=== PATIENT | male | born 1965 | race Caucasian/White ===

== ENCOUNTER 2017-06-01 08:22 | Inpatient (IN) | payer OTHER ==
--- OUTSIDE RECORDS SUMMARY | 2017-06-01 08:24 | XMS REPORT | Clinical Summary ---
:1965 Author Organization [facility] Address [address] [place] [address] Care Team Providers Name Role Phone Asked, No Pcp Primary Care Provider Unavailable Allergies Active Allergy Reactions Severity Noted Date Comments Penicillin Hives 05/24/2017 Sulfa (Sulfonamide Other (See Comments) 05/24/2017 Tongue swelling Antibiotics) Current Medications Prescription Sig. Disp. Refills Start Date End Date Status zolpidem (AMBIEN) 5 Take 5 mg by Active MG tablet mouth nightly as needed for sleep. esomeprazole Take 40 mg by Active (NexIUM) 40 MG mouth daily capsule before breakfast. ferrous sulfate 325 Take 1 tablet 60 tablet 0 05/26/2017 06/25/2017 Active (65 FE) MG tablet (325 mg total) by mouth 2 (two) times a day with meals for 30 days. lisinopril Take 1 tablet 30 tablet 0 05/26/2017 06/25/2017 Active (PRINIVIL,ZESTRIL) (5 mg total) 5 mg tablet by mouth daily for 30 days. QUEtiapine Take 400 mg by 05/26/2017 Discontinued (SEROquel) 300 MG mouth 2 (two) tablet times a day. QUEtiapine Take 200 mg by 05/26/2017 Discontinued (SEROquel) 200 MG mouth nightly. tablet escitalopram Take 20 mg by 05/26/2017 Discontinued (LEXAPRO) 20 MG mouth 2 (two) tablet times a day. busPIRone (BUSPAR) Take 10 mg by 05/26/2017 Discontinued 10 MG tablet mouth 2 (two) times a day. ibuprofen Take 200 mg by 05/26/2017 Discontinued (ADVIL,MOTRIN) 200 mouth every 6 MG tablet (six) hours as needed for mild pain. lisinopril Take 1 tablet 30 tablet 0 05/26/2017 05/26/2017 Discontinued (PRINIVIL,ZESTRIL) (5 mg total) 5 mg tablet by mouth daily for 30 days. ferrous sulfate 325 Take 1 tablet 60 tablet 0 05/26/2017 05/26/2017 Discontinued (65 FE) MG tablet (325 mg total) by mouth 2 (two) times a day with meals for 30 days. Active Problems Problem Noted Date Intentional drug overdose 05/25/2017 Encounters Date Type Specialty Care Team Description 05/29/2017 Emergency Emergency Medicine 05/24/2017 - Emergency General Internal Nik Sandy Intentional drug overdose, initial encounter (Primary Dx); 05/26/2017 Shavonne Campbell MD Anemia of unknown etiology Martina Russell MD after 05/31/2016 Immunizations Name Dates Previously Given Next Due FLUCELVAX QUAD PF (0.5mL syringe) 05/26/2017 Social History Tobacco Use Types Packs/Day Years Used Date Never Assessed Sex Assigned at Date Recorded Not on file Last Filed Vital Signs Vital Sign Reading Time Taken Blood Pressure 112/65 05/29/2017 2:21 AM CDT Pulse 83 05/29/2017 2:21 AM CDT Temperature 36.4 C (97.6 F) 05/29/2017 2:21 AM CDT Respiratory Rate 16 05/29/2017 2:21 AM CDT Oxygen Saturation 100% 05/29/2017 2:21 AM CDT Inhaled Oxygen Concentration - - Weight - - Height 177.8 cm (5' 10") 05/29/2017 2:21 AM CDT Body Mass Index - - Plan of Treatment Not on file Results Total iron binding capacity (05/25/2017 7:25 AM) Component Value Ref Range Iron level 36 (L) 59 - 158 ug/dL Iron binding capacity 331 200 - 400 ug/dL % Saturation 10.9 (L) 20.0 - 40.0 % Specimen Performing Laboratory Plasma specimen [facility] DEPARTMENT OF PATHOLOGY AND GENOMIC MEDICINE [address] [place] [address] Estimated GFR (05/25/2017 7:25 AM)Only the most recent of3 resultswithin the time period is included. Component Value Ref Range GFR Non Af Amer 34 (A) mL/min/1.73 m2 GFR Af Amer 41 (A) mL/min/1.73 m2 Comment: Chronic kidney disease: <60 mL/min/1.73m2 Kidney failure: <15 mL/min/1.73m2 The estimated GFR is calculated from the IDMS-traceable Modification of Diet in Renal Disease Equation. The accuracy of the calculation is poor when the creatinine is normal. Calculated values >90 mL/min/1.73m2 are not reported. This equation has not been validated in children (<18 years), women, the elderly (>70 years), or ethnic groups other than Caucasians and Americans. Specimen Performing Laboratory Plasma specimen [facility] DEPARTMENT OF PATHOLOGY AND GENOMIC MEDICINE [address] [place] [address] CBC with platelet and differential (05/25/2017 7:25 AM)Only the most recent of3 resultswithin the time period is included. Component Value Ref Range WBC 8.89 4.50 - 11.00 k/uL RBC 3.06 (L) 4.40 - 6.00 m/uL HGB 7.8 (L) 14.0 - 18.0 g/dL HCT 25.4 (L) 41.0 - 51.0 % MCV 83.0 82.0 - 100.0 fL MCH 25.5 (L) 27.0 - 34.0 pg MCHC 30.7 (L) 31.0 - 37.0 g/dL RDW - SD 55.4 (H) 37.0 - 55.0 fL MPV 8.8 8.8 - 13.2 fL Platelet count 187 150 - 400 k/uL Nucleated RBC 0.00 /100 WBC Neutrophils 42.5 39.0 - 69.0 % Lymphocytes 48.0 (H) 25.0 - 45.0 % Monocytes 6.9 0.0 - 10.0 % Eosinophils 2.2 0.0 - 5.0 % Basophils 0.2 0.0 - 1.0 % Immature granulocytes 0.2Comment: "Immature granulocytes" 0.0 - 1.0 % (promyelocytes, myelocytes, metamyelocytes) Specimen Performing Laboratory Blood [facility] DEPARTMENT OF PATHOLOGY AND [facility] MEDICINE [address] [place] [id number] Thyroid stimulating hormone (05/25/2017 7:25 AM)Only the most recent of2 resultswithin the time period is included. Component Value Ref Range TSH 1.22 0.27 - 4.20 uIU/mL Specimen Performing Laboratory Plasma specimen [facility] DEPARTMENT OF PATHOLOGY AND GENOMIC MEDICINE [address] [place] [phone] Folate level (05/25/2017 7:25 AM) Component Value Ref Range Folate 3.3 (L) 4.8 - 24.2 ng/mL Specimen Performing Laboratory Serum [facility] DEPARTMENT OF PATHOLOGY AND [address] [address] Ferritin level (05/25/2017 7:25 AM) Component Value Ref Range Ferritin level 18 (L) 30 - 400 ng/mL Specimen Performing Laboratory Plasma specimen [facility] DEPARTMENT OF PATHOLOGY AND [address] [address] Vitamin B12 level (05/25/2017 7:25 AM) Component Value Ref Range Vitamin B12 250 211 - 946 pg/mL Comment: Significant overlap exists between normal and deficiency states. However, most patients with deficiencies will have Serum B12 <200 pg/mL. Specimen Performing Laboratory Serum [facility] DEPARTMENT OF PATHOLOGY AND [address] [address] Acetaminophen level (05/25/2017 7:25 AM)Only the most recent of2 resultswithin the time period is included. Component Value Ref Range Acetaminophen level <15.0 10.0 - 30.0 ug/mL Comment: Therapeutic 10-30 ug/mL Possible Toxicity 150-200 ug/mL Probable Toxicity >200 ug/mL Specimen Performing Laboratory Plasma specimen [facility] PATHOLOGY AND [address] [address] Comprehensive metabolic panel (05/25/2017 7:25 AM)Only the most recent of2 resultswithin the time period is included. Component Value Ref Range Sodium 141 135 - 148 mEq/L Potassium 4.2 3.5 - 5.0 mEq/L Chloride 106 98 - 112 mEq/L CO2 26 24 - 31 mEq/L Anion gap 9 7 - 15 mEq/L Comment: Starting from June , anion gap calculation no longer incorporates potassium. Please note the change. BUN 17 6 - 20 mg/dL Creatinine 2.1 (H) 0.7 - 1.2 mg/dL Glucose 80 65 - 99 mg/dL Calcium 8.8 8.3 - 10.2 mg/dL Protein 5.7 (L) 6.3 - 8.3 g/dL Comment: [place] 4.6-7.0 g/dL 1 week 4.4-7.6 g/dL 7 months-1year5.1-7.3 g/dL 1-2 years5.6-7.5 g/dL >3 years6.0-8.0 g/dL 18-150 6.3-8.3 g/dL Albumin 2.9 (L) 3.5 - 5.0 g/dL A/G ratio 1.0 0.7 - 3.8 Alkaline phosphatase 91 40 - 129 U/L AST 26 10 - 50 U/L ALT 16 5 - 50 U/L Total bilirubin 0.3 0.0 - 1.2 mg/dL Specimen Performing Laboratory Plasma specimen [facility] DEPARTMENT OF PATHOLOGY AND GENOMIC MEDICINE [address] [place] [address] Urinalysis screen and microscopy, with reflex to culture (05/25/2017 4:10 AM) Component Value Ref Range Specimen site Clean catch Color, UA Straw Appearance, UA Clear Specific gravity, UA 1.006 1.001 - 1.035 pH, UA 7.0 5.0 - 8.5 Protein, UA Negative Negative Glucose, UA Negative Negative Ketones, UA Negative Negative Bilirubin, UA Negative Negative Blood, UA Negative Negative Nitrite, UA Negative Negative Urobilinogen, UA <2.0 <2.0 Leukocyte esterase, UA Negative Negative Epithelial cells, UA <1 /HPF WBC, UA 1 0 - 1 /HPF RBC, UA 1 0 - 1 /HPF Bacteria, UA None seen None seen Yeast, UA None seen Yeast with pseudohyphae, UA None seen Specimen Performing Laboratory Urine [facility] DEPARTMENT OF PATHOLOGY AND [facility] MEDICINE [address] [place] [address] Urine drugs of abuse screen (05/25/2017 4:10 AM) Component Value Ref Range Amphetamine screen, urine Negative Barbiturate screen, urine Negative Benzodiazepine screen, urine Negative Cannabinoid screen, urine Negative Cocaine screen, urine Negative Methadone metabolite (EDDP), urine Negative Opiates screen, urine Negative Oxycodone screen, urine Negative Phencyclidine screen, urine Negative Tricyclic screen, urine Negative Comment: Drug screen minimum concentration of detectability [id number] ng/mL Barbiturates 200 ng/mL Htsdqdpthekkxvs690 ng/mL Hvfdovw051 ng/mL Hpbyemjbd669 ng/mL Iybmnel259 ng/mL Pcwpbvsvj600 ng/mL Phencyclidine 25 ng/mL Xcvvkzvxunct74 ng/mL Necsfsemyg2621 ng/mL Negative test results indicates presumptive evidence of lack of clinically significant drug concentration in this urine specimen. Positive test results are presumptive evidence of clinically significant drug concentration in this urine specimen. Testing performed for medical purposes only. Specimen Performing Laboratory Urine [facility] DEPARTMENT PATHOLOGY AND [address] [address] Urine culture (05/25/2017 4:10 AM) Component Value Ref Range Urine culture SEE COMMENTComment: Bacteriuria screen negative. Specimen Performing Laboratory [facility] PATHOLOGY AND [address] [address] Basic metabolic panel (05/25/2017 4:10 AM) Component Value Ref Range Sodium 140 135 - 148 mEq/L Potassium 4.2 3.5 - 5.0 mEq/L Chloride 105 98 - 112 mEq/L CO2 24 24 - 31 mEq/L Anion gap 11 7 - 15 mEq/L Comment: Starting from June , anion gap calculation no longer incorporates potassium. Please note the change. BUN 18 6 - 20 mg/dL Creatinine 2.0 (H) 0.7 - 1.2 mg/dL Glucose 79 65 - 99 mg/dL Calcium 8.9 8.3 - 10.2 mg/dL Specimen Performing Laboratory Plasma specimen [facility] PATHOLOGY [address] [address] Troponin (05/24/2017 11:30 PM) Component Value Ref Range Troponin <0.30 0.00 - 0.30 ng/mL Comment: 0.30 - 1.49 ng/mlMay indicate increased risk of acute coronary syndrome. >=1.5 ng/mlConsistent with acute myocardial infarction. The diagnostic value of a single normal or non-diagnostic result is questionable.Serial samples at 2-6 hour intervals are required to rule out acute myocardial injury. Specimen Performing Laboratory Plasma specimen [facility] DEPARTMENT OF PATHOLOGY AND [address] [address] Partial thromboplastin time, activated (05/24/2017 11:30 PM) Component Value Ref Range PTT 23.5 23.0 - 36.0 sec Comment: PTT therapeutic range for unfractionated heparin is 61.0-112.0 seconds which corresponds to Anti-Xa 0.3-0.7 U/ml. Specimen Performing Laboratory Blood [facility] PATHOLOGY [address] [address] Prothrombin time with INR (05/24/2017 11:30 PM) Component Value Ref Range Prothrombin time 13.0 12.0 - 15.0 sec INR 1.0 Comment: The International Normalized Ratio (INR) is a therapeutic monitoring tool for patients who are stable on oral anticoagulant therapy. An INR of 2.0-3.0 is suggested for deep vein thrombosis/pulmonary embolism. Specimen Performing Laboratory Blood [facility] DEPARTMENT OF PATHOLOGY AND [facility] MEDICINE [address] [place] [address] Alcohol level, blood (05/24/2017 11:30 PM) Component Value Ref Range Alcohol None Detected mg/dL Comment: Normal None Detected Legal Intoxication in [place]80 mg/dL (0.08%) - Whole Blood Toxic Xhxijnvlatweh499 mg/dL (0.2%) Potentially Jlbdv665 - 500 mg/dL (0.35 - 0.5%) Alcohol percent None Detected % Specimen Performing Laboratory Plasma specimen [facility] DEPARTMENT OF PATHOLOGY AND GENOMIC MEDICINE [address] [place] [address] Salicylate level (05/24/2017 11:30 PM) Component Value Ref Range Salicylate <3.0 3.0 - 30.0 mg/dL Specimen Performing Laboratory Plasma specimen [facility] DEPARTMENT OF PATHOLOGY AND GENOMIC MEDICINE [address] [place] [address] ECG 12 lead (05/24/2017 11:05 PM) Component Value Ref Range Ventricular rate 80 Atrial rate 80 [place] interval 190 QRSD interval 84 QT interval 374 QTC interval 431 P axis 1 33 QRS axis 1 -31 T wave axis 21 EKG impression Normal sinus rhythm-Left axis deviation-Low voltage QRS-Borderline ECG-- Specimen Performing Laboratory [facility] MUSE [address] [place] [address] after 05/31/2016 Insurance Payer Benefit Plan / Group Subscriber ID Type Phone Address MEDICARE MEDICARE PART A AND B xxxxxxxxxx Medicare [place], [place] Home: [address] [place] [phone] [place], [place] [id number]
--- NOTE | 2017-06-01 09:52 | RAD REPORT ---
EXAM DESCRIPTION: VAS - Extremity Venous Uni Ltd - 06/01/2017 9:34 am CLINICAL HISTORY: Right lower extremity pain and swelling COMPARISON: None. TECHNIQUE: Real-time sonographic evaluation of the right lower extremity deep venous systems was per formed. FINDINGS: Common femoral vein shows no thrombus within the lumen. Doppler evaluation shows a normal blood flow pattern with good compression. Echogenic material is present in the femoral vein with inco mplete compression. Popliteal vein and ankle veins on the right show good compression. No additional area of thrombus. Interstitial edema is identifiable. No abscess or drainable fluid collection. IMPRESSION: Acute deep venous thrombosis partially occluding the right femoral vein.
--- NOTE | 2017-06-01 09:55 | RAD REPORT ---
EXAM DESCRIPTION: VAS - Lower Extremity Arterial Bilat - 06/01/2017 9:43 am CLINICAL HISTORY: Leg pain and swelling COMPARISON: None. TECHNIQUE: Waveforms were obtained along the length of each lower extremity. Visual inspection of th e lower extremity arterial tree performed. FINDINGS: A predominantly monophasic waveform pattern is seen throughout the right lower extremity. Soft plaquing changes are present in the right common femoral artery partially narrowing the vessel l umen. The right common femoral artery monophasic waveform pattern was seen proximal to this soft plaq uing. This could indicate significant iliac flow restricting lesion. Left lower extremity shows a triphasic waveform pattern from groin to ankle. No focal stenosis, occlu nahum or flow restricting lesion. Right lower extremity peak systolic velocity values are not substantially different from the left low er extremity. Overall values are diminished relative to the left. IMPRESSION: Right lower extremity monophasic waveform pattern with significant right femoral artery plaquing change. Right leg findings suggest significant right-sided iliac disease as well as the common femoral diseas e. No significant left lower extremity peripheral vascular disease.
--- NOTE | 2017-06-01 10:09 | RAD REPORT ---
EXAM DESCRIPTION: RAD - Chest Single View - 06/01/2017 10:00 am CLINICAL HISTORY: Leg pain and swelling, right leg thrombus COMPARISON: None. TECHNIQUE: AP portable chest image was obtained 0951 hours . FINDINGS: Lungs are clear. Heart and vasculature are normal. No measurable pleural effusion and no p neumothorax. No acute bone findings seen. Right convex thoracic curvature may be true scoliosis or po sitioning artifact. No acute aortic findings suspected. IMPRESSION: No acute cardiopulmonary process.
[2017-06-01 10:20] LABS: Absolute Lymphocytes (CBC) 2.7 K/uL (0.7-4.9); Absolute Monocytes 0.6 K/uL (0.1-1.3); Absolute Neutrophil 5.9 K/uL (1.8-8.0); Basophils % 0.5 % (0-1.3); Eosinophils % 2.4 % (0-4.4); Hematocrit 24.5 % (39.6-49.0); Lymphocytes % 28.3 % (15.3-44.8); MCH 25.9 pg (27.0-35.0); MCV 79.7 fL (80-100); Monocytes % 6.4 % (3.3-12.3); RBC Red Blood Cell Count 3.08 M/uL (4.33-5.43)
[2017-06-01 10:24] LABS: Protime INR 0.91
[2017-06-01 10:28] LABS: Potassium 4.1 mEq/L (3.6-5.0)
[2017-06-01 10:34] LABS: Albumin 3.5 g/dL (3.2-5.5); Bilirubin Direct 0.1 mg/dL (0-0.2); Bilirubin Total 0.5 mg/dL (0.3-1.2); Magnesium 1.6 mg/dL (1.8-2.5)
[2017-06-01 11:00] LABS: Urine Blood NEGATIVE (NEG); Urine Glucose NEGATIVE (NEG); Urine Protein NEGATIVE (NEG)
[2017-06-01] MEDS ORDERED: ENOXAPARIN 40 MG/0.4 ML SQ ONE (11:10)
[2017-06-01] MEDS ORDERED: MAGNESIUM SULFATE 1 gm IVPB 1 GM/100 ML BAG IV ONE ×2 (11:11→17:31)
--- NOTE | 2017-06-01 13:27 | EDPHYS ---
Physician Documentation [facility] Name: Jeovany Buckley Age: 51 yrs Sex: Male : 1965 Arrival Date: 06/01/2017 Time: 08:23 Bed 15 Private MD: ED Physician Octavio Malcolm HPI: 06/01 08:37 This 51 yrs old Male presents to ER via Ambulatory with complaints of Leg cp Swelling. 08:37 The patient presents with swelling, tenderness. The complaints affect the right lower cp leg. 08:37 Context: the patient can fully bear weight, the patient is able to ambulate, with mild cp difficulty. Onset: The symptoms/episode began/occurred 1 week(s) ago. 08:37 Associated signs and symptoms: Pertinent positives: calf tenderness, swelling, cp increased pain with walking, pain improved with rest, Pertinent negatives fever, numbness, warmth, weakness. Treatment prior to arrival includes: no previous treatment. Historical: - Allergies: 08:44 PENICILLINS; tw2 08:44 Sulfa (Sulfonamide Antibiotics); tw2 - Home Meds: 08:44 Lexapro 20 mg Oral tab 1 tab once daily [Active]; tw2 08:57 lisinopril 5 mg Oral tab 1 tab once daily [Active]; buspirone 10 mg Oral tab 1 tab 2 tw2 times per day [Active]; - PMHx: 08:44 Bipolar disorder; Renal Disease; [place]'s Disease; tw2 08:57 Hypertension; tw2 - PSHx: 08:44 None; tw2 - Immunization history:: Adult Immunizations unknown. - Social history:: Smoking status: Patient uses tobacco products, smokes one-half pack cigarettes per day. ROS: 08:41 Eyes: Negative for injury, pain, redness, and discharge. cp 08:41 Constitutional: Negative for body aches, chills, fever, poor PO intake. 08:41 ENT: Negative for drainage from ear(s), ear pain, sore throat, difficulty swallowing, difficulty handling secretions. 08:41 Cardiovascular: Negative for chest pain, palpitations. 08:41 Respiratory: Negative for cough, shortness of breath, wheezing. 08:41 Abdomen/GI: Negative for abdominal pain, nausea, vomiting, and diarrhea. 08:41 Back: Negative for pain at rest, pain with movement, radiated pain. 08:41 MS/extremity: Positive for swelling, tenderness, of the right lower leg, Negative for injury or acute deformity. 08:41 Skin: Negative for discoloration, erythema. 08:41 Neuro: Negative for altered mental status, headache, syncope, near syncope, weakness. 08:41 All other systems are negative. Exam: 08:45 Constitutional: The patient appears in no acute distress, alert, awake, cp non-diaphoretic, non-toxic, well developed, well nourished. 08:45 Head/Face: Normocephalic, atraumatic. Eyes: Pupils equal round and reactive to light, cp extra-ocular motions intact. Lids and lashes normal. Conjunctiva and sclera are non-icteric and not injected. Cornea within normal limits. Periorbital areas with no swelling, redness, or edema. ENT: Nares patent. No nasal discharge, no septal abnormalities noted. Tympanic membranes are normal and external auditory canals are clear. Oropharynx with no redness, swelling, or masses, exudates, or evidence of obstruction, uvula midline. Mucous membranes moist. Neck: Trachea midline, no thyromegaly or masses palpated, and no cervical lymphadenopathy. Supple, full range of motion without nuchal rigidity, or vertebral point tenderness. No Meningismus. Chest/axilla: Normal chest wall appearance and motion. Nontender with no deformity. No lesions are appreciated. 08:45 Cardiovascular: Rate: normal, Rhythm: regular, JVD: is not appreciated. 08:45 Respiratory: the patient does not display signs of respiratory distress, Respirations: normal, no use of accessory muscles, no retractions, no splinting, no tachypnea, labored breathing, is not present, Breath sounds: are clear throughout, no decreased breath sounds, no stridor, no wheezing. 08:45 Abdomen/GI: Inspection: abdomen appears normal, Bowel sounds: active, all quadrants, Palpation: abdomen is soft and non-tender, in all quadrants, Rectal exam: Stool: brown, guaiac negative. 08:45 Back: pain, is absent, ROM is normal. 08:45 Musculoskeletal/extremity: Extremities: grossly normal except: noted in the right lower leg: pain, swelling, tenderness, There is no evidence of deformity. 08:45 Skin: cellulitis, is not appreciated, no rash present. 08:45 Neuro: Orientation: to person, place \T\ time. Mentation: lucid, able to follow commands, Cerebellar function: is grossly normal, Motor: moves all fours, strength is normal, Sensation: no obvious gross deficits. 10:00 ECG was reviewed by the Attending Physician. cp Vital Signs: 08:37 BP 115 / 76; Pulse 99; Resp 17; Temp 98.5(O); Pulse Ox 98% on R/A; Weight 83.01 kg (R); tw2 Height 5 ft. 9 in. (175.26 cm) (R); Pain 10/10; 09:27 BP 111 / 74; Pulse 87; Resp 17; Pulse Ox 100% on R/A; tw2 10:08 BP 112 / 69; Pulse 79; Resp 17; Pulse Ox 100% ; tw2 11:03 BP 105 / 71; Pulse 79; Resp 18; Pulse Ox 100% on R/A; tw2 12:05 BP 101 / 62; Pulse 80; Resp 18; Pulse Ox 100% on R/A; tw2 13:05 BP 104 / 69; Pulse 76; Resp 17; Pulse Ox 98% on R/A; tw2 14:05 BP 106 / 70; Pulse 79; Resp 16; Pulse Ox 98% on R/A; tw2 08:37 Body Mass Index 27.02 (83.01 kg, 175.26 cm) tw2 MDM: 08:27 Patient medically screened. cp 08:38 Differential diagnosis: DVT, cellulitis, dependent edema. cp 10:45 Data reviewed: vital signs, nurses notes, lab test result(s), EKG, radiologic studies, cp doppler, plain films. 11:39 Physician consultation: Tessy Russell MD was called at 11:39, left message on voicemail.cp 06/01 09:43 Order name: Basic Metabolic Panel cp 06/01 09:43 Order name: BNP cp 06/01 09:43 Order name: CBC with Diff cp 06/01 09:43 Order name: LFT's cp 06/01 09:43 Order name: Magnesium cp 06/01 09:43 Order name: PT-INR cp 06/01 09:43 Order name: Ptt, Activated cp 06/01 10:21 Order name: CBC with Automated Diff; Complete Time: 10:23 EDMS 06/01 10:24 Interpretation: Normal except: RBC 3.08; HGB 8.0; HCT 24.5; MCV 79.7; MCH 25.9; RDW cp 19.9; MPV 7.0. 06/01 10:24 Order name: Protime (+INR); Complete Time: 10:25 EDMS 06/01 10:25 Interpretation: Within normal limits. cp 06/01 10:24 Order name: PTT, Activated Partial Thromb; Complete Time: 10:25 EDMS 06/01 10:25 Interpretation: Within normal limits. cp 06/01 10:28 Order name: Basic Metabolic Panel; Complete Time: 10:42 EDMS 06/01 10:43 Interpretation: Normal except: CA 8.2; BUN 26; CRE 1.94; GFR 37. 06/01 10:34 Order name: Liver (Hepatic) Function; Complete Time: 10:42 EDMS 06/01 10:34 Order name: Magnesium; Complete Time: 10:42 EDMS 06/01 10:43 Interpretation: Abnormal: MG 1.6. 06/01 10:51 Order name: Urine Dipstick--Ancillary (enter results) bd 06/01 08:38 Order name: Extremity Venous Uni Ltd cp 06/01 09:00 Order name: Lower Extremity (Artery Uni Ltd) cp 06/01 09:43 Order name: XRAY Chest (1 view) 06/01 09:43 Order name: EKG; Complete Time: 09:44 06/01 09:43 Order name: Cardiac monitoring; Complete Time: 10:14 06/01 09:43 Order name: EKG - Nurse/Tech; Complete Time: 10:14 06/01 09:43 Order name: IV Saline Lock; Complete Time: 10:12 06/01 09:43 Order name: Labs collected and sent; Complete Time: 10:12 06/01 09:43 Order name: O2 Per Protocol; Complete Time: 10:12 06/01 09:52 Order name: VAS; Complete Time: 10:09 EDMS 06/01 09:55 Order name: VAS; Complete Time: 10:09 EDMS 06/01 12:51 Interpretation: Report reviewed. 06/01 10:09 Order name: RAD; Complete Time: 10:23 EDMS 06/01 11:00 Order name: Urine Dipstick-Ancillary; Complete Time: 12:45 EDMS 06/01 11:11 Order name: BNP B-Type Natriuretic Peptide; Complete Time: 12:45 EDMS 06/01 09:43 Order name: O2 Sat Monitoring; Complete Time: 10:12 cp 06/01 09:43 Order name: Urine Dipstick-Ancillary (obtain specimen); Complete Time: 11:05 cp EC:00 Rate is 86 beats/min. Rhythm is regular. AK interval is normal. QRS interval is normal. cp QT interval is normal. No ST changes noted. Interpreted by me. Reviewed by me. Administered Medications: 10:56 Drug: Magnesium Sulfate 1 grams Route: IVPB; Infused Over: 1 hrs; Site: right tw2 antecubital; 11:58 Follow up: Response: No adverse reaction; IV Status: Completed infusion tw2 10:56 Drug: Lovenox 0.5 mg/kg Route: Sub-Q; Site: right lower abdomen; tw2 11:56 Follow up: Response: No adverse reaction tw2 Disposition: 06/01/17 13:25 Hospitalization ordered by Tessy Russell for Observation. Preliminary diagnosis is Acute embolism and thrombosis of femoral vein - Right. - Bed requested for Telemetry/MedSurg (observation). - Status is Observation. tw2 - Condition is Stable. - Problem is new. - Symptoms are unchanged. UTI on Admission? No Addendum: 06/04/2017 19:15 Co-signature as Attending Physician, Octavio Malcolm MD I agree with the assessment and w a plan of care. Signatures: Dispatcher [employer] EDAL Janneth Hermosillo Corey, PA PA cp Wise, Tara, JOSSELINE RN tw2 Octavio Malcolm MD MD va
--- NOTE | 2017-06-01 13:27 | ER ---
Nurse's Notes [facility] Name: Jeovany Buckley Age: 51 yrs Sex: Male : 1965 Arrival Date: 06/01/2017 Time: 08:23 Bed 15 Private MD: Diagnosis: Acute embolism and thrombosis of femoral vein-Right Presentation: 06/01 08:34 Presenting complaint: Patient states: i have been having leg swelling, right leg, for a tw2 bout a week and a half, i have been walking a lot. Transition of care: pt is homeless and has shopping cart with his belongings in the cart with multiple bags hanging off the cart. Onset of symptoms was May 25, 2017. Care prior to arrival: None. 08:34 Method Of Arrival: Ambulatory tw2 08:34 Acuity: JED 3 tw2 Historical: - Allergies: 08:44 PENICILLINS; tw2 08:44 Sulfa (Sulfonamide Antibiotics); tw2 - Home Meds: 08:44 Lexapro 20 mg Oral tab 1 tab once daily [Active]; tw2 08:57 lisinopril 5 mg Oral tab 1 tab once daily [Active]; buspirone 10 mg Oral tab 1 tab 2 tw2 times per day [Active]; - PMHx: 08:44 Bipolar disorder; Renal Disease; [place]'s Disease; tw2 08:57 Hypertension; tw2 - PSHx: 08:44 None; tw2 - Immunization history:: Adult Immunizations unknown. - Social history:: Smoking status: Patient uses tobacco products, smokes one-half pack cigarettes per day. Screenin:53 Abuse screen: Denies threats or abuse. Nutritional screening: No deficits noted. tw2 Tuberculosis screening: No symptoms or risk factors identified. Fall Risk None identified. Assessment: 08:50 Reassessment: pts shopping basket with all belongings locked in utility room, pt tw2 agreeable to this plan. 08:52 General: Appears in no apparent distress. unkempt, Behavior is calm, cooperative, tw2 appropriate for age. Pain: Complains of pain in right celis, anterior aspect of right ankle and dorsum of right foot. Neuro: Level of Consciousness is awake, alert, obeys commands, Oriented to person, place, time, situation. Cardiovascular: Denies chest pain, shortness of breath, Heart tones S1 S2 Capillary refill < 3 seconds Patient's skin is warm and dry. Cardiovascular: Edema is 2+ to right midcalf and right ankle. Respiratory: Airway is patent Respiratory effort is even, unlabored, Respiratory pattern is regular, symmetrical, Breath sounds are clear bilaterally. GI: No signs and/or symptoms were reported involving the gastrointestinal system. Abdomen is flat, Bowel sounds present X 4 quads. : No signs and/or symptoms were reported regarding the genitourinary system. EENT: No signs and/or symptoms were reported regarding the EENT system. Derm: No signs and/or symptoms reported regarding the dermatologic system. Skin is intact, is healthy with good turgor, Skin temperature is warm. Musculoskeletal: No signs and/or symptoms reported regarding the musculoskeletal system. Range of motion: intact in all extremities. 09:27 Reassessment: Patient appears in no apparent distress at this time. No changes from tw2 previously documented assessment. Patient and/or family updated on plan of care and expected duration. Pain level reassessed. Patient is alert, oriented x 3, equal unlabored respirations, skin warm/dry/pink. 10:09 Reassessment: Patient appears in no apparent distress at this time. No changes from tw2 previously documented assessment. Patient and/or family updated on plan of care and expected duration. Pain level reassessed. Patient is alert, oriented x 3, equal unlabored respirations, skin warm/dry/pink. 11:04 Reassessment: Patient appears in no apparent distress at this time. No changes from tw2 previously documented assessment. Patient and/or family updated on plan of care and expected duration. Pain level reassessed. Patient is alert, oriented x 3, equal unlabored respirations, skin warm/dry/pink. 12:05 Reassessment: Patient appears in no apparent distress at this time. No changes from tw2 previously documented assessment. Patient and/or family updated on plan of care and expected duration. Pain level reassessed. Patient is alert, oriented x 3, equal unlabored respirations, skin warm/dry/pink. 13:05 Reassessment: Patient appears in no apparent distress at this time. No changes from tw2 previously documented assessment. Patient and/or family updated on plan of care and expected duration. Pain level reassessed. Patient is alert, oriented x 3, equal unlabored respirations, skin warm/dry/pink. 14:31 Reassessment: Patient appears in no apparent distress at this time. No changes from tw2 previously documented assessment. Patient and/or family updated on plan of care and expected duration. Pain level reassessed. Patient is alert, oriented x 3, equal unlabored respirations, skin warm/dry/pink. pt appears to be sleeping at this time. Vital Signs: 08:37 BP 115 / 76; Pulse 99; Resp 17; Temp 98.5(O); Pulse Ox 98% on R/A; Weight 83.01 kg (R); tw2 Height 5 ft. 9 in. (175.26 cm) (R); Pain 10/10; 09:27 BP 111 / 74; Pulse 87; Resp 17; Pulse Ox 100% on R/A; tw2 10:08 BP 112 / 69; Pulse 79; Resp 17; Pulse Ox 100% ; tw2 11:03 BP 105 / 71; Pulse 79; Resp 18; Pulse Ox 100% on R/A; tw2 12:05 BP 101 / 62; Pulse 80; Resp 18; Pulse Ox 100% on R/A; tw2 13:05 BP 104 / 69; Pulse 76; Resp 17; Pulse Ox 98% on R/A; tw2 14:05 BP 106 / 70; Pulse 79; Resp 16; Pulse Ox 98% on R/A; tw2 08:37 Body Mass Index 27.02 (83.01 kg, 175.26 cm) tw2 ED Course: 08:23 Patient arrived in ED. as 08:27 Kevin Jeff PA is PHCP. cp 08:27 Octavio Malcolm MD is Attending Physician. cp 08:33 Selam Adam, JOSSELINE is Primary Nurse. tw2 08:37 Triage completed. tw2 08:44 Arm band placed on. tw2 08:44 Bed in low position. Call light in reach. Pulse ox on. NIBP on. tw2 08:54 No provider procedures requiring assistance completed. tw2 09:35 Ultrasound completed. Patient tolerated well. Note: us done portable/bedside. lc3 09:54 X-ray completed. Portable x-ray completed in exam room. Patient tolerated procedure ml well. 10:00 EKG done, by retail maintenance technician. reviewed by Kevin GLASER. at1 10:10 Inserted saline lock: 20 gauge in right antecubital area, using aseptic technique. tw2 ,using aseptic technique. per Alexandr Alanis Blood collected. 11:48 Urine Dipstick--Ancillary (enter results) Sent. tw2 11:48 Basic Metabolic Panel Sent. tw2 11:48 BNP Sent. tw2 11:49 CBC with Diff Sent. tw2 11:49 LFT's Sent. tw2 11:49 Magnesium Sent. tw2 11:49 PT-INR Sent. tw2 11:49 Ptt, Activated Sent. tw2 13:24 Tessy Russell MD is Hospitalizing Provider. cp 14:42 Patient admitted, IV remains in place. tw2 Administered Medications: 10:56 Drug: Magnesium Sulfate 1 grams Route: IVPB; Infused Over: 1 hrs; Site: right tw2 antecubital; 11:58 Follow up: Response: No adverse reaction; IV Status: Completed infusion tw2 10:56 Drug: Lovenox 0.5 mg/kg Route: Sub-Q; Site: right lower abdomen; tw2 11:56 Follow up: Response: No adverse reaction tw2 Output: 10:47 Urine: 550ml (Voided); Total: 550ml. tw2 Outcome: 13:25 Decision to Hospitalize by Provider. cp 14:42 Admitted to Med/surg accompanied by nurse, accompanied by tech, via stretcher, room tw2 211, Other with pts personal belongings that are in a shopping cart Report called to JOSSELINE Wall 14:42 Condition: stable 14:42 Instructed on the need for admit. 15:02 Patient left the ED. tw2 Signatures: Lilly Elizabeth Melissa ml gonzales, Amanda, talent development analyst EKG Tat1 Kevin Jeff PA PA cp Shirley Morton Tara, RN RN tw2
--- NOTE | 2017-06-01 14:05 | EKG ---
Test Date: 2017-06-01 Test Time: 09:53:26 Curtain Cleaner: BIMAL MEASUREMENT RESULTS: Intervals: Rate: 86 FL: 174 QRSD: 74 QT: 356 QTc: 426 [place]: P: 12 FL: 174 QRS: -43 T: 24 INTERPRETIVE STATEMENTS: Normal sinus rhythm Left axis deviation Low voltage QRS Abnormal ECG No previous ECG available for comparison Electronically Signed On 06-01-17 14:03:48 CDT by Melvin Roa
[2017-06-01] MEDS ORDERED: ONDANSETRON 4 MG (ODT) TAB PO PRN (15:03)
[2017-06-01 15:36] VITALS: BMI 26.6
--- NOTE | 2017-06-01 17:18 | P.HP ---
Certification for Inpatient Patient admitted to: Observation With expected LOS: <2 Midnights Patient will require the following post-hospital care: None Practitioner: I am a practitioner with admitting privileges, knowledge of patient current condition, hospital course, and medical plan of care. Services: Services provided to patient in accordance with Admission requirements found in Title 42 Section 412.3 of the Code of Federal Regulations Patient History Date of Service: 06/01/17 Primary Care Provider: OOT Reason for admission: leg swelling History of Present Illness: A 51-year-old male with significant past medical history of Kaveh's disease , hypertension, renal disease who presented to the ED complaining of having some right leg pain along with swelling. Patient noted that he is having intermittent claudication like symptoms for about 1-2 weeks and has getting progressively worse. He started noticing that he had some swelling this morning and thus decided to come to the ER. Patient is from [place] and states that he moved here in 2017. He has not establish care with PCP here or does not see anyone regularly either. In ED U/S of the lower extremity was done which was positive for DVT. Allergies Penicillins Adverse Reaction (Verified 06/01/17 13:32) Anaphylaxis Sulfa (Sulfonamide Antibiotics) Adverse Reaction (Verified 06/01/17 13:32) Anaphylaxis Home Medications: Buspirone HCl [Buspar] 10 mg PO BID 06/01/17 Escitalopram [Lexapro*] 20 mg PO BID 06/01/17 Esomeprazole Mag Trihydrate [Nexium] 40 mg PO DAILY 06/01/17 Lisinopril 5 mg PO DAILY 06/01/17 Quetiapine Fumarate [Seroquel] 800 mg PO DAILY 06/01/17 Trazodone [Desyrel] 100 mg PO DAILY 06/01/17 - Past Medical/Surgical History Has patient received pneumonia vaccine in the past: No -: Bipolar Disorder -: Renal Disease -: [place]'s Disease -: Hypertension - Social History Smoking Status: Current every day smoker Review of Systems General: As per HPI Physical Examination - Vital Signs Temperature: 98.5 F Blood Pressure: 106/70 Pulse: 79 Respirations: 16 - Physical Exam General: Alert, In no apparent distress, Oriented x3 HEENT: Atraumatic, PERRLA, Mucous membr. moist/pink, EOMI, Sclerae nonicteric Neck: Supple, 2+ carotid pulse no bruit, No LAD, Without JVD or thyroid abnormality Respiratory: Clear to auscultation bilaterally, Normal air movement Cardiovascular: Regular rate/rhythm, Normal S1 S2 Gastrointestinal: Normal bowel sounds, No tenderness Musculoskeletal: Swelling, Erythema, Tenderness, Warmth, Other (Right leg ) Integumentary: No rashes Neurological: Normal gait, Normal speech, Normal strength at 5/5 x4 extr, Normal tone, Normal affect Lymphatics: No axilla or inguinal lymphadenopathy - Studies Laboratory Data (last 24 hrs) 06/01/17 10:05: PT 10.7, INR 0.91, APTT 24.8 06/01/17 10:05: WBC 9.4, Hgb 8.0 L, Hct 24.5 L, Plt Count 220 06/01/17 10:05: B-Natriuretic Peptide 35 06/01/17 10:05: Sodium 139, Potassium 4.1, BUN 26 H, Creatinine 1.94 H, Glucose 99, Magnesium 1.6 L, Total Bilirubin 0.5, AST 20, ALT 16, Alkaline Phosphatase 84 Assessment and Plan - Problems (Diagnosis) (1) Right leg DVT Current Visit: Yes Status: Acute Plan: Right Femoral Vein DVT -WB lovenox for now -IV abx for possible infection -Elevated the leg Qualifiers: Affected thrombotic vein of extremity: femoral Chronicity: acute Qualified Code(s): I82.411 - Acute embolism and thrombosis of right femoral vein (2) PAD (peripheral artery disease) Current Visit: Yes Status: Acute Plan: Sever PAD noted in the right leg with intermitted Claudication -Anticoagulation with Lovenox for now -Will need to f/u with Vascular Surgeon OP for further care. (3) HTN (hypertension) Current Visit: Yes Status: Chronic Qualifiers: Hypertension type: essential hypertension Qualified Code(s): I10 - Essential (primary) hypertension (4) [place] disease Current Visit: Yes Status: Chronic Discharge Plan: Home Plan to discharge in: 48 Hours - Advance Directives Does patient have a Living Will: No Does patient have a Durable POA for Healthcare: No - Code Status/Comfort Care Code Status Assessed: Yes Critical Care: No
[2017-06-01 19:00] LABS: Urine Appearance CLEAR; Urine Bilirubin NEGATIVE (NEG); Urine Blood NEGATIVE (NEG); Urine Color YELLOW; Urine Glucose NEGATIVE (NEG); Urine Protein NEGATIVE (NEG); Urine Specific Gravity <=1.005 (1.005-1.030); Urine Urobilinogen 0.2 mg/dL (0.2-1.0)
[2017-06-01 19:07] LABS: Urine Microscopic Reflex NO UMIC
[2017-06-01] MEDS ORDERED: HOME MED 1 EA UNK (Buspirone Hcl [Buspar] 10 MG) PO SCH (21:00)
[2017-06-01] MEDS: ESCITALOPRAM 20 MG TAB PO SCH (22:02)
[2017-06-01] MEDS: BUSPIRONE HCL 5 MG TABLET PO SCH (22:02)
[2017-06-01] MEDS: ENOXAPARIN 80 MG/0.8 ML SQ SCH (22:03)
[2017-06-02 05:39] LABS: Absolute Lymphocytes (CBC) 3.3 K/uL (0.7-4.9); Absolute Monocytes 0.5 K/uL (0.1-1.3); Basophils % 0.5 % (0-1.3); Eosinophils % 3.2 % (0-4.4); Lymphocytes % 46.4 % (15.3-44.8); MCH 25.9 pg (27.0-35.0); MCV 81.2 fL (80-100); MPV 7.5 fL (7.6-11.3); Monocytes % 7.4 % (3.3-12.3); RBC Red Blood Cell Count 3.07 M/uL (4.33-5.43)
[2017-06-02 05:44] LABS: Albumin 3.3 g/dL (3.2-5.5); Bilirubin Total 0.6 mg/dL (0.3-1.2); Magnesium 2.3 mg/dL (1.8-2.5); Phosphorus 4.2 mg/dL (2.5-4.3); Potassium 4.8 mEq/L (3.6-5.0); Protein, Total 5.5 g/dL (6.0-8.3)
[2017-06-02] MEDS: PANTOPRAZOLE 40MG TABLET PO SCH (06:34)
[2017-06-02 07:01] LABS: Anisocytosis 1+; Blood Morphology Comment NOTED (NOT SEEN); Macrocytosis SLIGHT; Ovalocytes 1+; Platelet Estimate ADEQ
[2017-06-02] MEDS: ENOXAPARIN 80 MG/0.8 ML SQ SCH ×3 (09:00→20:31)
[2017-06-02] MEDS ORDERED: QUETIAPINE FUMARATE 800 MG PO SCH (09:00)
[2017-06-02] MEDS ORDERED: HOME MED 1 EA UNK (Esomeprazole Mag Trihydrate [Nexium] 40 MG) PO SCH (09:00)
[2017-06-02] MEDS ORDERED: QUETIAPINE 100MG TAB PO SCH (09:00)
[2017-06-02] MEDS: BUSPIRONE HCL 5 MG TABLET PO SCH ×2 (09:47→20:31)
[2017-06-02] MEDS: ESCITALOPRAM 20 MG TAB PO SCH ×2 (09:47→20:31)
[2017-06-02] MEDS: LISINOPRIL 5 MG TAB PO SCH (09:47)
--- NOTE | 2017-06-02 16:28 | P.PN ---
Subjective Date of Service: 06/02/17 Primary Care Provider: STAN Chief Complaint: leg swelling Pt seen and examined at bedside with RN. Case discussed with CM. No c/o overnight. Has been doing well overall. Review of Systems 10-point ROS is otherwise unremarkable Physical Examination - Vital Signs Temperature: 97.6 F Blood Pressure: 110/56 Pulse: 75 Respirations: 18 Pulse Ox (%): 100 - Physical Exam General: Alert, In no apparent distress, Oriented x3 HEENT: Atraumatic, PERRLA, EOMI Neck: Supple, JVD not distended Respiratory: Clear to auscultation bilaterally, Normal air movement Cardiovascular: Regular rate/rhythm, Normal S1 S2 Gastrointestinal: Normal bowel sounds, No tenderness Musculoskeletal: No tenderness Integumentary: No rashes Neurological: Normal speech, Normal tone, Normal affect Lymphatics: No axilla or inguinal lymphadenopathy - Studies Medications List Reviewed: Yes Assessment & Plan - Problems (Diagnosis) (1) Right leg DVT Onset Date: 06/02/17 Current Visit: Yes Status: Acute Plan: Right Femoral Vein DVT -WB lovenox for now -Coumadin started. Qualifiers: Affected thrombotic vein of extremity: femoral Chronicity: acute Qualified Code(s): I82.411 - Acute embolism and thrombosis of right femoral vein (2) PAD (peripheral artery disease) Onset Date: 06/02/17 Current Visit: Yes Status: Acute Plan: Sever PAD noted in the right leg with intermitted Claudication -Anticoagulation with Lovenox for now -Will need to f/u with Vascular Surgeon OP for further care. (3) HTN (hypertension) Onset Date: 06/02/17 Current Visit: Yes Status: Chronic Qualifiers: Hypertension type: essential hypertension Qualified Code(s): I10 - Essential (primary) hypertension (4) [place] disease Onset Date: 06/02/17 Current Visit: Yes Status: Chronic Discharge Plan: Home Plan to discharge in: 48 Hours - Code Status/Comfort Care Code Status Assessed: Yes Critical Care: No
[2017-06-02] MEDS: WARFARIN SODIUM 2.5 MG TAB PO SCH (17:12)
[2017-06-02] MEDS: QUETIAPINE 100MG TAB PO SCH (20:31)
[2017-06-03 05:23] LABS: Absolute Lymphocytes (CBC) 3.5 K/uL (0.7-4.9); Absolute Monocytes 0.4 K/uL (0.1-1.3); Absolute Neutrophil 2.9 K/uL (1.8-8.0); Basophils % 0.3 % (0-1.3); Eosinophils % 2.2 % (0-4.4); Hematocrit 25.8 % (39.6-49.0); Lymphocytes % 49.6 % (15.3-44.8); MCH 25.6 pg (27.0-35.0); MCV 81.3 fL (80-100); MPV 7.4 fL (7.6-11.3); Monocytes % 6.1 % (3.3-12.3); RBC Red Blood Cell Count 3.17 M/uL (4.33-5.43)
[2017-06-03 05:27] LABS: Protime INR 1.02
[2017-06-03 05:45] LABS: Albumin 3.3 g/dL (3.2-5.5); Bilirubin Total 0.5 mg/dL (0.3-1.2); Magnesium 2.3 mg/dL (1.8-2.5); Phosphorus 3.2 mg/dL (2.5-4.3); Potassium 4.5 mEq/L (3.6-5.0); Protein, Total 5.5 g/dL (6.0-8.3)
[2017-06-03] MEDS: ESCITALOPRAM 20 MG TAB PO SCH ×2 (08:41→21:59)
[2017-06-03] MEDS: BUSPIRONE HCL 5 MG TABLET PO SCH ×2 (08:41→21:59)
[2017-06-03] MEDS: PANTOPRAZOLE 40MG TABLET PO SCH (08:41)
[2017-06-03] MEDS: ENOXAPARIN 80 MG/0.8 ML SQ SCH ×2 (08:41→22:00)
[2017-06-03] MEDS: LISINOPRIL 5 MG TAB PO SCH (08:41)
--- NOTE | 2017-06-03 12:08 | P.PN ---
Subjective Date of Service: 06/03/17 Primary Care Provider: STAN Chief Complaint: leg swelling Pt seen and examined at bedside with RN. Case discussed with CM. No c/o overnight. Has been doing well overall. Awaiting therapeutic INR. Review of Systems 10-point ROS is otherwise unremarkable Physical Examination - Vital Signs Temperature: 97.4 F Blood Pressure: 89/52 Pulse: 78 Respirations: 17 Pulse Ox (%): 95 - Physical Exam General: Alert, In no apparent distress, Oriented x3 HEENT: Atraumatic, PERRLA, EOMI Neck: Supple, JVD not distended Respiratory: Clear to auscultation bilaterally, Normal air movement Cardiovascular: Regular rate/rhythm, Normal S1 S2 Gastrointestinal: Normal bowel sounds, No tenderness Musculoskeletal: No tenderness Integumentary: No rashes Neurological: Normal speech, Normal tone, Normal affect Lymphatics: No axilla or inguinal lymphadenopathy - Studies Medications List Reviewed: Yes Assessment & Plan - Problems (Diagnosis) (1) Right leg DVT Onset Date: 06/02/17 Current Visit: Yes Status: Acute Plan: Right Femoral Vein DVT -WB lovenox for now -Coumadin started. -Awaiting therapuetic INR. -Pt to followup with [facility] for further care. Qualifiers: Affected thrombotic vein of extremity: femoral Chronicity: acute Qualified Code(s): I82.411 - Acute embolism and thrombosis of right femoral vein (2) PAD (peripheral artery disease) Onset Date: 06/02/17 Current Visit: Yes Status: Acute Plan: Sever PAD noted in the right leg with intermitted Claudication -Anticoagulation with Lovenox for now -Will need to f/u with Vascular Surgeon OP for further care. (3) HTN (hypertension) Onset Date: 06/02/17 Current Visit: Yes Status: Chronic Qualifiers: Hypertension type: essential hypertension Qualified Code(s): I10 - Essential (primary) hypertension (4) [place] disease Onset Date: 06/02/17 Current Visit: Yes Status: Chronic Discharge Plan: Home Plan to discharge in: 24 Hours - Code Status/Comfort Care Code Status Assessed: Yes Critical Care: No
[2017-06-03] MEDS: WARFARIN SODIUM 2.5 MG TAB PO SCH (16:15)
[2017-06-03] MEDS: QUETIAPINE 100MG TAB PO SCH (21:59)
[2017-06-04 05:26] LABS: Absolute Monocytes 0.5 K/uL (0.1-1.3); Absolute Neutrophil 3.7 K/uL (1.8-8.0); Basophils % 0.3 % (0-1.3); Eosinophils % 2.7 % (0-4.4); Hematocrit 27.1 % (39.6-49.0); Lymphocytes % 40.1 % (15.3-44.8); MCH 25.8 pg (27.0-35.0); MCV 80.3 fL (80-100); MPV 7.4 fL (7.6-11.3); Monocytes % 6.5 % (3.3-12.3); RBC Red Blood Cell Count 3.37 M/uL (4.33-5.43)
[2017-06-04 05:27] LABS: Protime INR 0.99
[2017-06-04 05:53] LABS: Albumin 3.4 g/dL (3.2-5.5); Bilirubin Total 0.4 mg/dL (0.3-1.2); Phosphorus 3.8 mg/dL (2.5-4.3); Potassium 4.8 mEq/L (3.6-5.0); Protein, Total 5.9 g/dL (6.0-8.3)
[2017-06-04] MEDS: LISINOPRIL 5 MG TAB PO SCH (09:00)
[2017-06-04] MEDS: BUSPIRONE HCL 5 MG TABLET PO SCH ×2 (09:01→20:26)
[2017-06-04] MEDS: ESCITALOPRAM 20 MG TAB PO SCH ×2 (09:01→20:27)
[2017-06-04] MEDS: PANTOPRAZOLE 40MG TABLET PO SCH (09:01)
[2017-06-04] MEDS: ENOXAPARIN 80 MG/0.8 ML SQ SCH ×2 (09:01→20:27)
--- NOTE | 2017-06-04 12:35 | P.PN ---
Subjective Date of Service: 06/04/17 Primary Care Provider: STAN Chief Complaint: leg swelling Pt seen and examined at bedside with RN. Case discussed with CM. No c/o overnight. Has been doing well overall. Awaiting therapeutic INR. Review of Systems 10-point ROS is otherwise unremarkable Physical Examination - Vital Signs Temperature: 98.1 F Blood Pressure: 91/53 Pulse: 73 Respirations: 18 Pulse Ox (%): 100 - Physical Exam General: Alert, In no apparent distress, Oriented x3 HEENT: Atraumatic, PERRLA, EOMI Neck: Supple, JVD not distended Respiratory: Clear to auscultation bilaterally, Normal air movement Cardiovascular: Regular rate/rhythm, Normal S1 S2 Gastrointestinal: Normal bowel sounds, No tenderness Musculoskeletal: No tenderness Integumentary: No rashes Neurological: Normal speech, Normal tone, Normal affect Lymphatics: No axilla or inguinal lymphadenopathy - Studies Laboratory Data (last 24 hrs) 06/04/17 04:41: PT 11.7, INR 0.99 06/04/17 04:41: Sodium 141, Potassium 4.8, BUN 25 H, Creatinine 1.80 H, Glucose 86, Phosphorus 3.8, Magnesium 2.0, Total Bilirubin 0.4, AST 18, ALT 16, Alkaline Phosphatase 85 06/04/17 04:41: WBC 7.4, Hgb 8.7 L, Hct 27.1 L, Plt Count 215 Medications List Reviewed: Yes Assessment & Plan - Problems (Diagnosis) (1) Right leg DVT Onset Date: 06/02/17 Current Visit: Yes Status: Acute Plan: Right Femoral Vein DVT -WB lovenox for now -Coumadin started. -Awaiting therapuetic INR. -Pt to followup with [facility] for further care. Qualifiers: Affected thrombotic vein of extremity: femoral Chronicity: acute Qualified Code(s): I82.411 - Acute embolism and thrombosis of right femoral vein (2) PAD (peripheral artery disease) Onset Date: 06/02/17 Current Visit: Yes Status: Acute Plan: Sever PAD noted in the right leg with intermitted Claudication -Anticoagulation with Lovenox for now -Will need to f/u with Vascular Surgeon OP for further care. (3) HTN (hypertension) Onset Date: 06/02/17 Current Visit: Yes Status: Chronic Qualifiers: Hypertension type: essential hypertension Qualified Code(s): I10 - Essential (primary) hypertension (4) [place] disease Onset Date: 06/02/17 Current Visit: Yes Status: Chronic (5) Acute renal failure Current Visit: Yes Status: Acute Plan: BUN/CR improving today. -IV fluids and avoid nephrotoxic agents. Qualifiers: Acute renal failure type: unspecified Qualified Code(s): N17.9 - Acute kidney failure, unspecified (6) Anemia Current Visit: Yes Status: Chronic Plan: Most likely Iron def or ARF -Will continue to monitor hgb Qualifiers: Anemia type: iron deficiency Iron deficiency anemia type: unspecified iron deficiency Qualified Code(s): D50.9 - Iron deficiency anemia, unspecified
[2017-06-04] MEDS: ACETAMINOPHEN 500 MG TAB PO PRN (12:55)
[2017-06-04] MEDS: WARFARIN SODIUM 2.5 MG TAB PO SCH (16:09)
[2017-06-04] MEDS: QUETIAPINE 100MG TAB PO SCH (20:26)
[2017-06-05 05:29] LABS: Protime INR 1.01
[2017-06-05] MEDS: LISINOPRIL 5 MG TAB PO SCH (09:00)
[2017-06-05] MEDS: PANTOPRAZOLE 40MG TABLET PO SCH (09:08)
[2017-06-05] MEDS: BUSPIRONE HCL 5 MG TABLET PO SCH ×2 (09:08→20:06)
[2017-06-05] MEDS: ESCITALOPRAM 20 MG TAB PO SCH ×2 (09:08→20:07)
[2017-06-05] MEDS: ENOXAPARIN 80 MG/0.8 ML SQ SCH ×2 (09:08→20:05)
[2017-06-05] MEDS: ACETAMINOPHEN 500 MG TAB PO PRN ×3 (09:12→20:05)
[2017-06-05 10:11] VITALS: O2SAT 100
--- NOTE | 2017-06-05 10:57 | P.PN ---
Subjective Date of Service: 06/05/17 Primary Care Provider: STAN Chief Complaint: leg swelling Pt seen and examined at bedside with RN. Case discussed with CM. No c/o overnight. Has been doing well overall. Awaiting therapeutic INR. Review of Systems General: As per HPI Physical Examination - Vital Signs Temperature: 98.0 F Blood Pressure: 91/58 Pulse: 95 Respirations: 16 Pulse Ox (%): 100 - Physical Exam General: Alert, In no apparent distress HEENT: Atraumatic, PERRLA, EOMI Neck: Supple, JVD not distended Respiratory: Clear to auscultation bilaterally, Normal air movement Cardiovascular: Regular rate/rhythm, Normal S1 S2 Gastrointestinal: Normal bowel sounds, No tenderness Musculoskeletal: No tenderness Integumentary: No rashes Neurological: Normal speech, Normal tone, Normal affect Lymphatics: No axilla or inguinal lymphadenopathy - Studies Medications List Reviewed: Yes Assessment & Plan - Problems (Diagnosis) (1) Right leg DVT Onset Date: 06/02/17 Current Visit: Yes Status: Acute Plan: Right Femoral Vein DVT -WB lovenox for now -Coumadin started. -Awaiting therapuetic INR. -Pt to followup with [facility] for further care. Qualifiers: Affected thrombotic vein of extremity: femoral Chronicity: acute Qualified Code(s): I82.411 - Acute embolism and thrombosis of right femoral vein (2) PAD (peripheral artery disease) Onset Date: 06/02/17 Current Visit: Yes Status: Acute Plan: Sever PAD noted in the right leg with intermitted Claudication -Anticoagulation with Lovenox for now -Will need to f/u with Vascular Surgeon OP for further care. (3) HTN (hypertension) Onset Date: 06/02/17 Current Visit: Yes Status: Chronic Qualifiers: Hypertension type: essential hypertension Qualified Code(s): I10 - Essential (primary) hypertension (4) [place] disease Onset Date: 06/02/17 Current Visit: Yes Status: Chronic (5) Acute renal failure Current Visit: Yes Status: Acute Plan: BUN/CR improving today. -IV fluids and avoid nephrotoxic agents. Qualifiers: Acute renal failure type: unspecified Qualified Code(s): N17.9 - Acute kidney failure, unspecified (6) Anemia Current Visit: Yes Status: Chronic Plan: Most likely Iron def or ARF -Will continue to monitor hgb Qualifiers: Anemia type: iron deficiency Iron deficiency anemia type: unspecified iron deficiency Qualified Code(s): D50.9 - Iron deficiency anemia, unspecified
[2017-06-05] MEDS: WARFARIN SODIUM 2.5 MG TAB PO SCH (18:02)
[2017-06-05] MEDS: QUETIAPINE 100MG TAB PO SCH (20:06)
[2017-06-06 05:13] LABS: Protime INR 1.01
[2017-06-06] MEDS: LISINOPRIL 5 MG TAB PO SCH (09:00)
[2017-06-06] MEDS ORDERED: WARFARIN SODIUM 5 MG TAB PO SCH (10:00)
[2017-06-06 10:03] VITALS: BP 91/55; TEMP 97.6
--- NOTE | 2017-06-06 14:33 | P.DS ---
Admission Date: 06/04/17 Discharge Date: 06/06/17 Primary Care Provider: STAN Disposition: AMA-LEFT AGAINST MEDICAL ADVIC Reason for Admission: leg swelling - Problems (1) Right leg DVT Onset Date: 06/02/17 Status: Acute Qualifiers: Affected thrombotic vein of extremity: femoral Chronicity: acute Qualified Code(s): I82.411 - Acute embolism and thrombosis of right femoral vein (2) PAD (peripheral artery disease) Onset Date: 06/02/17 Status: Acute (3) HTN (hypertension) Onset Date: 06/02/17 Status: Chronic Qualifiers: Hypertension type: essential hypertension Qualified Code(s): I10 - Essential (primary) hypertension (4) [place] disease Onset Date: 06/02/17 Status: Chronic (5) Acute renal failure Status: Acute Qualifiers: Acute renal failure type: unspecified Qualified Code(s): N17.9 - Acute kidney failure, unspecified (6) Anemia Status: Chronic Qualifiers: Anemia type: iron deficiency Iron deficiency anemia type: unspecified iron deficiency Qualified Code(s): D50.9 - Iron deficiency anemia, unspecified Brief History of Present Illness: A 51-year-old male with significant past medical history of [place]'s disease , hypertension, renal disease who presented to the ED complaining of having some right leg pain along with swelling. Patient noted that he is having intermittent claudication like symptoms for about 1-2 weeks and has getting progressively worse. He started noticing that he had some swelling this morning and thus decided to come to the ER. Patient is from [place] and states that he moved here in 2017. He has not establish care with PCP here or does not see anyone regularly either. In ED U/S of the lower extremity was done which was positive for DVT. Hospital Course: Pt was admitted to the Hospital for Right Leg DVT, ARF and Anemia For Right Leg DVT pt was started on Coumadin 2.5mg Daily and we were awaiting INR to be therapeutic. Today INR was 1.01. Pt however was going doing down to smoke and was educated on smoking cessation and was asked not to smoke while here in the hospital given his DVT and severe PAD. Pt demonstrated understanding , however in 30mins pt left AMA. For his ARF pt remained on IV fluids and cr function did improve and no further intervention were needed. For his Anemia which was most likely 2/2 to iron def. Pt h/h stayed stable here in the hospital Vital Signs/Physical Exam: Temp Pulse Resp BP Pulse Ox 97.6 F 89 16 91/55 L 97 06/06/17 08:00 06/06/17 08:00 06/06/17 08:00 06/06/17 09:00 06/06/17 08:00 General: Alert, In no apparent distress, Oriented x3 HEENT: Atraumatic, PERRLA, EOMI Neck: Supple, JVD not distended Respiratory: Clear to auscultation bilaterally, Normal air movement Cardiovascular: Regular rate/rhythm, Normal S1 S2 Gastrointestinal: Normal bowel sounds, No tenderness Musculoskeletal: No tenderness Integumentary: No rashes Neurological: Normal speech, Normal tone, Normal affect Lymphatics: No axilla or inguinal lymphadenopathy Laboratory Data at Discharge: WBC 7.4 K/uL (4.3-10.9) 06/04/17 04:41 Hgb 8.7 g/dL (13.6-17.9) L 06/04/17 04:41 Hct 27.1 % (39.6-49.0) L 06/04/17 04:41 Plt Count 215 K/uL (152-406) 06/04/17 04:41 PT 11.9 SECONDS (9.5-12.5) 06/06/17 04:27 INR 1.01 06/06/17 04:27 APTT 35.3 SECONDS (24.3-36.9) 06/06/17 04:27 Sodium 141 mEq/L (135-145) 06/04/17 04:41 Potassium 4.8 mEq/L (3.6-5.0) 06/04/17 04:41 BUN 25 mg/dL (6-20) H 06/04/17 04:41 Creatinine 1.80 mg/dL (0.61-1.24) H 06/04/17 04:41 Glucose 86 mg/dL (65-120) 06/04/17 04:41 Phosphorus 3.8 mg/dL (2.5-4.3) 06/04/17 04:41 Magnesium 2.0 mg/dL (1.8-2.5) 06/04/17 04:41 Total Bilirubin 0.4 mg/dL (0.3-1.2) 06/04/17 04:41 AST 18 IU/L (10-42) 06/04/17 04:41 ALT 16 IU/L (10-60) 06/04/17 04:41 Alkaline Phosphatase 85 IU/L (42-121) 06/04/17 04:41 B-Natriuretic Peptide 35 pg/ml (<=100) 06/01/17 10:05 Home Medications: Buspirone HCl [Buspar] 10 mg PO BID 06/01/17 Escitalopram [Lexapro*] 20 mg PO BID 06/01/17 Esomeprazole Mag Trihydrate [Nexium] 40 mg PO DAILY 06/01/17 Lisinopril 5 mg PO DAILY 06/01/17 Quetiapine Fumarate [Seroquel] 800 mg PO DAILY 06/01/17 Trazodone [Desyrel] 100 mg PO DAILY 06/01/17
== END 2017-06-06 10:48 | disposition left against medical advice (07) | DRG 300 ==
LOC: ER 08:22 → ERHOLD 13:29 → 2ND 14:42 → OBSVTOIN 06-04 06:43
PROVIDERS: ADMIT Family Medicine; ATTEND Family Medicine
DX: I82.411 Acute embolism and thrombosis of right femoral vein (principal); G10 Huntington's disease; N17.9 Acute kidney failure, unspecified; I73.9 Peripheral vascular disease, unspecified; D50.9 Iron deficiency anemia, unspecified; F31.9 Bipolar disorder, unspecified; F17.200 Nicotine dependence, unspecified, uncomplicated
CPT/HCPCS: 36415; 71045; 80048; 80053; 80076; 81003; 83735; 83880; 84100; 85025; 85610; 85730; 93005; 93925; 93971; 96365; 96372; 99285; G0378; J1650; J3475

== ENCOUNTER 2017-06-10 20:32 | Inpatient (IN) | payer OTHER ==
--- OUTSIDE RECORDS SUMMARY | 2017-06-10 20:34 | XMS REPORT | Clinical Summary ---
:1965 Author Organization [facility] Address [address] [place] [address] Care Team Providers Name Role Phone Asked, [...] of unknown etiology Martina Russell MD after 06/09/2016 Immunizations Name Dates Previously Given Next Due [...] 40.0 % Specimen Performing Laboratory Plasma specimen [facility] DEPARTMENT OF PATHOLOGY AND GENOMIC MEDICINE [address] [place] [address] Estimated GFR (05/25/2017 7:25 AM)Only the most [...] and Americans. Specimen Performing Laboratory Plasma specimen [facility] DEPARTMENT OF PATHOLOGY AND GENOMIC MEDICINE [address] [place] [address] CBC with platelet and differential (05/25/2017 7:25 [...] (promyelocytes, myelocytes, metamyelocytes) Specimen Performing Laboratory Blood [facility] DEPARTMENT OF PATHOLOGY AND [facility] [address] [place] [address] Thyroid stimulating hormone (05/25/2017 7:25 AM)Only the most recent of2 resultswithin the time period is included. Component Value Ref Range TSH 1.22 0.27 - 4.20 uIU/mL Specimen Performing Laboratory Plasma specimen [facility] DEPARTMENT OF PATHOLOGY AND GENOMIC MEDICINE [address] [place] [address] Folate level (05/25/2017 7:25 AM) Component Value Ref Range Folate 3.3 (L) 4.8 - 24.2 ng/mL Specimen Performing Laboratory Serum [facility] DEPARTMENT OF PATHOLOGY AND [address] [address] Ferritin level (05/25/2017 7:25 AM) Component Value Ref Range Ferritin level 18 (L) 30 - 400 ng/mL Specimen Performing Laboratory Plasma specimen [facility] DEPARTMENT OF PATHOLOGY AND [address] [address] Vitamin B12 level (05/25/2017 7:25 AM) Component Value Ref Range Vitamin B12 250 211 - 946 pg/mL Comment: Significant overlap exists between normal and deficiency states. However, most patients with deficiencies will have Serum B12 <200 pg/mL. Specimen Performing Laboratory Serum [facility] DEPARTMENT OF PATHOLOGY AND [address] [address] Acetaminophen level (05/25/2017 7:25 AM)Only the most recent of2 resultswithin the time period is included. Component Value Ref Range Acetaminophen level <15.0 10.0 - 30.0 ug/mL Comment: Therapeutic 10-30 ug/mL Possible Toxicity 150-200 ug/mL Probable Toxicity >200 ug/mL Specimen Performing Laboratory Plasma specimen [facility] PATHOLOGY AND [address] [address] Comprehensive metabolic panel (05/25/2017 7:25 AM)Only the [...] 5.7 (L) 6.3 - 8.3 g/dL Comment: [place] 4.6-7.0 g/dL 1 week 4.4-7.6 g/dL 7 months-1year5.1-7.3 g/dL 1-2 years5.6-7.5 g/dL >3 years6.0-8.0 g/dL 18-150 6.3-8.3 g/dL Albumin 2.9 (L) 3.5 - 5.0 g/dL A/G ratio 1.0 0.7 - 3.8 Alkaline phosphatase 91 40 - 129 U/L AST 26 10 - 50 U/L ALT 16 5 - 50 U/L Total bilirubin 0.3 0.0 - 1.2 mg/dL Specimen Performing Laboratory Plasma specimen [facility] DEPARTMENT OF PATHOLOGY AND GENOMIC MEDICINE [address] [place] [address] Urinalysis screen and microscopy, with reflex to [...] UA None seen Specimen Performing Laboratory Urine [facility] DEPARTMENT OF PATHOLOGY AND [facility] [address] [place] [id number] Urine drugs of abuse screen (05/25/2017 4:10 AM) Component Value Ref Range Amphetamine screen, urine Negative Barbiturate screen, urine Negative Benzodiazepine screen, urine Negative Cannabinoid screen, urine Negative Cocaine screen, urine Negative Methadone metabolite (EDDP), urine Negative Opiates screen, urine Negative Oxycodone screen, urine Negative Phencyclidine screen, urine Negative Tricyclic screen, urine Negative Comment: Drug screen minimum concentration of detectability [id number] ng/mL Barbiturates 200 ng/mL Isqrwxzxjlftanw724 ng/mL Ezbhfyr529 ng/mL Aaveeioex427 ng/mL Bslsmpq730 ng/mL Mqggwnzed776 ng/mL Phencyclidine 25 ng/mL Etjxjbxxynqq81 ng/mL Sydlxjhsrm6803 ng/mL Negative test results indicates presumptive evidence of lack of clinically significant drug concentration in this urine specimen. Positive test results are presumptive evidence of clinically significant drug concentration in this urine specimen. Testing performed for medical purposes only. Specimen Performing Laboratory Urine [facility] DEPARTMENT PATHOLOGY AND [address] [address] Urine culture (05/25/2017 4:10 AM) Component Value Ref Range Urine culture SEE COMMENTComment: Bacteriuria screen negative. Specimen Performing Laboratory [facility] PATHOLOGY AND [address] [address] Basic metabolic panel (05/25/2017 4:10 AM) Component [...] 10.2 mg/dL Specimen Performing Laboratory Plasma specimen [facility] PATHOLOGY [address] [address] Troponin (05/24/2017 11:30 PM) Component Value Ref Range Troponin <0.30 0.00 - 0.30 ng/mL Comment: 0.30 - 1.49 ng/mlMay indicate increased risk of acute coronary syndrome. >=1.5 ng/mlConsistent with acute myocardial infarction. The diagnostic value of a single normal or non-diagnostic result is questionable.Serial samples at 2-6 hour intervals are required to rule out acute myocardial injury. Specimen Performing Laboratory Plasma specimen [facility] DEPARTMENT OF PATHOLOGY AND [address] [address] Partial thromboplastin time, activated (05/24/2017 11:30 PM) Component Value Ref Range PTT 23.5 23.0 - 36.0 sec Comment: PTT therapeutic range for unfractionated heparin is 61.0-112.0 seconds which corresponds to Anti-Xa 0.3-0.7 U/ml. Specimen Performing Laboratory Blood [facility] PATHOLOGY [address] [address] Prothrombin time with INR (05/24/2017 11:30 PM) Component Value Ref Range Prothrombin time 13.0 12.0 - 15.0 sec INR 1.0 Comment: The International Normalized Ratio (INR) is a therapeutic monitoring tool for patients who are stable on oral anticoagulant therapy. An INR of 2.0-3.0 is suggested for deep vein thrombosis/pulmonary embolism. Specimen Performing Laboratory Blood [facility] DEPARTMENT OF PATHOLOGY AND [facility] [address] [place] [address] Alcohol level, blood (05/24/2017 11:30 PM) Component Value Ref Range Alcohol None Detected mg/dL Comment: Normal None Detected Legal Intoxication in [place]80 mg/dL (0.08%) - Whole Blood Toxic Ohgpmwhjsuouh576 mg/dL (0.2%) Potentially Qvthz724 - 500 mg/dL (0.35 - 0.5%) Alcohol percent None Detected % Specimen Performing Laboratory Plasma specimen [facility] DEPARTMENT OF PATHOLOGY AND GENOMIC MEDICINE [address] [place] [address] Salicylate level (05/24/2017 11:30 PM) Component Value Ref Range Salicylate <3.0 3.0 - 30.0 mg/dL Specimen Performing Laboratory Plasma specimen [facility] DEPARTMENT OF PATHOLOGY AND GENOMIC MEDICINE [address] [place] [address] ECG 12 lead (05/24/2017 11:05 PM) Component Value Ref Range Ventricular rate 80 Atrial rate 80 FL interval 190 QRSD interval 84 QT interval 374 QTC interval 431 P axis 1 33 QRS axis 1 -31 T wave axis 21 EKG impression Normal sinus rhythm-Left axis deviation-Low voltage QRS-Borderline ECG-- Specimen Performing Laboratory [facility] MUSE [address] [place] [address] after 06/09/2016 Insurance Payer Benefit Plan / Group Subscriber ID Type Phone Address MEDICARE MEDICARE PART A AND B xxxxxxxxxx Medicare [place], [place] Home: [address] [place] [phone] [place], [place] [address]
[2017-06-10 21:05] LABS: Absolute Lymphocytes (CBC) 3.8 K/uL (0.7-4.9); Absolute Monocytes 0.8 K/uL (0.1-1.3); Absolute Neutrophil 5.6 K/uL (1.8-8.0); Basophils % 0.6 % (0-1.3); Eosinophils % 2.5 % (0-4.4); Hematocrit 27.2 % (39.6-49.0); Lymphocytes % 36.6 % (15.3-44.8); MCH 26.1 pg (27.0-35.0); MCV 79.6 fL (80-100); MPV 7.4 fL (7.6-11.3); Monocytes % 7.2 % (3.3-12.3); RBC Red Blood Cell Count 3.42 M/uL (4.33-5.43)
[2017-06-10] MEDS ORDERED: ASPIRIN 81 MG CHEWABLE TABLET ONE (21:17)
[2017-06-10] MEDS ORDERED: NA CHLORIDE 0.9% 1,000 ML ONE (21:17)
[2017-06-10] MEDS ORDERED: ENOXAPARIN 80 MG/0.8 ML SQ ONE (21:21)
[2017-06-10 21:23] LABS: Bicarbonate 25 mEq/L (21-31); Glucose Level 86 mg/dL (65-120); Lipase 36 U/L (22-51); Potassium 4.4 mEq/L (3.6-5.0); Sodium Level 137 mEq/L (135-145)
[2017-06-10 21:29] LABS: ALT/SGPT 16 IU/L (10-60); AST/SGOT 21 IU/L (10-42); Albumin 4.1 g/dL (3.2-5.5); Alkaline Phosphatase 87 IU/L (42-121); BUN Blood Urea Nitrogen 33 mg/dL (6-20); Bilirubin Direct < 0.1 mg/dL (0-0.2); Bilirubin Total 0.4 mg/dL (0.3-1.2); Creatine Phosphokinase 212 IU/L (22-269); Glomerular Filtration Rate 27 mL/min (=/>90); Protein, Total 6.7 g/dL (6.0-8.3); Protime INR 0.94
[2017-06-10 21:32] LABS: CKMB Creatine Kinase MB 4.4 ng/ml (0.3-4.0)
--- NOTE | 2017-06-10 21:55 | EDPHYS ---
Physician Documentation [facility] Name: Jeovany Buckley Age: 51 yrs Sex: Male : 1965 Arrival Date: 06/10/2017 Time: 20:35 Bed 15 Private MD: ED Physician Kevin Mojica HPI: 06/10 20:53 This 51 yrs old Male presents to ER via EMS with complaints of right leg pain marky and sharp chest pain. 20:53 The patient presents with pain, that is acute. The complaints affect the right celis. marky Context: The problem was sustained at home. Onset: The symptoms/episode began/occurred today. Modifying factors: The symptoms are alleviated by nothing. the symptoms are aggravated by nothing. Associated signs and symptoms: The patient has no apparent associated signs or symptoms. The patient or guardian reports chest pain that is located primarily in the anterior chest wall, bilaterally. Onset: just prior to arrival. The pain does not radiate. Historical: - Allergies: 20:41 PENICILLINS; aj 20:41 Sulfa (Sulfonamide Antibiotics); aj - Home Meds: 20:41 buspirone 10 mg Oral tab 1 tab 2 times per day [Active]; Lexapro 20 mg Oral tab 1 tab aj once daily [Active]; Tramadol Oral [Active]; Risperdal Oral [Active]; Seroquel 400 mg Oral tab 1 tab 2 times per day [Active]; Nexium 40 mg Oral cpDR 1 cap once daily [Active]; - PMHx: 20:41 Bipolar disorder; Kaveh's Disease; Hypertension; Renal Disease; aj - PSHx: 20:41 None; aj - Immunization history:: Adult Immunizations up to date. - Social history:: Smoking status: Patient/guardian denies using tobacco. - Family history:: not pertinent. ROS: 20:53 Constitutional: Negative for fever, chills, and weight loss, Eyes: Negative for injury, marky pain, redness, and discharge, ENT: Negative for injury, pain, and discharge, Neck: Negative for injury, pain, and swelling, Cardiovascular: Negative for chest pain, palpitations, and edema, Respiratory: Negative for shortness of breath, cough, wheezing, and pleuritic chest pain, Abdomen/GI: Negative for abdominal pain, nausea, vomiting, diarrhea, and constipation, Back: Negative for injury and pain, : Negative for injury, bleeding, discharge, and swelling, MS/Extremity: Negative for injury and deformity, Skin: Negative for injury, rash, and discoloration, Neuro: Negative for headache, weakness, numbness, tingling, and seizure, Psych: Negative for depression, anxiety, suicide ideation, homicidal ideation, and hallucinations, Allergy/Immunology: Negative for hives, rash, and allergies, Endocrine: Negative for neck swelling, polydipsia, polyuria, polyphagia, and marked weight changes, Hematologic/Lymphatic: Negative for swollen nodes, abnormal bleeding, and unusual bruising. 20:53 MS/extremity: Positive for pain, of the right celis. Exam: 20:53 Constitutional: This is a well developed, well nourished patient who is awake, alert, marky and in no acute distress. Head/Face: Normocephalic, atraumatic. Eyes: Pupils equal round and reactive to light, extra-ocular motions intact. Lids and lashes normal. Conjunctiva and sclera are non-icteric and not injected. Cornea within normal limits. Periorbital areas with no swelling, redness, or edema. ENT: Nares patent. No nasal discharge, no septal abnormalities noted. Tympanic membranes are normal and external auditory canals are clear. Oropharynx with no redness, swelling, or masses, exudates, or evidence of obstruction, uvula midline. Mucous membranes moist. Neck: Trachea midline, no thyromegaly or masses palpated, and no cervical lymphadenopathy. Supple, full range of motion without nuchal rigidity, or vertebral point tenderness. No Meningismus. Chest/axilla: Normal chest wall appearance and motion. Nontender with no deformity. No lesions are appreciated. Cardiovascular: Regular rate and rhythm with a normal S1 and S2. No gallops, murmurs, or rubs. Normal PMI, no JVD. No pulse deficits. Respiratory: Lungs have equal breath sounds bilaterally, clear to auscultation and percussion. No rales, rhonchi or wheezes noted. No increased work of breathing, no retractions or nasal flaring. Abdomen/GI: Soft, non-tender, with normal bowel sounds. No distension or tympany. No guarding or rebound. No evidence of tenderness throughout. Back: No spinal tenderness. No costovertebral tenderness. Full range of motion. Male : Normal genitalia with no discharge or lesions. Skin: Warm, dry with normal turgor. Normal color with no rashes, no lesions, and no evidence of cellulitis. MS/ Extremity: Pulses equal, no cyanosis. Neurovascular intact. Full, normal range of motion. Neuro: Awake and alert, GCS 15, oriented to person, place, time, and situation. Cranial nerves II-XII grossly intact. Motor strength 5/5 in all extremities. Sensory grossly intact. Cerebellar exam normal. Normal gait. Psych: Awake, alert, with orientation to person, place and time. Behavior, mood, and affect are within normal limits. 20:53 Musculoskeletal/extremity: DVT Exam: No signs of deep vein thrombosis. no pain, no swelling, no tenderness, negative Homans' sign noted on exam, no appreciated bluish discoloration, no erythema, no increased warmth. Vital Signs: 20:41 BP 132 / 85; Pulse 96; Resp 17; Temp 98.3; Pulse Ox 99% on R/A; Weight 83.91 kg; Height aj 5 ft. 10 in. (177.80 cm); Pain 6/10; 22:30 BP 113 / 77; Pulse 98; Resp 16; Pulse Ox 100% ; bp 23:05 BP 119 / 62; Pulse 87; Resp 16; Pulse Ox 100% ; bp 20:41 Body Mass Index 26.54 (83.91 kg, 177.80 cm) aj MDM: 20:36 Patient medically screened. [facility] 20:56 Data reviewed: vital signs, nurses notes, lab test result(s), EKG, radiologic studies, marky doppler, plain films. 06/10 20:50 Order name: Basic Metabolic Panel; Complete Time: 21:51 marky 06/10 20:50 Order name: BNP; Complete Time: 21:51 marky 06/10 20:50 Order name: CBC with Diff; Complete Time: 21:15 06/10 20:50 Order name: Ckmb; Complete Time: :51 06/10 20:50 Order name: CPK; Complete Time: :51 06/10 20:50 Order name: LFT's; Complete Time: :51 06/10 20:50 Order name: Magnesium; Complete Time: :51 06/10 20:50 Order name: PT-INR; Complete Time: :51 marky 06/10 20:50 Order name: Ptt, Activated; Complete Time: 21:51 [facility] 06/10 20:50 Order name: Troponin (emerg Dept Use Only); Complete Time: 21:51 [facility] 06/10 20:50 Order name: XRAY Chest (1 view) [facility] 06/10 20:50 Order name: Lipase; Complete Time: 21:51 [facility] 06/10 20:50 Order name: UDS [facility] 06/10 22:29 Order name: Urine Dipstick--Ancillary (enter results) em 06/10 20:50 Order name: EKG; Complete Time: 20:51 [facility] 06/10 20:50 Order name: Cardiac monitoring; Complete Time: 20:52 [facility] 06/10 20:50 Order name: EKG - Nurse/Tech; Complete Time: 21:38 [facility] 06/10 20:50 Order name: IV Saline Lock; Complete Time: 20:52 [facility] 06/10 20:50 Order name: Labs collected and sent; Complete Time: 20:52 [facility] 06/10 20:50 Order name: O2 Per Protocol; Complete Time: 20:52 [facility] 06/10 20:50 Order name: O2 Sat Monitoring; Complete Time: 20:52 [facility] 06/10 20:50 Order name: Urine Dipstick-Ancillary (obtain specimen); Complete Time: 22:21 [facility] 06/10 20:50 Order name: US Extremity Venou Bilateral [facility] 06/10 22:02 Order name: CONS Physician Consult; Complete Time: 23:26 EDMS 06/10 22:03 Order name: Echo with Doppler [facility] 06/10 22:03 Order name: Vent Perfusion VQ Scan EDMS Administered Medications: 21:31 Drug: NS 0.9% 1000 ml Route: IV; Rate: 125 ml/hr; Site: right forearm; aj 23:15 Follow up: IV Status: Infusion continued upon admission bs1 21:31 Drug: Aspirin 162 mg Route: PO; aj 22:20 Follow up: Response: No adverse reaction bs1 21:31 Drug: Lovenox 1 mg/kg Route: Sub-Q; Site: abdomen; aj 22:20 Follow up: Response: No adverse reaction bs1 22:51 Drug: ProTONIX 40 mg Route: IVP; Site: right forearm; bs1 23:15 Follow up: Response: No adverse reaction bs1 Disposition: 06/10/17 21:54 Hospitalization ordered by Dedra Yates for Inpatient Admission. Preliminary diagnosis are Other chest pain, Acute embolism and thrombosis of other specified deep vein of right lower extremity, Bipolar disorder. - Bed requested for Telemetry/MedSurg (Inpatient). - Status is Inpatient Admission. bs1 - Condition is Stable. - Problem is new. - Symptoms have improved. UTI on Admission? No Signatures: Dispatcher [employer] EDMS Azalia Lozoya RN Sandi Neely RN RN aj Anderson, Corey, MD MD cha Salazar, Brittany, JOSSELINE RN bs1
--- NOTE | 2017-06-10 21:55 | ER ---
Nurse's Notes [facility] Name: Jeovany Buckley Age: 51 yrs Sex: Male : 1965 Arrival Date: 06/10/2017 Time: 20:35 Bed 15 Private MD: Diagnosis: Other chest pain;Acute embolism and thrombosis of other specified deep vein of right lower extremity;Bipolar disorder Presentation: 06/10 20:36 Presenting complaint: Patient states: Reports numbness to right lower leg that started aj today while walking. Brief episode of chest pain that lasted 30 seconds occurring at 1800. Patient DX with DVT in right leg 9 days ago. Transition of care: patient was not received from another setting of care. Onset of symptoms was June 10, 2017. Care prior to arrival: None. 20:36 Method Of Arrival: EMS: [facility] aj 20:36 Acuity: JED 3 aj Triage Assessment: 20:41 General: Appears in no apparent distress. comfortable, Behavior is calm, cooperative, aj appropriate for age. Pain: Complains of pain in chest and right celis. Neuro: Level of Consciousness is awake, alert, obeys commands, Oriented to person, place, time, situation. Cardiovascular: Reports chest pain, Denies diaphoresis, fatigue, nausea, palpitations, shortness of breath, syncope, vomiting, Capillary refill < 3 seconds in bilateral fingers Patient's skin is warm and dry. Respiratory: Airway is patent Respiratory effort is even, unlabored, Respiratory pattern is regular, symmetrical, Denies shortness of breath. Derm: Skin is intact, is healthy with good turgor, Skin is pink, warm \T\ dry. normal. 20:41 Musculoskeletal: Reports numbness in right celis, anterior aspect of right ankle and aj dorsum of right foot. Historical: - Allergies: 20:41 PENICILLINS; aj 20:41 Sulfa (Sulfonamide Antibiotics); aj - Home Meds: 20:41 buspirone 10 mg Oral tab 1 tab 2 times per day [Active]; Lexapro 20 mg Oral tab 1 tab aj once daily [Active]; Tramadol Oral [Active]; Risperdal Oral [Active]; Seroquel 400 mg Oral tab 1 tab 2 times per day [Active]; Nexium 40 mg Oral cpDR 1 cap once daily [Active]; - PMHx: 20:41 Bipolar disorder; Kaveh's Disease; Hypertension; Renal Disease; aj - PSHx: 20:41 None; aj - Immunization history:: Adult Immunizations up to date. - Social history:: Smoking status: Patient/guardian denies using tobacco. - Family history:: not pertinent. Screenin:50 Abuse screen: Denies threats or abuse. Denies injuries from another. Nutritional bs1 screening: No deficits noted. Tuberculosis screening: No symptoms or risk factors identified. Fall Risk None identified. Assessment: 21:32 Reassessment: See triage. aj 21:53 Reassessment: Report received from JOSSELINE Junior patient in no apparent distress. General: bs1 Appears in no apparent distress. Pain: Complains of pain in dorsum of right foot and anterior aspect of right ankle and right leg and right celis. Neuro: Level of Consciousness is awake, alert, obeys commands, Oriented to person, place, Pot Filler are equal bilaterally Weakness in right leg(s) foot/feet. Cardiovascular: Denies chest pain, palpitations, shortness of breath, Heart tones S1 S2 present Capillary refill < 3 seconds Patient's skin is warm and dry. Respiratory: Airway is patent Trachea midline Respiratory effort is even, unlabored, Respiratory pattern is regular, symmetrical, Breath sounds are clear bilaterally. GI: Abdomen is flat, Bowel sounds present X 4 quads. : No deficits noted. No signs and/or symptoms were reported regarding the genitourinary system. EENT: No deficits noted. No signs and/or symptoms were reported regarding the EENT system. Derm: No deficits noted. No signs and/or symptoms reported regarding the dermatologic system. Musculoskeletal: Circulation, motion, and sensation intact. Capillary refill < 3 seconds, Range of motion: limited in anterior aspect of right ankle and right leg. 22:53 Reassessment: Patient appears in no apparent distress at this time. No changes from bs1 previously documented assessment. Patient and/or family updated on plan of care and expected duration. Pain level reassessed. Patient is alert, oriented x 3, equal unlabored respirations, skin warm/dry/pink. pending room assignment. 23:26 Reassessment: Called report to JOSSELINE Montes. Patient AOx3, no chest pain noted, no resp bs1 distress, pending transfer to 2nd floor. Vital Signs: 20:41 BP 132 / 85; Pulse 96; Resp 17; Temp 98.3; Pulse Ox 99% on R/A; Weight 83.91 kg; Height aj 5 ft. 10 in. (177.80 cm); Pain 6/10; 22:30 BP 113 / 77; Pulse 98; Resp 16; Pulse Ox 100% ; bp 23:05 BP 119 / 62; Pulse 87; Resp 16; Pulse Ox 100% ; bp 20:41 Body Mass Index 26.54 (83.91 kg, 177.80 cm) ED Course: 20:35 Patient arrived in ED. em1 20:35 Sandi Arroyo, RN is Primary Nurse. aj 20:36 Kevin Mojica MD is Attending Physician. marky 20:38 Triage completed. aj 20:41 Arm band placed on left wrist. Patient placed in an exam room, on a stretcher. aj 21:30 Ultrasound completed. Patient tolerated well. aa4 21:31 X-ray completed. Portable x-ray completed in exam room. Patient tolerated procedure ag1 well. 21:32 Inserted saline lock: 20 gauge in right forearm, using aseptic technique. Blood aj collected. By Nader MANJARREZ. 21:33 US Extremity Venou Bilateral In Process Unspecified. EDMS 21:33 XRAY Chest (1 view) In Process Unspecified. EDMS 21:51 Patient has correct armband on for positive identification. Bed in low position. Call bs1 light in reach. Side rails up X 1. Report received from JOSSELINE Jnuior. Pulse ox on. NIBP on. 21:52 Dedra Yates MD is Hospitalizing Provider. marky 23:24 No provider procedures requiring assistance completed. Patient admitted, IV remains in bs1 place. intact. Administered Medications: 21:31 Drug: NS 0.9% 1000 ml Route: IV; Rate: 125 ml/hr; Site: right forearm; aj 23:15 Follow up: IV Status: Infusion continued upon admission bs1 21:31 Drug: Aspirin 162 mg Route: PO; aj 22:20 Follow up: Response: No adverse reaction bs1 21:31 Drug: Lovenox 1 mg/kg Route: Sub-Q; Site: abdomen; aj 22:20 Follow up: Response: No adverse reaction bs1 22:51 Drug: ProTONIX 40 mg Route: IVP; Site: right forearm; bs1 23:15 Follow up: Response: No adverse reaction bs1 Outcome: 21:54 Decision to Hospitalize by Provider. marky 23:24 Admitted to Med/surg accompanied by tech, via stretcher, with chart, Report called to bs1 Jyoti, RN. Informed Nurse that patient requested to not have Dr Russell as hospitalist. 23:24 Condition: stable 23:31 Patient left the ED. bs1 Signatures: Dispatcher [employer] EDSandi Gonzalez, RN RN Kevin Villarreal MD MD cha Frazier, Amanda aa4 Gil Elizabeth 1 Gloria Vanegas 1 Nader Puente, RN RN Bea Diaz, JOSSELINE RN bs1
[2017-06-10 22:31] LABS: Urine Blood NEGATIVE (NEG); Urine Glucose NEGATIVE (NEG); Urine Protein NEGATIVE (NEG); Urine Specific Gravity <1.005 (1.005-1.030); Urine pH 5.5 (5.0-7.0)
[2017-06-10 22:40] LABS: Barbiturates NEGATIVE; Benzodiazepines NEGATIVE; Cocaine NEGATIVE; METHAMPHETAM NEGATIVE; Opiates NEGATIVE; Phencyclidine NEGATIVE; THC Cannibis NEGATIVE
[2017-06-10] MEDS ORDERED: MORPHINE 2 MG/ML SYR IV PRN (22:53)
[2017-06-10] MEDS ORDERED: ONDANSETRON 4 MG/2 ML VIAL IV PRN (22:53)
[2017-06-10] MEDS ORDERED: ACETAMINOPHEN 500 MG TAB PO PRN (22:53)
[2017-06-10] MEDS: NA CHLORIDE 0.9% 1,000 ML IV SCH (23:00)
[2017-06-10] MEDS ORDERED: PANTOPRAZOLE 40 MG INJ ONE (23:00)
[2017-06-10 23:40] VITALS: BMI 26.4
[2017-06-11 05:16] LABS: Absolute Lymphocytes (CBC) 4.4 K/uL (0.7-4.9); Absolute Monocytes 0.8 K/uL (0.1-1.3); Absolute Neutrophil 4.2 K/uL (1.8-8.0); Basophils % 0.4 % (0-1.3); Eosinophils % 3.6 % (0-4.4); Hematocrit 26.7 % (39.6-49.0); Lymphocytes % 45.4 % (15.3-44.8); MCH 25.4 pg (27.0-35.0); MCV 80.1 fL (80-100); MPV 7.9 fL (7.6-11.3); Monocytes % 7.9 % (3.3-12.3); RBC Red Blood Cell Count 3.33 M/uL (4.33-5.43)
[2017-06-11 05:25] LABS: Protime INR 0.92
[2017-06-11 05:32] LABS: Albumin 3.5 g/dL (3.2-5.5); Bilirubin Total 0.4 mg/dL (0.3-1.2); Potassium 4.4 mEq/L (3.6-5.0); Protein, Total 5.9 g/dL (6.0-8.3)
--- NOTE | 2017-06-11 07:59 | RAD REPORT ---
EXAM DESCRIPTION: NM - Vent Perfusion VQ Scan - 06/11/2017 7:19 am CLINICAL HISTORY: Chest pain, shortness of breath, history of positive DVT COMPARISON: Chest film June 10 TECHNIQUE: The patient was administered 19.6 mCi Xenon 133 gas with posterior projection inspiration , equilibrium, and washout views obtained. The patient was then administered 7.6 mCi Tc-99m MAA label ed RBCs followed by standard 8 view protocol. FINDINGS: There is good distribution of the Xenon with no ventilation defects identified. Moderate d iffuse air trapping is present. Perfusion images do show a somewhat patchy distribution of the radiopharmaceutical. No lobar or segme ntal defects are present in subsegmental true defects are on likely. Pattern is more suggestive of mi ld diffuse interstitial lung disease. IMPRESSION: Low probability V/Q scan for pulmonary embolism. Moderate diffuse air trapping.
[2017-06-11] MEDS ORDERED: NA CHLORIDE 0.9% 500 ML IV ONE (08:00)
[2017-06-11] MEDS ORDERED: CODEINE 30MG/APAP 300MG TAB PO PRN (08:02)
--- NOTE | 2017-06-11 08:06 | RAD REPORT ---
EXAM DESCRIPTION: RAD - Chest Single View - 06/10/2017 9:33 pm CLINICAL HISTORY: Chest pain COMPARISON: June 01 TECHNIQUE: AP portable chest image was obtained 2139 hours . FINDINGS: Lungs are clear. Heart and vasculature are normal. No measurable pleural effusion and no p neumothorax. No gross bony abnormality seen. No acute aortic findings suspected. IMPRESSION: No acute cardiopulmonary process. No significant change from comparison.
--- NOTE | 2017-06-11 08:06 | RAD REPORT ---
EXAM DESCRIPTION: VAS - Extrem Venous W Compress Jordon - 06/10/2017 9:33 pm CLINICAL HISTORY: DVT history, leg pain and swelling Preliminary finding was provided at the time of the study. COMPARISON: DVT study June 01 TECHNIQUE: Real-time sonographic evaluation of the bilateral lower extremity deep venous systems was performed. FINDINGS: Right common femoral vein is clear. Thrombus is present within the right femoral vein invo lving a similar length of the deep venous system compared to June 01. Popliteal vein and distally on the right are clear of thrombus. Edematous soft tissues are present. No propagation of the right leg thrombus since June 01. Left leg deep venous system is clear. No new left leg finding. No mass, abscess or focal soft tissue finding. IMPRESSION: Acute DVT in the left femoral vein showing no propagation or change from the June 01 DV T study. No left leg DVT.
--- NOTE | 2017-06-11 08:10 | P.HP ---
Certification for Inpatient Patient admitted to: Inpatient With expected LOS: >2 Midnights Patient will require the following post-hospital care: None Practitioner: I am a practitioner with admitting privileges, knowledge of patient current condition, hospital course, and medical plan of care. Services: Services provided to patient in accordance with Admission requirements found in Title 42 Section 412.3 of the Code of Federal Regulations Patient History Date of Service: 06/10/17 Reason for admission: Acute kidney injury & history of DVT History of Present Illness: Patient is a 51-year-old gentleman who came into the hospital with diffuse pain. Patient was recently in the hospital a week ago and was diagnose with a partially occlusive DVT. However, after a disagreement with his provider he left against medical advice. Patient states he has been feeling worse since leaving. He decided to come back into the hospital for further evaluation. He was having chest pain and back pain. His workup in the ER revealed he was in acute renal failure. He also has anemia. He did not have any blood thinning medications so he has not been able to treat his DVT appropriately. He will be admitted to the hospital for IV hydration and additional testing ordered by ER physician. Will also get his prescription for his anti coagulation sent off to the pharmacy. Hopefully they will approve it. He may get to go home in the next 24-48 hr depending on his renal response to fluids. Allergies Penicillins Adverse Reaction (Verified 06/01/17 13:32) Anaphylaxis Sulfa (Sulfonamide Antibiotics) Adverse Reaction (Verified 06/01/17 13:32) Anaphylaxis Home Medications: Buspirone HCl [Buspar] 10 mg PO BID 06/01/17 Escitalopram [Lexapro*] 20 mg PO BID 06/01/17 Esomeprazole Mag Trihydrate [Nexium] 40 mg PO DAILY 06/01/17 Lisinopril 5 mg PO DAILY 06/01/17 Quetiapine Fumarate [Seroquel] 800 mg PO BEDTIME 06/01/17 Trazodone [Desyrel*] 100 mg PO BEDTIME 06/01/17 Apixaban [Eliquis] 5 mg PO BID #60 tablet 06/11/17 - Past Medical/Surgical History Has patient received pneumonia vaccine in the past: No Diabetic: No -: Bipolar Disorder -: Renal Disease -: [place]'s Disease -: Hypertension -: hyperlipidemia Past Surgical History: Patient denies surgical history - Family History Father Medical History: Heart disease - Social History Smoking Status: Current every day smoker Alcohol use: No CD- Drugs: No Caffeine use: No Place of Residence: Homeless Review of Systems 10-point ROS is otherwise unremarkable Physical Examination - Vital Signs Temperature: 97.9 F Blood Pressure: 116/68 Pulse: 78 Respirations: 18 Pulse Ox (%): 98 - Physical Exam General: Alert, In no apparent distress, Oriented x3 HEENT: Atraumatic, PERRLA, Mucous membr. moist/pink, EOMI, Sclerae nonicteric Neck: Supple, 2+ carotid pulse no bruit, No LAD, Without JVD or thyroid abnormality Respiratory: Clear to auscultation bilaterally, Normal air movement Cardiovascular: Regular rate/rhythm, Normal S1 S2 Gastrointestinal: Normal bowel sounds, Soft and benign, Non-distended, No tenderness Musculoskeletal: No tenderness Integumentary: No rashes Neurological: Normal gait, Normal speech, Normal strength at 5/5 x4 extr, Normal tone, Sensation intact, Cranial nerves 3-12 intact, Normal affect Lymphatics: No axilla or inguinal lymphadenopathy - Studies Laboratory Data (last 24 hrs) 06/10/17 20:50: PT 11.1, INR 0.94, APTT 26.0 06/10/17 20:50: WBC 10.5 D, Hgb 8.9 L, Hct 27.2 L, Plt Count 260 D 06/10/17 20:50: B-Natriuretic Peptide 14 06/10/17 20:50: Sodium 137, Potassium 4.4, BUN 33 H, Creatinine 2.54 H, Glucose 86, Magnesium 2.0, Total Bilirubin 0.4, AST 21, ALT 16, Alkaline Phosphatase 87 , Lipase 36 Assessment & Plan - Problems (Diagnosis) (1) Acute renal failure Current Visit: No Status: Acute Qualifiers: (2) PAD (peripheral artery disease) Onset Date: 06/02/17 Current Visit: No Status: Acute (3) Right leg DVT Onset Date: 06/02/17 Current Visit: No Status: Acute Qualifiers: (4) Anemia Current Visit: No Status: Chronic Qualifiers: Anemia type: iron deficiency (5) HTN (hypertension) Onset Date: 06/02/17 Current Visit: No Status: Chronic Qualifiers: Hypertension type: essential hypertension - Plan Plan: 1. Continue with anti coagulation 2. Await V/Q scan and Doppler ultrasound have been ordered 3. IV hydration for renal function 4. Eliquis sent to pharmacy to see if covered by insurance 5. Pain control 6. GI and DVT prophylax Discharge Plan: Home Plan to discharge in: 48 Hours - Advance Directives Does patient have a Living Will: No Does patient have a Durable POA for Healthcare: No - Code Status/Comfort Care Code Status Assessed: Yes Code Status: Full Code Critical Care: No Time Spent Managing PTS Care (In Minutes): 50
[2017-06-11] MEDS: APIXABAN 5 MG TABLET PO SCH ×2 (08:59→23:15)
[2017-06-11] MEDS: NA CHLORIDE 0.9% 1,000 ML IV SCH ×3 (09:00→21:51)
[2017-06-11] MEDS: ESCITALOPRAM 20 MG TAB PO SCH ×2 (09:00→21:53)
[2017-06-11] MEDS: BUSPIRONE HCL 5 MG TABLET PO SCH ×2 (09:00→21:52)
[2017-06-11] MEDS ORDERED: HOME MED 1 EA UNK (Esomeprazole Mag Trihydrate [Nexium] 40 MG) PO SCH (09:00)
[2017-06-11 11:23] LABS: RBC Red Blood Cell Count 3.22 M/uL (4.33-5.43)
[2017-06-11 12:31] LABS: Folic Acid, (Folate) 5.2 ng/ml (>5.21); Magnesium 1.9 mg/dL (1.8-2.5)
[2017-06-11] MEDS: QUETIAPINE 100MG TAB PO SCH (21:52)
[2017-06-11] MEDS: TRAZODONE 50 MG TABLET PO SCH (21:53)
[2017-06-12] MEDS ORDERED: NA CHLORIDE 0.9% 500 ML IV ONE (03:04)
[2017-06-12] MEDS: NA CHLORIDE 0.9% 1,000 ML IV SCH (05:55)
[2017-06-12] MEDS ORDERED: CYANOCOBALAMIN 1000MCG/ML INJ IM ONE (06:00)
[2017-06-12] MEDS: PANTOPRAZOLE 40MG TABLET PO SCH (06:05)
[2017-06-12] MEDS: FOLIC ACID 1 MG in NA CHLORIDE 0.9% 50 ML IV SCH ×2 (07:00→08:48)
--- NOTE | 2017-06-12 07:24 | P.PN ---
Subjective Date of Service: 06/11/17 Patient is doing well. No new complaints. Labs are stable. Renal function is improving. Patient with multiple nutritional deficiencies with secondary anemia. Reticulocyte count is very low. Will supplement and possible discharge home tomorrow Review of Systems 10-point ROS is otherwise unremarkable Physical Examination - Vital Signs Temperature: 98.8 F Blood Pressure: 93/54 Pulse: 73 Respirations: 18 Pulse Ox (%): 97 - Physical Exam General: Alert, In no apparent distress, Oriented x3 HEENT: Atraumatic, PERRLA, EOMI Neck: Supple, JVD not distended Respiratory: Clear to auscultation bilaterally, Normal air movement Cardiovascular: Regular rate/rhythm, Normal S1 S2, No murmurs Gastrointestinal: Normal bowel sounds, Soft and benign, Non-distended, No tenderness Musculoskeletal: No clubbing, No swelling, No tenderness Integumentary: No rashes Neurological: Normal speech, Normal tone, Sensation intact, Cranial nerves 3-12 intact, Normal affect - Studies Medications List Reviewed: Yes Assessment & Plan - Problems (Diagnosis) (1) Acute renal failure Current Visit: No Status: Acute Qualifiers: (2) PAD (peripheral artery disease) Onset Date: 06/02/17 Current Visit: No Status: Acute (3) Right leg DVT Onset Date: 06/02/17 Current Visit: No Status: Acute Qualifiers: (4) Anemia Current Visit: No Status: Chronic Qualifiers: Anemia type: iron deficiency (5) HTN (hypertension) Onset Date: 06/02/17 Current Visit: No Status: Chronic Qualifiers: Hypertension type: essential hypertension - Plan Plan: Continue with current plan of care: 1. Continue with anti coagulation 2. Await V/Q scan low probability 3. IV hydration for renal function and renal function has improved 4. Eliquis sent to pharmacy to see if covered by insurance awaiting to see if this is covered 5. Pain control 6. Nutritional supplementation for anemia Discharge Plan: Home Plan to discharge in: 48 Hours - Advance Directives Does patient have a Living Will: No Does patient have a Durable POA for Healthcare: No - Code Status/Comfort Care Code Status: Full Code Critical Care: No Time Spent Managing PTS Care (In Minutes): 35
[2017-06-12] MEDS: SOD FERRIC GLUC COMPLX/SUCROSE 125 MG in NA CHLORIDE 0.9% 100 ML IV SCH ×2 (08:48→20:43)
[2017-06-12] MEDS: APIXABAN 5 MG TABLET PO SCH ×2 (08:49→20:44)
[2017-06-12] MEDS: ESCITALOPRAM 20 MG TAB PO SCH ×2 (08:49→20:45)
[2017-06-12] MEDS: BUSPIRONE HCL 5 MG TABLET PO SCH ×2 (08:49→20:44)
[2017-06-12 11:44] LABS: Absolute Lymphocytes (CBC) 2.8 K/uL (0.7-4.9); Absolute Monocytes 0.4 K/uL (0.1-1.3); Absolute Neutrophil 2.8 K/uL (1.8-8.0); Basophils % 0.4 % (0-1.3); Eosinophils % 3.2 % (0-4.4); Hematocrit 24.7 % (39.6-49.0); Lymphocytes % 44.9 % (15.3-44.8); MCH 25.4 pg (27.0-35.0); MCV 80.4 fL (80-100); MPV 7.6 fL (7.6-11.3); Monocytes % 6.8 % (3.3-12.3); RBC Red Blood Cell Count 3.07 M/uL (4.33-5.43)
[2017-06-12 12:12] LABS: Magnesium 1.9 mg/dL (1.8-2.5); Phosphorus 3.1 mg/dL (2.5-4.3); Potassium 4.6 mEq/L (3.6-5.0)
[2017-06-12] MEDS ORDERED: NA CHLORIDE 0.9% 250 ML ONE (15:08)
[2017-06-12] MEDS: QUETIAPINE 100MG TAB PO SCH (20:44)
[2017-06-12] MEDS: TRAZODONE 50 MG TABLET PO SCH (20:45)
[2017-06-12 21:01] VITALS: O2SAT 100
[2017-06-12 22:23] LABS: Hematocrit 28.8 % (39.6-49.0)
[2017-06-13] MEDS: NA CHLORIDE 0.9% 1,000 ML IV SCH ×2 (01:38→09:28)
[2017-06-13] MEDS ORDERED: CYANOCOBALAMIN 1000MCG/ML INJ IM ONE (05:23)
[2017-06-13] MEDS: PANTOPRAZOLE 40MG TABLET PO SCH (06:03)
[2017-06-13] MEDS ORDERED: SOD FERRIC GLUC COMPLX/SUCROSE 125 MG in NA CHLORIDE 0.9% 100 ML IV SCH (09:00)
[2017-06-13] MEDS: BUSPIRONE HCL 5 MG TABLET PO SCH (09:29)
[2017-06-13] MEDS: FOLIC ACID 1 MG in NA CHLORIDE 0.9% 50 ML IV SCH (09:29)
[2017-06-13] MEDS: APIXABAN 5 MG TABLET PO SCH (09:29)
[2017-06-13] MEDS: ESCITALOPRAM 20 MG TAB PO SCH (09:29)
[2017-06-13 11:15] LABS: Absolute Lymphocytes (CBC) 2.5 K/uL (0.7-4.9); Absolute Monocytes 0.4 K/uL (0.1-1.3); Basophils % 0.5 % (0-1.3); Eosinophils % 3.8 % (0-4.4); Hematocrit 29.3 % (39.6-49.0); Lymphocytes % 40.4 % (15.3-44.8); MCH 26.1 pg (27.0-35.0); MCV 82.2 fL (80-100); MPV 7.6 fL (7.6-11.3); Monocytes % 7.1 % (3.3-12.3); RBC Red Blood Cell Count 3.57 M/uL (4.33-5.43)
[2017-06-13 11:29] LABS: Magnesium 1.8 mg/dL (1.8-2.5); Phosphorus 3.3 mg/dL (2.5-4.3); Potassium 5.1 mEq/L (3.6-5.0)
--- NOTE | 2017-06-13 12:59 | EKG ---
Test Date: 2017-06-10 Test Time: 21:33:45 [employer] Programmer: YAKOV MEASUREMENT RESULTS: Intervals: Rate: 87 VA: QRSD: 80 QT: 370 QTc: 445 [place]: P: VA: QRS: -47 T: 44 INTERPRETIVE STATEMENTS: Sinus rhythm Left axis Abnormal ECG Compared to ECG 06/01/2017 09:53:26 no significant change from previous ECG Electronically Signed On 06-13-17 12:58:18 CDT by Luis Masters
--- NOTE | 2017-06-13 14:40 | P.PN ---
Date of Service: 06/12/17 Subjective Patient required transfusion x 2u PRBC. Hgb stable; awaiting insurance approval of anticoagulant Review of Systems 10-point ROS is otherwise unremarkable Physical Examination - Vital Signs reviewed - Physical Exam General: Alert, In no apparent distress, Oriented x3 Respiratory: Clear to auscultation bilaterally, Normal air movement Cardiovascular: Regular rate/rhythm, Normal S1 S2, No murmurs Gastrointestinal: Normal bowel sounds, Soft and benign, Non-distended, No tenderness Musculoskeletal: No clubbing, No swelling, No tenderness Assessment & Plan - Problems (Diagnosis) (1) Acute renal failure Current Visit: No Status: Acute Qualifiers: (2) PAD (peripheral artery disease) Onset Date: 06/02/17 Current Visit: No Status: Acute (3) Right leg DVT Onset Date: 06/02/17 Current Visit: No Status: Acute Qualifiers: (4) Anemia Current Visit: No Status: Chronic Qualifiers: Anemia type: iron deficiency (5) HTN (hypertension) Onset Date: 06/02/17 Current Visit: No Status: Chronic Qualifiers: Hypertension type: essential hypertension - Plan Plan: Continue with current plan of care: 1. Continue with anti coagulation; insurance approval 2. Monitor H&H 3. IV hydration for renal function and renal function has improved 4. Xarelto sent to pharmacy to see if covered by insurance awaiting to see if this is covered 5. Pain control 6. Nutritional supplementation for anemia
[2017-06-13] MEDS ORDERED: D5W 1,000 ML with NA BICARB 8.4% 50 MEQ IV SCH ×2 (15:00)
[2017-06-13 17:06] VITALS: BP 104/58; TEMP 98.4
--- NOTE | 2017-06-15 07:20 | P.DS ---
Discharge Date: 06/13/17 Disposition: AMA-LEFT AGAINST MEDICAL ADVIC Discharge Condition: GOOD Reason for Admission: Acute kidney injury & history of DVT - Problems (1) Acute renal failure Status: Acute Qualifiers: (2) PAD (peripheral artery disease) Onset Date: 06/02/17 Status: Acute (3) Right leg DVT Onset Date: 06/02/17 Status: Acute Qualifiers: (4) Anemia Status: Chronic Qualifiers: Anemia type: iron deficiency (5) HTN (hypertension) Onset Date: 06/02/17 Status: Chronic Qualifiers: Hypertension type: essential hypertension Brief History of Present Illness: Patient is a 51-year-old gentleman who came into the hospital with diffuse pain. Patient was recently in the hospital a week ago and was diagnose with a partially occlusive DVT. However, after a disagreement with his provider he left against medical advice. Patient states he has been feeling worse since leaving. He decided to come back into the hospital for further evaluation. He was having chest pain and back pain. His workup in the ER revealed he was in acute renal failure. He also has anemia. He did not have any blood thinning medications so he has not been able to treat his DVT appropriately. He will be admitted to the hospital for IV hydration and additional testing ordered by ER physician. Will also get his prescription for his anti coagulation sent off to the pharmacy. Hopefully they will approve it. He may get to go home in the next 24-48 hr depending on his renal response to fluids. Hospital Course: Patient left against medical advice prior to completing treatment Vital Signs/Physical Exam: Temp Pulse Resp BP Pulse Ox 98.4 F 88 18 104/58 L 100 06/13/17 16:00 06/13/17 16:00 06/13/17 16:00 06/13/17 16:00 06/13/17 16:00 Laboratory Data at Discharge: WBC 6.1 K/uL (4.3-10.9) 06/13/17 10:55 Hgb 9.3 g/dL (13.6-17.9) L 06/13/17 10:55 Hct 29.3 % (39.6-49.0) L 06/13/17 10:55 Plt Count 248 K/uL (152-406) 06/13/17 10:55 PT 10.8 SECONDS (9.5-12.5) 06/11/17 04:40 INR 0.92 06/11/17 04:40 APTT 33.1 SECONDS (24.3-36.9) 06/11/17 04:40 Sodium 143 mEq/L (135-145) 06/13/17 10:55 Potassium 5.1 mEq/L (3.6-5.0) H 06/13/17 10:55 BUN 21 mg/dL (6-20) H 06/13/17 10:55 Creatinine 1.69 mg/dL (0.61-1.24) H 06/13/17 10:55 Glucose 93 mg/dL (65-120) 06/13/17 10:55 Phosphorus 3.3 mg/dL (2.5-4.3) 06/13/17 10:55 Magnesium 1.8 mg/dL (1.8-2.5) 06/13/17 10:55 Total Bilirubin 0.4 mg/dL (0.3-1.2) 06/11/17 04:40 AST 19 IU/L (10-42) 06/11/17 04:40 ALT 14 IU/L (10-60) 06/11/17 04:40 Alkaline Phosphatase 83 IU/L (42-121) 06/11/17 04:40 B-Natriuretic Peptide 14 pg/ml (<=100) 06/10/17 20:50 Lipase 36 U/L (22-51) 06/10/17 20:50 Home Medications: Buspirone HCl [Buspar] 10 mg PO BID 06/01/17 Escitalopram [Lexapro*] 20 mg PO BID 06/01/17 Esomeprazole Mag Trihydrate [Nexium] 40 mg PO DAILY 06/01/17 Lisinopril 5 mg PO DAILY 06/01/17 Quetiapine Fumarate [Seroquel] 800 mg PO BEDTIME 06/01/17 Trazodone [Desyrel*] 100 mg PO BEDTIME 06/01/17 Cyanocobalamin/Cobamamide [Vitamin B-12 5,000 Mcg Tab Sl] 1 each SL DAILY #30 tab.subl 06/12/17 Ferrous Gluconate 324 mg PO TID #90 tablet 06/12/17 Folic Acid 1 mg PO DAILY #30 tablet 06/12/17 Dabigatran Etexilate Mesylate [Pradaxa] 150 mg PO BID #60 capsule 06/13/17 Rivaroxaban [Xarelto] 20 mg PO DAILY #30 tablet 06/13/17 New Medications: Cyanocobalamin/Cobamamide [Vitamin B-12 5,000 Mcg Tab Sl] 1 each SL DAILY #30 tab.subl Dabigatran Etexilate Mesylate [Pradaxa] 150 mg PO BID #60 capsule Ferrous Gluconate 324 mg PO TID #90 tablet Folic Acid 1 mg PO DAILY #30 tablet Rivaroxaban [Xarelto] 20 mg PO DAILY #30 tablet Patient Discharge Instructions: patient left against medical advice Diet: Renal Activity: Fall precautions Time spent managing pt's care (in minutes): 5
== END 2017-06-13 18:10 | disposition left against medical advice (07) | DRG 683 ==
LOC: ER 20:32 → ERHOLD 21:59 → 2ND 23:20
PROVIDERS: ADMIT Hospitalist; ATTEND Hospitalist
PROC: 30233N1 Transfusion of Nonautologous Red Blood Cells into Peripheral Vein, Percutaneous Approach (ICD-10-PCS; principal; 2017-06-12)
DX: N17.9 Acute kidney failure, unspecified (principal); I82.412 Acute embolism and thrombosis of left femoral vein; I73.9 Peripheral vascular disease, unspecified; D50.9 Iron deficiency anemia, unspecified; I10 Essential (primary) hypertension; F31.9 Bipolar disorder, unspecified; E78.5 Hyperlipidemia, unspecified; Z53.21 Procedure and treatment not carried out due to patient leaving prior to being seen by health care provider
CPT/HCPCS: 36415; 71045; 78582; 80048; 80053; 80076; 80307; 81003; 82550; 82553; 82607; 82746; 83540; 83690; 83735; 83880; 84100; 84484; 85014; 85018; 85025; 85044; 85610; 85730; 86850; 86900; 86901; 93005; 93970; 96361; 96372; 96374; 99285; A9540; A9558; C9113; J1650; J2270; J2916; J3420; J7030; P9016

== ENCOUNTER 2017-06-17 18:43 | Observation (INO) | payer OTHER ==
--- OUTSIDE RECORDS SUMMARY | 2017-06-17 18:45 | XMS REPORT | Clinical Summary ---
:1965 Author Organization [facility] Address [address] [place] [address] Care Team Providers Name Role Phone Asked, [...] of unknown etiology Martina Russell MD after 06/16/2016 Immunizations Name Dates Previously Given Next Due [...] 40.0 % Specimen Performing Laboratory Plasma specimen [facility] DEPARTMENT OF PATHOLOGY AND GENOMIC MEDICINE [address] [place] [address] Estimated GFR (05/25/2017 7:25 AM)Only the most [...] and Americans. Specimen Performing Laboratory Plasma specimen [facility] DEPARTMENT OF PATHOLOGY AND GENOMIC MEDICINE [address] [place] [id number] CBC with platelet and differential (05/25/2017 7:25 [...] (promyelocytes, myelocytes, metamyelocytes) Specimen Performing Laboratory Blood [facility] DEPARTMENT OF PATHOLOGY AND [facility] MEDICINE [address] [place] [id number] Thyroid stimulating hormone (05/25/2017 7:25 AM)Only the most recent of2 resultswithin the time period is included. Component Value Ref Range TSH 1.22 0.27 - 4.20 uIU/mL Specimen Performing Laboratory Plasma specimen [facility] DEPARTMENT OF PATHOLOGY AND GENOMIC MEDICINE [address] [place] [id number] Folate level (05/25/2017 7:25 AM) Component Value Ref Range Folate 3.3 (L) 4.8 - 24.2 ng/mL Specimen Performing Laboratory Serum [facility] DEPARTMENT OF PATHOLOGY AND [address] [address] Ferritin level (05/25/2017 7:25 AM) Component Value Ref Range Ferritin level 18 (L) 30 - 400 ng/mL Specimen Performing Laboratory Plasma specimen [facility] DEPARTMENT OF PATHOLOGY AND [address] [address] Vitamin B12 level (05/25/2017 7:25 AM) Component Value Ref Range Vitamin B12 250 211 - 946 pg/mL Comment: Significant overlap exists between normal and deficiency states. However, most patients with deficiencies will have Serum B12 <200 pg/mL. Specimen Performing Laboratory Serum [facility] DEPARTMENT OF PATHOLOGY AND [address] [address] Acetaminophen level (05/25/2017 7:25 AM)Only the most recent of2 resultswithin the time period is included. Component Value Ref Range Acetaminophen level <15.0 10.0 - 30.0 ug/mL Comment: Therapeutic 10-30 ug/mL Possible Toxicity 150-200 ug/mL Probable Toxicity >200 ug/mL Specimen Performing Laboratory Plasma specimen [facility] PATHOLOGY AND [address] [address] Comprehensive metabolic panel (05/25/2017 7:25 AM)Only the [...] 5.7 (L) 6.3 - 8.3 g/dL Comment: [place] 4.6-7.0 g/dL 1 week 4.4-7.6 g/dL 7 months-1year5.1-7.3 g/dL 1-2 years5.6-7.5 g/dL >3 years6.0-8.0 g/dL 18-150 6.3-8.3 g/dL Albumin 2.9 (L) 3.5 - 5.0 g/dL A/G ratio 1.0 0.7 - 3.8 Alkaline phosphatase 91 40 - 129 U/L AST 26 10 - 50 U/L ALT 16 5 - 50 U/L Total bilirubin 0.3 0.0 - 1.2 mg/dL Specimen Performing Laboratory Plasma specimen [facility] DEPARTMENT OF PATHOLOGY AND GENOMIC MEDICINE [address] [place] [address] Urinalysis screen and microscopy, with reflex to [...] UA None seen Specimen Performing Laboratory Urine [facility] DEPARTMENT OF PATHOLOGY AND [facility] MEDICINE [address] [place] [address] Urine drugs of abuse screen (05/25/2017 4:10 AM) Component Value Ref Range Amphetamine screen, urine Negative Barbiturate screen, urine Negative Benzodiazepine screen, urine Negative Cannabinoid screen, urine Negative Cocaine screen, urine Negative Methadone metabolite (EDDP), urine Negative Opiates screen, urine Negative Oxycodone screen, urine Negative Phencyclidine screen, urine Negative Tricyclic screen, urine Negative Comment: Drug screen minimum concentration of detectability [id number] ng/mL Barbiturates 200 ng/mL Pnejwirtqpzmbco154 ng/mL Sibimzg911 ng/mL Virobxqtj072 ng/mL Yxhnglm637 ng/mL Ofowamtcn273 ng/mL Phencyclidine 25 ng/mL Nrxyxciqdnxf58 ng/mL Cugqjagmif6778 ng/mL Negative test results indicates presumptive evidence of lack of clinically significant drug concentration in this urine specimen. Positive test results are presumptive evidence of clinically significant drug concentration in this urine specimen. Testing performed for medical purposes only. Specimen Performing Laboratory Urine [facility] DEPARTMENT PATHOLOGY AND [address] [address] Urine culture (05/25/2017 4:10 AM) Component Value Ref Range Urine culture SEE COMMENTComment: Bacteriuria screen negative. Specimen Performing Laboratory [facility] PATHOLOGY AND [address] [address] Basic metabolic panel (05/25/2017 4:10 AM) Component [...] 10.2 mg/dL Specimen Performing Laboratory Plasma specimen [facility] PATHOLOGY [address] [address] Troponin (05/24/2017 11:30 PM) Component Value Ref Range Troponin <0.30 0.00 - 0.30 ng/mL Comment: 0.30 - 1.49 ng/mlMay indicate increased risk of acute coronary syndrome. >=1.5 ng/mlConsistent with acute myocardial infarction. The diagnostic value of a single normal or non-diagnostic result is questionable.Serial samples at 2-6 hour intervals are required to rule out acute myocardial injury. Specimen Performing Laboratory Plasma specimen [facility] DEPARTMENT OF PATHOLOGY AND [address] [address] Partial thromboplastin time, activated (05/24/2017 11:30 PM) Component Value Ref Range PTT 23.5 23.0 - 36.0 sec Comment: PTT therapeutic range for unfractionated heparin is 61.0-112.0 seconds which corresponds to Anti-Xa 0.3-0.7 U/ml. Specimen Performing Laboratory Blood [facility] PATHOLOGY [address] [address] Prothrombin time with INR (05/24/2017 11:30 PM) Component Value Ref Range Prothrombin time 13.0 12.0 - 15.0 sec INR 1.0 Comment: The International Normalized Ratio (INR) is a therapeutic monitoring tool for patients who are stable on oral anticoagulant therapy. An INR of 2.0-3.0 is suggested for deep vein thrombosis/pulmonary embolism. Specimen Performing Laboratory Blood [facility] DEPARTMENT OF PATHOLOGY AND [facility] MEDICINE [address] [place] [address] Alcohol level, blood (05/24/2017 11:30 PM) Component Value Ref Range Alcohol None Detected mg/dL Comment: Normal None Detected Legal Intoxication in [place]80 mg/dL (0.08%) - Whole Blood Toxic Fcnbtyajhguya415 mg/dL (0.2%) Potentially Vrxjw117 - 500 mg/dL (0.35 - 0.5%) Alcohol percent None Detected % Specimen Performing Laboratory Plasma specimen [facility] DEPARTMENT OF PATHOLOGY AND GENOMIC MEDICINE [address] [place] [address] Salicylate level (05/24/2017 11:30 PM) Component Value Ref Range Salicylate <3.0 3.0 - 30.0 mg/dL Specimen Performing Laboratory Plasma specimen [facility] DEPARTMENT OF PATHOLOGY AND GENOMIC MEDICINE [address] [place] [address] ECG 12 lead (05/24/2017 11:05 PM) Component Value Ref Range Ventricular rate 80 Atrial rate 80 AL interval 190 QRSD interval 84 QT interval 374 QTC interval 431 P axis 1 33 QRS axis 1 -31 T wave axis 21 EKG impression Normal sinus rhythm-Left axis deviation-Low voltage QRS-Borderline ECG-- Specimen Performing Laboratory [facility] MUSE [address] [place] [id number] after 06/16/2016 Insurance Payer Benefit Plan / Group Subscriber ID Type Phone Address MEDICARE MEDICARE PART A AND B xxxxxxxxxx Medicare [place], [place] Home: [address] [place] [phone] [place], [place] [address]
--- NOTE | 2017-06-17 18:57 | ER ---
Nurse's Notes [facility] Name: Jeovany Buckley Age: 51 yrs Sex: Male : 1965 Arrival Date: 06/17/2017 Time: 18:40 Bed 8 Private MD: Diagnosis: Other chest pain;Acute embolism and thrombosis of other specified deep vein of left lower extremity Presentation: 06/17 18:30 Presenting complaint: EMS states: Pt c/o chest pain that radiates to left arm, started jl7 45 minutes ago. He was discharged last week with a DVT in the right leg, had not taken the blood thinner due to confusion from the pharmacist. Transition of care: patient was not received from another setting of care. Onset of symptoms was June 17, 2017. Care prior to arrival: None. 18:30 Method Of Arrival: EMS: [facility] jl7 18:30 Acuity: JED 3 jl7 Triage Assessment: 18:46 General: Appears in no apparent distress. uncomfortable, Behavior is calm, cooperative, jl7 appropriate for age. Pain: Complains of pain in anterior aspect of left upper chest Pain radiates to left arm Pain currently is 2 out of 10 on a pain scale. at worst was 9 out of 10 on a pain scale. Quality of pain is described as sharp, Pain began 1 hour ago. Is intermittent. EENT: No signs and/or symptoms were reported regarding the EENT system. Neuro: Level of Consciousness is awake, alert, obeys commands, Oriented to person, place, time, situation. Cardiovascular: Heart tones S1 S2 present Patient's skin is warm and dry. Respiratory: Airway is patent Respiratory effort is even, unlabored, Respiratory pattern is regular, symmetrical, Breath sounds are clear bilaterally. GI: No signs and/or symptoms were reported involving the gastrointestinal system. : No signs and/or symptoms were reported regarding the genitourinary system. Derm: Skin is pink, warm \T\ dry. Musculoskeletal: No signs and/or symptoms reported regarding the musculoskeletal system. Historical: - Allergies: 18:46 PENICILLINS; jl7 18:46 Sulfa (Sulfonamide Antibiotics); jl7 18:46 Aspirin; jl7 - Home Meds: 18:46 buspirone 10 mg Oral tab 1 tab 2 times per day [Active]; Lexapro 20 mg Oral tab 1 tab jl7 once daily [Active]; Nexium 40 mg Oral cpDR 1 cap once daily [Active]; Eliquis oral oral [Active]; Seroquel 400 mg Oral tab 1 tab 2 times per day [Active]; Trazodone Oral [Active]; Tramadol Oral [Active]; - PMHx: 18:46 Bipolar disorder; Hale's Disease; Hypertension; Renal Disease; DVT; jl7 - Immunization history:: Adult Immunizations up to date. - Social history:: Smoking status: Patient uses tobacco products, smokes one-half pack cigarettes per day. - Family history:: not pertinent. Screenin:49 Abuse screen: Denies threats or abuse. Denies injuries from another. Nutritional 7 screening: No deficits noted. Tuberculosis screening: No symptoms or risk factors identified. Fall Risk IV access (20 points). Total Segura Fall Scale indicates No Risk (0-24 pts). Assessment: 19:10 General: Appears in no apparent distress. uncomfortable, Reviewed previous assessment, tl2 agreed with its accuracy. . 20:08 Reassessment: Patient appears in no apparent distress at this time. Patient and/or tl2 family updated on plan of care and expected duration. Pain level reassessed. Patient is alert, oriented x 3, equal unlabored respirations, skin warm/dry/pink. Patient states feeling better. 21:23 Reassessment: Patient appears in no apparent distress at this time. Patient and/or tl2 family updated on plan of care and expected duration. Pain level reassessed. Patient is alert, oriented x 3, equal unlabored respirations, skin warm/dry/pink. Pt stable and ready for transport to room Patient states feeling better. Vital Signs: 18:46 BP 130 / 88; Pulse 102; Resp 18 S; Temp 98.8(O); Pulse Ox 100% on R/A; Weight 81.65 kg [facility] (R); Height 5 ft. 10 in. (177.80 cm) (R); Pain 2/10; 20:05 BP 129 / 88; Pulse 94; Resp 16; Pulse Ox 100% on R/A; tl2 21:23 BP 125 / 82; Pulse 98; Resp 18; Pulse Ox 99% on R/A; tl2 18:46 Body Mass Index 25.83 (81.65 kg, 177.80 cm) jl7 ED Course: 18:40 Patient arrived in ED. jl7 18:43 Triage completed. jl7 18:45 Kevin Mojica MD is Attending Physician. marky 18:46 Arm band placed on right wrist. jl7 18:49 Patient has correct armband on for positive identification. Placed in gown. Bed in low jl7 position. Call light in reach. Side rails up X 1. collections attorney on. Pulse ox on. NIBP on. Warm blanket given. 18:49 Patient maintains SpO2 saturation greater than 95% on room air. jl7 18:54 Omid Gallo MD is Hospitalizing Provider. marky 18:57 Initial lab(s) drawn, by tn, sent to lab. Inserted saline lock: 22 gauge in left jl7 antecubital area, using aseptic technique. Blood collected. 19:07 Brian Gamble, JOSSELINE is Primary Nurse. ae1 19:13 Report given to JOSSELINE Moreno. jl7 19:17 EKG done, by ED staff. Missed attempt(s): 22 gauge antecubital area. 5 20:02 Urine collected: clean catch specimen, jeovany colored, Amount Voided: 500mL. cb2 20:07 X-ray completed. Portable x-ray completed in exam room. Patient tolerated procedure kc2 well. 21:23 No provider procedures requiring assistance completed. Patient admitted, IV remains in tl2 place. Administered Medications: 19:19 Drug: NS 0.9% 1000 ml Route: IV; Rate: 1 bolus; Site: left antecubital; tl2 21:25 Follow up: IV Status: Completed infusion; IV Intake: 1000ml tl2 19:19 Drug: Lovenox 1 mg/kg Route: Sub-Q; Site: left lower abdomen; tl2 21:25 Follow up: Response: No adverse reaction tl2 19:21 Drug: morphine 2 mg Route: IVP; Site: left antecubital; tl2 20:00 Follow up: Response: No adverse reaction; Pain is decreased tl2 19:21 Drug: Zofran 4 mg Route: IVP; Site: left antecubital; tl2 20:00 Follow up: Response: No adverse reaction tl2 Intake: 21:25 IV: 1000ml; Total: 1000ml. tl2 Outcome: 18:56 Decision to Hospitalize by Provider. marky 21:23 Admitted to Tele accompanied by nurse, via stretcher, room 427, with chart, Report tl2 called to JOSSELINE Cottrell 21:23 Condition: stable 21:23 Discharge instructions given to patient, Instructed on the need for admit. 21:26 Patient left the ED. tl2 Signatures: Kevin Mojica MD MD cha Carr, Kelsie 2 Tiffanie Marcos RN RN tl2 Brian Gamble RN RN [email or web address] Elizabeth Elizabeth [facility] Nam Cunningham RN RN 7 Tyler Rose [facility]
--- NOTE | 2017-06-17 18:57 | EDPHYS ---
Physician Documentation [facility] Name: Jeovany Buckley Age: 51 yrs Sex: Male : 1965 Arrival Date: 06/17/2017 Time: 18:40 Bed 8 Private MD: ED Physician Kevin Mojica HPI: 06/17 18:50 This 51 yrs old Male presents to ER via EMS with complaints of Chest Pain. marky 18:50 The patient or guardian reports chest pain that is located primarily in the anterior marky chest wall. Onset: just prior to arrival. The pain does not radiate. Associated signs and symptoms: The patient has no apparent associated signs or symptoms. The chest pain is described as dull, a pressure. Modifying factors: The symptoms are alleviated by nothing. the symptoms are aggravated by nothing. Severity of pain: At its worst the pain was mild moderate in the emergency department the pain is unchanged. The patient has not experienced similar symptoms in the past. Historical: - Allergies: 18:46 PENICILLINS; jl7 18:46 Sulfa (Sulfonamide Antibiotics); jl7 18:46 Aspirin; jl7 - Home Meds: 18:46 buspirone 10 mg Oral tab 1 tab 2 times per day [Active]; Lexapro 20 mg Oral tab 1 tab jl7 once daily [Active]; Nexium 40 mg Oral cpDR 1 cap once daily [Active]; Eliquis oral oral [Active]; Seroquel 400 mg Oral tab 1 tab 2 times per day [Active]; Trazodone Oral [Active]; Tramadol Oral [Active]; - PMHx: 18:46 Bipolar disorder; Kaveh's Disease; Hypertension; Renal Disease; DVT; jl7 - Immunization history:: Adult Immunizations up to date. - Social history:: Smoking status: Patient uses tobacco products, smokes one-half pack cigarettes per day. - Family history:: not pertinent. ROS: 18:50 Constitutional: Negative for fever, chills, and weight loss, Eyes: Negative for injury, marky pain, redness, and discharge, ENT: Negative for injury, pain, and discharge, Neck: Negative for injury, pain, and swelling, Respiratory: Negative for shortness of breath, cough, wheezing, and pleuritic chest pain, Abdomen/GI: Negative for abdominal pain, nausea, vomiting, diarrhea, and constipation, Back: Negative for injury and pain, : Negative for injury, bleeding, discharge, and swelling, MS/Extremity: Negative for injury and deformity, Skin: Negative for injury, rash, and discoloration, Neuro: Negative for headache, weakness, numbness, tingling, and seizure, Psych: Negative for depression, anxiety, suicide ideation, homicidal ideation, and hallucinations, Allergy/Immunology: Negative for hives, rash, and allergies, Endocrine: Negative for neck swelling, polydipsia, polyuria, polyphagia, and marked weight changes. 18:50 Cardiovascular: Positive for chest pain, of the chest. Exam: 18:50 Constitutional: This is a well developed, well nourished patient who is awake, alert, marky and in no acute distress. Head/Face: Normocephalic, atraumatic. Eyes: Pupils equal round and reactive to light, extra-ocular motions intact. Lids and lashes normal. Conjunctiva and sclera are non-icteric and not injected. Cornea within normal limits. Periorbital areas with no swelling, redness, or edema. ENT: Nares patent. No nasal discharge, no septal abnormalities noted. Tympanic membranes are normal and external auditory canals are clear. Oropharynx with no redness, swelling, or masses, exudates, or evidence of obstruction, uvula midline. Mucous membranes moist. Neck: Trachea midline, no thyromegaly or masses palpated, and no cervical lymphadenopathy. Supple, full range of motion without nuchal rigidity, or vertebral point tenderness. No Meningismus. Chest/axilla: Normal chest wall appearance and motion. Nontender with no deformity. No lesions are appreciated. Cardiovascular: Regular rate and rhythm with a normal S1 and S2. No gallops, murmurs, or rubs. Normal PMI, no JVD. No pulse deficits. Respiratory: Lungs have equal breath sounds bilaterally, clear to auscultation and percussion. No rales, rhonchi or wheezes noted. No increased work of breathing, no retractions or nasal flaring. Abdomen/GI: Soft, non-tender, with normal bowel sounds. No distension or tympany. No guarding or rebound. No evidence of tenderness throughout. Back: No spinal tenderness. No costovertebral tenderness. Full range of motion. Male : Normal genitalia with no discharge or lesions. Skin: Warm, dry with normal turgor. Normal color with no rashes, no lesions, and no evidence of cellulitis. MS/ Extremity: Pulses equal, no cyanosis. Neurovascular intact. Full, normal range of motion. Neuro: Awake and alert, GCS 15, oriented to person, place, time, and situation. Cranial nerves II-XII grossly intact. Motor strength 5/5 in all extremities. Sensory grossly intact. Cerebellar exam normal. Normal gait. Psych: Awake, alert, with orientation to person, place and time. Behavior, mood, and affect are within normal limits. Vital Signs: 18:46 BP 130 / 88; Pulse 102; Resp 18 S; Temp 98.8(O); Pulse Ox 100% on R/A; Weight 81.65 kg jl7 (R); Height 5 ft. 10 in. (177.80 cm) (R); Pain 2/10; 20:05 BP 129 / 88; Pulse 94; Resp 16; Pulse Ox 100% on R/A; tl2 21:23 BP 125 / 82; Pulse 98; Resp 18; Pulse Ox 99% on R/A; tl2 18:46 Body Mass Index 25.83 (81.65 kg, 177.80 cm) jl7 MDM: 18:45 Patient medically screened. marky 18:50 Data reviewed: vital signs, nurses notes, lab test result(s), EKG, radiologic studies, marky plain films. 06/17 18:50 Order name: Basic Metabolic Panel [facility] 06/17 18:50 Order name: BNP marky 06/17 18:50 Order name: CBC with Diff 06/17 18:50 Order name: Ckmb 06/17 18:50 Order name: CPK 06/17 18:50 Order name: LFT's 06/17 18:50 Order name: Magnesium 06/17 18:50 Order name: PT-INR 06/17 18:50 Order name: Ptt, Activated 06/17 18:50 Order name: Troponin (emerg Dept Use Only) 06/17 18:50 Order name: XRAY Chest (1 view) 06/17 18:50 Order name: Lipase 06/17 20:25 Order name: Urine Dipstick--Ancillary (enter results) rg2 06/17 21:01 Order name: Urine Dipstick-Ancillary EDMS 06/17 18:50 Order name: EKG; Complete Time: 18:50 [facility] 06/17 18:50 Order name: Cardiac monitoring; Complete Time: 19:00 [facility] 06/17 18:50 Order name: EKG - Nurse/Tech; Complete Time: 19:00 [facility] 06/17 18:50 Order name: IV Saline Lock; Complete Time: 19:00 [facility] 06/17 18:50 Order name: Labs collected and sent; Complete Time: 19:00 [facility] 06/17 18:50 Order name: O2 Per Protocol; Complete Time: 19:00 [facility] 06/17 18:50 Order name: O2 Sat Monitoring; Complete Time: 19:00 [facility] 06/17 18:50 Order name: Urine Dipstick-Ancillary (obtain specimen); Complete Time: 20:04 [facility] 06/17 20:21 Order name: RAD EDMT Administered Medications: 19:19 Drug: NS 0.9% 1000 ml Route: IV; Rate: 1 bolus; Site: left antecubital; tl2 21:25 Follow up: IV Status: Completed infusion; IV Intake: 1000ml tl2 19:19 Drug: Lovenox 1 mg/kg Route: Sub-Q; Site: left lower abdomen; tl2 21:25 Follow up: Response: No adverse reaction tl2 19:21 Drug: morphine 2 mg Route: IVP; Site: left antecubital; tl2 20:00 Follow up: Response: No adverse reaction; Pain is decreased tl2 19:21 Drug: Zofran 4 mg Route: IVP; Site: left antecubital; tl2 20:00 Follow up: Response: No adverse reaction tl2 Disposition: 06/17/17 18:56 Hospitalization ordered by Omid Gallo for Observation. Preliminary diagnosis are Other chest pain, Acute embolism and thrombosis of other specified deep vein of left lower extremity. - Bed requested for Telemetry/MedSurg (observation). - Status is Observation. tl2 - Condition is Stable. - Problem is new. - Symptoms have improved. UTI on Admission? No Signatures: Dispatcher [employer] Maryjane Elliott RN RN kl Anderson, Corey, MD MD cha Knox, Taylor, RN RN tl2 Nam Cunningham RN RN jl7
[2017-06-17 19:28] LABS: Absolute Lymphocytes (CBC) 1.5 K/uL (0.7-4.9); Absolute Monocytes 0.8 K/uL (0.1-1.3); Basophils % 0.2 % (0-1.3); Eosinophils % 2.5 % (0-4.4); Hematocrit 32.6 % (39.6-49.0); MCV 81.7 fL (80-100); MPV 7.6 fL (7.6-11.3); Monocytes % 7.1 % (3.3-12.3); RBC Red Blood Cell Count 3.99 M/uL (4.33-5.43)
[2017-06-17 19:29] LABS: Potassium 4.4 mEq/L (3.6-5.0); Protime INR 1.01
[2017-06-17] MEDS ORDERED: MORPHINE 4 MG/ML SYR ONE (19:30)
[2017-06-17] MEDS ORDERED: NA CHLORIDE 0.9% 1,000 ML ONE (19:30)
[2017-06-17] MEDS ORDERED: ENOXAPARIN 80 MG/0.8 ML SQ ONE (19:30)
[2017-06-17] MEDS ORDERED: ONDANSETRON 4 MG/2 ML VIAL ONE (19:30)
[2017-06-17 19:35] LABS: Albumin 4.1 g/dL (3.2-5.5); Bilirubin Direct 0.1 mg/dL (0-0.2); Bilirubin Total 0.4 mg/dL (0.3-1.2); Magnesium 1.5 mg/dL (1.8-2.5)
[2017-06-17 19:37] LABS: CKMB Creatine Kinase MB 2.6 ng/ml (0.3-4.0)
--- NOTE | 2017-06-17 20:07 | P.HP ---
Certification for Inpatient Patient admitted to: Observation With expected LOS: <2 Midnights Practitioner: I am a practitioner with admitting privileges, knowledge of patient current condition, hospital course, and medical plan of care. Services: Services provided to patient in accordance with Admission requirements found in Title 42 Section 412.3 of the Code of Federal Regulations Patient History Date of Service: 06/17/17 Reason for admission: chest pain History of Present Illness: Mr Buckley is a 51 years old male with history of bipolar disorder, Kaveh' s disease, HTN, CKD, DVT diagnosed on 06/01/17, he supouse to be anticoagulated but for some reason he got 2 different anticoagulants. The pharamacist supposedly clarify the order with the doctor, however, he has never received a call back from pharmacist, so he decided not to take any anticoagulant. Today he had a chest pain episode, starting 1 hour prior to arrive. He describe the pain as sharp, retrosternal, radiated to left arm, associated with nausea and diaphoresis. He has never had this pain before. maximum intensity 9/10. The pain improved after receive morphine in ER. Allergies Penicillins Adverse Reaction (Verified 06/01/17 13:32) Anaphylaxis Sulfa (Sulfonamide Antibiotics) Adverse Reaction (Verified 06/01/17 13:32) Anaphylaxis Home Medications: Buspirone HCl [Buspar] 10 mg PO BID 06/01/17 Escitalopram [Lexapro*] 20 mg PO BID 06/01/17 Esomeprazole Mag Trihydrate [Nexium] 40 mg PO DAILY 06/01/17 Lisinopril 5 mg PO DAILY 06/01/17 Quetiapine Fumarate [Seroquel] 800 mg PO BEDTIME 06/01/17 Trazodone [Desyrel*] 100 mg PO BEDTIME 06/01/17 Cyanocobalamin/Cobamamide [Vitamin B-12 5,000 Mcg Tab Sl] 1 each SL DAILY #30 tab.subl 06/12/17 Ferrous Gluconate 324 mg PO TID #90 tablet 06/12/17 Folic Acid 1 mg PO DAILY #30 tablet 06/12/17 Dabigatran Etexilate Mesylate [Pradaxa] 150 mg PO BID #60 capsule 06/13/17 Rivaroxaban [Xarelto] 20 mg PO DAILY #30 tablet 06/13/17 - Past Medical/Surgical History Diabetic: No -: Bipolar Disorder -: Renal Disease -: Kaveh's Disease -: Hypertension -: hyperlipidemia Past Surgical History: Reviewed- Non-Contributory - Family History Father -: Heart disease - Social History Smoking Status: Current every day smoker Counseled patient to stop smoking for: less than 10 minutes Alcohol use: No CD- Drugs: No Caffeine use: No Place of Residence: Home Review of Systems 10-point ROS is otherwise unremarkable Physical Examination - Physical Exam General: Alert, In no apparent distress HEENT: Atraumatic, PERRLA, Mucous membr. moist/pink, EOMI, Sclerae nonicteric Neck: Supple, 2+ carotid pulse no bruit, No LAD, Without JVD or thyroid abnormality Respiratory: Clear to auscultation bilaterally, Normal air movement Cardiovascular: Regular rate/rhythm, Normal S1 S2 Gastrointestinal: Normal bowel sounds, No tenderness Musculoskeletal: Tenderness (right calf tender to palpation) Integumentary: No rashes Neurological: Normal speech, Normal strength at 5/5 x4 extr, Normal tone, Normal affect Lymphatics: No axilla or inguinal lymphadenopathy - Studies Laboratory Data (last 24 hrs) 06/17/17 18:45: PT 11.9, INR 1.01, APTT 27.5 06/17/17 18:45: WBC 11.7 H D, Hgb 10.4 L, Hct 32.6 L, Plt Count 246 06/17/17 18:45: B-Natriuretic Peptide 66 06/17/17 18:45: Sodium 135, Potassium 4.4, BUN 21 H, Creatinine 2.18 H, Glucose 95, Magnesium 1.5 L, Total Bilirubin 0.4, AST 19, ALT 17, Alkaline Phosphatase 99, Lipase 32 Assessment and Plan - Problems (Diagnosis) (1) Acute kidney injury superimposed on CKD Current Visit: Yes Status: Acute (2) Chest pain Current Visit: Yes Status: Acute Qualifiers: Chest pain type: precordial pain Qualified Code(s): R07.2 - Precordial pain (3) Right leg DVT Onset Date: 06/02/17 Current Visit: No Status: Chronic Qualifiers: Affected thrombotic vein of extremity: femoral Chronicity: chronic Qualified Code(s): I82.511 - Chronic embolism and thrombosis of right femoral vein (4) HTN (hypertension) Onset Date: 06/02/17 Current Visit: No Status: Chronic Qualifiers: Hypertension type: essential hypertension (5) [place] disease Onset Date: 06/02/17 Current Visit: No Status: Chronic - Plan The patient will be admitted to the hospital due to chest pain. Differential diagnosis include ACS vs PE due to his history of recent DVT without appropriate anticoagulation. EKG shows sinus tachycardia with PAC's, no ST-T abnormalities. Initial troponin I is negative. Will order a VQ scan. Due to decreased EGFR he has contraindicated chest CTA. Also order ECHO. Will resume anticoagulation, check serial cardiac enzymes and EKG. - Advance Directives Does patient have a Living Will: No Does patient have a Durable POA for Healthcare: No - Code Status/Comfort Care Code Status Assessed: Yes Code Status: Full Code
--- NOTE | 2017-06-17 20:21 | RAD REPORT ---
EXAM DESCRIPTION: RAD - Chest Single View - 06/17/2017 8:08 pm CLINICAL HISTORY: Chest pain. COMPARISON: 06/10/2017 FINDINGS: Portable technique limits examination quality. The lungs are grossly clear. The heart is normal in size. No displaced fractures. IMPRESSION: No acute intrathoracic process suspected.
[2017-06-17 21:01] LABS: Urine Blood NEGATIVE (NEG); Urine Glucose NEGATIVE (NEG); Urine Protein NEGATIVE (NEG)
[2017-06-17] MEDS ORDERED: ACETAMINOPHEN 500 MG TAB PO PRN (21:54)
[2017-06-17] MEDS ORDERED: ONDANSETRON 4 MG/2 ML VIAL IV PRN (21:54)
[2017-06-17] MEDS ORDERED: DABIGATRAN 150 MG CAP PO SCH (21:54)
[2017-06-17] MEDS: ATORVASTATIN 80 MG TAB PO SCH (23:39)
[2017-06-17] MEDS: NA CHLORIDE 0.9% 1,000 ML IV SCH (23:40)
[2017-06-18 01:29] VITALS: BMI 25.8
[2017-06-18] MEDS ORDERED: Magnesium Sulfate 2gm IVPB 2 G/50 ML BAG IV ONE (01:38)
[2017-06-18 05:30] LABS: Absolute Lymphocytes (CBC) 2.1 K/uL (0.7-4.9); Absolute Neutrophil 5.6 K/uL (1.8-8.0); Basophils % 0.4 % (0-1.3); Eosinophils % 3.2 % (0-4.4); Hematocrit 27.9 % (39.6-49.0); Lymphocytes % 23.7 % (15.3-44.8); MCH 26.8 pg (27.0-35.0); MCV 81.5 fL (80-100); MPV 7.5 fL (7.6-11.3); Monocytes % 10.6 % (3.3-12.3); RBC Red Blood Cell Count 3.43 M/uL (4.33-5.43)
[2017-06-18 05:55] LABS: Potassium 3.9 mEq/L (3.6-5.0)
--- NOTE | 2017-06-18 06:31 | EKG ---
Test Date: 2017-06-17 Test Time: 19:15:42 Interior Decorator: DILAN MEASUREMENT RESULTS: Intervals: Rate: 96 IN: 166 QRSD: 76 QT: 342 QTc: 432 [place]: P: 109 IN: 166 QRS: -28 T: 48 INTERPRETIVE STATEMENTS: Sinus rhythm with premature atrial complexes Inferior infarct, age undetermined Abnormal ECG Compared to ECG 06/10/2017 21:33:45 Atrial premature complex(es) now present Myocardial infarct finding now present Electronically Signed On 06-18-17 06:31:10 CDT by Luis Masters
[2017-06-18] MEDS ORDERED: TRAMADOL HCL 50 MG TAB PO PRN (06:56)
[2017-06-18] MEDS: NA CHLORIDE 0.9% 1,000 ML IV SCH (07:54)
--- NOTE | 2017-06-18 08:31 | P.PN ---
Subjective Date of Service: 06/18/17 Primary Care Provider: Dr. Patricia([place], [place]) Chief Complaint: chest pain Subjective: Doing well Physical Examination - Vital Signs Temperature: 98.9 F Blood Pressure: 100/55 Pulse: 83 Respirations: 16 Pulse Ox (%): 93 - Physical Exam General: Alert, In no apparent distress, Oriented x3, Cooperative HEENT: Atraumatic, Mucous membr. moist/pink Neck: Supple Respiratory: Clear to auscultation bilaterally, Normal air movement Cardiovascular: Normal pulses, Regular rate/rhythm Gastrointestinal: Normal bowel sounds, Soft and benign, Non-distended, No tenderness, No masses, No rebound, No guarding Musculoskeletal: No erythema, No tenderness, No warmth Integumentary: No erythema, No warmth, No cyanosis Neurological: Normal speech, Normal strength at 5/5 x4 extr, Normal tone, Abnormal affect (Patient with increased anxiety.) - Studies Laboratory Data (last 24 hrs) 06/17/17 18:45: PT 11.9, INR 1.01, APTT 27.5 06/17/17 18:45: WBC 11.7 H D, Hgb 10.4 L, Hct 32.6 L, Plt Count 246 06/17/17 18:45: B-Natriuretic Peptide 66 06/17/17 18:45: Sodium 135, Potassium 4.4, BUN 21 H, Creatinine 2.18 H, Glucose 95, Magnesium 1.5 L, Total Bilirubin 0.4, AST 19, ALT 17, Alkaline Phosphatase 99, Lipase 32 Medications List Reviewed: Yes Assessment & Plan - Problems (Diagnosis) (1) Chronic renal disease Current Visit: Yes Status: Chronic Plan: Patient with chronic renal disease. The patient is from [place]. He recently moved here. Will consult Nephrology to evaluate. Will check renal ultrasound. Patient will need to establish care in the area. Patient came in with chest pain. Cardiology to assess. Anticipate possible discharge today. Qualifiers: Chronic kidney disease stage: stage 3 (moderate) Qualified Code(s): N18.3 - Chronic kidney disease, stage 3 (moderate) (2) Bipolar disorder Current Visit: Yes Status: Chronic Plan: Will continue with his medications. Qualifiers: Active/Remission status: remission status unspecified Qualified Code(s): F31.9 - Bipolar disorder, unspecified (3) Chest pain Current Visit: Yes Status: Acute Plan: Cardiology to assess. Echocardiogram pending. Patient will likely need cardiac evaluation. Possible discharge today if unremarkable. Patient recently diagnosed with DVT. On chronic anti coagulation therapy. V/Q scan obtained. Qualifiers: Chest pain type: precordial pain Qualified Code(s): R07.2 - Precordial pain (4) PAD (peripheral artery disease) Onset Date: 06/02/17 Current Visit: No Status: Chronic Plan: Will continue with this medication. (5) Anemia Current Visit: No Status: Chronic Plan: This is likely of chronic disease. Will check iron and B12 studies. Qualifiers: Anemia type: due to chronic kidney disease Chronic kidney disease stage: stage 3 (moderate) Qualified Code(s): N18.3 - Chronic kidney disease, stage 3 (moderate); D63.1 - Anemia in chronic kidney disease; D63.1 - Anemia in chronic kidney disease (6) HTN (hypertension) Onset Date: 06/02/17 Current Visit: No Status: Chronic Plan: Blood pressure well controlled. Qualifiers: Hypertension type: essential hypertension (7) [place] disease Onset Date: 06/02/17 Current Visit: No Status: Chronic Plan: Will continue with his medication (8) Right leg DVT Onset Date: 06/02/17 Current Visit: No Status: Chronic Plan: Patient recently diagnosed with DVT in May. He had been given to anti coagulation therapies from his PCP in [place]. He will only require 1. V/Q scan obtained. Qualifiers: Affected thrombotic vein of extremity: femoral Chronicity: chronic Qualified Code(s): I82.511 - Chronic embolism and thrombosis of right femoral vein Discharge Plan: Home Plan to discharge in: 24 Hours Time Spent Managing Pts Care (In Minutes): 55
[2017-06-18] MEDS: ESCITALOPRAM 20 MG TAB PO SCH ×2 (08:35→20:27)
[2017-06-18] MEDS: BUSPIRONE HCL 5 MG TABLET PO SCH ×2 (08:35→20:27)
[2017-06-18] MEDS: ASPIRIN EC 81 MG TAB PO SCH (08:35)
[2017-06-18] MEDS: TRAZODONE 50 MG TABLET PO SCH ×2 (08:35→20:26)
[2017-06-18] MEDS: QUETIAPINE 100MG TAB PO SCH (08:36)
[2017-06-18] MEDS: PANTOPRAZOLE 40MG TABLET PO SCH (08:38)
[2017-06-18] MEDS ORDERED: POTASSIUM CL SA 10 MEQ TAB PO ONE (09:00)
--- NOTE | 2017-06-18 09:05 | RAD REPORT ---
EXAM DESCRIPTION: NM - Vent Perfusion VQ Scan - 06/18/2017 6:32 am CLINICAL HISTORY: Chest pain, shortness of breath. COMPARISON: 06/11/2017 TECHNIQUE: The patient was administered approximately 20 mCi Xenon 133 gas with posterior projection inspiration, equilibrium, and washout views obtained. The patient was then administered approximatel y 7 mCi Tc-99m SC labeled RBCs followed by standard 8 view protocol. Examination is correlated with r ecent chest radiograph. FINDINGS: There is homogeneous distribution of the Xenon with no ventilation defects identified. Mil d diffuse air-trapping seen. Perfusion images show no defects suspicious for pulmonary emboli. IMPRESSION: Very low probability of pulmonary thromboembolism. Mild diffuse air trapping.
--- NOTE | 2017-06-18 09:18 | RAD REPORT ---
EXAM DESCRIPTION: US - Renal Ultrasound-Complete - 06/18/2017 7:34 am CLINICAL HISTORY: Chronic kidney disease. COMPARISON: None. FINDINGS: Both kidneys are mildly increased in echogenicity. The right kidney measures 8.7 x 4.5 x 3.9 cm. No hydronephrosis, focal mass or perinephric fluid. The left kidney measures 9.8 x 4.9 x 4.7 cm. No hydronephrosis, focal mass or perinephric fluid. Smal l cortical renal cysts are present, likely benign. Gallstones present gallbladder. IMPRESSION: Mildly echogenic kidneys bilaterally compatible with underlying medical renal disease. N o hydronephrosis or aggressive renal mass.
--- NOTE | 2017-06-18 09:18 | EKG ---
Test Date: 2017-06-18 Test Time: 08:44:22 Rougher Operator: DENNIS MEASUREMENT RESULTS: Intervals: Rate: 90 HI: 162 QRSD: 84 QT: 358 QTc: 437 [place]: P: 9 HI: 162 QRS: -50 T: 26 INTERPRETIVE STATEMENTS: Sinus rhythm with premature atrial complexes Left anterior fascicular block Abnormal ECG Compared to ECG 06/17/2017 19:15:42 Left anterior fascicular block now present Myocardial infarct finding no longer present Electronically Signed On 06-18-17 09:17:37 CDT by Luis Masters
[2017-06-18] MEDS: APIXABAN 5 MG TABLET PO SCH ×2 (10:32→20:27)
[2017-06-18 11:20] LABS: Hematocrit 27.4 % (39.6-49.0)
--- NOTE | 2017-06-18 12:28 | CON ---
Chief Complaint: Chest pain. History Of Present Illness: Mr. Buckley is a gentleman with numerous medical problems. He is known to have deep vein thrombosis in his left leg. He was discharged from the hospital taking Eliquis 5 b .i.d., and Pradaxa 150 b.i.d. Because of the confusion, pharmacist told him do not take both. He to ok neither one. Came back to the hospital with chest pain. It is not really pleuritic chest pain an d not very suspicious that he had a PE. Pain radiates to his left shoulder, feels like tightness. Gerry bobo is a heavy tobacco user. Past Medical History: He has underlying Kaveh's disease, depression, and anxiety. Outpatient Medications: Tramadol, buspirone, lisinopril, Lexapro, trazodone, esomeprazole, quetiapin e, Eliquis, and Pradaxa. He has never had myocardial infarction, stroke, or any known vascular disease. He has renal insuffic iency as well. He has a bleeding diathesis as well. Physical Examination: General: He is alert, oriented, pleasant, somewhat disheveled HEENT: Normal. Neck: Carotids, no bruit. Lungs: Clear. Cardiac: within normal limits. No friction rub or murmur. Abdomen: Soft. Extremities: No swelling. No outside evidence of DVT. The patient has dropped his hemoglobin. I think what would be a better drug for him is Eliquis 5 b.i .d. and dabigatran or Pradaxa. He should not take both. Many people get chest pain when they take P radaxa and it is actually difficult to take, a little bit difficult to store. Recommend that we swit ch him to Eliquis and stop the Pradaxa. He already has prescriptions for both. We should do a pharmacologic stress test, see if there is any sign of ischemic heart disease. I suspect this was no t an acute coronary syndrome. PORFIRIO/MAGGIE Voice ID: [id number] Report ID: [id number]
--- NOTE | 2017-06-18 14:13 | P.CNS ---
Date of Consult: 06/18/17 Reason for Consult: CLARISSA/ CKD III Requesting Physician: Terrance Ruelas Primary Care Provider: Dr. Patricia([place], [place]) Chief Complaint: chest pain History of Present Illness: Mr Buckley is a 51 years old male with history of bipolar disorder, [place]' s disease, HTN, CKD, DVT diagnosed on 06/01/17, he supouse to be anticoagulated but for some reason he got 2 different anticoagulants. The pharamacist supposedly clarify the order with the doctor, however, he has never received a call back from pharmacist, so he decided not to take any anticoagulant. Today he had a chest pain episode, starting 1 hour prior to arrive. He describe the pain as sharp, retrosternal, radiated to left arm, associated with nausea and diaphoresis. He has never had this pain before. maximum intensity 9/10. The pain improved after receive morphine in ER. 18:50 This 51 yrs old Male presents to ER via EMS with complaints of Chest Pain. marky 18:50 The patient or guardian reports chest pain that is located primarily in the anterior marky chest wall. Onset: just prior to arrival. The pain does not radiate. Associated signs and symptoms: The patient has no apparent associated signs or symptoms. The chest pain is described as dull, a pressure. Modifying factors: The symptoms are alleviated by nothing. the symptoms are aggravated by nothing. Severity of pain: At its worst the pain was mild moderate in the emergency department the pain is unchanged. The patient has not experienced similar symptoms in the past. Allergies Penicillins Adverse Reaction (Verified 06/17/17 22:20) Anaphylaxis Sulfa (Sulfonamide Antibiotics) Adverse Reaction (Verified 06/17/17 22:20) Anaphylaxis Home medications list reviewed: Yes Home Medications: Buspirone HCl [Buspar] 10 mg PO BID 06/17/17 Escitalopram [Lexapro*] 20 mg PO BID 06/17/17 Esomeprazole Mag Trihydrate [Nexium] 40 mg PO DAILY 06/17/17 Quetiapine [Seroquel*] 200 mg PO DAILY 06/17/17 Quetiapine [Seroquel*] 800 mg PO BEDTIME 06/17/17 Trazodone HCl [Desyrel] 100 mg PO BID 06/17/17 traMADol HCL [Ultram*] 50 mg PO Q6H PRN 06/17/17 Apixaban [Eliquis *] 5 mg PO BID #60 tablet 06/18/17 Cyanocobalamin (Vitamin B-12) [Vitamin B-12] 1,000 mcg PO DAILY #90 capsule 08/30 Ferrous Sulfate [Iron] 325 mg PO BID #60 tablet 06/18/17 - Past Medical/Surgical History Diabetic: No -: Bipolar Disorder -: Renal Disease -: Kaveh's Disease -: Hypertension -: hyperlipidemia - Family History Father Medical History: Heart disease - Social History Smoking Status: Current every day smoker Alcohol use: No CD- Drugs: No Caffeine use: No Place of Residence: Home Review of Systems 10-point ROS is otherwise unremarkable General: Weakness, Malaise Neurological: Weakness Physical Examination Temp Pulse Resp BP Pulse Ox 99.8 F 87 16 94/54 L 94 06/18/17 12:00 06/18/17 12:00 06/18/17 12:00 06/18/17 12:00 06/18/17 12:00 General: In no apparent distress, Oriented x3, Cooperative HEENT: Atraumatic, Mucous membr. moist/pink Neck: Supple Respiratory: Inspiratory wheezes, Rhonchi/gurgles (Left) Cardiovascular: No edema, Regular rate/rhythm, No rubs Gastrointestinal: Soft and benign, Non-distended, No ascites Musculoskeletal: No clubbing, No contractures Integumentary: No rashes, No cyanosis Neurological: Normal speech Laboratory Data (last 24 hrs) 06/17/17 18:45: PT 11.9, INR 1.01, APTT 27.5 06/17/17 18:45: WBC 11.7 H D, Hgb 10.4 L, Hct 32.6 L, Plt Count 246 06/17/17 18:45: B-Natriuretic Peptide 66 06/17/17 18:45: Sodium 135, Potassium 4.4, BUN 21 H, Creatinine 2.18 H, Glucose 95, Magnesium 1.5 L, Total Bilirubin 0.4, AST 19, ALT 17, Alkaline Phosphatase 99, Lipase 32 Imagings Data: EXAM DESCRIPTION: US - Renal Ultrasound-Complete - 06/18/2017 7:34 am CLINICAL HISTORY: Chronic kidney disease. COMPARISON: None. FINDINGS: Both kidneys are mildly increased in echogenicity. The right kidney measures 8.7 x 4.5 x 3.9 cm. No hydronephrosis, focal mass or perinephric fluid. The left kidney measures 9.8 x 4.9 x 4.7 cm. No hydronephrosis, focal mass or perinephric fluid. Small cortical renal cysts are present, likely benign. Gallstones present gallbladder. IMPRESSION: Mildly echogenic kidneys bilaterally compatible with underlying medical renal disease. No hydronephrosis or aggressive renal mass. Conclusions/Impression: A/ CLARISSA/ CKD III. Hypotension. Iron deficiency anemia. Hypocalcemia. Hypomagnesemia. B12 deficiency. Folate deficiency. P/ Continue current POC and Medications. Agree with iron and B12 supplementation. Start IVF. Start Vitamin D3. No NSAIDs. AM labs. Daily weight. Thank you kindly for the consultation.
--- NOTE | 2017-06-18 15:00 | ECHO ---
HEIGHT: 5 ft 10 in WEIGHT: 180 lb 0 oz DATE OF STUDY: 06/18/[address]: Omid Fonseca MD 2-DIMENSIONAL: YES M.MODE: YES DOPPLER: YES COLOR FLOW: YES TDS: NO PORTABLE: NO DEFINITY: NO BUBBLE STUDY: YES DIAGNOSIS: CHEST PAIN CARDIAC HISTORY: CATHERIZATION: NO SURGERY: NO PROSTHETIC VALVE: NO PACEMAKER: NO MEASUREMENTS (cm) DIASTOLIC (NORMALS) SYSTOLIC (NORMALS) IVSd 1.2 (0.6-1.2) LA Diam 3.5 (1.9-4.0) LVEF 79% LVIDd 5.2 (3.5-5.7) LVIDs 2.7 (2.0-3.5) %FS 48% LVPWd 1.2 (0.6-1.2) Ao Diam 3.6 (2.0-3.7) 2 DIMENSIONAL ASSESSMENT: RIGHT ATRIUM: NORMAL LEFT ATRIUM: NORMAL RIGHT VENTRICLE: NORMAL LEFT VENTRICLE: NORMAL TRICUSPID VALVE: NORMAL MITRAL VALVE: NORMAL PULMONIC VALVE: NORMAL AORTIC VALVE: NORMAL PERICARDIAL EFFUSION: NONE AORTIC ROOT: NORMAL LEFT VENTRICULAR WALL MOTION: NORMAL. DOPPLER/COLOR FLOW: TRACE OF TRICUSPID REGURGITATION. NORMAL RIGHT VENTRICULAR SYSTOLIC PRESSURE. SALINE CONTRAST SHOWS NO RIGHT TO LEFT SHUNT (NORMAL). COMMENTS: NORMAL 2D ECHO. TRACE OF TRICUSPID REGURGITATION. TECHNOLOGIST: BEN ALFONSO
[2017-06-18 16:03] VITALS: O2SAT 90
[2017-06-18] MEDS: FERROUS SULFATE 325 MG TAB PO SCH (20:26)
[2017-06-18] MEDS: ATORVASTATIN 80 MG TAB PO SCH (20:26)
[2017-06-18] MEDS ORDERED: QUETIAPINE 100MG TAB PO SCH (21:00)
[2017-06-18] MEDS: CYANOCOBALAMIN 1000MCG/ML INJ SQ SCH (21:57)
[2017-06-18] MEDS ORDERED: NA CHLORIDE 0.9% 1,000 ML IV SCH (22:00)
[2017-06-18 22:44] LABS: Hematocrit 28.4 % (39.6-49.0)
[2017-06-19] MEDS: PANTOPRAZOLE 40MG TABLET PO SCH (05:35)
[2017-06-19 06:02] LABS: Albumin 3.1 g/dL (3.2-5.5); Bilirubin Total 0.5 mg/dL (0.3-1.2); Phosphorus 3.5 mg/dL (2.5-4.3); Potassium 4.6 mEq/L (3.6-5.0); Protein, Total 5.2 g/dL (6.0-8.3); Thyroid Stimulating Hormone 0.33 uIU/mL (0.34-5.60); Uric Acid 7.5 mg/dL (4.8-8.7)
[2017-06-19] MEDS: CYANOCOBALAMIN 1000MCG/ML INJ SQ SCH (09:00)
[2017-06-19] MEDS ORDERED: VITAMIN D 5,000 UNIT CAP PO SCH (09:00)
[2017-06-19] MEDS ORDERED: CALCITROL 0.25 MCG CAP PO SCH (09:00)
[2017-06-19] MEDS ORDERED: DOCUSATE NA 100 MG CAP PO SCH (09:00)
[2017-06-19] MEDS ORDERED: SOD FERRIC GLUC COMPLX/SUCROSE 250 MG in NA CHLORIDE 0.9% 250 ML IV ONE (09:00)
[2017-06-19] MEDS ORDERED: CYANOCOBALAMIN 1,000 MCG TAB PO SCH (09:00)
[2017-06-19] MEDS ORDERED: NACHLORIDE 0.45% 1,000 ML IV SCH (09:00)
[2017-06-19] MEDS ORDERED: MULTIVITAMIN TAB PO SCH (09:00)
[2017-06-19] MEDS: BUSPIRONE HCL 5 MG TABLET PO SCH (09:08)
[2017-06-19] MEDS: FERROUS SULFATE 325 MG TAB PO SCH (09:08)
[2017-06-19] MEDS: QUETIAPINE 100MG TAB PO SCH (09:08)
[2017-06-19] MEDS: TRAZODONE 50 MG TABLET PO SCH (09:08)
[2017-06-19] MEDS: APIXABAN 5 MG TABLET PO SCH (09:12)
[2017-06-19] MEDS: ESCITALOPRAM 20 MG TAB PO SCH (09:13)
[2017-06-19] MEDS: ASPIRIN EC 81 MG TAB PO SCH (09:13)
--- NOTE | 2017-06-19 10:10 | P.DS ---
Admission Date: 06/17/17 (Hospitalist note) Discharge Date: 06/19/17 Primary Care Provider: Dr. Patricia([place], [place]) Disposition: ROUTINE DISCHARGE Discharge Condition: GOOD Reason for Admission: chest pain Consultations: Dr. Masters and Dr. Ramos Brief History of Present Illness: Patient is 51 years of age recently diagnosed with a DVT this confused about his anticoagulants admitted to the hospital with chest pain seen by Cardiology remained hemodynamically stable he probably has anemia of chronic disease from his renal insufficiency the time of discharge was doing well alert oriented responsive cooperative hemoglobin stable I have instructed him to her take only Pradaxa hold on the Eliquis and to follow up with me in 2 weeks he has also is a see Cardiology for an outpatient stress test Hospital Course: Patient did well during the course of the stay no complications at the time of discharge is vital signs are all stable chest clear cardiovascular system are sounds normal extremities no edema for laboratory data all reviewed vital signs all reviewed stable at the time of discharge patient has been ambulating active smoker console not to smoke no prior history of COPD need outpatient pulmonary function testing\ Testing echocardiogram was normal V/Q scan shows very low probability for pulmonary embolism renal ultrasound chronic disease Vital Signs/Physical Exam: Temp Pulse Resp BP Pulse Ox 97.9 F 80 16 100/60 90 L 06/19/17 07:37 06/19/17 07:37 06/19/17 07:37 06/19/17 07:37 06/19/17 07:37 Laboratory Data at Discharge: WBC 9.1 K/uL (4.3-10.9) D 06/18/17 04:43 Hgb 9.1 g/dL (13.6-17.9) L 06/18/17 22:25 Hct 28.4 % (39.6-49.0) L 06/18/17 22:25 Plt Count 186 K/uL (152-406) D 06/18/17 04:43 PT 11.9 SECONDS (9.5-12.5) 06/17/17 18:45 INR 1.01 06/17/17 18:45 APTT 27.5 SECONDS (24.3-36.9) 06/17/17 18:45 Sodium 140 mEq/L (135-145) 06/19/17 04:35 Potassium 4.6 mEq/L (3.6-5.0) 06/19/17 04:35 BUN 20 mg/dL (6-20) 06/19/17 04:35 Creatinine 2.08 mg/dL (0.61-1.24) H 06/19/17 04:35 Glucose 80 mg/dL (65-120) 06/19/17 04:35 Uric Acid 7.5 mg/dL (4.8-8.7) 06/19/17 04:35 Phosphorus 3.5 mg/dL (2.5-4.3) 06/19/17 04:35 Magnesium 2.0 mg/dL (1.8-2.5) D 06/19/17 04:35 Total Bilirubin 0.5 mg/dL (0.3-1.2) 06/19/17 04:35 AST 18 IU/L (10-42) 06/19/17 04:35 ALT 14 IU/L (10-60) 06/19/17 04:35 Alkaline Phosphatase 80 IU/L (42-121) 06/19/17 04:35 Troponin I < 0.03 ng/mL (<0.03) 06/18/17 14:01 B-Natriuretic Peptide 66 pg/ml (<=100) 06/17/17 18:45 Triglycerides 88 mg/dL (35-160) 06/18/17 04:43 Cholesterol 162 mg/dL (<200) 06/18/17 04:43 HDL Cholesterol 34 mg/dL (27-67) 06/18/17 04:43 Cholesterol/HDL Ratio 4.76 06/18/17 04:43 Lipase 32 U/L (22-51) 06/17/17 18:45 Home Medications: Buspirone HCl [Buspar] 10 mg PO BID 06/17/17 Escitalopram [Lexapro*] 20 mg PO BID 06/17/17 Esomeprazole Mag Trihydrate [Nexium] 40 mg PO DAILY 06/17/17 Quetiapine [Seroquel*] 200 mg PO DAILY 06/17/17 Quetiapine [Seroquel*] 800 mg PO BEDTIME 06/17/17 Trazodone HCl [Desyrel] 100 mg PO BID 06/17/17 traMADol HCL [Ultram*] 50 mg PO Q6H PRN 06/17/17 Cyanocobalamin (Vitamin B-12) [Vitamin B-12] 1,000 mcg PO DAILY #90 capsule 08/30 Ferrous Sulfate [Iron] 325 mg PO BID #60 tablet 06/18/17 Dabigatran Etexilate Mesylate [Pradaxa] 150 mg PO BID #60 cap 06/19/17 New Medications: Cyanocobalamin (Vitamin B-12) [Vitamin B-12] 1,000 mcg PO DAILY #90 capsule Dabigatran Etexilate Mesylate [Pradaxa] 150 mg PO BID #60 cap Ferrous Sulfate [Iron] 325 mg PO BID #60 tablet Patient Discharge Instructions: 1. Patient will need to establish care with a PCP in the local area to follow up this hospitalization and continue his care. 2. Patient presented with chest pain. This resolved. Patient evaluated by Cardiology. No intervention needed at this time. Recommendation is for the patient follow up with cardiology as an outpatient for cardiac stress test. 3. Patient with recent history of DVT. Education about DVT and anti coagulation will be provided. At discharge patient will continue with Pradaxa. Patient to stop taking Eliquis Recommendation is for the patient follow up with a PCP to further monitor and address. 4. Patient has chronic renal disease. Renal function stable. Patient will need to follow up with nephrology as an outpatient to further monitor and address. 5. Patient has bipolar disorder. Patient will continue with his medication. Patient to establish care with [facility]. 6. Patient has GERD. Patient will continue with Nexium daily. 7. Patient has anemia of chronic disease. Patient identified with B12 and iron deficiency. Supplementation will be added. Patient will continue with iron 325 mg 1 pill twice daily and vitamin-B 12 1000 mcg daily. This to be monitored as an outpatient. Recommendation is to recheck CBC, iron and B12 in 2 -4 weeks to monitor his progress. 8. Recommendation is to recheck lab-CBC and BMP in 1-2 weeks to monitor his progress. Diet: Regular Activity: Ad serg Followup: Luis Masters MD [ACTIVE - CAN ADMIT] - Martinez Mims MD [ACTIVE - CAN ADMIT] -
[2017-06-19 11:41] VITALS: BP 107/67; TEMP 97
[2017-06-19] MEDS ORDERED: MAGNESIUM OXIDE 400 MG TAB PO SCH (21:30)
== END 2017-06-19 16:20 | disposition home or self-care (01) ==
LOC: ER 18:43 → ERHOLD 18:57 → 4TH 20:44
PROVIDERS: ADMIT Internal Medicine; ATTEND Internal Medicine
DX: R07.9 Chest pain, unspecified (principal); I12.9 Hypertensive chronic kidney disease with stage 1 through stage 4 chronic kidney disease, or unspecified chronic kidney disease; N18.3 Chronic kidney disease, stage 3 (moderate); N17.9 Acute kidney failure, unspecified; D63.1 Anemia in chronic kidney disease; G10 Huntington's disease; F31.9 Bipolar disorder, unspecified; I73.9 Peripheral vascular disease, unspecified; F17.210 Nicotine dependence, cigarettes, uncomplicated; Z86.718 Personal history of other venous thrombosis and embolism; Z79.01 Long term (current) use of anticoagulants; Z88.0 Allergy status to penicillin; Z88.2 Allergy status to sulfonamides
CPT/HCPCS: 36415 ×2; 71045; 76770; 78582; 80048 ×2; 80053; 80061; 80076; 81003; 82533; 82550; 82553; 83540; 83690; 83735 ×2; 83880; 84100; 84443; 84466; 84484 ×4; 84550; 85014 ×2; 85018 ×2; 85025 ×2; 85610; 85730; 93005 ×2; 93306; 96361; 96372; 96374; 96375; 99285; A9540; A9558; G0378 ×2; J1650; J2405; J2916; J3420; J3475; J7030 ×3

== ENCOUNTER 2017-07-07 09:47 | Emergency (ER) | payer OTHER ==
--- OUTSIDE RECORDS SUMMARY | 2017-07-07 09:49 | XMS REPORT | Clinical Summary ---
:1965 Author Organization [facility] Address [address] [place] [address] Care Team Providers Name Role Phone Asked, [...] 40 MG mouth daily capsule before breakfast. QUEtiapine Take 400 mg by 05/26/2017 Discontinued [...] a day with meals for 30 days. ferrous sulfate 325 Take 1 tablet 60 tablet 0 05/26/2017 06/25/2017 (65 FE) MG tablet (325 mg total) by mouth 2 (two) times a day with meals for 30 days. lisinopril Take 1 tablet 30 tablet 0 05/26/2017 06/25/2017 (PRINIVIL,ZESTRIL) (5 mg total) 5 mg tablet by mouth daily for 30 days. Active Problems Problem Noted Date Intentional drug overdose 05/25/2017 Encounters Date Type Specialty Care Team Description 05/29/2017 Emergency Emergency Medicine 05/24/2017 - Emergency General Internal Nik Sandy Intentional drug overdose, initial encounter (Primary Dx); 05/26/2017 Shavonne Campbell MD Anemia of unknown etiology Martina Russell MD after 07/06/2016 Immunizations Name Dates Previously Given Next Due [...] 40.0 % Specimen Performing Laboratory Plasma specimen [facility] DEPARTMENT OF PATHOLOGY AND GENOMIC MEDICINE [address] [facility] [place] [address] Estimated GFR (05/25/2017 7:25 AM)Only the most [...] and Americans. Specimen Performing Laboratory Plasma specimen [facility] DEPARTMENT OF PATHOLOGY AND GENOMIC MEDICINE [address] [place] [address] CBC with platelet and differential (05/25/2017 7:25 [...] (promyelocytes, myelocytes, metamyelocytes) Specimen Performing Laboratory Blood [facility] DEPARTMENT OF PATHOLOGY AND [facility] [address] [place] [address] Thyroid stimulating hormone (05/25/2017 7:25 AM)Only the most recent of2 resultswithin the time period is included. Component Value Ref Range TSH 1.22 0.27 - 4.20 uIU/mL Specimen Performing Laboratory Plasma specimen [facility] DEPARTMENT OF PATHOLOGY AND [address] [address] Folate level (05/25/2017 7:25 AM) Component Value Ref Range Folate 3.3 (L) 4.8 - 24.2 ng/mL Specimen Performing Laboratory Serum [facility] DEPARTMENT OF PATHOLOGY AND [address] [address] Ferritin level (05/25/2017 7:25 AM) Component Value Ref Range Ferritin level 18 (L) 30 - 400 ng/mL Specimen Performing Laboratory Plasma specimen [facility] DEPARTMENT OF PATHOLOGY AND [address] [address] Vitamin B12 level (05/25/2017 7:25 AM) Component Value Ref Range Vitamin B12 250 211 - 946 pg/mL Comment: Significant overlap exists between normal and deficiency states. However, most patients with deficiencies will have Serum B12 <200 pg/mL. Specimen Performing Laboratory Serum [facility] DEPARTMENT PATHOLOGY [address] [address] Acetaminophen level (05/25/2017 7:25 AM)Only the most recent of2 resultswithin the time period is included. Component Value Ref Range Acetaminophen level <15.0 10.0 - 30.0 ug/mL Comment: Therapeutic 10-30 ug/mL Possible Toxicity 150-200 ug/mL Probable Toxicity >200 ug/mL Specimen Performing Laboratory Plasma specimen [facility] DEPARTMENT PATHOLOGY [address] [address] Comprehensive metabolic panel (05/25/2017 7:25 AM)Only the [...] 5.7 (L) 6.3 - 8.3 g/dL Comment: 4.6-7.0 g/dL 1 week 4.4-7.6 g/dL 7 months-1year5.1-7.3 g/dL 1-2 years5.6-7.5 g/dL >3 years6.0-8.0 g/dL 18-150 6.3-8.3 g/dL Albumin 2.9 (L) 3.5 - 5.0 g/dL A/G ratio 1.0 0.7 - 3.8 Alkaline phosphatase 91 40 - 129 U/L AST 26 10 - 50 U/L ALT 16 5 - 50 U/L Total bilirubin 0.3 0.0 - 1.2 mg/dL Specimen Performing Laboratory Plasma specimen [facility] DEPARTMENT OF PATHOLOGY AND GENOMIC MEDICINE [address] [place] [address] Urinalysis screen and microscopy, with reflex to [...] UA None seen Specimen Performing Laboratory Urine [facility] DEPARTMENT OF PATHOLOGY AND [facility] [address] [place] [address] Urine drugs of abuse screen (05/25/2017 4:10 AM) Component Value Ref Range Amphetamine screen, urine Negative Barbiturate screen, urine Negative Benzodiazepine screen, urine Negative Cannabinoid screen, urine Negative Cocaine screen, urine Negative Methadone metabolite (EDDP), urine Negative Opiates screen, urine Negative Oxycodone screen, urine Negative Phencyclidine screen, urine Negative Tricyclic screen, urine Negative Comment: Drug screen minimum concentration of detectability [id number] ng/mL Barbiturates 200 ng/mL Owetmtupbvfdvnv633 ng/mL Ncslzwv472 ng/mL Ygwdkalvc468 ng/mL Sjmukea296 ng/mL Iswsauzuy630 ng/mL Phencyclidine 25 ng/mL Mjowzhxlgfxe74 ng/mL Hewyvbyjpo2106 ng/mL Negative test results indicates presumptive evidence of lack of clinically significant drug concentration in this urine specimen. Positive test results are presumptive evidence of clinically significant drug concentration in this urine specimen. Testing performed for medical purposes only. Specimen Performing Laboratory Urine [facility] DEPART[facility] PATHOLOGY [address] [address] Urine culture (05/25/2017 4:10 AM) Component Value Ref Range Urine culture SEE COMMENTComment: Bacteriuria screen negative. Specimen Performing Laboratory [facility] PATHOLOGY AND [address] [address] Basic metabolic panel (05/25/2017 4:10 AM) Component [...] 10.2 mg/dL Specimen Performing Laboratory Plasma specimen [address] [address] Troponin (05/24/2017 11:30 PM) Component Value Ref Range Troponin <0.30 0.00 - 0.30 ng/mL Comment: 0.30 - 1.49 ng/mlMay indicate increased risk of acute coronary syndrome. >=1.5 ng/mlConsistent with acute myocardial infarction. The diagnostic value of a single normal or non-diagnostic result is questionable.Serial samples at 2-6 hour intervals are required to rule out acute myocardial injury. Specimen Performing Laboratory Plasma specimen [facility] DEPARTMENT OF PATHOLOGY AND [address] [address] Partial thromboplastin time, activated (05/24/2017 11:30 PM) Component Value Ref Range PTT 23.5 23.0 - 36.0 sec Comment: PTT therapeutic range for unfractionated heparin is 61.0-112.0 seconds which corresponds to Anti-Xa 0.3-0.7 U/ml. Specimen Performing Laboratory Blood [facility] PATHOLOGY [address] [address] Prothrombin time with INR (05/24/2017 11:30 PM) Component Value Ref Range Prothrombin time 13.0 12.0 - 15.0 sec INR 1.0 Comment: The International Normalized Ratio (INR) is a therapeutic monitoring tool for patients who are stable on oral anticoagulant therapy. An INR of 2.0-3.0 is suggested for deep vein thrombosis/pulmonary embolism. Specimen Performing Laboratory Blood [facility] DEPARTMENT OF PATHOLOGY AND GENOMIC MEDICINE [address] [place] [address] Alcohol level, blood (05/24/2017 11:30 PM) Component Value Ref Range Alcohol None Detected mg/dL Comment: Normal None Detected Legal Intoxication in [place]80 mg/dL (0.08%) - Whole Blood Toxic Siakjbshuzvnb230 mg/dL (0.2%) Potentially Jxarw317 - 500 mg/dL (0.35 - 0.5%) Alcohol percent None Detected % Specimen Performing Laboratory Plasma specimen [facility] DEPARTMENT OF PATHOLOGY AND GENOMIC MEDICINE [address] [place] [address] Salicylate level (05/24/2017 11:30 PM) Component Value Ref Range Salicylate <3.0 3.0 - 30.0 mg/dL Specimen Performing Laboratory Plasma specimen [facility] DEPARTMENT OF PATHOLOGY AND GENOMIC MEDICINE [address] [place] [address] ECG 12 lead (05/24/2017 11:05 PM) Component Value Ref Range Ventricular rate 80 Atrial rate 80 DE interval 190 QRSD interval 84 QT interval 374 QTC interval 431 P axis 1 33 QRS axis 1 -31 T wave axis 21 EKG impression Normal sinus rhythm-Left axis deviation-Low voltage QRS-Borderline ECG-- Specimen Performing Laboratory [facility] [address] [place] [id number] after 07/06/2016 Insurance Payer Benefit Plan / Group Subscriber ID Type Phone Address [employer] xxxxxxxxx [facility] MEDICARE MEDICARE PART A AND B xxxxxxxxxx Medicare [place], [place] Home: [address] [phone] [place] [phone]
[2017-07-07] MEDS ORDERED: NACL 0.9% IRR SOLN 2,000 ML IRR ONE (10:07)
[2017-07-07 10:15] LABS: Absolute Lymphocytes (CBC) 2.9 K/uL (0.7-4.9); Absolute Monocytes 0.4 K/uL (0.1-1.3); Absolute Neutrophil 4.1 K/uL (1.8-8.0); Basophils % 0.8 % (0-1.3); Eosinophils % 2.7 % (0-4.4); Hematocrit 38.2 % (39.6-49.0); Lymphocytes % 37.3 % (15.3-44.8); MCH 26.6 pg (27.0-35.0); MCV 83.9 fL (80-100); MPV 7.8 fL (7.6-11.3); Monocytes % 5.7 % (3.3-12.3); RBC Red Blood Cell Count 4.56 M/uL (4.33-5.43)
[2017-07-07 10:18] LABS: Potassium 3.8 mEq/L (3.6-5.0)
[2017-07-07 10:29] LABS: Protime INR 1.39
[2017-07-07] MEDS ORDERED: LIDOCAINE VISCOUS 2% SOLN 15 ML UDC ONE (10:30)
--- NOTE | 2017-07-07 11:02 | RAD REPORT ---
EXAM DESCRIPTION: CT - Stone Protocol - 07/07/2017 10:31 am CLINICAL HISTORY: Abdominal pain/hematuria. COMPARISON: June 18, 2017 ultrasound. TECHNIQUE: Computed axial tomography of the abdomen and pelvis was obtained. Contrast was not admini stered. Coronal reconstruction was performed. FINDINGS: Mild tree-in-bud opacities within the left lower lobe are present. The evaluation of solid organs, vessels and bowel is limited secondary to lack of contrast administra tion. A 1.5 cm cyst extends off of the left kidney. A right renal mass is not visualized. Hydronephrosis is not noted. A renal calculus is not seen. A ureteral calculus is not present. A bladder calculus is n ot noted. A 3.2 cm soft tissue structure is present within the proximal sigmoid colon. There is no evidence of diverticulitis. A gallstone is present. The gallbladder wall is not thickened. The liver, spleen, pancreas and adrenals appear grossly normal. A couple of soft tissue nodules are present within the anterior subcutaneous fat of the pelvis. The l argest measures 1.1 cm. These are nonspecific. IMPRESSION: 1. Negative for a genitourinary calculus. 2. Cholelithiasis without evidence of cholecystitis. 3. A 3.2 cm soft tissue structure within the proximal sigmoid colon may represent a mass or adherent stool. Direct visualization is recommended. 4. Mild tree-in-bud opacities left lower lobe may indicate an atypical infection.
[2017-07-07 11:30] LABS: Urine Blood 3+ (NEG); Urine Glucose NEGATIVE (NEG); Urine Protein NEGATIVE (NEG); Urine pH 5.5 (5.0-7.0)
[2017-07-07 11:32] LABS: Urine Bacteria <20 /HPF (NONE SEEN); Urine RBC <5 /HPF (NONE SEEN)
[2017-07-07 11:33] LABS: Urine Culture Reflex Order NOT NEEDED; Urine Mucus NS /HPF (NONE SEEN)
--- NOTE | 2017-07-07 11:58 | ER ---
Nurse's Notes [facility] Name: Jeovany Buckley Age: 51 yrs Sex: Male : 1965 Arrival Date: 07/07/2017 Time: 09:47 Bed 7 Private MD: Diagnosis: Hematuria, unspecified Presentation: 07/07 09:41 Presenting complaint: EMS states: penile bleeding constantly x 1 day. Denies urinary sv pain or difficulty. c/o blurry vision x 1 day. BP 112/74 HR 90 RR 20 98% RA. Transition of care: patient was not received from another setting of care. Onset of symptoms was July 07, 2017. 09:41 Method Of Arrival: EMS: [facility] sv 09:41 Acuity: JED 3 sv 09:42 Initial Sepsis Screen: Does the patient meet any 2 criteria? No. Patient's initial sv sepsis screen is negative. Does the patient have a suspected source of infection? No. Patient's initial sepsis screen is negative. Care prior to arrival: None. Triage Assessment: 09:45 General: Appears in no apparent distress. comfortable, well developed, Behavior is sv calm, cooperative, appropriate for age. Pain: Denies pain. EENT: No signs and/or symptoms were reported regarding the EENT system. Neuro: Level of Consciousness is awake, alert, obeys commands, Oriented to person, place, time, situation, Moves all extremities. Full function. Cardiovascular: Patient's skin is warm and dry. Respiratory: Respiratory effort is even, unlabored, Respiratory pattern is regular, symmetrical. GI: Reports suprapubic pain. : Reports discharge, bloody, since yesterday with voiding and coming out of his penis no difficulty urinating. Derm: Skin is pink, warm \T\ dry. Musculoskeletal: No signs and/or symptoms reported regarding the musculoskeletal system. Historical: - Allergies: 09:51 Aspirin; sv 09:51 PENICILLINS; sv 09:51 Sulfa (Sulfonamide Antibiotics); sv - Home Meds: 09:51 Eliquis Oral [Active]; Nexium 40 mg Oral cpDR 1 cap once daily [Active]; Seroquel 400 sv mg Oral tab 1 tab 2 times per day [Active]; Lexapro 20 mg Oral tab 1 tab once daily [Active]; Trazodone Oral [Active]; - PMHx: 09:51 Bipolar disorder; DVT; RLE; Motley's Disease; Hypertension; Renal Disease; sv - Immunization history:: Adult Immunizations up to date. - Social history:: Smoking status: Patient uses tobacco products, smokes one-half pack cigarettes per day. - Family history:: not pertinent. - Hospitalizations: : No recent hospitalization is reported. Screenin:52 Abuse screen: Denies threats or abuse. Denies injuries from another. Nutritional sv screening: No deficits noted. Tuberculosis screening: No symptoms or risk factors identified. Fall Risk None identified. Assessment: 10:00 Reassessment: See triage assessment. sv 11:00 Reassessment: Patient appears in no apparent distress at this time. No changes from sv previously documented assessment. Patient and/or family updated on plan of care and expected duration. Pain level reassessed. Patient is alert, oriented x 3, equal unlabored respirations, skin warm/dry/pink. 13:00 Reassessment: Patient appears in no apparent distress at this time. Patient and/or sv family updated on plan of care and expected duration. Pain level reassessed. Patient is alert, oriented x 3, equal unlabored respirations, skin warm/dry/pink. Vital Signs: 09:51 BP 119 / 80; Pulse 86; Resp 18; Pulse Ox 100% on R/A; Weight 76.2 kg (R); Height 5 ft. sv 10 in. (177.80 cm) (R); Pain 0/10; 10:01 Temp 97.9(O); sv 10:53 Pulse 76; Resp 18; Pulse Ox 100% ; sv 11:22 BP 104 / 79; Pulse 73; Resp 18; Pulse Ox 100% ; sv 11:45 BP 117 / 85; Pulse 73; Resp 18; Pulse Ox 100% ; sv 12:59 BP 118 / 80; Pulse 71; Resp 18; Pulse Ox 100% ; sv 09:51 Body Mass Index 24.11 (76.20 kg, 177.80 cm) sv ED Course: 09:47 Patient arrived in ED. sv 09:47 Qing Malik RN is Primary Nurse. sv 09:49 Triage completed. sv 09:51 Ciro Delgado MD is Attending Physician. rn 09:52 ED physician to see patient. sv 09:52 Arm band placed on left wrist. sv 09:52 Patient has correct armband on for positive identification. Bed in low position. Call sv light in reach. Side rails up X 1. Pulse ox on. NIBP on. 10:00 Initial lab(s) drawn, by me, sent to lab. T\T\S collected, blood band applied to patient. sv Inserted saline lock: 20 gauge in right antecubital area, using aseptic technique. Blood collected. Flushed right antecubital with 5 ml normal saline. 10:25 CT completed. Patient tolerated procedure well. Patient moved to CT via stretcher. jg1 Patient moved back from CT. 10:31 CT Stone Protocol In Process Unspecified. EDMS 11:00 3-way catheter inserted, using sterile technique, 22 Fr. Specimen obtained. Returned sv clear yellow urine. with flakes of blood. Bladder irrigated via Louis with 2L irrigation started returned clear fluid Patient tolerated well. 11:18 Urine collected: Louis catheter specimen, cloudy, jeovany colored. jb1 11:57 Wilbert Castillo MD is Referral Physician. rn 12:[address] louis[address] sv 13:12 No provider procedures requiring assistance completed. IV discontinued, intact, sv bleeding controlled, No redness/swelling at site. Pressure dressing applied. Administered Medications: 10:45 Drug: Viscous Lidocaine Liquid (4 %) 10 ml Route: Mucous Membrane; sv Intake: 12:58 Tubes: 2000ml (); Total: 2000ml. sv 12:58 Input is from bladder irrigation sv Output: 12:58 Urine: 400ml (Louis); Total: 400ml. sv 12:58 Input is from bladder irrigation sv Outcome: 11:57 Discharge ordered by MD. rn 13:12 Discharged to home ambulatory. sv 13:12 Condition: stable 13:12 Condition: improved 13:12 Discharge instructions given to patient, Instructed on discharge instructions, follow up and referral plans. Demonstrated understanding of instructions, follow-up care. 13:13 Patient left the ED. sv Signatures: Dispatcher [employer] Bhavin Mar jb1 Qing Malik, Jackie Ramirez RN jCiro Burrell MD MD rn
--- NOTE | 2017-07-07 11:58 | EDPHYS ---
Physician Documentation [facility] Name: Jeovany Buckley Age: 51 yrs Sex: Male : 1965 Arrival Date: 07/07/2017 Time: 09:47 Bed 7 Private MD: ED Physician Ciro Delgado HPI: 07/07 10:18 This 51 yrs old Male presents to ER via EMS with complaints of Penile rn Bleeding. 10:18 The patient presents with urinary symptoms, hematuria. Onset: The symptoms/episode rn began/occurred last night. Modifying factors: The symptoms are alleviated by nothing, the symptoms are aggravated by nothing. Severity of symptoms: At their worst the symptoms were mild, in the emergency department the symptoms are unchanged. The patient has not experienced similar symptoms in the past. Reports just recently started taking eliquis, noticed hematuria since last night, comes out even if not urinating, no pain, hasn't happened before, denies feeling of retention, no trauma.. Historical: - Allergies: 09:51 Aspirin; sv 09:51 PENICILLINS; sv 09:51 Sulfa (Sulfonamide Antibiotics); sv - Home Meds: 09:51 Eliquis Oral [Active]; Nexium 40 mg Oral cpDR 1 cap once daily [Active]; Seroquel 400 sv mg Oral tab 1 tab 2 times per day [Active]; Lexapro 20 mg Oral tab 1 tab once daily [Active]; Trazodone Oral [Active]; - PMHx: 09:51 Bipolar disorder; DVT; RLE; Pickaway's Disease; Hypertension; Renal Disease; sv - Immunization history:: Adult Immunizations up to date. - Social history:: Smoking status: Patient uses tobacco products, smokes one-half pack cigarettes per day. - Family history:: not pertinent. - Hospitalizations: : No recent hospitalization is reported. ROS: 10:18 Constitutional: Negative for fever, chills, and weight loss, Eyes: Negative for injury, rn pain, redness, and discharge, Cardiovascular: Negative for chest pain, palpitations, and edema, Respiratory: Negative for shortness of breath, cough, wheezing, and pleuritic chest pain, Abdomen/GI: + suprapubic abd pain Back: Negative for injury and pain, MS/Extremity: Negative for injury and deformity, Skin: Negative for injury, rash, and discoloration, Neuro: + weak and lightheaded Exam: 10:18 Constitutional: This is a well developed, well nourished patient who is awake, alert, rn and in no acute distress. Head/Face: Normocephalic, atraumatic. Eyes: Pupils equal round and reactive to light, extra-ocular motions intact. Lids and lashes normal. Conjunctiva and sclera are non-icteric and not injected. Cornea within normal limits. Periorbital areas with no swelling, redness, or edema. Cardiovascular: Regular rate and rhythm with a normal S1 and S2. No gallops, murmurs, or rubs. Normal PMI, no JVD. No pulse deficits. Respiratory: Lungs have equal breath sounds bilaterally, clear to auscultation and percussion. No rales, rhonchi or wheezes noted. No increased work of breathing, no retractions or nasal flaring. Abdomen/GI: Soft, non-tender, with normal bowel sounds. No distension or tympany. No guarding or rebound. No evidence of tenderness throughout. Male : small amount of blood at urethral meatus, no lesions or trauma MS/ Extremity: Pulses equal, no cyanosis. Neurovascular intact. Full, normal range of motion. Equal circumference. Neuro: Awake and alert, GCS 15, oriented to person, place, time, and situation. Cranial nerves II-XII grossly intact. Motor strength 5/5 in all extremities. Sensory grossly intact. Cerebellar exam normal. Normal gait. Vital Signs: 09:51 BP 119 / 80; Pulse 86; Resp 18; Pulse Ox 100% on R/A; Weight 76.2 kg (R); Height 5 ft. sv 10 in. (177.80 cm) (R); Pain 0/10; 10:01 Temp 97.9(O); sv 10:53 Pulse 76; Resp 18; Pulse Ox 100% ; sv 11:22 BP 104 / 79; Pulse 73; Resp 18; Pulse Ox 100% ; sv 11:45 BP 117 / 85; Pulse 73; Resp 18; Pulse Ox 100% ; sv 12:59 BP 118 / 80; Pulse 71; Resp 18; Pulse Ox 100% ; sv 09:51 Body Mass Index 24.11 (76.20 kg, 177.80 cm) sv MDM: 09:52 Patient medically screened. rn 11:55 Differential diagnosis: UTI, urinary retention. Data reviewed: vital signs, nurses rn notes, lab test result(s), radiologic studies, and as a result, I will discharge patient. Counseling: I had a detailed discussion with the patient and/or guardian regarding: the historical points, exam findings, and any diagnostic results supporting the discharge/admit diagnosis, lab results, radiology results, the need for outpatient follow up, to return to the emergency department if symptoms worsen or persist or if there are any questions or concerns that arise at home. Response to treatment: the patient's symptoms have markedly improved after treatment, and as a result, I will discharge patient. Special discussion: I discussed with the patient/guardian in detail that at this point there is no indication for admission to the hospital. It is understood, however, that if the symptoms persist or worsen the patient needs to return immediately for re-evaluation. ED course: Urine cleared with irrigation, no further blood, CT shows non-specific soft tissue mass in sigmoid, pt reports colonoscopy with complication 1 year ago, has multiple known polyps, i recommended repeat colonoscopy/GI f/u as outpt. Will dc home with urology f/u with hematuria. Needs outpt cystoscope. Stable h/h. Normal vitals. . 07/07 09:53 Order name: CBC with Diff; Complete Time: 10:25 07/07 09:53 Order name: Basic Metabolic Panel; Complete Time: 10:25 07/07 09:53 Order name: Type And Screen; Complete Time: 11:05 07/07 09:53 Order name: PT-INR; Complete Time: 11:05 07/07 09:53 Order name: Ptt, Activated; Complete Time: 11:05 07/07 09:53 Order name: Urine Microscopic Only; Complete Time: 11:54 07/07 09:53 Order name: IV Start; Complete Time: 10:39 07/07 09:53 Order name: Urine Dipstick-Ancillary (obtain specimen); Complete Time: 11:18 rn 07/07 09:53 Order name: Urine Culture 07/07 09:53 Order name: Bladder Irrigation; Complete Time: 11:18 07/07 09:54 Order name: CT Stone Protocol 07/07 11:15 Order name: Urine Dipstick--Ancillary (enter results); Complete Time: 11:54 mw2 Administered Medications: 10:45 Drug: Viscous Lidocaine Liquid (4 %) 10 ml Route: Mucous Membrane; sv Disposition: 07/07/17 11:57 Discharged to Home. Impression: Hematuria, unspecified. - Condition is Stable. - Discharge Instructions: Hematuria, Adult. - Medication Reconciliation Form, Thank You Letter, Antibiotic Education, Prescription Opioid Use form. - Follow up: Wilbert Castillo MD; When: 2 - 3 days; Reason: Recheck today's complaints, Re-evaluation by your physician. - Problem is new. - Symptoms have improved. Signatures: Dispatcher [employer] Qing Lobato, RN RN sv Ciro Delgado MD MD rn
[2017-07-07 13:23] VITALS: O2SAT 100
[2017-07-07 13:24] VITALS: TEMP 97.9
[2017-07-07 13:28] VITALS: BP 118/80
== END 2017-07-07 13:13 | disposition home or self-care (01) ==
LOC: ER 09:47
DX: R31.9 Hematuria, unspecified (principal); F17.210 Nicotine dependence, cigarettes, uncomplicated; I10 Essential (primary) hypertension; F31.9 Bipolar disorder, unspecified; Z88.0 Allergy status to penicillin; Z88.2 Allergy status to sulfonamides; Z88.6 Allergy status to analgesic agent
CPT/HCPCS: 36415; 51700; 74176; 76377; 80048; 81003; 81015; 85025; 85610; 85730; 86850; 86900; 86901; 87086; 87088; 99285

== ENCOUNTER 2017-08-25 06:45 | Emergency (ER) | payer OTHER ==
--- OUTSIDE RECORDS SUMMARY | 2017-08-25 06:47 | XMS REPORT ---
:1965 Author Organization [employer] Care Team Providers Name Role Phone James Vargas Provider Role Unavailable Allergies No Known Allergies Problems Problem Type Condition Code Onset Dates Condition Status Problem Chronic kidney disease, stage 3 N18.3 Active Problem Chronic deep vein thrombosis (DVT) I82.511 Active of femoral vein of right lower extremity Problem Tobacco abuse counseling Z71.6 Active Problem Bipolar disorder with moderate F31.32 Active depression Medications No Known Medications Results No Known Results Summary Purpose eClinicalWorks Submission
--- OUTSIDE RECORDS SUMMARY | 2017-08-25 06:47 | XMS REPORT | Clinical Summary ---
:1965 Author Organization [facility] Address [address] [place] [address] Care Team Providers Name Role Phone Asked, [...] Emergency Medicine 05/24/2017 - Emergency General Internal Du Nik Intentional drug overdose, initial encounter (Primary Dx); 05/26/2017 Shavonne Campbell MD Anemia of unknown etiology Martina Russell MD after 08/24/2016 Immunizations Name Dates Previously Given Next Due [...] 40.0 % Specimen Performing Laboratory Plasma specimen [facility] DEPARTMENT OF PATHOLOGY AND GENOMIC MEDICINE [address] [place] [address] Estimated GFR (05/25/2017 7:25 AM)Only the most [...] and Americans. Specimen Performing Laboratory Plasma specimen [facility] DEPARTMENT OF PATHOLOGY AND GENOMIC MEDICINE [address] [place] [address] CBC with platelet and differential (05/25/2017 7:25 [...] (promyelocytes, myelocytes, metamyelocytes) Specimen Performing Laboratory Blood [facility] DEPARTMENT OF PATHOLOGY AND GENOMIC MEDICINE [address] [place] [id number] Thyroid stimulating hormone (05/25/2017 7:25 AM)Only the most recent of2 resultswithin the time period is included. Component Value Ref Range TSH 1.22 0.27 - 4.20 uIU/mL Specimen Performing Laboratory Plasma specimen [facility] DEPARTMENT OF PATHOLOGY AND GENOMIC MEDICINE [address] [place] [address] Folate level (05/25/2017 7:25 AM) Component Value Ref Range Folate 3.3 (L) 4.8 - 24.2 ng/mL Specimen Performing Laboratory Serum [facility] DEPARTMENT OF PATHOLOGY AND [facility] MED[facility]INE [address] [place] [address] Ferritin level (05/25/2017 7:25 AM) Component Value Ref Range Ferritin level 18 (L) 30 - 400 ng/mL Specimen Performing Laboratory Plasma specimen [facility] DEPARTMENT OF PATHOLOGY AND [address] [address] Vitamin B12 level (05/25/2017 7:25 AM) Component Value Ref Range Vitamin B12 250 211 - 946 pg/mL Comment: Significant overlap exists between normal and deficiency states. However, most patients with deficiencies will have Serum B12 <200 pg/mL. Specimen Performing Laboratory Serum [facility] DEPARTMENT OF PATHOLOGY AND [facility] [address] [place] [address] Acetaminophen level (05/25/2017 7:25 AM)Only the most recent of2 resultswithin the time period is included. Component Value Ref Range Acetaminophen level <15.0 10.0 - 30.0 ug/mL Comment: Therapeutic 10-30 ug/mL Possible Toxicity 150-200 ug/mL Probable Toxicity >200 ug/mL Specimen Performing Laboratory Plasma specimen [facility] DEPARTMENT OF PATHOLOGY AND [address] [address] Comprehensive metabolic panel (05/25/2017 7:25 AM)Only the [...] 5.7 (L) 6.3 - 8.3 g/dL Comment: [place] 4.6-7.0 g/dL 1 week 4.4-7.6 g/dL 7 months-1year5.1-7.3 g/dL 1-2 years5.6-7.5 g/dL >3 years6.0-8.0 g/dL 18-150 6.3-8.3 g/dL Albumin 2.9 (L) 3.5 - 5.0 g/dL A/G ratio 1.0 0.7 - 3.8 Alkaline phosphatase 91 40 - 129 U/L AST 26 10 - 50 U/L ALT 16 5 - 50 U/L Total bilirubin 0.3 0.0 - 1.2 mg/dL Specimen Performing Laboratory Plasma specimen [facility] DEPARTMENT OF PATHOLOGY AND GENOMIC MEDICINE [address] [place] [address] Urinalysis screen and microscopy, with reflex to [...] UA None seen Specimen Performing Laboratory Urine [facility] DEPARTMENT OF PATHOLOGY AND GENOMIC MEDICINE [address] [place] [address] Urine drugs of abuse screen (05/25/2017 4:10 AM) Component Value Ref Range Amphetamine screen, urine Negative Barbiturate screen, urine Negative Benzodiazepine screen, urine Negative Cannabinoid screen, urine Negative Cocaine screen, urine Negative Methadone metabolite (EDDP), urine Negative Opiates screen, urine Negative Oxycodone screen, urine Negative Phencyclidine screen, urine Negative Tricyclic screen, urine Negative Comment: Drug screen minimum concentration of detectability [id number] ng/mL Barbiturates 200 ng/mL Zogzwjauacbrtua825 ng/mL Clugbme882 ng/mL Aawbgrghd338 ng/mL Jnwbrfr191 ng/mL Bogljxnep697 ng/mL Phencyclidine 25 ng/mL Kvzhrxaruygc81 ng/mL Uhdaqgqkjl7482 ng/mL Negative test results indicates presumptive evidence of lack of clinically significant drug concentration in this urine specimen. Positive test results are presumptive evidence of clinically significant drug concentration in this urine specimen. Testing performed for medical purposes only. Specimen Performing Laboratory Urine [facility] DEPARTMENT OF PATHOLOGY AND [address] [address] Urine culture (05/25/2017 4:10 AM) Component Value Ref Range Urine culture SEE COMMENTComment: Bacteriuria screen negative. Specimen Performing Laboratory [facility] DEPARTMENT OF PATHOLOGY AND [facility] [address] [place] [address] Basic metabolic panel (05/25/2017 4:10 AM) Component [...] 10.2 mg/dL Specimen Performing Laboratory Plasma specimen [facility] DEPARTMENT OF PATHOLOGY AND [address] [address] Troponin (05/24/2017 11:30 PM) Component Value Ref Range Troponin <0.30 0.00 - 0.30 ng/mL Comment: 0.30 - 1.49 ng/mlMay indicate increased risk of acute coronary syndrome. >=1.5 ng/mlConsistent with acute myocardial infarction. The diagnostic value of a single normal or non-diagnostic result is questionable.Serial samples at 2-6 hour intervals are required to rule out acute myocardial injury. Specimen Performing Laboratory Plasma specimen [facility] DEPARTMENT OF PATHOLOGY AND [facility] [address] [place] [address] Partial thromboplastin time, activated (05/24/2017 11:30 PM) Component Value Ref Range PTT 23.5 23.0 - 36.0 sec Comment: PTT therapeutic range for unfractionated heparin is 61.0-112.0 seconds which corresponds to Anti-Xa 0.3-0.7 U/ml. Specimen Performing Laboratory Blood [facility] [address] [address] Prothrombin time with INR (05/24/2017 11:30 PM) Component Value Ref Range Prothrombin time 13.0 12.0 - 15.0 sec INR 1.0 Comment: The International Normalized Ratio (INR) is a therapeutic monitoring tool for patients who are stable on oral anticoagulant therapy. An INR of 2.0-3.0 is suggested for deep vein thrombosis/pulmonary embolism. Specimen Performing Laboratory Blood [facility] DEPARTMENT OF PATHOLOGY AND GENOMIC MEDICINE [address] [place] [address] Alcohol level, blood (05/24/2017 11:30 PM) Component Value Ref Range Alcohol None Detected mg/dL Comment: Normal None Detected Legal Intoxication in [place]80 mg/dL (0.08%) - Whole Blood Toxic Afdlagilqwjkc983 mg/dL (0.2%) Potentially Kemuu797 - 500 mg/dL (0.35 - 0.5%) Alcohol percent None Detected % Specimen Performing Laboratory Plasma specimen [facility] DEPARTMENT OF PATHOLOGY AND GENOMIC MEDICINE [address] [place] [address] Salicylate level (05/24/2017 11:30 PM) Component Value Ref Range Salicylate <3.0 3.0 - 30.0 mg/dL Specimen Performing Laboratory Plasma specimen [facility] DEPARTMENT OF PATHOLOGY AND GENOMIC MEDICINE [address] [place] [address] ECG 12 lead (05/24/2017 11:05 PM) Component Value Ref Range Ventricular rate 80 Atrial rate 80 AZ interval 190 QRSD interval 84 QT interval 374 QTC interval 431 P axis 1 33 QRS axis 1 -31 T wave axis 21 EKG impression Normal sinus rhythm-Left axis deviation-Low voltage QRS-Borderline ECG-- Specimen Performing Laboratory [facility] [address] [place] [address] after 08/24/2016 Insurance Payer Benefit Plan / Group Subscriber ID Type Phone Address MEDICARE MEDICARE PART A AND B xxxxxxxxxx Medicare [place], [place] Home: [address] [place] [phone] [place], [place] [address]
--- OUTSIDE RECORDS SUMMARY | 2017-08-25 06:47 | XMS REPORT ---
:1965 Author Organization [employer] Care Team Providers Name Role Phone James Vargas Provider Role Unavailable Allergies No Known Allergies Problems Problem Type Condition Code Onset Dates Condition Status Assessment Gastroesophageal reflux disease, K21.9 Active esophagitis presence not specified Problem Gastroesophageal reflux disease, K21.9 Active esophagitis presence not specified Problem Chronic kidney disease, stage 3 N18.3 Active Problem Essential (primary) hypertension I10 Active Problem Tobacco abuse counseling Z71.6 Active Assessment Essential (primary) hypertension I10 Active Problem Chronic deep vein thrombosis (DVT) I82.511 Active of femoral vein of right lower extremity Problem Bipolar disorder with moderate F31.32 Active depression Medications Medication Code System Code Instructions Start End Date Status Dosage Date Lisinopril [facility] 75648014313 5 MG Orally Once Active 1 tablet a day Nexium [facility] [id number] 40 MG Orally Once Active 1 capsule a day Results No Known Results Summary Purpose eClinicalWorks Submission
--- OUTSIDE RECORDS SUMMARY | 2017-08-25 06:47 | XMS REPORT ---
:1965 [facility] Address [address] [place] [address] Dr. Tilley 135 [id number] Care Team Providers Name Role Phone Unavailable Unavailable Unavailable Problems This patient has no known problems. Allergies, Adverse Reactions, Alerts This patient has no known allergies or adverse reactions. Medications This patient has no known medications.
[2017-08-25 08:04] LABS: Absolute Lymphocytes (CBC) 2.1 K/uL (0.7-4.9); Absolute Monocytes 0.6 K/uL (0.1-1.3); Absolute Neutrophil 6.5 K/uL (1.8-8.0); Basophils % 0.4 % (0-1.3); Bicarbonate 24 mEq/L (21-31); Eosinophils % 1.6 % (0-4.4); Glucose Level 124 mg/dL (65-120); Hematocrit 31.6 % (39.6-49.0); Lymphocytes % 21.9 % (15.3-44.8); MCH 29.1 pg (27.0-35.0); MCV 87.2 fL (80-100); MPV 7.7 fL (7.6-11.3); Monocytes % 6.9 % (3.3-12.3); Potassium 3.6 mEq/L (3.6-5.0); RBC Red Blood Cell Count 3.62 M/uL (4.33-5.43); Sodium Level 141 mEq/L (135-145)
[2017-08-25 08:10] LABS: ALT/SGPT 15 IU/L (10-60); AST/SGOT 26 IU/L (10-42); Albumin 3.6 g/dL (3.2-5.5); Alkaline Phosphatase 77 IU/L (42-121); BUN Blood Urea Nitrogen 17 mg/dL (6-20); Bilirubin Direct < 0.1 mg/dL (0-0.2); Bilirubin Total 0.3 mg/dL (0.3-1.2); Protein, Total 6.3 g/dL (6.0-8.3)
--- NOTE | 2017-08-25 08:55 | RAD REPORT ---
EXAM DESCRIPTION: CT - Abdomen Pelvis Wo Contrast - 08/25/2017 8:38 am CLINICAL HISTORY: Abdominal pain. COMPARISON: 07/07/2017 TECHNIQUE: CT imaging of the abdomen and pelvis was performed without contrast. Solid organ, bowel a nd vascular assessment is limited due to lack of IV and oral contrast. All CT scans are performed using dose optimization technique as appropriate and may include automated exposure control or mA/KV adjustment according to patient size. FINDINGS: The lower lung victoria are clear.Small hiatal hernia. The liver, spleen, pancreas, adrenal glands and kidneys are within normal limits for a limited non-co ntrast examination.Cholelithiasis. No bowel obstruction, free air, free fluid or abscess. Mild sigmoid thickening is seen. The appendix is normal. The osseous structures are within normal limits. IMPRESSION: Mild thickening of the sigmoid colon can be seen colitis. No pneumatosis coli is present . Cholelithiasis. A limited non-contrast examination was performed as detailed.
--- NOTE | 2017-08-25 09:59 | EDPHYS ---
Physician Documentation [facility] Name: Jeovany Buckley Age: 51 yrs Sex: Male : 1965 Arrival Date: 08/25/2017 Time: 06:46 Bed 6 Private MD: James Vargas ED Physician Yvon Robertson HPI: 08/25 07:22 This 51 yrs old Male presents to ER via Ambulatory with complaints of Rectal kdr Bleeding, Kidney Pain. 07:22 The patient presents with abdominal pain in the left lower quadrant. Onset: The kdr symptoms/episode began/occurred The pain has been ongoing for some time but worse in the last few days. He states that he had black stool this morning and that he had blood running down his leg last night. He also states that he vomited blood once. The symptoms do not radiate. Associated signs and symptoms: Pertinent positives: nausea and vomiting, blood in stools, vomiting blood, Pertinent negatives: anorexia, constipation, diarrhea, dysuria, fever, headache, hematuria, palpitations, shortness of breath, testicular pain. The symptoms are described as achy, crampy, intermittent, vague. Modifying factors: The symptoms are alleviated by nothing, the symptoms are aggravated by walking, Postional. Severity of pain: At its worst the pain was mild in the emergency department the pain is unchanged. The patient has not experienced similar symptoms in the past. The patient has not recently seen a physician. Historical: - Allergies: 07:00 Aspirin; aa1 07:00 PENICILLINS; aa1 07:00 Sulfa (Sulfonamide Antibiotics); aa1 - Home Meds: 07:00 buspirone 10 mg Oral tab 1 tab 2 times per day [Active]; Eliquis Oral [Active]; Lexapro aa1 20 mg Oral tab 1 tab once daily [Active]; lisinopril 5 mg Oral tab 1 tab once daily [Active]; Nexium 40 mg Oral cpDR 1 cap once daily [Active]; Risperdal Oral [Active]; Seroquel 400 mg Oral tab 1 tab 2 times per day [Active]; Tramadol Oral [Active]; Trazodone Oral [Active]; - PMHx: 07:00 Bipolar disorder; DVT; RLE; Benzie's Disease; Hypertension; Renal Disease; aa1 - Immunization history:: Flu vaccine is up to date. - Social history:: Smoking status: Patient uses tobacco products, / PPD. - Ebola Screening: : No symptoms or risks identified at this time. ROS: 07:22 Constitutional: Negative for fever, chills, and weight loss, Eyes: Negative for injury, kdr pain, redness, and discharge, ENT: Negative for injury, pain, and discharge, Neck: Negative for injury, pain, and swelling, Cardiovascular: Negative for chest pain, palpitations, and edema, Respiratory: Negative for shortness of breath, cough, wheezing, and pleuritic chest pain, Back: Negative for injury and pain, : Negative for injury, bleeding, discharge, and swelling, MS/Extremity: Negative for injury and deformity, Skin: Negative for injury, rash, and discoloration, Neuro: Negative for headache, weakness, numbness, tingling, and seizure activity. Psych: Negative for depression, anxiety, suicide ideation, homicidal ideation, and hallucinations, Allergy/Immunology: Negative for hives, rash, and allergies, Endocrine: Negative for neck swelling, polydipsia, polyuria, polyphagia, and marked weight changes, Hematologic/Lymphatic: Negative for swollen nodes, abnormal bleeding, and unusual bruising. 07:22 Abdomen/GI: Positive for abdominal pain, nausea and vomiting, abdominal cramps, black/tarry stool, Negative for diarrhea, abdominal distension, anorexia, dysphagia, bowel incontinence. Exam: 07:22 Constitutional: This is a well developed, well nourished patient who is awake, alert, kdr and in no acute distress. Head/Face: Normocephalic, atraumatic. Eyes: Pupils equal round and reactive to light, extra-ocular motions intact. Lids and lashes normal. Conjunctiva and sclera are non-icteric and not injected. Cornea within normal limits. Periorbital areas with no swelling, redness, or edema. Neck: Trachea midline, no thyromegaly or masses palpated, and no cervical lymphadenopathy. Supple, full range of motion without nuchal rigidity, or vertebral point tenderness. No Meningismus. Chest/axilla: Normal chest wall appearance and motion. Nontender with no deformity. No lesions are appreciated. Cardiovascular: Regular rate and rhythm with a normal S1 and S2. No gallops, murmurs, or rubs. Normal PMI, no JVD. No pulse deficits. Respiratory: Lungs have equal breath sounds bilaterally, clear to auscultation and percussion. No rales, rhonchi or wheezes noted. No increased work of breathing, no retractions or nasal flaring. Back: No spinal tenderness. No costovertebral tenderness. Limited range of motion due to kyphosis Skin: Warm, dry with normal turgor. Normal color with no rashes, no lesions, and no evidence of cellulitis. MS/ Extremity: Pulses equal, no cyanosis. Neurovascular intact. Full, normal range of motion. Neuro: Awake and alert, GCS 15, oriented to person, place, time, and situation. Cranial nerves II-XII grossly intact. Motor strength 5/5 in all extremities. Sensory grossly intact. Cerebellar exam normal. Normal gait. Psych: Awake, alert, with orientation to person, place and time. Behavior, mood, and affect are within normal limits. 07:22 Abdomen/GI: Inspection: abdomen appears normal, Bowel sounds: active, all quadrants, diminished, Palpation: soft, mild abdominal tenderness, in the left upper quadrant and left lower quadrant, mass, is not appreciated, rebound tenderness, is not appreciated, Rectal exam: is unremarkable, Prostate: normal, rectal tone normal, Stool: normal, guaiac negative, hemorrhoid(s), are not appreciated, mass, is not appreciated, swelling, is not appreciated, tenderness, is not appreciated, fecal impaction, is not appreciated. Vital Signs: 07:00 BP 116 / 76; Pulse 87; Resp 18; Temp 97.9; Pulse Ox 100% on R/A; Weight 74.84 kg; aa1 Height 5 ft. 10 in. (177.80 cm); Pain 8/10; 07:02 BP 116 / 76; Pulse 88; Resp 18; Temp 98.1(TE); Pulse Ox 100% on R/A; Weight 74.84 kg; hj Height 5 ft. 10 in. (177.80 cm); Pain 7/10; 08:00 BP 110 / 72; Pulse 85; Resp 18; Pulse Ox 100% on R/A; hj 09:09 BP 100 / 70; Pulse 84; Resp 18; Pulse Ox 100% on R/A; hj 07:02 Body Mass Index 23.67 (74.84 kg, 177.80 cm) MDM: 07:22 Data reviewed: vital signs, nurses notes, lab test result(s), radiologic studies. kdr Counseling: I had a detailed discussion with the patient and/or guardian regarding: the historical points, exam findings, and any diagnostic results supporting the discharge/admit diagnosis, lab results, radiology results. 09:58 Patient medically screened. kdr 10:07 Special discussion: Based on the patient's Hx, exam, and Dx evaluation, there is no kdr indication for emergent surgery or inpatient Tx. It is understood by the patient/guardian that if the Sx's persist or worsen they need to return immediately for re-evaluation. I discussed with the patient/guardian in detail that at this point there is no indication for admission to the hospital. It is understood, however, that if the symptoms persist or worsen the patient needs to return immediately for re-evaluation. Based on the history and exam findings, there is no indication for further emergent testing or inpatient evaluation. I discussed with the patient/guardian the need to see the edge runner for further evaluation of the symptoms. 08/25 06:58 Order name: Basic Metabolic Panel; Complete Time: 08:52 kdr 08/25 06:58 Order name: CBC with Diff; Complete Time: 08:52 kdr 08/25 06:58 Order name: Creatinine for Radiology; Complete Time: 08:52 kdr 08/25 06:58 Order name: Hepatic Function; Complete Time: 08:52 kdr 08/25 06:58 Order name: Urine Microscopic Only kdr 08/25 07:11 Order name: Occult Blood--Ancillary bd 08/25 06:58 Order name: IV Saline Lock; Complete Time: 07:24 kdr 08/25 06:58 Order name: Labs collected and sent; Complete Time: 07:24 kdr 08/25 08:36 Order name: Abdomen ; Complete Time: 09:55 EDMS 08/25 09:26 Order name: Urine Dipstick--Ancillary (enter results) bd 08/25 06:58 Order name: Urine Dipstick-Ancillary (obtain specimen); Complete Time: 09:25 kdr Administered Medications: 09:57 Drug: Cipro 500 mg Route: PO; hj 10:27 Follow up: Response: No adverse reaction hj 09:57 Drug: Flagyl 500 mg Route: PO; hj 10:27 Follow up: Response: No adverse reaction hj 09:57 Drug: Pepcid 20 mg Route: PO; hj 10:27 Follow up: Response: No adverse reaction Disposition: 08/25/17 09:58 Discharged to Home. Impression: Abdominal and pelvic pain, Colitis. - Condition is Stable. - Discharge Instructions: Abdominal Pain, Adult, [id number]. - Prescriptions for Bentyl 20 mg Oral Tablet - take 1 tablet by ORAL route every 6 hours As needed; 20 tablet. Flagyl 500 mg Oral Tablet - take 1 tablet by ORAL route every 6 hours for 10 days; 40 tablet. Pepcid 20 mg Oral Tablet - take 1 tablet by ORAL route every 12 hours for 5 days; 10 tablet. Cipro 500 mg Oral Tablet - take 1 tablet by ORAL route every 12 hours for 10 days; 20 tablet. Tramadol 50 mg Oral Tablet - take 1 tablet by ORAL route every 8 hours as needed; 12 tablet. - Medication Reconciliation Form, Thank You Letter, Antibiotic Education, Prescription Opioid Use form. - Follow up: James Vargas MD; When: 2 - 3 days; Reason: If symptoms return, Further diagnostic work-up, Recheck today's complaints, Continuance of care, Re-evaluation by your physician. - Problem is new. - Symptoms have improved. Signatures: Dispatcher [employer] [facility] Ana Maria Salinas RN RN aa1 Yvon Robertson MD MD kdr Ervin Le RN RN hj Corrections: (The following items were deleted from the chart) 08:36 07:22 Abdomen Pelvis W Con+CT.RAD.BRZ ordered. [facility] 10:27 09:58 08/25/2017 09:58 Discharged to Home. Impression: Abdominal and pelvic pain; hj Colitis. Condition is Stable. Forms are Medication Reconciliation Form, Thank You Letter, Antibiotic Education, Prescription Opioid Use. Follow up: James Vargas; When: 2 - 3 days; Reason: If symptoms return, Further diagnostic work-up, Recheck today's complaints, Continuance of care, Re-evaluation by your physician. Problem is new. Symptoms have improved. kdr
--- NOTE | 2017-08-25 09:59 | ER ---
Nurse's Notes [facility] Name: Jeovany Buckley Age: 51 yrs Sex: Male : 1965 Arrival Date: 08/25/2017 Time: 06:46 Bed 6 Private MD: James Vargas Diagnosis: Abdominal and pelvic pain;Colitis Presentation: 08/25 06:56 Presenting complaint: Patient states: low back pain for past 2-3 days and had episode aa1 of bloody emesis and dark stool last night. Reports hx of renal failure and is also on blood thinners. Transition of care: patient was not received from another setting of care. Onset of symptoms was August 21, 2017. Risk Assessment: Do you want to hurt yourself or someone else? Patient reports no desire to harm self or others. Initial Sepsis Screen: Does the patient meet any 2 criteria? No. Patient's initial sepsis screen is negative. Does the patient have a suspected source of infection? No. Patient's initial sepsis screen is negative. Care prior to arrival: None. 06:56 Method Of Arrival: Ambulatory aa1 06:56 Acuity: JED 2 aa1 Triage Assessment: 07:00 General: Appears in no apparent distress. comfortable, Behavior is calm, cooperative, aa1 appropriate for age. 07:02 Pain: Complains of pain in left low back and right low back. hj Historical: - Allergies: 07:00 Aspirin; aa1 07:00 PENICILLINS; aa1 07:00 Sulfa (Sulfonamide Antibiotics); aa1 - Home Meds: 07:00 buspirone 10 mg Oral tab 1 tab 2 times per day [Active]; Eliquis Oral [Active]; Lexapro aa1 20 mg Oral tab 1 tab once daily [Active]; lisinopril 5 mg Oral tab 1 tab once daily [Active]; Nexium 40 mg Oral cpDR 1 cap once daily [Active]; Risperdal Oral [Active]; Seroquel 400 mg Oral tab 1 tab 2 times per day [Active]; Tramadol Oral [Active]; Trazodone Oral [Active]; - PMHx: 07:00 Bipolar disorder; DVT; RLE; Turner's Disease; Hypertension; Renal Disease; aa1 - Immunization history:: Flu vaccine is up to date. - Social history:: Smoking status: Patient uses tobacco products, 1/4 PPD. - Ebola Screening: : No symptoms or risks identified at this time. Screenin:01 Abuse screen: Denies threats or abuse. Denies injuries from another. Nutritional hj screening: No deficits noted. Tuberculosis screening: No symptoms or risk factors identified. Fall Risk None identified. Assessment: 07:03 General: Appears in no apparent distress. uncomfortable, Behavior is calm, cooperative, hj appropriate for age. Pain: Complains of pain in right low back and left low back. Neuro: Level of Consciousness is awake, alert, obeys commands, Oriented to person, place, time, situation, Appropriate for age. Cardiovascular: Capillary refill < 3 seconds Patient's skin is warm and dry. Respiratory: Airway is patent Respiratory effort is even, unlabored, Respiratory pattern is regular, symmetrical. GI: No signs and/or symptoms were reported involving the gastrointestinal system. : No signs and/or symptoms were reported regarding the genitourinary system. :. EENT: No signs and/or symptoms were reported regarding the EENT system. Derm: No signs and/or symptoms reported regarding the dermatologic system. Musculoskeletal: No signs and/or symptoms reported regarding the musculoskeletal system. 08:00 Reassessment: Patient and/or family updated on plan of care and expected duration. Pain hj level reassessed. Patient is alert, oriented x 3, equal unlabored respirations, skin warm/dry/pink. awaiting results;. 08:40 Reassessment: Patient and/or family updated on plan of care and expected duration. Pain hj level reassessed. Patient is alert, oriented x 3, equal unlabored respirations, skin warm/dry/pink. wheeled to CT for CT abd;. 08:50 Reassessment: Patient and/or family updated on plan of care and expected duration. Pain hj level reassessed. Patient is alert, oriented x 3, equal unlabored respirations, skin warm/dry/pink. back from cT;. Vital Signs: 07:00 BP 116 / 76; Pulse 87; Resp 18; Temp 97.9; Pulse Ox 100% on R/A; Weight 74.84 kg; aa1 Height 5 ft. 10 in. (177.80 cm); Pain 8/10; 07:02 BP 116 / 76; Pulse 88; Resp 18; Temp 98.1(TE); Pulse Ox 100% on R/A; Weight 74.84 kg; hj Height 5 ft. 10 in. (177.80 cm); Pain 7/10; 08:00 BP 110 / 72; Pulse 85; Resp 18; Pulse Ox 100% on R/A; hj 09:09 BP 100 / 70; Pulse 84; Resp 18; Pulse Ox 100% on R/A; hj 07:02 Body Mass Index 23.67 (74.84 kg, 177.80 cm) ED Course: 06:46 Patient arrived in ED. ds1 06:46 James Vargas MD is Private Physician. ds1 06:56 Ervin Le RN is Primary Nurse. 06:57 Yvon Robertson MD is Attending Physician. kdr 06:59 Triage completed. aa1 07:01 Arm band placed on left wrist. hj 07:02 Patient has correct armband on for positive identification. Bed in low position. Call light in reach. Side rails up X 1. Adult w/ patient. 07:24 Initial lab(s) drawn, by ma, sent to lab. Inserted saline lock: 20 gauge in right ks6 forearm, using aseptic technique. Blood collected. 08:36 CT completed. Patient tolerated procedure well. Patient moved to CT via stretcher. Patient moved back from CT. 08:38 Abdomen In Process Unspecified. EDMS 09:25 Urine collected: clean catch specimen, clear, clarke blood. 3 09:57 James Vargas MD is Referral Physician. kdr Administered Medications: 09:57 Drug: Cipro 500 mg Route: PO; hj 10:27 Follow up: Response: No adverse reaction hj 09:57 Drug: Flagyl 500 mg Route: PO; hj 10:27 Follow up: Response: No adverse reaction 09:57 Drug: Pepcid 20 mg Route: PO; hj 10:27 Follow up: Response: No adverse reaction Outcome: 09:58 Discharge ordered by . kdr 10:27 Patient left the ED. Signatures: Dispatcher [employer] ED[facility] Ana Maria Salinas RN RN aa1 Yvon Robertson MD MD [facility] Shauna Lindo Temi [place] ds1 Ervin Le RN RN Mignon Bailey 3 [place], [place] ks6
[2017-08-25] MEDS ORDERED: METRONIDAZOLE 500mg IVPB 500 MG/100 ML BAG IV ONE (10:02)
[2017-08-25] MEDS ORDERED: FAMOTIDINE 20 MG/2 ML VIAL IV ONE (10:02)
[2017-08-25] MEDS ORDERED: CIPROFLOXACIN 400mg IV 400 MG/200 ML BAG IV ONE (10:02)
[2017-08-25 10:04] LABS: Urine Bacteria NONE SEEN /HPF (NONE SEEN); Urine Culture Reflex Order NOT NEEDED
[2017-08-25 10:05] LABS: Urine Blood 2+ (NEG); Urine Glucose NEGATIVE (NEG); Urine Protein NEGATIVE (NEG); Urine pH 6.5 (5.0-7.0)
[2017-08-25] MEDS ORDERED: metroNIDAZOLE 500 MG TABLET ONE (10:11)
[2017-08-25] MEDS ORDERED: CIPROFLOXACIN HCL 500 MG TAB ONE (10:11)
[2017-08-25 10:33] VITALS: O2SAT 100
[2017-08-25 10:34] VITALS: TEMP 98.1
[2017-08-25 10:36] VITALS: BP 100/70
== END 2017-08-25 10:27 | disposition home or self-care (01) ==
LOC: ER 06:45
DX: K52.9 Noninfective gastroenteritis and colitis, unspecified (principal); I10 Essential (primary) hypertension; F31.9 Bipolar disorder, unspecified; Z72.0 Tobacco use; Z88.0 Allergy status to penicillin; Z88.2 Allergy status to sulfonamides; Z88.6 Allergy status to analgesic agent
CPT/HCPCS: 36415; 74176; 80048; 80076; 85025; J0744; 81003; 81015; 99284

== ENCOUNTER 2017-09-07 14:26 | Inpatient (IN) | payer OTHER ==
--- OUTSIDE RECORDS SUMMARY | 2017-09-07 14:28 | XMS REPORT ---
[...] Start End Date Status Dosage Date Lisinopril [facility] [id number] 5 MG Orally Once Active 1 tablet a day Nexium [facility] [id number] 40 MG Orally Once Active 1 capsule a day Results No Known Results Summary Purpose eClinicalWorks Submission
--- OUTSIDE RECORDS SUMMARY | 2017-09-07 14:28 | XMS REPORT | Clinical Summary ---
:1965 Author Organization [facility] Address [address] [place] [address] Care Team Providers Name Role Phone Asked, [...] drug overdose, initial encounter (Primary Dx); 05/26/2017 Medicine MD Shannan Anemia of unknown etiology Martina Russell MD after 09/06/2016 Immunizations Name Dates Previously Given Next Due [...] - Plan of Treatment Not on file Procedures Procedure Name Priority Date/Time Associated Comments Diagnosis THYROID STIMULATING STAT 05/25/2017 7:25 Results for this HORMONE AM CDT procedure are in the results section. TOTAL IRON BINDING STAT 05/25/2017 7:25 Results for this CAPACITY AM CDT procedure are in the results section. FERRITIN LEVEL STAT 05/25/2017 7:25 Results for this AM CDT procedure are in the results section. VITAMIN B12 LEVEL Routine 05/25/2017 7:25 Results for this AM CDT procedure are in the results section. FOLATE LEVEL Routine 05/25/2017 7:25 Results for this AM CDT procedure are in the results section. ESTIMATED GFR STAT 05/25/2017 7:25 Results for this AM CDT procedure are in the results section. COMPREHENSIVE METABOLIC STAT 05/25/2017 7:25 Results for this PANEL AM CDT procedure are in the results section. HC COMPLETE BLD COUNT STAT 05/25/2017 7:25 Results for this W/AUTO DIFF AM CDT procedure are in the results section. ACETAMINOPHEN LEVEL STAT 05/25/2017 7:25 Results for this AM CDT procedure are in the results section. ESTIMATED GFR Routine 05/25/2017 4:10 Results for this AM CDT procedure are in the results section. HC COMPLETE BLD COUNT Routine 05/25/2017 4:10 Results for this W/AUTO DIFF AM CDT procedure are in the results section. BASIC METABOLIC PANEL Routine 05/25/2017 4:10 Results for this AM CDT procedure are in the results section. URINE DRUGS OF ABUSE Routine 05/25/2017 4:10 Results for this SCREEN AM CDT procedure are in the results section. URINALYSIS SCREEN AND Routine 05/25/2017 4:10 Results for this MICROSCOPY, WITH REFLEX AM CDT procedure are in TO CULTURE the results section. URINE CULTURE Routine 05/25/2017 4:10 Results for this AM CDT procedure are in the results section. ESTIMATED GFR STAT 05/24/2017 11:30 Results for this PM CDT procedure are in the results section. ALCOHOL LEVEL, BLOOD STAT 05/24/2017 11:30 Results for this PM CDT procedure are in the results section. THYROID STIMULATING STAT 05/24/2017 11:30 Results for this HORMONE PM CDT procedure are in the results section. SALICYLATE LEVEL STAT 05/24/2017 11:30 Results for this PM CDT procedure are in the results section. ACETAMINOPHEN LEVEL STAT 05/24/2017 11:30 Results for this PM CDT procedure are in the results section. TROPONIN STAT 05/24/2017 11:30 Results for this PM CDT procedure are in the results section. COMPREHENSIVE METABOLIC STAT 05/24/2017 11:30 Results for this PANEL PM CDT procedure are in the results section. PARTIAL THROMBOPLASTIN STAT 05/24/2017 11:30 Results for this TIME (PTT) PM CDT procedure are in the results section. PROTHROMBIN TIME WITH STAT 05/24/2017 11:30 Results for this INR PM CDT procedure are in the results section. HC COMPLETE BLD COUNT STAT 05/24/2017 11:30 Results for this W/AUTO DIFF PM CDT procedure are in the results section. ECG 12-LEAD STAT 05/24/2017 11:05 Results for this PM CDT procedure are in the results section. after 09/06/2016 Results Total iron binding capacity (05/25/2017 7:25 AM) Iron level 36 (L) 59 - 158 ug/dL [facility] DEPARTMENT OF PATHOLOGY AND [employer] MEDICINE Iron binding capacity 331 200 - 400 ug/dL [facility] DEPARTMENT OF PATHOLOGY AND GENOMIC MEDICINE % Saturation 10.9 (L) 20.0 - 40.0 % [facility] DEPARTMENT OF PATHOLOGY AND [employer] MEDICINE Specimen Plasma specimen Performing Organization Address [facility] Phone Number [address] Estimated GFR (05/25/2017 7:25 AM)Only the most recent of3 resultswithin the time period is included. GFR Non Af Amer 34 (A) mL/min/1.73 m2 [facility] DEPARTMENT OF PATHOLOGY AND [employer] MEDICINE GFR Af Amer 41 (A) mL/min/1.73 m2 [facility] DEPARTMENT OF Comment: PATHOLOGY AND GENOMIC Chronic kidney disease: <60 mL/min/1.73m2 MEDICINE Kidney failure: <15 mL/min/1.73m2 The estimated GFR is calculated from the IDMS-traceable Modification of Diet in Renal Disease Equation. The accuracy of the calculation is poor when the creatinine is normal. Calculated values >90 mL/min/1.73m2 are not reported. This equation has not been validated in children (<18 years), women, the elderly (>70 years), or ethnic groups other than Caucasians and Americans. Specimen Plasma specimen Performing Organization Address [facility] Phone Number [facility] PATHOLOGY AND [address] [place] [address] CBC with platelet and differential (05/25/2017 7:25 AM)Only the most recent of3 resultswithin the time period is included. WBC 8.89 4.50 - 11.00 k/uL [facility] DEPARTMENT OF PATHOLOGY AND [employer] MEDICINE RBC 3.06 (L) 4.40 - 6.00 m/uL [facility] DEPARTMENT OF PATHOLOGY AND GENOMIC MEDICINE HGB 7.8 (L) 14.0 - 18.0 g/dL [facility] DEPARTMENT OF PATHOLOGY AND GENOMIC MEDICINE HCT 25.4 (L) 41.0 - 51.0 % [facility] DEPARTMENT OF PATHOLOGY AND GENOMIC MEDICINE MCV 83.0 82.0 - 100.0 fL [facility] DEPARTMENT OF PATHOLOGY AND GENOMIC MEDICINE MCH 25.5 (L) 27.0 - 34.0 pg [facility] DEPARTMENT OF PATHOLOGY AND GENOMIC MEDICINE MCHC 30.7 (L) 31.0 - 37.0 g/dL [facility] DEPARTMENT OF PATHOLOGY AND GENOMIC MEDICINE RDW - SD 55.4 (H) 37.0 - 55.0 fL [facility] DEPARTMENT OF PATHOLOGY AND GENOMIC MEDICINE MPV 8.8 8.8 - 13.2 fL [facility] DEPARTMENT OF PATHOLOGY AND GENOMIC MEDICINE Platelet count 187 150 - 400 k/uL [facility] DEPARTMENT OF PATHOLOGY AND GENOMIC MEDICINE Nucleated RBC 0.00 /100 WBC [facility] DEPARTMENT OF PATHOLOGY AND GENOMIC MEDICINE Neutrophils 42.5 39.0 - 69.0 % [facility] DEPARTMENT OF PATHOLOGY AND GENOMIC MEDICINE Lymphocytes 48.0 (H) 25.0 - 45.0 % [facility] DEPARTMENT OF PATHOLOGY AND GENOMIC MEDICINE Monocytes 6.9 0.0 - 10.0 % [facility] DEPARTMENT OF PATHOLOGY AND GENOMIC MEDICINE Eosinophils 2.2 0.0 - 5.0 % [facility] DEPARTMENT OF PATHOLOGY AND GENOMIC MEDICINE Basophils 0.2 0.0 - 1.0 % [facility] DEPARTMENT OF PATHOLOGY AND GENOMIC MEDICINE Immature granulocytes 0.2Comment: 0.0 - 1.0 % [facility] DEPARTMENT OF "Immature PATHOLOGY AND GENOMIC granulocytes" MEDICINE (promyelocytes, myelocytes, metamyelocytes) Specimen Blood Performing Organization Address City/[facility] Phone Number [facility] DEPARTMENT OF PATHOLOGY AND [address] [place] [address] Thyroid stimulating hormone (05/25/2017 7:25 AM)Only the most recent of2 resultswithin the time period is included. TSH 1.22 0.27 - 4.20 uIU/mL [facility] DEPARTMENT OF PATHOLOGY AND GENOMIC MEDICINE Specimen Plasma specimen Performing Organization Address City/[facility] Phone Number [facility] DEPARTMENT OF PATHOLOGY AND [address] [place], [place] [id number] [facility] Folate level (05/25/2017 7:25 AM) Folate 3.3 (L) 4.8 - 24.2 ng/mL [facility] DEPARTMENT OF PATHOLOGY AND GENOMIC MEDICINE Specimen Serum Performing Organization Address City/[facility] Phone Number [facility] DEPARTMENT OF PATHOLOGY AND [address] Ferritin level (05/25/2017 7:25 AM) Ferritin level 18 (L) 30 - 400 ng/mL [facility] DEPARTMENT OF PATHOLOGY AND GENOMIC [facility] Specimen Plasma specimen Performing Organization Address City/[facility] Phone Number [facility] DEPARTMENT OF PATHOLOGY AND [address] [place] [address] Vitamin B12 level (05/25/2017 7:25 AM) Vitamin B12 250 211 - 946 pg/mL [facility] DEPARTMENT OF PATHOLOGY Comment: AND [facility] Significant overlap exists between normal and deficiency states. However, most patients with deficiencies will have Serum B12 <200 pg/mL. Specimen Serum Performing Organization Address City/[facility] Phone Number [facility] DEPARTMENT OF PATHOLOGY AND [address] [place] [address] Acetaminophen level (05/25/2017 7:25 AM)Only the most recent of2 resultswithin the time period is included. Acetaminophen level <15.0 10.0 - 30.0 ug/mL [facility] DEPARTMENT OF Comment: PATHOLOGY AND GENOMIC Therapeutic 10-30 ug/mL MEDICINE Possible Toxicity 150-200 ug/mL Probable Toxicity >200 ug/mL Specimen Plasma specimen Performing Organization Address [facility] Phone Number [facility] DEPARTMENT OF PATHOLOGY AND [address] [place] [address] Comprehensive metabolic panel (05/25/2017 7:25 AM)Only the most recent of2 resultswithin the time period is included. Sodium 141 135 - 148 mEq/L [facility] DEPARTMENT OF PATHOLOGY AND GENOMIC MEDICINE Potassium 4.2 3.5 - 5.0 mEq/L [facility] DEPARTMENT OF PATHOLOGY AND GENOMIC MEDICINE Chloride 106 98 - 112 mEq/L [facility] DEPARTMENT OF PATHOLOGY AND GENOMIC MEDICINE CO2 26 24 - 31 mEq/L [facility] DEPARTMENT OF PATHOLOGY AND GENOMIC MEDICINE Anion gap 9 7 - 15 mEq/L [facility] DEPARTMENT OF Comment: PATHOLOGY AND GENOMIC Starting from June , anion gap calculation MEDICINE no longer incorporates potassium. Please note the change. BUN 17 6 - 20 mg/dL [facility] DEPARTMENT OF PATHOLOGY AND GENOMIC MEDICINE Creatinine 2.1 (H) 0.7 - 1.2 mg/dL [facility] DEPARTMENT OF PATHOLOGY AND GENOMIC MEDICINE Glucose 80 65 - 99 mg/dL [facility] DEPARTMENT OF PATHOLOGY AND GENOMIC MEDICINE Calcium 8.8 8.3 - 10.2 mg/dL [facility] DEPARTMENT OF PATHOLOGY AND GENOMIC MEDICINE Protein 5.7 (L) 6.3 - 8.3 g/dL [facility] DEPARTMENT OF Comment: PATHOLOGY AND GENOMIC 4.6-7.0 g/dL MEDICINE 1 week 4.4-7.6 g/dL 7 months-1year5.1-7.3 g/dL 1-2 years5.6-7.5 g/dL >3 years6.0-8.0 g/dL 18-150 6.3-8.3 g/dL Albumin 2.9 (L) 3.5 - 5.0 g/dL [facility] DEPARTMENT OF PATHOLOGY AND GENOMIC MEDICINE A/G ratio 1.0 0.7 - 3.8 [facility] DEPARTMENT OF PATHOLOGY AND GENOMIC MEDICINE Alkaline phosphatase 91 40 - 129 U/L [facility] DEPARTMENT OF PATHOLOGY AND GENOMIC MEDICINE AST 26 10 - 50 U/L [facility] DEPARTMENT OF PATHOLOGY AND GENOMIC MEDICINE ALT 16 5 - 50 U/L [facility] DEPARTMENT OF PATHOLOGY AND GENOMIC MEDICINE Total bilirubin 0.3 0.0 - 1.2 mg/dL [facility] DEPARTMENT OF PATHOLOGY AND GENOMIC MEDICINE Specimen Plasma specimen Performing Organization Address City/State/[facility] Phone Number [facility] DEPARTMENT OF PATHOLOGY AND [address] [place] [phone] [facility] Urinalysis screen and microscopy, with reflex to culture (05/25/2017 4:10 AM) Specimen site Clean catch [facility] DEPARTMENT OF PATHOLOGY AND GENOMIC MEDICINE Color, UA Straw [facility] DEPARTMENT OF PATHOLOGY AND GENOMIC MEDICINE Appearance, UA Clear [facility] DEPARTMENT OF PATHOLOGY AND GENOMIC MEDICINE Specific gravity, UA 1.006 1.001 - 1.035 [facility] DEPARTMENT OF PATHOLOGY AND GENOMIC MEDICINE pH, UA 7.0 5.0 - 8.5 [facility] DEPARTMENT OF PATHOLOGY AND GENOMIC MEDICINE Protein, UA Negative Negative [facility] DEPARTMENT OF PATHOLOGY AND GENOMIC MEDICINE Glucose, UA Negative Negative [facility] DEPARTMENT OF PATHOLOGY AND GENOMIC MEDICINE Ketones, UA Negative Negative [facility] DEPARTMENT OF PATHOLOGY AND GENOMIC MEDICINE Bilirubin, UA Negative Negative [facility] DEPARTMENT OF PATHOLOGY AND GENOMIC MEDICINE Blood, UA Negative Negative [facility] DEPARTMENT OF PATHOLOGY AND GENOMIC MEDICINE Nitrite, UA Negative Negative [facility] DEPARTMENT OF PATHOLOGY AND GENOMIC MEDICINE Urobilinogen, UA <2.0 <2.0 [facility] DEPARTMENT OF PATHOLOGY AND GENOMIC MEDICINE Leukocyte esterase, UA Negative Negative [facility] DEPARTMENT OF PATHOLOGY AND GENOMIC MEDICINE Epithelial cells, UA <1 /HPF [facility] DEPARTMENT OF PATHOLOGY AND GENOMIC MEDICINE WBC, UA 1 0 - 1 /HPF [facility] DEPARTMENT OF PATHOLOGY AND GENOMIC MEDICINE RBC, UA 1 0 - 1 /HPF [facility] DEPARTMENT OF PATHOLOGY AND GENOMIC MEDICINE Bacteria, UA None seen None seen [facility] DEPARTMENT OF PATHOLOGY AND GENOMIC MEDICINE Yeast, UA None seen [facility] DEPARTMENT OF PATHOLOGY AND GENOMIC MEDICINE Yeast with pseudohyphae, UA None seen [facility] DEPARTMENT OF PATHOLOGY AND GENOMIC MEDICINE Specimen Urine Performing Organization Address City/[facility]/Zipcode Phone Number [facility] DEPARTMENT OF PATHOLOGY AND [address] [place] [id number] [facility] Urine drugs of abuse screen (05/25/2017 4:10 AM) Amphetamine screen, urine Negative [facility] DEPARTMENT OF PATHOLOGY AND GENOMIC MEDICINE Barbiturate screen, urine Negative [facility] DEPARTMENT OF PATHOLOGY AND GENOMIC MEDICINE Benzodiazepine screen, Negative [facility] DEPARTMENT OF urine PATHOLOGY AND GENOMIC MEDICINE Cannabinoid screen, urine Negative [facility] DEPARTMENT OF PATHOLOGY AND GENOMIC MEDICINE Cocaine screen, urine Negative [facility] DEPARTMENT OF PATHOLOGY AND GENOMIC MEDICINE Methadone metabolite Negative [facility] DEPARTMENT OF (EDDP), urine PATHOLOGY AND GENOMIC MEDICINE Opiates screen, urine Negative [facility] DEPARTMENT OF PATHOLOGY AND GENOMIC MEDICINE Oxycodone screen, urine Negative [facility] DEPARTMENT OF PATHOLOGY AND GENOMIC MEDICINE Phencyclidine screen, urine Negative [facility] DEPARTMENT OF PATHOLOGY AND GENOMIC MEDICINE Tricyclic screen, urine Negative [facility] DEPARTMENT OF Comment: PATHOLOGY AND GENOMIC Drug screen minimum concentration of detectability MEDICINE [id number] ng/mL Barbiturates 200 ng/mL Xbqvmyfzocrahew401 ng/mL Lwcqsvh103 ng/mL Uqobskrja404 ng/mL Rrjcher598 ng/mL Frmdjgntq457 ng/mL Phencyclidine 25 ng/mL Unlrxjpgkqkn45 ng/mL Llveherhdv2599 ng/mL Negative test results indicates presumptive evidence of lack of clinically significant drug concentration in this urine specimen. Positive test results are presumptive evidence of clinically significant drug concentration in this urine specimen. Testing performed for medical purposes only. Specimen Urine Performing Organization Address City/[facility]/Zipcode Phone Number [facility] DEPARTMENT OF PATHOLOGY AND [address] [place] [phone] [facility] Urine culture (05/25/2017 4:10 AM) Urine culture SEE COMMENTComment: Bacteriuria [facility] DEPARTMENT OF PATHOLOGY screen negative. AND GENOMIC MEDICINE Performing Organization Address City/State/Zipcode Phone Number [facility] DEPARTMENT OF PATHOLOGY AND [address] [place] [address] Basic metabolic panel (05/25/2017 4:10 AM) Sodium 140 135 - 148 mEq/L [facility] DEPARTMENT OF PATHOLOGY AND GENOMIC MEDICINE Potassium 4.2 3.5 - 5.0 mEq/L [facility] DEPARTMENT OF PATHOLOGY AND GENOMIC MEDICINE Chloride 105 98 - 112 mEq/L [facility] DEPARTMENT OF PATHOLOGY AND GENOMIC MEDICINE CO2 24 24 - 31 mEq/L [facility] DEPARTMENT OF PATHOLOGY AND GENOMIC MEDICINE Anion gap 11 7 - 15 mEq/L [facility] DEPARTMENT OF PATHOLOGY Comment: [facility] Starting from June , anion gap calculation no longer incorporates potassium. Please note the change. BUN 18 6 - 20 mg/dL [facility] DEPARTMENT OF PATHOLOGY AND GENOMIC MEDICINE Creatinine 2.0 (H) 0.7 - 1.2 mg/dL [facility] DEPARTMENT OF PATHOLOGY AND GENOMIC MEDICINE Glucose 79 65 - 99 mg/dL [facility] DEPARTMENT OF PATHOLOGY AND GENOMIC MEDICINE Calcium 8.9 8.3 - 10.2 mg/dL [facility] DEPARTMENT OF PATHOLOGY AND GENOMIC MEDICINE Specimen Plasma specimen Performing Organization Address City/[facility] Phone Number [facility] DEPARTMENT OF PATHOLOGY AND [address] [place] [address] Troponin (05/24/2017 11:30 PM) Troponin <0.30 0.00 - 0.30 ng/mL [facility] DEPARTMENT OF PATHOLOGY Comment: [facility] 0.30 - 1.49 ng/mlMay indicate increased risk of acute coronary syndrome. >=1.5 ng/mlConsistent with acute myocardial infarction. The diagnostic value of a single normal or non-diagnostic result is questionable.Serial samples at 2-6 hour intervals are required to rule out acute myocardial injury. Specimen Plasma specimen Performing Organization Address City/[facility] Phone Number [facility] DEPARTMENT OF PATHOLOGY AND [address] [place] [address] Partial thromboplastin time, activated (05/24/2017 11:30 PM) PTT 23.5 23.0 - 36.0 sec [facility] DEPARTMENT OF PATHOLOGY Comment: [facility] PTT therapeutic range for unfractionated heparin is 61.0-112.0 seconds which corresponds to Anti-Xa 0.3-0.7 U/ml. Specimen Blood Performing Organization Address City/[facility] Phone Number [facility] DEPARTMENT OF PATHOLOGY AND [address] [place] [address] Prothrombin time with INR (05/24/2017 11:30 PM) Prothrombin time 13.0 12.0 - 15.0 sec [facility] DEPARTMENT OF PATHOLOGY AND GENOMIC MEDICINE INR 1.0 [facility] DEPARTMENT OF Comment: PATHOLOGY AND GENOMIC The International Normalized Ratio (INR) is a therapeutic MEDICINE monitoring tool for patients who are stable on oral anticoagulant therapy. An INR of 2.0-3.0 is suggested for deep vein thrombosis/pulmonary embolism. Specimen Blood Performing Organization Address City/[facility] Phone Number [facility] DEPARTMENT OF PATHOLOGY AND [address] [place] [address] Alcohol level, blood (05/24/2017 11:30 PM) Alcohol None Detected mg/dL [facility] DEPARTMENT OF PATHOLOGY Comment: AND [facility] MEDICINE Normal None Detected Legal Intoxication in [place]80 mg/dL (0.08%) - Whole Blood Toxic Opicdevhciqjp393 mg/dL (0.2%) Potentially Uhqpr459 - 500 mg/dL (0.35 - 0.5%) Alcohol percent None Detected % [facility] DEPARTMENT OF PATHOLOGY AND GENOMIC MEDICINE Specimen Plasma specimen Performing Organization Address [facility] Phone Number [facility] DEPARTMENT OF PATHOLOGY AND [address] [place] [address] Salicylate level (05/24/2017 11:30 PM) Salicylate <3.0 3.0 - 30.0 mg/dL [facility] DEPARTMENT OF PATHOLOGY AND GENOMIC MEDICINE Specimen Plasma specimen Performing Organization Address [facility] Phone Number [facility] DEPARTMENT OF PATHOLOGY AND [address] [place] [address] ECG 12 lead (05/24/2017 11:05 PM) Ventricular rate 80 [facility] Atrial rate 80 [facility] FL interval 190 [facility] QRSD interval 84 [facility] QT interval 374 [facility] QTC interval 431 [facility] P axis 1 33 [facility] QRS axis 1 -31 [facility] T wave axis 21 [facility] MUSE EKG impression Normal sinus rhythm-Left axis deviation-Low [facility] MUSE voltage QRS-Borderline ECG-- Performing Organization Address City/[facility] Phone Number [facility] MUSE [address] [place], [place] [address] [address] after 09/06/2016 Insurance Payer Benefit Plan / Group Subscriber ID Type Phone Address MEDICARE MEDICARE PART A AND B xxxxxxxxxx Medicare [place], [place] Home: [address] [place] [phone] [place] [id number]
--- OUTSIDE RECORDS SUMMARY | 2017-09-07 14:28 | XMS REPORT ---
:1965 Author Organization [facility] Address [address] [place] [address] [address] [place] [address] Care Team Providers Name Role Phone Unavailable Unavailable Unavailable Problems This patient has no known problems. Allergies, Adverse Reactions, Alerts This patient has no known allergies or adverse reactions. Medications This patient has no known medications.
[2017-09-07 14:46] LABS: Arterial Blood Carboxyhemoglob 2.1 % (0-1.5); Blood Gas Oxyhemoglobin 95.3 % (94-97); Blood O2 Saturation 98.4 % (92-98.5)
[2017-09-07] MEDS ORDERED: NA CHLORIDE 0.9% 1,000 ML ONE (14:52)
[2017-09-07 14:59] LABS: Absolute Lymphocytes (CBC) 2.7 K/uL (0.7-4.9); Absolute Monocytes 0.8 K/uL (0.1-1.3); Absolute Neutrophil 7.3 K/uL (1.8-8.0); Basophils % 0.3 % (0-1.3); Eosinophils % 1.5 % (0-4.4); Hematocrit 35.2 % (39.6-49.0); Lymphocytes % 24.9 % (15.3-44.8); MCH 28.3 pg (27.0-35.0); MCV 87.8 fL (80-100); MPV 7.9 fL (7.6-11.3); Monocytes % 6.8 % (3.3-12.3)
[2017-09-07 15:03] LABS: Protime INR 0.94
[2017-09-07 15:30] LABS: Barbiturates NEGATIVE (NEGATIVE); Benzodiazepines NEGATIVE (NEGATIVE); Cocaine NEGATIVE (NEGATIVE); METHAMPHETAM NEGATIVE (NEGATIVE); Methadone NEGATIVE (NEGATIVE); Opiates NEGATIVE (NEGATIVE); Phencyclidine NEGATIVE (NEGATIVE); THC Cannibis NEGATIVE (NEGATIVE)
--- NOTE | 2017-09-07 15:38 | EKG ---
Test Date: 2017-09-07 Test Time: 14:26:52 Director Business Integration: BIMAL MEASUREMENT RESULTS: Intervals: Rate: 88 NE: 178 QRSD: 86 QT: 370 QTc: 447 [place]: P: 55 NE: 178 QRS: -55 T: 59 INTERPRETIVE STATEMENTS: Normal sinus rhythm Left axis deviation Abnormal ECG Compared to ECG 06/18/2017 08:44:22 Left-axis deviation now present Atrial premature complex(es) no longer present Left anterior fascicular block no longer present Electronically Signed On 09-07-17 15:38:09 CDT by Melvin Roa
[2017-09-07 15:41] LABS: Urine Blood NEGATIVE (NEG); Urine Glucose NEGATIVE (NEG); Urine Protein NEGATIVE (NEG); Urine Specific Gravity <1.005 (1.005-1.030)
[2017-09-07 15:57] LABS: ALT/SGPT 19 U/L (12-78); AST/SGOT 24 U/L (15-37); Albumin 3.5 g/dL (3.4-5.0); Alkaline Phosphatase 97 U/L (45-117); BUN Blood Urea Nitrogen 9 mg/dL (7-18); Bicarbonate 24 mmol/L (21-32); Bilirubin Direct < 0.1 mg/dL (0-0.2); Bilirubin Total 0.3 mg/dL (0.2-1.0); Glucose Level 76 mg/dL (74-106); Potassium 3.7 mmol/L (3.5-5.1); Protein, Total 6.6 g/dL (6.4-8.2); Sodium Level 135 mmol/L (136-145)
--- NOTE | 2017-09-07 15:58 | EDPHYS ---
Physician Documentation [facility] Name: Jeovany Buckley Age: 51 yrs Sex: Male : 1965 Arrival Date: 09/07/2017 Time: 14:33 Bed 14 Private MD: James Vargas ED Physician Kevin Mojica HPI: 09/07 15:43 This 51 yrs old Male presents to ER via EMS with complaints of Possible jr8 Overdose. 15:43 The patient presents to the emergency department after a known overdose, that was jr8 intentional. 15:49 Context: Method: the patient has a confirmed or suspected ingestion, Tramadol , Extent: jr8 the original prescription was for 50 pills/capsules, the strength of the pills/capsules is 50 mg(s), Psychiatric history: the patient has a known psychiatric disorder, bipolar disorder, depression, Previous OD/poisoning history: yes. Severity of symptoms: At their worst the symptoms were moderate in the emergency department the symptoms are unchanged. The patient has experienced a previous episode. The patient has not recently seen a physician. Patient came in minimally responsive. Able to talk at this time. Stated that he took 50 Tramadol that are 50mg a pill. Stated that he was trying to kill himself. Has done this once before. Stated that he is depressed over living situation. Unknown when ingestion occurred today. Historical: - Allergies: 14:45 Aspirin; iw 14:45 Sulfa (Sulfonamide Antibiotics); iw 14:45 PENICILLINS; iw - PMHx: 14:45 Bipolar disorder; DVT; RLE; Wise's Disease; Hypertension; Renal Disease; iw - Immunization history:: Adult Immunizations unknown. - Social history:: Smoking status: . - Ebola Screening: : Patient negative for fever greater than or equal to 101.5 degrees Fahrenheit, and additional compatible Ebola Virus Disease symptoms Patient denies exposure to infectious person Patient denies travel to an Ebola-affected area in the 21 days before illness onset No symptoms or risks identified at this time. ROS: 15:49 Eyes: Negative for injury, pain, redness, and discharge, ENT: Negative for injury, jr8 pain, and discharge, Neck: Negative for injury, pain, and swelling, Cardiovascular: Negative for chest pain, palpitations, and edema, Respiratory: Negative for shortness of breath, cough, wheezing, and pleuritic chest pain, Abdomen/GI: Negative for abdominal pain, nausea, vomiting, diarrhea, and constipation, Back: Negative for injury and pain, MS/Extremity: Negative for injury and deformity, Skin: Negative for injury, rash, and discoloration, Neuro: Negative for headache, weakness, numbness, tingling, and seizure. 15:49 Psych: Positive for depression, suicide gesture, suicidal ideation. Exam: 15:49 Eyes: Pupils equal round and reactive to light, extra-ocular motions intact. Lids and jr8 lashes normal. Conjunctiva and sclera are non-icteric and not injected. Cornea within normal limits. Periorbital areas with no swelling, redness, or edema. ENT: Nares patent. No nasal discharge, no septal abnormalities noted. Tympanic membranes are normal and external auditory canals are clear. Oropharynx with no redness, swelling, or masses, exudates, or evidence of obstruction, uvula midline. Mucous membranes moist. Neck: Trachea midline, no thyromegaly or masses palpated, and no cervical lymphadenopathy. Supple, full range of motion without nuchal rigidity, or vertebral point tenderness. No Meningismus. Cardiovascular: Regular rate and rhythm with a normal S1 and S2. No gallops, murmurs, or rubs. Normal PMI, no JVD. No pulse deficits. Respiratory: Lungs have equal breath sounds bilaterally, clear to auscultation and percussion. No rales, rhonchi or wheezes noted. No increased work of breathing, no retractions or nasal flaring. Abdomen/GI: Soft, non-tender, with normal bowel sounds. No distension or tympany. No guarding or rebound. No evidence of tenderness throughout. Back: No spinal tenderness. No costovertebral tenderness. Full range of motion. Skin: Warm, dry with normal turgor. Normal color with no rashes, no lesions, and no evidence of cellulitis. MS/ Extremity: Pulses equal, no cyanosis. Neurovascular intact. Full, normal range of motion. Neuro: Patient alert to verbal stimulus. Oriented to person, place, time, and situation. Cranial nerves II-XII grossly intact. Motor strength 5/5 in all extremities. Sensory grossly intact. Cerebellar exam normal. Normal gait. Vital Signs: 14:39 BP 135 / 96; Pulse 78; Resp 16 S; Pulse Ox 98% on R/A; Pain 0/10; iw 14:55 Resp 14; Pulse Ox 100% on 2 lpm NC; Pain 0/10; ss 15:19 BP 132 / 95; Pulse 80; Resp 16; Pulse Ox 100% on 2 lpm NC; jb1 15:30 BP 132 / 92; Pulse 78; Resp 11 S; Pulse Ox 100% on 3 lpm NC; sg 15:35 Temp 98.9(TE); sg 17:00 BP 126 / 86; Pulse 75 MON; Resp 12 S; Pulse Ox 99% on R/A; Pain 0/10; sg 18:24 BP 125 / 92; Pulse 72; Resp 17; Pulse Ox 100% on 2 lpm NC; jb1 19:45 BP 116 / 74; Pulse 69; Resp 12; Pulse Ox 100% ; cb2 20:22 BP 119 / 80; Pulse 69; Resp 16; Pulse Ox 99% on R/A; Pain 0/10; aa1 Kristina Coma Score: 15:49 Eye Response: to voice(3). Verbal Response: oriented(5). Motor Response: obeys [facility] commands(6). Total: 14. 17:00 Eye Response: spontaneous(4). Verbal Response: oriented(5). Motor Response: obeys commands(6). Total: 15. MDM: 14:34 Patient medically screened. [facility] 15:56 Data reviewed: vital signs, nurses notes, lab test result(s), EKG, and as a result, I [facility] will admit patient. Data interpreted: Pulse oximetry: on room air is 100 %. Interpretation: normal. Counseling: I had a detailed discussion with the patient and/or guardian regarding: the historical points, exam findings, and any diagnostic results supporting the discharge/admit diagnosis, lab results, the need for further work-up and treatment in the hospital. Physician consultation: James Vargas MD was called at 15:57, was contacted at 15:57, regarding admission, to the ICU, consult, patient's condition, and will see patient. 09/07 14:34 Order name: Acetaminophen [facility] 09/07 14:34 Order name: Basic Metabolic Panel [facility] 09/07 14:34 Order name: CBC with Diff; Complete Time: 15:01 [facility] 09/07 14:34 Order name: ETOH Level; Complete Time: 17:21 [facility] 09/07 14:34 Order name: Hepatic Function; Complete Time: 17:21 [facility] 09/07 14:34 Order name: PT-INR; Complete Time: 15:18 [facility] 09/07 14:34 Order name: Ptt, Activated; Complete Time: 15:18 [facility] 09/07 14:34 Order name: Salicylate; Complete Time: 15:38 [facility] 09/07 14:34 Order name: Urine Drug Screen; Complete Time: 15:38 [facility] 09/07 14:34 Order name: EKG; Complete Time: 14:34 [facility] 09/07 14:34 Order name: Acetaminophen Level; Complete Time: 17:21 [facility] 09/07 14:34 Order name: Basic Metabolic Panel; Complete Time: 17:21 [facility] 09/07 14:35 Order name: ABG; Complete Time: 15:38 [facility] 09/07 15:17 Order name: Urine Dipstick--Ancillary (enter results); Complete Time: 15:43 09/07 14:34 Order name: EKG - Nurse/Tech; Complete Time: 14:47 [facility] 09/07 14:34 Order name: IV Saline Lock; Complete Time: 14:47 [facility] 09/07 14:34 Order name: Labs collected and sent; Complete Time: 14:47 [facility] 09/07 14:34 Order name: Urine Dipstick-Ancillary (obtain specimen); Complete Time: 15:02 jr Administered Medications: No medications were administered Disposition: 09/08 06:47 Co-signature as Attending Physician, Kevin Mojica MD I agree with the assessment and marky plan of care. Disposition: 09/07/17 15:57 Hospitalization ordered by James Vargas for Inpatient Admission. Preliminary diagnosis are Suicidal ideations, Suicide attempt. - Bed requested for Intensive Care Unit. - Status is Inpatient Admission. aa1 - Condition is Fair. - Problem is new. - Symptoms have improved. UTI on Admission? No Signatures: [facility] Azalia Lozoya RN RN mw Kern, Alissa, RN RN aa1 Kevin Mojica MD MD cha Williams, Irene, RN RN Delfin Wood PA PA jr8 Corrections: (The following items were deleted from the chart) 09/07 19:29 15:57 Hospitalization Ordered by James Vargas MD for Inpatient Admission. Preliminary mw diagnosis is Suicidal ideations; Suicide attempt. Bed requested for Intensive Care Unit. Status is Inpatient Admission. Condition is Fair. Problem is new. Symptoms have improved. UTI on Admission? No. jr8 20:56 19:29 09/07/2017 15:57 Hospitalization Ordered by James Vargas MD for Inpatient aa1 Admission. Preliminary diagnosis is Suicidal ideations; Suicide attempt. Bed requested for Intensive Care Unit. Status is Inpatient Admission. Condition is Fair. Problem is new. Symptoms have improved. UTI on Admission? No. mw
--- NOTE | 2017-09-07 15:58 | ER ---
Nurse's Notes [facility] Name: Jeovany Buckley Age: 51 yrs Sex: Male : 1965 Arrival Date: 09/07/2017 Time: 14:33 Bed 14 Private MD: James Vargas Diagnosis: Suicidal ideations;Suicide attempt Presentation: 09/07 14:35 Presenting complaint: EMS states: [place], responsive only to pain, pt iw took approx 30-40 tabs of tramadol. Pt arrives to ER, spontaneous eye opening, not verbal, respirations even and unlabored, 98% on RA, skin pink, warm, dry. Transition of care: patient was not received from another setting of care. Onset of symptoms was September 07, 2017. Risk Assessment: Do you want to hurt yourself or someone else? Patient reports no desire to harm self or others. Initial Sepsis Screen: Does the patient meet any 2 criteria? No. Patient's initial sepsis screen is negative. Does the patient have a suspected source of infection? No. Patient's initial sepsis screen is negative. Care prior to arrival: IV initiated. 20 GA, in the left forearm. 14:35 Method Of Arrival: EMS: [facility] iw 14:35 Acuity: JED 2 iw Historical: - Allergies: 14:45 Aspirin; iw 14:45 Sulfa (Sulfonamide Antibiotics); iw 14:45 PENICILLINS; iw - PMHx: 14:45 Bipolar disorder; DVT; RLE; Cheshire's Disease; Hypertension; Renal Disease; iw - Immunization history:: Adult Immunizations unknown. - Social history:: Smoking status: . - Ebola Screening: : Patient negative for fever greater than or equal to 101.5 degrees Fahrenheit, and additional compatible Ebola Virus Disease symptoms Patient denies exposure to infectious person Patient denies travel to an Ebola-affected area in the 21 days before illness onset No symptoms or risks identified at this time. Screenin:55 Abuse screen: Denies threats or abuse. Denies injuries from another. Nutritional ss screening: No deficits noted. Tuberculosis screening: Never had TB. 20:00 Fall Risk None identified. aa1 Assessment: 14:40 General: Appears in no apparent distress. well developed, Behavior is quiet. Pain: iw Unable to use pain scale. FLACC scale score is 0 out of 10. Neuro: Level of Consciousness is awake, Oriented to none. Cardiovascular: Capillary refill < 3 seconds in bilateral fingers Patient's skin is warm and dry. Respiratory: Respiratory effort is even, unlabored, Respiratory pattern is regular, symmetrical, Breath sounds are clear bilaterally. GI: Abdomen is flat, non-distended. Derm: Skin is pink, warm \T\ dry. normal. Musculoskeletal: Range of motion: intact in all extremities. 14:56 Reassessment: Pt reports he attempted suicide because he is having a hard time finding ss a place to stay. 15:38 Reassessment: Patient appears in no apparent distress at this time. Poison control sg notified spoke with [facility], adivsed to treat sypmtoms and offer supportive care, monitor VS for bradycardia, Hypotension, Resp depression if other medications were ingetsted, no charcoal at this time, IV fluids, and psych consult, seizure precautions, if Resp depression occurs Narcan. Chi GLASER notified of poison control consult. 17:20 Reassessment: Patient appears in no apparent distress at this time. Patient and/or sg family updated on plan of care and expected duration. Pain level reassessed. drowsy, pt laying in bed, HOB elevated 45 degrees, SRX2, bed in low and locked position, call light within reach Patient states symptoms have not improved. 20:00 Reassessment: Patient appears in no apparent distress at this time. Patient and/or aa1 family updated on plan of care and expected duration. Pain level reassessed. Patient is alert, oriented x 3, equal unlabored respirations, skin warm/dry/pink. Awaiting admission to ICU. Overdose: 14:40 Patient took Tramadol 50 mg, approx 40 tablets. Overdose occurred 2-3 hours ago. sg Vital Signs: 14:39 BP 135 / 96; Pulse 78; Resp 16 S; Pulse Ox 98% on R/A; Pain 0/10; iw 14:55 Resp 14; Pulse Ox 100% on 2 lpm NC; Pain 0/10; ss 15:19 BP 132 / 95; Pulse 80; Resp 16; Pulse Ox 100% on 2 lpm NC; jb1 15:30 BP 132 / 92; Pulse 78; Resp 11 S; Pulse Ox 100% on 3 lpm NC; sg 15:35 Temp 98.9(TE); sg 17:00 BP 126 / 86; Pulse 75 MON; Resp 12 S; Pulse Ox 99% on R/A; Pain 0/10; sg 18:24 BP 125 / 92; Pulse 72; Resp 17; Pulse Ox 100% on 2 lpm NC; jb1 19:45 BP 116 / 74; Pulse 69; Resp 12; Pulse Ox 100% ; cb2 20:22 BP 119 / 80; Pulse 69; Resp 16; Pulse Ox 99% on R/A; Pain 0/10; aa1 Vitals: 15:30 Cardiac Rhythm Assessment Sinus rhythm. sg 17:00 Cardiac Rhythm Assessment Sinus rhythm. sg Kristina Coma Score: 15:49 Eye Response: to voice(3). Verbal Response: oriented(5). Motor Response: obeys jr8 commands(6). Total: 14. 17:00 Eye Response: spontaneous(4). Verbal Response: oriented(5). Motor Response: obeys sg commands(6). Total: 15. ED Course: 14:33 Patient arrived in ED. ss 14:33 James Vargas MD is Private Physician. ss 14:34 Delfin Wood PA is PHCP. jr8 14:34 Kevin Mojica MD is Attending Physician. jr8 14:35 Alejandra Sandy RN is Primary Nurse. iw 14:39 Triage completed. iw 14:40 Arm band placed on. iw 14:41 EKG done, by textile technologist. reviewed by Delfin GLASER. at1 14:45 Safety Checks: Personal items have been removed. The door is open or patient has been sg placed in a hallway bed/chair. There are no family/friend visitors at this time Sitter present at this time. 14:54 Maintain EMS IV. Dressing intact. Good blood return noted. Site clean \T\ dry. Gauge \T\ ss site: 20 gauge in L forearm. Oxygen administration via nasal cannula \T\ 2L/min. Thermoregulation:. 14:55 Patient has correct armband on for positive identification. Bed in low position. Call ss light in reach. Side rails up X2. school lunch monitor on. Pulse ox on. NIBP on. Pillow given. 14:57 ABG Sent. ss 14:57 Acetaminophen Level Sent. ss 14:57 Basic Metabolic Panel Sent. ss 14:57 CBC with Diff Sent. ss 14:57 ETOH Level Sent. ss 14:57 Hepatic Function Sent. ss 14:57 PT-INR Sent. ss 14:57 Ptt, Activated Sent. ss 14:57 Salicylate Sent. ss 14:57 Urine Drug Screen Sent. ss 14:58 Basic Metabolic Panel Sent. ss 14:58 Acetaminophen Sent. ss 15:00 Safety Checks: Personal items have been removed. The door is open or patient has been sg placed in a hallway bed/chair. There are no family/friend visitors at this time Sitter present at this time. 15:10 Safety checks: Door open/sign placed on door: yes. Family/friend present: no. jb1 15:15 Safety Checks: Personal items have been removed. The door is open or patient has been sg placed in a hallway bed/chair. There are no family/friend visitors at this time Sitter present at this time. 15:18 Straight cath inserted, using sterile technique, 16 Fr. Specimen obtained. jb1 15:18 Urine collected: straight cath specimen, clear, jeovany colored. jb1 15:30 Safety Checks: Personal items have been removed. The door is open or patient has been sg placed in a hallway bed/chair. There are no family/friend visitors at this time Sitter present at this time. 15:30 Safety checks: Door open/sign placed on door: yes. Family/friend present: no. jb1 15:45 Safety Checks: Personal items have been removed. The door is open or patient has been sg placed in a hallway bed/chair. There are no family/friend visitors at this time Sitter present at this time. 15:45 Safety checks: Door open/sign placed on door: yes. Family/friend present: no. jb1 15:57 James Vargas MD is Hospitalizing Provider. jr8 16:00 Safety Checks: Personal items have been removed. The door is open or patient has been sg placed in a hallway bed/chair. There are no family/friend visitors at this time Sitter present at this time. 16:00 Safety checks: Door open/sign placed on door: yes. Family/friend present: no. jb1 16:15 Safety Checks: Personal items have been removed. The door is open or patient has been sg placed in a hallway bed/chair. There are no family/friend visitors at this time Sitter present at this time. 16:30 Safety Checks: Personal items have been removed. The door is open or patient has been sg placed in a hallway bed/chair. There are no family/friend visitors at this time Sitter present at this time. 16:30 Safety checks: Door open/sign placed on door: yes. Family/friend present: no. jb1 16:45 Safety Checks: Personal items have been removed. The door is open or patient has been sg placed in a hallway bed/chair. There are no family/friend visitors at this time Sitter present at this time. 16:50 Safety checks: Door open/sign placed on door: yes. Family/friend present: no. jb1 17:00 Primary Nurse role handed off by Alejandra Sandy RN 17:00 Tang Goel RN is Primary Nurse. sg 17:00 Safety Checks: Personal items have been removed. The door is open or patient has been sg placed in a hallway bed/chair. There are no family/friend visitors at this time Sitter present at this time. 17:10 Safety checks: Door open/sign placed on door: yes. Family/friend present: no. jb1 17:15 No apparent distress. Resting quietly. Safety Checks: Personal items have been removed. sg The door is open or patient has been placed in a hallway bed/chair. There are no family/friend visitors at this time Sitter present at this time. 17:30 Safety Checks: Personal items have been removed. The door is open or patient has been sg placed in a hallway bed/chair. There are no family/friend visitors at this time Sitter present at this time. 17:30 Safety checks: Door open/sign placed on door: yes. Family/friend present: no. jb1 17:45 Safety Checks: Personal items have been removed. The door is open or patient has been sg placed in a hallway bed/chair. There are no family/friend visitors at this time Sitter present at this time. 17:45 Safety checks: Door open/sign placed on door: yes. Family/friend present: no. jb1 18:00 Safety Checks: Personal items have been removed. The door is open or patient has been sg placed in a hallway bed/chair. There are no family/friend visitors at this time Sitter present at this time. 18:00 Safety checks: Door open/sign placed on door: yes. Family/friend present: no. jb1 18:15 Safety Checks: Personal items have been removed. The door is open or patient has been sg placed in a hallway bed/chair. There are no family/friend visitors at this time Sitter present at this time. 18:23 Safety checks: Door open/sign placed on door: yes. Family/friend present: no. jb1 18:30 Safety Checks: Personal items have been removed. The door is open or patient has been sg placed in a hallway bed/chair. There are no family/friend visitors at this time Sitter present at this time. 18:44 Safety checks: Door open/sign placed on door: yes. Family/friend present: no. jb1 18:45 Safety Checks: Personal items have been removed. The door is open or patient has been sg placed in a hallway bed/chair. There are no family/friend visitors at this time Sitter present at this time. 19:00 Safety Checks: Personal items have been removed. The door is open or patient has been sg placed in a hallway bed/chair. There are no family/friend visitors at this time Sitter present at this time. 19:00 Safety checks: Items removed: yes. Door open/sign placed on door: yes. Family/friend cb2 present: no. 19:13 Safety Checks: Personal items have been removed. The door is open or patient has been sg placed in a hallway bed/chair. There are no family/friend visitors at this time Sitter present at this time. 19:15 Safety checks: Items removed: yes. Door open/sign placed on door: yes. Family/friend cb2 present: no. 19:32 Safety checks: Items removed: yes. Door open/sign placed on door: yes. Family/friend cb2 present: no. 19:45 Safety checks: Items removed: yes. Door open/sign placed on door: yes. Family/friend cb2 present: no. 20:00 Safety Checks: Personal items have been removed. The door is open or patient has been aa1 placed in a hallway bed/chair. There are no family/friend visitors at this time Sitter present at this time. 20:15 Safety Checks: Personal items have been removed. The door is open or patient has been aa1 placed in a hallway bed/chair. There are no family/friend visitors at this time Sitter present at this time. 20:24 No provider procedures requiring assistance completed. Patient admitted, IV remains in aa1 place. 20:30 Safety Checks: Personal items have been removed. The door is open or patient has been aa1 placed in a hallway bed/chair. There are no family/friend visitors at this time Sitter present at this time. Administered Medications: No medications were administered Outcome: 15:57 Decision to Hospitalize by Provider. jr8 20:30 Admitted to ICU accompanied by nurse, accompanied by tech, via stretcher, room 7, on 1 monitor, with chart, Other bedside report given to Bobbi Beaver RN 20:30 Condition: stable 20:30 Instructed on the need for admit, Demonstrated understanding of instructions. 20:56 Patient left the ED. aa1 Signatures: Bhavin Rdz jb1 Tang Goel RN RN sg Kern, Alissa RN RN aa1 Alejandra Sandy RN RN Toya Simpson RN RN ss Roszak, Josh, JAILYN PA jr8 Sandi lutz, master hearth technician EKG Tat1 Tyler Rose
[2017-09-07 16:16] LABS: Alcohol Serum/Plasma 8 mg/dL (0-3)
--- NOTE | 2017-09-07 17:45 | P.HP ---
Certification for Inpatient Patient admitted to: Inpatient With expected LOS: >2 Midnights Patient will require the following post-hospital care: Other (mental health placement) Practitioner: I am a practitioner with admitting privileges, knowledge of patient current condition, hospital course, and medical plan of care. Services: Services provided to patient in accordance with Admission requirements found in Title 42 Section 412.3 of the Code of Federal Regulations Patient History Date of Service: 09/07/17 Reason for admission: suicide attempt History of Present Illness: Patient is a unfortunately homeless gentleman. He has been trying to get some place to live. However this has been difficult. His oldest child has cerebral palsy and recently tried commiting suicde. The patient took his trazodone and tramadol in an attempt at suicide. States that he felt overwhelmed. He does not have a home to go to. Or anyone to stay with. Allergies aspirin Allergy (Unverified 07/07/17 13:17) Unknown Penicillins Adverse Reaction (Verified 06/17/17 22:20) Anaphylaxis Sulfa (Sulfonamide Antibiotics) Adverse Reaction (Verified 06/17/17 22:20) Anaphylaxis Home Medications: Buspirone HCl [Buspar] 10 mg PO BID 06/17/17 Escitalopram [Lexapro*] 20 mg PO BID 06/17/17 Esomeprazole Mag Trihydrate [Nexium] 40 mg PO DAILY 06/17/17 Quetiapine [Seroquel*] 200 mg PO DAILY 06/17/17 Quetiapine [Seroquel*] 800 mg PO BEDTIME 06/17/17 Trazodone HCl [Desyrel] 100 mg PO BID 06/17/17 traMADol HCL [Ultram*] 50 mg PO Q6H PRN 06/17/17 Cyanocobalamin (Vitamin B-12) [Vitamin B-12] 1,000 mcg PO DAILY #90 capsule 08/30 Ferrous Sulfate [Iron] 325 mg PO BID #60 tablet 06/18/17 Apixaban [Eliquis] 5 mg PO BID #60 tablet 06/19/17 - Past Medical/Surgical History Diabetic: No -: Bipolar Disorder -: Renal Disease -: [place]'s Disease -: Hypertension -: hyperlipidemia - Family History Father -: Heart disease - Social History Alcohol use: No CD- Drugs: No Caffeine use: No Review of Systems 10-point ROS is otherwise unremarkable General: Other (depression) Physical Examination - Physical Exam General: Alert, In no apparent distress HEENT: Atraumatic, PERRLA, Mucous membr. moist/pink, EOMI, Sclerae nonicteric Neck: Supple, 2+ carotid pulse no bruit, No LAD, Without JVD or thyroid abnormality Respiratory: Clear to auscultation bilaterally, Normal air movement Cardiovascular: Regular rate/rhythm, Normal S1 S2 Gastrointestinal: Normal bowel sounds, No tenderness Musculoskeletal: No tenderness Integumentary: No rashes Neurological: Normal gait, Normal speech, Normal strength at 5/5 x4 extr, Normal tone, Normal affect Lymphatics: No axilla or inguinal lymphadenopathy - Studies Laboratory Data (last 24 hrs) 09/07/17 14:32: PT 11.1, INR 0.94, APTT 22.1 L 09/07/17 14:32: WBC 11.0 H D, Hgb 11.3 L, Hct 35.2 L, Plt Count 211 09/07/17 14:32: Sodium 135 L, Potassium 3.7, BUN 9, Creatinine 1.70 H, Glucose 76, Total Bilirubin 0.3, AST 24, ALT 19, Alkaline Phosphatase 97 Assessment and Plan - Problems (Diagnosis) (1) Suicide attempt Current Visit: Yes Status: Acute Plan: Will admit to the ICU. Will have clinical social work therapist [facility]. patient may need placement due to his lack of resources.. Will stop the trazodone and tramadols (2) Left femoral vein DVT Current Visit: Yes Status: Acute Plan: was diagnoised on june 01. Was being treated with Pardaxa. Unlikely he could aford it. Will keep him on xarelto in house. Qualifiers: Chronicity: chronic Qualified Code(s): I82.512 - Chronic embolism and thrombosis of left femoral vein Discharge Plan: Transfer Plan to discharge in: 48 Hours - Advance Directives Does patient have a Living Will: No Does patient have a Durable POA for Healthcare: No - Code Status/Comfort Care Code Status Assessed: Yes Code Status: Full Code Time Spent Managing Pts Care (In Minutes): 45
[2017-09-07] MEDS ORDERED: ONDANSETRON 4 MG/2 ML VIAL IV PRN (20:53)
[2017-09-07 21:16] VITALS: O2SAT 99
[2017-09-07] MEDS: NA CHLORIDE 0.9% 1,000 ML IV SCH (22:00)
[2017-09-08] MEDS: PANTOPRAZOLE 40MG TABLET PO SCH (04:43)
[2017-09-08 05:58] LABS: Absolute Lymphocytes (CBC) 2.2 K/uL (0.7-4.9); Absolute Monocytes 0.8 K/uL (0.1-1.3); Absolute Neutrophil 7.7 K/uL (1.8-8.0); Basophils % 0.5 % (0-1.3); Eosinophils % 1.7 % (0-4.4); Hematocrit 35.5 % (39.6-49.0); MCH 28.8 pg (27.0-35.0); MCV 88.8 fL (80-100); MPV 7.9 fL (7.6-11.3); Monocytes % 7.6 % (3.3-12.3)
[2017-09-08 06:04] LABS: Potassium 4.3 mmol/L (3.5-5.1)
[2017-09-08] MEDS: NA CHLORIDE 0.9% 1,000 ML IV SCH ×2 (06:47→17:35)
[2017-09-08] MEDS ORDERED: CALCIUM CARBONATE CHEW 500MG TAB PO PRN (08:39)
[2017-09-08] MEDS ORDERED: HOME MED 1 EA UNK (Cyanocobalamin (Vitamin B-12) [Vitamin B-12] 1,000 MCG) PO SCH (09:00)
[2017-09-08] MEDS: CYANOCOBALAMIN 1,000 MCG TAB PO SCH (09:36)
[2017-09-08] MEDS: ESCITALOPRAM 20 MG TAB PO SCH (09:36)
--- NOTE | 2017-09-08 10:21 | P.PN ---
Subjective Date of Service: 09/08/17 Chief Complaint: suicide attempt Subjective: No new changes (states he is stable) Review of Systems 10-point ROS is otherwise unremarkable General: Other (depressed mood) Physical Examination - Vital Signs Temperature: 97.5 F Blood Pressure: 113/86 Pulse: 73 Respirations: 14 Pulse Ox (%): 100 - Physical Exam General: Alert, In no apparent distress HEENT: Atraumatic, PERRLA, EOMI Neck: Supple, JVD not distended Respiratory: Clear to auscultation bilaterally, Normal air movement Cardiovascular: Regular rate/rhythm, Normal S1 S2 Gastrointestinal: Normal bowel sounds, No tenderness Musculoskeletal: No tenderness Integumentary: No rashes Neurological: Normal speech, Normal tone, Normal affect Lymphatics: No axilla or inguinal lymphadenopathy - Studies Laboratory Data (last 24 hrs) 09/07/17 14:32: PT 11.1, INR 0.94, APTT 22.1 L 09/07/17 14:32: WBC 11.0 H D, Hgb 11.3 L, Hct 35.2 L, Plt Count 211 09/07/17 14:32: Sodium 135 L, Potassium 3.7, BUN 9, Creatinine 1.70 H, Glucose 76, Total Bilirubin 0.3, AST 24, ALT 19, Alkaline Phosphatase 97 Assessment And Plan - Current Problems (Diagnosis) (1) Suicide attempt Onset Date: 09/08/17 Current Visit: Yes Status: Acute Plan: Will admit to the ICU. Will be evaluated by social work nurse. Possible transfer (2) Left femoral vein DVT Onset Date: 09/08/17 Current Visit: Yes Status: Acute Plan: was diagnoised on june 01. Was being treated with Pardaxa. Unlikely he could aford it. Will keep him on xarelto in house. Qualifiers: Chronicity: chronic Qualified Code(s): I82.512 - Chronic embolism and thrombosis of left femoral vein Discharge Plan: Home Plan to discharge in: 48 Hours - Code Status/Comfort Care Code Status Assessed: No Code Status: Full Code Physician Review: Patient Assessed, Agree with Above Assessment and Plan Critical Care: No Time Spent Managing PTS Care (In Minutes): 25
[2017-09-08] MEDS ORDERED: RIVAROXABAN 20 MG TABLET PO SCH (17:00)
[2017-09-09] MEDS: NA CHLORIDE 0.9% 1,000 ML IV SCH (03:05)
[2017-09-09 06:00] LABS: Absolute Lymphocytes (CBC) 2.5 K/uL (0.7-4.9); Absolute Monocytes 0.5 K/uL (0.1-1.3); Absolute Neutrophil 5.1 K/uL (1.8-8.0); Basophils % 0.7 % (0-1.3); Eosinophils % 1.9 % (0-4.4); Hematocrit 31.8 % (39.6-49.0); Lymphocytes % 29.8 % (15.3-44.8); MCH 28.6 pg (27.0-35.0); MCV 88.2 fL (80-100); MPV 7.9 fL (7.6-11.3); Monocytes % 6.1 % (3.3-12.3); RBC Red Blood Cell Count 3.61 M/uL (4.33-5.43)
[2017-09-09 06:22] LABS: Potassium 3.9 mmol/L (3.5-5.1)
[2017-09-09] MEDS: PANTOPRAZOLE 40MG TABLET PO SCH (06:29)
[2017-09-09] MEDS: CYANOCOBALAMIN 1,000 MCG TAB PO SCH (08:52)
[2017-09-09] MEDS: ESCITALOPRAM 20 MG TAB PO SCH (08:52)
--- NOTE | 2017-09-09 09:00 | P.PN ---
Subjective Date of Service: 09/09/17 Chief Complaint: suicide attempt Subjective: No new changes Review of Systems 10-point ROS is otherwise unremarkable Physical Examination - Vital Signs Temperature: 97.5 F Blood Pressure: 101/71 Pulse: 72 Respirations: 12 Pulse Ox (%): 98 - Physical Exam General: Alert, In no apparent distress HEENT: Atraumatic, PERRLA, EOMI Neck: Supple, JVD not distended Respiratory: Clear to auscultation bilaterally, Normal air movement Cardiovascular: Regular rate/rhythm, Normal S1 S2 Gastrointestinal: Normal bowel sounds, No tenderness Musculoskeletal: No tenderness Integumentary: No rashes Neurological: Normal speech, Normal tone, Normal affect Lymphatics: No axilla or inguinal lymphadenopathy Assessment & Plan - Problems (Diagnosis) (1) Suicide attempt Onset Date: 09/08/17 Current Visit: Yes Status: Acute Plan: Will admit to the ICU. Will be evaluated by social sciences lecturer. Possible transfer (2) Left femoral vein DVT Onset Date: 09/08/17 Current Visit: Yes Status: Acute Plan: was diagnoised on june 01. Was being treated with Pardaxa. Unlikely he could aford it. Will keep him on xarelto in house. Qualifiers: Chronicity: chronic Qualified Code(s): I82.512 - Chronic embolism and thrombosis of left femoral vein Physician Review: Patient Assessed, Agree with Above Assessment and Plan
[2017-09-09 13:34] VITALS: BP 116/78; TEMP 98.4
--- NOTE | 2017-09-09 15:11 | P.DS ---
Admission Date: 09/07/17 Discharge Date: 09/09/17 Disposition: ROUTINE DISCHARGE Discharge Condition: FAIR Reason for Admission: suicide attempt - Problems (1) Suicide attempt Onset Date: 09/08/17 Current Visit: Yes Status: Acute (2) Left femoral vein DVT Onset Date: 09/08/17 Current Visit: Yes Status: Acute Qualifiers: Chronicity: chronic Qualified Code(s): I82.512 - Chronic embolism and thrombosis of left femoral vein Brief History of Present Illness: Patient is a unfortunately homeless gentleman. He has been trying to get some place to live. However this has been difficult. His oldest child has cerebral palsy and recently tried commiting suicde. The patient took his trazodone and tramadol in an attempt at suicide. States that he felt overwhelmed. He does not have a home to go to. Or anyone to stay with. Hospital Course: patient was admitted to the icu for placement. His homelessness presented a problem. Consult socially responsible investment adviser who refered to inpatient psychiatry. Will transfer him to a facility today. He can follow up with me in a month. Please refer all his treatment notes from his psychiatric stay. Vital Signs/Physical Exam: Temp Pulse Resp BP Pulse Ox 98.4 F 71 20 116/78 98 09/09/17 11:00 09/09/17 11:00 09/09/17 11:00 09/09/17 11:00 09/09/17 09:00 General: Alert, In no apparent distress HEENT: Atraumatic, PERRLA, EOMI Neck: Supple, JVD not distended Respiratory: Clear to auscultation bilaterally, Normal air movement Cardiovascular: Regular rate/rhythm, Normal S1 S2 Gastrointestinal: Normal bowel sounds, No tenderness Musculoskeletal: No tenderness Integumentary: No rashes Neurological: Normal speech, Normal tone, Normal affect Lymphatics: No axilla or inguinal lymphadenopathy Laboratory Data at Discharge: WBC 8.3 K/uL (4.3-10.9) D 09/09/17 05:46 Hgb 10.3 g/dL (13.6-17.9) L 09/09/17 05:46 Hct 31.8 % (39.6-49.0) L 09/09/17 05:46 Plt Count 175 K/uL (152-406) 09/09/17 05:46 PT 11.1 SECONDS (9.5-12.5) 09/07/17 14:32 INR 0.94 09/07/17 14:32 APTT 22.1 SECONDS (24.3-36.9) L 09/07/17 14:32 Sodium 141 mmol/L (136-145) 09/09/17 05:46 Potassium 3.9 mmol/L (3.5-5.1) 09/09/17 05:46 BUN 7 mg/dL (7-18) 09/09/17 05:46 Creatinine 1.30 mg/dL (0.55-1.3) 09/09/17 05:46 Glucose 98 mg/dL (74-106) 09/09/17 05:46 Total Bilirubin 0.3 mg/dL (0.2-1.0) 09/07/17 14:32 AST 24 U/L (15-37) 09/07/17 14:32 ALT 19 U/L (12-78) 09/07/17 14:32 Alkaline Phosphatase 97 U/L (45-117) 09/07/17 14:32 Home Medications: Escitalopram [Lexapro*] 20 mg PO BID 06/17/17 Esomeprazole Mag Trihydrate [Nexium] 40 mg PO DAILY 06/17/17 Quetiapine [Seroquel*] 400 mg PO BID 06/17/17 Trazodone HCl [Desyrel] 100 mg PO BEDTIME 06/17/17 traMADol HCL [Ultram*] 50 mg PO Q8H PRN 06/17/17 Ferrous Sulfate [Iron] 325 mg PO BID #60 tablet 06/18/17 Diet: Regular Activity: Ad serg Followup: James Vargas MD [ACTIVE - CAN ADMIT] - (1 month please have records of hospitalization faxed to my office at [phone]) Time spent managing pt's care (in minutes): 60
== END 2017-09-09 12:30 | DRG 918 ==
LOC: ER 14:26 → ERHOLD 15:57 → 3RD-ICU 20:26
PROVIDERS: ADMIT Physician Assistant; ATTEND Internal Medicine
DX: T43.212A Poisoning by selective serotonin and norepinephrine reuptake inhibitors, intentional self-harm, initial encounter (principal); I82.512 Chronic embolism and thrombosis of left femoral vein; T40.4X2A Poisoning by other synthetic narcotics, intentional self-harm, initial encounter; R40.4 Transient alteration of awareness; Y92.830 Public park as the place of occurrence of the external cause; F31.9 Bipolar disorder, unspecified; Z88.0 Allergy status to penicillin; Z88.2 Allergy status to sulfonamides; Z59.0 Homelessness; Z88.6 Allergy status to analgesic agent
CPT/HCPCS: 36415; 51702; 80048; 80076; 80307; 80320; 80329; 81003; 82805; 85025; 85610; 85730; 93005; 99285; J2405; J7030

== ENCOUNTER 2018-05-01 05:36 | Emergency (ER) | payer OTHER ==
--- OUTSIDE RECORDS SUMMARY | 2018-05-01 05:39 | XMS REPORT | Clinical Summary ---
:1965 Author Organization [facility] Address [address] [place] [address] Care Team Providers Name Role Phone Asked, No Pcp Primary Care Provider Unavailable Allergies Active Allergy Reactions Severity Noted Date Comments Penicillin Hives 05/24/2017 Sulfa (Sulfonamide Other (See Comments) 05/24/2017 Tongue swelling Antibiotics) Medications Medication Sig Dispensed Refills Start Date End Date Status esomeprazole Take 40 mg by 0 Active (NexIUM) 40 MG mouth daily capsule before breakfast. apixaban (ELIQUIS) Take 5 mg by 0 Active 5 mg tablet mouth 2 (two) times a day. busPIRone (BUSPAR) Take 15 mg by 0 Active 15 MG tablet mouth 3 (three) times a day. escitalopram Take 20 mg by 0 Active (LEXAPRO) 20 MG mouth daily. tablet QUEtiapine Take 200 mg by 0 Active (SEROquel) 200 MG mouth every tablet morning. traZODone (DESYREL) Take 100 mg by 0 Active 100 MG tablet mouth nightly. lisinopril Take 5 mg by 0 Active (PRINIVIL,ZESTRIL) mouth daily. 5 mg tablet QUEtiapine Take 400 mg by 0 05/26/2017 Discontinued (SEROquel) 300 MG mouth 2 (two) tablet times a day. QUEtiapine Take 200 mg by 0 05/26/2017 Discontinued (SEROquel) 200 MG mouth nightly. tablet escitalopram Take 20 mg by 0 05/26/2017 Discontinued (LEXAPRO) 20 MG mouth 2 (two) tablet times a day. busPIRone (BUSPAR) Take 10 mg by 0 05/26/2017 Discontinued 10 MG tablet mouth 2 (two) times a day. zolpidem (AMBIEN) 5 Take 5 mg by 0 11/17/2017 Discontinued MG tablet mouth nightly as needed for sleep. ibuprofen Take 200 mg by 0 05/26/2017 Discontinued (ADVIL,MOTRIN) 200 mouth every 6 [...] tablet by mouth daily for 30 days. acetaminophen-codei Take 1-2 20 tablet 0 09/26/2017 10/01/2017 ne (TYLENOL WITH tablets by CODEINE #3) 300-30 mouth every 6 mg per tablet (six) hours as needed for moderate pain for up to 5 days. Active Problems Problem Noted Date Intentional drug overdose 05/25/2017 Encounters Date Type Specialty Care Team Description 11/19/2017 Intake Access N/A 11/17/2017 Emergency Emergency Medicine Molly Balderas MD Intentional drug overdose, initial encounter (Primary Dx) 10/01/2017 Intake Access N/A 09/29/2017 - Emergency Emergency Medicine Kristi Flores, Suicidal ideation (Primary Dx); 09/30/2017 MD HALE abdominal pain; Chronic kidney disease, unspecified CKD stage; [place] disease; Chronic liver disease; Dehydration; Metabolic acidosis; Left axis deviation; Biliary colic 09/26/2017 Emergency Emergency Medicine Bhavin Dinh MD Calculus of gallbladder without cholecystitis without obstruction (Primary Dx) 05/29/2017 Emergency Emergency Medicine 05/24/2017 - Emergency General Internal Nik Sandy Intentional drug overdose, initial encounter (Primary Dx); 05/26/2017 Shavonne Campbell MD Anemia of unknown etiology Martina Russell MD after 04/30/2017 Immunizations Name Dates Previously Given Next Due FLUCELVAX QUAD PF (0.5mL syringe) 05/26/2017 Family History Medical History Relation Name Comments No Known Problems Brother No Known Problems Cousin No Known Problems Daughter No Known Problems Father No Known Problems Maternal Grandfather No Known Problems Maternal Grandmother No Known Problems Mother No Known Problems Paternal Grandfather No Known Problems Paternal Grandmother No Known Problems Sister No Known Problems Son Asthma Neg Hx Diabetes Neg Hx Heart failure Neg Hx Hyperlipidemia Neg Hx Hypertension Neg Hx Migraines Neg Hx Osteoarthritis Neg Hx Rashes / Skin problems Neg Hx Rheum arthritis Neg Hx Seizures Neg Hx Stroke Neg Hx Thyroid disease Neg Hx Relation Name Status Comments Brother Cousin Daughter Father Maternal Grandfather Maternal Grandmother Mother Paternal Grandfather Paternal Grandmother Sister Son Social History Tobacco Use Types Packs/Day Years Used Date Current Every Day Smoker Alcohol Use Drinks/Week oz/Week Comments No Sex Assigned at Date Recorded Not on file Job Start Date Occupation Industry Not on file Not on file Not on file Travel History Travel Start Travel End No recent travel history available. Last Filed Vital Signs Vital Sign Reading Time Taken Blood Pressure 113/57 11/17/2017 10:43 AM CDT Pulse 84 11/17/2017 10:43 AM CDT Temperature 36.6 C (97.8 F) 11/17/2017 10:43 AM CDT Respiratory Rate 16 11/17/2017 10:43 AM CDT Oxygen Saturation 98% 11/17/2017 10:43 AM CDT Inhaled Oxygen Concentration - - Weight - - Height 162.6 cm (5' 4") 11/17/2017 2:09 AM CDT Body Mass Index - - Plan of Treatment Health Maintenance Due Date Last Done Comments INFLUENZA VACCINE 10/13/2017 05/26/2017 COLON CANCER SCREENING 10/28/2017 SHINGLES VACCINES (1 of 2) 10/28/2017 Procedures Procedure Name Priority Date/Time Associated Comments Diagnosis ECG 12-LEAD STAT 11/17/2017 2:13 Results for this AM CDT procedure are in the results section. ZZESTIMATED GFR STAT 11/17/2017 1:42 Results for this AM CDT procedure are in the results section. SALICYLATE LEVEL STAT 11/17/2017 1:42 Results for this AM CDT procedure are in the results section. ACETAMINOPHEN LEVEL STAT 11/17/2017 1:42 Results for this AM CDT procedure are in the results section. ALCOHOL LEVEL, BLOOD STAT 11/17/2017 1:42 Results for this AM CDT procedure are in the results section. T4, FREE STAT 11/17/2017 1:42 Results for this AM CDT procedure are in the results section. THYROID STIMULATING STAT 11/17/2017 1:42 Results for this HORMONE AM CDT procedure are in the results section. COMPREHENSIVE METABOLIC STAT 11/17/2017 1:42 Results for this PANEL AM CDT procedure are in the results section. URINALYSIS SCREEN AND STAT 11/17/2017 1:33 Results for this MICROSCOPY, WITH REFLEX AM CDT procedure are in TO CULTURE the results section. URINE DRUGS OF ABUSE STAT 11/17/2017 1:33 Results for this SCREEN AM CDT procedure are in the results section. HC COMPLETE BLD COUNT STAT 11/17/2017 1:33 Results for this W/AUTO DIFF AM CDT procedure are in the results section. GRAM STAIN STAT 11/17/2017 1:33 Results for this AM CDT procedure are in the results section. URINE CULTURE STAT 11/17/2017 1:33 Results for this AM CDT procedure are in the results section. US GALLBLADDER STAT 09/29/2017 3:20 Results for this PM CDT procedure are in the results section. ECG 12-LEAD STAT 09/29/2017 2:45 Results for this PM CDT procedure are in the results section. LIPASE LEVEL STAT 09/29/2017 2:45 Results for this PM CDT procedure are in the results section. ZZESTIMATED GFR STAT 09/29/2017 2:45 Results for this PM CDT procedure are in the results section. URINALYSIS SCREEN AND STAT 09/29/2017 2:45 Results for this MICROSCOPY, WITH REFLEX PM CDT procedure are in TO CULTURE the results section. URINE DRUGS OF ABUSE STAT 09/29/2017 2:45 Results for this SCREEN PM CDT procedure are in the results section. SALICYLATE LEVEL STAT 09/29/2017 2:45 Results for this PM CDT procedure are in the results section. ACETAMINOPHEN LEVEL STAT 09/29/2017 2:45 Results for this PM CDT procedure are in the results section. ALCOHOL LEVEL, BLOOD STAT 09/29/2017 2:45 Results for this PM CDT procedure are in the results section. T4, FREE STAT 09/29/2017 2:45 Results for this PM CDT procedure are in the results section. THYROID STIMULATING STAT 09/29/2017 2:45 Results for this HORMONE PM CDT procedure are in the results section. COMPREHENSIVE METABOLIC STAT 09/29/2017 2:45 Results for this PANEL PM CDT procedure are in the results section. HC COMPLETE BLD COUNT STAT 09/29/2017 2:45 Results for this W/AUTO DIFF PM CDT procedure are in the results section. URINE CULTURE STAT 09/29/2017 2:45 Results for this PM CDT procedure are in the results section. ECG ED PRELIMINARY Routine 09/29/2017 2:33 Results for this INTERPRETATION PM CDT procedure are in the results section. URINALYSIS SCREEN AND Routine 09/26/2017 3:50 Results for this MICROSCOPY, WITH REFLEX AM CDT procedure are in TO CULTURE the results section. URINE CULTURE Routine 09/26/2017 3:50 Results for this AM CDT procedure are in the results section. US GALLBLADDER STAT 09/26/2017 2:45 Results for this AM CDT procedure are in the results section. CT RENAL STONE PROTOCOL STAT 09/26/2017 1:46 Results for this AM CDT procedure are in the results section. ZZESTIMATED GFR STAT 09/26/2017 1:30 Results for this AM CDT procedure are in the results section. LIPASE LEVEL STAT 09/26/2017 1:30 Results for this AM CDT procedure are in the results section. COMPREHENSIVE METABOLIC STAT 09/26/2017 1:30 Results for this PANEL AM CDT procedure are in the results section. HC COMPLETE BLD COUNT STAT 09/26/2017 1:30 Results for this W/AUTO DIFF AM CDT procedure are in the results section. THYROID STIMULATING STAT 05/25/2017 7:25 Results for [...] CDT procedure are in the results section. ZZESTIMATED GFR STAT 05/25/2017 7:25 Results for this [...] CDT procedure are in the results section. ZZESTIMATED GFR Routine 05/25/2017 4:10 Results for this [...] CDT procedure are in the results section. ZZESTIMATED GFR STAT 05/24/2017 11:30 Results for this [...] procedure are in the results section. after 04/30/2017 Results ECG 12 lead (11/17/2017 2:13 AM CDT)Only the most recent of3 resultswithin the time period is included. Ventricular rate 93 [facility] Atrial rate 93 [facility] [place] interval 194 [facility] QRSD interval 76 [facility] QT interval 346 [facility] QTC interval 430 [facility] P axis 1 13 [facility] QRS axis 1 -52 [facility] T wave axis 27 [facility] EKG impression Normal sinus rhythm-Left axis [facility] MUSE deviation-Abnormal ECG-- Performing Organization Address City/[facility]ode Phone Number [facility] MUSE [address] [place] [address] Estimated GFR (11/17/2017 1:42 AM CDT)Only the most recent of6 resultswithin the time period is included. GFR Non Af Amer 38 (A) mL/min/1.73 m2 [facility] DEPARTMENT OF PATHOLOGY AND GENOMIC MEDICINE GFR Af Amer 46 (A) mL/min/1.73 m2 [facility] DEPARTMENT OF Comment: PATHOLOGY AND GENOMIC Chronic [...] Americans. Specimen Plasma specimen Performing Organization Address City/[facility]/Zipcode Phone Number [facility] DEPARTMENT OF PATHOLOGY AND [address] [place] [phone] [facility] Thyroid stimulating hormone (11/17/2017 1:42 AM CDT)Only the most recent of4 resultswithin the time period is included. TSH 1.20 0.27 - 4.20 uIU/mL [facility] DEPARTMENT OF PATHOLOGY AND GENOMIC MEDICINE Specimen Plasma specimen Performing Organization Address City/[facility] Centercode Phone Number [facility] DEPARTMENT OF PATHOLOGY AND [address] [place] [address] T4, free (11/17/2017 1:42 AM CDT)Only the most recent of2 resultswithin the time period is included. T4, free 1.1 0.9 - 1.7 ng/dL [facility] DEPARTMENT OF PATHOLOGY AND GENOMIC MEDICINE Specimen Plasma specimen Performing Organization Address City/[facility] Centercode Phone Number [facility] DEPARTMENT OF PATHOLOGY AND [address] [place] [address] Alcohol level, blood (11/17/2017 1:42 AM CDT)Only the most recent of3 resultswithin the time period is included. Alcohol None Detected mg/dL [facility] DEPARTMENT OF PATHOLOGY Comment: AND GENOMIC MEDICINE Normal None Detected Legal Intoxication in [place]80 mg/dL (0.08%) - Whole Blood Toxic Eourfhrkkvokt278 mg/dL (0.2%) Potentially Qvmkt435 - 500 mg/dL (0.35 - 0.5%) Alcohol percent None Detected % [facility] DEPARTMENT OF PATHOLOGY AND GENOMIC MEDICINE Specimen Plasma specimen Performing Organization Address [facility] Phone Number [facility] DEPARTMENT OF PATHOLOGY AND [address] [place] [address] Acetaminophen level (11/17/2017 1:42 AM CDT)Only the most recent of4 resultswithin the time period is included. Acetaminophen level <15.0 10.0 - 30.0 ug/mL [facility] DEPARTMENT OF Comment: PATHOLOGY AND GENOMIC Therapeutic 10-30 ug/mL MEDICINE Possible Toxicity 150-200 ug/mL Probable Toxicity >200 ug/mL Specimen Plasma specimen Performing Organization Address [facility] Cent[facility]ode Phone Number [facility] DEPARTMENT OF PATHOLOGY AND [address] [place] [address] Salicylate level (11/17/2017 1:42 AM CDT)Only the most recent of3 resultswithin the time period is included. Salicylate <3.0 3.0 - 30.0 mg/dL [facility] DEPARTMENT OF PATHOLOGY AND GENOMIC MEDICINE Specimen Plasma specimen Performing Organization Address City/[facility]/Zipcode Phone Number [facility] DEPARTMENT OF PATHOLOGY AND [address] [place] [address] [facility] Comprehensive metabolic panel (11/17/2017 1:42 AM CDT)Only the most recent of5 resultswithin the time period is included. Sodium 134 (L) 135 - 148 mEq/L [facility] DEPARTMENT OF PATHOLOGY AND GENOMIC MEDICINE Potassium 4.4 3.5 - 5.0 mEq/L [facility] DEPARTMENT OF PATHOLOGY AND GENOMIC MEDICINE Chloride 103 98 - 112 mEq/L [facility] DEPARTMENT OF PATHOLOGY AND GENOMIC MEDICINE CO2 16 (L) 24 - 31 mEq/L [facility] DEPARTMENT OF PATHOLOGY AND GENOMIC MEDICINE Anion gap 15@ANIO 7 - 15 mEq/L [facility] DEPARTMENT OF PATHOLOGY AND GENOMIC MEDICINE BUN 22 (H) 6 - 20 mg/dL [facility] DEPARTMENT OF PATHOLOGY AND GENOMIC MEDICINE Creatinine 1.9 (H) 0.7 - 1.2 mg/dL [facility] DEPARTMENT OF PATHOLOGY AND GENOMIC MEDICINE Glucose 116 (H) 65 - 99 mg/dL [facility] DEPARTMENT OF PATHOLOGY AND GENOMIC MEDICINE Calcium 8.8 8.3 - 10.2 mg/dL [facility] DEPARTMENT OF PATHOLOGY AND GENOMIC MEDICINE Protein 7.2 6.3 - 8.3 g/dL [facility] DEPARTMENT OF Comment: PATHOLOGY AND GENOMIC [place] 4.6-7.0 g/dL MEDICINE 1 week 4.4-7.6 g/dL 7 months-1year5.1-7.3 g/dL 1-2 years5.6-7.5 g/dL >3 years6.0-8.0 g/dL 18-150 6.3-8.3 g/dL Albumin 3.8 3.5 - 5.0 g/dL [facility] DEPARTMENT OF PATHOLOGY AND GENOMIC MEDICINE A/G ratio 1.1 0.7 - 3.8 [facility] DEPARTMENT OF PATHOLOGY AND GENOMIC MEDICINE Alkaline phosphatase 106 40 - 129 U/L [facility] DEPARTMENT OF PATHOLOGY AND GENOMIC MEDICINE AST 28 10 - 50 U/L [facility] DEPARTMENT OF PATHOLOGY AND GENOMIC MEDICINE ALT 16 5 - 50 U/L [facility] DEPARTMENT OF PATHOLOGY AND GENOMIC MEDICINE Total bilirubin <0.2 0.0 - 1.2 mg/dL [facility] DEPARTMENT OF PATHOLOGY AND GENOMIC MEDICINE Specimen Plasma specimen Performing Organization Address City/State/Zipcode Phone Number [facility] DEPARTMENT OF PATHOLOGY AND [address] [place] [address] [facility] Urinalysis screen and microscopy, with reflex to culture (11/17/2017 1:33 AM CDT)Only the most recent of4 resultswithin the time period is included. Specimen site Random void [facility] DEPARTMENT OF PATHOLOGY AND GENOMIC MEDICINE Color, UA Straw [facility] DEPARTMENT OF PATHOLOGY AND GENOMIC MEDICINE Appearance, UA Clear [facility] DEPARTMENT OF PATHOLOGY AND GENOMIC MEDICINE Specific gravity, UA 1.005 1.001 - 1.035 [facility] DEPARTMENT OF PATHOLOGY AND GENOMIC MEDICINE pH, UA 6.0 5.0 - 8.5 [facility] DEPARTMENT OF PATHOLOGY AND GENOMIC MEDICINE Protein, UA Negative Negative [facility] DEPARTMENT OF PATHOLOGY AND GENOMIC MEDICINE Glucose, UA Negative Negative [facility] DEPARTMENT OF PATHOLOGY AND GENOMIC MEDICINE Ketones, UA Negative Negative [facility] DEPARTMENT OF PATHOLOGY AND GENOMIC MEDICINE Bilirubin, UA Negative Negative [facility] DEPARTMENT OF PATHOLOGY AND GENOMIC MEDICINE Blood, UA Negative Negative [facility] DEPARTMENT OF PATHOLOGY AND GENOMIC MEDICINE Nitrite, UA Negative Negative [facility] DEPARTMENT OF PATHOLOGY AND GENOMIC MEDICINE Urobilinogen, UA <2.0 <2.0 [facility] DEPARTMENT OF PATHOLOGY AND GENOMIC MEDICINE Leukocyte esterase, UA Trace (A) Negative [facility] DEPARTMENT OF PATHOLOGY AND GENOMIC MEDICINE Epithelial cells, UA 1 /HPF [facility] DEPARTMENT OF PATHOLOGY AND GENOMIC MEDICINE WBC, UA 2 (H) 0 - 1 /HPF [facility] DEPARTMENT OF PATHOLOGY AND GENOMIC MEDICINE RBC, UA 1 0 - 5 /HPF [facility] DEPARTMENT OF PATHOLOGY AND GENOMIC MEDICINE Bacteria, UA Few None seen [facility] DEPARTMENT OF PATHOLOGY AND GENOMIC MEDICINE Yeast, UA None seen [facility] DEPARTMENT OF PATHOLOGY AND GENOMIC MEDICINE Yeast with pseudohyphae, UA None seen [facility] DEPARTMENT OF PATHOLOGY AND GENOMIC MEDICINE Specimen Urine Performing Organization Address City/State/Zipcode Phone Number [facility] DEPARTMENT OF PATHOLOGY AND [address] [place] [phone] [facility] Urine drugs of abuse screen (11/17/2017 1:33 AM CDT)Only the most recent of3 resultswithin the time period is included. Amphetamine screen, urine Negative [facility] DEPARTMENT OF PATHOLOGY AND GENOMIC MEDICINE Barbiturate screen, urine Negative [facility] DEPARTMENT OF PATHOLOGY AND GENOMIC MEDICINE Benzodiazepine screen, Negative [facility] DEPARTMENT OF urine PATHOLOGY AND GENOMIC MEDICINE Cannabinoid screen, urine Negative [facility] DEPARTMENT OF PATHOLOGY AND GENOMIC MEDICINE Cocaine screen, urine Negative [facility] DEPARTMENT OF PATHOLOGY AND GENOMIC MEDICINE Methadone metabolite Negative [facility] DEPARTMENT OF (EDDP), urine PATHOLOGY AND GENOMIC MEDICINE Opiates screen, urine Negative [facility] DEPARTMENT OF PATHOLOGY AND GENOMIC MEDICINE Oxycodone screen, urine Negative [facility] DEPARTMENT OF PATHOLOGY AND GENOMIC MEDICINE Phencyclidine screen, urine Negative [facility] DEPARTMENT OF PATHOLOGY AND GENOMIC MEDICINE Tricyclic screen, urine Negative [facility] DEPARTMENT OF Comment: PATHOLOGY AND GENOMIC Drug screen minimum concentration of detectability MEDICINE Yjwyphsebwbr6505 ng/mL Barbiturates 200 ng/mL Plodvdpzodnimcf835 ng/mL Wjemqxz580 ng/mL Dtkhmarvj302 ng/mL Rplugnx931 ng/mL Kffrotqbn372 ng/mL Phencyclidine 25 ng/mL Fmruzinlramq29 ng/mL Odoljbdjqb3372 ng/mL Negative test results indicates presumptive evidence of lack of clinically significant drug concentration in this urine specimen. Positive test results are presumptive evidence of clinically significant drug concentration in this urine specimen. Testing performed for medical purposes only. Specimen Urine Performing Organization Address City/[facility] Phone Number [facility] DEPARTMENT OF PATHOLOGY AND [address] [place] [address] GENOMIC MEDICINE Gram stain (11/17/2017 1:33 AM CDT) Gram stain result Rare WBC's [facility] DEPARTMENT OF PATHOLOGY No organisms seen AND GENOMIC MEDICINE Comment: Specimen Information Specimen Source: Urine Specimen Site: Random void Specimen Urine - Random void Performing Organization Address City/[facility] Phone Number [facility] DEPARTMENT OF PATHOLOGY AND [address] [place] [address] GENOMIC [facility] CBC with platelet and differential (11/17/2017 1:33 AM CDT)Only the most recent of6 resultswithin the time period is included. WBC 11.00 4.50 - 11.00 k/uL [facility] DEPARTMENT OF PATHOLOGY AND GENOMIC MEDICINE RBC 3.88 (L) 4.40 - 6.00 m/uL [facility] DEPARTMENT OF PATHOLOGY AND GENOMIC MEDICINE HGB 11.7 (L) 14.0 - 18.0 g/dL [facility] DEPARTMENT OF PATHOLOGY AND GENOMIC MEDICINE HCT 36.1 (L) 41.0 - 51.0 % [facility] DEPARTMENT OF PATHOLOGY AND GENOMIC MEDICINE MCV 93.0 82.0 - 100.0 fL [facility] DEPARTMENT OF PATHOLOGY AND GENOMIC MEDICINE MCH 30.2 27.0 - 34.0 pg [facility] DEPARTMENT OF PATHOLOGY AND GENOMIC MEDICINE MCHC 32.4 31.0 - 37.0 g/dL [facility] DEPARTMENT OF PATHOLOGY AND GENOMIC MEDICINE RDW - SD 48.8 37.0 - 55.0 fL [facility] DEPARTMENT OF PATHOLOGY AND GENOMIC MEDICINE MPV 9.5 8.8 - 13.2 fL [facility] DEPARTMENT OF PATHOLOGY AND GENOMIC MEDICINE Platelet count 240 150 - 400 k/uL [facility] DEPARTMENT OF PATHOLOGY AND GENOMIC MEDICINE Nucleated RBC 0.00 /100 WBC [facility] DEPARTMENT OF PATHOLOGY AND GENOMIC MEDICINE Neutrophils 50.8 39.0 - 69.0 % [facility] DEPARTMENT OF PATHOLOGY AND GENOMIC MEDICINE Lymphocytes 37.5 25.0 - 45.0 % [facility] DEPARTMENT OF PATHOLOGY AND GENOMIC MEDICINE Monocytes 6.3 0.0 - 10.0 % [facility] DEPARTMENT OF PATHOLOGY AND GENOMIC MEDICINE Eosinophils 4.4 0.0 - 5.0 % [facility] DEPARTMENT OF PATHOLOGY AND GENOMIC MEDICINE Basophils 0.4 0.0 - 1.0 % [facility] DEPARTMENT OF PATHOLOGY AND GENOMIC MEDICINE Immature granulocytes 0.6Comment: 0.0 - 1.0 % [facility] DEPARTMENT OF "Immature PATHOLOGY AND GENOMIC granulocytes" MEDICINE (promyelocytes, myelocytes, metamyelocytes) Specimen Blood Performing Organization Address City/[facility]ercode Phone Number [facility] [facility] DE[facility]OLOG[facility] AND [address] [place] [address] [facility] Urine culture (11/17/2017 1:33 AM CDT)Only the most recent of4 resultswithin the time period is included. Urine culture isolate No growth after 2 days. [facility] DEPARTMENT OF Comment: PATHOLOGY AND GENOMIC Specimen Information MEDICINE Specimen Source: Urine Specimen Site: Random void Specimen Urine - Random void Performing Organization Address City/[facility]ode Phone Number [facility] DEPARTMENT OF PATHOLOGY AND [address] [place] [address] [facility] US Gallbladder (09/29/2017 3:20 PM CDT)Only the most recent of2 resultswithin the time period is included. Narrative Performed At EXAMINATION:US GALLBLADDER RADIANT CLINICAL HISTORY:ruq pain COMPARISON:None. FINDINGS: Gallbladder: 1.5 cm cholelith noted within the neck of the gallbladder. However, there is no pericholecystic fluid or gallbladder wall thickening. CBD:5 mm , within normal limits. Portal vein: The portal vein demonstrates normal hepatopetal flow. The portal vein measures 1.1 cm, within normal limits. IMPRESSION: Cholelithiasis. [id number] Procedure Note Hm Interface, Radiology Results Incoming - 09/29/2017 3:50 PM CDT EXAMINATION: US GALLBLADDER CLINICAL HISTORY: ruq pain COMPARISON: None. FINDINGS: Gallbladder: 1.5 cm cholelith noted within the neck of the gallbladder. However , there is no pericholecystic fluid or gallbladder wall thickening. CBD: 5 mm , within normal limits. Portal vein: The portal vein demonstrates normal hepatopetal flow. The portal vein measures 1.1 cm, within normal limits. IMPRESSION: Cholelithiasis. [id number] Performing Organization Address City/[facility] Phone Number [facility] [address] [place] [phone] Lipase level (09/29/2017 2:45 PM CDT)Only the most recent of2 resultswithin the time period is included. Lipase 56 13 - 60 U/L [facility] DEPARTMENT OF PATHOLOGY AND GENOMIC MEDICINE Specimen Plasma specimen Performing Organization Address [facility] Phone Number [facility] DEPARTMENT OF PATHOLOGY AND [address] [place] [phone] GENOMIC MEDICINE ECG ED Preliminary Interpretation - NOT AN ORDER (09/29/2017 2:33 PM CDT) Narrative Performed At Kristi Flores MD 10/01/20179:51 AM ECG ED Preliminary Interpretation - Not an Order Performed by: KRISTI FLORES Authorized by: KRISTI FLORES ECG reviewed by ED Physician in the absence of a curator of photography and prints: yes Interpretation: Interpretation: abnormal Rate: ECG rate:70 ECG rate assessment: normal Rhythm: Rhythm: sinus rhythm QRS: QRS axis:Left QRS intervals:Normal ST segments: ST segments:Normal CT Renal Stone Protocol (09/26/2017 1:46 AM CDT) Narrative Performed At Examination:CT RENAL STONE PROTOCOL [facility] Clinical History: R flank painhematuria Comparison: None. Findings: CT scans are performed using radiation dose reduction techniques.Technical factors are evaluated and adjusted to ensure appropriate moderation of exposure.Automated dose management technology is applied to adjust radiation exposure while achieving a diagnostic quality image. CT scan of the abdomen and pelvis was performed without intravenous contrast. The liver, spleen, pancreas, gallbladder, and adrenal glands are unremarkable. The right kidney is within normal limits without hydronephrosis. There is a left renal cyst noted measuring 1.7 cm. The liver, spleen, pancreas, and adrenal glands are unremarkable. Gallstones are noted in the contracted gallbladder. No gallbladder wall thickening is seen. The kidneys are within normal limits without hydronephrosis or urinary calculus. Moderate to large amount of fecal material seen throughout the colon. No bowel thickening or fat stranding is seen. No bowel dilatation is seen. Nonspecific but nondilated fluid-filled small bowel are noted. No free air or fluid is seen. Urinary bladder is unremarkable. The visualized lung bases are clear. IMPRESSION: 1. Moderate to large amount fecal material throughout the colon but no evidence for bowel obstruction. 2. Cholelithiasis in a contracted gallbladder. 3. Nonspecific but nondilated fluid-filled loops of small bowel seen with adynamic ileus or gastroenteritis. [facility]-[id number] Procedure Note Hm Interface, Radiology Results Incoming - 09/26/2017 2:05 AM CDT Examination: CT RENAL STONE PROTOCOL Clinical History: R flank pain hematuria Comparison: None. Findings: CT scans are performed using radiation dose reduction techniques. Technical factors are evaluated and adjusted to ensure appropriate moderation of exposure. Automated dose management technology is applied to adjust radiation exposure while achieving a diagnostic quality image. CT scan of the abdomen and pelvis was performed without intravenous contrast. The liver, spleen, pancreas, gallbladder, and adrenal glands are unremarkable. The right kidney is within normal limits without hydronephrosis. There is a left renal cyst noted measuring 1.7 cm. The liver, spleen, pancreas , and adrenal glands are unremarkable. Gallstones are noted in the contracted gallbladder. No gallbladder wall thickening is seen. The kidneys are within normal limits without hydronephrosis or urinary calculus. Moderate to large amount of fecal material seen throughout the colon. No bowel thickening or fat stranding is seen. No bowel dilatation is seen. Nonspecific but nondilated fluid-filled small bowel are noted. No free air or fluid is seen. Urinary bladder is unremarkable. The visualized lung bases are clear. IMPRESSION: 1. Moderate to large amount fecal material throughout the colon but no evidence for bowel obstruction. 2. Cholelithiasis in a contracted gallbladder. 3. Nonspecific but nondilated fluid-filled loops of small bowel seen with adynamic ileus or gastroenteritis. [facility]-[id number] Performing Organization Address City/State/Zipcode Phone Number [facility] [address] [place] [address] Total iron binding capacity (05/25/2017 7:25 AM CDT) Iron level 36 (L) 59 - 158 ug/dL [facility] DEPARTMENT OF PATHOLOGY AND GENOMIC MEDICINE Iron binding capacity 331 200 - 400 ug/dL [facility] DEPARTMENT OF PATHOLOGY AND GENOMIC MEDICINE % Saturation 10.9 (L) 20.0 - 40.0 % [facility] DEPARTMENT OF PATHOLOGY AND GENOMIC MEDICINE Specimen Plasma specimen Performing Organization Address City/[facility] Cent[facility]ode Phone Number [facility] DEPARTMENT OF PATHOLOGY AND [address] [place] [address] Folate level (05/25/2017 7:25 AM CDT) Folate 3.3 (L) 4.8 - 24.2 ng/mL [facility] DEPARTMENT OF PATHOLOGY AND GENOMIC MEDICINE Specimen Serum Performing Organization Address City/[facility] Centercode Phone Number [facility] DEPARTMENT OF PATHOLOGY AND [address] [place] [address] Ferritin level (05/25/2017 7:25 AM CDT) Ferritin level 18 (L) 30 - 400 ng/mL [facility] DEPARTMENT OF PATHOLOGY AND GENOMIC MEDICINE Specimen Plasma specimen Performing Organization Address City/[facility] Phone Number [facility] DEPARTMENT OF PATHOLOGY AND [address] [place] [address] Vitamin B12 level (05/25/2017 7:25 AM CDT) Vitamin B12 250 211 - 946 pg/mL [facility] DEPARTMENT OF PATHOLOGY Comment: [facility] Significant overlap exists between normal and deficiency states. However, most patients with deficiencies will have Serum B12 <200 pg/mL. Specimen Serum Performing Organization Address [facility] Phone Number [facility] DEPARTMENT OF PATHOLOGY AND [address] [place] [address] Basic metabolic panel (05/25/2017 4:10 AM CDT) Sodium 140 135 - 148 mEq/L [facility] DEPARTMENT OF PATHOLOGY AND GENOMIC MEDICINE Potassium 4.2 3.5 - 5.0 mEq/L [facility] DEPARTMENT OF PATHOLOGY AND GENOMIC MEDICINE Chloride 105 98 - 112 mEq/L [facility] DEPARTMENT OF PATHOLOGY AND GENOMIC MEDICINE CO2 24 24 - 31 mEq/L [facility] DEPARTMENT OF PATHOLOGY AND GENOMIC MEDICINE Anion gap 11 7 - 15 mEq/L [facility] DEPARTMENT OF PATHOLOGY Comment: [facility] Starting from June , anion gap calculation no longer incorporates potassium. Please note the change. BUN 18 6 - 20 mg/dL [facility] DEPARTMENT OF PATHOLOGY AND GENOMIC MEDICINE Creatinine 2.0 (H) 0.7 - 1.2 mg/dL [facility] DEPARTMENT OF PATHOLOGY AND GENOMIC MEDICINE Glucose 79 65 - 99 mg/dL [facility] DEPARTMENT OF PATHOLOGY AND GENOMIC MEDICINE Calcium 8.9 8.3 - 10.2 mg/dL [facility] DEPARTMENT OF PATHOLOGY AND GENOMIC MEDICINE Specimen Plasma specimen Performing Organization Address City/State/Zipcode Phone Number [facility] DEPARTMENT OF PATHOLOGY AND [address] [place] [phone] [facility] Troponin (05/24/2017 11:30 PM CDT) Troponin <0.30 0.00 - 0.30 ng/mL [facility] DEPARTMENT OF PATHOLOGY Comment: AND [facility] 0.30 - 1.49 ng/mlMay indicate increased risk of acute coronary syndrome. >=1.5 ng/mlConsistent with acute myocardial infarction. The diagnostic value of a single normal or non-diagnostic result is questionable.Serial samples at 2-6 hour intervals are required to rule out acute myocardial injury. Specimen Plasma specimen Performing Organization Address [facility] Phone Number [facility] DEPARTMENT OF PATHOLOGY AND [address] [place] [phone] [facility] Partial thromboplastin time, activated (05/24/2017 11:30 PM CDT) PTT 23.5 23.0 - 36.0 sec [facility] DEPARTMENT OF PATHOLOGY Comment: AND [facility] PTT therapeutic range for unfractionated heparin is 61.0-112.0 seconds which corresponds to Anti-Xa 0.3-0.7 U/ml. Specimen Blood Performing Organization Address City/[facility] Centercode Phone Number [facility] DEPARTMENT OF PATHOLOGY AND [address] [place] [phone] [facility] Prothrombin time with INR (05/24/2017 11:30 PM CDT) Prothrombin time 13.0 12.0 - 15.0 sec [facility] DEPARTMENT OF PATHOLOGY AND GENOMIC MEDICINE INR 1.0 [facility] DEPARTMENT OF Comment: PATHOLOGY AND GENOMIC The International Normalized Ratio (INR) is a therapeutic MEDICINE monitoring tool for patients who are stable on oral anticoagulant therapy. An INR of 2.0-3.0 is suggested for deep vein thrombosis/pulmonary embolism. Specimen Blood Performing Organization Address City/State/[facility] Cent[facility]ode Phone Number [facility] DEPARTMENT OF PATHOLOGY AND [address] [place] [phone] [facility] after 04/30/2017 Insurance Payer Benefit Plan / Group Subscriber ID Type Phone Address MEDICARE MEDICARE PART A AND B xxxxxxxxxx Medicare [place], [place] Advance Directives Patient has advance care planning documents on file. For more information, please contact:Babatunde [id number] [place] [address]
--- OUTSIDE RECORDS SUMMARY | 2018-05-01 05:40 | XMS REPORT ---
:1965 [facility] Address [address] [place] [address] Care Team Providers Name Role Phone Unavailable Unavailable Unavailable Payers Payer Name Policy Type Policy Number Effective Date Expiration Date Problems This patient has no known problems. Allergies, Adverse Reactions, Alerts Allergy Name Allergy Status Severity Reaction(s) Onset Inactive Treating Comments Type Date Date Clinician Penicillins DA Active U 2017-10 00:00:0 0 Sulfa DA Active U 2017-10 (Sulfonamide -10 Antibiotics) 00:00:0 0 Medications This patient has no known medications. Results Test Description Test Time Test Comments Text Results Atomic Results Result Comments UA RFLX MICR CULT IF INDICATED 2018-04-20 01:11:00 Test Item Value Reference Range Comments UA COLOR (test code=COLU) Colorless Yellow UA APPEARANCE (test code=APPU) Clear Clear UA GLUCOSE DIPSTICK (test Negative Negative code=DGLUU) UA BILIRUBIN DIPSTICK (test Negative Negative code=BILU) UA KETONE DIPSTICK (test Negative mg/dL Negative code=KETU) UA SPECIFIC GRAVITY (test 1.002 <1.030 code=SGU) UA BLOOD DIPSTICK (test 1+ Negative code=GIANCARLO) UA PH DIPSTICK (test code=SANDRA) 6.0 5.0-8.0 UA PROTEIN DIPSTICK (test NEGATIVE mg/dL Negative code=PROU) UA UROBILINOGEN DIPSTICK (test Negative mg/dL Negative code=URO) UA NITRITE DIPSTICK (test Negative Negative code=DEVORA) UA LEUKOCYTE ESTERASE DIPSTICK TRACE Negative (test code=LEUU) UA WBC (test code=WBCUR) 0-3 /HPF <4-5 <10 WBC/HPF=PYURIA ABSENT URINE CULTURE NOT INDICATED UA RBC (test code=RBCU) 0-3 /HPF <4-5 UA SQUAMOUS CELLS (test 0-5 (RARE) /HPF 0-5 (RARE) code=SQU) SOURCE OF URINE: CLEAN CATCHless than 18 yrs old, neutropenic, or urological surgery? NOPrimary Indication for Culture: OtherOther Indication: FLANK PAINPROTHROMBIN [id number] 01:10:00 Test Item Value Reference Range Comments PROTHROMBIN TIME PATIENT 9.7 SECONDS 9.2-12.1 (test code=PTP) INTERNATIONAL NORMAL RATIO 0.9 The INR is to be used only for (test code=INR) monitoring ORAL ANTICOAGULANTTHERAPY. Indication INR Value1. Prophylaxis/treatment of: Venous Thrombosis, Pulmonary Embolism 2.0 - 3.02. Prevention of systemic embolism from: Tissue heart valves 2.0 - 3.0 Acute myocardial infarction (to present systemic embolism)* 2.0 - 3.0 Valvular heart disease 2.0 - 3.0 Atrial fibrillation 2.0 - 3.03. Mechanical prosthetic valves (high risk) 2.5 - 3.5 * If oral anticoagulant therapy is elected to preventrecurrent myocardial infarction, an INR of 2.5-3.5 isrecommended, consistent with Food and Drug Administrationrecommendations. THROMBOPLASTIN TIME [id number] 01:10:00 Test Item Value Reference Range Comments THROMBOPLASTIN TIME PARTIAL 24.5 SECONDS 23.4-37.0 Therapeutic Range for (test code=PTT) Heparin EFFECTIVE 09/21/12 Heparin IU/mL aPTT Seconds0.3 64.30.7 88.8 CBC W/AUTO [id number] 01:01:00 Test Item Value Reference Range Comments WHITE BLOOD CELL (test code=WBC) 13.3 x10 3/uL 5.0-12.0 RED BLOOD CELL (test code=RBC) 4.11 x10 6/uL 4.70-6.10 HEMOGLOBIN (test code=HGB) 11.5 g/dL 14.0-18.0 HEMATOCRIT (test code=HCT) 37.1 % 37.0-49.0 MEAN CELL VOLUME (test code=MCV) 90 fL 80-94 MEAN CELL HGB (test code=MCH) 28.0 pg 27-31 MEAN CELL HGB CONCENTRATION (test code=MCHC) 31.0 g/dL 33-37 RED CELL DISTRIBUTION WIDTH (test code=RDW) 14.8 % 11.5-15.5 PLATELET COUNT (test code=PLT) 198 x10 3/uL 130-400 MEAN PLATELET VOLUME (test code=MPV) 10.1 fL 9.4-16.4 NEUTROPHIL % (test code=NT%) 65.3 % 43-65 IMMATURE GRANULOCYTE % (test code=IG%) 0.6 % 0.0-2.0 LYMPHOCYTE % (test code=LY%) 24.1 % 20.5-45.5 MONOCYTE % (test code=MO%) 7.6 % 5.5-11.7 EOSINOPHIL % (test code=EO%) 2.2 % 0.9-2.9 BASOPHIL % (test code=BA%) 0.2 % 0.2-1.0 NUCLEATED RBC % (test code=NRBC%) 0.0 % 0-1.0 NEUTROPHIL # (test code=NT#) 8.66 x10 3/uL 2.2-4.8 IMMATURE GRANULOCYTE # (test code=IG#) 0.08 x10 3/uL 0-0.03 LYMPHOCYTE # (test code=LY#) 3.20 x10 3/uL 1.3-2.9 MONOCYTE # (test code=MO#) 1.01 x10 3/uL 0.3-0.8 EOSINOPHIL # (test code=EO#) 0.29 x10 3/uL 0.0-0.2 BASOPHIL # (test code=BA#) 0.03 x10 3/uL 0.0-0.1 - CT ABD PELVIS W/O [id number] 00:23:00 FAX: Josr Sanchez NP [phone] [place]: St: PRE Name: MANDY CAZARES : 1965 Age/S: 52/M [address] Unit: [id number] Loc: [place] [address] Phys: Josr Sanchez NP Acct: [id number] Dis Date: Status: PRE ER PHONE #: [phone] Exam Date: 04/20/2018 0005 FAX #: [phone] Reason: BILATERAL FLANK PAIN EXAMS: CPT CODE: [id number] CT ABD PELVIS W/O CONT 00927 EXAM: CT ABDOMEN AND PELVIS WITHOUT CONTRAST. INDICATION: BILATERAL FLANK PAIN COMPARISON: April 06, 2018 TECHNIQUE: Axial CT imaging of the abdomen and pelvis was obtained without administration of intravenous contrast. Coronal and sagittal reformatted images were submitted for review. IV contrast: None DLP: 708.98 mGy-cm FINDINGS: The heart size is normal. The lung basesare clear. No pericardial or pleural effusion is identified. The noncontrast appearance of the liver, spleen, pancreas, and adrenal glands is unremarkable. There has been prior cholecystectomy. No focal liver lesions are identified. No intrahepatic biliary duct dilatation. The kidneys are normal in size. There is a simple cyst in the leftkidney measuring 1.7 cm. No hydronephrosis or nephrolithiasis is identified. The urinary bladder is normal. The stomach, small bowel, and large bowel are normal in appearance. No bowel obstruction is identified. No lymphadenopathy is identified in the abdomenor pelvis. No free fluid or free air. The IVC is normal. The abdominal aorta is normal in course and caliber. There are atherosclerotic calcifications of the abdominal aorta. No acute osseous abnormality is identified. Healing left-sided rib fracture. IMPRESSION: No acute abnormality in the abdomen or pelvis. No nephrolithiasis or hydronephrosis. LOCATION: B2 This CT exam was performed according to our departmental dose optimization program, which includes automated exposure control, PAGE 1 Signed Report (CONTINUED) FAX: Josr Sanchez NP [phone] [place]: St: PRE Name: MANDY CAZARES [facility] : 1965 Age/S: 52/M [address] Unit: [id number] Loc: [place] [address] Phys: Josr Sanchez NP Acct: [id number] Dis Date : Status: PRE ER PHONE #: [phone] Exam Date: 04/20/2018 0005 FAX #:[phone] Reason: BILATERAL FLANK PAIN EXAMS: CPT CODE: [id number] CT ABD PELVIS W/O CONT 18969 <Continued> adjustment of the mA and or kV according to patient size and/or use of iterative reconstruction technique. at 0023 Reported and signed by: Jill Keating MD CC: Josr Sanchez NP Technologist: Yadira Villafana Trnscrd Dt/Tm: 04/20/2018 (0023) 16 Orig Print D/T: S : 04/20/2018 (0026 PAGE 2 Signed Report- CT ABD PELVIS [id number] 14:41:00 Patient Name: MANDY CAZARES Unit No: [id number] EXAMS: CPT CODE: [id number] CT ABD PELVIS W/CONT 38126 Site ID: [id number] CLINICAL HISTORY: Abdominal and back pain TECHNIQUE: Axial images of the abdomen and pelvis were obtained from diaphragm to the pubicsymphysis with intravenous contrast. CT dose lowering technique utilized, with adjustment of MA/kV according to patient size and automated exposure control. COMPARISON: Noncontrast CT abdomen and pelvis March 03, 2018 DISCUSSION: The lung bases are clear. The heart size is normal. The liver is normal in size and contour, without focal abnormality. The gallbladder is absent. No biliary ductal dilatation. The spleen, pancreas and adrenal glands are unremarkable. Kidneys are mildly atrophic, but enhance symmetrically. No nephrolithiasis or hydronephrosis demonstrated. Vascular structures are normal in caliber, with mild mid abdominal aortic atherosclerosis. Mild relative wall thickening and questionable faint fat stranding are present at the terminal ileum. Otherwise the small and large bowel loops appear normal. No ascites demonstrated. Prostate gland is normal in caliber, urinary bladder is poorly distended and not well evaluated. No acute fracture or acute bony finding demonstrated. Chronic healed left lateral rib fractures are present. No significant lumbar spondylosis. IMPRESSION: Questionable relative wall thickening and faint fat stranding at the terminal ileum, otherwise no significant finding. No nephrolithiasis or hydronephrosis. at 1441 Reported and signed by: Erich Russell M.D. CC: Sheron Couch MD Dictated Date/Time: 04/06/2018 (5931) Technologist: Devin Solomon CTDI: 11.97 DLP: 668.50 Trnscrpt : 04/06/2018 (6327) [email or web address] [facility] NAME: DEB[address] PHYS: Sheron Mills MD [place] [address] : 1965 AGE: 52 SEX: M LOC: [place] PHONE #: [phone] EXAM DATE: 04/06/2018 STATUS: REG ER FAX #: [phone] RAD # : D/C DT PAGE 1 Signed Report Patient Name: MANDY CAZARES Unit No: [id number] EXAMS: CPT CODE: [id number] CT ABD PELVIS W /CONT 83856 <Continued> Orig Print D/T: S: 04/06/2018 ( 9902) [facility] NAME: DEBORA[address] PHYS: Sheron Mills MD [place] [address] : 1965 AGE: 52 SEX: M LOC: [place] PHONE #: [phone] EXAM DATE: 04/06/2018 STATUS: REG ER FAX #: [phone] RAD #: D/C DT PAGE 2 Signed ReportURINALYSIS [id number] 14:23:00 Test Item Value Reference Range Comments UA COLOR (test code=COLU) COLORLESS DESCRIPT YELLOW UA APPEARANCE (test code=APPU) CLEAR DESCRIPT CLEAR UA GLUCOSE DIPSTICK (test code=DGLUU) NEGATIVE (0) mg/dL (NEG) 0 UA BILIRUBIN DIPSTICK (test code=BILU) NEGATIVE (0) mg/dL (NEG) 0 UA KETONE DIPSTICK (test code=KETU) 0 (NEG) mg/dL (NEG) 0 UA SPECIFIC GRAVITY (test code=SGU) 1.004 SG 1.001-1.035 UA BLOOD DIPSTICK (test code=GIANCARLO) NEGATIVE (0) mg/DL (NEG) 0 UA PH DIPSTICK (test code=SANDRA) 7.0 pH UNITS 4.6-8.0 UA PROTEIN DIPSTICK (test code=PROU) NEGATIVE (0) mg/dL <30 (1+) UA UROBILINIOGEN DIPSTICK (test NORMAL (0) mg/Dl <2.0 (1+) code=URO) UA NITRITE DIPSTICK (test code=DEVORA) NEGATIVE (0) SCREEN NEG UA LEUKOCYTE ESTERASE DIPSTICK (test NEGATIVE (0) Leuk/mcL (NEG) 0 code=LEUU) UA WBC (test code=WBCU) 0-3 #WBC/HPF 0-3 UA RBC (test code=RBCU) NONE #RBC/HPF 0-3 UA BACTERIA (test code=BACU) TRACE >0 /HPF NONE-FEW UA MUCUS (test code=MUCU) RARE /LPF NONE HEPATIC FUNCTION [id number] 14:06:00 Test Item Value Reference Range Comments TOTAL PROTEIN (test code=PROT) 6.7 G/DL 6.4-8.2 ALBUMIN (test code=ALB) 3.4 G/DL 3.4-5.0 BILIRUBIN TOTAL (test code=BILT) 0.14 MG/DL 0.00-1.00 BILIRUBIN DIRECT (test code=BILD) < 0.10 MG/DL 0.00-0.30 BILIRUBIN INDIRECT (test 0.14 MG/DL 0.2-1.3 code=BILIND) SGOT/AST (test code=AST) 19 Unit/L 15-37 SGPT/ALT (test code=ALT) 18 Unit/L 12-78 ALKALINE PHOSPHATASE TOTAL (test 127 Unit/L 45-117 code=ALKP) INDEX HEMOLYSIS (test 3 SMALL 25-50 MG Index/DL 1 NORMAL code=HEMINDEX) INDEX ICTERIC (test code=ICTINDEX) 1 NORMAL <2 MG Index/DL 1 NORMAL INDEX LIPEMIA (test code=LIPINDEX) 1 NORMAL <50 MG Index/DL 1 NORMAL [id number] 14:06:00 Test Item Value Reference Range Comments LIPASE (test code=LIP) 271 Unit/L 114-286 [id number] 14:06:00 Test Item Value Reference Range Comments TROPONIN-I (test < 0.015 NG/ML 0.000-0.045 An elevated troponin value alone is code=TROPI) not sufficient todiagnose a myocardial infarction. Rather, the patient'sclinical presentation (history, physical exam) and ECGshould be used in conjunction with troponin in thediagnostic evaluation of suspected myocardial infarction. Aserial sampling protocol is recommended to facilitate theidentification of temporal changes in troponin levelscharacteristic of [place]. CBC W/O [id number] 13:47:00 Test Item Value Reference Range Comments WHITE BLOOD CELL (test code=WBC) 8.7 K/mm3 4.1-12.1 RED BLOOD CELL (test code=RBC) 3.88 M/mm3 3.8-5.5 HEMOGLOBIN (test code=HGB) 11.3 G/DL 10.6-15.8 HEMATOCRIT (test code=HCT) 35.9 % 36.0-47.4 MEAN CELL VOLUME (test code=MCV) 92.5 fL 80.1-101.1 MEAN CELL HGB (test code=MCH) 29.1 pg 25.3-35.3 MEAN CELL HGB CONCETRATION (test code=MCHC) 31.5 G/DL 32.7-35.1 RED CELL DISTRIBUTION WIDTH (test code=RDW) 15.3 % 12.2-16.4 PLATELET COUNT (test code=PLT) 198 K/mm3 155-337 MEAN PLATELET VOLUME (test code=MPV) 10.0 fL 7.6-10.4 CHEMISTRY 7 [id number] 13:39:00 Test Item Value Reference Range Comments IONIZED CALCIUM (test code=CAIABG) mmol/L 1.13-1.32 ISTAT-TCO2 VENOUS (test code=TCO2VP) MMOL/L 21-32 ISTAT-SODIUM (test code=NAP) MMOL/L 135-148 ISTAT-POTASSIUM (test code=KP) MMOL/L 3.5-5.9 ISTAT-CHLORIDE (test code=CLP) MMOL/L 98-106 ISTAT-ANION GAP (test code=GAPP) MEQ/L 10-20 ISTAT-GLUCOSE (test code=GLUP) MG/DL 70-119 ISTAT-BUN (test code=BUNP) MG/DL 8-28 BEDSIDE CREATININE (test code=CREATBED) MG/DL 0.6-1.2 GLOMERULAR FILTRATION RATE POC (test code=GFRBED) 36 56-130 CHEMISTRY 7 [id number] 13:39:00 Test Item Value Reference Range Comments IONIZED CALCIUM (test code=CAIABG) 1.24 mmol/L 1.13-1.32 ISTAT-TCO2 VENOUS (test 25 MMOL/L 21-32 code=TCO2VP) ISTAT-SAMPLE SOURCE (test VENOUS SPECIMEN Descript Specimen code=SRCIST) ISTAT-SODIUM (test code=NAP) 138 MMOL/L 135-148 ISTAT-POTASSIUM (test code=KP) 5.4 MMOL/L 3.5-5.9 ISTAT-CHLORIDE (test code=CLP) 107 MMOL/L 98-106 ISTAT-ANION GAP (test code=GAPP) 13.0 MEQ/L 10-20 ISTAT-GLUCOSE (test code=GLUP) 76 MG/DL 70-119 ISTAT-BUN (test code=BUNP) 26 MG/DL 8-28 BEDSIDE CREATININE (test 2.0 MG/DL 0.6-1.2 code=CREATBED) GLOMERULAR FILTRATION RATE POC 36 56-130 (test code=GFRBED) - XR CHEST 1 [id number] 13:27:00 FAX: Sheron Garcia MD [phone] [place]: E St: PRE Patient Name: MANDY CAZARES Unit No: [id number] EXAMS: CPT CODE : [id number] XR CHEST 1 V 74044 - XR CHEST 1 V INDICATION:Abdominal pain, vomiting, headache LOCATION: T18 Partial inspiration. The lungs are clear. The cardiomediastinal silhouette is within normal limits. Old left rib fractures noted. IMPRESSION: Partial inspiration. No active disease. at 1327 Reported and signed by: Bhavin Valencia D.O. CC: Sheron Couch MD Dictated Date/Time: 04/06/2018 (4058)Technologist: Jcarlos Merlos Transcribed Date/Time: 04/06/2018 (3196) By: Lyle Orig Print D/T: S: 04/06/2018 (1150) LUIS M Chawla NAME: MANDY CAZARES [address] [place] [address] Blvd PHYS: TARIK. - Sheron Couch MD [place], [place] [address] : 1965 AGE: 52 SEX: M LOC: TitusMoisésDIANE PHONE #: [phone] EXAM DATE: 04/06/2018 STATUS: PRE ER FAX #: [phone] RAD NO: DC Dt: PAGE 1 Signed Report
--- OUTSIDE RECORDS SUMMARY | 2018-05-01 05:40 | XMS REPORT ---
[...] Start End Date Status Dosage Date Lisinopril [facility] 14062195257 5 MG Orally Once Active 1 tablet a day Nexium [facility] 63768998169 40 MG Orally Once Active 1 capsule a day Results No Known Results Summary Purpose eClinicalWorks Submission
--- OUTSIDE RECORDS SUMMARY | 2018-05-01 05:40 | XMS REPORT | Continuity of Care Document ---
:1965 Author Organization Interface Problems Problem Status Onset Classification Date Comments Source Date Reported (L) SIDE PAIN Active 01/01/20 [facility] 18 FLANK PAIN Active 12/13/19 [facility] 18 CP Active 11/30/19 [facility] 18 ABDOMINAL PAIN Active 11/27/19 [place] [id number] Acute embolism 06/01/19 08/30/2017 [facility] and thrombosis of 18 Medical right femoral Center vein Acute deep vein 05/24/19 08/30/2017 [facility] thrombosis of 18 Medical distal lower Center extremity LEG PAIN Active 05/24/[address] Center Acute embolism 08/30/2017 [facility] thrombosis of [facility] right popliteal Center vein Chronic kidney 08/30/2017 [facility] disease, Medical unspecified Center CKD (<span Active Problem 08/30/2017 [facility] ID="[id number]" Medical >Confirmed</span> Center ) Liver dysfunction Active Problem 08/30/2017 [facility] Active Problem 08/30/2017 [facility] ACUTE Active [facility] CHOLECYSTITIS CALCULUS OF Active [facility] GALLBLADDER W CHRONIC CHOLEC OTHER ASCITES Active [facility] OTHER SPECIFIED Active [facility] DISORDERS OF PERITONEUM ACUTE KIDNEY Active [facility] FAILURE, UNSPECIFIED UNSPECIFIED Active [facility] KIDNEY FAILURE Medications Medication Details Route Status Patient Ordering Order Source Instructions Provider Date {42 1 tab, PO, No Longer 05/25/19 [facility] (rivaroxaban BID-Meals, Active 18 Medical 15 MG Oral Take 15 mg Center Tablet tablets [Xarelto]) / twice daily 9 with food (rivaroxaban for 21 days. 20 MG Oral Beginning Tablet day 22,take [Xarelto]) } one 20 mg Pack [Xarelto tablet daily Kit] with food for the remainder of therapy., X 30 day, # 1 pkt, 0 Refill(s) Allergies, Adverse Reactions, Alerts Substance Category Reaction Severity Reaction Status Date Comments Source type Reported sulfa drugs Assertion Drug Active [facility] penicillin Assertion Drug Active [facility] Immunizations Immunization Date Given Site Status Last Updated Comments Source Results Order Name Results Value Reference Date Interpretation Comments Source Range Ext Lower Ext Lower Patient Name: MANDY CAZARES 01/03 Venous Venous /2017 [facility] Doppler Doppler : 1965; Age: 52 years y/o Male Bilat US Bilat US MR: [id number] Read by: Tyrone Rivas MD Dictated Date/time: 01/03/18 16:08 Electronically Signed by: Tyrone Rivas MD 01/03/18 16:14 FINAL REPORT Study: Ext Lower Venous Doppler Bilat US 01/03/2018 2:59 PM CDT Ordering Physician: Clinical Indication: Bilateral lower extremity Pain, Limb - R/o DVT; Comparison: None TECHNIQUE: Sonographic evaluation of the bilateral lower extremity veins was performed using high resolution B-mode imaging, along with pulse and color Doppler imaging. FINDINGS: Right lower extremity: The common femoral vein, femoral vein, popliteal vein and visualized posterior tibial/calf veins are patent. There is no echogenic debris to suggest deep venous thrombosis. The saphenofemoral junction is unremarkable. Left lower extremity: The common femoral vein, superficial femoral vein, popliteal vein and visualized posterior tibial/calf veins are patent. There is no echogenic debris to suggest deep venous thrombosis. The saphenofemoral junction is unremarkable. IMPRESSION: No DVT SL: [id number] Renal Renal Stone Clinical Indication: Left knee pain for 2 to 3 weeks with vomiting. 12/[address] [facility] Comparison: CT of the abdomen and pelvis performed 12/12/2017. Read by: Oleksandr Russell MD Dictated Date/time: 12/31/17 21:59 TECHNIQUE: Noncontrasted helical imaging was performed from the kidneys through the symphysis as a renal stone protocol. Multiplanar reformations are available. Electronically Signed by: Oleksandr Russell MD 12/31/17 22:13 FINAL REPORT IV CONTRAST: No IV contrast was administered. GI CONTRAST: No oral contrast was administered. CT imaging performed at this location utilizes radiation dose optimization techniques which include one or more of the following: -Automated exposure control -Adjustment of the mA and/or kV according to patient size -Use of iterative reconstruction technique CT Radiation Dose DLP 690.12 mGy-cm FINDINGS: LOWER CHEST: Dependent atelectasis is seen at the lung bases. LIVER: There are no gross masses or intrahepatic biliary ductal dilatation noted. BILIARY TREE: The common bile duct is normal in caliber without evidence of filling defects. GALLBLADDER: The gallbladder is surgically absent, surgical clips are seen within the gallbladder fossa. PANCREAS: The pancreas is unremarkable. The pancreatic duct is normal in caliber. SPLEEN: The spleen is normal in size and there are no parenchymal abnormalities. ADRENALS: The right adrenal gland is unremarkable. The left adrenal gland is unremarkable. KIDNEYS: There is a 1.4 cm cyst within the midpole left kidney. No radiopaque renal or ureteral stones are seen. There is no hydronephrosis or hydroureter. BOWEL: A moderate to large amount of fecal material is noted within the colon. A moderate amount of fecal material is noted within the colon. APPENDIX: The appendix is unremarkable. PELVIS: There is mild urinary bladder wall thickening. The prostate and seminal vesicles are unremarkable. PERITONEUM: There is no evidence for free intraperitoneal fluid or air. LYMPH NODES: There is no evidence of mesenteric, retroperitoneal, or inguinal lymphadenopathy. VASCULATURE: There are atherosclerotic calcifications of the nonaneurysmal abdominal aorta and branching vessels. MUSCULOSKELETAL: There are degenerative changes within the visualized spine. IMPRESSION: 1. Mild urinary bladder wall thickening, which may represents cystitis or underdistention. Consider correlation with urinalysis. 2. No evidence of obstructive uropathy. Left renal cyst. 3. Evidence of prior cholecystectomy. 4. Small hiatal hernia. SL: KPATEL-M Gallbladde Gallbladder Clinical Indication: - Post Noemi fluid accumulation. 12/12 - r scan [facility] Comparison: CT abdomen pelvis 12/12/2017 [facility] Read by: Shadi Austin MD Dictated Date/time: 12/13/17 14:14 Electronically Signed by: Shadi Austin MD 12/13/17 14:25 FINAL REPORT TECHNIQUE: Hepatobiliary scan is performed using 5 mCi of Tc-99m Choletec, which was administered intravenously. 60 minutes of static imaging was performed at 5 minute intervals in the frontal plane - starting 5 minutes after radiotracer administration. FINDINGS: Prompt hepatic uptake and excretion. There is progression of the radiotracer through a non dilated biliary tree and into small bowel. There is no perihepatic or gallbladder fossa radiotracer uptake to suggest bile leak. IMPRESSION: 1. No scintigraphic evidence of bile leak status post cholecystectomy SL: [id number] ED ED Clinical indication: - flank pain 12/12 - MH Abdomen/Pe Abdomen/Pelv /2017 - [facility] lv IV is IV Comparison: CT abdomen pelvis 11/27/[address] only CT Read by: Madison Reyes MD Dictated Date/time: 12/12/17 18:00 TECHNIQUE: Volumetric CT acquisition of the abdomen and pelvis after the intravenous administration contrast. Axial, coronal and sagittal reconstructions. Electronically Signed by: Madison Reyes MD 12/12/17 18:06 FINAL REPORT IV contrast: 100 mL Omnipaque 300 Enteric contrast: None. CT imaging performed at this location utilizes radiation dose optimization techniques which include one or more of the following: -Automated exposure control -Adjustment of the mA and/or kV according to patient size -Use of iterative reconstruction technique CT Radiation Dose DLP 1020.47 mGy-cm FINDINGS: LOWER THORAX: Subsegmental atelectasis is present at the lung bases. LIVER: The liver is unremarkable. BILIARY TREE: No intra- or extrahepatic biliary ductal dilation. GALLBLADDER: The patient is status post cholecystectomy. A 2.8 x 3 x 3.7 cm fluid collection is present in the gallbladder fossa. A small focus of internal air is present within the collection. PANCREAS: The pancreas is unremarkable. SPLEEN: Normal. ADRENALS: Normal. KIDNEYS AND URETERS: The bilateral kidneys are atrophic. A 1.3 cm left renal cyst is present. Additional too small to characterize bilateral renal hypodensities are present, possibly small cysts. GASTROINTESTINAL TRACT: A small hiatal hernia is present. The small bowel is normal in caliber. A large colonic stool burden is present. APPENDIX: The appendix is not definitively visualized. PELVIS: The urinary bladder is unremarkable. No CT abnormality of the reproductive organs. PERITONEUM AND RETROPERITONEUM: Gallbladder fossa fluid collection, as described above containing a tiny locule of air. LYMPH NODES: No abdominal or pelvic lymphadenopathy. VASCULATURE: Moderate aortoiliac atherosclerosis is present. The portal vein is patent. The IVC is unremarkable. BONES: No acute osseous abnormality. SOFT TISSUES: Surgical staple is present at the umbilicus. IMPRESSION: 1. Post surgical change of cholecystectomy with a 2.8 x 3 x 3.7 cm fluid collection in the cholecystectomy bed containing a small locule of air. Differential considerations include hematoma or biloma. Superimposed infection cannot be excluded. 2. Atrophic bilateral kidneys with left renal cyst and too small to characterize renal hypodensities. 3. Small hiatal hernia. SL: NENA Cholangiog Cholangiogra Clinical Indication: - Gallstones 11/30 - vickie m operative /2017 - [facility] operative DX Comparison: CT and ultrasound performed 11/27/2017 DX Read by: Cynthia Land DO Dictated Date/time: 11/30/17 16:58 Electronically Signed by: Cynthia Land DO 11/30/17 17:00 FINAL REPORT FINDINGS: 2 spot fluoroscopic images are submitted from intraoperative cholangiogram. There is contrast injection into the cystic duct remnant, status post cholecystectomy. There are no filling defects noted. There are no leaks noted. The visualized common hepatic duct and intrahepatic b ile ducts are unremarkable. There is progression of contrast material into the duodenum. 29.1 seconds of fluoroscopic time was used. Recommend correlation with operative report findings for complete assessment. IMPRESSION: Fluoroscopic images from cholangiogram, as noted above. SL: DANNY Retroperit Retroperiton Clinical Indication: Renal insufficiency - EVAL FOR MEDICO RENAL DISEASE 11/30 - freeman eal Complete /2017 - [facility] Complete US Comparison: None US Read by: Lori Ortiz MD Dictated Date/time: 11/30/17 23:50 TECHNIQUE: Electronically Signed by: Lori Ortiz MD 11/30/17 23:51 FINAL REPORT Multiple longitudinal and transverse real time sonographic images of the kidneys and urinary bladder are obtained. FINDINGS: KIDNEY: The right kidney measures 8.6 x 4.5 x 4.5 cm. The left kidney is not well visualized due to overlying bowel gas. The right kidney is normal in size, shape, contour, and position. The cortex is normal in thickness and the corticomedullary differentiation is maintained. There is no hydronephrosis, nephrolithiasis, or abnormal perinephric collections. There is increased parenchymal echogenicity of the right kidney. BLADDER: Scanning through the pelvis reveals the bladder to be partially distended with anechoic urine. AORTA AND IVC: The visualized portions appear unremarkable. The common iliac arteries are not well visualized due to overlying bowel gas. ASCITES: No ascites noted. IMPRESSION: 1. Nonvisualized left kidney due to overlying bowel gas. 2. Increased parenchymal echogenicity of the right kidney suggesting medical renal disease. SL: [id number] Lung Lung EXAM: VQ scan 11/29 - ventilatio ventilation/ /2017 - [facility] n/perfusio perfusion HISTORY: Chest pain, history of pulmonary embolism n scan NM scan NM COMPARISON: Chest radiograph same day Read by: Marquis Pinzon MD Dictated Date/time: 11/29/17 15:16 TECHNIQUE: 10 mCi xenon-133 gas inhaled for the ventilation study and 5 mCi technetium 99m MAA given IV left antecubital region for the perfusion study. Electronically Signed by: Marquis Pinzon MD 11/29/17 15:19 FINAL REPORT FINDINGS: The ventilation images demonstrate normal inhalation with air trapping throughout both lungs. The perfusion images demonstrate fairly homogeneous tracer distribution. No significant peripheral segmental perfusion defect is seen. IMPRESSION: 1. Low probability for pulmonary embolism. 2. Air trapping in both lungs may reflect COPD. SL: [id number] Chest Chest 1view Clinical Indication: - chest pain 11/29 1view DX DX [facility] Comparison: 05/23/2017 Read by: Cynthia Land DO Dictated Date/time: 11/29/17 12:23 FINDINGS: Electronically Signed by: Cynthia Land DO 11/29/17 12:24 FINAL REPORT The frontal chest radiograph shows normal lung volumes without interstitial or airspace opacities, pleural effusions or pneumothorax. The cardiomediastinal contours are normal. The trachea is midline. There are no clinically significant osseous abnormalities noted. IMPRESSION: No chest radiographic evidence of acute cardiopulmonary disease. SL: [id number] ED ED Clinical Indication: - R sided abd pain, elevated wbc, possible cholecystitis clinically 11/27 Abdomen/Pe Abdomen/Pelv /2017 - [facility] lvis IV is IV Comparison: None contrast contrast only CT only CT Read by: Avery Mckeon MD Dictated Date/time: 11/27/17 08:48 TECHNIQUE: Helical imaging was performed after injection of IV contrast, from the diaphragm through the symphysis with multiplanar reformations obtained. CT imaging was performed with exposure control parameters to reduce radiation dose. Electronically Signed by: Avery Mckeon MD 11/27/17 08:58 FINAL REPORT IV CONTRAST: 100 mL of Visipaque DLP: 981.50 mGy-cm FINDINGS: Trace subsegmental atelectasis versus infiltrates at the dependent portion of the right lower lobe. No free intraperitoneal air or fluid. The gallbladder appears mildly distended, measuring up to approximately 8.5 cm in maximal diameter. No overt gallbladder wall thickening or pericholecystic fluid id entified on this examination. Radiopaque gallstone present dependently within the gallbladder lumen. The liver, spleen, pancreas, and adrenal glands are within normal limits for appearance. The kidneys enhance symmetrically. Mild to moderate atrophic changes of the bilateral kidneys are present. Multiple subcentimeter low-attenuation lesions are identified throughout the bilateral kidneys that are too small to definitively characterize. Lobulated 1.4 cm cyst present at the mid left kidney posteriorly. No hydronephrosis or hydroureter. The bladder is mild to moderately distended with flui d without focal wall thickening. Unremarkable prostate gland. Tiny, fat- containing left inguinal hernia. No dilated loops of bowel. No evidence of bowel obstruction. Nonvisualization of the appendix. Small, sliding hiatal hernia. Mild colonic stool burden. The abdominal aorta is normal in course without focal aneurysmal dilation. Mild to moderate atherosclerotic calcifications present at the abdominal aorta. The lumbosacral spine appears intact. IMPRESSION: 1. Mild gallbladder distention, measuring up to 8.5 cm in diameter with a gallstone dependently in the gallbladder lumen no overt gallbladder wall thickening or pericholecystic fluid identified on this examination. If there is persistent clinical concern for acute cholecystitis, may consider clinical history medicine HIDA scan for further evaluation. 2. Mild to moderate atrophic changes of the bilateral kidneys, suggesting sequela of chronic renal disease. 3. No bowel obstruction. Nonvisualization of the appendix. 4. Small, sliding hiatal hernia. 5. Trace subsegmental atelectasis versus scarring present at the dependent aspect of the right lower lobe. SL: [id number] Abdomen Abdomen RUQ Abdominal Ultrasound Limited 11/27 - RUQ US US /2017 - HISTORY: - ruq pain. Nausea and vomiting. Read by: Halley Suarez MD Dictated Date/time: 11/27/17 06:47 Electronically Signed by: Halley Suarez MD 11/27/17 06:51 FINAL REPORT COMPARISON:None available. TECHNIQUE: Grayscale and limited color transverse and longitudinal transabdominal sonographic images were obtained. FINDINGS: Evaluation is limited due to overlying bowel gas. Liver: The liver measures 18 cm, borderline prominent in size. Limited evaluation of the liver parenchyma due to overlying bowel gas. The main portal vein demonstrates hepatopedal flow and is within normal limits for caliber. No focal liver lesion is identified. Gallbladder and biliary tree: Echogenic shadowing stones are identified. Gallbladder sludge is present. No evidence of gallbladder wall thickening. No pericholecystic fluid is identified. No positive sonographic Vences sign was reported. The visualized CBD measures 4 mm, within normal caliber. No intrahepatic biliary dilatation is suggested. Pancreas: The pancreas is obscured by overlying bowel gas limiting evaluation. Right kidney: The right kidney measures 11.5 x 6.8 x 5.2 cm. The right kidney demonstrates no hydronephrosis. A couple subcentimeter benign-appearing right renal cysts are noted. Other: No evidence of ascites on the provided images. The abdominal aorta is incompletely visualized due to overlying bowel gas, limiting evaluation. Its visualized segments are normal in caliber. The visualized IVC is unremarkable. IMPRESSION: Limited exam due to overlying bowel gas. Cholelithiasis and gallbladder sludge without evidence to suggest acute cholecystitis. The visualized common bile duct is within normal caliber. Limited evaluation of the pancreas. SL: [id number] URINE AND UA Hyal Cast 0-2 0 - 2 05/[address] (05/23/17 11:57 PM) [place] URINE AND UA RBC None Seen 0 - 2 05/[address] (05/23/17 11:57 PM) [place] URINE AND UA WBC None Seen None Seen 05/[address] (05/23/17 11:57 PM) [place] URINE AND UA Nitrite Negative Negative 05/[address] (05/23/17 11:57 PM) [place] URINE AND UA Sq Epi Few /LPF Few /LPF 05/[address] URINE AND UA Leuk Est Negative Negative 05/[address] (05/23/17 11:57 PM) [place] URINE AND UA Spec Grav <=1.005 <=1.030 05/24 [facility]
*NA*< Medical br/>( 18 11:57 PM) URINE AND UA Protein Negative Negative 05/[address] (05/23/17 11:57 PM) [place] URINE AND UA Turbidity Clear Clear 05/24 [facility]2017 [facility] (05/23/17 11:57 PM) [place] URINE AND UA Color Yellow Yellow 05/[address] *NA* Center (05/23/17 11:57 PM) URINE AND UA pH 6.5 5.0 - 8.0 05/[address] URINE AND UA 0.2 EU/dL 0.1 - 1.0 05/24 [facility] Urobilinogen /[address] [place] [address] URINE AND UA Blood Negative Negative 05/[address] (05/23/17 11:57 PM) [place] URINE AND UA Glucose Negative Negative 05/[address] (05/23/17 11:57 PM) [place] URINE AND UA Bili Negative Negative 05/[address] *NA* [place] (05/23/17 11:57 PM) URINE AND UA Ketones Negative Negative 05/24 [facility] [address] [place] [address] *NA* [place] (05/23/17 11:57 PM) CARDIAC Troponin-I null 0.00 - 05/24 [facility] ENZYMES 0.40 [facility] CHEM PANEL Lactic Acid 0.8 mMol/L 0.5 - 2.2 05/24 [facility] Lvl [address] [place] [address] CHEM PANEL Globulin 3.1 g/dL 2.7 - 4.2 05/[address] CHEM PANEL A/G Ratio 0.9 0.7 - 1.6 05/[address] CHEM PANEL Alk Phos 103 unit/L 39 - 136 05/[address] CHEM PANEL AST 21 unit/L 0 - 37 05/[address] CHEM PANEL Bili Direct 0.1 mg/dL 0.0 - 0.3 05/[address] CHEM PANEL Bili Total 0.1 mg/dL 0.2 - 1.3 05/[address] CHEM PANEL Albumin Lvl 2.9 g/dL 3.5 - 5.0 05/[address] CHEM PANEL ALT 23 unit/L 0 - 65 05/[address] CHEM PANEL Total 6.0 g/dL 6.4 - 8.4 05/24 [facility] Protein [address] CHEM PANEL Bili 0.0 mg/dL 0.0 - 1.0 05/24 [facility] Indirect [facility] CHEM PANEL eGFR 43 05/24 Result Comment: The eGFR is calculated using the CKD-EPI formula. In most young, healthy individuals the eGFR will be >90 mL/ min/1.73m2. The eGFR declines with age. An eGFR of 60-89 may be normal in [facility] mL/min/1.7 some populations, particularly the elderly, for whom the CKD-EPI formula has not been extensively validated. Use of the eGFR is not recommended in the following populations: [address] Individuals with unstable creatinine concentrations, including patients and those with serious co-morbid conditions. Patients with extremes in muscle mass or diet. The data above are obtained from the National Kidney Disease Education Program (NKDEP) which additionally recommends that when the eGFR is used in patients with extremes of body mass index for purposes of drug dosing, the eGFR should be multiplied by the estimated BMI. CHEM PANEL Sodium Lvl 138 meq/L 135 - 145 05/[address] CHEM PANEL Chloride Lvl 108 meq/L 95 - 109 05/[address] CHEM PANEL Potassium 4.5 meq/L 3.5 - 5.1 05/24 [facility] CHEM PANEL Creatinine 1.82 mg/dL 0.50 - 05/24 [facility] Lvl 1.40 [facility] CHEM PANEL Calcium Lvl 8.1 mg/dL 8.5 - 10.5 05/[address] CHEM PANEL CO2 23 meq/L 24 - 32 05/[address] CHEM PANEL BUN 16 mg/dL 7 - 22 05/[address] CHEM PANEL Glucose Lvl 94 mg/dL 70 - 99 05/[address] CHEM PANEL AGAP 11.5 meq/L 10.0 - 05/24 [facility] 20.0 [facility] HEMATOLOGY Basophils 1.1 % 0.0 - 1.0 05/[address] HEMATOLOGY Eosinophils 2.8 % 0.0 - 4.0 05/[address] HEMATOLOGY Segs 50.8 % 45.0 - 05/24 [facility] 75.0 [facility] HEMATOLOGY Basophils # 0.1 K/CMM 0.0 - 0.2 05/24 /2017 [facility] HEMATOLOGY Eosinophils 0.3 K/CMM 0.0 - 0.5 05/24 [facility] # /2017 [facility] HEMATOLOGY Monocytes # 0.6 K/CMM 0.0 - 0.8 05/24 [place] /2017 [facility] HEMATOLOGY Lymphocytes 3.5 K/CMM 1.0 - 5.5 05/24 [facility] # /2017 [facility] HEMATOLOGY Segs-Bands # 4.6 K/CMM 1.5 - 8.1 05/24 /2017 [facility] HEMATOLOGY Monocytes 7.0 % 2.0 - 12.0 05/24 /2017 [facility] HEMATOLOGY Lymphocytes 38.3 % 20.0 - 05/24 [place] 40.0 [facility] HEMATOLOGY Hgb 8.5 g/dL 14.0 - 05/24 [place] 18.0 [facility] HEMATOLOGY Hct 26.0 % 42.0 - 05/24 [place] 54.0 /2017 [facility] HEMATOLOGY RBC 3.28 M/CMM 4.70 - 05/24 [place] 6.10 [facility] HEMATOLOGY WBC 9.0 K/CMM 3.7 - 10.4 05/24 /2017 [facility] HEMATOLOGY MCHC 32.7 g/dL 32.0 - 05/24 [place] 36.0 /2018 [facility] HEMATOLOGY MCV 79.4 fL 80.0 - 05/24 [place] 94.0 /2018 [facility] HEMATOLOGY MCH 26.0 pg 27.0 - 05/24 [place] 31.0 2018 [facility] HEMATOLOGY MPV 7.3 fL 7.4 - 10.4 05/24 /2017 [facility] HEMATOLOGY Platelet 207 K/CMM 133 - 450 05/24 /2017 [facility] HEMATOLOGY RDW 20.1 % 11.5 - 03 [place] 14.5 /2018 [facility] HEMATOLOGY INR 0.89 0.85 - 05/24 [place] 1.17 [facility] HEMATOLOGY PT 12.0 s 12.0 - 05/24 [facility] 14.7 2018 [facility] HEMATOLOGY PTT 24.1 s 22.9 - /12 [place] 35.8 /2018 [facility] Ext Lower Ext Lower EXAM: US RIGHT LOWER EXTREMITY VENOUS DOPPLER 05/23 - [facility] [facility] /2017 - Medical Doppler Doppler This report was dictated by a Care Asst/ Fellow. I have personally reviewed the images as Center Unilat US Unilat US well as the Resident's interpretation and agree with the findings. DATE: 05/23/2017 9:07 PM CDT Read by: Keya Santiago MD Resident: Keya Santiago MD Dictated Date/time: 05/23/17 23:01 Electronically Signed by: Esteban Mcallister MD 05/24/17 07:47 FINAL REPORT INDICATION: - RLE pain and swelling ADDITIONAL INFORMATION: None. COMPARISON: None. TECHNIQUE: Multiplanar grayscale, color Doppler and spectral Doppler ultrasound of the lower extremity veins. DISCUSSION: Thigh Veins: Common Femoral: Patent. Femoral (SFV): Patent. Popliteal: Patent. Proximal Greater Saphenous: Patent. Deep Femoral Veins: Patent. IMPRESSION: Occlusive and extensive deep venous thrombosis involving the right superficial femoral vein proximally to the popliteal vein. Findings were discussed with Dr. Campos 05/23/2017 at 2302 hours by telephone. [place] SECTION: Body Chest Chest 1view EXAM: XR CHEST 1 VIEW 05/23 - [place] [id number] DX - [facility] This report was dictated by a Care Asst/Fellow. I have personally reviewed the images as Center well as the Resident's interpretation and agree with the findings. DATE: 05/23/2017 at 2137 hours Read by: Killian Cristobal MD Resident: Killian Cristobal MD Dictated Date/time: 05/23/17 21:41 Electronically Signed by: Monique Cabrera MD 05/23/17 22:34 FINAL REPORT INDICATION: Right lower extremity pain and swelling COMPARISON: None. TECHNIQUE: AP chest FINDINGS: Lines, tubes and hardware: None. Lungs and pleura: No pulmonary or pleural based abnormality is identified. Pulmonary vascularity is normal. Heart and mediastinum: The heart size is normal for technique. The mediastinal contours are normal. Bones: No acute bony abnormality is identified. IMPRESSION: No acute cardiopulmonary abnormality. Vital Signs Vital Sign Value Date Comments Source Respitory Rate 18 05/24/2017 [facility] Systolic (mm Hg) 102 05/24/2017 [facility] Diastolic (mm Hg) 54 05/24/2017 [facility] Temperature Oral (F) 98.8 F 05/24/2017 [facility] Respitory Rate 16 05/24/2017 [facility] Temperature Oral (F) 98.5 F 05/24/2017 [facility] Systolic (mm Hg) 98 05/24/2017 [facility] Diastolic (mm Hg) 59 05/24/2017 [facility] Respitory Rate 16 05/24/2017 [facility] Systolic (mm Hg) 102 05/24/2017 [facility] Diastolic (mm Hg) 55 05/24/2017 [facility] Heart Rate 90 05/24/2017 [facility] Temperature Oral (F) 98.2 F 05/24/2017 [facility] Encounters Location Location Encounter Encounter Reason Attending ADM DC Status Source Details Type Number For Provider Date Date [facility] [id number] Magdalena 05/24 05/24 [facility] Adonay Loyam /2017 [facility] Procedures Procedure Code Date Perfomer Comments Source
--- OUTSIDE RECORDS SUMMARY | 2018-05-01 05:40 | XMS REPORT | Summary of Care ---
:1965 Author Organization [facility] Address [address] [place] [id number]- Encounter HQ Tony_teri(FIN) [id number] Date(s): 05/23/17 - 05/24/[address] Professional Services provided by [facility] [place] [address]- Encounter Diagnosis Acute deep vein thrombosis (DVT) of distal lower extremity (Discharge Diagnosis ) - 05/23/17 Acute embolism and thrombosis of right femoral vein (Final) - 05/30/17 Acute embolism and thrombosis of right popliteal vein (Final) - Chronic kidney disease, unspecified (Final) - Discharge Disposition: Home or Self Care Attending Physician: Magdalena Kirkland MD Vital Signs Most recent to oldest 1 2 3 [Reference Range]: Temperature Oral [96.4-99.1 98.8 DegF 98.5 DegF 98.2 DegF DegF] (05/24/17 12:51 AM) (05/23/17 10:30 PM) (05/23/17 8:33 PM) Blood Pressure [90-140/60-90 102/54 mmHg 98/59 mmHg 102/55 mmHg mmHg] (05/24/17 12:51 AM) (05/23/17 10:30 PM) (05/23/17 9:43 PM) Respiratory Rate [14-20 18 BRMIN 16 BRMIN 16 BRMIN BRMIN] (05/24/17 12:51 AM) (05/23/17 10:30 PM) (05/23/17 9:43 PM) Peripheral Pulse Rate [60-100 90 bpm bpm] (05/23/17 8:33 PM) Problem List Condition Effective Dates Status Health Status Informant CKD (chronic kidney Active disease)(Confirmed) Liver dysfunction(Confirmed) Active Kaveh disease(Confirmed) Active Allergies, Adverse Reactions, Alerts Substance Reaction Severity Status sulfa drugs Active penicillin Active Medications Xarelto Starter Pack 15 mg-20 mg oral tablet 1 tab, PO, BID-Meals, Take 15 mg tablets twice daily with food for 21 days. Beginning day 22,take one 20 mg tablet daily with food for the remainder of therapy., X 30 day, # 1 pkt, 0 Refill(s) Start Date: 05/24/17 Stop Date: 06/23/17 Status: Completed Results ELECTROLYTES Most recent to oldest [Reference Range]: 1 Sodium Lvl [135-145 mEq/L] 138 mEq/L (05/23/17 9:37 PM) Potassium Lvl [3.5-5.1 mEq/L] 4.5 mEq/L (05/23/17 9:37 PM) Chloride Lvl [95-109 mEq/L] 108 mEq/L (05/23/17 9:37 PM) CO2 [24-32 mEq/L] 23 mEq/L *LOW* (05/23/17 9:37 PM) AGAP [10.0-20.0 mEq/L] 11.5 mEq/L (05/23/17 9:37 PM) CHEM PANEL Most recent to oldest [Reference Range]: 1 Creatinine Lvl [0.50-1.40 mg/dL] 1.82 mg/dL *HI* (05/23/17 9:37 PM) eGFR 43 mL/min/1.73m2 1 *NA* (05/23/17 9:37 PM) BUN [7-22 mg/dL] 16 mg/dL (05/23/17 9:37 PM) Glucose Lvl [70-99 mg/dL] 94 mg/dL (05/23/17 9:37 PM) Total Protein [6.4-8.4 g/dL] 6.0 g/dL *LOW* (05/23/17 9:37 PM) Albumin Lvl [3.5-5.0 g/dL] 2.9 g/dL *LOW* (05/23/17 9:37 PM) Globulin [2.7-4.2 g/dL] 3.1 g/dL (05/23/17 9:37 PM) A/G Ratio [0.7-1.6] 0.9 (05/23/17 9:37 PM) Calcium Lvl [8.5-10.5 mg/dL] 8.1 mg/dL *LOW* (05/23/17 9:37 PM) ALT [0-65 unit/L] 23 unit/L (05/23/17 9:37 PM) AST [0-37 unit/L] 21 unit/L (05/23/17 9:37 PM) Alk Phos [39-136 unit/L] 103 unit/L (05/23/17 9:37 PM) Bili Total [0.2-1.3 mg/dL] 0.1 mg/dL *LOW* (05/23/17 9:37 PM) Bili Direct [0.0-0.3 mg/dL] 0.1 mg/dL (05/23/17 9:37 PM) Bili Indirect [0.0-1.0 mg/dL] 0.0 mg/dL (05/23/17 9:37 PM) Lactic Acid Lvl [0.5-2.2 mMol/L] 0.8 mMol/L (05/23/17 9:37 PM) 1Result Comment: The eGFR is calculated using the CKD-EPI formula. In most young , healthy individualsthe eGFR will be >90 mL/min/1.73m2. The eGFR declines with age. An eGFR of 60-89 may be normal insome populations, particularly the elderly, for whom the CKD-EPI formula has not been extensively validated. Use of the eGFR is not recommended in the following populations: Individuals with unstable creatinine concentrations, including patients and those with serious co-morbid conditions. Patients with extremes in muscle mass or diet. The data above are obtained from the National Kidney Disease Education Program ( NKDEP) which additionally recommends that when the eGFR is used in patients with extremes of body mass index for purposesof drug dosing, the eGFR should be multiplied by the estimated BMI.CARDIAC ENZYMES Most recent to oldest [Reference Range]: 1 Troponin-I [0.00-0.40 ng/mL] <0.02 ng/mL (05/23/17 9:37 PM) URINE AND STOOL Most recent to oldest [Reference Range]: 1 UA Turbidity [Clear] Clear (05/23/17 11:57 PM) UA Color [Yellow] Yellow *NA* (05/23/17 11:57 PM) UA pH [5.0-8.0] 6.5 (05/23/17 11:57 PM) UA Spec Grav [<=1.030] <=1.005 *NA* (05/23/17 11:57 PM) UA Glucose [Negative] Negative (05/23/17 11:57 PM) UA Blood [Negative] Negative (05/23/17 11:57 PM) UA Ketones [Negative] Negative *NA* (05/23/17 11:57 PM) UA Protein [Negative] Negative (05/23/17 11:57 PM) UA Urobilinogen [0.1-1.0 EU/dL] 0.2 EU/dL (05/23/17 11:57 PM) UA Bili [Negative] Negative *NA* (05/23/17 11:57 PM) UA Leuk Est [Negative] Negative (05/23/17 11:57 PM) UA Nitrite [Negative] Negative (05/23/17 11:57 PM) UA WBC [None Seen] None Seen (05/23/17 11:57 PM) UA RBC [0-2] None Seen (05/23/17 11:57 PM) UA Sq Epi [Few /LPF] Few /LPF (05/23/17 11:57 PM) UA Hyal Cast [0-2] 0-2 (05/23/17 11:57 PM) HEMATOLOGY Most recent to oldest [Reference Range]: 1 WBC [3.7-10.4 K/CMM] 9.0 K/CMM (05/23/17 9:37 PM) RBC [4.70-6.10 M/CMM] 3.28 M/CMM *LOW* (05/23/17 9:37 PM) Hgb [14.0-18.0 g/dL] 8.5 g/dL *LOW* (05/23/17 9:37 PM) Hct [42.0-54.0 %] 26.0 % *LOW* (05/23/17 9:37 PM) MCV [80.0-94.0 fL] 79.4 fL *LOW* (05/23/17 9:37 PM) MCH [27.0-31.0 pg] 26.0 pg *LOW* (05/23/17 9:37 PM) MCHC [32.0-36.0 g/dL] 32.7 g/dL (05/23/17 9:37 PM) RDW [11.5-14.5 %] 20.1 % *HI* (05/23/17 9:37 PM) MPV [7.4-10.4 fL] 7.3 fL *LOW* (05/23/17 9:37 PM) Platelet [133-450 K/CMM] 207 K/CMM (05/23/17 9:37 PM) Segs [45.0-75.0 %] 50.8 % (05/23/17 9:37 PM) Lymphocytes [20.0-40.0 %] 38.3 % (05/23/17 9:37 PM) Monocytes [2.0-12.0 %] 7.0 % (05/23/17 9:37 PM) Eosinophils [0.0-4.0 %] 2.8 % (05/23/17 9:37 PM) Basophils [0.0-1.0 %] 1.1 % *HI* (05/23/17 9:37 PM) Segs-Bands # [1.5-8.1 K/CMM] 4.6 K/CMM (05/23/17 9:37 PM) Lymphocytes # [1.0-5.5 K/CMM] 3.5 K/CMM (05/23/17 9:37 PM) Monocytes # [0.0-0.8 K/CMM] 0.6 K/CMM (05/23/17 9:37 PM) Eosinophils # [0.0-0.5 K/CMM] 0.3 K/CMM (05/23/17 9:37 PM) Basophils # [0.0-0.2 K/CMM] 0.1 K/CMM (05/23/17 9:37 PM) PT [12.0-14.7 seconds] 12.0 seconds (05/23/17 9:37 PM) INR [0.85-1.17] 0.89 (05/23/17 9:37 PM) PTT [22.9-35.8 seconds] 24.1 seconds (3/11/18 9:37 PM) Immunizations No data available for this section Procedures No data available for this section Social History Social History Type Response Smoking Status Current every day smoker; Ready to change: No; Concerns about tobacco use in household: No; Exposure to Tobacco Smoke None; Cigarette Smoking Last 365 Days No; Reg Smoking Cessation Counseling No entered on: 05/23/17 Assessment and Plan No data available for this section
[2018-05-01] MEDS ORDERED: ONDANSETRON 4 MG/2 ML VIAL ONE ×2 (06:26→08:45)
[2018-05-01] MEDS ORDERED: NA CHLORIDE 0.9% 1,000 ML ONE ×3 (06:26→11:57)
[2018-05-01] MEDS ORDERED: DICYCLOMINE HCL 10 MG CAP ONE (06:26)
[2018-05-01] MEDS ORDERED: PANTOPRAZOLE 40 MG INJ ONE (06:26)
[2018-05-01 06:37] LABS: Absolute Lymphocytes (CBC) 2.4 K/uL (0.7-4.9); Absolute Monocytes 0.7 K/uL (0.1-1.3); Absolute Neutrophil 6.2 K/uL (1.8-8.0); Basophils % 0.2 % (0-1.3); Eosinophils % 2.7 % (0-4.4); Hematocrit 37.4 % (39.6-49.0); Lymphocytes % 25.1 % (15.3-44.8); MPV 7.5 fL (7.6-11.3); Monocytes % 7.3 % (3.3-12.3); RBC Red Blood Cell Count 4.34 M/uL (4.33-5.43)
[2018-05-01 06:39] LABS: Protime INR 0.97
[2018-05-01 07:16] LABS: ALT/SGPT 20 U/L (12-78); AST/SGOT 21 U/L (15-37); Albumin 3.9 g/dL (3.4-5.0); Alkaline Phosphatase 146 U/L (45-117); BUN Blood Urea Nitrogen 32 mg/dL (7-18); Bicarbonate 22 mmol/L (21-32); Bilirubin Direct < 0.1 mg/dL (0-0.2); Bilirubin Total 0.2 mg/dL (0.2-1.0); Glucose Level 92 mg/dL (74-106); Potassium 4.6 mmol/L (3.5-5.1); Protein, Total 7.5 g/dL (6.4-8.2); Sodium Level 138 mmol/L (136-145)
[2018-05-01 08:09] LABS: Barbiturates NEGATIVE (NEGATIVE); Benzodiazepines NEGATIVE (NEGATIVE); Cocaine NEGATIVE (NEGATIVE); METHAMPHETAM NEGATIVE (NEGATIVE); Methadone NEGATIVE (NEGATIVE); Opiates NEGATIVE (NEGATIVE); Phencyclidine NEGATIVE (NEGATIVE); THC Cannibis NEGATIVE (NEGATIVE)
[2018-05-01] MEDS ORDERED: TRAZODONE 50 MG TABLET PO SCH (08:15)
[2018-05-01] MEDS ORDERED: ESCITALOPRAM 20 MG TAB PO SCH (09:00)
[2018-05-01] MEDS ORDERED: QUETIAPINE 100MG TAB PO SCH (09:00)
[2018-05-01] MEDS ORDERED: BUSPIRONE HCL 5 MG TABLET PO SCH (09:00)
[2018-05-01 09:13] LABS: Urine Blood NEGATIVE (NEG); Urine Glucose NEGATIVE (NEG); Urine Protein NEGATIVE (NEG)
--- NOTE | 2018-05-01 10:45 | ER ---
Nurse's Notes [facility] Name: Jeovany Buckley Age: 52 yrs Sex: Male : 1965 Arrival Date: 05/01/2018 Time: 05:42 Bed 17 Private MD: Diagnosis: Nausea and vomiting Presentation: 05/01 05:40 Presenting complaint: EMS states: started yesterday patient complaint of abdominal rr5 cramping entire stomach. nausea and vomiting, unable to keep the medication down and he verbalized he is having suicidal thoughts if he cannot take his medication. 05:40 Transition of care: [facility]. Onset of symptoms was May 01, 2018. Risk rr5 Assessment: Do you want to hurt yourself or someone else? Patient reports desire/thoughts of hurting themselves or someone else. Provider notified. Initial Sepsis Screen: Does the patient meet any 2 criteria? No. Patient's initial sepsis screen is negative. Does the patient have a suspected source of infection? No. Patient's initial sepsis screen is negative. Note pain score of 10/10 as verbalized by the patient. Care prior to arrival: None. 05:40 Method Of Arrival: EMS: [facility] rr5 05:40 Acuity: JED 2 rr5 Historical: - Allergies: 05:53 Aspirin; rr5 05:53 PENICILLINS; rr5 05:53 Sulfa (Sulfonamide Antibiotics); rr5 - Home Meds: 05:53 buspirone 10 mg Oral tab 1 tab 2 times per day [Active]; lisinopril 5 mg Oral tab 1 tab rr5 once daily [Active]; Nexium 40 mg Oral cpDR 1 cap once daily [Active]; Seroquel 400 mg Oral tab 1 tab 2 times per day [Active]; Trazodone Oral [Active]; Eliquis Oral [Active]; Lexapro 20 mg Oral tab 1 tab once daily [Active]; Risperdal Oral [Active]; Tramadol Oral [Active]; - PMHx: 05:53 Bipolar disorder; DVT; RLE; Weakley's Disease; Hypertension; Renal Disease; liver rr5 damage; - PSHx: 05:53 Cholecystectomy; rr5 - Immunization history:: Adult Immunizations up to date. - Social history:: Smoking status: Patient uses tobacco products, smokes one-half pack cigarettes per day, Patient/guardian denies using alcohol, street drugs. - Ebola Screening: : Patient negative for fever greater than or equal to 101.5 degrees Fahrenheit, and additional compatible Ebola Virus Disease symptoms Patient denies exposure to infectious person Patient denies travel to an Ebola-affected area in the 21 days before illness onset. Screenin:50 Abuse screen: Denies threats or abuse. Denies injuries from another. Nutritional rr5 screening: No deficits noted. Tuberculosis screening: No symptoms or risk factors identified. Fall Risk IV access (20 points). Mental Status- Overestimates/Forgets Limitations (15 pts.). Total Segura Fall Scale indicates Low Risk Score (25-44 pts). Fall prevention measures have been instituted. Side Rails Up X 2 Placed close to Nursing Station 1:1 attendant Assigned to Pt. Frequent Obs/Assesments occuring As available Patient and Family Educated on Fall Prevention Program and strategies. Assessment: 06:18 General: Appears uncomfortable, Behavior is cooperative, flat. Pain: Complains of pain jd3 in abdomen Quality of pain is described as aching, tender. Neuro: Level of Consciousness is awake, alert, obeys commands, Oriented to person, place, time, situation, Appropriate for age. Cardiovascular: Heart tones S1 S2 present Capillary refill < 3 seconds Patient's skin is warm and dry. Rhythm is regular. Respiratory: Airway is patent Respiratory effort is even, unlabored, Respiratory pattern is regular, symmetrical, Breath sounds are clear bilaterally. GI: Abdomen is round non-distended, Bowel sounds present X 4 quads. Abd is soft Abdomen is tender to palpation X 4 quads. Reports diarrhea, nausea, vomiting. : No signs and/or symptoms were reported regarding the genitourinary system. EENT: No signs and/or symptoms were reported regarding the EENT system. Derm: Skin is intact, Skin is dry, Skin is normal, Skin temperature is warm. Musculoskeletal: Circulation, motion, and sensation intact. Range of motion: intact in all extremities. 07:26 Reassessment: Patient appears in no apparent distress at this time. Patient and/or em family updated on plan of care and expected duration. Pain level reassessed. Patient is alert, oriented x 3, equal unlabored respirations, skin warm/dry/pink. pending UA. 07:55 Reassessment: reports that he currently does not want to hurt himself, just wants to be em able to take his meds so he does not become suicidal, pt calm cooperative at this time, provider notified, new medication orders received. 08:25 Reassessment: reports being nauseous, dry heaving noted, provider notified, new em medication orders received, will hold PO meds. 09:00 Reassessment: Patient appears in no apparent distress at this time. Patient and/or em family updated on plan of care and expected duration. Pain level reassessed. Patient is alert, oriented x 3, equal unlabored respirations, skin warm/dry/pink. Patient states feeling better. Patient states symptoms have improved. 10:37 Reassessment: Patient appears in no apparent distress at this time. Patient and/or em family updated on plan of care and expected duration. Pain level reassessed. Patient is alert, oriented x 3, equal unlabored respirations, skin warm/dry/pink. reports feeling better, nausea has improved, denies SI currently Patient states feeling better. 10:37 Reassessment: Patient appears in no apparent distress at this time. Patient and/or em family updated on plan of care and expected duration. Pain level reassessed. Patient is alert, oriented x 3, equal unlabored respirations, skin warm/dry/pink. pt BP 90/64 manual, HR 98, pt is asymptomatic, provider notified, new medication order for 1 L NS. 11:30 Reassessment: Patient appears in no apparent distress at this time. Patient and/or em family updated on plan of care and expected duration. Pain level reassessed. Patient is alert, oriented x 3, equal unlabored respirations, skin warm/dry/pink. 12:51 Reassessment: Patient appears in no apparent distress at this time. Patient and/or em family updated on plan of care and expected duration. Pain level reassessed. Patient is alert, oriented x 3, equal unlabored respirations, skin warm/dry/pink. BP improved, provider notified, pt will be discharged. Psych: 06:16 Subjective: Patient's mood is sad, Delusions are denied, Hallucinations are denied jd3 Having thoughts of suicide. Denies suicidal plan. Objective: Patient is cooperative, Speech is soft, Affect is flat. Interventions: Removed personal items and placed in bag. Patient placed in hospital gown. Searched person for dangerous items. Belonging list filled out. Suicide Risk Assessment: Sad Person Scale: Sex of patient: Male: Score 1 point. Age of patient: Score 0 point if patient falls outside of specified age parameters. Depression: Score 1 point if signs of depression are present. Previous Attempt: Score 1 point if patient has previously attempted suicide. Substance Abuse: Score 0 point if patient does not abuse alcohol or drugs. Rational Thinking: Score 1 point if patient is lacking rational thinking. Social Support: Score 1 point if social support is lacking and/or unavailable. Organized Plan: Score 0 if patient did not have an organized plan in place. Relationship: Score 1 point if patient is , , , or for a single male Chronic Sickness: Score 1 point if patient has illness, chronic, debilitating, or severe. TOTAL POINTS: If total points are 7-10, the proposed clinical action is to hospitalize or commit. Implement suicide precautions. Safety Checks: Personal items have been removed. Door is open. No visitors are present at this time. Pt denies substance abuse. Vital Signs: 05:50 BP 125 / 76; Pulse 96; Resp 17; Temp 97.9; Pulse Ox 97% ; Weight 81.65 kg; Height 5 ft. rr5 10 in. (177.80 cm); Pain 10/10; 08:59 BP 98 / 62; Pulse 93; Resp 18; Temp 97.6(O); Pulse Ox 100% on R/A; mh5 11:13 BP 58 / 42; Pulse 88; Resp 18; Pulse Ox 97% ; js5 11:20 BP 66 / 37; Pulse 89; Resp 19; Pulse Ox 97% on R/A; js5 11:33 BP 67 / 34; Pulse 88; Resp 19; Pulse Ox 97% on R/A; js5 11:44 BP 90 / 64; Resp 18; js5 12:44 BP 100 / 70; Pulse 90; Resp 18; Pulse Ox 98% on R/A; js5 05:50 Body Mass Index 25.83 (81.65 kg, 177.80 cm) rr5 11:13 received patient,asleep,stable,conversant, js5 11:20 patient asymptomatic,not dizzy,nil N\T\V js5 11:33 SeatingBP: 81/49,standing Left arm 75/59,standing right arm js5 79/59.asymptomatic,conversant and coherent 11:44 taken manually by Byron MANJARREZ.patient asyptomatic, not dizzy js5 12:44 poost infusion of 1L NS js5 ED Course: 05:42 Patient arrived in ED. rr5 05:43 Jairo Rm, JOSSELINE is Primary Nurse. jd3 05:45 Safety Checks: Personal items have been removed. The door is open or patient has been jd3 placed in a hallway bed/chair. There are no family/friend visitors at this time Sitter present at this time. 05:50 Triage completed. rr5 05:53 Arm band placed on left wrist. rr5 06:00 Safety Checks: Personal items have been removed. The door is open or patient has been jd3 placed in a hallway bed/chair. There are no family/friend visitors at this time Sitter present at this time. 06:06 Kevin Jeff PA is PHCP. cp 06:06 Yvon Robertson MD is Attending Physician. cp 06:10 Inserted saline lock: 22 gauge in right forearm, using aseptic technique. Blood rr5 collected. 06:15 Safety Checks: Personal items have been removed. The door is open or patient has been jd3 placed in a hallway bed/chair. There are no family/friend visitors at this time Sitter present at this time. 06:19 Patient has correct armband on for positive identification. Placed in gown. Bed in low jd3 position. Call light in reach. Side rails up X 1. 06:22 Missed attempt(s): 20 gauge in left antecubital area. ag4 06:30 Safety Checks: Personal items have been removed. The door is open or patient has been jd3 placed in a hallway bed/chair. There are no family/friend visitors at this time Sitter present at this time. 06:45 Safety Checks: Personal items have been removed. The door is open or patient has been jd3 placed in a hallway bed/chair. There are no family/friend visitors at this time Sitter present at this time. 07:00 Safety Checks: Personal items have been removed. The door is open or patient has been jd3 placed in a hallway bed/chair. There are no family/friend visitors at this time Sitter present at this time. 07:15 Safety checks: Items removed: yes. Door open/sign placed on door: yes. Family/friend mh5 present: no. Sitter present: Yes. 07:30 Safety checks: Items removed: yes. Door open/sign placed on door: yes. Family/friend mh5 present: no. Sitter present: Yes. 07:45 Safety checks: Items removed: yes. Door open/sign placed on door: yes. Family/friend mh5 present: no. Sitter present: Yes. 08:00 Safety checks: Items removed: yes. Door open/sign placed on door: yes. Family/friend mh5 present: no. Sitter present: Yes. 08:07 Diet: Patient given a regular meal tray. mh5 08:15 Safety checks: Items removed: yes. Door open/sign placed on door: yes. Family/friend mh5 present: no. Sitter present: Yes. 08:30 Safety checks: Items removed: yes. Door open/sign placed on door: no. Family/friend mh5 present: no. Sitter present: Yes. 08:45 Safety checks: Items removed: yes. Door open/sign placed on door: yes. Family/friend mh5 present: no. Sitter present: Yes. 09:00 Safety checks: Items removed: yes. Door open/sign placed on door: yes. Family/friend mh5 present: no. Sitter present: Yes. 09:15 Safety checks: Items removed: yes. Door open/sign placed on door: yes. Family/friend mh5 present: no. Sitter present: Yes. 09:30 Safety checks: Items removed: yes. Door open/sign placed on door: yes. Family/friend mh5 present: no. Sitter present: Yes. 09:45 Safety checks: Items removed: yes. Door open/sign placed on door: yes. Family/friend mh5 present: no. Sitter present: Yes. 10:00 Safety checks: Items removed: yes. Door open/sign placed on door: yes. Family/friend mh5 present: no. Sitter present: Yes. 10:15 Safety checks: Items removed: yes. Door open/sign placed on door: yes. Family/friend mh5 present: no. Sitter present: Yes. 10:30 Safety checks: Items removed: yes. Door open/sign placed on door: yes. Family/friend mh5 present: no. Sitter present: Yes. 10:45 Safety checks: Items removed: yes. Door open/sign placed on door: yes. Family/friend mh5 present: no. Sitter present: Yes. 11:00 Safety checks: Items removed: yes. Door open/sign placed on door: yes. Family/friend mh5 present: no. Sitter present: Yes. 11:25 Safety Checks: Personal items have been removed. There are no family/friend visitors at js5 this time Sitter present at this time. Other: received patient lying in bed, asleep,stable,with no IV line,for dicharge, received at 1105. Safety Checks: Other: patients vitals was taken,with BP low reading, referred to ER Nurse for evaluation. 11:45 Safety Checks: Personal items have been removed. The door is open or patient has been js5 placed in a hallway bed/chair. Sitter present at this time. 11:50 Inserted saline lock: 20 gauge in right antecubital area, using aseptic technique. em 12:01 Safety Checks: Personal items have been removed. The door is open or patient has been js5 placed in a hallway bed/chair. There are no family/friend visitors at this time Sitter present at this time. Other: Inserted IV line at right AC, for IV bolus of 1LNS prior discharge, as per order. Infusing via pressure infuser. Stable, asleep. 12:20 Appears to be sleeping. Safety Checks: Personal items have been removed. The door is js5 open or patient has been placed in a hallway bed/chair. Sitter present at this time. Other: IV bolus of 1LNS was completed at 1218h. BP taken manually at left arm 100/70 hr: 90 SAO2:97 % RR:18. Safety Checks: Personal items have been removed. The door is not opened, nor is patient placed in a hallway bed/chair. Sitter present at this time. Other: asleep. 12:42 Safety Checks: Other: IV was removed, BP wnl. 100/70.for discharge. stable,ambulatory. js5 12:51 No provider procedures requiring assistance completed. IV discontinued, intact, em bleeding controlled, No redness/swelling at site. Pressure dressing applied. Administered Medications: 06:27 Drug: NS 0.9% 1000 ml Route: IV; Rate: 1 bolus; Site: right forearm; rr5 08:06 Follow up: IV Status: Completed infusion; IV Intake: 1000ml em 06:28 Drug: Zofran 4 mg Route: IVP; Site: right forearm; rr5 08:06 Follow up: Response: No adverse reaction; Nausea is decreased em 06:30 Drug: ProTONIX 40 mg Route: IVP; Site: right forearm; rr5 08:06 Follow up: Response: No adverse reaction em 06:31 Drug: Bentyl 20 mg Route: PO; rr5 08:06 Follow up: Response: No adverse reaction em 08:05 Drug: NS 0.9% 1000 ml Route: IV; Rate: 1 bolus; Site: right forearm; em 09:10 Follow up: IV Status: Completed infusion; IV Intake: 1000ml em 08:40 Drug: Zofran 4 mg Route: IVP; Site: right forearm; em 09:05 Follow up: Response: No adverse reaction; Nausea is decreased em 09:09 Drug: SEROquel 200 mg Route: PO; em 09:57 Follow up: Response: No adverse reaction em 09:10 Drug: BuSpar 15 mg Route: PO; em 09:57 Follow up: Response: No adverse reaction em 09:10 Drug: Lexapro 20 mg Route: PO; em 09:57 Follow up: Response: No adverse reaction em 09:10 Drug: traZODONE 100 mg Route: PO; em 09:58 Follow up: Response: No adverse reaction em 11:55 Drug: NS 0.9% 1000 ml Route: IV; Rate: 1 bolus; Site: right antecubital; em 12:53 Follow up: IV Status: Completed infusion; IV Intake: 1000ml em Intake: 08:06 IV: 1000ml; Total: 1000ml. em 09:10 IV: 1000ml; Total: 2000ml. em 12:53 IV: 1000ml; Total: 3000ml. em Outcome: 10:44 Discharge ordered by MD. cp 12:52 Discharged to home ambulatory. em 12:52 Condition: good 12:52 Discharge instructions given to patient, Instructed on discharge instructions, follow up and referral plans. medication usage, Demonstrated understanding of instructions, follow-up care, medications, Prescriptions given X 2. 12:52 Patient left the ED. em Signatures: Byron Mari, INTERNAL AUDIT DIRECTOR INTERNAL AUDIT DIRECTOR em Kevin Jfef PA PA cp Martinez, Maria 5 Jairo Rm RN RN jd3 Demond Alicea RN RN rr5 Amauri Perry ag4 Jolanta Jimenez5
--- NOTE | 2018-05-01 10:45 | EDPHYS ---
Physician Documentation [facility] Name: Jeovany Buckley Age: 52 yrs Sex: Male : 1965 Arrival Date: 05/01/2018 Time: 05:42 Bed 17 Private MD: ED Physician Yvon Robertson HPI: 05/01 06:12 This 52 yrs old Male presents to ER via EMS with complaints of Abdominal cp Cramping, Suicidal Ideation. 06:13 The patient presents to the emergency department with nausea, that is moderate, cp vomiting, that is intermittent, diarrhea, that is intermittent. Onset: The symptoms/episode began/occurred yesterday. Possible causes: unknown. Associated signs and symptoms: Pertinent positives: abdominal pain, Pertinent negatives: constipation, fever. 06:13 Severity of symptoms: in the emergency department the symptoms are unchanged. cp 06:13 Patient reports he has not been able to take prescribed meds due to N/V and has had cp increasing thoughts to harm self. Historical: - Allergies: 05:53 Aspirin; rr5 05:53 PENICILLINS; rr5 05:53 Sulfa (Sulfonamide Antibiotics); rr5 - Home Meds: 05:53 buspirone 10 mg Oral tab 1 tab 2 times per day [Active]; lisinopril 5 mg Oral tab 1 tab rr5 once daily [Active]; Nexium 40 mg Oral cpDR 1 cap once daily [Active]; Seroquel 400 mg Oral tab 1 tab 2 times per day [Active]; Trazodone Oral [Active]; Eliquis Oral [Active]; Lexapro 20 mg Oral tab 1 tab once daily [Active]; Risperdal Oral [Active]; Tramadol Oral [Active]; - PMHx: 05:53 Bipolar disorder; DVT; RLE; Tensas's Disease; Hypertension; Renal Disease; liver rr5 damage; - PSHx: 05:53 Cholecystectomy; rr5 - Immunization history:: Adult Immunizations up to date. - Social history:: Smoking status: Patient uses tobacco products, smokes one-half pack cigarettes per day, Patient/guardian denies using alcohol, street drugs. - Ebola Screening: : Patient negative for fever greater than or equal to 101.5 degrees Fahrenheit, and additional compatible Ebola Virus Disease symptoms Patient denies exposure to infectious person Patient denies travel to an Ebola-affected area in the 21 days before illness onset. ROS: 06:15 Eyes: Negative for injury, pain, redness, and discharge. cp 06:15 Constitutional: Negative for body aches, chills, fever, poor PO intake. Exam: 06:15 ECG was reviewed by the Attending Physician. cp 06:20 Head/Face: Normocephalic, atraumatic. cp 06:20 Constitutional: The patient appears in no acute distress, alert, awake, non-diaphoretic, non-toxic, well developed, well nourished, uncomfortable. 06:20 Eyes: Periorbital structures: appear normal, Conjunctiva: normal, no exudate, no cp injection, Sclera: no appreciated abnormality, Lids and lashes: appear normal, bilaterally. 06:20 ENT: External ear(s): are unremarkable, Ear canal(s): are normal, clear, TM's: bulging, is not appreciated, bilaterally, erythema, is not appreciated, bilaterally, Nose: is normal, Mouth: Lips: moist, Oral mucosa: moist, Posterior pharynx: Airway: no evidence of obstruction, patent, Tonsils: are normal in appearance, swelling, is not appreciated, erythema, is not appreciated, exudate, is not appreciated. 06:20 Neck: ROM/movement: is normal, is supple, without pain, no range of motions limitations, no meningismus, no nuchal rigidity. 06:20 Chest/axilla: Inspection: normal, Palpation: is normal, no crepitus, no tenderness. 06:20 Cardiovascular: Rate: normal, Rhythm: regular, Pulses: Pulses are 2+ in right radial artery and left radial artery. Edema: is not appreciated, JVD: is not appreciated. 06:20 Respiratory: the patient does not display signs of respiratory distress, Respirations: normal, no use of accessory muscles, no retractions, no splinting, no tachypnea, labored breathing, is not present, Breath sounds: are clear throughout, no decreased breath sounds, no stridor, no wheezing. 06:20 Abdomen/GI: Inspection: abdomen appears normal, Bowel sounds: active, all quadrants, Palpation: soft, in all quadrants, mild abdominal tenderness, in the epigastric area, right upper quadrant and left upper quadrant, rebound tenderness, is not appreciated, involuntary guarding, is not appreciated. 06:20 Back: pain, is absent, ROM is normal, CVA tenderness, is absent. 06:20 Neuro: Orientation: to person, place \T\ time. Mentation: is normal, Cerebellar function: is grossly normal, Motor: moves all fours, strength is normal, Sensation: is normal. Vital Signs: 05:50 BP 125 / 76; Pulse 96; Resp 17; Temp 97.9; Pulse Ox 97% ; Weight 81.65 kg; Height 5 ft. rr5 10 in. (177.80 cm); Pain 10/10; 08:59 BP 98 / 62; Pulse 93; Resp 18; Temp 97.6(O); Pulse Ox 100% on R/A; mh5 11:13 BP 58 / 42; Pulse 88; Resp 18; Pulse Ox 97% ; js5 11:20 BP 66 / 37; Pulse 89; Resp 19; Pulse Ox 97% on R/A; js5 11:33 BP 67 / 34; Pulse 88; Resp 19; Pulse Ox 97% on R/A; js5 11:44 BP 90 / 64; Resp 18; js5 12:44 BP 100 / 70; Pulse 90; Resp 18; Pulse Ox 98% on R/A; js5 05:50 Body Mass Index 25.83 (81.65 kg, 177.80 cm) rr5 11:13 received patient,asleep,stable,conversant, js5 11:20 patient asymptomatic,not dizzy,nil N\T\V js5 11:33 SeatingBP: 81/49,standing Left arm 75/59,standing right arm js5 79/59.asymptomatic,conversant and coherent 11:44 taken manually by Byron MANJARREZ.patient asyptomatic, not dizzy js5 12:44 poost infusion of 1L NS js5 MDM: 06:06 Patient medically screened. cp 10:42 ED course: VSS. Nausea markedly improved and vomiting resolved. Patient denies suicidal cp or homicidal ideations at this time. 10:42 Data reviewed: vital signs, nurses notes, lab test result(s), EKG, and as a result, I cp will discharge patient. 10:42 Test interpretation: by ED physician or midlevel provider: ECG. Response to treatment: cp the patient's symptoms have markedly improved after treatment, and as a result, I will discharge patient. 02/17 05:48 Order name: Acetaminophen; Complete Time: 07:35 jd3 05/01 05:48 Order name: Basic Metabolic Panel; Complete Time: 07:35 jd3 05/01 07:35 Interpretation: Normal except: CL 109; BUN 32; CRE 2.10; GFR 34. cp 05/01 05:48 Order name: CBC with Diff; Complete Time: 06:58 jd3 05/01 06:59 Interpretation: Normal except: HGB 12.7; HCT 37.4; RDW 15.5; MPV 7.5. cp 05/01 05:48 Order name: ETOH Level; Complete Time: 07:35 jd3 05/01 05:48 Order name: Hepatic Function; Complete Time: 07:35 jd3 05/01 08:21 Interpretation: Normal except: ALK 146; GLOB 3.6. cp 05/01 05:48 Order name: PT-INR; Complete Time: 06:58 jd3 05/01 05:48 Order name: Ptt, Activated; Complete Time: 06:58 jd3 05/01 05:48 Order name: Salicylate; Complete Time: 07:35 jd3 05/01 05:48 Order name: Urine Drug Screen; Complete Time: 08:21 jd3 05/01 06:11 Order name: Lipase; Complete Time: 07:35 cp 05/01 07:52 Order name: Urine Dipstick--Ancillary (enter results); Complete Time: 10:02 ms 05/01 05:48 Order name: EKG; Complete Time: 05:50 jd3 05/01 05:48 Order name: EKG - Nurse/Tech; Complete Time: 06:12 jd3 05/01 05:48 Order name: IV Saline Lock; Complete Time: 06:12 jd3 05/01 05:48 Order name: Labs collected and sent; Complete Time: 06:12 jd3 05/01 05:48 Order name: Urine Dipstick-Ancillary (obtain specimen); Complete Time: 08:38 jd3 05/01 07:16 Order name: Diet Regular; Complete Time: 07:16 mh5 05/01 09:29 Order name: PO challenge; Complete Time: 09:58 cp EC:15 Rate is 90 beats/min. Rhythm is regular. WA interval is prolonged at 200 msec. QRS cp interval is normal. QT interval is normal. Interpreted by me. Reviewed by me. Administered Medications: 06:27 Drug: NS 0.9% 1000 ml Route: IV; Rate: 1 bolus; Site: right forearm; rr5 08:06 Follow up: IV Status: Completed infusion; IV Intake: 1000ml em 06:28 Drug: Zofran 4 mg Route: IVP; Site: right forearm; rr5 08:06 Follow up: Response: No adverse reaction; Nausea is decreased em 06:30 Drug: ProTONIX 40 mg Route: IVP; Site: right forearm; rr5 08:06 Follow up: Response: No adverse reaction em 06:31 Drug: Bentyl 20 mg Route: PO; rr5 08:06 Follow up: Response: No adverse reaction em 08:05 Drug: NS 0.9% 1000 ml Route: IV; Rate: 1 bolus; Site: right forearm; em 09:10 Follow up: IV Status: Completed infusion; IV Intake: 1000ml em 08:40 Drug: Zofran 4 mg Route: IVP; Site: right forearm; em 09:05 Follow up: Response: No adverse reaction; Nausea is decreased em 09:09 Drug: SEROquel 200 mg Route: PO; em 09:57 Follow up: Response: No adverse reaction em 09:10 Drug: BuSpar 15 mg Route: PO; em 09:57 Follow up: Response: No adverse reaction em 09:10 Drug: Lexapro 20 mg Route: PO; em 09:57 Follow up: Response: No adverse reaction em 09:10 Drug: traZODONE 100 mg Route: PO; em 09:58 Follow up: Response: No adverse reaction em 11:55 Drug: NS 0.9% 1000 ml Route: IV; Rate: 1 bolus; Site: right antecubital; em 12:53 Follow up: IV Status: Completed infusion; IV Intake: 1000ml em Disposition: 05/02 05:48 Co-signature as Attending Physician, Yvon Robertson MD I agree with the assessment and kdr plan of care. Disposition: 05/01/18 10:44 Discharged to Home. Impression: Nausea and vomiting. - Condition is Stable. - Discharge Instructions: Nausea and Vomiting, Adult. - Prescriptions for Zofran 4 mg Oral Tablet - take 1 tablet by ORAL route every 12 hours As needed; 20 tablet. Phenergan 25 mg Rectal Suppository - insert 1 suppository by RECTAL route every 6 hours As needed; 12 suppository. - Medication Reconciliation Form, Thank You Letter, Antibiotic Education, Prescription Opioid Use form. - Follow up: Private Physician; When: 1 - 2 days; Reason: Recheck today's complaints. - Problem is new. - Symptoms have improved. Signatures: Dispatcher [employer] EDYvon Jackson MD MD [facility] Byron Mari, [address] SQL DEVELOPER [address] SQL DEVELOPER em Kevin Jeff PA PA cp Davies, Jonathon RN RN jd3 Demond Alicea RN RN rr5 Corrections: (The following items were deleted from the chart) 05/01 06:59 06:59 Normal except: HGB 12.7; HCT 37.4. cp cp 10:51 10:48 ECG was reviewed by the Attending Physician. cp cp 12:52 10:44 05/01/2018 10:44 Discharged to Home. Impression: Nausea and vomiting. Condition em is Stable. Forms are Medication Reconciliation Form, Thank You Letter, Antibiotic Education, Prescription Opioid Use. Follow up: Private Physician; When: 1 - 2 days; Reason: Recheck today's complaints. Problem is new. Symptoms have improved. cp
[2018-05-01 13:06] VITALS: TEMP 97.6
[2018-05-01 13:08] VITALS: O2SAT 97
[2018-05-01 13:11] VITALS: BP 90/64
--- NOTE | 2018-05-02 07:40 | EKG ---
Test Date: 2018-05-01 Test Time: 05:54:26 Bicycle Mechanic: TATIANA MEASUREMENT RESULTS: Intervals: Rate: 90 CO: 200 QRSD: 78 QT: 344 QTc: 420 [place]: P: 42 CO: 200 QRS: -47 T: 14 INTERPRETIVE STATEMENTS: Normal sinus rhythm Left anterior fascicular block Cannot rule out Inferior infarct, age undetermined Possible Anterolateral infarct, age undetermined Abnormal ECG Compared to ECG 09/07/2017 14:26:52 Left anterior fascicular block now present Myocardial infarct finding now present Left-axis deviation no longer present Electronically Signed On 05-02-18 07:37:46 BLUNGER by Melvin Roa
== END 2018-05-01 12:52 | disposition home or self-care (01) ==
LOC: ER 05:36
DX: R11.2 Nausea with vomiting, unspecified (principal); I10 Essential (primary) hypertension; F31.9 Bipolar disorder, unspecified; F17.210 Nicotine dependence, cigarettes, uncomplicated; Z79.01 Long term (current) use of anticoagulants; Z88.0 Allergy status to penicillin; Z88.2 Allergy status to sulfonamides; Z88.6 Allergy status to analgesic agent; Z86.718 Personal history of other venous thrombosis and embolism
CPT/HCPCS: 36415; 80048; 80076; 80307 ×8; 80320; 80329 ×2; 81003; 83690; 85025; 85610; 85730; 93005; C9113; J2405 ×2; J7030 ×3; 96361; 96374; 96375; 99285

== ENCOUNTER 2018-08-13 17:06 | Emergency (ER) | payer OTHER ==
--- OUTSIDE RECORDS SUMMARY | 2018-08-13 17:10 | XMS REPORT | Clinical Summary ---
:1965 Author Organization [facility] Address [address] [place] [address] Care Team Providers Name Role Phone Asked, [...] Active (PRINIVIL,ZESTRIL) mouth daily. 5 mg tablet zolpidem (AMBIEN) 5 Take 5 mg by 0 11/17/2017 Discontinued MG tablet mouth nightly as needed for sleep. acetaminophen-codei Take 1-2 20 tablet 0 09/26/2017 [...] N/A 09/29/2017 - Emergency Emergency Medicine Kristi Flores Suicidal ideation ( Primary Dx); 09/30/2017 MD Sam RUQ abdominal pain; Chronic kidney disease, unspecified CKD stage; Kaveh disease; Chronic liver disease; Dehydration; Metabolic acidosis; Left axis deviation; Biliary colic 09/26/2017 Emergency Emergency Medicine Bhavin Dinh, Calculus of gallbladder without cholecystitis without obstruction (Primary Dx) after 08/12/2017 Immunizations Name Dates Previously Given Next Due [...] Health Maintenance Due Date Last Done Comments COLON CANCER SCREENING 10/28/2017 SHINGLES VACCINES (#1) 10/28/2017 INFLUENZA VACCINE 10/13/2018 05/26/2017 Procedures Procedure Name Priority Date/Time Associated Comments [...] procedure are in the results section. after 08/12/2017 Results ECG 12 lead (11/17/2017 2:13 AM CDT)Only the most recent of2 resultswithin the time period is included. Ventricular rate 93 [facility] Atrial rate 93 [facility] OK interval 194 [facility] QRSD interval 76 [facility] QT interval 346 [facility] QTC interval 430 [facility] P axis 1 13 [facility] QRS axis 1 -52 [facility] T wave axis 27 [facility] EKG impression Normal sinus [facility] MUSE rhythm-Left axis deviation-Abnormal ECG-- Specimen Performing Organization Address [facility] Phone Number [facility] MUSE [address] [place] [id number] Estimated GFR (11/17/2017 1:42 AM CDT)Only the most recent of3 resultswithin the time period is included. Pathologist [facility] Emergency Department GFR Non Af Amer 38 (A) mL/min/1.73 [facility] DEPARTMENT OF m2 PATHOLOGY AND GENOMIC MEDICINE GFR Af Amer 46 (A) mL/min/1.73 [facility] DEPARTMENT OF Comment: m2 PATHOLOGY AND Chronic kidney disease: <60 mL/min/1.73m2 GENOMIC MEDICINE Kidney failure: <15 mL/min/1.73m2 The estimated [...] Americans. Specimen Plasma specimen Performing Organization Address [facility] Phone Number [facility] DEPARTMENT OF PATHOLOGY AND [address] [place] [address] Thyroid stimulating hormone (11/17/2017 1:42 AM CDT)Only the most recent of2 resultswithin the time period is included. TSH 1.20 0.27 - 4.20 uIU/mL [facility] DEPARTMENT OF PATHOLOGY AND GENOMIC MEDICINE Specimen Plasma specimen Performing Organization Address City/[facility]/Zipcode Phone Number [facility] DEPARTMENT OF PATHOLOGY AND [address] [place] [address] T4, free (11/17/2017 1:42 AM CDT)Only the most recent of2 resultswithin the time period is included. T4, free 1.1 0.9 - 1.7 ng/dL [facility] DEPARTMENT OF PATHOLOGY AND GENOMIC MEDICINE Specimen Plasma specimen Performing Organization Address City/[facility] Phone Number [facility] DEPARTMENT OF PATHOLOGY AND [address] [place] [address] GENOMIC MEDICINE Alcohol level, blood (11/17/2017 1:42 AM CDT)Only the most recent of2 resultswithin the time period is included. Alcohol None Detected mg/dL [facility] DEPARTMENT OF Comment: PATHOLOGY AND Normal None Detected GENOMIC MEDICINE Legal Intoxication in [place]80 mg/dL (0.08%) - Whole Blood Toxic Fdydubfasxmpr454 mg/dL (0.2%) Potentially Mbeua069 - 500 mg/dL (0.35 - 0.5%) Alcohol percent None Detected % [facility] DEPARTMENT OF PATHOLOGY AND GENOMIC MEDICINE Specimen Plasma specimen Performing Organization Address [facility] Phone Number [facility] DEPARTMENT OF PATHOLOGY AND [address] [place] [address] MEDICINE Acetaminophen level (11/17/2017 1:42 AM CDT)Only the most recent of2 resultswithin the time period is included. Acetaminophen level <15.0 10.0 - 30.0 [facility] DEPARTMENT OF Comment: ug/mL PATHOLOGY AND Therapeutic 10-30 ug/mL GENOMIC MEDICINE Possible Toxicity 150-200 ug/mL Probable Toxicity >200 ug/mL Specimen Plasma specimen Performing Organization Address [facility] Phone Number [facility] DEPARTMENT OF PATHOLOGY AND [address] [place] [address] MEDICINE Salicylate level (11/17/2017 1:42 AM CDT)Only the most recent of2 resultswithin the time period is included. Salicylate <3.0 3.0 - 30.0 mg/dL [facility] DEPARTMENT OF PATHOLOGY AND GENOMIC MEDICINE Specimen Plasma specimen Performing Organization Address City[facility] Phone Number [facility] DEPARTMENT OF PATHOLOGY AND [address] [place] [address] GENOMIC MEDICINE Comprehensive metabolic panel (11/17/2017 1:42 AM CDT)Only the most recent of3 resultswithin the time period is included. Sodium 134 (L) 135 - 148 [facility] DEPARTMENT OF mEq/L PATHOLOGY AND GENOMIC MEDICINE Potassium 4.4 3.5 - 5.0 [facility] DEPARTMENT OF mEq/L PATHOLOGY AND GENOMIC MEDICINE Chloride 103 98 - 112 mEq/L [facility] DEPARTMENT OF PATHOLOGY AND GENOMIC MEDICINE CO2 16 (L) 24 - 31 mEq/L [facility] DEPARTMENT OF PATHOLOGY AND GENOMIC MEDICINE Anion gap 15@ANIO 7 - 15 mEq/L [facility] DEPARTMENT OF PATHOLOGY AND GENOMIC MEDICINE BUN 22 (H) 6 - 20 mg/dL [facility] DEPARTMENT OF PATHOLOGY AND GENOMIC MEDICINE Creatinine 1.9 (H) 0.7 - 1.2 [facility] DEPARTMENT OF mg/dL PATHOLOGY AND GENOMIC MEDICINE Glucose 116 (H) 65 - 99 mg/dL [facility] DEPARTMENT OF PATHOLOGY AND GENOMIC MEDICINE Calcium 8.8 8.3 - 10.2 [facility] DEPARTMENT OF mg/dL PATHOLOGY AND GENOMIC MEDICINE Protein 7.2 6.3 - 8.3 g/dL [facility] DEPARTMENT OF Comment: PATHOLOGY AND 4.6-7.0 g/dL GENOMIC MEDICINE 1 week 4.4-7.6 g/dL 7 months-1year5.1-7.3 g/dL 1-2 years5.6-7.5 g/dL >3 years6.0-8.0 g/dL 18-150 6.3-8.3 g/dL Albumin 3.8 3.5 - 5.0 g/dL [facility] DEPARTMENT OF PATHOLOGY AND GENOMIC MEDICINE A/G ratio 1.1 0.7 - 3.8 [facility] DEPARTMENT OF PATHOLOGY AND GENOMIC MEDICINE Alkaline phosphatase 106 40 - 129 U/L [facility] DEPARTMENT OF PATHOLOGY AND GENOMIC MEDICINE AST 28 10 - 50 U/L [facility] DEPARTMENT OF PATHOLOGY AND GENOMIC MEDICINE ALT 16 5 - 50 U/L [facility] DEPARTMENT OF PATHOLOGY AND GENOMIC MEDICINE Total bilirubin <0.2 0.0 - 1.2 [facility] DEPARTMENT OF mg/dL PATHOLOGY AND GENOMIC MEDICINE Specimen Plasma specimen Performing Organization Address City/State/Zipcode Phone Number [facility] DEPARTMENT OF PATHOLOGY AND [address] [place] [address] [facility] MEDICINE Urinalysis screen and microscopy, with reflex to culture (11/17/2017 1:33 AM CDT)Only the most recent of3 resultswithin the time period is included. Specimen site Random void [facility] DEPARTMENT OF PATHOLOGY AND GENOMIC MEDICINE Color, UA Straw [facility] DEPARTMENT OF PATHOLOGY AND GENOMIC MEDICINE Appearance, UA Clear [facility] DEPARTMENT OF PATHOLOGY AND GENOMIC MEDICINE Specific gravity, UA 1.005 1.001 - 1.035 [facility] DEPARTMENT OF PATHOLOGY AND GENOMIC MEDICINE pH, UA 6.0 5.0 - 8.5 [facility] DEPARTMENT OF PATHOLOGY AND GENOMIC MEDICINE Protein, UA Negative Negative [facility] DEPARTMENT OF PATHOLOGY AND GENOMIC MEDICINE Glucose, UA Negative Negative [facility] DEPARTMENT OF PATHOLOGY AND GENOMIC MEDICINE Ketones, UA Negative Negative [facility] DEPARTMENT OF PATHOLOGY AND GENOMIC MEDICINE Bilirubin, UA Negative Negative [facility] DEPARTMENT OF PATHOLOGY AND GENOMIC MEDICINE Blood, UA Negative Negative [facility] DEPARTMENT OF PATHOLOGY AND GENOMIC MEDICINE Nitrite, UA Negative Negative [facility] DEPARTMENT OF PATHOLOGY AND GENOMIC MEDICINE Urobilinogen, UA <2.0 <2.0 [facility] DEPARTMENT OF PATHOLOGY AND GENOMIC MEDICINE Leukocyte esterase, Trace (A) Negative [facility] DEPARTMENT OF UA PATHOLOGY AND GENOMIC MEDICINE Epithelial cells, UA 1 /HPF [facility] DEPARTMENT OF PATHOLOGY AND GENOMIC MEDICINE WBC, UA 2 (H) 0 - 1 /HPF [facility] DEPARTMENT OF PATHOLOGY AND GENOMIC MEDICINE RBC, UA 1 0 - 5 /HPF [facility] DEPARTMENT OF PATHOLOGY AND GENOMIC MEDICINE Bacteria, UA Few None seen [facility] DEPARTMENT OF PATHOLOGY AND GENOMIC MEDICINE Yeast, UA None seen [facility] DEPARTMENT OF PATHOLOGY AND GENOMIC MEDICINE Yeast with None seen [facility] DEPARTMENT OF pseudohyphae, UA PATHOLOGY AND GENOMIC MEDICINE Specimen Urine Performing Organization Address City/State/Zipcode Phone Number [facility] DEPARTMENT OF PATHOLOGY AND [address] [place] [id number] [facility] Urine drugs of abuse screen (11/17/2017 1:33 AM CDT)Only the most recent of2 resultswithin the time period is included. Amphetamine screen, Negative [facility] DEPARTMENT OF urine PATHOLOGY AND GENOMIC MEDICINE Barbiturate screen, Negative [facility] DEPARTMENT OF urine PATHOLOGY AND GENOMIC MEDICINE Benzodiazepine Negative [facility] DEPARTMENT OF screen, urine PATHOLOGY AND GENOMIC MEDICINE Cannabinoid screen, Negative [facility] DEPARTMENT OF urine PATHOLOGY AND GENOMIC MEDICINE Cocaine screen, urine Negative [facility] DEPARTMENT OF PATHOLOGY AND GENOMIC MEDICINE Methadone metabolite Negative [facility] DEPARTMENT OF (EDDP), urine PATHOLOGY AND GENOMIC MEDICINE Opiates screen, urine Negative [facility] DEPARTMENT OF PATHOLOGY AND GENOMIC MEDICINE Oxycodone screen, Negative [facility] DEPARTMENT OF urine PATHOLOGY AND GENOMIC MEDICINE Phencyclidine screen, Negative [facility] DEPARTMENT OF urine PATHOLOGY AND GENOMIC MEDICINE Tricyclic screen, Negative [facility] DEPARTMENT OF urine Comment: PATHOLOGY AND Drug screen minimum concentration of detectability GENOMIC MEDICINE Hnzpdslolbbv6483 ng/mL Barbiturates 200 ng/mL Cuinlrzntgcuneh942 ng/mL Youfpzo147 ng/mL Fezhomgnk812 ng/mL Wqekmkh749 ng/mL Kwqpfeuuc662 ng/mL Phencyclidine 25 ng/mL Gznchlhkxlwj45 ng/mL Knauldkrjk4376 ng/mL Negative test results indicates presumptive evidence of lack of clinically significant drug concentration in this urine specimen. Positive test results are presumptive evidence of clinically significant drug concentration in this urine specimen. Testing performed for medical purposes only. Specimen Urine Performing Organization Address City/[facility] Phone Number [facility] DEPARTMENT OF PATHOLOGY AND [address] [place] [address] GENOMIC MEDICINE Gram stain (11/17/2017 1:33 AM CDT) Gram stain result Rare WBC's [facility] DEPARTMENT OF No organisms seen PATHOLOGY AND GENOMIC MEDICINE Comment: Specimen Information Specimen Source: Urine Specimen Site: Random void Specimen Urine - Random void Performing Organization Address City/[facility] Phone Number [facility] DEPARTMENT OF PATHOLOGY AND [address] [place] [address] GENOMIC MEDICINE CBC with platelet and differential (11/17/2017 1:33 AM CDT)Only the most recent of3 resultswithin the time period is included. WBC 11.00 4.50 - 11.00 [facility] DEPARTMENT OF k/uL PATHOLOGY AND GENOMIC MEDICINE RBC 3.88 (L) 4.40 - 6.00 [facility] DEPARTMENT OF m/uL PATHOLOGY AND GENOMIC MEDICINE HGB 11.7 (L) 14.0 - 18.0 [facility] DEPARTMENT OF g/dL PATHOLOGY AND GENOMIC MEDICINE HCT 36.1 (L) 41.0 - 51.0 % [facility] DEPARTMENT OF PATHOLOGY AND GENOMIC MEDICINE MCV 93.0 82.0 - 100.0 [facility] DEPARTMENT OF fL PATHOLOGY AND GENOMIC MEDICINE MCH 30.2 27.0 - 34.0 [facility] DEPARTMENT OF pg PATHOLOGY AND GENOMIC MEDICINE MCHC 32.4 31.0 - 37.0 [facility] DEPARTMENT OF g/dL PATHOLOGY AND GENOMIC MEDICINE RDW - SD 48.8 37.0 - 55.0 [facility] DEPARTMENT OF fL PATHOLOGY AND GENOMIC MEDICINE MPV 9.5 8.8 - 13.2 [facility] DEPARTMENT OF PATHOLOGY AND GENOMIC MEDICINE Platelet count 240 150 - 400 [facility] DEPARTMENT OF k/uL PATHOLOGY AND GENOMIC MEDICINE Nucleated RBC 0.00 /100 WBC [facility] DEPARTMENT OF PATHOLOGY AND GENOMIC MEDICINE Neutrophils 50.8 39.0 - 69.0 % [facility] DEPARTMENT OF PATHOLOGY AND GENOMIC MEDICINE Lymphocytes 37.5 25.0 - 45.0 % [facility] DEPARTMENT OF PATHOLOGY AND GENOMIC MEDICINE Monocytes 6.3 0.0 - 10.0 % [facility] DEPARTMENT OF PATHOLOGY AND GENOMIC MEDICINE Eosinophils 4.4 0.0 - 5.0 % [facility] DEPARTMENT OF PATHOLOGY AND GENOMIC MEDICINE Basophils 0.4 0.0 - 1.0 % [facility] DEPARTMENT OF PATHOLOGY AND GENOMIC MEDICINE Immature granulocytes 0.6Comment: 0.0 - 1.0 % [facility] DEPARTMENT OF "Immature PATHOLOGY AND granulocytes" GENOMIC MEDICINE (promyelocytes , myelocytes, metamyelocytes ) Specimen Blood Performing Organization Address City/[facility] Phone Number [facility] DEPARTMENT OF PATHOLOGY AND [address] [place] [address] Urine culture (11/17/2017 1:33 AM CDT)Only the most recent of3 resultswithin the time period is included. Urine culture No growth after 2 days. [facility] DEPARTMENT OF isolate Comment: PATHOLOGY AND Specimen Information [facility] Specimen Source: Urine Specimen Site: Random void Specimen Urine - Random void Performing Organization Address City/[facility] Phone Number [facility] DEPARTMENT OF PATHOLOGY AND [address] [place] [id number] [facility] US Gallbladder (09/29/2017 3:20 PM CDT)Only the most recent of2 resultswithin the time period is included. Specimen Narrative Performed At EXAMINATION:US GALLBLADDER RADIANT CLINICAL HISTORY:ruq pain COMPARISON:None. FINDINGS: Gallbladder: 1.5 cm cholelith noted within the neck of the gallbladder. However, there is no pericholecystic fluid or gallbladder wall thickening. CBD:5 mm , within normal limits. Portal vein: The portal vein demonstrates normal hepatopetal flow. The portal vein measures 1.1 cm, within normal limits. IMPRESSION: Cholelithiasis. [id number] Procedure Note Hm Interface, Radiology Results Incoming [...] 1.1 cm, within normal limits. IMPRESSION: Cholelithiasis. [id number] Performing Organization Address City/[facility]/Zipcode Phone Number [facility] [address] [place] [address] Lipase level (09/29/2017 2:45 PM CDT)Only the most recent of2 resultswithin the time period is included. Lipase 56 13 - 60 U/L [facility] DEPARTMENT OF PATHOLOGY AND GENOMIC MEDICINE Specimen Plasma specimen Performing Organization Address City/[facility]/Zipcode Phone Number [facility] DEPARTMENT OF PATHOLOGY AND [address] [place] [phone] GENOMIC MEDICINE ECG ED Preliminary Interpretation - NOT AN ORDER (09/29/2017 2:33 PM CDT) Narrative Performed At Kristi Flores MD 10/01/20179:51 AM ECG ED Preliminary Interpretation - Not an Order Performed by: KRISTI FLORES Authorized by: KRISTI FLORES ECG reviewed by ED Physician in the absence of a cook dessert: yes Interpretation: Interpretation: abnormal Rate: ECG rate:70 ECG rate assessment: normal Rhythm: Rhythm: sinus rhythm QRS: QRS axis:Left QRS intervals:Normal ST segments: ST segments:Normal CT Renal Stone Protocol (09/26/2017 1:46 AM CDT) Specimen Narrative Performed At Examination:CT RENAL STONE PROTOCOL [facility] Clinical History: R flank painhematuria Comparison: None. [...] bowel seen with adynamic ileus or gastroenteritis. [facility]-[id number] Procedure Note Interface, Radiology Results Incoming - 09/26/2017 2:05 [...] bowel seen with adynamic ileus or gastroenteritis. [facility]-[id number] Performing Organization Address City/State/Zipcode Phone Number [facility] [address] [place] [address] after 08/12/2017 Insurance Payer Benefit Plan / Subscriber ID Effective Dates Phone Address Type Group MEDICARE MEDICARE PART A xxxxxxxxxx 2002-Present [place], [place] Medicare AND B [address] [place] (Home) [place] [id number] Advance Directives Patient has advance care planning documents on file. For more information, please contact:Babatunde Hernandez[address] [place] [address]
--- OUTSIDE RECORDS SUMMARY | 2018-08-13 17:27 | XMS REPORT | Continuity of Care Document ---
:1965 Author Organization Interface Problems Problem Status Onset Classification Date Comments Source Date Reported Calculus of 02/13/20 06/20/2018 [facility] gallbladder with 18 acute and chronic cholecystitis without obstruction Acute kidney 01/14/20 07/24/2018 [facility] failure with 18 tubular necrosis (L) SIDE PAIN Active 01/01/20 [facility] 18 Postprocedural 12/30/19 07/04/2018 [facility] hematoma of a 18 digestive system organ or structure following a digestive system procedure FLANK PAIN Active 12/13/19 [facility] 18 CP Active 11/30/19 [facility] 18 ABDOMINAL PAIN Active 11/27/19 [facility] 18 Acute kidney Active 06/19/19 Finding 06/19/[address] [facility] superimposed on [place] CKD Right leg DVT Active 06/19/19 Finding 06/19/[address] [facility] [place] Chest pain Active 06/19/19 Finding 06/19/[address] [facility] [place] HTN Active 06/19/19 Finding 06/19/[address] [facility] [place] Acute kidney Active 06/19/19 Finding 06/19/[address] [facility] [facility] - superimposed on [place] chronic kidney disease Hypertension Active 06/19/19 Finding 06/19/[address] [facility] [place] Active 06/19/19 Finding 06/19/[address] [facility] [facility] [place] Deep vein Active 06/19/19 Finding 06/19/[address] [facility] [address] thrombosis of 18 [facility] - right lower [place] extremity PAD Active 06/03/19 Finding 06/19/[address] [facility] [facility] [place] Acute embolism 06/01/19 08/30/2017 [facility] and thrombosis of 18 Medical right femoral Center vein Acute deep vein 05/24/19 08/30/2017 [facility] thrombosis of 18 Medical distal lower Center extremity LEG PAIN Active 05/24/19 [facility] 18 [facility] Center Acute renal Active Finding 06/19/[address] [facility] [facility] [place] Anemia Active Finding 06/19/[address] [facility] [place] Chronic renal Active Finding 06/19/[address] [facility] [facility] [place] Bipolar affective Active Finding 06/19/[address] [facility] [facility] [place] Chronic kidney Active Finding 06/19/[address] [facility] [facility] [place] Acute embolism 08/30/2017 [place] and thrombosis of Medical right popliteal Center vein Chronic kidney 08/30/2017 [facility] disease, Medical unspecified Center [place] Active Problem 08/30/[address] [facility] [address] disease [place] - [place],[facility] Suicidal 07/04/2018 [facility] ideations [place] 07/24/2018 [facility] disease Chronic embolism 07/04/2018 [place] and thrombosis of unspecified deep veins of unspecified lower extremity Acute kidney 07/04/2018 [facility] failure, unspecified Other ascites 07/04/2018 [facility] Other infectious 07/04/2018 [facility] disease Right upper 07/04/2018 [facility] quadrant pain Cyst of kidney, 07/04/2018 [facility] acquired Other surgical 07/04/2018 [facility] procedures as the cause of abnormal reaction of the patient, or of later complication, without mention of misadventure at the time of the procedure Chronic kidney 07/24/2018 [facility] disease, stage 3 Nicotine 07/24/2018 [facility] dependence, cigarettes, uncomplicated Bipolar disorder, 07/24/2018 [facility] unspecified Gastro-esophageal 07/24/2018 [facility] reflux disease without esophagitis Diaphragmatic 07/04/2018 [facility] hernia without obstruction or gangrene Acquired absence 07/24/2018 [facility] of other specified parts of digestive tract medical terminologist use of 07/24/2018 [facility] anticoagulants Gallstones Active Problem 07/24/2018 [facility] Bipolar disorder Active Problem 07/24/[address] [facility] [address] [place] [facility] [place] [place] Calculus of Active Problem 07/24/2018 [facility] gallbladder with chronic cholecystitis with obstruction Calculus of Active Problem 07/24/2018 [facility] gallbladder with chronic cholecystitis without obstruction CKD (<span Active Problem 07/24/2018 [facility] ID="[id number]" Medical >Confirmed</span> Center, ) [place] Liver dysfunction Active Problem 07/24/2018 [facility] [place] DVT (<span Active Problem 07/24/2018 [facility] ID="[id number]" >Confirmed</span> ) [place] Active Problem 07/24/[address] [facility] [address] crystal [place] [facility] Chronic embolism 06/20/2018 [facility] and thrombosis of unspecified deep veins of right lower extremity Acute gastritis 06/20/2018 [facility] without bleeding Constipation, 06/17/2018 [facility] unspecified Hyperkalemia 06/20/2018 [facility] Acidosis 07/24/2018 [facility] Hypertensive 07/24/2018 [facility] chronic kidney disease with stage 1 through stage 4 chronic kidney disease, or unspecified chronic kidney disease Hypocalcemia 07/24/2018 [facility] Anemia, 07/24/2018 [facility] unspecified Dehydration 07/24/2018 [facility] Hypovolemia 07/24/2018 [facility] Hematuria, 07/24/2018 [facility] unspecified Personal history 07/24/2018 [facility] of other venous thrombosis and embolism UNSPECIFIED Active [facility] KIDNEY FAILURE ACUTE Active [facility] CHOLECYSTITIS CALCULUS OF Active [facility] GALLBLADDER W CHRONIC CHOLEC OTHER ASCITES Active [facility] OTHER SPECIFIED Active [facility] DISORDERS OF PERITONEUM ACUTE KIDNEY Active [facility] FAILURE, UNSPECIFIED Medications Medication Details Route Status Patient Ordering Order Source Instructions Provider Date Flomax 0.4 mg, 1 cap, Inactive Route: PO, Drug 2017 [facility] form: CAP, After Breakfast, Dosing Weight 84.6, kg, Start date: 01/04/18 8:30:00 CDT, Duration: 30 day, Stop date: 02/02/18 8:30:00 CSTNotes: (Same As: Flomax) "Do Not Crush" apixaban 2.5 MG 2.5 mg=1 tab, Active Oral Tablet PO, BID, # [address] [facility] [Eliquis] tab, 0 Refill(s), Pharmacy: [facility]/pharmacy #[id number] Folic Acid 1 MG 1 mg=1 tab, PO, Active Oral Tablet Daily, # [address] [facility] tab, 3 Refill(s), Pharmacy: [facility]/pharmacy #[id number] oxybutynin 5 mg 5 mg=1 tab, PO, Active oral tablet, Daily, # [address] [facility] extended release tab, 1 Refill(s), Pharmacy: [facility]/pharmacy #[id number] ferrous sulfate 325 mg=1 tab, Active 325 MG Oral PO, BID, # [address] [facility] Tablet tab, 2 Refill(s), Pharmacy: [facility]/pharmacy #[id number] QUEtiapine 100 300 mg=3 tab, Active mg oral tablet PO, Bedtime, 0 2017 Refill(s) Potassium 40 mEq, 2 pkt, Inactive Chloride 1.33 Route: PO, Drug 2017 [facility] MEQ/ML Oral form: PDR/REC, Solution ONCE, Dosing Weight 84.6, kg, Start date: 01/03/18 17:41:00 CDT, Stop date: 01/03/18 17:41:00 CDTNotes: (Same as: K-Tania) With food and full glass of water Acetaminophen 1 tab, Route: No Longer 300 MG / Codeine PO, Drug Form: Active 2017 [facility] Phosphate 30 MG TAB, Dosing Oral Tablet Weight 84.6, [Tylenol with kg, Q6H, PRN Codeine #3] Pain Score 4-6, Start date: 01/03/18 15:02:00 CDT, Duration: 30 day, Stop date: 02/02/18 15:01:00 CSTNotes: Do not exceed 4gm/day of acetaminophen. (Same as: Tylenol with Codeine # 3) ferrous sulfate 325 mg, 1 tab, No Longer Route: PO, Drug Active 2017 [facility] form: TAB, TID, Dosing Weight 84.6, kg, Priority: NOW, Start date: 01/03/18 9:41:00 CDT, Duration: 30 day, Stop date: 02/02/18 6:00:00 CSTNotes: Give with food. iron elemental 95ev=475cg as ferrous sulfate Dose=___mg elemental iron Folic Acid 1 mg, 0.2 mL, No Longer Route: IVPB, Active 2017 [facility] Drug form: INJ, Daily, Dosing Weight 84.6, kg, Priority: NOW, Start date: 01/03/18 9:39:00 CDT, Duration: 30 day, Stop date: 02/02/18 9:00:00 CSTNotes: (Same as: Folvite) Seroquel 300 mg, 3 tab, No Longer Route: PO, Drug Active 2017 [facility] form: TAB, Bedtime, Dosing Weight 86.364, kg, Start date: 01/01/18 21:00:00 CDT, Duration: 30 day, Stop date: 01/30/18 21:00:00 CSTNotes: (Same as: SEROquel) zolpidem 5 mg, 1 tab, No Longer Route: PO, Drug Active 2017 [facility] form: TAB, Bedtime, Dosing Weight 84.6, kg, Start date: 01/01/18 21:00:00 CDT, Duration: 30 day, Stop date: 01/30/18 21:00:00 CSTNotes: (Same As: Ambien) Nicotine 14 mg, 1 patch, No Longer Route: TOP, Active 2017 [facility] Drug form: ERFILM, Daily, Dosing Weight 84.6, kg, Priority: NOW, Start date: 01/01/18 15:42:00 CDT, Duration: 30 day, Stop date: 01/31/18 9:00:00 CSTNotes: (Same as: Habitrol) "Remove old patch before application of new patch" WASTE: F/P - P Waste Black; E - P Waste Black sodium 850 mL, Rate: Inactive bicarbonate 150 100 ml/hr, 2017 mEq + Dextrose Infuse over: 10 5% in Water IV hr, Route: IV, 850 mL Dosing Weight 84.6 kg, Total Volume: 1,000, Start date: 01/01/18 12:44:00 CDT, Duration: 1 doses or times, Stop date: 01/01/18 22:43:00 CDT, 2.06, m2Afdno: (sodium bicarb 8.4% (1 mEq/ml) 50 ml VL) D5W 1,000 mL + 1,000 mL, Rate: No Longer sodium acetate 2 125 ml/hr, Active 2017 mEq/mL Infuse over: intravenous 8.6 hr, Route: solution 150 mEq IV, Dosing Weight 84.6 kg, Total Volume: 1,075, Start date: 01/01/18 11:55:00 CDT, Duration: 30 day, Stop date: 01/31/18 11:54:00 SUPERCHARGER REPAIR SUPERVISOR, 2.06, m2 sodium 850 mL, Rate: Inactive bicarbonate 150 100 ml/hr, 2017 [facility] mEq + Dextrose Infuse over: 10 5% in Water IV hr, Route: IV, 850 mL Dosing Weight 84.6 kg, Total Volume: 1,000, Start date: 01/01/18 11:00:00 CDT, Duration: 30 day, Stop date: 01/31/18 10:59:00 SUPERCHARGER REPAIR SUPERVISOR, 2.06, p4Yiqum: (sodium bicarb 8.4% (1 mEq/ml) 50 ml VL) Protonix 40 mg, 1 tab, No Longer 01/01/ Route: PO, Drug Active 2017 [facility] form: ECTAB, Daily, Dosing Weight 84.6, kg, Start date: 01/01/18 11:00:00 CDT, Duration: 30 day, Stop date: 01/31/18 9:00:00 CSTNotes: Tablet should not be chewed or crushed. (Same as: Protonix) Lexapro 10 mg, 1 tab, No Longer 01/01/ MH Route: PO, Drug Active 2017 [facility] form: TAB, Daily, Dosing Weight 84.6, kg, Start date: 01/01/18 11:00:00 CDT, Duration: 30 day, Stop date: 01/31/18 9:00:00 CSTNotes: (Same as: Lexapro) Flagyl 500 mg, 100 mL, No Longer 01/01/ Route: IVPB, Active 2017 [facility] Drug form: INJ, ABXQ8H, Dosing Weight 84.6, kg, Start date: 01/01/18 10:00:00 CDT, Duration: 7 day, Stop date: 01/08/18 2:00:00 CDT, ABX Indication: Infectious DiarrheaNotes: (Same as: Flagyl) Avoid alcohol. Trazodone 100 mg, 1 tab, No Longer 01/01/ MH Route: PO, Drug Active 2017 [facility] form: TAB, Bedtime, Dosing Weight 84.6, kg, PRN Sleep, Start date: 01/01/18 9:39:00 CDT, Duration: 30 day, Stop date: 01/31/18 9:38:00 CSTNotes: (Same As: Desyrel) sodium 1,000 mL, Rate: Inactive bicarbonate 8.4% 100 ml/hr, 2017 additive 150 mEq Infuse over: 10 + D5W 1000 mL hr, Route: IV, Dosing Weight 84.6 kg, Total Volume: 1,000, Start date: 01/01/18 9:10:00 CDT, Duration: 30 day, Stop date: 01/31/18 9:09:00 SUPERCHARGER REPAIR SUPERVISOR, 2.06, m2 Eliquis 5 mg, 1 tab, No Longer 01/01/ MH Route: PO, Drug Active 2017 [facility] form: TAB, Q12H, Dosing Weight 86.364, kg, Start date: 01/01/18 9:00:00 CDT, Duration: 30 day, Stop date: 01/30/18 21:00:00 CSTNotes: Same as: Eliquis Buspirone 15 mg, 3 tab, No Longer MH Route: PO, Drug Active 2017 [facility] form: TAB, Daily, Dosing Weight 86.364, kg, Start date: 01/01/18 9:00:00 CDT, Duration: 30 day, Stop date: 01/30/18 9:00:00 CSTNotes: (Same As: BuSpar) Lisinopril 5 mg, 1 tab, Inactive Route: PO, Drug 2017 [facility] form: TAB, Daily, Dosing Weight 86.364, kg, Start date: 01/01/18 9:00:00 CDT, Duration: 30 day, Stop date: 01/30/18 9:00:00 CSTNotes: (Same as: Prinivil, Zestril) Trazodone 50 mg, 1 tab, No Longer MH Hydrochloride 50 Route: PO, Drug Active 2017 [facility] Oral Tablet form: TAB, Bedtime, Dosing Weight 86.364, kg, PRN Insomnia, Start date: 12/31/17 23:35:00 CDT, Duration: 1 day, Stop date: 01/01/18 23:34:00 CDTNotes: (Same As: Desyrel) Melatonin 3 mg, 1 tab, No Longer 01/01/ MH Route: PO, Drug Active 2017 [facility] form: TAB, Bedtime, Dosing Weight 86.364, kg, PRN Insomnia, Start date: 12/31/17 23:32:00 CDT, Duration: 30 day, Stop date: 01/30/18 23:31:00 CSTNotes: (Same as: Melatonin) Oxycodone 5 mg, 1 tab, No Longer Hydrochloride 5 Route: PO, Drug Active 2018 [facility] Oral Tablet form: TAB, Q4H, Dosing Weight 86.364, kg, PRN Pain Score 4-6, Start date: 12/31/17 23:32:00 CDT, Duration: 30 day, Stop date: 01/30/18 23:31:00 CSTNotes: (Same as: Roxicodone) Acetaminophen 650 mg, 2 tab, No Longer Route: PO, Drug Active 2018 [facility] form: TAB, Q6H, Dosing Weight 86.364, kg, PRN Pain 1-3/Temp > 100.4 F, Start date: 12/31/17 23:32:00 CDT, Duration: 30 day, Stop date: 01/30/18 23:31:00 CSTNotes: Do not exceed 4 gm/day. (Same as: Tylenol) Morphine 2 mg, 0.5 mL, No Longer Route: IVP, Active 2017 [facility] Drug form: SOLN, Q4H, Dosing Weight 86.364, kg, PRN Pain Score 7-10, Start date: 12/31/17 23:32:00 CDT, Duration: 30 day, Stop date: 01/30/18 23:31:00 CSTNotes: (Same as:MORPhine Sulfate) Glucagon 1 mg, Route: No Longer 01/01/ IM, Drug form: Active 2018 [facility] PDR/INJ, PRN, Dosing Weight 86.364, kg, PRN Blood Glucose Results, Start date: 12/31/17 23:30:00 CDT, Duration: 30 day, Stop date: 01/30/18 22:29:00 SUPERCHARGER REPAIR SUPERVISOR Dextrose 50% 25 gm, 50 mL, No Longer Syringe Route: IVP, Active 2017 [facility] Drug Form: INJ, Dosing Weight 86.364, kg, PRN, PRN Blood Glucose Results, Start date: 12/31/17 23:30:00 CDT, Duration: 30 day, Stop date: 01/30/18 22:29:00 SUPERCHARGER REPAIR SUPERVISOR Ondansetron 4 mg, 2 mL, No Longer Route: IVP, Active 2017 [facility] Drug form: INJ, Q8H, Dosing Weight 86.364, kg, PRN Nausea & Vomiting, Start date: 12/31/17 23:30:00 CDT, Duration: 30 day, Stop date: 01/30/18 23:29:00 CSTNotes: (Same as: Zofran) MEDICATION WASTE Product Size: 4 mg Product Wasted: ___ mg normal saline 1,000 mL, Rate: No Longer 10/ MH 0.9% IV 1,000 mL 150 ml/hr, Active 2017 [facility] Infuse over: 6.7 hr, Route: IV, Dosing Weight 86.364 kg, Total Volume: 1,000, Start date: 12/31/17 23:30:00 CDT, Duration: 30 day, Stop date: 01/30/18 23:29:00 SUPERCHARGER REPAIR SUPERVISOR, 2.09, m2 NS (Bolus) IV 500 mL, 500 Inactive 10/20/ MH ml/hr, Infuse 2017 [facility] Over: 1 hr, Route: IV, 500, Drug form: INJ, ONCE, Priority: STAT, Dosing Weight 86.364 kg, Start date: 12/31/17 21:05:00 CDT, Stop date: 12/31/17 21:05:00 CDT Phenergan 25 mg, 1 mL, Inactive MH Route: IVPB, 2017 [facility] Drug form: INJ, ONCE, Dosing Weight 86.364, kg, Priority: STAT, Start date: 12/31/17 21:04:00 CDT, Stop date: 12/31/17 21:04:00 CDTNotes: Do not give IV push. (Same as: Phenergan) Tylenol 975 mg, 3 tab, Inactive 01/01/ MH Route: PO, Drug 2017 [facility] form: TAB, ONCE, Dosing Weight 86.364, kg, Priority: STAT, Start date: 12/31/17 21:04:00 CDT, Stop date: 12/31/17 21:04:00 CDTNotes: Do not exceed 4 gm/day. (Same as: Tylenol) Saline Flush 10 mL, Route: No Longer 1020/ MH 0.9% IVP, Drug Form: Active 2017 [facility] INJ, Dosing Weight 86.364, kg, PRN, PRN Line Flush, Start date: 12/31/17 19:29:00 CDT, Duration: 30 day, Stop date: 01/30/18 18:28:00 CSTNotes: (Same as: BD Posiflush) Tramadol 50 mg, 1 tab, No Longer Route: PO, Drug Active 2017 [facility] form: TAB, Q4H, Dosing Weight 83.636, kg, PRN Pain Score 4-6, Start date: 12/14/17 10:27:00 CDT, Duration: 30 day, Stop date: 01/13/18 10:26:00 CDTNotes: Not to exceed 400mg/day. (Same As: Ultram) Protonix 40 mg, 1 tab, No Longer Route: PO, Drug Active 2017 [facility] form: ECTAB, Daily, Dosing Weight 83.636, kg, Start date: 12/13/17 16:30:00 CDT, Duration: 30 day, Stop date: 01/11/18 16:30:00 CDTNotes: Tablet should not be chewed or crushed. (Same as: Protonix) Lexapro 20 mg, 2 tab, No Longer Route: PO, Drug Active 2017 [facility] form: TAB, Daily, Dosing Weight 83.636, kg, Start date: 12/13/17 9:00:00 CDT, Duration: 30 day, Stop date: 01/11/18 9:00:00 CDTNotes: (Same as: Lexapro) Buspar 15 mg, 3 tab, No Longer Route: PO, Drug Active 2017 [facility] form: TAB, Daily, Dosing Weight 83.636, kg, Start date: 12/13/17 9:00:00 CDT, Duration: 30 day, Stop date: 01/11/18 9:00:00 CDTNotes: (Same As: BuSpar) influenza virus 0.5 mL, Route: No Longer vaccine, IM, Drug Form: 2017 [facility] inactivated SUSP, ONCALL, Start date: 12/13/17 6:53:36 CDT, Duration: 30 day, Stop date: 01/12/18 6:52:00 CDTNotes: (Same as: Fluzone Quadrivalent, Fluarix Quadrivalent) For 3 years of age and older (0.5 mL IM) Shake well before use zolpidem 5 mg, 1 tab, No Longer Route: PO, Drug Active 2017 [facility] form: TAB, Bedtime, Dosing Weight 83.636, kg, Start date: 12/12/17 21:00:00 CDT, Duration: 30 day, Stop date: 01/10/18 21:00:00 CDTNotes: (Same As: Masoud) Seroquel 400 mg, 4 tab, No Longer Route: PO, Drug Active 2017 [facility] form: TAB, Bedtime, Dosing Weight 83.636, kg, Start date: 12/12/17 21:00:00 CDT, Duration: 30 day, Stop date: 01/10/18 21:00:00 CDTNotes: (Same as: SEROquel) Metronidazole 500 mg, 100 mL, Inactive Route: IVPB, 2017 [facility] Drug form: INJ, ONCE, Dosing Weight 83.636, kg, Priority: STAT, Start date: 12/12/17 19:27:00 CDT, Stop date: 12/12/17 19:27:00 CDT, ABX Indication: Other (specify in Comments)Notes: (Same as: Flagmary) Avoid alcohol. cefepime 1 gm, Route: Inactive IVPB, ONCE, 2017 [facility] Dosing Weight 83.636, kg, (CrCl >/=50 ml/min), Priority: STAT, Start date: 12/12/17 19:26:00 CDT, Stop date: 12/12/17 19:26:00 CDT, ABX Indication: Other (specify in Comments)Notes: (Same As: Maxipime) MEDICATION WASTE Product Size: 1000 mg Product Wasted: ___ mg Sodium Chloride 1,000 mL, Rate: No Longer 0.9% IV 1,000 mL 100 ml/hr, Active 2017 [facility] Infuse over: 10 hr, Route: IV, Dosing Weight 83.636 kg, Total Volume: 1,000, Start date: 12/12/17 18:44:00 CDT, Duration: 30 day, Stop date: 01/11/18 18:43:00 CDT, 2.05, m2 Trazodone 100 mg, 1 tab, No Longer Route: PO, Drug Active 2017 [facility] form: TAB, Bedtime, Dosing Weight 83.636, kg, PRN Insomnia, Start date: 12/12/17 18:44:00 CDT, Duration: 30 day, Stop date: 01/11/18 18:43:00 CDTNotes: (Same As: Desyrel) Morphine 2 mg, 0.5 mL, No Longer Route: IVP, Active 2017 [facility] Drug form: SOLN, Q4H, Dosing Weight 83.636, kg, PRN Pain Score 7-10, Start date: 12/12/17 18:37:00 CDT, Duration: 30 day, Stop date: 01/11/18 18:36:00 CDTNotes: (Same as:MORPhine Sulfate) Ondansetron 4 mg, 2 mL, No Longer Route: IVP, Active 2017 [facility] Drug form: INJ, Q6H, Dosing Weight 83.636, kg, PRN Nausea & Vomiting, Start date: 12/12/17 18:37:00 CDT, Duration: 30 day, Stop date: 01/11/18 18:36:00 CDTNotes: (Same as: Liz) MEDICATION WASTE Product Size: 4 mg Product Wasted: ___ mg Acetaminophen 650 mg, 2 tab, No Longer Route: PO, Drug Active 2017 [facility] form: TAB, Q4H, Dosing Weight 83.636, kg, PRN Pain 1-3/Temp > 100.4 F, Start date: 12/12/17 18:37:00 CDT, Duration: 30 day, Stop date: 01/11/18 18:36:00 CDTNotes: Do not exceed 4 gm/day. (Same as: Tylenol) NS (Bolus) IV 1,000 mL, 2,000 Inactive ml/hr, Infuse 2017 [facility] Over: 1 hr, Route: IV, ONCE, Priority: STAT, Dosing Weight 83.636 kg, Start date: 12/12/17 17:31:00 CDT, Stop date: 12/12/17 17:31:00 CDT Acetaminophen 2 tab, PO, Q6H, Active 300 MG / Codeine PRN Pain, # [address] [facility] Phosphate 30 MG tab, 0 Oral Tablet Refill(s) [Tylenol with Codeine #3] pantoprazole 40 40 mg=1 tab, Active MG Enteric PO, Daily, # [address] [facility] Coated Tablet tab, 0 [Protonix] Refill(s) Escitalopram 10 10 mg=1 tab, Active MG Oral Tablet PO, Daily, # [address] [facility] [Lexapro] tab, 0 Refill(s) Escitalopram 20 20 mg=1 tab, No Longer MG Oral Tablet PO, Daily, # [address] [facility] [Lexapro] tab, 0 Refill(s) zolpidem 5 mg 5 mg=1 tab, PO, Active oral tablet Bedtime, [address] [facility] Refill(s) Ondansetron 4 mg, Route: Inactive IVP, Drug form: 2017 [facility] INJ, ONCE, Dosing Weight 83.636, kg, Priority: STAT, Start date: 12/12/17 16:33:00 CDT, Stop date: 12/12/17 16:33:00 CDT Morphine 4 mg, Route: Inactive IVP, ONCE, 2017 [facility] Dosing Weight 83.636, kg, Priority: STAT, Start date: 12/12/17 16:33:00 CDT, Stop date: 12/12/17 16:33:00 CDT Saline Flush 10 mL, Route: No Longer 0.9% IVP, Drug Form: Active 2017 [facility] INJ, Dosing Weight 83.636, kg, PRN, PRN Line Flush, Start date: 12/12/17 16:13:00 CDT, Duration: 1 day, Stop date: 12/13/17 16:12:00 CDTNotes: (Same as: BD Posiflush) Seroquel 400 mg, 1 tab, Inactive Route: PO, Drug 2017 [facility] form: TAB, Bedtime, Dosing Weight 90, kg, Start date: 12/01/17 21:00:00 CDT, Duration: 30 day, Stop date: 12/30/17 21:00:00 CDTNotes: (Same as: SEROquel) Acetaminophen 2 tab, PO, Q6H, No Longer 300 MG / Codeine PRN Pain Score Active 2017 [facility] Phosphate 30 MG 6-10, X 7 day, Oral Tablet # 50 tab, 0 [Tylenol with Refill(s) Codeine #3] Lisinopril 5 mg, 1 tab, Inactive Route: PO, Drug 2017 [facility] form: TAB, BID, Dosing Weight 90, kg, Start date: 12/01/17 9:00:00 CDT, Duration: 30 day, Stop date: 12/30/17 21:00:00 CDTNotes: (Same as: Prinivil, Zestril) Nexium 40 mg, Route: Inactive PO, Daily, 2017 [facility] Dosing Weight 90, kg, Start date: 12/01/17 9:00:00 CDT, Duration: 30 day, Stop date: 12/30/17 9:00:00 CDT Buspar 15 mg, 3 tab, Inactive Route: PO, Drug 2017 [facility] form: TAB, BID, Dosing Weight 90, kg, Start date: 12/01/17 9:00:00 CDT, Duration: 30 day, Stop date: 12/30/17 21:00:00 CDTNotes: (Same As: BuSpar) Acetaminophen 1 tab, Route: Inactive 300 MG / Codeine PO, Drug Form: 2017 [facility] Phosphate 30 MG TAB, Dosing Oral Tablet Weight 90, kg, [Tylenol with Q6H, PRN Pain Codeine #3] Score 1-3, Start date: 12/01/17 8:35:00 CDT, Duration: 30 day, Stop date: 12/31/17 8:34:00 CDTNotes: Do not exceed 4gm/day of acetaminophen. (Same as: Tylenol with Codeine # 3) glycopyrrolate Route: IV, Drug Inactive (ANES) form: INJ, 2017 [facility] ONCE, Stop date: 11/30/17 14:32:00 CDT neostigmine Route: IV, Drug Inactive (ANES) form: INJ, 2017 ONCE, Stop date: 11/30/17 14:32:00 CDT ondansetron Route: IV, Drug Inactive (ANES) form: INJ, 2017 ONCE, Stop date: 11/30/17 14:32:00 CDT ePHEDrine (ANES) Route: IV, Drug Inactive form: INJ, 2017 ONCE, Stop date: 11/30/17 14:04:00 CDT fentaNYL (ANES) Route: IV, Drug Inactive form: INJ, 2017 ONCE, Stop date: 11/30/17 13:59:00 CDT lidocaine (ANES) Route: IV, Drug Inactive form: INJ, 2017 ONCE, Stop date: 11/30/17 13:59:00 CDT morphine Sulfate Route: IV, Drug Inactive (ANES) form: INJ, 2017 ONCE, Stop date: 11/30/17 13:59:00 CDT midazolam (ANES) Route: IV, Drug Inactive form: SOLN, 2017 ONCE, Stop date: 11/30/17 13:59:00 CDT propofol (ANES) Route: IV, Drug Inactive form: INJ, 2017 ONCE, Stop date: 11/30/17 13:59:00 CDT dexamethasone Route: IV, Drug Inactive (ANES) form: INJ, 2017 ONCE, Stop date: 11/30/17 13:59:00 CDT rocuronium Route: IV, Drug Inactive (ANES) form: INJ, 2017 ONCE, Stop date: 11/30/17 13:59:00 CDT Lactated Ringers Route: IV, Inactive Injection IV Total Volume: 2017 (ANES) 1000 mL 1,000, Start date: 11/30/17 12:44:00 CDT, Stop date: 11/30/17 13:44:00 CDT Ondansetron 4 mg, 2 mL, No Longer Route: IVP, Active 2017 [facility] Drug form: INJ, ONCE, Dosing Weight 90, kg, PRN Nausea & Vomiting, Start date: 11/30/17 12:36:00 CDTNotes: (Same as: Liz) MEDICATION WASTE Product Size: 4 mg Product Wasted: ___ mg Naloxone 0.4 mg, 1 mL, No Longer Route: IVP, 2017 [facility] Drug form: INJ, Q2MIN, Dosing Weight 90, kg, PRN Narcotic Reversal, Start date: 11/30/17 12:36:00 CDT, Duration: 8 doses or times, Stop date: 12/01/17 0:00:00 CDTNotes: Same as Narcan Flumazenil 0.2 mg, 2 mL, No Longer Route: IVP, 2017 [facility] Drug form: INJ, PRN, Dosing Weight 90, kg, PRN Benzodiazepine Reversal, Initial dose, Start date: 11/30/17 12:36:00 CDT, Duration: 12 hr, Stop date: 12/01/17 0:35:00 CDTNotes: (Same as: Romazicon) Morphine 2 mg, 1 mL, No Longer Route: IVP, 2017 [facility] Drug form: INJ, Q5Min, Dosing Weight 90, kg, PRN Pain Score 4-6, Start date: 11/30/17 12:36:00 CDT, Duration: 5 doses or times, Stop date: 12/01/17 0:00:00 CDTNotes: (Same as:MORPhine Sulfate) Hydromorphone 0.5 mg, 0.5 mL, No Longer Route: IV, 2017 [facility] Drug form: INJ, Q5Min, Dosing Weight 90, kg, PRN Pain Score 7-10, Start date: 11/30/17 12:36:00 CDT, Duration: 4 doses or times, Stop date: 12/01/17 0:00:00 CDTNotes: Same as: Dilaudid Hydralazine 10 mg, 0.5 mL, No Longer Route: IVP, 2017 [facility] Drug form: INJ, Q20Min, Dosing Weight 90, kg, PRN Elevated BP, Start date: 11/30/17 12:36:00 CDT, Duration: 2 doses or times, Stop date: 12/01/17 0:00:00 CDTNotes: (Same as: Apresoline) Push over 5 minutes Metoprolol 1 mg, 1 mL, No Longer Route: IVP, 2017 [facility] Drug form: INJ, Q5Min, Dosing Weight 90, kg, PRN Other -See Comment, Start date: 11/30/17 12:36:00 CDT, Duration: 5 doses or times, Stop date: 12/01/17 0:00:00 CDTNotes: (Same as: Lopressor) Push over 2 minutes Calcium Chloride 1,000 mL, Rate: No Longer 0.0014 MEQ/ML / 25 ml/hr, 2017 [facility] Potassium Infuse over: 40 Chloride 0.004 hr, Route: IV, MEQ/ML / Sodium Dosing Weight Chloride 0.103 90 kg, Total MEQ/ML / Sodium Volume: 1,000, Lactate 0.028 Start date: MEQ/ML 11/30/17 Injectable 12:33:00 CDT, Solution Stop date: 12/01/17 9:57:00 CDT, 2.12, m2 Lactated Ringers 1,000 mL, Rate: No Longer IV 1,000 mL 40 ml/hr, 2017 [facility] Infuse over: 25 hr, Route: IV, Dosing Weight 90 kg, Total Volume: 1,000, Start date: 11/30/17 12:22:00 CDT, Stop date: 12/01/17 9:57:00 CDT, 2.12, m2 Pepcid 20 mg, 2 mL, No Longer Route: IVP, 2017 [facility] Drug form: INJ, ONCE, Dosing Weight 90, kg, Start date: 11/29/17 23:09:00 CDT, Stop date: 11/29/17 23:09:00 CDTNotes: (Same as: Pepcid) Can be dilute in 5-10cc NS IVP: Slow IV push over at least 2 minutes. Buspar 15 mg, PO, Active Daily, [address] [facility] Refill(s) lisinopril 5 mg 5 mg=1 tab, PO, No Longer oral tablet Daily, # [address] [facility] tab, 0 Refill(s) Aspirin 324 mg, 4 tab, Inactive Route: CHEW, 2017 [facility] Drug form: CHEWTAB, ONCE, Dosing Weight 90.909, kg, Start date: 11/29/17 17:16:00 CDT, Stop date: 11/29/17 17:16:00 CDTNotes: Take with food. cefepime 1 gm, Route: No Longer IVPB, [id number], Active 2017 [facility] Dosing Weight 90.909, kg, (CrCl >/=50 ml/min), Start date: 11/29/17 17:00:00 CDT, Duration: 30 day, Stop date: 12/29/17 5:00:00 CDT, ABX Indication: Intra-abdominal InfectionNotes: (Same As: Maxipime) MEDICATION WASTE Product Size: 1000 mg Product Wasted: ___ mg Bentyl 20 mg, 1 tab, No Longer Route: PO, Drug Active 2017 [facility] form: TAB, QID, Dosing Weight 90.909, kg, Start date: 11/29/17 17:00:00 CDT, Duration: 30 day, Stop date: 12/29/17 13:00:00 CDTNotes: (Same as: Bentyl) Calcium 3 gm, 30 mL, No Longer Gluconate Route: IVPB, 2017 [facility] PRN, Dosing Weight 90.909, kg, PRN Abnormal Lab Result, For NON-ICU Patients Only., Start date: 11/29/17 16:06:00 CDT, Duration: 30 day, Stop date: 12/29/17 16:05:00 CDTNotes: WASTE: F/P - Sink; E - Municipal Trash Bin Magnesium Oxide 800 mg, 2 tab, No Longer Route: PO, Drug Active 2017 [facility] form: TAB, PRN, Dosing Weight 90.909, kg, PRN Abnormal Lab Result, For NON-ICU Patients Only., Start date: 11/29/17 16:06:00 CDT, Duration: 30 day, Stop date: 12/29/17 16:05:00 CDTNotes: (Same as: Mag-Ox 400) Magnesium oxide [id number] elemental magnesium Dose=____mg magnesium oxide (___mg elemental magnesium) Magnesium 2 gm, 50 mL, No Longer 09/17/ MH Sulfate Route: IVPB, Active 2017 [facility] Drug form: INJ, PRN, Dosing Weight 90.909, kg, PRN Abnormal Lab Result, For NON-ICU Patients Only., Start date: 11/29/17 16:06:00 CDT, Duration: 30 day, Stop date: 12/29/17 16:05:00 CDTNotes: WASTE: F/P - Sink; E - [employer] Trash Bin Potassium 10 mEq, 100 mL, No Longer Chloride Route: IVPB, Active 2017 [facility] Drug form: INJ, PRN, Dosing Weight 90.909, kg, PRN Abnormal Lab Result, For NON-ICU Patients Only, Start date: 11/29/17 16:06:00 CDT, Duration: 30 day, Stop date: 12/29/17 16:05:00 CDTNotes: Infuse at a rate of 10 mEq/hr. (Same as: KCL) potassium 2 pkt, Route: No Longer phosphate-sodium PO, Drug Form: Active 2017 [facility] phosphate 250 PDR/REC, Dosing mg-280 mg-160 mg Weight 90.909, oral powder for kg, PRN, PRN reconstitution Abnormal Lab Result, For NON-ICU Patients Only, Start date: 11/29/17 16:06:00 CDT, Duration: 30 day, Stop date: 12/29/17 16:05:00 CDTNotes: (Same as: Phos-NaK) Each 1.5 gm pkt has 250mg phosphorous. Mix w/2.5oz water and stir. potassium 30 mmol, 10 mL, No Longer phosphate Route: IVPB, Active 2017 [facility] PRN, Dosing Weight 90.909, kg, PRN Abnormal Lab Result, For NON-ICU Patients Only., Start date: 11/29/17 16:06:00 CDT, Duration: 30 day, Stop date: 12/29/17 16:05:00 CDTNotes: (Same as: K Phosphate.) Do not infuse phosphorous concurrently in the same line as TPN or IVF that contains calcium. For double lumen central lines, phosphorous may be infused in a separate lumen from TPN. 1 mMol phoshate has 1.47 mEq potassium Infuse over 4 hours sodium phosphate 30 mmol, 10 mL, No Longer Route: IVPB, Active 2017 [facility] PRN, Dosing Weight 90.909, kg, PRN Abnormal Lab Result, For NON-ICU Patients Only., Start date: 11/29/17 16:06:00 CDT, Duration: 30 day, Stop date: 12/29/17 16:05:00 CDTNotes: Infuse over 4 hour. Do not infuse phosphorous concurrently in the same line as TPN or IVF that contains calcium. For double lumen central lines, phosphorous may be infused in a separate lumen from TPN. Docusate Sodium 100 mg, 1 cap, No Longer 100 MG Oral Route: PO, Drug Active 2017 [facility] Capsule [Colace] form: CAP, BID, Dosing Weight 90.909, kg, PRN Constipation, Start date: 11/29/17 16:05:00 CDT, Duration: 30 day, Stop date: 12/29/17 16:04:00 CDTNotes: (Same as: Colace) (Do Not Crush) Hydralazine 10 mg, 0.5 mL, No Longer Route: IVP, Active 2017 [facility] Drug form: INJ, Q6H, Dosing Weight 90.909, kg, PRN Other -See Comment, Start date: 11/29/17 16:05:00 CDT, Duration: 30 day, Stop date: 12/29/17 16:04:00 CDT, SBP>/=160 OR DBP>/=90Notes: (Same as: Apresoline) Push over 5 minutes Morphine 2 mg, 1 mL, No Longer Route: IVP, Active 2017 [facility] Drug form: INJ, Q4H, Dosing Weight 90.909, kg, PRN Pain Score 7-10, Start date: 11/29/17 16:05:00 CDT, Duration: 3 day, Stop date: 12/02/17 16:04:00 CDTNotes: (Same as:MORPhine Sulfate) Sodium Chloride 1,000 mL, Rate: No Longer 0.9% IV 1,000 mL 125 ml/hr, Active 2017 [facility] Infuse over: 8 hr, Route: IV, Dosing Weight 90.909 kg, Total Volume: 1,000, Start date: 11/29/17 16:05:00 CDT, Duration: 30 day, Stop date: 12/29/17 16:04:00 CDT, 2.13, m2 Ondansetron 4 mg, 2 mL, No Longer Route: IVP, Active 2017 [facility] Drug form: INJ, Q4H, Dosing Weight 90.909, kg, PRN Nausea & Vomiting, Start date: 11/29/17 16:05:00 CDT, Duration: 30 day, Stop date: 12/29/17 16:04:00 CDTNotes: (Same as: Liz) MEDICATION WASTE Product Size: 4 mg Product Wasted: ___ mg Acetaminophen 650 mg, 20.3 No Longer mL, Route: PO, Active 2017 [facility] Drug form: LIQ, Q4H, Dosing Weight 90.909, kg, PRN Pain 1-3/Temp > 100.4 F, Start date: 11/29/17 16:05:00 CDT, Duration: 30 day, Stop date: 12/29/17 16:04:00 CDTNotes: Max acetaminophen=4 000mg/day (4 gm/day). (Same as: Tylenol) Alprazolam 0.25 0.25 mg, 1 tab, No Longer MG Oral Tablet Route: PO, Drug Active 2017 [facility] [Xanax] form: TAB, Q6H, Dosing Weight 90.909, kg, PRN Anxiety, Start date: 11/29/17 16:05:00 CDT, Duration: 30 day, Stop date: 12/29/17 16:04:00 CDTNotes: With food or milk (Same as: Xanax) tramadol 50 mg, 1 tab, No Longer hydrochloride 50 Route: PO, Drug Active 2017 [facility] MG Oral Tablet form: TAB, Q6H, Dosing Weight 90.909, kg, PRN Pain Score 4-6, Start date: 11/29/17 16:05:00 CDT, Duration: 30 day, Stop date: 12/29/17 16:04:00 CDTNotes: Not to exceed 400mg/day. (Same As: Ultram) Gas-X Ultra 160 mg, 2 tab, No Longer Softgels Route: PO, Drug Active 2017 [facility] form: CHEWTAB, Q4H, Dosing Weight 90.909, kg, PRN Gas, Start date: 11/29/17 16:05:00 CDT, Duration: 30 day, Stop date: 12/29/17 16:04:00 CDTNotes: (Same as: Mylicon) Protonix 40 mg, 1 tab, No Longer Route: PO, Drug Active 2017 [facility] form: ECTAB, BID-Before Meals, Dosing Weight 90.909, kg, Priority: STAT, Start date: 11/29/17 16:03:00 CDT, Stop date: 12/29/17 7:30:00 CDTNotes: Tablet should not be chewed or crushed. (Same as: Protonix) Flagyl 500 mg, Route: Inactive IVPB, ONCE, 2017 [facility] Dosing Weight 90.909, kg, Priority: STAT, Start date: 11/29/17 13:16:00 CDT, Stop date: 11/29/17 13:16:00 CDT, ABX Indication: Intra-abdominal Infection Zofran 4 mg, Route: Inactive IVP, Drug form: 2017 [facility] INJ, ONCE, Dosing Weight 90.909, kg, Priority: STAT, Start date: 11/29/17 13:00:00 CDT, Stop date: 11/29/17 13:00:00 CDT Morphine 4 mg, Route: Inactive IVP, ONCE, 2017 [facility] Dosing Weight 90.909, kg, Priority: STAT, Start date: 11/29/17 13:00:00 CDT, Stop date: 11/29/17 13:00:00 CDT Saline Flush 10 mL, Route: No Longer 0.9% IVP, Drug Form: Active 2017 [facility] INJ, Dosing Weight 90.909, kg, PRN, PRN Line Flush, Start date: 11/29/17 11:07:00 CDT, Duration: 1 day, Stop date: 11/30/17 11:06:00 CDTNotes: (Same as: BD Posiflush) Lexapro 20 mg, 2 tab, No Longer Route: PO, Drug Active 2017 [facility] form: TAB, Daily, Dosing Weight 90.256, kg, Start date: 11/29/17 9:00:00 CDT, Duration: 30 day, Stop date: 12/28/17 9:00:00 CDTNotes: (Same as: Lexapro) Buspar 15 mg, 3 tab, No Longer Route: PO, Drug Active 2017 [facility] form: TAB, Daily, Dosing Weight 90.256, kg, Start date: 11/29/17 9:00:00 CDT, Duration: 30 day, Stop date: 12/28/17 9:00:00 CDTNotes: (Same As: BuSpar) quetiapine 400 mg, 4 tab, Inactive Route: PO, Drug 2017 [facility] form: TAB, QPM, Dosing Weight 90.256, kg, Start date: 11/28/17 17:00:00 CDT, Duration: 30 day, Stop date: 12/27/17 17:00:00 CDTNotes: (Same as: SEROquel) Hydralazine 50 mg, 1 tab, Inactive Hydrochloride 25 Route: PO, Drug 2017 [facility] MG Oral Tablet form: TAB, QID, Dosing Weight 90.256, kg, PRN Hypertension, Start date: 11/28/17 9:25:00 CDT, Duration: 30 day, Stop date: 12/28/17 9:24:00 CDT, SBP >/=160Notes: (Same as: Apresoline) May interfere w/enteral feedings Take With Food Albuterol 0.83 2.49 mg, 3 mL, Inactive MG/ML Inhalant Route: NEB, 2017 [facility] Solution Drug form: SOLN, TID, Dosing Weight 90.256, kg, Priority: STAT, Start date: 11/28/17 9:23:00 CDT, Duration: 1 doses or times, Stop date: 11/28/17 9:23:00 CDTNotes: SEE RT DOCUMENTATION (Same as: Proventil) Kayexalate 30 gm, 120 mL, Inactive Route: PO, Drug 2017 [facility] form: SUSP, ONCE, Dosing Weight 90.256, kg, Priority: STAT, Start date: 11/28/17 9:23:00 CDT, Stop date: 11/28/17 9:23:00 CDTNotes: (sodium polystyrene sulfonate 15 gm/60 ml DEE) Shake well before use. (Same as: Kayexalate, SPS) quetiapine 200 mg, 2 tab, Inactive Route: PO, Drug 2017 [facility] form: TAB, Daily, Dosing Weight 90.256, kg, Start date: 11/28/17 9:00:00 CDT, Duration: 30 day, Stop date: 12/27/17 9:00:00 CDTNotes: (Same as: SEROquel) Escitalopram 10 mg, 1 tab, Inactive Route: PO, Drug 2017 [facility] form: TAB, Daily, Dosing Weight 90.256, kg, Start date: 11/28/17 9:00:00 CDT, Duration: 30 day, Stop date: 12/27/17 9:00:00 CDTNotes: (Same as: Lexapro) cefepime 1 gm, Route: No Longer IVPB, [id number], Active 2017 [facility] Dosing Weight 92.443, kg, (CrCl >/=50 ml/min), Start date: 11/27/17 15:00:00 CDT, Duration: 30 day, Stop date: 12/26/17 15:00:00 CDT, ABX Indication: Intra-abdominal InfectionNotes: (Same As: Maxipime) MEDICATION WASTE Product Size: 1000 mg Product Wasted: ___ mg quetiapine 200 200 mg=1 tab, No Longer MG Oral Tablet PO, Daily, in Active 2017 [facility] [Seroquel] the morning, 0 Refill(s) quetiapine 400 400 mg=1 tab, No Longer MG Oral Tablet PO, Bedtime, [address] [facility] [Seroquel] Refill(s) Trazodone 100 mg, PO, Active Bedtime, PRN 2017 Sleep, 0 Refill(s) Nexium 40 mg, PO, No Longer Daily, [address] [facility] Refill(s) Lisinopril 5 mg, PO, No Longer Daily, [address] [facility] Refill(s) Eliquis 5 mg, PO, BID, No Longer 0 Refill(s) Active 2017 [facility] Buspar 15 mg, PO, No Longer Daily, [address] [facility] Refill(s) Escitalopram 20 20 mg=1 tab, No Longer MG Oral Tablet PO, Daily, [address] [facility] [Lexapro] Refill(s) Solu-Medrol 60 mg, Route: Inactive IVP, Drug form: 2017 [facility] INJ, ONCE, Dosing Weight 92.443, kg, Priority: STAT, Start date: 11/27/17 14:03:00 CDT, Stop date: 11/27/17 14:03:00 CDT Benadryl 25 mg, 1 tab, No Longer Route: PO, Drug Active 2017 [facility] form: TAB, Q8H, Dosing Weight 92.443, kg, PRN Allergic reaction, Priority: STAT, Start date: 11/27/17 14:03:00 CDT, Duration: 30 day, Stop date: 12/27/17 14:02:00 CDT Bentyl 20 mg, 1 tab, No Longer Route: PO, Drug Active 2017 [facility] form: TAB, QID, Dosing Weight 92.443, kg, Start date: 11/27/17 13:00:00 CDT, Duration: 30 day, Stop date: 12/27/17 9:00:00 CDTNotes: (Same as: Bentyl) Alprazolam 0.25 0.25 mg, 1 tab, No Longer MG Oral Tablet Route: PO, Drug Active 2017 [facility] [Xanax] form: TAB, Q6H, Dosing Weight 92.443, kg, PRN Anxiety, Start date: 11/27/17 12:37:00 CDT, Duration: 30 day, Stop date: 12/27/17 12:36:00 CDTNotes: With food or milk (Same as: Xanax) Gas-X Ultra 160 mg, 2 tab, No Longer Softgels Route: PO, Drug Active 2017 [facility] form: CHEWTAB, Q4H, Dosing Weight 92.443, kg, PRN Gas, Start date: 11/27/17 12:37:00 CDT, Duration: 30 day, Stop date: 12/27/17 12:36:00 CDTNotes: (Same as: Mylicon) Docusate Sodium 100 mg, 1 cap, No Longer 100 MG Oral Route: PO, Drug Active 2017 [facility] Capsule [Colace] form: CAP, BID, Dosing Weight 92.443, kg, PRN Constipation, Start date: 11/27/17 12:37:00 CDT, Duration: 30 day, Stop date: 12/27/17 12:36:00 CDTNotes: (Same as: Colace) (Do Not Crush) Hydralazine 10 mg, Route: No Longer IVP, Q6H, Active 2017 [facility] Dosing Weight 92.443, kg, PRN, Start date: 11/27/17 12:37:00 CDT, Duration: 30 day, Stop date: 12/27/17 12:36:00 CDT, SBP>/=160 OR DBP>/=90 tramadol 50 mg, 1 tab, No Longer hydrochloride 50 Route: PO, Drug Active 2017 [facility] MG Oral Tablet form: TAB, Q6H, Dosing Weight 92.443, kg, PRN Pain Score 4-6, Start date: 11/27/17 12:37:00 CDT, Duration: 30 day, Stop date: 12/27/17 12:36:00 CDTNotes: Not to exceed 400mg/day. (Same As: Ultra) Morphine 2 mg, 1 mL, No Longer Route: IVP, Active 2017 [facility] Drug form: INJ, Q4H, Dosing Weight 92.443, kg, PRN Pain Score 7-10, Start date: 11/27/17 12:37:00 CDT, Duration: 3 day, Stop date: 11/30/17 12:36:00 CDTNotes: (Same as:MORPhine Sulfate) Sodium Chloride 1,000 mL, Rate: No Longer 0.9% IV 1,000 mL 125 ml/hr, Active 2017 [facility] Infuse over: 8 hr, Route: IV, Dosing Weight 92.443 kg, Total Volume: 1,000, Start date: 11/27/17 12:37:00 CDT, Duration: 30 day, Stop date: 12/27/17 12:36:00 CDT Ondansetron 4 mg, 2 mL, No Longer Route: IVP, Active 2017 [facility] Drug form: INJ, Q4H, Dosing Weight 92.443, kg, PRN Nausea & Vomiting, Start date: 11/27/17 12:37:00 CDT, Duration: 30 day, Stop date: 12/27/17 12:36:00 CDTNotes: (Same as: Zofran) MEDICATION WASTE Product Size: 4 mg Product Wasted: ___ mg Acetaminophen 650 mg, 20.3 No Longer mL, Route: PO, Active 2017 [facility] Drug form: LIQ, Q4H, Dosing Weight 92.443, kg, PRN Pain 1-3/Temp > 100.4 F, Start date: 11/27/17 12:37:00 CDT, Duration: 30 day, Stop date: 12/27/17 12:36:00 CDTNotes: Max acetaminophen=4 000mg/day (4 gm/day). (Same as: Tylenol) Protonix 40 mg, Route: No Longer IVP, Drug form: Active 2017 [facility] INJ, BID, Dosing Weight 92.443, kg, Patient is NPO, Priority: STAT, Start date: 11/27/17 12:35:00 CDT, Duration: 30 day, Stop date: 12/27/17 9:00:00 CDTNotes: For IV push reconstitute with 10 ml 0.9% sodium chloride and push over 2 minutes. (Same as: Protonix) Levaquin 500 mg, 100 mL, Inactive Route: IVPB, 2017 [facility] Drug form: SOLN, [id number], Dosing Weight 92.443, kg, Priority: STAT, Start date: 11/27/17 12:35:00 CDT, Duration: 14 day, Stop date: 12/07/17 21:00:00 CDT, ABX Indication: Intra-abdominal InfectionNotes: (Same as:Levaquin) Flagyl 500 mg, 100 mL, Inactive Route: IVPB, 2017 [facility] Drug form: INJ, ONCE, Dosing Weight 92.443, kg, Priority: STAT, Start date: 11/27/17 12:30:00 CDT, Stop date: 11/27/17 12:30:00 CDT, ABX Indication: Intra-abdominal InfectionNotes: (Same as: Flagyl) Avoid alcohol. Cipro 400 mg, 200 mL, Inactive Route: IVPB, 2017 [facility] Drug form: INJ, ONCE, Dosing Weight 92.443, kg, Priority: STAT, Start date: 11/27/17 12:30:00 CDT, Stop date: 11/27/17 12:30:00 CDT, ABX Indication: Intra-abdominal InfectionNotes: Do not refrigerate Morphine 4 mg, Route: Inactive IVP, ONCE, 2017 [facility] Dosing Weight 92.443, kg, Priority: STAT, Start date: 11/27/17 11:33:00 CDT, Stop date: 11/27/17 11:33:00 CDT Visipaque 320 100 mL, Route: Inactive mg/mL injectable IVP, Dosing 2017 [facility] solution Weight 92.443, kg, ONCALL, GFR Zofran 4 mg, Route: Inactive IVP, Drug form: 2017 [facility] INJ, ONCE, Dosing Weight 92.443, kg, Priority: STAT, Start date: 11/27/17 6:21:00 CDT, Stop date: 11/27/17 6:21:00 CDT Morphine 4 mg, Route: Inactive IVP, ONCE, 2017 [facility] Dosing Weight 92.443, kg, Priority: STAT, Start date: 11/27/17 6:21:00 CDT, Stop date: 11/27/17 6:21:00 CDT Sodium Chloride 1,000 mL, 1000 Inactive 0.9% (Bolus) IV ml/hr, Infuse 2017 [facility] Over: 1 hr, Route: IV, 1,000, Drug form: INJ, ONCE, Priority: STAT, Dosing Weight 92.443 kg, Start date: 11/27/17 3:53:00 CDT, Stop date: 11/27/17 3:53:00 CDT Trazodone 100 mg, 1 tab, No Longer Route: PO, Drug Active 2017 [facility] form: TAB, Bedtime, Dosing Weight 90.256, kg, Start date: 11/27/17 0:07:00 CDT, Duration: 30 day, Stop date: 12/26/17 21:00:00 CDTNotes: (Same As: Nella) Apixaban TWICE DAILY Active [facility] . 2017 [facility] Cyanocobalamin DAILY Active [facility] (Vitamin B-12) 2018 [facility] Ferrous Sulfate TWICE DAILY Active 2017 [facility] Apixaban TWICE DAILY Active 2018 [facility] Buspirone Hcl TWICE DAILY Active 2018 [facility] Esomeprazole Mag DAILY Active . Trihydrate 2018 [facility] Escitalopram TWICE DAILY Active 2018 [facility] Dabigatran TWICE DAILY Active . Etexilate 2018 [facility] [place] Lisinopril DAILY Active 2018 [facility] Quetiapine DAILY Active 2018 [facility] Trazodone Hcl TWICE DAILY Active 2018 [facility] Tramadol Hcl Q6H PRN For Active Pain 2018 [facility] {42 (rivaroxaban 1 tab, PO, No Longer [place] 15 MG Oral BID-Meals, Take Active 2018 [facility] Tablet 15 mg tablets [facility] [Xarelto]) / 9 twice daily (rivaroxaban 20 with food for MG Oral Tablet 21 days. [Xarelto]) } Beginning day [Xarelto 22,take one 20 Kit] mg tablet daily with food for the remainder of therapy., X 30 day, # 1 pkt, 0 Refill(s)
--- OUTSIDE RECORDS SUMMARY | 2018-08-13 17:28 | XMS REPORT | Summary of Care ---
:1965 Author Organization [facility] Address [address] [place], [place] [address]- Encounter HQ Ronnie(FIN) [id number] Date(s): 11/27/17 - 11/28/17 [facility] [address] [place] [address]- [phone] Encounter Diagnosis Calculus of gallbladder with acute and chronic cholecystitis without obstruction (Final) - 12/02/17 Acute kidney failure, unspecified (Final) - Kaveh's disease (Final) - Chronic embolism and thrombosis of unspecified deep veins of right lower extremity (Final) - Chronic kidney disease, stage 3 (moderate) (Final) - Nicotine dependence, cigarettes, uncomplicated (Final) - Acute gastritis without bleeding (Final) - Constipation, unspecified (Final) - Hyperkalemia (Final) - [facility] (current) use of anticoagulants (Final) - Discharge Disposition: Left Against Medical Advise Attending Physician: Anirudh Rich DO Admitting Physician: Aniurdh Rich DO Vital Signs Most recent to oldest 1 2 3 [Reference Range]: Height 177.8 cm (11/27/17 2:41 PM) Temperature Oral [96.4-99.1 98.3 DegF 98.1 DegF 97.7 DegF DegF] (11/28/17 7:00 PM) (11/28/17 11:39 AM) (11/28/17 7:00 AM) Blood Pressure [90-140/60-90 98/61 mmHg 102/67 mmHg 100/64 mmHg mmHg] (11/28/17 7:00 PM) (11/28/17 11:39 AM) (11/28/17 7:00 AM) Respiratory Rate [14-20 BRMIN] 18 BRMIN 18 BRMIN 18 BRMIN (11/28/17 7:00 PM) (11/28/17 11:39 AM) (11/28/17 7:00 AM) Peripheral Pulse Rate [60-100 96 bpm 89 bpm 78 bpm bpm] (11/28/17 7:00 PM) (11/28/17 11:39 AM) (11/28/17 7:00 AM) Weight 90.256 kg 92.443 kg 92.443 kg (11/27/17 2:41 PM) (11/27/17 2:04 PM) (11/27/17 1:36 AM) Body Mass Index 28.55 m2 (11/27/17 2:41 PM) Problem List Condition Effective Dates Status Health Status Informant Gallstones(Confirmed) Active Bipolar disorder(Confirmed) Active Calculus of gallbladder with chronic Active cholecystitis with obstruction(Confirmed) Calculus of gallbladder with chronic Active cholecystitis without obstruction(Confirmed) CKD (chronic kidney Active disease)(Confirmed) Liver dysfunction(Confirmed) Active DVT (deep venous Active thrombosis)(Confirmed) Solano disease(Confirmed) Active Allergies, Adverse Reactions, Alerts Substance Reaction Severity Status sulfa drugs Active quinolone antibiotics Active penicillin Active Food Tomatoes Active Medications acetaminophen 650 mg, 20.3 mL, Route: PO, Drug form: LIQ, Q4H, Dosing Weight 92.443, kg, PRN Pain 1-3/Temp > 100.4 F, Start date: 11/27/17 12:37:00 CDT, Duration: 30 day , Stop date: 12/27/17 12:36:00 CDT Notes: Max fxqzsdcljzclr=0138bp/day (4 gm/day). (Same as: Tylenol) Start Date: 11/27/17 Stop Date: 11/28/17 Status: Discontinuedalbuterol 0.083% inhalation solution 2.49 mg, 3 mL, Route: NEB, Drug form: SOLN, TID, Dosing Weight 90.256, kg, Priority: STAT, Start date: 11/28/17 9:23:00 CDT, Duration: 1 doses or times, Stop date: 11/28/17 9:23:00 CDT Notes: SEE RT DOCUMENTATION (Same as: Proventil) Start Date: 11/28/17 Stop Date: 11/28/17 Status: CompletedBenadryl 25 mg, 1 tab, Route: PO, Drug form: TAB, Q8H, Dosing Weight 92.443, kg, PRN Allergic reaction, Priority: STAT, Start date: 11/27/17 14:03:00 CDT, Duration: 30 day, Stop date: 12/27/17 14:02:00 CDT Start Date: 11/27/17 Stop Date: 11/28/17 Status: DiscontinuedBentyl 20 mg, 1 tab, Route: PO, Drug form: TAB, QID, Dosing Weight 92.443, kg, Start date: 11/27/17 13:00:00 CDT, Duration: 30 day, Stop date: 12/27/17 9:00:00 CDT Notes: (Same as: Bentyl) Start Date: 11/27/17 Stop Date: 11/28/17 Status: DiscontinuedBuSpar 15 mg, 3 tab, Route: PO, Drug form: TAB, Daily, Dosing Weight 90.256, kg, Start date: 11/29/17 9:00:00 CDT, Duration: 30 day, Stop date: 12/28/17 9:00:00 CDT Notes: (Same As: BuSpar) Start Date: 11/29/17 Stop Date: 11/28/17 Status: CanceledBuSpar 15 mg, PO, Daily, 0 Refill(s) Start Date: 11/27/17 Stop Date: 11/29/17 Status: Discontinuedcefepime + Sodium Chloride 0.9% IV 100 mL 1 gm, Route: IVPB, [id number], Dosing Weight 92.443, kg, (CrCl >/=50 ml/min), Start date: 11/27/17 15:00:00 CDT, Duration: 30 day, Stop date: 12/26/17 15:00: 00 CDT, ABX Indication: Intra-abdominal Infection Notes: (Same As: Maxipime) MEDICATION WASTE Product Size: 1000 mgProduct Wasted: ___ mg Start Date: 11/27/17 Stop Date: 11/28/17 Status: DiscontinuedCipro 400 mg, 200 mL, Route: IVPB, Drug form: INJ, ONCE, Dosing Weight 92.443, kg, Priority: STAT, Start date: 11/27/17 12:30:00 CDT, Stop date: 11/27/17 12:30:00 CDT, ABX Indication: Intra-abdominal Infection Notes: Do not refrigerate Start Date: 11/27/17 Stop Date: 11/27/17 Status: CompletedColace 100 mg oral capsule 100 mg, 1 cap, Route: PO, Drug form: CAP, BID, Dosing Weight 92.443, kg, PRN Constipation, Start date: 11/27/17 12:37:00 CDT, Duration: 30 day, Stop date: 12:36:00 CDT Notes: (Same as: Colace) (Do Not Crush) Start Date: 11/27/17 Stop Date: 11/28/17 Status: DiscontinuedEliquis 5 mg, PO, BID, 0 Refill(s) Start Date: 11/27/17 Stop Date: 01/04/18 Status: Discontinuedescitalopram 10 mg, 1 tab, Route: PO, Drug form: TAB, Daily, Dosing Weight 90.256, kg, Start date: 11/28/17 9:00:00 CDT, Duration: 30 day, Stop date: 12/27/17 9:00:00 CDT Notes: (Same as: Lexapro) Start Date: 11/28/17 Stop Date: 11/28/17 Status: Voided With ResultsFlagyl 500 mg, 100 mL, Route: IVPB, Drug form: INJ, ONCE, Dosing Weight 92.443, kg, Priority: STAT, Start date: 11/27/17 12:30:00 CDT, Stop date: 11/27/17 12:30:00 CDT, ABX Indication: Intra-abdominal Infection Notes: (Same as: Flagyl) Avoid alcohol. Start Date: 11/27/17 Stop Date: 11/27/17 Status: CompletedGas-X Ultra Softgels 160 mg, 2 tab, Route: PO, Drug form: CHEWTAB, Q4H, Dosing Weight 92.443, kg, PRN Gas, Start date: 11/27/17 12:37:00 CDT, Duration: 30 day, Stop date: 12:36:00 CDT Notes: (Same as: Mylicon) Start Date: 11/27/17 Stop Date: 11/28/17 Status: DiscontinuedhydrALAZINE 10 mg, Route: IVP, Q6H, Dosing Weight 92.443, kg, PRN, Start date: 11/27/17 12: 37:00 CDT, Duration: 30 day, Stop date: 12/27/17 12:36:00 CDT, SBP>/=160 OR DBP>/=90 Start Date: 11/27/17 Stop Date: 11/28/17 Status: DiscontinuedhydrALAZINE 25 mg oral tablet 50 mg, 1 tab, Route: PO, Drug form: TAB, QID, Dosing Weight 90.256, kg, PRN Hypertension, Start date: 11/28/17 9:25:00 CDT, Duration: 30 day, Stop date: 9:24:00 CDT, SBP >/=160 Notes: (Same as: Apresoline) May interfere w/enteral feedings Take With Food Start Date: 11/28/17 Stop Date: 11/28/17 Status: DiscontinuedKayexalate 30 gm, 120 mL, Route: PO, Drug form: SUSP, ONCE, Dosing Weight 90.256, kg, Priority: STAT, Start date: 11/28/17 9:23:00 CDT, Stop date: 11/28/17 9:23:00 CDT Notes: (sodium polystyrene sulfonate 15 gm/60 ml DEE) Shake well before use. (Same as: Kayexalate, SPS) Start Date: 11/28/17 Stop Date: 11/28/17 Status: CompletedLevaquin 500 mg, 100 mL, Route: IVPB, Drug form: SOLN, [id number], Dosing Weight 92.443, kg , Priority: STAT, Start date: 11/27/17 12:35:00 CDT, Duration: 14 day, Stop date : 12/07/17 21:00:00 CDT, ABX Indication: Intra-abdominal Infection Notes: (Same as:Levaquin) Start Date: 11/27/17 Stop Date: 11/27/17 Status: DiscontinuedLexapro 20 mg, 2 tab, Route: PO, Drug form: TAB, Daily, Dosing Weight 90.256, kg, Start date: 11/29/17 9:00:00 CDT, Duration: 30 day, Stop date: 12/28/17 9:00:00 CDT Notes: (Same as: Lexapro) Start Date: 11/29/17 Stop Date: 11/28/17 Status: CanceledLexapro 20 mg oral tablet 20 mg=1 tab, PO, Daily, 0 Refill(s) Start Date: 11/27/17 Stop Date: 12/01/17 Status: Discontinuedlisinopril 5 mg, PO, Daily, 0 Refill(s) Start Date: 11/27/17 Stop Date: 11/29/17 Status: Discontinuedmorphine Sulfate 2 mg, 1 mL, Route: IVP, Drug form: INJ, Q4H, Dosing Weight 92.443, kg, PRN Pain Score 7-10, Start date: 11/27/17 12:37:00 CDT, Duration: 3 day, Stop date: 11/30 12:36:00 CDT Notes: (Same as:MORPhine Sulfate) Start Date: 11/27/17 Stop Date: 11/28/17 Status: Discontinuedmorphine Sulfate 4 mg, Route: IVP, ONCE, Dosing Weight 92.443, kg, Priority: STAT, Start date: 6:21:00 CDT, Stop date: 11/27/17 6:21:00 CDT Start Date: 11/27/17 Stop Date: 11/27/17 Status: Completedmorphine Sulfate 4 mg, Route: IVP, ONCE, Dosing Weight 92.443, kg, Priority: STAT, Start date: 11:33:00 CDT,Stop date: 11/27/17 11:33:00 CDT Start Date: 11/27/17 Stop Date: 11/27/17 Status: CompletedNexIUM 40 mg, PO, Daily, 0 Refill(s) Start Date: 11/27/17 Stop Date: 12/12/17 Status: Deletedondansetron 4 mg, 2 mL, Route: IVP, Drug form: INJ, Q4H, Dosing Weight 92.443, kg, PRN Nausea & Vomiting, Start date: 11/27/17 12:37:00 CDT, Duration: 30 day, Stop date: 12/27/17 12:36:00 CDT Notes: (Same as: Liz) MEDICATION WASTE Product Size: 4 mgProduct Wasted: ___ mg Start Date: 11/27/17 Stop Date: 11/28/17 Status: DiscontinuedProtonix 40 mg, Route: IVP, Drug form: INJ, BID, Dosing Weight 92.443, kg, Patient is NPO , Priority: STAT, Start date: 11/27/17 12:35:00 CDT, Duration: 30 day, Stop date : 12/27/17 9:00:00 CDT Notes: For IV push reconstitute with 10 ml 0.9% sodium chloride and push over 2 minutes. (Same as: Protonix) Start Date: 11/27/17 Stop Date: 11/28/17 Status: DiscontinuedQUEtiapine 400 mg, 4 tab, Route: PO, Drug form: TAB, QPM, Dosing Weight 90.256, kg, Start date: 11/28/17 17:00:00 CDT, Duration: 30 day, Stop date: 12/27/17 17:00:00 CDT Notes: (Same as: SEROquel) Start Date: 11/28/17 Stop Date: 11/28/17 Status: DiscontinuedQUEtiapine 200 mg, 2 tab, Route: PO, Drug form: TAB, Daily, Dosing Weight 90.256, kg, Start date: 11/28/17 9:00:00 CDT, Duration: 30 day, Stop date: 12/27/17 9:00:00 CDT Notes: (Same as: SEROquel) Start Date: 11/28/17 Stop Date: 11/28/17 Status: DiscontinuedSEROquel 200 mg oral tablet 200 mg=1 tab, PO, Daily, in the morning, 0 Refill(s) Start Date: 11/27/17 Stop Date: 11/29/17 Status: DiscontinuedSEROquel 400 mg oral tablet 400 mg=1 tab, PO, Bedtime, 0 Refill(s) Start Date: 11/27/17 Stop Date: 01/04/18 Status: DiscontinuedSodium Chloride 0.9% (Bolus) IV 1,000 mL, 1000 ml/hr, Infuse Over: 1 hr, Route: IV, 1,000, Drug form: INJ, ONCE , Priority: STAT, Dosing Weight 92.443 kg, Start date: 11/27/17 3:53:00 CDT, Stop date: 11/27/17 3:53:00 CDT Start Date: 11/27/17 Stop Date: 11/27/17 Status: CompletedSodium Chloride 0.9% IV 1,000 mL 1,000 mL, Rate: 125 ml/hr, Infuse over: 8 hr, Route: IV, Dosing Weight 92.443 kg , Total Volume: 1,000, Start date: 11/27/17 12:37:00 CDT, Duration: 30 day, Stop date: 12/27/17 12:36:00 CDT Start Date: 11/27/17 Stop Date: 11/28/17 Status: DiscontinuedSolu-MEDROL 60 mg, Route: IVP, Drug form: INJ, ONCE, Dosing Weight 92.443, kg, Priority: STAT, Start date: 11/27/17 14:03:00 CDT, Stop date: 11/27/17 14:03:00 CDT Start Date: 11/27/17 Stop Date: 11/27/17 Status: Completedtramadol 50 mg oral tablet 50 mg, 1 tab, Route: PO, Drug form: TAB, Q6H, Dosing Weight 92.443, kg, PRN Pain Score 4-6, Start date: 11/27/17 12:37:00 CDT, Duration: 30 day, Stop date: 12/27/17 12:36:00 CDT Notes: Not to exceed 400mg/day. (Same As: Maren) Start Date: 11/27/17 Stop Date: 11/28/17 Status: Discontinuedtrazodone 100 mg, 1 tab, Route: PO, Drug form: TAB, Bedtime, Dosing Weight 90.256, kg, Start date: 11/27/17 0:07:00 CDT, Duration: 30 day, Stop date: 12/26/17 21:00: 00 CDT Notes: (Same As: Nella) Start Date: 11/27/17 Stop Date: 11/28/17 Status: Discontinuedtrazodone 100 mg, PO, Bedtime, PRN Sleep, 0 Refill(s) Start Date: 11/27/17 Status: OrderedVisipaque 320 mg/mL injectable solution 100 mL, Route: IVP, Dosing Weight 92.443, kg, ONCALL, GFR </=45 mL/min, STAT , Start date: 11/27/17 7:59:00 CDT, Duration: 1 doses or times Start Date: 11/27/17 Stop Date: 11/27/17 Status: CompletedXanax 0.25 mg oral tablet 0.25 mg, 1 tab, Route: PO, Drug form: TAB, Q6H, Dosing Weight 92.443, kg, PRN Anxiety, Start date: 11/27/17 12:37:00 CDT, Duration: 30 day, Stop date: 12:36:00 CDT Notes: With food or milk(Same as: Xanax) Start Date: 11/27/17 Stop Date: 11/28/17 Status: DiscontinuedZofran 4 mg, Route: IVP, Drug form: INJ, ONCE, Dosing Weight 92.443, kg, Priority: STAT , Start date: 11/27/17 6:21:00 CDT, Stop date: 11/27/17 6:21:00 CDT Start Date: 11/27/17 Stop Date: 11/27/17 Status: Completed Results ELECTROLYTES Most recent to oldest 1 2 3 [Reference Range]: Sodium Lvl [135-145 mEq/L] 143 mEq/L 141 mEq/L 136 mEq/L (11/28/17 6:58 PM) (11/28/17 4:28 AM) (11/27/17 1:50 AM) Potassium Lvl [3.5-5.1 4.4 mEq/L 5.2 mEq/L 4.9 mEq/L mEq/L] (11/28/17 6:58 PM) *HI* (11/27/17 1:50 AM) (11/28/17 4:28 AM) Chloride Lvl [95-109 mEq/L] 113 mEq/L 114 mEq/L 106 mEq/L *HI* *HI* (11/27/17 1:50 AM) (11/28/17 6:58 PM) (11/28/17 4:28 AM) CO2 [24-32 mEq/L] 23 mEq/L 19 mEq/L 20 mEq/L *LOW* *LOW* *LOW* (11/28/17 6:58 PM) (11/28/17 4:28 AM) (11/27/17 1:50 AM) AGAP [10.0-20.0 mEq/L] 11.4 mEq/L 13.2 mEq/L 14.9 mEq/L (11/28/17 6:58 PM) (11/28/17 4:28 AM) (11/27/17 1:50 AM) CHEM PANEL Most recent to oldest 1 2 3 [Reference Range]: Creatinine Lvl [0.50-1.40 2.36 mg/dL 2.03 mg/dL 2.11 mg/dL mg/dL] *HI* *HI* *HI* (11/28/17 6:58 PM) (11/28/17 4:28 AM) (11/27/17 1:50 AM) eGFR 31 mL/min/1.73m2 1 37 mL/min/1.73m2 2 35 mL/min/1.73m2 3 *NA* *NA* *NA* (11/28/17 6:58 PM) (11/28/17 4:28 AM) (11/27/17 1:50 AM) BUN [7-22 mg/dL] 32 mg/dL 35 mg/dL 44 mg/dL *HI* *HI* *HI* (11/28/17 6:58 PM) (11/28/17 4:28 AM) (11/27/17 1:50 AM) B/C Ratio [6-25] 17 21 (11/28/17 4:28 AM) (11/27/17 1:50 AM) Glucose Lvl [70-99 mg/dL] 111 mg/dL 136 mg/dL 90 mg/dL *HI* *HI* (11/27/17 1:50 AM) (11/28/17 6:58 PM) (11/28/17 4:28 AM) Total Protein [6.4-8.4 g/dL] 6.7 g/dL 7.6 g/dL (11/28/17 4:28 AM) (11/27/17 1:50 AM) Albumin Lvl [3.5-5.0 g/dL] 3.6 g/dL 4.1 g/dL (11/28/17 4:28 AM) (11/27/17 1:50 AM) Globulin [2.7-4.2 g/dL] 3.1 g/dL 3.5 g/dL (11/28/17 4:28 AM) (11/27/17 1:50 AM) A/G Ratio [0.7-1.6] 1.2 1.2 (11/28/17 4:28 AM) (11/27/17 1:50 AM) Calcium Lvl [8.5-10.5 mg/dL] 7.7 mg/dL 8.2 mg/dL 8.3 mg/dL *LOW* *LOW* *LOW* (11/28/17 6:58 PM) (11/28/17 4:28 AM) (11/27/17 1:50 AM) Phosphorus [2.5-4.5 mg/dL] 4.1 mg/dL (11/28/17 4:28 AM) Magnesium Lvl [1.8-2.4 1.9 mg/dL mg/dL] (11/28/17 4:28 AM) ALT [0-65 unit/L] 18 unit/L 18 unit/L (11/28/17 4:28 AM) (11/27/17 1:50 AM) AST [0-37 unit/L] 17 unit/L 21 unit/L (11/28/17 4:28 AM) (11/27/17 1:50 AM) Alk Phos [39-136 unit/L] 110 unit/L 115 unit/L (11/28/17 4:28 AM) (11/27/17 1:50 AM) Bili Total [0.2-1.3 mg/dL] 0.2 mg/dL 0.2 mg/dL (11/28/17 4:28 AM) (11/27/17 1:50 AM) Lipase Lvl [73-393 unit/L] 360 unit/L (11/27/17 1:50 AM) 1Result Comment: The eGFR is calculated using [...] eGFR should be multiplied by the estimated BMI.2Result Comment: The eGFR is calculated using the CKD-EPI formula. In most young, healthy individualsthe eGFR will be >90 mL/min/1.73m2. [...] eGFR should be multiplied by the estimated BMI.3Result Comment: The eGFR is calculated using the CKD-EPI formula. In most young, healthy individualsthe eGFR will be >90 mL/min/1.73m2. [...] eGFR should be multiplied by the estimated BMI.URINE AND STOOL Most recent to oldest [Reference Range]: 1 2 3 UA Turbidity [Clear] Clear (11/27/17 2:33 AM) UA Color STRAW *NA* (11/27/17 2:33 AM) UA pH [5.0-8.0] 6.0 (11/27/17 2:33 AM) UA Spec Grav [<=1.030] 1.004 (11/27/17 2:33 AM) UA Glucose [Negative mg/dL] Negative mg/dL *NA* (11/27/17 2:33 AM) UA Blood [Negative] Negative (11/27/17 2:33 AM) UA Ketones [Negative mg/dL] Negative mg/dL *NA* (11/27/17 2:33 AM) UA Protein [Negative mg/dL] Negative mg/dL (11/27/17 2:33 AM) UA Urobilinogen [0.1-1.0 mg/dL] <=1.0 mg/dL *NA* (11/27/17 2:33 AM) UA Bili [Negative] Negative *NA* (11/27/17 2:33 AM) UA Leuk Est [Negative] Negative (11/27/17 2:33 AM) UA Nitrite [Negative] Negative (11/27/17 2:33 AM) UA WBC [0-5 /HPF] <1 /HPF (11/27/17 2:33 AM) UA RBC [0-2 /HPF] 1 /HPF (11/27/17 2:33 AM) UA Sq Epi [Few /LPF] Occasional /LPF *NA* (11/27/17 2:33 AM) Occult Bld Stl [Negative] Positive *ABN* (11/27/17 6:55 AM) HEMATOLOGY Most recent to oldest [Reference Range]: 1 2 3 WBC [3.7-10.4 K/CMM] 8.4 K/CMM 14.9 K/CMM (11/28/17 4:28 AM) *HI* (11/27/17 1:50 AM) RBC [4.70-6.10 M/CMM] 3.83 M/CMM 4.10 M/CMM *LOW* *LOW* (11/28/17 4:28 AM) (11/27/17 1:50 AM) Hgb [14.0-18.0 g/dL] 11.6 g/dL 12.4 g/dL *LOW* *LOW* (11/28/17 4:28 AM) (11/27/17 1:50 AM) Hct [42.0-54.0 %] 34.7 % 36.8 % *LOW* *LOW* (11/28/17 4:28 AM) (11/27/17 1:50 AM) MCV [80.0-94.0 fL] 90.7 fL 89.7 fL (11/28/17 4:28 AM) (11/27/17 1:50 AM) MCH [27.0-31.0 pg] 30.3 pg 30.2 pg (11/28/17 4:28 AM) (11/27/17 1:50 AM) MCHC [32.0-36.0 g/dL] 33.4 g/dL 33.7 g/dL (11/28/17 4:28 AM) (11/27/17 1:50 AM) RDW [11.5-14.5 %] 14.8 % 14.9 % *HI* *HI* (11/28/17 4:28 AM) (11/27/17 1:50 AM) MPV [7.4-10.4 fL] 7.8 fL 7.6 fL (11/28/17 4:28 AM) (11/27/17 1:50 AM) Platelet [133-450 K/CMM] 171 K/CMM 202 K/CMM (11/28/17 4:28 AM) (11/27/17 1:50 AM) Segs [45.0-75.0 %] 80.6 % 61.6 % *HI* (11/27/17 1:50 AM) (11/28/17 4:28 AM) Lymphocytes [20.0-40.0 %] 15.4 % 28.6 % *LOW* (11/27/17 1:50 AM) (11/28/17 4:28 AM) Monocytes [2.0-12.0 %] 3.7 % 7.4 % (11/28/17 4:28 AM) (11/27/17 1:50 AM) Eosinophils [0.0-4.0 %] 0.1 % 2.1 % (11/28/17 4:28 AM) (11/27/17 1:50 AM) Basophils [0.0-1.0 %] 0.2 % 0.3 % (11/28/17 4:28 AM) (11/27/17 1:50 AM) Neutrophils # [1.5-8.1 K/CMM] 6.8 K/CMM 9.2 K/CMM (11/28/17 4:28 AM) *HI* (11/27/17 1:50 AM) Lymphocytes # [1.0-5.5 K/CMM] 1.3 K/CMM 4.2 K/CMM (11/28/17 4:28 AM) (11/27/17 1:50 AM) Monocytes # [0.0-0.8 K/CMM] 0.3 K/CMM 1.1 K/CMM (11/28/17 4:28 AM) *HI* (11/27/17 1:50 AM) Eosinophils # [0.0-0.5 K/CMM] 0.3 K/CMM (11/27/17 1:50 AM) Immunizations No data available for this section Procedures Procedure Date Related Diagnosis Body Site Status Cholecystectomy Completed Social History Social History Type Response Substance Abuse Use: None. Alcohol Never Smoking Status Current every day smoker; Ready to change: No; Concerns about tobacco use in household: No; Exposure to Tobacco Smoke None; Cigarette Smoking Last 365 Days No; Reg Smoking Cessation Counseling No entered on: 12/31/17 Assessment and Plan Extracted from: Title: GI consult note Author: Yulisa Lee MD Date: 11/28/17 52-year-old male with known past medical history of chronic gallstone present episodes of right upper quadrant pain in the distant past, right lower extremity DVT for which he is on Eliquis,presents wit h complaints of acute right upper quadrant pain progressively worse over the past 2 days associated with nausea vomiting does not stop. He denies any chest pain or palpitations. Emergency department the patient clearly has severe right lower quadrant abdominal pain which is not improving with medications alone. CT scan and pelvis show s gallbladder distention up to 8.5 cm with a gallstone within the lumen. The right upper quadrant ultrasound shows cholelithiasis with sludge but no evidence of acute cholecystitis. Review of Systems Gastrointestinal: Nausea, Vomiting, Diarrhea, Abdominal pain. Health Status Allergies: Allergic Reactions (Selected) Severity Not Documented Penicillin- No reactions were documented. Quinolone antibiotics- No reactions were documented. Sulfa drugs- No reactions were documented., Allergies (3) Active Reaction penicillin None Documented quinolone antibiotics None Documented sulfa drugs None Documented Current medications: (Selected) Documented Medications Documented BuSpar: 15 mg, PO, Daily, 0 Refill(s) Eliquis: 5 mg, PO, BID, 0 Refill(s) Lexapro 20 mg oral tablet: 20 mg, 1 tab, PO, Daily, 0 Refill(s) NexIUM: 40 mg, PO, Daily, 0 Refill(s) SEROquel 200 mg oral tablet: 200 mg, 1 tab, PO, Daily, in the morning, 0 Refill (s) SEROquel 400 mg oral tablet: 400 mg, 1 tab, PO, Bedtime, 0 Refill(s) lisinopril: 5 mg, PO, Daily, 0 Refill(s) trazodone: 100 mg, PO, Bedtime, 0 Refill(s), Medications (13) Active Scheduled: (3) cefepime 1 gm INJ + sodium chloride 0.9% INJ 100 mL 1 gm, IVPB, [id number] dicyclomine 20 mg TAB 20 mg 1 tab, PO, QID pantoprazole 40 mg INJ 40 mg, IVP, BID Continuous: (1) sodium chloride 0.9% 1000 ml INJ 1,000 mL 1,000 mL, IV, 125 ml/hr PRN: (9) acetaminophen 650 mg/20.3ml oral LIQ 650 mg 20.3 mL, PO, Q4H ALPRAZolam 0.25 mg TAB 0.25 mg 1 tab, PO, Q6H diphenhydrAMINE 25 mg Tab 25 mg 1 tab, PO, Q8H docusate sodium 100 mg CAP 100 mg 1 cap, PO, BID hydrALAZINE 10 mg, IVP, Q6H MORPhine sulfate PF 2 mg/ml CARP 2 mg 1 mL, IVP, Q4H ondansetron 4 mg/2ml INJ VL 4 mg 2 mL, IVP, Q4H simethicone 80 mg CHEW 160 mg 2 tab, PO, Q4H traMADol 50 mg TAB 50 mg 1 tab, PO, Q6H Problem list: All Problems CKD (chronic kidney disease) / SNOMED CT 9002620968 / Confirmed Liver dysfunction / SNOMED CT 718276106 / Confirmed 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 Resolved: Gallstones / SNOMED CT 009471713, Active Problems (3) CKD (chronic kidney disease) Solano disease Liver dysfunction Histories Past Medical History: Active CKD (chronic kidney disease) (7151077544) Liver dysfunction (732739730) Solano disease (43431395) Resolved Gallstones (191857372): Resolved., chronic gallstone with episodes of right upper quadrant pain in the distant past, right lower extremity DVT for which she is on Eliquis, Family History: No family history items have been selected or recorded., Father due to OR greater than age 55, negative for any premature CVA Procedure history: No active procedure history items have been selected or recorded., NONE Social History Social & Psychosocial Habits Tobacco 05/23/2017 Use: Current every day smoker Ready to change: No Concerns about tobacco use in household: No Exposure to Tobacco Smoke None Cigarette Smoking Last 365 Days No Reg Smoking Cessation Counseling No 11/27/2017 Use: Current every day smoker Type: Cigarettes Ready to change: No Concerns about tobacco use in household: No Exposure to Tobacco Smoke Lives with someone who sm Cigarette Smoking Last 365 Days Yes Reg Smoking Cessation Counseling No . Alcohol use. Drug use: denies drug use. Physical Examination VS/Measurements Measurements from flowsheet : Measurements 11/27/2017 14:41 Heparin Dosing Weight (kg) 79.90 11/27/2017 14:41 Height 177.8 cm Height Collection Method Stated Weight 90.256 kg Dosing Weight Difference Percent -2.366 % Dosing Weight Collection Method Measured Body Surface Area 2.1113 m2 Body Mass Index 28.55 m2 11/27/2017 14:04 Weight 92.443 kg Dosing Weight Difference Percent 0 % Dosing Weight Collection Method Measured 11/27/2017 01:36 Weight 92.443 kg Dosing Weight Collection Method Measured Vitals Tmp(F) Pulse BP RR SpO2 FIO2 11/28 11:39 98.1 89 102/67 18 98 --- 11/28 07:00 97.7 78 100/64 18 95 --- 11/28 00:32 98.4 94 158/95 -- 95 --- 11/27 18:52 98.4 80 142/87 -- 95 --- 11/27 14:52 98.2 73 130/78 18 98 --- 24 Hr Tmax: 98.4F (36.89c) at 11/28 00:32 Vital Signs are the last 5 in the past 48 hours. General: Alert and oriented, Mild distress. Appearance: Ill. Skin: Normal for ethnicity. Eye: Pupils are equal, round and reactive to light, Extraocular movements are intact, Normal conjunctiva. Respiratory: Lungs are clear to auscultation, Respirations are non-labored, Breath sounds are equal, Symmetrical chest wall expansion. Cardiovascular: Normal rate, Regular rhythm, No murmur, No edema. Gastrointestinal: Soft, Non-distended, Normal bowel sounds. Abdomen: Right, Upper quadrant, Guarding, Tenderness, Not rigid. Musculoskeletal Normal range of motion. Normal strength. No tenderness. Integumentary: Warm, Dry, Intact. Neurologic: Alert, Oriented, No focal deficits, Cranial Nerves II-XII are grossly intact. Psychiatric: Cooperative, Appropriate mood & affect. CO2: 19 mEq/L Low (11/28/17 04:28:00) Chloride Lvl: 114 mEq/L High (11/28/17 04:28:00) Sodium Lvl: 141 mEq/L (11/28/17 04:28:00) Glucose Lvl: 136 mg/dL High (11/28/17 04:28:00) Calcium Lvl: 8.2 mg/dL Low (11/28/17 04:28:00) Potassium Lvl: 5.2 mEq/L High (11/28/17 04:28:00) BUN: 35 mg/dL High (11/28/17 04:28:00) AGAP: 13.2 mEq/L (11/28/17 04:28:00) Creatinine Lvl: 2.03 mg/dL High (11/28/17 04:28:00) Hct: 34.7 % Low (11/28/17 04:28:00) Hgb: 11.6 g/dL Low (11/28/17 04:28:00) MCH: 30.3 pg (11/28/17 04:28:00) MCHC: 33.4 g/dL (11/28/17 04:28:00) MCV: 90.7 fL (11/28/17 04:28:00) MPV: 7.8 fL (11/28/17 04:28:00) Platelet: 171 K/CMM (11/28/17 04:28:00) RBC: 3.83 M/CMM Low (11/28/17 04:28:00) RDW: 14.8 % High (11/28/17 04:28:00) WBC: 8.4 K/CMM (11/28/17 04:28:00) Basophils: 0.2 % (11/28/17 04:28:00) Eosinophils: 0.1 % (11/28/17 04:28:00) Eosinophils #: 0.3 K/CMM (11/27/17 01:50:00) Lymphocytes: 15.4 % Low (11/28/17 04:28:00) Lymphocytes #: 1.3 K/CMM (11/28/17 04:28:00) Monocytes: 3.7 % (11/28/17 04:28:00) Monocytes #: 0.3 K/CMM (11/28/17 04:28:00) Segs: 80.6 % High (11/28/17 04:28:00) Segs-Bands #: 6.8 K/CMM (11/28/17 04:28:00) Imaging Studies (last 36 hours) ED Abdomen/Pelvis IV contrast only CT 11/27/2017 08:48 Impression: 1. Mild gallbladder distention, measuring up to [...] aspect of the right lower lobe. SL: [id number] Abdomen RUQ US 11/27/2017 06:47 Impression: Limited exam due to overlying bowel gas. Cholelithiasis and gallbladder sludge without evidence to suggest acute cholecystitis. The visualized common bile duct is within normal caliber. Limited evaluation of the pancreas. SL: [id number] Impression and plan: Right upper quadrant pain: - likley from cholecystitis though no e/o cholecystitis on ultrasound of abdomen - Peptic ulcer disease needs to be ruled out - hemodynamically stable - no other complaints at this time plan; - will request pt to follow up with gi as an out pt for possible EGD for further eval if the pain remains persistent even after cholecystectomy - oral protonix 40mg daily for now - follow up further recommendations as per surgery team Extracted from: Title: Progress Note * Author: Anirudh Rich DO Date: 11/28/17 Impression and Plan Acute cholecystitis with cholelithiasis and subsequent leukocytosis Acute hyperkalemia CLARISSA with possible underlying CKD stage III Acute gastritis with nausea vomiting secondary to above Chronic right lower extremity DVT Plan: Keep the patient n.p.o. for medications, patient seen by general surgeon today. Give patient Kayexalate and albuterol, follow repeat labs later today. 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 Await evaluation from general surgery. Extracted from: Title: General Admission H&P * Author: Anirudh Rich DO Date: 11/27/17 Impression and Plan Acute cholecystitis with cholelithiasis and subsequent leukocytosis Acute gastritis with nausea vomiting secondary to above CLARISSA with possible underlying CKD stage III Chronic right lower extremity DVT Plan: Keep the patient n.p.o. 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 Await evaluation from general surgery.
--- OUTSIDE RECORDS SUMMARY | 2018-08-13 17:29 | XMS REPORT | Summary of Care ---
:1965 Author Organization [facility] Address [address] [place], [place] [address]- Encounter HQ Ronnie(FIN) [id number] Date(s): 12/31/17 - 01/04/18 [id number] [place] [address]- [phone] Encounter Diagnosis Acute kidney failure with tubular necrosis (Final) - 01/12/18 Acidosis (Final) - Sturgis's disease (Final) - Hypertensive chronic kidney disease with stage 1 through stage 4 chronic kidney disease, or unspecified chronic kidney disease (Final) - Chronic kidney disease, stage 3 (moderate) (Final) - Bipolar disorder, unspecified (Final) - Gastro-esophageal reflux disease without esophagitis (Final) - Hypocalcemia (Final) - Nicotine dependence, cigarettes, uncomplicated (Final) - Anemia, unspecified (Final) - Dehydration (Final) - Hypovolemia (Final) - Hematuria, unspecified (Final) - Personal history of other venous thrombosis and embolism (Final) - penitentiary (current) use of anticoagulants (Final) - Acquired absence of other specified parts of digestive tract (Final) - Discharge Disposition: Home or Self Care Attending Physician: Carmen Lund MD Admitting Physician: Carmen Lund MD Vital Signs Most recent to oldest 1 2 3 [Reference Range]: Height 177.8 cm 177.8 cm 180.34 cm (01/01/18 12:05 AM) (01/01/18 12:00 AM) (12/31/17 6:42 PM) Current Weight 84.5 kg (01/01/18 12:00 AM) Temperature Oral 98.7 DegF 97.8 DegF 98.5 DegF [96.4-99.1 DegF] (01/04/18 12:09 PM) (01/04/18 8:03 AM) (01/04/18 12:00 AM) Blood Pressure 100/67 mmHg 109/64 mmHg 96/61 mmHg [90-140/60-90 mmHg] (01/04/18 12:40 PM) (01/04/18 12:09 PM) (01/04/18 8:03 AM) Respiratory Rate [14-20 18 BRMIN 19 BRMIN 18 BRMIN BRMIN] (01/04/18 12:40 PM) (01/04/18 12:09 PM) (01/04/18 8:03 AM) Peripheral Pulse Rate 101 bpm 94 bpm 72 bpm [60-100 bpm] *HI* (01/04/18 12:09 PM) (01/04/18 8:03 AM) (01/04/18 12:40 PM) Weight 84.6 kg 86.364 kg (01/01/18 12:05 AM) (12/31/17 6:42 PM) Body Mass Index 26.76 m2 26.56 m2 (01/01/18 12:05 AM) (12/31/17 6:42 PM) Problem List Condition Effective Dates Status Health Status Informant Gallstones(Confirmed) Active Bipolar disorder(Confirmed) Active Calculus of gallbladder with chronic Active cholecystitis with obstruction(Confirmed) Calculus of gallbladder with chronic Active cholecystitis without obstruction(Confirmed) CKD (chronic kidney Active disease)(Confirmed) Liver dysfunction(Confirmed) Active DVT (deep venous Active thrombosis)(Confirmed) Kaveh disease(Confirmed) Active Allergies, Adverse Reactions, Alerts Substance Reaction Severity Status sulfa drugs Active quinolone antibiotics Active penicillin Active Food Tomatoes Active Medications acetaminophen 650 mg, 2 tab, Route: PO, Drug form: TAB, Q6H, Dosing Weight 86.364, kg, PRN Pain 1-3/Temp > 100.4 F, Start date: 12/31/17 23:32:00 CDT, Duration: 30 day , Stop date: 01/30/18 23:31:00 ACCOUNTING ANALYST Notes: Do not exceed 4 gm/day. (Same as: Tylenol) Start Date: 12/31/17 Stop Date: 01/04/18 Status: DiscontinuedbusPIRone 15 mg, 3 tab, Route: PO, Drug form: TAB, Daily, Dosing Weight 86.364, kg, Start date: 01/01/18 9:00:00 CDT, Duration: 30 day, Stop date: 01/30/18 9:00:00 ACCOUNTING ANALYST Notes: (Same As: Willempar) Start Date: 01/01/18 Stop Date: 01/04/18 Status: [id number] 1,000 mL + sodium acetate 2 mEq/mL intravenous solution 150 mEq 1,000 mL, Rate: 125 ml/hr, Infuse over: 8.6 hr, Route: IV, Dosing Weight 84.6 kg , Total Volume: 1,075, Start date: 01/01/18 11:55:00 CDT, Duration: 30 day, Stop date: 01/31/18 11:54:00 ACCOUNTING ANALYST, 2.06, m2 Start Date: 01/01/18 Stop Date: 01/04/18 Status: DiscontinuedDextrose 50% Syringe 25 gm, 50 mL, Route: IVP, Drug Form: INJ, Dosing Weight 86.364, kg, PRN, PRN Blood Glucose Results, Start date: 12/31/17 23:30:00 CDT, Duration: 30 day, Stop date: 01/30/18 22:29:00 ACCOUNTING ANALYST Start Date: 12/31/17 Stop Date: 01/04/18 Status: DiscontinuedDextrose 50% Syringe 12.5 gm, 25 mL, Route: IVP, Drug Form: INJ, Dosing Weight 86.364, kg, PRN, PRN Blood Glucose Results, Start date: 12/31/17 23:30:00 CDT, Duration: 30 day, Stop date: 01/30/18 22:29:00 ACCOUNTING ANALYST Start Date: 12/31/17 Stop Date: 01/04/18 Status: DiscontinuedEliquis 5 mg, 1 tab, Route: PO, Drug form: TAB, Q12H, Dosing Weight 86.364, kg, Start date: 01/01/18 9:00:00CDT, Duration: 30 day, Stop date: 01/30/18 21:00:00 ACCOUNTING ANALYST Notes: Same as: Eliquis Start Date: 01/01/18 Stop Date: 01/03/18 Status: DiscontinuedEliquis 2.5 mg oral tablet 2.5 mg=1 tab, PO, BID, # 60 tab, 0 Refill(s), Pharmacy: [facility]/pharmacy #[id number] Start Date: 01/04/18 Stop Date: 02/03/18 Status: Orderedferrous sulfate 325 mg, 1 tab, Route: PO, Drug form: TAB, TID, Dosing Weight 84.6, kg, Priority : NOW, Start date: 01/03/18 9:41:00 CDT, Duration: 30 day, Stop date: 02/02/18 6 :00:00 ACCOUNTING ANALYST Notes: Give with food.iron elemental [id number] as ferrous sulfateDose=___mg elemental iron Start Date: 01/03/18 Stop Date: 01/04/18 Status: DiscontinuedFlagyl 500 mg, 100 mL, Route: IVPB, Drug form: INJ, ABXQ8H, Dosing Weight 84.6, kg, Start date: 01/01/18 10:00:00 CDT, Duration: 7 day, Stop date: 01/08/18 2:00:00 CDT, ABX Indication: Infectious Diarrhea Notes: (Same as: Flagyl) Avoid alcohol. Start Date: 01/01/18 Stop Date: 01/03/18 Status: DiscontinuedFlomax 0.4 mg, 1 cap, Route: PO, Drug form: CAP, After Breakfast, Dosing Weight 84.6, kg, Start date: 01/04/18 8:30:00 CDT, Duration: 30 day, Stop date: 02/02/18 8:30 :00 ACCOUNTING ANALYST Notes: (Same As: Flomax) "Do Not Crush" Start Date: 01/04/18 Stop Date: 01/04/18 Status: Discontinuedfolic acid + Sodium Chloride 0.9% IV 50 mL 1 mg, 0.2 mL, Route: IVPB, Drug form: INJ, Daily, Dosing Weight 84.6, kg, Priority: NOW, Start date:01/03/18 9:39:00 CDT, Duration: 30 day, Stop date: 9:00:00 ACCOUNTING ANALYST Notes: (Same as: Folvite) Start Date: 01/03/18 Stop Date: 01/04/18 Status: Discontinuedfolic acid 1 mg oral tablet 1 mg=1 tab, PO, Daily, # 30 tab, 3 Refill(s), Pharmacy: [facility]/pharmacy #[id number] Start Date: 01/04/18 Stop Date: 05/04/18 Status: Orderedglucagon 1 mg, Route: IM, Drug form: PDR/INJ, PRN, Dosing Weight 86.364, kg, PRN Blood Glucose Results, Startdate: 12/31/17 23:30:00 CDT, Duration: 30 day, Stop date: 01/30/18 22:29:00 ACCOUNTING ANALYST Start Date: 12/31/17 Stop Date: 01/04/18 Status: Discontinuediron sulfate (ferrous sulfate) 325 mg oral tablet 325 mg=1 tab, PO, BID, # 60 tab, 2 Refill(s), Pharmacy: [facility]/pharmacy #[id number] Start Date: 01/04/18 Stop Date: 04/04/18 Status: OrderedLexapro 10 mg, 1 tab, Route: PO, Drug form: TAB, Daily, Dosing Weight 84.6, kg, Start date: 01/01/18 11:00:00 CDT, Duration: 30 day, Stop date: 01/31/18 9:00:00 ACCOUNTING ANALYST Notes: (Same as: Lexapro) Start Date: 01/01/18 Stop Date: 01/04/18 Status: Discontinuedlisinopril 5 mg, 1 tab, Route: PO, Drug form: TAB, Daily, Dosing Weight 86.364, kg, Start date: 01/01/18 9:00:00 CDT, Duration: 30 day, Stop date: 01/30/18 9:00:00 ACCOUNTING ANALYST Notes: (Same as: Prinivil, Zestril) Start Date: 01/01/18 Stop Date: 01/01/18 Status: Discontinuedmelatonin 3 mg, 1 tab, Route: PO, Drug form: TAB, Bedtime, Dosing Weight 86.364, kg, PRN Insomnia, Start date:12/31/17 23:32:00 CDT, Duration: 30 day, Stop date: 23:31:00 ACCOUNTING ANALYST Notes: (Same as: Melatonin) Start Date: 12/31/17 Stop Date: 01/04/18 Status: Discontinuedmorphine Sulfate 2 mg, 0.5 mL, Route: IVP, Drug form: SOLN, Q4H, Dosing Weight 86.364, kg, PRN Pain Score 7-10, Startdate: 12/31/17 23:32:00 CDT, Duration: 30 day, Stop date: 01/30/18 23:31:00 ACCOUNTING ANALYST Notes: (Same as:MORPhine Sulfate) Start Date: 12/31/17 Stop Date: 01/03/18 Status: Discontinuednicotine 14 mg, 1 patch, Route: TOP, Drug form: ERFILM, Daily, Dosing Weight 84.6, kg, Priority: NOW, Start date: 01/01/18 15:42:00 CDT, Duration: 30 day, Stop date: 01/31/18 9:00:00 ACCOUNTING ANALYST Notes: (Same as: Habitrol)"Remove old patch before application of new patch "WASTE: F/P - P Waste Black; E - P Waste Black Start Date: 01/01/18 Stop Date: 01/04/18 Status: Discontinuednormal saline 0.9% IV 1,000 mL 1,000 mL, Rate: 150 ml/hr, Infuse over: 6.7 hr, Route: IV, Dosing Weight 86.364 kg, Total Volume: 1,000, Start date: 12/31/17 23:30:00 CDT, Duration: 30 day, Stop date: 01/30/18 23:29:00 ACCOUNTING ANALYST, 2.09, m2 Start Date: 12/31/17 Stop Date: 01/01/18 Status: DiscontinuedNS (Bolus) IV 500 mL, 500 ml/hr, Infuse Over: 1 hr, Route: IV, 500, Drug form: INJ, ONCE, Priority: STAT, Dosing Weight 86.364 kg, Start date: 12/31/17 21:05:00 CDT, Stop date: 12/31/17 21:05:00 CDT Start Date: 12/31/17 Stop Date: 12/31/17 Status: Completedondansetron 4 mg, 2 mL, Route: IVP, Drug form: INJ, Q8H, Dosing Weight 86.364, kg, PRN Nausea & Vomiting, Start date: 12/31/17 23:30:00 CDT, Duration: 30 day, Stop date: 01/30/18 23:29:00 ACCOUNTING ANALYST Notes: (Same as: Zofran) MEDICATION WASTE Product Size: 4 mgProduct Wasted: ___ mg Start Date: 12/31/17 Stop Date: 01/04/18 Status: Discontinuedoxybutynin 5 mg oral tablet, extended release 5 mg=1 tab, PO, Daily, # 30 tab, 1 Refill(s), Pharmacy: [facility]/pharmacy #[id number] Start Date: 01/04/18 Status: OrderedoxyCODONE 5 mg immediate release 5 mg, 1 tab, Route: PO, Drug form: TAB, Q4H, Dosing Weight 86.364, kg, PRN Pain Score 4-6, Start date: 12/31/17 23:32:00 CDT, Duration: 30 day, Stop date: 01/30 23:31:00 ACCOUNTING ANALYST Notes: (Same as: Roxicodone) Start Date: 12/31/17 Stop Date: 01/03/18 Status: DiscontinuedPhenergan + Sodium Chloride 0.9% IV 50 mL 25 mg, 1 mL, Route: IVPB, Drug form: INJ, ONCE, Dosing Weight 86.364, kg, Priority: STAT, Start date: 12/31/17 21:04:00 CDT, Stop date: 12/31/17 21:04:00 CDT Notes: Do not give IV push. (Same as: Phenergan) Start Date: 12/31/17 Stop Date: 12/31/17 Status: Completedpotassium chloride 20 mEq/15 mL oral liquid 40 mEq, 2 pkt, Route: PO, Drug form: PDR/REC, ONCE, Dosing Weight 84.6, kg, Start date: 01/03/18 17:41:00 CDT, Stop date: 01/03/18 17:41:00 CDT Notes: (Same as: K-Tania) With food and full glass of water Start Date: 01/03/18 Stop Date: 01/03/18 Status: CompletedProtonix 40 mg, 1 tab, Route: PO, Drug form: ECTAB, Daily, Dosing Weight 84.6, kg, Start date: 01/01/18 11:00:00 CDT, Duration: 30 day, Stop date: 01/31/18 9:00:00 ACCOUNTING ANALYST Notes: Tablet should not be chewed or crushed.(Same as: Protonix) Start Date: 01/01/18 Stop Date: 01/04/18 Status: DiscontinuedQUEtiapine 100 mg oral tablet 300 mg=3 tab, PO, Bedtime, 0 Refill(s) Start Date: 01/04/18 Status: OrderedSaline Flush 0.9% 10 mL, Route: IVP, Drug Form: INJ, Dosing Weight 86.364, kg, PRN, PRN Line Flush , Start date: 12/31/17 19:29:00 CDT, Duration: 30 day, Stop date: 01/30/18 18:28 :00 ACCOUNTING ANALYST Notes: (Same as: BD Posiflush) Start Date: 12/31/17 Stop Date: 01/04/18 Status: DiscontinuedSEROquel 300 mg, 3 tab, Route: PO, Drug form: TAB, Bedtime, Dosing Weight 86.364, kg, Start date: 01/01/18 21:00:00 CDT, Duration: 30 day, Stop date: 01/30/18 21:00: 00 ACCOUNTING ANALYST Notes: (Same as: SEROquel) Start Date: 01/01/18 Stop Date: 01/04/18 Status: Discontinuedsodium bicarbonate 150 mEq + Dextrose 5% in Water IV 850 mL 850 mL, Rate: 100 ml/hr, Infuse over: 10 hr, Route: IV, Dosing Weight 84.6 kg, Total Volume: 1,000, Start date: 01/01/18 11:00:00 CDT, Duration: 30 day, Stop date: 01/31/18 10:59:00 ACCOUNTING ANALYST, 2.06, m2 Notes: (sodium bicarb 8.4% (1 mEq/ml) 50 ml VL) Start Date: 01/01/18 Stop Date: 01/01/18 Status: Discontinuedsodium bicarbonate 150 mEq + Dextrose 5% in Water IV 850 mL 850 mL, Rate: 100 ml/hr, Infuse over: 10 hr, Route: IV, Dosing Weight 84.6 kg, Total Volume: 1,000, Start date: 01/01/18 12:44:00 CDT, Duration: 1 doses or times, Stop date: 01/01/18 22:43:00 CDT, 2.06, m2 Notes: (sodium bicarb 8.4% (1 mEq/ml) 50 ml VL) Start Date: 01/01/18 Stop Date: 01/01/18 Status: Completedsodium bicarbonate 8.4% additive 150 mEq + D5W 1000 mL 1,000 mL, Rate: 100 ml/hr, Infuse over: 10 hr, Route: IV, Dosing Weight 84.6 kg , Total Volume: 1,000, Start date: 01/01/18 9:10:00 CDT, Duration: 30 day, Stop date: 01/31/18 9:09:00 ACCOUNTING ANALYST, 2.06, m2 Start Date: 01/01/18 Stop Date: 01/01/18 Status: Discontinuedtrazodone 100 mg, 1 tab, Route: PO, Drug form: TAB, Bedtime, Dosing Weight 84.6, kg, PRN Sleep, Start date: 01/01/18 9:39:00 CDT, Duration: 30 day, Stop date: 01/31/18 9 :38:00 ACCOUNTING ANALYST Notes: (Same As: Desyrel) Start Date: 01/01/18 Stop Date: 01/04/18 Status: Discontinuedtrazodone 50 mg oral tablet 50 mg, 1 tab, Route: PO, Drug form: TAB, Bedtime, Dosing Weight 86.364, kg, PRN Insomnia, Start date: 12/31/17 23:35:00 CDT, Duration: 1 day, Stop date: 23:34:00 CDT Notes: (Same As: Desyrel) Start Date: 12/31/17 Stop Date: 01/01/18 Status: DiscontinuedTylenol 975 mg, 3 tab, Route: PO, Drug form: TAB, ONCE, Dosing Weight 86.364, kg, Priority: STAT, Start date: 12/31/17 21:04:00 CDT, Stop date: 12/31/17 21:04:00 CDT Notes: Do not exceed 4 gm/day. (Same as: Tylenol) Start Date: 12/31/17 Stop Date: 12/31/17 Status: CompletedTylenol with Codeine #3 oral tablet 1 tab, Route: PO, Drug Form: TAB, Dosing Weight 84.6, kg, Q6H, PRN Pain Score 4- 6, Start date: 01/03/18 15:02:00 CDT, Duration: 30 day, Stop date: 02/02/18 15: 01:00 ACCOUNTING ANALYST Notes: Do not exceed 4gm/day of acetaminophen. (Same as: Tylenol with Codeine # 3) Start Date: 01/03/18 Stop Date: 01/04/18 Status: Discontinuedzolpidem 5 mg, 1 tab, Route: PO, Drug form: TAB, Bedtime, Dosing Weight 84.6, kg, Start date: 01/01/18 21:00:00 CDT, Duration: 30 day, Stop date: 01/30/18 21:00:00 ACCOUNTING ANALYST Notes: (Same As: Masoud) Start Date: 01/01/18 Stop Date: 01/04/18 Status: Discontinued Results Most recent to oldest 1 2 3 [Reference Range]: Neutrophils # [1.5-8.1 4.5 K/CMM K/CMM] (12/31/17 7:48 PM) Lymphocytes # [1.0-5.5 2.0 K/CMM K/CMM] (12/31/17 7:48 PM) Monocytes # [0.0-0.8 0.4 K/CMM K/CMM] (12/31/17 7:48 PM) Eosinophils # [0.0-0.5 0.2 K/CMM K/CMM] (12/31/17 7:48 PM) U Prot/Creat 0.35 *NA* (01/02/18 5:05 PM) eGFR 42 mL/min/1.73m2 1 27 mL/min/1.73m2 2 25 mL/min/1.73m2 3 *NA* *NA* *NA* (01/04/18 4:54 AM) (01/03/18 2:54 AM) (01/02/18 4:50 AM) UDS Note See Note (01/01/18 8:10 AM) % Satur Fe [12-57 %] 38 % (01/02/18 4:50 AM) A/G Ratio [0.7-1.6] 1.0 1.0 (01/01/18 4:32 AM) (12/31/17 7:48 PM) Albumin Lvl [3.5-5.0 3.1 g/dL 3.9 g/dL g/dL] *LOW* (12/31/17 7:48 PM) (01/01/18 4:32 AM) Alk Phos [39-136 unit/L] 94 unit/L 125 unit/L (01/01/18 4:32 AM) (12/31/17 7:48 PM) ALT [0-65 unit/L] 17 unit/L 21 unit/L (01/01/18 4:32 AM) (12/31/17 7:48 PM) U Amph Scr [Negative] Negative *NA* (01/01/18 8:10 AM) AGAP [10.0-20.0 mEq/L] 8.5 mEq/L 10.4 mEq/L 11.6 mEq/L *LOW* (01/03/18 2:54 AM) (01/02/18 4:50 AM) (01/04/18 4:54 AM) AST [0-37 unit/L] 10 unit/L 15 unit/L (01/01/18 4:32 AM) (12/31/17 7:48 PM) B/C Ratio [6-25] 20 16 (01/01/18 4:32 AM) (12/31/17 7:48 PM) U Kami Scr [Negative] Negative *NA* (01/01/18 8:10 AM) Basophils [0.0-1.0 %] 0.6 % (12/31/17 7:48 PM) U Benzodiaz Scr Negative [Negative] *NA* (01/01/18 8:10 AM) BUN [7-22 mg/dL] 35 mg/dL 59 mg/dL 79 mg/dL *HI* *HI* *HI* (01/04/18 4:54 AM) (01/03/18 2:54 AM) (01/02/18 4:50 AM) Calcium Lvl [8.5-10.5 7.2 mg/dL 7.4 mg/dL 7.7 mg/dL mg/dL] *LOW* *LOW* *LOW* (01/04/18 4:54 AM) (01/03/18 2:54 AM) (01/02/18 4:50 AM) Total CK [12-191 unit/L] 86 unit/L 206 unit/L (01/02/18 4:50 AM) *HI* (12/31/17 8:20 PM) Chloride Lvl [95-109 105 mEq/L 108 mEq/L 114 mEq/L mEq/L] (01/04/18 4:54 AM) (01/03/18 2:54 AM) *HI* (01/02/18 4:50 AM) CO2 [24-32 mEq/L] 32 mEq/L 29 mEq/L 23 mEq/L (01/04/18 4:54 AM) (01/03/18 2:54 AM) *LOW* (01/02/18 4:50 AM) U Cocaine Scr [Negative] Negative *NA* (01/01/18 8:10 AM) Creatinine Lvl 1.85 mg/dL 2.64 mg/dL 2.86 mg/dL [0.50-1.40 mg/dL] *HI* *HI* *HI* (01/04/18 4:54 AM) (01/03/18 2:54 AM) (01/02/18 4:50 AM) D-Dimer 0.47 ug/mL FEU *NA* (01/02/18 4:50 AM) Eosinophils [0.0-4.0 %] 3.0 % (12/31/17 7:48 PM) Ferritin Lvl [22-275 48 ng/mL ng/mL] (01/02/18 4:50 AM) Folate Lvl [>=3.0 ng/mL] 2.9 ng/mL *LOW* (01/02/18 4:50 AM) Globulin [2.7-4.2 g/dL] 3.1 g/dL 4.0 g/dL (01/01/18 4:32 AM) (12/31/17 7:48 PM) Glucose Lvl [70-99 90 mg/dL 161 mg/dL 91 mg/dL mg/dL] (01/04/18 4:54 AM) *HI* (01/02/18 4:50 AM) (01/03/18 2:54 AM) Hct [42.0-54.0 %] 28.7 % 27.0 % 27.1 % *LOW* *LOW* *LOW* (01/04/18 4:54 AM) (01/03/18 2:54 AM) (01/02/18 4:50 AM) Hgb [14.0-18.0 g/dL] 9.6 g/dL 9.1 g/dL 9.3 g/dL *LOW* *LOW* *LOW* (01/04/18 4:54 AM) (01/03/18 2:54 AM) (01/02/18 4:50 AM) Hgb A1C [<=5.6 %] 5.4 % (01/01/18 4:35 AM) Iron [45-160 ug/dl] 92 ug/dl (01/02/18 4:50 AM) Potassium Lvl [3.5-5.1 3.5 mEq/L 3.4 mEq/L 3.6 mEq/L mEq/L] (01/04/18 4:54 AM) *LOW* (01/02/18 4:50 AM) (01/03/18 2:54 AM) Lactic Acid Lvl [0.5-2.2 0.4 mMol/L mMol/L] *LOW* (12/31/17 11:17 PM) Lipase Lvl [73-393 205 unit/L unit/L] (12/31/17 7:48 PM) Lymphocytes [20.0-40.0 28.2 % %] (12/31/17 7:48 PM) MCH [27.0-31.0 pg] 30.0 pg 29.1 pg (01/02/18 4:50 AM) (12/31/17 7:48 PM) MCHC [32.0-36.0 g/dL] 34.3 g/dL 32.9 g/dL (01/02/18 4:50 AM) (12/31/17 7:48 PM) MCV [80.0-94.0 fL] 87.5 fL 88.4 fL (01/02/18 4:50 AM) (12/31/17 7:48 PM) Monocytes [2.0-12.0 %] 5.8 % (12/31/17 7:48 PM) MPV [7.4-10.4 fL] 8.5 fL 8.6 fL (01/02/18 4:50 AM) (12/31/17 7:48 PM) Sodium Lvl [135-145 142 mEq/L 144 mEq/L 145 mEq/L mEq/L] (01/04/18 4:54 AM) (01/03/18 2:54 AM) (01/02/18 4:50 AM) U Opiate Scr [Negative] Positive *ABN* (01/01/18 8:10 AM) U Phencyclidine Scr Negative [Negative] *NA* (01/01/18 8:10 AM) Phosphorus [2.5-4.5 5.3 mg/dL mg/dL] *HI* (01/01/18 4:32 AM) Platelet [133-450 K/CMM] 136 K/CMM 175 K/CMM (01/02/18 4:50 AM) (12/31/17 7:48 PM) Segs [45.0-75.0 %] 62.4 % (12/31/17 7:48 PM) Total Protein [6.4-8.4 6.2 g/dL 7.9 g/dL g/dL] *LOW* (12/31/17 7:48 PM) (01/01/18 4:32 AM) RBC [4.70-6.10 M/CMM] 3.10 M/CMM 4.16 M/CMM *LOW* *LOW* (01/02/18 4:50 AM) (12/31/17 7:48 PM) RDW [11.5-14.5 %] 15.7 % 15.7 % *HI* *HI* (01/02/18 4:50 AM) (12/31/17 7:48 PM) Bili Total [0.2-1.3 0.2 mg/dL 0.3 mg/dL mg/dL] (01/01/18 4:32 AM) (12/31/17 7:48 PM) U Cannab Scr [Negative] Negative *NA* (01/01/18 8:10 AM) TIBC [228-428 ug/dl] 244 ug/dl (01/02/18 4:50 AM) Troponin-I [0.00-0.40 <0.02 ng/mL ng/mL] (12/31/17 7:48 PM) UA Bili [Negative] Negative Negative *NA* *NA* (01/02/18 5:05 PM) (12/31/17 7:53 PM) UA Blood [Negative] Large Small *ABN* *ABN* (01/02/18 5:05 PM) (12/31/17 7:53 PM) UA Color [Yellow] Yellow Yellow *NA* *NA* (01/02/18 5:05 PM) (12/31/17 7:53 PM) U Creatinine 52.10 mg/dL 52.10 mg/dL *NA* *NA* (01/02/18 5:05 PM) (01/02/18 5:05 PM) UA Glucose [Negative Negative mg/dL Negative mg/dL mg/dL] *NA* *NA* (01/02/18 5:05 PM) (12/31/17 7:53 PM) UA Ketones [Negative Negative mg/dL Negative mg/dL mg/dL] *NA* *NA* (01/02/18 5:05 PM) (12/31/17 7:53 PM) UA Leuk Est [Negative] Negative Negative (01/02/18 5:05 PM) (12/31/17 7:53 PM) UA Mucus [None Seen Few /LPF Few /LPF Few /LPF /LPF] *NA* *NA* *NA* (01/03/18 9:28 PM) (01/02/18 5:05 PM) (12/31/17 7:53 PM) UA Nitrite [Negative] Negative Negative (01/02/18 5:05 PM) (12/31/17 7:53 PM) UA pH [5.0-8.0] 6.0 5.0 (01/02/18 5:05 PM) (12/31/17 7:53 PM) U Protein 18.3 mg/dL *NA* (01/02/18 5:05 PM) UA Protein [Negative Negative mg/dL Negative mg/dL mg/dL] (01/02/18 5:05 PM) (12/31/17 7:53 PM) UA RBC [0-2 /HPF] 6 /HPF 29 /HPF 2 /HPF *HI* *HI* (12/31/17 7:53 PM) (01/03/18 9:28 PM) (01/02/18 5:05 PM) U Sodium 43 mEq/L *NA* (01/02/18 5:05 PM) UA Spec Grav [<=1.030] 1.006 1.010 (01/02/18 5:05 PM) (12/31/17 7:53 PM) UA Sq Epi [Few /LPF] Occasional /LPF Occasional /LPF Occasional /LPF *NA* *NA* *NA* (01/03/18 9:28 PM) (01/02/18 5:05 PM) (12/31/17 7:53 PM) UA Turbidity [Clear] Clear Clear (01/02/18 5:05 PM) (12/31/17 7:53 PM) UA Urobilinogen [0.1-1.0 <=1.0 mg/dL <=1.0 mg/dL mg/dL] *NA* *NA* (01/02/18 5:05 PM) (12/31/17 7:53 PM) UA WBC [0-5 /HPF] 1 /HPF <1 /HPF 3 /HPF (01/03/18 9:28 PM) (01/02/18 5:05 PM) (12/31/17 7:53 PM) UIBC [110-370 ug/dl] 152 ug/dl (01/02/18 4:50 AM) Vitamin B12 Lvl 519 pg/mL [254-1320 pg/mL] (01/02/18 4:50 AM) WBC [3.7-10.4 K/CMM] 5.8 K/CMM 7.2 K/CMM (01/02/18 4:50 AM) (12/31/17 7:48 PM) 1Result Comment: The eGFR is calculated [...] eGFR should be multiplied by the estimated BMI.Microbiology Reports TEST:Culture: Urine STATUS:Auth (Verified) BODY SITE: SOURCE:Urine, Clean Catch COLLECTED DATE/TIME:01/03/18 9:28 PMFINAL REPORTNo Growth Immunizations No data available for this section [...] 12/31/17 Assessment and Plan Extracted from: Title: RENAL progress note Author: Jonathan Shepherd MD Date: 01/04/18 Impression and Plan acute kidney injury on chronic kidney disease is stage III in this patient with known history of chronic kidney disease, He reports his GFR was 32 1-1/2 years ago Left lateral and left flank pain etiology of which is unclear Recent cholecystectomy Mild chronic anemia Hypocalcemia History of essential hypertension on SUZANNE inhibitors Nausea and vomiting ever since his cholecystectomy Hypovolemia PLAN === 1. CLARISSA slolwy improving ok to d/c from renal no LISINOPRIL after d/c renal FU in 2 weeks 2. CKD sec to 3. ACIDOSIS sodium bicarb PO(to go home with bicarb) 4. HEMATURIA unclear etio Uro consult requested reviewed CT renal stone d/w PMD thanks dr. curry for this consutl [facility] IM / Nephrology Attending [facility] [id number], [facility] [id number] Extracted from: Title: General Admission H&P * Author: Carmen Lund MD Date: 12/31/17 Impression and Plan 1. Acute renal failure 2. CKD history 3. Anion gap metabolic acidosis 4. pmh of Bipolar disorder 5. GERD 6. DVT on anticoagulation PLAN: Admit to inpatient unit - anticipate 2 night stay CLARISSA: Likely prerenal secondary to fluid losses and poor po intake. IVF, I/O monitoring, labs for work up, CPK, Tox screen, [facility] Nephrology consult Cont home medications incl anticoagulation GI, VTE ppx Pt full code
--- OUTSIDE RECORDS SUMMARY | 2018-08-13 17:29 | XMS REPORT | Summary of Care ---
:1965 Author Organization [facility] Address [address] [place], [place] [address]- Encounter HQ Ronnie(FIN) [id number] Date(s): 11/29/17 - 12/01/17 [facility] [address] [place] [address]- [phone] Encounter Diagnosis Calculus of gallbladder with acute and chronic cholecystitis without obstruction (Final) - 02/12/18 Acute kidney failure, unspecified (Final) - Chronic embolism and thrombosis of unspecified deep veins of right lower extremity (Final) - Chronic kidney disease, stage 3 (moderate) (Final) - Dehydration (Final) - Hyperkalemia (Final) - Nicotine dependence, cigarettes, uncomplicated (Final) - Acute gastritis without bleeding (Final) - Discharge Disposition: Home or Self Care Attending Physician: Anirudh Rich DO Admitting Physician: Anirudh Rich DO Vital Signs Most recent to oldest 1 2 3 [Reference Range]: Height 177.8 cm 177.8 cm (11/29/17 7:42 PM) (11/29/17 10:32 AM) Temperature Oral [96.4-99.1 98.0 DegF 98.6 DegF 98.1 DegF DegF] (12/01/17 3:45 PM) (12/01/17 7:43 AM) (12/01/17 12:22 AM) Blood Pressure [90-140/60-90 124/75 mmHg 120/75 mmHg 130/82 mmHg mmHg] (12/01/17 3:45 PM) (12/01/17 7:43 AM) (12/01/17 12:22 AM) Respiratory Rate [14-20 18 BRMIN 16 BRMIN 18 BRMIN BRMIN] (12/01/17 3:45 PM) (12/01/17 7:43 AM) (12/01/17 7:09 AM) Peripheral Pulse Rate [60-100 96 bpm 88 bpm 96 bpm bpm] (12/01/17 3:45 PM) (12/01/17 7:43 AM) (12/01/17 12:22 AM) Weight 90 kg 90.909 kg (11/29/17 7:42 PM) (11/29/17 10:32 AM) Body Mass Index 28.47 m2 28.76 m2 (11/29/17 7:42 PM) (11/29/17 10:32 AM) Problem List Condition Effective Dates Status Health [...] PO, Drug form: LIQ, Q4H, Dosing Weight 90.909, kg, PRN Pain 1-3/Temp > 100.4 F, Start date: 11/29/17 16:05:00 CDT, Duration: 30 day , Stop date: 12/29/17 16:04:00 CDT Notes: Max [id number]=3513zs/day (4 gm/day). (Same as: Tylenol) Start Date: 11/29/17 Stop Date: 12/01/17 Status: DiscontinuedANES flumazenil 0.2 mg, 2 mL, Route: IVP, Drug form: INJ, PRN, Dosing Weight 90, kg, PRN Benzodiazepine Reversal, Initial dose, Start date: 11/30/17 12:36:00 CDT, Duration: 12 hr, Stop date: 12/01/17 0:35:00 CDT Notes: (Same as: Romazicon) Start Date: 11/30/17 Stop Date: 12/01/17 Status: CompletedANES hydrALAZINE 10 mg, 0.5 mL, Route: IVP, Drug form: INJ, Q20Min, Dosing Weight 90, kg, PRN Elevated BP, Start date: 11/30/17 12:36:00 CDT, Duration: 2 doses or times, Stop date: 12/01/17 0:00:00 CDT Notes: (Same as: Apresoline)Push over 5 minutes Start Date: 11/30/17 Stop Date: 12/01/17 Status: CompletedANES HYDROmorphone 0.5 mg, 0.5 mL, Route: IVP, Drug form: INJ, Q5Min, Dosing Weight 90, kg, PRN Pain Score 7-10, Start date: 11/30/17 12:36:00 CDT, Duration: 4 doses or times, Stop date: 12/01/17 0:00:00 CDT Notes: Same as: Dilaudid Start Date: 11/30/17 Stop Date: 12/01/17 Status: CompletedANES metoprolol 1 mg, 1 mL, Route: IVP, Drug form: INJ, Q5Min, Dosing Weight 90, kg, PRN Other - See Comment, Start date: 11/30/17 12:36:00 CDT, Duration: 5 doses or times, Stop date: 12/01/17 0:00:00 CDT Notes: (Same as: Lopressor)Push over 2 minutes Start Date: 11/30/17 Stop Date: 12/01/17 Status: CompletedANES morphine Sulfate 2 mg, 1 mL, Route: IVP, Drug form: INJ, Q5Min, Dosing Weight 90, kg, PRN Pain Score 4-6, Start date:11/30/17 12:36:00 CDT, Duration: 5 doses or times, Stop date: 12/01/17 0:00:00 CDT Notes: (Same as:MORPhine Sulfate) Start Date: 11/30/17 Stop Date: 12/01/17 Status: CompletedANES naloxone 0.4 mg, 1 mL, Route: IVP, Drug form: INJ, Q2MIN, Dosing Weight 90, kg, PRN Narcotic Reversal, Start date: 11/30/17 12:36:00 CDT, Duration: 8 doses or times , Stop date: 12/01/17 0:00:00 CDT Notes: Same as Narcan Start Date: 11/30/17 Stop Date: 12/01/17 Status: CompletedANES ondansetron 4 mg, 2 mL, Route: IVP, Drug form: INJ, ONCE, Dosing Weight 90, kg, PRN Nausea & amp; Vomiting, Startdate: 11/30/17 12:36:00 CDT Notes: (Same as: Liz) MEDICATION WASTE Product Size: 4 mgProduct Wasted: ___ mg Start Date: 11/30/17 Stop Date: 12/01/17 Status: Discontinuedaspirin 324 mg, 4 tab, Route: CHEW, Drug form: CHEWTAB, ONCE, Dosing Weight 90.909, kg, Start date: 11/29/1816:16:00 CDT, Stop date: 11/29/17 17:16:00 CDT Notes: Take with food. Start Date: 11/29/17 Stop Date: 11/29/17 Status: CompletedBentyl 20 mg, 1 tab, Route: PO, Drug form: TAB, QID, Dosing Weight 90.909, kg, Start date: 11/29/17 17:00:00 CDT, Duration: 30 day, Stop date: 12/29/17 13:00:00 CDT Notes: (Same as: Bentyl) Start Date: 11/29/17 Stop Date: 12/01/17 Status: DiscontinuedBuSpar 15 mg, PO, Daily, 0 Refill(s) Start Date: 11/29/17 Status: OrderedBuSpar 15 mg, 3 tab, Route: PO, Drug form: TAB, BID, Dosing Weight 90, kg, Start date: 12/01/17 9:00:00 CDT, Duration: 30 day, Stop date: 12/30/17 21:00:00 CDT Notes: (Same As: BuSpar) Start Date: 12/01/17 Stop Date: 12/01/17 Status: Discontinuedcalcium gluconate 2 gm, 100 mL, Route: IVPB, Drug form: INJ, PRN, Dosing Weight 90.909, kg, PRN Abnormal Lab Result, For NON-ICU Patients Only., Start date: 11/29/17 16:06:00 CDT, Duration: 30 day, Stop date: 12/29/17 16:05:00 CDT Notes: WASTE: F/P - Sink; E - Municipal Trash Bin Start Date: 11/29/17 Stop Date: 12/01/17 Status: Discontinuedcalcium gluconate + Sodium Chloride 0.9% IV 150 mL 3 gm, 30 mL, Route: IVPB, PRN, Dosing Weight 90.909, kg, PRN Abnormal Lab Result , For NON-ICU Patients Only., Start date: 11/29/17 16:06:00 CDT, Duration: 30 day, Stop date: 12/29/17 16:05:00 CDT Notes: WASTE: F/P - Sink; E - Municipal Trash Bin Start Date: 11/29/17 Stop Date: 12/01/17 Status: Discontinuedcefepime + Sodium Chloride 0.9% IV 100 mL 1 gm, Route: IVPB, [id number], Dosing Weight 90.909, kg, (CrCl >/=50 ml/min), Start date: 11/29/17 17:00:00 CDT, Duration: 30 day, Stop date: 12/29/17 5:00: 00 CDT, ABX Indication: Intra-abdominal Infection Notes: (Same As: Maxipime) MEDICATION WASTE Product Size: 1000 mgProduct Wasted: ___ mg Start Date: 11/29/17 Stop Date: 12/01/17 Status: DiscontinuedColace 100 mg oral capsule 100 mg, 1 cap, Route: PO, Drug form: CAP, BID, Dosing Weight 90.909, kg, PRN Constipation, Start date: 11/29/17 16:05:00 CDT, Duration: 30 day, Stop date: 16:04:00 CDT Notes: (Same as: Colace) (Do Not Crush) Start Date: 11/29/17 Stop Date: 12/01/17 Status: Discontinueddexamethasone (ANES) Route: IV, Drug form: INJ, ONCE, Stop date: 11/30/17 13:59:00 CDT Start Date: 11/30/17 Stop Date: 11/30/17 Status: CompletedePHEDrine (ANES) Route: IV, Drug form: INJ, ONCE, Stop date: 11/30/17 14:04:00 CDT Start Date: 11/30/17 Stop Date: 11/30/17 Status: CompletedfentaNYL (ANES) Route: IV, Drug form: INJ, ONCE, Stop date: 11/30/17 13:59:00 CDT Start Date: 11/30/17 Stop Date: 11/30/17 Status: CompletedFlagyl 500 mg, Route: IVPB, ONCE, Dosing Weight 90.909, kg, Priority: STAT, Start date : 11/29/17 13:16:00 CDT, Stop date: 11/29/17 13:16:00 CDT, ABX Indication: Intra -abdominal Infection Start Date: 11/29/17 Stop Date: 11/29/17 Status: CompletedGas-X Ultra Softgels 160 mg, 2 tab, Route: PO, Drug form: CHEWTAB, Q4H, Dosing Weight 90.909, kg, PRN Gas, Start date: 11/29/17 16:05:00 CDT, Duration: 30 day, Stop date: 16:04:00 CDT Notes: (Same as: Mylicon) Start Date: 11/29/17 Stop Date: 12/01/17 Status: Discontinuedglycopyrrolate (ANES) Route: IV, Drug form: INJ, ONCE, Stop date: 11/30/17 14:32:00 CDT Start Date: 11/30/17 Stop Date: 11/30/17 Status: CompletedhydrALAZINE 10 mg, 0.5 mL, Route: IVP, Drug form: INJ, Q6H, Dosing Weight 90.909, kg, PRN Other -See Comment, Start date: 11/29/17 16:05:00 CDT, Duration: 30 day, Stop date: 12/29/17 16:04:00 CDT, SBP>/=160 OR DBP>/=90 Notes: (Same as: Apresoline)Push over 5 minutes Start Date: 11/29/17 Stop Date: 12/01/17 Status: DiscontinuedLactated Ringers Injection IV (ANES) 1000 mL Route: IV, Total Volume: 1,000, Start date: 11/30/17 12:44:00 CDT, Stop date: 13:44:00 CDT Start Date: 11/30/17 Stop Date: 11/30/17 Status: CompletedLactated Ringers Injection IV 1,000 mL 1,000 mL, Rate: 25 ml/hr, Infuse over: 40 hr, Route: IV, Dosing Weight 90 kg, Total Volume: 1,000, Start date: 11/30/17 12:33:00 CDT, Stop date: 12/01/17 9:57 :00 CDT, 2.12, m2 Start Date: 11/30/17 Stop Date: 12/01/17 Status: CompletedLactated Ringers IV 1,000 mL 1,000 mL, Rate: 40 ml/hr, Infuse over: 25 hr, Route: IV, Dosing Weight 90 kg, Total Volume: 1,000, Start date: 11/30/17 12:22:00 CDT, Stop date: 12/01/17 9:57 :00 CDT, 2.12, m2 Start Date: 11/30/17 Stop Date: 12/01/17 Status: Completedlidocaine (ANES) Route: IV, Drug form: INJ, ONCE, Stop date: 11/30/17 13:59:00 CDT Start Date: 11/30/17 Stop Date: 11/30/17 Status: Completedlisinopril 5 mg, 1 tab, Route: PO, Drug form: TAB, BID, Dosing Weight 90, kg, Start date: 12/01/17 9:00:00 CDT,Duration: 30 day, Stop date: 12/30/17 21:00:00 CDT Notes: (Same as: Prinivil, Zestril) Start Date: 12/01/17 Stop Date: 12/01/17 Status: Discontinuedlisinopril 5 mg oral tablet 5 mg=1 tab, PO, Daily, # 30 tab, 0 Refill(s) Start Date: 11/29/17 Stop Date: 01/04/18 Status: Discontinuedmagnesium oxide 800 mg, 2 tab, Route: PO, Drug form: TAB, PRN, Dosing Weight 90.909, kg, PRN Abnormal Lab Result, For NON-ICU Patients Only., Start date: 11/29/17 16:06:00 CDT, Duration: 30 day, Stop date: 12/29/17 16:05:00 CDT Notes: (Same as: Mag-Ox 400)Magnesium oxide [id number] elemental magnesiumDose= ____mg magnesium oxide (___mg elemental magnesium) Start Date: 11/29/17 Stop Date: 12/01/17 Status: Discontinuedmagnesium sulfate 2 gm, 50 mL, Route: IVPB, Drug form: INJ, PRN, Dosing Weight 90.909, kg, PRN Abnormal Lab Result, For NON-ICU Patients Only., Start date: 11/29/17 16:06:00 CDT, Duration: 30 day, Stop date: 12/29/17 16:05:00 CDT Notes: WASTE: F/P - Sink; E - Municipal Trash Bin Start Date: 11/29/17 Stop Date: 12/01/17 Status: Discontinuedmagnesium sulfate 1 gm, 100 mL, Route: IVPB, Drug form: INJ, PRN, Dosing Weight 90.909, kg, PRN Abnormal Lab Result, For NON-ICU Patients Only., Start date: 11/29/17 16:06:00 CDT, Duration: 30 day, Stop date: 12/29/17 16:05:00 CDT Notes: WASTE: F/P - Sink; E - Municipal Trash Bin Start Date: 11/29/17 Stop Date: 12/01/17 Status: Discontinuedmidazolam (ANES) Route: IV, Drug form: SOLN, ONCE, Stop date: 11/30/17 13:59:00 CDT Start Date: 11/30/17 Stop Date: 11/30/17 Status: Completedmorphine Sulfate 4 mg, Route: IVP, ONCE, Dosing Weight 90.909, kg, Priority: STAT, Start date: 13:00:00 CDT,Stop date: 11/29/17 13:00:00 CDT Start Date: 11/29/17 Stop Date: 11/29/17 Status: Completedmorphine Sulfate 2 mg, 1 mL, Route: IVP, Drug form: INJ, Q4H, Dosing Weight 90.909, kg, PRN Pain Score 7-10, Start date: 11/29/17 16:05:00 CDT, Duration: 3 day, Stop date: 12/02 16:04:00 CDT Notes: (Same as:MORPhine Sulfate) Start Date: 11/29/17 Stop Date: 12/01/17 Status: Discontinuedmorphine Sulfate (ANES) Route: IV, Drug form: INJ, ONCE, Stop date: 11/30/17 13:59:00 CDT Start Date: 11/30/17 Stop Date: 11/30/17 Status: Completedneostigmine (ANES) Route: IV, Drug form: INJ, ONCE, Stop date: 11/30/17 14:32:00 CDT Start Date: 11/30/17 Stop Date: 11/30/17 Status: CompletedNexIUM 40 mg, Route: PO, Daily, Dosing Weight 90, kg, Start date: 12/01/17 9:00:00 CDT , Duration: 30 day, Stop date: 12/30/17 9:00:00 CDT Start Date: 12/01/17 Stop Date: 12/01/17 Status: Deletedondansetron 4 mg, 2 mL, Route: IVP, Drug form: INJ, Q4H, Dosing Weight 90.909, kg, PRN Nausea & Vomiting, Start date: 11/29/17 16:05:00 CDT, Duration: 30 day, Stop date: 12/29/17 16:04:00 CDT Notes: (Same as: Zofran) MEDICATION WASTE Product Size: 4 mgProduct Wasted: ___ mg Start Date: 11/29/17 Stop Date: 12/01/17 Status: Discontinuedondansetron (ANES) Route: IV, Drug form: INJ, ONCE, Stop date: 11/30/17 14:32:00 CDT Start Date: 11/30/17 Stop Date: 11/30/17 Status: CompletedPepcid 20 mg, 2 mL, Route: IVP, Drug form: INJ, ONCE, Dosing Weight 90, kg, Start date : 11/29/17 23:09:00 CDT, Stop date: 11/29/17 23:09:00 CDT Notes: (Same as: Pepcid)Can be dilute in 5-10cc NS IVP: Slow IV push over at least 2 minutes. Start Date: 11/29/17 Stop Date: 11/30/17 Status: Completedpotassium chloride 10 mEq, 100 mL, Route: IVPB, Drug form: INJ, PRN, Dosing Weight 90.909, kg, PRN Abnormal Lab Result,For NON-ICU Patients Only, Start date: 11/29/17 16:06:00 CDT , Duration: 30 day, Stop date: 12/29/17 16:05:00 CDT Notes: Infuse at a rate of 10 mEq/hr.(Same as: KCL) Start Date: 11/29/17 Stop Date: 12/01/17 Status: Discontinuedpotassium chloride 20 mEq, 1 pkt, Route: NJ, Drug form: PDR/REC, PRN, Dosing Weight 90.909, kg, PRN Abnormal Lab Result, For NON-ICU Patients Only, Start date: 11/29/17 16:06: 00 CDT, Duration: 30 day, Stop date: 12/30/1815:05:00 CDT Notes: (Same as: K-Tania) With food and full glass of water Start Date: 11/29/17 Stop Date: 12/01/17 Status: Discontinuedpotassium chloride 20 mEq, 1 tab, Route: PO, Drug form: ERTAB, PRN, Dosing Weight 90.909, kg, PRN Abnormal Lab Result, For NON-ICU Patients Only, Start date: 11/29/17 16:06:00 CDT, Duration: 30 day, Stop date: 12/29/17 16:05:00 CDT Notes: (Same as: K-Dur 20)"Do Not Crush"For patients unable to swallow tablet, dissolve in one half glass of water. Allow about 2 minutes for the tablets to disintegrate. Stir before giving to prepare slurry and administer.Please exclude Patients with feeding tube less than 14 Belgian (Dobhoff, J-tube etc) and pediatric and patients. With food and full glass of water Start Date: 11/29/17 Stop Date: 12/01/17 Status: Discontinuedpotassium phosphate + Sodium Chloride 0.9% IV 250 mL 30 mmol, 10 mL, Route: IVPB, PRN, Dosing Weight 90.909, kg, PRN Abnormal Lab Result, For NON-ICU Patients Only., Start date: 11/29/17 16:06:00 CDT, Duration : 30 day, Stop date: 12/29/17 16:05:00 CDT Notes: (Same as: K Phosphate.)Do not infuse phosphorous concurrently in the same line as TPN or IVF that contains calcium. For double lumen central lines, phosphorous may be infused in a separate lumenfrom TPN. 1 mMol phoshate has 1.47 mEq potassium Infuse over 4 hours Start Date: 11/29/17 Stop Date: 12/01/17 Status: Discontinuedpotassium phosphate + Sodium Chloride 0.9% IV 250 mL 15 mmol, 5 mL, Route: IVPB, PRN, Dosing Weight 90.909, kg, PRN Abnormal Lab Result, For NON-ICU Patients Only., Start date: 11/29/17 16:06:00 CDT, Duration : 30 day, Stop date: 12/29/17 16:05:00 CDT Notes: (Same as: K Phosphate.)Do not infuse phosphorous concurrently in the same line as TPN or IVF that contains calcium. For double lumen central lines, phosphorous may be infused in a separate lumenfrom TPN. 1 mMol phoshate has 1.47 mEq potassium Infuse over 4 hours Start Date: 11/29/17 Stop Date: 12/01/17 Status: Discontinuedpotassium phosphate-sodium phosphate 250 mg-280 mg-160 mg oral powder for reconstitution 2 pkt, Route: PO, Drug Form: PDR/REC, Dosing Weight 90.909, kg, PRN, PRN Abnormal Lab Result, For NON-ICU Patients Only, Start date: 11/29/17 16:06:00 CDT, Duration: 30 day, Stop date: 12/29/17 16:05:00 CDT Notes: (Same as: Phos-NaK) Each 1.5 gm pkt has 250mg phosphorous. Mix w/2.5oz water and stir. Start Date: 11/29/17 Stop Date: 12/01/17 Status: Discontinuedpropofol (ANES) Route: IV, Drug form: INJ, ONCE, Stop date: 11/30/17 13:59:00 CDT Start Date: 11/30/17 Stop Date: 11/30/17 Status: CompletedProtonix 40 mg, 1 tab, Route: PO, Drug form: ECTAB, BID-Before Meals, Dosing Weight 90.909, kg, Priority: STAT, Start date: 11/29/17 16:03:00 CDT, Stop date: 7:30:00 CDT Notes: Tablet should not be chewed or crushed.(Same as: Protonix) Start Date: 11/29/17 Stop Date: 12/01/17 Status: Discontinuedrocuronium (ANES) Route: IV, Drug form: INJ, ONCE, Stop date: 11/30/17 13:59:00 CDT Start Date: 11/30/17 Stop Date: 11/30/17 Status: CompletedSaline Flush 0.9% 10 mL, Route: IVP, Drug Form: INJ, Dosing Weight 90.909, kg, PRN, PRN Line Flush , Start date: 11/29/17 11:07:00 CDT, Duration: 1 day, Stop date: 11/30/17 11:06: 00 CDT Notes: (Same as: BD Posiflush) Start Date: 11/29/17 Stop Date: 11/30/17 Status: CompletedSEROquel 400 mg, 1 tab, Route: PO, Drug form: TAB, Bedtime, Dosing Weight 90, kg, Start date: 12/01/17 21:00:00 CDT, Duration: 30 day, Stop date: 12/30/17 21:00:00 CDT Notes: (Same as: SEROquel) Start Date: 12/01/17 Stop Date: 12/01/17 Status: CanceledSodium Chloride 0.9% IV 1,000 mL 1,000 mL, Rate: 125 ml/hr, Infuse over: 8 hr, Route: IV, Dosing Weight 90.909 kg , Total Volume: 1,000, Start date: 11/29/17 16:05:00 CDT, Duration: 30 day, Stop date: 12/29/17 16:04:00 CDT, 2.13, m2 Start Date: 11/29/17 Stop Date: 12/01/17 Status: Discontinuedsodium phosphate + Sodium Chloride 0.9% IV 250 mL 30 mmol, 10 mL, Route: IVPB, PRN, Dosing Weight 90.909, kg, PRN Abnormal Lab Result, For NON-ICU Patients Only., Start date: 11/29/17 16:06:00 CDT, Duration : 30 day, Stop date: 12/29/17 16:05:00 CDT Notes: Infuse over 4 hour. Do not infuse phosphorous concurrently in the same line as TPN or IVF that contains calcium. For double lumen central lines, phosphorous may be infused in a separate lumen from TPN. Start Date: 11/29/17 Stop Date: 12/01/17 Status: Discontinuedsodium phosphate + Sodium Chloride 0.9% IV 250 mL 15 mmol, 5 mL, Route: IVPB, PRN, Dosing Weight 90.909, kg, PRN Abnormal Lab Result, For NON-ICU Patients Only., Start date: 11/29/17 16:06:00 CDT, Duration : 30 day, Stop date: 12/29/17 16:05:00 CDT Notes: Infuse over 4 hour. Do not infuse phosphorous concurrently in the same line as TPN or IVF that contains calcium. For double lumen central lines, phosphorous may be infused in a separate lumen from TPN. Start Date: 11/29/17 Stop Date: 12/01/17 Status: Discontinuedtramadol 50 mg oral tablet 50 mg, 1 tab, Route: PO, Drug form: TAB, Q6H, Dosing Weight 90.909, kg, PRN Pain Score 4-6, Start date: 11/29/17 16:05:00 CDT, Duration: 30 day, Stop date: 12/29/17 16:04:00 CDT Notes: Not to exceed 400mg/day. (Same As: Ultram) Start Date: 11/29/17 Stop Date: 12/01/17 Status: DiscontinuedTylenol with Codeine #3 oral tablet 1 tab, Route: PO, Drug Form: TAB, Dosing Weight 90, kg, Q6H, PRN Pain Score 1-3 , Start date: 12/01/17 8:35:00 CDT, Duration: 30 day, Stop date: 12/31/17 8:34: 00 CDT Notes: Do not exceed 4gm/day of acetaminophen. (Same as: Tylenol with Codeine # 3) Start Date: 12/01/17 Stop Date: 12/01/17 Status: DiscontinuedTylenol with Codeine #3 oral tablet 2 tab, PO, Q6H, PRN Pain Score 6-10, X 7 day, # 50 tab, 0 Refill(s) Start Date: 12/01/17 Stop Date: 12/08/17 Status: CompletedXanax 0.25 mg oral tablet 0.25 mg, 1 tab, Route: PO, Drug form: TAB, Q6H, Dosing Weight 90.909, kg, PRN Anxiety, Start date: 11/29/17 16:05:00 CDT, Duration: 30 day, Stop date: 16:04:00 CDT Notes: With food or milk(Same as: Xanax) Start Date: 11/29/17 Stop Date: 12/01/17 Status: DiscontinuedZofran 4 mg, Route: IVP, Drug form: INJ, ONCE, Dosing Weight 90.909, kg, Priority: STAT , Start date: 11/29/17 13:00:00 CDT, Stop date: 11/29/17 13:00:00 CDT Start Date: 11/29/17 Stop Date: 11/29/17 Status: Completed Results ELECTROLYTES Most recent to oldest 1 2 3 [Reference Range]: Sodium Lvl [135-145 mEq/L] 140 mEq/L 144 mEq/L 138 mEq/L (12/01/17 4:51 AM) (11/30/17 4:05 AM) (11/29/17 11:38 AM) Potassium Lvl [3.5-5.1 4.4 mEq/L 4.2 mEq/L 4.1 mEq/L mEq/L] (12/01/17 4:51 AM) (11/30/17 4:05 AM) (11/29/17 11:38 AM) Chloride Lvl [95-109 mEq/L] 111 mEq/L 115 mEq/L 108 mEq/L *HI* *HI* (11/29/17 11:38 AM) (12/01/17 4:51 AM) (11/30/17 4:05 AM) CO2 [24-32 mEq/L] 20 mEq/L 23 mEq/L 23 mEq/L *LOW* *LOW* *LOW* (12/01/17 4:51 AM) (11/30/17 4:05 AM) (11/29/17 11:38 AM) AGAP [10.0-20.0 mEq/L] 13.4 mEq/L 10.2 mEq/L 11.1 mEq/L (12/01/17 4:51 AM) (11/30/17 4:05 AM) (11/29/17 11:38 AM) CHEM PANEL Most recent to oldest 1 2 3 [Reference Range]: Creatinine Lvl [0.50-1.40 1.89 mg/dL 1.92 mg/dL 2.34 mg/dL mg/dL] *HI* *HI* *HI* (12/01/17 4:51 AM) (11/30/17 4:05 AM) (11/29/17 11:38 AM) eGFR 40 mL/min/1.73m2 1 40 mL/min/1.73m2 2 31 mL/min/1.73m2 3 *NA* *NA* *NA* (12/01/17 4:51 AM) (11/30/17 4:05 AM) (11/29/17 11:38 AM) BUN [7-22 mg/dL] 20 mg/dL 25 mg/dL 31 mg/dL (12/01/17 4:51 AM) *HI* *HI* (11/30/17 4:05 AM) (11/29/17 11:38 AM) B/C Ratio [6-25] 11 13 13 (12/01/17 4:51 AM) (11/30/17 4:05 AM) (11/29/17 11:38 AM) Glucose Lvl [70-99 mg/dL] 98 mg/dL 73 mg/dL 89 mg/dL (12/01/17 4:51 AM) (11/30/17 4:05 AM) (11/29/17 11:38 AM) Total Protein [6.4-8.4 6.9 g/dL 6.4 g/dL 7.2 g/dL g/dL] (12/01/17 4:51 AM) (11/30/17 4:05 AM) (11/29/17 11:38 AM) Albumin Lvl [3.5-5.0 g/dL] 3.5 g/dL 3.3 g/dL 4.0 g/dL (12/01/17 4:51 AM) *LOW* (11/29/17 11:38 AM) (11/30/17 4:05 AM) Globulin [2.7-4.2 g/dL] 3.4 g/dL 3.1 g/dL 3.2 g/dL (12/01/17 4:51 AM) (11/30/17 4:05 AM) (11/29/17 11:38 AM) A/G Ratio [0.7-1.6] 1.0 1.1 1.2 (12/01/17 4:51 AM) (11/30/17 4:05 AM) (11/29/17 11:38 AM) Calcium Lvl [8.5-10.5 8.2 mg/dL 8.1 mg/dL 8.3 mg/dL mg/dL] *LOW* *LOW* *LOW* (12/01/17 4:51 AM) (11/30/17 4:05 AM) (11/29/17 11:38 AM) Phosphorus [2.5-4.5 mg/dL] 3.9 mg/dL (11/30/17 4:05 AM) Magnesium Lvl [1.8-2.4 1.8 mg/dL 1.8 mg/dL mg/dL] (12/01/17 4:51 AM) (11/30/17 4:05 AM) ALT [0-65 unit/L] 34 unit/L 17 unit/L 21 unit/L (12/01/17 4:51 AM) (11/30/17 4:05 AM) (11/29/17 11:38 AM) AST [0-37 unit/L] 33 unit/L 19 unit/L 21 unit/L (12/01/17 4:51 AM) (11/30/17 4:05 AM) (11/29/17 11:38 AM) Alk Phos [39-136 unit/L] 102 unit/L 98 unit/L 106 unit/L (12/01/17 4:51 AM) (11/30/17 4:05 AM) (11/29/17 11:38 AM) Bili Total [0.2-1.3 mg/dL] 0.2 mg/dL 0.2 mg/dL 0.3 mg/dL (12/01/17 4:51 AM) (11/30/17 4:05 AM) (11/29/17 11:38 AM) Lipase Lvl [73-393 unit/L] 300 unit/L (11/29/17 11:07 AM) 1Result Comment: The eGFR is calculated [...] to oldest [Reference Range]: 1 2 3 Total CK [12-191 unit/L] 367 unit/L *HI* (11/29/17 11:38 AM) Troponin-I [0.00-0.40 ng/mL] <0.02 ng/mL (11/29/17 11:38 AM) DRUG SCREEN Most recent to oldest [Reference Range]: 1 2 3 U Amph Scr [Negative] Negative *NA* (11/29/17 12:39 PM) U Kami Scr [Negative] Negative *NA* (11/29/17 12:39 PM) U Benzodiaz Scr [Negative] Negative *NA* (11/29/17 12:39 PM) U Cannab Scr [Negative] Negative *NA* (11/29/17 12:39 PM) U Cocaine Scr [Negative] Negative *NA* (11/29/17 12:39 PM) U Opiate Scr [Negative] Negative *NA* (11/29/17 12:39 PM) U Phencyclidine Scr [Negative] Negative *NA* (11/29/17 12:39 PM) UDS Note See Note (11/29/17 12:39 PM) URINE AND STOOL Most recent to oldest [Reference Range]: 1 2 3 UA Turbidity [Clear] Clear (11/29/17 12:39 PM) UA Color [Yellow] Colorless *NA* (11/29/17 12:39 PM) UA pH [5.0-8.0] 6.0 (11/29/17 12:39 PM) UA Spec Grav [<=1.030] 1.002 (11/29/17 12:39 PM) UA Glucose [Negative mg/dL] Negative mg/dL *NA* (11/29/17 12:39 PM) UA Blood [Negative] Negative (11/29/17 12:39 PM) UA Ketones [Negative mg/dL] Negative mg/dL *NA* (11/29/17 12:39 PM) UA Protein [Negative mg/dL] Negative mg/dL (11/29/17 12:39 PM) UA Urobilinogen [0.1-1.0 mg/dL] <=1.0 mg/dL *NA* (11/29/17 12:39 PM) UA Bili [Negative] Negative *NA* (11/29/17 12:39 PM) UA Leuk Est [Negative] Negative (11/29/17 12:39 PM) UA Nitrite [Negative] Negative (11/29/17 12:39 PM) UA WBC [0-5 /HPF] <1 /HPF (11/29/17 12:39 PM) UA RBC [0-2 /HPF] 1 /HPF (11/29/17 12:39 PM) UA Bacteria [None Seen /HPF] Occasional /HPF *NA* (11/29/17 12:39 PM) UA Sq Epi None Seen *NA* (11/29/17 12:39 PM) HEMATOLOGY Most recent to oldest 1 2 3 [Reference Range]: WBC [3.7-10.4 K/CMM] 11.1 K/CMM 7.8 K/CMM 10.2 K/CMM *HI* (11/30/17 4:05 AM) (11/29/17 11:38 AM) (12/01/17 4:51 AM) RBC [4.70-6.10 M/CMM] 3.64 M/CMM 3.51 M/CMM 3.77 M/CMM *LOW* *LOW* *LOW* (12/01/17 4:51 AM) (11/30/17 4:05 AM) (11/29/17 11:38 AM) Hgb [14.0-18.0 g/dL] 11.1 g/dL 10.9 g/dL 11.4 g/dL *LOW* *LOW* *LOW* (12/01/17 4:51 AM) (11/30/17 4:05 AM) (11/29/17 11:38 AM) Hct [42.0-54.0 %] 33.5 % 31.8 % 33.8 % *LOW* *LOW* *LOW* (12/01/17 4:51 AM) (11/30/17 4:05 AM) (11/29/17 11:38 AM) MCV [80.0-94.0 fL] 92.1 fL 90.5 fL 89.7 fL (12/01/17 4:51 AM) (11/30/17 4:05 AM) (11/29/17 11:38 AM) MCH [27.0-31.0 pg] 30.4 pg 30.9 pg 30.3 pg (12/01/17 4:51 AM) (11/30/17 4:05 AM) (11/29/17 11:38 AM) MCHC [32.0-36.0 g/dL] 33.0 g/dL 34.2 g/dL 33.8 g/dL (12/01/17 4:51 AM) (11/30/17 4:05 AM) (11/29/17 11:38 AM) RDW [11.5-14.5 %] 15.0 % 14.9 % 14.8 % *HI* *HI* *HI* (12/01/17 4:51 AM) (11/30/17 4:05 AM) (11/29/17 11:38 AM) MPV [7.4-10.4 fL] 8.0 fL 7.7 fL 7.6 fL (12/01/17 4:51 AM) (11/30/17 4:05 AM) (11/29/17 11:38 AM) Platelet [133-450 K/CMM] 165 K/CMM 176 K/CMM 181 K/CMM (12/01/17 4:51 AM) (11/30/17 4:05 AM) (11/29/17 11:38 AM) Segs [45.0-75.0 %] 46.7 % 59.7 % (11/30/17 4:05 AM) (11/29/17 11:38 AM) Lymphocytes [20.0-40.0 %] 43.4 % 29.4 % *HI* (11/29/17 11:38 AM) (11/30/17 4:05 AM) Monocytes [2.0-12.0 %] 6.0 % 8.0 % (11/30/17 4:05 AM) (11/29/17 11:38 AM) Eosinophils [0.0-4.0 %] 3.7 % 2.5 % (11/30/17 4:05 AM) (11/29/17 11:38 AM) Basophils [0.0-1.0 %] 0.2 % 0.4 % (11/30/17 4:05 AM) (11/29/17 11:38 AM) Neutrophils # [1.5-8.1 3.7 K/CMM 6.1 K/CMM K/CMM] (11/30/17 4:05 AM) (11/29/17 11:38 AM) Lymphocytes # [1.0-5.5 3.4 K/CMM 3.0 K/CMM K/CMM] (11/30/17 4:05 AM) (11/29/17 11:38 AM) Monocytes # [0.0-0.8 K/CMM] 0.5 K/CMM 0.8 K/CMM (11/30/17 4:05 AM) (11/29/17 11:38 AM) Eosinophils # [0.0-0.5 0.3 K/CMM 0.3 K/CMM K/CMM] (11/30/17 4:05 AM) (11/29/17 11:38 AM) Immunizations No data available for this [...] 12/31/17 Assessment and Plan Extracted from: Title: Progress Note * Author: Anirudh Rich DO Date: 11/30/17 Impression and Plan Acute on chronic cholecystitis with cholelithiasis and subsequent leukocytosis Acute hyperkalemia CLARISSA with possible underlying CKD stage III Acute gastritis with nausea vomiting secondary to above Chronic right lower extremity DVT Plan: Pt for lap ccy per gen surg today C/W IV fluids, monitor renal function closely C/W empiric IV antibiotics C/W PRN analgesics, as needed antiemetics, PPI therapy, as needed GI cocktail Give as needed antihypertensive medications Hold Eliquis for now, will cover the patient with just heparin; will need to resume eliquis tomorrow Monitor on clinical research monitor Disposition: Discharge home when stable post-op and cleared by general surgery Extracted from: Title: General Admission H&P * Author: Anirudh Rich DO Date: 11/29/17 General Admission H&P * Chief Complaint 11/27/2017 14:43 abdominal pain 11/27/2017 01:36 Chief Complaint History of Present Illness This is a 52-year-old male with known past medical history of chronic gallstone present episodes of right upper quadrant pain in the distant past, right lower extremity DVT for which Sara has been he ld since this initial hospitalization a couple days ago when he was admitted for acute on chronic cholecystitis with cholelithiasis. The patient was planned to undergo appropriate cholecystectomy on to [facility], but he left AMA last night. He represents to the ER this afternoon complaint severe upper abdominal pain with nausea. He denies any fevers or chills. He admits that he is willing to now remai n hospitalized undergo appropriate surgical intervention. Dr. Luke the surgeon who saw him initially is agreeable to taking the patient for surgical intervention on tomorrow. Review of Systems Gastrointestinal: Nausea, Vomiting, Diarrhea, Abdominal pain. Health Status Allergies: Allergic Reactions (Selected) Severity Not Documented Penicillin- No reactions were documented. Quinolone antibiotics- No reactions were documented. Sulfa drugs- No reactions were documented., Allergies (3) Active Reaction penicillin None Documented quinolone antibiotics None Documented sulfa drugs None Documented Current medications: (Selected) Inpatient Medications Ordered Bentyl: 20 mg, 1 tab, PO, QID Colace 100 mg oral capsule: 100 mg, 1 cap, PO, BID, PRN: Constipation Gas-X Ultra Softgels: 160 mg, 2 tab, PO, Q4H, PRN: Gas Protonix: 40 mg, IVP, BID Saline Flush 0.9%: 10 mL, IVP, PRN, PRN: Line Flush Sodium Chloride 0.9% IV 1,000 mL: 125 ml/hr, IV, Stop: 12/29/17 16:04:00 CDT Xanax 0.25 mg oral tablet: 0.25 mg, 1 tab, PO, Q6H, PRN: Anxiety acetaminophen: 650 mg, 20.3 mL, PO, Q4H, PRN: Pain 1-3/Temp > 100.4 F calcium gluconate + Sodium Chloride 0.9% IV 150 mL: 3 gm, 30 mL, 360 ml/hr, IVPB, PRN, PRN: Abnormal Lab Result calcium gluconate: 2 gm, 100 mL, 200 ml/hr, IVPB, PRN, PRN: Abnormal Lab Result cefepime + Sodium Chloride 0.9% IV 100 mL: 1 gm, 25 ml/hr, IVPB, [id number] hydrALAZINE: 10 mg, 0.5 mL, IVP, Q6H, PRN: Other -See Comment magnesium oxide: 800 mg, 2 tab, PO, PRN, PRN: Abnormal Lab Result magnesium sulfate: 1 gm, 100 mL, 100 ml/hr, IVPB, PRN, PRN: Abnormal Lab Result magnesium sulfate: 2 gm, 50 mL, 25 ml/hr, IVPB, PRN, PRN: Abnormal Lab Result morphine Sulfate: 2 mg, 1 mL, IVP, Q4H, PRN: Pain Score 7-10 ondansetron: 4 mg, 2 mL, IVP, Q4H, PRN: Nausea & Vomiting potassium chloride: 10 mEq, 100 mL, 100 ml/hr, IVPB, PRN, PRN: Abnormal Lab Result potassium chloride: 20 mEq, 1 pkt, [place], PRN, PRN: Abnormal Lab Result potassium chloride: 20 mEq, 1 tab, PO, PRN, PRN: Abnormal Lab Result potassium phosphate + Sodium Chloride 0.9% IV 250 mL: 15 mmol, 5 mL, 63.75 ml/ hr, IVPB, PRN, PRN: Abnormal Lab Result potassium phosphate + Sodium Chloride 0.9% IV 250 mL: 30 mmol, 10 mL, 65 ml/hr , IVPB, PRN, PRN: Abnormal Lab Result potassium phosphate-sodium phosphate 250 mg-280 mg-160 mg oral powder for reconstitution: 2 pkt, PO, PRN, PRN: Abnormal Lab Result sodium phosphate + Sodium Chloride 0.9% IV 250 mL: 15 mmol, 5 mL, 63.75 ml/hr, IVPB, PRN, PRN: Abnormal Lab Result sodium phosphate + Sodium Chloride 0.9% IV 250 mL: 30 mmol, 10 mL, 65 ml/hr, IVPB, PRN, PRN: Abnormal Lab Result tramadol 50 mg oral tablet: 50 mg, 1 tab, PO, Q6H, PRN: Pain Score 4-6 Documented Medications Suspended BuSpar: 15 mg, PO, Daily, 0 Refill(s) [...] 100 mg, PO, Bedtime, 0 Refill(s), Medications (26) Active Scheduled: (3) cefepime 1 gm INJ + sodium chloride 0.9% INJ 100 mL 1 gm, IVPB, [id number] dicyclomine 20 mg TAB 20 mg 1 tab, PO, QID pantoprazole 40 mg INJ 40 mg, IVP, BID Continuous: (1) sodium chloride 0.9% 1000 ml INJ 1,000 mL 1,000 mL, IV, 125 ml/hr PRN: (22) acetaminophen 650 mg/20.3ml oral LIQ 650 mg 20.3 mL, PO, Q4H ALPRAZolam 0.25 mg TAB 0.25 mg 1 tab, PO, Q6H calcium gluconate 100mg/ml 10ml VL + sodium chloride 0.9% INJ 150 mL 3 gm 30 mL, IVPB, PRN calcium gluconate 2 gm/ NS 100ml (Premix) 2 gm 100 mL, IVPB, PRN docusate sodium 100 mg CAP 100 mg 1 cap, PO, BID hydrALAZINE 20 mg/1 ml VL 10 mg 0.5 mL, IVP, Q6H magnesium oxide (242 mg elemental) tab 800 mg 2 tab, PO, PRN magnesium sulfate 1gm/100ml D5W premix 1 gm 100 mL, IVPB, PRN magnesium sulfate 2 gm/H20 50ml soln 2 gm 50 mL, IVPB, PRN MOR[place]ine sulfate PF 2 mg/ml CARP 2 mg 1 mL, IVP, Q4H ondansetron 4 mg/2ml INJ VL 4 mg 2 mL, IVP, Q4H potassium chloride 10 mEq/100 ml PB 10 mEq 100 mL, IVPB, PRN potassium chloride 20 mEq ERT 20 mEq 1 tab, PO, PRN potassium chloride 20 mEq PKT 20 mEq 1 pkt, NJ, PRN potassium phosphate 3mmol/1ml 15ml VL + sodium chloride 0.9% INJ 250 mL 15 mmol 5 mL, IVPB, PRN potassium phosphate 3mmol/1ml 15ml VL + sodium chloride 0.9% INJ 250 mL 30 mmol 10 mL, IVPB, PRN potassium phosphate-sodium phosphate 1.5 gm pkt 2 pkt, PO, PRN simethicone 80 mg CHEW 160 mg 2 tab, PO, Q4H sodium chloride 0.9% 10 ml flush syr BD 10 mL, IVP, PRN sodium phosphate 3 mmol/1 ml 15 ml vial + sodium chloride 0.9% INJ 250 mL 15 mmol 5 mL, IVPB, PRN sodium phosphate 3 mmol/1 ml 15 ml vial + sodium chloride 0.9% INJ 250 mL 30 mmol 10 mL, IVPB, PRN traMADol 50 mg TAB 50 mg 1 tab, PO, Q6H Problem list: All Problems Calculus of gallbladder with chronic cholecystitis with obstruction / SNOMED CT 810010007 / Confirmed Calculus of gallbladder with chronic cholecystitis without obstruction / SNOMED CT 590006777 / Confirmed CKD (chronic kidney disease) / SNOMED CT 2282079435 / Confirmed Liver dysfunction / SNOMED CT 553849535 / Confirmed 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 Resolved: Gallstones / SNOMED CT 497600228, Active Problems (5) Calculus of gallbladder with chronic cholecystitis with obstruction Calculus of gallbladder with chronic cholecystitis without obstruction 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 dysfunction Histories Past Medical History: Active CKD (chronic kidney disease) (4465402304) Liver dysfunction (714287842) 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) Resolved Gallstones (657696766): Resolved., chronic gallstone with episodes of right upper quadrant pain in the distant past, right lower extremity DVT for which she is on Eliquis, Family History: No family history items have been selected or recorded., Father due to [place] greater than age 55, negative for any premature CVA Procedure history: No active procedure history items have been selected or recorded., NONE Social History Social & Psychosocial Habits Tobacco 11/27/2017 Use: Current every day smoker Type: Cigarettes Ready to change: No Concerns about tobacco use in household: No Exposure to Tobacco Smoke Lives with someone who sm Cigarette Smoking Last 365 Days Yes Reg Smoking Cessation Counseling No 11/29/2017 Use: Current every day smoker Ready to change: No Concerns about tobacco use in household: No Exposure to Tobacco Smoke None Cigarette Smoking Last 365 Days No Reg Smoking Cessation Counseling No . Alcohol [...] 92.443 kg Dosing Weight Collection Method Measured , Vital Signs (last 24 hrs) Last Charted Temp Oral 97.8 DegF (NOV 29 10:32) Heart Rate Apical 89 bpm (NOV 29:) Resp Rate 18 BRMIN (NOV 29:) SBP 120 mmHg (NOV 29:) DBP 80 mmHg (NOV 29:) SpO2 100 % (NOV 29:) Weight 90.909 kg (NOV 29 10:32) Height 177.8 cm (NOV 29:32) BMI 28.76 (NOV 29 10:32) General: Alert and oriented, Moderate distress. Appearance: Ill. Skin: Normal for ethnicity. [...] intact. Psychiatric: Cooperative, Appropriate mood & affect. Review / Management Results review: Labs (Last four charted values) WBC 10.2 (NOV 29) Hgb L 11.4 (NOV 29) Hct L 33.8 (NOV 29) Plt 181 (NOV 29) Na 138 (NOV 29) K 4.1 (NOV 29) CO2 L 23 (NOV 29) Cl 108 (NOV 29) Cr H 2.34 (NOV 29) BUN H 31 (NOV 29) Glucose Random 89 (NOV 29) Ca L 8.3 (NOV 29) Troponin <0.02 (NOV 29) Total CK H 367 (NOV 29) . Impression and Plan Acute on chronic cholecystitis with cholelithiasis and subsequent leukocytosis Acute gastritis with nausea vomiting secondary to above CLARISSA with complicating underlying CKD stage III Chronic right lower extremity DVT Plan: UNCHANGED FROM ADMIT 2 DAYS AGO Keep the patient n.p.o. Consult general surgery, await their input Give generous IV fluids, monitor renal function closely Empiric IV antibiotics PRN analgesics, as needed antiemetics, PPI therapy, as needed GI cocktail Monitor for signs of acute abdomen Give as needed antihypertensive medications Hold Eliquis for now, will cover the patient with just heparin Monitor on clinical research monitor Disposition: Anticipate 1-2 midnights of hospitalization stabilize patient's acute presentation. Await evaluation from general surgery. Signature Line Anirudh Rich DO Electronically Signed: 11/29/17 16:47 Extracted from: Title: GS Consult * Author: Jg Luke MD Date: 11/29/17 Impression and Plan Diagnosis Calculus of gallbladder with chronic cholecystitis without obstruction (ICD10- CM K80.10, Working, Medical). Course: Progressing as expected. Orders Lap antonio w/IOC at 1PM tomorrow. Pt counseled re risks of bile leak, hernia, sbo, perforation bowel or vessels, pancreatitis..
--- OUTSIDE RECORDS SUMMARY | 2018-08-13 17:30 | XMS REPORT | Summary of Care ---
:1965 Author Organization [facility] Address [address] [place], [place] [address]- Encounter HQ Ronnie(FIN) [phone] Date(s): 12/12/17 - 12/15/17 [facility] [address] [place] [address]- Encounter Diagnosis Postprocedural hematoma of a digestive system organ or structure following a digestive system procedure (Final) - 12/28/17 Suicidal ideations (Final) - Izard's disease (Final) - Chronic embolism and thrombosis of unspecified deep veins of unspecified lower extremity (Final) - Acute kidney failure, unspecified (Final) - Other ascites (Final) - Other infectious disease (Final) - Right upper quadrant pain (Final) - Cyst of kidney, acquired (Final) - Other surgical procedures as the cause of abnormal reaction of the patient, or of later complication, without mention of misadventure at the time of the procedure (Final) - Chronic kidney disease, stage 3 (moderate) (Final) - Nicotine dependence, cigarettes, uncomplicated (Final) - Bipolar disorder, unspecified (Final) - Gastro-esophageal reflux disease without esophagitis (Final) - Diaphragmatic hernia without obstruction or gangrene (Final) - Acquired absence of other specified parts of digestive tract (Final) - senior living (current) use of anticoagulants (Final) - Discharge Disposition: Home or Self Care Attending Physician: Wilbert Lovett DO Admitting Physician: Wilbert Lovett DO Vital Signs Most recent to oldest 1 2 3 [Reference Range]: Height 177.8 cm (12/12/17 3:43 PM) Temperature Oral [96.4-99.1 97.9 DegF 98.1 DegF 98.3 DegF DegF] (12/15/17 7:20 PM) (12/15/17 11:03 AM) (12/15/17 7:00 AM) Blood Pressure [90-140/60-90 127/79 mmHg 117/78 mmHg 107/73 mmHg mmHg] (12/15/17 7:20 PM) (12/15/17 11:03 AM) (12/15/17 7:00 AM) Respiratory Rate [14-20 BRMIN] 18 BRMIN 18 BRMIN 18 BRMIN (12/15/17 7:20 PM) (12/15/17 11:03 AM) (12/15/17 7:00 AM) Peripheral Pulse Rate [60-100 94 bpm 88 bpm 77 bpm bpm] (12/15/17 7:20 PM) (12/15/17 11:03 AM) (12/15/17 7:00 AM) Weight 83.636 kg (12/12/17 3:43 PM) Body Mass Index 26.46 m2 (12/12/17 3:43 PM) Problem List Condition Effective Dates Status Health Status Informant Gallstones(Confirmed) Active Bipolar disorder(Confirmed) Active Calculus of gallbladder with chronic Active cholecystitis with obstruction(Confirmed) Calculus of gallbladder with chronic Active cholecystitis without obstruction(Confirmed) CKD (chronic kidney Active disease)(Confirmed) Liver dysfunction(Confirmed) Active DVT (deep venous Active thrombosis)(Confirmed) Izard disease(Confirmed) Active Allergies, Adverse Reactions, Alerts Substance Reaction Severity Status sulfa drugs Active quinolone antibiotics Active penicillin Active Food Tomatoes Active Medications acetaminophen 650 mg, 2 tab, Route: PO, Drug form: TAB, Q4H, Dosing Weight 83.636, kg, PRN Pain 1-3/Temp > 100.4 F, Start date: 12/12/17 18:37:00 CDT, Duration: 30 day , Stop date: 01/11/18 18:36:00 CDT Notes: Do not exceed 4 gm/day. (Same as: Tylenol) Start Date: 12/12/17 Stop Date: 12/15/17 Status: DiscontinuedBuSpar 15 mg, 3 tab, Route: PO, Drug form: TAB, Daily, Dosing Weight 83.636, kg, Start date: 12/13/17 9:00:00 CDT, Duration: 30 day, Stop date: 01/11/18 9:00:00 CDT Notes: (Same As: BuSpar) Start Date: 12/13/17 Stop Date: 12/15/17 Status: Discontinuedcefepime + Sodium Chloride 0.9% IV 100 mL 1 gm, Route: IVPB, ONCE, Dosing Weight 83.636, kg, (CrCl >/=50 ml/min), Priority: STAT, Start date: 12/12/17 19:26:00 CDT, Stop date: 12/12/17 19:26:00 CDT, ABX Indication: Other (specify in Comments) Notes: (Same As: Ashleyime) MEDICATION WASTE Product Size: 1000 mgProduct Wasted: ___ mg Start Date: 12/12/17 Stop Date: 12/12/17 Status: Completedinfluenza virus vaccine, inactivated 0.5 mL, Route: IM, Drug Form: SUSP, ONCALL, Start date: 12/13/17 6:53:36 CDT, Duration: 30 day, Stopdate: 01/12/18 6:52:00 CDT Notes: (Same as: Fluzone Quadrivalent, Fluarix Quadrivalent)For 3 years of age and older (0.5 mL IM)Shake well before use Start Date: 12/13/17 Stop Date: 12/15/17 Status: DiscontinuedLexapro 20 mg, 2 tab, Route: PO, Drug form: TAB, Daily, Dosing Weight 83.636, kg, Start date: 12/13/17 9:00:00 CDT, Duration: 30 day, Stop date: 01/11/18 9:00:00 CDT Notes: (Same as: Lexapro) Start Date: 12/13/17 Stop Date: 12/15/17 Status: DiscontinuedLexapro 10 mg oral tablet 10 mg=1 tab, PO, Daily, # 30 tab, 0 Refill(s) Start Date: 12/12/17 Status: OrderedLexapro 20 mg oral tablet 20 mg=1 tab, PO, Daily, # 30 tab, 0 Refill(s) Start Date: 12/12/17 Stop Date: 01/04/18 Status: DiscontinuedmetroNIDAZOLE 500 mg, 100 mL, Route: IVPB, Drug form: INJ, ONCE, Dosing Weight 83.636, kg, Priority: STAT, Start date: 12/12/17 19:27:00 CDT, Stop date: 12/12/17 19:27:00 CDT, ABX Indication: Other (specify in Comments) Notes: (Same as: Flagyl) Avoid alcohol. Start Date: 12/12/17 Stop Date: 12/12/17 Status: Completedmorphine Sulfate 4 mg, Route: IVP, ONCE, Dosing Weight 83.636, kg, Priority: STAT, Start date: 16:33:00 CDT,Stop date: 12/12/17 16:33:00 CDT Start Date: 12/12/17 Stop Date: 12/12/17 Status: Completedmorphine Sulfate 2 mg, 0.5 mL, Route: IVP, Drug form: SOLN, Q4H, Dosing Weight 83.636, kg, PRN Pain Score 7-10, Startdate: 12/12/17 18:37:00 CDT, Duration: 30 day, Stop date: 01/11/18 18:36:00 CDT Notes: (Same as:MORPhine Sulfate) Start Date: 12/12/17 Stop Date: 12/15/17 Status: DiscontinuedNS (Bolus) IV 1,000 mL, 2,000 ml/hr, Infuse Over: 1 hr, Route: IV, ONCE, Priority: STAT, Dosing Weight 83.636 kg, Start date: 12/12/17 17:31:00 CDT, Stop date: 12/12/17 17:31:00 CDT Start Date: 12/12/17 Stop Date: 12/12/17 Status: Completedondansetron 4 mg, Route: IVP, Drug form: INJ, ONCE, Dosing Weight 83.636, kg, Priority: STAT , Start date: 12/12/17 16:33:00 CDT, Stop date: 12/12/17 16:33:00 CDT Start Date: 12/12/17 Stop Date: 12/12/17 Status: Completedondansetron 4 mg, 2 mL, Route: IVP, Drug form: INJ, Q6H, Dosing Weight 83.636, kg, PRN Nausea & Vomiting, Start date: 12/12/17 18:37:00 CDT, Duration: 30 day, Stop date: 01/11/18 18:36:00 CDT Notes: (Same as: Liz) MEDICATION WASTE Product Size: 4 mgProduct Wasted: ___ mg Start Date: 12/12/17 Stop Date: 12/15/17 Status: DiscontinuedProtonix 40 mg, 1 tab, Route: PO, Drug form: ECTAB, Daily, Dosing Weight 83.636, kg, Start date: 12/13/17 16:30:00 CDT, Duration: 30 day, Stop date: 01/11/18 16:30: 00 CDT Notes: Tablet should not be chewed or crushed.(Same as: Protonix) Start Date: 12/13/17 Stop Date: 12/15/17 Status: DiscontinuedProtonix 40 mg oral enteric coated tablet 40 mg=1 tab, PO, Daily, # 30 tab, 0 Refill(s) Start Date: 12/12/17 Status: OrderedSaline Flush 0.9% 10 mL, Route: IVP, Drug Form: INJ, Dosing Weight 83.636, kg, PRN, PRN Line Flush , Start date: 12/12/17 16:13:00 CDT, Duration: 1 day, Stop date: 12/13/17 16:12: 00 CDT Notes: (Same as: BD Posiflush) Start Date: 12/12/17 Stop Date: 12/13/17 Status: CompletedSEROquel 400 mg, 4 tab, Route: PO, Drug form: TAB, Bedtime, Dosing Weight 83.636, kg, Start date: 12/12/17 21:00:00 CDT, Duration: 30 day, Stop date: 01/10/18 21:00: 00 CDT Notes: (Same as: SEROquel) Start Date: 12/12/17 Stop Date: 12/15/17 Status: DiscontinuedSodium Chloride 0.9% IV 1,000 mL 1,000 mL, Rate: 100 ml/hr, Infuse over: 10 hr, Route: IV, Dosing Weight 83.636 kg, Total Volume: 1,000, Start date: 12/12/17 18:44:00 CDT, Duration: 30 day, Stop date: 01/11/18 18:43:00 CDT, 2.05, m2 Start Date: 12/12/17 Stop Date: 12/15/17 Status: Discontinuedtramadol 50 mg, 1 tab, Route: PO, Drug form: TAB, Q4H, Dosing Weight 83.636, kg, PRN Pain Score 4-6, Start date: 12/14/17 10:27:00 CDT, Duration: 30 day, Stop date: 01/13/18 10:26:00 CDT Notes: Not to exceed 400mg/day. (Same As: Maren) Start Date: 12/14/17 Stop Date: 12/15/17 Status: Discontinuedtrazodone 100 mg, 1 tab, Route: PO, Drug form: TAB, Bedtime, Dosing Weight 83.636, kg, PRN Insomnia, Start date: 12/12/17 18:44:00 CDT, Duration: 30 day, Stop date: 18:43:00 CDT Notes: (Same As: Nella) Start Date: 12/12/17 Stop Date: 12/15/17 Status: DiscontinuedTylenol with Codeine #3 oral tablet 2 tab, PO, Q6H, PRN Pain, # 56 tab, 0 Refill(s) Start Date: 12/12/17 Status: Orderedzolpidem 5 mg, 1 tab, Route: PO, Drug form: TAB, Bedtime, Dosing Weight 83.636, kg, Start date: 12/12/17 21:00:00 CDT, Duration: 30 day, Stop date: 01/10/18 21:00: 00 CDT Notes: (Same As: Masoud) Start Date: 12/12/17 Stop Date: 12/15/17 Status: Discontinuedzolpidem 5 mg oral tablet 5 mg=1 tab, PO, Bedtime, 0 Refill(s) Start Date: 12/12/17 Status: Ordered Results ELECTROLYTES Most recent to oldest [Reference Range]: 1 2 Sodium Lvl [135-145 mEq/L] 141 mEq/L 140 mEq/L (12/13/17 4:54 AM) (12/12/17 4:59 PM) Potassium Lvl [3.5-5.1 mEq/L] 4.7 mEq/L 4.7 mEq/L (12/13/17 4:54 AM) (12/12/17 4:59 PM) Chloride Lvl [95-109 mEq/L] 112 mEq/L 108 mEq/L *HI* (12/12/17 4:59 PM) (12/13/17 4:54 AM) CO2 [24-32 mEq/L] 23 mEq/L 26 mEq/L *LOW* (12/12/17 4:59 PM) (12/13/17 4:54 AM) AGAP [10.0-20.0 mEq/L] 10.7 mEq/L 10.7 mEq/L (12/13/17 4:54 AM) (12/12/17 4:59 PM) CHEM PANEL Most recent to oldest [Reference Range]: 1 2 Creatinine Lvl [0.50-1.40 mg/dL] 1.88 mg/dL 2.02 mg/dL *HI* *HI* (12/13/17 4:54 AM) (12/12/17 4:59 PM) eGFR 41 mL/min/1.73m2 1 37 mL/min/1.73m2 2 *NA* *NA* (12/13/17 4:54 AM) (12/12/17 4:59 PM) BUN [7-22 mg/dL] 43 mg/dL 48 mg/dL *HI* *HI* (12/13/17 4:54 AM) (12/12/17 4:59 PM) B/C Ratio [6-25] 24 (12/12/17 4:59 PM) Glucose Lvl [70-99 mg/dL] 84 mg/dL 102 mg/dL (12/13/17 4:54 AM) *HI* (12/12/17 4:59 PM) Total Protein [6.4-8.4 g/dL] 7.0 g/dL (12/12/17 4:59 PM) Albumin Lvl [3.5-5.0 g/dL] 3.3 g/dL *LOW* (12/12/17 4:59 PM) Globulin [2.7-4.2 g/dL] 3.7 g/dL (12/12/17 4:59 PM) A/G Ratio [0.7-1.6] 0.9 (12/12/17 4:59 PM) Calcium Lvl [8.5-10.5 mg/dL] 8.2 mg/dL 8.4 mg/dL *LOW* *LOW* (12/13/17 4:54 AM) (12/12/17 4:59 PM) ALT [0-65 unit/L] 17 unit/L (12/12/17 4:59 PM) AST [0-37 unit/L] 14 unit/L (12/12/17 4:59 PM) Alk Phos [39-136 unit/L] 109 unit/L (12/12/17 4:59 PM) Bili Total [0.2-1.3 mg/dL] 0.2 mg/dL (12/12/17 4:59 PM) Lipase Lvl [73-393 unit/L] 224 unit/L (12/12/17 4:59 PM) Lactic Acid Lvl [0.5-2.2 mMol/L] 0.5 mMol/L (12/12/17 8:22 PM) 1Result Comment: The eGFR is calculated [...] recent to oldest [Reference Range]: 1 2 UA Turbidity [Clear] Clear (12/12/17 5:31 PM) UA Color STRAW *NA* (12/12/17 5:31 PM) UA pH [5.0-8.0] 6.0 (12/12/17 5:31 PM) UA Spec Grav [<=1.030] 1.006 (12/12/17 5:31 PM) UA Glucose [Negative mg/dL] Negative mg/dL *NA* (12/12/17 5:31 PM) UA Blood [Negative] Negative (12/12/17 5:31 PM) UA Ketones [Negative mg/dL] Negative mg/dL *NA* (12/12/17 5:31 PM) UA Protein [Negative mg/dL] Negative mg/dL (12/12/17 5:31 PM) UA Urobilinogen [0.1-1.0 mg/dL] <=1.0 mg/dL *NA* (12/12/17 5:31 PM) UA Bili [Negative] Negative *NA* (12/12/17 5:31 PM) UA Leuk Est [Negative] Negative (12/12/17 5:31 PM) UA Nitrite [Negative] Negative (12/12/17 5:31 PM) UA Sq Epi None Seen *NA* (12/12/17 5:31 PM) HEMATOLOGY Most recent to oldest [Reference Range]: 1 2 WBC [3.7-10.4 K/CMM] 7.4 K/CMM 7.9 K/CMM (12/13/17 4:54 AM) (12/12/17 4:59 PM) RBC [4.70-6.10 M/CMM] 3.69 M/CMM 3.65 M/CMM *LOW* *LOW* (12/13/17 4:54 AM) (12/12/17 4:59 PM) Hgb [14.0-18.0 g/dL] 11.1 g/dL 11.1 g/dL *LOW* *LOW* (12/13/17 4:54 AM) (12/12/17 4:59 PM) Hct [42.0-54.0 %] 32.9 % 32.5 % *LOW* *LOW* (12/13/17 4:54 AM) (12/12/17 4:59 PM) MCV [80.0-94.0 fL] 89.2 fL 89.1 fL (12/13/17 4:54 AM) (12/12/17 4:59 PM) MCH [27.0-31.0 pg] 30.0 pg 30.5 pg (12/13/17 4:54 AM) (12/12/17 4:59 PM) MCHC [32.0-36.0 g/dL] 33.7 g/dL 34.2 g/dL (12/13/17 4:54 AM) (12/12/17 4:59 PM) RDW [11.5-14.5 %] 14.9 % 14.8 % *HI* *HI* (12/13/17 4:54 AM) (12/12/17 4:59 PM) MPV [7.4-10.4 fL] 7.2 fL 7.3 fL *LOW* *LOW* (12/13/17 4:54 AM) (12/12/17 4:59 PM) Platelet [133-450 K/CMM] 226 K/CMM 232 K/CMM (12/13/17 4:54 AM) (12/12/17 4:59 PM) Segs [45.0-75.0 %] 46.4 % 56.2 % (12/13/17 4:54 AM) (12/12/17 4:59 PM) Lymphocytes [20.0-40.0 %] 42.4 % 35.2 % *HI* (12/12/17 4:59 PM) (12/13/17 4:54 AM) Monocytes [2.0-12.0 %] 6.5 % 5.2 % (12/13/17 4:54 AM) (12/12/17 4:59 PM) Eosinophils [0.0-4.0 %] 4.2 % 3.0 % *HI* (12/12/17 4:59 PM) (12/13/17 4:54 AM) Basophils [0.0-1.0 %] 0.5 % 0.4 % (12/13/17 4:54 AM) (12/12/17 4:59 PM) Neutrophils # [1.5-8.1 K/CMM] 3.4 K/CMM 4.5 K/CMM (12/13/17 4:54 AM) (12/12/17 4:59 PM) Lymphocytes # [1.0-5.5 K/CMM] 3.1 K/CMM 2.8 K/CMM (12/13/17 4:54 AM) (12/12/17 4:59 PM) Monocytes # [0.0-0.8 K/CMM] 0.5 K/CMM 0.4 K/CMM (12/13/17 4:54 AM) (12/12/17 4:59 PM) Eosinophils # [0.0-0.5 K/CMM] 0.3 K/CMM 0.2 K/CMM (12/13/17 4:54 AM) (12/12/17 4:59 PM) PT [12.0-14.7 seconds] 12.0 seconds (12/12/17 4:59 PM) INR [0.85-1.17] 0.89 (12/12/17 4:59 PM) PTT [22.9-35.8 seconds] 28.5 seconds (12/12/17 4:59 PM) Immunizations No data available for this [...] 12/31/17 Assessment and Plan Extracted from: Title: History and Physical Author: Wilbert Lovett DO Date: 12/12/17 Postoperativecholecystectomyfluid collection;hematoma versus biloma versusinfectious process Chronic kidney diseasestage III Bipolar disorder Lower extremity DVT on Eliquis outpatient Kaveh's disease GERD Plan Admit to inpatient General surgery consulted, appreciate recommendations. Recommending observation status with HIDA scan Blood cultures and lactic acid ordered. Patient started on empiric antibiotic therapy per surgery recommendations Continue supportive measures with IV fluids, pain control, antiemetics as needed Keep n.p.o. except for medications at this time Hold Eliquisfor potential surgical interventionor drainage offluid collection Resume home medicationswhen reconciled Holding home Eliquis at this time for potentialsurgical intervention. Last dose on 12/12/17 in the morning. No SCDs due to history of lower extremity DVT Observation. General surgery consulted. Follow blood cultureresults. Continue antibioticcoverage. Follow HIDA scan results
--- OUTSIDE RECORDS SUMMARY | 2018-08-13 17:31 | XMS REPORT ---
[...] Start End Date Status Dosage Date Lisinopril [facility] [id number] 5 MG Orally Once Active 1 tablet a day Nexium [facility] [id number] 40 MG Orally Once Active 1 capsule a day Results No Known Results Summary Purpose eClinicalWorks Submission
--- OUTSIDE RECORDS SUMMARY | 2018-08-13 17:31 | XMS REPORT ---
:1965 [facility] [address] [place] [address] Care Team Providers Name Role Phone Unavailable Unavailable Unavailable Payers Payer Name Policy Type Policy Number Effective Date Expiration Date Problems This patient has no known problems. Allergies, Adverse Reactions, Alerts Allergy Name Allergy Status Severity Reaction(s) Onset Inactive Treating Comments Type Date Date Clinician Penicillins DA Active U 2018-07 00:00:0 0 Sulfa DA Active U 2018-07 (Sulfonamide -09 Antibiotics) 00:00:0 0 Penicillins DA Active U 2018-06 00:00:0 0 Sulfa DA Active U 2018-06 (Sulfonamide -11 Antibiotics) 00:00:0 0 Penicillins DA Active U 2017-10 00:00:0 0 Sulfa DA Active U 2017-10 (Sulfonamide -10 Antibiotics) 00:00:0 0 Medications This patient has no known medications. Results Test Description Test Time Test Comments Text Results Atomic Results Result Comments PT AND PTT 2018-07-22 07:25:00 Test Item Value Reference Range Comments PT PATIENT (test code=PTP) 11.6 SECONDS 9.4-12.5 INTERNATIONAL NORMAL RATIO 1.03 INR Unit 0.88-1.13 -------- (test code=INR) Therape utic range for INR is dependent upon the situation.2.0-3.0 Prophylaxis / venous thromboembolism, Treatment of DVT, Acute myocardial infarction stroke prevention, Systemic embolism prevention in fibrillation3.0-4.5 AMI recurrence prevention, Systemic embolism prevention in prosthetic heart 3.0-5.4 AMI mortality reduction THROMBOPLASTIN TIME PARTIAL 33.2 SECONDS 24-37.7 THERAPEUTIC RANGE FOR (test code=PTT) UNFRACTIONATED HEPARIN=50.5-83.6 SEC This test is not recommended to monitor low molecularweight heparin or danaparoid. Order LMWH test COLLECTION THROUGH LINES THAT HAVE BEEN PREVIOUSLY FLUSHEDWITH HEPARIN SHOULD BE AVOIDED DUE TO POSSIBLE HEPARINCONTAMINATION COMPREHENSIVE METABOLIC [id number] 07:22:00 Test Item Value Reference Range Comments SODIUM (test code=NA) 136.0 mmol/L 133-144 POTASSIUM (test code=K) 3.7 mmol/L 3.5-5.1 CHLORIDE (test code=CL) 105 mmol/L 95-105 CARBON DIOXIDE (test 28 mmol/L 21-32 code=CO2) ANION GAP (test code=GAP) 3.0 GAP calc 4.0-15.0 GLUCOSE (test code=GLU) 111 MG/DL 70-110 BLOOD UREA NITROGEN (test 12 MG/DL 7-18 code=BUN) GLOMERULAR FILTRATION 36 estGFR >60 The estimated glomerular RATE (test code=GFR) filtration rate is computed usingpatient race, age, sex, and serum creatinine. If any of theneeded data elements are missing the Laboratory can notcompute an estimation of the glomerular filtration rate.The GFR value units=ml/min/1.73 meter squared. EstimatedGFR values above 60 should be interpreted as >60, not anexact number.--- DRUG DOSAGE ALERT --- Drug dosage adjustments utilize different calculationparameters. CREATININE (test 1.99 MG/DL 0.55-1.30 Results may be depressed code=CREAT) if patient is takingN-Acetylcysteine (NAC) and Metamizole (Dipyrone). TOTAL PROTEIN (test 6.8 G/DL 6.4-8.2 code=PROT) ALBUMIN (test code=ALB) 3.5 G/DL 3.4-5.0 ALBUMIN/GLOBULIN RATIO 1.1 RATIO 1.2-2.2 (test code=A/G) CALCIUM (test code=CA) 8.4 MG/DL 8.5-10.1 BILIRUBIN TOTAL (test 0.23 MG/DL 0.00-1.00 code=BILT) BILIRUBIN DIRECT (test 0.11 MG/DL 0.00-0.30 code=BILD) BILIRUBIN INDIRECT (test 0.12 MG/DL 0.2-1.3 code=BILIND) SGOT/AST (test code=AST) 20 Unit/L 15-37 SGPT/ALT (test code=ALT) 19 Unit/L 12-78 ALKALINE PHOSPHATASE 147 Unit/L 45-117 TOTAL (test code=ALKP) INDEX HEMOLYSIS (test 1 NORMAL <10 MG 1 NORMAL code=HEMINDEX) Index/DL INDEX ICTERIC (test 1 NORMAL <2 MG 1 NORMAL code=ICTINDEX) Index/DL INDEX LIPEMIA (test 1 NORMAL <50 MG 1 NORMAL code=LIPINDEX) Index/DL URINALYSIS [id number] 02:49:00 Test Item Value Reference Range Comments UA COLOR (test code=COLU) COLORLESS DESCRIPT YELLOW UA APPEARANCE (test code=APPU) CLEAR DESCRIPT CLEAR UA GLUCOSE DIPSTICK (test code=DGLUU) NEGATIVE (0) mg/dL (NEG) 0 UA BILIRUBIN DIPSTICK (test code=BILU) NEGATIVE (0) mg/dL (NEG) 0 UA KETONE DIPSTICK (test code=KETU) 0 (NEG) mg/dL (NEG) 0 UA SPECIFIC GRAVITY (test code=SGU) 1.002 SG 1.001-1.035 UA BLOOD DIPSTICK (test code=GIANCARLO) NEGATIVE (0) mg/DL (NEG) 0 UA PH DIPSTICK (test code=SANDRA) 6.0 pH UNITS 4.6-8.0 UA PROTEIN DIPSTICK (test code=PROU) NEGATIVE (0) mg/dL <30 (1+) UA UROBILINIOGEN DIPSTICK (test NORMAL (0) mg/dL <2.0 (1+) code=URO) UA NITRITE DIPSTICK (test code=DEVORA) NEGATIVE (0) SCREEN NEG UA LEUKOCYTE ESTERASE DIPSTICK (test NEGATIVE (0) Leuk/mcL (NEG) 0 code=LEUU) UA WBC (test code=WBCU) 0-3 #WBC/HPF 0-3 UA RBC (test code=RBCU) NONE #RBC/HPF 0-3 - CT ABD PELVIS W/O [id number] 20:06:00 Patient Name: MANDY CAZARES Unit No: [id number] EXAMS: CPT CODE: [id number] CT ABD PELVIS W/O CONT [id number] Location: T 18 CT of the abdomen and CT of the pelvis , 07/21 CLINICAL HISTORY: Left flank pain, left upper quadrant abdominal pain. ER presentation COMPARISON EXAM : 06/23/18 CT examination of the abdomen and pelvis TECHNIQUE: A CT scan of the abdomen and pelvis conducted in the axial plane scanning utilizing contiguous 2.5 mm slice thickness from the lower lungs through the pubic symphysis without IV but with enteric contrast with 2D coronal reformatted images acquired. This was acquired using MPR software on the CT workstation. Renal stone protocol was used. The examination was performed on an updated helical CT scan using utilizing low-dose radiation technique. Automatic exposure technique was utilized to reduce radiation dose. FINDINGS: No obstructive nephropathy or radio-opaque calculi seen. There is presence again of a benign exophytic 1.4 cm in maximum size left renal cyst unchanged to the prior CT exam. No evolving renal mass is identified or perinephric collection. Both ureters appear decompressed. There is mild renal atrophy. The liver demonstrates normal size but is somewhat fatty in attenuation without focal abnormality on this non contrast exam. The patient is status post cholecystectomy. No biliary distention is seen. The spleen is normal in size without focal defects. The adrenal glands are unremarkable without masses. The pancreas demonstrates no abnormality on this non contrast exam. There are no peripancreatic fluid collections. Bowel gas pattern is nonobstructed and nonspecific without pneumoperitoneum or pneumatosis. Assessment of bowel pathology is limited given lackof IV and enteric contrast w/o abscess or definite abnormality identified. The appendix is notclosely seen. Labrum removed this patient to our Hysterectomy changes. Minimal distention of small bowel loops and of the right side of the colon possibly indicative of a viral enteritis/and ileus without associated wall thickening Both the abdominal aortaand IVC are unremarkable. There is no significant adenopathy within the abdomen. The bases of the lungs are clear. FLY Chawla NAME: MANDY CAZARES [address] [place] [address] PHYS: Paula Vrea [place] [address] : 1965 AGE: 52 SEX: M LOC: B.ERS PHONE #: [phone] EXAM DATE: 07/21/2018 STATUS: REG ER FAX #: [phone] RAD #: D/C DT PAGE 1 Signed Report (CONTINUED) Patient Name: MANDY CAZARES Unit No: [id number] EXAMS: CPT CODE: [id number] CT ABD PELVIS W/O CONT [id number] <Continued> The pelvic contents are unremarkable without mass. No focal fluid collections or adenopathy. The uterus is not seen and presumably has been removed. IMPRESSION: Findings suggestive of viral enterocolitis versus ileus with mildly fluid- filled distention of small bowel loops and of the right side of the colon without associated wall thickening Mild renal atrophy at 2006 Reported and signed by: Heather Westbrook M.D. CC: Paula Mandel NP Dictated Date/ Time: 07/21/2018 (2005) Technologist: Ryland Case CTDI: 10.33 DLP: 582.31 Trnscrpt: 07/21/2018 (2005) [email or web address] FLY Chawla NAME: MANDY CAZARES [address] [place] [address] PHYS: KEVIN MandelPaula LEIF [place] [address] : 1965 AGE: 52 SEX: M LOC: B.ERS PHONE #: [phone] EXAM DATE: 07/21/2018 STATUS: REG ER FAX #: RAD #: D/C DT PAGE 2 Signed Report Patient Name: MANDY CAZARES Unit No: [id number] EXAMS: CPT CODE: [id number] CT ABD PELVIS W/O CONT [id number] < Continued> Orig Print D/T: S: 07/21/2018 (2008) [facility] [place] NAME: MANDY CAZARES [address] [place] [address] Blvd PHYS: Paula Vera NP [place], [place] [address] : 1965 AGE: 52 SEX: M LOC: [facility] PHONE #: [phone] EXAM DATE: 07/21/2018STATUS: REG ER FAX #: [phone] RAD # : D/C DT PAGE 3 Signed ReportCOMPREHENSIVE METABOLIC [id number] 17:37:00 Test Item Value Reference Range Comments SODIUM (test code=NA) 137.0 mmol/L 133-144 POTASSIUM (test code=K) 3.6 mmol/L 3.5-5.1 CHLORIDE (test code=CL) 107 mmol/L 95-105 CARBON DIOXIDE (test 23 mmol/L 21-32 code=CO2) ANION GAP (test code=GAP) 7.0 GAP calc 4.0-15.0 GLUCOSE (test code=GLU) 87 MG/DL 70-110 BLOOD UREA NITROGEN (test 15 MG/DL 7-18 code=BUN) GLOMERULAR FILTRATION 32 estGFR >60 The estimated glomerular RATE (test code=GFR) filtration rate is computed usingpatient race, age, sex, and serum creatinine. If any of theneeded data elements are missing the Laboratory can notcompute an estimation of the glomerular filtration rate.The GFR value units=ml/min/1.73 meter squared. EstimatedGFR values above 60 should be interpreted as >60, not anexact number.--- DRUG DOSAGE ALERT --- Drug dosage adjustments utilize different calculationparameters. CREATININE (test 2.22 MG/DL 0.55-1.30 Results may be depressed code=CREAT) if patient is takingN-Acetylcysteine (NAC) and Metamizole (Dipyrone). TOTAL PROTEIN (test 7.4 G/DL 6.4-8.2 code=PROT) ALBUMIN (test code=ALB) 3.7 G/DL 3.4-5.0 ALBUMIN/GLOBULIN RATIO 1.0 RATIO 1.2-2.2 (test code=A/G) CALCIUM (test code=CA) 8.4 MG/DL 8.5-10.1 BILIRUBIN TOTAL (test 0.23 MG/DL 0.00-1.00 code=BILT) BILIRUBIN DIRECT (test < 0.10 MG/DL 0.00-0.30 code=BILD) BILIRUBIN INDIRECT (test 0.23 MG/DL 0.2-1.3 code=BILIND) SGOT/AST (test code=AST) 19 Unit/L 15-37 SGPT/ALT (test code=ALT) 23 Unit/L 12-78 ALKALINE PHOSPHATASE 146 Unit/L 45-117 TOTAL (test code=ALKP) INDEX HEMOLYSIS (test 1 NORMAL <10 MG 1 NORMAL code=HEMINDEX) Index/DL INDEX ICTERIC (test 1 NORMAL <2 MG 1 NORMAL code=ICTINDEX) Index/DL INDEX LIPEMIA (test 1 NORMAL <50 MG 1 NORMAL code=LIPINDEX) Index/DL [id number] 17:37:00 Test Item Value Reference Range Comments LIPASE (test code=LIP) 121 Unit/L 114-286 [id number] 17:37:00 Test Item Value Reference Range Comments TROPONIN-I (test < 0.015 NG/ML 0.000-0.045 An elevated troponin value alone is code=TROPI) not sufficient todiagnose a myocardial infarction. Rather, the patient'sclinical presentation (history, physical exam) and ECGshould be used in conjunction with troponin in thediagnostic evaluation of suspected myocardial infarction. Aserial sampling protocol is recommended to facilitate theidentification of temporal changes in troponin levelscharacteristic of [place]. CBC W/MANUAL [id number] 17:35:00 Test Item Value Reference Range Comments WHITE BLOOD CELL (test code=WBC) 8.8 K/mm3 4.1-12.1 RED BLOOD CELL (test code=RBC) 4.49 M/mm3 3.8-5.5 HEMOGLOBIN (test code=HGB) 12.6 G/DL 10.6-15.8 HEMATOCRIT (test code=HCT) 39.0 % 36.0-47.4 MEAN CELL VOLUME (test code=MCV) 86.9 fL 80.1-101.1 MEAN CELL HGB (test code=MCH) 28.1 pg 25.3-35.3 MEAN CELL HGB CONCETRATION (test code=MCHC) 32.3 G/DL 32.7-35.1 RED CELL DISTRIBUTION WIDTH (test code=RDW) 14.5 % 12.2-16.4 RED CELL DISTRIBUTION WIDTH (test code=RDW-SD) 46.4 fL 35.1-43.9 PLATELET COUNT (test code=PLT) 203 K/mm3 155-337 MEAN PLATELET VOLUME (test code=MPV) 9.7 fL 7.6-10.4 GRANULOCYTE % (test code=GR%) 49.7 % 37.8-82.6 IMMATURE GRANULOCYTE % (test code=IG%) 0.2 % 0.0-2.0 LYMPHOCYTE % (test code=LY%) 40.8 % 14.1-45.4 MONOCYTE % (test code=MO%) 6.0 % 2.5-11.7 EOSINOPHIL % (test code=EO%) 3.1 % 0.0-6.2 BASOPHIL % (test code=BA%) 0.2 % 0.0-2.6 NUCLEATED RBC % (test code=NRBC%) 0.0 /100WBC% 0.0-1.0 GRANULOCYTE # (test code=GR#) 4.39 k/mm3 2.0-13.7 IMMATURE GRANULOCYTE # (test code=IG#) 0.02 K/mm3 0.00-0.03 LYMPHOCYTE # (test code=LY#) 3.60 K/mm3 0.6-3.8 MONOCYTE # (test code=MO#) 0.53 K/mm3 0.11-0.59 EOSINOPHIL # (test code=EO#) 0.27 K/mm3 0.0-0.4 BASOPHIL # (test code=BA#) 0.02 K/mm3 0.0-0.1 NUCLEATED RBC # (test code=NRBC#) 0.00 K/mm3 0.00-0.05 COMPREHENSIVE METABOLIC [id number] 17:33:00 Test Item Value Reference Range Comments SODIUM (test code=NA) 137.0 mmol/L 133-144 POTASSIUM (test code=K) 3.6 mmol/L 3.5-5.1 CHLORIDE (test code=CL) 107 mmol/L 95-105 CARBON DIOXIDE (test 23 mmol/L 21-32 code=CO2) ANION GAP (test code=GAP) 7.0 GAP calc 4.0-15.0 GLUCOSE (test code=GLU) 87 MG/DL 70-110 BLOOD UREA NITROGEN (test 15 MG/DL 7-18 code=BUN) GLOMERULAR FILTRATION 32 estGFR >60 The estimated glomerular RATE (test code=GFR) filtration rate is computed usingpatient race, age, sex, and serum creatinine. If any of theneeded data elements are missing the Laboratory can notcompute an estimation of the glomerular filtration rate.The GFR value units=ml/min/1.73 meter squared. EstimatedGFR values above 60 should be interpreted as >60, not anexact number.--- DRUG DOSAGE ALERT --- Drug dosage adjustments utilize different calculationparameters. CREATININE (test 2.22 MG/DL 0.55-1.30 Results may be depressed code=CREAT) if patient is takingN-Acetylcysteine (NAC) and Metamizole (Dipyrone). TOTAL PROTEIN (test G/DL 6.4-8.2 code=PROT) ALBUMIN (test code=ALB) 3.7 G/DL 3.4-5.0 ALBUMIN/GLOBULIN RATIO RATIO 1.2-2.2 (test code=A/G) CALCIUM (test code=CA) 8.4 MG/DL 8.5-10.1 BILIRUBIN TOTAL (test MG/DL 0.00-1.00 code=BILT) BILIRUBIN DIRECT (test < 0.10 MG/DL 0.00-0.30 code=BILD) BILIRUBIN INDIRECT (test MG/DL 0.2-1.3 code=BILIND) SGOT/AST (test code=AST) 19 Unit/L 15-37 SGPT/ALT (test code=ALT) 23 Unit/L 12-78 ALKALINE PHOSPHATASE Unit/L 45-117 TOTAL (test code=ALKP) INDEX HEMOLYSIS (test 1 NORMAL <10 MG 1 NORMAL code=HEMINDEX) Index/DL INDEX ICTERIC (test 1 NORMAL <2 MG 1 NORMAL code=ICTINDEX) Index/DL INDEX LIPEMIA (test 1 NORMAL <50 MG 1 NORMAL code=LIPINDEX) Index/DL [id number] 17:33:00 Test Item Value Reference Range Comments LIPASE (test code=LIP) 121 Unit/L 114-286 [id number] 17:33:00 Test Item Value Reference Range Comments TROPONIN-I (test code=TROPI) NG/ML 0.000-0.045 - CT ABD PELVIS W/O [id number] 15:38:00 Patient Name: MANDY CAZARES Unit No: [id number] EXAMS: CPT CODE: [id number] CT ABD PELVIS W/O CONT [id number] Site ID: [id number] CLINICAL HISTORY: Abdominal pain, kidney stones TECHNIQUE: Axial images of the abdomen and pelvis were obtained from diaphragm to thepubic symphysis without oral or intravenous contrast. CT dose lowering technique utilized, with adjustment of MA/kV according to patient size and automated exposure control. COMPARISON: CT abdomen and pelvis April 19, 2018 DISCUSSION: The lung bases are clear. The heart size is normal. Tiny hiatal hernia noted. The liver is normal in size and contour, without focal abnormality. The gallbladder is absent. No biliary ductal dilatation. The spleen, pancreas and adrenal glands are unremarkable. Both kidneys are normal in size. 13 mm left renal cyst requires no further workup. No hydronephrosis, nephrolithiasis or perinephric edema. Mild infrarenal abdominal aortic ectasia and mild aortic atherosclerotic disease are similar to previous. The small and large bowel are normal, apart from minimal sigmoid colon diverticulosis. The appendix appears normal. No abdominal, pelvic or retroperitoneal adenopathy or free fluid. The prostate gland and urinary bladder appear unremarkable. No suspicious bony lesions. IMPRESSION: No nephrolithiasis, hydronephrosis or acute finding. Minimal uncomplicated sigmoid colon diverticulosis is noted. at 1538 Reported and signed by: Erich Russell M.D. CC: Marge GLASER Dictated Date/Time: 06/23/2018 (1538) Technologist: Ryland Case CTDI: 10.01 DLP: 596.61 Trnscrpt : 06/23/2018 (1538) [id number] [facility] [place] NAME: MANDY CAZARES [address] [place] [address] Blvd PHYS: Marge [place], [place] [address] : 1965 AGE: 52 SEX: M LOC: B.ERS PHONE #: [phone] EXAM DATE: 06/23/2018 STATUS: REG ER FAX #: [phone] RAD #: D/C DT PAGE 1 Signed Report Patient Name: MANDY CAZARES Unit No: [id number] EXAMS: CPT CODE: [id number] CT ABD PELVIS W/O CONT [id number] <Continued&gt ; Orig Print D/T: S: 06/23/2018 (1541) FLY Chawla NAME: MANDY CAZARES [address] [place] [address] Blvd PHYS: MARY.Regi - Marge [place], [place] [address] : 1965 AGE: 52 SEX: M LOC: [place] PHONE #: [phone] EXAM DATE : 06/23/2018 STATUS: REG ER FAX #: [phone] RAD #: D/C DT PAGE 2 Signed ReportCOMPREHENSIVE METABOLIC [id number] 15:10:00 Test Item Value Reference Range Comments SODIUM (test code=NA) 144.0 mmol/L 133-144 POTASSIUM (test code=K) 3.7 mmol/L 3.5-5.1 CHLORIDE (test code=CL) 112 mmol/L 95-105 CARBON DIOXIDE (test 23 mmol/L 21-32 code=CO2) ANION GAP (test code=GAP) 9.0 GAP calc 4.0-15.0 GLUCOSE (test code=GLU) 79 MG/DL 70-110 BLOOD UREA NITROGEN (test 14 MG/DL 7-18 code=BUN) GLOMERULAR FILTRATION 33 estGFR >60 The estimated glomerular RATE (test code=GFR) filtration rate is computed usingpatient race, age, sex, and serum creatinine. If any of theneeded data elements are missing the Laboratory can notcompute an estimation of the glomerular filtration rate.The GFR value units=ml/min/1.73 meter squared. EstimatedGFR values above 60 should be interpreted as >60, not anexact number.--- DRUG DOSAGE ALERT --- Drug dosage adjustments utilize different calculationparameters. CREATININE (test 2.16 MG/DL 0.55-1.30 Results may be depressed code=CREAT) if patient is takingN-Acetylcysteine (NAC) and Metamizole (Dipyrone). TOTAL PROTEIN (test 6.4 G/DL 6.4-8.2 code=PROT) ALBUMIN (test code=ALB) 3.3 G/DL 3.4-5.0 ALBUMIN/GLOBULIN RATIO 1.1 RATIO 1.2-2.2 (test code=A/G) CALCIUM (test code=CA) 8.3 MG/DL 8.5-10.1 BILIRUBIN TOTAL (test 0.15 MG/DL 0.00-1.00 code=BILT) BILIRUBIN DIRECT (test < 0.10 MG/DL 0.00-0.30 code=BILD) BILIRUBIN INDIRECT (test CALC AUBREY MG/DL 0.2-1.3 code=BILIND) SGOT/AST (test code=AST) 12 Unit/L 15-37 SGPT/ALT (test code=ALT) 14 Unit/L 12-78 ALKALINE PHOSPHATASE 123 Unit/L 45-117 TOTAL (test code=ALKP) INDEX HEMOLYSIS (test 1 NORMAL <10 MG 1 NORMAL code=HEMINDEX) Index/DL INDEX ICTERIC (test 1 NORMAL <2 MG 1 NORMAL code=ICTINDEX) Index/DL INDEX LIPEMIA (test 1 NORMAL <50 MG 1 NORMAL code=LIPINDEX) Index/DL [id number] 15:10:00 Test Item Value Reference Range Comments LIPASE (test code=LIP) 134 Unit/L 114-286 CBC W/AUTO [id number] 14:51:00 Test Item Value Reference Range Comments WHITE BLOOD CELL (test code=WBC) 12.0 K/mm3 4.1-12.1 RED BLOOD CELL (test code=RBC) 3.99 M/mm3 3.8-5.5 HEMOGLOBIN (test code=HGB) 11.2 G/DL 10.6-15.8 HEMATOCRIT (test code=HCT) 36.1 % 36.0-47.4 MEAN CELL VOLUME (test code=MCV) 90.5 fL 80.1-101.1 MEAN CELL HGB (test code=MCH) 28.1 pg 25.3-35.3 MEAN CELL HGB CONCETRATION (test code=MCHC) 31.0 G/DL 32.7-35.1 RED CELL DISTRIBUTION WIDTH (test code=RDW) 14.5 % 12.2-16.4 RED CELL DISTRIBUTION WIDTH (test code=RDW-SD) 48.3 fL 35.1-43.9 PLATELET COUNT (test code=PLT) 175 K/mm3 155-337 MEAN PLATELET VOLUME (test code=MPV) 9.7 fL 7.6-10.4 GRANULOCYTE % (test code=GR%) 70.3 % 37.8-82.6 IMMATURE GRANULOCYTE % (test code=IG%) 0.4 % 0.0-2.0 LYMPHOCYTE % (test code=LY%) 21.3 % 14.1-45.4 MONOCYTE % (test code=MO%) 5.9 % 2.5-11.7 EOSINOPHIL % (test code=EO%) 1.8 % 0.0-6.2 BASOPHIL % (test code=BA%) 0.3 % 0.0-2.6 NUCLEATED RBC % (test code=NRBC%) 0.0 /100WBC% 0.0-1.0 GRANULOCYTE # (test code=GR#) 8.42 k/mm3 2.0-13.7 IMMATURE GRANULOCYTE # (test code=IG#) 0.05 K/mm3 0.00-0.03 LYMPHOCYTE # (test code=LY#) 2.55 K/mm3 0.6-3.8 MONOCYTE # (test code=MO#) 0.70 K/mm3 0.11-0.59 EOSINOPHIL # (test code=EO#) 0.21 K/mm3 0.0-0.4 BASOPHIL # (test code=BA#) 0.03 K/mm3 0.0-0.1 NUCLEATED RBC # (test code=NRBC#) 0.00 K/mm3 0.00-0.05 URINALYSIS [id number] 14:14:00 Test Item Value Reference Range Comments UA COLOR (test code=COLU) YELLOW DESCRIPT YELLOW UA APPEARANCE (test code=APPU) CLEAR DESCRIPT CLEAR UA GLUCOSE DIPSTICK (test code=DGLUU) NEGATIVE (0) mg/dL (NEG) 0 UA BILIRUBIN DIPSTICK (test code=BILU) NEGATIVE (0) mg/dL (NEG) 0 UA KETONE DIPSTICK (test code=KETU) 0 (NEG) mg/dL (NEG) 0 UA SPECIFIC GRAVITY (test code=SGU) 1.010 SG 1.001-1.035 UA BLOOD DIPSTICK (test code=GIANCARLO) NEGATIVE (0) mg/DL (NEG) 0 UA PH DIPSTICK (test code=SANDRA) 6.0 pH UNITS 4.6-8.0 UA PROTEIN DIPSTICK (test code=PROU) NEGATIVE (0) mg/dL <30 (1+) UA UROBILINIOGEN DIPSTICK (test NORMAL (0) mg/Dl <2.0 (1+) code=URO) UA NITRITE DIPSTICK (test code=DEVORA) NEGATIVE (0) SCREEN NEG UA LEUKOCYTE ESTERASE DIPSTICK (test NEGATIVE (0) Leuk/mcL (NEG) 0 code=LEUU) UA WBC (test code=WBCU) 0-3 #WBC/HPF 0-3 UA RBC (test code=RBCU) NONE #RBC/HPF 0-3 UA MUCUS (test code=MUCU) RARE /LPF NONE UA RFLX MICR CULT IF [id number] 01:11:00 Test Item Value Reference Range Comments UA COLOR (test code=COLU) Colorless Yellow UA APPEARANCE (test Clear Clear code=APPU) UA GLUCOSE DIPSTICK (test Negative Negative code=DGLUU) UA BILIRUBIN DIPSTICK (test Negative Negative code=BILU) UA KETONE DIPSTICK (test Negative mg/dL Negative code=KETU) UA SPECIFIC GRAVITY (test 1.002 <1.030 code=SGU) UA BLOOD DIPSTICK (test 1+ Negative code=GIANCARLO) UA PH DIPSTICK (test 6.0 5.0-8.0 code=SANDRA) UA PROTEIN DIPSTICK (test NEGATIVE mg/dL Negative code=PROU) UA UROBILINOGEN DIPSTICK Negative mg/dL Negative (test code=URO) UA NITRITE DIPSTICK (test Negative Negative code=DEVORA) UA LEUKOCYTE ESTERASE TRACE Negative DIPSTICK (test code=LEUU) UA WBC (test code=WBCUR) 0-3 /HPF <4-5 <10 WBC/HPF=PYURIA ABSENT URINE CULTURE NOT INDICATED UA RBC (test code=RBCU) 0-3 /HPF <4-5 UA SQUAMOUS CELLS (test 0-5 (RARE) /HPF 0-5 (RARE) code=SQU) SOURCE OF URINE: CLEAN CATCHless than 18 yrs old, neutropenic, or urological surgery? NOPrimary Indication for Culture: OtherOther Indication: FLANK PAINPROTHROMBIN [id number] 01:10:00 Test Item Value Reference Range Comments [...] with Food and Drug Administrationrecommendations. THROMBOPLASTIN TIME [id number] 01:10:00 Test Item Value Reference Range Comments THROMBOPLASTIN TIME PARTIAL 24.5 SECONDS 23.4-37.0 Therapeutic Range for (test code=PTT) Heparin EFFECTIVE 09/21/12 Heparin IU/mL aPTT Seconds0.3 64.30.7 88.8 CBC W/AUTO [id number] 01:01:00 Test Item Value Reference Range Comments [...] 3/uL 0.0-0.1 - CT ABD PELVIS W/O [id number] 00:23:00 FAX: Josr Sanchez NP [phone] Rand: St: PRE Name: MANDY CAZARES [facility] : 1965 Age/S: 52/M [address] Unit: [id number] Loc: [place] [address] Phys: Josr Sanchez NP Acct: [id number] Dis Date: Status: PRE ER PHONE #: [phone] Exam Date: 04/20/2018 0005 FAX #: [phone] Reason: BILATERAL FLANK PAIN EXAMS: CPT CODE: [id number] CT ABD PELVIS W/O CONT 40186 EXAM: CT ABDOMEN AND PELVIS WITHOUT CONTRAST. [...] Signed Report (CONTINUED) FAX: Josr Sanchez NP [phone] Rand: St: PRE Name: MANDY CAZARES [facility] : 1965 Age/S: 52/M [address] Unit: [id number] Loc: [place] [address] Phys: Josr Sanchez NP Acct: [id number] Dis Date : Status: PRE ER PHONE #: [phone] Exam Date: 04/20/2018 0005 FAX #:[phone] Reason: BILATERAL FLANK PAIN EXAMS: CPT CODE: [id number] CT ABD PELVIS W/O CONT 42044 <Continued> adjustment of the mA and or kV according to patient size and/or use of iterative reconstruction technique. at 0023 Reported and signed by: Jill Keating MD CC: Josr Sanchez NP Technologist: Yadira Villafana Trnscrd Dt/Tm: 04/20/2018 (0023) 16 Orig Print D/T: S : 04/20/2018 (0026 PAGE 2 Signed Report- CT ABD PELVIS [id number] 14:41:00 Patient Name: MANDY CAZARES Unit No: [id number] EXAMS: CPT CODE: [id number] CT ABD PELVIS W/CONT 84368 Site ID: [id number] CLINICAL HISTORY: Abdominal and [...] CC: Sheron Couch MD Dictated Date/Time: 04/06/2018 (1441) Technologist: Devin Solomon CTDI: 11.97 DLP: 668.50 Trnscrpt : 04/06/2018 (0581) [id number] [facility] JONATAN Chawla NAME: MANDY CAZARES [address] [place] [address] PHYS: Sheron Mills [place] [address] : 1965 AGE: 52 SEX: M LOC: [facility] PHONE #: [phone] EXAM DATE: 04/06/2018 STATUS: REG ER FAX #: [phone] RAD # : D/C DT PAGE 1 Signed Report Patient Name: MANDY CAZARES Unit No: [id number] EXAMS: CPT CODE: [id number] CT ABD PELVIS W /CONT 14307 <Continued> Orig Print D/T: S: 04/06/2018 ( 3944) [facility] JONATAN Chawla [facility] PHYS: Sheron Mills MD [place] [address] : 1965 AGE: 52 SEX: M LOC: B.ERS PHONE #: [phone] EXAM DATE: 04/06/2018 STATUS: REG ER FAX #: [phone] RAD #: D/C DT PAGE 2 Signed ReportURINALYSIS [id number] 14:23:00 Test Item Value Reference Range Comments [...] (test code=MUCU) RARE /LPF NONE HEPATIC FUNCTION [id number] 14:06:00 Test Item Value Reference Range Comments [...] 1 NORMAL <50 MG Index/DL 1 NORMAL [id number] 14:06:00 Test Item Value Reference Range Comments LIPASE (test code=LIP) 271 Unit/L 114-286 [id number] 14:06:00 Test Item Value Reference Range Comments TROPONIN-I (test < 0.015 NG/ML 0.000-0.045 An elevated troponin value alone is code=TROPI) not sufficient todiagnose a myocardial infarction. Rather, the patient'sclinical presentation (history, physical exam) and ECGshould be used in conjunction with troponin in thediagnostic evaluation of suspected myocardial infarction. Aserial sampling protocol is recommended to facilitate theidentification of temporal changes in troponin levelscharacteristic of [place]. CBC W/O [id number] 13:47:00 Test Item Value Reference Range Comments [...] (test code=MPV) 10.0 fL 7.6-10.4 CHEMISTRY 7 [id number] 13:39:00 Test Item Value Reference Range Comments [...] POC (test code=GFRBED) 36 56-130 CHEMISTRY 7 [id number] 13:39:00 Test Item Value Reference Range Comments [...] 56-130 (test code=GFRBED) - XR CHEST 1 [id number] 13:27:00 FAX: Sheron Garcia MD [phone] Rand: E St: PRE Patient Name: MANDY CAZARES Unit No: [id number] EXAMS: CPT CODE : [id number] XR CHEST 1 V 49499 - XR CHEST 1 V INDICATION:Abdominal pain, vomiting, headache LOCATION: T18 Partial inspiration. The lungs are clear. The cardiomediastinal silhouette is within normal limits. Old left rib fractures noted. IMPRESSION: Partial inspiration. No active disease. at 1327 Reported and signed by: Bhavin Valencia D.O. CC: Sheron Couch MD Dictated Date/Time: 04/06/2018 (4473)Technologist: Jcarlos Merlos Transcribed Date/Time: 04/06/2018 (3550) By: Lyle Orig Print D/T: S: 04/06/2018 (8995) LUIS M Chawla NAME: [address] PHYS: [id number] - Sheron Couch MD [place], [place] [address] : 1965 AGE: 52 SEX: M LOC: B.ERS PHONE #: [phone] EXAM DATE: 04/06/2018 STATUS: PRE ER FAX #: [phone] RAD NO: DC Dt: PAGE 1 Signed Report
[2018-08-13 18:00] LABS: Absolute Lymphocytes (CBC) 2.6 K/uL (0.7-4.9); Absolute Monocytes 0.7 K/uL (0.1-1.3); Absolute Neutrophil 6.3 K/uL (1.8-8.0); Basophils % 0.2 % (0-1.3); Eosinophils % 1.5 % (0-4.4); Hematocrit 39.6 % (39.6-49.0); Lymphocytes % 26.6 % (15.3-44.8); MPV 8.2 fL (7.6-11.3); Monocytes % 7.4 % (3.3-12.3); RBC Red Blood Cell Count 4.59 M/uL (4.33-5.43)
[2018-08-13 18:17] LABS: ALT/SGPT 26 U/L (12-78); AST/SGOT 23 U/L (15-37); Albumin 4.2 g/dL (3.4-5.0); Alkaline Phosphatase 153 U/L (45-117); BUN Blood Urea Nitrogen 25 mg/dL (7-18); Bicarbonate 19 mmol/L (21-32); Bilirubin Direct 0.1 mg/dL (0-0.2); Bilirubin Total 0.5 mg/dL (0.2-1.0); Glucose Level 101 mg/dL (74-106); Potassium 3.8 mmol/L (3.5-5.1); Protein, Total 7.5 g/dL (6.4-8.2); Sodium Level 138 mmol/L (136-145)
[2018-08-13 22:04] LABS: Barbiturates NEGATIVE (NEGATIVE); Benzodiazepines NEGATIVE (NEGATIVE); Cocaine NEGATIVE (NEGATIVE); METHAMPHETAM NEGATIVE (NEGATIVE); Methadone NEGATIVE (NEGATIVE); Opiates NEGATIVE (NEGATIVE); Phencyclidine NEGATIVE (NEGATIVE); THC Cannibis NEGATIVE (NEGATIVE)
--- NOTE | 2018-08-13 23:54 | ER ---
Nurse's Notes [facility] Name: Jeovany Buckley Age: 52 yrs Sex: Male : 1965 Arrival Date: 08/13/2018 Time: 17:13 Bed 18 Private MD: Diagnosis: Suicidal ideations;Suicide attempt Presentation: 08/13 17:05 Presenting complaint: EMS states: suicidal ideation, LUQ pain since Wednesday, pt unable sv to eat or drink and unable to take his regular medications. BP 116/76 HR-99. Transition of care: patient was not received from another setting of care. Onset of symptoms was August 13, 2018. Risk Assessment: Do you want to hurt yourself or someone else? Patient reports desire/thoughts of hurting themselves or someone else. Provider notified. Care prior to arrival: None. 17:05 Method Of Arrival: EMS: [facility] sv 17:05 Acuity: JED 2 sv 17:06 Presenting complaint: Patient states: he is suicidal with a plan of overdosing on his sv medications. Initial Sepsis Screen: Does the patient meet any 2 criteria? HR > 90 bpm. Does the patient have a suspected source of infection? No. Patient's initial sepsis screen is negative. Historical: - Allergies: 17:18 Aspirin; sv 17:18 PENICILLINS; sv 17:18 Sulfa (Sulfonamide Antibiotics); sv - Home Meds: 17:18 buspirone 10 mg Oral tab 1 tab 2 times per day [Active]; Lexapro 20 mg Oral tab 1 tab sv once daily [Active]; lisinopril 5 mg Oral tab 1 tab once daily [Active]; Nexium 40 mg Oral cpDR 1 cap once daily [Active]; Tramadol Oral [Active]; Trazodone Oral [Active]; Seroquel 400 mg Oral tab 1 tab 2 times per day [Active]; Sucralfate Oral [Active]; - PMHx: 17:18 Bipolar disorder; DVT; RLE; Kaveh's Disease; Hypertension; liver damage; Renal sv Disease; - PSHx: 17:18 Cholecystectomy; sv - Immunization history:: Adult Immunizations up to date. - Social history:: Smoking status: Patient uses tobacco products, smokes one-half pack cigarettes per day, Patient/guardian denies using alcohol, street drugs, IV drugs. - Ebola Screening: : No symptoms or risks identified at this time. Screenin:05 Abuse screen: Denies threats or abuse. Denies injuries from another. Nutritional sv screening: On no prescribed diet Difficulty chewing/swallowing? No Has had N/V for 3 or more days Intervention for positive screen: ED Physician notified. Tuberculosis screening: No symptoms or risk factors identified. Fall Risk None identified. Assessment: 17:05 General: Appears in no apparent distress. uncomfortable, Behavior is calm, cooperative, sv appropriate for age. Pain: Complains of pain in left upper quadrant Pain currently is 8 out of 10 on a pain scale. Pain began Wednesday Is intermittent. Neuro: Level of Consciousness is awake, alert, obeys commands, Oriented to person, place, time, situation, Moves all extremities. Full function Gait is steady. Respiratory: Airway is patent Respiratory effort is even, unlabored, Respiratory pattern is regular, symmetrical. GI: Abdomen is round Reports upper abdominal pain. Derm: Skin is pink, warm \\T\\ dry. 18:00 Reassessment: Patient appears in no apparent distress at this time. Patient and/or em family updated on plan of care and expected duration. Pain level reassessed. Patient is alert, oriented x 3, equal unlabored respirations, skin warm/dry/pink. sitter at bedside, belongings sheet placed on pt chart. 19:45 Reassessment: pt finished eating his sandwich and chips. pt resting with eyes closed, ak1 resp even and unlabored. sitter at bedside. will continue to monitor. 21:30 Reassessment: Patient appears in no apparent distress at this time. No changes from ak1 previously documented assessment. Patient and/or family updated on plan of care and expected duration. Pain level reassessed. Patient is alert, oriented x 3, equal unlabored respirations, skin warm/dry/pink. 22:06 Reassessment: Patient appears in no apparent distress at this time. No changes from ak1 previously documented assessment. Patient and/or family updated on plan of care and expected duration. Pain level reassessed. Patient is alert, oriented x 3, equal unlabored respirations, skin warm/dry/pink. pt provided urine sample. 23:20 Reassessment: Patient appears in no apparent distress at this time. No changes from ak1 previously documented assessment. Patient and/or family updated on plan of care and expected duration. Pain level reassessed. Patient is alert, oriented x 3, equal unlabored respirations, skin warm/dry/pink. nurse to nurse with George with [facility]. 23:33 Reassessment: Quyen with [facility] nurse to nurse. ak1 08/14 00:06 Reassessment: nurse to nurse with Stanley from [facility]. ak1 01:07 Reassessment: EMS at bedside to take pt to [facility], pt refused to go. pt ak1 stated "i am not going back to the [place] area" pt informed of no mental health facilities closer than [place]. Mental Health officer contacted and in route to ER for possible warrant and transport. [facility] contacted by Marcelina Newsy, and they will still accept pt with transfer warrant since pt is no longer voluntary. 01:30 Reassessment: [facility] Health [place] at the bedside now, pt began stating he is now ak1 voluntary. 01:47 Reassessment: pt stated he will voluntarily go to [facility]. Mental Health [facility] deputy to fill out form stating pt is indeed voluntary. Psych: 08/13 17:18 Subjective: Patient's mood is sad, Delusions are denied, Hallucinations are denied sv Having thoughts of suicide. Plan for suicide is overdosing on his medications. Objective: Patient is cooperative, Speech is normal, Affect is appropriate. Interventions: Removed personal items and placed in bag. Patient placed in hospital gown. Searched person for dangerous items. Patient reassessed during use of restraints. Patient is physically safe. Patient's cardiac status is stable. Patient's respirations are even and unlabored. Patient has good circulation in all extremities as indicated by capillary refill < 3 seconds. Patient's ROM assessed and is intact. Patient nutrition and hydration needs will continue to be monitored and addressed. Patient hygiene and elimination needs met. Patient assessed for signs of distress. Patient remains reasonably comfortable at this time. Assisted patient in de-escalation of behavior by removing stimuli causing behavior where possible. Suicide Risk Assessment: Sad Person Scale: Sex of patient: Male: Score 1 point. Age of patient: Score 0 point if patient falls outside of specified age parameters. Depression: Score 1 point if signs of depression are present. Previous Attempt: Score 1 point if patient has previously attempted suicide. Substance Abuse: Score 0 point if patient does not abuse alcohol or drugs. Rational Thinking: Score 0 point if patient has rational thinking. Social Support: Score 1 point if social support is lacking and/or unavailable. Organized Plan: Score 1 point if patient had a plan in place. Relationship: Score 1 point if patient is , , , or for a single male Chronic Sickness: Score 1 point if patient has illness, chronic, debilitating, or severe. TOTAL POINTS: If total points are 7-10, the proposed clinical action is to hospitalize or commit. Implement suicide precautions. Safety Checks: Personal items have been removed. Pt has been placed in a hallway bed/chair. No visitors are present at this time. Pt denies substance abuse. Commitment: Patient will be a voluntary commitment. Vital Signs: 17:18 BP 114 / 88; Pulse 106; Resp 20; Temp 98.3; Pulse Ox 98% ; Height 5 ft. 10 in. (177.80 sv cm); Pain 8/10; 18:30 BP 111 / 82; Pulse 88; Resp 20; Temp 98.6(O); Pulse Ox 98% on R/A; mh5 22:23 BP 126 / 62; Pulse 85; Resp 16; Temp 98.4; Pulse Ox 100% on R/A; mw2 23:19 Weight 86.18 kg (R); ak1 23:19 Body Mass Index 27.26 (86.18 kg, 177.80 cm) ak1 ED Course: 17:13 Patient arrived in ED. sv 17:14 Byron Mari LVN is Primary Nurse. em 17:15 Arm band placed on. sv 17:15 Patient has correct armband on for positive identification. Placed in gown. Bed in low sv position. 17:16 Triage completed. sv 17:18 Safety checks: Items removed: yes. Door open/sign placed on door: yes. Family/friend mh5 present: no. Sitter present: Yes. 17:21 Yvon Robertson MD is Attending Physician. kdr 17:25 Initial lab(s) drawn, by me, sent to lab. Inserted saline lock: 22 gauge in right mh5 wrist, using aseptic technique. Blood collected. 17:30 Safety checks: Items removed: yes. Door open/sign placed on door: yes. Family/friend mh5 present: no. Sitter present: Yes. 17:45 Safety checks: Items removed: yes. Door open/sign placed on door: yes. Family/friend mh5 present: no. Sitter present: Yes. 17:48 Inserted saline lock:. mh5 17:51 Acetaminophen Sent. mh5 17:51 Basic Metabolic Panel Sent. mh5 17:51 CBC with Diff Sent. mh5 17:51 ETOH Level Sent. mh5 17:51 Hepatic Function Sent. mh5 17:51 PT-INR Sent. mh5 17:51 Ptt, Activated Sent. mh5 17:51 Salicylate Sent. mh5 17:51 Urine Drug Screen Sent. 5 18:00 Safety checks: Items removed: yes. Door open/sign placed on door: yes. Family/friend mh5 present: no. Sitter present: Yes. 18:15 Safety checks: Items removed: yes. Door open/sign placed on door: yes. Family/friend mh5 present: no. Sitter present: Yes. 18:30 Safety checks: Items removed: yes. Door open/sign placed on door: yes. Family/friend mh5 present: no. Sitter present: Yes. 18:45 Safety checks: Items removed: yes. Door open/sign placed on door: yes. Family/friend mh5 present: no. Sitter present: Yes. 18:50 Diet: Patient given snack. Patient given juice. 5 18:51 Warm blanket given. SOCKS. [facility] 19:00 Safety checks: Items removed: yes. Door open/sign placed on door: yes. Family/friend mh5 present: no. Sitter present: Yes. 19:15 Safety checks: Items removed: yes. Door open/sign placed on door: yes. Family/friend mw2 present: no. Sitter present: Yes. 19:30 Safety checks: Items removed: yes. Door open/sign placed on door: yes. Family/friend mw2 present: no. Sitter present: Yes. 19:45 Safety checks: Items removed: yes. Door open/sign placed on door: yes. Family/friend mw2 present: no. Sitter present: Yes. 20:00 Safety checks: Items removed: yes. Door open/sign placed on door: yes. Family/friend mw2 present: no. Sitter present: Yes. 20:15 Safety checks: Items removed: yes. Door open/sign placed on door: yes. Family/friend mw2 present: no. Sitter present: Yes. 20:30 Safety checks: Items removed: yes. Door open/sign placed on door: yes. Family/friend mw2 present: no. Sitter present: Yes. 20:45 Safety checks: Items removed: yes. Door open/sign placed on door: yes. Family/friend mw2 present: no. Sitter present: Yes. 21:00 Safety checks: Items removed: yes. Door open/sign placed on door: yes. Family/friend mw2 present: no. Sitter present: Yes. 21:15 Safety checks: Items removed: yes. Door open/sign placed on door: yes. Family/friend mw2 present: no. Sitter present: Yes. 21:30 Safety checks: Items removed: yes. Door open/sign placed on door: yes. Family/friend mw2 present: no. Sitter present: Yes. 21:45 Safety checks: Items removed: yes. Door open/sign placed on door: yes. Family/friend mw2 present: no. Sitter present: Yes. 22:00 Safety checks: Items removed: yes. Door open/sign placed on door: yes. Family/friend mw2 present: no. Sitter present: Yes. 22:10 Primary Nurse role handed off by Byron Mari LVN ak1 22:10 Faviola Saldana RN is Primary Nurse. ak1 22:15 Safety checks: Items removed: yes. Door open/sign placed on door: yes. Family/friend mw2 present: no. Sitter present: Yes. 22:24 Diet: Patient given water. Tolerated well pt was given a sandwhich and chips. mw2 22:30 Safety checks: Items removed: yes. Door open/sign placed on door: yes. Family/friend mw2 present: no. Sitter present: Yes. 22:45 Safety checks: Items removed: yes. Door open/sign placed on door: yes. Family/friend mw2 present: no. Sitter present: Yes. 22:54 No provider procedures requiring assistance completed. ak1 23:00 Safety checks: Items removed: yes. Door open/sign placed on door: yes. Family/friend mw2 present: no. Sitter present: Yes. 23:15 Safety checks: Items removed: yes. Door open/sign placed on door: yes. Family/friend mw2 present: no. Sitter present: Yes. 23:30 Safety checks: Items removed: yes. Door open/sign placed on door: yes. Family/friend mw2 present: no. Sitter present: Yes. 23:45 Safety checks: Items removed: yes. Door open/sign placed on door: yes. Family/friend mw2 present: no. Sitter present: Yes. 08/14 00:00 Safety checks: Items removed: yes. Door open/sign placed on door: yes. Family/friend mw2 present: no. Sitter present: Yes. 00:15 Safety checks: Items removed: yes. Door open/sign placed on door: yes. Family/friend mw2 present: no. Sitter present: Yes. 00:30 Safety checks: Items removed: yes. Door open/sign placed on door: yes. Family/friend mw2 present: no. Sitter present: Yes. 00:45 Safety checks: Items removed: yes. Door open/sign placed on door: yes. Family/friend mw2 present: no. Sitter present: Yes. 00:57 IV discontinued, bleeding controlled, No redness/swelling at site. Pressure dressing mw2 applied. 01:00 Safety checks: Items removed: yes. Door open/sign placed on door: yes. Family/friend mw2 present: no. Sitter present: Yes. 01:11 IV discontinued. ak1 01:15 Safety checks: Items removed: yes. Door open/sign placed on door: yes. Family/friend mw2 present: no. Sitter present: Yes. 01:30 Safety checks: Items removed: yes. Door open/sign placed on door: yes. Family/friend mw2 present: no. Sitter present: Yes. Administered Medications: No medications were administered Outcome: 08/13 23:53 ER care complete, transfer ordered by . johana 08/14 02:09 Patient left the ED. ak1 Signatures: Qing Malik RN RN sv Rittger, Kevin, MD MD kdr Munoz, Edgar, TAPPER BIT TAPPER BIT Faviola Allison RN RN ak1 Martinez, Maria Mervin Ortiz MD MD gs Westbrook, MyKena mw2 Corrections: (The following items were deleted from the chart) 08/13 22:25 22:24 Diet: Patient given water. pt was given a sandwhich and chips. mw2 mw2 22:55 22:54 Patient transferred, IV remains in place. ak1 ak1 22:56 20:45 Reassessment: pt finished eating his sandwich and chips. pt resting with eyes ak1 closed, resp even and unlabored. sitter at bedside. will continue to monitor. ak1
--- NOTE | 2018-08-13 23:54 | EDPHYS ---
Physician Documentation [facility] Name: Jeovany Buckley Age: 52 yrs Sex: Male : 1965 Arrival Date: 08/13/2018 Time: 17:13 Bed 18 Private MD: ED Physician Yvon Robertson HPI: 08/13 17:58 This 52 yrs old Male presents to ER via EMS with complaints of Suicidal kdr Ideation, Abdominal Pain. 17:58 The patient presents to the emergency department with depression, suicide ideation. kdr Historical: - Allergies: 17:18 Aspirin; sv 17:18 PENICILLINS; sv 17:18 Sulfa (Sulfonamide Antibiotics); sv - Home Meds: 17:18 buspirone 10 mg Oral tab 1 tab 2 times per day [Active]; Lexapro 20 mg Oral tab 1 tab sv once daily [Active]; lisinopril 5 mg Oral tab 1 tab once daily [Active]; Nexium 40 mg Oral cpDR 1 cap once daily [Active]; Tramadol Oral [Active]; Trazodone Oral [Active]; Seroquel 400 mg Oral tab 1 tab 2 times per day [Active]; Sucralfate Oral [Active]; - PMHx: 17:18 Bipolar disorder; DVT; RLE; Kaveh's Disease; Hypertension; liver damage; Renal sv Disease; - PSHx: 17:18 Cholecystectomy; sv - Immunization history:: Adult Immunizations up to date. - Social history:: Smoking status: Patient uses tobacco products, smokes one-half pack cigarettes per day, Patient/guardian denies using alcohol, street drugs, IV drugs. - Ebola Screening: : No symptoms or risks identified at this time. ROS: 19:47 Constitutional: Negative for fever, chills, and weight loss, Eyes: Negative for injury, kdr pain, redness, and discharge, ENT: Negative for injury, pain, and discharge, Neck: Negative for injury, pain, and swelling, Cardiovascular: Negative for chest pain, palpitations, and edema, Respiratory: Negative for shortness of breath, cough, wheezing, and pleuritic chest pain, Abdomen/GI: Negative for abdominal pain, nausea, vomiting, diarrhea, and constipation, Back: Negative for injury and pain, : Negative for injury, bleeding, discharge, and swelling, MS/Extremity: Negative for injury and deformity, Skin: Negative for injury, rash, and discoloration, Neuro: Negative for headache, weakness, numbness, tingling, and seizure activity. 19:47 Psych: Positive for suicidal ideation. Exam: 19:47 Constitutional: This is a well developed, well nourished patient who is awake, alert, kdr and in no acute distress. Head/Face: Normocephalic, atraumatic. Eyes: Pupils equal round and reactive to light, extra-ocular motions intact. Lids and lashes normal. Conjunctiva and sclera are non-icteric and not injected. Cornea within normal limits. Periorbital areas with no swelling, redness, or edema. Chest/axilla: Normal chest wall appearance and motion. Nontender with no deformity. No lesions are appreciated. Cardiovascular: Regular rate and rhythm with a normal S1 and S2. No gallops, murmurs, or rubs. Normal PMI, no JVD. No pulse deficits. Respiratory: Lungs have equal breath sounds bilaterally, clear to auscultation and percussion. No rales, rhonchi or wheezes noted. No increased work of breathing, no retractions or nasal flaring. Abdomen/GI: Soft, non-tender, with normal bowel sounds. No distension or tympany. No guarding or rebound. No evidence of tenderness throughout. Back: No spinal tenderness. No costovertebral tenderness. Full range of motion. 19:47 Psych: Behavior/mood is cooperative, depressed, Affect is flat, Oriented to person, place, time, Patient having thoughts of suicide. Plan for suicide is Overdose on pills/his medications as he has before Judgement / Insight is normal. Delusions/hallucinations are not present. Vital Signs: 17:18 BP 114 / 88; Pulse 106; Resp 20; Temp 98.3; Pulse Ox 98% ; Height 5 ft. 10 in. (177.80 sv cm); Pain 8/10; 18:30 BP 111 / 82; Pulse 88; Resp 20; Temp 98.6(O); Pulse Ox 98% on R/A; mh5 22:23 BP 126 / 62; Pulse 85; Resp 16; Temp 98.4; Pulse Ox 100% on R/A; mw2 23:19 Weight 86.18 kg (R); ak1 23:19 Body Mass Index 27.26 (86.18 kg, 177.80 cm) ak1 MDM: 23:53 Patient medically screened. 08/13 17:22 Order name: Acetaminophen; Complete Time: 23:56 [facility] 08/13 17:22 Order name: Basic Metabolic Panel; Complete Time: 23:56 [facility] 08/13 17:22 Order name: CBC with Diff; Complete Time: 23:56 [facility] 08/13 17:22 Order name: ETOH Level; Complete Time: 23:56 [facility] 08/13 17:22 Order name: Hepatic Function; Complete Time: 23:56 [facility] 08/13 17:22 Order name: PT-INR; Complete Time: 23:56 [facility] 08/13 17:22 Order name: Ptt, Activated; Complete Time: 23:56 [facility] 08/13 17:22 Order name: Salicylate; Complete Time: 23:56 [facility] 08/13 17:22 Order name: Urine Drug Screen; Complete Time: 23:56 [facility] 08/13 17:22 Order name: IV Saline Lock; Complete Time: 17:52 [facility] 08/13 17:22 Order name: Labs collected and sent; Complete Time: 17:52 [facility] 08/13 17:22 Order name: Urine Dipstick-Ancillary (obtain specimen); Complete Time: 22:01 [facility] 08/13 17:51 Order name: Diet Regular; Complete Time: 17:53 mh5 Administered Medications: No medications were administered Disposition: 08/13/18 23:53 Transfer ordered to Psych Facility. Diagnosis are Suicidal ideations, Suicide attempt. - Reason for transfer: Higher level of care. - Accepting physician is tbd. - Condition is Stable. - Problem is new. - Symptoms are unchanged. Signatures: Dispatcher [employer] Qing Lobato RN RN sv Rittger, Kevin, MD MD kdr Krenek, Amber, RN RN ak1 Mervin Valero MD MD Corrections: (The following items were deleted from the chart) 08/14 02:09 08/13 23:53 08/13/2018 23:53 Transfer ordered to Psych Facility. Diagnosis is Suicidal ak1 ideations; Suicide attempt. Reason for transfer: Higher level of care. Accepting physician is tbd. Condition is Stable. Problem is new. Symptoms are unchanged.
[2018-08-14 03:05] VITALS: BP 126/62; TEMP 98.4; O2SAT 100
--- NOTE | 2018-08-14 09:47 | EKG ---
Test Date: 2018-08-13 Test Time: 19:10:08 Accounts Receivable Collector: DLIAN MEASUREMENT RESULTS: Intervals: Rate: 83 SC: 244 QRSD: 84 QT: 378 QTc: 444 Cutler: P: 53 SC: 244 QRS: -56 T: 45 INTERPRETIVE STATEMENTS: Sinus rhythm with 1st degree AV block Left anterior fascicular block Possible Anterior infarct, age undetermined Abnormal ECG Compared to ECG 05/01/2018 05:54:26 First degree AV block now present Myocardial infarct finding still present Electronically Signed On 08-14-18 09:46:28 CDT by Luis Masters
== END 2018-08-14 02:09 ==
LOC: ER 17:06
DX: R45.851 Suicidal ideations (principal); F31.9 Bipolar disorder, unspecified; I10 Essential (primary) hypertension; G10 Huntington's disease; Z88.6 Allergy status to analgesic agent; Z88.0 Allergy status to penicillin; Z88.2 Allergy status to sulfonamides; F17.210 Nicotine dependence, cigarettes, uncomplicated
CPT/HCPCS: 36415; 80048; 80076; 80307; 80320; 80329; 85025; 85610; 85730; 93005; 99284

== ENCOUNTER 2018-09-20 03:28 | Emergency (ER) | payer MEDICARE, OTHER ==
--- OUTSIDE RECORDS SUMMARY | 2018-09-20 03:33 | XMS REPORT | Clinical Summary ---
:1965 Author Organization [employer] Address [address] [place] [address] Care Team Providers Name Role Phone Asked, [...] without cholecystitis without obstruction (Primary Dx) after 09/19/2017 Immunizations Name Dates Previously Given Next Due [...] Health Maintenance Due Date Last Done Comments COLONOSCOPY SCREENING 10/28/2017 SHINGLES VACCINES (#1) 10/28/2017 INFLUENZA [...] procedure are in the results section. after 09/19/2017 Results ECG 12 lead (11/17/2017 2:13 AM CDT)Only the most recent of2 resultswithin the time period is included. Ventricular rate 93 [facility] Atrial rate 93 [facility] NV interval 194 [facility] QRSD interval 76 [facility] QT interval 346 [facility] QTC interval 430 [facility] P axis 1 13 [facility] QRS axis 1 -52 [facility] T wave axis 27 [facility] MUSE EKG impression Normal sinus [facility] MUSE rhythm-Left axis deviation-Abnormal ECG-- Specimen Performing Organization Address [facility] Phone Number [facility] MUSE [address] [place] [phone] Estimated GFR (11/17/2017 1:42 AM CDT)Only the most recent of3 resultswithin the time period is included. Pathologist [facility] GFR Non Af Amer 38 (A) mL/min/1.73 [facility] DEPARTMENT OF m2 PATHOLOGY AND GENOMIC MEDICINE GFR Af Amer 46 (A) mL/min/1.73 [facility] DEPARTMENT OF Comment: m2 PATHOLOGY AND Chronic [...] Americans. Specimen Plasma specimen Performing Organization Address [facility] Phone Number [facility] DEPARTMENT OF PATHOLOGY AND [address] [place] [address] Thyroid stimulating hormone (11/17/2017 1:42 AM CDT)Only the most recent of2 resultswithin the time period is included. TSH 1.20 0.27 - 4.20 uIU/mL [facility] DEPARTMENT OF PATHOLOGY AND GENOMIC MEDICINE Specimen Plasma specimen Performing Organization Address City/[facility] Phone Number [facility] DEPARTMENT OF PATHOLOGY AND [address] [place] [address] T4, free (11/17/2017 1:42 AM CDT)Only the most recent of2 resultswithin the time period is included. T4, free 1.1 0.9 - 1.7 ng/dL [facility] DEPARTMENT OF PATHOLOGY AND GENOMIC MEDICINE Specimen Plasma specimen Performing Organization Address City/[facility] Phone Number [facility] DEPARTMENT OF PATHOLOGY AND [address] [place] [address] GENOMIC MEDICINE Alcohol level, blood (11/17/2017 1:42 AM CDT)Only the most recent of2 resultswithin the time period is included. Alcohol None Detected mg/dL [facility] DEPARTMENT OF Comment: PATHOLOGY AND Normal None Detected GENOMIC MEDICINE Legal Intoxication in [place]80 mg/dL (0.08%) - Whole Blood Toxic Bwkuvplmrvsgu473 mg/dL (0.2%) Potentially Wiayt719 - 500 mg/dL (0.35 - 0.5%) Alcohol percent None Detected % [facility] DEPARTMENT OF PATHOLOGY AND GENOMIC MEDICINE Specimen Plasma specimen Performing Organization Address [facility] Phone Number [facility] DEPARTMENT OF PATHOLOGY AND [address] [place] [address] MEDICINE Acetaminophen level (11/17/2017 1:42 AM CDT)Only the most recent of2 resultswithin the time period is included. Acetaminophen level <15.0 10.0 - 30.0 [facility] DEPARTMENT OF Comment: ug/mL PATHOLOGY AND Therapeutic 10-30 ug/mL GENOMIC MEDICINE Possible Toxicity 150-200 ug/mL Probable Toxicity >200 ug/mL Specimen Plasma specimen Performing Organization Address [facility] Phone Number [facility] DEPARTMENT OF PATHOLOGY AND [address] [place] [address] MEDICINE Salicylate level (11/17/2017 1:42 AM CDT)Only the most recent of2 resultswithin the time period is included. Salicylate <3.0 3.0 - 30.0 mg/dL [facility] DEPARTMENT OF PATHOLOGY AND GENOMIC MEDICINE Specimen Plasma specimen Performing Organization Address [facility] Phone Number [facility] DEPARTMENT OF PATHOLOGY AND [address] [place] [address] MEDICINE Comprehensive metabolic panel (11/17/2017 1:42 AM CDT)Only the most recent of3 resultswithin the time period is included. Sodium 134 (L) 135 - 148 [facility] DEPARTMENT OF mEq/L PATHOLOGY AND GENOMIC MEDICINE Potassium 4.4 3.5 - 5.0 [facility] DEPARTMENT OF mEq/L PATHOLOGY AND GENOMIC MEDICINE Chloride 103 98 - 112 mEq/L [facility] DEPARTMENT OF PATHOLOGY AND GENOMIC MEDICINE CO2 16 (L) 24 - 31 mEq/L [facility] DEPARTMENT OF PATHOLOGY AND GENOMIC MEDICINE Anion gap 15@ANIO 7 - 15 mEq/L [facility] DEPARTMENT OF PATHOLOGY AND GENOMIC MEDICINE BUN 22 (H) 6 - 20 mg/dL [facility] DEPARTMENT OF PATHOLOGY AND GENOMIC MEDICINE Creatinine 1.9 (H) 0.7 - 1.2 [facility] DEPARTMENT OF mg/dL PATHOLOGY AND GENOMIC MEDICINE Glucose 116 (H) 65 - 99 mg/dL [facility] DEPARTMENT OF PATHOLOGY AND GENOMIC MEDICINE Calcium 8.8 8.3 - 10.2 [facility] DEPARTMENT OF mg/dL PATHOLOGY AND GENOMIC MEDICINE Protein 7.2 6.3 - 8.3 g/dL [facility] DEPARTMENT OF Comment: PATHOLOGY AND 4.6-7.0 g/dL GENOMIC MEDICINE 1 week 4.4-7.6 g/dL 7 months-1year5.1-7.3 g/dL 1-2 years5.6-7.5 g/dL >3 years6.0-8.0 g/dL 18-150 6.3-8.3 g/dL Albumin 3.8 3.5 - 5.0 g/dL [facility] DEPARTMENT OF PATHOLOGY AND GENOMIC MEDICINE A/G ratio 1.1 0.7 - 3.8 [facility] DEPARTMENT OF PATHOLOGY AND GENOMIC MEDICINE Alkaline phosphatase 106 40 - 129 U/L [facility] DEPARTMENT OF PATHOLOGY AND GENOMIC MEDICINE AST 28 10 - 50 U/L [facility] DEPARTMENT OF PATHOLOGY AND GENOMIC MEDICINE ALT 16 5 - 50 U/L [facility] DEPARTMENT OF PATHOLOGY AND GENOMIC MEDICINE Total bilirubin <0.2 0.0 - 1.2 [facility] DEPARTMENT OF mg/dL PATHOLOGY AND GENOMIC MEDICINE Specimen Plasma specimen Performing Organization Address City/State/Zipcode Phone Number [facility] DEPARTMENT OF PATHOLOGY AND [address] [place] [address] [facility] MEDICINE Urinalysis screen and microscopy, with reflex to culture (11/17/2017 1:33 AM CDT)Only the most recent of3 resultswithin the time period is included. Specimen site Random void [facility] DEPARTMENT OF PATHOLOGY AND GENOMIC MEDICINE Color, UA Straw [facility] DEPARTMENT OF PATHOLOGY AND GENOMIC MEDICINE Appearance, UA Clear [facility] DEPARTMENT OF PATHOLOGY AND GENOMIC MEDICINE Specific gravity, UA 1.005 1.001 - 1.035 [facility] DEPARTMENT OF PATHOLOGY AND GENOMIC MEDICINE pH, UA 6.0 5.0 - 8.5 [facility] DEPARTMENT OF PATHOLOGY AND GENOMIC MEDICINE Protein, UA Negative Negative [facility] DEPARTMENT OF PATHOLOGY AND GENOMIC MEDICINE Glucose, UA Negative Negative [facility] DEPARTMENT OF PATHOLOGY AND GENOMIC MEDICINE Ketones, UA Negative Negative [facility] DEPARTMENT OF PATHOLOGY AND GENOMIC MEDICINE Bilirubin, UA Negative Negative [facility] DEPARTMENT OF PATHOLOGY AND GENOMIC MEDICINE Blood, UA Negative Negative [facility] DEPARTMENT OF PATHOLOGY AND GENOMIC MEDICINE Nitrite, UA Negative Negative [facility] DEPARTMENT OF PATHOLOGY AND GENOMIC MEDICINE Urobilinogen, UA <2.0 <2.0 [facility] DEPARTMENT OF PATHOLOGY AND GENOMIC MEDICINE Leukocyte esterase, Trace (A) Negative [facility] DEPARTMENT OF UA PATHOLOGY AND GENOMIC MEDICINE Epithelial cells, UA 1 /HPF [facility] DEPARTMENT OF PATHOLOGY AND GENOMIC MEDICINE WBC, UA 2 (H) 0 - 1 /HPF [facility] DEPARTMENT OF PATHOLOGY AND GENOMIC MEDICINE RBC, UA 1 0 - 5 /HPF [facility] DEPARTMENT OF PATHOLOGY AND GENOMIC MEDICINE Bacteria, UA Few None seen [facility] DEPARTMENT OF PATHOLOGY AND GENOMIC MEDICINE Yeast, UA None seen [facility] DEPARTMENT OF PATHOLOGY AND GENOMIC MEDICINE Yeast with None seen [facility] DEPARTMENT OF pseudohyphae, UA PATHOLOGY AND GENOMIC MEDICINE Specimen Urine Performing Organization Address City/State/Zipcode Phone Number [facility] DEPARTMENT OF PATHOLOGY AND [address] [place] [address] [facility] Urine drugs of abuse screen (11/17/2017 1:33 AM CDT)Only the most recent of2 resultswithin the time period is included. Amphetamine screen, Negative [facility] DEPARTMENT OF urine PATHOLOGY AND GENOMIC MEDICINE Barbiturate screen, Negative [facility] DEPARTMENT OF urine PATHOLOGY AND GENOMIC MEDICINE Benzodiazepine Negative [facility] DEPARTMENT OF screen, urine PATHOLOGY AND GENOMIC MEDICINE Cannabinoid screen, Negative [facility] DEPARTMENT OF urine PATHOLOGY AND GENOMIC MEDICINE Cocaine screen, urine Negative [facility] DEPARTMENT OF PATHOLOGY AND GENOMIC MEDICINE Methadone metabolite Negative [facility] DEPARTMENT OF (EDDP), urine PATHOLOGY AND GENOMIC MEDICINE Opiates screen, urine Negative [facility] DEPARTMENT OF PATHOLOGY AND GENOMIC MEDICINE Oxycodone screen, Negative [facility] DEPARTMENT OF urine PATHOLOGY AND GENOMIC MEDICINE Phencyclidine screen, Negative [facility] DEPARTMENT OF urine PATHOLOGY AND GENOMIC MEDICINE Tricyclic screen, Negative [facility] DEPARTMENT OF urine Comment: PATHOLOGY AND Drug screen minimum concentration of detectability GENOMIC MEDICINE Lblhsuqzimef8136 ng/mL Barbiturates 200 ng/mL Glnnoyfezkhklin292 ng/mL Utaisdf874 ng/mL Ngatfqqtu084 ng/mL Vxukovi571 ng/mL Mrnlribbe844 ng/mL Phencyclidine 25 ng/mL Glopkjzxvcrg87 ng/mL Isadtfmlsx4360 ng/mL Negative test results indicates presumptive evidence of lack of clinically significant drug concentration in this urine specimen. Positive test results are presumptive evidence of clinically significant drug concentration in this urine specimen. Testing performed for medical purposes only. Specimen Urine Performing Organization Address City/[facility] Phone Number [facility] DEPARTMENT OF PATHOLOGY AND [address] [place] [address] GENOMIC MEDICINE Gram stain (11/17/2017 1:33 AM CDT) Gram stain result Rare WBC's [facility] DEPARTMENT OF No organisms seen PATHOLOGY AND GENOMIC MEDICINE Comment: Specimen Information Specimen Source: Urine Specimen Site: Random void Specimen Urine - Random void Performing Organization Address City/[facility] Phone Number [facility] DEPARTMENT OF PATHOLOGY AND [address] [place] [address] GENOMIC MEDICINE CBC with platelet and differential (11/17/2017 1:33 AM CDT)Only the most recent of3 resultswithin the time period is included. WBC 11.00 4.50 - 11.00 [facility] DEPARTMENT OF k/uL PATHOLOGY AND GENOMIC MEDICINE RBC 3.88 (L) 4.40 - 6.00 [facility] DEPARTMENT OF m/uL PATHOLOGY AND GENOMIC MEDICINE HGB 11.7 (L) 14.0 - 18.0 [facility] DEPARTMENT OF g/dL PATHOLOGY AND GENOMIC MEDICINE HCT 36.1 (L) 41.0 - 51.0 % [facility] DEPARTMENT OF PATHOLOGY AND GENOMIC MEDICINE MCV 93.0 82.0 - 100.0 [facility] DEPARTMENT OF fL PATHOLOGY AND GENOMIC MEDICINE MCH 30.2 27.0 - 34.0 [facility] DEPARTMENT OF PATHOLOGY AND GENOMIC MEDICINE MCHC 32.4 31.0 - 37.0 [facility] DEPARTMENT OF g/dL PATHOLOGY AND GENOMIC MEDICINE RDW - SD 48.8 37.0 - 55.0 [facility] DEPARTMENT OF fL PATHOLOGY AND GENOMIC MEDICINE MPV 9.5 8.8 - 13.2 [facility] DEPARTMENT OF PATHOLOGY AND GENOMIC MEDICINE Platelet count 240 150 - 400 [facility] DEPARTMENT OF k/uL PATHOLOGY AND GENOMIC MEDICINE Nucleated RBC 0.00 /100 WBC [facility] DEPARTMENT OF PATHOLOGY AND GENOMIC MEDICINE Neutrophils 50.8 39.0 - 69.0 % [facility] DEPARTMENT OF PATHOLOGY AND GENOMIC MEDICINE Lymphocytes 37.5 25.0 - 45.0 % [facility] DEPARTMENT OF PATHOLOGY AND GENOMIC MEDICINE Monocytes 6.3 0.0 - 10.0 % [facility] DEPARTMENT OF PATHOLOGY AND GENOMIC MEDICINE Eosinophils 4.4 0.0 - 5.0 % [facility] DEPARTMENT OF PATHOLOGY AND GENOMIC MEDICINE Basophils 0.4 0.0 - 1.0 % [facility] DEPARTMENT OF PATHOLOGY AND GENOMIC MEDICINE Immature granulocytes 0.6Comment: 0.0 - 1.0 % [facility] DEPARTMENT OF "Immature PATHOLOGY AND granulocytes" GENOMIC MEDICINE (promyelocytes , myelocytes, metamyelocytes ) Specimen Blood Performing Organization Address City/[facility] Phone Number [facility] DEPARTMENT OF PATHOLOGY AND [address] [place] [address] Urine culture (11/17/2017 1:33 AM CDT)Only the most recent of3 resultswithin the time period is included. Urine culture No growth after 2 days. [facility] DEPARTMENT OF isolate Comment: PATHOLOGY AND Specimen Information [facility] MEDICINE Specimen Source: Urine Specimen Site: Random void Specimen Urine - Random void Performing Organization Address City/[facility] Phone Number [facility] DEPARTMENT OF PATHOLOGY AND [address] [place] [address] [facility] [place] Gallbladder (09/29/2017 3:20 PM CDT)Only the [...] 1.1 cm, within normal limits. IMPRESSION: Cholelithiasis. [id number] Procedure Note Hm Interface, Radiology Results Incoming [...] 1.1 cm, within normal limits. IMPRESSION: Cholelithiasis. [id number] Performing Organization Address City/[facility]/Zipcode Phone Number [facility] [address] [place] [address] Lipase level (09/29/2017 2:45 PM CDT)Only the most recent of2 resultswithin the time period is included. Lipase 56 13 - 60 U/L [facility] DEPARTMENT OF PATHOLOGY AND GENOMIC MEDICINE Specimen Plasma specimen Performing Organization Address City/[facility] Phone Number [facility] DEPARTMENT OF PATHOLOGY AND [address] [place] [phone] GENOMIC MEDICINE ECG ED Preliminary Interpretation - NOT AN ORDER (09/29/2017 2:33 PM CDT) Narrative Performed At Kristi Flores MD 10/01/20179:51 AM ECG ED Preliminary Interpretation - Not an Order Performed by: KRISTI FLORES Authorized by: KRISTI FLORES ECG reviewed by ED Physician in the absence of a military science teacher: yes Interpretation: Interpretation: abnormal Rate: ECG rate:70 ECG rate assessment: normal Rhythm: Rhythm: sinus rhythm QRS: QRS axis:Left QRS intervals:Normal ST segments: ST segments:Normal CT Renal Stone Protocol (09/26/2017 1:46 AM CDT) Specimen Narrative Performed At Examination:CT RENAL STONE PROTOCOL [facility] Clinical History: R flank painhematuria Comparison: [...] with adynamic ileus or gastroenteritis. [facility]-[id number] Procedure Note Interface, Radiology Results Incoming - [...] with adynamic ileus or gastroenteritis. [facility]-[id number] Performing Organization Address City/State/Zipcode Phone Number [facility] [address] [place] [address] after 09/19/2017 Insurance Payer Benefit Plan / Subscriber ID Effective Dates Phone Address Type Group MEDICARE MEDICARE PART A xxxxxxxxxx 2002-Present [place], [place] Medicare AND B Advance Directives Patient has advance care planning documents on file. For more information, please contact:Babatunde [id number] [place] [address]
--- OUTSIDE RECORDS SUMMARY | 2018-09-20 03:45 | XMS REPORT | Continuity of Care Document ---
:1965 Author Organization [facility] Care Team Providers Name Role Phone [facility] Unavailable Unavailable Problems Problem Status Onset Classification Date Comments Source Date Reported Calculus of 02/13/20 06/20/2018 [facility] gallbladder with 18 acute and chronic cholecystitis without obstruction Acute kidney 01/14/20 07/24/2018 [facility] failure with 18 tubular necrosis (L) SIDE PAIN Active 01/01/20 [facility] 18 Postprocedural 12/30/19 07/04/2018 [facility] hematoma of a 18 digestive system organ or structure following a digestive system procedure FLANK PAIN Active 12/13/19 [facility] 18 CP Active 11/30/19 [facility] 18 ABDOMINAL PAIN Active 11/27/19 [facility] 18 Acute kidney Active 06/19/19 Finding [...] 06/19/[address] [facility] [place]'s Active 06/19/19 Finding 06/19/[address] [facility] disease 18 [facility] Deep vein Active 06/19/19 Finding 06/19/[address] [facility] [address] thrombosis of [facility] [place] extremity PAD Active 06/03/19 Finding 06/19/[address] [facility] Acute embolism 06/01/19 08/30/2017 [facility] and thrombosis of 18 Medical right femoral Center vein Acute deep vein 05/24/19 08/30/2017 [facility] thrombosis of 18 Medical distal lower Center extremity LEG PAIN Active 05/24/[address] Acute renal Active Finding 06/19/[address] [facility] [...] right popliteal Center vein Chronic kidney 08/30/2017 [facility] disease, Medical unspecified Center Suicidal 07/04/2018 [facility] ideations [place]'s 07/24/2018 [facility] disease Chronic embolism 07/04/2018 [facility] thrombosis of unspecified deep veins of unspecified lower extremity Acute kidney 07/04/2018 [facility] failure, unspecified Other ascites 07/04/2018 [facility] Other infectious 07/04/2018 [facility] disease Right upper 07/04/2018 [facility] quadrant pain Cyst of kidney, 07/04/2018 [facility] acquired Other surgical 07/04/2018 [facility] procedures as the cause of abnormal reaction of the patient, or of later complication, without mention of misadventure at the time of the procedure Chronic kidney 07/24/2018 [facility] disease, stage 3 Nicotine 07/24/2018 [facility] dependence, cigarettes, uncomplicated Bipolar disorder, 07/24/2018 [facility] unspecified Gastro-esophageal 07/24/2018 [facility] reflux disease without esophagitis Diaphragmatic 07/04/2018 [facility] hernia without obstruction or gangrene Acquired absence 07/24/2018 [facility] of other specified parts of digestive tract 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 [facility] Calculus of Active Problem 07/24/2018 [facility] gallbladder with chronic cholecystitis with obstruction Calculus of Active Problem 07/24/2018 [facility] gallbladder with chronic cholecystitis without obstruction CKD (Confirmed) Active Problem 07/24/2018 [facility] Liver dysfunction Active Problem 07/24/2018 [facility] DVT (Confirmed) Active Problem 07/24/2018 [facility] [place] Active Problem 07/24/[address] [facility] [address] [facility] Chronic embolism 06/20/2018 [facility] and thrombosis of unspecified deep veins of right lower extremity Acute gastritis 06/20/2018 [facility] without bleeding Constipation, 06/17/2018 [facility] unspecified Hyperkalemia 06/20/2018 [facility] Dehydration 07/24/2018 [facility] Acidosis 07/24/2018 [facility] Hypertensive 07/24/2018 [facility] chronic kidney disease with stage 1 through stage 4 chronic kidney disease, or unspecified chronic kidney disease Hypocalcemia 07/24/2018 [facility] Anemia, 07/24/2018 [facility] unspecified Hypovolemia 07/24/2018 [facility] Hematuria, 07/24/2018 [facility] unspecified Personal history 07/24/2018 [facility] of other venous thrombosis and embolism ACUTE Active [facility] CHOLECYSTITIS CALCULUS OF Active [facility] GALLBLADDER W CHRONIC CHOLEC OTHER ASCITES Active [facility] OTHER SPECIFIED Active [facility] DISORDERS OF PERITONEUM ACUTE KIDNEY Active [facility] FAILURE, UNSPECIFIED UNSPECIFIED Active [facility] KIDNEY FAILURE Medications Medication Details Route Status Patient Ordering Order Source Instructions Provider Date Flomax 0.4 mg, 1 cap, Inactive Route: PO, Drug 2017 [facility] form: CAP, After Breakfast, Dosing Weight 84.6, kg, Start date: 01/04/18 8:30:00 CDT, Duration: 30 day, Stop date: 02/02/18 8:30:00 CSTNotes: (Same As: Flomax) "Do Not Crush" apixaban 2.5 MG 2.5 mg=1 tab, Active Oral Tablet PO, BID, # 60 2018 [facility] [Eliquis] tab, 0 Refill(s), Pharmacy: [facility]/pharmacy #[id number] Folic Acid 1 MG 1 mg=1 tab, PO, Active Oral Tablet Daily, # 30 2018 [facility] tab, 3 Refill(s), Pharmacy: [facility]/pharmacy #[id number] oxybutynin 5 mg 5 mg=1 tab, PO, Active oral tablet, Daily, # 30 2018 [facility] extended release tab, 1 Refill(s), Pharmacy: [facility]/pharmacy #[id number] ferrous sulfate 325 mg=1 tab, Active 325 MG Oral PO, BID, # 60 2018 [facility] Tablet tab, 2 Refill(s), Pharmacy: [facility]/pharmacy #[id number] QUEtiapine 100 300 mg=3 tab, Active mg oral tablet PO, Bedtime, 0 2017 [facility] Refill(s) Potassium 40 mEq, 2 pkt, Inactive Chloride 1.33 Route: PO, Drug 2017 [facility] MEQ/ML Oral form: PDR/REC, Solution ONCE, Dosing Weight 84.6, kg, Start date: 01/03/18 17:41:00 CDT, Stop date: 01/03/18 17:41:00 CDTNotes: (Same as: K-Tania) With food and full glass of water Acetaminophen 1 tab, Route: No Longer 300 MG / Codeine PO, Drug Form: Active 2017 [facility] Phosphate 30 MG TAB, Dosing Oral Tablet Weight 84.6, [Tylenol with kg, Q6H, PRN Codeine #3] Pain Score 4-6, Start date: 01/03/18 15:02:00 CDT, Duration: 30 day, Stop date: 02/02/18 15:01:00 CSTNotes: Do not exceed 4gm/day of acetaminophen. (Same as: Tylenol with Codeine # 3) ferrous sulfate 325 mg, 1 tab, No Longer Route: PO, Drug Active 2017 [facility] form: TAB, TID, Dosing Weight 84.6, kg, Priority: NOW, Start date: 01/03/18 9:41:00 CDT, Duration: 30 day, Stop date: 02/02/18 6:00:00 CSTNotes: Give with food. iron elemental [id number] as ferrous sulfate Dose=___mg elemental iron Folic Acid 1 mg, 0.2 mL, No Longer Route: IVPB, Active 2017 [facility] Drug form: INJ, Daily, Dosing Weight 84.6, kg, Priority: NOW, Start date: 01/03/18 9:39:00 CDT, Duration: 30 day, Stop date: 02/02/18 9:00:00 CSTNotes: (Same as: Folvite) Seroquel 300 mg, 3 tab, No Longer Route: PO, Drug Active 2017 [facility] form: TAB, Bedtime, Dosing Weight 86.364, kg, Start date: 01/01/18 21:00:00 CDT, Duration: 30 day, Stop date: 01/30/18 21:00:00 CSTNotes: (Same as: SEROquel) zolpidem 5 mg, 1 tab, No Longer Route: PO, Drug Active 2017 [facility] form: TAB, Bedtime, Dosing Weight 84.6, kg, Start date: 01/01/18 21:00:00 CDT, Duration: 30 day, Stop date: 01/30/18 21:00:00 CSTNotes: (Same As: Ambien) Nicotine 14 mg, 1 patch, No Longer Route: TOP, Active 2017 [facility] Drug form: ERFILM, Daily, Dosing Weight 84.6, [...] times, Stop date: 01/01/18 22:43:00 CDT, 2.06, m2Sbekx: (sodium bicarb 8.4% (1 mEq/ml) 50 ml VL) D5W 1,000 mL + 1,000 mL, Rate: No Longer sodium acetate 2 125 ml/hr, Active 2017 [facility] mEq/mL Infuse over: intravenous 8.6 hr, Route: solution 150 mEq IV, Dosing Weight 84.6 kg, Total Volume: 1,075, Start date: 01/01/18 11:55:00 CDT, Duration: 30 day, Stop date: 01/31/18 11:54:00 [place], 2.06, m2 sodium 850 mL, Rate: Inactive bicarbonate 150 100 ml/hr, 2017 mEq + Dextrose Infuse over: 10 5% in Water IV hr, Route: IV, 850 mL Dosing Weight 84.6 kg, Total Volume: 1,000, Start date: 01/01/18 11:00:00 CDT, Duration: 30 day, Stop date: 01/31/18 10:59:00 [place], 2.06, v6Fsida: (sodium bicarb 8.4% (1 mEq/ml) 50 ml VL) Protonix 40 mg, 1 tab, No Longer 1020/ MH Route: PO, Drug Active 2017 [facility] form: ECTAB, Daily, Dosing Weight 84.6, kg, Start date: 01/01/18 11:00:00 CDT, Duration: 30 day, Stop date: 01/31/18 9:00:00 CSTNotes: Tablet should not be chewed or crushed. (Same as: Protonix) Lexapro 10 mg, 1 tab, No Longer 10/ MH Route: PO, Drug Active 2017 [facility] form: TAB, Daily, Dosing Weight 84.6, kg, Start date: 01/01/18 11:00:00 CDT, Duration: 30 day, Stop date: 01/31/18 9:00:00 CSTNotes: (Same as: Lexapro) Flagyl 500 mg, 100 mL, No Longer 10/ MH Route: IVPB, Active 2017 [facility] Drug form: INJ, ABXQ8H, Dosing Weight 84.6, kg, Start date: 01/01/18 10:00:00 CDT, Duration: 7 day, Stop date: 01/08/18 2:00:00 CDT, ABX Indication: Infectious DiarrheaNotes: (Same as: Flagyl) Avoid alcohol. Trazodone 100 mg, 1 tab, No Longer 01/01/ MH Route: PO, Drug Active 2017 [facility] form: TAB, Bedtime, Dosing Weight 84.6, kg, [...] Duration: 30 day, Stop date: 01/31/18 9:09:00 [place], 2.06, m2 Eliquis 5 mg, 1 tab, No Longer Route: PO, Drug 2017 [facility] form: TAB, Q12H, Dosing Weight 86.364, kg, Start date: 01/01/18 9:00:00 CDT, Duration: 30 day, Stop date: 01/30/18 21:00:00 CSTNotes: Same as: Eliquis Buspirone 15 mg, 3 tab, No Longer 01/01/ MH Route: PO, Drug Active 2017 [facility] form: TAB, Daily, Dosing Weight 86.364, kg, Start date: 01/01/18 9:00:00 CDT, Duration: 30 day, Stop date: 01/30/18 9:00:00 CSTNotes: (Same As: BuSpar) Lisinopril 5 mg, 1 tab, Inactive Route: PO, Drug 2017 [facility] form: TAB, Daily, Dosing Weight 86.364, kg, [...] 3 mg, 1 tab, No Longer 01/01/ Route: PO, Drug Active 2017 [facility] form: TAB, Bedtime, Dosing Weight 86.364, kg, PRN Insomnia, Start date: 12/31/17 23:32:00 CDT, Duration: 30 day, Stop date: 01/30/18 23:31:00 CSTNotes: (Same as: Melatonin) Oxycodone 5 mg, 1 tab, No Longer 01/01/ MH Hydrochloride 5 Route: PO, Drug Active 2017 [facility] MG Oral Tablet form: TAB, Q4H, Dosing Weight 86.364, kg, PRN Pain Score 4-6, Start date: 12/31/17 23:32:00 CDT, Duration: 30 day, Stop date: 01/30/18 23:31:00 CSTNotes: (Same as: Roxicodone) Acetaminophen 650 mg, 2 tab, No Longer Route: PO, Drug Active 2017 [facility] form: TAB, Q6H, Dosing Weight 86.364, kg, PRN Pain 1-3/Temp > 100.4 F, Start date: 12/31/17 23:32:00 CDT, Duration: 30 day, Stop date: 01/30/18 23:31:00 CSTNotes: Do not exceed 4 gm/day. (Same as: Tylenol) Morphine 2 mg, 0.5 mL, No Longer Route: IVP, Active 2017 [facility] form: SOLN, Q4H, Dosing Weight 86.364, kg, PRN Pain Score 7-10, Start date: 12/31/17 23:32:00 CDT, Duration: 30 day, Stop date: 01/30/18 23:31:00 CSTNotes: (Same as:MORPhine Sulfate) Glucagon 1 mg, Route: No Longer 01/01/ IM, Drug form: Active 2017 [facility] PDR/INJ, PRN, Dosing Weight 86.364, kg, PRN Blood Glucose Results, Start date: 12/31/17 23:30:00 CDT, Duration: 30 day, Stop date: 01/30/18 22:29:00 [place] Dextrose 50% 25 gm, 50 mL, No Longer Syringe Route: IVP, Active 2017 [facility] Drug Form: INJ, Dosing Weight 86.364, kg, PRN, PRN Blood Glucose Results, Start date: 12/31/17 23:30:00 CDT, Duration: 30 day, Stop date: 01/30/18 22:29:00 [place] Ondansetron 4 mg, 2 mL, No Longer Route: IVP, Active 2017 [facility] form: INJ, Q8H, Dosing Weight 86.364, kg, PRN Nausea & Vomiting, Start date: 12/31/17 23:30:00 CDT, Duration: 30 day, Stop date: 01/30/18 23:29:00 CSTNotes: (Same as: Zofran) MEDICATION WASTE Product Size: 4 mg Product Wasted: ___ mg normal saline 1,000 mL, Rate: No Longer 10/ MH 0.9% IV 1,000 mL 150 ml/hr, Active 2017 [facility] Infuse over: 6.7 hr, Route: IV, Dosing Weight 86.364 kg, Total Volume: 1,000, Start date: 12/31/17 23:30:00 CDT, Duration: 30 day, Stop date: 01/30/18 23:29:00 [place], 2.09, m2 NS (Bolus) IV 500 mL, 500 Inactive 10/ MH ml/hr, Infuse 2017 [facility] Over: 1 hr, Route: IV, 500, Drug form: INJ, ONCE, Priority: STAT, Dosing Weight 86.364 kg, Start date: 12/31/17 21:05:00 CDT, Stop date: 12/31/17 21:05:00 CDT Phenergan 25 mg, 1 mL, Inactive Route: IVPB, 2017 [facility] Drug form: INJ, ONCE, Dosing Weight 86.364, kg, Priority: STAT, Start date: 12/31/17 21:04:00 CDT, Stop date: 12/31/17 21:04:00 CDTNotes: Do not give IV push. (Same as: Phenergan) Tylenol 975 mg, 3 tab, Inactive Route: PO, Drug 2017 [facility] form: TAB, ONCE, Dosing Weight 86.364, kg, Priority: STAT, Start date: 12/31/17 21:04:00 CDT, Stop date: 12/31/17 21:04:00 CDTNotes: Do not exceed 4 gm/day. (Same as: Tylenol) Saline Flush 10 mL, Route: No Longer 01/01/ MH 0.9% IVP, Drug Form: Active 2017 [facility] INJ, Dosing Weight 86.364, kg, PRN, PRN Line Flush, Start date: 12/31/17 19:29:00 CDT, Duration: 30 day, Stop date: 01/30/18 18:28:00 CSTNotes: (Same as: BD Posiflush) Tramadol 50 mg, 1 tab, No Longer Route: PO, Drug Active 2017 [facility] form: TAB, Q4H, Dosing Weight 83.636, kg, PRN Pain Score 4-6, Start date: 12/14/17 10:27:00 CDT, Duration: 30 day, Stop date: 01/13/18 10:26:00 CDTNotes: Not to exceed 400mg/day. (Same As: Ultram) Protonix 40 mg, 1 tab, No Longer Route: PO, Drug Active 2017 [facility] form: ECTAB, Daily, Dosing Weight 83.636, kg, Start date: 12/13/17 16:30:00 CDT, Duration: 30 day, Stop date: 01/11/18 16:30:00 CDTNotes: Tablet should not be chewed or crushed. (Same as: Protonix) Lexapro 20 mg, 2 tab, No Longer Route: PO, Drug Active 2017 [facility] form: TAB, Daily, Dosing Weight 83.636, kg, Start date: 12/13/17 9:00:00 CDT, Duration: 30 day, Stop date: 01/11/18 9:00:00 CDTNotes: (Same as: Lexapro) Buspar 15 mg, 3 tab, No Longer Route: PO, Drug Active 2017 [facility] form: TAB, Daily, Dosing Weight 83.636, kg, Start date: 12/13/17 9:00:00 CDT, Duration: 30 day, Stop date: 01/11/18 9:00:00 CDTNotes: (Same As: BuSpar) influenza virus 0.5 mL, Route: No Longer vaccine, IM, Drug Form: 2017 [facility] inactivated SUSP, ONCALL, Start date: 12/13/17 6:53:36 CDT, Duration: 30 day, Stop date: 01/12/18 6:52:00 CDTNotes: (Same as: Fluzone Quadrivalent, Fluarix Quadrivalent) For 3 years of age and older (0.5 mL IM) Shake well before use zolpidem 5 mg, 1 tab, No Longer Route: PO, Drug Active 2017 [facility] form: TAB, Bedtime, Dosing Weight 83.636, kg, Start date: 12/12/17 21:00:00 CDT, Duration: 30 day, Stop date: 01/10/18 21:00:00 CDTNotes: (Same As: Masoud) Seroquel 400 mg, 4 tab, No Longer Route: PO, Drug Active 2017 [facility] form: TAB, Bedtime, Dosing Weight 83.636, kg, Start date: 12/12/17 21:00:00 CDT, Duration: 30 day, Stop date: 01/10/18 21:00:00 CDTNotes: (Same as: SEROquel) Metronidazole 500 mg, 100 mL, Inactive Route: IVPB, 2017 [facility] Drug form: INJ, ONCE, Dosing Weight 83.636, kg, Priority: STAT, Start date: 12/12/17 19:27:00 CDT, Stop date: 12/12/17 19:27:00 CDT, ABX Indication: Other (specify in Comments)Notes: (Same as: Flagmary) Avoid alcohol. cefepime 1 gm, Route: Inactive IVPB, ONCE, 2017 [facility] Dosing Weight 83.636, kg, (CrCl >/=50 ml/min), Priority: STAT, Start date: 12/12/17 19:26:00 CDT, Stop date: 12/12/17 19:26:00 CDT, ABX Indication: Other (specify in Comments)Notes: (Same As: Maxipime) MEDICATION WASTE Product Size: 1000 mg Product Wasted: ___ mg Sodium Chloride 1,000 mL, Rate: No Longer 0.9% IV 1,000 mL 100 ml/hr, Active 2017 [facility] Infuse over: 10 hr, Route: IV, Dosing Weight 83.636 kg, Total Volume: 1,000, Start date: 12/12/17 18:44:00 CDT, Duration: 30 day, Stop date: 01/11/18 18:43:00 CDT, 2.05, m2 Trazodone 100 mg, 1 tab, No Longer Route: PO, Drug Active 2017 [facility] form: TAB, Bedtime, Dosing Weight 83.636, kg, PRN Insomnia, Start date: 12/12/17 18:44:00 CDT, Duration: 30 day, Stop date: 01/11/18 18:43:00 CDTNotes: (Same As: Abelinoyrel) Morphine 2 mg, 0.5 mL, No Longer Route: IVP, Active 2017 [facility] Drug form: SOLN, Q4H, Dosing Weight 83.636, kg, PRN Pain Score 7-10, Start date: 12/12/17 18:37:00 CDT, Duration: 30 day, Stop date: 01/11/18 18:36:00 CDTNotes: (Same as:MORPhine Sulfate) Ondansetron 4 mg, 2 mL, No Longer Route: IVP, Active 2017 [facility] form: INJ, Q6H, Dosing Weight 83.636, kg, PRN Nausea & Vomiting, Start date: 12/12/17 18:37:00 CDT, Duration: 30 day, Stop date: 01/11/18 18:36:00 CDTNotes: (Same as: Liz) MEDICATION WASTE Product Size: 4 mg Product Wasted: ___ mg Acetaminophen 650 mg, 2 tab, No Longer Route: PO, Drug Active 2017 [facility] form: TAB, Q4H, Dosing Weight 83.636, kg, PRN Pain 1-3/Temp > 100.4 F, Start date: 12/12/17 18:37:00 CDT, Duration: 30 day, Stop date: 01/11/18 18:36:00 CDTNotes: Do not exceed 4 gm/day. (Same as: Tylenol) NS (Bolus) IV 1,000 mL, 2,000 Inactive ml/hr, Infuse 2017 [facility] Over: 1 hr, Route: IV, ONCE, Priority: STAT, Dosing Weight 83.636 kg, Start date: 12/12/17 17:31:00 CDT, Stop date: 12/12/17 17:31:00 CDT Acetaminophen 2 tab, PO, Q6H, Active 300 MG / Codeine PRN Pain, # 56 2017 [facility] Phosphate 30 MG tab, 0 Oral Tablet Refill(s) [Tylenol with Codeine #3] pantoprazole 40 40 mg=1 tab, Active MG Enteric PO, Daily, # 30 2018 [facility] Coated Tablet tab, 0 [Protonix] Refill(s) Escitalopram 10 10 mg=1 tab, Active MG Oral Tablet PO, Daily, # 30 2018 [facility] [Lexapro] tab, 0 Refill(s) Escitalopram 20 20 mg=1 tab, No Longer MG Oral Tablet PO, Daily, # 30 Active 2018 [facility] [Lexapro] tab, 0 Refill(s) zolpidem 5 mg 5 mg=1 tab, PO, Active oral tablet Bedtime, 0 2018 [facility] Refill(s) Ondansetron 4 mg, Route: Inactive IVP, Drug form: 2017 [facility] INJ, ONCE, Dosing Weight 83.636, kg, Priority: STAT, Start date: 12/12/17 16:33:00 CDT, Stop date: 12/12/17 16:33:00 CDT Morphine 4 mg, Route: Inactive IVP, ONCE, 2018 [facility] Dosing Weight 83.636, kg, Priority: STAT, Start date: 12/12/17 16:33:00 CDT, Stop date: 12/12/17 16:33:00 CDT Saline Flush 10 mL, Route: No Longer 0.9% IVP, Drug Form: Active 2017 [facility] INJ, Dosing Weight 83.636, kg, PRN, PRN Line Flush, Start date: 12/12/17 16:13:00 CDT, Duration: 1 day, Stop date: 12/13/17 16:12:00 CDTNotes: (Same as: BD Posiflush) Seroquel 400 mg, 1 tab, Inactive Route: PO, Drug 2017 [facility] form: TAB, Bedtime, Dosing Weight 90, kg, [...] 1 tab, Inactive Route: PO, Drug 2017 [facility] form: TAB, BID, Dosing Weight 90, kg, Start date: 12/01/17 9:00:00 CDT, Duration: 30 day, Stop date: 12/30/17 21:00:00 CDTNotes: (Same as: Prinivil, Zestril) Nexium 40 mg, Route: Inactive PO, Daily, 2017 [facility] Dosing Weight 90, kg, Start date: 12/01/17 9:00:00 CDT, Duration: 30 day, Stop date: 12/30/17 9:00:00 CDT Buspar 15 mg, 3 tab, Inactive Route: PO, Drug 2017 [facility] form: TAB, BID, Dosing Weight 90, kg, [...] IV, Drug Inactive (ANES) form: INJ, 2017 [facility] ONCE, Stop date: 11/30/17 14:32:00 CDT neostigmine Route: IV, Drug Inactive (ANES) form: INJ, 2017 [facility] ONCE, Stop date: 11/30/17 14:32:00 CDT ondansetron Route: IV, Drug Inactive (ANES) form: INJ, 2017 [facility] ONCE, Stop date: 11/30/17 14:32:00 CDT ePHEDrine [...] mL, No Longer Route: IVP, Active 2017 [facility] Drug form: INJ, ONCE, Dosing Weight 90, kg, PRN Nausea & Vomiting, Start date: 11/30/17 12:36:00 CDTNotes: (Same as: Liz) MEDICATION WASTE Product Size: 4 mg Product Wasted: ___ mg Naloxone 0.4 mg, 1 mL, No Longer Route: IVP, Active 2018 [facility] Drug form: INJ, Q2MIN, Dosing Weight 90, kg, PRN Narcotic Reversal, Start date: 11/30/17 12:36:00 CDT, Duration: 8 doses or times, Stop date: 12/01/17 0:00:00 CDTNotes: Same as Narcan Flumazenil 0.2 mg, 2 mL, No Longer Route: IVP, 2017 [facility] Drug form: INJ, PRN, Dosing Weight 90, kg, PRN Benzodiazepine Reversal, Initial dose, Start date: 11/30/17 12:36:00 CDT, Duration: 12 hr, Stop date: 12/01/17 0:35:00 CDTNotes: (Same as: Romazicon) Morphine 2 mg, 1 mL, No Longer Route: IVP, 2017 [facility] Drug form: INJ, Q5Min, Dosing Weight 90, kg, PRN Pain Score 4-6, Start date: 11/30/17 12:36:00 CDT, Duration: 5 doses or times, Stop date: 12/01/17 0:00:00 CDTNotes: (Same as:MORPhine Sulfate) Hydromorphone 0.5 mg, 0.5 mL, No Longer Route: IV, 2017 [facility] Drug form: INJ, Q5Min, Dosing Weight 90, kg, PRN Pain Score 7-10, Start date: 11/30/17 12:36:00 CDT, Duration: 4 doses or times, Stop date: 12/01/17 0:00:00 CDTNotes: Same as: Dilaudid Hydralazine 10 mg, 0.5 mL, No Longer Route: IVP, 2017 [facility] Drug form: INJ, Q20Min, Dosing Weight 90, kg, PRN Elevated BP, Start date: 11/30/17 12:36:00 CDT, Duration: 2 doses or times, Stop date: 12/01/17 0:00:00 CDTNotes: (Same as: Apresoline) Push over 5 minutes Metoprolol 1 mg, 1 mL, No Longer Route: IVP, 2017 [facility] Drug form: INJ, Q5Min, Dosing Weight 90, kg, PRN Other -See Comment, Start date: 11/30/17 12:36:00 CDT, Duration: 5 doses or times, Stop date: 12/01/17 0:00:00 CDTNotes: (Same as: Lopressor) Push over 2 minutes Calcium Chloride 1,000 mL, Rate: No Longer 0.0014 MEQ/ML / 25 ml/hr, Active 2017 [facility] Potassium Infuse over: 40 Chloride 0.004 hr, Route: IV, MEQ/ML / Sodium Dosing Weight Chloride 0.103 90 kg, Total MEQ/ML / Sodium Volume: 1,000, Lactate 0.028 Start date: MEQ/ML 11/30/17 Injectable 12:33:00 CDT, Solution Stop date: 12/01/17 9:57:00 CDT, 2.12, m2 Lactated Ringers 1,000 mL, Rate: No Longer IV 1,000 mL 40 ml/hr, Active 2017 [facility] Infuse over: 25 hr, Route: IV, Dosing Weight 90 kg, Total Volume: 1,000, Start date: 11/30/17 12:22:00 CDT, Stop date: 12/01/17 9:57:00 CDT, 2.12, m2 Pepcid 20 mg, 2 mL, No Longer Route: IVP, Active 2017 [facility] Drug form: INJ, ONCE, Dosing Weight 90, kg, Start date: 11/29/17 23:09:00 CDT, Stop date: 11/29/17 23:09:00 CDTNotes: (Same as: Pepcid) Can be dilute in 5-10cc NS IVP: Slow IV push over at least 2 minutes. Buspar 15 mg, PO, Active Daily, 0 2017 Refill(s) lisinopril 5 mg 5 mg=1 tab, PO, No Longer oral tablet Daily, # 30 Active 2017 [facility] tab, 0 Refill(s) Aspirin 324 mg, 4 tab, Inactive Route: CHEW, 2017 [facility] Drug form: CHEWTAB, ONCE, Dosing Weight 90.909, kg, Start date: 11/29/17 17:16:00 CDT, Stop date: 11/29/17 17:16:00 CDTNotes: Take with food. cefepime 1 gm, Route: No Longer IVPB, [id number], Active 2017 [facility] Dosing Weight 90.909, kg, (CrCl >/=50 ml/min), Start date: 11/29/17 17:00:00 CDT, Duration: 30 day, Stop date: 12/29/17 5:00:00 CDT, ABX Indication: Intra-abdominal InfectionNotes: (Same As: Maxipime) MEDICATION WASTE Product Size: 1000 mg Product Wasted: ___ mg Bentyl 20 mg, 1 tab, No Longer Route: PO, Drug Active 2017 [facility] form: TAB, QID, Dosing Weight 90.909, kg, Start date: 11/29/17 17:00:00 CDT, Duration: 30 day, Stop date: 12/29/17 13:00:00 CDTNotes: (Same as: Bentyl) Calcium 3 gm, 30 mL, No Longer Gluconate Route: IVPB2017 [facility] PRN, Dosing Weight 90.909, kg, PRN Abnormal Lab Result, For NON-ICU Patients Only., Start date: 11/29/17 16:06:00 CDT, Duration: 30 day, Stop date: 12/29/17 16:05:00 CDTNotes: WASTE: F/P - Sink; E - [employer] Trash Bin Magnesium Oxide 800 mg, 2 tab, No Longer Route: PO, Drug Active 2017 [facility] form: TAB, PRN, Dosing Weight 90.909, kg, PRN Abnormal Lab Result, For NON-ICU Patients Only., Start date: 11/29/17 16:06:00 CDT, Duration: 30 day, Stop date: 12/29/17 16:05:00 CDTNotes: (Same as: Mag-Ox 400) Magnesium oxide [id number] elemental magnesium Dose=____mg magnesium oxide (___mg elemental magnesium) Magnesium 2 gm, 50 mL, No Longer Sulfate Route: IVPB, 2017 [facility] Drug form: INJ, PRN, Dosing Weight 90.909, kg, PRN Abnormal Lab Result, For NON-ICU Patients Only., Start date: 11/29/17 16:06:00 CDT, Duration: 30 day, Stop date: 12/29/17 16:05:00 CDTNotes: WASTE: F/P - Sink; E - [employer] Trash Bin Potassium 10 mEq, 100 mL, No Longer Chloride Route: IVPB, 2017 [facility] Drug form: INJ, PRN, Dosing Weight 90.909, kg, PRN Abnormal Lab Result, For NON-ICU Patients Only, Start date: 11/29/17 16:06:00 CDT, Duration: 30 day, Stop date: 12/29/17 16:05:00 CDTNotes: Infuse at a rate of 10 mEq/hr. (Same as: KCL) potassium 2 pkt, Route: No Longer phosphate-sodium PO, Drug Form: Active 2017 [facility] phosphate 250 PDR/REC, Dosing mg-280 mg-160 mg Weight 90.909, oral powder for kg, PRN, PRN reconstitution Abnormal Lab Result, For NON-ICU Patients Only, Start date: 11/29/17 16:06:00 CDT, Duration: 30 day, Stop date: 12/29/17 16:05:00 CDTNotes: (Same as: Phos-NaK) Each 1.5 gm pkt has 250mg phosphorous. Mix w/2.5oz water and stir. potassium 30 mmol, 10 mL, No Longer phosphate Route: IVPB, 2017 PRN, Dosing Weight 90.909, kg, PRN Abnormal [...] mmol, 10 mL, No Longer Route: IVPB, 2017 PRN, Dosing Weight 90.909, kg, PRN Abnormal [...] mL, No Longer Route: IVP, Active 2017 [facility] Drug form: INJ, Q4H, Dosing Weight 90.909, kg, PRN Nausea & Vomiting, Start date: 11/29/17 16:05:00 CDT, Duration: 30 day, Stop date: 12/29/17 16:04:00 CDTNotes: (Same as: Liz) MEDICATION WASTE Product Size: 4 mg Product Wasted: ___ mg Acetaminophen 650 mg, 20.3 No Longer mL, Route: PO, Active 2017 [facility] Drug form: LIQ, Q4H, Dosing Weight 90.909, kg, PRN Pain 1-3/Temp > 100.4 F, Start date: 11/29/17 16:05:00 CDT, Duration: 30 day, Stop date: 12/29/17 16:04:00 CDTNotes: Max acetaminophen=4 000mg/day (4 gm/day). (Same as: Tylenol) Alprazolam 0.25 0.25 mg, 1 tab, No Longer MG Oral Tablet Route: PO, Drug Active 2017 [facility] [Xanax] form: TAB, Q6H, Dosing Weight 90.909, [...] Longer Softgels Route: PO, Drug Active 2017 [facility] form: CHEWTAB, Q4H, Dosing Weight 90.909, kg, PRN Gas, Start date: 11/29/17 16:05:00 CDT, Duration: 30 day, Stop date: 12/29/17 16:04:00 CDTNotes: (Same as: Mylicon) Protonix 40 mg, 1 tab, No Longer Route: PO, Drug Active 2017 [facility] form: ECTAB, BID-Before Meals, Dosing Weight 90.909, kg, Priority: STAT, Start date: 11/29/17 16:03:00 CDT, Stop date: 12/29/17 7:30:00 CDTNotes: Tablet should not be chewed or crushed. (Same as: Protonix) Flagyl 500 mg, Route: Inactive IVPB, ONCE, 2017 [facility] Dosing Weight 90.909, kg, Priority: STAT, Start date: 11/29/17 13:16:00 CDT, Stop date: 11/29/17 13:16:00 CDT, ABX Indication: Intra-abdominal Infection Zofran 4 mg, Route: Inactive IVP, Drug form: 2017 [facility] INJ, ONCE, Dosing Weight 90.909, kg, Priority: STAT, Start date: 11/29/17 13:00:00 CDT, Stop date: 11/29/17 13:00:00 CDT Morphine 4 mg, Route: Inactive IVP, ONCE, 2017 [facility] Dosing Weight 90.909, kg, Priority: STAT, Start date: 11/29/17 13:00:00 CDT, Stop date: 11/29/17 13:00:00 CDT Saline Flush 10 mL, Route: No Longer 0.9% IVP, Drug Form: Active 2017 [facility] INJ, Dosing Weight 90.909, kg, PRN, PRN Line Flush, Start date: 11/29/17 11:07:00 CDT, Duration: 1 day, Stop date: 11/30/17 11:06:00 CDTNotes: (Same as: BD Posiflush) Lexapro 20 mg, 2 tab, No Longer Route: PO, Drug Active 2017 [facility] form: TAB, Daily, Dosing Weight 90.256, kg, Start date: 11/29/17 9:00:00 CDT, Duration: 30 day, Stop date: 12/28/17 9:00:00 CDTNotes: (Same as: Lexapro) Buspar 15 mg, 3 tab, No Longer Route: PO, Drug Active 2017 [facility] form: TAB, Daily, Dosing Weight 90.256, kg, Start date: 11/29/17 9:00:00 CDT, Duration: 30 day, Stop date: 12/28/17 9:00:00 CDTNotes: (Same As: BuSpar) quetiapine 400 mg, 4 tab, Inactive Route: PO, Drug 2017 [facility] form: TAB, QPM, Dosing Weight 90.256, kg, [...] mg, 3 mL, Inactive MG/ML Inhalant Route: [facility] Drug form: SOLN, TID, Dosing [...] 2 tab, Inactive Route: PO, Drug 2017 [facility] form: TAB, Daily, Dosing Weight 90.256, kg, Start date: 11/28/17 9:00:00 CDT, Duration: 30 day, Stop date: 12/27/17 9:00:00 CDTNotes: (Same as: SEROquel) Escitalopram 10 mg, 1 tab, Inactive Route: PO, Drug 2017 [facility] form: TAB, Daily, Dosing Weight 90.256, kg, Start date: 11/28/17 9:00:00 CDT, Duration: 30 day, Stop date: 12/27/17 9:00:00 CDTNotes: (Same as: Lexapro) cefepime 1 gm, Route: No Longer IVPB, [id number], Active 2017 [facility] Dosing Weight 92.443, kg, (CrCl >/=50 ml/min), Start date: 11/27/17 15:00:00 CDT, Duration: 30 day, Stop date: 12/26/17 15:00:00 CDT, ABX Indication: Intra-abdominal InfectionNotes: (Same As: Maxipime) MEDICATION WASTE Product Size: 1000 mg Product Wasted: ___ mg quetiapine 200 200 mg=1 tab, No Longer MG Oral Tablet PO, Daily, in Active 2017 [facility] [Seroquel] the morning, 0 Refill(s) quetiapine 400 400 mg=1 tab, No Longer MG Oral Tablet PO, Bedtime, 0 Active 2017 [facility] [Seroquel] Refill(s) Trazodone 100 mg, PO, Active Bedtime, PRN 2017 [facility] Sleep, 0 Refill(s) Nexium 40 mg, PO, No Longer Daily, 0 Active 2017 [facility] Refill(s) Lisinopril 5 mg, PO, No Longer Daily, 0 Active 2017 [facility] Refill(s) Eliquis 5 mg, PO, BID, No Longer 0 Refill(s) Active 2017 [facility] Buspar 15 mg, PO, No Longer Daily, 0 Active 2017 [facility] Refill(s) Escitalopram 20 20 mg=1 tab, No Longer MG Oral Tablet PO, Daily, 0 Active 2017 [facility] [Lexapro] Refill(s) Solu-Medrol 60 mg, Route: Inactive IVP, Drug form: 2017 [facility] INJ, ONCE, Dosing Weight 92.443, kg, Priority: STAT, Start date: 11/27/17 14:03:00 CDT, Stop date: 11/27/17 14:03:00 CDT Benadryl 25 mg, 1 tab, No Longer Route: PO, Drug Active 2017 [facility] form: TAB, Q8H, Dosing Weight 92.443, kg, PRN Allergic reaction, Priority: STAT, Start date: 11/27/17 14:03:00 CDT, Duration: 30 day, Stop date: 12/27/17 14:02:00 CDT Bentyl 20 mg, 1 tab, No Longer Route: PO, Drug Active 2017 [facility] form: TAB, QID, Dosing Weight 92.443, kg, Start date: 11/27/17 13:00:00 CDT, Duration: 30 day, Stop date: 12/27/17 9:00:00 CDTNotes: (Same as: Bentyl) Alprazolam 0.25 0.25 mg, 1 tab, No Longer MG Oral Tablet Route: PO, Drug Active 2017 [facility] [Xanax] form: TAB, Q6H, Dosing Weight 92.443, kg, PRN Anxiety, Start date: 11/27/17 12:37:00 CDT, Duration: 30 day, Stop date: 12/27/17 12:36:00 CDTNotes: With food or milk (Same as: Xanax) Gas-X Ultra 160 mg, 2 tab, No Longer Softgels Route: PO, Drug Active 2017 [facility] form: CHEWTAB, Q4H, Dosing Weight 92.443, kg, PRN Gas, Start date: 11/27/17 12:37:00 CDT, Duration: 30 day, Stop date: 12/27/17 12:36:00 CDTNotes: (Same as: Mylicon) Docusate Sodium 100 mg, 1 cap, No Longer 100 MG Oral Route: PO, Drug Active 2018 [facility] [Colace] form: CAP, BID, Dosing Weight 92.443, kg, PRN Constipation, Start date: 11/27/17 12:37:00 CDT, Duration: 30 day, Stop date: 12/27/17 12:36:00 CDTNotes: (Same as: Colace) (Do Not Crush) Hydralazine 10 mg, Route: No Longer IVP, Q6H, Active 2017 [facility] Dosing Weight 92.443, kg, PRN, Start date: [...] Not to exceed 400mg/day. (Same As: Ultram) Morphine 2 mg, 1 mL, No Longer Route: IVP, Active 2017 [facility] Drug form: INJ, Q4H, Dosing Weight 92.443, [...] mL, No Longer Route: IVP, Active 2017 [facility] Drug form: INJ, Q4H, Dosing Weight 92.443, kg, PRN Nausea & Vomiting, Start date: 11/27/17 12:37:00 CDT, Duration: 30 day, Stop date: 12/27/17 12:36:00 CDTNotes: (Same as: Liz) MEDICATION WASTE Product Size: 4 mg Product Wasted: ___ mg Acetaminophen 650 mg, 20.3 No Longer mL, Route: PO, Active 2017 [facility] Drug form: LIQ, Q4H, Dosing Weight 92.443, kg, PRN Pain 1-3/Temp > 100.4 F, Start date: 11/27/17 12:37:00 CDT, Duration: 30 day, Stop date: 12/27/17 12:36:00 CDTNotes: Max acetaminophen=4 000mg/day (4 gm/day). (Same as: Tylenol) Protonix 40 mg, Route: No Longer IVP, Drug form: Active 2017 [facility] INJ, BID, Dosing Weight 92.443, kg, Patient is NPO, Priority: STAT, Start date: 11/27/17 12:35:00 CDT, Duration: 30 day, Stop date: 12/27/17 9:00:00 CDTNotes: For IV push reconstitute with 10 ml 0.9% sodium chloride and push over 2 minutes. (Same as: Protonix) Levaquin 500 mg, 100 mL, Inactive Route: IVPB2017 [facility] Drug form: SOLN, [id number], Dosing Weight 92.443, kg, Priority: STAT, Start date: 11/27/17 12:35:00 CDT, Duration: 14 day, Stop date: 12/07/17 21:00:00 CDT, ABX Indication: Intra-abdominal InfectionNotes: (Same as:Levaquin) Flagyl 500 mg, 100 mL, Inactive Route: IVPB2017 [facility] Drug form: INJ, ONCE, Dosing Weight 92.443, kg, Priority: STAT, Start date: 11/27/17 12:30:00 CDT, Stop date: 11/27/17 12:30:00 CDT, ABX Indication: Intra-abdominal InfectionNotes: (Same as: Flagyl) Avoid alcohol. Cipro 400 mg, 200 mL, Inactive Route: IVPB, 2017 [facility] Drug form: INJ, ONCE, Dosing Weight 92.443, kg, Priority: STAT, Start date: 11/27/17 12:30:00 CDT, Stop date: 11/27/17 12:30:00 CDT, ABX Indication: Intra-abdominal InfectionNotes: Do not refrigerate Morphine 4 mg, Route: Inactive IVP, ONCE, 2017 [facility] Dosing Weight 92.443, kg, Priority: STAT, Start date: 11/27/17 11:33:00 CDT, Stop date: 11/27/17 11:33:00 CDT Visipaque 320 100 mL, Route: Inactive mg/mL injectable IVP, Dosing 2017 [facility] solution Weight 92.443, kg, ONCALL, GFR Zofran 4 mg, Route: Inactive IVP, Drug form: 2017 [facility] INJ, ONCE, Dosing Weight 92.443, kg, Priority: STAT, Start date: 11/27/17 6:21:00 CDT, Stop date: 11/27/17 6:21:00 CDT Morphine 4 mg, Route: Inactive IVP, ONCE, 2017 [facility] Dosing Weight 92.443, kg, Priority: STAT, Start date: 11/27/17 6:21:00 CDT, Stop date: 11/27/17 6:21:00 CDT Sodium Chloride 1,000 mL, 1000 Inactive 0.9% (Bolus) IV ml/hr, Infuse 2017 [facility] Over: 1 hr, Route: IV, 1,000, Drug form: INJ, ONCE, Priority: STAT, Dosing Weight 92.443 kg, Start date: 11/27/17 3:53:00 CDT, Stop date: 11/27/17 3:53:00 CDT Trazodone 100 mg, 1 tab, No Longer Route: PO, Drug Active 2017 [facility] form: TAB, Bedtime, Dosing Weight 90.256, kg, Start date: 11/27/17 0:07:00 CDT, Duration: 30 day, Stop date: 12/26/17 21:00:00 CDTNotes: (Same As: Nella) Apixaban TWICE DAILY Active [facility] 2017 [facility] Cyanocobalamin DAILY Active (Vitamin B-12) 2017 [facility] Ferrous Sulfate TWICE DAILY Active 2017 [facility] Apixaban TWICE DAILY Active 2017 [facility] Buspirone Hcl TWICE DAILY Active 2017 [facility] Esomeprazole Mag DAILY Active . Trihydrate 2017 [facility] [place] Escitalopram TWICE DAILY Active 2017 [facility] Dabigatran TWICE DAILY Active . Etexilate 2017 [facility] [place] Lisinopril DAILY Active 2018 [facility] Quetiapine DAILY Active 2017 [facility] Trazodone Hcl TWICE DAILY Active 2017 [facility] Tramadol Hcl Q6H PRN For Active . Pain 2018 [facility] {42 (rivaroxaban [...]
--- OUTSIDE RECORDS SUMMARY | 2018-09-20 03:47 | XMS REPORT ---
[...] Start End Date Status Dosage Date Lisinopril [facility] [id number] 5 MG Orally Once Active 1 tablet a day Nexium [facility] [id number] 40 MG Orally Once Active 1 capsule a day Results No Known Results Summary Purpose eClinicalWorks Submission
--- OUTSIDE RECORDS SUMMARY | 2018-09-20 03:48 | XMS REPORT ---
:1965 [facility] Address [address] [place] [address] Care Team Providers Name Role Phone Unavailable [...] AVOIDED DUE TO POSSIBLE HEPARINCONTAMINATION COMPREHENSIVE METABOLIC [id number] 07:22:00 Test Item Value Reference Range Comments [...] <50 MG 1 NORMAL code=LIPINDEX) Index/DL URINALYSIS [id number] 02:49:00 Test Item Value Reference Range Comments [...] #RBC/HPF 0-3 - CT ABD PELVIS W/O [id number] 20:06:00 Patient Name: MANDY CAZARES Unit No: [id number] EXAMS: CPT CODE: [id number] CT ABD PELVIS W/O CONT 25607 Location: T 18 CT of the abdomen [...] are clear. FLY Chawla NAME: MANDY CAZARES [address] [place] [address] PHYS: Paula Vera [place] [address] : 1965 AGE: 52 SEX: M LOC: B.ERS PHONE #: [phone] EXAM DATE: 07/21/2018 STATUS: REG ER FAX #: [phone] RAD #: D/C DT PAGE 1 Signed Report (CONTINUED) Patient Name: MANDY CAZARES Unit No: [id number] EXAMS: CPT CODE: [id number] CT ABD PELVIS W/O CONT 44851 <Continued> The pelvic contents are unremarkable without [...] (2005) [email or web address] FLY Chawla NAME: MANDY CAZARES [address] [place] [address] PHYS: Paula Vera [place] [address] : 1965 AGE: 52 SEX: M LOC: B.ERS PHONE #: [phone] EXAM DATE: 07/21/2018 STATUS: REG ER FAX #: RAD #: D/C DT PAGE 2 Signed Report Patient Name: MANDY CAZARES Unit No: [id number] EXAMS: CPT CODE: [id number] CT ABD PELVIS W/O CONT 99997 < Continued> Orig Print D/T: S: 07/21/2018 (2008) [facility] [place] NAME: MANDY CAZARES [address] [place] [address] Blvd PHYS: Paula Vera NP [place], [place] [address] : 1965 AGE: 52 SEX: M LOC: ELVIA PHONE #: [phone] EXAM DATE: 07/21/2018STATUS: REG ER FAX #: [phone] RAD # : D/C DT PAGE 3 Signed ReportCOMPREHENSIVE METABOLIC [id number] 17:37:00 Test Item Value Reference Range Comments [...] NORMAL <50 MG 1 NORMAL code=LIPINDEX) Index/DL [id number] 17:37:00 Test Item Value Reference Range Comments LIPASE (test code=LIP) 121 Unit/L 114-286 [id number] 17:37:00 Test Item Value Reference Range Comments TROPONIN-I (test < 0.015 NG/ML 0.000-0.045 An elevated troponin value alone is code=TROPI) not sufficient todiagnose a myocardial infarction. Rather, the patient'sclinical presentation (history, physical exam) and ECGshould be used in conjunction with troponin in thediagnostic evaluation of suspected myocardial infarction. Aserial sampling protocol is recommended to facilitate theidentification of temporal changes in troponin levelscharacteristic of MA. CBC W/MANUAL [id number] 17:35:00 Test Item Value Reference Range Comments [...] (test code=NRBC#) 0.00 K/mm3 0.00-0.05 COMPREHENSIVE METABOLIC [id number] 17:33:00 Test Item Value Reference Range Comments [...] NORMAL <50 MG 1 NORMAL code=LIPINDEX) Index/DL [id number] 17:33:00 Test Item Value Reference Range Comments LIPASE (test code=LIP) 121 Unit/L 114-286 [id number] 17:33:00 Test Item Value Reference Range Comments TROPONIN-I (test code=TROPI) NG/ML 0.000-0.045 - CT ABD PELVIS W/O [id number] 15:38:00 Patient Name: MANDY CAZARES Unit No: [id number] EXAMS: CPT CODE: [id number] CT ABD PELVIS W/O CONT 63870 Site ID: [id number] CLINICAL HISTORY: Abdominal pain, [...] DLP: 596.61 Trnscrpt : 06/23/2018 (1538) [id number] [facility] [place] NAME: MANDY CAZARES [address] [place] [address] Bl PHYS: Marge [place], [place] [address] : 1965 AGE: 52 SEX: M LOC: B.ERS PHONE #: [phone] EXAM DATE: 06/23/2018 STATUS: REG ER FAX #: [phone] RAD #: D/C DT PAGE 1 Signed Report Patient Name: MANDY CAZARES Unit No: [id number] EXAMS: CPT CODE: [id number] CT ABD PELVIS W/O CONT 70672 <Continued&gt ; Orig Print D/T: S: 06/23/2018 (1541) LUIS MGerry [place] NAME: MANDY CAZARES [address] [place] [address] Blvd PHYS: MARY.Regi - Marge [place], [place] [address] : 1965 AGE: 52 SEX: M LOC: ELIVA PHONE #: [phone] EXAM DATE : 06/23/2018 STATUS: REG ER FAX #: [phone] RAD #: D/C DT PAGE 2 Signed ReportCOMPREHENSIVE METABOLIC [id number] 15:10:00 Test Item Value Reference Range Comments [...] NORMAL <50 MG 1 NORMAL code=LIPINDEX) Index/DL [id number] 15:10:00 Test Item Value Reference Range Comments LIPASE (test code=LIP) 134 Unit/L 114-286 CBC W/AUTO [id number] 14:51:00 Test Item Value Reference Range Comments [...] # (test code=NRBC#) 0.00 K/mm3 0.00-0.05 URINALYSIS [id number] 14:14:00 Test Item Value Reference Range Comments [...] /LPF NONE UA RFLX MICR CULT IF [id number] 01:11:00 Test Item Value Reference Range Comments [...] Indication for Culture: OtherOther Indication: FLANK PAINPROTHROMBIN [id number] 01:10:00 Test Item Value Reference Range Comments [...] with Food and Drug Administrationrecommendations. THROMBOPLASTIN TIME [id number] 01:10:00 Test Item Value Reference Range Comments THROMBOPLASTIN TIME PARTIAL 24.5 SECONDS 23.4-37.0 Therapeutic Range for (test code=PTT) Heparin EFFECTIVE 09/21/12 Heparin IU/mL aPTT Seconds0.3 64.30.7 88.8 CBC W/AUTO [id number] 01:01:00 Test Item Value Reference Range Comments [...] 3/uL 0.0-0.1 - CT ABD PELVIS W/O [id number] 00:23:00 FAX: Josr Sanchez NP [phone] [place]: St: PRE Name: [facility]NMANDY Thornton [facility] [place] : 1965 Age/S: 52/M [address] Unit: [id number] Loc: [place] [address] Phys: Josr Sanchez NP Acct: [id number] Dis Date: Status: PRE ER PHONE #: [phone] Exam Date: 04/20/2018 0005 FAX #: [phone] Reason: BILATERAL FLANK PAIN EXAMS: CPT CODE: [id number] CT ABD PELVIS W/O CONT 17030 EXAM: CT ABDOMEN AND PELVIS WITHOUT CONTRAST. [...] Signed Report (CONTINUED) FAX: Josr Sanchez NP [phone] [place]: St: PRE Name: MNADY CAZARES [facility] : 1965 Age/S: 52/M [address] Unit: [id number] Loc: [place] [address] Phys: Josr Sanchez NP Acct: [id number] Dis Date : Status: PRE ER PHONE #: [phone] Exam Date: 04/20/2018 0005 FAX #:[phone] Reason: BILATERAL FLANK PAIN EXAMS: CPT CODE: [id number] CT ABD PELVIS W/O CONT 50690 <Continued> adjustment of the mA and or kV according to patient size and/or use of iterative reconstruction technique. at 0023 Reported and signed by: Jill Keating MD CC: Josr Sanchez NP Technologist: Yadira Villafana Trnscrd Dt/Tm: 04/20/2018 (0023) 16 Orig Print D/T: S : 04/20/2018 (0026 PAGE 2 Signed Report- CT ABD PELVIS [id number] 14:41:00 Patient Name: MANDY CAZARES Unit No: [id number] EXAMS: CPT CODE: [id number] CT ABD PELVIS W/CONT 14244 Site ID: [id number] CLINICAL HISTORY: Abdominal and [...] CTDI: 11.97 DLP: 668.50 Trnscrpt : 04/06/2018 (3041) [id number] [facility] JONATAN Chawla NAME: MANDY CAZARES [address] [place] [address] PHYS: [place]on [place] [address] : 1965 AGE: 52 SEX: M LOC: Titus.ERS PHONE #: [phone] EXAM DATE: 04/06/2018 STATUS: REG ER FAX #: [phone] RAD # : D/C DT PAGE 1 Signed Report Patient Name: MANDY CAZARES Unit No: [id number] EXAMS: CPT CODE: [id number] CT ABD PELVIS W /CONT 17141 <Continued> Orig Print D/T: S: 04/06/2018 ( 1441) [facility] JONATAN Chawla NAME: DEBOR[address] PHYS: Sheron Mills MD [place] [address] : 1965 AGE: 52 SEX: M LOC: B.ERS PHONE #: [phone] EXAM DATE: 04/06/2018 STATUS: REG ER FAX #: [phone] RAD #: D/C DT PAGE 2 Signed ReportURINALYSIS [id number] 14:23:00 Test Item Value Reference Range Comments [...] (test code=MUCU) RARE /LPF NONE HEPATIC FUNCTION [id number] 14:06:00 Test Item Value Reference Range Comments [...] 1 NORMAL <50 MG Index/DL 1 NORMAL [id number] 14:06:00 Test Item Value Reference Range Comments LIPASE (test code=LIP) 271 Unit/L 114-286 [id number] 14:06:00 Test Item Value Reference Range Comments TROPONIN-I (test < 0.015 NG/ML 0.000-0.045 An elevated troponin value alone is code=TROPI) not sufficient todiagnose a myocardial infarction. Rather, the patient'sclinical presentation (history, physical exam) and ECGshould be used in conjunction with troponin in thediagnostic evaluation of suspected myocardial infarction. Aserial sampling protocol is recommended to facilitate theidentification of temporal changes in troponin levelscharacteristic of MA. CBC W/O [id number] 13:47:00 Test Item Value Reference Range Comments [...] (test code=MPV) 10.0 fL 7.6-10.4 CHEMISTRY 7 [id number] 13:39:00 Test Item Value Reference Range Comments [...] POC (test code=GFRBED) 36 56-130 CHEMISTRY 7 [id number] 13:39:00 Test Item Value Reference Range Comments [...] 56-130 (test code=GFRBED) - XR CHEST 1 [id number] 13:27:00 FAX: Sheron Garcia MD [phone] [place]: E St: PRE Patient Name: MANDY CAZARES Unit No: [id number] EXAMS: CPT CODE : [id number] XR CHEST 1 V 59880 - XR CHEST 1 V INDICATION:Abdominal pain, vomiting, headache LOCATION: T18 Partial inspiration. The lungs are clear. The cardiomediastinal silhouette is within normal limits. Old left rib fractures noted. IMPRESSION: Partial inspiration. No active disease. at 1327 Reported and signed by: Bhavin Valencia D.O. CC: Sheron Couch MD Dictated Date/Time: 04/06/2018 (3269)Technologist: Jcarlos Merlos Transcribed Date/Time: 04/06/2018 (8756) By: Lyle Orig Print D/T: S: 04/06/2018 (4323) LUIS M Chawla NAME: ADRIANNEYANAHillary[address] PHYS: TARIK.03 - Sheron Couch [place], [place] [address] : 1965 AGE: 52 SEX: M LOC: B.ERS PHONE #: [phone] EXAM DATE: 04/06/2018 STATUS: PRE ER FAX #: [phone] RAD NO: DC Dt: PAGE 1 Signed Report
[2018-09-20 04:21] LABS: Absolute Lymphocytes (CBC) 4.1 K/uL (0.7-4.9); Basophils % 0.3 % (0-1.3); Eosinophils % 3.4 % (0-4.4); Lymphocytes % 36.8 % (15.3-44.8); MPV 7.3 fL (7.6-11.3); Monocytes % 6.4 % (3.3-12.3); RBC Red Blood Cell Count 3.96 M/uL (4.33-5.43)
[2018-09-20] MEDS ORDERED: NA CHLORIDE 0.9% 1,000 ML ONE (04:31)
[2018-09-20] MEDS ORDERED: ONDANSETRON 4 MG/2 ML VIAL ONE (04:31)
[2018-09-20 04:39] LABS: ALT/SGPT 23 U/L (12-78); AST/SGOT 16 U/L (15-37); Albumin 3.5 g/dL (3.4-5.0); Alkaline Phosphatase 134 U/L (45-117); BUN Blood Urea Nitrogen 9 mg/dL (7-18); Bicarbonate 24 mmol/L (21-32); Bilirubin Direct < 0.1 mg/dL (0-0.2); Bilirubin Total 0.2 mg/dL (0.2-1.0); Glucose Level 125 mg/dL (74-106); Lipase 164 U/L (73-393); Potassium 3.1 mmol/L (3.5-5.1); Protein, Total 6.6 g/dL (6.4-8.2); Sodium Level 136 mmol/L (136-145)
--- NOTE | 2018-09-20 06:49 | EDPHYS ---
Physician Documentation [facility] Name: Jeovany Buckley Age: 52 yrs Sex: Male : 1965 Arrival Date: 09/20/2018 Time: 03:32 Bed 15 Private MD: ED Physician Ciro Delgado HPI: 09/20 03:52 This 52 yrs old Male presents to ER via Ambulatory with complaints of rn Constipation, Abdominal Pain. 03:52 The patient presents with abdominal pain in the lower abdomen. Onset: The rn symptoms/episode began/occurred at an unknown time. The symptoms do not radiate. Associated signs and symptoms: Pertinent positives: nausea and vomiting, constipation, Pertinent negatives: fever, shortness of breath. The symptoms are described as achy. Modifying factors: The symptoms are alleviated by nothing, the symptoms are aggravated by nothing. Severity of pain: At its worst the pain was mild in the emergency department the pain is unchanged. The patient has experienced a previous episode. Reports no BM for 4 days, + nausea and vomiting, not sure if abdomen distended. Reports happened once before 2 months ago and told had blockage, did not require surgery, states just given medicine and got better. . Historical: - Allergies: 03:58 Aspirin; jd3 03:58 Sulfa (Sulfonamide Antibiotics); jd3 03:58 PENICILLINS; jd3 - Home Meds: 03:58 buspirone 10 mg Oral tab 1 tab 2 times per day [Active]; Lexapro 20 mg Oral tab 1 tab jd3 once daily [Active]; lisinopril 5 mg Oral tab 1 tab once daily [Active]; Nexium 40 mg Oral cpDR 1 cap once daily [Active]; Seroquel 400 mg Oral tab 1 tab 2 times per day [Active]; Tramadol Oral [Active]; sucralfate Oral [Active]; - PMHx: 03:58 Bipolar disorder; Hypertension; liver damage; Kaveh's Disease; Renal Disease; DVT; jd3 RLE; - PSHx: 03:58 Cholecystectomy; jd3 - Immunization history:: Adult Immunizations up to date. - Social history:: Smoking status: Patient uses tobacco products, denies chronic smoking, but will smoke occasionally. - Family history:: not pertinent. - Ebola Screening: : Patient negative for fever greater than or equal to 101.5 degrees Fahrenheit, and additional compatible Ebola Virus Disease symptoms. - Hospitalizations: : No recent hospitalization is reported. ROS: 03:52 Constitutional: Negative for fever, chills, and weight loss, Eyes: Negative for injury, rn pain, redness, and discharge, Neck: Negative for injury, pain, and swelling, Cardiovascular: Negative for chest pain, palpitations, and edema, Respiratory: Negative for shortness of breath, cough, wheezing, and pleuritic chest pain, Abdomen/GI: Negative for diarrhea Back: Negative for injury and pain, MS/Extremity: Negative for injury and deformity, Skin: Negative for injury, rash, and discoloration, Neuro: Negative for headache, weakness, numbness, tingling, and seizure. Exam: 03:52 Constitutional: This is a well developed, well nourished patient who is awake, alert, rn and in no acute distress. Head/Face: Normocephalic, atraumatic. ENT: MMM Abdomen/GI: soft, non-tender, non-distended Skin: Warm, dry MS/ Extremity: Pulses equal, no cyanosis. Vital Signs: 03:49 BP 113 / 76; Pulse 88; Resp 18 S; Temp 98.5(O); Pulse Ox 97% on R/A; Weight 81.65 kg jd3 (R); Height 5 ft. 10 in. (177.80 cm) (R); Pain 9/10; 05:04 BP 111 / 75; Pulse 77; Resp 17 S; Pulse Ox 98% on R/A; Pain 8/10; jd3 06:05 BP 106 / 71; Pulse 76; Resp 16 S; Pulse Ox 99% on R/A; jd3 03:49 Body Mass Index 25.83 (81.65 kg, 177.80 cm) jd3 MDM: 03:47 Patient medically screened. rn 06:44 Differential diagnosis: bowel obstruction, diverticulitis, non-specific abd pain, rn colitis. Data reviewed: vital signs, nurses notes, lab test result(s), radiologic studies, CT scan, and as a result, I will discharge patient. Counseling: I had a detailed discussion with the patient and/or guardian regarding: the historical points, exam findings, and any diagnostic results supporting the discharge/admit diagnosis, lab results, radiology results, the need for outpatient follow up, to return to the emergency department if symptoms worsen or persist or if there are any questions or concerns that arise at home. Special discussion: Based on the patient's Hx, exam, and Dx evaluation, there is no indication for emergent surgery or inpatient Tx. It is understood by the patient/guardian that if the Sx's persist or worsen they need to return immediately for re-evaluation. I discussed with the patient/guardian in detail that at this point there is no indication for admission to the hospital. It is understood, however, that if the symptoms persist or worsen the patient needs to return immediately for re-evaluation. ED course: Pt without bowel obstruction or impaction, + mild ileitis, will put on abx and return precautions given.. 09/20 03:51 Order name: Basic Metabolic Panel; Complete Time: 04:40 rn 09/20 03:51 Order name: CBC with Diff; Complete Time: 04:40 rn 09/20 03:51 Order name: Creatinine for Radiology; Complete Time: 04:40 rn 09/20 03:51 Order name: Hepatic Function; Complete Time: 04:40 rn 09/20 03:51 Order name: Lipase; Complete Time: 04:40 rn 09/20 03:51 Order name: IV Saline Lock; Complete Time: 04:15 rn 09/20 03:51 Order name: Labs collected and sent; Complete Time: 04:15 rn 09/20 05:42 Order name: Abdomen EDMS Administered Medications: 04:20 Drug: NS 0.9% 1000 ml Route: IV; Rate: 1000 ml; Site: right forearm; jd3 06:56 Follow up: Response: No adverse reaction; IV Status: Completed infusion; IV Intake: jd3 1000ml 04:21 Drug: Zofran 4 mg Route: IVP; Site: right forearm; jd3 05:04 Follow up: Response: No adverse reaction; Nausea is decreased jd3 06:56 Drug: Cipro 500 mg Route: PO; jd3 07:02 Follow up: Response: Medication administered at discharge. jd3 06:56 Drug: Flagyl 500 mg Route: PO; jd3 07:02 Follow up: Response: Medication administered at discharge. jd3 Disposition: 09/20/18 06:48 Discharged to Home. Impression: Constipation, unspecified, Ileitis. - Condition is Stable. - Discharge Instructions: Constipation, Adult, Colitis. - Prescriptions for Zofran ODT 4 mg Oral tablet,disintegrating - place 1 tablet by TRANSLINGUAL route every 8 hours As needed; 20 tablet. Cipro 500 mg Oral Tablet - take 1 tablet by ORAL route every 12 hours for 10 days; 20 tablet. Flagyl 500 mg Oral Tablet - take 1 tablet by ORAL route every 8 hours for 10 days; 30 tablet. - Medication Reconciliation Form, Thank You Letter, Antibiotic Education, Prescription Opioid Use form. - Follow up: Private Physician; When: As needed; Reason: Recheck today's complaints, Re-evaluation by your physician. - Problem is new. - Symptoms have improved. Signatures: Dispatcher [employer] [facility] Ciro Delgado MD MD rn Davies, Jonathon, RN RN jd3 Corrections: (The following items were deleted from the chart) 05:43 03:53 Abdomen Pelvis W Con+CT.RAD.BRZ ordered. [facility] EDMI 07:07 06:48 09/20/2018 06:48 Discharged to Home. Impression: Constipation, unspecified; jd3 Ileitis. Condition is Stable. Forms are Medication Reconciliation Form, Thank You Letter, Antibiotic Education, Prescription Opioid Use. Follow up: Private Physician; When: As needed; Reason: Recheck today's complaints, Re-evaluation by your physician. Problem is new. Symptoms have improved. rn
--- NOTE | 2018-09-20 06:49 | ER ---
Nurse's Notes [facility] Name: Jeovany Buckley Age: 52 yrs Sex: Male : 1965 Arrival Date: 09/20/2018 Time: 03:32 Bed 15 Private MD: Diagnosis: Constipation, unspecified;Ileitis Presentation: 09/20 03:47 Presenting complaint: Patient states: "I have had a blockage in the past and I haven't jd3 gone to the restroom in 4 days. the last blockage I had was in July.". Transition of care: patient was not received from another setting of care. Onset of symptoms was September 16, 2018. Risk Assessment: Do you want to hurt yourself or someone else? Patient reports no desire to harm self or others. Initial Sepsis Screen: Does the patient meet any 2 criteria? No. Patient's initial sepsis screen is negative. Does the patient have a suspected source of infection? No. Patient's initial sepsis screen is negative. Care prior to arrival: None. 03:47 Method Of Arrival: Ambulatory jd3 03:47 Acuity: JED 3 jd3 Historical: - Allergies: 03:58 Aspirin; jd3 03:58 Sulfa (Sulfonamide Antibiotics); jd3 03:58 PENICILLINS; jd3 - Home Meds: 03:58 buspirone 10 mg Oral tab 1 tab 2 times per day [Active]; Lexapro 20 mg Oral tab 1 tab jd3 once daily [Active]; lisinopril 5 mg Oral tab 1 tab once daily [Active]; Nexium 40 mg Oral cpDR 1 cap once daily [Active]; Seroquel 400 mg Oral tab 1 tab 2 times per day [Active]; Tramadol Oral [Active]; sucralfate Oral [Active]; - PMHx: 03:58 Bipolar disorder; Hypertension; liver damage; [place]'s Disease; Renal Disease; DVT; jd3 RLE; - PSHx: 03:58 Cholecystectomy; jd3 - Immunization history:: Adult Immunizations up to date. - Social history:: Smoking status: Patient uses tobacco products, denies chronic smoking, but will smoke occasionally. - Family history:: not pertinent. - Ebola Screening: : Patient negative for fever greater than or equal to 101.5 degrees Fahrenheit, and additional compatible Ebola Virus Disease symptoms. - Hospitalizations: : No recent hospitalization is reported. Screenin:23 Abuse screen: Denies threats or abuse. Nutritional screening: No deficits noted. jd3 Tuberculosis screening: No symptoms or risk factors identified. Fall Risk IV access (20 points). Ambulatory Aid- None/Bed Rest/Nurse Assist (0 pts). Gait- Normal/Bed Rest/Wheelchair (0 pts) Mental Status- Oriented to own ability (0 pts). Total Segura Fall Scale indicates No Risk (0-24 pts). Assessment: 03:55 General: Appears in no apparent distress. uncomfortable, Behavior is calm, cooperative, jd3 appropriate for age. Pain: Complains of pain in right upper quadrant and left upper quadrant Quality of pain is described as aching, pressure, tender. Neuro: Level of Consciousness is awake, alert, obeys commands, Oriented to person, place, time, situation. Cardiovascular: Capillary refill < 3 seconds Patient's skin is warm and dry. Respiratory: Airway is patent Respiratory effort is even, unlabored, Respiratory pattern is regular, symmetrical. GI: Abdomen is round non-distended, Bowel sounds present X 4 quads. Abd is soft X 4 quads Abdomen is tender to palpation in right upper quadrant and left upper quadrant Reports upper abdominal pain, constipation. : No signs and/or symptoms were reported regarding the genitourinary system. EENT: No signs and/or symptoms were reported regarding the EENT system. Derm: Skin is intact, Skin is dry, Skin is normal, Skin temperature is warm. Musculoskeletal: Circulation, motion, and sensation intact. Range of motion: intact in all extremities. 04:10 Reassessment: CT notified of pt finishing PO contrast. jd3 05:03 Reassessment: Patient appears in no apparent distress at this time. No changes from jd3 previously documented assessment. Patient and/or family updated on plan of care and expected duration. Pain level reassessed. Patient is alert, oriented x 3, equal unlabored respirations, skin warm/dry/pink. awaiting CT scan. 06:04 Reassessment: Patient appears in no apparent distress at this time. Patient and/or jd3 family updated on plan of care and expected duration. Pain level reassessed. Patient is alert, oriented x 3, equal unlabored respirations, skin warm/dry/pink. awaiting CT results. pt resting in bed with eyes closed. even and unlabored respirations, no distress noted at this time. 07:05 Reassessment: Patient appears in no apparent distress at this time. Patient and/or jd3 family updated on plan of care and expected duration. Pain level reassessed. Patient is alert, oriented x 3, equal unlabored respirations, skin warm/dry/pink. pt reported understanding of discharge instruction. even and steady gait upon discharge. Vital Signs: 03:49 BP 113 / 76; Pulse 88; Resp 18 S; Temp 98.5(O); Pulse Ox 97% on R/A; Weight 81.65 kg jd3 (R); Height 5 ft. 10 in. (177.80 cm) (R); Pain 9/10; 05:04 BP 111 / 75; Pulse 77; Resp 17 S; Pulse Ox 98% on R/A; Pain 8/10; jd3 06:05 BP 106 / 71; Pulse 76; Resp 16 S; Pulse Ox 99% on R/A; jd3 03:49 Body Mass Index 25.83 (81.65 kg, 177.80 cm) jd3 ED Course: 03:32 Patient arrived in ED. ag3 03:47 Jairo Rm, RN is Primary Nurse. jd3 03:47 Ciro Delgado MD is Attending Physician. rn 03:49 Triage completed. jd3 03:50 Arm band placed on. jd3 04:12 Inserted saline lock: 22 gauge in right forearm, using aseptic technique. Blood jd3 collected. 04:23 Patient has correct armband on for positive identification. Bed in low position. Call jd3 light in reach. Side rails up X2. 06:06 Abdomen In Process Unspecified. EDMS 07:04 No provider procedures requiring assistance completed. IV discontinued, intact, jd3 bleeding controlled, No redness/swelling at site. Pressure dressing applied. Administered Medications: 04:20 Drug: NS 0.9% 1000 ml Route: IV; Rate: 1000 ml; Site: right forearm; jd3 06:56 Follow up: Response: No adverse reaction; IV Status: Completed infusion; IV Intake: jd3 1000ml 04:21 Drug: Zofran 4 mg Route: IVP; Site: right forearm; jd3 05:04 Follow up: Response: No adverse reaction; Nausea is decreased jd3 06:56 Drug: Cipro 500 mg Route: PO; jd3 07:02 Follow up: Response: Medication administered at discharge. jd3 06:56 Drug: Flagyl 500 mg Route: PO; jd3 07:02 Follow up: Response: Medication administered at discharge. jd3 Intake: 06:56 IV: 1000ml; Total: 1000ml. jd3 Outcome: 06:48 Discharge ordered by . rn 07:04 Discharged to home ambulatory. jd3 07:04 Condition: stable 07:04 Discharge instructions given to patient, Instructed on discharge instructions, follow up and referral plans. medication usage, Demonstrated understanding of instructions, follow-up care, medications, Prescriptions given X 3. 07:07 Patient left the ED. jd3 Signatures: Dispatcher [employer] EDMS Ciro Dlegado MD MD rn Davies, Jonathon, RN RN jd3 Gomez, Alice ag3
[2018-09-20] MEDS ORDERED: metroNIDAZOLE 500 MG TABLET ONE (07:09)
[2018-09-20] MEDS ORDERED: CIPROFLOXACIN HCL 500 MG TAB ONE (07:09)
--- NOTE | 2018-09-20 09:43 | RAD REPORT ---
EXAM DESCRIPTION: CT - Abdomen Pelvis Wo Contrast - 09/20/2018 6:42 am CLINICAL HISTORY: 52-year-old male who has not gone to the restroom in days, rule out obstruction, c onstipation TECHNIQUE: Axial CT imaging of the abdomen and pelvis was performed following the administration of oral contrast only. Sagittal and coronal reconstructed images were then performed. The CT study is performed according to ALARA (as low as reasonably achievable) or ALARA/IMAGE GENTLY, with automatic adjustment of mA and/or kV according to patient size. Performed on: 09/20/2018 at 5:53 AM COMPARISON: CT abdomen and pelvis performed on 08/25/2017. FINDINGS: Lung bases: The lung bases are clear. Liver: The liver is mildly enlarged and measures 18 cm in craniocaudal dimension. No focal hepatic ab normalities are appreciated on this unenhanced scan. Liver attenuation is within normal limits. Spleen: The spleen is normal is size, configuration and attenuation. No focal splenic abnormalities a re appreciated on this unenhanced scan. Gallbladder and bile duct: The gallbladder is surgically absent. There is no biliary ductal dilatat ion. Pancreas: The pancreas is grossly normal in size and configuration. Adrenal Glands: The adrenal glands are normal in size and configuration. Kidneys: The kidneys are normal in size and configuration. There is no evidence of hydronephrosis. Th ere is no evidence of nephrolithiasis. There is a stable 1.4 cm exophytic cyst arising from the poste rior cortex of the midpole of the left kidney. Stomach: The stomach is grossly normal. There is a moderate hiatal hernia. Bowel: The bowel gas pattern is non specific and non obstructive. There is mild bowel wall thickening involving the distal ileum. Appendix: The appendix is not clearly visualized on this examination. There is no CT evidence to sugg est acute appendicitis. Free air: There is no evidence of free air. Free fluid: There is no evidence of free fluid. Vasculature: The aorta is normal in caliber and contour. The inferior vena cava is grossly unremarkab le. Lymphadenopathy: No pathologic lymphadenopathy is identified. Bladder: The bladder is incompletely distended on this examination. Reproductive: The prostate gland is grossly within normal limits. Bones: No acute osseous abnormalities are identified. Soft tissues: No focal soft tissue abnormalities are identified. IMPRESSION: 1. No evidence of acute intra-abdominal or intrapelvic pathology. There does appear to b e mild nonspecific bowel wall thickening involving the distal ileum. 2. Mild hepatomegaly . 3. Moderate hiatal hernia. 4. Remote cholecystectomy. Electronically signed by: Cynthia Maciel DO 09/20/2018 6:36 AM CDT Due to temporary technical issues with the PACS/Fluency reporting system, reports are being signed by the in house radiologist as a courtesy to ensure prompt reporting. The interpreting radiologist is f ully responsible for the content of the report.
[2018-09-20 12:21] VITALS: TEMP 98.5
[2018-09-20 12:24] VITALS: BP 106/71; O2SAT 99
== END 2018-09-20 07:07 | disposition home or self-care (01) ==
LOC: ER 03:28
DX: K59.00 Constipation, unspecified (principal); K52.9 Noninfective gastroenteritis and colitis, unspecified; N28.9 Disorder of kidney and ureter, unspecified; I10 Essential (primary) hypertension; F31.9 Bipolar disorder, unspecified; Z72.0 Tobacco use; Z88.0 Allergy status to penicillin; Z88.2 Allergy status to sulfonamides; Z88.6 Allergy status to analgesic agent
CPT/HCPCS: 96361; 85025; 80048; 36415; 80076; 83690; 74176; 96374; 99284; J7030; J2405

== ENCOUNTER 2019-01-22 02:04 | Emergency (ER) | payer MEDICARE ==
[2019-01-22] MEDS ORDERED: NA CHLORIDE 0.9% 500 ML ONE (02:44)
[2019-01-22 03:37] LABS: Absolute Lymphocytes (CBC) 3.4 K/uL (0.7-4.9); Basophils % 0.4 % (0-1.3); Hematocrit 34.7 % (39.6-49.0); Lymphocytes % 39.5 % (15.3-44.8); MPV 7.9 fL (7.6-11.3); RBC Red Blood Cell Count 3.99 M/uL (4.33-5.43)
[2019-01-22 03:48] LABS: Albumin 3.5 g/dL (3.4-5.0); Bilirubin Direct 0.1 mg/dL (0-0.2); Bilirubin Total 0.3 mg/dL (0.2-1.0); Potassium 3.7 mmol/L (3.5-5.1); Protein, Total 6.4 g/dL (6.4-8.2)
--- NOTE | 2019-01-22 05:31 | EDPHYS ---
Physician Documentation [facility] Name: Jeovany Buckley Age: 53 yrs Sex: Male : 1965 Arrival Date: 01/22/2019 Time: 02:08 Bed 6 Private MD: ED Physician Yvon Robertson HPI: 01/22 02:45 This 53 yrs old Male presents to ER via Ambulatory with complaints of kdr Abdominal Pain, Diarrhea. 02:45 The patient presents to the emergency department with nausea, that is mild, vomiting, kdr that is intermittent, diarrhea, that is intermittent, abdominal pain, of the left upper quadrant, right lower quadrant and left lower quadrant, described as achy, crampy, intermittent, vague,\E\ waxing and waning. Onset: The symptoms/episode began/occurred The patient has diarrhea for a few days and blood (dark blood) since this last AM. Last month, he had an intestinal obstruction and was seen at [facility] then transferred to [facility] where he was an inpatient for about 10 days. He was o/w well until the last few days. Possible causes: unknown. The symptoms are aggravated by food , The symptoms are alleviated by nothing. Associated signs and symptoms: Pertinent positives: abdominal pain, diarrhea, GI bleeding, nausea, Pertinent negatives: belching, constipation, dysuria, fever, hematuria. Severity of symptoms: At their worst the symptoms were moderate in the emergency department the symptoms have improved mildly. The patient has experienced similar episodes in the past, several times. The patient has been recently seen by a physician:. Historical: - Allergies: 02:25 Aspirin; lp1 02:25 PENICILLINS; lp1 02:25 Sulfa (Sulfonamide Antibiotics); lp1 - Home Meds: 02:25 Seroquel 300 mg oral tab once daily [Active]; lisinopril 5 mg Oral tab 1 tab once daily lp1 [Active]; buspirone 15 mg oral tab daily [Active]; Lexapro 20 mg Oral tab 1 tab once daily [Active]; Zantac Oral once daily [Active]; - PMHx: 02:25 Bipolar disorder; DVT; RLE; Kaveh's Disease; Hypertension; liver damage; Renal lp1 Disease; - PSHx: 02:25 Cholecystectomy; lp1 - Immunization history:: Adult Immunizations up to date. - Social history:: Smoking status: Patient uses tobacco products, smokes one-half pack cigarettes per day. - Ebola Screening: : No symptoms or risks identified at this time. ROS: 02:45 Constitutional: Negative for fever, chills, and weight loss, Eyes: Negative for injury, kdr pain, redness, and discharge, ENT: Negative for injury, pain, and discharge, Neck: Negative for injury, pain, and swelling, Cardiovascular: Negative for chest pain, palpitations, and edema, Respiratory: Negative for shortness of breath, cough, wheezing, and pleuritic chest pain, Back: Negative for injury and pain, : Negative for injury, bleeding, discharge, and swelling, MS/Extremity: Negative for injury and deformity, Skin: Negative for injury, rash, and discoloration, Neuro: Negative for headache, weakness, numbness, tingling, and seizure activity. Psych: Negative for depression, anxiety, suicide ideation, homicidal ideation, and hallucinations, Allergy/Immunology: Negative for hives, rash, and allergies, Endocrine: Negative for neck swelling, polydipsia, polyuria, polyphagia, and marked weight changes, Hematologic/Lymphatic: Negative for swollen nodes, abnormal bleeding, and unusual bruising. 02:45 Abdomen/GI: Positive for abdominal pain, nausea, vomiting, and diarrhea, diarrhea, abdominal cramps, rectal bleeding. Exam: 02:45 Constitutional: This is a well developed, well nourished patient who is awake, alert, kdr and in no acute distress. Head/Face: Normocephalic, atraumatic. Eyes: Pupils equal round and reactive to light, extra-ocular motions intact. Lids and lashes normal. Conjunctiva and sclera are non-icteric and not injected. Cornea within normal limits. Periorbital areas with no swelling, redness, or edema. Neck: Trachea midline, no thyromegaly or masses palpated, and no cervical lymphadenopathy. Supple, full range of motion without nuchal rigidity, or vertebral point tenderness. No Meningismus. Chest/axilla: Normal chest wall appearance and motion. Nontender with no deformity. No lesions are appreciated. Cardiovascular: Regular rate and rhythm with a normal S1 and S2. No gallops, murmurs, or rubs. Normal PMI, no JVD. No pulse deficits. Respiratory: Lungs have equal breath sounds bilaterally, clear to auscultation and percussion. No rales, rhonchi or wheezes noted. No increased work of breathing, no retractions or nasal flaring. Back: No spinal tenderness. No costovertebral tenderness. Full range of motion. Skin: Warm, dry with normal turgor. Normal color with no rashes, no lesions, and no evidence of cellulitis. MS/ Extremity: Pulses equal, no cyanosis. Neurovascular intact. Full, normal range of motion. Neuro: Awake and alert, GCS 15, oriented to person, place, time, and situation. Cranial nerves II-XII grossly intact. Motor strength 5/5 in all extremities. Sensory grossly intact. Cerebellar exam normal. Normal gait. Psych: Awake, alert, with orientation to person, place and time. Behavior, mood, and affect are within normal limits. 02:45 Abdomen/GI: Inspection: abdomen appears normal, Bowel sounds: diminished, in all quadrants, Palpation: soft, mild abdominal tenderness, in all quadrants, mass, is not appreciated, rebound tenderness, is not appreciated. Vital Signs: 02:23 BP 113 / 85; Pulse 99; Resp 18; Temp 98.2; Pulse Ox 100% on R/A; Weight 83.91 kg; lp1 Height 5 ft. 10 in. (177.80 cm); Pain 8/10; 03:15 BP 103 / 79; Pulse 95; Resp 17; Pulse Ox 99% on R/A; rr5 05:00 BP 117 / 65; Pulse 87; Resp 18; Pulse Ox 100% on R/A; lp1 02:23 Body Mass Index 26.54 (83.91 kg, 177.80 cm) lp1 MDM: 02:45 Data reviewed: vital signs, nurses notes, lab test result(s), radiologic studies. kdr Counseling: I had a detailed discussion with the patient and/or guardian regarding: the historical points, exam findings, and any diagnostic results supporting the discharge/admit diagnosis, lab results, radiology results. 05:30 Patient medically screened. kdr 01/22 02:40 Order name: Basic Metabolic Panel; Complete Time: 04:35 kdr 01/22 02:40 Order name: CBC with Diff; Complete Time: 04:35 kdr 01/22 02:40 Order name: Creatinine for Radiology; Complete Time: 04:35 kdr 01/22 02:40 Order name: Hepatic Function; Complete Time: 04:35 [facility] 01/22 02:40 Order name: Lipase; Complete Time: 04:35 [facility] 01/22 02:40 Order name: IV Saline Lock; Complete Time: 02:58 [facility] 01/22 02:40 Order name: Labs collected and sent; Complete Time: 02:58 [facility] 01/22 03:52 Order name: Abdomen [facility] Administered Medications: 02:57 Drug: NS 0.9% 500 ml Route: IV; Rate: bolus; Site: right forearm; lp1 03:40 Follow up: IV Status: Completed infusion; IV Intake: 500ml lp1 Disposition: 01/22/19 05:30 Discharged to Home. Impression: Abdominal and pelvic pain, Diarrhea, unspecified. - Condition is Stable. - Discharge Instructions: Abdominal Pain, Adult, [id number], Diarrhea, Adult, [id number]. - Prescriptions for Bentyl 20 mg Oral Tablet - take 1 tablet by ORAL route every 6 hours As needed; 10 tablet. Pepcid 20 mg Oral Tablet - take 1 tablet by ORAL route every 12 hours for 5 days; 10 tablet. Lomotil 2.5- 0.025 mg Oral Tablet - take 2 tablets by ORAL route once daily As needed; 10 tablet. promethazine 25 mg Oral Tablet - take 1 tablet by ORAL route every 6 hours As needed; 12 tablet. - Medication Reconciliation Form, Thank You Letter form. - Follow up: Private Physician; When: 2 - 3 days; Reason: If symptoms return, Further diagnostic work-up, Recheck today's complaints, Continuance of care, Re-evaluation by your physician. - Problem is new. - Symptoms have improved. Signatures: Dispatcher [employer] [facility] Yvon Robertson MD MD kdr Erlinda Bishop, RN RN lp1 Corrections: (The following items were deleted from the chart) 03:52 02:45 Abdomen Pelvis W Con+CT.RAD.BRZ ordered. [facility] 05:48 05:30 01/22/2019 05:30 Discharged to Home. Impression: Abdominal and pelvic pain; lp1 Diarrhea, unspecified. Condition is Stable. Forms are Medication Reconciliation Form, Thank You Letter, Antibiotic Education, Prescription Opioid Use. Follow up: Private Physician; When: 2 - 3 days; Reason: If symptoms return, Further diagnostic work-up, Recheck today's complaints, Continuance of care, Re-evaluation by your physician. Problem is new. Symptoms have improved. kdr
--- NOTE | 2019-01-22 05:31 | ER ---
Nurse's Notes [facility] Name: Jeovany Buckley Age: 53 yrs Sex: Male : 1965 Arrival Date: 01/22/2019 Time: 02:08 Bed 6 Private MD: Diagnosis: Abdominal and pelvic pain;Diarrhea, unspecified Presentation: 01/22 02:20 Presenting complaint: Patient states: Generalized abdominal pain, states decreased lp1 appetite, nausea, vomiting x 2 days, x2 episodes of blood stools. Transition of care: patient was not received from another setting of care. Onset of symptoms was January 20, 2019. Risk Assessment: Do you want to hurt yourself or someone else? Patient reports no desire to harm self or others. Initial Sepsis Screen: Does the patient meet any 2 criteria? No. Patient's initial sepsis screen is negative. Does the patient have a suspected source of infection? No. Patient's initial sepsis screen is negative. Care prior to arrival: None. 02:20 Method Of Arrival: Ambulatory lp1 02:20 Acuity: JED 3 lp1 Historical: - Allergies: 02:25 Aspirin; lp1 02:25 PENICILLINS; lp1 02:25 Sulfa (Sulfonamide Antibiotics); lp1 - Home Meds: 02:25 Seroquel 300 mg oral tab once daily [Active]; lisinopril 5 mg Oral tab 1 tab once daily lp1 [Active]; buspirone 15 mg oral tab daily [Active]; Lexapro 20 mg Oral tab 1 tab once daily [Active]; Zantac Oral once daily [Active]; - PMHx: 02:25 Bipolar disorder; DVT; RLE; Av[place]'s Disease; Hypertension; liver damage; Renal lp1 Disease; - PSHx: 02:25 Cholecystectomy; lp1 - Immunization history:: Adult Immunizations up to date. - Social history:: Smoking status: Patient uses tobacco products, smokes one-half pack cigarettes per day. - Ebola Screening: : No symptoms or risks identified at this time. Screenin:25 Abuse screen: Denies threats or abuse. Denies injuries from another. Nutritional lp1 screening: No deficits noted. Tuberculosis screening: No symptoms or risk factors identified. Fall Risk None identified. Assessment: 02:25 General: Appears in no apparent distress. Behavior is calm, cooperative, appropriate lp1 for age. Pain: Complains of pain in right upper quadrant, left upper quadrant, right lower quadrant and left lower quadrant Pain currently is 8 out of 10 on a pain scale. Quality of pain is described as sharp, Is intermittent. Neuro: Level of Consciousness is awake, alert, obeys commands, Oriented to person, place, situation. Cardiovascular: Patient's skin is warm and dry. Respiratory: Respiratory effort is even, unlabored. GI: Abdomen is non-distended, Bowel sounds present X 4 quads. Abd is soft X 4 quads Reports bloody stool, intolerance of fluids, intolerance of food. : No signs and/or symptoms were reported regarding the genitourinary system. EENT: No signs and/or symptoms were reported regarding the EENT system. Derm: Skin is intact, Skin is dry, Skin is normal. Musculoskeletal: No deficits noted. 03:45 Reassessment: Patient appears in no apparent distress at this time. Patient is alert, rr5 oriented x 3, equal unlabored respirations, skin warm/dry/pink. no complaints made, resting eyes closed breathing spontaneously at room air. awaiting for result. 05:00 Reassessment: Patient appears in no apparent distress at this time. Patient and/or lp1 family updated on plan of care and expected duration. Pain level reassessed. Vital Signs: 02:23 BP 113 / 85; Pulse 99; Resp 18; Temp 98.2; Pulse Ox 100% on R/A; Weight 83.91 kg; lp1 Height 5 ft. 10 in. (177.80 cm); Pain 8/10; 03:15 BP 103 / 79; Pulse 95; Resp 17; Pulse Ox 99% on R/A; rr5 05:00 BP 117 / 65; Pulse 87; Resp 18; Pulse Ox 100% on R/A; lp1 02:23 Body Mass Index 26.54 (83.91 kg, 177.80 cm) lp1 ED Course: 02:08 Patient arrived in ED. ag3 02:11 Yvon Robertson MD is Attending Physician. kdr 02:20 Erlinda Bishop, JOSSELINE is Primary Nurse. lp1 02:22 Triage completed. lp1 02:22 Arm band placed on. lp1 02:27 Patient has correct armband on for positive identification. Pulse ox on. NIBP on. lp1 02:58 Missed attempt(s): 20 gauge in right forearm. Inserted saline lock: 20 gauge in right lp1 forearm, using aseptic technique. Blood collected. 03:20 Radiology exam delayed due to lab results not completed at this time. (BUN/Creatinine). kw1 04:18 Abdomen In Process Unspecified. EDMS 05:47 No provider procedures requiring assistance completed. IV discontinued, No lp1 redness/swelling at site. Pressure dressing applied. Administered Medications: 02:57 Drug: NS 0.9% 500 ml Route: IV; Rate: bolus; Site: right forearm; lp1 03:40 Follow up: IV Status: Completed infusion; IV Intake: 500ml lp1 Intake: 03:40 IV: 500ml; Total: 500ml. lp1 Outcome: 05:30 Discharge ordered by . kdr 05:47 Discharged to home ambulatory. lp1 05:47 Condition: good 05:47 Discharge instructions given to patient, Instructed on discharge instructions, follow up and referral plans. medication usage, Demonstrated understanding of instructions, follow-up care, medications, Prescriptions given X 4. 05:48 Patient left the ED. lp1 Signatures: Dispatcher [employer] EDMS Yvon Robertson MD MD kdr Pena, Laura, RN RN lp1 Maryjane Kirkland kw1 Erica Dugan 3 Demond Alicea, RN RN rr5
[2019-01-22 06:21] VITALS: TEMP 98.2
[2019-01-22 06:23] VITALS: BP 117/65; O2SAT 100
--- OUTSIDE RECORDS SUMMARY | 2019-01-23 06:52 | XMS REPORT ---
[...] Start End Date Status Dosage Date Lisinopril [facility] [place] [id number] 5 MG Orally Once Active 1 tablet a day Nexium [facility] [place] [id number] 40 MG Orally Once Active 1 capsule a day Results No Known Results Summary Purpose eClinicalWorks Submission
--- OUTSIDE RECORDS SUMMARY | 2019-01-23 06:53 | XMS REPORT | Summary of Care ---
:1965 Author Organization [facility] Address [address] [place] [id number] Care Team Providers Name Role Phone Pcp, Patient Does Not Have A Primary Care Provider J Luis Lopez Insurance Hmo Reason for Referral (Routine) Status Reason Specialty Diagnoses / Referred By Contact Referred To Procedures Contact New Request Diagnoses Partial small bowel obstruction Generalized abdominal pain Eitan Gruber, Pcp, Patient Does Procedures Discharge Follow-up: PCP PATIENT DOES NOT HAVE A PCP; 4-6 Weeks MD Not Have A [address] [place] [id number] Radiology Services (AMINTA) Status Reason Specialty Diagnoses / Referred By Referred To Procedures Contact Contact New Request Diagnostic Diagnoses Transaminitis Eitan Gruber, Radiology Procedures US ABDOMEN LIMITED [address] [place] [address] Radiology Services ([facility]INTA) Status Reason Specialty Diagnoses / Referred By Referred To Procedures Contact Contact New Request Diagnostic Diagnoses Transaminitis Eitan Gruber, Radiology Procedures US ABDOMEN LIMITED [address] [place] [address] Radiology Services (STAT) Status Reason Specialty Diagnoses / Referred By Referred To Procedures Contact Contact New Request Diagnostic Diagnoses Left sided abdominal pain Mitchell Lindquist Radiology Procedures XR ABDOMEN ACUTE SERIES MD Roddy [address] [address] Radiology Services (STAT) Status Reason Specialty Diagnoses / Referred By Referred To Procedures Contact Contact New Request Diagnostic Diagnoses Left sided abdominal pain Mitchell Lindquist Radiology Procedures XR ABDOMEN ACUTE SERIES MD Roddy 301 [place] [phone] Reason for Visit Reason Comments Abdominal Pain Auth/Cert Status Reason Specialty Diagnoses / Referred By Referred To Procedures Contact Contact [facility] [address] [place] [address] [place] [address] Encounter Details Date Type Department Care Team Description 2018 - Hospital Encounter Medicine (ROXI 10A) Mitchell Lindquist MD [address] [phone] Abdominal pain 11/02/2018 [facility]12 [facility] [address] [place] [phone] [place] [phone] Stewart Denny MD [address] [place] [address]. [place], [place] [id number] [phone] Allergies Active Allergy Reactions Severity Noted Date Comments Penicillin Hives 2018 Sulfa (Sulfonamide Other - See comments 2018 hyperventilate Antibiotics) documented as of this encounter (statuses as of 11/02/2018) Medications Medication Sig Dispensed Refills Start Date End Date Status busPIRone 5 mg tablet Take 15 mg by 0 Active mouth every evening. QUEtiapine (SEROQUEL) Take 200 mg by 0 Active 200 mg tablet mouth every morning. QUEtiapine (SEROQUEL) Take 400 mg by 0 Active 400 mg tablet mouth every evening. lisinopril 5 mg tablet Take 5 mg by 0 Active mouth daily. traZODone 100 mg tablet Take 100 mg by 0 Active mouth at bedtime. escitalopram oxalate Take 20 mg by 0 Active (LEXAPRO) 20 mg tablet mouth at bedtime. documented as of this encounter (statuses as of 11/02/2018) Active Problems Problem Noted Date Abdominal pain 10/30/2018 documented as of this encounter (statuses as of 11/02/2018) Social History Tobacco Use Types Packs/Day Years Used Date Current Every Day Smoker 1 40 Smokeless Tobacco: Former User Tobacco Cessation: Ready to Quit: Yes; Counseling Given: No Alcohol Use Drinks/Week oz/Week Comments Never Alcohol Habits Answer Date Recorded How often do you have a drink containing alcohol? Never 10/30/2018 How many drinks containing alcohol do you have on a typical Not asked day when you are drinking? How often do you have six or more drinks on one occasion? Not asked Education Answer Date Recorded What is the highest level of school Bachelor's degree (e.g., BA, AB, 2018 you have completed or the highest BS) degree you have received? Financial Resource Strain Answer Date Recorded How hard is it for you to pay for the very basics like Not hard at all 2018 food, housing, medical care, and heating? Food Insecurity Answer Date Recorded Within the past 12 months, you worried that your food would Never true 2018 run out before you got money to buy more. Within the past 12 months, the food you bought just didn't Never true 2018 last and you didn't have money to get more. Transportation Needs Answer Date Recorded In the past 12 months, has lack of transportation kept you from Yes 2018 medical appointments or from getting medications? In the past 12 months, has lack of transportation kept you from Yes 2018 meetings, work, or getting things needed for daily living? Sex Assigned at Date Recorded Not on file Job Start Date Occupation Industry Not on file Not on file Not on file Travel History Travel Start Travel End No recent travel history available. documented as of this encounter Last Filed Vital Signs Vital Sign Reading Time Taken Comments Blood Pressure 112/72 11/02/2018 7:20 AM CDT Pulse 60 11/02/2018 7:20 AM CDT Temperature 36.3 C (97.4 F) 11/02/2018 7:20 AM CDT Respiratory Rate 18 11/02/2018 7:20 AM CDT Oxygen Saturation 97% 11/02/2018 7:20 AM CDT Inhaled Oxygen Concentration - - Weight 84 kg (185 lb 3 oz) 10/31/2018 3:15 AM CDT bedscale Height 177.8 cm (5' 10") 10/30/2018 5:20 AM CDT Body Mass Index 26.57 10/30/2018 5:20 AM CDT documented in this encounter Progress Notes Silver Cheung MD - 11/01/2018 6:48 PM CDTBRIEF: Pt got upset overnight due to an incident wherein he called the cafeteria asking for an extra brownie but per patient, the cafeteria personnel told him in a rude manner that he cant get any more food/snacks and hung up on him. This set patient off, and patient threatened to leave AMA, while still complaining of abd pain. Adjusted order for diet, and gave patient pudding overnight. Pt calmed down after counseling, and isstaying until properly discharged by AM team. Silver Cheung MD, MPH Internal Medicine PGY-3 [facility] Team Physician # [id number] Pager # [phone] ONTAdiannaSaqibDO - 11/01/2018 4:57 PM CDT [facility] Progress Note Date of Service: 11/01/2018 16:57 Chief Complaint: Abdominal Pain, N/V 24-HOUR EVENTS: - NAEO SUBJECTIVE: Patient reports feeling better. Tolerating liquuids and wishes to try eating. Is passing flatus. Denies nausea, vomiting. PHYSICAL EXAM: Vitals: 11/01/18 0420 11/01/18 0729 11/01/18 1118 11/01/18 1522 BP: 102/60 114/69 109/61 117/76 Pulse: 56 61 64 76 Resp: 18 18 18 18 Temp: 36.5 C (97.7 F) 36.4 C (97.6 F) 36.7 C (98 F) 36.3 C (97.4 F) TempSrc: Oral Oral Oral Oral SpO2: 97% 97% 97% 99% Weight: Height: Intake/Output Summary (Last 24 hours) at 11/01/2018 1657 Last data filed at 11/01/2018 0900 Gross per 24 hour Intake 850 ml Output 2200 ml Net -1350 ml General: alert and oriented x 4 (person, place, date/time and situation); no apparent distress Lungs: clear to auscultation bilaterally Cardio: S1, S2 normal; no murmurs, rubs or gallops, regular rate and rhythm Abdomen: soft; nontender; non-distended; normoactive bowel sounds Extremities: no clubbing, cyanosis, or edema LABS/IMAGING - reviewed, pertinent results as below: Recent Results (from the past 24 hour(s)) Basic Metabolic Panel (NA, K, CL, CO2, GLUCOSE, BUN, CREATININE, CA) Collection Time: 11/01/18 6:36 AM Result Value Ref Range NA 140 135 - 145 mmol/L K 4.5 3.5 - 5.0 mmol/L CL 117 (H) 98 - 108 mmol/L CO2 TOTAL 22 (L) 23 - 31 mmol/L AGAP 1 (L) 2 - 16 BUN 14 7 - 23 mg/dL GLUCOSE 79 70 - 110 mg/dL CREATININE 1.96 (H) 0.60 - 1.25 mg/dL CALCIUM 8.4 (L) 8.6 - 10.6 mg/dL eGFR Calculation (Non-) 36.2 mL/min/1.73m2 eGFR Calculation () 43.9 mL/min/1.73m2 CBC WITH DIFFERENTIAL Collection Time: 11/01/18 6:36 AM Result Value Ref Range WBC 4.72 4.20 - 10.70 10*3/L RBC 3.62 (L) 4.26 - 5.52 10*6/L HGB 10.4 (L) 12.2 - 16.4 g/dL HCT 32.1 (L) 38.4 - 49.3 % MCV 88.7 81.7 - 95.6 fL MCH 28.7 26.1 - 32.7 pg MCHC 32.4 31.2 - 35.0 g/dL RDW-SD 48.4 38.5 - 51.6 fL RDW-CV 15.1 12.1 - 15.4 % PLT 150 150 - 328 10*3/L MPV 10.3 9.8 - 13.0 fL NRBC/100 WBC 0.0 0.0 - 10.0 /100 WBCs NRBC x10^3 <0.01 10*3/L GRAN MAT (NEUT) % 32.4 % IMM GRAN % 0.20 % LYMPH % 56.6 % MONO % 6.6 % EOS % 4.0 % BASO % 0.2 % GRAN MAT x10^3(ANC) 1.53 (L) 1.99 - 6.95 10*3/uL IMM GRAN x10^3 <0.03 0.00 - 0.06 10*3/uL LYMPH x10^3 2.67 1.09 - 3.23 10*3/uL MONO x10^3 0.31 (L) 0.36 - 1.02 10*3/uL EOS x10^3 0.19 0.06 - 0.53 10*3/uL BASO x10^3 <0.03 0.01 - 0.09 10*3/uL ASSESSMENT/PLAN Jeovany Buckley is a 53 year old male admitted to the hospital with: Abdominal pain N/V CLARISSA on CKDIII Constipation for 7 days Hx of reported SBO OSH Patient with XR findings suggestive of early SBO vs enteritis. Will Monitor patient NPO and advance as tolerated. - Advance diet as tolerated - bowel regimen Bipolar d/o Harnett disease Ultram o/d abuse Insomnia -avoid ultram -c/w home seroquel -c/w lexapro -c/w trazodone GERD -patient states nexium caused him to have kidney injury; monitor DVT; R leg 09/2017 -coags -hep ppx PainImprovedTylenol Prophylaxis: DVT-heparin Stress Ulcer:Pt refused nexium Code Status:addressed:DNR/DNI Saqib Gracia Internal Medicine [facility] Team Pager#[phone] END OF DAILY PROGRESS NOTE HOSPITAL COURSE Jeovany Buckley is a 53 year old male with a PMH OSH SBO per pt report, ? 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 AXR findings demonstrated air-fluid levels, without significant small bowel dilatation which could be seen in the setting enteritis or early obstruction. Abdominal U/S demonstrated mild hepatomegaly and normal echogenicity. Pt made NPO and diet advanced as tolerated. Creatinine downtrending to 2.64 from 4.81. WBC count downtrending to 5.61 down from 12.99. CURRENT MEDICATIONS - reviewed. Current Facility-Administered Medications Medication Dose Route Frequency Last Rate Last Dose acetaminophen (TYLENOL) tablet 650 mg 650 mg Oral Q6HPRN 650 mg at 2006 busPIRone (BUSPAR) tablet 15 mg 15 mg Oral QPM 15 mg at 10/31/18 173 escitalopram oxalate (LEXAPRO) tablet 20 mg 20 mg Oral QHS 20 mg at 10/31 heparin injection 5,000 Units 5,000 Units Subcutaneous Q12H 5,000 Units at 11/01/18 0901 lactated ringers IV infusion 1,000 mL 1,000 mL IV Infusion CONTINUOUS 125 mL/hr at 10/31/18 2356 1,000 mL at 10/31/18 2356 ondansetron (ZOFRAN (PF)) injection 4 mg 4 mg Slow IV Push Q6HPRN 4 mg at 10/30/18 0847 QUEtiapine (SEROQUEL) tablet 200 mg 200 mg Oral QAM 200 mg at 11/01/18 0901 QUEtiapine (SEROQUEL) tablet 400 mg 400 mg Oral QPM 400 mg at 10/31/18 173 sennosides (SENOKOT) tablet 8.6 mg 8.6 mg Oral DAILY 8.6 mg at 11/01/18 0901 traZODone (DESYREL) tablet 100 mg 100 mg Oral QHS 100 mg at 10/31/182006 Associated attestation - Eitan Gruber MD - 11/01/2018 8:02 PM CDTI personally evaluated the patient and agree with Dr. Gracia's resident note as written. Interested in eating today, passing more flatus. I actively participated in the decision-making process. Pleasesee the resident's note for additional details.Lisa Patino RN - 10/31/2018 9:58 AM [facility] Management Social Functional Assessment Patient Name: Jeovany Buckley Age: [age] year old Sex: male Previous admit date: N/A Current diagnosis and co-morbidities: acute on chroic kidney disease and partial small bowel obstruction Readmission Questions: Was patient discharged from any acute care hospital within the last 30 days: No Social Functional Assessment: Primary language spoken/preferred: Gabonese Mental Status: Alert & Oriented to Person,Place & Time Information given by: Self Address of living arrangement : [address] [place] [address] [place] [address] Persons living in home: Self Barriers to returning home: Declining function Baseline functional status- ambulation: Independent Functional status-baseline personal care: Independent Baseline functional status- driving: Dependent Baseline functional status- grocery shopping: Independent Functional status-baseline housekeeping: Independent Functional status-baseline meal prep: Independent Current functional status same as prior: Yes Do you have a PCP?: No Refered to: inpt registration for referral of PCP in [place], [place] Home Health Care Agency: No Provider Services: No DME Company: No Equipment: Cane(uses to scare away stray dogs when walking) Community resources utilized: None Funding Resources: Commercial([facility] Medicare complete) Prescription coverage plan: Commercial Pharmacy where meds are filled: Other Other pharmacy: [facility] in [place], [place] Anticipated services prior to disharge: MRI/CT/US;Lab Values;Consult;Reassess prior to discharge Expected mode of discharge transportation: Friend Name and phone number of the friend or family member picking up the patient: kwan Hui [phone] Additional info required for discharge planning: Pending medical evaluation Recommended discharge plan: Home SFA Complete: Social Functional Assessment complete: Yes Alcohol Use Screening (AUDIT-C) How often do you have a drink containing alcohol?: Never SCORE: 0 Did patient elect to have resources provided: No Actions taken: Provided support Role of Care Management explained. Jaylene Patino RN, BSN Technical Operations Manager Saqib Robin DO - 10/31/2018 6:48 AM CDT [facility] Progress Note Date of Service: 10/31/2018 06:48 Chief Complaint: Abdominal Pain, N/V 24-HOUR EVENTS: - NAEO SUBJECTIVE: - Complaining of 7/10 abdominal pain across lower abdomen - passing flatus - has not yet had a BM PHYSICAL EXAM: Vitals: 10/30/18 2351 10/31/18 0315 10/31/18 0320 10/31/18 0417 BP: 90/51 (!) 83/48 90/51 90/48 Pulse: 70 68 70 63 Resp: 16 Temp: 36.4 C (97.5 F) 36.5 C (97.7 F) 36.5 C (97.7 F) TempSrc: Oral Oral Oral SpO2: 93% 93% 94% 93% Weight: 84 kg (185 lb 3 oz) Height: Intake/Output Summary (Last 24 hours) at 10/31/2018 0648 Last data filed at 10/31/2018 0600 Gross per 24 hour Intake 0 ml Output Net 0 ml General: alert and oriented x 4 (person, place, date/time and situation); no apparent distress Lungs: clear to auscultation bilaterally Cardio: S1, S2 normal; no murmurs, rubs or gallops, regular rate and rhythm Abdomen: soft; TTP in RLQ and LLQ; non-distended; normoactive bowel sounds Extremities: no clubbing, cyanosis, or edema LABS/IMAGING - reviewed, pertinent results as below: Recent Results (from the past 24 hour(s)) Basic Metabolic Panel (NA, K, CL, CO2, GLUCOSE, BUN, CREATININE, CA) Collection Time: 10/31/18 3:26 AM Result Value Ref Range NA 141 135 - 145 mmol/L K 4.0 3.5 - 5.0 mmol/L CL 116 (H) 98 - 108 mmol/L CO2 TOTAL 21 (L) 23 - 31 mmol/L AGAP 4 2 - 16 BUN 18 7 - 23 mg/dL GLUCOSE 77 70 - 110 mg/dL CREATININE 2.64 (H) 0.60 - 1.25 mg/dL CALCIUM 8.2 (L) 8.6 - 10.6 mg/dL eGFR Calculation (Non-) 25.7 mL/min/1.73m2 eGFR Calculation () 31.1 mL/min/1.73m2 Magnesium Serum Collection Time: 10/31/18 3:26 AM Result Value Ref Range MAGNESIUM 1.7 1.7 - 2.4 mg/dL CBC WITH DIFFERENTIAL Collection Time: 10/31/18 3:26 AM Result Value Ref Range WBC 5.61 4.20 - 10.70 10*3/L RBC 3.81 (L) 4.26 - 5.52 10*6/L HGB 10.9 (L) 12.2 - 16.4 g/dL HCT 33.4 (L) 38.4 - 49.3 % MCV 87.7 81.7 - 95.6 fL MCH 28.6 26.1 - 32.7 pg MCHC 32.6 31.2 - 35.0 g/dL RDW-SD 47.5 38.5 - 51.6 fL RDW-CV 14.8 12.1 - 15.4 % PLT 147 (L) 150 - 328 10*3/L MPV 9.8 9.8 - 13.0 fL NRBC/100 WBC 0.0 0.0 - 10.0 /100 WBCs NRBC x10^3 <0.01 10*3/L GRAN MAT (NEUT) % 42.5 % IMM GRAN % 0.40 % LYMPH % 48.5 % MONO % 5.5 % EOS % 2.9 % BASO % 0.2 % GRAN MAT x10^3(ANC) 2.39 1.99 - 6.95 10*3/uL IMM GRAN x10^3 <0.03 0.00 - 0.06 10*3/uL LYMPH x10^3 2.72 1.09 - 3.23 10*3/uL MONO x10^3 0.31 (L) 0.36 - 1.02 10*3/uL EOS x10^3 0.16 0.06 - 0.53 10*3/uL BASO x10^3 <0.03 0.01 - 0.09 10*3/uL ASSESSMENT/PLAN Jeovany Buckley is a 53 year old male admitted to the hospital with: Abdominal pain N/V CLARISSA on CKDIII Constipation for 7 days Hx of reported SBO OSH Patient with XR findings suggestive of early SBO vs enteritis. Will Monitor patient NPO and advance as tolerated. -LR 125cc/hr -NPO; adv as tolerated; if pt worsens, consider NGT -Senokot -monitor CBC BMP Bipolar d/o Harnett disease Ultram o/d abuse Insomnia -avoid ultram -c/w home seroquel -c/w lexapro -c/w trazodone GERD -patient states nexium caused him to have kidney injury; monitor DVT; R leg 09/2017 -coags -hep ppx PainImprovedTylenol Prophylaxis: DVT-heparin Stress Ulcer:Pt refused nexium Code Status:addressed:DNR/DNI Ganesh Matamoros, MS4 I personally examined the patient on 10/31/2018 and have verified the MS4 medical student documentation and/or findings, including the history, physical exam, and medical decision making. Additionally,I have personally performed or re-performed the physical exam and medical decision making activitiesof this patient's evaluation and management service. Saqib Gracia, Internal Medicine [facility] Pager#[phone] END OF DAILY PROGRESS NOTE HOSPITAL COURSE Jeovany Buckley is a 53 year old male with a PMH OSH SBO per pt report, ? 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 AXR findings demonstrated air-fluid levels, without significant small bowel dilatation which could be seen in the setting enteritis or early obstruction. Abdominal U/S demonstrated mild hepatomegaly and normal echogenicity. Pt made NPO and diet advanced as tolerated. Creatinine downtrending to 2.64 from 4.81. WBC count downtrending to 5.61 down from 12.99. CURRENT MEDICATIONS - reviewed. Current Facility-Administered Medications Medication Dose Route Frequency Last Rate Last Dose acetaminophen (TYLENOL) tablet 650 mg 650 mg Oral Q6HPRN 650 mg at 0636 busPIRone (BUSPAR) tablet 15 mg 15 mg Oral QPM 15 mg at 10/30/18 172 escitalopram oxalate (LEXAPRO) tablet 20 mg 20 mg Oral QHS 20 mg at 10/30 heparin injection 5,000 Units 5,000 Units Subcutaneous Q12H 5,000 Units at 10/30/182038 lactated ringers IV infusion 1,000 mL 1,000 mL IV Infusion CONTINUOUS 125 mL/hr at 10/31/18423 1,000 mL at 10/31/18423 ondansetron (ZOFRAN (PF)) injection 4 mg 4 mg Slow IV Push Q6HPRN 4 mg at 10/30/18 0847 QUEtiapine (SEROQUEL) tablet 200 mg 200 mg Oral QAM 200 mg at 10/30/18 0845 QUEtiapine (SEROQUEL) tablet 400 mg 400 mg Oral QPM 400 mg at 10/30/182038 sennosides (SENOKOT) tablet 8.6 mg 8.6 mg Oral DAILY 8.6 mg at 10/30/18844 traZODone (DESYREL) tablet 100 mg 100 mg Oral QHS 100 mg at 10/30/182038 Associated attestation - Eitan Gruebr MD - 10/31/2018 10:44 PM CDTI personally evaluated the patient and agree with Dr. Gracia's resident note as written. Bowel sounds increased today, mild TTP in LLQ. Will trial po. I actively participated in the decision-making process. Please see the resident's note for additional details.Saqib Gracia DO - 10/30/2018 2:57 PM CDT PGY-1 Medicine Progress Note Hospital Day: 0 Date of Service: 10/30/2018 14:57 Chief Complaint: Abdominal Pain, N/V 24-HOUR EVENTS: NAEO SUBJECTIVE: Patient describes 3/10 epigastric pain. Reports some flatus and belching. Is tolerating sips of water. No bowel movements, nausea, or vomiting. CURRENT MEDICATIONS: reviewed. Current Facility-Administered Medications Medication Dose Route Frequency Last Rate Last Dose acetaminophen (TYLENOL) tablet 650 mg 650 mg Oral Q6HPRN 650 mg at 0636 busPIRone (BUSPAR) tablet 15 mg 15 mg Oral QPM escitalopram oxalate (LEXAPRO) tablet 20 mg 20 mg Oral QHS heparin injection 5,000 Units 5,000 Units Subcutaneous Q12H 5,000 Units at 10/30/18 0848 lactated ringers IV infusion 1,000 mL 1,000 mL IV Infusion CONTINUOUS 125 mL/hr at 10/30/18 1227 1,000 mL at 10/30/18 1227 ondansetron (ZOFRAN (PF)) injection 4 mg 4 mg Slow IV Push Q6HPRN 4 mg at 10/30/18 0847 QUEtiapine (SEROQUEL) tablet 200 mg 200 mg Oral QAM 200 mg at 10/30/18 0845 QUEtiapine (SEROQUEL) tablet 400 mg 400 mg Oral QPM sennosides (SENOKOT) tablet 8.6 mg 8.6 mg Oral DAILY 8.6 mg at 10/30/18 0845 traZODone (DESYREL) tablet 100 mg 100 mg Oral QHS PHYSICAL EXAM: VITALS: BP: (98-112)/(58-92) Temp: [36.3 C (97.4 F)-36.6 C (97.9 F)] Temp source: Oral (10/30 1218) Pulse: [77-100] Resp: [18] SpO2: [95 %-99 %] Height: [177.8 cm (5' 10")] Weight: [83.9 kg (185 lb)-84 kg (185 lb 3 oz)] BMI (calculated): [0-26.57] Intake/Output Summary (Last 24 hours) at 10/30/2018 1457 Last data filed at 10/30/2018 1219 Gross per 24 hour Intake 0 ml Output 400 ml Net -400 ml General: no acute distress and alert Cardiovascular: Heart regular, rate, rhythm, no murmurs; no edema Respiratory: clear to auscultation, no respiratory distress GI: abd soft, non-tender, non-distended, mildly hypoactive BS, Skin: intact and warm, dry Extremities-no clubbing cyanosis or edema in LE b/l LABS/IMAGING: reviewed ASSESSMENT/PLAN: Jeovany Buckley is a 53 year old male with PMH as listed above, admitted to the hospital with: Abdominal pain N/V CLARISSA on CKDIII Constipation for 7 days Hx of reported SBO OSH Patient with XR findings suggestive of early SBO vs enteritis. Will Monitor patient NPO and advance as tolerated. -LR 125cc/hr -NPO; adv as tolerated; if pt worsens, consider NGT -Senokot -monitor CBC BMP Bipolar d/o Harnett disease Ultram o/d abuse Insomnia -avoid ultram -c/w home seroquel -c/w lexapro -c/w trazodone GERD -patient states nexium caused him to have kidney injury; monitor DVT ; R leg 09/2017 -coags -hep ppx Pain ImprovedTylenol Prophylaxis: DVT- heparin Stress Ulcer: Pt refused nexium Code Status: addressed: DNR/DNI Saqib Gracia DO Internal Medicine [facility] Pager#[phone] END OF CURRENT DAILY NOTE. Associated attestation - Eitan Gruber MD - 10/31/2018 10:43 PM CDTI personally evaluated the patient and agree with Dr. Gracia's resident note as written . I actively participated in the decision-making process. Please see the resident's note for additional details.documented in this encounter Plan of Treatment Name Type Priority Associated Diagnoses Order Schedule Lactic Acid Whole Blood LAB Routine STAT for 1 Occurrences starting 10/30/2018 Health Maintenance Due Date Last Done Comments PNEUMOCOCCAL 0-64 YEARS COMBINED SERIES (1 of 3 - 10/28/1973 PCV13) DTaP,Tdap,and Td Vaccines (1 - Tdap) 10/28/1986 COLONOSCOPY 10/28/2017 Zoster Recombinant Vaccine (SHINGRIX) (1 of 2) 10/28/2017 INFLUENZA VACCINE (#1) 2018 documented as of this encounter Procedures Procedure Name Priority Date/Time Associated Diagnosis Comments CBC WITH DIFFERENTIAL Routine 11/02/2018 4:51 Results for this AM CDT procedure are in the results section. CBC WITH DIFF Routine 11/02/2018 4:51 Results for this AM CDT procedure are in the results section. BASIC METABOLIC PANEL Routine 11/02/2018 4:51 Results for this (NA, K, CL, CO2, AM CDT procedure are in GLUCOSE, BUN, the results CREATININE, CA) section. CBC WITH DIFFERENTIAL Routine 11/01/2018 6:36 Results for this AM CDT procedure are in the results section. CBC WITH DIFF Routine 11/01/2018 6:36 Results for this AM CDT procedure are in the results section. BASIC METABOLIC PANEL Routine 11/01/2018 6:36 Results for this (NA, K, CL, CO2, AM CDT procedure are in GLUCOSE, BUN, the results CREATININE, CA) section. CBC WITH DIFFERENTIAL Routine 10/31/2018 3:26 Results for this AM CDT procedure are in the results section. CBC WITH DIFF Routine 10/31/2018 3:26 Results for this AM CDT procedure are in the results section. BASIC METABOLIC PANEL Routine 10/31/2018 3:26 Results for this (NA, K, CL, CO2, AM CDT procedure are in GLUCOSE, BUN, the results CREATININE, CA) section. MAGNESIUM Routine 10/31/2018 3:26 Results for this AM CDT procedure are in the results section. US ABDOMEN LIMITED AMINTA 10/30/2018 7:51 Transaminitis Results for this AM CDT procedure are in the results section. UREA NITROGEN, URINE Routine 10/30/2018 5:59 Results for this RANDOM AM CDT procedure are in the results section. CREATININE, URINE Routine 10/30/2018 5:59 Results for this RANDOM AM CDT procedure are in the results section. HEPATITIS B CORE Routine 10/30/2018 5:54 Results for this ANTIBODY IGM AM CDT procedure are in the results section. HEPATITIS A VIRUS Routine 10/30/2018 5:54 Results for this ANTIBODY IGM AM CDT procedure are in the results section. HCV ANTIBODY Routine 10/30/2018 5:54 Results for this AM CDT procedure are in the results section. HEPATITIS B SURFACE Routine 10/30/2018 5:54 Results for this ANTIGEN AM CDT procedure are in the results section. HEPATITIS B SURFACE Routine 10/30/2018 5:54 Results for this ANTIBODY AM CDT procedure are in the results section. ACTIVATED PARTIAL Routine 10/30/2018 5:54 Results for this THRMPLAS COLEEN AM CDT procedure are in the results section. PROTHROMBIN TIME / INR Routine 10/30/2018 5:54 Results for this AM CDT procedure are in the results section. HEPATIC FUNCTION PANEL AMINTA 10/30/2018 5:54 Results for this (18672) AM CDT procedure are in (ALB,T.PRO,BILI the results T,BU/BC,ALT,AST,ALK section. PHOS) MAGNESIUM Routine 10/30/2018 5:54 Results for this AM CDT procedure are in the results section. PHOSPHORUS Routine 10/30/2018 5:54 Results for this AM CDT procedure are in the results section. LACTIC ACID WHOLE STAT 10/30/2018 5:46 Results for this BLOOD AM CDT procedure are in the results section. XR ABDOMEN ACUTE STAT 10/30/2018 12:55 Left sided abdominal Results for this SERIES AM CDT pain procedure are in the results section. CBC WITH DIFFERENTIAL STAT 10/30/2018 12:36 Left sided abdominal Results for this AM CDT pain procedure are in the results section. URINALYSIS STAT 10/30/2018 12:36 Left sided abdominal Results for this AM CDT pain procedure are in the results section. CBC WITH DIFF STAT 10/30/2018 12:36 Left sided abdominal Results for this AM CDT pain procedure are in the results section. COMP. METABOLIC PANEL STAT 10/30/2018 12:36 Left sided abdominal Results for this (57243) AM CDT pain procedure are in the results section. LIPASE STAT 10/30/2018 12:36 Left sided abdominal Results for this AM CDT pain procedure are in the results section. NOTICE OF PRIVACY Routine 2018 11:32 PRACTICES PM CDT NOTICE OF PRIVACY Routine 2018 11:32 PRACTICES PM CDT NOTICE OF PRIVACY Routine 2018 11:31 PRACTICES PM CDT CONSENT/REFUSAL FOR Routine 2018 11:31 DIAGNOSIS AND PM CDT TREATMENT AGREEMENTS Routine 2018 12:01 AUTHORIZATIONS AND AM CDT IRREVOCABLE ASSIGNMENTS (FORM 2001) documented in this encounter Results CBC WITH DIFFERENTIAL (11/02/2018 4:51 AM CDT) WBC 6.39 4.20 - 10.70 [facility] 10*3/L SERVICES RBC 3.49 (L) 4.26 - 5.52 [facility] 10*6/L SERVICES HGB 9.8 (L) 12.2 - 16.4 [facility] g/dL SERVICES HCT 30.5 (L) 38.4 - 49.3 % [facility] SERVICES MCV 87.4 81.7 - 95.6 fL [facility] MCH 28.1 26.1 - 32.7 pg [facility] MCHC 32.1 31.2 - 35.0 [facility] g/dL SERVICES RDW-SD 47.8 38.5 - 51.6 fL [facility] SERVICES RDW-CV 14.9 12.1 - 15.4 % [facility] PLT 132 (L) 150 - 328 [facility] 10*3/L SERVICES MPV 9.7 (L) 9.8 - 13.0 fL [facility] SERVICES NRBC/100 WBC 0.0 0.0 - 10.0 /100 [facility] WBCs SERVICES NRBC x10^3 <0.01 10*3/L [facility] GRAN MAT (NEUT) % 43.9 % [facility] IMM GRAN % 0.20 % [facility] LYMPH % 46.5 % [facility] MONO % 5.8 % [facility] EOS % 3.4 % [facility] BASO % 0.2 % [facility] GRAN MAT x10^3(ANC) 2.81 1.99 - 6.95 [facility] 10*3/uL SERVICES IMM GRAN x10^3 <0.03 0.00 - 0.06 [facility] 10*3/uL SERVICES LYMPH x10^3 2.97 1.09 - 3.23 [facility] 10*3/uL SERVICES MONO x10^3 0.37 0.36 - 1.02 [facility] 10*3/uL SERVICES EOS x10^3 0.22 0.06 - 0.53 [facility] 10*3/uL SERVICES BASO x10^3 <0.03 0.01 - 0.09 [facility] 10*3/uL SERVICES Specimen Blood - HAND, LEFT Performing Organization Address City/State/Zipcode Phone Number [facility] CLIA: [id number], [address] [place] [address] [facility] Basic Metabolic Panel (NA, K, CL, CO2, GLUCOSE, BUN, CREATININE, CA) (2018 4:51 AM CDT) NA 140 135 - [address] [facility] mmol/L SERVICES K 4.2 3.5 - 5.[address] [facility] mmol/L SERVICES CL 114 (H) 98 - 108 mmol/L [facility] CO2 TOTAL 23 23 - 31 mmol/L [facility] AGAP 3 2 - [address] [facility] BUN 15 7 - 23 mg/dL [facility] SERVICES GLUCOSE 100 70 - 110 mg/dL [facility] SERVICES CREATININE 1.85 (H) 0.60 - 1.[address] [facility] mg/dL SERVICES CALCIUM 8.6 8.6 - 10.[address] [facility] mg/dL SERVICES eGFR Calculation 38.7 mL/min/1.73m2 [facility] (Non- SERVICES Niuean) eGFR Calculation 46.9 mL/min/1.73m2 [facility] () SERVICES Specimen Blood - HAND, LEFT Narrative Performed At [facility] of Glomerular Filtration Rate (GFR) and Staging [facility] SERVICES of Kidney Disease* + + + + | GFR (mL/min/1.73 m2)| With Kidney Damage|Without Kidney Damage + + + + |>90|Stage one| Normal + + + + |60-89|Stage two| Decreased GFR + + + + |30-59|Stage three| Stage three + + + + |15-29|Stage four | Stage four + + + + |<15 (or dialysis)|Stage five | Stage five + + + + *Each stage assumes the associated GFR level has been in effect for at least three months.Stages 1 to 5, with or without kidney disease, indicate chronic kidney disease. Notes: Determination of stages one and two (with eGFR >59mL/min/1.73 m2) requires estimation of kidney damage for at least three months as defined by structural or functional abnormalities of the kidney, manifested by either: Pathological abnormalities or Markers of kidney damage (including abnormalities in the composition of the blood or urine or abnormalities in imaging tests). Performing Organization Address City/State/Zipcode Phone Number [facility] CLIA: [id number], [address] [place], [place] [phone] [facility] WITH DIFFERENTIAL (11/01/2018 6:36 AM CDT) WBC 4.72 4.20 - 10.70 [facility] 10*3/L SERVICES RBC 3.62 (L) 4.26 - 5.52 [facility] 10*6/L SERVICES HGB 10.4 (L) 12.2 - 16.4 [facility] g/dL SERVICES HCT 32.1 (L) 38.4 - 49.3 % [facility] MCV 88.7 81.7 - 95.6 fL [facility] MCH 28.7 26.1 - 32.7 pg [facility] MCHC 32.4 31.2 - 35.0 [facility] g/dL SERVICES RDW-SD 48.4 38.5 - 51.6 fL [facility] SERVICES RDW-CV 15.1 12.1 - 15.4 % [facility] PLT 150 150 - 328 [facility] 10*3/L SERVICES MPV 10.3 9.8 - 13.0 fL [facility] SERVICES NRBC/100 WBC 0.0 0.0 - 10.0 /100 [facility] WBCs SERVICES NRBC x10^3 <0.01 10*3/L [facility] SERVICES GRAN MAT (NEUT) % 32.4 % [facility] IMM GRAN % 0.20 % [facility] LYMPH % 56.6 % [facility] MONO % 6.6 % [facility] EOS % 4.0 % [facility] BASO % 0.2 % [facility] GRAN MAT x10^3(ANC) 1.53 (L) 1.99 - 6.95 [facility] 10*3/uL SERVICES IMM GRAN x10^3 <0.03 0.00 - 0.06 [facility] 10*3/uL SERVICES LYMPH x10^3 2.67 1.09 - 3.23 [facility] 10*3/uL SERVICES MONO x10^3 0.31 (L) 0.36 - 1.02 [facility] 10*3/uL SERVICES EOS x10^3 0.19 0.06 - 0.53 [facility] 10*3/uL SERVICES BASO x10^3 <0.03 0.01 - 0.09 [facility] 10*3/uL SERVICES Specimen Blood - ARM, RIGHT Performing Organization Address City/State/Zipcode Phone Number [facility] CLIA: [id number], [address] [facility] [place] [address] [facility] Basic Metabolic Panel (NA, K, CL, CO2, GLUCOSE, BUN, CREATININE, CA) (2018 6:36 AM CDT) NA 140 135 - [address] [facility] mmol/L SERVICES K 4.5 3.5 - 5.[address] [facility] mmol/L SERVICES CL 117 (H) 98 - 108 mmol/L [facility] SERVICES CO2 TOTAL 22 (L) 23 - 31 mmol/L [facility] SERVICES AGAP 1 (L) 2 - [address] [facility] SERVICES BUN 14 7 - 23 mg/dL [facility] GLUCOSE 79 70 - 110 mg/dL [facility] SERVICES CREATININE 1.96 (H) 0.60 - 1.[address] [facility] mg/dL SERVICES CALCIUM 8.4 (L) 8.6 - 10.[address] [facility] mg/dL SERVICES eGFR Calculation 36.2 mL/min/1.73m2 [facility] (Non- SERVICES Ni[place]an) eGFR Calculation 43.9 mL/min/1.73m2 [facility] () SERVICES Specimen Blood - ARM, RIGHT Narrative Performed At [facility] Glomerular Filtration Rate (GFR) and Staging [facility] of Kidney Disease* + + + + | GFR (mL/min/1.73 m2)| With Kidney Damage|Without Kidney Damage + + + + |>90|Stage one| Normal + + + + |60-89|Stage two| Decreased GFR + + + + |30-59|Stage three| Stage three + + + + |15-29|Stage four | Stage four + + + + |<15 (or dialysis)|Stage five | Stage five + + + + *Each stage assumes the associated GFR level has been in effect for at least three months.Stages 1 to 5, with or without kidney disease, indicate chronic kidney disease. Notes: Determination of stages one and two (with eGFR >59mL/min/1.73 m2) requires estimation of kidney damage for at least three months as defined by structural or functional abnormalities of the kidney, manifested by either: Pathological abnormalities or Markers of kidney damage (including abnormalities in the composition of the blood or urine or abnormalities in imaging tests). Performing Organization Address City/State/Zipcode Phone Number [facility] CLIA: [id number], [address] [place] [phone] [facility] CBC WITH DIFFERENTIAL (10/31/2018 3:26 AM CDT) WBC 5.61 4.20 - 10.70 [facility] 10*3/L SERVICES RBC 3.81 (L) 4.26 - 5.52 [facility] 10*6/L SERVICES HGB 10.9 (L) 12.2 - 16.4 [facility] g/dL SERVICES HCT 33.4 (L) 38.4 - 49.3 % [facility] MCV 87.7 81.7 - 95.6 fL [facility] MCH 28.6 26.1 - 32.7 pg [facility] MCHC 32.6 31.2 - 35.0 [facility] g/dL SERVICES RDW-SD 47.5 38.5 - 51.6 fL [facility] RDW-CV 14.8 12.1 - 15.4 % [facility] PLT 147 (L) 150 - 328 [facility] 10*3/L SERVICES MPV 9.8 9.8 - 13.0 fL [facility] NRBC/100 WBC 0.0 0.0 - 10.0 /100 [facility] WBCs SERVICES NRBC x10^3 <0.01 10*3/L [facility] GRAN MAT (NEUT) % 42.5 % [facility] IMM GRAN % 0.40 % [facility] LYMPH % 48.5 % [facility] MONO % 5.5 % [facility] EOS % 2.9 % [facility] BASO % 0.2 % [facility] GRAN MAT x10^3(ANC) 2.39 1.99 - 6.95 [facility] 10*3/uL SERVICES IMM GRAN x10^3 <0.03 0.00 - 0.06 [facility] 10*3/uL SERVICES LYMPH x10^3 2.72 1.09 - 3.23 [facility] 10*3/uL SERVICES MONO x10^3 0.31 (L) 0.36 - 1.02 [facility] 10*3/uL SERVICES EOS x10^3 0.16 0.06 - 0.53 [facility] 10*3/uL SERVICES BASO x10^3 <0.03 0.01 - 0.09 [facility] 10*3/uL SERVICES Specimen Blood - HAND, LEFT Performing Organization Address City/[facility]/Zipcode Phone Number [facility] CLIA: [id number], [address] [place] [address] [phone] [facility] Magnesium Serum (10/31/2018 3:26 AM CDT) MAGNESIUM 1.7 1.7 - 2.4 mg/dL [facility] Specimen Blood - HAND, LEFT Performing Organization Address City/[facility]/Zipcode Phone Number [facility] CLIA: [id number], [address] [place] [address] [facility] Basic Metabolic Panel (NA, K, CL, CO2, GLUCOSE, BUN, CREATININE, CA) (2018 3:26 AM CDT) NA 141 135 - [address] [facility] mmol/L SERVICES K 4.0 3.5 - 5.[address] [facility] mmol/L SERVICES CL 116 (H) 98 - 108 mmol/L [facility] SERVICES CO2 TOTAL 21 (L) 23 - 31 mmol/L [facility] SERVICES AGAP 4 2 - [address] [facility] SERVICES BUN 18 7 - 23 mg/dL [facility] SERVICES GLUCOSE 77 70 - 110 mg/dL [facility] SERVICES CREATININE 2.64 (H) 0.60 - 1.[address] [facility] mg/dL SERVICES CALCIUM 8.2 (L) 8.6 - 10.[address] [facility] mg/dL SERVICES eGFR Calculation 25.7 mL/min/1.73m2 [facility] (Non- SERVICES [place]an) eGFR Calculation 31.1 mL/min/1.73m2 [facility] () SERVICES Specimen Blood - HAND, LEFT Narrative Performed At [facility] of Glomerular Filtration Rate (GFR) and Staging [facility] of Kidney Disease* + + + + | GFR (mL/min/1.73 m2)| With Kidney Damage|Without Kidney Damage + + + + |>90|Stage one| Normal + + + + |60-89|Stage two| Decreased GFR + + + + |30-59|Stage three| Stage three + + + + |15-29|Stage four | Stage four + + + + |<15 (or dialysis)|Stage five | Stage five + + + + *Each stage assumes the associated GFR level has been in effect for at least three months.Stages 1 to 5, with or without kidney disease, indicate chronic kidney disease. Notes: Determination of stages one and two (with eGFR >59mL/min/1.73 m2) requires estimation of kidney damage for at least three months as defined by structural or functional abnormalities of the kidney, manifested by either: Pathological abnormalities or Markers of kidney damage (including abnormalities in the composition of the blood or urine or abnormalities in imaging tests). Performing Organization Address City/State/Zipcode Phone Number [facility] CLIA: [id number], [address] [place] [address] [facility] US ABDOMEN LIMITED (10/30/2018 7:51 AM CDT) Specimen Impressions Performed At PACS/VR/DOSE Mild hepatomegaly. Normal echogenicity with no focal lesions. Jocelyn Modi MD., have reviewed this study and agree with the above report. Narrative Performed At * * * * * * * * ORIGINAL REPORT * * * * * * * * PACS/VR/DOSE RIGHT UPPER QUADRANT ULTRASOUND HISTORY: r/o cirrhosis TECHNIQUE: Survey ultrasound imaging of abdomen was performed focused on the liver, biliary system, and spleen with color Doppler of the main portal vein. Mechanical Intern images were obtained. COMPARISON: None. FINDINGS: LIVER: The liver is mildly enlarged at 18.8 cm with normal echotexture. No focal hepatic lesion.Normal hepatopetalflow within the main portal vein. The main portal vein velocity is 39.2 cm/s. GALLBLADDER: Prior cholecystectomy. The common bile duct measures 3 mm. RIGHT KIDNEY: The visualized portion of the right kidney is unremarkable. PANCREAS: The visualized portions of the pancreas are normal. SPLEEN: The spleen is normal in size at 11 cm. Procedure Note [facility], Radiant Results Inft User - 10/30/2018 9:52 AM CDT * * * * * * * * ORIGINAL REPORT * * * * * * * * RIGHT UPPER QUADRANT ULTRASOUND HISTORY: r/o cirrhosis TECHNIQUE: Survey ultrasound imaging of abdomen was performed focused on the liver, biliary system, and spleen with color Doppler of the main portal vein. Mechanical Intern images were obtained. COMPARISON: None. FINDINGS: LIVER: The liver is mildly enlarged at 18.8 cm with normal echotexture. No focal hepatic lesion. Normal hepatopetal flow within the main portal vein. The main portal vein velocity is 39.2 cm/s. GALLBLADDER: Prior cholecystectomy. The common bile duct measures 3 mm. RIGHT KIDNEY: The visualized portion of the right kidney is unremarkable. PANCREAS: The visualized portions of the pancreas are normal. SPLEEN: The spleen is normal in size at 11 cm. IMPRESSION Mild hepatomegaly. Normal echogenicity with no focal lesions. IBrandon MD., have reviewed this study and agree with the above report. Performing Organization Address [facility] Phone Number PACS/VR/DOSE CREATININE, URINE RANDOM (10/30/2018 5:59 AM CDT) CREAT U 40.9 mg/dL [facility] Specimen Urine - URINE, CLEAN CATCH Performing Organization Address [facility] Phone Number [facility] CLIA: [id number], [address] [place] [address] [phone] [facility] UREA NITROGEN, URINE RANDOM (10/30/2018 5:59 AM CDT) UREA N UR 94 mg/dL [facility] Specimen Urine - URINE, CLEAN CATCH Performing Organization Address [facility] Phone Number [facility] CLIA: [id number], [address] [place] [address] [facility] MAGNESIUM (10/30/2018 5:54 AM CDT) MAGNESIUM 1.6 (L) 1.7 - 2.4 mg/dL [facility] Specimen Blood - LINE, VENOUS Performing Organization Address [facility] Phone Number [facility] CLIA: [id number], [address] [place] [address] [facility] HEPATIC FUNCTION PANEL ([id number]) (ALB,T.PRO,BILI T,BU/BC,ALT,AST,ALK PHOS) (2018 5:54 AM CDT) TOTAL BILI 0.5 0.1 - 1.1 mg/dL [facility] BILI UNCON 0.2 0.1 - 1.1 mg/dL [facility] BILI CONJ 0.0 0.0 - 0.3 mg/dL [facility] T PROTEIN 6.3 6.3 - 8.2 g/dL [facility] ALBUMIN 3.5 3.5 - 5.0 g/dL [facility] ALK PHOS 114 34 - 122 U/L [facility] ALT(SGPT) 32 9 - 51 U/L [facility] AST(SGOT) 53 (H) 13 - 40 U/L [facility] Specimen Blood - LINE, VENOUS Performing Organization Address City/State/[facility] Phone Number [facility] CLIA: [id number], [address] [place] [phone] [facility] Phosphorus Serum (10/30/2018 5:54 AM CDT) PHOSPHORUS 3.7 2.5 - 5.0 mg/dL [facility] Specimen Blood - LINE, VENOUS Performing Organization Address [facility] Phone Number [facility] CLIA: [id number], [address] [place] [address] [phone] [facility] aPTT (10/30/2018 5:54 AM CDT) APTT Patient 25 (L) 26 - [address] [facility] Specimen Blood - LINE, VENOUS Performing Organization Address [facility] Phone Number [facility] CLIA: [id number], [address] [place] [address] [facility] PROTHROMBIN TIME / INR (10/30/2018 5:54 AM CDT) PROTIME PATIENT 10.1 10.1 - 12.[address] [facility] Seconds SERVICES INR 0.9Comment: Normal [facility] INR <1.1; Warfarin SERVICES Therapeutic range 2.0 to 3.0 or 2.5 to 3.5, depending upon the indications. Specimen Blood - LINE, VENOUS Performing Organization Address [facility] Phone Number [facility] CLIA: [id number], [address] [place] [phone] [facility] HCV ANTIBODY (10/30/2018 5:54 AM CDT) HCV Ab NEGATIVE [facility] HCV Semi-Quantitative 0.[address] [facility] Specimen Blood - LINE, VENOUS Performing Organization Address City/[facility] Phone Number [facility] CLIA: [id number], [address] [place] [phone] [facility] HEPATITIS B SURFACE ANTIGEN (10/30/2018 5:54 AM CDT) HBsAg HEPATITIS B Negative [facility] SURFACE ANTIGEN SERVICES NEGATIVE HBsAg 0.[address] [facility] Semi-Quantitative SERVICES Specimen Blood - LINE, VENOUS Performing Organization Address [facility] Phone Number [facility] CLIA: [id number], [address] [place] [address] [facility] HEPATITIS B SURFACE ANTIBODY (10/30/2018 5:54 AM CDT) HBsAB Negative [facility] HBsAb 0.00 mIU/mL [facility] Semi-Quantitative SERVICES Specimen Blood - LINE, VENOUS Narrative Performed At Interpretation:Hepatitis B Surface Antibody [facility] Negative - Patient is considered to be not immune to infection with HBV. Positive - Anti-HBs detected at greater than or equal to 12 mIU/mL.Patient is considered to be immune to infection with HBV. Performing Organization Address [facility] Phone Number [facility] CLIA: [id number], [address] [place] [phone] [facility] HEPATITIS B CORE ANTIBODY IGM (10/30/2018 5:54 AM CDT) HBCM NEGATIVE [facility] HBCM Semi-Quantitative 0.[address] [facility] Specimen Blood - LINE, VENOUS Narrative Performed At Biotin has been reported to cause a negative bias, interpret [facility] results relative to patient's use of biotin. Performing Organization Address [facility] Phone Number [facility] CLIA: [id number], [address] [place] [phone] [facility] HEPATITIS A VIRUS ANTIBODY IGM (10/30/2018 5:54 AM CDT) HAVAb IgM NEGATIVE [facility] HAVM Semi-Quantitative 0.[address] [facility] Specimen Blood - LINE, VENOUS Narrative Performed At HAVAb IgM Interpretative Information: [facility] Reactive greater than or equal to 1.2 Biotin has been reported to cause a negative bias, interpret results relative to patient's use of biotin. Performing Organization Address City/State/Zipcode Phone Number [facility] CLIA: [id number], [address] [place] [address] [facility] Lactic Acid Whole Blood (10/30/2018 5:46 AM CDT) LACTIC ACID 1.04 0.50 - 2.20 mmol/L [facility] Specimen Blood - LINE, VENOUS Performing Organization Address City/State/Zipcode Phone Number [facility] CLIA: [id number], [address] [place] [address] [phone] [facility] XR ABDOMEN ACUTE SERIES (10/30/2018 12:55 AM CDT) Specimen Impressions Performed At Impression: PACS/VR/DOSE No radiographic evidence for acute cardiopulmonary disease. No evidence for pneumoperitoneum or generalized constipation. Air-fluid levels in scattered loops of small bowel, without significant small bowel dilatation to definitively suggest small bowel obstruction. This could be seen in the setting of enteritis or early obstruction. RL: [id number] AFC: [id number] Narrative Performed At Indication: Left-sided abdominal and pelvic pain, history of bowel PACS/VR/DOSE obstruction Comparison: None Findings: AP view of the chest and upright and supine views of the abdomen and pelvis. The cardiothymic silhouette is within normal limits. The lungs are clear bilaterally. The visualized bony thorax is unremarkable. No free air is seen under either hemidiaphragm to suggest pneumoperitoneum. There are air-fluid levels in scattered loops of small bowel, without definite radiographic evidence for small bowel obstruction. Procedure Note [facility], Radiant Results Inft User - 10/30/2018 1:24 AM CDT Indication: Left-sided abdominal and pelvic pain, history of bowel obstruction Comparison: None Findings: AP view of the chest and upright and supine views of the abdomen and pelvis. The cardiothymic silhouette is within normal limits. The lungs are clear bilaterally. The visualized bony thorax is unremarkable. No free air is seen under either hemidiaphragm to suggest pneumoperitoneum. There are air-fluid levels in scattered loops of small bowel, without definite radiographic evidence for small bowel obstruction. IMPRESSION Impression: No radiographic evidence for acute cardiopulmonary disease. No evidence for pneumoperitoneum or generalized constipation. Air-fluid levels in scattered loops of small bowel, without significant small bowel dilatation to definitively suggest small bowel obstruction. This could be seen in the setting of enteritis or early obstruction. RL: [id number] AF: [id number] Performing Organization Address City/State/Zipcode Phone Number PACS/VR/DOSE CBC WITH DIFFERENTIAL (10/30/2018 12:36 AM CDT) WBC 12.99 (H) 4.20 - 10.70 [facility] 10*3/L [facility] RBC 4.14 (L) 4.26 - 5.52 [facility] 10*6/L [facility] HGB 11.8 (L) 12.2 - 16.4 [facility] g/dL [facility] HCT 36.2 (L) 38.4 - 49.3 % [facility] MCV 87.4 81.7 - 95.[address] [facility] MCH 28.5 26.1 - 32.[address] [facility] MCHC 32.6 31.2 - 35.0 [facility] g/dL [facility] RDW-SD 46.7 38.5 - 51.[address] [facility] RDW-CV 14.6 12.1 - 15.4 % [facility] PLT 176 150 - 328 [facility] 10*3/L [facility] MPV 10.2 9.8 - 13.[address] [facility] NRBC/100 WBC 0.0 0.0 - 10.0 /100 [facility] WBCs [facility] NRBC x10^3 <0.01 10*3/L [facility] GRAN MAT (NEUT) % 50.3 % [facility] IMM GRAN % 0.60 % [facility] LYMPH % 38.6 % [facility] MONO % 7.7 % [facility] EOS % 2.5 % [facility] BASO % 0.3 % [facility] GRAN MAT x10^3(ANC) 6.53 1.99 - 6.95 [facility] 10*3/uL [facility] IMM GRAN x10^3 0.08 (H) 0.00 - 0.06 [facility] 10*3/uL [facility] LYMPH x10^3 5.02 (H) 1.09 - 3.23 [facility] 10*3/uL [facility] MONO x10^3 1.00 0.36 - 1.02 [facility] 10*3/uL [facility] EOS x10^3 0.32 0.06 - 0.53 [facility] 10*3/uL [facility] BASO x10^3 0.04 0.01 - 0.09 [facility] 10*3/uL [facility] Specimen Blood - ARM, RIGHT Performing Organization Address [facility] Phone Number [facility] CLIA: [id number], [address] [place] [phone] URINALYSIS (10/30/2018 12:36 AM CDT) APPEARANCE Clear Clear [facility] COLOR Yellow Yellow [facility] PH 5.5 4.8 - 8.0 [facility] SP GRAVITY 1.015 1.003 - 1.030 [facility] GLU U QUAL Negative Negative [facility] BLOOD Negative Negative [facility] KETONES Negative Negative [facility] PROTEIN Negative Negative [facility] UROBILIN 0.2 mg/dL 0-1.0 mg/dL [facility] BILIRUBIN Negative Negative [facility] NITRITE Negative Negative [facility] LEUK GOPI Negative Negative [facility] RBC/HPF 1 0 - [address] [facility] WBC/HPF 1 0 - [address] [facility] BACTERIA Negative Negative [facility] Specimen Urine - URINE, CLEAN CATCH Performing Organization Address [facility] Phone Number [facility] CLIA: [id number], [address] [place], [place] [id number] [address] LIPASE (10/30/2018 12:36 AM CDT) LIPASE 97 0 - 220 U/L [facility] Specimen Blood - ARM, RIGHT Performing Organization Address [facility] Phone Number [facility] CLIA: [id number], [address] [place] [address] COMP. METABOLIC PANEL (06640) (10/30/2018 12:36 AM CDT) NA 135 135 - 145 [facility] mmol/L [facility] K 4.0 3.5 - 5.0 [facility] mmol/L [facility] CL 104 98 - 108 mmol/L [facility] CO2 TOTAL 20 (L) 23 - 31 mmol/L [facility] AGAP 11 2 - 16 [facility] BUN 27 (H) 7 - 23 mg/dL [facility] GLUCOSE 110 70 - 110 mg/dL [facility] CREATININE 4.81 (H) 0.60 - 1.25 [facility] mg/dL [facility] TOTAL BILI <0.1 (L) 0.1 - 1.1 mg/dL [facility] CALCIUM 8.7 8.6 - 10.6 [facility] mg/dL [facility] T PROTEIN 6.7 6.3 - 8.2 g/dL [facility] ALBUMIN 4.1 3.5 - 5.0 g/dL [facility] ALK PHOS 118 34 - 122 U/L [facility] ALT(SGPT) 32 9 - 51 U/L [facility] AST(SGOT) 47 (H) 13 - 40 U/L [facility] eGFR Calculation 12.9 mL/min/1.73m2 [facility] [place] eGFR Calculation 15.6 mL/min/1.73m2 [facility] ([facility]) [facility] Specimen Blood - ARM, RIGHT Narrative Performed At [facility] of Glomerular Filtration Rate (GFR) [facility] and Staging of Kidney Disease* + + +- + | GFR (mL/min/1.73 m2)| With Kidney Damage|Without Kidney Damage + + +- + |>90| Stage one| Normal + + +- + |60-89|S tage two| Decreased GFR + + +- + |30-59|S tage three| Stage three + + +- + |15-29|S tage four | Stage four + + +- + |<15 (or dialysis)|Stage five | Stage five + + +- + *Each stage assumes the associated GFR level has been in effect for at least three months.Stages 1 to 5, with or without kidney disease, indicate chronic kidney disease. Notes: Determination of stages one and two (with eGFR >59mL/min/1.73 m2) requires estimation of kidney damage for at least three months as defined by structural or functional abnormalities of the kidney, manifested by either: Pathological abnormalities or Markers of kidney damage (including abnormalities in the composition of the blood or urine or abnormalities in imaging tests). Performing Organization Address City/State/Zipcode Phone Number [facility] CLIA: [id number], [address] [place] [address] documented in this encounter Visit Diagnoses Diagnosis Partial small bowel obstruction - Primary Unspecified intestinal obstruction Left sided abdominal pain Abdominal pain, unspecified site Acute renal failure superimposed on chronic kidney disease, unspecified CKD stage, unspecified acute renal failure type Transaminitis Nonspecific elevation of levels of transaminase or lactic acid dehydrogenase ( LDH) Generalized abdominal pain Abdominal pain, generalized Abdominal pain Abdominal pain, unspecified site documented in this encounter Administered Medications Medication Order MAR Action Action Date Dose Rate Site acetaminophen (TYLENOL) tablet Given 11/01/2018 8:12 PM CDT 650 mg 650 mg 650 mg, Oral, Q6HPRN, Starting 10/30/18 at 0622, Until Discontinued, Routine, Pain (scale 1-3), Pain (scale 4-6), Temp > 38.5 C Given 10/31/2018 8:07 PM CDT 650 mg Given 10/31/2018 8:09 AM CDT 650 mg busPIRone (BUSPAR) tablet 15 mg Given 11/01/2018 5:01 PM CDT 15 mg 15 mg, Oral, QPM, First dose on 10/30/18 at 1700, Until Discontinued, Routine Given 10/31/2018 5:36 PM CDT 15 mg Given 10/30/2018 5:20 PM CDT 15 mg escitalopram oxalate (LEXAPRO) tablet 20 mg Given 11/01/2018 8:07 PM CDT 20 mg 20 mg, Oral, QHS, First dose on 10/30/18 at 2100, Until Discontinued, Routine Given 10/31/2018 8:07 PM CDT 20 mg Given 10/30/2018 8:39 PM CDT 20 mg heparin injection 5,000 Units Given 11/02/2018 9:30 AM CDT 5,000 Units Abdomen-SC 5,000 Units, Subcutaneous, Q12H, First dose on 10/30/18 at 0800, Until Discontinued, Routine Given 11/01/2018 8:08 PM CDT 5,000 Units Abdomen-SC Given 11/01/2018 9:01 AM CDT 5,000 Units Abdomen-SC lactated ringers IV infusion New Bag 11/01/2018 8:16 PM CDT 1,000 mL 125 mL/hr 1,000 mL at 125 mL/hr, 1,000 mL, IV Infusion, CONTINUOUS, Starting 10/30/18 at 0600, Until Discontinued, Routine New Bag 10/31/2018 11:56 PM CDT 1,000 mL 125 mL/hr New Bag 10/31/2018 2:51 PM CDT 1,000 mL 125 mL/hr ondansetron (ZOFRAN (PF)) injection 4 mg Given 10/30/2018 8:47 AM CDT 4 mg 4 mg, Slow IV Push, Q6HPRN, Starting 10/30/18 at 0545, Until Discontinued, Routine, Nausea and Vomiting (N/V) QUEtiapine (SEROQUEL) tablet 200 mg Given 11/02/2018 9:28 AM CDT 200 mg 200 mg, Oral, QAM, First dose on 10/30/18 at 0900, Until Discontinued, Routine Given 11/01/2018 9:01 AM CDT 200 mg Given 10/31/2018 8:09 AM CDT 200 mg QUEtiapine (SEROQUEL) tablet 400 mg Given 11/01/2018 5:01 PM CDT 400 mg 400 mg, Oral, QPM, First dose on 10/30/18 at 1700, Until Discontinued, Routine Given 10/31/2018 5:36 PM CDT 400 mg Given 10/30/2018 8:39 PM CDT 400 mg sennosides (SENOKOT) tablet 8.6 mg Given 11/01/2018 9:01 AM CDT 8.6 mg 8.6 mg, Oral, DAILY, First dose on 10/30/18 at 0600, Until Discontinued, Routine Given 10/31/2018 8:09 AM CDT 8.6 mg Given 10/30/2018 8:45 AM CDT 8.6 mg traZODone (DESYREL) tablet 100 mg Given 11/01/2018 8:07 PM CDT 100 mg 100 mg, Oral, QHS, First dose on 10/30/18 at 2100, Until Discontinued, Routine Given 10/31/2018 8:07 PM CDT 100 mg Given 10/30/2018 8:39 PM CDT 100 mg Medication Order MAR Action Action Date Dose Rate Site FENTanyl PF (SUBLIMAZE (PF)) Given 10/30/2018 1:04 AM CDT 50 mcg injection 50 mcg 50 mcg, Slow IV Push, ONCE, 1 dose, 10/30/18 at 0200, STAT lactated ringers IV infusion 500 New Bag 10/30/2018 5:56 AM CDT 5,000 mL 999 mL/hr mL at 999 mL/hr, 500 mL, Intravenous, ONCE, 1 dose, 10/30/18 at 0700, Routine NaCl 0.9% (NS) IV infusion 1,000 New Bag 10/30/2018 2:30 AM CDT 1,000 mL 999 mL/hr mL at 999 mL/hr, Intravenous, CONTINUOUS, Starting 10/30/18 at 0315, Until 10/30/18 at 0622, Routine ondansetron (ZOFRAN (PF)) injection 4 mg Given 10/30/2018 1:04 AM CDT 4 mg 4 mg, Slow IV Push, ONCE, 1 dose, 10/30/18 at 0200, AMINTA Polyethylene Glycol 3350 (MIRALAX) powder 17 g Given 11/01/2018 12:39 PM CDT 17 g 17 g, Oral, ONCE NOW, 1 dose, [facility] 11/01/18 at 1300, Routine documented in this encounter Insurance Payer Benefit Plan / Subscriber ID Effective Phone Address Type Group Dates [place] [employer] MEDICARE [id number] 2018-Prese Medicare Adv [facility] documented as of this encounter
--- OUTSIDE RECORDS SUMMARY | 2019-01-23 06:53 | XMS REPORT ---
:1965 [facility] Address [address] [place] [address] Care Team Providers Name Role Phone Unavailable [...] Comments Text Results Atomic Results Result Comments RPR Qualitative 2018-12-30 12:58:17 Test Item Value Reference Range Comments RPR Qual (test code=RPR Qual) Non-Reactive Non-Reactive Reactive Control (test code=Reactive Control) Reactive Weak Reactive Control (test code=Weak Reactive Control) Weak Reactive Non-Reactive Control (test code=Non-Reactive Control) Non-Reactive Lot # (test code=Lot #) [id number] Expiration Dt (test code=Expiration Dt) 01-13-2020 Thyroid Stimulating [id number] 08:56:30 Test Item Value Reference Range Comments TSH (test code=TSH) 0.430 mIU/mL 0.270-4.200 Lipid [id number] 08:50:19 Test Item Value Reference Range Comments Cholesterol Total (test 140 mg/dL 0-200 RISK OF HEART DISEASEPublished code=Cholesterol Total) by [place] [employer] Analyte Optimal Borderline Increased RiskCHOL <200 200-239 >240TRIG <150 150-199 >200HDL Male >60 <40HDL Female >60 <50LDL <100 130-159 >160LDL Near optimal is 100-129 Triglycerides (test 149 mg/dL 9-200 code=Triglycerides) HDL (test code=HDL) 40 mg/dL 40-60 LDL (test code=LDL) 71 mg/dL 0-130 The equation being used in this calculation is LDL=(Chol - HDL) - (Trig / 5) VLDL (test code=VLDL) 30 mg/dL 5-40 The equation being used in this calculation is VLDL=Trig / 5 Chol/HDL (test 3.5 ratio 0.0-5.0 code=Chol/HDL) LDL/HDL Ratio (test 2 The equation being used in this code=LDL/HDL Ratio) calculation is LDL/HDL Ratio=LDL Calc/HDL Chol Hemoglobin [id number] 08:34:46 Test Item Value Reference Range Comments Hemoglobin A1c (test 5.3 % 4.8-5.9 Non Diabetic 4.8-5.9%Diabetic code=Hemoglobin A1c) <7.0% IG [id number] 15:05:10 Test Item Value Reference Range Comments IG (test code=IG) 0.3 % 0.0-5.0 IG Abs (test code=IG Abs) 0 x10 Complete Blood Count with [id number] 15:05:09 Test Item Value Reference Range Comments WBC (test code=WBC) 7.5 x10 4.4-10.5 RBC (test code=RBC) 3.79 x10 4.10-5.70 Hgb (test code=Hgb) 11.2 g/dL 13.4-17.4 MCV (test code=MCV) 89.40 fL 80.00-100.00 Hct (test code=Hct) 33.9 % 38.7-52.0 MCHC (test code=MCHC) 33.00 g/dL 32.00-37.50 RDW CV (test code=RDW CV) 15.4 % 11.5-14.5 MCH (test code=MCH) 29.6 pg 27.0-32.5 Platelets (test 172.0 x10 140.0-440.0 code=Platelets) MPV (test code=MPV) 9.6 fL Slide Review (test code=Slide Auto Auto Result created by Review) GL_SJM_SLIDE_REV_AUTO nRBC (test code=nRBC) 0 NRBC Abs (test code=NRBC Abs) 0.00 x10 IPF (test code=IPF) 0 % Automated [id number] 15:05:09 Test Item Value Reference Range Comments Neutro Auto (test code=Neutro Auto) 47.9 % 36.0-70.0 Lymph Auto (test code=Lymph Auto) 41.9 % 12.0-44.0 Mohave Auto (test code=Mohave Auto) 6.3 % 0.0-11.0 Eos, Auto (test code=Eos, Auto) 3.3 % 0.0-7.0 Basophil Auto (test code=Basophil Auto) 0.3 % 0.0-2.0 Neutro Absolute (test code=Neutro Absolute) 3.6 x10 1.6-7.4 Lymph Absolute (test code=Lymph Absolute) 3.15 x10 .50-4.60 Mohave Absolute (test code=Mohave Absolute) .47 x10 .00-1.20 Eos Absolute (test code=Eos Absolute) 0.25 x10 0.00-0.74 Baso Absolute (test code=Baso Absolute) 0.02 x10 0.00-0.21 Alcohol [id number] 14:06:09 Test Item Value Reference Range Comments Ethanol Level (test <0.00 g/dL 0.00-0.01 Intoxicated 0.080 g/dL or more code=Ethanol Level) Ethanol Inst (test <0 code=Ethanol Inst) Comprehensive Metabolic [id number] 14:06:08 Test Item Value Reference Range Comments Sodium Level (test code=Sodium Level) 137.0 mmol/L 135.0-145.0 Potassium Level (test code=Potassium Level) 4.1 mmol/L 3.5-5.1 Chloride Level (test code=Chloride Level) 103 mmol/L 98-105 CO2 (test code=CO2) 23 mmol/L 22-29 Anion Gap (test code=Anion Gap) 11 mmol/L 7-16 BUN (test code=BUN) 14.50 mg/dL 6.00-20.00 Creatinine Level (test code=Creatinine Level) 1.80 mg/dL 0.70-1.20 BUN/Creat Ratio (test code=BUN/Creat Ratio) 8 Glucose Level (test code=Glucose Level) 98 mg/dL 70-115 Calcium Level (test code=Calcium Level) 8.4 mg/dL 8.3-10.5 Alk Phos (test code=Alk Phos) 108 U/L 40-129 Bilirubin Total (test code=Bilirubin Total) 0.2 mg/dL 0.1-0.9 Albumin Level (test code=Albumin Level) 3.6 g/dL 3.5-5.2 Protein Total (test code=Protein Total) 5.6 g/dL 6.4-8.3 ALT (test code=ALT) 10 U/L 1-41 AST (test code=AST) 14 U/L 1-40 Globulin (test code=Globulin) 2.0 g/dL 2.9-3.1 A/G Ratio (test code=A/G Ratio) 1.8 ratio Comprehensive Metabolic [id number] 14:06:08 Test Item Value Reference Range Comments Sodium Level (test 137.0 mmol/L 135.0-145.0 code=Sodium Level) Potassium Level (test 4.1 mmol/L 3.5-5.1 code=Potassium Level) Chloride Level (test 103 mmol/L 98-105 code=Chloride Level) CO2 (test code=CO2) 23 mmol/L 22-29 Anion Gap (test 11 mmol/L 7-16 code=Anion Gap) BUN (test code=BUN) 14.50 mg/dL 6.00-20.00 Creatinine Level (test 1.80 mg/dL 0.70-1.20 code=Creatinine Level) BUN/Creat Ratio (test 8 code=BUN/Creat Ratio) Glucose Level (test 98 mg/dL 70-115 code=Glucose Level) Calcium Level (test 8.4 mg/dL 8.3-10.5 code=Calcium Level) Alk Phos (test code=Alk 108 U/L 40-129 Phos) Bilirubin Total (test 0.2 mg/dL 0.1-0.9 code=Bilirubin Total) Albumin Level (test 3.6 g/dL 3.5-5.2 code=Albumin Level) Protein Total (test 5.6 g/dL 6.4-8.3 code=Protein Total) ALT (test code=ALT) 10 U/L 1-41 AST (test code=AST) 14 U/L 1-40 Globulin (test 2.0 g/dL 2.9-3.1 code=Globulin) A/G Ratio (test code=A/G 1.8 ratio Ratio) eGFR AA (test code=eGFR 48 mL/min/1.73 m2 eGFR (estimated Glomerular AA) Filtration Rate) is an estimated value, calculated from the patient's serum creatinine using the MDRD equation. It is NOT the patient's actual GFR. The eGFR provides a more clinically useful measure of kidney disease than serum creatinine alone.This calculation takes sex and race into account, if the information is provided. If the race is not provided, and the patient is -[place], multiply by 1.212. If sex is not provided, and the patient is female, multiply by 0.742. Results for patients <18 years of age have not been validated by the MDRD study and should be interpreted with caution. eGFR Result Interpretation:eGFR > or=60 is in the Normal RangeeGFR < 60 may mean kidney diseaseeGFR < 15 may mean kidney failure Ranges recommended by the National Kidney Foundation, http://nkdep.nih.gov Comprehensive Metabolic [id number] 14:06:08 Test Item Value Reference Range Comments Sodium Level (test 137.0 mmol/L 135.0-145.0 code=Sodium Level) Potassium Level (test 4.1 mmol/L 3.5-5.1 code=Potassium Level) Chloride Level (test 103 mmol/L 98-105 code=Chloride Level) CO2 (test code=CO2) 23 mmol/L 22-29 Anion Gap (test 11 mmol/L 7-16 code=Anion Gap) BUN (test code=BUN) 14.50 mg/dL 6.00-20.00 Creatinine Level (test 1.80 mg/dL 0.70-1.20 code=Creatinine Level) BUN/Creat Ratio (test 8 code=BUN/Creat Ratio) Glucose Level (test 98 mg/dL 70-115 code=Glucose Level) Calcium Level (test 8.4 mg/dL 8.3-10.5 code=Calcium Level) Alk Phos (test code=Alk 108 U/L 40-129 Phos) Bilirubin Total (test 0.2 mg/dL 0.1-0.9 code=Bilirubin Total) Albumin Level (test 3.6 g/dL 3.5-5.2 code=Albumin Level) Protein Total (test 5.6 g/dL 6.4-8.3 code=Protein Total) ALT (test code=ALT) 10 U/L 1-41 AST (test code=AST) 14 U/L 1-40 Globulin (test 2.0 g/dL 2.9-3.1 code=Globulin) A/G Ratio (test code=A/G 1.8 ratio Ratio) eGFR AA (test code=eGFR 48 mL/min/1.73 m2 eGFR (estimated AA) Glomerular Filtration Rate) is an estimated value, calculated from the patient's serum creatinine using the MDRD equation. It is NOT the patient's actual GFR. The eGFR provides a more clinically useful measure of kidney disease than serum creatinine alone.This calculation takes sex and race into account, if the information is provided. If the race is not provided, and the patient is -[place], multiply by 1.212. If sex is not provided, and the patient is female, multiply by 0.742. Results for patients <18 years of age have not been validated by the MDRD study and should be interpreted with caution. eGFR Result Interpretation:eGFR > or=60 is in the Normal RangeeGFR < 60 may mean kidney diseaseeGFR < 15 may mean kidney failure Ranges recommended by the National Kidney Foundation, http://nkdep.nih.gov eGFR Non-AA (test 39.98 mL/min/1.73 eGFR (estimated code=eGFR Non-AA) m2 Glomerular Filtration Rate) is an estimated value, calculated from the patient's serum creatinine using the MDRD equation. It is NOT the patient's actual GFR. The eGFR provides a more clinically useful measure of kidney disease than serum creatinine alone.This calculation takes sex and race into account, if the information is provided. If the race is not provided, and the patient is -[place], multiply by 1.212. If sex is not provided, and the patient is female, multiply by 0.742. Results for patients <18 years of age have not been validated by the MDRD study and should be interpreted with caution. eGFR Result Interpretation:eGFR > or=60 is in the Normal RangeeGFR < 60 may mean kidney diseaseeGFR < 15 may mean kidney failure Ranges recommended by the National Kidney Foundation, http://nkdep.nih.gov Urine Drug [id number] 12:49:29 Test Item Value Reference Range Comments Amphetamine Screen Ur (test Negative Negative code=Amphetamine Screen Ur) Barbiturate Screen Ur (test Negative Negative code=Barbiturate Screen Ur) Benzodiazepines Ur (test Negative Negative code=Benzodiazepines Ur) Cocaine Screen Ur (test Negative Negative code=Cocaine Screen Ur) U Methadone Scr (test code=U Negative Negative Methadone Scr) Opiate Screen Ur (test Negative Negative code=Opiate Screen Ur) U PCP Scrn (test code=U PCP Negative Negative Scrn) Cannabinoid Screen Ur (test Negative Negative code=Cannabinoid Screen Ur) U TCA (test code=U TCA) Negative Negative The results of all drug screen tests are only preliminary. Clinical consideration and professional judgment should be applied to any drug of abuse test result, particularly when preliminary positive results are obtained. Please order a separate confirmatory test if desired. Urinalysis with Culture, if [id number] 12:42:00 Test Item Value Reference Range Comments UA Color (test code=UA Color) STRAW Yellow UA Appear (test code=UA CLEAR Clear Appear) UA pH (test code=UA pH) 6.5 UA Spec Grav (test code=UA 1.002 1.001-1.035 Spec Grav) UA Glucose (test code=UA NEG Negative Glucose) UA Bili (test code=UA Bili) NEG Negative UA Ketones (test code=UA NEG Negative Ketones) UA Blood (test code=UA Blood) NEG Negative UA Protein (test code=UA NEG Negative Protein) UA Urobilinogen (test code=UA 0.2 mg/dL Urobilinogen) UA Nitrite (test code=UA NEG Negative Nitrite) UA Leuk Est (test code=UA Leuk NEG Negative Est) UA Micro Ind? (test code=UA Not Indicated Not Indicated Result created by rule Micro Ind?) GL_SJM_UA_MICRO_IND PT AND [id number] 07:25:00 Test Item Value Reference Range Comments PT PATIENT (test 11.6 SECONDS 9.4-12.5 code=PTP) INTERNATIONAL NORMAL 1.03 INR Unit 0.88-1.13 RATIO (test code=INR) T herapeutic range for INR is dependent upon the situation.2.0-3.0 Prophylaxis / venous thromboembolism, Treatment of DVT, Acute myocardial infarction stroke prevention, Systemic embolism prevention in fibrillation3.0-4.5 AMI recurrence prevention, Systemic embolism prevention in prosthetic heart 3.0-5.4 AMI mortality reduction THROMBOPLASTIN TIME 33.2 SECONDS 24-37.7 THERAPEUTIC RANGE FOR PARTIAL (test code=PTT) UNFRACTIONATED HEPARIN=50.5-83.6 SEC This test is not recommended to monitor low molecularweight heparin or danaparoid. Order LMWH test COLLECTION THROUGH LINES THAT HAVE BEEN PREVIOUSLY FLUSHEDWITH HEPARIN SHOULD BE AVOIDED DUE TO POSSIBLE HEPARINCONTAMINATION COMPREHENSIVE METABOLIC [id number] 07:22:00 Test Item Value Reference Range Comments [...] <50 MG 1 NORMAL code=LIPINDEX) Index/DL URINALYSIS [id number] 02:49:00 Test Item Value Reference Range Comments [...] #RBC/HPF 0-3 - CT ABD PELVIS W/O [id number] 20:06:00 Patient Name: MANDY CAZARES Unit No: [id number] EXAMS: CPT CODE: [id number] CT ABD PELVIS W/O CONT 71333 Location: T 18 CT of the abdomen [...] the lungs are clear. FLY Chawla NAME: DE[address] PHYS: Paula Vera [place], [place] [address] : 1965 AGE: 52 SEX: M LOC: B.ERS PHONE #: [phone] EXAM DATE: 07/21/2018 STATUS: REG ER FAX #: [phone] RAD #: D/C DT PAGE 1 Signed Report (CONTINUED) Patient Name: MANDY CAZARES Unit No: [id number] EXAMS: CPT CODE: [id number] CT ABD PELVIS W/O CONT 39217 <Continued> The pelvic contents are unremarkable without [...] 10.33 DLP: 582.31 Trnscrpt: 07/21/2018 (2005) RosyDAS[address] [facility] [place] NAME: [address]IC[address] PHYS: Paula [place] [address] : 1965 AGE: 52 SEX: M LOC: [facility] PHONE #: [phone] EXAM DATE: 07/21/2018 STATUS: REG ER FAX #: RAD #: D/C DT PAGE 2 Signed Report Patient Name: MANDY CAZARES Unit No: [id number] EXAMS: CPT CODE: [id number] CT ABD PELVIS W/O CONT 98020 < Continued> Orig Print D/T: S: 07/21/2018 (2008) FLY Chawla NAME: MANDY CAZARES [address] [place] [address] PHYS: Paula Vera [place] [address] : 1965 AGE: 52 SEX: M LOC: NellieERS PHONE #: [phone] EXAM DATE: 07/21/2018STATUS: REG ER FAX #: [phone] RAD # : D/C DT PAGE 3 Signed ReportCOMPREHENSIVE METABOLIC [id number] 17:37:00 Test Item Value Reference Range Comments [...] NORMAL <50 MG 1 NORMAL code=LIPINDEX) Index/DL [id number] 17:37:00 Test Item Value Reference Range Comments LIPASE (test code=LIP) 121 Unit/L 114-286 [id number] 17:37:00 Test Item Value Reference Range Comments TROPONIN-I (test < 0.015 NG/ML 0.000-0.045 An elevated troponin value alone is code=TROPI) not sufficient todiagnose a myocardial infarction. Rather, the patient'sclinical presentation (history, physical exam) and ECGshould be used in conjunction with troponin in thediagnostic evaluation of suspected myocardial infarction. Aserial sampling protocol is recommended to facilitate theidentification of temporal changes in troponin levelscharacteristic of PA. CBC W/MANUAL [id number] 17:35:00 Test Item Value Reference Range Comments [...] (test code=NRBC#) 0.00 K/mm3 0.00-0.05 COMPREHENSIVE METABOLIC [id number] 17:33:00 Test Item Value Reference Range Comments [...] NORMAL <50 MG 1 NORMAL code=LIPINDEX) Index/DL [id number] 17:33:00 Test Item Value Reference Range Comments LIPASE (test code=LIP) 121 Unit/L 114-286 [id number] 17:33:00 Test Item Value Reference Range Comments TROPONIN-I (test code=TROPI) NG/ML 0.000-0.045 - CT ABD PELVIS W/O [id number] 15:38:00 Patient Name: MANDY CAZARES Unit No: [id number] EXAMS: CPT CODE: [id number] CT ABD PELVIS W/O CONT 37413 Site ID: [id number] CLINICAL HISTORY: Abdominal pain, [...] M.D. CC: Marge GLASER Dictated Date/Time: 06/23/2018 (153) Technologist: Ryland Case CTDI: 10.01 DLP: 596.61 Trnscrpt : 06/23/2018 (153) RosyAJP6 FLY Chawla NAME: MANDY CAZARES [address] [place] [address] PHYS: Marge Cano [place] [address] : 1965 AGE: 52 SEX: M [facility] PHONE #: [phone] EXAM DATE: 06/23/2018 STATUS: REG ER FAX #: [phone] RAD #: D/C DT PAGE 1 Signed Report Patient Name: MANDY CAZARES Unit No: [id number] EXAMS: CPT CODE: [id number] CT ABD PELVIS W/O CONT 37458 <Continued&gt ; Orig Print D/T: S: 06/23/2018 (1548) FLY Chawla NAME: DE[address] PHYS: LUIS WaldenMarge GLASER [place] [address] : 1965 AGE: 52 SEX: M LOC: [facility] PHONE #: [phone] EXAM DATE : 06/23/2018 STATUS: REG ER FAX #: [phone] RAD #: D/C DT PAGE 2 Signed ReportCOMPREHENSIVE METABOLIC [id number] 15:10:00 Test Item Value Reference Range Comments [...] NORMAL <50 MG 1 NORMAL code=LIPINDEX) Index/DL [id number] 15:10:00 Test Item Value Reference Range Comments LIPASE (test code=LIP) 134 Unit/L 114-286 CBC W/AUTO [id number] 14:51:00 Test Item Value Reference Range Comments [...] # (test code=NRBC#) 0.00 K/mm3 0.00-0.05 URINALYSIS [id number] 14:14:00 Test Item Value Reference Range Comments [...] /LPF NONE UA RFLX MICR CULT IF [id number] 01:11:00 Test Item Value Reference Range Comments [...] Indication for Culture: OtherOther Indication: FLANK PAINPROTHROMBIN [id number] 01:10:00 Test Item Value Reference Range Comments [...] with Food and Drug Administrationrecommendations. THROMBOPLASTIN TIME [id number] 01:10:00 Test Item Value Reference Range Comments THROMBOPLASTIN TIME PARTIAL 24.5 SECONDS 23.4-37.0 Therapeutic Range for (test code=PTT) Heparin EFFECTIVE 09/21/12 Heparin IU/mL aPTT Seconds0.3 64.30.7 88.8 CBC W/AUTO [id number] 01:01:00 Test Item Value Reference Range Comments [...] 3/uL 0.0-0.1 - CT ABD PELVIS W/O [id number] 00:23:00 FAX: Josr Sanchez NP [phone] [place]: St: PRE Name: MANDY CAZARES : 1965 Age/S: 52/M [address] Unit: [id number] Loc: [place]DR[place] [address] Phys: Josr Sanchez NP Acct: [id number] Dis Date: Status: PRE ER PHONE #: [phone] Exam Date: 04/20/2018 0005 FAX #: [phone] Reason: BILATERAL FLANK PAIN EXAMS: CPT CODE: [id number] CT ABD PELVIS W/O CONT 34551 EXAM: CT ABDOMEN AND PELVIS WITHOUT CONTRAST. [...] Signed Report (CONTINUED) FAX: Josr Sanchez NP [phone] [place]: St: PRE Name: MANDY CAZARES [facility] Aj : 1965 Age/S: 52/M [address] Unit: [id number] Loc: [place] [address] Phys: Josr Sanchez NP Acct: [id number] Dis Date : Status: PRE ER PHONE #: [phone] Exam Date: 04/20/2018 0005 FAX #:[phone] Reason: BILATERAL FLANK PAIN EXAMS: CPT CODE: [id number] CT ABD PELVIS W/O CONT 97436 <Continued> adjustment of the mA and or kV according to patient size and/or use of iterative reconstruction technique. at 0023 Reported and signed by: Jill Keating MD CC: Josr Sanchez NP Technologist: Yadira Villafana Trnscrd Dt/Tm: 04/20/2018 (0023) [id number] Orig Print D/T: S : 04/20/2018 (0026 PAGE 2 Signed Report- CT ABD PELVIS [id number] 14:41:00 Patient Name: MANDY CAZARES Unit No: [id number] EXAMS: CPT CODE: [id number] CT ABD PELVIS W/CONT 13160 Site ID: [id number] CLINICAL HISTORY: Abdominal and [...] CC: Sheron Couch MD Dictated Date/Time: 04/06/2018 (1449) Technologist: Devin Solomon CTDI: 11.97 DLP: 668.50 Trnscrpt : 04/06/2018 (1441) [email or web address] [facility] JONATAN Musee NAME: DE[address]OR[address] PHYS: Sheron Mills MD [place] [address] : 1965 AGE: 52 SEX: M LOC: B[facility] PHONE #: [phone] EXAM DATE: 04/06/2018 STATUS: REG ER FAX #: [phone] RAD # : D/C DT PAGE 1 Signed Report Patient Name: MANDY CAZARES Unit No: [id number] EXAMS: CPT CODE: [id number] CT ABD PELVIS W /CONT 42006 <Continued> Orig Print D/T: S: 04/06/2018 ( 9084) [facility] JONATAN Chawla NAME: DEBOR[address] PHYS: Sheron [place] [address] : 1965 AGE: 52 SEX: M LOC: B.ERS PHONE #: [phone] EXAM DATE: 04/06/2018 STATUS: REG ER FAX #: [phone] RAD #: D/C DT PAGE 2 Signed ReportURINALYSIS [id number] 14:23:00 Test Item Value Reference Range Comments [...] (test code=MUCU) RARE /LPF NONE HEPATIC FUNCTION [id number] 14:06:00 Test Item Value Reference Range Comments [...] 1 NORMAL <50 MG Index/DL 1 NORMAL [id number] 14:06:00 Test Item Value Reference Range Comments LIPASE (test code=LIP) 271 Unit/L 114-286 [id number] 14:06:00 Test Item Value Reference Range Comments TROPONIN-I (test < 0.015 NG/ML 0.000-0.045 An elevated troponin value alone is code=TROPI) not sufficient todiagnose a myocardial infarction. Rather, the patient'sclinical presentation (history, physical exam) and ECGshould be used in conjunction with troponin in thediagnostic evaluation of suspected myocardial infarction. Aserial sampling protocol is recommended to facilitate theidentification of temporal changes in troponin levelscharacteristic of PA. CBC W/O [id number] 13:47:00 Test Item Value Reference Range Comments [...] (test code=MPV) 10.0 fL 7.6-10.4 CHEMISTRY 7 [id number] 13:39:00 Test Item Value Reference Range Comments [...] POC (test code=GFRBED) 36 56-130 CHEMISTRY 7 [id number] 13:39:00 Test Item Value Reference Range Comments [...] 56-130 (test code=GFRBED) - XR CHEST 1 [id number] 13:27:00 FAX: Sheron Garcia MD [phone] [place]: [address] St: PRE Patient Name: MANDY CAZARES Unit No: [id number] EXAMS: CPT CODE : [id number] XR CHEST 1 V 86584 - XR CHEST 1 V INDICATION:Abdominal pain, vomiting, headache LOCATION: T18 Partial inspiration. The lungs are clear. The cardiomediastinal silhouette is within normal limits. Old left rib fractures noted. IMPRESSION: Partial inspiration. No active disease. at 1327 Reported and signed by: Bhavin Valencia D.O. CC: Sheron Couch MD Dictated Date/Time: 04/06/2018 (7618)Technologist: Jcarlos Merlos Transcribed Date/Time: 04/06/2018 (6901) By: Lyle Orig Print D/T: S: 04/06/2018 (2429) LUIS M Chawla NAME: MANDY CAZARES [address] [place] [address] PHYS: [email or web address] - Sheron Couch MD [place], [place] [address] : 1965 AGE: 52 SEX: M LOC: B.ERS PHONE #: [phone] EXAM DATE: 04/06/2018 STATUS: PRE ER FAX #: [phone] RAD NO: DC Dt: PAGE 1 Signed Report
--- OUTSIDE RECORDS SUMMARY | 2019-01-23 06:54 | XMS REPORT | Summary of Care ---
:1965 Author Organization [facility] - Health Address [address] [place] [address] Care Team Providers Name Role Phone Pcp, Patient Does Not Have A Primary Care Provider J Luis Lopez Insurance Hmo Reason for Visit Reason Comments Transition Of Care Encounter Details Date Type Department Care Team Description 11/03/2018 Transition of Care [facility] Transition Of Care [facility]- JOSSELINE [place] [address] [address] Allergies Active Allergy Reactions Severity Noted Date Comments Penicillin Hives 2018 Sulfa (Sulfonamide Other - See comments 2018 hyperventilate Antibiotics) documented as of this encounter (statuses as of 11/04/2018) Medications Medication Sig Dispensed Refills Start Date [...] as of this encounter (statuses as of 11/04/2018) Active Problems Problem Noted Date Abdominal pain 10/30/2018 documented as of this encounter (statuses as of 11/04/2018) Social History Tobacco Use Types Packs/Day Years Used Date Current Every Day Smoker 1 40 Smokeless Tobacco: Former User Alcohol Use Drinks/Week oz/Week Comments Never Alcohol [...] of this encounter Last Filed Vital Signs Not on filedocumented in this encounter Plan of Treatment Health Maintenance Due Date Last Done Comments PNEUMOCOCCAL 0-64 YEARS COMBINED SERIES (1 of 3 - 10/28/1973 PCV13) DTaP,Tdap,and Td Vaccines (1 - Tdap) 10/28/1986 COLONOSCOPY 10/28/2017 Zoster Recombinant Vaccine (SHINGRIX) (1 of 2) 10/28/2017 INFLUENZA VACCINE (#1) 2018 documented as of this encounter Results Not on filedocumented in this encounter Insurance Payer Benefit Plan / Subscriber ID Effective Phone Address Type Group Dates [employer] MEDICARE [id number] 2018-Prese Medicare Adv HEALTHCARE - COMPLETE nt O MANAGED MEDICARE documented as of this encounter
--- NOTE | 2019-01-23 12:10 | RAD REPORT ---
EXAM DESCRIPTION: Abdomen Pelvis Wo Contrast - 01/22/2019 4:58 am CLINICAL HISTORY: ABD PAIN COMPARISON: 09/20/2018 TECHNIQUE: CT of the abdomen and pelvis without IV contrast. Evaluation of the solid organs and vasc ulature is suboptimal due to lack of IV contrast. FINDINGS: Lung Bases: The visualized lung bases are clear. Bones: Minimal degenerative change of the spine. Abdomen: Liver: The liver has normal size and density. Gallbladder: Prior cholecystectomy. Spleen, Pancreas, and Adrenal Glands: The spleen, pancreas, and adrenal glands are unremarkable. Kidneys: The kidneys have normal size without evidence of hydronephrosis. No obstructing ureteral rishi culi. Exophytic left renal cystic structure is stable. Vasculature: Aortoiliac atherosclerosis. IVC is unremarkable. 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 Stomach: Moderate hiatal hernia. Other: No free intraperitoneal air. No free fluid or lymphadenopathy. Pelvis: Bladder: Urinary bladder is unremarkable. Bowel: No dilated loops of large or small bowel. Scattered diverticula of the colon. Appendix: Not identified. Pelvis: Prostate is not enlarged. IMPRESSION: 1. No acute inflammatory or obstructive process identified. 2. 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 Follow-up right lower extremity arterial duplex in 3-6 months recommended. 3. Diverticulosis without evidence of acute diverticulitis. 4. Moderate hiatal hernia. This exam was performed according to our departmental dose-optimization program, which includes autom ated exposure control, adjustment of the mA and/or kV according to patient size and/or use of iterati ve reconstruction technique. Electronically signed by: Russell Choi 01/22/2019 4:52 AM RESIDENTIAL REMODELING SUBCONTRACTOR Due to temporary technical issues with the PACS/Fluency reporting system, reports are being signed by the in house radiologist as a courtesy to ensure prompt reporting. The interpreting radiologist is f ully responsible for the content of the report.
== END 2019-01-22 05:48 | disposition home or self-care (01) ==
LOC: ER 02:04
DX: R19.7 Diarrhea, unspecified (principal); I10 Essential (primary) hypertension; N28.9 Disorder of kidney and ureter, unspecified; F17.210 Nicotine dependence, cigarettes, uncomplicated; F31.9 Bipolar disorder, unspecified; Z88.0 Allergy status to penicillin; Z88.2 Allergy status to sulfonamides; Z88.6 Allergy status to analgesic agent
CPT/HCPCS: 85025; 80048; 36415; 80076; 83690; 74176; 96360; 99284; J7040

== ENCOUNTER 2019-08-14 20:13 | Emergency (ER) | payer SELFPAY ==
--- OUTSIDE RECORDS SUMMARY | 2019-08-14 20:16 | XMS REPORT | Clinical Summary ---
:1965 Author Organization [facility] Address [address] [place] [address] Care Team Providers Name Role Phone Asked, Pcp Primary Care Provider Unavailable Allergies Active Allergy Reactions Severity Noted Date Comments Penicillin Hives 05/24/2017 Sulfa (Sulfonamide Other (See Comments) 05/24/2017 T ongue swelling Antibiotics) Medications Medication Sig Dispensed Refills Start Date End Date Status esomeprazole (NexIUM) Take 40 mg by 0 Active 40 MG capsule mouth daily before breakfast. apixaban (ELIQUIS) 5 mg Take 5 mg by 0 Active tablet mouth 2 (two) times a day. busPIRone (BUSPAR) 15 Take 15 mg by 0 Active MG tablet mouth 3 (three) times a day. escitalopram (LEXAPRO) Take 20 mg by 0 Active 20 MG tablet mouth daily. QUEtiapine (SEROquel) Take 200 mg by 0 Active 200 MG tablet mouth every morning. traZODone (DESYREL) 100 Take 100 mg by 0 Active MG tablet mouth nightly. lisinopril Take 5 mg by 0 Active (PRINIVIL,ZESTRIL) 5 mg mouth daily. tablet Active Problems Problem Noted Date Intentional drug overdose 05/25/2017 Immunizations Name Administration Dates Next Due FLUCELVAX QUAD PF 05/26/2017 Family History Medical History Relation Name [...] travel history available. 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
--- OUTSIDE RECORDS SUMMARY | 2019-08-14 20:22 | XMS REPORT | Continuity of Care Document ---
:1965 Author Organization [employer] Care Team Providers Name Role Phone [employer] Unavailable Un available Problems Problem Status Onset Classification Date Comments Sourc e Date Reported Calculus of 02/13/20 06/20/2018 [facility] gallbladder with 18 acute and chronic cholecystitis without obstruction Acute kidney 01/14/20 07/24/2018 [facility] failure with 18 tubular necrosis (L) SIDE PAIN Active 01/01/20 [facility] 18 Postprocedural 12/30/19 07/04/2018 [facility] hematoma of a 18 digestive system organ or structure following a digestive system procedure FL[facility] ABDOMINAL PAIN Active 11/27/19 [facility] 18 Acute embolism 06/01/19 08/30/2017 [place] and thrombosis of 18 Me [facility]ical right femoral Center vein Acute embolism 05/24/19 08/30/2017 [place] and thrombosis of 18 Me [facility]ical unspecified deep [address] veins of unspecified distal lower extremity LEG PAIN Active 05/24/[address] Center Acute embolism 08/30/2017 [place] and thrombosis of Me dical right popliteal Cent er vein Chronic kidney 08/30/2017 [place] disease, Medical unspecified Center Acute kidney 07/04/2018 [facility] failure, unspecified 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 Chronic embolism 06/20/2018 [facility] and thrombosis of unspecified deep veins of right lower extremity Chronic kidney 07/24/2018 [facility] disease, stage 3 (moderate) Nicotine 07/24/2018 [facility] dependence, cigarettes, uncomplicated Acute gastritis 06/20/2018 [facility] without bleeding Constipation, 06/17/2018 [facility] unspecified Hyperkalemia 06/20/2018 [facility] terminal gauger 07/24/2018 [facility] (current) use of anticoagulants 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/24/2018 [facility] biliary tract (disorder) Bipolar disorder Active Problem 07/24/2018 [facility] (disorder) Chronic Active Problem 07/24/2018 [facility] cholecystitis with calculus (disorder) Chronic kidney Active Problem 07/24/2018 [place] disease Medical (disorder) Center, [facility] 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/24/2018 [facility] function Medical (finding) Center,[facility] Deep venous Active Problem 07/24/2018 [facility] thrombosis (disorder) 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) Pr dical [place], [place] Suicidal 07/04/2018 [facility] Chronic embolism 07/04/2018 [facility] and thrombosis of unspecified deep veins of unspecified lower extremity Other ascites 07/04/2018 [facility] Other infectious 07/04/2018 [facility] disease Right upper 07/04/2018 [facility] quadrant pain Cyst of kidney, 07/04/2018 [facility] acquired Other surgical 07/04/2018 [facility] procedures as the cause of abnormal reaction of the patient, or of later complication, without mention of misadventure at the time of the procedure Bipolar disorder, 07/24/2018 [facility] unspecified Gastro-esophageal 07/24/[address] [facility] reflux disease without esophagitis Diaphragmatic 07/04/2018 [facility] hernia without obstruction or gangrene Acquired absence 07/24/2018 [facility] of other specified parts of digestive tract Acidosis 07/24/2018 [facility] Hypertensive 07/24/2018 [facility] chronic kidney disease with stage 1 through stage 4 chronic kidney disease, or unspecified chronic kidney disease Hypocalcemia 07/24/2018 [facility] Anemia, 07/24/2018 [facility] unspecified Dehydration 07/24/2018 [facility] Hypovolemia 07/24/2018 [facility] Hematuria, 07/24/2018 [facility] unspecified Personal history 07/24/2018 [facility] of other venous thrombosis and embolism ACUTE Active [facility] st CHOLECYSTITIS CALCULUS OF Active [facility] GALLBLADDER W CHRONIC CHOLEC OTHER ASCITES Active [facility] OTHER SPECIFIED Active [facility] DISORDERS OF PERITONEUM ACUTE KIDNEY Active [facility] FAILURE, UNSPECIFIED UNSPECIFIED Active [facility] KIDNEY FAILURE Medications Medication Details Route Status Patient Ordering Order Source Instructions Provider Date Flomax Notes: (Same Inactive As: Flomax) 2017 [facility] "Do Not Crush" apixaban 2.5 MG 2.5 mg = 1 tab, Active Oral Tablet PO, BID, # 60 2018 [facility] [Eliquis] tab, 0 Refill(s), Pharmacy: [facility]/pharmacy #[id number] Folic Acid 1 MG 1 mg = 1 tab, Active Oral Tablet PO, Daily, # 30 2018 [facility] tab, 3 Refill(s), Pharmacy: [facility]/pharmacy #[id number] oxybutynin 5 mg 5 mg = 1 tab, Active oral tablet, PO, Daily, # 30 2018 [facility] extended release tab, 1 Refill(s), Pharmacy: [facility]/pharmacy #[id number] ferrous sulfate 325 mg = 1 tab, Active 325 MG Oral PO, BID, # 60 2018 [facility] Tablet tab, 2 Refill(s), Pharmacy: [facility]/pharmacy #[id number] QUEtiapine 100 300 mg = 3 tab, Active H mg oral tablet PO, Bedtime, 0 2018 [facility] Refill(s) Potassium Notes: (Same Inactive Chloride 1.33 as: K-Tania) 2018 [facility] st MEQ/ML Oral With food and Solution full glass of water Acetaminophen Notes: Do not No Longer 300 MG / Codeine exceed 4gm/day Active 2017 [facility] Phosphate 30 MG of Oral Tablet acetaminophen. [Tylenol with (Same as: Codeine #3] Tylenol with Codeine # 3) ferrous sulfate Notes: Give No Longer with food. iron Active 2017 [facility] elemental [id number] as ferrous sulfate Dose=___mg elemental iron Folic Acid Notes: (Same No Longer as: Folvite) Active 2017 [facility] Seroquel Notes: (Same No Longer as: SEROquel) Active 2017 [facility] zolpidem Notes: (Same No Longer As: Ambien) Active 2017 [facility] Nicotine Notes: (Same No Longer as: Habitrol) Active 2017 [facility] "Remove old patch before application of new patch" WASTE: F/P - P Waste Black; E - P Waste Black sodium Notes: (sodium Inactive bicarbonate 150 bicarb 8.4% (1 2017 [facility] mEq + Dextrose mEq/ml) 50 ml 5% in Water IV VL) 850 mL D5W 1,000 mL + 1,000 mL, Rate: No Longer sodium acetate 2 125 ml/hr, Active 2017 [facility] mEq/mL Infuse over: intravenous 8.6 hr, Route: solution 150 mEq IV, Dosing Weight 84.6 kg, Total Volume: 1,075, Start date: 01/01/18 11:55:00 CDT, Duration: 30 day, Stop date: 01/31/18 11:54:00 NIGHT SHIFT MANAGER, 2.06, m2 sodium Notes: (sodium Inactive bicarbonate 150 bicarb 8.4% (1 2017 [facility] mEq + Dextrose mEq/ml) 50 ml 5% in Water IV VL) 850 mL Protonix Notes: Tablet No Longer should not be Active 2017 [facility] chewed or crushed. (Same as: Protonix) Lexapro Notes: (Same No Longer as: Lexapro) Active 2017 [facility] Flagyl Notes: (Same No Longer as: Flagyl) Active 2017 [facility] Avoid alcohol. Trazodone Notes: (Same No Longer As: Desyrel) Active 2017 [facility] sodium 1,000 mL, Rate: Inactive bicarbonate 8.4% 100 ml/hr, 2018 [facility] additive 150 mEq Infuse over: 10 + D5W 1000 mL hr, Route: IV, Dosing Weight 84.6 kg, Total Volume: 1,000, Start date: 01/01/18 9:10:00 CDT, Duration: 30 day, Stop date: 01/31/18 9:09:00 NIGHT SHIFT MANAGER, 2.06, m2 Eliquis Notes: Same as: No Longer Eliquis Active 2017 [facility] Buspirone Notes: (Same No Longer As: BuSpar) Active 2017 [facility] Lisinopril Notes: (Same Inactive as: Prinivil, 2017 [facility] Zestril) Trazodone Notes: (Same No Longer Hydrochloride 50 As: Desyrel) Active 2018 [facility] Oral Tablet Melatonin Notes: (Same No Longer as: Melatonin) Active 2017 [facility] Oxycodone Notes: (Same No Longer Hydrochloride 5 as: Roxicodone) Active 2017 [facility] Oral Tablet Acetaminophen Notes: Do not No Longer exceed [address] [facility] gm/day. (Same as: Tylenol) Morphine Notes: (Same No Longer as:MORPhine Active 2017 [facility] Sulfate) Glucagon 1 mg, Route: No Longer IM, Drug form: Active 2017 [facility] PDR/INJ, PRN, Dosing Weight 86.364, kg, PRN Blood Glucose Results, Start date: 12/31/17 23:30:00 CDT, Duration: 30 day, Stop date: 01/30/18 22:29:00 NIGHT SHIFT MANAGER Dextrose 50% 25 gm, 50 mL, No Longer Syringe Route: IVP, Active 2017 [facility] Drug Form: INJ, Dosing Weight 86.364, kg, PRN, PRN Blood Glucose Results, Start date: 12/31/17 23:30:00 CDT, Duration: 30 day, Stop date: 01/30/18 22:29:00 NIGHT SHIFT MANAGER Ondansetron Notes: (Same No Longer as: Zofran) Active 2017 [facility] MEDICATION WASTE Product Size: 4 mg Product Wasted: ___ mg normal saline 1,000 mL, Rate: No Longer 0.9% IV 1,000 mL 150 ml/hr, Active 2017 [facility] Infuse over: 6.7 hr, Route: IV, Dosing Weight 86.364 kg, Total Volume: 1,000, Start date: 12/31/17 23:30:00 CDT, Duration: 30 day, Stop date: 01/30/18 23:29:00 NIGHT SHIFT MANAGER, 2.09, m2 NS (Bolus) IV 500 mL, 500 Inactive ml/hr, Infuse 2017 [facility] Over: 1 hr, Route: IV, 500, Drug form: INJ, ONCE, Priority: STAT, Dosing Weight 86.364 kg, Start date: 12/31/17 21:05:00 CDT, Stop date: 12/31/17 21:05:00 CDT Phenergan Notes: Do not Inactive give IV push. 2017 [facility] (Same as: Phenergan) Tylenol Notes: Do not Inactive exceed [address] [facility] gm/day. (Same as: Tylenol) Saline Flush Notes: (Same No Longer 0.9% as: BD Active 2017 [facility] Posiflush) Tramadol Notes: Not to No Longer exceed Active 2017 [facility] 400mg/day. (Same As: Ultram) Protonix Notes: Tablet No Longer should not be Active 2017 [facility] chewed or crushed. (Same as: Protonix) Lexapro Notes: (Same No Longer as: Lexapro) Active 2017 [facility] Buspar Notes: (Same No Longer As: BuSpar) Active 2017 [facility] influenza virus Notes: (Same No Longer H vaccine, as: Fluzone Active 2017 [facility] inactivated Quadrivalent, Fluarix Quadrivalent) For 3 years of age and older (0.5 mL IM) Shake well before use zolpidem Notes: (Same No Longer As: Ambien) Active 2017 [facility] Seroquel Notes: (Same No Longer as: SEROquel) Active 2017 [facility] Metronidazole Notes: (Same Inactive as: Flagyl) 2017 [facility] Avoid alcohol. cefepime Notes: (Same Inactive As: Maxipime) 2017 [facility] MEDICATION WASTE Product Size: 1000 mg Product Wasted: ___ mg Sodium Chloride 1,000 mL, Rate: No Longer 0.9% IV 1,000 mL 100 ml/hr, Active 2017 [facility] Infuse over: 10 hr, Route: IV, Dosing Weight 83.636 kg, Total Volume: 1,000, Start date: 12/12/17 18:44:00 CDT, Duration: 30 day, Stop date: 01/11/18 18:43:00 CDT, 2.05, m2 Trazodone Notes: (Same No Longer As: Desyrel) Active 2017 [facility] Morphine Notes: (Same No Longer as:MORPhine Active 2017 [facility] Sulfate) Ondansetron Notes: (Same No Longer as: Zofran) Active 2017 [facility] MEDICATION WASTE Product Size: 4 mg Product Wasted: ___ mg Acetaminophen Notes: Do not No Longer exceed [address] [facility] gm/day. (Same as: Tylenol) NS (Bolus) IV 1,000 mL, 2,000 Inactive H ml/hr, Infuse 2017 [facility] Over: 1 hr, Route: IV, ONCE, Priority: STAT, Dosing Weight 83.636 kg, Start date: 12/12/17 17:31:00 CDT, Stop date: 12/12/17 17:31:00 CDT Acetaminophen 2 tab, PO, Q6H, Active 300 MG / Codeine PRN Pain, # [address] [facility] Phosphate 30 MG tab, 0 Oral Tablet Refill(s) [Tylenol with Codeine #3] pantoprazole 40 40 mg = 1 tab, Active H MG Enteric PO, Daily, # 30 2018 [place] Coated Tablet tab, 0 [Protonix] Refill(s) Escitalopram 10 10 mg = 1 tab, Active H MG Oral Tablet PO, Daily, # 30 2018 [facility] [Lexapro] tab, 0 Refill(s) Escitalopram 20 20 mg = 1 tab, No Longer MG Oral Tablet PO, Daily, # 30 Active 2018 [facility] [Lexapro] tab, 0 Refill(s) zolpidem 5 mg 5 mg = 1 tab, Active oral tablet PO, Bedtime, 0 2018 [facility] Refill(s) Ondansetron 4 mg, Route: Inactive IVP, Drug form: 2017 [facility] INJ, ONCE, Dosing Weight 83.636, kg, Priority: STAT, Start date: 12/12/17 16:33:00 CDT, Stop date: 12/12/17 16:33:00 CDT Morphine 4 mg, Route: Inactive IVP, ONCE, 2017 [facility] Dosing Weight 83.636, kg, Priority: STAT, Start date: 12/12/17 16:33:00 CDT, Stop date: 12/12/17 16:33:00 CDT Saline Flush Notes: (Same No Longer 0.9% as: BD Active 2017 [facility] Posiflush) Seroquel Notes: (Same Inactive as: SEROquel) 2017 [facility] Acetaminophen 2 tab, PO, Q6H, No Longer 300 MG / Codeine PRN Pain Score Active 2017 [facility] Phosphate 30 MG 6-10, X 7 day, Oral Tablet # 50 tab, 0 [Tylenol with Refill(s) Codeine #3] Lisinopril Notes: (Same Inactive as: Prinivil, 2017 [facility] Zestril) Nexium 40 mg, Route: Inactive PO, Daily, 2017 [facility] Dosing Weight 90, kg, Start date: 12/01/17 9:00:00 CDT, Duration: 30 day, Stop date: 12/30/17 9:00:00 CDT Buspar Notes: (Same Inactive As: BuSpar) 2017 [facility] Acetaminophen Notes: Do not Inactive 300 MG / Codeine exceed 4gm/day 2017 [facility] Phosphate 30 MG of Oral Tablet acetaminophen. [Tylenol with (Same as: Codeine #3] Tylenol with Codeine # 3) glycopyrrolate Route: IV, Drug Inactive (ANES) form: INJ, 2017 ONCE, Stop date: 11/30/17 14:32:00 CDT neostigmine Route: IV, Drug Inactive (ANES) form: INJ, 2017 ONCE, Stop date: 11/30/17 14:32:00 CDT ondansetron Route: IV, Drug Inactive (ANES) form: INJ, 2017 ONCE, Stop date: 11/30/17 14:32:00 CDT ePHEDrine (ANES) Route: IV, Drug Inactive form: INJ, 2017 [facility] ONCE, Stop date: 11/30/17 14:04:00 CDT fentaNYL (ANES) Route: IV, Drug Inactive form: INJ, 2017 ONCE, Stop date: 11/30/17 13:59:00 CDT lidocaine (ANES) Route: IV, Drug Inactive form: INJ2017 ONCE, Stop date: 11/30/17 13:59:00 CDT morphine Sulfate Route: IV, Drug Inactive (ANES) form: INJ, 2017 [facility] ONCE, Stop date: 11/30/17 13:59:00 CDT midazolam (ANES) Route: IV, Drug Inactive form: SOLN, 2017 [facility], Stop date: 11/30/17 13:59:00 CDT propofol (ANES) Route: IV, Drug Inactive form: INJ, 2017 ON[facility], Stop date: 11/30/17 13:59:00 CDT dexamethasone Route: IV, Drug Inactive H (ANES) form: INJ, 2017 ONCE, Stop date: 11/30/17 13:59:00 CDT rocuronium Route: IV, Drug Inactive (ANES) form: INJ, 2017 ONCE, Stop date: 11/30/17 13:59:00 CDT Lactated Ringers Route: IV, Inactive Injection IV Total Volume: 2017 [place] (ANES) 1000 mL 1,000, Start date: 11/30/17 12:44:00 CDT, Stop date: 11/30/17 13:44:00 CDT Ondansetron Notes: (Same No Longer as: Zofran) Active 2017 [facility] MEDICATION WASTE Product Size: 4 mg Product Wasted: ___ mg Naloxone Notes: Same as No Longer Narcan Active 2017 [facility] Flumazenil Notes: (Same No Longer as: Romazicon) Active 2017 [facility] Morphine Notes: (Same No Longer as:MORPhine Active 2017 [facility] Sulfate) Hydromorphone Notes: Same as: No Longer Dilaudid Active 2017 [facility] Hydralazine Notes: (Same No Longer as: Apresoline) Active 2017 [facility] t Push over 5 minutes Metoprolol Notes: (Same No Longer as: Lopressor) Active 2017 [facility] Push over 2 minutes Calcium Chloride 1,000 mL, Rate: No Longer 11/30 0.0014 MEQ/ML / 25 ml/hr, Active 2017 [facility] ast Potassium Infuse over: 40 Chloride 0.004 hr, Route: IV, MEQ/ML / Sodium Dosing Weight Chloride 0.103 90 kg, Total MEQ/ML / Sodium Volume: 1,000, Lactate 0.028 Start date: MEQ/ML 11/30/17 Injectable 12:33:00 CDT, Solution Stop date: 12/01/17 9:57:00 CDT, 2.12, m2 Lactated Ringers 1,000 mL, Rate: No Longer 11/30 IV 1,000 mL 40 ml/hr, Active 2017 [facility] Infuse over: 25 hr, Route: IV, Dosing Weight 90 kg, Total Volume: 1,000, Start date: 11/30/17 12:22:00 CDT, Stop date: 12/01/17 9:57:00 CDT, 2.12, m2 Pepcid Notes: (Same No Longer as: Pepcid) Can Active 2017 [place] be dilute in 5-10cc NS IVP: Slow IV push over at least 2 minutes. Buspar 15 mg, PO, Active Daily, [address] [facility] Refill(s) lisinopril 5 mg 5 mg = 1 tab, No Longer oral tablet PO, Daily, # 30 Active 2017 [facility] tab, 0 Refill(s) Aspirin Notes: Take Inactive with food. 2017 [facility] cefepime Notes: (Same No Longer As: Maxipime) Active 2017 [facility] MEDICATION WASTE Product Size: 1000 mg Product Wasted: ___ mg Bentyl Notes: (Same No Longer as: Bentyl) Active 2017 [facility] Calcium Notes: WASTE: No Longer Gluconate F/P - Sink; E - Active 2017 [facility] Magnesium Oxide Notes: (Same No Longer H as: Mag-Ox 400) Active 2017 [facility] Magnesium oxide [id number] elemental magnesium Dose=____mg magnesium oxide (___mg elemental magnesium) Magnesium Notes: WASTE: No Longer Sulfate F/P - Sink; E - Active 2017 [facility] Potassium Notes: Infuse No Longer Chloride at a rate of [address] [facility] st mEq/hr. (Same as: KCL) potassium Notes: (Same No Longer phosphate-sodium as: Phos-NaK) Active 2017 [facility] phosphate 250 Each 1.5 gm pkt mg-280 mg-160 mg has 250mg oral powder for phosphorous. reconstitution Mix w/2.5oz water and stir. potassium Notes: (Same No Longer phosphate as: K Active 2017 [facility] Phosphate.) Do not infuse phosphorous concurrently in the same line as TPN or IVF that contains calcium. For double lumen central lines, phosphorous may be infused in a separate lumen from TPN. 1 mMol phoshate has 1.47 mEq potassium Infuse over 4 hours sodium phosphate Notes: Infuse No Longer over 4 hour. Do Active 2017 [facility] t not infuse phosphorous concurrently in the same line as TPN or IVF that contains calcium. For double lumen central lines, phosphorous may be infused in a separate lumen from TPN. Docusate Sodium Notes: (Same No Longer H 100 MG Oral as: Colace) (Do Active 2017 [facility] Capsule [Colace] Not Crush) Hydralazine Notes: (Same No Longer as: Apresoline) Active 2017[facility] t Push over 5 minutes Morphine Notes: (Same No Longer as:MORPhine Active 2017 [facility] Sulfate) Sodium Chloride 1,000 mL, Rate: No Longer 0.9% IV 1,000 mL 125 ml/hr, Active 2017 [facility] Infuse over: 8 hr, Route: IV, Dosing Weight 90.909 kg, Total Volume: 1,000, Start date: 11/29/17 16:05:00 CDT, Duration: 30 day, Stop date: 12/29/17 16:04:00 CDT, 2.13, m2 Ondansetron Notes: (Same No Longer as: Zofran) Active 2017 [facility] MEDICATION WASTE Product Size: 4 mg Product Wasted: ___ mg Acetaminophen Notes: Max No Longer acetaminophen = Active 2017 [facility] 4000mg/day (4 gm/day). (Same as: Tylenol) Alprazolam 0.25 Notes: With No Longer MG Oral Tablet food or milk Active 2017 [facility] [Xanax] (Same as: Xanax) tramadol Notes: Not to No Longer hydrochloride 50 exceed Active [address] [facility] Oral Tablet 400mg/day. (Same As: Ultram) Gas-X Ultra Notes: (Same No Longer Softgels as: Mylicon) Active 2017 [facility] Protonix Notes: Tablet No Longer should not be Active 2017 [facility] chewed or crushed. (Same as: Protonix) Flagyl 500 mg, Route: Inactive IVPB, ONCE, 2017 [facility] Dosing Weight 90.909, kg, Priority: STAT, Start date: 11/29/17 13:16:00 CDT, Stop date: 11/29/17 13:16:00 CDT, ABX Indication: Intra-abdominal Infection Zofran 4 mg, Route: Inactive IVP, Drug form: 2017 [facility] INJ, ONCE, Dosing Weight 90.909, kg, Priority: STAT, Start date: 11/29/17 13:00:00 CDT, Stop date: 11/29/17 13:00:00 CDT Morphine 4 mg, Route: Inactive IVP, ONCE, 2017 [facility] Dosing Weight 90.909, kg, Priority: STAT, Start date: 11/29/17 13:00:00 CDT, Stop date: 11/29/17 13:00:00 CDT Saline Flush Notes: (Same No Longer 0.9% as: BD Active 2017 [facility] Posiflush) Lexapro Notes: (Same No Longer as: Lexapro) Active 2017 [facility] Buspar Notes: (Same No Longer As: BuSpar) Active 2017 [facility] quetiapine Notes: (Same Inactive as: SEROquel) 2017 [facility] Hydralazine Notes: (Same Inactive Hydrochloride 25 as: Apresoline) 2018 [facility] Oral Tablet May interfere w/enteral feedings Take With Food Albuterol 0.83 Notes: SEE RT Inactive MG/ML Inhalant DOCUMENTATION 2017 [facility] Solution (Same as: Proventil) Kayexalate Notes: (sodium Inactive polystyrene 2018 [facility] sulfonate 15 gm/60 ml DEE) Shake well before use. (Same as: Kayexalate, SPS) quetiapine Notes: (Same Inactive as: SEROquel) 2017 [facility] Escitalopram Notes: (Same Inactive as: Lexapro) 2017 [facility] cefepime Notes: (Same No Longer As: Maxipime) Active 2017 [facility] MEDICATION WASTE Product Size: 1000 mg Product Wasted: ___ mg quetiapine 200 200 mg = 1 tab, No Longer MG Oral Tablet PO, Daily, in Active 2017 [facility] [Seroquel] the morning, 0 Refill(s) quetiapine 400 400 mg = 1 tab, No Longer MG Oral Tablet PO, Bedtime, 0 Active 2017 [facility] [Seroquel] Refill(s) Trazodone 100 mg, PO, Active Bedtime, PRN 2017 [facility] Sleep, 0 Refill(s) Nexium 40 mg, PO, No Longer Daily, [address] [facility] Refill(s) Lisinopril 5 mg, PO, No Longer Daily, [address] [facility] Refill(s) Eliquis 5 mg, PO, BID, No Longer 0 Refill(s) Active 2017 [facility] Buspar 15 mg, PO, No Longer Daily, [address] [facility] Refill(s) Escitalopram 20 20 mg = 1 tab, No Longer MG Oral Tablet PO, Daily, 0 Active 2017 [facility] [Lexapro] Refill(s) Solu-Medrol 60 mg, Route: Inactive IVP, Drug form: 2017 [facility] INJ, ONCE, Dosing Weight 92.443, kg, Priority: STAT, Start date: 11/27/17 14:03:00 CDT, Stop date: 11/27/17 14:03:00 CDT Benadryl 25 mg, 1 tab, No Longer Route: PO, Drug Active 2017 [facility] form: TAB, Q8H, Dosing Weight 92.443, kg, PRN Allergic reaction, Priority: STAT, Start date: 11/27/17 14:03:00 CDT, Duration: 30 day, Stop date: 12/27/17 14:02:00 CDT Bentyl Notes: (Same No Longer as: Bentyl) Active 2017 [facility] Alprazolam 0.25 Notes: With No Longer MG Oral Tablet food or milk Active 2017 [place] [facility] [Xanax] (Same as: Xanax) Gas-X Ultra Notes: (Same No Longer Softgels as: Mylicon) Active 2017 [facility] Docusate Sodium Notes: (Same No Longer H 100 MG Oral as: Colace) (Do Active 2017 [facility] Capsule [Colace] Not Crush) Hydralazine /=90 No Long[address] 2017 [facility] tramadol Notes: Not to No Longer hydrochloride 50 exceed Active [address] MG Oral Tablet 400mg/day. (Same As: Ultram) Morphine Notes: (Same No Longer as:MORPhine Active 2017 [facility] Sulfate) Sodium Chloride 1,000 mL, Rate: No Longer 0.9% IV 1,000 mL 125 ml/hr, Active 2017 [facility] Infuse over: 8 hr, Route: IV, Dosing Weight 92.443 kg, Total Volume: 1,000, Start date: 11/27/17 12:37:00 CDT, Duration: 30 day, Stop date: 12/27/17 12:36:00 CDT Ondansetron Notes: (Same No Longer as: Zofran) Active 2017 [facility] MEDICATION WASTE Product Size: 4 mg Product Wasted: ___ mg Acetaminophen Notes: Max No Longer acetaminophen = Active 2017 [facility] [facility] 4000mg/day (4 gm/day). (Same as: Tylenol) Protonix Notes: For IV No Longer push Active 2017 [facility] reconstitute with 10 ml 0.9% sodium chloride and push over 2 minutes. (Same as: Protonix) Levaquin Notes: (Same Inactive as:Levaquin) 2017 [facility] Flagyl Notes: (Same Inactive as: Flagyl) 2017 [facility] Avoid alcohol. Cipro Notes: Do not Inactive refrigerate 2017 [facility] Morphine 4 mg, Route: Inactive IVP, ONCE, 2017 [facility] Dosing Weight 92.443, kg, Priority: STAT, Start date: 11/27/17 11:33:00 CDT, Stop date: 11/27/17 11:33:00 CDT Visipaque 320 100 mL, Route: Inactive mg/mL injectable IVP, Dosing 2018 [facility] theast solution Weight 92.443, kg, ONCALL, GFR </= 45 mL/min, STAT, Start date: 11/27/17 7:59:00 CDT, Duration: 1 doses or times Zofran 4 mg, Route: Inactive IVP, Drug form: 2018 [place], ONCE, Dosing Weight 92.443, kg, Priority: STAT, Start date: 11/27/17 6:21:00 CDT, Stop date: 11/27/17 6:21:00 CDT Morphine 4 mg, Route: Inactive IVP, ONCE, 2017 [facility] Dosing Weight 92.443, kg, Priority: STAT, Start date: 11/27/17 6:21:00 CDT, Stop date: 11/27/17 6:21:00 CDT Sodium Chloride 1,000 mL, 1000 Inactive 0.9% (Bolus) IV ml/hr, Infuse 2017 [place] Over: 1 hr, Route: IV, 1,000, Drug form: INJ, ONCE, Priority: STAT, Dosing Weight 92.443 kg, Start date: 11/27/17 3:53:00 CDT, Stop date: 11/27/17 3:53:00 CDT Trazodone Notes: (Same No Longer As: Desyrel) Active 2017 [facility] {42 (rivaroxaban 1 tab, PO, No Longer [place] 15 MG Oral BID-Meals, Take Active 2018 [facility] Tablet 15 mg tablets Center [Xarelto]) / 9 twice daily (rivaroxaban 20 with food for MG Oral Tablet 21 days. [Xarelto]) } Beginning [Xarelto 22,take one 20 Kit] mg tablet daily with food for the remainder of therapy., X 30 day, # 1 pkt, 0 Refill(s) Allergies, Adverse Reactions, Alerts Substance Category Reaction Severity Reaction Status Date Comments S ource type Reported sulfa drugs Assertion Drug Active [facility] allergy [place] penicillin Assertion Drug Active [facility] allergy [place] quinolone Assertion Drug Active [facility] antibiotics allergy [place] Food Tomatoes Assertion Drug Active [facility] allergy [place] Immunizations No Data Provided for This Section Results Order Name Results Value Reference Date Interpretation Comments Pam rce Range ELECTROLYT AGAP 8.5 10.0 - 01/04 ES 20.0 [place] ELECTROLYT eGFR 42 01/04 Result Comment: The [facility] eGFR is calculated using the CKD-EPI formula. In most young, healthy individuals the eGFR will be >90 mL/min/1.73m2 . The eGFR declines with age. An eGFR of 60-89 may be normal in some populations, particularly the elderly, for whom the CKD-EPI formula has not been extensively validated. Use of the eGFR is not recommended in the following populations:< br/>
Mohini viduals with unstable creatinine concentration s, including patients and those with serious co-morbid conditions.<b r/>
Patie nts with extremes in muscle mass or diet.

The data above are obtained from the National Kidney Disease Education Program (NKDEP) which additionally recommends that when the eGFR is used in patients with extremes of body mass index for purposes of drug dosing, the eGFR should be multiplied by the estimated BMI. ELECTROLYT Calcium Lvl 7.2 8.5 - 10.5 01/04 [facility] ELECTROLYT Creatinine 1.85 0.50 - 01/04 ES Lvl 1.40 /2017 [place] ELECTROLYT Sodium Lvl 142 135 - 145 01/04 [place] ELECTROLYT Potassium 3.5 3.5 - 5.1 01/04 ES Lvl [place] ELECTROLYT Chloride Lvl 105 95 - 109 01/04 [place] ELECTROLYT CO2 32 24 - 32 01/04 [place] ELECT[facility]OLYT Glucose Lvl 90 70 - 99 01/04 [place] ELECTROLYT BUN 35 7 - 22 01/04 [place] HEMATOLOGY Hct 28.7 42.0 - 01/[address] [facility] HEMATOLOGY Hgb 9.6 14.0 - 01/[address] [facility] URINE AND UA RBC 6 0 - 2 01/[address] [facility] URINE AND UA Mucus Few /LPF None Seen 01/04 STOOL /LPF [facility] URINE AND UA WBC 1 0 - 5 01/04 STOOL [place] URINE AND UA Sq Epi Occasional Few /LPF 01/04 STOOL /LPF [facility] Culture: No Growth 01/[address] [facility] CHEM PANEL Glucose Lvl 161 70 - 99 01/03 [facility] CHEM PANEL Calcium Lvl 7.4 8.5 - 10.5 01/03 [facility] CHEM PANEL eGFR 27 01/03 Comment: The [facility] eGFR is calculated using the CKD-EPI formula. In most young, healthy individuals the eGFR will be >90 mL/min/1.73m2 . The eGFR declines with age. An eGFR of 60-89 may be normal in some populations, particularly the elderly, for whom the CKD-EPI formula has not been extensively validated. Use of the eGFR is not recommended in the following populations:< br/>
Mohini viduals with unstable creatinine concentration s, including patients and those with serious co-morbid conditions.<b r/>
Patie nts with extremes in muscle mass or diet.

The data above are obtained from the National Kidney Disease Education Program (NKDEP) which additionally recommends that when the eGFR is used in patients with extremes of body mass index for purposes of drug dosing, the eGFR should be multiplied by the estimated BMI. CHEM PANEL CO2 29 24 - 32 01/03 [facility] CHEM PANEL AGAP 10.4 10.0 - 01/[address] [facility] CHEM PANEL Chloride Lvl 108 95 - 109 01/03 [facility] CHEM PANEL Sodium Lvl 144 135 - 145 01/03 [facility] CHEM PANEL Potassium 3.4 3.5 - 5.1 01/03 Lvl [facility] CHEM PANEL BUN 59 7 - 22 01/03 [facility] CHEM PANEL Creatinine 2.64 0.50 - 01/03 Lvl 1.40 /2017 [facility] HEMATOLOGY Hgb 9.1 14.0 - 01/[address] [facility] HEMATOLOGY Hct 27.0 42.0 - 01/[address] [facility] URINE AND UA <=1.0 0.1 - 1.0 01/02 STOOL Urobilinogen mg/dL [facility] URINE AND UA Color Yellow Yellow 01/02 STOOL *NA* /2017 [facility] (01/02/18 5:05 PM) URINE AND UA Turbidity Clear Clear 01/02 STOOL (01/02/18 5:05 PM) [place] URINE AND UA Glucose Negative Negative 01/02 [facility]OOL mg/dL mg/dL [place] URINE AND UA pH 6.0 5.0 - 8.0 01/02 [facility]OOL [place] URINE AND UA Protein Negative Negative 01/02 STOOL mg/dL mg/dL [facility] URINE AND UA Spec Grav 1.006 <=1.030 01/02 STOOL [place] URINE AND UA Blood Large Negative 01/02 STOOL *ABN* /2017 [facility] (01/02/18 5:05 PM) URINE AND UA Nitrite Negative Negative 01/02 STOOL (01/02/18 5:05 PM) [place] URINE AND UA Ketones Negative Negative 01/02 STOOL mg/dL mg/dL [facility] URINE AND UA Bili Negative Negative 01/02 STOOL *NA* /2017 [facility] (01/02/18 5:05 PM) URINE AND UA Mucus Few /LPF None Seen 01/02 STOOL /LPF [facility] URINE AND UA RBC 29 0 - 2 01/02 [facility]OL [place] URINE AND UA WBC <1 0 - 5 01/[address] [facility] URINE AND UA Leuk Est Negative Negative 01/02 STOOL (01/02/18 5:05 PM) [place] URINE AND UA Sq Epi Occasional Few /LPF 01/02 STOOL /LPF [facility] URINE CHEM U Protein 18.3 01/02 [facility] URINE CHEM U Prot/Creat 0.35 01/02 [facility] URINE CHEM U Creatinine 52.10 01/02 [facility] URINE CHEM U Creatinine 52.10 01/02 [facility] URINE CHEM U Sodium 43 01/02 [facility] ANEMIA Vitamin B12 519 254 - 1320 01/[address] [facility] ANEMIA % [place] 38 12 - 57 01/[address] [facility] ANEMIA TIBC 244 228 - [address] 01/[address] [facility] ANEMIA Iron 92 45 - [address] [facility] ANEMIA UIBC 152 110 - 370 01/02 [facility] ANEMIA Ferritin Lvl 48 22 - 275 01/02 [facility] ANEMIA Folate Lvl 2.9 >=3.0 01/02 STUDY ng/mL /2017 [facility] CARDIAC Total CK 86 12 - 191 01/02 [facility] CHEM PANEL eGFR 25 01/02 [facility] Comment: The [facility] eGFR is calculated using the CKD-EPI formula. In most young, healthy individuals the eGFR will be >90 mL/min/1.73m2 . The eGFR declines with age. An eGFR of 60-89 may be normal in some populations, particularly the elderly, for whom the CKD-EPI formula has not been extensively validated. Use of the eGFR is not recommended in the following populations:< br/>
Mohini viduals with unstable creatinine concentration s, including patients and those with serious co-morbid conditions.<b r/>
Patie nts with extremes in muscle mass or diet.

The data above are obtained from the National Kidney Disease Education Program (NKDEP) which additionally recommends that when the eGFR is used in patients with extremes of body mass index for purposes of drug dosing, the eGFR should be multiplied by the estimated BMI. CHEM PANEL BUN 79 7 - 22 01/02 [facility] CHEM PANEL Glucose Lvl 91 70 - 99 01/02 [facility] CHEM PANEL Potassium 3.6 3.5 - 5.1 01/[address] [facility] CHEM PANEL Creatinine 2.86 0.50 - 01/[address] [facility] CHEM PANEL Sodium Lvl 145 135 - 145 01/02 [facility] CHEM PANEL Calcium Lvl 7.7 8.5 - 10.5 01/02 [facility] CHEM PANEL AGAP 11.6 10.0 - 01/[address] [facility] CHEM PANEL Chloride Lvl 114 95 - 109 01/02 [facility] CHEM PANEL CO2 23 24 - 32 01/02 [facility] HEMATOLOGY Platelet 136 133 - 450 01/02 [facility] HEMATOLOGY MPV 8.5 7.4 - 10.4 01/02 [facility] HEMATOLOGY RDW 15.7 11.5 - 10/[address] [facility] HEMATOLOGY MCHC 34.3 32.0 - 01/[address] [facility] HEMATOLOGY WBC 5.8 3.7 - 10.4 01/02 [facility] HEMATOLOGY Hct 27.1 42.0 - 01/[address] [facility] HEMATOLOGY MCV 87.5 80.0 - 01/[address] [facility] HEMATOLOGY MCH 30.0 27.0 - 01/[address] [facility] HEMATOLOGY Hgb 9.3 14.0 - 01/[address] [facility] HEMATOLOGY RBC 3.10 4.70 - 01/[address] [facility] HEMATOLOGY D-Dimer 0.47 01/02 [facility] DRUG U Opiate Scr Positive Negative 01/01 MH SCREEN *ABN* /2017 [facility] (01/01/18 8:10 AM) DRUG U Benzodiaz Negative Negative 01/01 MH SCREEN Scr *NA* [facility] (01/01/18 8:10 AM) DRUG U Cocaine Negative Negative 01/01 MH SCREEN Scr *NA* [facility] (01/01/18 8:10 AM) DRUG U Cannab Scr Negative Negative 01/01 MH SCREEN *NA* /2017 [facility] (01/01/18 8:10 AM) DRUG U Kami Scr Negative Negative 01/01 MH SCREEN *NA* [facility] (01/01/18 8:10 AM) DRUG U Amph Scr Negative Negative 01/01 MH SCREEN *NA* /2017 [facility] (01/01/18 8:10 AM) DRUG U Negative Negative 01/01 MH SCREEN Phencyclidin *NA* [facility] e Scr (01/01/18 8:10 AM) DRUG UDS Note See Note 01/01 MH SCREEN (01/01/18 8:10 AM) /2017 [place] SPECIAL Hgb A1C 5.4 <=5.6 % 01/01 CHEMISTRY /2017 [facility] CHEM PANEL Phosphorus 5.3 2.5 - 4.5 01/01 [facility] CHEM PANEL Total 6.2 6.4 - 8.4 01/[address] [facility] CHEM PANEL B/C Ratio 20 6 - 25 01/01 [facility] CHEM PANEL Bili Total 0.2 0.2 - 1.3 01/01 [facility] CHEM PANEL Alk Phos 94 39 - 136 01/01 [facility] CHEM PANEL AST 10 0 - 37 01/01 [facility] CHEM PANEL ALT 17 0 - 65 01/01 [facility] CHEM PANEL A/G Ratio 1.0 0.7 - 1.6 01/01 [facility] CHEM PANEL Globulin 3.1 2.7 - 4.2 01/01 [facility] CHEM PANEL Albumin Lvl 3.1 3.5 - 5.0 01/01 [facility] CHEM PANEL Lactic Acid 0.4 0.5 - 2.2 01/01 Lvl /2017 [facility] CARDIAC Total CK 206 12 - 191 01/[address] [facility] URINE AND UA <=1.0 0.1 - 1.0 01/01 STOOL Urobilinogen mg/dL [facility] URINE AND UA Ketones Negative Negative 01/01 STOOL mg/dL mg/dL [facility] URINE AND UA Glucose Negative Negative 01/01 STOOL mg/dL mg/dL [facility] URINE AND UA Blood Small Negative 01/01 STOOL *ABN* /2017 [facility] (12/31/17 7:53 PM) URINE AND UA Bili Negative Negative 01/01 STOOL *NA* /2017 [facility] (12/31/17 7:53 PM) URINE AND UA Nitrite Negative Negative 01/01 STOOL (12/31/17 7:53 PM) [place] URINE AND UA Sq Epi Occasional Few /LPF 01/01 STOOL /LPF /2017 [place] URINE AND UA Leuk Est Negative Negative 01/01 STOOL (12/31/17 7:53 PM) [place] URINE AND UA RBC 2 0 - 2 01/01 STOOL [place] URINE AND UA WBC 3 0 - 5 01/01 STOOL [place] URINE AND UA Mucus Few /LPF None Seen 01/01 STOOL /LPF [place] URINE AND UA pH 5.0 5.0 - 8.0 01/01 STOOL [place] URINE AND UA Color Yellow Yellow 01/01 STOOL *NA* /2017 [facility] (12/31/17 7:53 PM) URINE AND UA Spec Grav 1.010 <=1.030 01/01 STOOL [place] URINE AND UA Turbidity Clear Clear 01/01 STOOL (12/31/17 7:53 PM) [place] URINE AND UA Protein Negative Negative 01/01 STOOL mg/dL mg/dL /2017 [facility] CARDIAC Troponin-I <0.02 0.00 - 01/[address] [facility] CHEM PANEL Lipase Lvl 205 73 - 393 01/01 [facility] CHEM PANEL Bili Total 0.3 0.2 - 1.3 01/01 [facility] CHEM PANEL Alk Phos 125 39 - 136 01/01 [facility] CHEM PANEL Albumin Lvl 3.9 3.5 - 5.0 01/01 [facility] CHEM PANEL Total 7.9 6.4 - 8.4 01/[address] [facility] CHEM PANEL AST 15 0 - 37 01/01 [facility] CHEM PANEL ALT 21 0 - 65 01/01 [facility] CHEM PANEL A/G Ratio 1.0 0.7 - 1.6 01/01 [facility] CHEM PANEL Globulin 4.0 2.7 - 4.2 01/01 [facility] CHEM PANEL B/C Ratio 16 6 - 25 01/01 [facility] HEMATOLOGY MCV 88.4 80.0 - 01/[address] [facility] HEMATOLOGY MCH 29.1 27.0 - 01/[address] [facility] HEMATOLOGY MCHC 32.9 32.0 - 01/[address] [facility] HEMATOLOGY RDW 15.7 11.5 - 01/[address] [facility] HEMATOLOGY WBC 7.2 3.7 - 10.4 01/01 [facility] HEMATOLOGY RBC 4.16 4.70 - 01/[address] [facility] HEMATOLOGY MPV 8.6 7.4 - 10.4 01/01 [facility] HEMATOLOGY Platelet 175 133 - 450 01/01 [facility] HEMATOLOGY Monocytes 5.8 2.0 - 12.0 01/01 [facility] HEMATOLOGY Eosinophils 3.0 0.0 - 4.0 01/01 [facility] HEMATOLOGY Lymphocytes 28.2 20.0 - 01/[address] [facility] HEMATOLOGY Segs 62.4 45.0 - 01/01 MH 75.0 /2017 [facility] HEMATOLOGY Monocytes # 0.4 0.0 - 0.8 01/01 [facility] HEMATOLOGY Eosinophils 0.2 0.0 - 0.5 01/01 MH # /2018 [facility] HEMATOLOGY Basophils 0.6 0.0 - 1.0 01/01 [facility] HEMATOLOGY Neutrophils 4.5 1.5 - 8.1 01/01 # /2017 [place] HEMATOLOGY Lymphocytes 2.0 1.0 - 5.5 01/01 # /2017 [place] ELECTROLYT AGAP 10.7 10.0 - 12/13 ES 20.0 /2017 [place] ELECTROLYT eGFR 41 12/13 [facility] Comment: The [facility] eGFR is calculated using the CKD-EPI formula. In most young, healthy individuals the eGFR will be >90 mL/min/1.73m2 . The eGFR declines with age. An eGFR of 60-89 may be normal in some populations, particularly the elderly, for whom the CKD-EPI formula has not been extensively validated. Use of the eGFR is not recommended in the following populations:< br/>
Mohini viduals with unstable creatinine concentration s, including patients and those with serious co-morbid conditions.<b r/>
Patie nts with extremes in muscle mass or diet.

The data above are obtained from the National Kidney Disease Education Program (NKDEP) which additionally recommends that when the eGFR is used in patients with extremes of body mass index for purposes of drug dosing, the eGFR should be multiplied by the estimated BMI. ELECTROLYT CO2 23 24 - 32 12/13 [facility] ELECTROLYT Calcium Lvl 8.2 8.5 - 10.5 12/13 [place] ELECTROLYT Chloride Lvl 112 95 - 109 12/13 [facility] ELECTROLYT Potassium 4.7 3.5 - 5.1 12/13 ES Lvl [place] ELECTROLYT BUN 43 7 - 22 12/13 [place] ELECTROLYT Creatinine 1.88 0.50 - 12/13 ES Lvl 1.40 /2017 [place] ELECTROLYT Sodium Lvl 141 135 - 145 12/13 ES [place] ELECTROLYT Glucose Lvl 84 70 - 99 12/13 [facility] HEMATOLOGY RDW 14.9 11.5 - 12/[address] [facility] HEMATOLOGY Platelet 226 133 - 450 12/13 [facility] HEMATOLOGY MPV 7.2 7.4 - 10.4 12/13 [facility] HEMATOLOGY MCHC 33.7 32.0 - 12/[address] [facility] HEMATOLOGY MCH 30.0 27.0 - 12/13 MH 31.0 /2017 [facility] HEMATOLOGY MCV 89.2 80.0 - 12/13 MH 94.0 /2017 [facility] HEMATOLOGY Hct 32.9 42.0 - 12/13 MH 54.0 /2017 [facility] HEMATOLOGY RBC 3.69 4.70 - 12/[address] [facility] HEMATOLOGY WBC 7.4 3.7 - 10.4 12/13 [facility] HEMATOLOGY Hgb 11.1 14.0 - 12/[address] [facility] HEMATOLOGY Monocytes # 0.5 0.0 - 0.8 12/13 [place] HEMATOLOGY Lymphocytes 3.1 1.0 - 5.5 12/13 MH # /2017 [facility] HEMATOLOGY Neutrophils 3.4 1.5 - 8.1 12/13 [place] HEMATOLOGY Eosinophils 0.3 0.0 - 0.5 12/13 # /2017 [facility] HEMATOLOGY Lymphocytes 42.4 20.0 - 12/[address] [facility] HEMATOLOGY Segs 46.4 45.0 - 12/[address] [facility] HEMATOLOGY Monocytes 6.5 2.0 - 12.0 12/13 [place] HEMATOLOGY Basophils 0.5 0.0 - 1.0 12/13 [facility] HEMATOLOGY Eosinophils 4.2 0.0 - 4.0 12/13 [facility] CHEM PANEL Lactic Acid 0.5 0.5 - 2.2 12/13 Lvl [place] URINE AND UA Sq Epi None Seen 12/12 STOOL [place] URINE AND UA Color STRAW 12/12 STOOL [place] URINE AND UA <=1.0 0.1 - 1.0 12/12 STOOL Urobilinogen mg/dL /2017 [place] URINE AND UA Leuk Est Negative Negative 12/12 [facility] (12/12/17 5:31 PM) [place] URINE AND UA Nitrite Negative Negative 12/12 [facility] (12/12/17 5:31 PM) [place] URINE AND UA Blood Negative Negative 12/12 [facility] (12/12/17 5:31 PM) [place] URINE AND UA Bili Negative Negative 12/12 STOOL *NA* /2017 [facility] (12/12/17 5:31 PM) URINE AND UA pH 6.0 5.0 - 8.0 12/12 STOOL [place] URINE AND UA Glucose Negative Negative 12/12 STOOL mg/dL mg/dL [facility] URINE AND UA Protein Negative Negative 12/12 STOOL mg/dL mg/dL [facility] URINE AND UA Spec Grav 1.006 <=1.030 12/12 STOOL [place] URINE AND UA Ketones Negative Negative 12/12 STOOL mg/dL mg/dL [place] URINE AND UA Turbidity Clear Clear 12/12 STOOL (12/12/17 5:31 PM) [facility] ast CHEM PANEL Lipase Lvl 224 73 - 393 12/12 [place] CHEM PANEL Glucose Lvl 102 70 - 99 12/12 [facility] CHEM PANEL BUN 48 7 - 22 12/12 [place] CHEM PANEL Bili Total 0.2 0.2 - 1.3 12/12 [place] CHEM PANEL Alk Phos 109 39 - 136 12/12 [place] CHEM PANEL Calcium Lvl 8.4 8.5 - 10.5 12/12 [place] CHEM PANEL Total 7.0 6.4 - 8.4 12/12 Protein [place] CHEM PANEL Albumin Lvl 3.3 3.5 - 5.0 12/12 [facility] CHEM PANEL AST 14 0 - 37 12/12 [facility] CHEM PANEL ALT 17 0 - 65 12/12 [facility] CHEM PANEL Sodium Lvl 140 135 - 145 12/12 [facility] CHEM PANEL Chloride Lvl 108 95 - 109 12/12 [facility] CHEM PANEL Potassium 4.7 3.5 - 5.1 12/12 MH Lvl [place] CHEM PANEL CO2 26 24 - 32 12/12 [facility] CHEM PANEL Creatinine 2.02 0.50 - 12/12 MH Lvl 1.40 [facility] CHEM PANEL eGFR 37 12/12 Comment: The [facility] eGFR is calculated using the CKD-EPI formula. In most young, healthy individuals the eGFR will be >90 mL/min/1.73m2 . The eGFR declines with age. An eGFR of 60-89 may be normal in some populations, particularly the elderly, for whom the CKD-EPI formula has not been extensively validated. Use of the eGFR is not recommended in the following populations:< br/>
Mohini viduals with unstable creatinine concentration s, including patients and those with serious co-morbid conditions.<b r/>
Patie nts with extremes in muscle mass or diet.

The data above are obtained from the National Kidney Disease Education Program (NKDEP) which additionally recommends that when the eGFR is used in patients with extremes of body mass index for purposes of drug dosing, the eGFR should be multiplied by the estimated BMI. CHEM PANEL AGAP 10.7 10.0 - 12/12 MH 20.0 /2017 [facility] CHEM PANEL Globulin 3.7 2.7 - 4.2 12/12 [facility] CHEM PANEL B/C Ratio 24 6 - 25 12/12 [facility] CHEM PANEL A/G Ratio 0.9 0.7 - 1.6 12/12 [facility] HEMATOLOGY Segs 56.2 45.0 - 12/12 MH 75.0 /2017 [facility] HEMATOLOGY Monocytes 5.2 2.0 - 12.0 12/12 [facility] HEMATOLOGY Lymphocytes 35.2 20.0 - 12/12 MH 40.0 /2017 [facility] HEMATOLOGY Neutrophils 4.5 1.5 - 8.1 12/12 MH # /2017 [facility] HEMATOLOGY Basophils 0.4 0.0 - 1.0 12/12 [facility] HEMATOLOGY Lymphocytes 2.8 1.0 - 5.5 12/12 MH # /2017 [facility] HEMATOLOGY Eosinophils 0.2 0.0 - 0.5 12/12 MH # /2017 [facility] HEMATOLOGY Eosinophils 3.0 0.0 - 4.0 12/12 [facility] HEMATOLOGY Monocytes # 0.4 0.0 - 0.8 12/12 [facility] HEMATOLOGY Platelet 232 133 - 450 12/12 [facility] HEMATOLOGY MPV 7.3 7.4 - 10.4 12/12 [facility] HEMATOLOGY RBC 3.65 4.70 - 12/12 MH 6.10 /2017 [facility] HEMATOLOGY WBC 7.9 3.7 - 10.4 12/12 [facility] HEMATOLOGY Hgb 11.1 14.0 - 12/[address] [facility] HEMATOLOGY MCHC 34.2 32.0 - 12/12 MH 36.0 /2017 [facility] HEMATOLOGY MCH 30.5 27.0 - 12/12 MH 31.0 /2017 [facility] HEMATOLOGY Hct 32.5 42.0 - 12/12 MH 54.0 /2017 [facility] HEMATOLOGY MCV 89.1 80.0 - 12/12 MH 94.0 /2017 [facility] HEMATOLOGY RDW 14.8 11.5 - 12/12 MH 14.5 /2018 [facility] HEMATOLOGY PT 12.0 12.0 - 12/12 MH 14.7 /2018 [facility] HEMATOLOGY INR 0.89 0.85 - 12/12 MH 1.17 /2017 [facility] HEMATOLOGY PTT 28.5 22.9 - 12/12 MH 35.8 /2018 [facility] CHEM PANEL Magnesium 1.8 1.8 - 2.4 12/01 MH Lvl /2017 [facility] CHEM PANEL eGFR 40 12/01 Result Comment: The [facility] eGFR is calculated using the CKD-EPI formula. In most young, healthy individuals the eGFR will be >90 mL/min/1.73m2 . The eGFR declines with age. An eGFR of 60-89 may be normal in some populations, particularly the elderly, for whom the CKD-EPI formula has not been extensively validated. Use of the eGFR is not recommended in the following populations:< br/>
Mohini viduals with unstable creatinine concentration s, including patients and those with serious co-morbid conditions.<b r/>
Patie nts with extremes in muscle mass or diet.

The data above are obtained from the National Kidney Disease Education Program (NKDEP) which additionally recommends that when the eGFR is used in patients with extremes of body mass index for purposes of drug dosing, the eGFR should be multiplied by the estimated BMI. CHEM PANEL Globulin 3.4 2.7 - 4.2 12/01 [facility] CHEM PANEL A/G Ratio 1.0 0.7 - 1.6 12/01 [facility] CHEM PANEL AGAP 13.4 10.0 - 12/01 [facility] 20.0 [facility] CHEM PANEL B/C Ratio 11 6 - 25 12/01 [facility] CHEM PANEL Alk Phos 102 39 - 136 12/01 [facility] CHEM PANEL Bili Total 0.2 0.2 - 1.3 12/01 [facility] CHEM PANEL AST 33 0 - 37 12/01 [facility] CHEM PANEL ALT 34 0 - 65 12/01 [facility] CHEM PANEL Albumin Lvl 3.5 3.5 - 5.0 12/01 [facility] CHEM PANEL CO2 20 24 - 32 12/01 [facility] CHEM PANEL Calcium Lvl 8.2 8.5 - 10.5 12/01 [facility] CHEM PANEL Total 6.9 6.4 - 8.4 12/01 [facility] Protein [facility] CHEM PANEL Potassium 4.4 3.5 - 5.1 12/01 [facility] Lvl /2017 [facility] CHEM PANEL Sodium Lvl 140 135 - 145 12/01 [facility] CHEM PANEL Chloride Lvl 111 95 - 109 12/01 [facility] CHEM PANEL Creatinine 1.89 0.50 - 12/01 [facility] Lvl 1.40 /2017 [facility] CHEM PANEL Glucose Lvl 98 70 - 99 12/01 [facility] CHEM PANEL BUN 20 7 - 22 12/01 [facility] HEMATOLOGY MCV 92.1 80.0 - 12/[address] [facility] HEMATOLOGY Hct 33.5 42.0 - 12/[address] [facility] HEMATOLOGY MCH 30.4 27.0 - 12/[address] [facility] HEMATOLOGY MCHC 33.0 32.0 - 12/[address] [facility] HEMATOLOGY Hgb 11.1 14.0 - 12/[address] [facility] HEMATOLOGY MPV 8.0 7.4 - 10.4 12/01 [facility] HEMATOLOGY Platelet 165 133 - 450 12/01 [facility] HEMATOLOGY RDW 15.0 11.5 - 12/[address] [facility] HEMATOLOGY WBC 11.1 3.7 - 10.4 12/01 [facility] HEMATOLOGY RBC 3.64 4.70 - 12/[address] [facility] CHEM PANEL Phosphorus 3.9 2.5 - 4.5 11/30 [facility] CHEM PANEL eGFR 40 11/30 Result Comment: The [facility] eGFR is calculated using the CKD-EPI formula. In most young, healthy individuals the eGFR will be >90 mL/min/1.73m2 . The eGFR declines with age. An eGFR of 60-89 may be normal in some populations, particularly the elderly, for whom the CKD-EPI formula has not been extensively validated. Use of the eGFR is not recommended in the following populations:< br/>
Mohini viduals with unstable creatinine concentration s, including patients and those with serious co-morbid conditions.<b r/>
Patie nts with extremes in muscle mass or diet.

The data above are obtained from the National Kidney Disease Education Program (NKDEP) which additionally recommends that when the eGFR is used in patients with extremes of body mass index for purposes of drug dosing, the eGFR should be multiplied by the estimated BMI. CHEM PANEL Bili Total 0.2 0.2 - 1.3 11/30 [facility] CHEM PANEL Alk Phos 98 39 - 136 11/30 [facility] CHEM PANEL Sodium Lvl 144 135 - 145 11/30 [facility] CHEM PANEL Chloride Lvl 115 95 - 109 11/30 [facility] CHEM PANEL Potassium 4.2 3.5 - 5.1 11/30 [facility] Lvl /2017 [facility] CHEM PANEL Creatinine 1.92 0.50 - 11/30 [facility] Lvl 1.40 /2017 [facility] CHEM PANEL CO2 23 24 - 32 11/30 [facility] CHEM PANEL Albumin Lvl 3.3 3.5 - 5.0 11/30 [facility] CHEM PANEL Total 6.4 6.4 - 8.4 11/30 [facility] Protein [facility] CHEM PANEL Calcium Lvl 8.1 8.5 - 10.5 11/30 [facility] CHEM PANEL ALT 17 0 - 65 11/30 [facility] CHEM PANEL AST 19 0 - 37 11/30 [facility] CHEM PANEL BUN 25 7 - 22 11/30 [facility] CHEM PANEL Glucose Lvl 73 70 - 99 11/30 [facility] CHEM PANEL A/G Ratio 1.1 0.7 - 1.6 11/30 [facility] CHEM PANEL B/C Ratio 13 6 - 25 11/30 [facility] CHEM PANEL AGAP 10.2 10.0 - 11/30 [facility] 20.0 [facility] CHEM PANEL Globulin 3.1 2.7 - 4.2 11/30 [facility] CHEM PANEL Magnesium 1.8 1.8 - 2.4 18 MH Lvl /2017 [facility] HEMATOLOGY Hct 31.8 42.0 - 11/[address] [facility] HEMATOLOGY MCV 90.5 80.0 - 11/[address] [facility] HEMATOLOGY WBC 7.8 3.7 - 10.4 11/[address] [facility] HEMATOLOGY RBC 3.51 4.70 - 11/[address] [facility] HEMATOLOGY Hgb 10.9 14.0 - [address] [facility] HEMATOLOGY MCH 30.9 27.0 - 11/30 MH 31.0 /2017 [facility] HEMATOLOGY MCHC 34.2 32.0 - 11/30 MH 36.0 /2017 [facility] HEMATOLOGY MPV 7.7 7.4 - 10.4 11/30 /2017 [facility] HEMATOLOGY RDW 14.9 11.5 - 11/30 MH 14.5 /2017 [facility] HEMATOLOGY Platelet 176 133 - 450 11/30 /2017 [facility] HEMATOLOGY Neutrophils 3.7 1.5 - 8.1 11/30 MH # /2018 [facility] HEMATOLOGY Lymphocytes 3.4 1.0 - 5.5 11/30 MH # /2018 [facility] HEMATOLOGY Basophils 0.2 0.0 - 1.0 11/30 /2017 [facility] HEMATOLOGY Monocytes # 0.5 0.0 - 0.8 11/30 /2017 [facility] HEMATOLOGY Eosinophils 0.3 0.0 - 0.5 11/30 MH # /2017 [facility] HEMATOLOGY Lymphocytes 43.4 20.0 - 11/[address] [facility] HEMATOLOGY Segs 46.7 45.0 - 11/[address] [facility] HEMATOLOGY Monocytes 6.0 2.0 - 12.0 11/30 /2017 [facility] HEMATOLOGY Eosinophils 3.7 0.0 - 4.0 11/30 /2017 [facility] DRUG U Negative Negative 11/29 SCREEN Phencyclidin *NA* [facility] e Scr (11/29/17 12:39 PM) DRUG U Opiate Scr Negative Negative 11/29 SCREEN *NA* /2017 [facility] (11/29/17 12:39 PM) DRUG U Benzodiaz Negative Negative 11/29 SCREEN Scr *NA* [facility] (11/29/17 12:39 PM) DRUG U Cocaine Negative Negative 11/29 SCREEN Scr *NA* [facility] (11/29/17 12:39 PM) DRUG U Cannab Scr Negative Negative 11/29 SCREEN *NA* [facility] (11/29/17 12:39 PM) DRUG UDS Note See Note 11/29 MH SCREEN (11/29/17 12:39 PM) /2017 [place] DRUG U Kami Scr Negative Negative 11/29 SCREEN *NA* [facility] (11/29/17 12:39 PM) DRUG U Amph Scr Negative Negative 11/29 SCREEN *NA* [facility] (11/29/17 12:39 PM) URINE AND UA <=1.0 0.1 - 1.0 11/29 STOOL Urobilinogen mg/dL /2017 [facility] URINE AND UA Sq Epi None Seen 11/[address] [facility] URINE AND UA Leuk Est Negative Negative 11/29 STOOL (11/29/17 12:39 PM) [place] URINE AND UA Nitrite Negative Negative 11/29 STOOL (11/29/17 12:39 PM) [place] URINE AND UA Blood Negative Negative 11/29 STOOL (11/29/17 12:39 PM) [place] URINE AND UA Bili Negative Negative 11/29 STOOL *NA* /2017 [facility] (11/29/17 12:39 PM) URINE AND UA Ketones Negative Negative 11/29 STOOL mg/dL mg/dL [facility] URINE AND UA Protein Negative Negative 11/29 STOOL mg/dL mg/dL /2017 [facility] URINE AND UA Glucose Negative Negative 11/29 STOOL mg/dL mg/dL /2017 [facility] URINE AND UA pH 6.0 5.0 - 8.0 11/29 [facility] URINE AND UA Bacteria Occasional None Seen 11/29 STOOL /HPF /HPF /2017 [facility] URINE AND UA RBC 1 0 - 2 11/29 [facility] URINE AND UA WBC <1 0 - 5 11/29 [facility] URINE AND UA Spec Grav 1.002 <=1.030 11/[address] [facility] URINE AND UA Turbidity Clear Clear 11/29 STOOL (11/29/17 12:39 PM) [place] URINE AND UA Color Colorless Yellow 11/29 STOOL *NA* /2017 [facility] (11/29/17 12:39 PM) CARDIAC Troponin-I <0.02 0.00 - 11/[address] [facility] CARDIAC Total CK 367 12 - 191 11/29 ENZYMES /2017 [facility] CHEM PANEL B/C Ratio 13 6 - 25 11/29 [facility] CHEM PANEL Globulin 3.2 2.7 - 4.2 11/29 [facility] CHEM PANEL A/G Ratio 1.2 0.7 - 1.6 11/29 [facility] CHEM PANEL AGAP 11.1 10.0 - 11/29 20.0 /2017 [facility] CHEM PANEL eGFR 31 11/29 [facility] Comment: The [facility] eGFR is calculated using the CKD-EPI formula. In most young, healthy individuals the eGFR will be >90 mL/min/1.73m2 . The eGFR declines with age. An eGFR of 60-89 may be normal in some populations, particularly the elderly, for whom the CKD-EPI formula has not been extensively validated. Use of the eGFR is not recommended in the following populations:< br/>
Mohini viduals with unstable creatinine concentration s, including patients and those with serious co-morbid conditions.<b r/>
Patie nts with extremes in muscle mass or diet.

The data above are obtained from the National Kidney Disease Education Program (NKDEP) which additionally recommends that when the eGFR is used in patients with extremes of body mass index for purposes of drug dosing, the eGFR should be multiplied by the estimated BMI. CHEM PANEL Total 7.2 6.4 - 8.4 11/29 [facility] CHEM PANEL Calcium Lvl 8.3 8.5 - 10.5 11/29 [facility] CHEM PANEL Chloride Lvl 108 95 - 109 11/29 [facility] CHEM PANEL CO2 23 24 - 32 11/29 [facility] CHEM PANEL Creatinine 2.34 0.50 - 11/29 Lvl 1.40 [facility] CHEM PANEL Sodium Lvl 138 135 - 145 11/29 [facility] CHEM PANEL BUN 31 7 - 22 11/29 [facility] CHEM PANEL AST 21 0 - 37 11/29 [facility] CHEM PANEL Bili Total 0.3 0.2 - 1.3 11/29 [facility] CHEM PANEL Alk Phos 106 39 - 136 11/29 [facility] CHEM PANEL Albumin Lvl 4.0 3.5 - 5.0 11/29 [facility] CHEM PANEL ALT 21 0 - 65 11/29 [facility] CHEM PANEL Potassium 4.1 3.5 - 5.1 11/29 Lvl [facility] CHEM PANEL Glucose Lvl 89 70 - 99 11/29 [facility] HEMATOLOGY MCH 30.3 27.0 - 11/[address] [facility] HEMATOLOGY MCV 89.7 80.0 - 11/[address] [facility] HEMATOLOGY Platelet 181 133 - 450 11/29 [facility] HEMATOLOGY RDW 14.8 11.5 - 11/[address] [facility] HEMATOLOGY MCHC 33.8 32.0 - 11/29 MH 36.0 /2018 [facility] HEMATOLOGY MPV 7.6 7.4 - 10.4 11/29 /2017 [facility] HEMATOLOGY WBC 10.2 3.7 - 10.4 11/29 /2017 [facility] HEMATOLOGY Hgb 11.4 14.0 - 11/29 MH 18.0 /2017 [facility] HEMATOLOGY RBC 3.77 4.70 - 11/29 MH 6.10 /2017 [facility] HEMATOLOGY Hct 33.8 42.0 - 11/29 MH 54.0 /2017 [facility] HEMATOLOGY Neutrophils 6.1 1.5 - 8.1 11/29 MH # /2018 [facility] HEMATOLOGY Eosinophils 0.3 0.0 - 0.5 11/29 MH # /2017 [facility] HEMATOLOGY Monocytes # 0.8 0.0 - 0.8 11/29 /2017 [facility] HEMATOLOGY Lymphocytes 3.0 1.0 - 5.5 11/29 MH # /2017 [facility] HEMATOLOGY Monocytes 8.0 2.0 - 12.0 11/29 /2017 [facility] HEMATOLOGY Basophils 0.4 0.0 - 1.0 11/29 /2017 [facility] HEMATOLOGY Eosinophils 2.5 0.0 - 4.0 11/29 /2017 [facility] HEMATOLOGY Segs 59.7 45.0 - 11/29 MH 75.0 /2018 [facility] HEMATOLOGY Lymphocytes 29.4 20.0 - 11/29 MH 40.0 /2017 [facility] CHEM PANEL Lipase Lvl 300 73 - 393 11/29 [facility] CHEM PANEL Calcium Lvl 7.7 8.5 - 10.5 11/28 [facility] CHEM PANEL Potassium 4.4 3.5 - 5.1 11/28 Lvl /2017 [facility] CHEM PANEL CO2 23 24 - 32 11/28 [facility] CHEM PANEL AGAP 11.4 10.0 - 11/28 MH 20.0 [facility] CHEM PANEL Chloride Lvl 113 95 - 109 11/28 [facility] CHEM PANEL Sodium Lvl 143 135 - 145 11/28 [facility] CHEM PANEL Glucose Lvl 111 70 - 99 11/28 [facility] CHEM PANEL BUN 32 7 - 22 11/28 [facility] CHEM PANEL Creatinine 2.36 0.50 - 11/28 Lvl 1.40 /2017 [facility] CHEM PANEL eGFR 31 11/28 Result Comment: The [facility] eGFR is calculated using the CKD-EPI formula. In most young, healthy individuals the eGFR will be >90 mL/min/1.73m2 . The eGFR declines with age. An eGFR of 60-89 may be normal in some populations, particularly the elderly, for whom the CKD-EPI formula has not been extensively validated. Use of the eGFR is not recommended in the following populations:< br/>
Mohini viduals with unstable creatinine concentration s, including patients and those with serious co-morbid conditions.<b r/>
Patie nts with extremes in muscle mass or diet.

The data above are obtained from the National Kidney Disease Education Program (NKDEP) which additionally recommends that when the eGFR is used in patients with extremes of body mass index for purposes of drug dosing, the eGFR should be multiplied by the estimated BMI. CHEM PANEL Phosphorus 4.1 2.5 - 4.5 11/28 [facility] CHEM PANEL Magnesium 1.9 1.8 - 2.4 11/[address] [facility] CHEM PANEL eGFR 37 11/28 [facility] Comment: The [facility] eGFR is calculated using the CKD-EPI formula. In most young, healthy individuals the eGFR will be >90 mL/min/1.73m2 . The eGFR declines with age. An eGFR of 60-89 may be normal in some populations, particularly the elderly, for whom the CKD-EPI formula has not been extensively validated. Use of the eGFR is not recommended in the following populations:< br/>
Mohini viduals with unstable creatinine concentration s, including patients and those with serious co-morbid conditions.<b r/>
Patie nts with extremes in muscle mass or diet.

The data above are obtained from the National Kidney Disease Education Program (NKDEP) which additionally recommends that when the eGFR is used in patients with extremes of body mass index for purposes of drug dosing, the eGFR should be multiplied by the estimated BMI. CHEM PANEL Glucose Lvl 136 70 - 99 11/28 [facility] CHEM PANEL Alk Phos 110 39 - 136 11/28 [facility] CHEM PANEL Bili Total 0.2 0.2 - 1.3 11/28 [facility] CHEM PANEL AST 17 0 - 37 11/28 [facility] CHEM PANEL Albumin Lvl 3.6 3.5 - 5.0 11/28 /2017 [facility] CHEM PANEL ALT 18 0 - 65 / /2017 [facility] CHEM PANEL Total 6.7 6.4 - 8.4 /16 MH Protein /2017 [facility] CHEM PANEL CO2 19 24 - 32 / /2017 [facility] CHEM PANEL Calcium Lvl 8.2 8.5 - 10.5 11/28 /2017 [facility] CHEM PANEL Chloride Lvl 114 95 - 109 11/28 /2017 [facility] CHEM PANEL Potassium 5.2 3.5 - 5.1 / MH Lvl /2017 [facility] CHEM PANEL Sodium Lvl 141 135 - 145 11/28 /2017 [facility] CHEM PANEL BUN 35 7 - 22 11/28 /2017 [facility] CHEM PANEL Creatinine 2.03 0.50 - 11/28 MH Lvl 1.40 /2017 [facility] CHEM PANEL AGAP 13.2 10.0 - 11/28 MH 20.0 /2017 [facility] CHEM PANEL A/G Ratio 1.2 0.7 - 1.6 / MH /2017 [facility] CHEM PANEL Globulin 3.1 2.7 - 4.2 11/28 /2017 [facility] CHEM PANEL B/C Ratio 17 6 - 25 11/28 MH /2017 [facility] HEMATOLOGY Monocytes # 0.3 0.0 - 0.8 / MH /2017 [facility] HEMATOLOGY Lymphocytes 1.3 1.0 - 5.5 /16 MH # /2018 [facility] HEMATOLOGY Segs 80.6 45.0 - 11/28 MH 75.0 /2017 [facility] HEMATOLOGY Neutrophils 6.8 1.5 - 8.1 11/28 MH # /2018 [facility] HEMATOLOGY Lymphocytes 15.4 20.0 - 11/28 MH 40.0 /2017 [facility] HEMATOLOGY Monocytes 3.7 2.0 - 12.0 11/28 /2017 [facility] HEMATOLOGY Eosinophils 0.1 0.0 - 4.0 11/28 MH /2017 [facility] HEMATOLOGY Basophils 0.2 0.0 - 1.0 11/28 /2017 [facility] HEMATOLOGY Hct 34.7 42.0 - 11/28 MH 54.0 /2017 [facility] HEMATOLOGY MCHC 33.4 32.0 - 11/28 MH 36.0 /2017 [facility] HEMATOLOGY RBC 3.83 4.70 - 11/28 MH 6.10 /2017 [facility] HEMATOLOGY Hgb 11.6 14.0 - 11/28 MH 18.0 [facility] HEMATOLOGY Platelet 171 133 - 450 11/28 /2017 [facility] HEMATOLOGY MPV 7.8 7.4 - 10.4 11/28 [facility] HEMATOLOGY RDW 14.8 11.5 - 11/28 MH 14.5 /2017 [facility] HEMATOLOGY MCV 90.7 80.0 - 11/[address] [facility] HEMATOLOGY MCH 30.3 27.0 - 11/28 31.0 /2017 [facility] HEMATOLOGY WBC 8.4 3.7 - 10.4 11/28 [facility] URINE AND Occult Bld Positive Negative 11/27 STOOL Stl *ABN* /2017 [facility] (11/27/17 6:55 AM) URINE AND UA Color STRAW 11/[address] [facility] URINE AND UA <=1.0 0.1 - 1.0 11/27 STOOL Urobilinogen mg/dL /2017 [facility] URINE AND UA Nitrite Negative Negative 11/27 [facility] (11/27/17 2:33 AM) [place] [facility] URINE AND UA Leuk Est Negative Negative 11/27 [facility] (11/27/17 2:33 AM) [facility] URINE AND UA Sq Epi Occasional Few /LPF 11/27 [facility]OOL /LPF /2017 [facility] URINE AND UA RBC 1 0 - 2 11/27 [facility] URINE AND UA WBC <1 0 - 5 11/27 [facility] URINE AND UA Blood Negative Negative 11/27 [facility] (11/27/17 2:33 AM) [place] URINE AND UA Protein Negative Negative 11/27 STOOL mg/dL mg/dL [facility] URINE AND UA pH 6.0 5.0 - 8.0 11/27 [facility] URINE AND UA Bili Negative Negative 11/27 STOOL *NA* /2017 [facility] (11/27/17 2:33 AM) URINE AND UA Ketones Negative Negative 11/27 [facility] mg/dL mg/dL [facility] URINE AND UA Turbidity Clear Clear 11/27 [facility] (11/27/17 2:33 AM) [facility] URINE AND UA Spec Grav 1.004 <=1.030 11/27 [facility] URINE AND UA Glucose Negative Negative 11/27 STOOL mg/dL mg/dL [facility] CHEM PANEL Lipase Lvl 360 73 - 393 11/27 [facility] CHEM PANEL Albumin Lvl 4.1 3.5 - 5.0 11/27 [facility] CHEM PANEL Total 7.6 6.4 - 8.4 11/27 Protein [facility] CHEM PANEL Calcium Lvl 8.3 8.5 - 10.5 11/27 [facility] CHEM PANEL eGFR 35 11/27 [facility] Comment: The [facility] eGFR is calculated using the CKD-EPI formula. In most young, healthy individuals the eGFR will be >90 mL/min/1.73m2 . The eGFR declines with age. An eGFR of 60-89 may be normal in some populations, particularly the elderly, for whom the CKD-EPI formula has not been extensively validated. Use of the eGFR is not recommended in the following populations:< br/>
Mohini viduals with unstable creatinine concentration s, including patients and those with serious co-morbid conditions.<b r/>
Patie nts with extremes in muscle mass or diet.

The data above are obtained from the National Kidney Disease Education Program (NKDEP) which additionally recommends that when the eGFR is used in patients with extremes of body mass index for purposes of drug dosing, the eGFR should be multiplied by the estimated BMI. CHEM PANEL Alk Phos 115 39 - 136 11/27 [facility] CHEM PANEL AST 21 0 - 37 11/27 [facility] CHEM PANEL ALT 18 0 - 65 11/27 [facility] CHEM PANEL Bili Total 0.2 0.2 - 1.3 11/27 [facility] CHEM PANEL BUN 44 7 - 22 11/27 [facility] CHEM PANEL Glucose Lvl 90 70 - 99 11/27 [facility] CHEM PANEL Chloride Lvl 106 95 - 109 11/27 [facility] CHEM PANEL Creatinine 2.11 0.50 - 11/27 MH Lvl 1.40 /2017 [facility] CHEM PANEL Sodium Lvl 136 135 - 145 11/27 [facility] CHEM PANEL Potassium 4.9 3.5 - 5.1 11/27 [facility] Lvl /2017 [facility] CHEM PANEL CO2 20 24 - 32 11/27 [facility] CHEM PANEL AGAP 14.9 10.0 - 09 MH 20.0 /2017 [facility] CHEM PANEL B/C Ratio 21 6 - 25 11/27 [facility] CHEM PANEL Globulin 3.5 2.7 - 4.2 11/27 [facility] CHEM PANEL A/G Ratio 1.2 0.7 - 1.6 11/27 /2017 [facility] HEMATOLOGY MCH 30.2 27.0 - 11/27 MH 31.0 /2017 [facility] HEMATOLOGY MCHC 33.7 32.0 - 11/27 MH 36.0 /2017 [facility] HEMATOLOGY Hct 36.8 42.0 - 11/27 MH 54.0 /2017 [facility] HEMATOLOGY MCV 89.7 80.0 - 11/27 MH 94.0 /2017 [facility] HEMATOLOGY RDW 14.9 11.5 - 11/[address] [facility] HEMATOLOGY Platelet 202 133 - 450 11/27 MH /2017 [facility] HEMATOLOGY MPV 7.6 7.4 - 10.4 11/27 /2017 [facility] HEMATOLOGY WBC 14.9 3.7 - 10.4 11/27 [facility] HEMATOLOGY RBC 4.10 4.70 - 11/[address] [facility] HEMATOLOGY Hgb 12.4 14.0 - 11/[address] [facility] HEMATOLOGY Basophils 0.3 0.0 - 1.0 11/27 /2017 [facility] HEMATOLOGY Neutrophils 9.2 1.5 - 8.1 11/27 MH # /2017 [facility] HEMATOLOGY Lymphocytes 4.2 1.0 - 5.5 11/27 MH # /2017 [facility] HEMATOLOGY Monocytes # 1.1 0.0 - 0.8 11/27 [facility] HEMATOLOGY Eosinophils 0.3 0.0 - 0.5 11/27 MH # /2017 [facility] HEMATOLOGY Segs 61.6 45.0 - 11/27 MH 75.0 /2017 [facility] HEMATOLOGY Lymphocytes 28.6 20.0 - 11/27 40.0 /2017 [facility] HEMATOLOGY Monocytes 7.4 2.0 - 12.0 11/27 [facility] HEMATOLOGY Eosinophils 2.1 0.0 - 4.0 11/27 /2017 [facility] URINE AND UA Hyal Cast 0-2 0 - 2 05/24 [place] STOOL (05/23/17 11:57 PM) [facility]A RBC None Seen 0 - 2 05/24 [place] [facility] (05/23/17 11:57 PM) /[facility] URINE AND UA WBC None Seen None Seen 05/24 [place] STOOL (05/23/17 11:57 PM) /[facility] URINE AND UA Nitrite Negative Negative 05/24 [facility] STOOL (05/23/17 11:57 PM) /[facility] URINE AND UA Sq Epi Few /LPF Few /LPF 05/24 [facility] STOOL /2018 [facility] URINE AND UA Leuk Est Negative Negative 05/24 [facility] STOOL (05/23/17 11:57 PM) /2017 [facility] URINE AND UA Spec Grav <=1.005 <=1.030 05/24 [facility] STOOL *NA* /2017 [facility] (05/23/17 11:57 PM) Cent[facility] URINE AND UA Protein Negative Negative 05/24 [facility] STOOL (05/23/17 11:57 PM) /2017 [facility] URINE AND UA Turbidity Clear Clear 05/24 [facility] STOOL (05/23/17 11:57 PM) /2017 [facility] URINE AND UA Color Yellow Yellow 05/24 [facility] STOOL *NA* /2017 [facility] (05/23/17 11:57 PM) Cente r URINE AND UA pH 6.5 5.0 - 8.0 05/24 [facility] STOOL /2017 [facility] URINE AND UA 0.2 0.1 - 1.0 05/24 [facility] STOOL Urobilinogen /2017 [facility] URINE AND UA Blood Negative Negative 05/24 [facility] (05/23/17 11:57 PM) /2017 [facility] URINE AND UA Glucose Negative Negative 05/24 [facility] (05/23/17 11:57 PM) /2017 [facility] URINE AND UA Bili Negative Negative 05/24 [facility] STOOL *NA* /2017 [facility] (05/23/17 11:57 PM) Cente r URINE AND UA Ketones Negative Negative 05/24 [facility] STOOL *NA* /2017 [facility] (05/23/17 11:57 PM) Cente r CARDIAC Troponin-I <0.02 0.00 - 05/24 [facility] ENZYMES 0.40 [facility] CHEM PANEL Lactic Acid 0.8 0.5 - 2.2 05/24 [place] [facility] CHEM PANEL Globulin 3.1 2.7 - 4.2 05/24 [facility] [address] [place] [address] CHEM PANEL A/G Ratio 0.9 0.7 - 1.6 05/[address] CHEM PANEL Alk Phos 103 39 - 136 05/[address] CHEM PANEL AST 21 0 - 37 05/[address] CHEM PANEL Bili Direct 0.1 0.0 - 0.3 05/24 [facility] CHEM PANEL Bili Total 0.1 0.2 - 1.3 05/24 [facility] CHEM PANEL Albumin Lvl 2.9 3.5 - 5.0 05/24 [facility] CHEM PANEL ALT 23 0 - 65 05/[address] CHEM PANEL Total 6.0 6.4 - 8.4 05/24 [facility] Protein [facility] CHEM PANEL Bili 0.0 0.0 - 1.0 05/24 [facility] Indirect [facility] CHEM PANEL eGFR 43 05/24 [facility] Comment: The [facility] eGFR is Center calculated using the CKD-EPI formula. In most young, healthy individuals the eGFR will be >90 mL/min/1.73m2 . The eGFR declines with age. An eGFR of 60-89 may be normal in some populations, particularly the elderly, for whom the CKD-EPI formula has not been extensively validated. Use of the eGFR is not recommended in the following populations:< br/>
Mohini viduals with unstable creatinine concentration s, including patients and those with serious co-morbid conditions.<b r/>
Patie nts with extremes in muscle mass or diet.

The data above are obtained from the National Kidney Disease Education Program (NKDEP) which additionally recommends that when the eGFR is used in patients with extremes of body mass index for purposes of drug dosing, the eGFR should be multiplied by the estimated BMI. CHEM PANEL Sodium Lvl 138 135 - 145 05/24 [facility] CHEM PANEL Chloride Lvl 108 95 - 109 05/24 [facility] CHEM PANEL Potassium 4.5 3.5 - 5.1 05/24 [facility] CHEM PANEL Creatinine 1.82 0.50 - 05/24 [facility] Lvl 1.40 [facility] CHEM PANEL Calcium Lvl 8.1 8.5 - 10.5 05/24 [facility] CHEM PANEL CO2 23 24 - 32 05/[address] CHEM PANEL BUN 16 7 - 22 05/[address] CHEM PANEL Glucose Lvl 94 70 - 99 05/[address] CHEM PANEL AGAP 11.5 10.0 - 03 [place] 20.0 /[facility] HEMAT[facility]Y Basophils 1.1 0.0 - 1.0 03 [facility] HEMATOLOGY Eosinophils 2.8 0.0 - 4.0 [place] [facility] HEMATOLOGY Segs 50.8 45.0 - 03 [place] 75.0 /2018 [facility] HEMATOLOGY Basophils # 0.1 0.0 - 0.2 [place] HEMATOLOGY Eosinophils 0.3 0.0 - 0.5 [place] HEMATOLOGY Monocytes # 0.6 0.0 - 0.8 05[place] [facility] HEMATOLOGY Lymphocytes 3.5 1.0 - 5.5 05[place] [facility] HEMATOLOGY Segs-Bands # 4.6 1.5 - 8.1 05/24 [place] /2017 [facility] HEMATOLOGY Monocytes 7.0 2.0 - 12.0 05/24 [facility] HEMATOLOGY Lymphocytes 38.3 20.0 - 05/24 [place] 40.0 /2018 [facility] HEMATOLOGY Hgb 8.5 14.0 - 05/24 [place] 18.0 [facility] HEMATOLOGY Hct 26.0 42.0 - 05/24 [place] 54.0 [facility] HEMATOLOGY RBC 3.28 4.70 - 05/24 [place] 6.10 /2017 [facility] HEMATOLOGY WBC 9.0 3.7 - 10.4 05/24 [facility] HEMATOLOGY MCHC 32.7 32.0 - 03 [place] 36.0 2018 [facility] HEMATOLOGY MCV 79.4 80.0 - 05/24 [place] 94.0 /2018 [facility] HEMATOLOGY MCH 26.0 27.0 - 0312 [place] 31.0 2018 [facility] HEMATOLOGY MPV 7.3 7.4 - 10.4 05/24 [facility] Center HEMATOLOGY Platelet 207 133 - 450 03 /2017 [facility] Center HEMATOLOGY RDW 20.1 11.5 - 03 [place] 14.5 /2018 [facility] HEMATOLOGY INR 0.89 0.85 - 03 [place] 1.17 /2017 [facility] HEMATOLOGY PT 12.0 12.0 - 05/24 [place] 14.7 [facility] HEMATOLOGY PTT 24.1 22.9 - 0312 [facility] 35.8 2018 [facility] Pathology Reports No Data Provided for This Section Diagnostic Reports Report Value Date Source Ext Lower Venous Doppler Patient Name: MANDY CAZARES 2017 [facility] Bil[place] US : 1965; Age: 52 years y/o Male MR: [id number] Study: Ext Lower Venous Doppler Bilat US 018 2:59 PM CDT Ordering Physician: Clinical Indication: Bilateral lower extremity P ain, Limb - R/o DVT; Comparison: None TECHNIQUE: Sonographic evaluation of th e bilateral lower extremity veins was performed using high resolution B-mode imaging, along with pulse and color Doppler imaging. FINDINGS: Right lower extremity: The common femoral vein, fem oral vein, popliteal vein and visualized posterior tibial/calf veins are patent. There is no echogenic debris to suggest deep kourtney ous thrombosis. The saphenofemoral junction is unremarkable. Left lower extremity: The common femoral vein, sup erficial femoral vein, popliteal vein and visualized posterior tibial/calf veins are patent. There is no echogenic debris to suggest deep kourtney ous thrombosis. The saphenofemoral junction is unremarkable. IMPRESSION: No DVT SL: [id number] Renal Stone CT Clinical Indication: Left kn ee pain for 2 to 3 weeks with vomiting. 12/31/2017 [facility] Comparison: CT of the abdomen and pelvis perform ed 12/12/2017. TECHNIQUE: Noncontrasted hel ical imaging was performed from the kidneys through the symphysis as a renal stone protocol. Multiplanar reformations are available. IV CONTRAST: No IV contrast was administered. GI CONTRAST: No oral contrast was administered. CT imaging performed at this location utilizes radiation dose optimization techniques which include one or more of the following: -Automated exposure control -Adjustment of the mA and/or kV according to pat ient size -Use of iterative reconstruction technique CT Radiation Dose DLP 690.12 mGy-cm FINDINGS: LOWER CHEST: Dependent atelectasis is seen at th e lung bases. LIVER: There are no gross ma sses or intrahepatic biliary ductal dilatation noted. BILIARY TREE: The common alissa e duct is normal in caliber without evidence of filling defects. GALLBLADDER: The gallbladder is surgically absent, surgical clips are seen within the gallbladder fossa. PANCREAS: The pancreas is un remarkable. The pancreatic duct is normal in caliber. SPLEEN: The spleen is normal in size and there are no parenchymal abnormalities. ADRENALS: The right adrenal gland is unremarkable. The left adrenal gland is unremarkable. KIDNEYS: There is a 1.4 cm c yst within the midpole left kidney. No radiopaque renal or ureteral stones are seen. There is no hydronephrosis or hydroureter. BOWEL: A moderate to large a mount of fecal material is noted within the colon. A moderate amount of fecal material is noted within the colon. APPENDIX: The appendix is unremarkable. PELVIS: There is mild urinar y bladder wall thickening. The prostate and seminal vesicles are unremarkable. PERITONEUM: There is no evidence for free intrap eritoneal fluid or air. LYMPH NODES: There is no berry dence of mesenteric, retroperitoneal, or inguinal lymphadenopathy. VASCULATURE: There are ather osclerotic calcifications of the nonaneurysmal abdominal aorta and branching vessels. MUSCULOSKELETAL: There are degenerative changes within the visualized spine. IMPRESSION: 1. Mild urinary bladder wal l thickening, which may represents cystitis or underdistention. Consider correlation with urinalysis. 2. No evidence of obstructive uropathy. Left re nal cyst. 3. Evidence of prior cholecystectomy. 4. Small hiatal hernia. SL: [id number] Gallbladder scan HIDA w Clinical Indication: - Post Noemi f luid accumulation. 12/12/2017 [facility] Comparison: CT abdomen pelvis 12/12/2017 TECHNIQUE: Hepatobiliary scan is [facility] using 5 mCi of Tc-99m Choletec, which was administered intravenously. 60 minutes of static imaging was performed at 5 minute intervals in the frontal plane - starting 5 minutes after radiotracer administration. FINDINGS: Prompt hepatic uptake and ex cretion. There is progression of the radiotracer through a non dilated biliary tree and into small bowel. There is no perihepatic or g allbladder fossa radiotracer uptake to suggest bile leak. IMPRESSION: 1. No scintigraphic evidence of bile leak status post cholecystectomy SL: [id number] ED Abdomen/Pelvis IV Clinical indication: - flank pain 12/13/19 18 [facility] contrast only CT Comparison: CT abdomen pelvis 11/27/2017 TECHNIQUE: Volumetric CT acq uisition of the abdomen and pelvis after the intravenous administration contrast. Axial, coronal and sagittal reconstructions. IV contrast: 100 mL Omnipaque 300 Enteric contrast: None. CT imaging performed at this location utilizes radiation dose optimization techniques which include one or more of the following: -Automated exposure control -Adjustment of the mA and/or kV according to pat ient size -Use of iterative reconstruction technique CT Radiation Dose DLP 1020.47 mGy-cm FINDINGS: LOWER THORAX: Subsegmental atelectasis is presen t at the lung bases. LIVER: The liver [...] Normal. ADRENALS: Normal. KIDNEYS AND URETERS: The alissa ateral kidneys are atrophic. A 1.3 cm left renal cyst is present. Additional too small to characterize bilateral renal hypodensities are present, possibly small cysts. GASTROINTESTINAL TRACT: A sm all hiatal hernia is present. The small bowel is normal in caliber. A large colonic stool burden is present. APPENDIX: The appendix is not definitively visua lized. PELVIS: The urinary bladder is unremarkable. No CT abnormality of the reproductive organs. PERITONEUM AND RETROPERITONE UM: Gallbladder fossa fluid collection, as described above containing a tiny locule of air. LYMPH NODES: No abdominal or pelvic lymphadenopa thy. VASCULATURE: Moderate aortoi liac atherosclerosis is present. The portal vein is [...] infection cannot be excluded. 2. Atrophic bilateral kidn eys with left renal cyst and too small to characterize renal hypodensities. 3. Small hiatal hernia. SL: NENA Cholangiogram operative Clinical Indication: - Gallstones 11/30 [facility] Comparison: CT and ultrasound performed 11/28/19 FINDINGS: 2 spot fluoroscopic images are submitted from in traoperative cholangiogram. There is contrast injection into the cystic duct remnant, status post cholecystectomy. There are no filling defects noted. There are no leaks noted. The visualized common hepatic duct and intrahepatic b ile ducts are unremarkable. There is progression of contrast material into the duodenum. 29.1 seconds of fluoroscopic time was used. Recommend correlation with operative report find ings for complete assessment. IMPRESSION: Fluoroscopic images from cholangiogram, as noted above. SL: [id number] Retroperitoneal Complete Clinical Indication: Renal i nsufficiency - EVAL FOR MEDICO RENAL DISEASE 11/30/2017 [facility] Comparison: None TECHNIQUE: Multiple longitudinal and tr ansverse real time sonographic images of the kidneys and urinary bladder are obtained. FINDINGS: KIDNEY: The right kidney measures 8.6 x 4.5 x 4.5 cm. The left kidney is not well visualized due to ov erlying bowel gas. The right kidney is normal i n size, shape, contour, and position. The cortex is normal in thickness and the corticomedullary differentiation is maintained. There is no hydronephrosis, nephrolithiasis, or abnormal perinephric col lections. There is increased parenchymal echogenicity of the right kidney. BLADDER: Scanning through the pelvis reveals the bladder to be partially distended with anechoic urine. AORTA AND IVC: The visualized portions appe ar unremarkable. The common iliac arteries are not well visualized due to overlying bowel gas. ASCITES: No ascites noted. IMPRESSION: 1. Nonvisualized left kidney due to overlying b owel gas. 2. Increased parenchymal ec hogenicity of the right kidney suggesting medical renal disease. SL: [id number] Lung EXAM: VQ scan 11/29/2017 [facility] ventilation/perfusion HISTORY: Chest pain, history of pulmonary embolism scan NM COMPARISON: Chest radiograph same day TECHNIQUE: 10 mCi xenon-133 gas inhaled for the ventilation study and 5 mCi technetium 99m MAA given IV left antecubital region for the perfusion study. FINDINGS: The ventilation images demon strate normal inhalation with air trapping throughout both lungs. The perfusion images demonst rate fairly homogeneous tracer distribution. No significant peripheral segmental perfusion defect is seen. IMPRESSION: 1. Low probability for pulmonary embolism. 2. Air trapping in both lungs may reflect COPD. SL: [id number] Chest 1view DX Clinical Indication: - chest pain 11/29/2017 [facility] Comparison: 05/23/2017 FINDINGS: The frontal chest radiograph shows normal lung volumes without interstitial or airspace opacities, pleural effusions or pneumothorax. The cardiomediastinal contours are normal. The t rachea is midline. There are no clinically significant osseous abno rmalities noted. IMPRESSION: No chest radiographic evidence of acute cardiopu lmonary disease. SL: [id number] ED Abdomen/Pelvis IV Clinical Indication: - R si ded abd pain, elevated wbc, possible cholecystitis clinically 11/27/2017 [facility] contrast only CT Comparison: None TECHNIQUE: Helical imaging w as performed after injection of IV contrast, from the diaphragm through the symphysis with multiplanar reformations obtained. CT imaging was performed with exposure control parameters to reduce radiation dose. IV CONTRAST: 100 mL of Visipaque DLP: 981.50 mGy-cm FINDINGS: Trace subsegmental atelectas is versus infiltrates at the dependent portion of the right lower lobe. No free intraperitoneal air or fluid. The gallbladder appears mildly distended, measuring up to approximately 8.5 cm in maximal diameter. No overt gallbladder wall thickening or pericholecystic fluid id entified on this examination . Radiopaque gallstone present dependently within the gallbladder lumen. The liver, spleen, pancreas, and adrenal glands are within normal limits for appearance. The kidneys enhance symmetri sharon. Mild to moderate atrophic changes of the bilateral kidneys are present. Multiple subcentimeter low-attenuation lesions are identified throughout the bilateral kidneys that are too small to defini tively characterize. Lobulated 1.4 cm cyst present at the mid left kidney posteriorly. No hydronephrosis or hydroureter. The bladder is mild to moderately distended with flui d without focal wall thicken ing. Unremarkable prostate gland. Tiny, fat- containing left inguinal hernia. No dilated loops of bowel. N o evidence of bowel obstruction. Nonvisualization of the appendix. Small, sliding hiatal hernia. Mild colonic stool burden. The abdominal aorta is stacy l in course without focal aneurysmal dilation. Mild to moderate atherosclerotic calcifications present at the abdominal aorta. The lumbosacral spine appears intact. IMPRESSION: 1. Mild gallbladder distent ion, measuring up to 8.5 cm in diameter with a gallstone dependently in the gallbladder lumen no overt gallbladder wall thickening or pericholecystic fluid identified on this examination. If there is pe rsistent clinical concern for acute cholecystitis, may consider clinical history medicine HIDA scan for further evaluation. 2. Mild to moderate atrophi c changes of the bilateral kidneys, suggesting sequela of chronic renal disease. 3. No bowel obstruction. Nonvisualization of th e appendix. 4. Small, sliding hiatal hernia. 5. Trace subsegmental atele ctasis versus scarring present at the dependent aspect of the right lower lobe. SL: [id number] Abdomen RUQ US Abdominal Ultrasound Limited 11/27/2017 [facility] HISTORY: - ruq pain. Nausea and vomiting. COMPARISON:None available. TECHNIQUE: Grayscale and vann ited color transverse and longitudinal transabdominal sonographic images were obtained. FINDINGS: Evaluation is limited due to overlying bowel gas . Liver: The liver measures 18 cm, borderline prominent i n size. Limited evaluation of the liver parenchyma due t o overlying bowel gas. The main portal vein demonst rates hepatopedal flow and is within normal limits for caliber. No focal liver lesion is identified. Gallbladder and biliary tree: Echogenic shadowing stones are identified. Gallb ladder sludge is present. No evidence of gallbladder w all thickening. No pericholecystic fluid is identified. No positive sonographic Vences sign was reported. The visualized CBD measures 4 mm, within normal caliber. No intrahepatic biliary dilatation is suggested. Pancreas: The pancreas is obscured by overlying bowel gas limiting evaluation. Right kidney: The right kidney measures 11 .5 x 6.8 x 5.2 cm. The right kidney demonstrates no hydronephrosis. A couple subcentimeter benign-appearing right renal cysts are noted. Other: No evidence of ascites on the provided images. The abdominal aorta is incom pletely visualized due to overlying bowel gas, limiting evaluation. Its visualized segments are normal in caliber. The visualized IVC is unremarkable. IMPRESSION: Limited exam due to overlying bowel gas. Cholelithiasis and gallbladd er sludge without evidence to suggest acute cholecystitis. The visualized common bile duct is within normal caliber. Limited evaluation of the pancreas. SL: [id number] Ext Lower Venous Doppler EXAM: US RIGHT LOWER EXTREMITY VENO US DOPPLER 05/23/2017 [facility] US DATE: 05/23/2017 9:07 PM CDT [facility] er INDICATION: - RLE pain and swelling ADDITIONAL INFORMATION: None. COMPARISON: None. TECHNIQUE: Multiplanar josefina fawn, color Doppler and spectral Doppler ultrasound of the lower extremity veins. DISCUSSION: Thigh Veins: Common Femoral: Patent. Femoral (SFV): Patent. Popliteal: Patent. Proximal Greater Saphenous: Patent. Deep Femoral Veins: Patent. IMPRESSION: Occlusive and ex tensive deep venous thrombosis involving the right superficial femoral vein proximally to the popliteal vein. Findings were discussed with Dr. Campos 8 at 2302 hours by telephone. [place] SECTION: Body Chest 1view DX EXAM: XR CHEST 1 VIEW 05/23/2017 [facility]ng[facility]ode[facility] edical DATE: 05/23/2017 at 2137 hours Ce nter INDICATION: Right lower extremity pain and swell ing COMPARISON: None. TECHNIQUE: AP chest FINDINGS: Lines, tubes and hardware: None. Lungs and pleura: No pulmona ry or pleural based abnormality is identified. Pulmonary vascularity is normal. Heart and mediastinum: The h eart size is normal for technique. The mediastinal contours are normal. Bones: No acute bony abnormality is identified. IMPRESSION: No acute cardiopulmonary abnormalit y. Consultation Notes No Data Provided for This Section Discharge Summaries No Data Provided for This Section History and Physicals No Data Provided for This Section Vital Signs Vital Sign Value Date Comments Source Systolic (mm Hg) 100 01/04/2018 [facility] Diastolic (mm Hg) 67 01/04/2018 [facility] st Heart Rate 101 01/04/2018 [facility] Respitory Rate 18 01/04/2018 [facility] Temperature Oral (F) 98.7 F 01/04/2018 [facility] Respitory Rate 19 01/04/2018 [facility] Heart Rate 94 01/04/2018 [facility] Systolic (mm Hg) 109 01/04/2018 [place] Diastolic (mm Hg) 64 01/04/2018 [facility] st Temperature Oral (F) 97.8 F 01/04/2018 [facility] Heart Rate 72 01/04/2018 [facility] Respitory Rate 18 01/04/2018 [facility] Systolic (mm Hg) 96 01/04/2018 [place] Diastolic (mm Hg) 61 01/04/2018 [facility] st Temperature Oral (F) 98.5 F 01/04/2018 [facility] Height 177.8 cm 01/01/2018 [facility] BMI Calculated 26.76 01/01/2018 [facility] Weight 84.6 01/01/2018 [facility] Height 177.8 cm 01/01/2018 [facility] Weight 86.364 12/31/2017 [facility] BMI Calculated 26.56 12/31/2017 [facility] Height 180.34 cm 12/31/2017 [facility] Respitory Rate 18 12/16/2017 [facility] Heart Rate 94 12/16/2017 [facility] Systolic (mm Hg) 127 12/16/2017 [place] [facility] Diastolic (mm Hg) 79 12/16/[address] Temperature Oral (F) 97.9 F 12/16/2017 [facility] Respitory Rate 18 12/15/2017 [facility] Temperature Oral (F) 98.1 F 12/15/2017 [facility] Systolic (mm Hg) 117 12/15/2017 [facility] Diastolic (mm Hg) 78 12/15/[address] Heart Rate 88 12/15/2017 [facility] Temperature Oral (F) 98.3 F 12/15/2017 [facility] Respitory Rate 18 12/15/2017 [facility] Heart Rate 77 12/15/2017 [facility] Systolic (mm Hg) 107 12/15/2017 [facility] Diastolic (mm Hg) 73 12/15/[facility] Height 177.8 cm 12/12/2017 [facility] BMI Calculated 26.46 12/12/2017 [facility] Weight 83.636 12/12/2017 [facility] Temperature Oral (F) 98.0 F 12/01/2017 [facility] Respitory Rate 18 12/01/2017 [facility] Systolic (mm Hg) 124 12/01/2017 [facility] Diastolic (mm Hg) 75 12/01/[address] Heart Rate 96 12/01/2017 [facility] Temperature Oral (F) 98.6 F 12/01/2017 [facility] Heart Rate 88 12/01/2017 [facility] Respitory Rate 16 12/01/2017 [facility] Systolic (mm Hg) 120 12/01/2017 [facility] Diastolic (mm Hg) 75 12/01/[address] Respitory Rate 18 12/01/2017 [facility] Heart Rate 96 12/01/2017 [facility] Temperature Oral (F) 98.1 F 12/01/2017 [facility] Systolic (mm Hg) 130 12/01/2017 [facility] Diastolic (mm Hg) 82 12/01/[address] Weight 90 11/30/2017 [facility] BMI Calculated 28.47 11/30/2017 [facility] Height 177.8 cm 11/30/2017 [facility] Weight 90.909 11/29/2017 [facility] BMI Calculated 28.76 11/29/2017 [facility] Height 177.8 cm 11/29/2017 [facility] Temperature Oral (F) 98.3 F 11/29/2017 [facility] Heart Rate 96 11/29/2017 [facility] Respitory Rate 18 11/29/2017 [facility] Systolic (mm Hg) 98 11/29/2017 [facility] Diastolic (mm Hg) 61 11/29/[address] Systolic (mm Hg) 102 11/28/2017 [facility] Diastolic (mm Hg) 67 11/28/[address] Heart Rate 89 11/28/2017 [facility] Respitory Rate 18 11/28/2017 [facility] Temperature Oral (F) 98.1 F 11/28/2017 [facility] Respitory Rate 18 11/28/2017 [facility] Systolic (mm Hg) 100 11/28/2017 [facility] Diastolic (mm Hg) 64 11/28/[address] Heart Rate 78 11/28/2017 [facility] Temperature Oral (F) 97.7 F 11/28/2017 [facility] BMI Calculated 28.55 11/27/2017 [facility] Height 177.8 cm 11/27/2017 [facility] Weight 90.256 11/27/2017 [facility] Weight 92.443 11/27/2017 [facility] Weight 92.443 11/27/2017 [facility] Respitory Rate 18 05/24/2017 [facility] Systolic (mm Hg) 102 05/24/2017 [facility] Diastolic (mm Hg) 54 05/24/2017 [facility] Temperature Oral (F) 98.8 F 05/24/2017 [facility] Respitory Rate 16 05/24/2017 [facility] Temperature Oral (F) 98.5 F 05/24/2017 [facility] Systolic (mm Hg) 98 05/24/2017 [facility] d[facility] Diastolic (mm Hg) 59 05/24/2017 [facility] Respitory Rate 16 05/24/2017 [facility] Systolic (mm Hg) 102 05/24/2017 [facility] Diastolic (mm Hg) 55 05/24/2017 [facility] Heart Rate 90 05/24/2017 [facility] Temperature Oral (F) 98.2 F 05/24/2017 [facility] Encounters Location Location Encounter Encounter Reason Attending ADM DC Stat us Source Details Type Number For Provider Date Date [facility] [id number] Magdalena 05/24 05/24 Miguel Ángel Kirkland /2017 [facility] Inpatient [id number] Anirudh 11/27 11/29 Adonay Reyes II /2017 [facility] Inpatient [id number] [place] 11/29 12/01 Adonay Reyes II /2017 [facility] Inpatient [id number] Wilbert 12/12 12/16 Adonay Lovett /2017 [facility] Inpatient [id number] Carmen 12/31 01/04 Adonay Lund /2017 [facility] Procedures Procedure Code Date Perfomer Comments Source Cholecystectomy [id number] [facility] Assessment and Plan Assessment and Plan Date Source Extracted from:Title: RENAL progress note 01/04/2018 [facility] Author: Jonathan Shepherd MD Date: 01/04/18 Impression and Plan acute kidney injury on chronic kidney d isease is stage III in this patient with known history of chronic kidney disease, He reports his GFR was 32 1-1/2 years ago Left lateral and left flank pain etiology of which is unclea r Recent cholecystectomy Mild chronic anemia Hypocalcemia History [...] this consutl MAZIN IM / Nephrology Attending [facility] [address], [place] [facility] [id number] Extracted from:Title: General Admission H&P * Author: Carmen Lund MD Date: 12/31/17 Impression and Plan 1. Acute renal failure 2. CKD history 3. Anion gap metabolic acidosis 4. pmh of Bipolar disorder 5. GERD 6. DVT on anticoagulation PLAN: Admit to inpatient unit - anticipate 2 night stay CLARISSA: Likely prerenal secondary to fluid losses and poor po i ntake. IVF, I/O monitoring, labs for work up, CPK, Tox screen, VBG Nephrology consult Cont home medications incl anticoagulation GI, VTE ppx Pt full code Extracted from:Title: History and Physical 12/16/2017 Marc Author: Wilbert Lovett DO Date: 12/12/17 Postoperativecholecystectomyfluid rain ection;hematoma versus bilomaversusinfectious process Chronic kidney diseasestage III Bipolar disorder Lower extremity DVT on Eliquis outpatient Bent's disease GERD Plan Admit to inpatient General surgery consulted, appreciate re commendations. Recommendingobservation status with HIDA scan Blood cultures and lactic acid ordered. Patient started on empiric antibiotic therapy per surgery recommendations Continue supportive measures with IV flu ids, pain control, antiemetics as needed Keep n.p.o. except for medications at this time Hold Eliquisfor potential surgical interventionor drainage o ffluid collection Resume home medicationswhen reconciled Holding home Eliquis at this time for potentialsurgical intervention. Last dose on 12/12/17 in the morning. No SCDs due to history of lower extremity DVT Observation. General surgery consulted . Follow blood cultureresults. Continue antibioticcoverage. Follow HIDA scan results Extracted from:Title: Progress Note * 12/01/2017 Marc Author: Anirudh Rich DO Date: 11/30/17 Impression and Plan Acute on chronic cholecystitis with cholelithiasis and subse quent leukocytosis Acute hyperkalemia CLARISSA with possible underlying CKD stage III Acute gastritis with nausea vomiting secondary to above Chronic right lower extremity DVT Plan: Pt for lap ccy per gen surg today C/W IV fluids, monitor renal function closely C/W empiric IV antibiotics C/W PRN analgesics, as needed antiemetics, PPI therapy, as n eeded GI cocktail Give as needed antihypertensive medications Hold Eliquis for now, will cover the pat ient with just heparin; will need to resume eliquis tomorrow 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 Disposition: Discharge home when stable post-op and cleared by general surgery Extracted from:Title: General Admission H&P * Author: Anirudh Rich DO Date: 11/29/17 General Admission H&P * Chief Complaint 11/27/2017 14:43 abdominal pain 11/27/2017 01:36 Chief Complaint History of Present Illness This is a 52-year-old male with known pa st medical history of chronic gallstone present episodes of right upper quadrant pain in the distant past, right lower extremity DVT for which Sara has been he ld since this initial hospitalization a couple days ago when he was admitted for acute on chronic cholecystitis with cholelithiasis. The patient was planned to undergo appropriate cholecystectomy on to poplar, but he left AMA last night. He represents to the ER this afternoon complaint severe upper abdominal pain with nausea. He denies any fevers or chills. He admits that he is willing to now remai n hospitalized undergo appropriate surgi rishi intervention. Dr. Luke the surgeon who saw him initially is agreeable to taking the patient for surgical intervention on tomorrow. Review of Systems Gastrointestinal: Nausea, Vomiting, Diarrhea, Abdominal karlene n. Health Status Allergies: Allergic Reactions (Selected) Severity [...] 100 mg, 1 cap, PO, BID, PRN: Con stipation Gas-X Ultra Softgels: 160 mg, 2 tab, PO, Q4H, PRN: Gas Protonix: 40 mg, IVP, BID Saline Flush 0.9%: 10 mL, IVP, PRN, PRN: Line Flush Sodium Chloride 0.9% IV 1,000 mL: 125 ml/hr, IV, Stop: 12/29 16:04:00 CDT Xanax 0.25 mg oral tablet: 0.25 mg, 1 tab, PO, Q6H, PRN: Anx iety acetaminophen: 650 mg, 20.3 mL, PO, Q4H, PRN: Pain 1-3/Temp > 100.4 F calcium gluconate + Sodium Chloride 0.9% IV 150 mL: 3 gm, 30 mL, 360 ml/hr, IVPB, PRN, PRN: Abnormal Lab Result calcium gluconate: 2 gm, 100 mL, 200 ml/hr, IVPB, PRN, PRN: Abnormal Lab Result cefepime + Sodium Chloride 0.9% IV 100 mL: 1 gm, 25 ml/hr, I VPB, [id number] hydrALAZINE: 10 mg, 0.5 mL, IVP, Q6H, PRN: Other -See Commen t magnesium oxide: 800 mg, 2 tab, PO, PRN, PRN: Abnormal Lab R esult magnesium sulfate: 1 gm, 100 mL, 100 ml/hr, IVPB, PRN, PRN: Abnormal Lab Result magnesium sulfate: 2 gm, 50 mL, 25 ml/hr, IVPB, PRN, PRN: Ab normal Lab Result morphine Sulfate: 2 mg, 1 mL, IVP, Q4H, PRN: Pain Score 7-10 ondansetron: 4 mg, 2 mL, IVP, Q4H, PRN: Nausea and Vomiting potassium chloride: 10 mEq, 100 mL, 100 ml/hr, IVPB, PRN, PRN: Abnormal Lab Result potassium chloride: 20 mEq, 1 pkt, NJ, PRN, PRN: Abnormal La b Result potassium chloride: 20 mEq, 1 tab, PO, PRN, PRN: Abnormal La b Result potassium phosphate + Sodium Chloride 0. 9% IV 250 mL: 15 mmol, 5 mL, 63.75 ml/hr, IVPB, PRN, PRN: Abnormal Lab Result potassium phosphate + Sodium Chloride 0. 9% IV 250 mL: 30 mmol, 10 mL, [...] 20 mg, 1 tab, PO, Daily, 0 Refill (s) NexIUM: 40 mg, PO, Daily, 0 Refill(s) SEROquel 200 mg oral tablet: 200 mg, 1 t ab, PO, Daily, in the morning, 0 Refill(s) SEROquel 400 mg oral tablet: 400 mg, 1 tab, PO, Bedtime, 0 R efill(s) lisinopril: 5 mg, PO, Daily, 0 Refill(s) trazodone: 100 mg, PO, Bedtime, 0 Refill(s), Medications (26) Active Scheduled: (3) cefepime 1 gm INJ + sodium chloride 0.9% INJ 100 mL 1 gm, I VPB, [id number] dicyclomine 20 mg TAB 20 mg 1 tab, PO, QID pantoprazole 40 mg INJ 40 mg, IVP, BID Continuous: (1) sodium chloride 0.9% 1000 ml INJ 1,000 mL 1,000 mL, IV, 125 ml/hr PRN: (22) acetaminophen 650 mg/20.3ml oral LIQ 650 mg 20.3 mL, PO, Q4 H ALPRAZolam 0.25 mg TAB 0.25 mg 1 tab, PO, Q6H calcium gluconate 100mg/ml 10ml VL + sod ium chloride 0.9% INJ 150 mL 3 gm 30 mL, IVPB, PRN calcium gluconate 2 gm/ NS 100ml (Premix) 2 gm 100 mL, IVPB , PRN docusate sodium 100 mg CAP 100 mg 1 cap, PO, BID hydrALAZINE 20 mg/1 ml VL 10 mg 0.5 mL, IVP, Q6H magnesium oxide (242 mg elemental) tab 800 mg 2 tab, PO, ND N magnesium sulfate 1gm/100ml D5W premix 1 gm 100 mL, IVPB, P RN magnesium sulfate 2 gm/H20 50ml soln 2 gm 50 mL, IVPB, PRN MORPhine sulfate PF 2 mg/ml CARP 2 mg 1 mL, IVP, Q4H ondansetron 4 mg/2ml INJ VL 4 mg 2 mL, IVP, Q4H potassium chloride 10 mEq/100 ml PB 10 mEq 100 mL, IVPB, ND N potassium chloride 20 mEq ERT 20 mEq [...] All Problems Calculus of gallbladder with chronic cho lecystitis with obstruction / SNOMED CT 184581474 / Confirmed Calculus of gallbladder with chronic cho lecystitis without obstruction / SNOMED CT 404967873 / Confirmed CKD (chronic kidney disease) / SNOMED CT 5087809387 / Confir med Liver dysfunction / SNOMED CT 074120141 / Confirmed Bent disease / SNOMED CT 04261505 / Confirmed Resolved: Gallstones / SNOMED CT 138046494, Active Problems (5) Calculus of gallbladder with chronic cholecystitis with obst ruction Calculus of gallbladder with chronic cholecystitis without o bstruction CKD (chronic kidney disease) Bent disease Liver dysfunction Histories Past Medical History: Active CKD (chronic kidney disease) (1935411629) Liver dysfunction (398298970) Bent disease (59544890) Resolved Gallstones (484526247): Resolved., 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 in the distant past, right lower extremity DVT for which she is on Eliquis, Family History: No family history items have been select ed or recorded., Father due to PA greater than age 55, negative for any premature CVA Procedure history: No active procedure history items have been selected or power rded., NONE Social History Social and Psychosocial Habits Tobacco 11/27/2017 Use: Current every [...] Vital Signs (last 24 hrs) Last Charted _ Temp Oral 97.8 DegF (NOV 29 10:32) Heart Rate Apical 89 bpm (NOV 29 15:) Resp Rate 18 BRMIN (NOV 29:) SBP 120 mmHg (NOV 29:) DBP 80 mmHg (NOV 29:) SpO2 100 % (NOV 29:) Weight 90.909 kg (NOV 29 10:32) Height 177.8 cm (NOV 29 10:32) BMI 28.76 (NOV 29 10:32) General: Alert and oriented, Moderate distress. Appearance: Ill. Skin: Normal for ethnicity. Eye: Pupils are equal, round and reacti ve to light, Extraocular movements are intact, Normal conjunctiva. Respiratory: Lungs are clear to auscult ation, Respirations are non-labored, Breath sounds are equal, Symmetrical chest wall expansion. Cardiovascular: Normal rate, Regular rhythm, No murmur, No edema. Gastrointestinal: Soft, Non-distended, Normal bowel sounds. Abdomen: Right, Upper quadrant, Guarding, Tenderness, N ot rigid. Musculoskeletal Normal range of motion. Normal strength. No tenderness. Integumentary: Warm, Dry, Intact. Neurologic: Alert, Oriented, No focal d eficits, Cranial Nerves II-XII are grossly intact. Psychiatric: Cooperative, Appropriate mood and affect. Review / Management Results review: Labs [...] Acute on chronic cholecystitis with cholelithiasis and subse quent leukocytosis Acute gastritis with nausea vomiting secondary to above CLARISSA with complicating underlying CKD stage III Chronic right lower extremity DVT Plan: UNCHANGED FROM ADMIT 2 DAYS AGO Keep the patient n.p.o. 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 Await evaluation from general surgery. Signature Line Anirudh Rich DO Electronically Signed: 11/29/17 16:47 Extracted from:Title: GS Consult * Author: Jg Luke MD Date: 11/29/17 Impression and Plan Diagnosis Calculus of gallbladder with chronic cho lecystitis without obstruction ([id number] K80.10, Working, Medical). Course: Progressing as expected. Orders Lap noemi w/IOC at 1PM tomorrow. Pt coun seled re risks of bile leak, hernia, sbo, perforation bowel or vessels, pancreatitis.. Extracted from:Title: GI consult note 11/29/2017 Marc Author: Yulisa Lee MD Date: 11/28/17 52-year-old male with known past medical history of chronic gallstone present episodes of right upper quadrant pain in the distant past, right lower extremity DVT for which he is on Eliquis,presents wit h complaints of acute right upper quadra nt pain progressively worse over the past 2 days associated with nausea vomiting does not stop. He denies any chest pain or palpitations . Emergency department the patient clearly has severe right lower quadrant abdominal pain which is not improving with medications alone. CT scan and pelvis show s gallbladder distention up to 8.5 cm wi th a gallstone within the lumen. The right upper quadrant ultrasound shows cholelithiasis with sludge but no evidence of acute cholecystitis. Review of Systems Gastrointestinal: Nausea, Vomiting, Diarrhea, Abdominal karlene n. Health Status Allergies: Allergic Reactions (Selected) Severity [...] 20 mg, 1 tab, PO, Daily, 0 Refill (s) NexIUM: 40 mg, PO, Daily, 0 Refill(s) SEROquel 200 mg oral tablet: 200 mg, 1 t ab, PO, Daily, in the morning, 0 Refill(s) SEROquel 400 mg oral tablet: 400 mg, 1 tab, PO, Bedtime, 0 R efill(s) lisinopril: 5 mg, PO, Daily, 0 Refill(s) trazodone: 100 mg, PO, Bedtime, 0 Refill(s), Medications (13) Active Scheduled: (3) cefepime 1 gm INJ + sodium chloride 0.9% INJ 100 mL 1 gm, I VPB, [id number] dicyclomine 20 mg TAB 20 mg 1 tab, PO, QID pantoprazole 40 mg INJ 40 mg, IVP, BID Continuous: (1) sodium chloride 0.9% 1000 ml INJ 1,000 mL 1,000 mL, IV, 125 ml/hr PRN: (9) acetaminophen 650 mg/20.3ml oral LIQ 650 mg 20.3 mL, PO, Q4 H ALPRAZolam 0.25 mg TAB 0.25 mg 1 [...] CKD (chronic kidney disease) / SNOMED CT 2357001654 / Confir med Liver dysfunction / SNOMED CT 457552905 / Confirmed Bent disease / SNOMED CT 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 / Confirmed Resolved: Gallstones / SNOMED CT 063699804, Active Problems (3) CKD (chronic kidney disease) Bent disease Liver dysfunction Histories Past Medical History: Active CKD (chronic kidney disease) (1519187739) Liver dysfunction (298403289) 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 Gallstones (024348168): Resolved., 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 General: Alert and oriented, Mild distress. Appearance: Ill. Skin: Normal for ethnicity. Eye: Pupils are equal, round and reacti ve to light, Extraocular movements are intact, Normal conjunctiva. Respiratory: Lungs are clear to auscult ation, Respirations are non-labored, Breath sounds are equal, Symmetrical chest wall expansion. Cardiovascular: Normal rate, Regular rhythm, No murmur, No edema. Gastrointestinal: Soft, Non-distended, Normal bowel sounds. Abdomen: Right, Upper quadrant, Guarding, Tenderness, N ot rigid. Musculoskeletal Normal range of motion. Normal strength. No tenderness. Integumentary: Warm, Dry, Intact. Neurologic: Alert, Oriented, No focal d eficits, Cranial Nerves II-XII are grossly intact. Psychiatric: Cooperative, Appropriate mood and affect. CO2: 19 mEq/L Low (11/28/17 04:28:00) [...] 11/27/2017 08:48 Impression: 1. Mild gallbladder distention, measuri ng up to 8.5 cm in diameter with a gallstone dependently in the gallbladder lumen no overt gallbladder wall thickening or pericholecystic fluid identified on this examination. If there is persistent cli nical concern for acute cholecystitis, may consider clinical history medicine HIDA scan for further evaluation. 2. Mild to moderate atrophic changes of the bilateral kidneys, suggesting sequela of chronic renal disease. 3. No bowel obstruction. Nonvisualization of the appendix. 4. Small, sliding hiatal hernia. 5. Trace subsegmental atelectasis versu s scarring present at the dependent aspect of the right lower lobe. SL: [id number] Abdomen RUQ US 11/27/2017 06:47 Impression: Limited exam due to overlying bowel gas. Cholelithiasis and gallbladder sludge wi thout evidence to suggest acute cholecystitis. The visualized common bile duct is within normal caliber. Limited evaluation of the pancreas. SL: [id number] Impression and plan: Right upper quadrant pain: - likley from cholecystitis though no e/ o cholecystitis on ultrasound of abdomen - Peptic ulcer disease needs to be ruled out - hemodynamically stable - no other complaints at this time plan; - will request pt to follow up with gi a s an out pt for possible EGD for further eval if the pain remains persistent even after cholecystectomy - oral protonix 40mg daily for now - follow up further recommendations as per surgery team Extracted from:Title: Progress Note * Author: Anirudh Rich DO Date: 11/28/17 Impression and Plan Acute cholecystitis with cholelithiasis and subsequent leuko cytosis Acute hyperkalemia CLARISSA with possible underlying CKD stage III Acute gastritis with nausea vomiting secondary to above Chronic right lower extremity DVT Plan: Keep the patient n.p.o. for medications, patient seen by general surgeon today. Give patient Kayexalate and albuterol, follow repeat labs la ter today. 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 Await evaluation from general surgery. Extracted from:Title: General Admission H&P * Author: Anirudh Rich DO Date: 11/27/17 Impression and Plan Acute cholecystitis with cholelithiasis and subsequent leuko cytosis Acute gastritis with nausea vomiting secondary to above CLARISSA with possible underlying CKD stage III Chronic right lower extremity DVT Plan: Keep the patient n.p.o. 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 Await evaluation from general surgery. Plan of Care No Data Provided for This Section Social History Social History Date Source Social History TypeResponse 01/01/2018 [facility] Substance Abuse Use: None. Alcohol Never Smoking Status Current every day smoker; Ready to phan e: No; Concerns about tobacco use in household: No; Exposure to Tobacco Smoke None; Cigarette Smoking Last 365 Days No; Reg Smoking Cessation Counseling No entered on: 12/31/17 Social History TypeResponse 05/24/2017 [facility] Smoking Status Current every day smoker; Ready to phan e: No; Concerns about tobacco use in household: No; Exposure to Tobacco Smoke None; Cigarette Smoking Last 365 Days No; Reg Smoking Cessation Counseling No entered on: 05/23/17 Family History No Data Provided for This Section Advance Directives No Data Provided for This Section Functional Status No Data Provided for This Section
--- OUTSIDE RECORDS SUMMARY | 2019-08-14 20:28 | XMS REPORT | Continuity of Care Document ---
:1965 Author Organization [facility] t Address [address] [place] [address] Care Team Providers Name Role Phone Asked, Pcp Primary Care Physician Unavailable Kevon Attending Clinician Bony Attending Clinician Alyce Reyes II Attending Clinician Morelia Kirkland Attending Clinician Kevon Admitting Clinician Bony Admitting Clinician Alyce Reyes II Admitting Clinician Payers Payer Name Policy Type Policy Number Effective Date Expiration Date S ource Problems Condition Condition Condition Status Onset Resolution Last Treating Co mments Source Name Details Category Date Date Treatment Clinician Date (L) SIDE Diagnosis Active 2017-032018-05-03 M H PAIN 0-19 13:25:00 [place] (L) SIDE 00:00: st PAIN 00 Active 12/31/2017 [place] FLANK PAIN Diagnosis Active 2017-12-15 MH 12-12 12:27:00 [place] FLANK 06:00: st PAIN 00 Active 12/12/2017 [facility] CP Diagnosis Active 2017-11-30 11-29 09:29:00 [place] CP 00:00: st 00 Active 11/29/2017 [facility] ABDOMINAL Diagnosis Active 2017-11-29 PAIN -14 11:47:00 [place] 00:00: st ABDOMINAL 00 PAIN Active 11/26/2017 [facility] Intentiona Intentiona Disease [place] drug l drug 3-13 [facility] overdose overdose 00:00: st 00 LEG PAIN Diagnosis Active 2017-05-23 M H 3-11 21:28:00 [place] LEG PAIN 00:00: Medica l 00 Center Active 05/23/2017 [facility] Chronic Chronic Problem Active [facility] kidney kidney [facility] - disease, disease, Memori a stage 3 stage 3 l Outpati ent Clinics Chronic Chronic Problem Active [facility] deep vein deep vein Luke s - thrombosis thrombosis Me moritierney (DVT) of (DVT) of l femoral femoral Outpati vein of vein of ent right right Clinics lower lower extremity extremity Tobacco Tobacco Problem Active [facility] abuse abuse [facility] - counseling counseling Me moria l Outpati ent Clinics Bipolar Bipolar Problem Active [facility] disorder disorder [facility] - with with Memoria moderate moderate l depression depression Ou tpati ent Clinics Gastroesop Gastroesop Problem Active [facility] hageal hageal [facility] - reflux reflux Memoria disease, disease, l esophagiti esophagiti Ou tpati s presence s presence en t not not Clinics specified specified Essential Essential Diagnosis Active [facility] (primary) (primary) Luke s - hypertensi hypertensi Me moria on on l Outpati ent Clinics Acute Problem 2017-08-30 embolism 13:20:15 [place] and Acute Medical thrombosis embolism Cent er of right and popliteal thrombosis vein of right popliteal vein 8 [facility] Chronic Problem 2017-08-30 kidney 13:20:15 [place] disease, Chronic Medic al unspecifie kidney Center d disease, unspecifie d 08/30/2017 [facility] Acute Problem 2018-07-04 kidney 13:11:13 [facility] failure, Acute st unspecifie kidney d failure, unspecifie d 07/04/2018 [place] Problem 2018-07-24 H 's disease 12:47:[address] Kaveh 's disease 07/24/2018 [facility] Chronic Problem 2018-06-20 embolism 13:17:49 [place] [address] Chronic [address] thrombosis embolism of and unspecifie thrombosis d deep of veins of unspecifie right d deep lower veins of extremity right lower extremity 06/20/2018 [facility] Chronic Problem 2018-07-24 kidney 12:47:31 [place] disease, Chronic st stage 3 kidney (moderate) disease, stage 3 (moderate) 07/24/2018 [facility] Nicotine Problem 2018-07-24 dependence 12:47:31 [place] , Nicotine st cigarettes dependence , , uncomplica cigarettes maame , uncomplica maame 07/24/2018 [facility] Acute Problem 2018-06-20 gastritis 13:17:49 [place] without Acute st bleeding gastritis without bleeding 06/20/2018 [facility] Constipati Problem 2018-06-17 M H on, 11:20:[address] [place] [address] d Constipati on, unspecifie d 06/17/2018 [facility] Hyperkalem Problem 2018-06-20 M H ia 13:17:[address] Hyperkalem ia 06/20/2018 [facility] 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-07-24 (current) 12:47:31 [place] use of Long [facility] anticoagul term ants (current) use of anticoagul ants 9 [facility] Calculus Problem Active 2018-07-24 in biliary 12:47:31 [place] [address] 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) Active Problem 07/24/2018 [facility] Bipolar Problem Active 2018-07-24 disorder 12:47:31 [place] (disorder) Bipolar st disorder (disorder) Active Problem 07/24/2018 [facility] Chronic Problem Active 2018-07-24 cholecysti 12:47:31 [place] tis with Chronic st calculus cholecysti (disorder) tis with calculus (disorder) Active Problem 07/24/2018 [facility] Chronic Problem Active 2018-07-24 kidney 12:47:31 [place] disease Chronic Medica l (disorder) kidney Center , disease MH (disorder) [facility] a st Active Problem 07/24/2018 [facility] Decreased Problem Active 2018-07-24 liver 12:47:31 [place] function Medical (finding) Decreased Cent er, liver function [place] (finding) st Active Problem 07/24/2018 [facility] Deep Problem Active 2018-07-24 venous 12:47:[address] [place] [address] (disorder) venous thrombosis (disorder) Active Problem 07/24/2018 [facility] [place] Problem Active 2018-07-24 M H 's chorea 12:47:31 [place] (disorder) Medica l [place] , 's chorea MH (disorder) [place] a st Active Problem 07/24/2018 [facility] Suicidal Problem 2018-07-04 ideations 13:11:[address] ideations 07/04/2018 [facility] Chronic Problem 2018-07-04 embolism 13:11:13 [place] [address] Chronic [address] thrombosis embolism of and unspecifie thrombosis d deep of veins of unspecifie unspecifie d deep d lower veins of extremity unspecifie d lower extremity 07/04/2018 [facility] Other Problem 2018-07-04 ascites 13:11:[address] [place] [address] ascites 07/04/2018 [facility] Other Problem 2018-07-04 infectious 13:11:13 [place] disease Other st infectious disease 07/04/2018 [facility] Right Problem 2018-07-04 upper 13:11:[address] [place] [address] pain upper quadrant pain 9 [facility] Cyst of Problem 2018-07-04 kidney, 13:11:13 [place] acquired Cyst of st kidney, acquired 07/04/2018 [facility] Other Problem 2018-07-04 surgical 13:11:13 [place] [address] procedures Other [address] as the surgical cause of procedures abnormal as the reaction cause of of the abnormal patient, reaction or of of the later patient, complicati or of on, later without complicati mention of on, misadventu without re at the mention of time of misadventu the re at the procedure time of the procedure 07/04/2018 [facility] Bipolar Problem 2018-07-24 disorder, 12:47:31 [place] unspecifie Bipolar st d disorder, unspecifie d 07/24/2018 [facility] Gastro-eso Problem 2018-07-24 M H phageal 12:47:[address] disease Gastro-eso without phageal esophagiti reflux s disease without esophagiti s 07/24/2018 [facility] Diaphragma Problem 2018-07-04 M H tic hernia 13:11:[address] [place] [address] obstructio Diaphragma n or tic hernia gangrene without obstructio n or gangrene 07/04/2018 [facility] Acquired Problem 2018-07-24 absence of 12:47:31 [place] other Acquired st specified absence of parts of other digestive specified tract parts of digestive tract 07/24/2018 [facility] Acidosis Problem 2018-07-24 12:47:[address] [place] [address] 07/24/2018 [facility] Hypertensi Problem 2018-07-24 M H ve chronic 12:47:[address] disease Hypertensi with stage ve chronic 1 through kidney stage 4 disease chronic with stage kidney 1 through disease, stage 4 or chronic unspecifie kidney d chronic disease, kidney or disease unspecifie d chronic kidney disease 07/24/2018 [facility] Hypocalcem Problem 2018-07-24 M H ia 12:47:31 [facility] st Hypocalcem ia 07/24/2018 [facility] Anemia, Problem 2018-07-24 unspecifie 12:47:31 [place] villaseñora d Anemia, st unspecifie d 07/24/2018 [facility] Dehydratio Problem 2018-07-24 M H n 12:47:31 [facility] st Dehydratio n 07/24/2018 [facility] Hypovolemi Problem 2018-07-24 M H a 12:47:[address] Hypovolemi a 07/24/2018 [facility] Hematuria, Problem 2018-07-24 M H unspecifie 12:47:[address] [place] [address] d [address] Hematuria, unspecifie d 07/24/2018 [facility] Personal Problem 2018-07-24 history of 12:47:31 [place] kasia other Personal st venous history of thrombosis other and venous embolism thrombosis and embolism 07/24/2018 [facility] ACUTE Diagnosis Active 2017-11-29 CHOLECYSTI 11:47:00 [place] villaseñora TIS ACUTE st CHOLECYSTI TIS Active [facility] CALCULUS Diagnosis Active 2017-11-30 M H OF 09:29:00 [place] [address] R W OF CHRONIC GALLBLADDE CHOLEC R W CHRONIC CHOLEC Active [facility] OTHER Diagnosis Active 2017-12-15 ASCITES 12:27:[address] ASCITES Active [facility] OTHER Diagnosis Active 2017-12-15 SPECIFIED 12:27:00 [place] DISORDERS OTHER st OF SPECIFIED PERITONEUM DISORDERS OF PERITONEUM Active [facility] ACUTE Diagnosis Active 2017-12-15 KIDNEY 12:27:00 [place] FAILURE, ACUTE st UNSPECIFIE KIDNEY D FAILURE, UNSPECIFIE D Active [facility] UNSPECIFIE Diagnosis Active 2018-05-03 D KIDNEY 13:25:[address] [place] [address] UNSPECIFIE D KIDNEY FAILURE Active [facility] Acute Problem 2017-032018-07-24 2018-07-24 M H kidney 03-15 12:47:31 12:47:31 [place] failure Acute 04:30: st with kidney 38 tubular failure necrosis with tubular necrosis 8 07/24/2018 [facility] Postproced Problem 2017-032018-07-04 2018-07-04 ural 0-17 13:11:13 13:11:13 [place] a hematoma 04:20: st of a Postproced 27 digestive ural system hematoma organ or of a structure digestive following system a organ or digestive structure system following procedure a digestive system procedure 12/29/2017 07/04/2018 [facility] Calculus Problem 2017-032018-06-20 2018-06-20 of 04-15 13:17:49 13:17:49 Shante monet gallbladde Calculus 09:42: st r with of 26 acute and gallbladde chronic r with cholecysti acute and tis chronic without cholecysti obstructio tis n without obstructio n 02/12/2018 06/20/2018 [facility] Acute Problem 2017-08-30 2017-08-30 M H embolism 05-31 13:20:15 13:20:15 [place] and Acute 02:[place]: Medical thrombosis embolism 38 Cent er of right and femoral thrombosis vein of right femoral vein 05/31/2017 08/30/2017 [facility] Acute Problem 2017-08-30 2017-08-30 M H embolism 3- 13:20:15 13:20:15 [place] and Acute 06:00: Medical thrombosis embolism 00 Cent er of and unspecifie thrombosis d deep of veins of unspecifie unspecifie d deep d distal veins of lower unspecifie extremity d distal lower extremity 05/23/2017 08/30/2017 [facility] Allergies, Adverse Reactions, Alerts Allergy Allergy Status Severity Reaction(s) Onset Inactive Treating Comm ents Source Name Type Date Date Clinician Penicill [facility] Sulfa DA Active [facility] (Sulfona 07-21 [facility] Penicill DA [facility] Sulfa DA Active [facility] (Sulfona 06-23 [facility] 00:[facility] Penicill DA Active [facility] 10[facility]22 [facility] Sulfa DA Active [facility] (Sulfona 10-22 [facility] m[facility] 00:00: [facility] Antibiot 00 l [facility] Penicill Propensi Active Hives [place] in ty to 3-12 Methodi adverse 00:00: st reaction 00 s to drug Sulfa Propensi Active Other (See Tongue [place] (Sulfona ty to Comments) 3-12 swelling Met hodi mide adverse 00:00: st Antibiot reaction 00 ics) s to drug sulfa sulfa Active Memoria drugs drugs l [facility] penicill penicill Active Memori a in in l [facility] quinolon quinolon Active Memori a e e l antibiot antibiot Trae n ics ics [facility] Food Food Active Memoria Tomatoes Tomatoes l [facility] Family History Family Member Diagnosis Comments Start Date Stop Date Source Natural brother No Known Problems [facility] Rastafarian Cousin No Known Problems [place] Rastafarian Natural daughter No Known Problems [place] Rastafarian Natural father No Known Problems Janae stobobo Rastafarian Maternal No Known Problems [place] grandfather Rastafarian Maternal No Known Problems [place] grandmother Rastafarian Natural mother No Known Problems Janae stobobo Rastafarian Paternal No Known Problems [place] grandfather Rastafarian Paternal No Known Problems [place] grandmother Rastafarian Natural sister No Known Problems Janae stobobo Rastafarian Natural son No Known Problems [place]ast[place] Family member Asthma [place] Rastafarian Family member Diabetes [place] Rastafarian Family member Heart failure [place] Rastafarian Family member Hyperlipidemia [place] Rastafarian Family member Hypertension [place] Rastafarian Family member Migraines [place] Rastafarian Family member Osteoarthritis [place] Rastafarian Family member Rashes / Skin [place] problems Rastafarian Family member Rheum arthritis [place] Rastafarian Family member Seizures [place] Rastafarian Family member Stroke Fine Rastafarian Family member Thyroid disease [place] Rastafarian Social History Social Habit Start Date Stop Date Quantity Comments Source Sex Assigned At [facility] ethodist Social History 2018-01-01 2018-01-01 [facility] 01:16:07 01:16:07 [facility] Alcohol intake 2017-11-17 2017-11-17 Current [facility] thodist 00:00:00 00:00:00 non-drinker of alcohol (finding) Smoking Status Start Date Stop Date Source Social History 2017-05-24 02:41:18 [facility] Medications Ordered Filled Start Stop Current Ordering Indication Dosage Frequency Signature Comments Components Source Medication Medication Date Date Medication? Clinician (SIG) Name Name Flomax 2017-03 No Notes: MH 0-23 (Same As: [place] 13:30: Flomax) st 00 "Do Not Crush" apixaban 2017-03 Yes 2.5 mg = 1 MH 2.5 MG Oral 0-23 tab, PO, [place] Tablet 13:29: BID, # 60 st [Eliquis] 00 tab, 0 Refill(s), Pharmacy: [facility] cy #[id number] Folic Acid 2017-03 Yes 1 mg = 1 MH 1 MG Oral 0-23 tab, PO, [place] Tablet 13:29: Daily, # st 00 30 tab, 3 Refill(s), Pharmacy: [facility] #[id number] oxybutynin 2017-03 Yes 5 mg = 1 MH 5 mg oral 0-23 tab, PO, [place] tablet, 13:29: Daily, # st extended 00 30 tab, 1 release Refill(s), Pharmacy: [facility] #[id number] ferrous 2017-03 Yes 325 mg = 1 MH sulfate 325 0-23 tab, PO, [place] MG Oral 13:29: BID, # 60 st Tablet 00 tab, 2 Refill(s), Pharmacy: [facility] #[id number] QUEtiapine 2017-03 Yes 300 mg = 3 M H 100 mg oral 0-23 tab, PO, [place] tablet 13:29: Bedtime, 0 st 00 Refill(s) Potassium 2017-03 No Notes: MH Chloride 0-22 (Same as: [place] 1.33 MEQ/ML 22:41: K-Tania) st Oral 00 With food Solution and full glass of water Acetaminoph 2017-03 No Notes: Do M H en 300 MG / 0-22 not exceed No [place]a Codeine 20:02: 4gm/day of st Phosphate 00 acetaminop 30 MG Oral hen. Tablet (Same as: [Tylenol Tylenol with with Codeine #3] Codeine # 3) ferrous 2017-03 No Notes: MH sulfate 0-22 Give with [facility] 14:41: food. iron st elemental [id number] as ferrous sulfate Dose=___mg elemental iron Folic Acid 2017-03 No Notes: MH 0-22 (Same as: [facility] 14:39: Folvite) st Seroquel 2017-03 No Notes: MH 0-21 (Same as: [facility] 02:00: SEROquel) st zolpidem 2017-03 No Notes: MH 0-21 (Same As: [facility] 02:00: Ambien) st Nicotine 2017-03 No Notes: MH 0-20 (Same as: [facility] 20:42: Habitrol) st "Remove old patch before applicatio n of new patch" WASTE: F/P - P Waste Black; E - P Waste Black sodium 2017-03 No Notes: MH bicarbonate 0-20 (sodium [place] 150 mEq + 17:44: bicarb st Dextrose 5% 00 8.4% (1 in Water IV mEq/ml) 50 850 mL ml VL) D5W 1,000 2017-03 No 1,000 mL, MH mL + sodium 0-20 Rate: 125 [place] cristhian acetate 2 16:55: ml/hr, st mEq/mL 00 Infuse intravenous over: 8.6 solution hr, Route: 150 mEq IV, Dosing Weight 84.6 kg, Total Volume: 1,075, Start date: 01/01/18 11:55:00 CDT, Duration: 30 day, Stop date: 01/31/18 11:54:00 DRIER ATTENDANT, 2.06, m2 sodium 2017-03 No Notes: MH bicarbonate 0-20 (sodium [place] 150 mEq + 16:00: bicarb st Dextrose 5% 00 8.4% (1 in Water IV mEq/ml) 50 850 mL ml VL) Protonix 2017-03 No Notes: MH 0-20 Tablet [facility] 16:00: should not st 00 be chewed or crushed. (Same as: Protonix) Lexapro 2017-03 No Notes: MH 0-20 (Same as: [facility] 16:00: Lexapro) st 00 Flagyl 2017-03 No Notes: MH 0-20 (Same as: [facility] 15:00: Flagyl) st 00 Avoid alcohol. Trazodone 2017-03 No Notes: MH 0-20 (Same As: [facility] 14:39: Desyrel) st 00 sodium 2017-03 No 1,000 mL, MH bicarbonate 0-20 Rate: 100 [place]hian 8.4% 14:10: ml/hr, st additive 00 Infuse 150 mEq + over: 10 D5W 1000 mL hr, Route: IV, Dosing Weight 84.6 kg, Total Volume: 1,000, Start date: 01/01/18 9:10:00 CDT, Duration: 30 day, Stop date: 01/31/18 9:09:00 DRIER ATTENDANT, 2.06, m2 Eliquis 2017-03 No Notes: MH 0-20 Same as: [facility] 14:00: Eliquis st 00 Buspirone 2017-03 No Notes: MH 0-20 (Same As: [facility] 14:00: BuSpar) st 00 Lisinopril 2017-03 No Notes: MH 0-20 (Same as: [facility] 14:00: Prinivil, st 00 Zestril) Trazodone 2017-03 No Notes: MH Hydrochlori 0-20 (Same As: [place] cr[place]hian de 50 MG 04:35: Desyrel) st Oral Tablet 00 Melatonin 2017-03 No Notes: MH 0-20 (Same as: [facility] 04:32: Melatonin) st 00 Oxycodone 2017-03 No Notes: MH Hydrochlori 0-20 (Same as: [place] cristhian de 5 MG 04:32: Roxicodone st Oral Tablet 00 ) Acetaminoph 2017-03 No Notes: Do M H en 0-20 not exceed [facility] 04:32: 4 gm/day. st 00 (Same as: Tylenol) Morphine 2017-03 No Notes: MH 0-20 (Same [facility] 04:32: as:MORPhin st 00 e Sulfate) Glucagon 2017-03 No 1 mg, MH 0-20 Route: IM, [place] 04:30: Drug form: st PDR/INJ, PRN, Dosing Weight 86.364, kg, PRN Blood Glucose Results, Start date: 12/31/17 23:30:00 CDT, Duration: 30 day, Stop date: 01/30/18 22:29:00 DRIER ATTENDANT Dextrose 2017-03 No 25 gm, 50 MH 50% Syringe 0-20 mL, Route: No rthea 04:30: IVP, Drug Form: INJ, Dosing Weight 86.364, kg, PRN, PRN Blood Glucose Results, Start date: 12/31/17 23:30:00 CDT, Duration: 30 day, Stop date: 01/30/18 22:29:00 DRIER ATTENDANT Ondansetron 2017-03 No Notes: MH 0-20 (Same as: [place] 04:30: Zofran) st MEDICATION WASTE Product Size: 4 mg Product Wasted: ___ mg normal 2017-03 No 1,000 mL, saline 0.9% 0-20 Rate: 150 [place] cr[place]hian IV 1,000 mL 04:30: ml/hr, st Infuse over: 6.7 hr, Route: IV, Dosing Weight 86.364 kg, Total Volume: 1,000, Start date: 12/31/17 23:30:00 CDT, Duration: 30 day, Stop date: 01/30/18 23:29:00 DRIER ATTENDANT, 2.09, m2 NS (Bolus) 2017-03 No 500 mL, MH IV 0-20 500 ml/hr, [place] 02:05: Infuse Over: 1 hr, Route: IV, 500, Drug form: INJ, ONCE, Priority: STAT, Dosing Weight 86.364 kg, Start date: 12/31/17 21:05:00 CDT, Stop date: 12/31/17 21:05:00 CDT Phenergan 2017-03 No Notes: Do MH 0-20 not give [place] 02:04: IV push. st (Same as: Phenergan) Tylenol 2017-03 No Notes: Do MH 0-20 not exceed [place] 02:04: 4 gm/day. st (Same as: Tylenol) Saline 2017-03 No Notes: Flush 0.9% 0-20 (Same as: [place] 00:29: BD st 00 Posiflush) Tramadol 2017-03 No Notes: Not 0-02 to exceed [facility] 15:27: 400mg/day. st 00 (Same As: Ultram) Protonix 2017-03 No Notes: 0-01 Tablet [facility] 21:30: should not st 00 be chewed or crushed. (Same as: Protonix) Lexapro 2017-03 No Notes: MH 0-01 (Same as: [facility] 14:00: Lexapro) st Buspar 2017-03 No Notes: MH 0-01 (Same As: [facility] 14:00: BuSpar) st influenza 2017-03 No Notes: virus 0- (Same as: [facility] vaccine, 11:53: Fluzone st inactivated 36 Quadrivale nt, Fluarix Quadrivale nt) For 3 years of age and older (0.5 mL IM) Shake well before use zolpidem 2017-03 No Notes: 0- (Same As: [facility] 02:00: Ambien) st Seroquel 2017-03 No Notes: MH 0-01 (Same as: [facility] 02:00: SEROquel) st Metronidazo 2017-03 No Notes: le 0- (Same as: [facility] 00:27: Flagyl) st Avoid alcohol. cefepime 2017-03 No Notes: 0- (Same As: [facility] 00:26: Maxipime) st 00 MEDICATION WASTE Product Size: 1000 mg Product Wasted: ___ mg Sodium No 1,000 mL, Chloride 12-12 Rate: 100 [place] 0.9% IV 23:44: ml/hr, st 1,000 mL 00 Infuse over: 10 hr, Route: IV, Dosing Weight 83.636 kg, Total Volume: 1,000, Start date: 12/12/17 18:44:00 CDT, Duration: 30 day, Stop date: 01/11/18 18:43:00 CDT, 2.05, m2 Trazodone No Notes: 12-12 (Same As: [facility] 23:44: Desyrel) st Morphine No Notes: 12-12 (Same [facility] 23:37: as:MORPhin e Sulfate) Ondansetron No Notes: 12-12 (Same as: [facility] 23:37: Zofran) MEDICATION WASTE Product Size: 4 mg Product Wasted: ___ mg Acetaminoph No Notes: Do M H en 12-12 not exceed [facility] 23:37: 4 gm/day. (Same as: Tylenol) NS (Bolus) No 1,000 mL, MH IV 12-12 2,000 [facility] 22:31: ml/hr, Infuse Over: 1 hr, Route: IV, ONCE, Priority: STAT, Dosing Weight 83.636 kg, Start date: 12/12/17 17:31:00 CDT, Stop date: 12/12/17 17:31:00 CDT Acetaminoph Yes 2 tab, PO, en 300 MG / 12-12 Q6H, PRN [place] Codeine 22:29: Pain, # 56 st Phosphate 00 tab, 0 30 MG Oral Refill(s) Tablet [Tylenol with Codeine #3] pantoprazol Yes 40 mg = 1 M H e 40 MG 9-30 tab, PO, [place] Enteric 22:28: Daily, # st Coated 00 30 tab, 0 Tablet Refill(s) [Protonix] Escitalopra Yes 10 mg = 1 M H m 10 MG 9-30 tab, PO, [place] Oral Tablet 22:27: Daily, # st [Lexapro] 00 30 tab, 0 Refill(s) Escitalopra No 20 mg = 1 M H m 20 MG 9-30 tab, PO, [place] Oral Tablet 22:27: Daily, # st [Lexapro] 00 30 tab, 0 Refill(s) zolpidem 5 Yes 5 mg = 1 MH mg oral 9-30 tab, PO, [place] tablet 22:24: Bedtime, 0 st 00 Refill(s) Ondansetron No 4 mg, MH 12-12 Route: [facility] 21:33: IVP, Drug form: INJ, ONCE, Dosing Weight 83.636, kg, Priority: STAT, Start date: 12/12/17 16:33:00 CDT, Stop date: 12/12/17 16:33:00 CDT Morphine No 4 mg, 12-12 Route: [place] 21:33: IVP, ONCE, Dosing Weight 83.636, kg, Priority: STAT, Start date: 12/12/17 16:33:00 CDT, Stop date: 12/12/17 16:33:00 CDT Saline No Notes: Flush 0.9% 12-12 (Same as: [place] 21:13: BD Posiflush) Seroquel No Notes: 12-02 (Same as: [facility] 02:00: SEROquel) Acetaminoph No 2 tab, PO, MH en 300 MG / 12-01 Q6H, [facility]N [facility]: Pain Score st Phosphate 00 6-10, X 7 30 MG Oral day, # 50 Tablet tab, 0 [Tylenol Refill(s) with Codeine #3] Lisinopril No Notes: 12-01 (Same as: [facility] 14:00: Prinivil, Zestril) Nexium No 40 mg, 12-01 Route: PO, [facility] 14:00: Daily, Dosing Weight 90, kg, Start date: 12/01/17 9:00:00 CDT, Duration: 30 day, Stop date: 12/30/17 9:00:00 CDT Buspar No Notes: 12-01 (Same As: [facility] 14:00: BuSpar) Acetaminoph No Notes: Do M H en 300 MG / 12-01 not exceed No rthea Codeine 13:35: 4gm/day of st acetaminop 30 MG Oral hen. Tablet (Same as: [Tylenol Tylenol with with Codeine #3] Codeine # 3) glycopyrrol No Route: IV, ate (LYUBOVS) 11-30 Drug form: Nor cristhian 19:32: INJ, ONCE, Stop date: 11/30/17 14:32:00 CDT neostigmine No Route: IV, MH (ANES) 11-30 Drug form: [place] 19:32: INJ, ONCE, st 00 Stop date: 11/30/17 14:32:00 CDT ondansetron 2017-0 No Route: IV, MH (ANES) 11-30 Drug form: [place] 19:32: INJ, ONCE, st 00 Stop date: 11/30/17 14:32:00 CDT ePHEDrine 2017-0 No Route: IV, MH (ANES) 11-30 Drug form: [place] 19:04: INJ, ONCE, st 00 Stop date: 11/30/17 14:04:00 CDT fentaNYL 2017-0 No Route: IV, MH (ANES) 11-30 Drug form: [place] 18:59: INJ, ONCE, st Stop date: 11/30/17 13:59:00 CDT lidocaine 2017-0 No Route: IV, MH (ANES) 11-30 Drug form: [place] 18:59: INJ, ONCE, st 00 Stop date: 11/30/17 13:59:00 CDT morphine 2017-0 No Route: IV, MH Sulfate 11-30 Drug form: [place] (ANES) 18:59: INJ, ONCE, st Stop date: 11/30/17 13:59:00 CDT midazolam 2017-0 No Route: IV, MH (ANES) 11-30 Drug form: [place] 18:59: SOLN, st 00 ONCE, Stop date: 11/30/17 13:59:00 CDT propofol 2017-0 No Route: IV, MH (ANES) 11-30 Drug form: [place] 18:59: INJ, ONCE, st 00 Stop date: 11/30/17 13:59:00 CDT dexamethaso 2017-0 No Route: IV, MH ne (ANES) 11-30 Drug form: [place] 18:59: INJ, ONCE, st 00 Stop date: 11/30/17 13:59:00 CDT rocuronium 2017-0 No Route: IV, M H (ANES) 11-30 Drug form: [place] 18:59: INJ, ONCE, st 00 Stop date: 11/30/17 13:59:00 CDT Lactated 2017-0 No Route: IV, MH Ringers 11-30 Total [place] Injection 17:44: Volume: st IV (ANES) 00 1,000, 1000 mL Start date: 11/30/17 12:44:00 CDT, Stop date: 11/30/17 13:44:00 CDT Ondansetron No Notes: 11-30 (Same as: [facility] 17:36: Zofran) st 00 MEDICATION WASTE Product Size: 4 mg Product Wasted: ___ mg Naloxone No Notes: 11-30 Same as [facility] 17:36: Narcan st Flumazenil No Notes: 11-30 (Same as: [facility] 17:36: Romazicon) st Morphine No Notes: 11-30 (Same [facility] 17:36: as:MORPhin st e Sulfate) Hydromorpho No Notes: ne 11-30 Same as: [facility] 17:36: Dilaudid st Hydralazine No Notes: 11-30 (Same as: [facility] 17:36: Apresoline st 00 ) Push over 5 minutes Metoprolol No Notes: 11-30 (Same as: [facility] 17:36: Lopressor) st 00 Push over 2 minutes Calcium No 1,000 mL, Chloride 11-30 Rate: 25 [place] 0.0014 17:33: ml/hr, st MEQ/ML / 00 Infuse Potassium over: 40 Chloride hr, Route: 0.004 IV, Dosing MEQ/ML / Weight 90 Sodium kg, Total Chloride Volume: 0.103 1,000, MEQ/ML / Start Sodium date: Lactate 11/30/17 0.028 12:33:00 MEQ/ML CDT, Stop Injectable date: Solution 12/01/17 9:57:00 CDT, 2.12, m2 Lactated No 1,000 mL, Ringers IV 11-30 Rate: 40 [place] 1,000 mL 17:22: ml/hr, st 00 Infuse over: 25 hr, Route: IV, Dosing Weight 90 kg, Total Volume: 1,000, Start date: 11/30/17 12:22:00 CDT, Stop date: 12/01/17 9:57:00 CDT, 2.12, m2 Pepcid No Notes: MH -18 (Same as: [facility] 04:09: Pepcid) st Can be dilute in 5-10cc NS IVP: Slow IV push over at least 2 minutes. Buspar Yes 15 mg, PO, MH -18 Daily, 0 [facility] 03:34: Refill(s) st 00 lisinopril No 5 mg = 1 MH 5 mg oral 11-30 tab, PO, [facility] a tablet 03:34: Daily, # st 00 30 tab, 0 Refill(s) Aspirin No Notes: -17 Take with [facility] 22:16: food. st cefepime No Notes: 11-29 (Same As: [facility] 22:00: Maxipime) MEDICATION WASTE Product Size: 1000 mg Product Wasted: ___ mg Bentyl No Notes: 11-29 (Same as: [facility] 22:00: Bentyl) Calcium No Notes: Gluconate 11-29 WASTE: F/P [place] 21:06: - Sink; E st - Municipal Trash Bin Magnesium No Notes: Oxide 11-29 (Same as: [facility] 21:06: Mag-Ox st 00 400) Magnesium oxide [id number] g elemental magnesium Dose=____m g magnesium oxide (___mg elemental magnesium) Magnesium No Notes: Sulfate 11-29 WASTE: F/P [facility] a 21:06: - Sink; E - Municipal Trash Bin Potassium No Notes: Chloride 11-29 Infuse at [facility] a 21:06: a rate of st 00 10 mEq/hr. (Same as: KCL) potassium No Notes: phosphate-s 11-29 (Same as: [facility] odium 21:06: Phos-NaK) st phosphate 00 Each 1.5 250 mg-280 gm pkt has mg-160 mg 250mg oral powder phosphorou for s. Mix reconstitut w/2.5oz ion water and stir. potassium No Notes: phosphate 11-29 (Same as: [facility] 21:06: K st 00 Phosphate. ) Do not infuse phosphorou s concurrent ly in the same line as TPN or IVF that contains calcium. For double lumen central lines, phosphorou s may be infused in a separate lumen from TPN. 1 mMol phoshate has 1.47 mEq potassium Infuse over 4 hours sodium No Notes: phosphate 11-29 Infuse [place] 21:06: over 4 st 00 hour. Do not infuse phosphorou s concurrent ly in the same line as TPN or IVF that contains calcium. For double lumen central lines, phosphorou s may be infused in a separate lumen from TPN. Docusate No Notes: Sodium 100 11-29 (Same as: [place] MG Oral 21:05: Colace) st Capsule 00 (Do Not [Colace] Crush) Hydralazine No Notes: 11-29 (Same as: [place] 21:05: Apresoline st 00 ) Push over 5 minutes Morphine No Notes: 11-29 (Same [facility] 21:05: as:MORPhin st 00 e Sulfate) Sodium No 1,000 mL, Chloride 11-29 Rate: 125 [place] 0.9% IV 21:05: ml/hr, st 1,000 mL 00 Infuse over: 8 hr, Route: IV, Dosing Weight 90.909 kg, Total Volume: 1,000, Start date: 11/29/17 16:05:00 CDT, Duration: 30 day, Stop date: 12/29/17 16:04:00 CDT, 2.13, m2 Ondansetron No Notes: 11-29 (Same as: [facility] 21:05: Zofran) st 00 MEDICATION WASTE Product Size: 4 mg Product Wasted: ___ mg Acetaminoph No Notes: Max en 11-29 acetaminop [facility] 21:05: hen = st 00 4000mg/day (4 gm/day). (Same as: Tylenol) Alprazolam No Notes: 0.25 MG 11-29 With food [facility] Oral Tablet 21:05: or milk st [Xanax] 00 (Same as: Xanax) tramadol No Notes: Not hydrochlori 11-29 to exceed Nor cristhian de 50 MG 21:05: 400mg/day. st Oral Tablet 00 (Same As: Ultram) Gas-X Ultra No Notes: Softgels 11-29 (Same as: [facility] 21:05: Mylicon) st Protonix No Notes: 11-29 Tablet [facility] 21:03: should not st 00 be chewed or crushed. (Same as: Protonix) Flagyl No 500 mg, 11-29 Route: [facility] 18:16: IVPB, st 00 ONCE, Dosing Weight 90.909, kg, Priority: STAT, Start date: 11/29/17 13:16:00 CDT, Stop date: 11/29/17 13:16:00 CDT, ABX Indication : Intra-abdo malena Infection Zofran No 4 mg, 11-29 Route: [facility] 18:00: IVP, Drug st 00 form: INJ, ONCE, Dosing Weight 90.909, kg, Priority: STAT, Start date: 11/29/17 13:00:00 CDT, Stop date: 11/29/17 13:00:00 CDT Morphine No 4 mg, 11-29 Route: [facility] 18:00: IVP, ONCE, st 00 Dosing Weight 90.909, kg, Priority: STAT, Start date: 11/29/17 13:00:00 CDT, Stop date: 11/29/17 13:00:00 CDT Saline No Notes: Flush 0.9% 11-29 (Same as: [place] [facility] 16:07: BD Posiflush) Lexapro No Notes: 11-29 (Same as: [facility] 14:00: Lexapro) Buspar No Notes: 11-29 (Same As: [facility] 14:00: BuSpar) quetiapine No Notes: 11-28 (Same as: [facility] 22:00: SEROquel) Hydralazine No Notes: Hydrochlori 11-28 (Same as: Fausto cristhian de 25 MG 14:25: Apresoline st Oral Tablet ) May interfere w/enteral feedings Take With Food Albuterol No Notes: SEE MH 0.83 MG/ML 11-28 RT [place] Inhalant 14:23: DOCUMENTAT st Solution 00 ION (Same as: Proventil) Kayexalate No Notes: 11-28 (sodium [place] 14:23: polystyren st 00 e sulfonate 15 gm/60 ml DEE) Shake well before use. (Same as: Kayexalate , SPS) quetiapine No Notes: 11-28 (Same as: [place] 14:00: SEROquel) Escitalopra No Notes: [facility] 11-28 (Same as: [facility] 14:00: Lexapro) cefepime No Notes: 11-27 (Same As: [facility] 20:00: Maxipime) 00 MEDICATION WASTE Product Size: 1000 mg Product Wasted: ___ mg quetiapine No 200 mg = 1 M H 200 MG Oral 9-15 tab, PO, [place] Tablet 19:53: Daily, in st [Seroquel] 00 the morning, 0 Refill(s) quetiapine No 400 mg = 1 M H 400 MG Oral 9-15 tab, PO, [place] Tablet 19:53: Bedtime, 0 st [Seroquel] 00 Refill(s) Trazodone Yes 100 mg, MH 9-15 PO, [place] 19:53: Bedtime, st 00 PRN Sleep, 0 Refill(s) Nexium 0 No 40 mg, PO, MH 9-15 Daily, 0 [place] 19:53: Refill(s) st 00 Lisinopril 0 No 5 mg, PO, MH 9-15 Daily, 0 [place] 19:53: Refill(s) st 00 Eliquis 2018-0 No 5 mg, PO, MH 9-15 BID, 0 [place] 19:53: Refill(s) st 00 Buspar 2017-0 No 15 mg, PO, MH 9-15 Daily, 0 [place] 19:53: Refill(s) st 00 Escitalopra No 20 mg = 1 M H m 20 MG 9-15 tab, PO, [place] Oral Tablet 19:53: Daily, 0 st [Lexapro] 00 Refill(s) Solu-Medrol No 60 mg, MH 11-27 Route: [facility] 19:03: IVP, Drug st 00 form: INJ, ONCE, Dosing Weight 92.443, kg, Priority: STAT, Start date: 11/27/17 14:03:00 CDT, Stop date: 11/27/17 14:03:00 CDT Benadryl No 25 mg, 1 MH 11-27 tab, [place] 19:03: Route: PO, st 00 Drug form: TAB, Q8H, Dosing Weight 92.443, kg, PRN Allergic reaction, Priority: STAT, Start date: 11/27/17 14:03:00 CDT, Duration: 30 day, Stop date: 12/27/17 14:02:00 CDT Bentyl No Notes: 11-27 (Same as: [place] 18:00: Bentyl) st Alprazolam No Notes: 0.25 MG 11-27 With food [facility] Oral Tablet 17:37: or milk st [Xanax] 00 (Same as: Xanax) Gas-X Ultra No Notes: Softgels 11-27 (Same as: [place] 17:37: Mylicon) st 00 Docusate No Notes: Sodium 100 11-27 (Same as: [place] MG Oral 17:37: Colace) st Capsule 00 (Do Not [Colace] Crush) Hydralazine No /=90 11-27 [place] 17:37: st 00 tramadol No Notes: Not hydrochlori 11-27 to exceed Nor cristhian de 50 MG 17:37: 400mg/day. st Oral Tablet 00 (Same As: Ultram) Morphine No Notes: 11-27 (Same [place] 17:37: as:MORPhin st 00 e Sulfate) Sodium No 1,000 mL, Chloride 11-27 Rate: 125 [place] 0.9% IV 17:37: ml/hr, st 1,000 mL 00 Infuse over: 8 hr, Route: IV, Dosing Weight 92.443 kg, Total Volume: 1,000, Start date: 11/27/17 12:37:00 CDT, Duration: 30 day, Stop date: 12/27/17 12:36:00 CDT Ondansetron No Notes: 11-27 (Same as: [facility] 17:37: Zofran) st 00 MEDICATION WASTE Product Size: 4 mg Product Wasted: ___ mg Acetaminoph No Notes: Max en 11-27 acetaminop [facility] 17:37: hen = st 00 4000mg/day (4 gm/day). (Same as: Tylenol) Protonix No Notes: For 11-27 IV push [facility] 17:35: reconstitu st 00 te with 10 ml 0.9% sodium chloride and push over 2 minutes. (Same as: Protonix) Levaquin No Notes: 11-27 (Same [facility] 17:35: as:Levaqui st 00 n) Flagyl No Notes: 11-27 (Same as: [facility] 17:30: Flagyl) st Avoid alcohol. Cipro No Notes: Do 11-27 not [facility] 17:30: refrigerat st 00 e Morphine 2017-0 No 4 mg, 11-27 Route: [facility] 16:33: IVP, ONCE, st 00 Dosing Weight 92.443, kg, Priority: STAT, Start date: 11/27/17 11:33:00 CDT, Stop date: 11/27/17 11:33:00 CDT Visipaque 2017-0 No 100 mL, MH 320 mg/mL 11-27 Route: [facility] injectable 12:59: IVP, st solution 00 Dosing Weight 92.443, kg, ONCALL, GFR </= 45 mL/min, STAT, Start date: 11/27/17 7:59:00 CDT, Duration: 1 doses or times Zofran 2017-0 No 4 mg, 11-27 Route: [facility] 11:21: IVP, Drug st 00 form: INJ, ONCE, Dosing Weight 92.443, kg, Priority: STAT, Start date: 11/27/17 6:21:00 CDT, Stop date: 11/27/17 6:21:00 CDT Morphine 2017-0 No 4 mg, 11-27 Route: [facility] 11:21: IVP, ONCE, st 00 Dosing Weight 92.443, kg, Priority: STAT, Start date: 11/27/17 6:21:00 CDT, Stop date: 11/27/17 6:21:00 CDT Sodium 2018-0 No 1,000 mL, Chloride 11-27 1000 [place] 0.9% 08:53: ml/hr, st (Bolus) IV 00 Infuse Over: 1 hr, Route: IV, 1,000, Drug form: INJ, ONCE, Priority: STAT, Dosing Weight 92.443 kg, Start date: 11/27/17 3:53:00 CDT, Stop date: 11/27/17 3:53:00 CDT Trazodone 2017-0 No Notes: 11-27 (Same As: [facility] 05:07: Desyrel) st 00 QUEtiapine 2018-0 Yes 200mg QD Take 200 [place] (SEROquel) 9-05 mg by Methodi 200 MG 11:44: mouth st tablet 23 every morning. apixaban 2018-0 Yes 5mg Q.5D Take 5 mg [place] (ELIQUIS) 5 11-17 by mouth 2 Me thodi mg tablet 09:14: (two) st 58 times a day. esomeprazol 2018-0 Yes 40mg QD Take 40 mg Fine e (NexIUM) 11-17 by mouth Metho di 40 MG 09:13: daily st capsule 34 before breakfast. busPIRone 2018-0 Yes 15mg [id number] Take 15 mg Fine (BUSPAR) 15 11-17 [id number] by mouth 3 Methodi MG tablet 09:13: 3D (three) st 34 times a day. escitalopra 2018-0 Yes 20mg QD Take 20 mg Fine m (LEXAPRO) 11-17 by mouth Meth lorena 20 MG 09:13: daily. st tablet 34 traZODone 2018-0 Yes 100mg QD Take 100 [place]ana[place] (DESYREL) 9-05 mg by Methodi 100 MG 09:13: mouth st tablet 34 nightly. lisinopril 2018-0 Yes 5mg QD Take 5 mg [place] (PRINIVIL,Z -05 by mouth Meth lorena ESTRIL) 5 09:13: daily. st mg tablet 34 {42 No 1 tab, PO, MH (rivaroxaba 3-12 [place] 15 MG 05:34: Take 15 mg Medi rishi Oral Tablet 00 tablets [facility] [Xarelto]) twice / 9 daily with (rivaroxaba food for n 20 MG 21 days. Oral Tablet Beginning [Xarelto]) day } Pack 22,take [Xarelto one 20 mg Kit] tablet daily with food for the remainder of therapy., X 30 day, # 1 pkt, 0 Refill(s) Lisinopril Lisinopril Yes James [address] [facility] Nexium Nexium Yes James [address] [facility] Immunizations Ordered Immunization Filled Immunization Date Status Commen ts Source Name Name MINORX ANG PF 2017-05-26 Completed [facility] Line 00:00:00 [facility] Vital Signs Vital Name Observation Time Observation Value Comments Source Systolic (mm Hg) 2018-01-04 17:40:00 [place] Diastolic (mm Hg) 2018-01-04 17:40:00 [facility] Heart Rate 2018-01-04 17:40:00 [facility] Respitory Rate 2018-01-04 17:40:00 [place] Temperature Oral (F) 2018-01-04 17:09:00 98.7 F [facility] Respitory Rate 2018-01-04 17:09:00 [place] Heart Rate 2018-01-04 17:09:00 [facility] Systolic (mm Hg) 2018-01-04 17:09:00 [place] Diastolic (mm Hg) 2018-01-04 17:09:00 [facility] Temperature Oral (F) 2018-01-04 13:03:00 97.8 F [facility] Heart Rate 2018-01-04 13:03:00 [facility] Respitory Rate 2018-01-04 13:03:00 [place] Systolic (mm Hg) 2018-01-04 13:03:00 [place] Diastolic (mm Hg) 2018-01-04 13:03:00 [facility] Temperature Oral (F) 2018-01-04 05:00:00 98.5 F [facility] Height 2018-01-01 05:05:00 177.8 cm [facility] BMI Calculated 2018-01-01 05:05:00 [facility] [place] Weight 2018-01-01 05:05:00 [facility] [place] Height 2018-01-01 05:00:00 177.8 cm [place] Weight 2017-12-31 23:42:00 [place] BMI Calculated 2017-12-31 23:42:00 MH [place] Height 2017-12-31 23:42:00 180.34 cm [facility] east Respitory Rate 2017-12-16 00:20:00 [facility] [place] Heart Rate 2017-12-16 00:20:00 [facility] [place] Systolic (mm Hg) 2017-12-16 00:20:00 MH [place] Diastolic (mm Hg) 2017-12-16 00:20:00 [facility] Temperature Oral (F) 2017-12-16 00:20:[address] [facility] Respitory Rate 2017-12-15 16:03:00 MH [place] Temperature Oral (F) 2017-12-15 16:03:00 98.1 F [facility] Systolic (mm Hg) 2017-12-15 16:03:00 MH [place] Diastolic (mm Hg) 2017-12-15 16:03:00 [facility] Rate 2017-12-15 16:03:00 [facility] Temperature Oral (F) 2017-12-15 12:00:00 98.3 F [facility] Respitory Rate 2017-12-15 12:00:00 [facility] [place] Heart Rate 2017-12-15 12:00:00 [facility] [place] Systolic (mm Hg) 2017-12-15 12:00:00 MH [place] Diastolic (mm Hg) 2017-12-15 12:00:00 [facility] Height 2017-12-12 20:43:00 177.8 cm [facility] BMI Calculated 2017-12-12 20:43:00 MH [place] Weight 2017-12-12 20:43:00 MH [place] Temperature Oral (F) 2017-12-01 20:45:00 98.0 F [facility] Respitory Rate 2017-12-01 20:45:00 MH [place] Systolic (mm Hg) 2017-12-01 20:45:00 MH [place] Diastolic (mm Hg) 2017-12-01 20:45:00 [facility] [place] [facility] Rate 2017-12-01 20:45:00 [facility] Temperature Oral (F) 2017-12-01 12:43:00 98.6 F [facility] Heart Rate 2017-12-01 12:43:00 [facility] [place] Respitory Rate 2017-12-01 12:43:00 MH [place] Systolic (mm Hg) 2017-12-01 12:43:00 MH [place] Diastolic (mm Hg) 2017-12-01 12:43:00 [facility] [place] Respitory Rate 2017-12-01 12:09:00 MH [place] Heart Rate 2017-12-01 05:22:00 [facility] Temperature Oral (F) 2017-12-01 05:22:00 98.1 F [place] Systolic (mm Hg) 2017-12-01 05:22:00 MH [place] Diastolic (mm Hg) 2017-12-01 05:22:00 [facility] Weight 2017-11-30 00:42:00 [facility] BMI Calculated 2017-11-30 00:42:00 MH [place] Height 2017-11-30 00:42:00 177.8 cm [facility] Weight 2017-11-29 15:32:00 [facility] BMI Calculated 2017-11-29 15:32:00 MH [place] Height 2017-11-29 15:32:00 177.8 cm [facility] Temperature Oral (F) 2017-11-29 00:00:00 98.3 F [facility] Heart Rate 2017-11-29 00:00:00 [facility] Respitory Rate 2017-11-29 00:00:00 [facility] [place] Systolic (mm Hg) 2017-11-29 00:00:00 MH [place] Diastolic (mm Hg) 2017-11-29 00:00:00 [place] Systolic (mm Hg) 2017-11-28 16:39:00 MH [place] Diastolic (mm Hg) 2017-11-28 16:39:00 MH [place] Heart Rate 2017-11-28 16:39:00 [facility] [place] Respitory Rate 2017-11-28 16:39:00 MH [place] Temperature Oral (F) 2017-11-28 16:39:00 98.1 F [facility] Respitory Rate 2017-11-28 12:00:00 [facility] [place] Systolic (mm Hg) 2017-11-28 12:00:00 MH [place] Diastolic (mm Hg) 2017-11-28 12:00:00 [facility] Heart Rate 2017-11-28 12:00:00 [facility] Temperature Oral (F) 2017-11-28 12:00:00 97.7 F [facility] BMI Calculated 2017-11-27 19:41:00 [facility] Height 2017-11-27 19:41:00 177.8 cm [facility] Weight 2017-11-27 19:41:00 [facility] Weight 2017-11-27 19:04:00 [facility] Weight 2017-11-27 06:36:00 [facility] Respitory Rate 2017-05-24 05:51:00 [facility] Sy[facility]olic [facility] 2017-05-24 05:51:00 [facility] Diastolic (mm Hg) 2017-05-24 05:51:00 [facility] Temperature Oral (F) 2017-05-24 05:51:00 98.8 F [facility] Respitory Rate 2017-05-24 03:30:00 [facility] Temperature Oral (F) 2017-05-24 03:30:00 98.5 F [facility] Systolic (mm Hg) 2017-05-24 03:30:00 [facility] Diastolic (mm Hg) 2017-05-24 03:30:00 [facility] Respitory Rate 2017-05-24 02:43:00 [facility] Systolic (mm Hg) 2017-05-24 02:43:00 [facility] Diastolic (mm Hg) 2017-05-24 02:43:00 [facility] Heart Rate 2017-05-24 01:33:00 [facility] Temperature Oral (F) 2017-05-24 01:33:00 98.2 F [facility] Procedures Procedure Date / Time Performed Performing Clinician Sourc e Cholecystectomy [facility] Plan of Care Planned Activity Planned Date Details Comments Source Future Scheduled 2019-10-14 INFLUENZA VACCINE [place] [facility] 00:00:00 [code = INFLUENZA VACCINE] Future Scheduled 2017-10-28 COLONOSCOPY SCREENING [place] [facility] 00:00:00 [code = COLONOSCOPY SCREENING] Future Scheduled 2017-10-28 SHINGLES VACCINES [place] [facility] 00:00:00 (#1) [code = SHINGLES VACCINES (#1)] Encounters Start End Encounter Admission Attending Care Care Encounter Source Date/Time Date/Time Type Type Clinicians Facility Department ID 2017-12-31 2018-01-04 Inpatient DAVIT [facility] [id number] 23:35:00 18:03:00 Adonay 04 [facility] 2017-12-31 2018-01-04 Outpatient Kevon [facility] [id number] 18:35:00 13:03:00 Carmen 2017-12-12 2017-12-16 [facility] [id number] 20:40:00 00:10:00 Oakley 03 [facility] 2017-12-12 2017-12-15 Outpatient Bony, [facility] [id number] 15:40:00 19:10:00 Wilbert 2017-11-29 2017-12-01 Inpatient DAVIT [facility] [id number] 15:19:00 20:54:00 Adonay 02 [facility] 2017-11-29 2017-12-01 Outpatient Eric [facility] [id number] 10:19:00 15:54:00 [place] 2017-11-27 2017-11-29 [facility] [id number] 06:26:00 01:31:00 Oakley 01 [facility] 2017-11-27 2017-11-28 Outpatient Reyes [facility] [id number] 01:26:00 20:31:00 [place] 2017-07-14 2017-07-14 [facility] [id number] 16:25:00 16:25:00 [facility] Medicine Outpati ent Clinics 2017-07-07 2017-07-07 [facility] [id number] 09:00:00 09:00:00 [facility] Family Medicine Medicine Outpati ent Clinics 2017-05-24 2017-05-24 Emergency MHSEGUNDOALT [facility] [id number] MH 01:32:00 06:17:00 Oakley 00 [facility] 2017-05-23 2017-05-24 Outpatient Isael [facility] [id number] 20:32:00 01:17:00 Magdalena Thibodeaux 00 Results Test Description Test Time Test Comments Results Result Comments Source RPR Qualitative 2018-12-30 12:58:17 Test Item Value Reference Range Interpretation Comme nts RPR Qual (test code = RPR Qual) Non-Reactive Non-Reactive Reactive Control (test code = Reactive Control) Reactive Weak Reactive Control (test code = Weak Reactive Weak Reactive Control) Non-Reactive Control (test code = Non-Reactive Non-Reactive Control) Lot # (test code = Lot #) [id number] N Expiration Dt (test code = Expiration Dt) 01-13-2020 N Thyroid Stimulating [id number] 08:56:30 Test Item Value Reference Range Interpretation Comments TSH (test code = TSH) 0.430 mIU/mL 0.270-4.200 Lipid [id number] 08:50:19 Test Item Value Reference Range Interpretation Comments Cholesterol Total 140 mg/dL 0-200 RISK OF HE ART (test code = DISEASEPublishe d by Cholesterol Total) [place] [employer] Fatou lyte Optimal Borderl ine Increased RiskC HOL <200 200-239 >2 40TRIG <150 150-199 >2 00HDL Male >60 <40H DL Female >60 <5 0LDL <100 130-159 >1 60LDL Near optimal is 100-129 Triglycerides (test 149 mg/dL 9-200 code = Triglycerides) HDL (test code = HDL) 40 mg/dL 40-60 LDL (test code = LDL) 71 mg/dL 0-130 The eq uation being used in this calcula tion is LDL = (Chol - H DL) - (Trig / 5) VLDL (test code = 30 mg/dL 5-40 The equati on being used VLDL) in this calcula tion is VLDL = Trig / 5 Chol/HDL (test code = 3.5 ratio 0.0-5.0 Chol/HDL) LDL/HDL Ratio (test 2 N The equa tion being used code = LDL/HDL Ratio) in thi s calculation is LDL/HDL Ratio=L DL Calc/HDL Chol Hemoglobin [id number] 08:34:46 Test Item Value Reference Range Interpretation Comments Hemoglobin A1c (test code 5.3 % 4.8-5.9 No n Diabetic = Hemoglobin A1c) 4.8-5.9%Di abetic <7.0% IG [id number] 15:05:10 Test Item Value Reference Range Interpretation Comments IG (test code = IG) 0.3 % 0.0-5.0 IG Abs (test code = IG Abs) 0 x10 N Complete Blood Count with [id number] 15:05:09 Test Item Value Reference Range Interpretation Comments WBC (test code = WBC) 7.5 x10 4.4-10.5 RBC (test code = RBC) 3.79 x10 4.10-5.70 L Hgb (test code = Hgb) 11.2 g/dL 13.4-17.4 L MCV (test code = MCV) 89.40 fL 80.00-100.00 Hct (test code = Hct) 33.9 % 38.7-52.0 L MCHC (test code = 33.00 g/dL 32.00-37.50 MCHC) RDW CV (test code = 15.4 % 11.5-14.5 H RDW CV) MCH (test code = MCH) 29.6 pg 27.0-32.5 Platelets (test code = 172.0 x10 140.0-440.0 Platelets) MPV (test code = MPV) 9.6 fL N Slide Review (test Auto Auto Result cr eated by code = Slide Review) GL_SJM_ SLIDE_REV_AUTO nRBC (test code = 0 N nRBC) NRBC Abs (test code = 0.00 x10 N NRBC Abs) IPF (test code = IPF) 0 % N Automated [id number] 15:05:09 Test Item Value Reference Range Interpretation Comments Neutro Auto (test code = Neutro 47.9 % 36.0-70.0 Auto) Lymph Auto (test code = Lymph Auto) 41.9 % 12.0-44.0 [place] Auto (test code = [place] Auto) 6.3 % 0.0-11.0 Eos, Auto (test code = Eos, Auto) 3.3 % 0.0-7.0 Basophil Auto (test code = Basophil 0.3 % 0.0-2.0 Auto) Neutro Absolute (test code = Neutro 3.6 x10 1.6-7.4 Absolute) Lymph Absolute (test code = Lymph 3.15 x10 .50-4.60 Absolute) [place] Absolute (test code = [place] .47 x10 .00-1.20 Absolute) Eos Absolute (test code = Eos 0.25 x10 0.00-0.74 Absolute) Baso Absolute (test code = Baso 0.02 x10 0.00-0.21 Absolute) Alcohol [id number] 14:06:09 Test Item Value Reference Range Interpretation Comments Ethanol Level (test <0.00 g/dL 0.00-0.01 Intoxica maame 0.080 g/dL code = Ethanol or more Level) Ethanol Inst (test <0 N code = Ethanol Inst) Comprehensive Metabolic [id number] 14:06:08 Test Item Value Reference Range Interpretation Comments Sodium Level (test code = Sodium 137.0 mmol/L 135.0-145.0 Level) Potassium Level (test code = 4.1 mmol/L 3.5-5.1 Potassium Level) Chloride Level (test code = 103 mmol/L 98-105 Chloride Level) CO2 (test code = CO2) 23 mmol/L 22-29 Anion Gap (test code = Anion 11 mmol/L 7-16 Gap) BUN (test code = BUN) 14.50 mg/dL 6.00-20.00 Creatinine Level (test code = 1.80 mg/dL 0.70-1.20 H Creatinine Level) BUN/Creat Ratio (test code = 8 N BUN/Creat Ratio) Glucose Level (test code = 98 mg/dL 70-115 Glucose Level) Calcium Level (test code = 8.4 mg/dL 8.3-10.5 Calcium Level) Alk Phos (test code = Alk Phos) 108 U/L 40-129 Bilirubin Total (test code = 0.2 mg/dL 0.1-0.9 Bilirubin Total) Albumin Level (test code = 3.6 g/dL 3.5-5.2 Albumin Level) Protein Total (test code = 5.6 g/dL 6.4-8.3 L Protein Total) ALT (test code = ALT) 10 U/L 1-41 AST (test code = AST) 14 U/L 1-40 Globulin (test code = Globulin) 2.0 g/dL 2.9-3.1 L A/G Ratio (test code = A/G 1.8 ratio N Ratio) Comprehensive Metabolic [id number] 14:06:08 Test Item Value Reference Range Interpretation Comments Sodium Level (test 137.0 mmol/L 135.0-145.0 code = Sodium Level) Potassium Level 4.1 mmol/L 3.5-5.1 (test code = Potassium Level) Chloride Level (test 103 mmol/L 98-105 code = Chloride Level) CO2 (test code = 23 mmol/L 22-29 CO2) Anion Gap (test code 11 mmol/L 7-16 = Anion Gap) BUN (test code = 14.50 mg/dL 6.00-20.00 BUN) Creatinine Level 1.80 mg/dL 0.70-1.20 H (test code = Creatinine Level) BUN/Creat Ratio 8 N (test code = BUN/Creat Ratio) Glucose Level (test 98 mg/dL 70-115 code = Glucose Level) Calcium Level (test 8.4 mg/dL 8.3-10.5 code = Calcium Level) Alk Phos (test code 108 U/L 40-129 = Alk Phos) Bilirubin Total 0.2 mg/dL 0.1-0.9 (test code = Bilirubin Total) Albumin Level (test 3.6 g/dL 3.5-5.2 code = Albumin Level) Protein Total (test 5.6 g/dL 6.4-8.3 L code = Protein Total) ALT (test code = 10 U/L 1-41 ALT) AST (test code = 14 U/L 1-40 AST) Globulin (test code 2.0 g/dL 2.9-3.1 L = Globulin) A/G Ratio (test code 1.8 ratio N = A/G Ratio) eGFR AA (test code = 48 mL/min/1.73 N eGFR (estimated eGFR AA) m2 Glomerular Filtration Rate ) is an estimated va lue, calculated from the patient's serum creatinine usin g the MDRD equation. It is NOT the patient 's actual GFR. The eGFR provides a more clinically usef ul measure of kidn ey disease than se rum creatinine alone.This calculation nuno es sex and race in to account, if the information is provided. If th e race is not provided, and t he patient is -Indira n, multiply by 1.2 12. If sex is not provided, and t he patient is fema le, multiply by 0.7 42. Results for pat ielindys <18 years of ag e have not been validated by e MDRD study and should be interpreted wit h caution. eGFR R esult Interpretation: eGFR > or = 60 is in the Normal RangeeGF R < 60 may mean kid sergio diseaseeGFR < 1 5 may mean kidney failure Rang es recommended by the National Kidney Foundation, http://nkdep.ni h.gov Comprehensive Metabolic [id number] 14:06:08 Test Item Value Reference Range Interpretation Comments Sodium Level (test 137.0 mmol/L 135.0-145.0 code = Sodium Level) Potassium Level 4.1 mmol/L 3.5-5.1 (test code = Potassium Level) Chloride Level (test 103 mmol/L 98-105 code = Chloride Level) CO2 (test code = 23 mmol/L 22-29 CO2) Anion Gap (test code 11 mmol/L 7-16 = Anion Gap) BUN (test code = 14.50 mg/dL 6.00-20.00 BUN) Creatinine Level 1.80 mg/dL 0.70-1.20 H (test code = Creatinine Level) BUN/Creat Ratio 8 N (test code = BUN/Creat Ratio) Glucose Level (test 98 mg/dL 70-115 code = Glucose Level) Calcium Level (test 8.4 mg/dL 8.3-10.5 code = Calcium Level) Alk Phos (test code 108 U/L 40-129 = Alk Phos) Bilirubin Total 0.2 mg/dL 0.1-0.9 (test code = Bilirubin Total) Albumin Level (test 3.6 g/dL 3.5-5.2 code = Albumin Level) Protein Total (test 5.6 g/dL 6.4-8.3 L code = Protein Total) ALT (test code = 10 U/L 1-41 ALT) AST (test code = 14 U/L 1-40 AST) Globulin (test code 2.0 g/dL 2.9-3.1 L = Globulin) A/G Ratio (test code 1.8 ratio N = A/G Ratio) eGFR AA (test code = 48 mL/min/1.73 N eGFR (estimated eGFR AA) m2 Glomerular Filtration Rate ) is an estimated va lue, calculated from the patient's serum creatinine usin g the MDRD equation. It is NOT the patient 's actual GFR. The eGFR provides a more clinically usef ul measure of kidn ey disease than se rum creatinine alone.This calculation nuno es sex and race in to account, if the information is provided. If th e race is not provided, and t he patient is -Indira n, multiply by 1.2 12. If sex is not provided, and t he patient is fema le, multiply by 0.7 42. Results for pat ients <18 years of ag e have not been validated by [facility] MDRD study and should be interpreted wit h caution. eGFR R esult Interpretation: eGFR > or = 60 is in the Normal RangeeGF R < 60 may mean kid sergio diseaseeGFR < 1 5 may mean kidney failure Rang es recommended by the National Kidney Foundation, http://nkdep.ni h.gov eGFR Non-AA (test 39.98 N eGFR (tish mated code = eGFR Non-AA) mL/min/1.73 m2 Glomer ular Filtration Rate ) is an estimated va lue, calculated from the patient's serum creatinine usin g the MDRD equation. It is NOT the patient 's actual GFR. The eGFR provides a more clinically usef ul measure of kidn ey disease than se rum creatinine alone.This calculation nuno es sex and race in to account, if the information is provided. If th e race is not provided, and t he patient is -Indira n, multiply by 1.2 12. If sex is not provided, and t he patient is fema le, multiply by 0.7 42. Results for pat ients <18 years of ag e have not been validated by [facility] MDRD study and should be interpreted wit h caution. eGFR R esult Interpretation: eGFR > or = 60 is in the Normal RangeeGF R < 60 may mean kid sergio diseaseeGFR < 1 5 may mean kidney failure Rang es recommended by the National Kidney Foundation, http://nkdep.ni h.gov Urine Drug [id number] 12:49:29 Test Item Value Reference Range Interpretation Comments Amphetamine Screen Ur Negative Negative (test code = Amphetamine Screen Ur) Barbiturate Screen Ur Negative Negative (test code = Barbiturate Screen Ur) Benzodiazepines Ur (test Negative Negative code = Benzodiazepines Ur) Cocaine Screen Ur (test Negative Negative code = Cocaine Screen Ur) U Methadone Scr (test Negative Negative code = U Methadone Scr) Opiate Screen Ur (test Negative Negative code = Opiate Screen Ur) U PCP Scrn (test code = Negative Negative U PCP Scrn) Cannabinoid Screen Ur Negative Negative (test code = Cannabinoid Screen Ur) U TCA (test code = U Negative Negative The res ults of all TCA) drug screen dinorah ts are only preliminar y. Clinical consideration a nd professional ju dgment should be appli ed to any drug of abu se test result, particularly wh en preliminary pos itive results are obt ained. Please order a separate confir matory test if desired . Urinalysis with Culture, if [id number] 12:42:00 Test Item Value Reference Range Interpretation Comments UA Color (test code = STRAW Yellow UA Color) UA Appear (test code = CLEAR Clear UA Appear) UA pH (test code = UA 6.5 pH) UA Spec Grav (test 1.002 1.001-1.035 code = UA Spec Grav) UA Glucose (test code NEG Negative = UA Glucose) UA Bili (test code = NEG Negative UA Bili) UA Ketones (test code NEG Negative = UA Ketones) UA Blood (test code = NEG Negative UA Blood) UA Protein (test code NEG Negative = UA Protein) UA Urobilinogen (test 0.2 mg/dL N code = UA Urobilinogen) UA Nitrite (test code NEG Negative = UA Nitrite) UA Leuk Est (test code NEG Negative = UA Leuk Est) UA Micro Ind? (test Not Indicated Not Indicated Result created by code = UA Micro Ind?) rule GL_SJM_UA_MICRO _IN D PT AND [id number] 07:25:00 Test Item Value Reference Interpretation Comments Range PT PATIENT (test 11.6 SECONDS 9.4-12.5 N code = PTP) INTERNATIONAL 1.03 INR 0.88-1.13 N NORMAL RATIO (test Unit --------- code = INR) ---------Therap eutic range for INR i s dependent upon the situation.2.0-3 .0 Prophylaxis / v enous thromboembolism , Treatment of DVT, Acute myocardia l infarction stro ke prevention, Systemic emboli sm prevention in fibrillation3.0 -4.5 AMI recurrence prev ention, Systemic emboli sm prevention in p rosthetic heart 3.0-5.4 A [place] mortality reduc tion THROMBOPLASTIN TIME 33.2 SECONDS 24-37.7 N THERAPEU TIC RANGE FOR PARTIAL (test code UNFRACTIO NATED HEPARIN = = PTT) 50.5-83.6 SEC T his test is not recommen ded to monitor low molecularweight heparin or danaparoid. Order LMWH test COLLECTION THROUGH LINES THAT HAVE BEEN PREVIOUSLY FLUS HEDWITH HEPARIN SHOULD BE AVOIDED DUE TO POSSIBLE HEPARINCONTAMIN ATION COMPREHENSIVE METABOLIC [id number] 07:22:00 Test Item Value Reference Range Interpretation Comments SODIUM (test code = 136.0 mmol/L 133-144 N NA) POTASSIUM (test code 3.7 mmol/L 3.5-5.1 N = K) CHLORIDE (test code 105 mmol/L 95-105 N = CL) CARBON DIOXIDE (test 28 mmol/L 21-32 code = CO2) ANION GAP (test code 3.0 GAP calc 4.0-15.0 L = GAP) GLUCOSE (test code = 111 MG/DL 70-110 H GLU) BLOOD UREA NITROGEN 12 MG/DL 7-18 N (test code = BUN) GLOMERULAR 36 estGFR >60 L The estimated FILTRATION RATE glomerular (test code = GFR) filtration rate is computed usingpatient ra ce, age, sex, and s scottie creatinine. If any of theneeded da ta elements are mi ssing the Laboratory can notcompute an estimation of t he glomerular filtration rate .The GFR value units = ml/min/1.73 met er squared. EstimatedGFR va lues above 60 should be interpreted as >60, not anexact number.--- DRUG DOSAGE ALERT -- - Drug dosage adjustments uti lize different calculationpara meter s. CREATININE (test 1.99 MG/DL 0.55-1.30 H Results may be code = CREAT) depressed if p atient is takingN-Acetylc ystei ne (NAC) and Metamizole (Dipyrone). TOTAL PROTEIN (test 6.8 G/DL 6.4-8.2 N code = PROT) ALBUMIN (test code = 3.5 G/DL 3.4-5.0 N ALB) ALBUMIN/GLOBULIN 1.1 RATIO 1.2-2.2 L RATIO (test code = A/G) CALCIUM (test code = 8.4 MG/DL 8.5-10.1 L CA) BILIRUBIN TOTAL 0.23 MG/DL 0.00-1.00 N (test code = BILT) BILIRUBIN DIRECT 0.11 MG/DL 0.00-0.30 N (test code = BILD) BILIRUBIN INDIRECT 0.12 MG/DL 0.2-1.3 L (test code = BILIND) SGOT/AST (test code 20 Unit/L 15-37 N = AST) SGPT/ALT (test code 19 Unit/L 12-78 N = ALT) ALKALINE PHOSPHATASE 147 Unit/L 45-117 H TOTAL (test code = ALKP) INDEX HEMOLYSIS 1 NORMAL <10 1 NORMAL (test code = MG Index/DL HEMINDEX) INDEX ICTERIC (test 1 NORMAL <2 MG 1 NORMAL code = ICTINDEX) Index/DL INDEX LIPEMIA (test 1 NORMAL <50 1 NORMAL code = LIPINDEX) MG Index/DL URINALYSIS [id number] 02:49:00 Test Item Value Reference Range Interpretation Comments UA COLOR (test code = COLORLESS DESCRIPT YELLOW COLU) UA APPEARANCE (test code CLEAR DESCRIPT CLEAR = APPU) UA GLUCOSE DIPSTICK (test NEGATIVE (0) mg/dL (NEG) 0 code = DGLUU) UA BILIRUBIN DIPSTICK NEGATIVE (0) mg/dL (NEG) 0 (test code = BILU) UA KETONE DIPSTICK (test 0 (NEG) mg/dL (NEG) 0 code = KETU) UA SPECIFIC GRAVITY (test 1.002 SG 1.001-1.035 code = SGU) UA BLOOD DIPSTICK (test NEGATIVE (0) mg/DL (NEG) 0 code = GIANCARLO) UA PH DIPSTICK (test code 6.0 pH UNITS 4.6-8.0 = SANDRA) UA PROTEIN DIPSTICK (test NEGATIVE (0) mg/dL <30 (1+) code = PROU) UA UROBILINIOGEN DIPSTICK NORMAL (0) mg/dL <2.0 (1+) (test code = URO) UA NITRITE DIPSTICK (test NEGATIVE (0) SCREEN NEG code = DEVORA) UA LEUKOCYTE ESTERASE NEGATIVE (0) (NEG) 0 DIPSTICK (test code = Leuk/mcL LEUU) UA WBC (test code = WBCU) 0-3 #WBC/HPF 0-3 UA RBC (test code = RBCU) NONE #RBC/HPF 0-3 - CT ABD PELVIS W/O [id number] 20:06:00 Patient Name: MANDY CAZARES Unit No: [id number] EXAMS: CPT CODE: [id number] CT ABD PELVIS W/O CONT 41707 Location: T 18 CT of the abdomen and CT of the pelvis , 07/21/18 CLINICAL HISTORY: Left flank pain, left upper [...] technique was utilized to reduce radiation dose. FINDIN GS: No obstructive nephropathy or radio-opaque calculi seen. [...] are clear. FLY Chawla NAME: MANDY CAZARES [address] [place] [address] PHYS: Paula Vera NP [place] [address] : 1965 AGE: 52 SEX: M LOC: B.ERS PHONE #: [phone] EXAM DATE: 07/21/2018 STATUS: REG ER FAX #: [phone] RAD #: D/C DT PAGE 1 Signed Report (CONTINUED) Patient Name: MANDY CAZARES Unit No: [id number] EXAMS: CPT CODE: [id number] CT ABD PELVIS W/O CONT 01733 <Continued> The pelvic contents are unremarkable without mass. No focal fluid collections or adenopathy. The uterus is not seen and presumably has been removed. IMPRESSION: Findings suggestive of viral enterocolitis versus ileus with mildly fluid-filled distention of small bowel loops and of the right side of the colon without associated wall thickening Mild renal atrophy at 2006 Reported and signed by: Heather Martinez M.D. CC: Paula Mandel NP Dictated Date/Time: 07/21/2018 (2005) Technologist: Ryland Case CTDI: 10.33 DLP: 582.31 Trnscrpt: 07/21/2018 (2005) [email or web address] FLY Chawla NAME: MANDY CAZARES [address] [place] [address] PHYS: KEVIN MandelPaula LEIF [place] [address] : 1965 AGE: 52 SEX: M LOC: B.ERS PHONE #: [phone] EXAM DATE: 07/21/2018 STATUS: REG ER FAX #: [phone] RAD #: D/C DT PAGE 2 Signed Report Patient Name: MANDY CAZARES Unit No: [id number] EXAMS: CPT CODE: [id number] CT ABD PELVIS W/O CONT 51754 <Continued> Orig Print D/T: S: 07/21/2018 (2008) [facility] [place] NAME: MANDY CAZARES [address] [place] [address] Blvd PHYS: Paula Vera NP [place], [place] [address] : 1965 AGE: 52 SEX: M LOC: ELVIA PHONE #: [phone] EXAM DATE: 07/21/2018STATUS: REG ER FAX #: [phone] RAD #: D/C DT PAGE 3 Signed Report COMPREHENSIVE METABOLIC [id number] 17:37:00 Test Item Value Reference Range Interpretation Comments SODIUM (test code = 137.0 mmol/L 133-144 N NA) POTASSIUM (test code 3.6 mmol/L 3.5-5.1 N = K) CHLORIDE (test code 107 mmol/L 95-105 H = CL) CARBON DIOXIDE (test 23 mmol/L 21-32 N code = CO2) ANION GAP (test code 7.0 GAP calc 4.0-15.0 N = GAP) GLUCOSE (test code = 87 MG/DL 70-110 N GLU) BLOOD UREA NITROGEN 15 MG/DL 7-18 N (test code = BUN) GLOMERULAR 32 estGFR >60 L The estimated FILTRATION RATE glomerular (test code = GFR) filtration rate is computed usingpatient ra ce, age, sex, and s scottie creatinine. If any of theneeded da ta elements are mi ssing the Laboratory can notcompute an estimation of t he glomerular filtration rate .The GFR value units = ml/min/1.73 met er squared. EstimatedGFR va lues above 60 should be interpreted as >60, not anexact number.--- DRUG DOSAGE ALERT -- - Drug dosage adjustments uti lize different calculationpara meter s. CREATININE (test 2.22 MG/DL 0.55-1.30 H Results may be code = CREAT) depressed if p atient is takingN-Acetylc ystei ne (NAC) and Metamizole (Dipyrone). TOTAL PROTEIN (test 7.4 G/DL 6.4-8.2 N code = PROT) ALBUMIN (test code = 3.7 G/DL 3.4-5.0 N ALB) ALBUMIN/GLOBULIN 1.0 RATIO 1.2-2.2 L RATIO (test code = A/G) CALCIUM (test code = 8.4 MG/DL 8.5-10.1 L CA) BILIRUBIN TOTAL 0.23 MG/DL 0.00-1.00 N (test code = BILT) BILIRUBIN DIRECT < 0.10 MG/DL 0.00-0.30 N (test code = BILD) BILIRUBIN INDIRECT 0.23 MG/DL 0.2-1.3 N (test code = BILIND) SGOT/AST (test code 19 Unit/L 15-37 N = AST) SGPT/ALT (test code 23 Unit/L 12-78 N = ALT) ALKALINE PHOSPHATASE 146 Unit/L 45-117 H TOTAL (test code = ALKP) INDEX HEMOLYSIS 1 NORMAL <10 1 NORMAL (test code = MG Index/DL HEMINDEX) INDEX ICTERIC (test 1 NORMAL <2 MG 1 NORMAL code = ICTINDEX) Index/DL INDEX LIPEMIA (test 1 NORMAL <50 1 NORMAL code = LIPINDEX) MG Index/DL [id number] 17:37:00 Test Item Value Reference Range Interpretation Comments LIPASE (test code = LIP) 121 Unit/L 114-286 N [id number] 17:37:00 Test Item Value Reference Range Interpretation Comments TROPONIN-I < 0.015 NG/ML 0.000-0.045 N An elevated tr oponin value (test code = alone is not ching fficient TROPI) todiagnose a my ocardial infarction. Rat her, the patient'sclinic al presentation (h istory, physical exam) and ECGshould be used in conj unction with troponin in the diagnostic evaluation of s uspected myocardial infa rction. Aserial samplin g protocol is recommended to facilitate theidentificati on of temporal change s in troponin levelscharacter istic of [place]. CBC W/MANUAL [id number] 17:35:00 Test Item Value Reference Range Interpretation Comments WHITE BLOOD CELL (test code = 8.8 K/mm3 4.1-12.1 N WBC) RED BLOOD CELL (test code = RBC) 4.49 M/mm3 3.8-5.5 N HEMOGLOBIN (test code = HGB) 12.6 G/DL 10.6-15.8 N HEMATOCRIT (test code = HCT) 39.0 % 36.0-47.4 N MEAN CELL VOLUME (test code = 86.9 fL 80.1-101.1 N MCV) MEAN CELL HGB (test code = MCH) 28.1 pg 25.3-35.3 N MEAN CELL HGB CONCETRATION (test 32.3 G/DL 32.7-35.1 L code = MCHC) RED CELL DISTRIBUTION WIDTH 14.5 % 12.2-16.4 N (test code = RDW) RED CELL DISTRIBUTION WIDTH 46.4 fL 35.1-43.9 H (test code = RDW-SD) PLATELET COUNT (test code = PLT) 203 K/mm3 155-337 N MEAN PLATELET VOLUME (test code 9.7 fL 7.6-10.4 N = MPV) GRANULOCYTE % (test code = GR%) 49.7 % 37.8-82.6 N IMMATURE GRANULOCYTE % (test 0.2 % 0.0-2.0 N code = IG%) LYMPHOCYTE % (test code = LY%) 40.8 % 14.1-45.4 N MONOCYTE % (test code = MO%) 6.0 % 2.5-11.7 N EOSINOPHIL % (test code = EO%) 3.1 % 0.0-6.2 N BASOPHIL % (test code = BA%) 0.2 % 0.0-2.6 N NUCLEATED RBC % (test code = 0.0 /100WBC% 0.0-1.0 N NRBC%) GRANULOCYTE # (test code = GR#) 4.39 k/mm3 2.0-13.7 N IMMATURE GRANULOCYTE # (test 0.02 K/mm3 0.00-0.03 N code = IG#) LYMPHOCYTE # (test code = LY#) 3.60 K/mm3 0.6-3.8 N MONOCYTE # (test code = MO#) 0.53 K/mm3 0.11-0.59 N EOSINOPHIL # (test code = EO#) 0.27 K/mm3 0.0-0.4 N BASOPHIL # (test code = BA#) 0.02 K/mm3 0.0-0.1 N NUCLEATED RBC # (test code = 0.00 K/mm3 0.00-0.05 N NRBC#) COMPREHENSIVE METABOLIC [id number] 17:33:00 Test Item Value Reference Range Interpretation Comments SODIUM (test code = 137.0 mmol/L 133-144 N NA) POTASSIUM (test code 3.6 mmol/L 3.5-5.1 N = K) CHLORIDE (test code 107 mmol/L 95-105 H = CL) CARBON DIOXIDE (test 23 mmol/L 21-32 N code = CO2) ANION GAP (test code 7.0 GAP calc 4.0-15.0 N = GAP) GLUCOSE (test code = 87 MG/DL 70-110 N GLU) BLOOD UREA NITROGEN 15 MG/DL 7-18 N (test code = BUN) GLOMERULAR 32 estGFR >60 L The estimated FILTRATION RATE glomerular (test code = GFR) filtration rate is computed usingpatient ra ce, age, sex, and s scottie creatinine. If any of theneeded da ta elements are mi ssing the Laboratory can notcompute an estimation of t he glomerular filtration rate .The GFR value units = ml/min/1.73 met er squared. EstimatedGFR va lues above 60 should be interpreted as >60, not anexact number.--- DRUG DOSAGE ALERT -- - Drug dosage adjustments uti lize different calculationpara meter s. CREATININE (test 2.22 MG/DL 0.55-1.30 H Results may be code = CREAT) depressed if p atient is takingN-Acetylc ystei ne (NAC) and Metamizole (Dipyrone). TOTAL PROTEIN (test G/DL 6.4-8.2 code = PROT) ALBUMIN (test code = 3.7 G/DL 3.4-5.0 N ALB) ALBUMIN/GLOBULIN RATIO 1.2-2.2 RATIO (test code = A/G) CALCIUM (test code = 8.4 MG/DL 8.5-10.1 L CA) BILIRUBIN TOTAL MG/DL 0.00-1.00 (test code = BILT) BILIRUBIN DIRECT < 0.10 MG/DL 0.00-0.30 N (test code = BILD) BILIRUBIN INDIRECT MG/DL 0.2-1.3 (test code = BILIND) SGOT/AST (test code 19 Unit/L 15-37 N = AST) SGPT/ALT (test code 23 Unit/L 12-78 N = ALT) ALKALINE PHOSPHATASE Unit/L 45-117 TOTAL (test code = ALKP) INDEX HEMOLYSIS 1 NORMAL <10 1 NORMAL (test code = MG Index/DL HEMINDEX) INDEX ICTERIC (test 1 NORMAL <2 MG 1 NORMAL code = ICTINDEX) Index/DL INDEX LIPEMIA (test 1 NORMAL <50 1 NORMAL code = LIPINDEX) MG Index/DL [id number] 17:33:00 Test Item Value Reference Range Interpretation Comments LIPASE (test code = LIP) 121 Unit/L 114-286 N [id number] 17:33:00 Test Item Value Reference Range Interpretation Comments TROPONIN-I (test code = TROPI) NG/ML 0.000-0.045 - CT ABD PELVIS W/O [id number] 15:38:00 Patient Name: MANDY CAZARES Unit No: [id number] EXAMS: CPT CODE: [id number] CT ABD PELVIS W/O CONT 11886 Site ID: [id number] CLINICAL HISTORY: Abdominal pain, [...] M.D. CC: Marge GLASER Dictated Date/Time: 06/23/2018 (1871) Technologist: Ryland Case CTDI: 10.01 DLP: 596.61 Trnscrpt: 06/23/2018 (1538) [email or web address] FLY Chawla NAME: MANDY CAZARES [address] [place] [address] PHYS: Marge Cano [place] [address] : 1965 AGE: 52 SEX: M LOC: B.ERS PHONE #: [phone] EXAM DATE: 06/23/2018 STATUS: REG ER FAX #: [phone] RAD #: D/C DT PAGE 1 Signed Report Patient Name: MANDY CAZARES Unit No: [id number] EXAMS: CPT CODE: [id number] CT ABD PELVIS W/O CONT 38053 <Continued> Orig Print D/T: S: 06/23/2018 (1544) FLY Chawla [facility] PHYS: Benigno Canomk GLASER [place] [address] : 1965 AGE: 52 SEX: M LOC: B.ERS PHONE #: [phone] EXAM DATE: 06/23/2018 STATUS: REG ER FAX #: [phone] RAD #: D/C DT PAGE 2 Signed ReportCOMPREHENSIVE METABOLIC [id number] 15:10:00 Test Item Value Reference Range Interpretation Comments SODIUM (test code = 144.0 mmol/L 133-144 N NA) POTASSIUM (test code 3.7 mmol/L 3.5-5.1 N = K) CHLORIDE (test code 112 mmol/L 95-105 H = CL) CARBON DIOXIDE (test 23 mmol/L 21-32 N code = CO2) ANION GAP (test code 9.0 GAP calc 4.0-15.0 N = GAP) GLUCOSE (test code = 79 MG/DL 70-110 N GLU) BLOOD UREA NITROGEN 14 MG/DL 7-18 N (test code = BUN) GLOMERULAR 33 estGFR >60 L The estimated FILTRATION RATE glomerular (test code = GFR) filtration rate is computed usingpatient ra ce, age, sex, and s scottie creatinine. If any of theneeded da ta elements are mi ssing the Laboratory can notcompute an estimation of t he glomerular filtration rate .The GFR value units = ml/min/1.73 met er squared. EstimatedGFR va lues above 60 should be interpreted as >60, not anexact number.--- DRUG DOSAGE ALERT -- - Drug dosage adjustments uti lize different calculationpara meter s. CREATININE (test 2.16 MG/DL 0.55-1.30 H Results may be code = CREAT) depressed if p atient is takingN-Acetylc ystei ne (NAC) and Metamizole (Dipyrone). TOTAL PROTEIN (test 6.4 G/DL 6.4-8.2 N code = PROT) ALBUMIN (test code = 3.3 G/DL 3.4-5.0 L ALB) ALBUMIN/GLOBULIN 1.1 RATIO 1.2-2.2 L RATIO (test code = A/G) CALCIUM (test code = 8.3 MG/DL 8.5-10.1 L CA) BILIRUBIN TOTAL 0.15 MG/DL 0.00-1.00 N (test code = BILT) BILIRUBIN DIRECT < 0.10 MG/DL 0.00-0.30 N (test code = BILD) BILIRUBIN INDIRECT CALC AUBREY MG/DL 0.2-1.3 L (test code = BILIND) SGOT/AST (test code 12 Unit/L 15-37 L = AST) SGPT/ALT (test code 14 Unit/L 12-78 N = ALT) ALKALINE PHOSPHATASE 123 Unit/L 45-117 H TOTAL (test code = ALKP) INDEX HEMOLYSIS 1 NORMAL <10 1 NORMAL (test code = MG Index/DL HEMINDEX) INDEX ICTERIC (test 1 NORMAL <2 MG 1 NORMAL code = ICTINDEX) Index/DL INDEX LIPEMIA (test 1 NORMAL <50 1 NORMAL code = LIPINDEX) MG Index/DL [id number] 15:10:00 Test Item Value Reference Range Interpretation Comments LIPASE (test code = LIP) 134 Unit/L 114-286 N CBC W/AUTO [id number] 14:51:00 Test Item Value Reference Range Interpretation Comments WHITE BLOOD CELL (test code = 12.0 K/mm3 4.1-12.1 N WBC) RED BLOOD CELL (test code = RBC) 3.99 M/mm3 3.8-5.5 N HEMOGLOBIN (test code = HGB) 11.2 G/DL 10.6-15.8 N HEMATOCRIT (test code = HCT) 36.1 % 36.0-47.4 N MEAN CELL VOLUME (test code = 90.5 fL 80.1-101.1 N MCV) MEAN CELL HGB (test code = MCH) 28.1 pg 25.3-35.3 N MEAN CELL HGB CONCETRATION (test 31.0 G/DL 32.7-35.1 L code = MCHC) RED CELL DISTRIBUTION WIDTH 14.5 % 12.2-16.4 N (test code = RDW) RED CELL DISTRIBUTION WIDTH 48.3 fL 35.1-43.9 H (test code = RDW-SD) PLATELET COUNT (test code = PLT) 175 K/mm3 155-337 N MEAN PLATELET VOLUME (test code 9.7 fL 7.6-10.4 N = MPV) GRANULOCYTE % (test code = GR%) 70.3 % 37.8-82.6 N IMMATURE GRANULOCYTE % (test 0.4 % 0.0-2.0 N code = IG%) LYMPHOCYTE % (test code = LY%) 21.3 % 14.1-45.4 N MONOCYTE % (test code = MO%) 5.9 % 2.5-11.7 N EOSINOPHIL % (test code = EO%) 1.8 % 0.0-6.2 N BASOPHIL % (test code = BA%) 0.3 % 0.0-2.6 N NUCLEATED RBC % (test code = 0.0 /100WBC% 0.0-1.0 N NRBC%) GRANULOCYTE # (test code = GR#) 8.42 k/mm3 2.0-13.7 N IMMATURE GRANULOCYTE # (test 0.05 K/mm3 0.00-0.03 H code = IG#) LYMPHOCYTE # (test code = LY#) 2.55 K/mm3 0.6-3.8 N MONOCYTE # (test code = MO#) 0.70 K/mm3 0.11-0.59 H EOSINOPHIL # (test code = EO#) 0.21 K/mm3 0.0-0.4 N BASOPHIL # (test code = BA#) 0.03 K/mm3 0.0-0.1 N NUCLEATED RBC # (test code = 0.00 K/mm3 0.00-0.05 N NRBC#) URINALYSIS [id number] 14:14:00 Test Item Value Reference Range Interpretation Comments UA COLOR (test code = YELLOW DESCRIPT YELLOW COLU) UA APPEARANCE (test code CLEAR DESCRIPT CLEAR = APPU) UA GLUCOSE DIPSTICK (test NEGATIVE (0) mg/dL (NEG) 0 code = DGLUU) UA BILIRUBIN DIPSTICK NEGATIVE (0) mg/dL (NEG) 0 (test code = BILU) UA KETONE DIPSTICK (test 0 (NEG) mg/dL (NEG) 0 code = KETU) UA SPECIFIC GRAVITY (test 1.010 SG 1.001-1.035 code = SGU) UA BLOOD DIPSTICK (test NEGATIVE (0) mg/DL (NEG) 0 code = GIANCARLO) UA PH DIPSTICK (test code 6.0 pH UNITS 4.6-8.0 = SANDRA) UA PROTEIN DIPSTICK (test NEGATIVE (0) mg/dL <30 (1+) code = PROU) UA UROBILINIOGEN DIPSTICK NORMAL (0) mg/Dl <2.0 (1+) (test code = URO) UA NITRITE DIPSTICK (test NEGATIVE (0) SCREEN NEG code = DEVORA) UA LEUKOCYTE ESTERASE NEGATIVE (0) (NEG) 0 DIPSTICK (test code = Leuk/mcL LEUU) UA WBC (test code = WBCU) 0-3 #WBC/HPF 0-3 UA RBC (test code = RBCU) NONE #RBC/HPF 0-3 UA MUCUS (test code = RARE /LPF NONE MUCU) UA RFLX MICR CULT IF [id number] 01:11:00 Test Item Value Reference Range Interpretation Comments UA COLOR (test code = Colorless Yellow COLU) UA APPEARANCE (test Clear Clear code = APPU) UA GLUCOSE DIPSTICK Negative Negative (test code = DGLUU) UA BILIRUBIN DIPSTICK Negative Negative (test code = BILU) UA KETONE DIPSTICK Negative mg/dL Negative (test code = KETU) UA SPECIFIC GRAVITY 1.002 <1.030 (test code = SGU) UA BLOOD DIPSTICK 1+ Negative A (test code = GIANCARLO) UA PH DIPSTICK (test 6.0 5.0-8.0 code = SANDRA) UA PROTEIN DIPSTICK NEGATIVE mg/dL Negative (test code = PROU) UA UROBILINOGEN Negative mg/dL Negative DIPSTICK (test code = URO) UA NITRITE DIPSTICK Negative Negative (test code = DEVORA) UA LEUKOCYTE ESTERASE TRACE Negative A DIPSTICK (test code = LEUU) UA WBC (test code = 0-3 /HPF <4-5 <10 WBC/ HPF = WBCUR) PYURIA ABSENT URINE CULTURE NOT INDICATED UA RBC (test code = 0-3 /HPF <4-5 RBCU) UA SQUAMOUS CELLS 0-5 (RARE) /HPF 0-5 (RARE) (test code = SQU) SOURCE OF URINE: CLEAN CATCHless than 18 yrs old, neutropenic, or urological surgery? NOPrimary Indication for Culture: OtherOther Indication: FLANK PAIN PROTHROMBIN [id number] 01:10:00 Test Item Value Reference Range Interpretation Comments PROTHROMBIN TIME 9.7 SECONDS 9.2-12.1 N PATIENT (test code = PTP) INTERNATIONAL NORMAL 0.9 The INR is to be used RATIO (test code = only for monitoring INR) ORAL ANTICOAGULANTTH ERAPY. Indicati on INR Value1. Prophylaxis/chris atment of: Venous Thrombosis, Pul monary Embolism 2.0 - 3.02. Preventi on of systemic emboli sm from: Tiss ue heart valves 2.0 - 3.0 Acute myocardial infa rction (to present systemic emboli sm)* 2.0 - 3.0 Valvular heart disease 2.0 - 3.0 Atrial fibrillation 2.0 - 3.03. Cancer Spec al prosthetic valv es (high risk) 2.5 - 3.5 * If oral anticoagulant t herapy is elected to preventrecurren t myocardial infa rction, an INR of 2.5-3 .5 isrecommended, consistent with Food and Drug Administrationr ecommen dations. THROMBOPLASTIN TIME [id number] 01:10:00 Test Item Value Reference Range Interpretation Comments THROMBOPLASTIN TIME 24.5 SECONDS 23.4-37.0 N Therap eutic Range PARTIAL (test code = for Hep janet PTT) EFFECTIVE Heparin IU/mL aPT T Seconds0.3 64.30.7 88.8 CBC W/AUTO [id number] 01:01:00 Test Item Value Reference Range Interpretation Comments WHITE BLOOD CELL (test code = 13.3 x10 3/uL 5.0-12.0 H WBC) RED BLOOD CELL (test code = 4.11 x10 6/uL 4.70-6.10 L RBC) HEMOGLOBIN (test code = HGB) 11.5 g/dL 14.0-18.0 L HEMATOCRIT (test code = HCT) 37.1 % 37.0-49.0 N MEAN CELL VOLUME (test code = 90 fL 80-94 N MCV) MEAN CELL HGB (test code = MCH) 28.0 pg 27-31 N MEAN CELL HGB CONCENTRATION 31.0 g/dL 33-37 L (test code = MCHC) RED CELL DISTRIBUTION WIDTH 14.8 % 11.5-15.5 N (test code = RDW) PLATELET COUNT (test code = 198 x10 3/uL 130-400 N PLT) MEAN PLATELET VOLUME (test code 10.1 fL 9.4-16.4 N = MPV) NEUTROPHIL % (test code = NT%) 65.3 % 43-65 H IMMATURE GRANULOCYTE % (test 0.6 % 0.0-2.0 N code = IG%) LYMPHOCYTE % (test code = LY%) 24.1 % 20.5-45.5 N MONOCYTE % (test code = MO%) 7.6 % 5.5-11.7 N EOSINOPHIL % (test code = EO%) 2.2 % 0.9-2.9 N BASOPHIL % (test code = BA%) 0.2 % 0.2-1.0 N NUCLEATED RBC % (test code = 0.0 % 0-1.0 N NRBC%) NEUTROPHIL # (test code = NT#) 8.66 x10 3/uL 2.2-4.8 H IMMATURE GRANULOCYTE # (test 0.08 x10 3/uL 0-0.03 H code = IG#) LYMPHOCYTE # (test code = LY#) 3.20 x10 3/uL 1.3-2.9 H MONOCYTE # (test code = MO#) 1.01 x10 3/uL 0.3-0.8 H EOSINOPHIL # (test code = EO#) 0.29 x10 3/uL 0.0-0.2 H BASOPHIL # (test code = BA#) 0.03 x10 3/uL 0.0-0.1 N - CT ABD PELVIS W/O [id number] 00:23:00 FAX: Josr Sanchez NP [phone] [place]: St: PRE Name: MANDY CAZARES [facility] : 1965 Age/S: 52/M [address] Unit: [id number] Loc: [place] [address] Phys: Josr Sanchez NP Acct: [id number] Dis Date: Status: PRE ER PHONE #: [phone] Exam Date: 04/20/2018 0005 FAX #: [phone] Reason: BILATERAL FLANK PAIN EXAMS: CPT CODE: [id number] CT ABD PELVIS W/O CONT 22114 EXAM: CT ABDOMEN AND PELVIS WITHOUT CONTRAST. INDICATION: BILATERAL FLANK PAIN COMPARISON: April 06, 2018 TECHNIQUE: Axial CT imaging of the abdomen and pelvis was obtained without administration of intravenous contrast. Coronal and sagittal reformatted images were submitted for review. IV contrast: None DLP: 708.98 mGy- cm FINDINGS: The heart size is normal. The [...] Signed Report (CONTINUED) FAX: Josr Sanchez NP [phone] [place]: St: PRE Name: MANDY CAZARES [facility] : 1965 Age/S: 52/M [address] Unit: [id number] Loc: [place] [address] Phys: Josr Sanchez NP Acct: [id number] Dis Date: Status: PRE ER PHONE #: [phone] Exam Date: 04/20/2018 0005 FAX #:[phone] Reason: BILATERAL FLANK PAIN EXAMS: CPT CODE: [id number] CT ABD PELVIS W/O CONT 93973 <Continued> adjustment of the mA and or kV according to patient size and/or use of iterative reconstruction technique. at 0023 Reported and signed by: Jill Keating MD CC: Josr Sanchez NP Technologist: Yadira Villafana Trnscrd Dt/Tm: 04/20/2018 (0023) 16 Orig Print D/T: S: 04/20/2018 (0026 PAGE 2 Signed Report- CT ABD PELVIS [id number] 14:41:00 Patient Name: MANDY CAZARES Unit No: [id number] EXAMS: CPT CODE: [id number] CT ABD PELVIS W/CONT 24213 Site ID: [id number] CLINICAL HISTORY: Abdominal and [...] adrenal glands are unremarkable. Kidneys are mildly atr ophic, but enhance symmetrically. No nephrolithiasis or hydronephrosis [...] CC: Sheron Couch MD Dictated Date/Time: 04/06/2018 (2042) Technologist: Devin Solomon CTDI: 11.97 DLP: 668.50 Trnscrpt: 04/06/2018 (8937) [email or web address] [facility] NAME: MANDY CAZARES [address] [place] [address] PHYS: [place] [address] : 1965 AGE: 52 SEX: M LOC: [place] PHONE #: [phone] EXAM DATE: 04/06/2018 STATUS: REG ER FAX #: [phone] RAD #: D/C DT PAGE 1 Signed Report Patient Name: AMNDY CAZARES Unit No: [id number] EXAMS: CPT CODE: [id number] CT ABD PELVIS W/CONT 75882 <Continued> Orig Print D/T: S: 04/06/2018 (4527) [facility] NAME: MANDY CAZARES [address] [place] [address] PHYS: Sheron Mills MD [place] [address] : 1965 AGE: 52 SEX: M LOC: [place] PHONE #: [phone] EXAM DATE: 04/06/2018 STATUS: MACIE MARTINEZ FAX #: [phone] RAD #: D/C DT PAGE 2 Signed ReportURINALYSIS [id number] 14:23:00 Test Item Value Reference Range Interpretation Comments UA COLOR (test code = COLORLESS DESCRIPT YELLOW COLU) UA APPEARANCE (test code CLEAR DESCRIPT CLEAR = APPU) UA GLUCOSE DIPSTICK (test NEGATIVE (0) mg/dL (NEG) 0 code = DGLUU) UA BILIRUBIN DIPSTICK NEGATIVE (0) mg/dL (NEG) 0 (test code = BILU) UA KETONE DIPSTICK (test 0 (NEG) mg/dL (NEG) 0 code = KETU) UA SPECIFIC GRAVITY (test 1.004 SG 1.001-1.035 code = SGU) UA BLOOD DIPSTICK (test NEGATIVE (0) mg/DL (NEG) 0 code = GIANCARLO) UA PH DIPSTICK (test code 7.0 pH UNITS 4.6-8.0 = SANDRA) UA PROTEIN DIPSTICK (test NEGATIVE (0) mg/dL <30 (1+) code = PROU) UA UROBILINIOGEN DIPSTICK NORMAL (0) mg/Dl <2.0 (1+) (test code = URO) UA NITRITE DIPSTICK (test NEGATIVE (0) SCREEN NEG code = DEVORA) UA LEUKOCYTE ESTERASE NEGATIVE (0) (NEG) 0 DIPSTICK (test code = Leuk/mcL LEUU) UA WBC (test code = WBCU) 0-3 #WBC/HPF 0-3 UA RBC (test code = RBCU) NONE #RBC/HPF 0-3 UA BACTERIA (test code = TRACE >0 /HPF NONE-FEW BACU) UA MUCUS (test code = RARE /LPF NONE MUCU) HEPATIC FUNCTION [id number] 14:06:00 Test Item Value Reference Range Interpretation Comments TOTAL PROTEIN (test code 6.7 G/DL 6.4-8.2 N = PROT) ALBUMIN (test code = ALB) 3.4 G/DL 3.4-5.0 N BILIRUBIN TOTAL (test 0.14 MG/DL 0.00-1.00 N code = BILT) BILIRUBIN DIRECT (test < 0.10 MG/DL 0.00-0.30 N code = BILD) BILIRUBIN INDIRECT (test 0.14 MG/DL 0.2-1.3 L code = BILIND) SGOT/AST (test code = 19 Unit/L 15-37 N AST) SGPT/ALT (test code = 18 Unit/L 12-78 N ALT) ALKALINE PHOSPHATASE 127 Unit/L 45-117 H TOTAL (test code = ALKP) INDEX HEMOLYSIS (test 3 SMALL 25-50 MG 1 NORMAL code = HEMINDEX) Index/DL INDEX ICTERIC (test code 1 NORMAL <2 MG 1 NORMAL = ICTINDEX) Index/DL INDEX LIPEMIA (test code 1 NORMAL <50 MG 1 NORMAL = LIPINDEX) Index/DL [id number] 14:06:00 Test Item Value Reference Range Interpretation Comments LIPASE (test code = LIP) 271 Unit/L 114-286 N [id number] 14:06:00 Test Item Value Reference Range Interpretation Comments TROPONIN-I < 0.015 NG/ML 0.000-0.045 N An elevated tr oponin value (test code = alone is not ching fficient TROPI) todiagnose a my ocardial infarction. Rat her, the patient'sclinic al presentation (h istory, physical exam) and ECGshould be used in conj unction with troponin in the diagnostic evaluation of s uspected myocardial infa rction. Aserial samplin g protocol is recommended to facilitate theidentificati on of temporal change s in troponin levelscharacter istic of [place]. CBC W/O [id number] 13:47:00 Test Item Value Reference Range Interpretation Comments WHITE BLOOD CELL (test code = WBC) 8.7 K/mm3 4.1-12.1 N RED BLOOD CELL (test code = RBC) 3.88 M/mm3 3.8-5.5 N HEMOGLOBIN (test code = HGB) 11.3 G/DL 10.6-15.8 N HEMATOCRIT (test code = HCT) 35.9 % 36.0-47.4 L MEAN CELL VOLUME (test code = MCV) 92.5 fL 80.1-101.1 N MEAN CELL HGB (test code = MCH) 29.1 pg 25.3-35.3 N MEAN CELL HGB CONCETRATION (test 31.5 G/DL 32.7-35.1 L code = MCHC) RED CELL DISTRIBUTION WIDTH (test 15.3 % 12.2-16.4 N code = RDW) PLATELET COUNT (test code = PLT) 198 K/mm3 155-337 N MEAN PLATELET VOLUME (test code = 10.0 fL 7.6-10.4 N MPV) CHEMISTRY 7 [id number] 13:39:00 Test Item Value Reference Range Interpretation Comments IONIZED CALCIUM (test code = CAIABG) mmol/L 1.13-1.32 ISTAT-TCO2 VENOUS (test code = MMOL/L 21-32 N TCO2VP) ISTAT-SODIUM (test code = NAP) MMOL/L 135-148 ISTAT-POTASSIUM (test code = KP) MMOL/L 3.5-5.9 ISTAT-CHLORIDE (test code = CLP) MMOL/L 98-106 ISTAT-ANION GAP (test code = GAPP) MEQ/L 10-20 ISTAT-GLUCOSE (test code = GLUP) MG/DL 70-119 N ISTAT-BUN (test code = BUNP) MG/DL 8-28 N BEDSIDE CREATININE (test code = MG/DL 0.6-1.2 H CREATBED) GLOMERULAR FILTRATION RATE POC (test 36 56-130 L code = GFRBED) CHEMISTRY 7 [id number] 13:39:00 Test Item Value Reference Range Interpretation Comments IONIZED CALCIUM (test 1.24 mmol/L 1.13-1.32 N code = CAIABG) ISTAT-TCO2 VENOUS (test 25 MMOL/L 21-32 N code = TCO2VP) ISTAT-SAMPLE SOURCE VENOUS SPECIMEN Specimen (test code = SRCIST) Descript ISTAT-SODIUM (test code 138 MMOL/L 135-148 N = NAP) ISTAT-POTASSIUM (test 5.4 MMOL/L 3.5-5.9 N code = KP) ISTAT-CHLORIDE (test 107 MMOL/L 98-106 H code = CLP) ISTAT-ANION GAP (test 13.0 MEQ/L 10-20 N code = GAPP) ISTAT-GLUCOSE (test code 76 MG/DL 70-119 N = GLUP) ISTAT-BUN (test code = 26 MG/DL 8-28 N BUNP) BEDSIDE CREATININE (test 2.0 MG/DL 0.6-1.2 H code = CREATBED) GLOMERULAR FILTRATION 36 56-130 L RATE POC (test code = GFRBED) - XR CHEST 1 [id number] 13:27:00 FAX: Sheron Garcia MD [phone] [place]: St: PRE Patient Name: MANDY CAZARES Unit No: [id number] EXAMS: CPT CODE: [id number] XR CHEST 1 V 15782 - XR CHEST 1 V INDICATION:Abdominal pain, vomiting, headache LOCATION: T18 Partial inspiration. The lungs are clear. The cardiomediastinal silhouette is within normal limits. Old left rib fractures noted. IMPRESSION: Partial inspiration. No active disease. at 1327 Reported and signed by: Bhavin Valencia D.O. CC: Sheron Couch MD Dictated Date/Time: 04/06/2018 (5948)Technologist: Jcarlos Merlos Transcribed Date/Time: 04/06/2018 (6196) By: Lyle Orig Print D/T: S: 04/06/2018 (4903) [facility]ON[facility] NAME: MANDY CAZARES [address] [place] [address] Blvd PHYS: TARIK. - Sheron Couch MD [place], [place] [address] : 1965 AGE: 52 SEX: M LOC: [facility] PHONE #: [phone] EXAM DATE: 04/06/2018 STATUS: PRE ER FAX #: [phone] RAD N O: DC Dt: PAGE 1 Signed Report [id number] 09:54:008.5MH JhivxgmqdLHLFARVAOROB5673-41-48 09:54:0042 KswjyzhtqMQFJLFKYPBBJ6981-60-67 09:54:007.2MH WxhbatscpGGHSMRRBUBIB4578-13-52 09:54:001.85MH ZkgjecyxsBUNLQLQPBOZJ6326-88-54 09:54:29046UY [facility] RMWSXBEYYPOX8918-36-85 09:54:003.5MH GsypsfadqMHVAQADQRXJI3848-04-89 09:54:93863 UgensyaktNMOMPZOWXBYE0055-51-79 09:54:0032 QakoprqvpBZGMSUFNUCBZ2287-55-03 09:54:0090 AapnfxnwjQYPWHPXZBGRG1368-24-79 09:54:0035 [facility]HEMATOLOGY 2018-01-04 09:54:0028.7 FvigmhynoBFULQYLIFE7833-17-11 09:54:009.6MH [facility] URINE AND [id number] 02:28:006MH [facility]URINE AND [id number] 02:28:001MH [facility]CHEM ERACG6161-78-88 07:54:43697EH [facility]CHEM PANEL 2018-01-03 07:54:007.4 [facility]CHE[facility] [id number] 07:54:0027MH [facility] CHEM [id number] 07:54:0029 [facility]CHEM TALTB6890-93-41 07:54:0010.4 [facility] WUTIO3793-30-04 07:54:32259HW [facility]CHEM KSUTU3642-96-25 07:54:13795QO [facility] JSGEA6963-72-50 07:54:003.4 [facility] PANEL 2018-01-03 07:54:0059 [facility] GQJMD4790-05-32 07:54:002.64[facility] FQNZPESUJM1943-83-38 07:54:009.1MH MsfcktamuNXJOLCADQR7335-46-53 07:54:0027.0MH [facility]URINE AND [id number] 22:05:00Yellow *NA*(01/02/18 5:05 PM) [facility] AND [id number] 22:05:00Clear (01/02/18 5:05 PM) [facility] URINE AND [id number] 22:05:00 Test Item Value Reference Range Interpretation Comments UA pH (test code = UA pH) 6.0 1 5.0-8.0 [facility] AND [id number] 22:05:00 Test Item Value Reference Range Interpretation Comments UA Spec Grav (test code = UA Spec 1.006 1 Grav) [facility] [id number] 22:05:00Large *ABN*(01/02/18 5:05 PM) [facility] [id number] 22:05:00Negative (01/02/18 5:05 PM) [facility] [id number] 22:05:00Negative *NA*(01/02/18 5:05 PM) [facility] [id number] 22:05:0029 [facility] STOOL 2018-01-02 22:05:00<1MH [facility] AND [id number] 22:05:00Negative (01/02/18 5:05 PM) [facility] GKGH7540-06-13 22:05:0018.3MH [facility] [id number] 22:05:00 Test Item Value Reference Range Interpretation Comments U Prot/Creat (test code = U 0.35 1 Prot/Creat) [facility] VTVC2703-06-28 22:05:0052.10 [facility] [id number] 22:05:0052.10 [facility] DHAB3300-89-37 22:05:0043 NortheastANEMIA STUDY 2018-01-02 09:50:76581CC [facility]ANEMIA CAWHR7771-02-57 09:50:0038 [facility] ANEMIA EETOG9227-55-14 09:50:34171YQ [facility]AN[facility]IA QKRQV1118-45-52 09:50:0092 [facility] ZNVJU8444-71-55 09:50:38206DT [facility]ANEM[facility] SLQAW6058-97-74 09:50:0048 [facility]ANEMIA BZJBI3857-91-74 09:50:002.9 NortheastCARDIAC RDYIOVN4410-25-19 09:50:0086 [facility]CHEM YMKNL5722-65-37 09:50:0025 [facility]CHEM EWHOV4412-94-01 09:50:0079[facility] OMVDG0203-18-10 09:50:0091 [facility]CHEM PXHRH1515-54-99 09:50:003.6MH [facility]CHEM PANEL 2018-01-02 09:50:002.86MH [facility]CHEM KZLOV5395-23-38 09:50:06478IL [facility] CHEM QSIFZ9515-41-39 09:50:007.7 [facility]CHE[facility] IOQSM1790-03-10 09:50:0011.6M [facility] RZWIT5737-61-85 09:50:39029JP [facility]CHEM BXAGZ1885-24-31 09:50:0023 TbwiqizwwSLSWSEZOMR6272-64-26 09:50:46484FN [facility]HEMATOLOGY 2018-01-02 09:50:008.5 TzqbkbymzZGRJZWYJEW4574-45-00 09:50:0015.7[facility] IJEDIIIXPK2772-25-68 09:50:0034.3M XvflbwkuxYBFVEKNVSS5553-54-40 09:50:005.8 IjknxgritTXXXDKAYKV1663-45-38 09:50:0027.1M UxrziljtkKSVQFJGWKA1798-40-09 09:50:0087.5 FjshnqsaqNRFOQZUEXI0387-24-50 09:50:00 Test Item Value Reference Range Interpretation Comments MCH (test code = MCH) 30.0 pg 27.0-31.0 [facility] HospitalVrnisxbnmDCHHBXXHGU0812-09-87 09:50:009.3M[facility] CityIotirkhauJSHHEJDXZJ2159-07-63 09:50:003.10[facility] HospitalVzranilvyOIFNCUHWUU3157-78-12 09:50:000.47MH [facility]DRUG SCREEN 2018-01-01 13:10:00Positive *ABN*(01/01/18 8:10 AM) [facility]DR[facility] SCREEN 2018-01-01 13:10:00Negative *NA*(01/01/18 8:10 AM)MH [facility]DRUG SCREEN 2018-01-01 13:10:00Negative *NA*(01/01/18 8:10 AM)MH [facility]DRUG SCREEN 2018-01-01 13:10:00Negative *NA*(01/01/18 8:10 AM)MH [facility]DRUG SCREEN 2018-01-01 13:10:00Negative *NA*(01/01/18 8:10 AM)MH [facility]DRUG SCREEN 2018-01-01 13:10:00Negative *NA*(01/01/18 8:10 AM) [facility]DRUG SCREEN 2018-01-01 13:10:00Negative *NA*(01/01/18 8:10 AM) [facility]DRUG SCREEN 2018-01-01 13:10:00See Note (01/01/18 8:10 AM) [facility]SPECIAL CHEMISTRY 2018-01-01 09:35:005.4 [facility]CHEM PSZZB8937-48-03 09:32:005.3M [facility] CHEM NWOPZ9471-84-80 09:32:006.2M [facility]CHEM WOUYM6349-98-57 09:32:00 Test Item Value Reference Range Interpretation Comments B/C Ratio (test code = B/C Ratio) 20 1 6-25 [facility]CHEM VGTZC8871-99-19 09:32:000.2M [facility]CHEM NOIFB4090-39-17 09:32:0094 [facility]CHEM NDQYP5418-28-95 09:32:0010 [facility]CHEM PANEL 2018-01-01 09:32:0017 [facility]CHEM PQBUU6551-72-93 09:32:00 Test Item Value Reference Range Interpretation Comments A/G Ratio (test code = A/G Ratio) 1.0 1 0.7-1.6 [facility]CHEM OTQFA2676-73-34 09:32:003.1M [facility]CHEM IHYWD7105-65-70 09:32:003.1M [facility]CHEM QXFBV7881-75-15 04:17:000.4 NortheastCARDIAC PYDVTHW5666-01-11 01:20:88516WC [facility]URINE AND SXGRF6003-27-16 00:53:00Small *ABN*(12/31/17 7:53 PM) [facility] WVBBW3002-98-47 00:53:00Negative *NA*(12/31/17 7:53 PM) [facility] IOFJQ9068-21-03 00:53:00Negative (12/31/17 7:53 PM) [facility] NPSAJ4700-30-09 00:53:00Negative (12/31/17 7:53 PM) [facility] ESNDB0373-62-06 00:53:002MH [facility] AQMVS1075-23-42 00:53:003MH [facility] DUHVV6467-55-00 00:53:00 Test Item Value Reference Range Interpretation Comments UA pH (test code = UA pH) 5.0 1 5.0-8.0 [facility] SVEXX4157-28-94 00:53:00Yellow *NA*(12/31/17 7:53 PM) [facility] ZXXOU1083-43-04 00:53:00 Test Item Value Reference Range Interpretation Comments UA Spec Grav (test code = UA Spec 1.010 1 Grav) [facility] UBRRB7970-17-30 00:53:00Clear (12/31/17 7:53 PM) [facility] IFFYCVZ9624-86-34 00:48:00<0.02 [facility] PANEL 2018-01-01 00:48:26755ZI [facility] WYIWI6058-32-95 00:48:000.3MH [facility] PXVOV5167-57-21 00:48:44535ZP [facility] WDBHD7005-58-68 00:48:003.9 [facility] CTBCO8829-02-12 00:48:007.9 [facility] CTODN6733-29-12 00:48:0015 [facility] SNHJV7966-93-68 00:48:0021 [facility] PANEL 2018-01-01 00:48:00 Test Item Value Reference Range Interpretation Comments A/G Ratio (test code = A/G Ratio) 1.0 1 0.7-1.6 [facility] RSZXZ6517-64-64 00:48:004.0 [facility] DGNZV7407-05-50 00:48:00 Test Item Value Reference Range Interpretation Comments B/C Ratio (test code = B/C Ratio) 16 1 6-25 ZatqxfzkmTZESKAETPW8828-08-42 00:48:0088.4 PlludhtfcJLZDWOKUIA3170-00-24 00:48:00 Test Item Value Reference Range Interpretation Comments MCH (test code = MCH) 29.1 pg 27.0-31.0 OtsmuldmuEPHUUYGSGI1192-90-69 00:48:0032.9 BxttwbjydFCNRONXTPL0459-56-25 00:48:0015.7[facility]JR[facility]IFXNVFA2566-54-61 00:48:007.2M [facility] 2018-01-01 00:48:004.16 NopazvfklRDJZTILJBH8502-91-52 00:48[facility]008.6[facility] HYQHVTMQKS6395-70-86 00:48:25300UV PshlbvsytMRKKQJUMJR5190-38-62 00:48:005.8 IksdvjddxGJRLRTBKKK6334-84-39 00:48:003.0 QovdddwojMIZBPACWVO3469-57-30 00:48:0028.2M PcthgihwbFAUMHSCPIW4477-15-86 00:48:0062.4 [facility] 2018-01-01 00:48:000.4 KefaesldeZUGJPJIXSG9215-95-23 00:48:000.2[facility] SNBQFMGLYC1759-44-94 00:48:000.6M UshcbnbecTLPCBPQMNU3902-69-12 00:48:004.5 SzfmrifocYILATXUBNW5938-12-84 00:48:002.0[facility] HospitalSnclhpjzkHGMTKGDZMQHM0296-48-56 09:54:0010.7[facility] HospitalFbjcjolqmQJPCQUEHOUUM3436-97-41 09:54:0041[facility] PZFYKDUVVFLZ0554-28-27 09:54:0023[facility] HospitalDmgplhjhuJISMPJUXUJSB5187-34-36 09:54:008.2 EzhlrxdfgKYOXSNFVYKXR3706-42-20 09:54:62789ZC[facility] HospitalNqzmblusaOAJCJCXOZVDK7753-94-28 09:54:004.7[facility] HospitalBsfdagkamKOIUWJXIUCRT4970-94-24 09:54:0043[facility] HospitalELECTROLYTES 2017-12-13 09:54:001.88 SqpshlywpDGZCKBLRLVBW1279-88-01 09:54:82850EA SzibwwiyoMKRYECQOBLEZ3251-22-01 09:54:0084 XgkwlzoxvEJPCBMZSGL9664-45-27 09:54:0014.9 HnpiphxmhHWGAMKPKYR8451-33-35 09:54:10515GE [facility] 2017-12-13 09:54:007.2M UjfwxbndzXXJJZARRDW0003-06-19 09:54:0033.7[facility] UUAQLKQOQO0813-95-90 09:54:00 Test Item Value Reference Range Interpretation Comments MCH (test code = MCH) 30.0 pg 27.0-31.0 RlzozgnsiXYFURZFIZI9488-33-24 09:54:0089.2[facility] CityHmwfqoaslYTTSKEUMLM0536-86-59 09:54:0032.9[facility] HospitalPnxgdqbyoLHYCUKGBVW1126-58-85 09:54:003.69[facility]HE[facility] 2017-12-13 09:54:007.4 PtbucpnfwZNTLGMJAEJ5942-15-87 09:54:0011.1[facility] KIEOOZQGVE8414-10-56 09:54:000.5[facility] HospitalLkksyksdsJSEZUSYEDA2123-55-84 09:54:003.1M AogdrkrwvIBYNUFKAST8906-39-35 09:54:003.4 FzjhperpmRZXTVSLDRN0701-39-66 09:54:000.3[facility] CityVdmmhrtsgBFHGTPZQAK5823-77-53 09:54:0042.4[facility]HE[facility] 2017-12-13 09:54:0046.4 KjalgdvgoRLJITVCVDM2422-48-01 09:54:006.5[facility] OGXTEEBZQQ0962-74-52 09:54:000.5[facility] HospitalHqsvveuywKENPRJNVNT1864-33-73 09:54:004.2[facility] CityCHEM WLFHQ2317-05-12 01:22:000.5 [facility] PJFHW5824-08-31 22:31:00Negative (12/12/17 5:31 PM) [facility] KGRRT5485-40-01 22:31:00 Negative (12/12/17 5:31 PM)[facility] NEBOW0026-32-81 22:31:00Negative (12/12/17 5:31 PM)[facility] CQTWS6012-99-36 22:31:00Negative *NA*(12/12/17 5:31 PM)[facility] AND GTQJR9116-68-70 22:31:00 Test Item Value Reference Range Interpretation Comments UA pH (test code = UA pH) 6.0 1 5.0-8.0 [facility] AND SJCBK9033-78-94 22:31:00 Test Item Value Reference Range Interpretation Comments UA Spec Grav (test code = UA Spec 1.006 1 Grav) [facility] AND WDUYW8936-42-64 22:31:00Clear (12/12/17 5:31 PM) [facility]CHEM IVSOZ6796-44-71 21:59:99211KTCommunity [facility] HospitalCHEM JWGTN1248-36-78 21:59:61652XY [facility] PGOVD7342-59-95 21:59:0048 [facility] PANEL 2017-12-12 21:59:000.2M [facility] ICOTH6331-81-74 21:59:24720RW [facility] CHE[facility] DGUNB7888-08-27 21:59:008.4 [facility] NQKBW2307-51-65 21:59:007.0 [facility] NSHIB2135-23-85 21:59:003.3M [facility] JXHMK6059-47-08 21:59:0014MH [facility] OXXOD7627-41-92 21:59:0017 [facility]CHEM PANEL 2017-12-12 21:59:54773LI [facility] KAHLO7263-89-79 21:59:61349IX [facility] CHE[facility] CUTMY9564-01-52 21:59:004.7[facility] HospitalCHE[facility] LZVCK6084-33-87 21:59:0026[facility] HospitalCHEM ACGUN7711-19-16 21:59:002.02[facility] HospitalCHE[facility] MJTDX8123-26-00 21:59:0037[facility] HospitalCHE[facility] TDZYG7309-31-90 21:59:0010.7[facility] HospitalCHEM PANEL 2017-12-12 21:59:003.7[facility] HospitalCHE[facility] FBKSZ9861-41-93 21:59:00 Test Item Value Reference Range Interpretation Comments B/C Ratio (test code = B/C Ratio) 24 1 6-25 [facility] LVGVQ9394-66-82 21:59:00 Test Item Value Reference Range Interpretation Comments A/G Ratio (test code = A/G Ratio) 0.9 1 0.7-1.6 [facility] HospitalKsceobeldRNPFEFLWTQ3123-28-05 21:59:[address] [place], [place] [address]EcfceexmnSNRIWNYFMI9206-58-89 21:59:005.2M[facility] CityVfpctgiwwEVEQRCELTQ3692-84-87 21:59:[address] [place], [place] [address]HEMATOLOGY 2017-12-12 21:59:004.5[facility] HospitalZppccgfjnCSPOUODFXY7580-91-64 21:59:000.4[facility] CFLJTSYIBG5829-46-52 21:59:002.8[facility] HospitalUdmnewvegVFRAETJUYO2959-43-46 21:59:000.2MFranc[facility] CityFqnnlijtkQIEAUNDUGD5406-18-06 21:59:003.0[facility] HospitalCtutbwtruREZZMWJMJC8473-73-16 21:59:000.4[facility] HospitalOyespzsobTLZMJBYKPF5076-12-15 21:59:49011ZRHudson Valley HospitalATOLOGY 2017-12-12 21:59:007.3MH[facility] HospitalEotpzjmcgJIFJTXNYIM8579-54-02 21:59:003.65[facility]2018-09-30 21:59:007.9[facility] HospitalZtilonzxiHWBTRWKSHG4854-85-70 21:59:0011.1MH[facility] HospitalNfqaojvevJCWWTQHUCZ8311-86-22 21:59:0034.2MH[facility] HospitalDtxzdapjpMRXUKOMFRW3781-84-24 21:59:00 Test Item Value Reference Range Interpretation Comments MCH (test code = MCH) 30.5 pg 27.0-31.0 [facility] HospitalFjenusaqeNIBTCSBEKV5650-30-91 21:59:0032.5[facility] HospitalKeaajtqfbMVQEGBAJSZ3284-21-79 21:59:0089.1MA[facility] HospitalYsgxkuscgBDKLNGKFNA9556-48-44 21:59:0014.8[facility] 2017-12-12 21:59:00 Test Item Value Reference Range Interpretation Comments PT (test code = PT) 12.0 s 12.0-14.7 [facility] CenterStegeaespEHQXCBUYCV5471-32-94 21:59:00 Test Item Value Reference Range Interpretation Comments INR (test code = INR) 0.89 1 0.85-1.17 [facility] CenterUzbbjvgxsSXUCBGQWNR7622-28-25 21:59:00 Test Item Value Reference Range Interpretation Comments PTT (test code = PTT) 28.5 s 22.9-35.8 [facility]2018-09-19 09:51:001.8[facility]2018-09-19 09:51:0040[facility]2018-09-19 09:51:003.4[facility] 2017-12-01 09:51:00 Test Item Value Reference Range Interpretation Comments A/G Ratio (test code = A/G Ratio) 1.0 1 0.7-1.6 [facility]2018-09-19 09:51:0013.4[facility]2018-09-19 09:51:00 Test Item Value Reference Range Interpretation Comments B/C Ratio (test code = B/C Ratio) 11 1 6-25 [facility]2018-09-19 09:51:03769EN[facility]2018-[facility]-19 09:51:000.2MH [facility]CHEM QVDGX5558-71-80 09:51:0033MH NortheastCHEM PANEL 2017-12-01 09:51:0034MH [facility]CHEM OIFIJ9783-28-98 09:51:003.5 [facility] HDPSO1639-36-89 09:51:0020 [facility] RWMZN8501-81-02 09:51:008.2M [facility]CHEM SHNKX8828-78-48 09:51:006.9 [facility] YLMNQ8505-56-10 09:51:004.4 [facility] CJQVE3589-56-74 09:51:74689CD [facility]CHEM PANEL 2017-12-01 09:51:60924FY [facility]CHEM VLZVM9837-61-91 09:51:001.89 [facility] ILBQA4527-37-60 09:51:0098 [facility]M HDHGS0935-80-42 09:51:0020 XuxoloapxBKYWMJCVCG1204-38-15 09:51:0092.1M KcthsgroeGWVTHUHMAP7145-26-77 09:51:0033.5[facility] HospitalCggcpeeubJLVIBWIMAA5081-38-08 09:51:00 Test Item Value Reference Range Interpretation Comments MCH (test code = MCH) 30.4 pg 27.0-31.0 [facility] HospitalZmjvurcdbYONEWSXYUF7795-84-05 09:51:0033.0[facility] HospitalCsqjrlwmdERXWATXGEZ2948-65-23 09:51:0011.1M HmgpvgeguRNJQPRZZQB3250-42-39 09:51:008.0[facility] HospitalHEMATOLOGY 2017-12-01 09:51:70385WK GkithohifGHUZCPUSFV5167-11-55 09:51:0015.0[facility] AWATGDTIVQ1398-97-24 09:51:0011.[facility] ZofwaqcpcSVUIQGPRZY5309-29-35 09:51:003.64 [facility]CHEM WEUHI3297-54-65 09:05:003.9 [facility] UQRDG9646-80-90 09:05:0040 [facility] AARDN8517-38-78 09:05:000.2M NortheastCHEM PANEL 2017-11-30 09:05:0098 [facility]CHE[facility] OSKTI7489-22-07 09:05:93721JF [facility] CHE[facility] ZWGHO9882-26-98 09:05:20011VB [facility] JDXSF1491-18-92 09:05:004.2MFranc[facility] CityCHEM YHIGT0017-09-03 09:05:001.92 [facility] EIZLG9865-10-95 09:05:0023 [facility] GHRFY0503-12-14 09:05:003.3MH NortheastCHEM PANEL 2017-11-30 09:05:006.4MH [facility]CHEM OVRHE2960-99-12 09:05:008.1M [facility] RCUCR9660-76-28 09:05:0017 [facility]CHE[facility] SFYAN0030-09-10 09:05:0019 [facility] URCGE6716-22-10 09:05:0025 [facility] LEPLN1828-13-43 09:05:0073 [facility]CHEM BOHEM7194-15-69 09:05:00 Test Item Value Reference Range Interpretation Comments A/G Ratio (test code = A/G Ratio) 1.1 1 0.7-1.6 [facility] EKQWH9624-91-40 09:05:00 Test Item Value Reference Range Interpretation Comments B/C Ratio (test code = B/C Ratio) 13 1 6-25 [facility]CHEM IFOCR9756-29-70 09:05:0010.2MFranc[facility] CityCHEM SVZMW8219-46-06 09:05:003.1MFranc[facility] CityCHEM RJOTU3864-04-34 09:05:001.8 NortheastHEMATOLOGY 2017-11-30 09:05:0031.8 XveshclajNHCNKVSOKP9102-31-63 09:05:0090.5[facility] CCZKIQEVRC8099-99-32 09:05:007.8 EpedttcsoGSOXTJNFCM0449-87-58 09:05:003.51 PthrajvruJMHRARRSCN3195-73-37 09:05:0010.9 GohqstcjoZZXLXPEVTM5823-98-04 09:05:00 Test Item Value Reference Range Interpretation Comments MCH (test code = MCH) 30.9 pg 27.0-31.0 ZwaxcoowdGTYTEQFTNQ6606-35-76 09:05:0034.2M FqyirmvtsGDZXXUMSEH8125-94-41 09:05:007.7 QzyumilhlDRIXGTGYEK2831-41-39 09:05:0014.9 NortheastHEMATOLOGY 2017-11-30 09:05:52775FG TlwzbmedwSXGXEWSSRW3946-81-21 09:05:003.7[facility] YHHODVCMIK8199-00-04 09:05:003.4[facility] HospitalHbuclvhgsFZDVHEXSXZ9805-46-38 09:05:000.2M[facility] CityOaxrekpvkSXXCTBFHAQ3170-91-47 09:05:000.5[facility] HospitalDhufdawcnBASLHFCTSG4515-04-32 09:05:000.3M[facility] CityCwdvkcyurBNCBFSTSKN7746-67-55 09:05:0043.4[facility] HospitalATOLOGY 2017-11-30 09:05:0046.7[facility] HospitalUipnirjczOKYKSZWGRH0845-26-09 09:05:006.0[facility] BNYBQLAPSJ6307-21-29 09:05:003.7[facility] HospitalDRUG RPDAQW5674-22-21 17:39:00 Negative *NA*(11/29/17 12:39 PM) [facility] PTFYBJ0003-52-58 17:39:00 Negative *NA*(11/29/17 12:39 PM) [facility] LVIMIE2317-62-28 17:39:00 Negative *NA*(11/29/17 12:39 PM) [facility] LBDIWO7601-68-71 17:39:00 Negative *NA*(11/29/17 12:39 PM) [facility] IRRFEV3131-01-48 17:39:00 Negative *NA*(11/29/17 12:39 PM) [facility] FFAENM7102-13-08 17:39:00See Note (11/29/17 12:39 PM) [facility] QOVQIR1712-91-39 17:39:00Negative *NA*(11/29/17 12:39 PM) [facility] TKFHCT6718-63-55 17:39:00Negative *NA*(11/29/17 12:39 PM) [facility] AND GLTYV4982-62-57 17:39:00Negative (11/29/17 12:39 PM) [facility] AXUNL4767-29-79 17:39:00Negative (11/29/17 12:39 PM) [facility] AND UOPFV7446-52-26 17:39:00Negative (11/29/17 12:39 PM) [facility] AND BQTEU0837-07-73 17:39:00Negative *NA*(11/29/17 12:39 PM)MH [facility] AND FROFI5171-16-96 17:39:00 Test Item Value Reference Range Interpretation Comments UA pH (test code = UA pH) 6.0 1 5.0-8.0 MH [facility] AND CSLPB8252-28-46 17:39:001 [facility] STOOL 2017-11-29 17:39:00<1MH [facility] AND BQBER8154-78-31 17:39:00 Test Item Value Reference Range Interpretation Comments UA Spec Grav (test code = UA Spec 1.002 1 Grav) MH [facility] AND HPRGO7765-47-12 17:39:00Clear (11/29/17 12:39 PM) [facility] AND VCIYL3715-46-26 17:39:00Colorless *NA*(11/29/17 12:39 PM) NortheastCARDIAC OYUZXTX3632-70-62 16:38:00<0.02[facility] HospitalCARDIAC ENZYMES 2017-11-29 16:38:39177SR NortheastCHEM JYSZQ8791-69-73 16:38:00 Test Item Value Reference Range Interpretation Comments B/C Ratio (test code = B/C Ratio) 13 1 6-25 [facility]CHEM HCQTC0191-59-00 16:38:003.2M [facility]CHEM FUHOM5398-82-39 16:38:00 Test Item Value Reference Range Interpretation Comments A/G Ratio (test code = A/G Ratio) 1.2 1 0.7-1.6 [facility] HVGJM8564-20-95 16:38:0011.1M [facility]CHE[facility] XKIXY6758-98-35 16:38:0031 [facility] JGVEH7923-14-13 16:38:007.2M [facility]CHEM PANEL 2017-11-29 16:38:008.3M [facility]CHE[facility] VLYQC6866-75-16 16:38:92869NK [facility] VPIWT2216-23-85 16:38:0023 [facility] ENJED8396-15-69 16:38:002.34 [facility] IUDZO2075-34-65 16:38:78223VL [facility] ANTNJ1510-72-63 16:38:0031 [facility] HUTNP5126-28-76 16:38:0021 [facility]CHEM PANEL 2017-11-29 16:38:000.3MH [facility]CHE[facility] LGKRB9541-09-45 16:38:43324WB [facility] CHE[facility] PGSTQ8962-01-34 16:38:004.0 [facility] KLMJN0317-93-83 16:38:0021 [facility] WRXKE6925-99-54 16:38:004.1M [facility] NBTKT6121-10-44 16:38:0089 LrbprtezkUSOPALEXEJ5585-26-69 16:38:00 Test Item Value Reference Range Interpretation Comments MCH (test code = MCH) 30.3 pg 27.0-31.0 LoikrhzyyORTMTYPFMJ0096-75-79 16:38:0089.7 IdgfpuvadIISNOZBEEW4223-82-59 16:38:67599UX LcjpmodtiFIQIKZZROU8425-23-00 16:38:0014.8 NortheastHEMATOLOGY 2017-11-29 16:38:0033.[address]DFCQUOONTB8030-08-62 16:38:[address] [facility] PHLMAXVQZV0542-43-42 16:38:0010.2M NnrlvujyxUPYLNATNPO8465-80-24 16:38:0011.4 YjupirqhuDUPMBOYRPO6930-88-76 16:38:003.77 GgasnzkyoCNSJJJCHAX5748-64-54 16:38:0033.8 DbtilxywyUAMGUWQOCF8707-64-02 16:38:006.1M NortheastHEMATOLOGY 2017-11-29 16:38:000.3M FwdrhfucjBEPDXIASYD8079-82-17 16:38:000.8[facility] KPZKCUJCQD1629-06-77 16:38:003.0 LiwtrsniaVMTCSNYIFE3377-07-91 16:38:008.0 YkrhumfsfOGLBCRUMQV0674-87-41 16:38:000.4 OffzmsovnOLGGRCGMJH1720-54-76 16:38:002.5 DlrljxgouNWIDKMOSKB0220-96-50 16:38:0059.7 [facility]HEMATOLOGY 2017-11-29 16:38:0029.4 [facility]CHEM GBGDH7292-54-48 16:07:78304GS [facility] TYRWM0878-75-24 23:58:007.7 [facility] BVFDZ0302-15-79 23:58:004.4 [facility] TZWSR3624-14-17 23:58:0023 [facility] MYJOS0222-87-93 23:58:0011.4MH [facility]CHEM GVYVA2432-09-62 23:58:25886GL [facility]CHEM PANEL 2017-11-28 23:58:33561FF [facility]CHEM WWWYG9650-06-45 23:58:70774VE [facility] CHEM VPBWC6711-62-64 23:58:0032 [facility]CHE[facility] QZJCJ9312-28-16 23:58:002.36 [facility] TASPU2613-10-04 23:58:0031 [facility]CHE[facility] KSCLH2379-90-26 09:28:004.1M [facility]CHEM EBORA7558-10-63 09:28:001.9 [facility]CHEM PANEL 2017-11-28 09:28:0037 [facility] OPMFX8072-19-57 09:28:16720TL [facility] IOKSR1947-16-54 09:28:26755BT [facility]CHEM DEAGC7304-28-38 09:28:000.2M [facility]CHEM PYLGS5707-68-50 09:28:0017 [facility]CHEM REFZX3138-13-89 09:28:003.6M [facility]CHEM FAUPN5192-17-17 09:28:0018 [facility]CHEM PANEL 2017-11-28 09:28:006.7 [facility]CHEM VADPI4593-50-69 09:28:0019 [facility] CHE[facility] TQLQO2740-92-94 09:28:008.2M [facility]CHEM HGAMT7590-49-56 09:28:69860YO [facility]CHEM UQXBD8517-69-25 09:28:005.2M [facility]CHEM WIEGY5364-96-10 09:28:56435TZ [facility]CHEM ZEWWL4477-11-25 09:28:0035 [facility]CHEM PANEL 2017-11-28 09:28:002.03 [facility]CHEM LTKCB8263-79-82 09:28:0013.2M [facility] CHE[facility] IBHPI0774-87-30 09:28:00 Test Item Value Reference Range Interpretation Comments A/G Ratio (test code = A/G Ratio) 1.2 1 0.7-1.6 [facility]CHEM WSHQG3794-01-69 09:28:003.1M [facility]CHEM QLJCO8168-66-47 09:28:00 Test Item Value Reference Range Interpretation Comments B/C Ratio (test code = B/C Ratio) 17 1 6-25 [facility] HospitalXdagjquzjODSLVBZQNT0787-55-61 09:28:000.3M OzikqnjtmYZWXFOIBUC4862-11-86 09:28:001.3MH ObsqeayfwAIRTLFSOGY2547-36-19 09:28:0080.6MH NortheastHEMATOLOGY 2017-11-28 09:28:006.8 YnoehrfzgPMMNEQPCZG6620-33-64 09:28:0015.4[facility] ZCEZZUZLUL7937-92-28 09:28:003.7 FwoexcvqoOHRGGDMXHT3190-11-41 09:28:000.1MH EdaumhisfNUFHUFGJLI3571-92-20 09:28:000.2M SiwycxkeqCZTLRHEASK2882-94-63 09:28:0034.7 WfyndkrpeTTFGQBHNHJ6767-94-90 09:28:0033.4 NortheastHEMATOLOGY 2017-11-28 09:28:003.83 WfakceulzQAOZMNXVLG9171-57-57 09:28:0011.6M[facility] BYRNXVOBXQ6708-56-30 09:28:71547MN QofckbqkqPCMTFUHKPZ7758-91-18 09:28:007.8 HahsfwozmIFSWQFDGJH2608-24-44 09:28:0014.8 HbpbqazhsJVUQHANWCB9628-28-40 09:28:0090.7[facility] HospitalAucpxkgvkMEQFYZPVXY7964-07-37 09:28:00 Test Item Value Reference Range Interpretation Comments MCH (test code = MCH) 30.3 pg 27.0-31.0 XrcukjhypXIZNBDXLXO3724-03-11 09:28:008.4 [facility] STOOL 2017-11-27 11:55:00Positive *ABN*(11/27/17 6:55 AM) [facility] STOOL 2017-11-27 07:33:00Negative (11/27/17 2:33 AM) [facility] STOOL 2017-11-27 07:33:00Negative (11/27/17 2:33 AM) [facility] STOOL 2017-11-27 07:33:001 [facility] AND LUSYX9656-68-78 07:33:00<1MH [facility] AND EHGOL9917-17-80 07:33:00Negative (11/27/17 2:33 AM) [facility] AND YWAAB9733-76-60 07:33:00 Test Item Value Reference Range Interpretation Comments UA pH (test code = UA pH) 6.0 1 5.0-8.0 [facility] UHXFY8083-35-55 07:33:00Negative *NA*(11/27/17 2:33 AM)[facility] JCZSD9383-42-03 07:33:00Clear (11/27/17 2:33 AM)[facility] URINE AND PMERN2144-61-35 07:33:00 Test Item Value Reference Range Interpretation Comments UA Spec Grav (test code = UA Spec 1.004 1 Grav) [facility]CHEM SHPCR6713-65-44 06:50:74304OSCommunity Memorial HospitalCHEM OHKKE6737-75-85 06:50:004.1M [facility]CHEM JKHQK2958-89-64 06:50:007.6M NortheastCHEM PANEL 2017-11-27 06:50:008.3M[facility] CityCHEM NVJHQ1626-93-15 06:50:0035[facility] CHEM LWEXX0097-48-64 06:50:99132STCommunity Memorial HospitalCHEM QFTND3059-25-47 06:50:0021 [facility]CHEM WNHCB0662-61-84 06:50:0018[facility] HospitalCHE[facility] BYYOO1832-25-61 06:50:000.2M[facility] CityCHEM OEMAY2828-84-09 06:50:0044 NortheastCHEM PANEL 2017-11-27 06:50:0090 [facility]CHEM VTDET4484-14-04 06:50:74412MW[facility] CHEM WNDFX6713-46-29 06:50:002.11[facility] HospitalCHE[facility] VRNAZ2546-62-31 06:50:40108GN [facility]CHEM DOXIM1029-14-26 06:50:004.9 [facility]CHEM LELJR4615-23-10 06:50:0020 [facility]CHEM KEZJW5954-61-71 06:50:0014.9 NortheastCHEM PANEL 2017-11-27 06:50:00 Test Item Value Reference Range Interpretation Comments B/C Ratio (test code = B/C Ratio) 21 1 6-25 [facility]CHEM ZOEJR2662-39-66 06:50:003.5 [facility]CHEM ZUQTX3520-14-99 06:50:00 Test Item Value Reference Range Interpretation Comments A/G Ratio (test code = A/G Ratio) 1.2 1 0.7-1.6 [facility] HospitalFqhaxtrydBPYHQDJOJH4014-48-12 06:50:00 Test Item Value Reference Range Interpretation Comments MCH (test code = MCH) 30.2 pg 27.0-31.0 [facility] HospitalYdcgryvbwPVLEZZCAWT6750-98-86 06:50:0033.7[facility] HospitalCvxyfbendXQLMXDPXJV2609-93-99 06:50:0036.8[facility] HospitalJzcdwwxcjJRUFUWILCO1117-67-36 06:50:0089.7[facility] HospitalHEMATOLOGY 2017-11-27 06:50:0014.9 BzfwxikexBTTFTUCVRQ3982-92-01 06:50:78194YDCommunity Memorial Hospital MDKBGUMQUW1436-64-40 06:50:007.6M[facility] CityKcbkiezccUZAEHMOKZP3703-53-63 06:50:0014.9[facility] HospitalCkylrfnxlUJDZKVCLJY2229-16-85 06:50:004.10[facility] HospitalMypwzxswoDCDZZSAJHM5132-67-09 06:50:0012.4[facility] HospitalLxxprnlnbWGYHRBGSVW4833-71-48 06:50:000.3M[facility] CityHEMATOLOGY 2017-11-27 06:50:009.2M[facility] CityLolobhecxCAVJFGKMLY8610-00-72 06:50:004.2M[facility] IADQWCTPVN3136-74-79 06:50:001.1M[facility] CityEzlqwmowjYNVTROWCTA4654-05-32 06:50:000.3M[facility] CityBgybqitsqCPVOPXYTCP0500-31-33 06:50:0061.6M[facility] CityHmdqtijlqAYPYFVSENH8447-29-20 06:50:[address] [place], [place] [address]XqyhkekulQHWYAZUJRV3598-25-18 06:50:007.4[facility] HospitalHEMATOLOG[facility] 2017-11-27 06:50:002.[address] [place], [place] [address]URINE AND QZIBC6753-44-54 04:57:110-2 (05/23/17 11:57 PM)[facility] FNUOD0519-73-80 04:57:11None Seen (05/23/17 11:57 PM)[facility] GNLLL9434-88-10 04:57:11None Seen (05/23/17 11:57 PM)[facility] YVWYV7051-49-33 04:57:11 Negative (05/23/17 11:57 PM)[facility] NSFRZ8509-80-88 04:57:11Negative (05/23/17 11:57 PM)[facility] STOOL 2017-05-24 04:57:11<=1.005 *NA*(05/23/17 11:57 PM)[facility] HONBT7600-16-13 04:57:11Negative (05/23/17 11:57 PM)[facility] URINE AND LSXPC0818-28-53 04:57:11Clear (05/23/17 11:57 PM)[facility] DOTDC6037-82-97 04:57:11Yellow *NA*(05/23/17 11:57 PM)[facility] KTENX1159-30-10 04:57:11 Test Item Value Reference Range Interpretation Comments UA pH (test code = UA pH) 6.5 1 5.0-8.0 [facility] YEDVH1891-37-83 04:57:110.2[facility] JFDCU8779-53-37 04:57:11Negative (05/23/17 11:57 PM)[facility] DGPRF3386-87-89 04:57:11Negative (05/23/17 11:57 PM)[facility] ZZVMG7281-82-32 04:57:11Negative *NA*(05/23/17 11:57 PM)[facility] OLMIO9296-30-53 04:57:11Negative *NA*(05/23/17 11:57 PM)[facility] CenterCARDIAC GFJJFZU4414-22-31 02:37:00 <0.02[facility] CenterCHEM FCEFQ1321-53-79 02:37:000.8[facility] CenterCHE[facility] QBTDJ3391-64-25 02:37:003.1[facility] DallasCHE[facility] PANEL 2017-05-24 02:37:00 Test Item Value Reference Range Interpretation Comments A/G Ratio (test code = A/G Ratio) 0.9 1 0.7-1.6 [facility] CenterCHE[facility] MRHHY8788-26-50 02:37:69102LBOdessa Regional Medical Center CHEM JUFLS2508-25-50 02:37:0021[facility] CenterCHEM CTGYC8297-77-33 02:37:000.[address] [place], [place] [address]CHEM GNZTP3135-37-29 02:37:[address] [place], [place] [address]CHEM FNVPD7987-52-78 02:37:002.9[facility] CenterCHE[facility] PANEL 2017-05-24 02:37:0023[facility] CenterCHE[facility] ZOCDK6157-93-22 02:37:006.0[facility] CenterCHE[facility] MVDRU6013-94-35 02:37:000.0[facility] CenterCHE[facility] HWGVO5184-59-57 02:37:0043[facility] CenterCHE[facility] MRLHF0690-88-42 02:37:00 138[facility] CenterCHEM HFQVQ6615-39-41 02:37:15185TEOdessa Regional Medical CenterCHEM JNOQZ1134-01-59 02:37:004.5[facility] CenterCHEM PANEL 2017-05-24 02:37:001.82[facility] CenterCHE[facility] IHJML3340-21-24 02:37:[address] [place], [place] [address]CHEM JQPTH2277-23-79 02:37:0023[facility] CenterCHEM JDKMC4952-20-77 02:37:0016[facility] CenterCHE[facility] TPOMD2741-85-16 02:37:0094 [facility] CenterCHE[facility] DOLLI5265-38-70 02:37:0011.5[facility] NEBTIWQUYX7990-48-97 02:37:[address] [place], [place] [address]RcoqyrNNZTFAYAHG2436-87-26 02:37:002.8[facility] CenterFjsdelLQNUEJETFZ0307-89-01 02:37:0050.8[facility] CenterBesrzjZDYQRZZWZV5017-75-25 02:37:000.[address] [place], [place] [address]HEMATOLOGY 2017-05-24 02:37:000.[address] [place], [place] [address]HixelcUSSWLRTXXY8723-85-36 02:37:000.[address] [place], [place] [address]HtztwmFVCXFHNKSE5779-75-07 02:37:003.5[facility] JKOBALQNSB7731-15-18 02:37:004.[address] [place], [place] [address]ZzhkohZZZVITRWUH4352-65-05 02:37:007.0[facility] CenterWfmrshNEIOVKLITQ4610-57-83 02:37:[address] [place], [place] [address]QpwnpzOTMIHHMUJD7566-10-12 02:37:008.5[facility] CenterHE[facility] 2017-05-24 02:37:0026.0[facility]2018-[facility]-12 02:37:003.28 [facility]2018-03-12 02:37:009.0[facility] DTYDRBHYNU6006-74-00 02:37:0032.7[facility]AT[facility]2018-03-12 02:37:0079.4[facility]AT[facility]2018-03-12 02:37:00 Test Item Value Reference Range Interpretation Comments MCH (test code = MCH) 26.0 pg 27.0-31.0 [facility]2018-03-12 02:37:007.3[facility] IMCMZASLIG7869-29-36 02:37:27903ZE[facility] HospitalATOLOGY2018-03-12 02:37:0020.[address] [place], [place] [address]ATOLOGY2018-03-12 02:37:00 Test Item Value Reference Range Interpretation Comments INR (test code = INR) 0.89 1 0.85-1.17 [facility]2018-03-12 02:37:00 Test Item Value Reference Range Interpretation Comments PT (test code = PT) 12.0 s 12.0-14.7 [facility]2018-03-12 02:37:00 Test Item Value Reference Range Interpretation Comments PTT (test code = PTT) 24.1 s 22.9-35.8 [facility]
--- NOTE | 2019-08-14 21:33 | ER ---
Nurse's Notes [facility] Name: Jeovany Buckley Age: 53 yrs Sex: Male : 1965 Arrival Date: 08/14/2019 Time: 20:18 Bed Waiting Private MD: Diagnosis: Presentation: 08/13 20:18 Chief complaint: Patient states: Back pain that wraps around trunk to lower abdomen for ll1 days. Brought by [facility]. Coronavirus screen: Proceed with normal triage. Patient denies a cough. Patient denies shortness of breath or difficulty breathing. Patient denies measured and/or subjective temperature greater than 100.4F prior to today's visit. Patient denies travel on a cruise ship or to a country the [facility] currently lists as an affected area. Patient denies contact with known and/or suspected case of COVID-19. Ebola Screen: Patient denies travel to an Ebola-affected area in the 21 days before illness onset. 20:18 Method Of Arrival: EMS: [facility] ll1 20:18 Acuity: JED 3 ll1 20:23 Initial Sepsis Screen: Does the patient meet any 2 criteria? HR > 90 bpm. Does the ll1 patient have a suspected source of infection? Yes: Acute abdominal pain. Risk Assessment: Do you want to hurt yourself or someone else? Patient reports no desire to harm self or others. Onset of symptoms. Historical: - Allergies: 20:20 Aspirin; ll1 20:20 PENICILLINS; ll1 20:20 Sulfa (Sulfonamide Antibiotics); ll1 - PMHx: 20:20 Bipolar disorder; DVT; RLE; Dade's Disease; Hypertension; liver damage; Renal ll1 Disease; - PSHx: 20:20 Cholecystectomy; ll1 - Immunization history:: Adult Immunizations up to date. - Social history:: Patient/guardian denies using alcohol, street drugs, tobacco products. Vital Signs: 20:23 BP 126 / 90; Pulse 96; Resp 18; Temp 98.7; Pulse Ox 97% ; Pain 6/10; ll1 ED Course: 20:18 Patient arrived in ED. ll1 20:19 Triage completed. ll1 20:20 Arm band placed on Patient notified of wait time. ll1 Administered Medications: No medications were administered Outcome: 21:32 Patient left the ED. ll1 Signatures: Jayla Ely, RN RN ll1
[2019-08-14 21:42] VITALS: BP 126/90; TEMP 98.7; O2SAT 97
== END 2019-08-14 21:32 | disposition left against medical advice (07) ==
LOC: ER 20:13
DX: Z53.21 Procedure and treatment not carried out due to patient leaving prior to being seen by health care provider (principal)
CPT/HCPCS: 99282

== ENCOUNTER 2019-08-15 00:05 | Emergency (ER) | payer MEDICARE ==
--- OUTSIDE RECORDS SUMMARY | 2019-08-15 00:08 | XMS REPORT | Clinical Summary ---
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
--- OUTSIDE RECORDS SUMMARY | 2019-08-15 00:20 | XMS REPORT | Continuity of Care Document ---
:1965 Author Organization [facility] Care Team Providers Name Role Phone [facility] Unavailable Un available Problems Problem Status Onset [...] digestive system procedure FLANK PAIN [facility] [facility] 18 ABDOMINAL PAIN Active 11/27/19 [facility] 18 Acute embolism 06/01/19 08/30/2017 [place] and thrombosis of 18 Me [facility]ical right femoral Center vein Acute embolism 05/24/19 08/30/2017 [place] and thrombosis of 18 [facility] unspecified deep [address] veins of unspecified distal lower extremity LEG PAIN Active 05/24/[address] Center Acute embolism 08/30/2017 [place] and thrombosis of Me dical right popliteal Cent er vein Chronic kidney 08/30/2017 [place] disease, Medical unspecified Center Acute kidney 07/04/2018 [facility] failure, unspecified [place] 07/24/2018 [facility] disease Chronic embolism 06/20/2018 [place] and thrombosis of unspecified deep veins of right lower extremity Chronic kidney 07/24/2018 [facility] disease, stage 3 (moderate) Nicotine 07/24/2018 [place] [facility] dependence, cigarettes, uncomplicated Acute gastritis 06/20/2018 [facility] without bleeding Constipation, 06/17/2018 [facility] unspecified Hyperkalemia 06/20/2018 [facility] long term 07/24/2018 [facility] (current) use of anticoagulants 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/24/2018 [facility] biliary tract (disorder) Bipolar disorder Active Problem 07/24/2018 [facility] (disorder) Chronic Active Problem 07/24/2018 [facility] cholecystitis with calculus (disorder) Chronic kidney Active Problem 07/24/2018 [place] disease Medical (disorder) Center, [facility] 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/24/2018 [facility] function Medical (finding) Center,[facility] Deep venous Active Problem 07/24/2018 [facility] thrombosis (disorder) [place] 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) Tx dical [place], [facility] Suicidal 07/04/2018 [facility] Chronic embolism 07/04/2018 [facility] and thrombosis of unspecified deep veins of unspecified lower extremity Other ascites 07/04/2018 [facility] Other infectious 07/04/2018 [facility] disease Right upper 07/04/2018 [facility] quadrant pain Cyst of kidney, 07/04/2018 [facility] acquired Other surgical 07/04/2018 [facility] procedures as the cause of abnormal reaction of the patient, or of later complication, without mention of misadventure at the time of the procedure Bipolar disorder, 07/24/2018 [facility] unspecified Gastro-esophageal 07/24/2018 [facility] reflux disease without esophagitis Diaphragmatic 07/04/2018 [facility] hernia without obstruction or gangrene Acquired absence 07/24/2018 [facility] of other specified parts of digestive tract Acidosis 07/24/2018 [facility] Hypertensive 07/24/2018 [facility] chronic kidney disease with stage 1 through stage 4 chronic kidney disease, or unspecified chronic kidney disease Hypocalcemia 07/24/2018 [facility] Anemia, 07/24/2018 [facility] unspecified Dehydration 07/24/2018 [facility] Hypovolemia 07/24/2018 [facility] Hematuria, 07/24/2018 [facility] unspecified Personal history 07/24/2018 [place] of other venous thrombosis and embolism ACUTE Active [facility] st CHOLECYSTITIS CALCULUS OF Active [facility] GALLBLADDER W CHRONIC CHOLEC OTHER ASCITES Active [facility] OTHER SPECIFIED Active [facility] DISORDERS OF PERITONEUM ACUTE KIDNEY Active [facility] FAILURE, UNSPECIFIED UNSPECIFIED Active [facility] KIDNEY FAILURE Medications Medication Details Route Status Patient Ordering Order Source Instructions Provider Date Flomax Notes: (Same Inactive As: Flomax) 2017 [facility] "Do Not Crush" apixaban 2.5 MG 2.5 mg = 1 tab, Active Oral Tablet PO, BID, # 60 2018 [facility] [Eliquis] tab, 0 Refill(s), Pharmacy: [facility]/pharmacy #[id number] Folic Acid 1 MG 1 mg = 1 tab, Active Oral Tablet PO, Daily, # 30 2018 [facility] tab, 3 Refill(s), Pharmacy: [facility]/pharmacy #[id number] oxybutynin 5 mg 5 mg = 1 tab, Active oral tablet, PO, Daily, # 30 2018 [facility] extended release tab, 1 Refill(s), Pharmacy: [facility]/pharmacy #[id number] ferrous sulfate 325 mg = 1 tab, Active 325 MG Oral PO, BID, # 60 2018 [facility] Tablet tab, 2 Refill(s), Pharmacy: [facility]/pharmacy #[id number] QUEtiapine 100 300 mg = 3 tab, Active H mg oral tablet PO, Bedtime, 0 2018 [facility] Refill(s) Potassium Notes: (Same Inactive Chloride 1.33 as: K-Tania) [address] [facility] [address] MEQ/ML Oral With food and Solution full glass of water Acetaminophen Notes: Do not No Longer 300 MG / Codeine exceed 4gm/day Active 2017 [facility] Phosphate 30 MG of Oral Tablet acetaminophen. [Tylenol with (Same as: Codeine #3] Tylenol with Codeine # 3) ferrous sulfate Notes: Give No Longer with food. iron Active 2017 [place] [facility] elemental [id number] as ferrous sulfate Dose=___mg elemental iron Folic Acid Notes: (Same No Longer as: Folvite) Active 2017 [facility] Seroquel Notes: (Same No Longer as: SEROquel) Active 2017 [facility] zolpidem Notes: (Same No Longer As: Ambien) Active 2017 [facility] Nicotine Notes: (Same No Longer as: Habitrol) Active 2017 [facility] "Remove old patch before application of [...] Duration: 30 day, Stop date: 01/31/18 11:54:00 IDEA WORKER, 2.06, m2 sodium Notes: (sodium Inactive bicarbonate 150 bicarb 8.4% (1 2017 [facility] mEq + Dextrose mEq/ml) 50 ml 5% in Water IV VL) 850 mL Protonix Notes: Tablet No Longer should not be Active 2017 [facility] chewed or crushed. (Same as: Protonix) Lexapro Notes: (Same No Longer as: Lexapro) Active 2017 [facility] Flagyl Notes: (Same No Longer as: Flagyl) Active 2017 [facility] Avoid alcohol. Trazodone Notes: (Same No Longer As: Desyrel) Active 2017 [facility] sodium 1,000 mL, Rate: Inactive bicarbonate 8.4% 100 ml/hr, 2018 [facility] additive 150 mEq Infuse over: 10 + D5W 1000 mL hr, Route: IV, Dosing Weight 84.6 kg, Total Volume: 1,000, Start date: 01/01/18 9:10:00 CDT, Duration: 30 day, Stop date: 01/31/18 9:09:00 IDEA WORKER, 2.06, m2 Eliquis Notes: Same as: No Longer Eliquis Active 2017 [facility] Buspirone Notes: (Same No Longer As: BuSpar) Active 2017 [facility] Lisinopril Notes: (Same Inactive as: Prinivil, 2017 [facility] Zestril) Trazodone Notes: (Same No Longer Hydrochloride 50 As: Desyrel) Active 2018 [facility] MG Oral Tablet Melatonin Notes: (Same No Longer as: Melatonin) Active 2017 [facility] Oxycodone Notes: (Same No Longer Hydrochloride 5 as: Roxicodone) Active 2017 [facility] MG Oral Tablet Acetaminophen Notes: Do not No Longer exceed 4 Active 2017 [facility] gm/day. (Same as: Tylenol) Morphine Notes: (Same No Longer as:MORPhine Active 2017 [facility] Sulfate) Glucagon 1 mg, Route: No Longer IM, Drug form: Active 2017 [facility] PDR/INJ, PRN, Dosing Weight 86.364, kg, PRN Blood Glucose Results, Start date: 12/31/17 23:30:00 CDT, Duration: 30 day, Stop date: 01/30/18 22:29:00 IDEA WORKER Dextrose 50% 25 gm, 50 mL, No Longer Syringe Route: IVP, Active 2017 [facility] Drug Form: INJ, Dosing Weight 86.364, kg, PRN, PRN Blood Glucose Results, Start date: 12/31/17 23:30:00 CDT, Duration: 30 day, Stop date: 01/30/18 22:29:00 IDEA WORKER Ondansetron Notes: (Same No Longer as: Zofran) Active 2017 [facility] MEDICATION WASTE Product Size: 4 mg Product Wasted: ___ mg normal saline 1,000 mL, Rate: No Longer 0.9% IV 1,000 mL 150 ml/hr, Active 2017 [facility] Infuse over: 6.7 hr, Route: IV, Dosing Weight 86.364 kg, Total Volume: 1,000, Start date: 12/31/17 23:30:00 CDT, Duration: 30 day, Stop date: 01/30/18 23:29:00 IDEA WORKER, 2.09, m2 NS (Bolus) IV 500 mL, 500 Inactive ml/hr, Infuse 2017 [facility] Over: 1 hr, Route: IV, 500, Drug form: INJ, ONCE, Priority: STAT, Dosing Weight 86.364 kg, Start date: 12/31/17 21:05:00 CDT, Stop date: 12/31/17 21:05:00 CDT Phenergan Notes: Do not Inactive give IV push. 2017 [facility] (Same as: Phenergan) Tylenol Notes: Do not Inactive exceed 4 2017 [facility] gm/day. (Same as: Tylenol) Saline Flush Notes: (Same No Longer 0.9% as: BD Active 2017 [facility] Posiflush) Tramadol Notes: Not to No Longer exceed Active 2017 [facility] 400mg/day. (Same As: Ultram) Protonix Notes: Tablet No Longer should not be Active 2017 [facility] chewed or crushed. (Same as: Protonix) Lexapro Notes: (Same No Longer as: Lexapro) Active 2017 [facility] Buspar Notes: (Same No Longer As: BuSpar) Active 2017 [facility] influenza virus Notes: (Same No Longer H vaccine, as: Fluzone Active 2017 [facility] inactivated Quadrivalent, Fluarix Quadrivalent) For 3 years of age and older (0.5 mL IM) Shake well before use zolpidem Notes: (Same No Longer As: Ambien) Active 2017 [facility] Seroquel Notes: (Same No Longer as: SEROquel) Active 2017 [facility] Metronidazole Notes: (Same Inactive as: Flagyl) 2017 [facility] Avoid alcohol. cefepime Notes: (Same Inactive As: Maxipime) 2017 [facility] MEDICATION WASTE Product Size: 1000 mg [...] (Same No Longer As: Desyrel) Active 2017 [facility] Morphine Notes: (Same No Longer as:MORPhine Active 2017 [facility] Sulfate) Ondansetron Notes: (Same No Longer as: Zofran) Active 2017 [facility] MEDICATION WASTE Product Size: 4 mg Product Wasted: ___ mg Acetaminophen Notes: Do not No Longer exceed 4 Active 2017 [facility] gm/day. (Same as: Tylenol) NS (Bolus) IV 1,000 mL, 2,000 Inactive H ml/hr, Infuse 2017 [facility] Over: 1 hr, Route: IV, ONCE, Priority: STAT, Dosing Weight 83.636 kg, Start date: 12/12/17 17:31:00 CDT, Stop date: 12/12/17 17:31:00 CDT Acetaminophen 2 tab, PO, Q6H, Active 300 MG / Codeine PRN Pain, # 56 2018 [facility] Phosphate 30 MG tab, 0 Oral Tablet Refill(s) [Tylenol with Codeine #3] pantoprazole 40 40 mg = 1 tab, Active H MG Enteric PO, Daily, # 30 2018 [place] [facility] Tablet tab, 0 [Protonix] Refill(s) Escitalopram [...] Active oral tablet PO, Bedtime, 0 2018 [place] Refill(s) Ondansetron 4 mg, Route: Inactive IVP, Drug form: 2017 [facility] INJ, ONCE, Dosing Weight 83.636, kg, Priority: STAT, Start date: 12/12/17 16:33:00 CDT, Stop date: 12/12/17 16:33:00 CDT Morphine 4 mg, Route: Inactive IVP, ONCE, 2017 [facility] Dosing Weight 83.636, kg, Priority: STAT, Start date: 12/12/17 16:33:00 CDT, Stop date: 12/12/17 16:33:00 CDT Saline Flush Notes: (Same No Longer 0.9% as: BD Active 2017 [facility] Posiflush) Seroquel Notes: (Same Inactive as: SEROquel) 2017 [facility] Acetaminophen 2 tab, PO, Q6H, No Longer 300 MG / Codeine PRN Pain Score Active 2017 [facility] Phosphate 30 MG 6-10, X 7 day, Oral Tablet # 50 tab, 0 [Tylenol with Refill(s) Codeine #3] Lisinopril Notes: (Same Inactive as: Prinivil, 2017 [facility] Zestril) Nexium 40 mg, Route: Inactive PO, Daily, 2017 [facility] Dosing Weight 90, kg, Start date: 12/01/17 9:00:00 CDT, Duration: 30 day, Stop date: 12/30/17 9:00:00 CDT Buspar Notes: (Same Inactive As: BuSpar) 2017 [facility] Acetaminophen Notes: Do not Inactive 300 MG / Codeine exceed 4gm/day 2017 [facility] Phosphate 30 MG of Oral Tablet [...] Route: IV, Drug Inactive form: INJ, 2017 [facility] ONCE, Stop date: 11/30/17 14:04:00 CDT fentaNYL (ANES) Route: IV, Drug Inactive form: INJ, 2017 ONCE, Stop date: 11/30/17 13:59:00 CDT lidocaine (ANES) Route: IV, Drug Inactive form: INJ2017 ONCE, Stop date: 11/30/17 13:59:00 CDT morphine Sulfate Route: IV, Drug Inactive (ANES) form: INJ, 2017 [facility] ONCE, Stop date: 11/30/17 13:59:00 CDT [...] IV, Inactive Injection IV Total Volume: 2017 [place] (ANES) 1000 mL 1,000, Start date: 11/30/17 12:44:00 CDT, Stop date: 11/30/17 13:44:00 CDT Ondansetron Notes: (Same No Longer as: Zofran) Active 2017 [facility] MEDICATION WASTE Product Size: 4 mg Product Wasted: ___ mg Naloxone Notes: Same as No Longer Narcan Active 2017 [facility] Flumazenil Notes: (Same No Longer as: Romazicon) Active 2017 [facility] Morphine Notes: (Same No Longer as:MORPhine Active 2017 [facility] Sulfate) Hydromorphone Notes: Same as: No Longer Dilaudid Active 2017 [facility] Hydralazine Notes: (Same No Longer as: Apresoline) Active 2017 [facility] t Push over 5 minutes Metoprolol Notes: (Same No Longer as: Lopressor) Active 2017 [facility] Push over 2 minutes Calcium Chloride 1,000 mL, Rate: No Longer 11/30 0.0014 MEQ/ML / 25 ml/hr, Active 2017 [facility] ast Potassium Infuse over: 40 Chloride 0.004 hr, Route: IV, MEQ/ML / Sodium Dosing Weight Chloride 0.103 90 kg, Total MEQ/ML / Sodium Volume: 1,000, Lactate 0.028 Start date: MEQ/ML 11/30/17 Injectable 12:33:00 CDT, Solution Stop date: 12/01/17 9:57:00 CDT, 2.12, m2 Lactated Ringers 1,000 mL, Rate: No Longer 11/30 IV 1,000 mL 40 ml/hr, Active 2017 [facility] Infuse over: 25 hr, Route: IV, Dosing Weight 90 kg, Total Volume: 1,000, Start date: 11/30/17 12:22:00 CDT, Stop date: 12/01/17 9:57:00 CDT, 2.12, m2 Pepcid Notes: (Same No Longer as: Pepcid) Can Active 2017 [place] t be dilute in 5-10cc NS IVP: Slow IV push over at least 2 minutes. Buspar 15 mg, PO, Active Daily, 0 2017 [facility] Refill(s) lisinopril 5 mg 5 mg = 1 tab, No Longer oral tablet PO, Daily, # 30 Active 2017 [facility] tab, 0 Refill(s) Aspirin Notes: Take Inactive with food. 2017 [facility] cefepime Notes: (Same No Longer As: Maxipime) Active 2017 [facility] MEDICATION WASTE Product Size: 1000 mg Product Wasted: ___ mg Bentyl Notes: (Same No Longer as: Bentyl) Active 2017 [facility] Calcium Notes: WASTE: No Longer Gluconate F/P - Sink; E - Active 2017 [facility] Magnesium Oxide Notes: (Same No Longer H as: Mag-Ox 400) Active 2017 [facility] Magnesium oxide [id number] elemental magnesium Dose=____mg magnesium oxide (___mg elemental magnesium) Magnesium Notes: WASTE: No Longer Sulfate F/P - Sink; E - Active 2017 [facility] Potassium Notes: Infuse No Longer Chloride at a rate of 10 Active [address] [facility] [address] mEq/hr. (Same as: KCL) potassium Notes: [...] No Longer Softgels as: Mylicon) Active 2017 [facility] Protonix Notes: Tablet No Longer should not be Active 2017 [facility] chewed or crushed. (Same as: Protonix) Flagyl 500 mg, Route: Inactive IVPB, ONCE, 2017 [facility] Dosing Weight 90.909, kg, Priority: STAT, Start date: 11/29/17 13:16:00 CDT, Stop date: 11/29/17 13:16:00 CDT, ABX Indication: Intra-abdominal Infection Zofran 4 mg, Route: Inactive IVP, Drug form: 2017 [facility] INJ, ONCE, Dosing Weight 90.909, kg, Priority: STAT, Start date: 11/29/17 13:00:00 CDT, Stop date: 11/29/17 13:00:00 CDT Morphine 4 mg, Route: Inactive IVP, ONCE, 2017 [facility] Dosing Weight 90.909, kg, Priority: STAT, Start date: 11/29/17 13:00:00 CDT, Stop date: 11/29/17 13:00:00 CDT Saline Flush Notes: (Same No Longer 0.9% as: BD Active 2017 [facility] Posiflush) Lexapro Notes: (Same No Longer as: Lexapro) Active 2017 [facility] Buspar Notes: (Same No Longer As: BuSpar) Active 2017 [facility] quetiapine Notes: (Same Inactive as: SEROquel) 2017 [facility] Hydralazine Notes: (Same Inactive Hydrochloride 25 as: Apresoline) 2018 [facility] MG Oral Tablet May interfere w/enteral feedings Take With Food Albuterol 0.83 Notes: SEE RT Inactive MG/ML Inhalant DOCUMENTATION 2017 [facility] Solution (Same as: Proventil) Kayexalate Notes: (sodium Inactive polystyrene 2018 [facility] sulfonate 15 gm/60 ml DEE) Shake well before use. (Same as: Kayexalate, SPS) quetiapine Notes: (Same Inactive as: SEROquel) 2017 [facility] Escitalopram Notes: (Same Inactive as: Lexapro) 2017 [facility] cefepime Notes: (Same No Longer As: Maxipime) Active 2017 [facility] MEDICATION WASTE Product Size: 1000 mg [...] 100 mg, PO, Active Bedtime, PRN 2017 [facility] Sleep, 0 Refill(s) Nexium 40 mg, PO, No Longer Daily, 0 Active 2017 [facility] Refill(s) Lisinopril 5 mg, PO, No Longer Daily, 0 Active 2017 [facility] Refill(s) Eliquis 5 mg, PO, BID, No Longer 0 Refill(s) Active 2017 [facility] Buspar 15 mg, PO, No Longer Daily, 0 Active 2017 [facility] Refill(s) Escitalopram 20 20 mg = [...] (Same No Longer as: Bentyl) Active 2017 [facility] Alprazolam 0.25 Notes: With No Longer MG Oral Tablet food or milk Active 2017 [place] [facility] [Xanax] (Same as: Xanax) Gas-X Ultra Notes: (Same No Longer Softgels as: Mylicon) Active 2017 [facility] Docusate Sodium Notes: (Same No Longer H 100 MG Oral as: Colace) (Do Active 2017 [facility] Capsule [Colace] Not Crush) Hydralazine /=90 No Longer Active 2017 [facility] tramadol Notes: Not to No Longer hydrochloride 50 exceed Active [address] MG Oral Tablet 400mg/day. (Same As: Ultram) Morphine Notes: (Same No Longer as:MORPhine Active 2017 [facility] Sulfate) Sodium Chloride 1,000 mL, Rate: No Longer 0.9% IV 1,000 mL 125 ml/hr, Active 2017 [facility] Infuse over: 8 hr, Route: IV, Dosing Weight 92.443 kg, Total Volume: 1,000, Start date: 11/27/17 12:37:00 CDT, Duration: 30 day, Stop date: 12/27/17 12:36:00 CDT Ondansetron Notes: (Same No Longer as: Zofran) Active 2017 [facility] MEDICATION WASTE Product Size: 4 mg Product Wasted: ___ mg Acetaminophen Notes: Max No Longer acetaminophen = Active 2017 [place] [facility] 4000mg/day (4 gm/day). (Same as: Tylenol) Protonix Notes: For IV No Longer push Active 2017 [facility] reconstitute with 10 ml 0.9% sodium chloride and push over 2 minutes. (Same as: Protonix) Levaquin Notes: (Same Inactive as:Levaquin) 2017 [facility] Flagyl Notes: (Same Inactive as: Flagyl) 2017 [facility] Avoid alcohol. Cipro Notes: Do not Inactive refrigerate 2017 [facility] Morphine 4 mg, Route: Inactive IVP, ONCE, 2017 [facility] Dosing Weight 92.443, kg, Priority: STAT, Start date: 11/27/17 11:33:00 CDT, Stop date: 11/27/17 11:33:00 CDT Visipaque 320 100 mL, Route: Inactive mg/mL injectable IVP, Dosing 2018 [facility]ast solution Weight 92.443, kg, ONCALL, GFR </= 45 mL/min, STAT, Start date: 11/27/17 7:59:00 CDT, Duration: 1 doses or times Zofran 4 mg, Route: Inactive IVP, Drug form: 2018 [facility] INJ, ONCE, Dosing Weight 92.443, kg, Priority: STAT, Start date: 11/27/17 6:21:00 CDT, Stop date: 11/27/17 6:21:00 CDT Morphine 4 mg, Route: Inactive IVP, ONCE, 2017 [facility] Dosing Weight 92.443, kg, Priority: STAT, [...] (Same No Longer As: Desyrel) Active 2017 [facility] {42 (rivaroxaban 1 tab, PO, No [...] ELECTROLYT eGFR 42 01/04 Result Comment: [facility] eGFR is calculated using the CKD-EPI [...] Calcium Lvl 7.2 8.5 - 10.5 01/04 [facility] ELECTROLYT Creatinine 1.85 0.50 - 01/04 [...] 28.7 42.0 - 01/04 MH 54.0 2018 [facility] HEMATOLOGY Hgb 9.6 14.0 - 01/04 18. [facility] URINE AND UA RBC 6 0 - 2 01/04 STOOL [facility] URINE AND UA Mucus Few /LPF None Seen 01/04 STOOL /LPF [facility] URINE AND UA WBC 1 0 - 5 01/04 [facility]OL [facility] URINE AND UA Sq Epi Occasional Few /LPF 01/04 STOOL /LPF [facility] Culture: No Growth 01/04 Urine [facility] CHEM PANEL Glucose Lvl 161 70 - 99 01/03 [facility] CHEM PANEL Calcium Lvl 7.4 8.5 - 10.5 01/03 [facility] CHEM PANEL eGFR 27 01/03 Comment: [facility] eGFR is calculated using the CKD-EPI [...] PANEL AGAP 10.4 10.0 - 01/03 20. [facility] CHEM PANEL Chloride Lvl 108 95 - 109 01/03 [facility] CHEM PANEL Sodium Lvl 144 135 - 145 01/03 [facility] CHEM PANEL Potassium 3.4 3.5 - 5.1 01/03 Lvl [facility] CHEM PANEL BUN 59 7 - 22 01/03 [facility] CHEM PANEL Creatinine 2.64 0.50 - 01/03 Lvl 1.40 /2017 [facility] HEMATOLOGY Hgb 9.1 14.0 - 01/03 18. [facility] HEMATOLOGY Hct 27.0 42.0 - 01/03 MH 54.0 [facility] URINE AND UA <=1.0 0.1 - 1.0 01/02 STOOL Urobilinogen mg/dL [facility] URINE AND UA Color Yellow Yellow 01/02 STOOL *NA* /2017 [facility] (01/02/18 5:05 PM) URINE AND UA Turbidity Clear Clear 01/02 [facility] (01/02/18 5:05 PM) [place] URINE AND UA Glucose Negative Negative 01/02 [facility] mg/dL mg/dL [facility] URINE AND UA pH 6.0 5.0 - 8.0 01/02 [facility]OL [facility] URINE AND UA Protein Negative Negative 01/02 [facility] mg/dL mg/dL [facility] URINE AND UA Spec Grav 1.006 <=1.030 01/02 [facility] URINE AND UA Blood Large Negative 01/02 STOOL *ABN* /2017 [facility] (01/02/18 5:05 PM) URINE AND UA Nitrite Negative Negative 01/02 [facility] (01/02/18 5:05 PM) [place] URINE AND UA Ketones Negative Negative 01/02 STOOL mg/dL mg/dL [facility] URINE AND UA Bili Negative Negative 01/02 STOOL *NA* /2017 [facility] (01/02/18 5:05 PM) URINE AND UA Mucus Few /LPF None Seen 01/02 STOOL /LPF [facility] URINE AND UA RBC 29 0 - 2 01/02 [facility] URINE AND UA WBC <1 0 - 5 01/02 STOOL [facility] URINE AND UA Leuk Est Negative Negative 01/02 STO[facility] (01/02/18 5:05 PM) [place] URINE AND UA Sq Epi Occasional Few /LPF 01/02 STOOL /LPF [facility] URINE CHEM U Protein 18.3 01/02 [facility] URINE CHEM U Prot/Creat 0.35 01/02 [facility] URINE CHEM U Creatinine 52.10 01/02 [facility] URINE CHEM U Creatinine 52.10 01/02 [facility] URINE CHEM U Sodium 43 01/02 [facility] ANEMIA Vitamin B12 519 254 - 1320 01/02 STUDY Lvl [facility] ANEMIA % Satur Fe 38 12 - 57 01/02 STUDY [facility] ANEMIA TIBC 244 228 - 428 01/02 [facility] ANEMIA Iron 92 45 - 160 01/02 [facility] ANEMIA UIBC 152 110 - 370 01/02 [facility] ANEMIA Ferritin Lvl 48 22 - 275 01/02 [facility] ANEMIA Folate Lvl 2.9 >=3.0 01/02 STUDY ng/mL /2017 [facility] CARDIAC Total CK 86 12 - 191 01/02 [facility] CHEM PANEL eGFR 25 01/02 [facility] Comment: [facility] eGFR is calculated using the CKD-EPI [...] PANEL BUN 79 7 - 22 01/02 [facility] CHEM PANEL Glucose Lvl 91 70 - 99 01/02 [facility] CHEM PANEL Potassium 3.6 3.5 - 5.1 01/02 Lvl [facility] CHEM PANEL Creatinine 2.86 0.50 - 01/02 Lvl 1.40 [facility] CHEM PANEL Sodium Lvl 145 135 - 145 01/02 [facility] CHEM PANEL Calcium Lvl 7.7 8.5 - 10.5 01/02 [facility] CHEM PANEL AGAP 11.6 10.0 - 01/02 20.0 [facility] CHEM PANEL Chloride Lvl 114 95 - 109 01/02 [facility] CHEM PANEL CO2 23 24 - 32 01/02 [facility] HEMATOLOGY Platelet 136 133 - 450 01/02 [facility] HEMATOLOGY MPV 8.5 7.4 - 10.4 01/02 [facility] HEMATOLOGY RDW 15.7 11.5 - 10/21 MH 14.5 [facility] HEMATOLOGY MCHC 34.3 32.0 - 01/02 MH 36.0 [facility] HEMATOLOGY WBC 5.8 3.7 - 10.4 01/02 [facility] HEMATOLOGY Hct 27.1 42.0 - 01/02 MH 54.0 [facility] HEMATOLOGY MCV 87.5 80.0 - 01/02 MH 94.0 [facility] HEMATOLOGY MCH 30.0 27.0 - 01/02 MH 31.0 [facility] HEMATOLOGY Hgb 9.3 14.0 - 01/02 MH 18.0 [facility] HEMATOLOGY RBC 3.10 4.70 - 01/02 MH 6.10 [facility] HEMATOLOGY D-Dimer 0.47 01/02 [facility] DRUG U Opiate Scr Positive Negative 01/01 MH SCREEN *ABN* /2017 [facility] (01/01/18 8:10 AM) DRUG U Benzodiaz Negative Negative 01/01 [facility] SCREEN Scr *NA* [facility] (01/01/18 8:10 AM) DRUG U Cocaine Negative Negative 01/01 [facility] SCREEN Scr *NA* [facility] (01/01/18 8:10 AM) DRUG U Cannab Scr Negative Negative 01/01 [facility] SCREEN *NA* /2017 [facility] (01/01/18 8:10 AM) DRUG U Kami Scr Negative Negative 01/01 MH SCREEN *NA* [facility] (01/01/18 8:10 AM) DRUG U Amph Scr Negative Negative 01/01 MH SCREEN *NA* /2017 [facility] (01/01/18 8:10 AM) DRUG U Negative Negative 01/01 MH SCREEN Phencyclidin *NA* [facility] e Scr (01/01/18 8:10 AM) DRUG UDS Note See Note 01/01 MH SCREEN (01/01/18 8:10 AM) /2017 [facility] Hgb A1C 5.4 <=5.6 % 01/01 CHEMISTRY /2017 [facility] CHEM PANEL Phosphorus 5.3 2.5 - 4.5 01/01 [facility] CHEM PANEL Total 6.2 6.4 - 8.4 01/01 Protein [facility] CHEM PANEL B/C Ratio 20 6 - 25 01/01 [facility] CHEM PANEL Bili Total 0.2 0.2 - 1.3 01/01 [facility] CHEM PANEL Alk Phos 94 39 - 136 01/01 [facility] CHEM PANEL AST 10 0 - 37 01/01 [facility] CHEM PANEL ALT 17 0 - 65 01/01 [facility] CHEM PANEL A/G Ratio 1.0 0.7 - 1.6 01/01 [facility] CHEM PANEL Globulin 3.1 2.7 - 4.2 01/01 [facility] CHEM PANEL Albumin Lvl 3.1 3.5 - 5.0 01/01 [facility] CHEM PANEL Lactic Acid 0.4 0.5 - 2.2 01/01 Lvl /2017 [facility] CARDIAC Total CK 206 12 - 191 01/01 ENZYMES [facility] URINE AND UA <=1.0 0.1 - 1.0 01/01 [facility] Urobilinogen mg/dL [facility] URINE AND UA Ketones Negative Negative 01/01 [facility] mg/dL mg/dL [facility] URINE AND UA Glucose Negative Negative 01/01 [facility] mg/dL mg/dL [facility] URINE AND UA Blood Small Negative 01/01 STOOL *ABN* /2017 [facility] (12/31/17 7:53 PM) URINE AND UA Bili Negative Negative 01/01 STOOL *NA* /2017 [facility] (12/31/17 7:53 PM) URINE AND UA Nitrite Negative Negative 01/01 [facility] (12/31/17 7:53 PM) [facility] URINE AND UA Sq Epi Occasional Few /LPF 01/01 STOOL /LPF /2017 [facility] URINE AND UA Leuk Est Negative Negative 01/01 [facility] (12/31/17 7:53 PM) [facility] URINE AND UA RBC 2 0 - 2 01/01 [facility] URINE AND UA WBC 3 0 - 5 01/01 [facility] URINE AND UA Mucus Few /LPF None Seen 01/01 [facility] /LPF [facility] URINE AND UA pH 5.0 5.0 - 8.0 01/01 [facility] URINE AND UA Color Yellow Yellow 01/01 STOOL *NA* /2017 [facility] (12/31/17 7:53 PM) URINE AND UA Spec Grav 1.010 <=1.030 01/01 [facility] URINE AND UA Turbidity Clear Clear 01/01 [facility] (12/31/17 7:53 PM) [place] URINE AND UA Protein Negative Negative 01/01 STOOL mg/dL mg/dL /2017 [facility] CARDIAC Troponin-I <0.02 0.00 - 01/01 MH ENZYMES 0.40 [facility] CHEM PANEL Lipase Lvl 205 73 - 393 01/01 [facility] CHEM PANEL Bili Total 0.3 0.2 - 1.3 01/01 [facility] CHEM PANEL Alk Phos 125 39 - 136 01/01 [facility] CHEM PANEL Albumin Lvl 3.9 3.5 - 5.0 01/01 [facility] CHEM PANEL Total 7.9 6.4 - 8.4 01/01 Protein [facility] CHEM PANEL AST 15 0 - 37 01/01 [facility] CHEM PANEL ALT 21 0 - 65 01/01 [facility] CHEM PANEL A/G Ratio 1.0 0.7 - 1.6 01/01 [facility] CHEM PANEL Globulin 4.0 2.7 - 4.2 01/01 [facility] CHEM PANEL B/C Ratio 16 6 - 25 01/01 [facility] HEMATOLOGY MCV 88.4 80.0 - 01/01 MH 94.0 [facility] HEMATOLOGY MCH 29.1 27.0 - 01/01 MH 31.0 [facility] HEMATOLOGY MCHC 32.9 32.0 - 01/01 MH 36.0 [facility] HEMATOLOGY RDW 15.7 11.5 - 01/01 MH 14.5 [facility] HEMATOLOGY WBC 7.2 3.7 - 10.4 01/01 [facility] HEMATOLOGY RBC 4.16 4.70 - 01/01 MH 6.10 [facility] HEMATOLOGY MPV 8.6 7.4 - 10.4 01/01 [facility] HEMATOLOGY Platelet 175 133 - 450 01/01 [facility] HEMATOLOGY Monocytes 5.8 2.0 - 12.0 01/01 [facility] HEMATOLOGY Eosinophils 3.0 0.0 - 4.0 01/01 [facility] HEMATOLOGY Lymphocytes 28.2 20.0 - 01/01 MH 40.0 [facility] HEMATOLOGY Segs 62.4 45.0 - 01/01 MH 75.0 /2017 [facility] HEMATOLOGY Monocytes # 0.4 0.0 - 0.8 01/01 [facility] HEMATOLOGY Eosinophils 0.2 0.0 - 0.5 01/01 MH # /2018 [facility] HEMATOLOGY Basophils 0.6 0.0 - 1.0 01/01 [facility] HEMATOLOGY Neutrophils 4.5 1.5 - 8.1 01/01 # /2017 [facility] HEMATOLOGY Lymphocytes 2.0 1.0 - 5.5 01/01 # /2017 [facility] ELECTROLYT AGAP 10.7 10.0 - 12/13 ES 20.0 /2017 [facility] ELECTROLYT eGFR 41 12/13 [facility] Comment: [facility] eGFR is calculated using the CKD-EPI [...] ELECTROLYT CO2 23 24 - 32 12/13 [facility] ELECTROLYT Calcium Lvl 8.2 8.5 - [...] Glucose Lvl 84 70 - 99 12/13 [facility] HEMATOLOGY RDW 14.9 11.5 - 12/13 14.5 [facility] HEMATOLOGY Platelet 226 133 - 450 12/13 [facility] HEMATOLOGY MPV 7.2 7.4 - 10.4 12/13 [facility] HEMATOLOGY MCHC 33.7 32.0 - 12/13 36.0 [facility] HEMATOLOGY MCH 30.0 27.0 - 12/13 MH 31.0 /2017 [facility] HEMATOLOGY MCV 89.2 80.0 - 12/13 MH 94.0 /2017 [facility] HEMATOLOGY Hct 32.9 42.0 - 12/13 MH 54.0 /2017 [facility] HEMATOLOGY RBC 3.69 4.70 - 12/13 MH 6.10 [facility] HEMATOLOGY WBC 7.4 3.7 - 10.4 12/13 [facility] HEMATOLOGY Hgb 11.1 14.0 - 12/13 MH 18.0 [facility] HEMATOLOGY Monocytes # 0.5 0.0 - 0.8 12/13 [facility] HEMATOLOGY Lymphocytes 3.1 1.0 - 5.5 12/13 MH # /2017 [facility] HEMATOLOGY Neutrophils 3.4 1.5 - 8.1 12/13 [facility] HEMATOLOGY Eosinophils 0.3 0.0 - 0.5 12/13 # /2017 [facility] HEMATOLOGY Lymphocytes 42.4 20.0 - 12/13 MH 40.0 [facility] HEMATOLOGY Segs 46.4 45.0 - 12/13 75.0 [facility] HEMATOLOGY Monocytes 6.5 2.0 - 12.0 [...] Bili Negative Negative 12/12 STOOL *NA* /2017 [facility] (12/12/17 5:31 PM) URINE AND UA pH 6.0 5.0 - 8.0 12/12 [facility] URINE AND UA Glucose Negative Negative 12/12 [facility] mg/dL mg/dL [facility] URINE AND UA Protein Negative Negative 12/12 [facility] mg/dL mg/dL [facility] URINE AND UA Spec Grav 1.006 <=1.030 12/12 [facility] URINE AND UA Ketones Negative Negative 12/12 [facility] mg/dL mg/dL [facility] URINE AND UA Turbidity Clear Clear 12/12 [facility] (12/12/17 5:31 PM) [facility] ast CHEM PANEL Lipase Lvl 224 [...] CHEM PANEL eGFR 37 12/12 Comment: [facility] eGFR is calculated using the CKD-EPI [...] 10.7 10.0 - 12/12 MH 20.0 /2017 [facility] CHEM PANEL Globulin 3.7 2.7 - 4.2 12/12 [facility] CHEM PANEL B/C Ratio 24 6 - 25 12/12 [facility] CHEM PANEL A/G Ratio 0.9 0.7 - 1.6 12/12 [facility] HEMATOLOGY Segs 56.2 45.0 - 12/12 MH 75.0 /2017 [facility] HEMATOLOGY Monocytes 5.2 2.0 - 12.0 12/12 [facility] HEMATOLOGY Lymphocytes 35.2 20.0 - 12/12 MH 40.0 /2017 [facility] HEMATOLOGY Neutrophils 4.5 1.5 - 8.1 12/12 MH # /2017 [facility] HEMATOLOGY Basophils 0.4 0.0 - 1.0 12/12 [facility] HEMATOLOGY Lymphocytes 2.8 1.0 - 5.5 12/12 MH # /2017 [facility] HEMATOLOGY Eosinophils 0.2 0.0 - 0.5 12/12 MH # /2017 [facility] HEMATOLOGY Eosinophils 3.0 0.0 - 4.0 12/12 [facility] HEMATOLOGY Monocytes # 0.4 0.0 - 0.8 12/12 [facility] HEMATOLOGY Platelet 232 133 - 450 12/12 [facility] HEMATOLOGY MPV 7.3 7.4 - 10.4 12/12 [facility] HEMATOLOGY RBC 3.65 4.70 - 12/12 MH 6.10 /2017 [facility] HEMATOLOGY WBC 7.9 3.7 - 10.4 12/12 [facility] HEMATOLOGY Hgb 11.1 14.0 - 12/12 MH 18.0 [facility] HEMATOLOGY MCHC 34.2 32.0 - 12/12 MH 36.0 /2017 [facility] HEMATOLOGY MCH 30.5 27.0 - 12/12 MH 31.0 /2017 [facility] HEMATOLOGY Hct 32.5 42.0 - 12/12 MH 54.0 /2017 [facility] HEMATOLOGY MCV 89.1 80.0 - 12/12 MH 94.0 /2017 [facility] HEMATOLOGY RDW 14.8 11.5 - 12/12 MH 14.5 /2018 [facility] HEMATOLOGY PT 12.0 12.0 - 12/12 MH 14.7 /2018 [facility] HEMATOLOGY INR 0.89 0.85 - 12/12 MH 1.17 /2017 [facility] HEMATOLOGY PTT 28.5 22.9 - 12/12 MH 35.8 /2018 [facility] CHEM PANEL Magnesium 1.8 1.8 - 2.4 12/01 MH Lvl /2017 [facility] CHEM PANEL eGFR 40 12/01 Result Comment: [facility] eGFR is calculated using the CKD-EPI [...] PANEL Globulin 3.4 2.7 - 4.2 12/01 [facility] CHEM PANEL A/G Ratio 1.0 0.7 [...] PANEL BUN 20 7 - 22 12/01 [facility] HEMATOLOGY MCV 92.1 80.0 - 12/01 MH 94.0 [facility] HEMATOLOGY Hct 33.5 42.0 - 12/01 MH 54.0 [facility] HEMATOLOGY MCH 30.4 27.0 - 12/01 MH 31.0 [facility] HEMATOLOGY MCHC 33.0 32.0 - 12/01 MH 36.0 [facility] HEMATOLOGY Hgb 11.1 14.0 - 12/01 MH 18.0 [facility] HEMATOLOGY MPV 8.0 7.4 - 10.4 12/01 [facility] HEMATOLOGY Platelet 165 133 - 450 12/01 [facility] HEMATOLOGY RDW 15.0 11.5 - 12/01 MH 14.5 [facility] HEMATOLOGY WBC 11.1 3.7 - 10.4 12/01 [facility] HEMATOLOGY RBC 3.64 4.70 - 12/01 MH 6.10 [facility] CHEM PANEL Phosphorus 3.9 2.5 - 4.5 11/30 [facility] CHEM PANEL eGFR 40 11/30 Result Comment: [facility] eGFR is calculated using the CKD-EPI [...] 1.8 - 2.4 18 MH Lvl /2017 [facility] HEMATOLOGY Hct 31.8 42.0 - 11/30 MH 54.0 2018 [facility] HEMATOLOGY MCV 90.5 80.0 - 11/30 MH 94.0 [facility] HEMATOLOGY WBC 7.8 3.7 - 10.4 11/30 MH [facility] HEMATOLOGY RBC 3.51 4.70 - 11/30 MH 6.10 [facility] HEMATOLOGY Hgb 10.9 14.0 - 09 MH 18.0 [facility] HEMATOLOGY MCH 30.9 27.0 - 11/30 MH 31.0 /2017 [facility] HEMATOLOGY MCHC 34.2 32.0 - 11/30 MH 36.0 /2017 [facility] HEMATOLOGY MPV 7.7 7.4 - 10.4 11/30 /2017 [facility] HEMATOLOGY RDW 14.9 11.5 - 11/30 MH 14.5 /2017 [facility] HEMATOLOGY Platelet 176 133 - 450 11/30 /2017 [facility] HEMATOLOGY Neutrophils 3.7 1.5 - 8.1 11/30 MH # /2018 [facility] HEMATOLOGY Lymphocytes 3.4 1.0 - 5.5 11/30 MH # /2018 [facility] HEMATOLOGY Basophils 0.2 0.0 - 1.0 11/30 /2017 [facility] HEMATOLOGY Monocytes # 0.5 0.0 - 0.8 11/30 /2017 [facility] HEMATOLOGY Eosinophils 0.3 0.0 - 0.5 11/30 MH # /2017 [facility] HEMATOLOGY Lymphocytes 43.4 20.0 - 11/30 MH 40.0 [facility] HEMATOLOGY Segs 46.7 45.0 - 11/30 MH 75.0 [facility] HEMATOLOGY Monocytes 6.0 2.0 - 12.0 11/30 /2017 [facility] HEMATOLOGY Eosinophils 3.7 0.0 - 4.0 11/30 /2017 [facility] DRUG U Negative Negative 11/29 SCREEN Phencyclidin *NA* [facility] Scr (11/29/17 12:39 PM) DRUG U Opiate Scr Negative Negative 11/29 SCREEN *NA* /2017 [facility] (11/29/17 12:39 PM) DRUG U Benzodiaz Negative Negative 11/29 SCREEN Scr *NA* [facility] (11/29/17 12:39 PM) DRUG U Cocaine Negative Negative 11/29 SCREEN Scr *NA* [facility] (11/29/17 12:39 PM) DRUG U Cannab Scr Negative Negative 11/29 SCREEN *NA* [facility] (11/29/17 12:39 PM) DRUG UDS Note See Note 11/29 MH SCREEN (11/29/17 12:39 PM) /2017 [facility] DRUG U Kami Scr Negative Negative 11/29 SCREEN *NA* [facility] (11/29/17 12:39 PM) DRUG U Amph Scr Negative Negative 11/29 SCREEN *NA* [facility] (11/29/17 12:39 PM) URINE AND UA <=1.0 0.1 - 1.0 11/29 STOOL Urobilinogen mg/dL /2017 [facility] URINE AND UA Sq Epi None Seen 11/29 STOOL [facility] URINE AND UA Leuk Est Negative Negative 11/29 [facility] (11/29/17 12:39 PM) [facility] URINE AND UA Nitrite Negative Negative 11/29 [facility] (11/29/17 12:39 PM) [facility] URINE AND UA Blood Negative Negative 11/29 [facility] (11/29/17 12:39 PM) [place] URINE AND UA Bili Negative Negative 11/29 STOOL *NA* /2017 [facility] (11/29/17 12:39 PM) URINE AND UA Ketones Negative Negative 11/29 [facility]OOL mg/dL mg/dL [facility] URINE AND UA Protein Negative Negative 11/29 STOOL mg/dL mg/dL /2017 [facility] URINE AND UA Glucose Negative Negative 11/29 STOOL mg/dL mg/dL /2017 [facility] URINE AND UA pH 6.0 5.0 - 8.0 11/29 [facility] URINE AND UA Bacteria Occasional None Seen 11/29 STOOL /HPF /HPF /2017 [facility] URINE AND UA RBC 1 0 - 2 11/29 [facility] URINE AND UA WBC <1 0 - 5 11/29 [facility] URINE AND UA Spec Grav 1.002 <=1.030 11/29 STOOL [facility] URINE AND UA Turbidity Clear Clear 11/29 [facility] (11/29/17 12:39 PM) [facility] URINE AND UA Color Colorless Yellow 11/29 STOOL *NA* /2017 [facility] (11/29/17 12:39 PM) CARDIAC Troponin-I <0.02 0.00 - 11/29 ENZYMES 0.40 [facility] CARDIAC Total CK 367 12 - 191 11/29 ENZYMES /2017 [facility] CHEM PANEL B/C Ratio 13 6 - 25 11/29 [facility] CHEM PANEL Globulin 3.2 2.7 - 4.2 11/29 [facility] CHEM PANEL A/G Ratio 1.2 0.7 - 1.6 11/29 [facility] CHEM PANEL AGAP 11.1 10.0 - 11/29 20.0 /2017 [facility] CHEM PANEL eGFR 31 11/29 [facility] Comment: [facility] eGFR is calculated using the CKD-EPI [...] Glucose Lvl 89 70 - 99 11/29 [facility] HEMATOLOGY MCH 30.3 27.0 - 11/29 MH 31.0 [facility] HEMATOLOGY MCV 89.7 80.0 - 11/29 MH 94.0 [facility] HEMATOLOGY Platelet 181 133 - 450 11/29 [facility] HEMATOLOGY RDW 14.8 11.5 - 11/29 MH 14.5 [facility] HEMATOLOGY MCHC 33.8 32.0 - 11/29 MH 36.0 /2018 [facility] HEMATOLOGY MPV 7.6 7.4 - 10.4 11/29 /2017 [facility] HEMATOLOGY WBC 10.2 3.7 - 10.4 11/29 /2017 [facility] HEMATOLOGY Hgb 11.4 14.0 - 11/29 MH 18.0 /2017 [facility] HEMATOLOGY RBC 3.77 4.70 - 11/29 MH 6.10 /2017 [facility] HEMATOLOGY Hct 33.8 42.0 - 11/29 MH 54.0 /2017 [facility] HEMATOLOGY Neutrophils 6.1 1.5 - 8.1 [...] PANEL eGFR 31 11/28 Result Comment: [facility] eGFR is calculated using the CKD-EPI [...] PANEL Phosphorus 4.1 2.5 - 4.5 11/28 [facility] CHEM PANEL Magnesium 1.9 1.8 - 2.4 11/28 Lvl [facility] CHEM PANEL eGFR 37 11/28 [facility] Comment: [facility] eGFR is calculated using the CKD-EPI [...] Glucose Lvl 136 70 - 99 11/28 [facility] CHEM PANEL Alk Phos 110 39 - 136 11/28 [facility] CHEM PANEL Bili Total 0.2 0.2 - 1.3 11/28 [facility] CHEM PANEL AST 17 0 - 37 11/28 [facility] CHEM PANEL Albumin Lvl 3.6 3.5 [...] Platelet 171 133 - 450 11/28 /2017 [facility] HEMATOLOGY MPV 7.8 7.4 - 10.4 11/28 [facility] HEMATOLOGY RDW 14.8 11.5 - 11/28 MH 14.5 /2017 [facility] HEMATOLOGY MCV 90.7 80.0 - 11/28 94.0 [facility] HEMATOLOGY MCH 30.3 27.0 - 11/28 31.0 /2017 [facility] HEMATOLOGY WBC 8.4 3.7 - 10.4 11/28 [facility] URINE AND Occult Bld Positive Negative 11/27 STOOL Stl *ABN* /2017 [facility] (11/27/17 6:55 AM) URINE AND UA Color STRAW 11/27 STOOL [facility] URINE AND UA <=1.0 0.1 - 1.0 11/27 [facility] Urobilinogen mg/dL /2017 [facility] URINE AND UA Nitrite Negative Negative [...] Negative Negative 11/27 [facility] (11/27/17 2:33 AM) [facility] URINE AND UA Protein Negative Negative 11/27 STOOL mg/dL mg/dL [facility] URINE AND UA pH 6.0 5.0 - 8.0 11/27 [facility] URINE AND UA Bili Negative Negative 11/27 STOOL *NA* /2017 [facility] (11/27/17 2:33 AM) URINE AND UA Ketones Negative Negative 11/27 [facility] mg/dL mg/dL [facility] URINE AND UA Turbidity Clear Clear 11/27 [facility] (11/27/17 2:33 AM) [facility] URINE AND UA Spec Grav 1.004 <=1.030 11/27 [facility] URINE AND UA Glucose Negative Negative 11/27 [facility] mg/dL mg/dL [facility] CHEM PANEL Lipase Lvl 360 73 - 393 11/27 [facility] CHEM PANEL Albumin Lvl 4.1 3.5 - 5.0 11/27 [facility] CHEM PANEL Total 7.6 6.4 - 8.4 11/27 Protein [facility] CHEM PANEL Calcium Lvl 8.3 8.5 - 10.5 11/27 [facility] CHEM PANEL eGFR 35 11/27 [facility] Comment: [facility] eGFR is calculated using the CKD-EPI [...] Ratio 1.2 0.7 - 1.6 11/27 /2017 [facility] HEMATOLOGY MCH 30.2 27.0 - 11/27 MH 31.0 /2017 [facility] HEMATOLOGY MCHC 33.7 32.0 - 11/27 MH 36.0 /2017 [facility] HEMATOLOGY Hct 36.8 42.0 - 11/27 MH 54.0 /2017 [facility] HEMATOLOGY MCV 89.7 80.0 - 11/27 MH 94.0 /2017 [facility] HEMATOLOGY RDW 14.9 11.5 - 11/27 MH 14.5 [facility] HEMATOLOGY Platelet 202 133 - 450 11/27 MH /2017 [facility] HEMATOLOGY MPV 7.6 7.4 - 10.4 11/27 /2017 [facility] HEMATOLOGY WBC 14.9 3.7 - 10.4 11/27 [facility] HEMATOLOGY RBC 4.10 4.70 - 11/27 MH 6.10 [facility] HEMATOLOGY Hgb 12.4 14.0 - 11/27 MH 18.0 [facility] HEMATOLOGY Basophils 0.3 0.0 - 1.0 11/27 /2017 [facility] HEMATOLOGY Neutrophils 9.2 1.5 - 8.1 11/27 MH # /2017 [facility] HEMATOLOGY Lymphocytes 4.2 1.0 - 5.5 11/27 MH # /2017 [facility] HEMATOLOGY Monocytes # 1.1 0.0 - 0.8 11/27 [facility] HEMATOLOGY Eosinophils 0.3 0.0 - 0.5 11/27 MH # /2017 [facility] HEMATOLOGY Segs 61.6 45.0 - 11/27 MH 75.0 /2017 [facility] HEMATOLOGY Lymphocytes 28.6 20.0 - 11/27 40.0 /2017 [facility] HEMATOLOGY Monocytes 7.4 2.0 - 12.0 11/27 [facility] HEMATOLOGY Eosinophils 2.1 0.0 - 4.0 11/27 /2017 [facility] URINE AND UA Hyal Cast 0-2 [...] URINE AND UA Nitrite Negative Negative 05/24 [facility] STOOL (05/23/17 11:57 PM) /[facility] URINE AND UA Sq Epi Few /LPF Few /LPF 05/24 [facility] STOOL /2018 [facility] URINE AND UA Leuk Est Negative Negative 05/24 [facility] STOOL (05/23/17 11:57 PM) /2017 [facility] URINE AND UA Spec Grav <=1.005 <=1.030 05/24 [facility] STOOL *NA* /2017 [facility] (05/23/17 11:57 PM) Cent[facility] r URINE AND UA Protein Negative Negative 05/24 [facility] STOOL (05/23/17 11:57 PM) /2017 [facility] URINE AND UA Turbidity Clear Clear 05/24 [facility] STOOL (05/23/17 11:57 PM) /2017 [facility] URINE AND UA Color Yellow Yellow 05/24 [facility] STOOL *NA* /2017 [facility] (05/23/17 11:57 PM) Cente r URINE AND UA pH 6.5 5.0 - 8.0 05/24 [facility] STOOL /2017 [facility] URINE AND UA 0.2 0.1 - 1.0 05/24 [facility] STOOL Urobilinogen /2017 [facility] URINE AND UA Blood Negative Negative 05/24 [facility] (05/23/17 11:57 PM) /2017 [facility] URINE AND UA Glucose Negative Negative 05/24 [facility] (05/23/17 11:57 PM) /2017 [facility] URINE AND UA Bili Negative Negative 05/24 [facility] STOOL *NA* /2017 [facility] (05/23/17 11:57 PM) Cente r URINE AND UA Ketones Negative Negative 05/24 [facility] STOOL *NA* /2017 [facility] (05/23/17 11:57 PM) Cente r CARDIAC Troponin-I <0.02 0.00 - 05/24 [facility] ENZYMES 0.40 [facility] CHEM PANEL Lactic Acid 0.8 0.5 - 2.2 05/24 [place] [facility] CHEM PANEL Globulin 3.1 2.7 - 4.2 05/24 [facility] [address] [place] [address] CHEM PANEL A/G Ratio 0.9 0.7 - 1.6 05/[address] CHEM PANEL Alk Phos 103 39 - 136 05/[address] CHEM PANEL AST 21 0 - 37 05/[address] CHEM PANEL Bili Direct 0.1 0.0 - 0.3 05/24 [facility] CHEM PANEL Bili Total 0.1 0.2 - 1.3 05/24 [facility]2017 [facility] CHEM PANEL Albumin Lvl 2.9 3.5 - 5.0 05/24 [facility] CHEM PANEL ALT 23 0 - 65 05/[address] CHEM PANEL Total 6.0 6.4 - 8.4 05/24 [facility] Protein [facility] CHEM PANEL Bili 0.0 0.0 - 1.0 05/24 [facility] Indirect [facility] CHEM PANEL eGFR 43 05/24 [facility] Comment: The [facility] eGFR is Center calculated [...] Sodium Lvl 138 135 - 145 05/24 [facility] CHEM PANEL Chloride Lvl 108 95 - 109 05/24 [facility] CHEM PANEL Potassium 4.5 3.5 - 5.1 05/24 [facility] CHEM PANEL Creatinine 1.82 0.50 - 05/24 [facility] Lvl 1.40 [facility] CHEM PANEL Calcium Lvl 8.1 8.5 - 10.5 05/24 [facility] CHEM PANEL CO2 23 24 - 32 05/[address] CHEM PANEL BUN 16 7 - 22 05/[address] CHEM PANEL Glucose Lvl 94 70 - 99 05/[address] CHEM PANEL AGAP 11.5 10.0 - [...] HEMATOLOGY Monocytes 7.0 2.0 - 12.0 05/24 [facility] HEMATOLOGY Lymphocytes 38.3 20.0 - 05/24 [...] HEMATOLOGY MPV 7.3 7.4 - 10.4 05/24 [facility] HEMATOLOGY Platelet 207 133 - 450 03 /2017 [facility] HEMATOLOGY RDW 20.1 11.5 - 03 [place] 14.5 /2018 [facility] HEMATOLOGY INR 0.89 0.85 - 03 [place] 1.17 /2017 [facility] HEMATOLOGY PT 12.0 12.0 - 05/24 [place] 14.7 [facility] HEMATOLOGY PTT 24.1 22.9 - 0312 [facility] 35.8 2018 [facility] Pathology Reports No Data Provided for This Section Diagnostic Reports Report Value Date Source Ext Lower Venous Doppler Patient Name: MANDY CAZARES 2017 [facility] [place] : 1965; Age: 52 years y/o Male MR: [id number] Study: Ext Lower Venous Doppler Bilat US [...] 2 to 3 weeks with vomiting. 12/31/2017 [facility] Comparison: CT of the abdomen and pelvis [...] - Post Noemi f luid accumulation. 12/12/2017 [facility] Comparison: CT abdomen pelvis 12/12/2017 TECHNIQUE: Hepatobiliary scan is [facility] med using 5 mCi of Tc-99m Choletec, [...] of bile leak status post cholecystectomy SL: [id number] ED Abdomen/Pelvis IV Clinical indication: - flank pain 12/13/19 18 [facility] contrast only CT Comparison: CT abdomen pelvis [...] - EVAL FOR MEDICO RENAL DISEASE 11/30/2017 [facility] Comparison: None TECHNIQUE: Multiple longitudinal and [...] right kidney suggesting medical renal disease. SL: [id number] Lung EXAM: VQ scan 11/29/2017 [facility] ventilation/perfusion HISTORY: Chest pain, history of pulmonary [...] in both lungs may reflect COPD. SL: [id number] Chest 1view DX Clinical Indication: - chest pain 11/29/2017 [facility] Comparison: 05/23/2017 FINDINGS: The frontal chest radiograph shows normal lung volumes without interstitial or airspace opacities, pleural effusions or pneumothorax. The cardiomediastinal contours are normal. The t rachea is midline. There are no clinically significant osseous abno rmalities noted. IMPRESSION: No chest radiographic evidence of acute cardiopu lmonary disease. SL: [id number] ED Abdomen/Pelvis IV Clinical Indication: - R si ded abd pain, elevated wbc, possible cholecystitis clinically 11/27/2017 [facility] contrast only CT Comparison: None TECHNIQUE: Helical [...] aspect of the right lower lobe. SL: [id number] Abdomen RUQ US Abdominal Ultrasound Limited 11/27/2017 [facility] HISTORY: - ruq pain. Nausea and vomiting. [...] RIGHT LOWER EXTREMITY VENO US DOPPLER 05/23/2017 [facility] US DATE: 05/23/2017 9:07 PM CDT [facility] er INDICATION: - RLE pain and [...] [place] Diastolic (mm Hg) 67 01/04/2018 [facility] st Heart Rate 101 01/04/2018 [facility] Respitory Rate 18 01/04/2018 [facility] Temperature Oral (F) 98.7 F 01/04/2018 [facility]ast Respitory Rate 19 01/04/2018 [facility] Heart Rate 94 01/04/2018 [facility] Systolic (mm Hg) 109 01/04/2018 [facility] Diastolic (mm Hg) 64 01/04/2018 [facility] st Temperature Oral (F) 97.8 F 01/04/2018 [facility] Heart Rate 72 01/04/2018 [facility] Respitory Rate 18 01/04/2018 [facility] Systolic (mm Hg) 96 01/04/2018 [facility] Diastolic (mm Hg) 61 01/04/2018 [facility] st Temperature Oral (F) 98.5 F 01/04/2018 [facility] Height 177.8 cm 01/01/2018 [facility] BMI Calculated 26.76 01/01/2018 [facility] Weight 84.6 01/01/2018 [facility] Height 177.8 cm 01/01/2018 [facility] Weight 86.364 12/31/2017 [facility] BMI Calculated 26.56 12/31/2017 [facility] Height 180.34 cm 12/31/2017 [facility] Respitory Rate 18 12/16/2017 [facility] Diastolic (mm Hg) 73 12/15/[address] [facility] [address] Height 177.8 cm 12/12/2017 [facility] BMI [...] 28.76 11/29/2017 [facility] Height 177.8 cm 11/29/2017 [facility] Temperature Oral (F) 98.3 F 11/29/2017 [facility] Heart Rate 96 11/29/2017 [facility] Respitory Rate 18 11/29/2017 [facility] Systolic (mm Hg) 98 11/29/2017 [facility] Diastolic (mm Hg) 61 11/29/[address] Systolic (mm Hg) 102 11/28/2017 [facility] Diastolic (mm Hg) 67 11/28/[address] Heart Rate 89 11/28/2017 [facility] Respitory Rate 18 11/28/2017 [facility] Temperature Oral (F) 98.1 F 11/28/2017 [facility] Respitory Rate 18 11/28/2017 [facility] Systolic (mm Hg) 100 11/28/2017 [facility] Diastolic (mm Hg) 64 11/28/[address] Heart Rate 78 11/28/2017 [facility] Temperature Oral (F) 97.7 F 11/28/2017 [facility] BMI Calculated 28.55 11/27/2017 [facility] Height 177.8 cm 11/27/2017 [facility] Weight 90.256 11/27/2017 [facility] Weight 92.443 11/27/2017 [facility] Weight 92.443 11/27/2017 [facility] Respitory Rate 18 05/24/2017 [facility] Systolic (mm Hg) 102 05/24/2017 [facility] Diastolic (mm Hg) 54 05/24/2017 [facility] Temperature Oral (F) 98.8 F 05/24/2017 [facility] Respitory Rate 16 05/24/2017 [facility] Temperature Oral (F) 98.5 F 05/24/2017 [facility] Systolic (mm Hg) 98 05/24/2017 [facility] Diastolic (mm Hg) 59 05/24/2017 [facility] Respitory Rate 16 05/24/2017 [facility] Systolic (mm Hg) 102 05/24/2017 [facility] Diastolic (mm Hg) 55 05/24/2017 [facility] Heart Rate 90 05/24/2017 [facility] Temperature Oral (F) 98.2 F 05/24/2017 [facility] Encounters Location Location Encounter Encounter Reason Attending ADM DC Stat us Source Details Type Number For Provider Date Date [facility] [id number] Magdalena 05/24 05/24 Miguel Ángel Kirkland /2017 [facility] Inpatient [id number] Anirudh 11/27 11/29 Adonay Reyes II /2017 [facility] Inpatient [id number] [place] 11/29 12/01 Adonay Reyes II /2017 [facility] Inpatient [id number] Wilbert 12/12 12/16 Adonay Lovett /2017 [facility] Inpatient [id number] Carmen 12/31 01/04 Adonay Lund /2017 [facility] Procedures Procedure Code Date Perfomer Comments Source Cholecystectomy [id number] [facility] Assessment and Plan Assessment and Plan Date Source Extracted from:Title: RENAL progress note 01/04/2018 [facility] Author: Jonathan Shepherd MD Date: 01/04/18 Impression [...] this consutl MAZIN IM / Nephrology Attending [facility] [address], [facility] [address] Extracted from:Title: General Admission H&P * Author: [...] disorder 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 He [...] mL: 1 gm, 25 ml/hr, I VPB, [id number] hydrALAZINE: 10 mg, 0.5 mL, IVP, Q6H, [...] INJ 100 mL 1 gm, I VPB, [id number] dicyclomine 20 mg TAB 20 mg 1 [...] elemental) tab 800 mg 2 tab, PO, CO N magnesium sulfate 1gm/100ml D5W premix 1 gm 100 mL, IVPB, P RN magnesium sulfate 2 gm/H20 50ml soln 2 gm 50 mL, IVPB, PRN MORPhine sulfate PF 2 mg/ml CARP 2 mg 1 mL, IVP, Q4H ondansetron 4 mg/2ml INJ VL 4 mg 2 mL, IVP, Q4H potassium chloride 10 mEq/100 ml PB 10 mEq 100 mL, IVPB, CO N potassium chloride 20 mEq ERT 20 [...] cho lecystitis with obstruction / SNOMED CT 209865770 / Confirmed Calculus of gallbladder with chronic cho lecystitis without obstruction / SNOMED CT 890947432 / Confirmed CKD (chronic kidney disease) / SNOMED CT 5817351237 / Confir med Liver dysfunction / SNOMED CT 791082590 / Confirmed Maricopa disease / SNOMED CT 21595019 / Confirmed Resolved: Gallstones / SNOMED CT 671979260, Active Problems (5) Calculus of gallbladder with chronic cholecystitis with obst ruction Calculus of gallbladder with chronic cholecystitis without o bstruction CKD (chronic kidney disease) [place] disease Liver dysfunction Histories Past Medical History: Active CKD (chronic kidney disease) (3461144514) Liver dysfunction (743008686) [place]opa disease (94006984) Resolved Gallstones (594360663): Resolved., 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 Await evaluation from general surgery. Signature Line Anirudh Rich DO Electronically Signed: 11/29/17 16:47 Extracted from:Title: GS Consult * Author: Jg Luke MD Date: 11/29/17 Impression and Plan Diagnosis Calculus of gallbladder with chronic cho lecystitis without obstruction (HGM46-SS K80.10, Working, Medical). Course: Progressing as expected. 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 SL: [id number] Abdomen RUQ US 11/27/2017 06:47 Impression: Limited [...] patient with just hepar in Monitor on radiation monitor Disposition: Anticipate 2-3 midnights of hospitalization stabilize [...] patient with just hepar in Monitor on radiation monitor Disposition: Anticipate 1-2 midnights of hospitalization stabilize patient's acute presentation. Await evaluation from general surgery. Plan of Care No Data Provided for This Section Social History Social History Date Source Social History TypeResponse 01/01/2018 [facility] Substance Abuse Use: None. Alcohol Never Smoking Status Current every day smoker; Ready to phan e: No; Concerns about tobacco use in household: No; Exposure to Tobacco Smoke None; Cigarette Smoking Last 365 Days No; Reg Smoking Cessation Counseling No entered on: 12/31/17 Social History TypeResponse 05/24/2017 [facility] Smoking Status Current every day smoker; Ready [...]
--- OUTSIDE RECORDS SUMMARY | 2019-08-15 00:32 | XMS REPORT | Continuity of Care Document ---
:1965 Author Organization [facility] t Address [address] [place] [address] Care Team Providers Name Role Phone Asked, [...] 12/31/2017 [place] FLANK PAIN Diagnosis Active 2017-12-15 12-12 12:27:00 [place] FLANK 06:00: st PAIN 00 Active 12/12/2017 [facility] CP Diagnosis Active 2017-11-30 11-29 09:29:00 [place] CP 00:00: st 00 Active 11/29/2017 [place] ABDOMINAL Diagnosis Active 2017-11-29 PAIN 9-14 11:47:00 [place] 00:00: st ABDOMINAL 00 PAIN Active 11/26/2017 [facility] Intentiona Intentiona Disease Active [place] drug l drug 3-13 Methodi overdose overdose 00:00: st 00 LEG PAIN Diagnosis Active 2017-05-23 M H 3-11 21:28:00 [place] LEG PAIN 00:00: Medica l 00 Center Active 05/23/2017 [facility] Chronic Chronic Problem Active CHI [...] thrombosis vein of right popliteal vein 8 [facility] Chronic Problem 2017-08-30 kidney 13:20:15 [place] disease, Chronic Medic al unspecifie kidney Center d disease, unspecifie d 08/30/2017 [facility] Acute Problem 2018-07-04 kidney 13:11:13 [place] failure, Acute st unspecifie kidney d failure, unspecifie d 07/04/2018 [place] Kaveh Problem 2018-07-24 H 's disease 12:47:[address] [place] 's disease 07/24/2018 [facility] Chronic Problem 2018-06-20 embolism 13:17:49 [place] [address] Chronic [address] thrombosis embolism of and unspecifie thrombosis d deep of veins of unspecifie right d deep lower veins of extremity right lower extremity 06/20/2018 [facility] Chronic Problem 2018-07-24 kidney 12:47:31 [place] disease, Chronic st stage 3 kidney (moderate) disease, stage 3 (moderate) 07/24/2018 [facility] Nicotine Problem 2018-07-24 dependence 12:47:31 [place] , Nicotine st cigarettes dependence , , uncomplica cigarettes maame , uncomplica maame 07/24/2018 [facility] Acute Problem 2018-06-20 gastritis 13:17:49 [place] ea without Acute st bleeding gastritis without bleeding 06/20/2018 [facility] Constipati Problem 2018-06-17 M H on, 11:20:[address] d Constipati on, unspecifie d 06/17/2018 [facility] Hyperkalem Problem 2018-06-20 M H ia 13:17:[address] Hyperkalem ia 06/20/2018 [facility] FPC Problem 2018-07-24 (current) 12:47:31 [place] e[place] use of Long st anticoagul term ants (current) use of anticoagul ants 9 [facility] Calculus Problem Active 2018-07-24 in biliary 12:47:31 [place] tract 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) Active Problem 07/24/2018 [facility] Bipolar Problem Active 2018-07-24 disorder 12:47:31 [place] a (disorder) Bipolar st disorder (disorder) Active Problem 07/24/2018 [facility] Chronic Problem Active 2018-07-24 cholecysti 12:47:31 [place] tis with Chronic st calculus cholecysti (disorder) tis with calculus (disorder) Active Problem 07/24/2018 [facility] Chronic Problem Active 2018-07-24 kidney 12:47:31 [place] disease Chronic Medica l (disorder) kidney Center , disease MH (disorder) Nort[place] a st Active Problem 07/24/2018 [facility] [place] [place] Decreased Problem Active 2018-07-24 liver 12:47:31 [place] function Medical (finding) Decreased Cent er, liver function [place] (finding) st Active Problem 07/24/2018 [facility] Deep Problem Active 2018-07-24 venous 12:47:[address] [place] [address] (disorder) venous thrombosis (disorder) Active Problem 07/24/2018 [facility] Kaveh Problem Active 2018-07-24 M H 's chorea 12:47:31 [place] (disorder) Medica [facility] , 's chorea MH (disorder) Nort[place] a st Active Problem 07/24/2018 [facility] [place] Suicidal Problem 2018-07-04 ideations 13:11:[address] ideations 07/04/2018 [facility] Chronic Problem 2018-07-04 embolism 13:11:13 [place] [address] Chronic [address] thrombosis embolism of and unspecifie thrombosis d deep of veins of unspecifie unspecifie d deep d lower veins of extremity unspecifie d lower extremity 07/04/2018 [facility] Other Problem 2018-07-04 ascites 13:11:[address] ascites 07/04/2018 [facility] Other Problem 2018-07-04 infectious 13:11:13 [place] disease Other st infectious disease 07/04/2018 [place] Right Problem 2018-07-04 upper 13:11:[address] [place] [address] pain upper quadrant pain 9 [facility] Cyst of Problem 2018-07-04 kidney, 13:11:13 [place] acquired Cyst of st kidney, acquired 07/04/2018 [facility] Other Problem 2018-07-04 surgical 13:11:13 [place] a procedures Other st as the surgical cause of procedures abnormal as the reaction cause of of the abnormal patient, reaction or of of the later patient, complicati or of on, later without complicati mention of on, misadventu without re at the mention of time of misadventu the re at the procedure time of the procedure 07/04/2018 [facility] Bipolar Problem 2018-07-24 disorder, 12:47:31 [place] unspecifie Bipolar st d disorder, unspecifie d 07/24/2018 [facility] Gastro-eso Problem 2018-07-24 M H phageal 12:47:[address] disease Gastro-eso without phageal esophagiti reflux s disease without esophagiti s 07/24/2018 [facility] Diaphragma Problem 2018-07-04 M H tic hernia 13:11:[address] obstructio Diaphragma n or tic hernia gangrene without obstructio n or gangrene 07/04/2018 [facility] Acquired Problem 2018-07-24 absence of 12:47:31 [place] other Acquired st specified absence of parts of other digestive specified tract parts of digestive tract 07/24/2018 [facility] Acidosis Problem 2018-07-24 12:47:[address] 07/24/2018 [facility] Hypertensi Problem 2018-07-24 M H ve chronic 12:47:[address] disease Hypertensi with stage ve chronic 1 through kidney stage 4 disease chronic with stage kidney 1 through disease, stage 4 or chronic unspecifie kidney d chronic disease, kidney or disease unspecifie d chronic kidney disease 07/24/2018 [facility] Hypocalcem Problem 2018-07-24 M H ia 12:47:31 [facility] st Hypocalcem ia 07/24/2018 [facility] Anemia, Problem 2018-07-24 unspecifie 12:47:31 [place] villaseñora d Anemia, st unspecifie d 07/24/2018 [facility] Dehydratio Problem 2018-07-24 M H n 12:47:31 [facility] st Dehydratio n 07/24/2018 [facility] Hypovolemi Problem 2018-07-24 M H a 12:47:31 [facility] st Hypovolemi a 07/24/2018 [facility] Hematuria, Problem 2018-07-24 M H unspecifie 12:47:[address] Hematuria, unspecifie d 07/24/2018 [facility] Personal Problem 2018-07-24 history of 12:47:31 [place] other Personal [address] venous history of thrombosis other and venous embolism thrombosis and embolism 07/24/2018 [facility] ACUTE Diagnosis Active 2017-11-29 CHOLECYSTI 11:47:00 [place] k[place] TIS ACUTE st CHOLECYSTI TIS Active [facility] CALCULUS Diagnosis Active 2017-11-30 M H OF 09:29:00 [facility] GALLBLADDE CALCULUS st R W OF CHRONIC GALLBLADDE CHOLEC R W CHRONIC CHOLEC Active [facility] OTHER Diagnosis Active 2017-12-15 ASCITES 12:27:00 [facility] OTHER st ASCITES Active [facility] OTHER Diagnosis Active 2017-12-15 SPECIFIED 12:27:00 [place] DISORDERS OTHER st OF SPECIFIED PERITONEUM DISORDERS OF PERITONEUM Active [facility] ACUTE Diagnosis Active 2017-12-15 KIDNEY 12:27:00 [place] FAILURE, ACUTE st UNSPECIFIE KIDNEY D FAILURE, UNSPECIFIE D Active [facility] UNSPECIFIE Diagnosis Active 2018-05-03 D KIDNEY 13:25:[address] UNSPECIFIE D KIDNEY FAILURE Active [facility] Acute Problem [id number] 2018-07-24 M H kidney 03-15 12:47:31 12:47:31 [place] a failure Acute 04:30: st with kidney 38 tubular failure necrosis with tubular necrosis 8 07/24/2018 [facility] Postproced Problem [id number] 2018-07-04 ural 0-17 13:11:13 13:11:13 [place] a hematoma 04:20: st of a Postproced 27 digestive ural system hematoma organ or of a structure digestive following system a organ or digestive structure system following procedure a digestive system procedure 12/29/2017 07/04/2018 [facility] Calculus Problem [id number] 2018-06-20 of 04-15 13:17:49 13:17:49 Shante monet gallbladde Calculus 09:42: st r with of 26 acute and gallbladde chronic r with cholecysti acute and tis chronic without cholecysti obstructio tis n without obstructio n 02/12/2018 06/20/2018 [facility] Acute Problem 2017-2017-08-30 2017-08-30 M H embolism 3- 13:20:15 13:20:15 [place] and Acute 02:47: Medical thrombosis embolism 38 Cent er of right and femoral thrombosis vein of right femoral vein 05/31/2017 08/30/2017 [facility] Acute Problem 2017-08-30 2017-08-30 M H embolism 3-11 13:20:15 13:20:15 [place] and Acute 06:00: Medical thrombosis embolism 00 Cent er of and unspecifie thrombosis d deep of veins of unspecifie unspecifie d deep d distal veins of lower unspecifie extremity d distal lower extremity 05/23/2017 08/30/2017 [facility] Allergies, Adverse Reactions, Alerts Allergy Allergy Status Severity Reaction(s) Onset Inactive Treating Comm ents Source Name Type Date Date Clinician Penicill DA [facility] [place] [facility] Sulfa DA Active [facility] (Sulfona 07-21 [place] mide 00:00: [facility] Antibiot 00 l ics) [facility] Penicill DA Active [facility] 06[facility]23 [place] [facility] Sulfa DA Active [facility] (Sulfona 06-23 [place] mide 00:00: [facility] Antibiot 00 l ics) [facility] Penicill DA Active [facility] 8 [place] [facility] Sulfa DA Active [facility] (Sulfona 10-22 [place] mide 00:00: Regiona Antibiot 00 l ics) Medical Center Penicill Propensi Active Hives [place] in ty to 3-12 Methodi adverse 00:00: st reaction 00 s to drug Sulfa Propensi Active Other (See Tongue [place] (Sulfona ty to Comments) 3-12 swelling Met hodi mide adverse 00:00: st Antibiot reaction 00 ics) s to drug sulfa sulfa Active Mem[facility] drugs drugs l [facility] penicill penicill Active Memori a in in l [facility] quinolon quinolon Active Memori a e e l antibiot antibiot Trae n ics ics [facility] Food Food Active Memoria Tomatoes Tomatoes l [facility] Family History Family Member Diagnosis Comments Start Date Stop Date Source Natural brother No Known Problems [facility] Confucianism Cousin No Known Problems [place] Confucianism Natural daughter No Known Problems [place] Confucianism Natural father No Known Problems Janae sid Confucianism Maternal No Known Problems [place] grandfather Confucianism Maternal No Known Problems [place] grandmother Confucianism Natural mother No Known Problems Janae sid Confucianism Paternal No Known Problems [place] grandfather Confucianism Paternal No Known Problems [place] grandmother Confucianism Natural sister No Known Problems Janae sid Confucianism Natural son No Known Problems [place] Confuc[place] Family member Asthma [place] Confucianism Family member Diabetes [place] Confucianism Family member Heart failure [place] Confucianism Family member Hyperlipidemia [place] Confucianism Family member Hypertension Fine Confucianism Family member Migraines [place]ucianism Family member Osteoarthritis [place] Confucianism Family member Rashes / Skin Fine problems Confucianism Family member Rheum arthritis [place] Confucianism Family member Seizures [place] Confucianism Family member Stroke Fine Confucianism Family member Thyroid disease [place] Confucianism Social History Social Habit Start Date Stop Date Quantity Comments Source Sex Assigned At [facility] ethodist Social History 2018-01-01 2018-01-01 [facility] ermann 01:16:07 01:16:07 [facility] Alcohol intake 2017-11-17 2017-11-17 Current [facility] thodist 00:00:00 00:00:00 non-drinker of alcohol (finding) Smoking Status Start Date Stop Date Source Social History 2017-05-24 02:41:18 [facility] Medications Ordered Filled Start Stop Current Ordering [...] st [Eliquis] 00 tab, 0 Refill(s), Pharmacy: [facility] #[id number] Folic Acid 2017-03 Yes 1 mg = 1 MH 1 MG Oral 0-23 tab, PO, [place] a Tablet 13:29: Daily, # st 00 30 tab, 3 Refill(s), Pharmacy: [facility] #[id number] oxybutynin 2017-03 Yes 5 mg = 1 MH 5 mg oral 0-23 tab, PO, [place] a tablet, 13:29: Daily, # st extended 00 30 tab, 1 release Refill(s), Pharmacy: [facility] #[id number] ferrous 2017-03 Yes 325 mg = 1 MH sulfate 325 0-23 tab, PO, [place] MG Oral 13:29: BID, # 60 st Tablet 00 tab, 2 Refill(s), Pharmacy: [facility] #[id number] QUEtiapine 2017-03 Yes 300 mg = 3 [...] No Notes: MH sulfate 0-22 Give with North 14:41: food. iron st 00 elemental [id number] as ferrous sulfate Dose=___mg elemental iron Folic Acid 2017-03 No Notes: MH 0-22 (Same as: [facility] 14:39: Folvite) st 00 Seroquel 2017-03 No Notes: MH 0-21 (Same as: [facility] 02:00: SEROquel) st 00 zolpidem 2017-03 No Notes: MH 0-21 (Same As: [facility] 02:00: Ambien) st 00 Nicotine 2017-03 No Notes: MH 0-20 (Same as: [facility] 20:42: Habitrol) st 00 "Remove old patch before applicatio n of new patch" WASTE: F/P - P Waste Black; E - P Waste Black sodium 2017-03 No Notes: bicarbonate 0-20 (sodium [place] e[place] 150 mEq + 17:44: bicarb st Dextrose 5% 00 8.4% (1 in Water IV mEq/ml) 50 850 mL ml VL) D5W 1,000 2017-03 No 1,000 mL, mL + sodium 0-20 Rate: 125 Nor cristhian acetate 2 16:55: ml/hr, st mEq/mL 00 Infuse intravenous over: 8.6 solution hr, Route: 150 mEq IV, Dosing Weight 84.6 kg, Total Volume: 1,075, Start date: 01/01/18 11:55:00 CDT, Duration: 30 day, Stop date: 01/31/18 11:54:00 INGOT SUPERVISOR, 2.06, m2 sodium 2017-03 No Notes: bicarbonate 0-20 (sodium [place] 150 mEq + 16:00: bicarb st Dextrose 5% 00 8.4% (1 in Water IV mEq/ml) 50 850 mL ml VL) Protonix 2017-03 No Notes: MH 0-20 Tablet [facility] 16:00: should not st 00 be chewed or crushed. (Same as: Protonix) Lexapro 2017-03 No Notes: MH 0-20 (Same as: [facility] 16:00: Lexapro) st 00 Flagyl 2017-03 No Notes: MH 0-20 (Same as: [facility] 15:00: Flagyl) st 00 Avoid alcohol. Trazodone 2017-03 No Notes: MH 0-20 (Same As: [facility] 14:39: Desyrel) st 00 sodium 2017-03 No 1,000 mL, MH bicarbonate 0-20 Rate: 100 [place] cr[place]ian 8.4% 14:10: ml/hr, st additive 00 Infuse 150 mEq + over: 10 D5W 1000 mL hr, Route: IV, Dosing Weight 84.6 kg, Total Volume: 1,000, Start date: 01/01/18 9:10:00 CDT, Duration: 30 day, Stop date: 01/31/18 9:09:00 INGOT SUPERVISOR, 2.06, m2 Eliquis 2017-03 No Notes: MH 0-20 Same as: [facility] 14:00: Eliquis st 00 Buspirone 2017-03 No Notes: MH 0-20 (Same As: [facility] 14:00: BuSpar) st 00 Lisinopril 2017-03 No Notes: MH 0-20 (Same as: [facility] 14:00: Prinivil, st 00 Zestril) Trazodone 2017-03 No Notes: MH Hydrochlori 0-20 (Same As: [place] cr[place]hian de 50 MG 04:35: Desyrel) st Oral Tablet 00 Melatonin 2017-03 No Notes: MH 0-20 (Same as: [facility] 04:32: Melatonin) st 00 Oxycodone 2017-03 No Notes: MH Hydrochlori 0-20 (Same as: [place] cr[place]hian de 5 MG 04:32: Roxicodone st Oral Tablet 00 ) Acetaminoph 2017-03 No Notes: Do M H en 0-20 not exceed [facility] 04:32: 4 gm/day. st 00 (Same as: Tylenol) Morphine 2017-03 No Notes: MH 0-20 (Same [facility] 04:32: as:MORPhin st 00 e Sulfate) Glucagon 2017-03 No 1 mg, MH 0-20 Route: IM, [place] 04:30: Drug form: st 00 PDR/INJ, PRN, Dosing Weight 86.364, kg, PRN Blood Glucose Results, Start date: 12/31/17 23:30:00 CDT, Duration: 30 day, Stop date: 01/30/18 22:29:00 IN[employer]OT SUPER[employer]OR Dextrose 2017-03 No 25 gm, 50 MH 50% Syringe 0-20 mL, Route: No rthea 04:30: IVP, Drug st Form: INJ, Dosing Weight 86.364, kg, PRN, PRN Blood Glucose Results, Start date: 12/31/17 23:30:00 CDT, Duration: 30 day, Stop date: 01/30/18 22:29:00 IN[employer]OT SUPER[employer]OR Ondansetron 2017-03 No Notes: MH 0-20 (Same as: [place] 04:30: Zofran) st MEDICATION WASTE Product Size: 4 mg Product Wasted: ___ mg normal 2017-03 No 1,000 mL, saline 0.9% 0-20 Rate: 150 [place] cr[place]hian IV 1,000 mL 04:30: ml/hr, Infuse over: 6.7 hr, Route: IV, Dosing Weight 86.364 kg, Total Volume: 1,000, Start date: 12/31/17 23:30:00 CDT, Duration: 30 day, Stop date: 01/30/18 23:29:00 INGOT SUPERVISOR, 2.09, m2 NS (Bolus) 2017-03 No 500 mL, IV 0-20 500 ml/hr, [place] 02:05: Infuse st Over: 1 hr, Route: IV, 500, Drug [...] 2017-03 No Notes: Not 0-02 to exceed [facility] 15:27: 400mg/day. st 00 (Same As: Ultram) Protonix 2017-03 No Notes: 0-01 Tablet [facility] 21:30: should not st 00 be chewed or crushed. (Same as: Protonix) Lexapro 2017-03 No Notes: MH 0-01 (Same as: [facility] 14:00: Lexapro) st Buspar 2017-03 No Notes: MH 0-01 (Same As: [facility] 14:00: BuSpar) st influenza 2017-03 No Notes: virus 0- (Same as: [facility] vaccine, 11:53: Fluzone st inactivated 36 Quadrivale nt, Fluarix Quadrivale nt) For 3 years of age and older (0.5 mL IM) Shake well before use zolpidem 2017-03 No Notes: 0-01 (Same As: [facility] 02:00: Ambien) st Seroquel 2017-03 No Notes: 0-01 (Same as: [facility] 02:00: SEROquel) st Metronidazo 2017-03 No Notes: le 0- (Same as: [facility] 00:27: Flagyl) st Avoid alcohol. cefepime 2017-03 No Notes: 0- (Same As: [facility] 00:26: Maxipime) st 00 MEDICATION WASTE Product [...] m2 Trazodone No Notes: 12-12 (Same As: [facility] 23:44: Desyrel) st Morphine No Notes: 12-12 (Same [facility] 23:37: as:MORPhin e Sulfate) Ondansetron No Notes: 12-12 (Same as: [facility] 23:37: Zofran) MEDICATION WASTE Product Size: 4 mg Product Wasted: ___ mg Acetaminoph No Notes: Do M H en 12-12 not exceed [facility] 23:37: 4 gm/day. (Same as: Tylenol) NS (Bolus) No 1,000 mL, IV 12-12 2,000 [facility] 22:31: ml/hr, Infuse Over: 1 hr, Route: [...] 5 mg = 1 MH mg oral -30 tab, PO, [place] tablet 22:24: Bedtime, 0 st 00 Refill(s) Ondansetron No 4 mg, 12-12 Route: [facility] 21:33: IVP, Drug form: INJ, ONCE, Dosing Weight 83.636, kg, Priority: STAT, Start date: 12/12/17 16:33:00 CDT, Stop date: 12/12/17 16:33:00 CDT Morphine No 4 mg, 12-12 Route: [place] 21:33: IVP, ONCE, Dosing Weight 83.636, kg, Priority: STAT, Start date: 12/12/17 16:33:00 CDT, Stop date: 12/12/17 16:33:00 CDT Saline No Notes: Flush 0.9% 12-12 (Same as: [place] 21:13: BD Posiflush) Seroquel No Notes: 12-02 (Same as: [facility] 02:00: SEROquel) Acetaminoph No 2 tab, PO, en 300 MG / 12-01 Q6H, PRN [place] Codeine 17:20: Pain Score st Phosphate 00 6-10, X 7 30 MG Oral day, # 50 Tablet tab, 0 [Tylenol Refill(s) with Codeine #3] Lisinopril No Notes: 12-01 (Same as: [facility] 14:00: Prinivil, Zestril) Nexium No 40 mg, 12-01 Route: PO, [place] 14:00: Daily, Dosing Weight 90, kg, Start date: 12/01/17 9:00:00 CDT, Duration: 30 day, Stop date: 12/30/17 9:00:00 CDT Buspar No Notes: 12-01 (Same As: [facility] 14:00: BuSpar) Acetaminoph No Notes: Do M H en 300 MG / 12-01 not exceed No rthea Codeine 13:35: 4gm/day of st Phosphate 00 acetaminop 30 MG Oral hen. Tablet (Same as: [Tylenol Tylenol with with Codeine #3] Codeine # 3) glycopyrrol No Route: IV, ate (ANES) 11-30 Drug form: Nor cristhian 19:32: INJ, ONCE, Stop date: 11/30/17 14:32:00 CDT neostigmine 2018-0 No Route: IV, MH (ANES) 11-30 Drug form: [place] 19:32: INJ, ONCE, st 00 Stop date: 11/30/17 14:32:00 CDT ondansetron 0 No Route: IV, MH (ANES) 11-30 Drug form: [place] 19:32: INJ, ONCE, st 00 Stop date: 11/30/17 14:32:00 CDT ePHEDrine 0 No Route: IV, MH (ANES) 11-30 Drug form: [place] 19:04: INJ, ONCE, st 00 Stop date: 11/30/17 14:04:00 CDT fentaNYL 2017-0 No Route: IV, MH (ANES) 11-30 Drug form: [place] 18:59: INJ, ONCE, st Stop date: 11/30/17 13:59:00 CDT lidocaine 0 No Route: IV, MH (ANES) 11-30 Drug form: [place] 18:59: INJ, ONCE, st Stop date: 11/30/17 13:59:00 CDT morphine 0 No Route: IV, MH Sulfate 11-30 Drug form: [place] (ANES) 18:59: INJ, ONCE, st Stop date: 11/30/17 13:59:00 CDT midazolam 2017-0 No Route: IV, MH (ANES) 11-30 Drug form: [place] 18:59: SOLN, st 00 ONCE, Stop date: 11/30/17 13:59:00 CDT propofol 2017-0 No Route: IV, MH (ANES) 11-30 Drug form: [place] 18:59: INJ, ONCE, st 00 Stop date: 11/30/17 13:59:00 CDT dexamethaso 0 No Route: IV, MH ne (ANES) 11-30 Drug form: [place] 18:59: INJ, ONCE, st Stop date: 11/30/17 13:59:00 CDT rocuronium 2017-0 No Route: IV, M H (ANES) 11-30 Drug form: [place] 18:59: INJ, ONCE, st 00 Stop date: 11/30/17 13:59:00 CDT Lactated 2017-0 No Route: IV, MH Ringers 11-30 Total [place] Injection 17:44: Volume: st IV (ANES) 00 1,000, 1000 mL Start date: 11/30/17 12:44:00 CDT, Stop date: 11/30/17 13:44:00 CDT Ondansetron No Notes: 11-30 (Same as: [facility] 17:36: Zofran) st MEDICATION WASTE Product Size: 4 mg Product Wasted: ___ mg Naloxone No Notes: 11-30 Same as [facility] 17:36: Narcan st Flumazenil No Notes: 11-30 (Same as: [facility] 17:36: Romazicon) st Morphine No Notes: 11-30 (Same [facility] 17:36: as:MORPhin st e Sulfate) Hydromorpho No Notes: ne 11-30 Same as: [facility] 17:36: Dilaudid st Hydralazine No Notes: 11-30 (Same as: [facility] 17:36: Apresoline st 00 ) Push over 5 minutes Metoprolol No Notes: 11-30 (Same as: [facility] 17:36: Lopressor) st 00 Push over 2 [...] CDT, 2.12, m2 Pepcid No Notes: MH - (Same as: [facility] 04:09: Pepcid) st 00 Can be dilute in 5-10cc NS IVP: Slow IV push over at least 2 minutes. Buspar Yes 15 mg, PO, MH 11-30 Daily, 0 [facility] 03:34: Refill(s) st 00 lisinopril No 5 mg = 1 MH 5 mg oral 11-30 tab, PO, [facility] a tablet 03:34: Daily, # st 00 30 tab, 0 Refill(s) Aspirin No Notes: 11-29 Take with [facility] 22:16: food. cefepime No Notes: 11-29 (Same As: [facility] 22:00: Maxipime) st MEDICATION WASTE Product Size: 1000 mg Product Wasted: ___ mg Bentyl No Notes: 11-29 (Same as: [facility] 22:00: Bentyl) Calcium No Notes: Gluconate 11-29 WASTE: F/P [place] 21:06: - Sink; E st - [facility] Tr[facility] Magnesium No Notes: Oxide 11-29 (Same as: [facility] 21:06: Mag-Ox st 00 400) Magnesium oxide [id number] g elemental magnesium Dose=____m g magnesium oxide (___mg elemental magnesium) Magnesium No Notes: Sulfate 11-29 WASTE: F/P [facility] a 21:06: - Sink; E - [facility] Trash Bin Potassium No Notes: Chloride 11-29 Infuse at [facility] a 21:06: a rate of st 00 10 mEq/hr. (Same as: KCL) potassium No Notes: phosphate-s 11-29 [facility]: Phos-NaK) st phosphate 00 Each 1.5 250 mg-280 gm pkt has mg-160 mg 250mg oral powder phosphorou for s. Mix reconstitut w/2.5oz ion water and stir. potassium No Notes: phosphate 11-29 (Same as: [facility] 21:06: K st 00 Phosphate. ) [...] Crush) Hydralazine No Notes: 11-29 (Same as: [place] 21:05: Apresoline st 00 ) Push over 5 minutes Morphine No Notes: 11-29 (Same [place] 21:05: as:MORPhin st 00 e Sulfate) Sodium No 1,000 mL, Chloride 11-29 Rate: 125 [place] a 0.9% IV 21:05: ml/hr, st 1,000 mL 00 Infuse over: 8 hr, Route: IV, Dosing Weight 90.909 kg, Total Volume: 1,000, Start date: 11/29/17 16:05:00 CDT, Duration: 30 day, Stop date: 12/29/17 16:04:00 CDT, 2.13, m2 Ondansetron No Notes: 11-29 (Same as: [place] 21:05: Zofran) st 00 MEDICATION WASTE Product Size: 4 mg Product Wasted: ___ mg Acetaminoph No Notes: Max MH en 11-29 acetaminop [place] 21:05: hen = st 00 4000mg/day (4 gm/day). (Same as: Tylenol) Alprazolam No Notes: 0.25 MG 11-29 With food North Oral Tablet 21:05: or milk st [Xanax] 00 (Same as: Xanax) tramadol No Notes: Not hydrochlori 11-29 to exceed Nor cristhian de 50 MG 21:05: 400mg/day. st Oral Tablet 00 (Same As: Ultram) Gas-X Ultra No Notes: Softgels 11-29 (Same as: [place] a 21:05: Mylicon) st Protonix No Notes: 11-29 Tablet [facility] 21:03: should not st 00 be chewed or crushed. (Same as: Protonix) Flagyl No 500 mg, 11-29 Route: [facility] 18:16: IVPB, st 00 ONCE, Dosing Weight 90.909, kg, Priority: STAT, Start date: 11/29/17 13:16:00 CDT, Stop date: 11/29/17 13:16:00 CDT, ABX Indication : Intra-abdo malena Infection Zofran No 4 mg, 11-29 Route: [facility] 18:00: IVP, Drug st 00 form: INJ, ONCE, Dosing Weight 90.909, kg, Priority: STAT, Start date: 11/29/17 13:00:00 CDT, Stop date: 11/29/17 13:00:00 CDT Morphine No 4 mg, 11-29 Route: [facility] 18:00: IVP, ONCE, st 00 Dosing Weight 90.909, kg, Priority: STAT, Start date: 11/29/17 13:00:00 CDT, Stop date: 11/29/17 13:00:00 CDT Saline No Notes: Flush 0.9% 11-29 (Same as: [facility] 16:07: BD Posiflush) Lexapro No Notes: 11-29 (Same as: [facility] 14:00: Lexapro) st Buspar No Notes: 11-29 (Same As: [facility] 14:00: BuSpar) quetiapine No Notes: 11-28 (Same as: [facility] 22:00: SEROquel) 00 Hydralazine No Notes: Hydrochlori 11-28 (Same as: [place] cristhian de 25 MG 14:25: Apresoline st Oral Tablet ) May interfere w/enteral feedings Take With Food Albuterol No Notes: SEE 0.83 MG/ML 11-28 RT [place] Inhalant 14:23: DOCUMENTAT st Solution 00 ION (Same as: Proventil) Kayexalate No Notes: 11-28 (sodium [place] 14:23: polystyren st 00 e sulfonate 15 gm/60 ml DEE) Shake well before use. (Same as: Kayexalate , SPS) quetiapine No Notes: 11-28 (Same as: [facility] 14:00: SEROquel) Escitalopra No Notes: [facility] 11-28 (Same as: [facility] 14:00: Lexapro) cefepime No Notes: 11-27 (Same As: [facility] 20:00: Maxipime) st 00 MEDICATION WASTE Product Size: [...] st 00 PRN Sleep, 0 Refill(s) Nexium 2017-0 No 40 mg, PO, MH 9-15 Daily, 0 [place] 19:53: Refill(s) st 00 Lisinopril 0 No 5 mg, PO, MH 9-15 Daily, 0 [place] 19:53: Refill(s) st 00 Eliquis 2018-0 No 5 mg, PO, 9-15 BID, 0 [place] 19:53: Refill(s) st 00 Buspar 2017-0 No 15 mg, PO, MH 9-15 Daily, 0 [place] 19:53: Refill(s) st 00 Escitalopra 0 No 20 mg = 1 M H m 20 MG 9-15 tab, PO, [place] Oral Tablet 19:53: Daily, 0 st [Lexapro] 00 Refill(s) Solu-Medrol No 60 mg, 11-27 Route: [place] 19:03: IVP, Drug st 00 form: INJ, [...] CDT Bentyl No Notes: 11-27 (Same as: [facility] 18:00: Bentyl) st Alprazolam No Notes: 0.25 MG 11-27 With food [place] Oral Tablet 17:37: or milk st [Xanax] 00 (Same as: Xanax) Gas-X Ultra No Notes: Softgels 11-27 (Same as: [place] [facility] 17:37: Mylicon) st 00 Docusate No Notes: Sodium 100 11-27 (Same as: [facility] MG Oral 17:37: Colace) st Capsule 00 (Do Not [Colace] Crush) Hydralazine No /=90 MH 11-27 [place] 17:37: st 00 tramadol No [...] CDT Ondansetron No Notes: 11-27 (Same as: [facility] 17:37: Zofran) st 00 MEDICATION WASTE Product Size: 4 mg Product Wasted: ___ mg Acetaminoph No Notes: Max en 11-27 acetaminop [facility] 17:37: hen = st 00 4000mg/day (4 gm/day). (Same as: Tylenol) Protonix No Notes: For 11-27 IV push [facility] 17:35: reconstitu st 00 te with 10 ml 0.9% sodium chloride and push over 2 minutes. (Same as: Protonix) Levaquin No Notes: 11-27 (Same [facility] 17:35: as:Levaqui st 00 n) Flagyl No Notes: 11-27 (Same as: [facility] 17:30: Flagyl) st 00 Avoid alcohol. Cipro No Notes: Do 11-27 not [facility] 17:30: refrigerat st 00 e Morphine No 4 mg, MH 11-27 Route: [facility] 16:33: IVP, ONCE, st 00 Dosing Weight 92.443, kg, Priority: STAT, Start date: 11/27/17 11:33:00 CDT, Stop date: 11/27/17 11:33:00 CDT Visipaque No 100 mL, 320 mg/mL 11-27 Route: [facility] injectable 12:59: IVP, st solution 00 Dosing Weight 92.443, kg, ONCALL, GFR </= 45 mL/min, STAT, Start date: 11/27/17 7:59:00 CDT, Duration: 1 doses or times Zofran No 4 mg, MH 11-27 Route: [facility] 11:21: IVP, Drug st 00 form: INJ, ONCE, Dosing Weight 92.443, kg, Priority: STAT, Start date: 11/27/17 6:21:00 CDT, Stop date: 11/27/17 6:21:00 CDT Morphine 2018-0 No 4 mg, 11-27 Route: [facility] 11:21: IVP, ONCE, st 00 Dosing Weight [...] Trazodone 2017-0 No Notes: 11-27 (Same As: [facility] 05:07: Desyrel) st 00 QUEtiapine 2018-0 Yes [...] 34 before breakfast. busPIRone 2018-0 Yes 15mg [id number] Take 15 mg Fine (BUSPAR) 15 11-17 [id number] by mouth 3 Methodi MG tablet 09:13: [...] 09:13: daily. st mg tablet 34 {42 2018- No 1 tab, PO, MH (rivaroxaba 3-12 [...] Lisinopril Yes James [address] [facility] Nexium Nexium Yes James [address] [facility] Immunizations Ordered Immunization Filled Immunization Date Status Commen ts Source Name Name [facility] FRY 2017-05-26 [facility] 00:00:00 [facility] Vital Signs Vital Name Observation Time Observation Value Comments Source Systolic (mm Hg) 2018-01-04 17:40:00 [facility] [place] Diastolic (mm Hg) 2018-01-04 17:40:00 [facility] Heart Rate 2018-01-04 17:40:00 [facility] Respitory Rate 2018-01-04 17:40:00 [facility] Temperature Oral (F) 2018-01-04 17:09:00 98.7 F [facility] Respitory Rate 2018-01-04 17:09:00 [facility] Heart Rate 2018-01-04 17:09:00 [facility] Systolic (mm Hg) 2018-01-04 17:09:00 [facility] Diastolic (mm Hg) 2018-01-04 17:09:00 [facility] Temperature Oral (F) 2018-01-04 13:03:00 97.8 F [facility] Heart Rate 2018-01-04 13:03:00 [facility] Respitory Rate 2018-01-04 13:03:00 [place] [facility] Systolic (mm Hg) 2018-01-04 13:03:00 [facility] Diastolic (mm Hg) 2018-01-04 13:03:00 [facility] Temperature Oral (F) 2018-01-04 05:00:00 98.5 F [facility] Height 2018-01-01 05:05:00 177.8 cm [facility] BMI Calculated 2018-01-01 05:05:00 [facility] [place] Weight 2018-01-01 05:05:00 [facility] Height 2018-01-01 05:00:00 177.8 cm [facility] Weight 2017-12-31 23:42:00 [facility] [place] [facility] BMI Calculated 2017-12-31 23:42:00 [facility] [place] Height 2017-12-31 23:42:00 180.34 cm [facility] Respitory Rate 2017-12-16 00:20:00 [facility] [place] Heart Rate 2017-12-16 00:20:00 [facility] [place] [facility] Systolic (mm Hg) 2017-12-16 00:20:00 [facility] [place] Diastolic (mm Hg) 2017-12-16 00:20:00 [facility] Temperature Oral (F) 2017-12-16 00:20:00 97.9 F [facility] Respitory Rate 2017-12-15 16:03:00 [facility] [place] Temperature Oral (F) 2017-12-15 16:03:00 98.1 F [facility] Systolic (mm Hg) 2017-12-15 16:03:00 [facility] [place] Diastolic (mm Hg) 2017-12-15 16:03:00 [facility] Heart Rate 2017-12-15 16:03:00 [facility] Temperature Oral (F) 2017-12-15 12:00:00 98.3 F [facility] Respitory Rate 2017-12-15 12:00:00 [facility] [place] Heart Rate 2017-12-15 12:00:00 [facility] Systolic (mm Hg) 2017-12-15 12:00:00 [facility] [place] Diastolic (mm Hg) 2017-12-15 12:00:00 [facility] Height 2017-12-12 20:43:00 177.8 cm [facility] BMI Calculated 2017-12-12 20:43:00 [facility] [place] Weight 2017-12-12 20:43:00 [facility] [place] Temperature Oral (F) 2017-12-01 20:45:00 98.0 F [facility] Respitory Rate 2017-12-01 20:45:00 [facility] [place] Systolic (mm Hg) 2017-12-01 20:45:00 [facility] [place] Diastolic (mm Hg) 2017-12-01 20:45:00 [facility] Heart Rate 2017-12-01 20:45:00 [facility] Temperature Oral (F) 2017-12-01 12:43:00 98.6 F [facility] Heart Rate 2017-12-01 12:43:00 [facility] [place] Respitory Rate 2017-12-01 12:43:00 [facility] [place] Systolic (mm Hg) 2017-12-01 12:43:00 [facility] [place] Diastolic (mm Hg) 2017-12-01 12:43:00 [facility] Respitory Rate 2017-12-01 12:09:00 [facility] [place] Heart Rate 2017-12-01 05:22:00 [facility] [place] Temperature Oral (F) 2017-12-01 05:22:00 98.1 F [facility] Systolic (mm Hg) 2017-12-01 05:22:00 [facility] [place] Diastolic (mm Hg) 2017-12-01 05:22:00 [facility] Weight 2017-11-30 00:42:00 [facility] BMI Calculated 2017-11-30 00:42:00 [facility] [place] Height 2017-11-30 00:42:00 177.8 cm [facility] Weight 2017-11-29 15:32:00 [facility] BMI Calculated 2017-11-29 15:32:00 [facility] [place] Height 2017-11-29 15:32:00 177.8 cm [facility] Temperature Oral (F) 2017-11-29 00:00:00 98.3 F [facility] Heart Rate 2017-11-29 00:00:00 [facility] Respitory Rate 2017-11-29 00:00:00 [facility] [place] Systolic (mm Hg) 2017-11-29 00:00:00 [facility] [place] Diastolic (mm Hg) 2017-11-29 00:00:00 [facility] Systolic (mm Hg) 2017-11-28 16:39:00 [facility] [place] Diastolic (mm Hg) 2017-11-28 16:39:00 [facility] Heart Rate 2017-11-28 16:39:00 [facility] [place] Respitory Rate 2017-11-28 16:39:00 [facility] [place] Temperature Oral (F) 2017-11-28 16:39:00 98.1 F [facility] Respitory Rate 2017-11-28 12:00:00 [facility] [place] Systolic (mm Hg) 2017-11-28 12:00:00 [facility] [place] Diastolic (mm Hg) 2017-11-28 12:00:00 [facility] Heart Rate 2017-11-28 12:00:00 [facility] Temperature Oral (F) 2017-11-28 12:00:00 97.7 F [facility] BMI Calculated 2017-11-27 19:41:00 [place] Height 2017-11-27 19:41:00 177.8 cm [facility] Weight 2017-11-27 19:41:00 [facility] Weight 2017-11-27 19:04:00 [facility] Weight 2017-11-27 06:36:00 [facility] Respitory Rate 2017-05-24 05:51:00 [facility] Systolic (mm Hg) 2017-05-24 05:51:00 [facility] Diastolic (mm Hg) 2017-05-24 05:51:00 [facility] Temperature Oral (F) 2017-05-24 05:51:00 98.8 F [facility] Respitory Rate 2017-05-24 03:30:00 [facility] Temperature Oral (F) 2017-05-24 03:30:00 98.5 F [facility] Systolic (mm Hg) 2017-05-24 03:30:00 [facility] Diastolic (mm Hg) 2017-05-24 03:30:00 [facility] Respitory Rate 2017-05-24 02:43:00 [facility] Systolic (mm Hg) 2017-05-24 02:43:00 [facility] Diastolic (mm Hg) 2017-05-24 02:43:00 [facility] Heart Rate 2017-05-24 01:33:00 [facility] Temperature Oral (F) 2017-05-24 01:33:00 98.2 F [facility] Procedures Procedure Date / Time Performed Performing Clinician Sourc e Cholecystectomy [facility] Plan of Care Planned Activity Planned Date Details Comments Source Future Scheduled 2019-10-14 INFLUENZA VACCINE [place] [facility] 00:00:00 [code = INFLUENZA VACCINE] Future Scheduled 2017-10-28 COLONOSCOPY SCREENING [place] [facility] 00:00:00 [code = COLONOSCOPY SCREENING] Future Scheduled 2017-10-28 SHINGLES VACCINES [place] [facility] 00:00:00 (#1) [code = SHINGLES VACCINES (#1)] Encounters Start End Encounter Admission Attending Care Care Encounter Source Date/Time Date/Time Type Type Clinicians Facility Department ID 2017-12-31 2018-01-04 [facility] [id number] 23:35:00 18:03:[address] Adonay [address] [facility] 2017-12-31 2018-01-04 Outpatient Shabbirmerry [facility] [id number] 18:35:00 13:03:00 Carmen 04 2017-12-12 2017-12-16 [facility] [id number] 20:40:00 00:10:00 Adon[address] [facility] 2017-12-12 2017-12-15 Outpatient Bony [facility] [id number] 15:40:00 19:10:00 Wilbert 03 2017-11-29 2017-12-01 [facility] [id number] 15:19:00 20:54:00 Adon[address] [facility] 2017-11-29 2017-12-01 Outpatient Eric [facility] [id number] 10:19:00 15:54:00 [place] 02 2017-11-27 2017-11-29 [facility] [id number] 06:26:00 01:31:00 Adonay [address] [facility] 2017-11-27 2017-11-28 Outpatient Eric [facility] [id number] 01:26:00 20:31:00 [place] 2017-07-14 2017-07-14 Out[facility] [id number] 16:25:00 16:25:00 [facility] Medicine Outpati ent Clinics 2017-07-07 2017-07-07 [facility] [id number] 09:00:00 09:00:00 [facility] Family Medicine l Medicine Outpati ent Clinics 2017-05-24 2017-05-24 Emergency [facility] [id number] 01:32:00 06:17:00 Adonay 00 [facility] 2017-05-23 2017-05-24 Outpatient Isael [facility] [id number] 20:32:00 01:17:00 Magdalena M 00 Results Test Description Test Time Test [...] = Expiration Dt) 01-13-2020 N Thyroid Stimulating [id number] 08:56:30 Test Item Value Reference Range Interpretation Comments TSH (test code = TSH) 0.430 mIU/mL 0.270-4.200 Lipid [id number] 08:50:19 Test Item Value Reference Range Interpretation Comments Cholesterol Total 140 mg/dL 0-200 RISK OF HE ART (test code = DISEASEPublishe d by Cholesterol Total) [place] [employer] Fatou lyte Optimal Borderl ine [...] is LDL/HDL Ratio=L DL Calc/HDL Chol Hemoglobin [id number] 08:34:46 Test Item Value Reference Range Interpretation Comments Hemoglobin A1c (test code 5.3 % 4.8-5.9 No n Diabetic = Hemoglobin A1c) 4.8-5.9%Di abetic <7.0% IG [id number] 15:05:10 Test Item Value Reference Range Interpretation Comments IG (test code = IG) 0.3 % 0.0-5.0 IG Abs (test code = IG Abs) 0 x10 N Complete Blood Count with [id number] 15:05:09 Test Item Value Reference Range Interpretation [...] code = IPF) 0 % N Automated [id number] 15:05:09 Test Item Value Reference Range Interpretation Comments Neutro Auto (test code = Neutro 47.9 % 36.0-70.0 Auto) Lymph Auto (test code = Lymph Auto) 41.9 % 12.0-44.0 Linn Auto (test code = Linn Auto) 6.3 % 0.0-11.0 Eos, Auto (test code = Eos, Auto) 3.3 % 0.0-7.0 Basophil Auto (test code = Basophil 0.3 % 0.0-2.0 Auto) Neutro Absolute (test code = Neutro 3.6 x10 1.6-7.4 Absolute) Lymph Absolute (test code = Lymph 3.15 x10 .50-4.60 Absolute) Linn Absolute (test code = Linn .47 x10 .00-1.20 Absolute) Eos Absolute (test code = Eos 0.25 x10 0.00-0.74 Absolute) Baso Absolute (test code = Baso 0.02 x10 0.00-0.21 Absolute) Alcohol [id number] 14:06:09 Test Item Value Reference Range Interpretation Comments Ethanol Level (test <0.00 g/dL 0.00-0.01 Intoxica maame 0.080 g/dL code = Ethanol or more Level) Ethanol Inst (test <0 N code = Ethanol Inst) Comprehensive Metabolic [id number] 14:06:08 Test Item Value Reference Range Interpretation [...] A/G 1.8 ratio N Ratio) Comprehensive Metabolic [id number] 14:06:08 Test Item Value Reference Range Interpretation [...] ag e have not been validated by th e MDRD study and should be interpreted wit h caution. eGFR R esult Interpretation: eGFR > or = 60 is in the Normal RangeeGF R < 60 may mean kid sergio diseaseeGFR < 1 5 may mean kidney failure Rang es recommended by the National Kidney Foundation, http://nkdep.ni h.gov Comprehensive Metabolic [id number] 14:06:08 Test Item Value Reference Range Interpretation [...] ag e have not been validated by [facility] MDRD study and should be interpreted wit [...] ag e have not been validated by [facility] MDRD study and should be interpreted wit h caution. eGFR R esult Interpretation: eGFR > or = 60 is in the Normal RangeeGF R < 60 may mean kid sergio diseaseeGFR < 1 5 may mean kidney failure Rang es recommended by the National Kidney Foundation, http://nkdep.ni h.gov Urine Drug [id number] 12:49:29 Test Item Value Reference Range Interpretation [...] if desired . Urinalysis with Culture, if [id number] 12:42:00 Test Item Value Reference Range Interpretation [...] Ind?) rule GL_SJM_UA_MICRO _IN D PT AND [id number] 07:25:00 Test Item Value Reference Interpretation Comments [...] prevention in p rosthetic heart 3.0-5.4 A [place] mortality reduc tion THROMBOPLASTIN TIME 33.2 SECONDS 24-37.7 N THERAPEU TIC RANGE FOR PARTIAL (test code UNFRACTIO NATED HEPARIN = = PTT) 50.5-83.6 SEC T his test is not recommen ded to monitor low molecularweight heparin or danaparoid. Order LMWH test COLLECTION THROUGH LINES THAT HAVE BEEN PREVIOUSLY FLUS HEDWITH HEPARIN SHOULD BE AVOIDED DUE TO POSSIBLE HEPARINCONTAMIN ATION COMPREHENSIVE METABOLIC [id number] 07:22:00 Test Item Value Reference Range Interpretation [...] NORMAL code = LIPINDEX) MG Index/DL URINALYSIS [id number] 02:49:00 Test Item Value Reference Range Interpretation [...] #RBC/HPF 0-3 - CT ABD PELVIS W/O [id number] 20:06:00 Patient Name: MANDY CAZARES Unit No: [id number] EXAMS: CPT CODE: [id number] CT ABD PELVIS W/O CONT 73698 Location: T 18 CT of the abdomen [...] are clear. FLY [place] NAME: MANDY CAZARES [address] [place] [address] PHYS: Paula Vera [place] [id number] : 1965 AGE: 52 SEX: M LOC: B.ERS PHONE #: [phone] EXAM DATE: 07/21/2018 STATUS: REG ER FAX #: [phone] RAD #: D/C DT PAGE 1 Signed Report (CONTINUED) Patient Name: MANDY CAZARES Unit No: [id number] EXAMS: CPT CODE: [id number] CT ABD PELVIS W/O CONT 74836 <Continued> The pelvic contents are unremarkable without [...] (2005) [id number] FLY [place] NAME: MANDY CAZARES [address] [place] [address] PHYS: Paula [place] [address] : 1965 AGE: 52 SEX: M LOC: B.ERS PHONE #: [phone] EXAM DATE: 07/21/2018 STATUS: REG ER FAX #: [phone] RAD #: D/C DT PAGE 2 Signed Report Patient Name: MANDY CAZARES Unit No: [id number] EXAMS: CPT CODE: [id number] CT ABD PELVIS W/O CONT 15238 <Continued> Orig Print D/T: S: 07/21/2018 (2008) LUIS M Denton NAME: MANDY CAZARES [address] [place] [address] Blvd PHYS: Paula Vera LEIF [place], [place] [address] : 1965 AGE: 52 SEX: M LOC: B.ERS PHONE #: [phone] EXAM DATE: 07/21/2018STATUS: REG ER FAX #: [phone] RAD #: D/C DT PAGE 3 Signed Report COMPREHENSIVE METABOLIC [id number] 17:37:00 Test Item Value Reference Range Interpretation [...] 1 NORMAL code = LIPINDEX) MG Index/DL [id number] 17:37:00 Test Item Value Reference Range Interpretation Comments LIPASE (test code = LIP) 121 Unit/L 114-286 N [id number] 17:37:00 Test Item Value Reference Range Interpretation [...] change s in troponin levelscharacter istic of [place]. CBC W/MANUAL [id number] 17:35:00 Test Item Value Reference Range Interpretation [...] 0.00 K/mm3 0.00-0.05 N NRBC#) COMPREHENSIVE METABOLIC [id number] 17:33:00 Test Item Value Reference Range Interpretation [...] 1 NORMAL code = LIPINDEX) MG Index/DL [id number] 17:33:00 Test Item Value Reference Range Interpretation Comments LIPASE (test code = LIP) 121 Unit/L 114-286 N [id number] 17:33:00 Test Item Value Reference Range Interpretation Comments TROPONIN-I (test code = TROPI) NG/ML 0.000-0.045 - CT ABD PELVIS W/O [id number] 15:38:00 Patient Name: MANDY CAZARES Unit No: [id number] EXAMS: CPT CODE: [id number] CT ABD PELVIS W/O CONT 01710 Site ID: [id number] CLINICAL HISTORY: Abdominal pain, [...] CTDI: 10.01 DLP: 596.61 Trnscrpt: 06/23/2018 (1538) [id number] FLY [place] NAME: MANDY CAZARES [address] [place] [address] PHYS: LUIS WaldenMarge [place] [address] : 1965 AGE: 52 SEX: M LOC: B.ERS PHONE #: [phone] EXAM DATE: 06/23/2018 STATUS: REG ER FAX #: [phone] RAD #: D/C DT PAGE 1 Signed Report Patient Name: MANYD CAZARES Unit No: [id number] EXAMS: CPT CODE: [id number] CT ABD PELVIS W/O CONT 41466 <Continued> Orig Print D/T: S: 06/23/2018 (1541) FLY [place] [facility] PHYS: LUIS WaldenMarge GLASER [place] [address] : 1965 AGE: 52 SEX: M LOC: B.ERS PHONE #: [phone] EXAM DATE: 06/23/2018 STATUS: REG ER FAX #: [phone] RAD #: D/C DT PAGE 2 Signed ReportCOMPREHENSIVE METABOLIC [id number] 15:10:00 Test Item Value Reference Range Interpretation [...] 1 NORMAL code = LIPINDEX) MG Index/DL [id number] 15:10:00 Test Item Value Reference Range Interpretation Comments LIPASE (test code = LIP) 134 Unit/L 114-286 N CBC W/AUTO [id number] 14:51:00 Test Item Value Reference Range Interpretation [...] = 0.00 K/mm3 0.00-0.05 N NRBC#) URINALYSIS [id number] 14:14:00 Test Item Value Reference Range Interpretation [...] NONE MUCU) UA RFLX MICR CULT IF [id number] 01:11:00 Test Item Value Reference Range Interpretation [...] for Culture: OtherOther Indication: FLANK PAIN PROTHROMBIN [id number] 01:10:00 Test Item Value Reference Range Interpretation [...] - 3.0 Atrial fibrillation 2.0 - 3.03. Garage Manager al prosthetic valv es (high risk) 2.5 - 3.5 * If oral anticoagulant t herapy is elected to preventrecurren t myocardial infa rction, an INR of 2.5-3 .5 isrecommended, consistent with Food and Drug Administrationr ecommen dations. THROMBOPLASTIN TIME [id number] 01:10:00 Test Item Value Reference Range Interpretation Comments THROMBOPLASTIN TIME 24.5 SECONDS 23.4-37.0 N Therap eutic Range PARTIAL (test code = for Hep janet PTT) EFFECTIVE Heparin IU/mL aPT T Seconds0.3 64.30.7 88.8 CBC W/AUTO [id number] 01:01:00 Test Item Value Reference Range Interpretation [...] 0.0-0.1 N - CT ABD PELVIS W/O [id number] 00:23:00 FAX: Josr Sanchez NP [phone] [place]: St: PRE Name: MANDY CAZARES [facility] : 1965 Age/S: 52/M [address] Unit: [id number] Loc: [place] [address] Phys: Josr Sanchez NP Acct: [id number] Dis Date: Status: PRE ER PHONE #: [phone] Exam Date: 04/20/2018 0005 FAX #: [phone] Reason: BILATERAL FLANK PAIN EXAMS: CPT CODE: [id number] CT ABD PELVIS W/O CONT 70706 EXAM: CT ABDOMEN AND PELVIS WITHOUT CONTRAST. [...] Signed Report (CONTINUED) FAX: Josr Sanchez NP [phone] [place]: St: PRE Name: MANDY CAZARES [facility] : 1965 Age/S: 52/M [address] Unit: [id number] Loc: [place] [address] Phys: Josr Sanchez NP Acct: [id number] Dis Date: Status: PRE ER PHONE #: [phone] Exam Date: 04/20/2018 0005 FAX #:[phone] Reason: BILATERAL FLANK PAIN EXAMS: CPT CODE: [id number] CT ABD PELVIS W/O CONT 54930 <Continued> adjustment of the mA and or kV according to patient size and/or use of iterative reconstruction technique. at 0023 Reported and signed by: Jill Keating MD CC: Josr Sanchez NP Technologist: Yadira Villafana Trnscrd Dt/Tm: 04/20/2018 (0023) 16 Orig Print D/T: S: 04/20/2018 (0026 PAGE 2 Signed Report- CT ABD PELVIS [id number] 14:41:00 Patient Name: MANDY CAZARES Unit No: [id number] EXAMS: CPT CODE: [id number] CT ABD PELVIS W/CONT 36777 Site ID: [id number] CLINICAL HISTORY: Abdominal and [...] CC: Sheron Couch MD Dictated Date/Time: 04/06/2018 (1444) Technologist: Devin Solomon CTDI: 11.97 DLP: 668.50 Trnscrpt: 04/06/2018 (1441) [email or web address] [employer] [place] NAME: MANDY CAZARES [address] [place] [address] PHYS: Sheron Mills MD [place], [place] [address] : 1965 AGE: 52 SEX: M LOC: BCATERINA PHONE #: [phone] EXAM DATE: 04/06/2018 STATUS: REG ER FAX #: [phone] RAD #: D/C DT PAGE 1 Signed Report Patient Name: MANDY CAZARES Unit No: [id number] EXAMS: CPT CODE: [id number] CT ABD PELVIS W/CONT 96034 <Continued> Orig Print D/T: S: 04/06/2018 (1519) [employer] [place] NAME: MANDY CAZARES [address] [place] [address] PHYS: [place] [address] : 1965 AGE: 52 SEX: M LOC: ELVIA PHONE #: [phone] EXAM DATE: 04/06/2018 STATUS: MACIE MARTINEZ FAX #: [phone] RAD #: D/C DT PAGE 2 Signed ReportURINALYSIS [id number] 14:23:00 Test Item Value Reference Range Interpretation [...] = RARE /LPF NONE MUCU) HEPATIC FUNCTION AWWVV5301-33-86 14:06:00 Test Item Value Reference Range Interpretation [...] <50 MG 1 NORMAL = LIPINDEX) Index/DL QEYQSX9546-56-12 14:06:00 Test Item Value Reference Range Interpretation Comments LIPASE (test code = LIP) 271 Unit/L 114-286 N KCUMQCWW-F7713-37-23 14:06:00 Test Item Value Reference Range Interpretation [...] change s in troponin levelscharacter istic of [place]. CBC W/O ZJVB9345-87-15 13:47:00 Test Item Value Reference Range Interpretation [...] 10.0 fL 7.6-10.4 N MPV) CHEMISTRY 7 DAAXTFI3881-40-00 13:39:00 Test Item Value Reference Range Interpretation [...] 56-130 L code = GFRBED) CHEMISTRY 7 HDWEMYR5783-29-40 13:39:00 Test Item Value Reference Range Interpretation [...] code = GFRBED) - XR CHEST 1 [id number] 13:27:00 FAX: Sheron Garcia MD [phone] [place]: E St: PRE Patient Name: MANDY CAZARES Unit No: [id number] EXAMS: CPT CODE: [id number] XR CHEST 1 V 91078 - XR CHEST 1 V INDICATION:Abdominal pain, vomiting, headache LOCATION: T18 Partial inspiration. The lungs are clear. The cardiomediastinal silhouette is within normal limits. Old left rib fractures noted. IMPRESSION: Partial inspiration. No active disease. at 1327 Reported and signed by: Bhavin Valencia D.O. CC: Sheron Couch MD Dictated Date/Time: 04/06/2018 (7690)Technologist: Jcarlos Merlos Transcribed Date/Time: 04/06/2018 (6027) By: Lyle Orig Print D/T: S: 04/06/2018 (3270) [facility] [place] NAME: MANDY CAZARES [address] [place] [address] Bl PHYS: - Sheron [place]ouch [place], [place] [address] : 1965 AGE: 52 SEX: M LOC: B.ERS PHONE #: [phone] EXAM DATE: 04/06/2018 STATUS: PRE ER FAX #: [phone] RAD N O: DC Dt: PAGE 1 Signed Report VGYPWSUDVNTI1863-19-52 09:54:008.5MH TyuzmtafmFFHNILAATFWH0437-39-74 09:54:0042 CllmputrpWELJEGXATYGM9424-76-41 09:54:007.2MH SnkvkdwkrUVJGWGTRHTTG9873-01-98 09:54:001.85MH RclkkqcaoJRONGLQNDYQD2454-69-36 09:54:75669FI [facility] IOWKRPRTXZIN2646-04-33 09:54:003.5MH AcahxwdtdAYRRXNXSDOTV5761-60-10 09:54:71951 KixodupfsYKFFRMUJDVVO0200-74-13 09:54:0032 RebsexsjcEFCEOUPUINZW4936-79-66 09:54:0090 GrsqkirtzCOZFUZPLPQWO7942-73-38 09:54:0035 [facility]HEMATOLOGY 2018-01-04 09:54:0028.7 RmtcjpfxqTYQSWRIMXP9368-57-36 09:54:009.6MH [facility] URINE AND TNBTT5025-02-62 02:28:006MH NortheastURINE AND RMYYG8957-70-83 02:28:001MH NortheastCHEM FAEIU7948-85-70 07:54:56542UJ [facility]CHEM PANEL 2018-01-03 07:54:007.4 [facility]CHEM PJIGQ9932-07-19 07:54:0027MH [facility] CHEM WDTLC3247-18-30 07:54:0029MH [facility]CHEM BTXLY9973-92-52 07:54:0010.4 [facility]CHE[facility] GWPGX1282-04-87 07:54:15854DS [facility]CHEM HHKDW9414-76-82 07:54:70362GD [facility]CHEM IPZCK7615-21-87 07:54:003.4 [facility]CHEM PANEL 2018-01-03 07:54:0059 [facility]CHEM UPPDH2523-22-26 07:54:002.64MH [facility] PPELVHKPEJ8400-91-42 07:54:009.1MH VmhnjmsppFSMHDRSFUK8196-19-77 07:54:0027.0MH NortheastURINE AND HUZEP8893-79-38 22:05:00Yellow *NA*(01/02/18 5:05 PM) NortheastURINE AND RHZZO0182-68-95 22:05:00Clear (01/02/18 5:05 PM) [facility] URINE AND RRZIA4998-14-77 22:05:00 Test Item Value Reference Range Interpretation Comments UA pH (test code = UA pH) 6.0 1 5.0-8.0 NortheastURINE AND HJTJV9525-87-92 22:05:00 Test Item Value Reference Range Interpretation Comments UA Spec Grav (test code = UA Spec 1.006 1 Grav) [facility]URINE AND CGUEZ4156-18-85 22:05:00Large *ABN*(01/02/18 5:05 PM) [facility] AND TNVCV7926-43-80 22:05:00Negative (01/02/18 5:05 PM) [facility]URINE AND WTMPO2217-98-48 22:05:00Negative *NA*(01/02/18 5:05 PM) [facility]UR[facility] AND HPYUE5380-39-90 22:05:0029 [facility]URINE AND STOOL 2018-01-02 22:05:00<1MH NortheastURINE AND RJQVK1185-95-74 22:05:00Negative (01/02/18 5:05 PM)[facility] UTCQ1492-53-34 22:05:0018.3MH [facility] PSGT4573-43-37 22:05:00 Test Item Value Reference Range Interpretation Comments U Prot/Creat (test code = U 0.35 1 Prot/Creat) NortheastURINE KJNE7617-89-48 22:05:0052.10[facility] VDMQ7914-67-19 22:05:0052.10[facility] WDVP5997-24-92 22:05:0043 NortheastANEMIA STUDY 2018-01-02 09:50:93028JJ NortheastANEMIA QRNUO5868-59-62 09:50:0038 [facility] ANEMIA RBBVP8658-38-29 09:50:18870GN[facility] CTEMJ2218-79-54 09:50:0092 NortheastANEMIA FDGYU0564-11-02 09:50:65640AC NortheastANEMIA YOAQL2871-87-20 09:50:0048 NortheastBANNERMIA OFLBA5641-54-56 09:50:002.9 NortheastCARDIAC QSLONZT7419-93-13 09:50:0086 NortheastCHEM RWPAU9815-25-01 09:50:0025 [facility]CHEM TNOYC7584-51-62 09:50:0079 [facility]CHEM UZKRF6432-95-77 09:50:0091 [facility]CHEM LCKHI3938-95-24 09:50:003.6M NortheastCHEM PANEL 2018-01-02 09:50:002.86MH NortheastCHEM QBQTS3532-40-33 09:50:52536HM [facility] CHEM JNALA0267-63-67 09:50:007.7 [facility]CHEM VLHUQ5903-78-31 09:50:0011.6M [facility]CHEM RBJXF4830-54-72 09:50:70369GR [facility]CHEM DPYVR1534-99-66 09:50:0023 SuawubrptMSLWYEMBPR7969-16-10 09:50:44873HV NortheastHEMATOLOGY 2018-01-02 09:50:008.5 OdofarkryKDCCKWWHJX4392-74-72 09:50:0015.7[facility] KNDBRWHLPZ0187-63-72 09:50:0034.3M SsbhcxgcgSUWRBSTCKA5627-90-10 09:50:005.8 WutwjfmhtAXOEPVGHLN3257-78-14 09:50:0027.1M ChytwdaecBQVJBPRFPL3781-54-94 09:50:0087.5[facility] CenterTjckqopmpFKKVDUPTCO3544-42-89 09:50:00 Test Item Value Reference Range Interpretation Comments MCH (test code = MCH) 30.0 pg 27.0-31.0 [facility] CenterQfscegsmrFBBZSJQQGL3605-88-82 09:50:009.3[facility] HospitalFougivmqfTZWBQFODWJ6533-09-38 09:50:003.10[facility] CenterJqtjgajwwTOGLZEMEQZ4148-51-55 09:50:000.47 NortheastDRUG SCREEN 2018-01-01 13:10:00Positive *ABN*(01/01/18 8:10 AM) [facility]DRUG SCREEN 2018-01-01 13:10:00Negative *NA*(01/01/18 8:10 AM)MH NortheastDRUG SCREEN 2018-01-01 13:10:00Negative *NA*(01/01/18 8:10 AM) [facility]DRUG SCREEN 2018-01-01 13:10:00Negative *NA*(01/01/18 8:10 AM) [facility]DRUG SCREEN 2018-01-01 13:10:00Negative *NA*(01/01/18 8:10 AM) [facility]DRUG SCREEN 2018-01-01 13:10:00Negative *NA*(01/01/18 8:10 AM) [facility]DRUG SCREEN 2018-01-01 13:10:00Negative *NA*(01/01/18 8:10 AM) [facility]DRUG SCREEN 2018-01-01 13:10:00See Note (01/01/18 8:10 AM) NortheastSPECIAL CHEMISTRY 2018-01-01 09:35:005.4 NortheastCHEM VBZZA6702-08-29 09:32:005.3M [facility] CHEM TPWCM9847-82-11 09:32:006.2M NortheastCHEM VFJVF6565-37-79 09:32:00 Test Item Value Reference Range Interpretation Comments B/C Ratio (test code = B/C Ratio) 20 1 6-25 NortheastCHEM KQELX9640-65-12 09:32:000.2M [facility]CHEM FVIXO2988-51-97 09:32:0094 [facility]CHEM PAQGP5738-43-94 09:32:0010 [facility]CHEM PANEL 2018-01-01 09:32:0017 [facility]CHEM BQPSJ0181-09-35 09:32:00 Test Item Value Reference Range Interpretation Comments A/G Ratio (test code = A/G Ratio) 1.0 1 0.7-1.6 [facility]CHEM XPCRE9994-05-10 09:32:003.1M [facility]CHEM NWQAV8476-45-89 09:32:003.1M [facility]CHEM BQOGX1911-87-55 04:17:000.4 NortheastCARDIAC EGPIUFT5125-65-79 01:20:33936ZU NortheastURINE AND SZYXN5629-99-61 00:53:00Small *ABN*(12/31/17 7:53 PM) NortheastURINE AND HCXDA0509-17-90 00:53:00Negative *NA*(12/31/17 7:53 PM) [facility]URINE AND XMDBB5663-13-69 00:53:00Negative (12/31/17 7:53 PM) [facility]URINE AND GWBST9407-87-34 00:53:00Negative (12/31/17 7:53 PM) [facility]URINE AND OLXKF0200-22-25 00:53:002 [facility] URINE AND RTBUA6550-95-33 00:53:003MH NortheastURINE AND NXFYW0794-00-41 00:53:00 Test Item Value Reference Range Interpretation Comments UA pH (test code = UA pH) 5.0 1 5.0-8.0 [facility]URINE AND PXITF7918-37-04 00:53:00Yellow *NA*(12/31/17 7:53 PM) NortheastURINE AND KUVTV8318-20-81 00:53:00 Test Item Value Reference Range Interpretation Comments UA Spec Grav (test code = UA Spec 1.010 1 Grav) [facility] YVFKK9583-13-55 00:53:00Clear (12/31/17 7:53 PM)[facility] CenterCARDIAC VWJLYMU6982-56-53 00:48:00<0.02 [facility]CHEM PANEL 2018-01-01 00:48:22413OD NortheastCHEM QZQNJ5207-88-57 00:48:000.3MH [facility] CHEM KRFYD0411-47-26 00:48:37289PC NortheastCHEM ULOST1962-70-78 00:48:003.9 [facility]CHEM DLRJB9575-31-13 00:48:007.9 [facility]CHEM FZQFR8726-07-27 00:48:0015 [facility]CHEM IDDHV2923-68-51 00:48:0021 [facility]CHEM PANEL 2018-01-01 00:48:00 Test Item Value Reference Range Interpretation Comments A/G Ratio (test code = A/G Ratio) 1.0 1 0.7-1.6 NortheastCHEM WVUYX5634-69-13 00:48:004.0 [facility]CHEM PGDKJ0243-78-27 00:48:00 Test Item Value Reference Range Interpretation Comments B/C Ratio (test code = B/C Ratio) 16 1 6-25 VtfuutmryLMYSEBDZMM0069-04-30 00:48:0088.4 IjzauuughHKMDKFIDSP2849-26-81 00:48:00 Test Item Value Reference Range Interpretation Comments MCH (test code = MCH) 29.1 pg 27.0-31.0 ZwywuvzikCFKKDVPBOO3072-86-46 00:48:0032.9[facility] CenterMsissajufGCBAFAPPJP4512-09-75 00:48:0015.7MH ObigrvkjzZKOGFYYMYE3962-52-44 00:48:007.2M NortheastHEMATOLOGY 2018-01-01 00:48:004.16 KdcgchvbeLCBDLDQNQG9938-76-12 00:48:008.6[facility] ZKCYISSOSF7806-12-85 00:48:92366JV TkroiuoywOQMEOTOTSM9344-09-92 00:48:005.8 OvpnpzlabVTTNSBLSVU0745-36-68 00:48:003.0 YpmsscnxrPOFXLIJPPT5225-67-20 00:48:0028.2M IylzdhxzdOVZAKXJJUQ8615-49-06 00:48:0062.4 [facility]HEMATOLOGY 2018-01-01 00:48:000.4 YfaclxcgbFGQONZUCAJ2385-64-02 00:48:000.2[facility] LPOZIAGJDY0307-58-98 00:48:000.6M MwlbvoctvXHQNFJYWFY0982-54-16 00:48:004.5 UeqyyjozxFPPAGJWMKB1225-49-39 00:48:002.0 KvvnrhltqMZNGZMSZFQPZ9078-53-30 09:54:0010.7 QcleecgaqJANZHSVMSNOZ1878-03-03 09:54:0041[facility] OWOMYJGOUHDD5299-02-24 09:54:0023[facility] CenterPwpklrdccPIRUQZKVQYNC0035-26-47 09:54:008.2 TqfylssplBIGZAZHDBKEY4489-69-83 09:54:37866HE ZkkehshwwFADPICVHZQQU7353-38-84 09:54:004.7 TytxlclycNHMXNNUXJYFN3995-65-31 09:54:0043[facility] CenterELECTROLYTES 2017-12-13 09:54:001.88 ZfxaalqqvCIGRREYKLWBZ2444-34-56 09:54:64806IT BapdscdoaKLALUQYXLCDZ5432-13-85 09:54:0084 ObdcsivsqLPYBSBRTYE7596-47-67 09:54:0014.9 RjzqsoqakDTPFQJRWTV5482-83-35 09:54:80959IE [facility]HEMATOLOGY 2017-12-13 09:54:007.2M PrweufmuiVNQFAAHLUP9680-69-38 09:54:0033.7[facility] IMBAQVBTKT8239-16-03 09:54:00 Test Item Value Reference Range Interpretation Comments MCH (test code = MCH) 30.0 pg 27.0-31.0 KvodlcwyiKSIDJTTPHA6910-73-34 09:54:0089.2M NzqarnjbeYEJPVXUFYS7615-91-36 09:54:0032.9 YmyucusitIFGGSEDEND8223-11-19 09:54:003.69[facility] CenterHEMATOLOGY 2017-12-13 09:54:007.4 LlffisgesFLVTAFPETF0710-02-68 09:54:0011.1[facility] KIXRFIXURS8452-80-66 09:54:000.5[facility] CenterQkxgildbrEEKDNVLMOA2099-31-64 09:54:003.1[facility] HospitalQycsgrplmIUUMTNWEQX3795-11-32 09:54:003.4 VwxcwfgjkPRGROHZUZN2150-90-74 09:54:000.3[facility] HospitalVkgodgezvRDXKEFUAXL7157-69-10 09:54:0042.4[facility] CenterHEMATOLOGY 2017-12-13 09:54:0046.4 TynkssqjjAZKDVUSEQR9995-73-84 09:54:006.5[facility] UUXTKRYFOL9339-77-98 09:54:000.5[facility] CenterVouvainlvIJUFKQNOIE0623-81-31 09:54:004.2[facility] HospitalCHEM ALRZJ5982-88-37 01:22:000.5[facility] CenterURINE AND CTWDO4911-84-04 22:31:00Negative (12/12/17 5:31 PM)[facility] CenterUR[facility] AND ZSYGI8651-98-36 22:31:00 Negative (12/12/17 5:31 PM)[facility] AND UVDHX4109-51-28 22:31:00Negative (12/12/17 5:31 PM)[facility] AND GMXVQ0241-41-00 22:31:00Negative *NA*(12/12/17 5:31 PM)[facility] AND TMNNF1026-19-10 22:31:00 Test Item Value Reference Range Interpretation Comments UA pH (test code = UA pH) 6.0 1 5.0-8.0 [facility] AND QMHWN6079-82-29 22:31:00 Test Item Value Reference Range Interpretation Comments UA Spec Grav (test code = UA Spec 1.006 1 Grav) [facility] AND YGCOL5571-15-10 22:31:00Clear (12/12/17 5:31 PM)[facility] CenterCHEM VTHYT6030-49-94 21:59:19514FH NortheastCHEM GWGLJ6890-54-72 21:59:40971ST NortheastCHEM BZTKQ7557-75-59 21:59:0048MH NortheastCHEM PANEL 2017-12-12 21:59:000.2MH NortheastCHEM LNWJW6234-68-53 21:59:16621ZX[facility] CHEM SWDHP7331-06-13 21:59:008.4 [facility]CHEM IAYRW8723-69-12 21:59:007.0 [facility]CHEM ZJSHH3143-11-17 21:59:003.3MH NortheastCHEM FOOFF4749-72-83 21:59:0014 [facility]CHEM YZOJW7860-76-19 21:59:0017 NortheastCHEM PANEL 2017-12-12 21:59:43469KY NortheastCHEM RPTXJ5708-53-66 21:59:26025NV [facility] CHEM SEYUW4214-95-13 21:59:004.7[facility] CenterCHEM UODHF4717-37-03 21:59:0026[facility] CenterCHEM HBWOG8132-24-19 21:59:002.02[facility] CenterCHEM CGTWA1420-35-72 21:59:0037[facility] CenterCHEM DGJIZ8616-99-03 21:59:0010.7[facility] CenterCHEM PANEL 2017-12-12 21:59:003.7[facility] CenterCHEM BMCFS7454-51-10 21:59:00 Test Item Value Reference Range Interpretation Comments B/C Ratio (test code = B/C Ratio) 24 1 6-25 [facility] CenterCHEM MNUNV5058-63-92 21:59:00 Test Item Value Reference Range Interpretation Comments A/G Ratio (test code = A/G Ratio) 0.9 1 0.7-1.6 [facility] CenterWdhbmbbyjXNPLDUAXKZ1295-99-74 21:59:0056.2[facility] HospitalFwbfkpiyiUCZADXVLCM7247-93-10 21:59:005.2[facility] HospitalMxjzsqzvxLKWAVHNNBZ2482-73-07 21:59:0035.2[facility] HospitalHEMATOLOGY 2017-12-12 21:59:004.5[facility] CenterQcrsrjqwdFSIYHABVVL3753-30-37 21:59:000.4[facility] ZPXRGLYIJM9318-42-67 21:59:002.8[facility] CenterVfnbbzqqpRAOAWAHJLR4491-35-65 21:59:000.2[facility] HospitalUnczvujeuSFXPHSVBEV9423-69-73 21:59:003.0[facility] HospitalDrgpuewutLQCWEUBAAI8339-47-03 21:59:000.4[facility] HospitalWproojowmKOAUJRYWUG5772-69-73 21:59:94942QUMount Sinai HospitalATOLOGY 2017-12-12 21:59:007.3MWMCHealthBrkatssqmPUKKCUDNCD9755-45-08 21:59:003.65[facility]2018-09-30 21:59:007.9[facility] HospitalOmluyunwgUNDWVMMQPE0122-66-51 21:59:0011.1[facility] HospitalHskawmubiZMTGMWVHXR9271-31-83 21:59:0034.2MWMCHealthVwgfnqjhrUGMTFOLAVE2824-62-02 21:59:00 Test Item Value Reference Range Interpretation Comments MCH (test code = MCH) 30.5 pg 27.0-31.0 [facility] HospitalZwrkesnmrONASZNMWUL2262-76-66 21:59:0032.5[facility] HospitalPokmhhpnnEMINDPRYRK4437-80-88 21:59:[address] [place], [place] [address]UlutrtogsCEAJJWYZEI0150-38-36 21:59:0014.8[facility] 2017-12-12 21:59:00 Test Item Value Reference Range Interpretation Comments PT (test code = PT) 12.0 s 12.0-14.7 [facility] HospitalSsjzqnudyYHIBBAPVCN5604-57-82 21:59:00 Test Item Value Reference Range Interpretation Comments INR (test code = INR) 0.89 1 0.85-1.17 [facility] HospitalQxeukowpwERDYHVIRFK3544-24-00 21:59:00 Test Item Value Reference Range Interpretation Comments PTT (test code = PTT) 28.5 s 22.9-35.8 [facility]2018-09-19 09:51:001.8[facility]2018-09-19 09:51:0040[facility]2018-09-19 09:51:003.4[facility] 2017-12-01 09:51:00 Test Item Value Reference Range Interpretation Comments A/G Ratio (test code = A/G Ratio) 1.0 1 0.7-1.6 [facility]2018-09-19 09:51:0013.4[facility]2018-09-19 09:51:00 Test Item Value Reference Range Interpretation Comments B/C Ratio (test code = B/C Ratio) 11 1 6-25 [facility]2018-09-19 09:51:57569YK[facility]. [facility]2018-09-19 09:51:000.2M NortheastCHEM VDUHX4757-31-02 09:51:0033MH NortheastCHEM PANEL 2017-12-01 09:51:0034MH NortheastCHEM LKCLA6715-32-88 09:51:003.5 [facility] CHEM KWJWI7834-28-02 09:51:0020 [facility]CHEM WBJTM5333-77-59 09:51:008.2M NortheastCHEM WMEBR5812-39-45 09:51:006.9 [facility]CHE[facility] OXZSK1024-76-50 09:51:004.4 [facility]CHEM RILWE7379-17-04 09:51:72477LI NortheastCHEM PANEL 2017-12-01 09:51:91376LA NortheastCHEM ABZUY3288-41-93 09:51:001.89 [facility] CHEM GJLMC9458-47-54 09:51:0098 [facility]CHEM FFEIL3740-01-76 09:51:0020 JldulgwsxVKSGWPSCNB8257-18-92 09:51:0092.1M WqrgdovheXBCHHMSCOV9758-79-01 09:51:0033.5[facility] CenterWdgprvbhyZEXWPLJKUU4682-92-34 09:51:00 Test Item Value Reference Range Interpretation Comments MCH (test code = MCH) 30.4 pg 27.0-31.0 [facility] CenterCcapzlvztPRGWHEPTHT4405-88-77 09:51:0033.0[facility] CenterDxbguktotSCISOJNYGE9983-24-74 09:51:0011.1[facility] HospitalBwsiyweqwJHBGLCCMDN6712-40-65 09:51:008.0 [facility]HEMATOLOGY 2017-12-01 09:51:60398AJ OnkbskuoqOPAUEMRMYX8103-08-65 09:51:0015.0[facility] ZSJLVRXJDY2872-94-27 09:51:0011.1[facility] HospitalXeryqwcelETWAYOFGKP6331-92-06 09:51:003.64MH NortheastCHEM MFDGT9625-90-24 09:05:003.9 NortheastCHEM YEWRZ8760-44-03 09:05:0040 [facility]CHEM OCYFS6412-41-60 09:05:000.2M NortheastCHEM PANEL 2017-11-30 09:05:0098 [facility]CHEM QWHEE3480-48-16 09:05:57008CK [facility] CHEM HCLAH1047-29-59 09:05:20621PU [facility]CHEM HNXHG2011-08-69 09:05:004.2M NortheastCHEM TPPVX4639-07-67 09:05:001.92 [facility]CHEM VVAVI1641-55-28 09:05:0023 [facility]CHEM XTRAU4645-94-45 09:05:003.3MH NortheastCHEM PANEL 2017-11-30 09:05:006.4MH NortheastCHEM JPWGA9267-85-86 09:05:008.1M [facility] CHEM IMYTI2593-47-91 09:05:0017 [facility]CHEM FSODI5535-89-34 09:05:0019 [facility]CHEM QOGYU6232-58-77 09:05:0025 [facility]CHEM RERLY9764-68-26 09:05:0073 [facility]CHEM VSSBY6324-32-46 09:05:00 Test Item Value Reference Range Interpretation Comments A/G Ratio (test code = A/G Ratio) 1.1 1 0.7-1.6 [facility] CenterCHE[facility] EBPKD3816-25-16 09:05:00 Test Item Value Reference Range Interpretation Comments B/C Ratio (test code = B/C Ratio) 13 1 6-25 [facility] CenterCHE[facility] FXHKN4727-06-06 09:05:0010.2[facility] HospitalCHE[facility] YRUXR0952-22-18 09:05:003.1[facility] HospitalCHEM YMKHT5109-84-37 09:05:001.8 [facility]HEMATOLOGY 2017-11-30 09:05:0031.8 BnhggfcukEQXJVXIPVH9859-41-98 09:05:0090.5[facility] RDRJGIWRBW3400-65-16 09:05:007.8[facility] CenterSbmavrgpdNEOLJBRWVO3772-71-11 09:05:003.51 PunnnfnsiOYQGXHBPWF6800-77-84 09:05:0010.9 HxfqaurpvIYNYDEUSNS3106-16-25 09:05:00 Test Item Value Reference Range Interpretation Comments MCH (test code = MCH) 30.9 pg 27.0-31.0 NwgqhlckkVGGPLRUMFR0382-84-44 09:05:0034.2M EfepejvypYPQVFALCJH4680-54-41 09:05:007.7 HkrxkvnaaZSOXQESRYP9707-88-17 09:05:0014.9 [facility]HEMATOLOGY 2017-11-30 09:05:03704OH JwwtorejzKLBGUQXTWY9881-61-73 09:05:003.7[facility] PXAAWNSBDQ2061-73-82 09:05:003.4[facility] CenterQesolshnkUPSACSGYCI1625-98-72 09:05:000.2[facility] HospitalXcghowtvrGKQPVRSKJP9424-06-41 09:05:000.5[facility] CenterFxybyuvvuQTIBGXMOEY4029-73-43 09:05:000.3[facility]VpksdkujgQNWKKMBFVC4996-76-10 09:05:0043.4[facility] 09:05:0046.7[facility] CenterNgsjnhautKEXPPCLUCK3074-49-64 09:05:006.0[facility] SOUAYJHJWH6094-86-38 09:05:003.7[facility] ANXQBW4080-37-83 17:39:00 Negative *NA*(11/29/17 12:39 PM)[facility] RGYUSV6538-28-84 17:39:00 Negative *NA*(11/29/17 12:39 PM) [facility] WQFOJW9583-59-20 17:39:00 Negative *NA*(11/29/17 12:39 PM) [facility] KLMXNU0534-50-32 17:39:00 Negative *NA*(11/29/17 12:39 PM) [facility] CWPPHU8900-97-22 17:39:00 Negative *NA*(11/29/17 12:39 PM)[facility] KORTRA4170-33-29 17:39:00See Note (11/29/17 12:39 PM) [facility] FNPJSN9591-37-75 17:39:00Negative *NA*(11/29/17 12:39 PM) [facility] LJHWPU7711-55-67 17:39:00Negative *NA*(11/29/17 12:39 PM) [facility] EOCRR0758-93-11 17:39:00Negative (11/29/17 12:39 PM) [facility] FPJVM8179-94-22 17:39:00Negative (11/29/17 12:39 PM) [facility] SNFUG4663-78-59 17:39:00Negative (11/29/17 12:39 PM) [facility] MONIW2682-50-79 17:39:00Negative *NA*(11/29/17 12:39 PM) [facility] QJFXG9712-39-75 17:39:00 Test Item Value Reference Range Interpretation Comments UA pH (test code = UA pH) 6.0 1 5.0-8.0 [facility] LLBZT1014-76-88 17:39:001 [facility] STOOL 2017-11-29 17:39:00<1[facility] MYLJH9632-45-93 17:39:00 Test Item Value Reference Range Interpretation Comments UA Spec Grav (test code = UA Spec 1.002 1 Grav) [facility] BWSDZ5473-70-66 17:39:00Clear (11/29/17 12:39 PM) [facility] KZHLP7839-10-28 17:39:00Colorless *NA*(11/29/17 12:39 PM) [facility] VWFYZDT2029-85-66 16:38:00<0.02 [facility] ENZYMES 2017-11-29 16:38:43371ZX [facility] UWCYD1482-02-88 16:38:00 Test Item Value Reference Range Interpretation Comments B/C Ratio (test code = B/C Ratio) 13 1 6-25 [facility] PJNRV7406-36-18 16:38:003.2MH [facility] NIIUU9003-99-05 16:38:00 Test Item Value Reference Range Interpretation Comments A/G Ratio (test code = A/G Ratio) 1.2 1 0.7-1.6 [facility] CRMZH5871-73-23 16:38:0011.1M [facility] BGWGS5543-54-15 16:38:0031 [facility] RMISD1513-94-42 16:38:007.2[facility] PANEL 2017-11-29 16:38:008.3M [facility] MOJKO7990-37-16 16:38:77662VX [facility] CIJXB8652-66-61 16:38:0023 [facility] QGFFC7828-97-10 16:38:002.34 [facility] RHHCU2856-78-83 16:38:50636OZ [facility] DTNWL9046-95-16 16:38:0031 [facility] MJFUX8438-90-88 16:38:0021 [facility] PANEL 2017-11-29 16:38:000.3MH [facility] NPITD6224-45-93 16:38:47414XI [facility] GURQF4350-18-13 16:38:004.0 [facility] EKZBK1670-32-78 16:38:0021 [facility] JKIBT7936-87-95 16:38:004.1M [facility] KIWAV5807-17-79 16:38:0089 PwsxfwgokVLPRKZSPVU1280-86-16 16:38:00 Test Item Value Reference Range Interpretation Comments MCH (test code = MCH) 30.3 pg 27.0-31.0 MvdqsjalsWALJAGRDXB5629-09-85 16:38:0089.7 QbjjbozerGDGCFAPVUT1312-90-78 16:38:11541QB LhwguxmpsPNWKDUWHSY9802-88-11 16:38:0014.8 [facility] 2017-11-29 16:38:0033.8 GexyjwmslGCOCGPEWCD9876-49-74 16:38:007.6M [facility] RKOHZZBDRG4755-43-11 16:38:0010.2M DykadznzrDPRFPYRTRL7189-79-62 16:38:0011.4 BkwbumimgHWKKJAADSU3979-64-16 16:38:003.77 VfztbezyeEYSTUCDLTW1547-96-54 16:38:0033.8 UqibdvycwSLVWAXMOQZ2371-75-61 16:38:006.1M [facility] 2017-11-29 16:38:000.3M FdkqmepgtWYYZGVBBRA6746-74-92 16:38:000.8[facility] TMDBLJIGUB1694-21-18 16:38:003.0 WedgccctmDTTEPUQSRX3279-87-59 16:38:008.0 MapxdqluoITEUCSWVSL2654-39-50 16:38:000.4 MieingslpAAXTUVWESB3614-69-68 16:38:002.5 TuuuolkwuATPWRYQLBE9753-96-85 16:38:0059.7 [facility] 2017-11-29 16:38:0029.4 [facility] PAYNB8796-35-24 16:07:49209TO [facility] LYZFG1233-25-31 23:58:007.7 [facility] ZLFHU1900-42-23 23:58:004.4 [facility] ENPUL6631-38-46 23:58:0023MH [facility] TZBEQ4182-26-89 23:58:0011.4 [facility] BPOKP5719-96-09 23:58:54488SH [facility] PANEL 2017-11-28 23:58:42321JO [facility] YLEMI6540-84-27 23:58:85679TE [facility] QBNKU1526-92-10 23:58:0032MH [facility] GJOBU6284-86-73 23:58:002.36 [facility] KKYAA6238-84-58 23:58:0031 [facility] AIPSE5120-19-72 09:28:004.1M [facility] ZCCGH8993-53-77 09:28:001.9 [facility]CHEM PANEL 2017-11-28 09:28:0037 [facility]CHEM BLKAU8911-20-41 09:28:08414OB [facility] CHEM JEXYO2884-64-84 09:28:03236PG [facility]M DYFGH6759-12-25 09:28:000.2M [facility]M HITLH6706-61-63 09:28:0017 [facility]M UHAEH2811-41-59 09:28:003.6MH [facility] LMJAS8540-90-44 09:28:0018 [facility]CHEM PANEL 2017-11-28 09:28:006.7 [facility]M NWWRM0380-77-10 09:28:0019 [facility] MTOFR2093-36-15 09:28:008.2M [facility]CHEM PIVIE5913-13-66 09:28:43373BG [facility]M ZUIWI4829-30-06 09:28:005.2M [facility]CHEM DIGME9809-38-68 09:28:36351AJ [facility]M KBBON6278-13-05 09:28:0035 [facility]CHEM PANEL 2017-11-28 09:28:002.03 [facility] LXLHT9779-13-28 09:28:0013.2M [facility] CHEM MABZQ0234-08-70 09:28:00 Test Item Value Reference Range Interpretation Comments A/G Ratio (test code = A/G Ratio) 1.2 1 0.7-1.6 [facility] IEIIQ4465-29-50 09:28:003.1M [facility]M ESEVY7438-50-09 09:28:00 Test Item Value Reference Range Interpretation Comments B/C Ratio (test code = B/C Ratio) 17 1 6-25 XaytfzymqBKNTVRXTJV7260-90-46 09:28:000.3M TxxwltndoKCXJELQYPC3907-27-35 09:28:001.3M CtmmolfzjWTGNFFNMBP7391-86-44 09:28:0080.6M NortheastHEMATOLOGY 2017-11-28 09:28:006.8 CxpqcymwnZEYKJALDMD0284-57-47 09:28:0015.4[facility] XGFRKOSJLQ8641-43-03 09:28:003.7 HqquowiydJGUSZMUUGX3999-26-35 09:28:000.1MH NskxpxnxlMMQRVOLGYE7580-31-58 09:28:000.2M BvadaxxmeWFKINKDFRI9989-97-90 09:28:0034.7 KfpueixtbVNSFHNKSVQ4730-39-35 09:28:0033.4 [facility]HEMATOLOGY 2017-11-28 09:28:003.83 SvrrbxmxzIXHEYKQSAF7289-49-78 09:28:0011.6[facility] DCSQCXDWGN7932-55-50 09:28:49997SQ MnotpqnmjRYAABMENXX6828-59-10 09:28:007.8 ReebfoezoCCXNJGFBDK9562-01-84 09:28:0014.8 XhvxwmponDLRVMBPAMV2169-10-79 09:28:0090.7 RysgpbclxQNESMSMKCK6147-72-55 09:28:00 Test Item Value Reference Range Interpretation Comments MCH (test code = MCH) 30.3 pg 27.0-31.0 KarqxcqczRFTJMIJCMY6968-82-35 09:28:008.4 [facility]URINE AND STOOL 2017-11-27 11:55:00Positive *ABN*(11/27/17 6:55 AM) [facility]URINE AND STOOL 2017-11-27 07:33:00Negative (11/27/17 2:33 AM) [facility]URINE AND STOOL 2017-11-27 07:33:00Negative (11/27/17 2:33 AM) [facility]URINE AND STOOL 2017-11-27 07:33:001 NortheastURINE AND LRMNW3225-57-43 07:33:00<1MH NortheastURINE AND LUHFA4431-23-56 07:33:00Negative (11/27/17 2:33 AM)MH NortheastURINE AND JMHUS2220-26-98 07:33:00 Test Item Value Reference Range Interpretation Comments UA pH (test code = UA pH) 6.0 1 5.0-8.0 [facility] KVKKI2287-34-46 07:33:00Negative *NA*(11/27/17 2:33 AM)[facility] CMRZJ0769-03-62 07:33:00Clear (11/27/17 2:33 AM)[facility] URINE AND BETRJ9812-50-59 07:33:00 Test Item Value Reference Range Interpretation Comments UA Spec Grav (test code = UA Spec 1.004 1 Grav) [facility]M ZZLJQ2296-64-54 06:50:28551VN [facility]CHEM QKANJ1260-67-85 06:50:004.1M [facility]CHEM HGNMX6235-04-88 06:50:007.6MH [facility]CHEM PANEL 2017-11-27 06:50:008.3M [facility]CHEM FDMIC5653-22-68 06:50:0035 [facility] CHEM TXTPU5438-07-77 06:50:02307JH [facility]CHEM UQUQG6577-76-50 06:50:0021 [facility]CHEM YNLCQ0520-24-19 06:50:0018 [facility]CHEM KPJIO4343-12-60 06:50:000.2MH [facility]CHEM DXVBO1752-88-54 06:50:0044 [facility]CHEM PANEL 2017-11-27 06:50:0090 [facility]CHEM WOBIJ8243-69-71 06:50:85794FN [facility] CHEM NSKNP8397-57-29 06:50:002.11 [facility]M WZNZO8362-83-56 06:50:75216WK [facility]CHEM ZZNBS7505-03-69 06:50:004.9 [facility] VQXQL4066-10-14 06:50:0020 [facility]CHEM VZACF2923-13-26 06:50:0014.9 [facility]CHEM PANEL 2017-11-27 06:50:00 Test Item Value Reference Range Interpretation Comments B/C Ratio (test code = B/C Ratio) 21 1 6-25 [facility]CHEM PTHYU6063-04-94 06:50:003.5 [facility]M CZNWQ3839-79-08 06:50:00 Test Item Value Reference Range Interpretation Comments A/G Ratio (test code = A/G Ratio) 1.2 1 0.7-1.6 [facility] CenterFskbiblauWHIUDULKUK7005-88-06 06:50:00 Test Item Value Reference Range Interpretation Comments MCH (test code = MCH) 30.2 pg 27.0-31.0 [facility] CenterAymjeuyfjJBOVKTQGXA2257-43-11 06:50:0033.7 KiwbecavdVXXRWMYNMO8812-19-33 06:50:0036.8[facility] CenterOcyxpombgCYNIHURPKP2901-16-91 06:50:0089.7[facility] CenterHE[facility] 2017-11-27 06:50:0014.9[facility] CenterOwtzltqjgWAFBCFNHGS6229-35-27 06:50:84859PK[facility] UCKHVELCJZ6072-01-64 06:50:007.6[facility] HospitalTedigdxmjVPZZTFGXCY9495-55-91 06:50:0014.9[facility] CenterHozstsjpbCWNMTIHVQN1597-10-25 06:50:004.10[facility] CenterQevwhyptrEYDHCVPAAU9047-11-30 06:50:0012.4[facility] CenterRiylgkxwyCANNEQTZYU2265-14-92 06:50:000.3[facility] 2017-11-27 06:50:009.2[facility] HospitalBtufnilrcIYZTTJFLVF6337-53-94 06:50:004.2[facility] VJGVEVTVJB8613-07-11 06:50:001.1[facility] HospitalCdxyzlsfjEPXGUDVRQY5352-07-85 06:50:000.3[facility] HospitalPhufxuivyUDQOZLUHSN6012-00-02 06:50:0061.6[facility] HospitalEncsuziuzVXELITIWAM2108-24-12 06:50:0028.[address] [place], [place] [address]UemhniuaeMQBVODXYSX3504-77-53 06:50:007.4[facility]HE[facility] 2017-11-27 06:50:002.[address] [place], [place] [address]URINE AND RGHVK9593-34-80 04:57:110-2 (05/23/17 11:57 PM)[facility] EWXOI7374[facility]87-96 04:57:11None Seen (05/23/17 11:57 PM)[facility] CSBND7490-52-42 04:57:11None Seen (05/23/17 11:57 PM)[facility] UBLFM8883-75-23 04:57:11 Negative (05/23/17 11:57 PM)[facility] OHTIR8933-60-22 04:57:11Negative (05/23/17 11:57 PM)[facility] STOOL 2017-05-24 04:57:11<=1.005 *NA*(05/23/17 11:57 PM)[facility] NDYGQ3238-92-74 04:57:11Negative (05/23/17 11:57 PM)[facility] URINE AND KXGWW9061-23-81 04:57:11Clear (05/23/17 11:57 PM)[facility] KYPIN5559-08-07 04:57:11Yellow *NA*(05/23/17 11:57 PM)[facility] GKPQU4140-98-88 04:57:11 Test Item Value Reference Range Interpretation Comments UA pH (test code = UA pH) 6.5 1 5.0-8.0 [facility] VBDHW6167-07-35 04:57:110.2[facility] NUZGZ7485-94-23 04:57:11Negative (05/23/17 11:57 PM)[facility] OMPUR3707-73-63 04:57:11Negative (05/23/17 11:57 PM)[facility] WBIPK5511-43-73 04:57:11Negative *NA*(05/23/17 11:57 PM)[facility] QGCYP5656-94-27 04:57:11Negative *NA*(05/23/17 11:57 PM)[facility] CenterCARDIAC GANFRHH1430-50-27 02:37:00 <0.02[facility] CenterCHEM KKULO1911-57-48 02:37:000.8[facility] CenterCHE[facility] DPSCT7023-42-70 02:37:003.1MP[facility] HospitalCHEM PANEL 2017-05-24 02:37:00 Test Item Value Reference Range Interpretation Comments A/G Ratio (test code = A/G Ratio) 0.9 1 0.7-1.6 [facility] QIELG4964-82-46 02:37:88633RF[facility] CHEM SMNFA7306-45-50 02:37:0021[facility] CenterCHE[facility] XQHBY7896-91-65 02:37:000.[address] [place], [place] [address]CHEM BITHC3122-46-51 02:37:[address] [place], [place] [address]CHEM WQBAM8652-28-43 02:37:002.9[facility]EL 2017-05-24 02:37:0023[facility] CenterCHE[facility] ALBOZ8875-05-89 02:37:006.0[facility]CHE[facility] MHWBV9430-36-12 02:37:000.0[facility] CenterCHE[facility] IHOEU7773-43-41 02:37:0043[facility] CenterCHE[facility] OCCKO5740-74-48 02:37:00 138[facility] CenterCHE[facility] VVFJC0092-73-81 02:37:14155NTShannon Medical CenterCHEM ICAWL7323-75-28 02:37:004.[address] [place], [place] [address]CHEM PANEL 2017-05-24 02:37:001.82[facility] CenterCHE[facility] YOEUV5653-40-52 02:37:[address] [place], [place] [address]CHEM XHZAK5609-29-76 02:37:0023[facility] CenterCHE[facility] KZMCN5674-55-33 02:37:0016[facility] CenterCHE[facility] HLWHK2329-63-47 02:37:0094 [facility] XNAER1449-77-21 02:37:0011.[address] [place] [address] RPQSXQDSZZ6071-67-32 02:37:[address] [place], [place] [address]SeqmnpANBFGXQVUM7500-56-16 02:37:002.8[facility] CenterSjsysuBCLWMPTCSS7441-43-65 02:37:0050.8[facility] CenterNiwzxeDWMDLTGMTH7302-22-78 02:37:[address] [place], [place] [address]HEMATOLOGY 2017-05-24 02:37:000.[address] [place], [place] [address]JsvbkaMOJUILHPPP4540-91-52 02:37:[address] [place], [place] [address]FwvhjyWKNEUVXSSV1158-05-04 02:37:003.5[facility] FPWCFWQXLH3207-64-64 02:37:004.[address] [place], [place] [address]NwbjdoNOIHRKNOBP0883-33-54 02:37:007.0[facility] CenterFzlwzcVVSKCDRRLH3311-83-36 02:37:[address] [place], [place] [address]HkzksmSNNMHUXRWV2780-62-64 02:37:008.5[facility] 2017-05-24 02:37:0026.0[facility] CenterUbzrypUOINKZJJQA2263-88-07 02:37:003.28 [facility]2018-03-12 02:37:009.0[facility] LCJQUCOCOV3121-76-85 02:37:0032.7[facility]2018-03-12 02:37:0079.4[facility]2018-03-12 02:37:00 Test Item Value Reference Range Interpretation Comments MCH (test code = MCH) 26.0 pg 27.0-31.0 [facility]2018-03-12 02:37:007.3[facility] OORJIUZDVQ2093-43-09 02:37:53822HKHCA [facility] NorthwestATOLOGY2018-03-12 02:37:0020.1[facility]12 02:37:00 Test Item Value Reference Range Interpretation Comments INR (test code = INR) 0.89 1 0.85-1.17 [facility]2018-03-12 02:37:00 Test Item Value Reference Range Interpretation Comments PT (test code = PT) 12.0 s 12.0-14.7 [facility]2018-03-12 02:37:00 Test Item Value Reference Range Interpretation Comments PTT (test code = PTT) 24.1 s 22.9-35.8 [facility]
[2019-08-15 03:07] LABS: Absolute Lymphocytes (CBC) 3.6 K/uL (0.7-4.9); Basophils % 0.4 % (0-1.3); Hematocrit 36.7 % (39.6-49.0); Lymphocytes % 39.3 % (15.3-44.8); MPV 8.4 fL (7.6-11.3); RBC Red Blood Cell Count 4.02 M/uL (4.33-5.43)
[2019-08-15 03:24] LABS: Albumin 3.8 g/dL (3.4-5.0); Bilirubin Direct 0.1 mg/dL (0-0.2); Bilirubin Total 0.5 mg/dL (0.2-1.0); Potassium 3.6 mmol/L (3.5-5.1); Protein, Total 6.9 g/dL (6.4-8.2)
[2019-08-15 03:27] LABS: Urine Blood NEGATIVE (NEG); Urine Glucose NEGATIVE (NEG); Urine Protein NEGATIVE (NEG); Urine Specific Gravity 1.015 (1.005-1.030); Urine pH 5.5 (5.0-7.0)
[2019-08-15 03:46] LABS: Urine Bacteria <20 /HPF (NONE SEEN); Urine RBC <5 /HPF (NONE SEEN)
[2019-08-15 03:47] LABS: Urine Culture Reflex Order REFLEXED; Urine Urothelial Cells <5 /HPF (NONE SEEN)
[2019-08-15 03:52] LABS: Barbiturates NEGATIVE (NEGATIVE); Benzodiazepines NEGATIVE (NEGATIVE); Cocaine NEGATIVE (NEGATIVE); METHAMPHETAM NEGATIVE (NEGATIVE); Methadone NEGATIVE (NEGATIVE); Opiates NEGATIVE (NEGATIVE); Phencyclidine NEGATIVE (NEGATIVE); THC Cannibis POSITIVE (NEGATIVE)
--- NOTE | 2019-08-15 04:02 | EDPHYS ---
Physician Documentation [facility] Name: Jeovany Buckley Age: 53 yrs Sex: Male : 1965 Arrival Date: 08/15/2019 Time: 00:08 Bed 17 Private MD: ED Physician Pedro Bettencourt HPI: 08/14 03:58 This 53 yrs old Male presents to ER via Ambulatory with complaints of Back pkl Pain. 03:58 The patient presents with pain that is acute. The symptoms are located in the low back. pkl Onset: The symptoms/episode began/occurred 1 week(s) ago. The pain does not radiate. Associated signs and symptoms: The patient has no apparent associated signs or symptoms. Historical: - Allergies: 01:51 PENICILLINS; lp1 01:51 Sulfa (Sulfonamide Antibiotics); lp1 - Home Meds: 01:51 Seroquel 300 mg Oral tab once daily [Active]; buspirone 15 mg Oral tab daily [Active]; lp1 Lexapro 20 mg Oral tab 1 tab once daily [Active]; lisinopril 5 mg Oral tab 1 tab once daily [Active]; - PMHx: 01:51 Bipolar disorder; DVT; RLE; Paulding's Disease; Hypertension; liver damage; Renal lp1 Disease; - PSHx: 01:51 Cholecystectomy; lp1 - Immunization history:: Adult Immunizations unknown. - Social history:: Smoking status: Patient reports the use of cigarette tobacco products, smokes one-half pack cigarettes per day. ROS: 03:58 Eyes: Negative for injury, pain, redness, and discharge, ENT: Negative for injury, pkl pain, and discharge, Neck: Negative for injury, pain, and swelling, Cardiovascular: Negative for chest pain, palpitations, and edema, Respiratory: Negative for shortness of breath, cough, wheezing, and pleuritic chest pain, Abdomen/GI: Negative for abdominal pain, nausea, vomiting, diarrhea, and constipation. 03:58 Back: Positive for pain at rest. 03:58 : Negative for urinary symptoms. 03:58 MS/extremity: Negative for acute changes. 03:58 Skin: Negative for rash. 03:58 Neuro: Negative for altered mental status. Exam: 03:58 Head/Face: Normocephalic, atraumatic. Eyes: Pupils equal round and reactive to light, pkl extra-ocular motions intact. Lids and lashes normal. Conjunctiva and sclera are non-icteric and not injected. Cornea within normal limits. Periorbital areas with no swelling, redness, or edema. ENT: Nares patent. No nasal discharge, no septal abnormalities noted. Tympanic membranes are normal and external auditory canals are clear. Oropharynx with no redness, swelling, or masses, exudates, or evidence of obstruction, uvula midline. Mucous membranes moist. Neck: Trachea midline, no thyromegaly or masses palpated, and no cervical lymphadenopathy. Supple, full range of motion without nuchal rigidity, or vertebral point tenderness. No Meningismus. Chest/axilla: Normal chest wall appearance and motion. Nontender with no deformity. No lesions are appreciated. Cardiovascular: Regular rate and rhythm with a normal S1 and S2. No gallops, murmurs, or rubs. Normal PMI, no JVD. No pulse deficits. Respiratory: Lungs have equal breath sounds bilaterally, clear to auscultation and percussion. No rales, rhonchi or wheezes noted. No increased work of breathing, no retractions or nasal flaring. Abdomen/GI: Soft, non-tender, with normal bowel sounds. No distension or tympany. No guarding or rebound. No evidence of tenderness throughout. Back: No spinal tenderness. No costovertebral tenderness. Full range of motion. Skin: Warm, dry with normal turgor. Normal color with no rashes, no lesions, and no evidence of cellulitis. MS/ Extremity: Pulses equal, no cyanosis. Neurovascular intact. Full, normal range of motion. Neuro: Awake and alert, GCS 15, oriented to person, place, time, and situation. Cranial nerves II-XII grossly intact. Motor strength 5/5 in all extremities. Sensory grossly intact. Cerebellar exam normal. Normal gait. Vital Signs: 01:48 BP 105 / 85; Pulse 94; Resp 18; Temp 98.8(O); Pulse Ox 98% on R/A; Weight 74.84 kg (R); lp1 Height 5 ft. 10 in. (177.80 cm); Pain 10/10; 04:15 BP 110 / 60; Pulse 90; Resp 18; Temp 98.5(O); Pulse Ox 100% on R/A; mg2 01:48 Body Mass Index 23.67 (74.84 kg, 177.80 cm) lp1 MDM: 02:34 Patient medically screened. pkl 03:58 Data reviewed: vital signs, nurses notes, lab test result(s), radiologic studies, plain pkl films. 08/14 02:41 Order name: Basic Metabolic Panel; Complete Time: 03:46 pkl 08/14 02:41 Order name: CBC with Diff; Complete Time: 03:46 pkl 08/14 02:41 Order name: Hepatic Function; Complete Time: 03:46 pkl 08/14 02:41 Order name: Lipase; Complete Time: 03:46 pkl 08/14 02:50 Order name: Urine Drug Screen; Complete Time: 03:53 ds4 08/14 02:51 Order name: Urine Microscopic Only; Complete Time: 03:53 ds4 08/14 02:41 Order name: IV Saline Lock; Complete Time: 03:02 pkl 08/14 02:41 Order name: Labs collected and sent; Complete Time: 03:02 pkl 08/14 02:41 Order name: XRAY Abdomen Acute Series pkl 08/14 02:52 Order name: Urine Dipstick--Ancillary (enter results); Complete Time: 03:46 ds4 08/14 03:48 Order name: Urine Culture EDMS Administered Medications: 04:14 Drug: Cipro 500 mg Route: PO; mg2 04:15 Follow up: Response: No adverse reaction; Medication administered at discharge. mg2 Disposition: 08/15/19 04:01 Discharged to Home. Impression: Back pain. urinary tract infection. chronic renal disease. - Condition is Stable. - Prescriptions for Cipro 500 mg Oral Tablet - take 1 tablet by ORAL route every 12 hours for 5 days; 10 tablet. - Medication Reconciliation Form, Thank You Letter, Antibiotic Education, Prescription Opioid Use form. - Follow up: Private Physician; When: 2 - 3 days; Reason: Re-evaluation by your physician. - Problem is new. - Symptoms have improved. Signatures: Dispatcher [employer] EDMS Pedro Bettencourt MD MD pkl Erlinda Bishop RN RN lp1 Cosmo Sen RN RN mg2 Corrections: (The following items were deleted from the chart) 04:21 04:01 08/15/2019 04:01 Discharged to Home. Impression: Back pain. urinary tract mg2 infection. chronic renal disease. Condition is Stable. Forms are Medication Reconciliation Form, Thank You Letter, Antibiotic Education, Prescription Opioid Use. Follow up: Private Physician; When: 2 - 3 days; Reason: Re-evaluation by your physician. Problem is new. Symptoms have improved. pkl
--- NOTE | 2019-08-15 04:02 | ER ---
Nurse's Notes [facility] Name: Jeovany Buckley Age: 53 yrs Sex: Male : 1965 Arrival Date: 08/15/2019 Time: 00:08 Bed 17 Private MD: Diagnosis: Back pain. urinary tract infection. chronic renal disease Presentation: 08/14 01:48 Chief complaint: Patient states: Low back pain radiating to mid abdomen, states "this lp1 has been since before "; States unable to recall last BM, states no appetite x 3 days. Coronavirus screen: Proceed with normal triage. Ebola Screen: No symptoms or risks identified at this time. Initial Sepsis Screen: Does the patient meet any 2 criteria? No. Patient's initial sepsis screen is negative. Does the patient have a suspected source of infection? No. Patient's initial sepsis screen is negative. Risk Assessment: Do you want to hurt yourself or someone else? Patient reports no desire to harm self or others. Onset of symptoms was August 15, 2019. 01:48 Method Of Arrival: Ambulatory lp1 01:48 Acuity: JED 3 lp1 Historical: - Allergies: 01:51 PENICILLINS; lp1 01:51 Sulfa (Sulfonamide Antibiotics); lp1 - Home Meds: 01:51 Seroquel 300 mg Oral tab once daily [Active]; buspirone 15 mg Oral tab daily [Active]; lp1 Lexapro 20 mg Oral tab 1 tab once daily [Active]; lisinopril 5 mg Oral tab 1 tab once daily [Active]; - PMHx: 01:51 Bipolar disorder; DVT; RLE; Kaveh's Disease; Hypertension; liver damage; Renal lp1 Disease; - PSHx: 01:51 Cholecystectomy; lp1 - Immunization history:: Adult Immunizations unknown. - Social history:: Smoking status: Patient reports the use of cigarette tobacco products, smokes one-half pack cigarettes per day. Screenin:51 Abuse screen: Denies threats or abuse. Denies injuries from another. Nutritional lp1 screening: No deficits noted. Tuberculosis screening: No symptoms or risk factors identified. 03:05 Fall Risk IV access (20 points). mg2 Assessment: 03:02 General: Appears in no apparent distress. comfortable, Behavior is calm, cooperative. mg2 Pain: Complains of pain in back Pain radiates to abdomen. Neuro: Level of Consciousness is awake, alert, obeys commands, Oriented to person, place, time, situation. Cardiovascular: Capillary refill < 3 seconds Patient's skin is warm and dry. Respiratory: Airway is patent Respiratory effort is even, unlabored, Respiratory pattern is regular, symmetrical. GI: Reports lower abdominal pain. : Reports pain in bilateral flank(s). EENT: No signs and/or symptoms were reported regarding the EENT system. Derm: Skin is intact, is healthy with good turgor, Skin is pink, warm \\T\\ dry. normal. Musculoskeletal: Circulation, motion, and sensation intact. Capillary refill < 3 seconds. Vital Signs: 01:48 BP 105 / 85; Pulse 94; Resp 18; Temp 98.8(O); Pulse Ox 98% on R/A; Weight 74.84 kg (R); lp1 Height 5 ft. 10 in. (177.80 cm); Pain 10/10; 04:15 BP 110 / 60; Pulse 90; Resp 18; Temp 98.5(O); Pulse Ox 100% on R/A; mg2 01:48 Body Mass Index 23.67 (74.84 kg, 177.80 cm) lp1 ED Course: 00:08 Patient arrived in ED. cf2 00:50 [facility]. No response. lp1 01:50 Triage completed. lp1 02:22 Cosmo Sen, JOSSELINE is Primary Nurse. mg2 02:34 Pedro Bettencourt MD is Attending Physician. pkl 02:52 Urine Microscopic Only Sent. ds4 02:52 Urine Drug Screen Sent. ds4 03:05 Patient has correct armband on for positive identification. mg2 03:05 Arm band placed on. mg2 03:05 No provider procedures requiring assistance completed. Inserted saline lock: 20 gauge mg2 in right forearm, using aseptic technique. Blood collected. 03:33 Urine Drug Screen Sent. ds4 03:33 Urine Microscopic Only Sent. ds4 03:38 XRAY Abdomen Acute Series In Process Unspecified. EDMS 04:15 IV discontinued, intact, bleeding controlled, No redness/swelling at site. Pressure mg2 dressing applied. Administered Medications: 04:14 Drug: Cipro 500 mg Route: PO; mg2 04:15 Follow up: Response: No adverse reaction; Medication administered at discharge. mg2 Outcome: 04:01 Discharge ordered by . kassandra 04:15 Discharged to home ambulatory. mg2 04:15 Condition: stable 04:15 Discharge instructions given to patient, Instructed on discharge instructions, follow up and referral plans. medication usage, Demonstrated understanding of instructions, follow-up care, medications, Prescriptions given X 1. 04:21 Patient left the ED. mg2 Addendum: 08/17/2019 13:53 Addendum: Other Pt called the ER c/o Cipro was stolen by unknown person, pt states "I a a5 even had to call the police". Pt states "I just need to take my Cipro and I have no means to go up there to the hospital again so can you please call in the Cipro again for me?", Dr. Robertson was notified of pt's situation and states to call Cipro in to pharmacy of choice. Cipro called in to [facility] pharmacy in [place], [place] per pt's choice. Signatures: Dispatcher [employer] Pedro Streeter MD MD pkl Marisela Hernandez, RN RN aa5 Erlinda Bishop RN RN lp1 [place] Capps ds4 Cosmo Sen RN RN mg2 Bandar Chacko cf2
[2019-08-15] MEDS ORDERED: CIPROFLOXACIN HCL 500 MG TAB ONE (04:14)
[2019-08-15 04:29] VITALS: BP 110/60; TEMP 98.5; O2SAT 100
--- NOTE | 2019-08-15 08:35 | RAD REPORT ---
EXAM DESCRIPTION: RAD - Abdomen Acute Series - 08/15/2019 3:38 am CLINICAL HISTORY: ABD PAIN Back pain, abdominal pain COMPARISON: Chest Single View dated 06/17/2017; Chest Single View dated 06/10/2017; Chest Single View d ated 06/01/2017 FINDINGS: The lungs are grossly clear. The heart is normal in size. No subdiaphragmatic free air see n. No bowel obstruction is evident. Cholecystectomy clips. No pathologic calcification evident. IMPRESSION: No acute finding evident.
== END 2019-08-15 04:21 | disposition home or self-care (01) ==
LOC: ER 00:05
DX: N39.0 Urinary tract infection, site not specified (principal); N18.9 Chronic kidney disease, unspecified; Z88.0 Allergy status to penicillin; Z88.2 Allergy status to sulfonamides; I10 Essential (primary) hypertension; F17.210 Nicotine dependence, cigarettes, uncomplicated
CPT/HCPCS: 36415; 74022; 80048; 80076; 80307; 81003; 81015; 83690; 85025; 87086; 87088; 99284

== ENCOUNTER 2021-03-21 07:09 | Emergency (ER) | payer MEDICARE, OTHER ==
--- OUTSIDE RECORDS SUMMARY | 2021-03-21 07:24 | XMS REPORT | Continuity of Care Document ---
:1965 Author Organization [facility] t Address [facility] [address]on[address] [place] [address] Care Team Providers Name Role Phone Morelia Russell Primary Care Physician Doctor Unassigned, Name Attending Clinician Unavailable JORGE_N Attending Clinician Unavailable Roddy LINDQUIST Attending Clinician Unavailable Roddy Lindquist MD Attending Clinician JORGE_N Admitting Clinician Unavailable Payers Payer Name Policy Type Policy Number Effective Date Expiration Date Roddy perez [facility] [id number] 2020 (MEDICARE 00:00:00 REPLACEMENT HMO) Problems Condition Condition Condition Status Onset Resolution Last Treating Co mments Source Name Details Category Date Date Treatment Clinician Date Abdominal Abdominal Disease Active Uni vers pain pain 18 ity of 00:00: [place] 00 Medical Branch Allergies, Adverse Reactions, Alerts Allergy Allergy Status Severity Reaction(s) Onset Inactive Treating Comm ents Source Name Type Date Date Clinician Penicill Propensi Active Hives Univer s in ty to 8 ity of adverse 00:00: [place] reaction 00 Medical s Branch Sulfa Propensi Active Other - See hypervent Univers (Sulfona ty to comments 10-29 ilate ity of mide adverse 00:00: [place] Antibiot reaction 00 Medica l ics) s Branch PENICILL DRUG Active Hives Univers IN INGREDI 10-29 ity of 00:00: [place] 00 Medical Branch SULFA Drug Active Other-Cmnt Univer s (SULFONA Class - ity of MIDE 00:00: [place] ANTIBIOT 00 Medical ICS) Branch Penicill DA Active [facility] [place] [facility] Sulfa DA Active U 2018-0 [facility] (Sulfona 5-09 [place] mide 00:00: [facility] Antibiot 00 l ics) [facility] Penicill DA Active U 2018-0 [facility] ins 4[facility]11 [place] [facility] Sulfa DA Active U 2019-0 [facility] (Sulfona 4-11 [place] mide 00:00: [facility] Antibiot 00 l ics) [facility] Penicill DA Active U 2017-0 [facility] ins 8-10 [place] [facility] Sulfa DA Active U 2018-0 [facility] (Sulfona 8-10 [place] mide 00:00: [facility] Antibiot 00 l ics) [facility] Social History Social Habit Start Date Stop Date Quantity Comments Source History SDOH University o f Alcohol Std Drinks [place] [facility] History SDOH University o f Alcohol Binge [place] [facility] Branch History SDOH University o f Alcohol Comment [place] Med ical Branch Exposure to Unable to assess Univers ity of SARS-CoV-2 (event) [facility] Branch Alcohol intake 2021-02-28 2021-02-28 Lifetime University of 00:00:00 00:00:00 non-drinker [facility] (finding) Branch History SDOH 2018-10-30 2018-10-30 5 University o f Financial 00:00:00 00:00:00 [facility] Branch History [facility] Food 2018-10-30 2018-10-30 1 Univers ity of Worry 00:00:00 00:00:00 [facility] Branch History [facility] Food 2018-10-30 2018-10-30 1 Univers ity of Scarcity 00:00:00 00:00:00 [place] [facility] History [facility] 2018-10-30 2018-10-30 1 University o f Transport Med 00:00:00 00:00:00 [facility] al Branch History [facility] 2018-10-30 2018-10-30 1 University o f Transport Non-Med 00:00:00 00:00:00 [facility] Education 2018-10-30 2018-10-30 17 University of 00:00:00 00:00:00 [facility] Cigarettes smoked 2018-10-30 2018-10-30 Univers ity of current (pack per 00:00:00 00:00:00 [facility]) - Reported Branch Cigarette 2018-10-30 2018-10-30 University of pack-years 00:00:00 00:00:00 [facility] Tobacco use and 2018-10-30 2018-10-30 Former user Universi ty of exposure 00:00:00 00:00:00 [facility] 2018-10-30 2018-10-30 1 University o f Alcohol Frequency 00:00:00 00:00:00 [facility] Sex Ass[birth year] At [birth year] Universit y of 00:00:00 00:00:00 [facility] Smoking Status Start Date Stop Date Source Current every day smoker 2018-10-30 00:00:00 Uni versity of [facility] Medications Ordered Filled Start Stop Current Ordering Indication Dosage Frequency Signature Comments Components Source Medication Medication Date Date Medication? Clinician (SIG) Name Name iopamidol 2020-03- No [id number] 120mL 120 mL, Univers (ISOVUE 05-01 Intravenou ity o f 370-500 mL) 16:00: 14:50 s, ONCE, 1 [place] injection 00 :00 dose, On Medica l 120 mL Fri Branch 02/28/21 at 1000, Routine ondansetron 2020-03- No 4mg 4 mg, Slow Univers (ZOFRAN 2-17 12-17 IV Push, ity of (PF)) 15:30: 14:39 ONCE, 1 [place] injection 4 00 :00 dose, On Medi rishi mg Fri Branch 02/28/21 at 0930, AMINTA morpHINE 2020-03 4mg 4 mg, Slow Un maria eugenia injection 4 -17 12-17 IV Push, ity of mg 15:30: 14:39 ONCE, 1 [place] 00 :00 dose, On Medical Fri Branch 02/28/21 at 0930, STAT NaCl 0.9% 2020-03 No 1000mL at 999 Uni vers (NS) bolus 2- 12-17 mL/hr, ity of infusion 15:00: 16:39 1,000 mL, Jair as 1,000 mL 00 :00 IV Medical Infusion, Branch ONCE, 1 dose, On 02/28/21 at 0900, STAT lactulose 2020-03 Yes [id number] 30mL Take 30 mL Univers 10 gram/15 2-17 by mouth 3 ity of mL oral 00:00: (three) [place] solution 00 times Medical daily as Branch needed for Constipati on or For bowel movement. dicyclomine 2020-03 Yes [id number] 20mg Take 1 Univers 20 mg 2-17 tablet by ity of tablet 00:00: mouth [place] 00 every 6 Medical (six) Branch hours as needed for Abdominal pain. ondansetron 2020-03 Yes [id number] 4mg Take 1 Univers (ZOFRAN) 4 2-17 tablet by ity of mg tablet 00:00: mouth [place] 00 every 8 Medical (eight) Branch hours as needed for Nausea and Vomiting (N/V). lactulose 2020-03 Yes [id number] 30mL Take 30 mL Univers 10 gram/15 2-17 by mouth 3 ity of mL oral 00:00: (three) [place] solution 00 times Medical daily as Branch needed for Constipati on or For bowel movement. dicyclomine 2020-03 Yes [id number] 20mg Take 1 Univers 20 mg 2-17 tablet by ity of tablet 00:00: mouth [place] 00 every 6 Medical (six) Branch hours as needed for Abdominal pain. ondansetron 2020-03 Yes [id number] 4mg Take 1 Univers (ZOFRAN) 4 2-17 tablet by ity of mg tablet 00:00: mouth [place] 00 every 8 Medical (eight) Branch hours as needed for Nausea and Vomiting (N/V). busPIRone 5 Yes 15mg Take 15 mg Univers mg tablet 8-21 by mouth ity of 14:47: every [place] 41 evening. Medical Branch QUEtiapine Yes 200mg Take 200 Un maria eugenia (SEROQUEL) 8-21 mg by ity of 200 mg 14:47: mouth [place] tablet 41 every Medical morning. Branch QUEtiapine Yes 400mg Take 400 Un maria eugenia (SEROQUEL) 8-21 mg by ity of 400 mg 14:47: mouth [place] tablet 41 every Medical evening. Branch lisinopril Yes 5mg Take 5 mg Un maria eugenia 5 mg tablet 8-21 by mouth ity of 14:47: daily. Medical Branch traZODone Yes 100mg Take 100 Uni vers 100 mg 8-21 mg by ity of tablet 14:47: mouth at [place] 41 bedtime. Medical Branch escitalopra Yes 20mg Take 20 mg Univers m oxalate 8-21 by mouth ity of (LEXAPRO) 14:47: at [place] 20 mg 41 bedtime. Medical tablet Branch busPIRone 5 Yes 15mg Take 15 mg Univers mg tablet 8-21 by mouth ity of 14:47: every [place] 41 evening. Medical Branch QUEtiapine Yes 200mg Take 200 Un maria eugenia (SEROQUEL) 8-21 mg by ity of 200 mg 14:47: mouth [place] tablet 41 every Medical morning. Branch QUEtiapine Yes 400mg Take 400 Un maria eug[place] (SEROQUEL) 8-21 mg by ity of 400 mg 14:47: mouth [place] tablet 41 every Medical evening. Branch lisinopril Yes 5mg Take 5 mg Un maria eugenia 5 mg tablet 8-21 by mouth ity of 14:47: daily. [place] [address] Medical Branch traZODone 0 Yes 100mg Take 100 Uni vers 100 mg 8-21 mg by ity of tablet 14:47: mouth at [place] 41 bedtime. Medical Branch escitalopra Yes 20mg Take 20 mg Univers m oxalate 8-21 by mouth ity of (LEXAPRO) 14:47: at [place] 20 mg 41 bedtime. Medical tablet Branch busPIRone 5 2018- Yes 15mg Take 15 mg Univers mg tablet 8-21 by mouth ity of 14:47: every [place] [address] evening. Medical Branch QUEtiapine 0 Yes 200mg Take 200 Un maria eugenia (SEROQUEL) 8-21 mg by ity of 200 mg 14:47: mouth [place] tablet 41 every Medical morning. Branch QUEtiapine 0 Yes 400mg Take 400 Un maria eug[place] (SEROQUEL) 8-21 mg by ity of 400 mg 14:47: mouth [place] tablet 41 every Medical evening. Branch lisinopril Yes 5mg Take 5 mg Un maria eug[place] 5 mg tablet 8-21 by mouth ity of 14:47: daily. [place] [address] Medical Branch traZODone 0 Yes 100mg Take 100 Uni vers 100 mg 8-21 mg by ity of tablet 14:47: mouth at [place] [address] bedtime. Medical Branch escitalopra Yes 20mg Take 20 mg Univers m oxalate 8-21 by mouth ity of (LEXAPRO) 14:47: at [place] 20 mg 41 bedtime. Medical tablet Branch Lisinopril Lisinopril Yes James [address] [facility] Nexium Nexium Yes James [address] [facility] Vital Signs Vital Name Observation Time Observation Value Comments Source Systolic blood 2021-02-28 16:00:00 127 mm[Hg] Univer sity of pressure [facility] Diastolic blood 2021-02-28 16:00:00 85 mm[Hg] [facility] rate 2021-02-28 16:00:00 89 /min [facility] Respiratory rate 2021-02-28 16:00:00 26 /min [facility] Oxygen saturation in 2021-02-28 16:00:00 99 /min [facility] Arterial blood by [facility] Pulse oximetry Branch Body temperature 2021-02-28 13:47:00 36.72 Katie [facility] Body weight 2021-02-28 13:47:00 83.915 kg [facility] BMI 2021-02-28 13:47:00 26.54 kg/m2 [facility] Procedures Procedure Date / Time Performing Clinician Source Performed PATIENT QUESTIONNAIRE 2021-03-18 06:01:00 Doctor Unassigned, No [facility] CT ABDOMEN PELVIS W 2021-02-28 14:55:12 Carlos Lindquist [facility] CONTRAST [facility] Branch LIPASE 2021-02-28 13:57:00 Carlos Lindquist [facility] COMP. METABOLIC PANEL 2021-02-28 13:57:00 Carlos Lindquist [facility] ([id number]) [facility] CBC WITH DIFF 2021-02-28 13:57:00 Carlos Lindquist [facility] URINALYSIS 2021-02-28 13:57:00 Carlos Lindquist [facility] NOTICE OF PRIVACY 2021-02-28 13:42:58 Doctor Unassigned, No [facility] PRACTICES [facility] CONSENT/REFUSAL FOR 2021-02-28 13:42:00 Doctor Unassigned, No [facility] DIAGNOSIS AND TREATMENT [facility] Encounters Start End Encounter Admission Attending Care Care Encounter Source Date/Time Date/Time Type Type Clinicians Facility Department ID 2021-03-18 2021-03-18 Orders Doctor ZURITA [id number] Univers 00:00:00 00:00:00 Only Unassigned, CHERRI [id number] ity of [facility] 4.2.7.2.686 Jair as [id number] [address] 2021-03-06 2021-03-06 Outpatient [facility] DM [id number] [facility] 08:00:00 08:00:00 _N 1223 Medica l Group 2021-03-03 2021-03-03 ambulatory [facility]ML[facility] [id number] [facility] 2021-02-28 2021-02-28 Emergency X KAREN LINDQUIST ERT [id number] Univers 07:50:00 10:42:00 CARLOS [facility] 2021-02-28 2021-02-28 Emergency Yabeka [facility] [id number] Univers 07:50:00 10:42:00 Carlos CHUNG 350.1.13.10 ity [facility] 4.2.7.2.686 [facility] [id number] [facility] 084 Branch 2021-02-28 2021-02-28 Orders Doctor PARMINDER [id number] Univers 00:00:00 00:00:00 Only Unassigned, CHERRI [id number] [facility] 4.2.7.2.686 Jair [id number] [facility] 009 Branch 2021-01-07 2021-01-07 ambulatory [facility]MLC [facility] [id number] [facility] 2020-09-23 2020-09-23 Outpatient [facility]MLC [facility] [id number] [facility] 2020-08-08 2020-08-[address] [facility] [id number] [facility] 03:21:00 03:21:00 _N 0527 Medica l Group 2017-07-14 2017-07-14 Outpatient Ese Barnard [id number] 16:25:00 16:25:00 [facility] 2017-07-07 2017-07-07 Outpatient Ese Mulligant [id number] 09:00:00 09:00:00 [facility] Results Test Description Test Time Test Comments Results Result Comments Source Complete Metabolic Panel 2021-02-28 14:22:22 Test Item Value Reference Range Interpretation Comme nts NA (test code = 5477572838) 134 mmol/L 135-145 L K (test code = 0171467837) 4.1 mmol/L 3.5-5.0 CL (test code = 7217434449) 106 mmol/L 98-108 CO2 TOTAL (test code = 2788061223) 22 mmol/L 23-31 L AGAP (test code = 4277468847) 2-16 BUN (test code = 8699413425) 25 mg/dL 7-23 H GLUCOSE (test code = 5233309350) 116 mg/dL 70-110 H CREATININE (test code = 2.31 mg/dL 0.60-1.25 H 9784887281) TOTAL BILI (test code = 0.3 mg/dL 0.1-1.9 6725278697) CALCIUM (test code = 8704189291) 9.3 mg/dL 8.6-10.6 T PROTEIN (test code = 1365931148) 6.6 g/dL 6.3-8.2 ALBUMIN (test code = 7198803820) 4.1 g/dL 3.5-5.0 ALK PHOS (test code = 2999033039) 78 U/L 34-122 ALTv (test code = 1742-6) 22 U/L 5-50 AST(SGOT) (test code = 9604223269) 27 U/L 13-40 eGFR (test code = 1236953725) mL/min/1.73m2 ALFIE (test code = ALFIE) Association of Glomerular Filtration Rate (GFR) and Staging of Kidney Disease* + +-------- + ------+| GFR (mL/min/1.73 m2) ?| With Kidney Damage ?| ?Without Kidney Damage+ +-- + +| ?>90 ?| ?Stage one ?| ? Normal ?+ +------- + -------+| ?60-89 ?| ?Stage two ?| ? Decreased GFR ? + +-------- + ------+| ?30-59 ?| ?Stage three ?| ? Stage three ? + +-------- + ------+| ?15-29 ?| ?Stage four ? | ? Stage four ?+ +------- + -------+| ?<15 (or dialysis) ? ?| ?Stage five ? | ? Stage five ?+ +------- + -------+ *Each stage assumes the associated GFR level has been in effect for at least three months. ?Stages 1 to 5, with or without kidney disease, indicate chronic kidney disease. Notes: Determination of stages one and two (with eGFR >59mL/min/1.73 m2) requires estimation of kidney damage for at least three months as defined by structural or functional abnormalities of the kidney, manifested by either:Pathological abnormalities or Markers of kidney damage (including abnormalities in the composition of the blood or urine or abnormalities in imaging tests). Lab Interpretation (test code = Abnormal 10693-4) [facility] [id number] 14:22:02 Test Item Value Reference Range Interpretation Comments LIPASE (test code = 7015581429) 244 U/L 0-220 H Lab Interpretation (test code = Abnormal 70597-2) [facility] with [id number] 14:06:24 Test Item Value Reference Range Interpretation Comments WBC (test code = See_Comment [Automated 6690-2) message] The sy stem which generated this result transmitted reference range : 4.20 - 10.70 10*3/?L. The reference range was not used to interpret this result as normal/abnormal . RBC (test code = See_Comment L [Automated 789-8) message] The sy stem which generated this result transmitted reference range : 4.26 - 5.52 10*6/?L. The reference range was not used to interpret this result as normal/abnormal . HGB (test code = 10.0 g/dL 12.2-16.4 L 718-7) HCT (test code = 31.1 % 38.4-49.3 L 4544-3) MCV (test code = 98.4 fL 81.7-95.6 H 787-2) MCH (test code = 31.6 pg 26.1-32.7 785-6) MCHC (test code = 32.2 g/dL 31.2-35.0 786-4) RDW-SD (test code = 51.8 fL 38.5-51.6 H 14681-5) RDW-CV (test code = 14.3 % 12.1-15.4 788-0) PLT (test code = See_Comment [Automated 777-3) message] The sy stem which generated this result transmitted reference range : 150 - 328 10*3/ ?L. The reference r ashley was not used to interpret this result as normal/abnormal . MPV (test code = 9.4 fL 9.8-13.0 L 95639-0) NRBC/100 WBC (test See_Comment [Automat ed code = 2609182158) message] The system which generated this result transmitted reference range : 0.0 - 10.0 /100 WBCs. The refer ence range was not u sed to interpret th is result as normal/abnormal . NRBC x10^3 (test code <0.01 See_Comment [Auto mated = 1469662329) message] The s ystem which generated this result transmitted reference range : 10*3/?L. The reference range was not used to interpret this result as normal/abnormal . GRAN MAT (NEUT) % 64.4 % (test code = 770-8) IMM GRAN % (test code 0.50 % = 3681231081) LYMPH % (test code = 26.5 % 736-9) MONO % (test code = 5.9 % 5905-5) EOS % (test code = 2.5 % 713-8) BASO % (test code = 0.2 % 706-2) GRAN MAT x10^3(ANC) 5.71 10*3/uL 1.99-6.95 (test code = 9889645560) IMM GRAN x10^3 (test 0.04 10*3/uL 0.00-0.06 code = 7103580986) LYMPH x10^3 (test code 2.35 10*3/uL 1.09-3.23 = 731-0) MONO x10^3 (test code 0.52 10*3/uL 0.36-1.02 = 742-7) EOS x10^3 (test code = 0.22 10*3/uL 0.06-0.53 711-2) BASO x10^3 (test code <0.03 0.01-0.09 = 704-7) Lab Interpretation Abnormal (test code = 30430-2) [facility] Dhuzggqtuny8288-60-37 12:58:17 Test Item Value Reference Range Interpretation Comments RPR Qual (test code = RPR Qual) Non-Reactive Non-Reactive Reactive Control (test code = Reactive Reactive Control) Weak Reactive Control (test Weak Reactive code = Weak Reactive Control) Non-Reactive Control (test code Non-Reactive = Non-Reactive Control) Lot # (test code = Lot #) [id number] N Expiration Dt (test code = 01-13-2020 N Expiration Dt) Thyroid Stimulating Xnoyzbp5494-47-63 08:56:30 Test Item Value Reference Range Interpretation Comments TSH (test code = TSH) 0.430 mIU/mL 0.270-4.200 Lipid Rphuk2480-56-01 08:50:19 Test Item Value Reference Range Interpretation Comments Cholesterol Total 140 mg/dL 0-200 RISK OF HE ART (test code = DISEASEPublishe d by Cholesterol Total) [employer] Fatou lyte Optimal Borderl ine [...] is LDL/HDL Ratio=L DL Calc/HDL Chol Hemoglobin [id number] 08:34:46 Test Item Value Reference Range Interpretation Comments Hemoglobin A1c (test code 5.3 % 4.8-5.9 No n Diabetic = Hemoglobin A1c) 4.8-5.9%Di abetic <7.0% IG Cjsed6833-08-31 15:05:10 Test Item Value Reference Range Interpretation Comments IG (test code = IG) 0.3 % 0.0-5.0 IG Abs (test code = IG Abs) 0 x10 N Complete Blood Count with [id number] 15:05:09 Test Item Value Reference Range Interpretation [...] code = IPF) 0 % N Automated Nitvyrxbwafv4311-39-25 15:05:09 Test Item Value Reference Range Interpretation Comments Neutro Auto (test code = Neutro 47.9 % 36.0-70.0 Auto) Lymph Auto (test code = Lymph Auto) 41.9 % 12.0-44.0 [place] Auto (test code = [place] Auto) 6.3 % 0.0-11.0 Eos, Auto (test code = Eos, Auto) 3.3 % 0.0-7.0 Basophil Auto (test code = Basophil 0.3 % 0.0-2.0 Auto) Neutro Absolute (test code = Neutro 3.6 x10 1.6-7.4 Absolute) Lymph Absolute (test code = Lymph 3.15 x10 .50-4.60 Absolute) [place] Absolute (test code = [place] .47 x10 .00-1.20 Absolute) Eos Absolute (test code = Eos 0.25 x10 0.00-0.74 Absolute) Baso Absolute (test code = Baso 0.02 x10 0.00-0.21 Absolute) Alcohol [id number] 14:06:09 Test Item Value Reference Range Interpretation Comments Ethanol Level (test <0.00 g/dL 0.00-0.01 Intoxica maame 0.080 g/dL code = Ethanol or more Level) Ethanol Inst (test <0 N code = Ethanol Inst) Comprehensive Metabolic [id number] 14:06:08 Test Item Value Reference Range Interpretation [...] A/G 1.8 ratio N Ratio) Comprehensive Metabolic [id number] 14:06:08 Test Item Value Reference Range Interpretation [...] National Kidney Foundation, http://nkdep.ni h.gov Comprehensive Metabolic Npewl1346-31-68 14:06:08 Test Item Value Reference Range Interpretation [...] ag e have not been validated by [facility] MDRD study and should be interpreted wit [...] ag e have not been validated by [facility] MDRD study and should be interpreted wit h caution. eGFR R esult Interpretation: eGFR > or = 60 is in the Normal RangeeGF R < 60 may mean kid sergio diseaseeGFR < 1 5 may mean kidney failure Rang es recommended by the National Kidney Foundation, http://nkdep.ni h.gov Urine Drug Rlhrbb1071-62-05 12:49:29 Test Item Value Reference Range Interpretation [...] if desired . Urinalysis with Culture, if [id number] 12:42:00 Test Item Value Reference Range Interpretation [...] Ind?) rule GL_SJM_UA_MICRO _IN D PT AND [id number] 07:25:00 Test Item Value Reference Interpretation Comments [...] prevention in p rosthetic heart 3.0-5.4 A NM mortality reduc tion THROMBOPLASTIN TIME 33.2 SECONDS 24-37.7 N THERAPEU TIC RANGE FOR PARTIAL (test code UNFRACTIO NATED HEPARIN = = PTT) 50.5-83.6 SEC T his test is not recommen ded to monitor low molecularweight heparin or danaparoid. Order LMWH test COLLECTION THROUGH LINES THAT HAVE BEEN PREVIOUSLY FLUS HEDWITH HEPARIN SHOULD BE AVOIDED DUE TO POSSIBLE HEPARINCONTAMIN ATION COMPREHENSIVE METABOLIC [id number] 07:22:00 Test Item Value Reference Range Interpretation [...] NORMAL code = LIPINDEX) MG Index/DL URINALYSIS [id number] 02:49:00 Test Item Value Reference Range Interpretation [...] #RBC/HPF 0-3 - CT ABD PELVIS W/O [id number] 20:06:00 Patient Name: MANDY CAZARES Unit No: [id number] EXAMS: CPT CODE: [id number] CT ABD PELVIS W/O CONT 23929 Location: T 18 CT of the abdomen [...] The bases of the lungs are clear. [facility] [place] NAME: MANDY CAZARES [address] [place] [address] PHYS: Paula Vera NP [place] [address] : 1965 AGE: 52 SEX: M LOC: B.ERS PHONE #: [phone] EXAM DATE: 07/21/2018 STATUS: REG ER FAX #: [phone] RAD #: D/C DT PAGE 1 Signed Report (CONTINUED) Patient Name: MANDY CAZARES Unit No: [id number] EXAMS: CPT CODE: [id number] CT ABD PELVIS W/O CONT 27348 <Continued> The pelvic contents are unremarkable without [...] by: Heather Martinez M.D. CC: Paula Mandel MANAGER TALENT MANAGEMENT Dictated Date/Time: 07/21/2018 (2005) Technologist: Ryland Case CTDI: 10.33 DLP: 582.31 Trnscrpt: 07/21/2018 (2005) [email or web address] FLY [place] NAME: MANDY CAZARES [address] [place] [address] PHYS: Paula Vera [place] [address] : 1965 AGE: 52 SEX: M LOC: BMoisésERS PHONE #: [phone] EXAM DATE: 07/21/2018 STATUS: REG ER FAX #: [phone] RAD #: D/C DT PAGE 2 Signed Report Patient Name: MANDY CAZARES Unit No: [id number] EXAMS: CPT CODE: [id number] CT ABD PELVIS W/O CONT 57108 <Continued> Orig Print D/T: S: 07/21/2018 (2008) FLY Chawla NAME: MANDY CAZARES [address] [place] [address] PHYS: Paula Vera MANAGER TALENT MANAGEMENT [place] [address] : 1965 AGE: 52 SEX: M LOC: B.ERS PHONE #: [phone] EXAM DATE: 07/21/2018STATUS: REG ER FAX #: [phone] RAD #: D/C DT PAGE 3 Signed Report COMPREHENSIVE METABOLIC [id number] 17:37:00 Test Item Value Reference Range Interpretation [...] 1 NORMAL code = LIPINDEX) MG Index/DL [id number] 17:37:00 Test Item Value Reference Range Interpretation Comments LIPASE (test code = LIP) 121 Unit/L 114-286 N [id number] 17:37:00 Test Item Value Reference Range Interpretation [...] change s in troponin levelscharacter istic of NM. CBC W/MANUAL [id number] 17:35:00 Test Item Value Reference Range Interpretation [...] 0.00 K/mm3 0.00-0.05 N NRBC#) COMPREHENSIVE METABOLIC [id number] 17:33:00 Test Item Value Reference Range Interpretation [...] 1 NORMAL code = LIPINDEX) MG Index/DL [id number] 17:33:00 Test Item Value Reference Range Interpretation Comments LIPASE (test code = LIP) 121 Unit/L 114-286 N [id number] 17:33:00 Test Item Value Reference Range Interpretation Comments TROPONIN-I (test code = TROPI) NG/ML 0.000-0.045 - CT ABD PELVIS W/O [id number] 15:38:00 Patient Name: MANDY CAZARES Unit No: [id number] EXAMS: CPT CODE: [id number] CT ABD PELVIS W/O CONT 44616 Site ID: [id number] CLINICAL HISTORY: Abdominal pain, [...] 10.01 DLP: 596.61 Trnscrpt: 06/23/2018 (1538) [id number] [facility] [place] NAME: MANDY CAZARES [address] [place] [address] PHYS: Marge Cano, [place] [address] : 1965 AGE: 52 SEX: M LOC: [place] PHONE #: [phone] EXAM DATE: 06/23/2018 STATUS: REG ER FAX #: [phone] RAD #: D/C DT PAGE 1 Signed Report Patient Name: MANDY CAZARES Unit No: [id number] EXAMS: CPT CODE: [id number] CT ABD PELVIS W/O CONT 58257 <Continued> Orig Print D/T: S: 06/23/2018 (1541) FLY [place] NAME: MANDY CAZARES [address] [place] [address] Blvd PHYS: MARY.03 - ,Marge GLASER [place], [place] [address] : 1965 AGE: 52 SEX: M LOC: [place] PHONE #: [phone] EXAM DATE: 06/23/2018 STATUS: REG ER FAX #: [phone] RAD #: D/C DT PAGE 2 Signed ReportCOMPREHENSIVE METABOLIC [id number] 15:10:00 Test Item Value Reference Range Interpretation [...] 1 NORMAL code = LIPINDEX) MG Index/DL [id number] 15:10:00 Test Item Value Reference Range Interpretation Comments LIPASE (test code = LIP) 134 Unit/L 114-286 N CBC W/AUTO [id number] 14:51:00 Test Item Value Reference Range Interpretation [...] = 0.00 K/mm3 0.00-0.05 N NRBC#) URINALYSIS [id number] 14:14:00 Test Item Value Reference Range Interpretation [...] NONE MUCU) UA RFLX MICR CULT IF [id number] 01:11:00 Test Item Value Reference Range Interpretation [...] for Culture: OtherOther Indication: FLANK PAIN PROTHROMBIN [id number] 01:10:00 Test Item Value Reference Range Interpretation [...] - 3.0 Atrial fibrillation 2.0 - 3.03. Account Consultant al prosthetic valv es (high risk) 2.5 - 3.5 * If oral anticoagulant t herapy is elected to preventrecurren t myocardial infa rction, an INR of 2.5-3 .5 isrecommended, consistent with Food and Drug Administrationr ecommen dations. THROMBOPLASTIN TIME [id number] 01:10:00 Test Item Value Reference Range Interpretation Comments THROMBOPLASTIN TIME 24.5 SECONDS 23.4-37.0 N Therap eutic Range PARTIAL (test code = for Hep janet PTT) EFFECTIVE Heparin IU/mL aPT T Seconds0.3 64.30.7 88.8 CBC W/AUTO [id number] 01:01:00 Test Item Value Reference Range Interpretation [...] 0.0-0.1 N - CT ABD PELVIS W/O [id number] 00:23:00 FAX: Josr Sanchez NP [phone] [place]: St: PRE Name: MANDY CAZARES : 1965 Age/S: 52/M [address] Unit: [id number] Loc: RAGHAVENDRA [place] [address] Phys: Josr Sanchez NP Acct: [id number] Dis Date: Status: PRE ER PHONE #: [phone] Exam Date: 04/20/2018 0005 FAX #: [phone] Reason: BILATERAL FLANK PAIN EXAMS: CPT CODE: [id number] CT ABD PELVIS W/O CONT 82501 EXAM: CT ABDOMEN AND PELVIS WITHOUT CONTRAST. [...] Signed Report (CONTINUED) FAX: Josr Sanchez NP [phone] [place]: St: PRE Name: MANDY CAZARES [facility] : 1965 Age/S: 52/M [address] Unit: [id number] Loc: [place] [address] Phys: Josr Sanchez NP Acct: [id number] Dis Date: Status: PRE ER PHONE #: [phone] Exam Date: 04/20/2018 0005 FAX #:[phone] Reason: BILATERAL FLANK PAIN EXAMS: CPT CODE: [id number] CT ABD PELVIS W/O CONT 48712 <Continued> adjustment of the mA and or kV according to patient size and/or use of iterative reconstruction technique. at 0023 Reported and signed by: Jill Keating MD CC: Josr Sanchez NP Technologist: Yadira Villafana Trnscrd Dt/Tm: 04/20/2018 (0023) [id number] Orig Print D/T: S: 04/20/2018 (0026 PAGE 2 Signed Report- CT ABD PELVIS [id number] 14:41:00 Patient Name: MANDY CAZARES Unit No: [id number] EXAMS: CPT CODE: [id number] CT ABD PELVIS W/CONT 44282 Site ID: [id number] CLINICAL HISTORY: Abdominal and [...] 11.97 DLP: 668.50 Trnscrpt: 04/06/2018 (1441) RosyAJP6 [facility] [place] [facility] PHYS: Sheron Mills MD [place] [address] : 1965 AGE: 52 SEX: M LOC: B.ERS PHONE #: [phone] EXAM DATE: 04/06/2018 STATUS: REG ER FAX #: [phone] RAD #: D/C DT PAGE 1 Signed Report Patient Name: MANDY CAZARES Unit No: [id number] EXAMS: CPT CODE: [id number] CT ABD PELVIS W/CONT 33166 <Continued> Orig Print D/T: S: 04/06/2018 (3838) LUIS M [place] NAME: [facility] PHYS: Sheron Mills MD [place], [place] [address] : 1965 AGE: 52 SEX: M LOC: [place].ERS PHONE #: [phone] EXAM DATE: 04/06/2018 STATUS: REG ER FAX #: [phone] RAD #: D/C DT PAGE 2 Signed ReportURINALYSIS [id number] 14:23:00 Test Item Value Reference Range Interpretation [...] = RARE /LPF NONE MUCU) HEPATIC FUNCTION [id number] 14:06:00 Test Item Value Reference Range Interpretation [...] <50 MG 1 NORMAL = LIPINDEX) Index/DL [id number] 14:06:00 Test Item Value Reference Range Interpretation Comments LIPASE (test code = LIP) 271 Unit/L 114-286 N [id number] 14:06:00 Test Item Value Reference Range Interpretation [...] change s in troponin levelscharacter istic of NM. CBC W/O [id number] 13:47:00 Test Item Value Reference Range Interpretation [...] 10.0 fL 7.6-10.4 N MPV) CHEMISTRY 7 [id number] 13:39:00 Test Item Value Reference Range Interpretation [...] 56-130 L code = GFRBED) CHEMISTRY 7 [id number] 13:39:00 Test Item Value Reference Range Interpretation [...] code = GFRBED) - XR CHEST 1 [id number] 13:27:00 FAX: Sheron Garcia MD [phone] [place]: E St: PRE Patient Name: MANDY CAZARES Unit No: [id number] EXAMS: CPT CODE: [id number] XR CHEST 1 V 74742 - XR CHEST 1 V INDICATION:Abdominal pain, vomiting, headache LOCATION: T18 Partial inspiration. The lungs are clear. The cardiomediastinal silhouette is within normal limits. Old left rib fractures noted. IMPRESSION: Partial inspiration. No active disease. at 1327 Reported and signed by: Parminder Valencia D.O. CC: Sheron Couch MD Dictated Date/Time: 04/06/2018 (3335)Technologist: Jcarlos Merlos Transcribed Date/Time: 04/06/2018 (6562) By: Lyle Orig Print D/T: S: 04/06/2018 (4137) LUIS M [place] NAME: MANDY CAZARES [address] [place] [address] PHYS: TARIK. Sheron [place], [place] [address] : 1965 AGE: 52 SEX: M LOC: [place] PHONE #: [phone] EXAM DATE: 04/06/2018 STATUS: PRE ER FAX #: [phone] RAD N O: YAHAIRA Dt: PAGE 1 Signed Report"
[2021-03-21 08:54] LABS: Urine Blood Trace-intact (Negative); Urine Glucose Negative (Negative); Urine Protein Trace (Negative); Urine Specific Gravity 1.015 (1.005-1.030)
[2021-03-21 09:03] LABS: Absolute Lymphocytes (CBC) 1.8 K/uL (0.7-4.9); Hematocrit 30.2 % (39.6-49.0); Lymphocytes % 30.5 % (15.3-44.8); MPV 7.6 fL (7.6-11.3); RBC Red Blood Cell Count 3.27 M/uL (4.33-5.43)
--- NOTE | 2021-03-21 09:18 | RAD REPORT ---
EXAM DESCRIPTION: RAD - Chest Single View - 03/21/2021 8:30 am CLINICAL HISTORY: CHEST PAIN COMPARISON: Chest film 08/15/2019 TECHNIQUE: AP portable chest image was obtained 03/21/2021 8:30 am . FINDINGS: Lungs are clear. Heart and vasculature are normal. No measurable pleural effusion and no p neumothorax. No acute bony abnormality seen. No acute aortic findings suspected. IMPRESSION: No acute cardiopulmonary process. No significant change from comparison study.
[2021-03-21 09:58] LABS: Protime INR 0.93
[2021-03-21] MEDS ORDERED: HYDROMORPHONE HCL 1 MG/ML INJ ONE (09:59)
[2021-03-21] MEDS ORDERED: ONDANSETRON 4 MG/2 ML VIAL ONE (09:59)
--- NOTE | 2021-03-21 10:04 | EKG ---
Test Date: 2021-03-21 Test Time: 07:37:08 Automation And Controls Supervisor: JORI MEASUREMENT RESULTS: Intervals: Rate: 90 TX: 216 QRSD: 64 QT: 320 QTc: 391 Peterson: P: 93 TX: 216 QRS: -31 T: 63 INTERPRETIVE STATEMENTS: Sinus rhythm with 1st degree AV block Left axis deviation Low voltage QRS Inferior infarct, age undetermined Possible Anterolateral infarct, age undetermined Abnormal ECG Compared to ECG 08/13/2018 19:10:08 Left-axis deviation now present Low QRS voltage now present Left anterior fascicular block no longer present Myocardial infarct finding still present Electronically Signed On 03-21-21 10:03:18 GAS LEAK INSPECTOR HELPER by Melvin Roa
[2021-03-21 10:16] LABS: Barbiturates NEGATIVE (NEGATIVE); Benzodiazepines NEGATIVE (NEGATIVE); Cocaine NEGATIVE (NEGATIVE); METHAMPHETAM NEGATIVE (NEGATIVE); Methadone NEGATIVE (NEGATIVE); Opiates NEGATIVE (NEGATIVE); Phencyclidine NEGATIVE (NEGATIVE); THC Cannibis POSITIVE (NEGATIVE)
[2021-03-21 11:52] LABS: ALT/SGPT 18 U/L (12-78); AST/SGOT 11 U/L (15-37); Alkaline Phosphatase 82 U/L (45-117); BUN Blood Urea Nitrogen 30 mg/dL (7-18); Bicarbonate 23 mmol/L (21-32); Bilirubin Direct < 0.1 mg/dL (0-0.2); Bilirubin Total 0.1 mg/dL (0.2-1.0); Glucose Level 98 mg/dL (74-106); Potassium 4.6 mmol/L (3.5-5.1); Sodium Level 139 mmol/L (136-145)
[2021-03-21 11:53] LABS: Magnesium 1.9 mg/dL (1.8-2.4); NT PRO-BNP 114 pg/mL (<125); Troponin (Emerg Dept Use Only) < 0.02 ng/mL (0.0-0.045)
--- NOTE | 2021-03-21 12:10 | EDPHYS ---
Physician Documentation [facility] Name: Jeovany Buckley Age: 55 yrs Sex: Male : 1965 Arrival Date: 03/21/2021 Time: 07:10 Bed 24 Private MD: ED Physician Eric Russell HPI: 03/21 07:59 This 55 yrs old Male presents to ER via Ambulatory with complaints of Chest Pain. sp3 07:59 55-year-old male with a history of Kaveh's disease, hypertension, bipolar disease sp3 (controlled on medications), prior hiatal hernia who now presents with 2-day history of upper chest pain, upper epigastric abdominal pain, vomiting and "heartburn". Patient denies headache, neck pain, shortness of breath, diarrhea, lower abdominal pain, lower back pain, hematuria, change in urine output, or any other ROS at this time. Patient did say he had a high risk COVID-19 contact 2 days ago and is also requesting a COVID-19 test. Symptoms are improved at this time. Patient has no cardiac history.. Historical: - Allergies: 07:22 PENICILLINS; tw2 07:22 Sulfa (Sulfonamide Antibiotics); tw2 - Home Meds: 07:22 buspirone 10 mg oral tab 1 tab [Active]; lisinopril 5 mg Oral tab 1 tab once daily tw2 [Active]; escitalopram oxalate 20 mg oral tab 1 tab once daily [Active]; trazodone 100 mg Oral tab 1 tab once daily [Active]; quetiapine 400 mg oral tab 1 tab 2 times per day [Active]; quetiapine 100 mg oral tab 1 tab once in morning [Active]; rosuvastatin 20 mg oral cpSP 1 cap once daily [Active]; Eliquis 2.5 mg oral tab 1 tab once a day [Active]; Vitamin B-12 1,000 mcg Oral tab [Active]; Multivitamin 50 Plus oral tab [Active]; Stool Softener 50 mg oral cap 1 cap once daily [Active]; - PMHx: 07:22 Bipolar disorder; DVT; RLE; Crockett's Disease; Hypertension; liver damage; Renal tw2 Disease; - Immunization history:: Client reports having NOT received the Covid vaccine. Flu vaccine status is unknown. - Social history:: Smoking status: Patient reports the use of cigarette tobacco products, smokes one-half pack cigarettes per day, Patient/guardian denies using alcohol, street drugs. ROS: 08:00 Constitutional: Negative for fever, chills, and weight loss, Eyes: Negative for injury, sp3 pain, redness, and discharge, ENT: Negative for injury, pain, and discharge, Neck: Negative for injury, pain, and swelling, Respiratory: Negative for shortness of breath, cough, wheezing, and pleuritic chest pain, Back: Negative for injury and pain, Skin: Negative for injury, rash, and discoloration, Neuro: Negative for headache, weakness, numbness, tingling, and seizure. 08:00 Cardiovascular: Positive for chest pain. 08:00 Abdomen/GI: Positive for nausea and vomiting. 08:00 All other systems are negative. Exam: 07:47 ECG was reviewed by the Attending Physician. EKG demonstrates normal sinus rhythm at 90 sp3 bpm with a first-degree AV block at MN interval 216, normal QRS, slight leftward axis, nonspecific diffuse ST/T changes without evidence of acute ischemia at this time. 08:01 Constitutional: This is a well developed, well nourished patient who is awake, alert, sp3 and in no acute distress. Head/Face: Normocephalic, atraumatic. Eyes: Pupils equal round and reactive to light, extra-ocular motions intact. Lids and lashes normal. Conjunctiva and sclera are non-icteric and not injected. Cornea within normal limits. Periorbital areas with no swelling, redness, or edema. ENT: Nares patent. No nasal discharge, no septal abnormalities noted. External auditory canals are clear. Oropharynx with no redness, swelling, or masses, exudates, or evidence of obstruction, uvula midline. Mucous membranes moist. Neck: Trachea midline, no thyromegaly or masses palpated, and no cervical lymphadenopathy. Supple, full range of motion without nuchal rigidity, or vertebral point tenderness. No Meningismus. Chest/axilla: Normal chest wall appearance and motion. Nontender with no deformity. No lesions are appreciated. Cardiovascular: Regular rate and rhythm with a normal S1 and S2. No gallops, murmurs, or rubs. Normal PMI, no JVD. No pulse deficits. Respiratory: Lungs have equal breath sounds bilaterally, clear to auscultation and percussion. No rales, rhonchi or wheezes noted. No increased work of breathing, no retractions or nasal flaring. Back: No spinal tenderness. No costovertebral tenderness. Full range of motion. Skin: Warm, dry with normal turgor. Normal color with no rashes, no lesions, and no evidence of cellulitis. MS/ Extremity: Pulses equal, no cyanosis. Neurovascular intact. Full, normal range of motion. Neuro: Awake and alert, GCS 15, oriented to person, place, time, and situation. Cranial nerves II-XII grossly intact. Motor strength 5/5 in all extremities. Sensory grossly intact. Cerebellar exam normal. Normal gait. Psych: Awake, alert, with orientation to person, place and time. Behavior, mood, and affect are within normal limits. 08:01 Abdomen/GI: Mild epigastric pain without evidence of peritonitis, rebound, guarding, or any other critical physical exam findings.. Vital Signs: 07:19 BP 127 / 93; Pulse 96; Resp 17; Temp 97.5(TE); Pulse Ox 100% on R/A; Weight 77.11 kg tw2 (R); Height 5 ft. 11 in. (180.34 cm); Pain 8/10; 08:26 BP 106 / 74; Pulse 85; Resp 18; Pulse Ox 100% on R/A; galarza 10:01 BP 115 / 81; Pulse 92; Resp 16; Pulse Ox 97% on R/A; ab2 10:30 BP 108 / 80; Pulse 80; Resp 16; Pulse Ox 97% on R/A; galarza 11:15 BP 113 / 80; Pulse 81; Resp 16; Pulse Ox 98% on R/A; ab2 07:19 Body Mass Index 23.71 (77.11 kg, 180.34 cm) tw2 MDM: 07:45 Patient medically screened. sp3 08:01 Data reviewed: vital signs, nurses notes. ED course: 55-year-old male with epigastric sp3 pain. I'm not highly suspicious for cardiac disease. Given pain has been going on for 2+ days, will obtain blood work including troponin and lipase. If work-up is negative will discharge patient home. CT scan is not indicated at this time. Patient is well-appearing and in no acute distress he can follow-up with his regular physician. Clinically have ruled out PE, thoracic aortic dissection, AAA, infectious process, other critical findings at this time.. 12:09 ED course: Labs at baseline and troponin is negative. COVID-19 is positive. Will sp3 discharge patient home at this time without diagnosis. No pneumonia seen on x-ray.. 03/21 07:44 Order name: Basic Metabolic Panel; Complete Time: 12:08 sp3 03/21 07:44 Order name: CBC with Diff; Complete Time: 09:47 sp3 03/21 07:44 Order name: LFT's; Complete Time: 12:08 sp3 03/21 07:44 Order name: Magnesium; Complete Time: 12:08 sp3 03/21 07:44 Order name: NT PRO-BNP; Complete Time: 12:08 sp3 03/21 07:44 Order name: PT-INR; Complete Time: 10:35 sp3 03/21 07:44 Order name: Troponin (emerg Dept Use Only); Complete Time: 12:08 sp3 03/21 07:44 Order name: Urine Drug Screen; Complete Time: 10:35 sp3 03/21 07:58 Order name: Lipase sp3 03/21 07:58 Order name: COVID-19 (Coronavirus) Document "Date of Onset" if Symptomatic 3 03/21 07:58 Order name: Lipase; Complete Time: 12:08 EDMS 03/21 08:54 Order name: Urine Dipstick-Ancillary; Complete Time: 09:04 EDMS 03/21 09:53 Order name: SARS-COV-2 RT PCR; Complete Time: 11:41 EDMS 03/21 07:44 Order name: XRAY Chest (1 view); Complete Time: 09:47 sp3 03/21 07:44 Order name: EKG; Complete Time: 07:44 sp3 03/21 07:44 Order name: Cardiac monitoring; Complete Time: 08:55 sp3 03/21 07:44 Order name: EKG - Nurse/Tech; Complete Time: 07:56 sp3 03/21 07:44 Order name: IV Saline Lock; Complete Time: 08:55 sp3 03/21 07:44 Order name: Labs collected and sent; Complete Time: 08:55 sp3 03/21 07:44 Order name: O2 Per Protocol; Complete Time: 08:55 sp3 03/21 07:44 Order name: O2 Sat Monitoring sp3 03/21 07:44 Order name: Urine Dipstick-Ancillary (obtain specimen); Complete Time: 08:55 sp3 03/21 09:08 Order name: Labs - recollect needed: recollect blue and green top; Complete Time: 09:47 eb 03/21 10:12 Order name: Labs - recollect needed: recollect green top; Complete Time: 11:40 eb Administered Medications: 10:00 Drug: Dilaudid (HYDROmorphone) 1 mg Route: IVP; Site: left antecubital; galarza 10:44 Follow up: Response: No adverse reaction galarza 10:00 Drug: Zofran (Ondansetron) 4 mg Route: IVP; Site: left antecubital; galarza 10:44 Follow up: Response: No adverse reaction galarza Disposition Summary: 03/21/21 12:10 Discharge Ordered Location: Home sp3 Condition: Stable sp3 Diagnosis - SARS-associated coronavirus as the cause of diseases classified elsewhere sp3 Discharge Instructions: - Discharge Summary Sheet sp3 - COVID-19 sp3 - 10 Things You Can Do to Manage Your COVID-19 Symptoms at Home - CDC sp3 Forms: - Medication Reconciliation Form sp3 - Thank You Letter sp3 - Antibiotic Education sp3 - Prescription Opioid Use sp3 Signatures: Dispatcher [employer] EDSelam Morton RN RN tw2 Tri Osborne Setul, MD MD sp3 Charisse-Yessica Vizcaino RN RN galarza Corrections: (The following items were deleted from the chart) 09:53 07:58 CORONAVIRUS ordered. EDMS EDMS
--- NOTE | 2021-03-21 12:10 | ER ---
Nurse's Notes [facility] Name: Jeovany Buckley Age: 55 yrs Sex: Male : 1965 Arrival Date: 03/21/2021 Time: 07:10 Bed 24 Private MD: Diagnosis: SARS-associated coronavirus as the cause of diseases classified elsewhere Presentation: 03/21 07:19 Chief complaint: Patient states: i am having upper chest pain. i have been throwing up tw2 for 2 days. the chest pain started about midnight. my hands are numb. i cant keep nothing down. my back and my kidneys hurt. i do have renal failure. no dialysis. Coronavirus screen: fever, runny nose, vomiting. Client presents with at least one sign or symptom that may indicate coronavirus-19. Standard/surgical mask placed on the client. Provider contacted for isolation considerations. Ebola Screen: Patient denies travel to an Ebola-affected area in the 21 days before illness onset. Initial Sepsis Screen: Does the patient meet any 2 criteria? HR > 90 bpm. No. Patient's initial sepsis screen is negative. Does the patient have a suspected source of infection? No. Patient's initial sepsis screen is negative. Risk Assessment: Do you want to hurt yourself or someone else? Patient reports no desire to harm self or others. Onset of symptoms was March 21, 2021. 07:19 Method Of Arrival: Ambulatory tw2 07:19 Acuity: JED 3 tw2 Triage Assessment: 07:22 General: Appears in no apparent distress. Behavior is calm, cooperative, appropriate tw2 for age. Pain: Complains of pain in chest and abdomen. Cardiovascular: Reports chest pain. GI: Reports lower abdominal pain, upper abdominal pain, intolerance of fluids, intolerance of food, nausea, vomiting. 10:02 Cardiovascular: Chest pain is described as mild, Pain is 8 out of 10 on a pain scale. ab2 quality is burning, is located in left epigastric area began 6 days. Historical: - Allergies: 07:22 PENICILLINS; tw2 07:22 Sulfa (Sulfonamide Antibiotics); tw2 - Home Meds: 07:22 buspirone 10 mg oral tab 1 tab [Active]; lisinopril 5 mg Oral tab 1 tab once daily tw2 [Active]; escitalopram oxalate 20 mg oral tab 1 tab once daily [Active]; trazodone 100 mg Oral tab 1 tab once daily [Active]; quetiapine 400 mg oral tab 1 tab 2 times per day [Active]; quetiapine 100 mg oral tab 1 tab once in morning [Active]; rosuvastatin 20 mg oral cpSP 1 cap once daily [Active]; Eliquis 2.5 mg oral tab 1 tab once a day [Active]; Vitamin B-12 1,000 mcg Oral tab [Active]; Multivitamin 50 Plus oral tab [Active]; Stool Softener 50 mg oral cap 1 cap once daily [Active]; - PMHx: 07:22 Bipolar disorder; DVT; RLE; Kaveh's Disease; Hypertension; liver damage; Renal tw2 Disease; - Immunization history:: Client reports having NOT received the Covid vaccine. Flu vaccine status is unknown. - Social history:: Smoking status: Patient reports the use of cigarette tobacco products, smokes one-half pack cigarettes per day, Patient/guardian denies using alcohol, street drugs. Screenin:08 Abuse screen: Denies threats or abuse. Nutritional screening: No deficits noted. tw2 Tuberculosis screening: No symptoms or risk factors identified. Fall Risk None identified. Assessment: 07:26 Pain: Pain does not radiate. Pain began 12 hours ago. tw2 Vital Signs: 07:19 BP 127 / 93; Pulse 96; Resp 17; Temp 97.5(TE); Pulse Ox 100% on R/A; Weight 77.11 kg tw2 (R); Height 5 ft. 11 in. (180.34 cm); Pain 8/10; 08:26 BP 106 / 74; Pulse 85; Resp 18; Pulse Ox 100% on R/A; galarza 10:01 BP 115 / 81; Pulse 92; Resp 16; Pulse Ox 97% on R/A; ab2 10:30 BP 108 / 80; Pulse 80; Resp 16; Pulse Ox 97% on R/A; galarza 11:15 BP 113 / 80; Pulse 81; Resp 16; Pulse Ox 98% on R/A; ab2 07:19 Body Mass Index 23.71 (77.11 kg, 180.34 cm) tw2 ED Course: 07:10 Patient arrived in ED. am2 07:22 Triage completed. tw2 07:25 Arm band placed on. tw2 07:42 Eric Russell MD is Attending Physician. sp3 07:42 EKG completed in triage. Results shown to MD. tw2 08:26 Patient has correct armband on for positive identification. Bed in low position. galarza monitoring and evaluation advisor on. Pulse ox on. NIBP on. 08:26 No provider procedures requiring assistance completed. galarza 08:26 Patient maintains SpO2 saturation greater than 95% on room air. galarza 08:30 XRAY Chest (1 view) In Process Unspecified. EDMS 08:55 Lipase Sent. galarza 08:55 COVID-19 (Coronavirus) Document "Date of Onset" if Symptomatic Sent. galarza 08:55 Lipase Sent. galarza 08:55 Urine Drug Screen Sent. galarza 08:55 Basic Metabolic Panel Sent. galarza 08:55 LFT's Sent. galarza 08:55 CBC with Diff Sent. galarza 08:55 Magnesium Sent. galarza 08:55 NT PRO-BNP Sent. galarza 08:55 PT-INR Sent. galarza 08:55 Troponin (emerg Dept Use Only) Sent. galarza 12:25 IV discontinued, intact, bleeding controlled, No redness/swelling at site. Pressure ab2 dressing applied. Administered Medications: 10:00 Drug: Dilaudid (HYDROmorphone) 1 mg Route: IVP; Site: left antecubital; galarza 10:44 Follow up: Response: No adverse reaction galarza 10:00 Drug: Zofran (Ondansetron) 4 mg Route: IVP; Site: left antecubital; galarza 10:44 Follow up: Response: No adverse reaction galarza Outcome: 12:10 Discharge ordered by . sp3 12:25 Discharged to home ambulatory. ab2 12:25 Condition: good 12:25 Discharge instructions given to patient, Instructed on discharge instructions, follow up and referral plans. Demonstrated understanding of instructions, follow-up care. 12:29 Patient left the ED. galaraz Signatures: Dispatcher [employer] EDMS Selam Adam RN RN tw2 Sandi Michael am2 Eric Russell MD MD sp3 Au-StagerYessica RN RN galarza Mando Rodriguez ab2 Corrections: (The following items were deleted from the chart) 09:53 08:55 CORONAVIRUS drawn and sent. galarza EDMS
[2021-03-21 12:36] VITALS: TEMP 97.5
[2021-03-21 12:42] VITALS: BP 113/80; O2SAT 98
== END 2021-03-21 12:29 | disposition home or self-care (01) ==
LOC: ER 07:09
DX: U07.1 COVID-19 (principal); Z88.0 Allergy status to penicillin; Z88.2 Allergy status to sulfonamides; I10 Essential (primary) hypertension; G10 Huntington's disease; N28.9 Disorder of kidney and ureter, unspecified; F17.210 Nicotine dependence, cigarettes, uncomplicated
CPT/HCPCS: 93005; 85025; 80048; 36415; 83735; 85610; 80076; 81003; 84484; 83690; 83880; 80307; 71045; 96375; 96374; 99285; U0003; J1170; J2405

== ENCOUNTER 2022-11-06 11:57 | Emergency (ER) | payer MEDICARE ==
--- OUTSIDE RECORDS SUMMARY | 2022-11-06 12:13 | XMS REPORT | Continuity of Care Document ---
:1965 Author Organization [facility] t Address [address] [place] [address] [address] [place] [address] Care Team Providers Name Role Phone SANDI RUSSELL Primary Care Physician Unavailable Sandi Russell Attending Clinician Unavailable TERRY RUSSELL Attending Clinician Unavailable Celestino --Tatyana Attending Clinician Yvon Duarte Attending Clinician Celestino_R Attending Clinician Unavailable Donta_Sudhakar Attending Clinician Unavailable Susan Attending Clinician Unavailable Marie Sandy Attending Clinician IVAN LAKE Attending Clinician Unavailable JORGE_Nora Attending Clinician Unavailable Doctor Unassigned, [place] Attending Clinician Unavailable CARLOS LINDQUIST Attending Clinician Unavailable Carlos Lindquist MD Attending Clinician Caremn Lund Attending Clinician Wilbert Lovett Attending Clinician Anirudh Reyes II Attending Clinician Magdalena Kirkland Attending Clinician Kaiden Nicolas Admitting Clinician Unavailable TERRY RUSSELL Admitting Clinician Unavailable Celestino_Glendy Admitting Clinician Unavailable Kingsley Admitting Clinician Unavailable Susan Admitting Clinician Unavailable ED Admitting Clinician Unavailable Carmen Lund Admitting Clinician Wilbert Lovett Admitting Clinician Anirudh Reyes II Admitting Clinician Payers Payer Name Policy Type Policy Number Effective Date Expiration Date Roddy AWAD Medicare C [id number] 2018 00:00:00 [facility] MGD [id number] 2021 [facility] 00:00:00 [facility] [id number] 2020 (MEDICARE 00:00:00 REPLACEMENT HMO) Problems Condition Condition Condition Status Onset Resolution Last Treating Co mments Source Name Details Category Date Date Treatment Clinician Date Abdominal Abdominal Disease Active Uni vers pain pain 8-18 ity of 00:00: [place] 00 Medical Branch (L) SIDE (L) SIDE Diagnosis Active 2017-032018-05-03 Memoria PAIN PAIN 0-19 13:25:00 l Active 00:00: [place] 12/31/2017 00 [place] FLANK PAIN FLANK Diagnosis Active 2017-12-15 Memoria PAIN 9-30 12:27:00 l Active 06:00: [place]on[place] 12/12/2017 00 [facility] CP CP Diagnosis Active 2017-11-30 Mem oria Active 11-29 09:29:00 l 11/29/2017 00:00: Trae broussard 00 [place] ABDOMINAL ABDOMINAL Diagnosis Active 2017-11-29 Memoria PAIN PAIN 11-26 11:47:00 l Active 00:00: [place] 11/26/2017 00 [facility] LEG PAIN LEG PAIN Diagnosis Active 2017-05-23 Memoria Active 05-23 21:28:00 l 05/23/2017 00:00: Trae broussard [address] [id number] Gastro-eso Problem Co mmon phageal Spirit reflux - CHI disease without [facility] esophagiti Medica l s Center [id number] Iron Problem Common deficiency Spirit anemia, - [facility] unspecifie [facility] iron [facility] deficiency Medica l anemia Center type [id number] CKD Problem Common (chronic Spirit kidney - [facility]I disease) [facility] GFR 15-29 Medical ml/min Center Chronic 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 [id number] Chronic Problem Comm on deep vein Spirit thrombosis - CHI (DVT) of femoral [facility] vein of [facility] right Center lower extremity [id number] Bipolar Problem Commo n disorder Spirit with - [facility]I moderate [facility] [id number] +5th digit Problem Co mmon eff Spirit 12/14/19*Ch - CHI ronic kidney [facility] disease, Medical stage 3 Center [id number] Gastroesop Problem Co mmon hageal Spirit reflux - CHI disease, St esophagiti [facility] s presence Medica l not Center specified Allergic Non-season Problem Com mon rhinitis al Spirit allergic - CHI rhinitis, St unspecifie [facility] [id number] Tobacco Problem Commo n abuse Spirit counseling - [facility] [id number] Primary Problem Common insomnia Spirit - [facility] [id number] MOSES Problem Common (generaliz Spirit ed anxiety - CHI disorder) [facility] [id number] Tobacco Problem Commo n use Spirit disorder - [facility] [id number] PUD Problem Common (peptic Spirit ulcer - [facility]I disease) [facility] [id number] Essential Problem Comm on (primary) Spirit hypertensi - CHI on [facility] [id number] [place] Problem Com mon disease [facility] - [facility] [id number] Depression Problem Com mon , major, Spirit single - [facility]I episode, [facility] Suicidal Suicidal Problem 2018-07-04 Memoria ideations ideations 13:11:13 l 07/04/2018 Trae broussard [facility] [place] Problem 2018-07-24 Memoria 's disease n's 12:47:31 l disease [place] 07/24/2018 [facility] Chronic Chronic Problem 2018-07-04 Me moria embolism embolism 13:11:13 l and and [place] thrombosis thrombosis of of unspecifie unspecifie d deep d deep veins of veins of unspecifie unspecifie d lower d lower extremity extremity 07/04/2018 [facility] Acute Acute Problem 2018-07-04 Memor ia kidney kidney 13:11:13 l failure, failure, Trae n unspecifie unspecifie d d 07/04/2018 [facility] Other Other Problem 2018-07-04 Memor ia ascites ascites 13:11:13 l 07/04/2018 Trae broussard [facility] Other Other Problem 2018-07-04 Memor ia infectious infectious 13:11:13 l disease disease [place] 07/04/2018 [facility] Right Right Problem 2018-07-04 Memor ia upper upper 13:11:13 l quadrant quadrant Trae n pain pain 07/04/2018 [facility] Cyst of Cyst of Problem 2018-07-04 M emoria kidney, kidney, 13:11:13 l acquired acquired Trae n 07/04/2018 [facility] Other Other Problem 2018-07-04 Memor ia surgical surgical 13:11:13 l procedures procedures He rmann as the as the cause of cause of abnormal abnormal reaction reaction of the of the patient, patient, or of or of later later complicati complicati on, on, without without mention of mention of misadventu misadventu re at the re at the time of time of the the procedure procedure 07/04/2018 [facility] Chronic Chronic Problem 2018-07-24 Me moria kidney kidney 12:47:31 l disease, disease, Trae n stage 3 stage 3 (moderate) (moderate) 9 [facility] Nicotine Nicotine Problem 2018-07-24 Memoria dependence dependence 12:47:31 l , , [place] cigarettes cigarettes , , uncomplica uncomplica maame maame 07/24/2018 [facility] Bipolar Bipolar Problem 2018-07-24 Il moria disorder, disorder, 12:47:31 l unspecifie unspecifie He rmann d d 07/24/2018 [facility] Gastro-eso Gastro-es Problem 2018-07-24 Memoria phageal ophageal 12:47:31 l reflux reflux [place] disease disease without without esophagiti esophagiti s s 07/24/2018 [facility] Diaphragma Diaphragm Problem 2018-07-04 Memoria tic hernia atic 13:11:13 l without hernia [place] obstructio without n or obstructio gangrene n or gangrene 07/04/2018 [facility] Acquired Acquired Problem 2018-07-24 Memoria absence of absence of 12:47:31 l other other [place] specified specified parts of parts of digestive digestive tract tract 07/24/2018 [facility] 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 home 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 Problem 2018-07-24 Memoria (current) (current) 12:47:31 l use of use of [place] anticoagul anticoagul ants ants 07/24/2018 [facility] Chronic Chronic Problem 2018-06-20 Il mori embolism embolism 13:17:49 l and and [place] thrombosis thrombosis of of unspecifie unspecifie d deep d deep veins of veins of right right lower lower extremity extremity 06/20/2018 [facility] Acute Acute Problem 2018-06-20 Memor ia gastritis gastritis 13:17:49 l without without [place] bleeding bleeding 06/20/2018 [facility] Constipati Constipat Problem 2018-06-17 Memoria on, ion, 11:20:43 l unspecifie unspecifie He rmann d d 06/17/2018 [facility] Hyperkalem Hyperkale Problem 2018-06-20 Memoria ia cruz 13:17:49 l 06/20/2018 Trae n [facility] Acidosis Acidosis Problem 2018-07-24 Memoria 07/24/2018 12:47:31 l [facility] Hypertensi Hypertens Problem 2018-07-24 Memoria ve chronic noy 12:47:31 l kidney chronic [place] disease kidney with stage disease 1 through with stage stage 4 1 through chronic stage 4 kidney chronic disease, kidney or disease, unspecifie or d chronic unspecifie kidney d chronic disease kidney disease 07/24/2018 [facility] Hypocalcem Hypocalce Problem 2018-07-24 Memoria ia cruz 12:47:31 l 07/24/2018 Trae broussard [facility] Anemia, Anemia, Problem 2018-07-24 Il moria unspecifie unspecifie 12:47:31 l d d [place] 07/24/2018 [facility] Dehydratio Dehydrati Problem 2018-07-24 Memoria n on 12:47:31 l 07/24/2018 Trae broussard [facility] Hypovolemi Hypovolem Problem 2018-07-24 Memoria a ia 12:47:31 l 07/24/2018 Trae broussard [facility] Hematuria, Hematuria Problem 2018-07-24 Memoria unspecifie , 12:47:31 l d unspecifie Trae n d 07/24/2018 [facility] Personal Personal Problem 2018-07-24 Memoria history of history of 12:47:31 l other other [place] venous venous thrombosis thrombosis and and embolism embolism 07/24/2018 [facility] Acute Acute Problem 2017-08-30 Memor ia embolism embolism 13:20:15 l and and [place] thrombosis thrombosis of right of right popliteal popliteal vein vein 08/30/2017 [facility] Chronic Chronic Problem 2017-08-30 M emoria kidney kidney 13:20:15 l disease, disease, Trae broussard unspecifie unspecifie d d 08/30/2017 [facility] Calculus Calculus Problem Active 2018-07-24 Memoria in biliary in biliary 12:47:31 l tract tract [place] (disorder) (disorder) Active Problem 07/24/2018 [facility] Bipolar Bipolar Problem Active 2018-07-24 Il moria disorder disorder 12:47:31 l (disorder) (disorder) He rmann Active Problem 07/24/2018 [facility] Chronic Chronic Problem Active 2018-07-24 Il moria cholecysti cholecysti 12:47:31 l tis with tis with Trae broussard calculus calculus (disorder) (disorder) Active Problem 07/24/2018 [facility] Chronic Chronic Problem Active 2018-07-24 Il moria kidney kidney 12:47:31 l disease disease [place] (disorder) (disorder) Active Problem 07/24/2018 [facility] Decreased Problem Active 2018-07-24 Il moria liver Decreased 12:47:31 l function liver [place] (finding) function (finding) Active Problem 07/24/2018 [facility] Deep Deep Problem Active 2018-07-24 Memor ia venous venous 12:47:31 l thrombosis thrombosis He marvin (disorder) (disorder) Active Problem 07/24/2018 [facility] UNSPECIFIE UNSPECIFI Diagnosis Active 2018-05-03 Memoria D KIDNEY ED KIDNEY 13:25:00 l FAILURE FAILURE Daonay Active [facility] ACUTE ACUTE Diagnosis Active 2017-11-29 Mem oria CHOLECYSTI CHOLECYSTI 11:47:00 l TIS TIS Active Trae n [facility] CALCULUS CALCULUS Diagnosis Active 2017-11-30 Memoria OF OF 09:29:00 l GALLBLADDE GALLBLADDE He marvin R W R W CHRONIC CHRONIC CHOLEC CHOLEC Active [facility] OTHER OTHER Diagnosis Active 2017-12-15 Mem oria ASCITES ASCITES 12:27:00 l Active Trae n [facility] OTHER OTHER Diagnosis Active 2017-12-15 Mem oria SPECIFIED SPECIFIED 12:27:00 l DISORDERS DISORDERS Herm ginger OF OF PERITONEUM PERITONEUM Active [facility] ACUTE ACUTE Diagnosis Active 2017-12-15 Mem oria KIDNEY KIDNEY 12:27:00 l FAILURE, FAILURE, Trae n UNSPECIFIE UNSPECIFIE D D Active [facility] History of Past Illness Condition Condition Condition Status Onset Resolution Last Treating Co mments Source Name Details Category Date Date Treatment Clinician Date Acute Acute Problem 2017-032018-07-24 2018-07-24 M marianoria kidney kidney 03-15 12:47:31 12:47:31 l failure failure 04:30: Adonay with with 38 tubular tubular necrosis necrosis 01/13/2018 07/24/2018 [facility] Postproced Problem 2017-032018-07-04 2018-07-04 Memoria ural Postproced 0-17 13:11:13 13:11:13 l hematoma ural 04:20: [place] of a hematoma 27 digestive of a system digestive organ or system structure organ or following structure a following digestive a system digestive procedure system procedure 12/29/2017 9 [facility] Calculus Calculus Problem 2017-032018-06-20 2018-06-20 Memoria of of 04-15 13:17:49 13:17:49 l gallbladde gallbladde 09:42: He marvin r with r with 26 acute and acute and chronic chronic cholecysti cholecysti tis tis without without obstructio obstructio n n 02/12/2018 06/20/2018 [facility] Acute Acute Problem 2017-0 2017-08-30 2017-08-30 Memoria embolism embolism 3- 13:20:15 13:20:15 l and and 02:47: [place] thrombosis thrombosis 38 of right of right femoral femoral vein vein 05/31/2017 08/30/2017 [facility] Acute Acute Problem 2017-0 2017-08-30 2017-08-30 M emoria embolism embolism 05-23 13:20:15 13:20:15 l and and 06:00: [place] thrombosis thrombosis 00 of of unspecifie unspecifie d deep d deep veins of veins of unspecifie unspecifie d distal d distal lower lower extremity extremity 05/23/2017 08/30/2017 [facility] Allergies, Adverse Reactions, Alerts Allergy Allergy Status Severity Reaction(s) Onset Inactive Treating Comm ents Source Name Type Date Date Clinician Penicill Propensi Active Hives 0 Univer s in ty to 8-17 ity of adverse 00:00: [place] reaction 00 Medical s Branch Sulfa Propensi Active Other - See 0 hypervent Univers (Sulfona ty to comments 8-17 ilate ity of mide adverse 00:00: [place] Antibiot reaction 00 Medica l ics) s Branch PENICILL DRUG Active Hives 0 Univers IN INGREDI 8-17 ity of 00:00: [place] 00 Medical Branch SULFA Drug Active Other-Cmnt 20190 Univer s (SULFONA Class 8-17 ity of MIDE 00:00: [place] ANTIBIOT 00 Medical ICS) Branch Penicill DA Active U 2018-0 [facility] 5[facility]09 [facility] Sulfa DA Active U 2018-0 [facility] (Sulfona 5-09 [facility] mide 00:00: [facility] Antibiot 00 l ics) Medical Center Penicill DA Active U 2018-0 [facility] ins 4- [facility] 00:[facility] Sulfa DA Active U 2018-0 [facility] (Sulfona 4-11 [facility] mide 00:00: [facility] Antibiot 00 l ics) Medical Center Penicill DA Active U 2017-0 [facility] ins 8-10 [facility] 00:00: [facility] 00 l [facility] Center Sulfa DA Active U [facility] (Sulfona 8-10 [facility] mide 00:00: [facility] Antibiot 00 l ics) Medical Center PENICILL Allergy Active High Anaphylaxis [facility] 3[facility]12 [facility] 00[facility]: Medical 00 Center Penicill Drug Active Anaphylaxis, [address] [facility] Allergy Hives 3-12 [facility] 00:[facility]: Medical 00 Center Food Food Active Memoria Tomatoes Tomatoes l [place] sulfa sulfa Active Memoria drugs drugs l [place] quinolon quinolon Active Memori a e e l antibiot antibiot Trae n ics ics penicill penicill Active Memori a in in l [place] 1759 Drug Active stopped Common allergy breathing [facility] - [facility] Social History Social Habit Start Date Stop Date Quantity Comments Source History of Tobacco Current Smoker Co mmon Spirit - Use [facility] History SDFL University o f Alcohol Std Drinks [place] [facility] History [facility] University o f Alcohol Binge [place] [facility] History [facility] University o f Alcohol Comment [place] Med ical Branch Exposure to Unable to assess Univers ity of SARS-CoV-2 (event) [facility] Branch Alcohol intake 2021-02-28 2021-02-28 Lifetime University of 00:00:00 00:00:00 non-drinker [place] Medical (finding) Branch History [facility] 2018-10-30 2018-10-30 5 University o f Financial 00:00:00 00:00:00 [place] [facility] History [facility] Food 2018-10-30 2018-10-30 1 Univers ity of Worry 00:00:00 00:00:00 [place] [facility] History [facility] Food 2018-10-30 2018-10-30 1 Univers ity of Scarcity 00:00:00 00:00:00 [place] [facility] History SDFL 2018-10-30 2018-10-30 1 University o f Transport Med 00:00:00 00:00:00 [place] Medic al Branch History [facility] 2018-10-30 2018-10-30 1 University o f Transport Non-Med 00:00:00 00:00:00 [facility] edical Branch Education 2018-10-30 2018-10-30 17 University of 00:00:00 00:00:00 [facility] Branch Cigarettes smoked 2018-10-30 2018-10-30 Univers ity of current (pack per 00:00:00 00:00:00 [facility] day) - Reported Branch Cigarette 2018-10-30 2018-10-30 University of pack-years 00:00:00 00:00:00 [facility] Tobacco use and 2018-10-30 2018-10-30 Former user Universi ty of exposure 00:00:00 00:00:00 [facility] History SDOH 2018-10-30 2018-10-30 1 University o f Alcohol Frequency 00:00:00 00:00:00 [facility] Social History 2018-01-01 2018-01-01 [facility] 01:16:07 01:16:07 Sex [birth year] At [birth year] [facility] Harleen simms 00:00:00 00:00:00 [facility] Center Smoking Status Start Date Stop Date Source Social History 2017-05-24 02:41:18 [facility] Medications Ordered Filled Start Stop Current Ordering Indication Dosage Frequency Signature Comments Components Source Medication Medication Date Date Medication? Clinician (SIG) Name Name Krystal Rice 2021-03 No 40mg Common (Triamcinol (Triamcinol 0-12 S pirit one) one) 00:00: - [facility] Krystal Rice 2021-03 No 40mg Common (Triamcinol (Triamcinol 0-12 S pirit one) one) 00:00: - [facility] Krystal Rice 2021-03 No 40mg Common (Triamcinol (Triamcinol 0-12 S pirit one) one) 00:00: - [facility] Krystal Rice 2021-03 No 40mg Common (Triamcinol (Triamcinol 0-12 S pirit one) one) 00:00: - [facility] iopamidol 2020-03- No [id number] 120mL 120 mL, Univers (ISOVUE -28 02- Intravenou ity o f 370-500 mL) 16:00: 14:50 s, ONCE, 1 [place] injection 00 :00 dose, On Medica l 120 mL Fri Branch 02/28/21 at 1000, Routine ondansetron 2020-03- No 4mg 4 mg, Slow Univers (ZOFRAN -17 12-17 IV Push, ity of (PF)) 15:30: 14:39 ONCE, 1 [place] injection 4 00 :00 dose, On Medi rishi mg Fri Branch 02/28/21 at 0930, AMINTA morpHINE 2020-03 4mg 4 mg, Slow Un maria eugenia injection 4 17 17 IV Push, ity of mg 15:30: 14:39 ONCE, 1 [place] 00 :00 dose, On Medical Fri Branch 02/28/21 at 0930, STAT NaCl 0.9% 2020-03 1000mL at 999 Uni vers (NS) bolus 05-01 12-17 mL/hr, ity of infusion 15:00: 16:39 1,000 mL, Jair as 1,000 mL 00 :00 IV Medical Infusion, Branch ONCE, 1 dose, On 02/28/21 at 0900, STAT lactulose 2020-03 Yes [id number] 30mL Take 30 mL Univers 10 gram/15 2-17 by mouth 3 ity of mL oral 00:00: (three) [place] solution 00 times Medical daily as Branch needed for Constipati on or For bowel movement. dicyclomine 2020-03 Yes [id number] 20mg Take 1 Univers 20 mg 2-17 tablet by ity of tablet 00:00: mouth [place] 00 every 6 Medical (six) Branch hours as needed for Abdominal pain. ondansetron 2020-03 Yes [id number] 4mg Take 1 Univers (ZOFRAN) 4 2-17 tablet by ity of mg tablet 00:00: mouth [place] 00 every 8 Medical (eight) Branch hours as needed for Nausea and Vomiting (N/V). lactulose 2020-03 Yes [id number] 30mL Take 30 mL Univers 10 gram/15 2-17 by mouth 3 ity of mL oral 00:00: (three) [place] solution 00 times Medical daily as Branch needed for Constipati on or For bowel movement. dicyclomine 2020-03 Yes [id number] 20mg Take 1 Univers 20 mg 2-17 tablet by ity of tablet 00:00: mouth [place] 00 every 6 Medical (six) Branch hours as needed for Abdominal pain. ondansetron 2020-03 Yes [id number] 4mg Take 1 Univers (ZOFRAN) 4 2-17 tablet by ity of mg tablet 00:00: mouth [place] 00 every 8 Medical (eight) Branch hours as needed for Nausea and Vomiting (N/V). busPIRone 5 Yes 15mg Take 15 mg Univers mg tablet 8-21 by mouth ity of 14:47: every [place] 41 evening. Medical Branch QUEtiapine 0 Yes 200mg [...] ity of 14:47: daily. Medical Branch traZODone 0 Yes 100mg Take [...] tablet 41 every Medical evening. Branch lisinopril 2019 Yes 5mg Take 5 mg Un maria eugenia 5 mg tablet 8-21 by mouth ity of 14:47: daily. [place] [id number] Medical Branch traZODone 2018-0 Yes 100mg Take 100 Uni vers 100 mg 8-21 mg by ity of tablet 14:47: mouth at [place] 41 bedtime. Medical Branch escitalopra 20190 Yes 20mg Take 20 mg Univers m oxalate 8-21 by mouth ity of (LEXAPRO) 14:47: at [place] 20 mg 41 bedtime. Medical tablet Branch busPIRone 5 Yes 15mg Take 15 mg Univers mg tablet 8-21 by mouth ity of 14:47: every [place] [id number] evening. Medical Branch QUEtiapine Yes 200mg Take [...] 8-21 by mouth ity of 14:47: daily. [place] [id number] Medical Branch traZODone Yes 100mg Take 100 Uni vers 100 mg 8-21 mg by ity of tablet 14:47: mouth at [place] 41 bedtime. Medical Branch escitalopra Yes 20mg Take 20 mg Univers m oxalate 8-21 by mouth ity of (LEXAPRO) 14:47: at [place] 20 41 bedtime. Medical tablet Branch Flomax 2017-03 No Notes: Memoria 0-23 (Same As: l 13:30: Flomax) [place] 00 "Do Not Crush" Flomax 2017-03 No Notes: Memoria 0-23 (Same As: l 13:30: Flomax) [place] 00 "Do Not Crush" apixaban 2017-03 Yes 2.5 mg = 1 Mem oria 2.5 MG Oral 0-23 tab, PO, l Tablet 13:29: BID, # 60 Trae broussard [Eliquis] 00 tab, 0 Refill(s), Pharmacy: [facility] #[id number] Folic Acid 2017-03 Yes 1 mg = 1 Mem oria 1 MG Oral 0-23 tab, PO, l Tablet 13:29: Daily, # Adonay 00 30 tab, 3 Refill(s), Pharmacy: [facility] #[id number] oxybutynin 2017-03 Yes 5 mg = 1 Mem oria 5 mg oral 0-23 tab, PO, l tablet, 13:29: Daily, [place] n extended 00 30 tab, 1 release Refill(s), Pharmacy: [facility] #[id number] ferrous 2017-03 Yes 325 mg = 1 [place] elise sulfate 325 0-23 tab, PO, l MG Oral 13:29: BID, # 60 Libby nn Tablet 00 tab, 2 Refill(s), [id number] QUEtiapine 2017-03 Yes 300 mg = 3 M emoria 100 mg oral 0-23 tab, PO, l tablet 13:29: Bedtime, 0 Libby nn 00 Refill(s) apixaban 2017-03 Yes 2.5 mg = 1 Mem oria 2.5 MG Oral 0-23 tab, PO, l Tablet 13:29: BID, # 60 Trae n [Eliquis] 00 tab, 0 Refill(s), [id number] Folic Acid 2017-03 Yes 1 mg = 1 Mem oria 1 MG Oral 0-23 tab, PO, l Tablet 13:29: Daily, # Adonay 00 30 tab, 3 Refill(s), [id number] oxybutynin 2017-03 Yes 5 mg = 1 Mem oria 5 mg oral 0-23 tab, PO, l tablet, 13:29: Daily, # Trae n extended 00 30 tab, 1 release Refill(s), [id number] ferrous 2017-03 Yes 325 mg = 1 [place] elise sulfate 325 0-23 tab, PO, l MG Oral 13:29: BID, # 60 Libby nn Tablet 00 tab, 2 Refill(s), [id number] QUEtiapine 2017-03 Yes 300 mg = 3 M emoria 100 mg oral 0-23 tab, PO, l tablet 13:29: Bedtime, 0 Libby nn 00 Refill(s) Potassium 2017-03 No Notes: Memori a Chloride 0-22 (Same as: l 1.33 MEQ/ML 22:41: K-Tania) Herm ginger Oral 00 With food Solution and full glass of water Potassium 2017-03 No Notes: Memori a Chloride 0-22 (Same as: l 1.33 MEQ/ML 22:41: K-Tania) Herm ginger Oral 00 With food Solution and full glass of water Acetaminoph 2017-03 No Notes: Do M emoria en 300 MG / 0-22 not exceed l Codeine 20:02: 4gm/day of Herm ginger Phosphate 00 acetaminop 30 MG Oral hen. (Same Tablet as: [Tylenol Tylenol with with Codeine #3] Codeine # 3) Acetaminoph 2017-03 No Notes: Do M emoria en 300 MG / 0-22 not exceed l Codeine 20:02: 4gm/day of Herm acetaminop 30 MG Oral hen. (Same Tablet as: [Tylenol Tylenol with with Codeine #3] Codeine # 3) ferrous 2017-03 No Notes: Memoria sulfate 0-22 Give with l 14:41: food. iron elemental [id number] as ferrous sulfate Dose=___mg elemental iron ferrous 2017-03 No Notes: Memoria sulfate 0-22 Give with l 14:41: food. iron elemental [id number] as ferrous sulfate Dose=___mg elemental iron Folic Acid 2017-03 No Notes: Memor ia 0-22 (Same as: l 14:39: Folvite) Folic Acid 2017-03 No Notes: Memor ia 0-22 (Same as: l 14:39: Folvite) Seroquel 2017-03 No Notes: Memoria 0-21 (Same as: l 02:00: SEROquel) zolpidem 2017-03 No Notes: Memoria 0-21 (Same As: l 02:00: Ambien) Seroquel 2017-03 No Notes: Memoria 0-21 (Same as: l 02:00: SEROquel) zolpidem 2017-03 No Notes: Memoria 0-21 (Same As: l 02:00: Ambien) Nicotine 2017-03 No Notes: Memoria 0-20 (Same as: l 20:42: Habitrol) "Remove old patch before applicatio n of new patch" WASTE: F/P - P Waste Black; E - P Waste Black Nicotine 2017-03 No Notes: Memoria 0-20 (Same as: l 20:42: Habitrol) [place]ay 00 "Remove old patch before applicatio n of new patch" WASTE: F/P - P Waste Black; E - P Waste Black sodium 2017-03 No Notes: Memoria bicarbonate 0-20 (sodium l 150 mEq + 17:44: bicarb Trae n Dextrose 5% 00 8.4% (1 in Water IV mEq/ml) 50 850 mL ml VL) sodium 2017-03 No Notes: Memoria bicarbonate 0-20 (sodium l 150 mEq + 17:44: bicarb Trae n Dextrose 5% 00 8.4% (1 in Water IV mEq/ml) 50 850 mL ml VL) D5W 1,000 2017-03 No 1,000 mL, Mem oria mL + sodium 0-20 Rate: 125 l acetate 2 16:55: ml/hr, Trae n mEq/mL 00 Infuse intravenous over: 8.6 solution hr, Route: 150 mEq IV, Dosing Weight 84.6 kg, Total Volume: 1,075, Start date: 01/01/18 11:55:00 CDT, Duration: 30 day, Stop date: 01/31/18 11:54:00 [employer], 2.06, m2 D5W 1,000 2017-03 No 1,000 mL, Mem oria mL + sodium 0-20 Rate: 125 l acetate 2 16:55: ml/hr, Trae n mEq/mL 00 Infuse intravenous over: 8.6 solution hr, Route: 150 mEq IV, Dosing Weight 84.6 kg, Total Volume: 1,075, Start date: 01/01/18 11:55:00 CDT, Duration: 30 day, Stop date: 01/31/18 11:54:00 [employer], 2.06, m2 sodium 2017-03 No Notes: Memoria bicarbonate 0-20 (sodium l 150 mEq + 16:00: bicarb Trae n Dextrose 5% 00 8.4% (1 in Water IV mEq/ml) 50 850 mL ml VL) Protonix 2017-03 No Notes: Memoria 0-20 Tablet l 16:00: should not [place] 00 be chewed or crushed. (Same as: Protonix) Lexapro 2017-03 No Notes: Memoria 0-20 (Same as: l 16:00: Lexapro) [place] 00 sodium 2017-03 No Notes: Memoria bicarbonate 0-20 (sodium l 150 mEq + 16:00: bicarb Trae n Dextrose 5% 00 8.4% (1 in Water IV mEq/ml) 50 850 mL ml VL) Protonix 2017-03 No Notes: Memoria 0-20 Tablet l 16:00: should not [place] 00 be chewed or crushed. (Same as: Protonix) Lexapro 2017-03 No Notes: Memoria 0-20 (Same as: l 16:00: Lexapro) Flagyl 2017-03 No Notes: Memoria 0-20 (Same as: l 15:00: Flagyl) Avoid alcohol. Flagyl 2017-03 No Notes: Memoria 0-20 (Same as: l 15:00: Flagyl) Avoid alcohol. Trazodone 2017-03 No Notes: Memori a 0-20 (Same As: l 14:39: Desyrel) Trazodone 2017-03 No Notes: Memori a 0-20 (Same As: l 14:39: Desyrel) sodium 2017-03 No 1,000 mL, Memori a bicarbonate 0-20 Rate: 100 l 8.4% 14:10: ml/hr, [place] additive 00 Infuse 150 mEq + over: 10 D5W 1000 mL hr, Route: IV, Dosing Weight 84.6 kg, Total Volume: 1,000, Start date: 01/01/18 9:10:00 CDT, Duration: 30 day, Stop date: 01/31/18 9:09:00 [employer], 2.06, m2 sodium 2017-03 No 1,000 mL, Memori a bicarbonate 0-20 Rate: 100 l 8.4% 14:10: ml/hr, [place] additive 00 Infuse 150 mEq + over: 10 D5W 1000 mL hr, Route: IV, Dosing Weight 84.6 kg, Total Volume: 1,000, Start date: 01/01/18 9:10:00 CDT, Duration: 30 day, Stop date: 01/31/18 9:09:00 [employer], 2.06, m2 Eliquis 2017-03 No Notes: Memoria 0-20 Same as: l 14:00: Eliquis Buspirone 2017-03 No Notes: Memori a 0-20 (Same As: l 14:00: BuSpar) Lisinopril 2017-03 No Notes: Memor ia 0-20 (Same as: l 14:00: Prinivil, Zestril) Eliquis 2017-03 No Notes: Memoria 0-20 Same as: l 14:00: Eliquis [place] 00 Buspirone 2017-03 No Notes: Memori a 0-20 (Same As: l 14:00: BuSpar) [place] 00 Lisinopril 2017-03 No Notes: Memor ia 0-20 (Same as: l 14:00: Prinivil, [place] 00 Zestril) Trazodone 2017-03 No Notes: Memori a Hydrochlori 0-20 (Same As: l de 50 MG 04:35: Desyrel) Libby nn Oral Tablet 00 Trazodone 2017-03 No Notes: Memori a Hydrochlori 0-20 (Same As: l de 50 MG 04:35: Desyrel) Libby nn Oral Tablet 00 Melatonin 2017-03 No Notes: Memori a 0-20 (Same as: l 04:32: Melatonin) [place] 00 Oxycodone 2017-03 No Notes: Memori a Hydrochlori 0-20 (Same as: l de 5 MG 04:32: Roxicodone Herm ginger Oral Tablet 00 ) Acetaminoph 2017-03 No Notes: Do M emoria en 0-20 not exceed l 04:32: 4 gm/day. [place] 00 (Same as: Tylenol) Morphine 2017-03 No Notes: Memoria 0-20 (Same l 04:32: as:MORPhin [place] 00 e Sulfate) Melatonin 2017-03 No Notes: Memori a 0-20 (Same as: l 04:32: Melatonin) [place] 00 Oxycodone 2017-03 No Notes: Memori a Hydrochlori 0-20 (Same as: l de 5 MG 04:32: Roxicodone Herm ginger Oral Tablet 00 ) Acetaminoph 2017-03 No Notes: Do M emoria en 0-20 not exceed l 04:32: 4 gm/day. [place] 00 (Same as: Tylenol) Morphine 2017-03 No Notes: Memoria 0-20 (Same l 04:32: as:MORPhin [place] 00 e Sulfate) Glucagon 2017-03 No 1 mg, Memoria 0-20 Route: IM, l 04:30: Drug form: [place] 00 PDR/INJ, PRN, Dosing Weight 86.364, kg, PRN Blood Glucose Results, Start date: 12/31/17 23:30:00 CDT, Duration: 30 day, Stop date: 01/30/18 22:29:00 [employer] Dextrose 2017-03 No 25 gm, 50 Carroll elise 50% Syringe 0-20 mL, Route: l 04:30: IVP, Drug [place] 00 Form: INJ, Dosing Weight 86.364, kg, PRN, PRN Blood Glucose Results, Start date: 12/31/17 23:30:00 CDT, Duration: 30 day, Stop date: 01/30/18 22:29:00 [employer] Ondansetron 2017-03 No Notes: Carroll elise 0-20 (Same as: l 04:30: Zofran) [place]ay MEDICATION WASTE Product Size: 4 mg Product Wasted: ___ mg normal 2017-03 No 1,000 mL, Memori a saline 0.9% 0-20 Rate: 150 l IV 1,000 mL 04:30: ml/hr, Herm Infuse over: 6.7 hr, Route: IV, Dosing Weight 86.364 kg, Total Volume: 1,000, Start date: 12/31/17 23:30:00 CDT, Duration: 30 day, Stop date: 01/30/18 23:29:00 [employer], 2.09, m2 Glucagon 2017-03 No 1 mg, Memoria 0-20 Route: IM, l 04:30: Drug form: [place] 00 PDR/INJ, PRN, Dosing Weight 86.364, kg, PRN Blood Glucose Results, Start date: 12/31/17 23:30:00 CDT, Duration: 30 day, Stop date: 01/30/18 22:29:00 [employer] Dextrose 2017-03 No 25 gm, 50 Carroll elise 50% Syringe 0-20 mL, Route: l 04:30: IVP, Drug [place] 00 Form: INJ, Dosing Weight 86.364, kg, PRN, PRN Blood Glucose Results, Start date: 12/31/17 23:30:00 CDT, Duration: 30 day, Stop date: 01/30/18 22:29:00 [employer] Ondansetron 2017-03 No Notes: Carroll elise 0-20 (Same as: l 04:30: Zofran) [place]ay MEDICATION WASTE Product Size: 4 mg Product Wasted: ___ mg normal 2017-03 No 1,000 mL, Memori a saline 0.9% 0-20 Rate: 150 l IV 1,000 mL 04:30: ml/hr, Herm ginger 00 Infuse over: 6.7 hr, Route: IV, Dosing Weight 86.364 kg, Total Volume: 1,000, Start date: 12/31/17 23:30:00 CDT, Duration: 30 day, Stop date: 01/30/18 23:29:00 [employer], 2.09, m2 NS (Bolus) 2017-03 No 500 mL, Carroll elsie IV 0-20 500 ml/hr, l 02:05: Infuse Adonay 00 Over: 1 hr, Route: IV, 500, Drug form: INJ, ONCE, Priority: STAT, Dosing Weight 86.364 kg, Start date: 12/31/17 21:05:00 CDT, Stop date: 12/31/17 21:05:00 CDT NS (Bolus) 2017-03 No 500 mL, Carroll elise IV 0-20 500 ml/hr, l 02:05: Infuse Adonay 00 Over: 1 hr, Route: IV, 500, Drug form: INJ, ONCE, Priority: STAT, Dosing Weight 86.364 kg, Start date: 12/31/17 21:05:00 CDT, Stop date: 12/31/17 21:05:00 CDT Tylenol 2017-03 No Notes: Do Memor ia 0-20 not exceed l 02:04: 4 gm/day. Adonay (Same as: Tylenol) Phenergan 2017-03 No Notes: Do Mem oria 0-20 not give l 02:04: IV push. [place] 00 (Same as: Phenergan) Phenergan 2017-03 No Notes: Do Mem oria 0-20 not give l 02:04: IV push. [place] (Same as: Phenergan) Tylenol 2017-03 No Notes: Do Memor ia 0-20 not exceed l 02:04: 4 gm/day. [place]ay 00 (Same as: Tylenol) Saline 2017-03 No Notes: Memoria Flush 0.9% 0-20 (Same as: l 00:29: BD [place] 00 Posiflush) Saline 2017-03 No Notes: Memoria Flush 0.9% 0-20 (Same as: l 00:29: BD [place] 00 Posiflush) Tramadol 2017-03 No Notes: Not Mem oria 0-02 to exceed l 15:27: 400mg/day. [place] 00 (Same As: Ultram) Tramadol 2017-03 No Notes: Not Mem oria 0-02 to exceed l 15:27: 400mg/day. [place] 00 (Same As: Ultram) Protonix 2017-03 No Notes: Memoria 0-01 Tablet l 21:30: should not [place]ay 00 be chewed or crushed. (Same as: Protonix) Protonix 2017-03 No Notes: Memoria 0-01 Tablet l 21:30: should not [place] 00 be chewed or crushed. (Same as: Protonix) Lexapro 2017-03 No Notes: Memoria 0-01 (Same as: l 14:00: Lexapro) Buspar 2017-03 No Notes: Memoria 0-01 (Same As: l 14:00: BuSpar) Lexapro 2017-03 No Notes: Memoria 0-01 (Same as: l 14:00: Lexapro) Buspar 2017-03 No Notes: Memoria 0-01 (Same As: l 14:00: BuSpar) influenza 2017-03 No Notes: Memori a virus 0-01 (Same as: l vaccine, 11:53: Fluzone Trae n inactivated 36 Quadrivale nt, Fluarix Quadrivale nt) For 3 years of age and older (0.5 mL IM) Shake well before use influenza 2017-03 No Notes: Memori a virus 0-01 (Same as: l vaccine, 11:53: Fluzone Trae n inactivated 36 Quadrivale nt, Fluarix Quadrivale nt) For 3 years of age and older (0.5 mL IM) Shake well before use zolpidem 2017-03 No Notes: Memoria 0-01 (Same As: l 02:00: Ambien) Seroquel 2017-03 No Notes: Memoria 0-01 (Same as: l 02:00: SEROquel) zolpidem 2017-03 No Notes: Memoria 0-01 (Same As: l 02:00: Ambien) Seroquel 2017-03 No Notes: Memoria 0-01 (Same as: l 02:00: SEROquel) [place] 00 Metronidazo 2017-03 No Notes: Carroll elise le 0-01 (Same as: l 00:27: Flagyl) [place] 00 Avoid alcohol. Metronidazo 2017-03 No Notes: Carroll elise le 0-01 (Same as: l 00:27: Flagyl) [place] 00 Avoid alcohol. cefepime 2017-03 No Notes: Memoria 0-01 (Same As: l 00:26: Maxipime) [place] 00 MEDICATION WASTE Product Size: 1000 mg Product Wasted: ___ mg cefepime 2017-03 No Notes: Memoria 0-01 (Same As: l 00:26: Maxipime) [place]ay 00 MEDICATION WASTE Product Size: 1000 mg Product Wasted: ___ mg Sodium No 1,000 mL, Memori a Chloride 9-30 Rate: 100 l 0.9% IV 23:44: ml/hr, [place]onay 1,000 mL 00 Infuse over: 10 hr, Route: IV, Dosing Weight 83.636 kg, Total Volume: 1,000, Start date: 12/12/17 18:44:00 CDT, Duration: 30 day, Stop date: 01/11/18 18:43:00 CDT, 2.05, m2 Trazodone No Notes: Memori a 9-30 (Same As: l 23:44: Desyrel) [place] 00 Sodium No 1,000 mL, Memori a Chloride 9-30 Rate: 100 l 0.9% IV 23:44: ml/hr, [place]ay 1,000 mL 00 Infuse over: 10 hr, Route: IV, Dosing Weight 83.636 kg, Total Volume: 1,000, Start date: 12/12/17 18:44:00 CDT, Duration: 30 day, Stop date: 01/11/18 18:43:00 CDT, 2.05, m2 Trazodone No Notes: Memori a 9-30 (Same As: l 23:44: Desyrel) [place] Morphine No Notes: Memoria 9-30 (Same l 23:37: as:MORPhin [place] 00 e Sulfate) Ondansetron No Notes: Carroll elise 12-12 (Same as: l 23:37: Zofran) MEDICATION WASTE Product Size: 4 mg Product Wasted: ___ mg Acetaminoph No Notes: Do M emoria en 12-12 not exceed l 23:37: 4 gm/day. [place] 00 (Same as: Tylenol) Morphine No Notes: Memoria 12-12 (Same l 23:37: as:MORPhin [place] 00 e Sulfate) Ondansetron No Notes: Carroll elise 12-12 (Same as: l 23:37: Zofran) MEDICATION WASTE Product Size: 4 mg Product Wasted: ___ mg Acetaminoph No Notes: Do M emoria en 12-12 not exceed l 23:37: 4 gm/day. (Same as: Tylenol) NS (Bolus) No 1,000 mL, Me moria IV 9-30 2,000 l 22:31: ml/hr, [place] 00 Infuse Over: 1 hr, Route: IV, ONCE, Priority: STAT, Dosing Weight 83.636 kg, Start date: 12/12/17 17:31:00 CDT, Stop date: 12/12/17 17:31:00 CDT NS (Bolus) No 1,000 mL, Me moria IV 9-30 2,000 l 22:31: ml/hr, Infuse Over: 1 hr, Route: IV, ONCE, Priority: STAT, Dosing Weight 83.636 kg, Start date: 12/12/17 17:31:00 CDT, Stop date: 12/12/17 17:31:00 CDT Acetaminoph Yes 2 tab, PO, Memoria en 300 MG / 12-12 Q6H, PRN l Codeine 22:29: Pain, # 56 Herm ginger Phosphate 00 tab, 0 30 MG Oral Refill(s) Tablet [Tylenol with Codeine #3] Acetaminoph Yes 2 tab, PO, Memoria en 300 MG / 12-12 Q6H, PRN l Codeine 22:29: Pain, # 56 Herm ginger Phosphate 00 tab, 0 30 MG Oral Refill(s) Tablet [Tylenol with Codeine #3] pantoprazol 2017- Yes 40 mg = 1 M emoria e 40 MG 9-30 tab, PO, l Enteric 22:28: Daily, Ventura Larkin n Coated 00 30 tab, 0 Tablet Refill(s) [Protonix] pantoprazol 2018- Yes 40 mg = 1 M emoria e 40 MG 9-30 tab, PO, l Enteric 22:28: Daily, # Trae n Coated 00 30 tab, 0 Tablet Refill(s) [Protonix] Escitalopra 2017- Yes 10 mg = 1 M emoria m 10 MG 9-30 tab, PO, l Oral Tablet 22:27: Daily, Ventura Villaseñor rmann [Lexapro] 00 30 tab, 0 Refill(s) Escitalopra 2017- No 20 mg = 1 M emoria m 20 MG 9-30 tab, PO, l Oral Tablet 22:27: Daily, Ventura wong [Lexapro] 00 30 tab, 0 Refill(s) Escitalopra 2017- Yes 10 mg = 1 M emoria m 10 MG 9-30 tab, PO, l Oral Tablet 22:27: Daily, Ventura Villaseñor rmann [Lexapro] 00 30 tab, 0 Refill(s) Escitalopra 2017-0 No 20 mg = 1 M emoria m 20 MG 9-30 tab, PO, l Oral Tablet 22:27: Daily, Ventura wong [Lexapro] 00 30 tab, 0 Refill(s) zolpidem 5 2017- Yes 5 mg = 1 Mem oria mg oral 9-30 tab, PO, l tablet 22:24: Bedtime, 0 Libby nn 00 Refill(s) zolpidem 5 2017-0 Yes 5 mg = 1 Mem oria mg oral 9-30 tab, PO, l tablet 22:24: Bedtime, 0 Lib[place] nn 00 Refill(s) Ondansetron 2017- No 4 mg, Memor ia 9-30 Route: l 21:33: IVP, Drug [place] 00 form: INJ, ONCE, Dosing Weight 83.636, kg, Priority: STAT, Start date: 12/12/17 16:33:00 CDT, Stop date: 12/12/17 16:33:00 CDT Morphine 2017-0 No 4 mg, Memoria 12-12 Route: l 21:33: IVP, ONCE, Dosing Weight 83.636, kg, Priority: STAT, Start date: 12/12/17 16:33:00 CDT, Stop date: 12/12/17 16:33:00 CDT Ondansetron 2017-0 No 4 mg, Memor ia 12-12 Route: l 21:33: IVP, Drug form: INJ, ONCE, Dosing Weight 83.636, kg, Priority: STAT, Start date: 12/12/17 16:33:00 CDT, Stop date: 12/12/17 16:33:00 CDT Morphine 2017-0 No 4 mg, Memoria 12-12 Route: l 21:33: IVP, ONCE, Dosing Weight 83.636, kg, Priority: STAT, Start date: 12/12/17 16:33:00 CDT, Stop date: 12/12/17 16:33:00 CDT Saline No Notes: Memoria Flush 0.9% 9-30 (Same as: l 21:13: BD [place] 00 Posiflush) Saline No Notes: Memoria Flush 0.9% 9-30 (Same as: l 21:13: BD [place] 00 Posiflush) Seroquel No Notes: Memoria 9-20 (Same as: l 02:00: SEROquel) Seroquel No Notes: Memoria 9-20 (Same as: l 02:00: SEROquel) Acetaminoph No 2 tab, PO, Memoria en 300 MG / 12-01 Q6H, PRN l Codeine 17:20: Pain Score Herm ginger Phosphate 00 6-10, X 7 30 MG Oral day, # 50 Tablet tab, 0 [Tylenol Refill(s) with Codeine #3] Acetaminoph No 2 tab, PO, Memoria en 300 MG / -19 Q6H, PRN l Codeine 17:20: Pain Score Herm ginger Phosphate 00 6-10, X 7 30 MG Oral day, # 50 Tablet tab, 0 [Tylenol Refill(s) with Codeine #3] Lisinopril No Notes: Memor ia 12-01 (Same as: l 14:00: Prinivil, [place] 00 Zestril) Nexium No 40 mg, Memoria 12-01 Route: PO, l 14:00: Daily, Dosing Weight 90, kg, Start date: 12/01/17 9:00:00 CDT, Duration: 30 day, Stop date: 12/30/17 9:00:00 CDT Buspar No Notes: Memoria 12-01 (Same As: l 14:00: BuSpar) Lisinopril No Notes: Memor ia 12-01 (Same as: l 14:00: Prinivil, Zestril) Nexium No 40 mg, Memoria 12-01 Route: PO, l 14:00: Daily, Dosing Weight 90, kg, Start date: 12/01/17 9:00:00 CDT, Duration: 30 day, Stop date: 12/30/17 9:00:00 CDT Buspar No Notes: Memoria 12-01 (Same As: l 14:00: BuSpar) Acetaminoph No Notes: Do M emoria en 300 MG / 12-01 not exceed l Codeine 13:35: 4gm/day of Herm ginger Phosphate acetaminop 30 MG Oral hen. (Same Tablet as: [Tylenol Tylenol with with Codeine #3] Codeine # 3) Acetaminoph No Notes: Do M emoria en 300 MG / 12-01 not exceed l Codeine 13:35: 4gm/day of Herm ginger Phosphate acetaminop 30 MG Oral hen. (Same Tablet as: [Tylenol Tylenol with with Codeine #3] Codeine # 3) glycopyrrol No Route: IV, Memoria ate (ANES) 11-30 Drug form: l 19:32: INJ, ONCE, Stop date: 11/30/17 14:32:00 CDT neostigmine No Route: IV, Memoria (ANES) 11-30 Drug form: l 19:32: INJ, ONCE, Stop date: 11/30/17 14:32:00 CDT ondansetron 0 No Route: IV, Memoria (ANES) 11-30 Drug form: l 19:32: INJ, ONCE, Stop date: 11/30/17 14:32:00 CDT glycopyrrol 0 No Route: IV, Memoria ate (ANES) 11-30 Drug form: l 19:32: INJ, ONCE, Stop date: 11/30/17 14:32:00 CDT neostigmine No Route: IV, Memoria (ANES) 11-30 Drug form: l 19:32: INJ, ONCE, Stop date: 11/30/17 14:32:00 CDT ondansetron 0 No Route: IV, Memoria (ANES) 11-30 Drug form: l 19:32: INJ, ONCE, Stop date: 11/30/17 14:32:00 CDT ePHEDrine 0 No Route: IV, Me moria (ANES) 11-30 Drug form: l 19:04: INJ, ONCE, Stop date: 11/30/17 14:04:00 CDT ePHEDrine 2017-0 No Route: IV, Me moria (ANES) 11-30 Drug form: l 19:04: INJ, ONCE, Stop date: 11/30/17 14:04:00 CDT fentaNYL 2017-0 No Route: IV, Mem oria (ANES) 11-30 Drug form: l 18:59: INJ, ONCE, Stop date: 11/30/17 13:59:00 CDT lidocaine 2017-0 No Route: IV, Me moria (ANES) 11-30 Drug form: l 18:59: INJ, ONCE, Stop date: 11/30/17 13:59:00 CDT morphine 2017-0 No Route: IV, Mem oria Sulfate 11-30 Drug form: l (ANES) 18:59: INJ, ONCE, Libby Stop date: 11/30/17 13:59:00 CDT midazolam 2017-0 No Route: IV, Me moria (ANES) 11-30 Drug form: l 18:59: SOLN, [place] 00 ONCE, Stop date: 11/30/17 13:59:00 CDT propofol 2018-0 No Route: IV, Mem oria (ANES) 11-30 Drug form: l 18:59: INJ, ONCE, [place] 00 Stop date: 11/30/17 13:59:00 CDT dexamethaso 2017-0 No Route: IV, Memoria ne (ANES) 11-30 Drug form: l 18:59: INJ, ONCE, [place] 00 Stop date: 11/30/17 13:59:00 CDT rocuronium 2017-0 No Route: IV, M emoria (ANES) 11-30 Drug form: l 18:59: INJ, ONCE, [place] 00 Stop date: 11/30/17 13:59:00 CDT fentaNYL 2018-0 No Route: IV, Mem oria (ANES) 11-30 Drug form: l 18:59: INJ, ONCE, Stop date: 11/30/17 13:59:00 CDT lidocaine 2018-0 No Route: IV, Me moria (ANES) 11-30 Drug form: l 18:59: INJ, ONCE, [place] 00 Stop date: 11/30/17 13:59:00 CDT morphine 2018-0 No Route: IV, Mem oria Sulfate 11-30 Drug form: l (ANES) 18:59: INJ, ONCE, [place] Stop date: 11/30/17 13:59:00 CDT midazolam 2018-0 No Route: IV, Me moria (ANES) 11-30 Drug form: l 18:59: SOLN, [place] 00 ONCE, Stop date: 11/30/17 13:59:00 CDT propofol 2018-0 No Route: IV, Mem oria (ANES) 11-30 Drug form: l 18:59: INJ, ONCE, [place] 00 Stop date: 11/30/17 13:59:00 CDT dexamethaso 2018-0 No Route: IV, Memoria ne (ANES) 11-30 Drug form: l 18:59: INJ, ONCE, [place] 00 Stop date: 11/30/17 13:59:00 CDT rocuronium 2018-0 No Route: IV, M emoria (ANES) 11-30 Drug form: l 18:59: INJ, ONCE, [place] 00 Stop date: 11/30/17 13:59:00 CDT Lactated No Route: IV, Mem oria Ringers 9-18 Total l Injection 17:44: Volume: Libby nn IV (ANES) 00 1,000, 1000 mL Start date: 11/30/17 12:44:00 CDT, Stop date: 11/30/17 13:44:00 CDT Lactated No Route: IV, Mem oria Ringers 9-18 Total l Injection 17:44: Volume: Libby nn IV (ANES) 00 1,000, 1000 mL Start date: 11/30/17 12:44:00 CDT, Stop date: 11/30/17 13:44:00 CDT Ondansetron No Notes: Carroll elise 11-30 (Same as: l 17:36: Zofran) MEDICATION WASTE Product Size: 4 mg Product Wasted: ___ mg Naloxone No Notes: Memoria 11-30 Same as l 17:36: Narcan Flumazenil No Notes: Memor ia 11-30 (Same as: l 17:36: Romazicon) Morphine No Notes: Memoria 11-30 (Same l 17:36: as:MORPhin e Sulfate) Hydromorpho No Notes: Carroll elise ne 11-30 Same as: l 17:36: Dilaudid Hydralazine No Notes: Carroll elise 11-30 (Same as: l 17:36: Apresoline ) Push over 5 minutes Metoprolol No Notes: Memor ia 11-30 (Same as: l 17:36: Lopressor) Push over 2 minutes Ondansetron No Notes: Carroll elise 11-30 (Same as: l 17:36: Zofran) [place] 00 MEDICATION WASTE Product Size: 4 mg Product Wasted: ___ mg Naloxone No Notes: Memoria 11-30 Same as l 17:36: Narcan Flumazenil No Notes: Memor ia 11-30 (Same as: l 17:36: Romazicon) Morphine No Notes: Memoria 11-30 (Same l 17:36: as:MORPhin e Sulfate) Hydromorpho No Notes: [place] elise ne 11-30 Same as: l 17:36: Dilaudid Hydralazine No Notes: Carroll elise 11-30 (Same as: l 17:36: Apresoline ) Push over 5 minutes Metoprolol No Notes: Memor ia 11-30 (Same as: l 17:36: Lopressor) Push over 2 minutes Calcium No 1,000 mL, Memor ia Chloride 11-30 Rate: 25 l 0.0014 17:33: ml/hr, [place] MEQ/ML / 00 Infuse Potassium over: 40 Chloride hr, Route: 0.004 IV, Dosing MEQ/ML / Weight 90 Sodium kg, Total Chloride Volume: 0.103 1,000, MEQ/ML / Start Sodium date: Lactate 11/30/17 0.028 12:33:00 MEQ/ML CDT, Stop Injectable date: Solution 12/01/17 9:57:00 CDT, 2.12, m2 Calcium No 1,000 mL, Memor ia Chloride 11-30 Rate: 25 l 0.0014 17:33: ml/hr, [place] MEQ/ML / 00 Infuse Potassium over: 40 Chloride hr, Route: 0.004 IV, Dosing MEQ/ML / Weight 90 Sodium kg, Total Chloride Volume: 0.103 1,000, MEQ/ML / Start Sodium date: Lactate 11/30/17 0.028 12:33:00 MEQ/ML CDT, Stop Injectable date: Solution 12/01/17 9:57:00 CDT, 2.12, m2 Lactated No 1,000 mL, Carroll elise Ringers IV 11-30 Rate: 40 l 1,000 mL 17:22: ml/hr, [place] 00 Infuse over: 25 hr, Route: IV, Dosing Weight 90 kg, Total Volume: 1,000, Start date: 11/30/17 12:22:00 CDT, Stop date: 12/01/17 9:57:00 CDT, 2.12, m2 Lactated No 1,000 mL, Carroll elise Ringers IV 11-30 Rate: 40 l 1,000 mL 17:22: ml/hr, [place] 00 Infuse over: 25 hr, Route: IV, Dosing Weight 90 kg, Total Volume: 1,000, Start date: 11/30/17 12:22:00 CDT, Stop date: 12/01/17 9:57:00 CDT, 2.12, m2 Pepcid No Notes: Memoria - (Same as: l 04:09: Pepcid) [place] 00 Can be dilute in 5-10cc NS IVP: Slow IV push over at least 2 minutes. Pepcid No Notes: Memoria 11-30 (Same as: l 04:09: Pepcid) [place] 00 Can be dilute in 5-10cc NS IVP: Slow IV push over at least 2 minutes. Buspar Yes 15 mg, PO, Memor ia 9-18 Daily, 0 l 03:34: Refill(s) lisinopril No 5 mg = 1 Mem oria 5 mg oral 9-18 tab, PO, l tablet 03:34: Daily, # [place] 00 30 tab, 0 Refill(s) Buspar 0 Yes 15 mg, PO, [facility] ia 9-18 Daily, 0 l 03:34: Refill(s) [place] 00 lisinopril No 5 mg = 1 Mem oria 5 mg oral 9-18 tab, PO, l tablet 03:34: Daily, # [place] 00 30 tab, 0 Refill(s) Aspirin No Notes: Memoria 9-17 Take with l 22:16: food. Aspirin No Notes: Memoria 9-17 Take with l 22:16: food. cefepime No Notes: [facility]oria - (Same As: l 22:00: Maxipime) MEDICATION WASTE Product Size: 1000 mg Product Wasted: ___ mg Bentyl No Notes: Memoria -17 (Same as: l 22:00: Bentyl) [place] cefepime No Notes: Memoria 9-17 (Same As: l 22:00: Maxipime) [place] MEDICATION WASTE Product Size: 1000 mg Product Wasted: ___ mg Bentyl No Notes: Memoria 9-17 (Same as: l 22:00: Bentyl) [place] 00 Calcium No Notes: [facility] Gluconate 11-29 WASTE: F/P l 21:06: - Sink; E [place] - [facility] Magnesium No Notes: Memori a Oxide 11-29 (Same as: l 21:06: Mag-Ox [place] 400) Magnesium oxide 716am=934v g elemental magnesium Dose=____m g magnesium oxide (___mg elemental magnesium) Magnesium No Notes: [facility]ori a Sulfate 11-29 WASTE: F/P l 21:06: - Sink; E [place] - [facility] Potassium No Notes: [facility]ori a Chloride - Infuse at l 21:06: a rate of [place] 00 10 mEq/hr. (Same as: KCL) potassium No Notes: Memori a phosphate-s - (Same as: l odium 21:06: Phos-NaK) [place] phosphate 00 Each 1.5 250 mg-280 gm pkt has mg-160 mg 250mg oral powder phosphorou for s. Mix reconstitut w/2.5oz ion water and stir. potassium No Notes: Memori a phosphate -17 (Same as: l 21:06: K [place] 00 Phosphate. ) Do not infuse phosphorou s concurrent ly in the same line as TPN or IVF that contains calcium. For double lumen central lines, phosphorou s may be infused in a separate lumen from TPN. 1 mMol phoshate has 1.47 mEq potassium Infuse over 4 hours sodium No Notes: Memoria phosphate 9-17 Infuse l 21:06: over 4 [place] 00 hour. Do not infuse phosphorou s concurrent ly in the same line as TPN or IVF that contains calcium. For double lumen central lines, phosphorou s may be infused in a separate lumen from TPN. Calcium No Notes: Memoria Gluconate 9-17 WASTE: F/P l 21:06: - Sink; E [place] - [facility] Trash Bin Magnesium No Notes: Memori a Oxide 11-29 (Same as: l 21:06: Mag-Ox [place] 00 400) Magnesium oxide 408gm=241j g elemental magnesium Dose=____m g magnesium oxide (___mg elemental magnesium) Magnesium No Notes: Memori a Sulfate 11-29 WASTE: F/P l 21:06: - Sink; E [place] - [facility] Trash [facility] Potassium No Notes: Memori a Chloride 11-29 Infuse at l 21:06: a rate of [place] 00 10 mEq/hr. (Same as: KCL) potassium No Notes: Memori a phosphate-s 11-29 (Same as: l odium 21:06: Phos-NaK) [place] phosphate 00 Each 1.5 250 mg-280 gm pkt has mg-160 mg 250mg oral powder phosphorou for s. Mix reconstitut w/2.5oz ion water and stir. potassium No Notes: Memori a phosphate 11-29 (Same as: l 21:06: K [place] 00 Phosphate. ) Do not infuse phosphorou s concurrent ly in the same line as TPN or IVF that contains calcium. For double lumen central lines, phosphorou s may be infused in a separate lumen from TPN. 1 mMol phoshate has 1.47 mEq potassium Infuse over 4 hours sodium No Notes: Memoria phosphate 11-29 Infuse l 21:06: over 4 [place] 00 hour. Do not infuse phosphorou s concurrent ly in the same line as TPN or IVF that contains calcium. For double lumen central lines, phosphorou s may be infused in a separate lumen from TPN. Docusate No Notes: Memoria Sodium 100 11-29 (Same as: l MG Oral 21:05: Colace) [place] Capsule (Do Not [Colace] Crush) Hydralazine No Notes: [place] elise 11-29 (Same as: l 21:05: Apresoline [place] ) Push over 5 minutes Morphine No Notes: Memoria - (Same l 21:05: as:MORPhin [place] 00 e Sulfate) Sodium No 1,000 mL, Memori a Chloride 11-29 Rate: 125 l 0.9% IV 21:05: ml/hr, [place] 1,000 mL 00 Infuse over: 8 hr, Route: IV, Dosing Weight 90.909 kg, Total Volume: 1,000, Start date: 11/29/17 16:05:00 CDT, Duration: 30 day, Stop date: 12/29/17 16:04:00 CDT, 2.13, m2 Ondansetron No Notes: [place] elise 11-29 (Same as: l 21:05: Zofran) [place] 00 MEDICATION WASTE Product Size: 4 mg Product Wasted: ___ mg Acetaminoph No Notes: Max Memoria en 11-29 acetaminop l 21:05: hen = [place] 00 4000mg/day (4 gm/day). (Same as: Tylenol) Alprazolam No Notes: Memor ia 0.25 MG 11-29 With food l Oral Tablet 21:05: or milk Her leigh [Xanax] 00 (Same as: Xanax) tramadol No Notes: Not Mem oria hydrochlori 11-29 to exceed l de 50 MG 21:05: 400mg/day. Her le[place] Oral Tablet 00 (Same As: Ultram) Gas-X Ultra No Notes: [place] elise Softgels 11-29 (Same as: l 21:05: Mylicon) [place] 00 Docusate No Notes: Memoria Sodium 100 11-29 (Same as: l MG Oral 21:05: Colace) [place] Capsule 00 (Do Not [Colace] Crush) Hydralazine No Notes: [place] elise -17 (Same as: l 21:05: Apresoline [place] 00 ) Push over 5 minutes Morphine No Notes: Memoria -17 (Same l 21:05: as:MORPhin [place] 00 e Sulfate) Sodium No 1,000 mL, Memori a Chloride 11-29 Rate: 125 l 0.9% IV 21:05: ml/hr, [place] 1,000 mL 00 Infuse over: 8 hr, Route: IV, Dosing Weight 90.909 kg, Total Volume: 1,000, Start date: 11/29/17 16:05:00 CDT, Duration: 30 day, Stop date: 12/29/17 16:04:00 CDT, 2.13, m2 Ondansetron No Notes: [place] elise 17 (Same as: l 21:05: Zofran) [place] 00 MEDICATION WASTE Product Size: 4 mg Product Wasted: ___ mg Acetaminoph No Notes: Max Memoria en 11-29 acetaminop l 21:05: hen = [place] 00 4000mg/day (4 gm/day). (Same as: Tylenol) Alprazolam No Notes: Memor ia 0.25 MG 11-29 With food l Oral Tablet 21:05: or milk Her leigh [Xanax] 00 (Same as: Xanax) tramadol No Notes: Not Mem oria hydrochlori 11-29 to exceed l de 50 MG 21:05: 400mg/day. Her le[place] Oral Tablet 00 (Same As: Ultram) Gas-X Ultra No Notes: [place] elise Softgels 11-29 (Same as: l 21:05: Mylicon) [place] 00 Protonix No Notes: Memoria 9-17 Tablet l 21:03: should not [place] 00 be chewed or crushed. (Same as: Protonix) Protonix No Notes: Memoria 9-17 Tablet l 21:03: should not [place] 00 be chewed or crushed. (Same as: Protonix) Flagyl No 500 mg, Memoria 917 Route: l 18:16: IVPB, [place] 00 ONCE, Dosing Weight 90.909, kg, Priority: STAT, Start date: 11/29/17 13:16:00 CDT, Stop date: 11/29/17 13:16:00 CDT, ABX Indication : Intra-abdo malena Infection Flagyl No 500 mg, Memoria 9-17 Route: l 18:16: IVPB, [place] 00 ONCE, Dosing Weight 90.909, kg, Priority: STAT, Start date: 11/29/17 13:16:00 CDT, Stop date: 11/29/17 13:16:00 CDT, ABX Indication : Intra-abdo malena Infection Zofran 2018-0 No 4 mg, Memoria 9-17 Route: l 18:00: IVP, Drug [place] 00 form: INJ, ONCE, Dosing Weight 90.909, kg, Priority: STAT, Start date: 11/29/17 13:00:00 CDT, Stop date: 11/29/17 13:00:00 CDT Morphine 2018-0 No 4 mg, Memoria 9-17 Route: l 18:00: IVP, ONCE, Dosing Weight 90.909, kg, Priority: STAT, Start date: 11/29/17 13:00:00 CDT, Stop date: 11/29/17 13:00:00 CDT Zofran 2018-0 No 4 mg, Memoria 9-17 Route: l 18:00: IVP, Drug form: INJ, ONCE, Dosing Weight 90.909, kg, Priority: STAT, Start date: 11/29/17 13:00:00 CDT, Stop date: 11/29/17 13:00:00 CDT Morphine 2018-0 No 4 mg, Memoria 9-17 Route: l 18:00: IVP, ONCE, Dosing Weight 90.909, kg, Priority: STAT, Start date: 11/29/17 13:00:00 CDT, Stop date: 11/29/17 13:00:00 CDT Saline No Notes: Memoria Flush 0.9% 9-17 (Same as: l 16:07: BD [place] Posiflush) Saline No Notes: [facility]oria Flush 0.9% 9-17 (Same as: l 16:07: BD [place] Posiflush) Lexapro No Notes: Memoria 9-17 (Same as: l 14:00: Lexapro) [place] Buspar No Notes: Memoria 9-17 (Same As: l 14:00: BuSpar) [place] Lexapro No Notes: Memoria 9-17 (Same as: l 14:00: Lexapro) [place] Buspar No Notes: Memoria 9-17 (Same As: l 14:00: BuSpar) quetiapine No Notes: Memor ia 9-16 (Same as: l 22:00: SEROquel) quetiapine No Notes: Memor ia 9-16 (Same as: l 22:00: SEROquel) Hydralazine No Notes: [place] elise Hydrochlori 9-16 (Same as: l de 25 MG 14:25: Apresoline [place] Oral Tablet 00 ) May interfere w/enteral feedings Take With Food Hydralazine No Notes: [place] elise Hydrochlori 9-16 (Same as: l de 25 MG 14:25: Apresoline [place] Oral Tablet 00 ) May interfere w/enteral feedings Take With Food Albuterol No Notes: SEE Me moria 0.83 MG/ML 9-16 RT l Inhalant 14:23: DOCUMENTAT [place] Solution 00 ION (Same as: Proventil) Kayexalate No Notes: Memor ia 9-16 (sodium l 14:23: polystyren [place] 00 e sulfonate 15 gm/60 ml DEE) Shake well before use. (Same as: Kayexalate , SPS) Albuterol No Notes: SEE Me moria 0.83 MG/ML 9-16 RT l Inhalant 14:23: DOCUMENTAT [place] Solution 00 ION (Same as: Proventil) Kayexalate No Notes: Memor ia 9-16 (sodium l 14:23: polystyren [place] 00 e sulfonate 15 gm/60 ml DEE) Shake well before use. (Same as: Kayexalate , SPS) quetiapine No Notes: Memor ia 9-16 (Same as: l 14:00: SEROquel) Escitalopra No Notes: [place] elise m 9-16 (Same as: l 14:00: Lexapro) quetiapine No Notes: Memor ia 9-16 (Same as: l 14:00: SEROquel) Escitalopra No Notes: [place] elise m 9-16 (Same as: l 14:00: Lexapro) cefepime 0 No Notes: Memoria 9-15 (Same As: l 20:00: Maxipime) MEDICATION WASTE Product Size: 1000 mg Product Wasted: ___ mg cefepime 0 No Notes: Memoria 9-15 (Same As: l 20:00: Maxipime) MEDICATION WASTE Product Size: 1000 mg Product Wasted: ___ mg quetiapine No 200 mg = 1 M emoria 200 MG Oral 9-15 tab, PO, l Tablet 19:53: Daily, in [place] [Seroquel] the morning, 0 Refill(s) quetiapine No 400 mg = 1 M emoria 400 MG Oral 9-15 tab, PO, l Tablet 19:53: Bedtime, 0 [facility] nn [Seroquel] Refill(s) Trazodone Yes 100 mg, Memor ia 9-15 PO, l 19:53: Bedtime, PRN Sleep, 0 Refill(s) Nexium No 40 mg, PO, Memor ia 9-15 Daily, 0 l 19:53: Refill(s) Lisinopril 0 No 5 mg, PO, Me moria 9-15 Daily, 0 l 19:53: Refill(s) Eliquis 0 No 5 mg, PO, Memor ia 9-15 BID, 0 l 19:53: Refill(s) Buspar 0 No 15 mg, PO, Memor ia 9-15 Daily, 0 l 19:53: Refill(s) Escitalopra No 20 mg = 1 M emoria m 20 MG 9-15 tab, PO, l Oral Tablet 19:53: Daily, 0 [facility] [Lexapro] Refill(s) quetiapine No 200 mg = 1 M emoria 200 MG Oral 9-15 tab, PO, l Tablet 19:53: Daily, in [place] [Seroquel] the morning, 0 Refill(s) quetiapine 2018-0 No 400 mg = 1 M emoria 400 MG Oral 9-15 tab, PO, l Tablet 19:53: Bedtime, 0 [place] [facility] [Seroquel] 00 Refill(s) Trazodone 2018-0 Yes 100 mg, Memor ia 9-15 PO, l 19:53: Bedtime, PRN Sleep, 0 Refill(s) Nexium 2018-0 No 40 mg, PO, Memor ia 9-15 Daily, 0 l 19:53: Refill(s) Lisinopril 2018-0 No 5 mg, PO, Me moria 9-15 Daily, 0 l 19:53: Refill(s) Eliquis 2018-0 No 5 mg, PO, Memor ia 9-15 BID, 0 l 19:53: Refill(s) Buspar 2017-0 No 15 mg, PO, Memor ia 9-15 Daily, 0 l 19:53: Refill(s) Escitalopra 2017-0 No 20 mg = 1 M emoria m 20 MG 9-15 tab, PO, l Oral Tablet 19:53: Daily, 0 [facility] [Lexapro] 00 Refill(s) Solu-Medrol 2017-0 No 60 mg, [place] elise 915 Route: l 19:03: IVP, Drug form: INJ, ONCE, Dosing Weight 92.443, kg, Priority: STAT, Start date: 11/27/17 14:03:00 CDT, Stop date: 11/27/17 14:03:00 CDT Benadryl 2018-0 No 25 mg, 1 Memor ia 9-15 tab, l 19:03: Route: PO, Drug form: TAB, Q8H, Dosing Weight 92.443, kg, PRN Allergic reaction, Priority: STAT, Start date: 11/27/17 14:03:00 CDT, Duration: 30 day, Stop date: 12/27/17 14:02:00 CDT Solu-Medrol 2017-0 No 60 mg, [place] elise 915 Route: l 19:03: IVP, Drug form: INJ, ONCE, Dosing Weight 92.443, kg, Priority: STAT, Start date: 11/27/17 14:03:00 CDT, Stop date: 11/27/17 14:03:00 CDT Benadryl 2017- No 25 mg, 1 Memor ia 9-15 tab, l 19:03: Route: PO, [place] 00 Drug form: TAB, Q8H, Dosing Weight 92.443, kg, PRN Allergic reaction, Priority: STAT, Start date: 11/27/17 14:03:00 CDT, Duration: 30 day, Stop date: 12/27/17 14:02:00 CDT Bentyl No Notes: Memoria 9-15 (Same as: l 18:00: Bentyl) [place] 00 Bentyl No Notes: Memoria 9-15 (Same as: l 18:00: Bentyl) [place] Alprazolam No Notes: Memor ia 0.25 MG -15 With food l Oral Tablet 17:37: or milk Her leigh [Xanax] 00 (Same as: Xanax) Gas-X Ultra No Notes: [place] elise Softgels -15 (Same as: l 17:37: Mylicon) [place] 00 Docusate No Notes: Memoria Sodium 100 -15 (Same as: l MG Oral 17:37: Colace) [place] Capsule 00 (Do Not [Colace] Crush) Hydralazine No /=90 Memori a 9-15 l 17:37: [place] 00 tramadol No Notes: Not Mem oria hydrochlori -15 to exceed l de 50 MG 17:37: 400mg/day. Her leigh Oral Tablet 00 (Same As: Ultram) Morphine No Notes: Memoria 9-15 (Same l 17:37: as:MORPhin [place] 00 e Sulfate) Sodium No 1,000 mL, Memori a Chloride -15 Rate: 125 l 0.9% IV 17:37: ml/hr, [place] 1,000 mL 00 Infuse over: 8 hr, Route: IV, Dosing Weight 92.443 kg, Total Volume: 1,000, Start date: 11/27/17 12:37:00 CDT, Duration: 30 day, Stop date: 12/27/17 12:36:00 CDT Ondansetron No Notes: [place] elise -15 (Same as: l 17:37: Zofran) [place] 00 MEDICATION WASTE Product Size: 4 mg Product Wasted: ___ mg Acetaminoph No Notes: Max Memoria en -15 acetaminop l 17:37: hen = [place] 00 4000mg/day (4 gm/day). (Same as: Tylenol) Alprazolam No Notes: Memor ia 0.25 MG 11-27 With food l Oral Tablet 17:37: or milk [place] [Xanax] 00 (Same as: Xanax) Gas-X Ultra No Notes: [place] elise Softgels 11-27 (Same as: l 17:37: Mylicon) [place] 00 Docusate No Notes: Memoria Sodium 100 11-27 (Same as: l MG Oral 17:37: Colace) [place] Capsule 00 (Do Not [Colace] Crush) Hydralazine No /=90 Memori a -15 l 17:37: [place] 00 tramadol No Notes: Not Mem oria hydrochlori 11-27 to exceed l de 50 MG 17:37: 400mg/day. [place] Oral Tablet 00 (Same As: Ultram) Morphine No Notes: Memoria -15 (Same l 17:37: as:MORPhin [place] 00 e Sulfate) Sodium No 1,000 mL, Memori a Chloride 11-27 Rate: 125 l 0.9% IV 17:37: ml/hr, [place] 1,000 mL 00 Infuse over: 8 hr, Route: IV, Dosing Weight 92.443 kg, Total Volume: 1,000, Start date: 11/27/17 12:37:00 CDT, Duration: 30 day, Stop date: 12/27/17 12:36:00 CDT Ondansetron No Notes: [place] elise -15 (Same as: l 17:37: Zofran) [place] 00 MEDICATION WASTE Product Size: 4 mg Product Wasted: ___ mg Acetaminoph No Notes: Max Memoria en -15 acetaminop l 17:37: hen = [place] 00 4000mg/day (4 gm/day). (Same as: Tylenol) Protonix No Notes: For Mem oria 9-15 IV push l 17:35: reconstitu [place] 00 te with 10 ml 0.9% sodium chloride and push over 2 minutes. (Same as: Protonix) Levaquin No Notes: Memoria 9-15 (Same l 17:35: as:Levaqui [place] 00 n) Protonix No Notes: For Mem oria 9-15 IV push l 17:35: reconstitu [place] 00 te with 10 ml 0.9% sodium chloride and push over 2 minutes. (Same as: Protonix) Levaquin No Notes: Memoria 9-15 (Same l 17:35: as:Levaqui [place] 00 n) Flagyl No Notes: Memoria 9-15 (Same as: l 17:30: Flagyl) [place] 00 Avoid alcohol. Cipro No Notes: Do Memoria 9-15 not l 17:30: refrigerat [place] 00 e Flagyl No Notes: Memoria 9-15 (Same as: l 17:30: Flagyl) [place] 00 Avoid alcohol. Cipro No Notes: Do Memoria 9-15 not l 17:30: refrigerat [place] 00 e Morphine 0 No 4 mg, Memoria 11-27 Route: l 16:33: IVP, ONCE, [place] Dosing Weight 92.443, kg, Priority: STAT, Start date: 11/27/17 11:33:00 CDT, Stop date: 11/27/17 11:33:00 CDT Morphine 0 No 4 mg, Memoria 11-27 Route: l 16:33: IVP, ONCE, [place] Dosing Weight 92.443, kg, Priority: STAT, Start date: 11/27/17 11:33:00 CDT, Stop date: 11/27/17 11:33:00 CDT Visipaque 2017-0 No 100 mL, Memor ia 320 mg/mL 11-27 Route: l injectable 12:59: IVP, [place] solution 00 Dosing Weight 92.443, kg, ONCALL, GFR </= 45 mL/min, STAT, Start date: 11/27/17 7:59:00 CDT, Duration: 1 doses or times Visipaque 2018-0 No 100 mL, Memor ia 320 mg/mL 11-27 Route: l injectable 12:59: IVP, [place] solution Dosing Weight 92.443, kg, ONCALL, GFR </= 45 mL/min, STAT, Start date: 11/27/17 7:59:00 CDT, Duration: 1 doses or times Zofran 2018-0 No 4 mg, Memoria 11-27 Route: l 11:21: IVP, Drug [place] form: INJ, ONCE, Dosing Weight 92.443, kg, Priority: STAT, Start date: 11/27/17 6:21:00 CDT, Stop date: 11/27/17 6:21:00 CDT Morphine 2018-0 No 4 mg, Memoria 11-27 Route: l 11:21: IVP, ONCE, [place] Dosing Weight 92.443, kg, Priority: STAT, Start date: 11/27/17 6:21:00 CDT, Stop date: 11/27/17 6:21:00 CDT Zofran 2018-0 No 4 mg, Memoria 11-27 Route: l 11:21: IVP, Drug [place] form: INJ, ONCE, Dosing Weight 92.443, kg, Priority: STAT, Start date: 11/27/17 6:21:00 CDT, Stop date: 11/27/17 6:21:00 CDT Morphine 2018-0 No 4 mg, Memoria 11-27 Route: l 11:21: IVP, ONCE, [place] 00 Dosing Weight 92.443, kg, Priority: STAT, Start date: 11/27/17 6:21:00 CDT, Stop date: 11/27/17 6:21:00 CDT Sodium 2018-0 No 1,000 mL, Memori a Chloride -15 1000 l 0.9% 08:53: ml/hr, [place] (Bolus) IV 00 Infuse Over: 1 hr, Route: IV, 1,000, Drug form: INJ, ONCE, Priority: STAT, Dosing Weight 92.443 kg, Start date: 11/27/17 3:53:00 CDT, Stop date: 11/27/17 3:53:00 CDT Sodium No 1,000 mL, Memori a Chloride 11-27 1000 l 0.9% 08:53: ml/hr, [place] (Bolus) IV 00 Infuse Over: 1 hr, Route: IV, 1,000, Drug form: INJ, ONCE, Priority: STAT, Dosing Weight 92.443 kg, Start date: 11/27/17 3:53:00 CDT, Stop date: 11/27/17 3:53:00 CDT Trazodone No Notes: Memori a 11-27 (Same As: l 05:07: Desyrel) [place] Trazodone No Notes: Memori a 15 (Same As: l 05:07: Desyrel) [place] 00 { No 1 tab, PO, Memoria (rivaroxaba 3-12 BID-Meals, l n 15 MG 05:34: Take 15 mg Herm ginger Oral Tablet 00 tablets [Xarelto]) twice / 9 daily with (rivaroxaba food for n 20 MG 21 days. Oral Tablet Beginning [Xarelto]) day } Pack 22,take [Xarelto one 20 mg Kit] tablet daily with food for the remainder of therapy., X 30 day, # 1 pkt, 0 Refill(s) { No 1 tab, PO, Memoria (rivaroxaba 3-12 BID-Meals, l n 15 MG 05:34: Take 15 mg Herm ginger Oral Tablet 00 tablets [Xarelto]) twice / 9 daily with (rivaroxaba food for n 20 MG 21 days. Oral Tablet Beginning [Xarelto]) day } Pack 22,take [Xarelto one 20 mg Kit] tablet daily with food for the remainder of therapy., X 30 day, # 1 pkt, 0 Refill(s) SEROquel SEROquel No 1{table BID SEROquel 400 MG 400 MG t} 400 MG Lexapro 20 Lexapro 20 No 1{table QD Lexapro 20 MG MG t} MG traZODone traZODone No 1{table BID traZODone HCl 100 MG HCl 100 MG t_at_be HCl 100 MG dtime} traMADol traMADol No 1{table QID traMADol HCl 50 MG HCl 50 MG t_as_ne HCl 50 MG eded} QUEtiapine QUEtiapine No QD QUEtiapine Fumarate Fumarate Fumarate 400 MG 400 MG 400 MG Ferrous Ferrous No 1{table BID Ferrous Sulfate 325 Sulfate 325 t} Sulfate (65 Fe) MG (65 Fe) MG 325 (65 Fe) MG Escitalopra Escitalopra No Escitalopr m Oxalate m Oxalate am Oxalate 20 MG 20 MG 20 MG Vitamin B12 Vitamin B12 No 1{table BID Vitamin 1000 MCG 1000 MCG t} B12 1000 MCG Eliquis 2.5 Eliquis 2.5 No Eliquis MG MG 2.5 MG busPIRone busPIRone No busPIRone HCl 5 MG HCl 5 MG HCl 5 MG Lisinopril Lisinopril No Lisinopril 5 MG 5 MG 5 MG Famotidine Famotidine No Famotidine 20 MG 20 MG 20 MG Rosuvastati Rosuvastati No Rosuvastat n Calcium n Calcium in Calcium 20 MG 20 MG 20 MG busPIRone busPIRone No busPIRone HCl 10 MG HCl 10 MG HCl 10 MG QUEtiapine QUEtiapine No QUEtiapine Fumarate Fumarate Fumarate 400 MG 400 MG 400 MG QUEtiapine QUEtiapine No QUEtiapine Fumarate Fumarate Fumarate 100 MG 100 MG 100 MG Lexapro 20 Lexapro 20 No 1{table QD Lexapro 20 MG MG t} MG traZODone traZODone No 1{table BID traZODone HCl 100 MG HCl 100 MG t_at_be HCl 100 MG dtime} SEROquel SEROquel No 1{table BID SEROquel 400 MG 400 MG t} 400 MG busPIRone busPIRone No busPIRone HCl 5 MG HCl 5 MG HCl 5 MG traMADol traMADol No 1{table QID traMADol HCl 50 MG HCl 50 MG t_as_ne HCl 50 MG eded} QUEtiapine QUEtiapine No QD QUEtiapine Fumarate Fumarate Fumarate 400 MG 400 MG 400 MG NexIUM 40 NexIUM 40 No 1{capsu QD NexIUM 40 MG MG le} MG Escitalopra Escitalopra No Escitalopr m Oxalate m Oxalate am Oxalate 20 MG 20 MG 20 MG Vitamin B12 Vitamin B12 No 1{table BID Vitamin 1000 MCG 1000 MCG t} B12 1000 MCG Eliquis 2.5 Eliquis 2.5 No Eliquis MG MG 2.5 MG Lisinopril Lisinopril No Lisinopril 5 MG 5 MG 5 MG Ferrous Ferrous No 1{table BID Ferrous Sulfate 325 Sulfate 325 t} Sulfate (65 Fe) MG (65 Fe) MG 325 (65 Fe) MG Famotidine Famotidine No Famotidine 20 MG 20 MG 20 MG Rosuvastati Rosuvastati No Rosuvastat n Calcium n Calcium in Calcium 20 MG 20 MG 20 MG busPIRone busPIRone No busPIRone HCl 10 MG HCl 10 MG HCl 10 MG QUEtiapine QUEtiapine No QUEtiapine Fumarate Fumarate Fumarate 400 MG 400 MG 400 MG QUEtiapine QUEtiapine No QUEtiapine Fumarate Fumarate Fumarate 100 MG 100 MG 100 MG Lexapro 20 Lexapro 20 No 1{table QD Lexapro 20 MG MG t} MG traZODone traZODone No 1{table BID traZODone HCl 100 MG HCl 100 MG t_at_be HCl 100 MG dtime} SEROquel SEROquel No 1{table BID SEROquel 400 MG 400 MG t} 400 MG busPIRone busPIRone No busPIRone HCl 5 MG HCl 5 MG HCl 5 MG traMADol traMADol No 1{table QID traMADol HCl 50 MG HCl 50 MG t_as_ne HCl 50 MG eded} QUEtiapine QUEtiapine No QD QUEtiapine Fumarate Fumarate Fumarate 400 MG 400 MG 400 MG NexIUM 40 NexIUM 40 No 1{capsu QD NexIUM 40 MG MG le} MG Escitalopra Escitalopra No Escitalopr m Oxalate m Oxalate am Oxalate 20 MG 20 MG 20 MG Vitamin B12 Vitamin B12 No 1{table BID Vitamin 1000 MCG 1000 MCG t} B12 1000 MCG Eliquis 2.5 Eliquis 2.5 No Eliquis MG MG 2.5 MG Lisinopril Lisinopril No Lisinopril 5 MG 5 MG 5 MG Ferrous Ferrous No 1{table BID Ferrous Sulfate 325 Sulfate 325 t} Sulfate (65 Fe) MG (65 Fe) MG 325 (65 Fe) MG Famotidine Famotidine No Famotidine 20 MG 20 MG 20 MG busPIRone busPIRone No QD busPIRone HCl 5 MG HCl 5 MG HCl 5 MG Ferrous Ferrous No 1{table BID Ferrous Sulfate 325 Sulfate 325 t} Sulfate (65 Fe) MG (65 Fe) MG 325 (65 Fe) MG SEROquel SEROquel No 1{table BID SEROquel 400 MG 400 MG t} 400 MG QUEtiapine QUEtiapine No QD QUEtiapine Fumarate Fumarate Fumarate 400 MG 400 MG 400 MG Famotidine Famotidine No Famotidine 20 MG 20 MG 20 MG busPIRone busPIRone No busPIRone HCl 10 MG HCl 10 MG HCl 10 MG Lexapro 20 Lexapro 20 No 1{table QD Lexapro 20 MG MG t} MG NexIUM 40 NexIUM 40 No 1{capsu QD NexIUM 40 MG MG le} MG Eliquis 2.5 Eliquis 2.5 No Eliquis MG MG 2.5 MG Rosuvastati Rosuvastati No Rosuvastat n Calcium n Calcium in Calcium 20 MG 20 MG 20 MG Famotidine Famotidine No 1{table QD Famotidine 20 MG 20 MG t_at_be 20 MG dtime_a s_neede d} busPIRone busPIRone No QD busPIRone HCl 10 MG HCl 10 MG HCl 10 MG traZODone traZODone No 1{table BID traZODone HCl 100 MG HCl 100 MG t_at_be HCl 100 MG dtime} QUEtiapine QUEtiapine No QUEtiapine Fumarate Fumarate Fumarate 400 MG 400 MG 400 MG traMADol traMADol No 1{table QID traMADol HCl 50 MG HCl 50 MG t_as_ne HCl 50 MG eded} Escitalopra Escitalopra No Escitalopr m Oxalate m Oxalate am Oxalate 20 MG 20 MG 20 MG QUEtiapine QUEtiapine No QD QUEtiapine Fumarate Fumarate Fumarate 100 MG 100 MG 100 MG busPIRone busPIRone No busPIRone HCl 5 MG HCl 5 MG HCl 5 MG Eliquis 2.5 Eliquis 2.5 No 1{table QD Eliquis MG MG t} 2.5 MG Lisinopril Lisinopril No Lisinopril 5 MG 5 MG 5 MG QUEtiapine QUEtiapine No QUEtiapine Fumarate Fumarate Fumarate 100 MG 100 MG 100 MG Vitamin B12 Vitamin B12 No 1{table BID Vitamin 1000 MCG 1000 MCG t} B12 1000 MCG Famotidine Famotidine No Famotidine 20 MG 20 MG 20 MG busPIRone busPIRone No QD busPIRone HCl 5 MG HCl 5 MG HCl 5 MG Lexapro 20 Lexapro 20 No 1{table QD Lexapro 20 MG MG t} MG busPIRone busPIRone No QD busPIRone HCl 10 MG HCl 10 MG HCl 10 MG SEROquel SEROquel No 1{table BID SEROquel 400 MG 400 MG t} 400 MG traZODone traZODone No 1{table BID traZODone HCl 100 MG HCl 100 MG t_at_be HCl 100 MG dtime} busPIRone busPIRone No busPIRone HCl 5 MG HCl 5 MG HCl 5 MG Eliquis 2.5 Eliquis 2.5 No Eliquis MG MG 2.5 MG busPIRone busPIRone No busPIRone HCl 10 MG HCl 10 MG HCl 10 MG NexIUM 40 NexIUM 40 No 1{capsu QD NexIUM 40 MG MG le} MG QUEtiapine QUEtiapine No QD QUEtiapine Fumarate Fumarate Fumarate 100 MG 100 MG 100 MG Famotidine Famotidine No 1{table QD Famotidine 20 MG 20 MG t_at_be 20 MG dtime_a s_neede d} QUEtiapine QUEtiapine No QUEtiapine Fumarate Fumarate Fumarate 100 MG 100 MG 100 MG Vitamin B12 Vitamin B12 No 1{table BID Vitamin 1000 MCG 1000 MCG t} B12 1000 MCG Eliquis 2.5 Eliquis 2.5 No 1{table QD Eliquis MG MG t} 2.5 MG QUEtiapine QUEtiapine No QD QUEtiapine Fumarate Fumarate Fumarate 400 MG 400 MG 400 MG QUEtiapine QUEtiapine No QUEtiapine Fumarate Fumarate Fumarate 400 MG 400 MG 400 MG traMADol traMADol No 1{table QID traMADol HCl 50 MG HCl 50 MG t_as_ne HCl 50 MG eded} Lisinopril Lisinopril No 1{table QD Lisinopril 5 MG 5 MG t} 5 MG Rosuvastati Rosuvastati No Rosuvastat n Calcium n Calcium in Calcium 20 MG 20 MG 20 MG Escitalopra Escitalopra No Escitalopr m Oxalate m Oxalate am Oxalate 20 MG 20 MG 20 MG Ferrous Ferrous No 1{table BID Ferrous Sulfate 325 Sulfate 325 t} Sulfate (65 Fe) MG (65 Fe) MG 325 (65 Fe) MG Famotidine Famotidine No Famotidine 20 MG 20 MG 20 MG busPIRone busPIRone No QD busPIRone HCl 5 MG HCl 5 MG HCl 5 MG Lexapro 20 Lexapro 20 No 1{table QD Lexapro 20 MG MG t} MG busPIRone busPIRone No QD busPIRone HCl 10 MG HCl 10 MG HCl 10 MG SEROquel SEROquel No 1{table BID SEROquel 400 MG 400 MG t} 400 MG traZODone traZODone No 1{table BID traZODone HCl 100 MG HCl 100 MG t_at_be HCl 100 MG dtime} busPIRone busPIRone No busPIRone HCl 5 MG HCl 5 MG HCl 5 MG Eliquis 2.5 Eliquis 2.5 No Eliquis MG MG 2.5 MG busPIRone busPIRone No busPIRone HCl 10 MG HCl 10 MG HCl 10 MG NexIUM 40 NexIUM 40 No 1{capsu QD NexIUM 40 MG MG le} MG QUEtiapine QUEtiapine No QD QUEtiapine Fumarate Fumarate Fumarate 100 MG 100 MG 100 MG Famotidine Famotidine No 1{table QD Famotidine 20 MG 20 MG t_at_be 20 MG dtime_a s_neede d} QUEtiapine QUEtiapine No QUEtiapine Fumarate Fumarate Fumarate 100 MG 100 MG 100 MG Vitamin B12 Vitamin B12 No 1{table BID Vitamin 1000 MCG 1000 MCG t} B12 1000 MCG Eliquis 2.5 Eliquis 2.5 No 1{table QD Eliquis MG MG t} 2.5 MG QUEtiapine QUEtiapine No QD QUEtiapine Fumarate Fumarate Fumarate 400 MG 400 MG 400 MG QUEtiapine QUEtiapine No QUEtiapine Fumarate Fumarate Fumarate 400 MG 400 MG 400 MG traMADol traMADol No 1{table QID traMADol HCl 50 MG HCl 50 MG t_as_ne HCl 50 MG eded} Lisinopril Lisinopril No 1{table QD Lisinopril 5 MG 5 MG t} 5 MG Rosuvastati Rosuvastati No Rosuvastat n Calcium n Calcium in Calcium 20 MG 20 MG 20 MG Escitalopra Escitalopra No Escitalopr m Oxalate m Oxalate am Oxalate 20 MG 20 MG 20 MG Ferrous Ferrous No 1{table BID Ferrous Sulfate 325 Sulfate 325 t} Sulfate (65 Fe) MG (65 Fe) MG 325 (65 Fe) MG busPIRone busPIRone No busPIRone HCl 5 MG HCl 5 MG HCl 5 MG Lexapro 20 Lexapro 20 No 1{table QD Lexapro 20 MG MG t} MG QUEtiapine QUEtiapine No QUEtiapine Fumarate Fumarate Fumarate 400 MG 400 MG 400 MG busPIRone busPIRone No QD busPIRone HCl 10 MG HCl 10 MG HCl 10 MG traMADol traMADol No 1{table QID traMADol HCl 50 MG HCl 50 MG t_as_ne HCl 50 MG eded} busPIRone busPIRone No busPIRone HCl 10 MG HCl 10 MG HCl 10 MG Lisinopril Lisinopril No 1{table QD Lisinopril 5 MG 5 MG t} 5 MG NexIUM 40 NexIUM 40 No 1{capsu QD NexIUM 40 MG MG le} MG Escitalopra Escitalopra No Escitalopr m Oxalate m Oxalate am Oxalate 20 MG 20 MG 20 MG Eliquis 2.5 Eliquis 2.5 No Eliquis MG MG 2.5 MG Vitamin B12 Vitamin B12 No 1{table BID Vitamin 1000 MCG 1000 MCG t} B12 1000 MCG QUEtiapine QUEtiapine No QD QUEtiapine Fumarate Fumarate Fumarate 100 MG 100 MG 100 MG traZODone traZODone No 1{table BID traZODone HCl 100 MG HCl 100 MG t_at_be HCl 100 MG dtime} busPIRone busPIRone No QD busPIRone HCl 5 MG HCl 5 MG HCl 5 MG QUEtiapine QUEtiapine No QUEtiapine Fumarate Fumarate Fumarate 100 MG 100 MG 100 MG Ferrous Ferrous No 1{table BID Ferrous Sulfate 325 Sulfate 325 t} Sulfate (65 Fe) MG (65 Fe) MG 325 (65 Fe) MG Famotidine Famotidine No Famotidine 20 MG 20 MG 20 MG Rosuvastati Rosuvastati No Rosuvastat n Calcium n Calcium in Calcium 20 MG 20 MG 20 MG SEROquel SEROquel No 1{table BID SEROquel 400 MG 400 MG t} 400 MG busPIRone busPIRone No busPIRone HCl 5 MG HCl 5 MG HCl 5 MG Eliquis 2.5 Eliquis 2.5 No Eliquis MG MG 2.5 MG busPIRone busPIRone No QD busPIRone HCl 5 MG HCl 5 MG HCl 5 MG Rosuvastati Rosuvastati No QD Rosuvastat n Calcium n Calcium in Calcium 20 MG 20 MG 20 MG traMADol traMADol No 1{table QID traMADol HCl 50 MG HCl 50 MG t_as_ne HCl 50 MG eded} QUEtiapine QUEtiapine No QUEtiapine Fumarate Fumarate Fumarate 100 MG 100 MG 100 MG Lexapro 20 Lexapro 20 No 1{table QD Lexapro 20 MG MG t} MG busPIRone busPIRone No busPIRone HCl 10 MG HCl 10 MG HCl 10 MG traZODone traZODone No 1{table BID traZODone HCl 100 MG HCl 100 MG t_at_be HCl 100 MG dtime} Escitalopra Escitalopra No Escitalopr m Oxalate m Oxalate am Oxalate 20 MG 20 MG 20 MG Vitamin B12 Vitamin B12 No 1{table BID Vitamin 1000 MCG 1000 MCG t} B12 1000 MCG Lisinopril Lisinopril No 1{table QD Lisinopril 5 MG 5 MG t} 5 MG QUEtiapine QUEtiapine No QUEtiapine Fumarate Fumarate Fumarate 400 MG 400 MG 400 MG Ferrous Ferrous No 1{table BID Ferrous Sulfate 325 Sulfate 325 t} Sulfate (65 Fe) MG (65 Fe) MG 325 (65 Fe) MG QUEtiapine QUEtiapine No QD QUEtiapine Fumarate Fumarate Fumarate 100 MG 100 MG 100 MG busPIRone busPIRone No QD busPIRone HCl 10 MG HCl 10 MG HCl 10 MG NexIUM 40 NexIUM 40 No 1{capsu QD NexIUM 40 MG MG le} MG Famotidine Famotidine No Famotidine 20 MG 20 MG 20 MG SEROquel SEROquel No 1{table BID SEROquel 400 MG 400 MG t} 400 MG QUEtiapine QUEtiapine No QUEtiapine Fumarate Fumarate Fumarate 100 MG 100 MG 100 MG busPIRone busPIRone No QD busPIRone HCl 10 MG HCl 10 MG HCl 10 MG traZODone traZODone No 1{table BID traZODone HCl 100 MG HCl 100 MG t_at_be HCl 100 MG dtime} busPIRone busPIRone No busPIRone HCl 10 MG HCl 10 MG HCl 10 MG SEROquel SEROquel No 1{table QD SEROquel 100 MG 100 MG t_at_be 100 MG dtime} Ferrous Ferrous No 1{table BID Ferrous Sulfate 325 Sulfate 325 t} Sulfate (65 Fe) MG (65 Fe) MG 325 (65 Fe) MG QUEtiapine QUEtiapine No QD QUEtiapine Fumarate Fumarate Fumarate 100 MG 100 MG 100 MG NexIUM 40 NexIUM 40 No 1{capsu QD NexIUM 40 MG MG le} MG Eliquis 2.5 Eliquis 2.5 No Eliquis MG MG 2.5 MG Famotidine Famotidine No Famotidine 20 MG 20 MG 20 MG SEROquel SEROquel No 1{table BID SEROquel 400 MG 400 MG t} 400 MG QUEtiapine QUEtiapine No QD QUEtiapine Fumarate Fumarate Fumarate 400 MG 400 MG 400 MG Lexapro 20 Lexapro 20 No 1{table QD Lexapro 20 MG MG t} MG QUEtiapine QUEtiapine No QUEtiapine Fumarate Fumarate Fumarate 400 MG 400 MG 400 MG busPIRone busPIRone No QD busPIRone HCl 5 MG HCl 5 MG HCl 5 MG traMADol traMADol No 1{table QID traMADol HCl 50 MG HCl 50 MG t_as_ne HCl 50 MG eded} Escitalopra Escitalopra No Escitalopr m Oxalate m Oxalate am Oxalate 20 MG 20 MG 20 MG Rosuvastati Rosuvastati No QD Rosuvastat n Calcium n Calcium in Calcium 20 MG 20 MG 20 MG Vitamin B12 Vitamin B12 No 1{table BID Vitamin 1000 MCG 1000 MCG t} B12 1000 MCG Lisinopril Lisinopril No 1{table QD Lisinopril 5 MG 5 MG t} 5 MG Eliquis 2.5 Eliquis 2.5 No 1{table QD Eliquis MG MG t} 2.5 MG Famotidine Famotidine No 1{table QD Famotidine 20 MG 20 MG t_at_be 20 MG dtime_a s_neede d} busPIRone busPIRone No busPIRone HCl 5 MG HCl 5 MG HCl 5 MG QUEtiapine QUEtiapine No QUEtiapine Fumarate Fumarate Fumarate 100 MG 100 MG 100 MG busPIRone busPIRone No QD busPIRone HCl 10 MG HCl 10 MG HCl 10 MG traZODone traZODone No 1{table BID traZODone HCl 100 MG HCl 100 MG t_at_be HCl 100 MG dtime} busPIRone busPIRone No busPIRone HCl 10 MG HCl 10 MG HCl 10 MG SEROquel SEROquel No 1{table QD SEROquel 100 MG 100 MG t_at_be 100 MG dtime} Ferrous Ferrous No 1{table BID Ferrous Sulfate 325 Sulfate 325 t} Sulfate (65 Fe) MG (65 Fe) MG 325 (65 Fe) MG QUEtiapine QUEtiapine No QD QUEtiapine Fumarate Fumarate Fumarate 100 MG 100 MG 100 MG NexIUM 40 NexIUM 40 No 1{capsu QD NexIUM 40 MG MG le} MG Eliquis 2.5 Eliquis 2.5 No Eliquis MG MG 2.5 MG Famotidine Famotidine No Famotidine 20 MG 20 MG 20 MG SEROquel SEROquel No 1{table BID SEROquel 400 MG 400 MG t} 400 MG QUEtiapine QUEtiapine No QD QUEtiapine Fumarate Fumarate Fumarate 400 MG 400 MG 400 MG Lexapro 20 Lexapro 20 No 1{table QD Lexapro 20 MG MG t} MG QUEtiapine QUEtiapine No QUEtiapine Fumarate Fumarate Fumarate 400 MG 400 MG 400 MG busPIRone busPIRone No QD busPIRone HCl 5 MG HCl 5 MG HCl 5 MG traMADol traMADol No 1{table QID traMADol HCl 50 MG HCl 50 MG t_as_ne HCl 50 MG eded} Escitalopra Escitalopra No Escitalopr m Oxalate m Oxalate am Oxalate 20 MG 20 MG 20 MG Rosuvastati Rosuvastati No QD Rosuvastat n Calcium n Calcium in Calcium 20 MG 20 MG 20 MG Vitamin B12 Vitamin B12 No 1{table BID Vitamin 1000 MCG 1000 MCG t} B12 1000 MCG Lisinopril Lisinopril No 1{table QD Lisinopril 5 MG 5 MG t} 5 MG Eliquis 2.5 Eliquis 2.5 No 1{table QD Eliquis MG MG t} 2.5 MG Famotidine Famotidine No 1{table QD Famotidine 20 MG 20 MG t_at_be 20 MG dtime_a s_neede d} busPIRone busPIRone No busPIRone HCl 5 MG HCl 5 MG HCl 5 MG busPIRone busPIRone No busPIRone HCl 10 MG HCl 10 MG HCl 10 MG Ferrous Ferrous No 1{table BID Ferrous Sulfate 325 Sulfate 325 t} Sulfate (65 Fe) MG (65 Fe) MG 325 (65 Fe) MG QUEtiapine QUEtiapine No QUEtiapine Fumarate Fumarate Fumarate 400 MG 400 MG 400 MG Lexapro 20 Lexapro 20 No 1{table QD Lexapro 20 MG MG t} MG NexIUM 40 NexIUM 40 No 1{capsu QD NexIUM 40 MG MG le} MG Famotidine Famotidine No Famotidine 20 MG 20 MG 20 MG Vitamin B12 Vitamin B12 No 1{table BID Vitamin 1000 MCG 1000 MCG t} B12 1000 MCG SEROquel SEROquel No 1{table BID SEROquel 400 MG 400 MG t} 400 MG Eliquis 2.5 Eliquis 2.5 No Eliquis MG MG 2.5 MG Eliquis 2.5 Eliquis 2.5 No 1{table QD Eliquis MG MG t} 2.5 MG busPIRone busPIRone No QD busPIRone HCl 5 MG HCl 5 MG HCl 5 MG Rosuvastati Rosuvastati No QD Rosuvastat n Calcium n Calcium in Calcium 20 MG 20 MG 20 MG QUEtiapine QUEtiapine No QD QUEtiapine Fumarate Fumarate Fumarate 100 MG 100 MG 100 MG busPIRone busPIRone No QD busPIRone HCl 10 MG HCl 10 MG HCl 10 MG Lisinopril Lisinopril No 1{table QD Lisinopril 5 MG 5 MG t} 5 MG SEROquel SEROquel No 1{table QD SEROquel 100 MG 100 MG t_at_be 100 MG dtime} busPIRone busPIRone No busPIRone HCl 5 MG HCl 5 MG HCl 5 MG traMADol traMADol No 1{table QID traMADol HCl 50 MG HCl 50 MG t_as_ne HCl 50 MG eded} traZODone traZODone No 1{table BID traZODone HCl 100 MG HCl 100 MG t_at_be HCl 100 MG dtime} Famotidine Famotidine No 1{table QD Famotidine 20 MG 20 MG t_at_be 20 MG dtime_a s_neede d} Escitalopra Escitalopra No Escitalopr m Oxalate m Oxalate am Oxalate 20 MG 20 MG 20 MG QUEtiapine QUEtiapine No QUEtiapine Fumarate Fumarate Fumarate 100 MG 100 MG 100 MG busPIRone busPIRone No busPIRone HCl 5 MG HCl 5 MG HCl 5 MG Eliquis 2.5 Eliquis 2.5 No Eliquis MG MG 2.5 MG busPIRone busPIRone No QD busPIRone HCl 5 MG HCl 5 MG HCl 5 MG Rosuvastati Rosuvastati No QD Rosuvastat n Calcium n Calcium in Calcium 20 MG 20 MG 20 MG traMADol traMADol No 1{table QID traMADol HCl 50 MG HCl 50 MG t_as_ne HCl 50 MG eded} QUEtiapine QUEtiapine No QUEtiapine Fumarate Fumarate Fumarate 100 MG 100 MG 100 MG Lexapro 20 Lexapro 20 No 1{table QD Lexapro 20 MG MG t} MG busPIRone busPIRone No busPIRone HCl 10 MG HCl 10 MG HCl 10 MG traZODone traZODone No 1{table BID traZODone HCl 100 MG HCl 100 MG t_at_be HCl 100 MG dtime} Escitalopra Escitalopra No Escitalopr m Oxalate m Oxalate am Oxalate 20 MG 20 MG 20 MG Vitamin B12 Vitamin B12 No 1{table BID Vitamin 1000 MCG 1000 MCG t} B12 1000 MCG Lisinopril Lisinopril No 1{table QD Lisinopril 5 MG 5 MG t} 5 MG QUEtiapine QUEtiapine No QUEtiapine Fumarate Fumarate Fumarate 400 MG 400 MG 400 MG Ferrous Ferrous No 1{table BID Ferrous Sulfate 325 Sulfate 325 t} Sulfate (65 Fe) MG (65 Fe) MG 325 (65 Fe) MG QUEtiapine QUEtiapine No QD QUEtiapine Fumarate Fumarate Fumarate 100 MG 100 MG 100 MG busPIRone busPIRone No QD busPIRone HCl 10 MG HCl 10 MG HCl 10 MG NexIUM 40 NexIUM 40 No 1{capsu QD NexIUM 40 MG MG le} MG Famotidine Famotidine No Famotidine 20 MG 20 MG 20 MG SEROquel SEROquel No 1{table BID SEROquel 400 MG 400 MG t} 400 MG Lisinopril Lisinopril Yes James 1 tablet Common [facility] Nexium Nexium Yes James 1 capsule Comm on [facility] QUEtiapine QUEtiapine No QUEtiapine Fumarate Fumarate Fumarate 100 MG 100 MG 100 MG busPIRone busPIRone No QD busPIRone HCl 10 MG HCl 10 MG HCl 10 MG traZODone traZODone No 1{table BID traZODone HCl 100 MG HCl 100 MG t_at_be HCl 100 MG dtime} busPIRone busPIRone No busPIRone HCl 10 MG HCl 10 MG HCl 10 MG SEROquel SEROquel No 1{table QD SEROquel 100 MG 100 MG t_at_be 100 MG dtime} Ferrous Ferrous No 1{table BID Ferrous Sulfate 325 Sulfate 325 t} Sulfate (65 Fe) MG (65 Fe) MG 325 (65 Fe) MG QUEtiapine QUEtiapine No QD QUEtiapine Fumarate Fumarate Fumarate 100 MG 100 MG 100 MG NexIUM 40 NexIUM 40 No 1{capsu QD NexIUM 40 MG MG le} MG Eliquis 2.5 Eliquis 2.5 No Eliquis MG MG 2.5 MG Famotidine Famotidine No Famotidine 20 MG 20 MG 20 MG SEROquel SEROquel No 1{table BID SEROquel 400 MG 400 MG t} 400 MG QUEtiapine QUEtiapine No QD QUEtiapine Fumarate Fumarate Fumarate 400 MG 400 MG 400 MG Lexapro 20 Lexapro 20 No 1{table QD Lexapro 20 MG MG t} MG QUEtiapine QUEtiapine No QUEtiapine Fumarate Fumarate Fumarate 400 MG 400 MG 400 MG busPIRone busPIRone No QD busPIRone HCl 5 MG HCl 5 MG HCl 5 MG traMADol traMADol No 1{table QID traMADol HCl 50 MG HCl 50 MG t_as_ne HCl 50 MG eded} Escitalopra Escitalopra No Escitalopr m Oxalate m Oxalate am Oxalate 20 MG 20 MG 20 MG Rosuvastati Rosuvastati No QD Rosuvastat n Calcium n Calcium in Calcium 20 MG 20 MG 20 MG Vitamin B12 Vitamin B12 No 1{table BID Vitamin 1000 MCG 1000 MCG t} B12 1000 MCG Lisinopril Lisinopril No 1{table QD Lisinopril 5 MG 5 MG t} 5 MG Eliquis 2.5 Eliquis 2.5 No 1{table QD Eliquis MG MG t} 2.5 MG Famotidine Famotidine No 1{table QD Famotidine 20 MG 20 MG t_at_be 20 MG dtime_a s_neede d} busPIRone busPIRone No busPIRone HCl 5 MG HCl 5 MG HCl 5 MG Vitamin B12 Vitamin B12 No 1{table BID Vitamin 1000 MCG 1000 MCG t} B12 1000 MCG Ferrous Ferrous No 1{table BID Ferrous Sulfate 325 Sulfate 325 t} Sulfate (65 Fe) MG (65 Fe) MG 325 (65 Fe) MG QUEtiapine QUEtiapine No QD QUEtiapine Fumarate Fumarate Fumarate 100 MG 100 MG 100 MG traMADol traMADol No 1{table QID traMADol HCl 50 MG HCl 50 MG t_as_ne HCl 50 MG eded} Famotidine Famotidine No 1{table QD Famotidine 20 MG 20 MG t_at_be 20 MG dtime_a s_neede d} SEROquel SEROquel No 1{table BID SEROquel 400 MG 400 MG t} 400 MG traZODone traZODone No 1{table BID traZODone HCl 100 MG HCl 100 MG t_at_be HCl 100 MG dtime} Lexapro 20 Lexapro 20 No 1{table QD Lexapro 20 MG MG t} MG Eliquis 2.5 Eliquis 2.5 No 1{table QD Eliquis MG MG t} 2.5 MG NexIUM 40 NexIUM 40 No 1{capsu QD NexIUM 40 MG MG le} MG busPIRone busPIRone No QD busPIRone HCl 5 MG HCl 5 MG HCl 5 MG QUEtiapine QUEtiapine No QD QUEtiapine Fumarate Fumarate Fumarate 400 MG 400 MG 400 MG Rosuvastati Rosuvastati No Rosuvastat n Calcium n Calcium in Calcium 20 MG 20 MG 20 MG Lisinopril Lisinopril No 1{table QD Lisinopril 5 MG 5 MG t} 5 MG busPIRone busPIRone No QD busPIRone HCl 10 MG HCl 10 MG HCl 10 MG Vitamin B12 Vitamin B12 No 1{table BID Vitamin 1000 MCG 1000 MCG t} B12 1000 MCG busPIRone busPIRone No QD busPIRone HCl 5 MG HCl 5 MG HCl 5 MG Rosuvastati Rosuvastati No Rosuvastat n Calcium n Calcium in Calcium 20 MG 20 MG 20 MG Famotidine Famotidine No 1{table QD Famotidine 20 MG 20 MG t_at_be 20 MG dtime_a s_neede d} Lisinopril Lisinopril No 1{table QD Lisinopril 5 MG 5 MG t} 5 MG QUEtiapine QUEtiapine No QD QUEtiapine Fumarate Fumarate Fumarate 100 MG 100 MG 100 MG busPIRone busPIRone No QD busPIRone HCl 10 MG HCl 10 MG HCl 10 MG SEROquel SEROquel No 1{table BID SEROquel 400 MG 400 MG t} 400 MG NexIUM 40 NexIUM 40 No 1{capsu QD NexIUM 40 MG MG le} MG Eliquis 2.5 Eliquis 2.5 No 1{table QD Eliquis MG MG t} 2.5 MG traMADol traMADol No 1{table QID traMADol HCl 50 MG HCl 50 MG t_as_ne HCl 50 MG eded} traZODone traZODone No 1{table BID traZODone HCl 100 MG HCl 100 MG t_at_be HCl 100 MG dtime} QUEtiapine QUEtiapine No QD QUEtiapine Fumarate Fumarate Fumarate 400 MG 400 MG 400 MG Lexapro 20 Lexapro 20 No 1{table QD Lexapro 20 MG MG t} MG Ferrous Ferrous No 1{table BID Ferrous Sulfate 325 Sulfate 325 t} Sulfate (65 Fe) MG (65 Fe) MG 325 (65 Fe) MG Eliquis 2.5 Eliquis 2.5 No 1{table QD Eliquis MG MG t} 2.5 MG SEROquel SEROquel No 1{table BID SEROquel 400 MG 400 MG t} 400 MG Rosuvastati Rosuvastati No Rosuvastat n Calcium n Calcium in Calcium 20 MG 20 MG 20 MG busPIRone busPIRone No QD busPIRone HCl 5 MG HCl 5 MG HCl 5 MG QUEtiapine QUEtiapine No QD QUEtiapine Fumarate Fumarate Fumarate 400 MG 400 MG 400 MG Famotidine Famotidine No 1{table QD Famotidine 20 MG 20 MG t_at_be 20 MG dtime_a s_neede d} traZODone traZODone No 1{table BID traZODone HCl 100 MG HCl 100 MG t_at_be HCl 100 MG dtime} busPIRone busPIRone No QD busPIRone HCl 10 MG HCl 10 MG HCl 10 MG Lexapro 20 Lexapro 20 No 1{table QD Lexapro 20 MG MG t} MG Vitamin B12 Vitamin B12 No 1{table BID Vitamin 1000 MCG 1000 MCG t} B12 1000 MCG traMADol traMADol No 1{table QID traMADol HCl 50 MG HCl 50 MG t_as_ne HCl 50 MG eded} Ferrous Ferrous No 1{table BID Ferrous Sulfate 325 Sulfate 325 t} Sulfate (65 Fe) MG (65 Fe) MG 325 (65 Fe) MG QUEtiapine QUEtiapine No QD QUEtiapine Fumarate Fumarate Fumarate 100 MG 100 MG 100 MG NexIUM 40 NexIUM 40 No 1{capsu QD NexIUM 40 MG MG le} MG Lisinopril Lisinopril No 1{table QD Lisinopril 5 MG 5 MG t} 5 MG Eliquis 2.5 Eliquis 2.5 No 1{table QD Eliquis MG MG t} 2.5 MG SEROquel SEROquel No 1{table BID SEROquel 400 MG 400 MG t} 400 MG Rosuvastati Rosuvastati No Rosuvastat n Calcium n Calcium in Calcium 20 MG 20 MG 20 MG busPIRone busPIRone No QD busPIRone HCl 5 MG HCl 5 MG HCl 5 MG QUEtiapine QUEtiapine No QD QUEtiapine Fumarate Fumarate Fumarate 400 MG 400 MG 400 MG Famotidine Famotidine No 1{table QD Famotidine 20 MG 20 MG t_at_be 20 MG dtime_a s_neede d} traZODone traZODone No 1{table BID traZODone HCl 100 MG HCl 100 MG t_at_be HCl 100 MG dtime} busPIRone busPIRone No QD busPIRone HCl 10 MG HCl 10 MG HCl 10 MG Lexapro 20 Lexapro 20 No 1{table QD Lexapro 20 MG MG t} MG Vitamin B12 Vitamin B12 No 1{table BID Vitamin 1000 MCG 1000 MCG t} B12 1000 MCG traMADol traMADol No 1{table QID traMADol HCl 50 MG HCl 50 MG t_as_ne HCl 50 MG eded} Ferrous Ferrous No 1{table BID Ferrous Sulfate 325 Sulfate 325 t} Sulfate (65 Fe) MG (65 Fe) MG 325 (65 Fe) MG QUEtiapine QUEtiapine No QD QUEtiapine Fumarate Fumarate Fumarate 100 MG 100 MG 100 MG NexIUM 40 NexIUM 40 No 1{capsu QD NexIUM 40 MG MG le} MG Lisinopril Lisinopril No 1{table QD Lisinopril 5 MG 5 MG t} 5 MG busPIRone busPIRone No QD busPIRone HCl 10 MG HCl 10 MG HCl 10 MG QUEtiapine QUEtiapine No QD QUEtiapine Fumarate Fumarate Fumarate 400 MG 400 MG 400 MG Ferrous Ferrous No 1{table BID Ferrous Sulfate 325 Sulfate 325 t} Sulfate (65 Fe) MG (65 Fe) MG 325 (65 Fe) MG busPIRone busPIRone No QD busPIRone HCl 5 MG HCl 5 MG HCl 5 MG Lexapro 20 Lexapro 20 No 1{table QD Lexapro 20 MG MG t} MG Eliquis 2.5 Eliquis 2.5 No Eliquis MG MG 2.5 MG Famotidine Famotidine No Famotidine 20 MG 20 MG 20 MG NexIUM 40 NexIUM 40 No 1{capsu QD NexIUM 40 MG MG le} MG Rosuvastati Rosuvastati No Rosuvastat n Calcium n Calcium in Calcium 20 MG 20 MG 20 MG Eliquis 2.5 Eliquis 2.5 No 1{table QD Eliquis MG MG t} 2.5 MG SEROquel SEROquel No 1{table BID SEROquel 400 MG 400 MG t} 400 MG Famotidine Famotidine No 1{table QD Famotidine 20 MG 20 MG t_at_be 20 MG dtime_a s_neede d} Vitamin B12 Vitamin B12 No 1{table BID Vitamin 1000 MCG 1000 MCG t} B12 1000 MCG traZODone traZODone No 1{table BID traZODone HCl 100 MG HCl 100 MG t_at_be HCl 100 MG dtime} Lisinopril Lisinopril No Lisinopril 5 MG 5 MG 5 MG traMADol traMADol No 1{table QID traMADol HCl 50 MG HCl 50 MG t_as_ne HCl 50 MG eded} QUEtiapine QUEtiapine No QD QUEtiapine Fumarate Fumarate Fumarate 100 MG 100 MG 100 MG busPIRone busPIRone No QD busPIRone HCl 10 MG HCl 10 MG HCl 10 MG QUEtiapine QUEtiapine No QD QUEtiapine Fumarate Fumarate Fumarate 400 MG 400 MG 400 MG Ferrous Ferrous No 1{table BID Ferrous Sulfate 325 Sulfate 325 t} Sulfate (65 Fe) MG (65 Fe) MG 325 (65 Fe) MG busPIRone busPIRone No QD busPIRone HCl 5 MG HCl 5 MG HCl 5 MG Lexapro 20 Lexapro 20 No 1{table QD Lexapro 20 MG MG t} MG Eliquis 2.5 Eliquis 2.5 No Eliquis MG MG 2.5 MG Famotidine Famotidine No Famotidine 20 MG 20 MG 20 MG NexIUM 40 NexIUM 40 No 1{capsu QD NexIUM 40 MG MG le} MG Rosuvastati Rosuvastati No Rosuvastat n Calcium n Calcium in Calcium 20 MG 20 MG 20 MG Eliquis 2.5 Eliquis 2.5 No 1{table QD Eliquis MG MG t} 2.5 MG SEROquel SEROquel No 1{table BID SEROquel 400 MG 400 MG t} 400 MG Famotidine Famotidine No 1{table QD Famotidine 20 MG 20 MG t_at_be 20 MG dtime_a s_neede d} Vitamin B12 Vitamin B12 No 1{table BID Vitamin 1000 MCG 1000 MCG t} B12 1000 MCG traZODone traZODone No 1{table BID traZODone HCl 100 MG HCl 100 MG t_at_be HCl 100 MG dtime} Lisinopril Lisinopril No Lisinopril 5 MG 5 MG 5 MG traMADol traMADol No 1{table QID traMADol HCl 50 MG HCl 50 MG t_as_ne HCl 50 MG eded} QUEtiapine QUEtiapine No QD QUEtiapine Fumarate Fumarate Fumarate 100 MG 100 MG 100 MG Rosuvastati Rosuvastati No Rosuvastat n Calcium n Calcium in Calcium 20 MG 20 MG 20 MG Eliquis 2.5 Eliquis 2.5 No Eliquis MG MG 2.5 MG Vitamin B12 Vitamin B12 No 1{table BID Vitamin 1000 MCG 1000 MCG t} B12 1000 MCG Lexapro 20 Lexapro 20 No 1{table QD Lexapro 20 MG MG t} MG busPIRone busPIRone No QD busPIRone HCl 10 MG HCl 10 MG HCl 10 MG Famotidine Famotidine No Famotidine 20 MG 20 MG 20 MG NexIUM 40 NexIUM 40 No 1{capsu QD NexIUM 40 MG MG le} MG traZODone traZODone No 1{table BID traZODone HCl 100 MG HCl 100 MG t_at_be HCl 100 MG dtime} Ferrous Ferrous No 1{table BID Ferrous Sulfate 325 Sulfate 325 t} Sulfate (65 Fe) MG (65 Fe) MG 325 (65 Fe) MG QUEtiapine QUEtiapine No QUEtiapine Fumarate Fumarate Fumarate 400 MG 400 MG 400 MG Famotidine Famotidine No 1{table QD Famotidine 20 MG 20 MG t_at_be 20 MG dtime_a s_neede d} traMADol traMADol No 1{table QID traMADol HCl 50 MG HCl 50 MG t_as_ne HCl 50 MG eded} busPIRone busPIRone No busPIRone HCl 5 MG HCl 5 MG HCl 5 MG Lisinopril Lisinopril No Lisinopril 5 MG 5 MG 5 MG SEROquel SEROquel No 1{table BID SEROquel 400 MG 400 MG t} 400 MG QUEtiapine QUEtiapine No QUEtiapine Fumarate Fumarate Fumarate 100 MG 100 MG 100 MG Rosuvastati Rosuvastati No Rosuvastat n Calcium n Calcium in Calcium 20 MG 20 MG 20 MG Eliquis 2.5 Eliquis 2.5 No Eliquis MG MG 2.5 MG Vitamin B12 Vitamin B12 No 1{table BID Vitamin 1000 MCG 1000 MCG t} B12 1000 MCG Lexapro 20 Lexapro 20 No 1{table QD Lexapro 20 MG MG t} MG busPIRone busPIRone No QD busPIRone HCl 10 MG HCl 10 MG HCl 10 MG Famotidine Famotidine No Famotidine 20 MG 20 MG 20 MG NexIUM 40 NexIUM 40 No 1{capsu QD NexIUM 40 MG MG le} MG traZODone traZODone No 1{table BID traZODone HCl 100 MG HCl 100 MG t_at_be HCl 100 MG dtime} Ferrous Ferrous No 1{table BID Ferrous Sulfate 325 Sulfate 325 t} Sulfate (65 Fe) MG (65 Fe) MG 325 (65 Fe) MG QUEtiapine QUEtiapine No QUEtiapine Fumarate Fumarate Fumarate 400 MG 400 MG 400 MG Famotidine Famotidine No 1{table QD Famotidine 20 MG 20 MG t_at_be 20 MG dtime_a s_neede d} traMADol traMADol No 1{table QID traMADol HCl 50 MG HCl 50 MG t_as_ne HCl 50 MG eded} busPIRone busPIRone No busPIRone HCl 5 MG HCl 5 MG HCl 5 MG Lisinopril Lisinopril No Lisinopril 5 MG 5 MG 5 MG SEROquel SEROquel No 1{table BID SEROquel 400 MG 400 MG t} 400 MG QUEtiapine QUEtiapine No QUEtiapine Fumarate Fumarate Fumarate 100 MG 100 MG 100 MG Rosuvastati Rosuvastati No Rosuvastat n Calcium n Calcium in Calcium 20 MG 20 MG 20 MG busPIRone busPIRone No busPIRone HCl 10 MG HCl 10 MG HCl 10 MG QUEtiapine QUEtiapine No QUEtiapine Fumarate Fumarate Fumarate 400 MG 400 MG 400 MG QUEtiapine QUEtiapine No QUEtiapine Fumarate Fumarate Fumarate 100 MG 100 MG 100 MG NexIUM 40 NexIUM 40 No 1{capsu QD NexIUM 40 MG MG le} MG Immunizations Ordered Immunization Filled Immunization Date Status Commen ts Source Name Name FLUZONE HIGH DOSE FLUZONE HIGH DOSE 2021-12-24 Completed [facility] OVER 65 OVER 65 13:47:00 [facility] FLUZONE HIGH DOSE FLUZONE HIGH DOSE 2021-12-24 Completed [facility] OVER 65 OVER 65 13:47:00 [facility] FLUZONE HIGH DOSE FLUZONE HIGH DOSE 2021-12-24 Completed [facility] OVER 65 OVER 65 13:47:00 [facility] FLUZONE HIGH DOSE FLUZONE HIGH DOSE 2021-12-24 Completed [facility] OVER 65 OVER 65 13:47:00 [facility] Vital Signs Vital Name Observation Time Observation Value Comments Source height 2021-12-24 14:00:00 70 [in_i] [facility] weight 2021-12-24 14:00:00 146.1 [lb_av] Common [facility] temperature 2021-12-24 14:00:00 97.6 [degF] [facility]-24 14:00:00 20.96 kg/m2 Common [facility] oximetry 2021-12-24 14:00:00 98 % [facility] rate 2021-12-24 14:00:00 18 /min Comm on [facility] blood pressure 2021-12-24 14:00:00 117 mm[Hg] Common [facility] - systolic [facility] blood pressure 2021-12-24 14:00:00 62 mm[Hg] [facility] height 2021-09-24 14:20:00 70 [in_i] Common [facility] weight 2021-09-24 14:20:00 160.0 [lb_av] [facility] temperature 2021-09-24 14:20:00 97.7 [degF] Common [facility] bmi 2021-09-24 14:20:00 22.96 kg/m2 Common [facility] oximetry 2021-09-24 14:20:00 97 % Common [facility] respiratory rate 2021-09-24 14:20:00 17 /min Comm on [facility] blood pressure 2021-09-24 14:20:00 112 mm[Hg] [facility] blood pressure 2021-09-24 14:20:00 65 mm[Hg] [facility] diastolic [facility] height 2021-08-01 09:00:00 70 [in_i] Common [facility] weight 2021-08-01 09:00:00 158.1 [lb_av] [facility] temperature 2021-08-01 09:00:00 98.2 [degF] Common [facility] bmi 2021-08-01 09:00:00 22.68 kg/m2 [facility] oximetry 2021-08-01 09:00:00 97 % [facility] respiratory rate 2021-08-01 09:00:00 18 /min Comm on [facility] blood pressure 2021-08-01 09:00:00 114 mm[Hg] Common [facility] systolic [facility] blood pressure 2021-08-01 09:00:00 67 mm[Hg] Common [facility] diastolic [facility] [facility] height 2021-04-21 13:00:00 70 [in_i] [facility] weight 2021-04-21 13:00:00 160.6 [lb_av] [facility] temperature 2021-04-21 13:00:00 97.0 [degF] [facility] bmi 2021-04-21 13:00:00 23.04 kg/m2 [facility] oximetry 2021-04-21 13:00:00 99 % [facility] respiratory rate 2021-04-21 13:00:00 18 /min Comm on [facility] blood pressure 2021-04-21 13:00:00 110 mm[Hg] Common [facility] systolic [facility] blood pressure 2021-04-21 13:00:00 67 mm[Hg] Common [facility] diastolic [facility] Systolic blood 2021-02-28 16:00:00 127 mm[Hg] Univer sity of pressure [facility] Diastolic blood 2021-02-28 16:00:00 85 mm[Hg] Unive rsity of pressure [facility] Heart rate 2021-02-28 16:00:00 89 /min Univers[facility] of [facility] Respiratory rate 2021-02-28 16:00:00 26 /min [facility] in 2021-02-28 16:00:00 99 /min [facility] Arterial blood by [facility] Pulse oximetry Branch Body temperature 2021-02-28 13:47:00 36.72 Katie [facility] Body weight 2021-02-28 13:47:00 83.915 kg [facility] BMI 2021-02-28 13:47:00 26.54 kg/m2 [facility] Systolic (mm Hg) 2018-01-04 17:40:00 [facility] Diastolic (mm Hg) 2018-01-04 17:40:00 [facility] Heart Rate 2018-01-04 17:40:00 [facility] Respitory Rate 2018-01-04 17:40:00 [facility] Temperature Oral (F) 2018-01-04 17:09:00 98.7 F [facility] Respitory Rate 2018-01-04 17:09:00 [facility] Heart Rate 2018-01-04 17:09:00 [facility] Systolic (mm Hg) 2018-01-04 17:09:00 [facility] Diastolic (mm Hg) 2018-01-04 17:09:00 [facility] Temperature Oral (F) 2018-01-04 13:03:00 97.8 F [facility] Heart Rate 2018-01-04 13:03:00 [facility] Respitory Rate 2018-01-04 13:03:00 [facility] Systolic (mm Hg) 2018-01-04 13:03:00 [facility] Diastolic (mm Hg) 2018-01-04 13:03:00 [facility] Temperature Oral (F) 2018-01-04 05:00:00 98.5 F [facility] Height 2018-01-01 05:05:00 177.8 cm [facility] BMI Calculated 2018-01-01 05:05:00 [facility] Weight 2018-01-01 05:05:00 [facility] Height 2018-01-01 05:00:00 177.8 cm [facility] Weight 2017-12-31 23:42:00 [facility] BMI Calculated 2017-12-31 23:42:00 [facility] Height 2017-12-31 23:42:00 180.34 cm [facility] Respitory Rate 2017-12-16 00:20:00 [facility] Heart Rate 2017-12-16 00:20:00 [facility] Systolic (mm Hg) 2017-12-16 00:20:00 [facility] Diastolic (mm Hg) 2017-12-16 00:20:00 [facility] Temperature Oral (F) 2017-12-16 00:20:00 97.9 F [facility] Respitory Rate 2017-12-15 16:03:00 [facility] Temperature Oral (F) 2017-12-15 16:03:00 98.1 F [facility] Systolic (mm Hg) 2017-12-15 16:03:00 [facility] Diastolic (mm Hg) 2017-12-15 16:03:00 [facility] Heart Rate 2017-12-15 16:03:00 [facility] Temperature Oral (F) 2017-12-15 12:00:00 98.3 F [facility] Respitory Rate 2017-12-15 12:00:00 [facility] Heart Rate 2017-12-15 12:00:00 [facility] Systolic (mm Hg) 2017-12-15 12:00:00 [facility] Diastolic (mm Hg) 2017-12-15 12:00:00 [facility] Height 2017-12-12 20:43:00 177.8 cm [facility] BMI Calculated 2017-12-12 20:43:00 [facility] Weight 2017-12-12 20:43:00 [facility] Temperature Oral (F) 2017-12-01 20:45:00 98.0 F [facility] Respitory Rate 2017-12-01 20:45:00 [facility] Systolic (mm Hg) 2017-12-01 20:45:00 [facility] Diastolic (mm Hg) 2017-12-01 20:45:00 [facility] Heart Rate 2017-12-01 20:45:00 [facility] Temperature Oral (F) 2017-12-01 12:43:00 98.6 F [facility] Heart Rate 2017-12-01 12:43:00 [facility] Respitory Rate 2017-12-01 12:43:00 [facility] Systolic (mm Hg) 2017-12-01 12:43:00 [facility] Diastolic (mm Hg) 2017-12-01 12:43:00 [facility] Respitory Rate 2017-12-01 12:09:00 [facility] Heart Rate 2017-12-01 05:22:00 [facility] Temperature Oral (F) 2017-12-01 05:22:00 98.1 F [facility] Systolic (mm Hg) 2017-12-01 05:22:00 [facility] Diastolic (mm Hg) 2017-12-01 05:22:00 [facility] Weight 2017-11-30 00:42:00 [facility] BMI Calculated 2017-11-30 00:42:00 [facility] Height 2017-11-30 00:42:00 177.8 cm [facility] Weight 2017-11-29 15:32:00 [facility] BMI Calculated 2017-11-29 15:32:00 [facility] Height 2017-11-29 15:32:00 177.8 cm [facility] Temperature Oral (F) 2017-11-29 00:00:00 98.3 F [facility] Heart Rate 2017-11-29 00:00:00 [facility] Respitory Rate 2017-11-29 00:00:00 [facility] Systolic (mm Hg) 2017-11-29 00:00:00 [facility] Diastolic (mm Hg) 2017-11-29 00:00:00 [facility] Systolic (mm Hg) 2017-11-28 16:39:00 [facility] Diastolic (mm Hg) 2017-11-28 16:39:00 [facility] Heart Rate 2017-11-28 16:39:00 [facility] Respitory Rate 2017-11-28 16:39:00 [facility] Temperature Oral (F) 2017-11-28 16:39:00 98.1 F [facility] Respitory Rate 2017-11-28 12:00:00 [facility] Systolic (mm Hg) 2017-11-28 12:00:00 [facility] Diastolic (mm Hg) 2017-11-28 12:00:00 [facility] Heart Rate 2017-11-28 12:00:00 [facility] Temperature Oral (F) 2017-11-28 12:00:00 97.7 F [facility] BMI Calculated 2017-11-27 19:41:00 [facility] Height 2017-11-27 19:41:00 177.8 cm [facility] Weight 2017-11-27 19:41:00 [facility] Weight 2017-11-27 19:04:00 [facility] Weight 2017-11-27 06:36:00 [facility] Respitory Rate 2017-05-24 05:51:00 [facility] Systolic (mm Hg) 2017-05-24 05:51:00 [facility] Diastolic (mm Hg) 2017-05-24 05:51:00 [facility] Temperature Oral (F) 2017-05-24 05:51:00 98.8 F [facility] Respitory Rate 2017-05-24 03:30:00 [facility] Temperature Oral (F) 2017-05-24 03:30:00 98.5 F [facility] Systolic (mm Hg) 2017-05-24 03:30:00 [facility] Diastolic (mm Hg) 2017-05-24 03:30:00 [facility] Respitory Rate 2017-05-24 02:43:00 [facility] Systolic (mm Hg) 2017-05-24 02:43:00 [facility] Diastolic (mm Hg) 2017-05-24 02:43:00 [facility] Heart Rate 2017-05-24 01:33:00 [facility] Temperature Oral (F) 2017-05-24 01:33:00 98.2 F [facility] Procedures Procedure Date / Time Performing Clinician Source Performed PATIENT QUESTIONNAIRE 2021-03-18 06:01:00 Doctor Unassigned, Uni [facility] [place] [facility] CT ABDOMEN PELVIS W 2021-02-28 14:55:12 Carlos Lindquist [facility] CONTRAST Medical Branch LIPASE 2021-02-28 13:57:00 Carlos Lindquist [facility] COMP. METABOLIC PANEL 2021-02-28 13:57:00 Carlos Lindquist [facility] ([id number]) Medical Branch CBC WITH DIFF 2021-02-28 13:57:00 Carlos Lindquist [facility] URINALYSIS 2021-02-28 13:57:00 Carlos Lindquist [facility] [place] NOTICE OF PRIVACY 2021-02-28 13:42:58 Doctor Unassigned, [facility] PRACTICES [place] [facility] CONSENT/REFUSAL FOR 2021-02-28 13:42:00 [facility]assigned, [facility] DIAGNOSIS AND TREATMENT [place] [facility] Cholecystectomy [facility] Encounters Start End Encounter Admission Attending Care Care Encounter Source Date/Time Date/Time Type Type Clinicians Facility Department ID 2021-12-22 Outpatient Russell, STLMLC STLMLC [id number] Common 08:30:00 Sandi [facility] 2021-10-07 Outpatient Russell, STLMLC STLMLC [id number] Common 11:20:00 Sandi [facility] 2021-09-23 Outpatient Russell, STLMLC STLMLC [id number] Common 14:03:00 Sandi [facility] 2021-07-30 Outpatient Russell, STLMLC STLMLC [id number] Common 10:18:16 Sandi [facility] 2021-07-01 Outpatient Russell, STLMLC STLMLC [id number] Common 14:56:01 Sandi [facility] 2021-06-07 Outpatient LSCH LSCH [id number] [place] 10:59:28 [id number] [facility] 2021-05-05 Outpatient EL RUSSELL, SLEH Surgery [id number] [facility] 13:45:52 [facility] 2021-05-05 Outpatient EL RUSSELL, SLEH Surgery [id number] SLEH 13:34:51 TERRY 2021-04-21 Outpatient Russell, STLMLC STLMLC [id number] Common 08:14:00 Sanid [facility] 2021-04-09 Outpatient Russell, STLMLC STLMLC [id number] Common 14:36:33 Sandi [facility] 2021-04-09 Outpatient Russell, STLMLC STLMLC [id number] Common 14:26:56 Sandi [facility] 2021-04-09 Outpatient Russell, STLMLC STLMLC [id number] Common 14:08:53 Sandi [id number] [facility] 2021-04-09 Outpatient Russell, STLMLC STLMLC [id number] Common 13:24:50 Sandi [id number] [facility] 2021-04-09 Outpatient Russell, STLMLC STLMLC [id number] Common 13:11:04 Sandi [id number] [facility] 2022-06-08 2022-06-08 CAV Tatyana 2.16.840. 2.16.840.1. CLAC [id number] [facility] 18:00:00 19:00:00 Celestino [id number] Medical [id number] 2022-05-28 2022-05-28 Care Yvon 2.16.840. 2.16.840.1. CLAC XHZUEY [facility] 20:30:00 21:00:00 [employer] Gerald [id number]. [facility] Medical [id number] 2022-05-20 2022-05-20 [facility]patient [facility] [id number] [facility] 00:00:00 00:00:00 0308 Medica l Group 2022-05-20 2022-05-20 Outpatient [facility] [id number] [facility] 00:00:00 00:00:00 0506 Medica l Group 2022-01-30 2022-01-30 (TEL) STLMLC STLC [id number] Co mmon 00:00:00 00:00:00 [facility] 2022-01-09 2022-01-09 (TEL) STLMLC STLMLC [id number] Co mmon 00:00:00 00:00:00 [facility] 2022-01-02 2022-01-02 Outpatient Hunt_A DMG [facility] [id number] Devoted 00:00:00 00:00:00 1021 Medica l Group 2021-12-24 2021-12-24 OFFICE STLMLC STLMLC [id number] Co mmon 00:00:00 00:00:00 VISIT Spirit ESTAB PT - CHI LEVEL 4 [facility] 2021-12-14 2021-12-14 (WEB) STLMLC STLMLC [id number] Co mmon 00:00:00 00:00:00 [facility] 2021-10-20 2021-10-20 Outpatient Williams_V DMG DM [id number] 00:00:00 00:00:00 0808 [facility] l Group 2021-10-16 2021-10-16 (TEL) STLMLC STLMLC [id number] Co mmon 00:00:00 00:00:00 [facility] 2021-10-07 2021-10-07 (TEL) STLMLC STLMLC [id number] Co mmon 00:00:00 00:00:00 [facility] 2021-10-02 2021-10-02 (TEL) STLMLC STLMLC [id number] Co mmon 00:00:00 00:00:00 [facility] 2021-09-26 2021-09-26 Outpatient Williams_V DMG DMG [id number] 07:33:00 07:33:00 0715 Medica l Group 2021-09-24 2021-09-24 OFFICE STLMLC STLMLC [id number] Co mmon 00:00:00 00:00:00 VISIT [facility] ESTAB PT - CHI LEVEL 4 [facility] 2021-08-01 2021-08-01 OFFICE STLMLC STLMLC [id number] Co mmon 00:00:00 00:00:00 VISIT Spirit ESTAB PT - CHI LEVEL 4 [facility] 2021-08-01 2021-08-01 (TEL) STLMLC STLMLC [id number] Co mmon 00:00:00 00:00:00 [facility] 2021-07-01 2021-07-01 CAV Marie 2.16.840. 2.16.840.1. CLAC [id number] [facility] 19:00:00 20:00:00 Du [id number]. [id number] CF4 [facility] [id number] 2021-06-30 2021-06-30 (TEL) STLMLC STLMLC [id number] Co mmon 00:00:00 00:00:00 [facility] 2021-06-26 2021-06-26 Outpatient [place] SLEGerry SLEH [id number] SLEH 00:00:00 00:00:00 IVAN 2021-06-25 2021-06-25 Outpatient Williams_V [facility] [id number] 02:15:00 02:15:00 0413 Medica l Group 2021-06-23 2021-06-23 (TEL) STLMLC STLC [id number] Co mmon 00:00:00 00:00:00 [facility] 2021-05-09 2021-05-09 Outpatient BOGENRIEDER [facility] 456 05:30:00 05:30:00 _N 0225 Medica l Group 2021-04-21 2021-04-21 (WELLNESS) STLMLC STLMLC [id number] Common 00:00:00 00:00:00 Wellness Spiri t [facility] 2021-04-21 2021-04-21 (TEL) STLMLC STLMLC [id number] Co mmon 00:00:00 00:00:00 [facility] 2021-04-10 2021-04-10 (TEL) STLMLC STLC [id number] Co mmon 00:00:00 00:00:00 [facility] 2021-03-20 2021-03-20 (TEL) STLMLC STLMLC [id number] Co mmon 00:00:00 00:00:00 [facility] 2021-03-18 2021-03-18 Orders Doctor PARMINDER [id number] Univers 00:00:00 00:00:00 Only Unassigned, CHERRI 350.1.13.10 ity of [place] [facility] 4.2.7.2.686 Jair as [id number] [place] [address] Branch 2021-03-06 2021-03-06 Outpatient BOGENRIEDER DMG DMG 456 Devoted 08:00:00 08:00:00 _N 1223 Medica l Group 2021-03-03 2021-03-03 (TEL) STLMLC STLMLC [id number] Co mmon 00:00:00 00:00:00 [facility] 2021-02-28 2021-02-28 Emergency [facility] ERT [id number] Univers 07:50:00 10:42:00 WAKILI ity of [facility] 2021-02-28 2021-02-28 Emergency [facility] [id number] Univers 07:50:00 10:42:00 Carlos S JULIET 350.1.13.10 ity of [place] 4.2.7.2.686 [facility] [id number] [facility] 084 Branch 2021-02-28 2021-02-28 Orders Doctor PARMINDER 1.2.840.114 [id number] Univers 00:00:00 00:00:00 Only Unassigned, CHERRI [id number] [facility] [place] [place] 4.2.7.2.686 [facility] [id number] [facility] 009 Branch 2021-01-07 2021-01-07 (TEL) STLMLC STLMLC [id number] Co mmon 00:00:00 00:00:00 [facility] 2020-09-23 2020-09-23 Outpatient STLMLC STLMLC [id number] Common 00:00:00 00:00:00 [facility] 2020-08-08 2020-08-08 Outpatient BOGENRIEDER DMG DM [id number] Devoted 03:21:00 03:21:00 _N 0527 Medica l Group 2017-12-31 2018-01-04 [facility] [id number] Memoria 23:35:00 18:03:00 glendy Urias 04 l [facility] 2017-12-31 2018-01-04 Inpatient nullFlavo [facility] [id number] Memoria 23:35:00 18:03:00 r Adonay 04 l [facility] 2017-12-31 2018-01-04 Outpatient Kevon, [facility] [id number] 18:35:00 13:03:00 Carmen 04 2017-12-12 2017-12-16 Inpatient nullFlavo [facility] [id number] Memoria 20:40:00 00:10:00 r Adonay 03 l [facility] 2017-12-12 2017-12-16 Inpatient nullFlavo [facility] [id number] Memoria 20:40:00 00:10:00 r Adonay 03 l [facility] 2017-12-12 2017-12-15 Outpatient Jamesquintinjuan, [facility] [id number] 15:40:00 19:10:00 Wilbert 03 2017-11-29 2017-12-01 Inpatient nullFlavo [facility] [id number] Memoria 15:19:00 20:54:00 r Adonay 02 l [facility] 2017-11-29 2017-12-01 Inpatient nullFlavo [facility] [id number] Memoria 15:19:00 20:54:00 r Adonay 02 l [facility] 2017-11-29 2017-12-01 Outpatient Reyes, [facility] [id number] 10:19:00 15:54:00 Anirudh E 02 2017-11-27 2017-11-29 Inpatient nullFlavo [facility] [id number] Memoria 06:26:00 01:31:00 r Adonay 01 l [facility] 2017-11-27 2017-11-29 Inpatient nullFlavo [facility] [id number] Memoria 06:26:00 01:31:00 r Adonay 01 l [facility] 2017-11-27 2017-11-28 Outpatient Eric, [facility] [id number] 01:26:00 20:31:00 Largo E 01 2017-07-14 2017-07-14 Out[facility] [id number] Common 16:25:00 16:25:00 [facility] it [facility] 2017-07-07 2017-07-07 Outpatient [facility] [id number] Common 09:00:00 09:00:00 [facility] it [facility] 2017-05-24 2017-05-24 Emergency [facility] [id number] Memoria 01:32:00 06:17:00 r Adonay 00 l [facility] 2017-05-24 2017-05-24 Emergency [facility] [id number] Memoria 01:32:00 06:17:00 r [place] 00 l [facility] 2017-05-23 2017-05-24 Outpatient Isael [facility] [id number] 20:32:00 01:17:00 Magdalena M 00 Results Test Description Test Time Test Comments Results Result Comments Source Lipid Panel With LDL/HDL Ratio 2021-08-01 00:00:00 Test Item Value Reference Range Interpretation Comme nts Cholesterol, Total (test code 143 mg/dL See_Comment [Automated message] The system = 2093-3) which generated this result transmitted ref erence range: 100-199 mg/dL. The reference range was not u sed to interpret this result as normal/abnormal. Triglycerides (test code = 170 mg/dL See_Comment H [Automated message] The system 9334-8) which generated this result transmitted ref erence range: 0-149 mg/dL. Th e reference range was not used to interpret this result as aaliyah l/abnormal. HDL Cholesterol (test code = 52 mg/dL See_Comment [Automated message] The system 9831-9) which generated this result transmitted ref erence range: >39 mg/dL. The refe rence range was not used to int erpret this result as aaliyah l/abnormal. Prostate-Specific Ag, [id number] 00:00:00 Test Item Value Reference Range Interpretation Comments Prostate Specific Ag 0.9 ng/mL See_Comment [Autom ated message] (test code = 2857-1) The sys tem which generated this result transmitted ref erence range: 0.0-4.0 ng/mL. The reference r ashley was not used to int erpret this result as normal/abnormal . Ferritin, [id number] 00:00:00 Test Item Value Reference Range Interpretation Comments Ferritin (test code = 13 ng/mL See_Comment L [Auto mated message] The 2276-4) system which ge nerated this result tra nsmitted reference range : 30-400 ng/mL. The refe rence range was not u sed to interpret this result as normal/abnormal . Hematopath Consultation, [id number] 00:00:00 Test Item Value Reference Range Interpretation Comments PLTs (test code = 45499-6) A Comments/Recommendations (test code = 37240-1) Pathologist (test code = 36395-2) Hemoglobin [id number] 00:00:00 Test Item Value Reference Range Interpretation Comments Hemoglobin A1c (test 5.3 % See_Comment [Autom ated message] The code = 4548-4) system which generated this result tra nsmitted reference range : 4.8-5.6 %. The referenc e range was not used to interpret this result as normal/abnormal . Comp. Metabolic Panel (14) ([facility])2021-08-01 00:00:00 Test Item Value Reference Range Interpretation Comments Glucose (test code = 76 mg/dL See_Comment [Autom ated message] 3555-7) The system [employer] generated this result transmitted ref erence range: 65-99 mg /dL. The reference r ashley was not used to interpret this result as normal/abnor mal. BUN (test code = 35 mg/dL See_Comment H [Automated message] 9034-0) The system [employer] generated this result transmitted ref erence range: 6-24 mg/ dL. The reference r ashley was not used to interpret this result as normal/abnor mal. Creatinine (test code 2.60 mg/dL See_Comment H [Auto mated message] = 2160-0) The system [employer] generated this result transmitted ref erence range: 0.76-1.2 7 mg/dL. The refe rence range was not u sed to interpret this result as normal/abnor mal. BUN/Creatinine Ratio 13 9-20 (test code = 3097-3) Sodium (test code = 140 mmol/L See_Comment [Automa maame message] 9871-2) The system [employer] generated this result transmitted ref erence range: 134-144 mmol/L. The ref erence range was not u sed to interpret this result as normal/abnor mal. Potassium (test code = 6.0 mmol/L See_Comment H [Aut omated message] 9363-3) The system [facility] generated this result transmitted ref erence range: 3.5-5.2 mmol/L. The ref erence range was not u sed to interpret this result as normal/abnor mal. Chloride (test code = 105 mmol/L See_Comment [Auto mated message] 2074-0) The system [facility] generated this result transmitted ref erence range: 96-106 m mol/L. The reference r ashley was not used to interpret this result as normal/abnor mal. Carbon Dioxide, Total 23 mmol/L See_Comment [Auto mated message] (test code = 2027-11) The s tem which generated this result transmitted ref erence range: 20-29 mm ol/L. The reference r ashley was not used to interpret this result as normal/abnor mal. Calcium (test code = 9.0 mg/dL See_Comment [Autom ated message] 81109-1) The system [facility] generated this result transmitted ref erence range: 8.7-10.2 mg/dL. The refe rence range was not u sed to interpret this result as normal/abnor mal. Protein, Total (test 6.2 g/dL See_Comment [Autom ated message] code = 2945-2) The system [facility] generated this result transmitted ref erence range: 6.0-8.5 g/dL. The reference r ashley was not used to interpret this result as normal/abnor mal. Albumin (test code = 4.3 g/dL See_Comment [Autom ated message] 7921-7) The system [facility] generated this result transmitted ref erence range: 3.8-4.9 g/dL. The reference r ashley was not used to interpret this result as normal/abnor mal. Globulin, Total (test 1.9 g/dL See_Comment [Auto mated message] code = 57751-1) The system [facility] generated this result transmitted ref erence range: 1.5-4.5 g/dL. The reference r ashley was not used to interpret this result as normal/abnor mal. A/G Ratio (test code = 2.3 1.2-2.2 H 1759-0) Bilirubin, Total (test <0.2 mg/dL See_Comment [Aut omated message] code = 1975-2) The system [employer] generated this result transmitted ref erence range: 0.0-1.2 mg/dL. The reference r ashley was not used to interpret this result as normal/abnor mal. Alkaline Phosphatase 71 IU/L See_Comment [Autom ated message] (test code = 6768-6) The sys tem which generated this result transmitted ref erence range: 44-121 I U/L. The reference r ashley was not used to interpret this result as normal/abnor mal. AST (SGOT) (test code 16 IU/L See_Comment [Auto mated message] = 1920-8) The system [employer] generated this result transmitted ref erence range: 0-40 IU/ L. The reference range was not used to int erpret this result as normal/abnormal . ALT (SGPT) (test code 13 IU/L See_Comment [Auto mated message] = 1742-6) The system [employer] generated this result transmitted ref erence range: 0-44 IU/ L. The reference range was not used to int erpret this result as normal/abnormal . Complete Metabolic [id number] 14:22:22 Test Item Value Reference Range Interpretation Comments NA (test code = 134 mmol/L 135-145 L 9014633830) K (test code = 4.1 mmol/L 3.5-5.0 0563077108) CL (test code = 106 mmol/L 98-108 2708150061) CO2 TOTAL (test code = 22 mmol/L 23-31 L 7935691728) AGAP (test code = 2-16 9062774875) BUN (test code = 25 mg/dL 7-23 H 9936635580) GLUCOSE (test code = 116 mg/dL 70-110 H 4240807700) CREATININE (test code = 2.31 mg/dL 0.60-1.25 H 8257028339) TOTAL BILI (test code = 0.3 mg/dL 0.1-1.6 1486038126) CALCIUM (test code = 9.3 mg/dL 8.6-10.6 1800582150) T PROTEIN (test code = 6.6 g/dL 6.3-8.2 2820580014) ALBUMIN (test code = 4.1 g/dL 3.5-5.0 4472073224) ALK PHOS (test code = 78 U/L 34-122 4039627532) ALTv (test code = 22 U/L 5-50 1742-6) AST(SGOT) (test code = 27 U/L 13-40 8539115523) eGFR (test code = mL/min/1.73m2 5571221138) ALFIE (test code = ALFIE) Association of Glomerular Filtration Rate (GFR) and Staging of Kidney Disease* + --+ --+ ------+| GFR (mL/min/1.73 m2) ?| With Kidney Damage ?| ?Without Kidney Damage+ --------+ --------+ +| ?>90 ?| ?Stage one ?| ? Normal ?+ ---+ ---+ -------+| ?60-89 ?| ?Stage two ?| ? Decreased GFR ? + --+ --+ ------+| ?30-59 ?| ?Stage three ?| ? Stage three ? + --+ --+ ------+| ?15-29 ?| ?Stage four ? | ? Stage four ?+ ---+ ---+ -------+| ?<15 (or dialysis) ? ?| ?Stage five ? | ? Stage five ?+ ---+ ---+ -------+ *Each stage assumes the associated GFR [...] or abnormalities in imaging tests). Lab Interpretation Abnormal (test code = 07510-4) [facility], [id number] 14:22:02 Test Item Value Reference Range Interpretation Comments LIPASE (test code = 9263179043) 244 U/L 0-220 H Lab Interpretation (test code = Abnormal 81451-3) [facility] CenterCB with Bkwkugufzcii7773-35-12 14:06:24 Test Item Value Reference Range Interpretation [...] (test code = 51.8 fL 38.5-51.6 H 24099-3) RDW-CV (test code = 14.3 % 12.1-15.4 788-0) PLT (test code = See_Comment [Automated 777-3) message] The sy stem which generated this result transmitted reference range : 150 - 328 10*3/ ?L. The reference r ashley was not used to interpret this result as normal/abnormal . MPV (test code = 9.4 fL 9.8-13.0 L 17404-2) NRBC/100 WBC (test See_Comment [Automat ed code = 7551464260) message] The system which generated this result transmitted reference range : 0.0 - 10.0 /100 WBCs. The refer ence range was not u sed to interpret th is result as normal/abnormal . NRBC x10^3 (test code <0.01 See_Comment [Auto mated = 8675792323) message] The s ystem which generated this result transmitted reference range : 10*3/?L. The reference range was not used to interpret this result as normal/abnormal . GRAN MAT (NEUT) % 64.4 % (test code = 770-8) IMM GRAN % (test code 0.50 % = 7259056380) LYMPH % (test code = 26.5 % 736-9) MONO % (test code = 5.9 % 5905-5) EOS % (test code = 2.5 % 713-8) BASO % (test code = 0.2 % 706-2) GRAN MAT x10^3(ANC) 5.71 10*3/uL 1.99-6.95 (test code = 2928811748) IMM GRAN x10^3 (test 0.04 10*3/uL 0.00-0.06 code = 8762225508) LYMPH x10^3 (test code 2.35 10*3/uL 1.09-3.23 = 731-0) MONO x10^3 (test code 0.52 10*3/uL 0.36-1.02 = 742-7) EOS x10^3 (test code = 0.22 10*3/uL 0.06-0.53 711-2) BASO x10^3 (test code <0.03 0.01-0.09 = 704-7) Lab Interpretation Abnormal (test code = 97315-1) [facility] CenterRPR Xnlmryuvbhi5558-13-21 12:58:17 Test Item Value Reference Range Interpretation [...] = 01-13-2020 N Expiration Dt) Thyroid Stimulating Orwycjv9088-72-09 08:56:30 Test Item Value Reference Range Interpretation Comments TSH (test code = TSH) 0.430 mIU/mL 0.270-4.200 Lipid Gymvk0917-52-26 08:50:19 Test Item Value Reference Range Interpretation Comments Cholesterol Total 140 mg/dL 0-200 RISK OF HE ART (test code = DISEASEPublishe d by Cholesterol Total) [employer] Fatou lyte Optimal Borderl ine Increased RiskC HOL <200 200-239 >240TRI G <150 150-199 >200HDL Male >60 <40HDL Fema le >60 <50LDL <100 130 -159 >160LDL Near op timal is 100-129 Triglycerides (test 149 mg/dL 9-200 [...] is LDL/HDL Ratio=L DL Calc/HDL Chol Hemoglobin [id number] 08:34:46 Test Item Value Reference Range Interpretation Comments Hemoglobin A1c (test code 5.3 % 4.8-5.9 No n Diabetic = Hemoglobin A1c) 4.8-5.9%Di abetic <7.0% IG Gpqit4420-49-52 15:05:10 Test Item Value Reference Range Interpretation Comments IG (test code = IG) 0.3 % 0.0-5.0 IG Abs (test code = IG Abs) 0 x10 N Complete Blood Count with Fjzcrddhwbsf4513-77-81 15:05:09 Test Item Value Reference Range Interpretation [...] code = IPF) 0 % N Automated Jprmzkgdvkun4411-87-25 15:05:09 Test Item Value Reference Range Interpretation Comments Neutro Auto (test code = Neutro 47.9 % 36.0-70.0 Auto) Lymph Auto (test code = Lymph Auto) 41.9 % 12.0-44.0 [place] Auto (test code = [place] Auto) 6.3 % 0.0-11.0 Eos, Auto (test code = Eos, Auto) 3.3 % 0.0-7.0 Basophil Auto (test code = Basophil 0.3 % 0.0-2.0 Auto) Neutro Absolute (test code = Neutro 3.6 x10 1.6-7.4 Absolute) Lymph Absolute (test code = Lymph 3.15 x10 .50-4.60 Absolute) [place] Absolute (test code = [place] .47 x10 .00-1.20 Absolute) Eos Absolute (test code = Eos 0.25 x10 0.00-0.74 Absolute) Baso Absolute (test code = Baso 0.02 x10 0.00-0.21 Absolute) Alcohol Wrldv8716-85-88 14:06:09 Test Item Value Reference Range Interpretation Comments Ethanol Level (test <0.00 g/dL 0.00-0.01 Intoxica maame 0.080 g/dL code = Ethanol or more Level) Ethanol Inst (test <0 N code = Ethanol Inst) Comprehensive Metabolic Nzruv9750-89-76 14:06:08 Test Item Value Reference Range Interpretation [...] A/G 1.8 ratio N Ratio) Comprehensive Metabolic Qgunm8140-26-49 14:06:08 Test Item Value Reference Range Interpretation [...] National Kidney Foundation, http://nkdep.ni h.gov Comprehensive Metabolic Gqnsn4281-20-77 14:06:08 Test Item Value Reference Range Interpretation [...] National Kidney Foundation, http://nkdep.ni h.gov Urine Drug Lvkzof2512-31-52 12:49:29 Test Item Value Reference Range Interpretation [...] if desired . Urinalysis with Culture, if vwjtjubcr7410-45-42 12:42:00 Test Item Value Reference Range Interpretation [...] Ind?) rule GL_SJM_UA_MICRO _IN D PT AND TMW9162-92-22 07:25:00 Test Item Value Reference Interpretation Comments Range PT PATIENT (test 11.6 SECONDS 9.4-12.5 N code = PTP) INTERNATIONAL 1.03 INR 0.88-1.13 N NORMAL RATIO (test Unit --------- code = INR) ---------Therap eutic range for INR i s dependent upon the situation.2.0-3 .0 Prophylaxis / v enous thromboembolism , Treatment of DV T, Acute myocardial infa rction stroke preventi on, Systemic emboli sm prevention in fibrillation3.0 -4.5 AMI recurrence prev ention, Systemic emboli sm prevention in p rosthetic heart 3.0-5.4 A [place] mortality reduc tion THROMBOPLASTIN TIME 33.2 SECONDS 24-37.7 N THERAPEU TIC RANGE FOR PARTIAL (test code UNFRACTIO NATED HEPARIN = = PTT) 50.5-83.6 SEC T his test is not recommen ded to monitor low molecularweight heparin or danaparoid. Order LMWH test COLLECTION THROUGH LINES THAT HAVE BEEN PREVIOUSLY FLUS HEDWITH HEPARIN SHOULD BE AVOIDED DUE TO POSSIBLE HEPARINCONTAMIN ATION COMPREHENSIVE METABOLIC [id number] 07:22:00 Test Item Value Reference Range Interpretation [...] NORMAL code = LIPINDEX) MG Index/DL URINALYSIS YHIILACA6017-89-11 02:49:00 Test Item Value Reference Range Interpretation [...] #RBC/HPF 0-3 - CT ABD PELVIS W/O [id number] 20:06:00 Patient Name: JEOVANY BUCKLEY Unit No: [id number] EXAMS: CPT CODE: [id number] CT ABD PELVIS W/O CONT 00755 Location: T 18 CT of the abdomen [...] mass is identified or perinephric collection. Both uretersappear decompressed. There is mild renal atrophy. The liver demonstrates normal size but is somewhatfatty in attenuation without focal abnormality on this non contrast exam. The patient is status postcholecystectomy. No biliary distention is seen. The spleen is normal in size without focal defects. The adrenal glands are unremarkable without masses. The pancreas demonstrates no abnormality on this non contrast exam. There are no peripancreatic fluid collections. Bowel gas pattern is nonobstructed and nonspecific without pneumoperitoneum or pneumatosis. Assessment of bowel pathology is limited given lack of IV and enteric contrast w/o abscess or definite abnormality identified. The appendix is not closely seen. Labrum removed this patient to our Hysterectomy changes. Minimal distention of small bowel loops and of the right side of the colon possibly indicative of a viral enteritis/and ileus without associated wall thickening Both the abdominal aorta and IVC are unremarkable. There is no significant adenopathy within the abdomen. The bases of the lungs are clear. [facility] NAME: JEOVANY BUCKLEY [address] [place] [address] PHYS: Paula Vera NP [place], [place] [address] : 1965 AGE: 52SEX: M LOC: B.ERS PHONE #: [phone] EXAM DATE: 07/21/2018 STATUS: REG ER FAX #: [phone] RAD #: D/C DT PAGE 1 Signed Report (CONTINUED) Patient Name: JEOVANY BUCKLEY Unit No: [id number] EXAMS: CPT CODE: [id number] CT ABD PELVIS W/O CONT 57797 <Continued> The pelvic contents are unremarkable without mass. No focal fluid collections or adenopathy. The uterus is not seenand presumably has been removed. IMPRESSION: Findings suggestive of viral enterocolitis versus ileuswith mildly fluid-filled distention of small bowel loops and of the right side of the colon without associated wall thickening Mild renal atrophy at 2006 Reported and signed by: Heather Westbrook M.D. CC: Paula Mandel WILDERNESS GUIDE Dictated Date/Time: 07/21/2018 (2005) Technologist: Ryland Case CTDI: 10.33 DLP: 582.31 Trnscrpt: 07/21/2018 (2005) RosyDAS6 FLY Chawla NAME: JEOVANY BUCKLEY [address] [place] [address] PHYS: Paula Vera [place] [address] : 1965 AGE: 52 SEX: M LOC: [employer] PHONE #: [phone] EXAM DATE: 07/21/2018 STATUS: REG ER FAX #: [phone] RAD #: D/C DT PAGE 2 Signed Report Patient Name: JEOVANY BUCKLEY Unit No: [id number] EXAMS: CPT CODE: [id number] CT ABD PELVIS W/O CONT 29036 <Continued> Orig Print D/T: S: 07/21/2018 (2008) FLY Chawla [facility] PHYS: Paula Vera [place] [address] : 1965 AGE: 52 SEX: M LOC: B.ERS PHONE #: [phone] EXAM DATE: 07/21/2018 STATUS: REG ER FAX #: [phone] RAD #: D/C DT PAGE 3 Signed ReportCOMPREHENSIVE METABOLIC [id number] 17:37:00 Test Item Value Reference Range Interpretation [...] 1 NORMAL code = LIPINDEX) MG Index/DL [id number] 17:37:00 Test Item Value Reference Range Interpretation Comments LIPASE (test code = LIP) 121 Unit/L 114-286 N [id number]-[id number] 17:37:00 Test Item Value Reference Range Interpretation [...] change s in troponin levelscharacter istic of [place]. CBC W/MANUAL [id number] 17:35:00 Test Item Value Reference Range Interpretation [...] 0.00 K/mm3 0.00-0.05 N NRBC#) COMPREHENSIVE METABOLIC [id number] 17:33:00 Test Item Value Reference Range Interpretation [...] 1 NORMAL code = LIPINDEX) MG Index/DL [id number] 17:33:00 Test Item Value Reference Range Interpretation Comments LIPASE (test code = LIP) 121 Unit/L 114-286 N [id number]-[id number] 17:33:00 Test Item Value Reference Range Interpretation Comments TROPONIN-I (test code = TROPI) NG/ML 0.000-0.045 - CT ABD PELVIS W/O [id number] 15:38:00 Patient Name: JEOVANY BUCKLEY Unit No: [id number] EXAMS: CPT CODE: [id number] CT ABD PELVIS W/O CONT 51235 Site ID: [id number] CLINICAL HISTORY: Abdominal pain, kidney stones TECHNIQUE: Axial images of the abdomen and pelvis were obtained from diaphragm to the pubic symphysis without oral or intravenous contrast. CT dose lowering technique utilized, with adjustment of MA/kV according to patient size and automated exposure control. COMPARISON: CT abdomen and pelvis April 19, 2018 DISCUSSION: The lung bases a re clear. The heart size is normal. Tiny hiatal hernia noted. The liver is normal in size and contour, without focal abnormality. The gallbladder is absent. No biliary ductal dilatation. The spleen, pancreas and adrenal glands are unremarkable. Both kidneys are normal in size. 13 mm left renal cyst re quires no further workup. No hydronephrosis, nephrolithiasis or [...] M.D. CC: Marge GLASER Dictated Date/Time: 06/23/2018 (1154) Technologist: Ryland Case CTDI: 10.01 DLP: 596.61 Trnscrpt: 06/23/2018 (6913) [id number] FLY Chawla NAME: JEOVANY BUCKLEY [address] [place] [address] PHYS: Marge [place] [address] : 1965 AGE: 52 SEX: M LOC: B.ERS PHONE #: [phone] EXAM DATE: 06/23/2018 STATUS: REG ER FAX #: [phone] RAD #: D/C DTPAGE 1 Signed Report Patient Name: JEOVANY BUCKLEY Unit No: [id number] EXAMS: CPT CODE: [id number] CT ABD PELVIS W/O CONT 69474 <Continued> Orig Print D/T: S: 06/23/2018 (1542) FLY Chawla NAME: JEOVANY BUCKLEY [address] [place] [address] PHYS: Marge [place] [id number] : 1965 AGE: 52 SEX: M LOC: [facility] PHONE #: [phone] EXAM DATE: 06/23/2018 STATUS: REG ER FAX #: [phone] RAD #: D/C DT PAGE 2 Signed ReportCOMPREHENSIVE METABOLIC PANEL 2018-06-23 15:10:00 Test Item Value Reference Range Interpretation [...] 1 NORMAL code = LIPINDEX) MG Index/DL [id number] 15:10:00 Test Item Value Reference Range Interpretation Comments LIPASE (test code = LIP) 134 Unit/L 114-286 N CBC W/AUTO [id number] 14:51:00 Test Item Value Reference Range Interpretation [...] = 0.00 K/mm3 0.00-0.05 N NRBC#) URINALYSIS [id number] 14:14:00 Test Item Value Reference Range Interpretation [...] NONE MUCU) UA RFLX MICR CULT IF [id number] 01:11:00 Test Item Value Reference Range Interpretation [...] HPF = WBCUR) PYURIA ABSENT URINE CULTURE N OT INDICATED UA RBC (test code = 0-3 /HPF <4-5 RBCU) UA SQUAMOUS CELLS 0-5 (RARE) /HPF 0-5 (RARE) (test code = SQU) SOURCE OF URINE: CLEAN CATCHless than 18 yrs old, neutropenic, or urological surgery? NOPrimary Indication for Culture: OtherOther Indication: FLANK PAIN PROTHROMBIN [id number] 01:10:00 Test Item Value Reference Range Interpretation Comments PROTHROMBIN TIME 9.7 SECONDS 9.2-12.1 N PATIENT (test code = PTP) INTERNATIONAL NORMAL 0.9 The INR is to be used RATIO (test code = only for monitoring INR) ORAL ANTICOAGULANTTH ERAPY. Indication INR Value1. Prophylaxis/chris atment of: Venous Thro mbosis, Pulmonary Embol ism 2.0 - 3.02. Pre vention of systemic emb olism from: Tissue he art valves 2.0 - 3. 0 Acute myocardial infa rction (to present sys temic embolism)* 2.0 - 3.0 Valvular heart disease 2.0 - 3.0 Atria l fibrillation 2. 0 - 3.03. Mechanica l prosthetic valv es (high risk) 2.5 - 3.5 * If oral anticoagulant t herapy is elected to preventrecurren t myocardial infa rction, an INR of 2.5-3 .5 isrecommended, consistent with Food and Drug Administrationr ecommen dations. THROMBOPLASTIN TIME [id number] 01:10:00 Test Item Value Reference Range Interpretation Comments THROMBOPLASTIN TIME 24.5 SECONDS 23.4-37.0 N Therape utic Range PARTIAL (test code = for Hep janet PTT) EFFECTIVE Heparin IU/mL a PTT Seconds0.3 64.3 0.7 88.8 CBC W/AUTO [id number] 01:01:00 Test Item Value Reference Range Interpretation [...] 0.0-0.1 N - CT ABD PELVIS W/O [id number] 00:23:00 FAX: Josr Sanchez NP [phone] [place]: St: PRE Name: JEOVANY BUCKLEY [facility] : 1965 Age/S: 52/M [address] Unit: [id number] Loc: [place] [address] Phys: Josr Sanchez NP Acct: [id number] Dis Date: Status: PRE ER PHONE #: [phone] Exam Date: 04/20/2018 0005 FAX #: [phone] Reason: BILATERAL FLANK PAIN EXAMS: CPT CODE: [id number] CT ABD PELVIS W/O CONT 78827 EXAM: CT ABDOMEN AND PELVIS WITHOUT CONTRAST. INDICATION: BILATERAL FLANK PAIN COMPARISON: April 06, 2018 TECHNIQUE: Axial CT imaging of the abdomen and pelvis was obtained without administration of intravenous contrast. Coronaland sagittal reformatted images were submitted for review. IV contrast: None DLP: 708.98 mGy-cm FINDINGS: The heart size is normal. The lung bases are clear. No pericardial or pleural effusion is identified. The noncontrast appearance of the liver, spleen, pancreas, and adrenal glands is unremarkable.There has been prior cholecystectomy. No focal liver lesions are identified. No intrahepatic biliary duct dilatation. The kidneys are normal in size. There is a simple cyst in the left kidney measuring1.7 cm. No hydronephrosis or nephrolithiasis is identified. The urinary bladder is normal. The stomach, small bowel, and large bowel are normal in appearance. No bowel obstruction is identified. No lymphadenopathy is identified in the abdomen or pelvis. No free fluid or free air. [...] Signed Report (CONTINUED) FAX: Josr Sanchez NP [phone] [place]: St: PRE -- Name: JEOVANY BUCKLEY [facility] : 1965 Age/S: 52/M [address] Unit: [id number] Loc: [place] [address] Phys: Josr Sanchez NP Acct: [id number] Dis Date: Status: PRE ER PHONE #: [phone] ExamDate: 04/20/2018 0005 FAX #: [phone] Reason: BILATERAL FLANK PAIN EXAMS: CPT CODE: [id number] CT ABD PELVIS W/O CONT 77192 (Continued) adjustment of the mA and or kV according to patient size and/or use of iterative reconstruction technique. at 0023 Reported and signed by: Jill Keating MD CC: Josr Sanchez NP Technologist: Yadira Azar [facility] Dt/Tm: 04/20/2018 (0023) 16 Orig Print D/T: S: 04/20/2018 (0026 PAGE 2 Signed Report- CT ABD PELVIS [id number]/[id number] 14:41:00 Patient Name: JEOVANY BUCKLEY Unit No: [id number] EXAMS: CPT CODE: [id number] CT ABD PELVIS W/CONT 49475 Site ID: [id number] CLINICAL HISTORY: Abdominal and back pain TECHNIQUE: Axial images of the abdomen and pelvis were obtained from diaphragm to the pubic symphysis with intravenous contrast. CT dose loweringtechnique utilized, with adjustment of MA/kV according to patient size and automated exposure control. COMPARISON: Noncontrast CT abdomen and pelvis March 03, 2018 DISCUSSION: The lung bases are clear. The heart size is normal. The liver is normal in size and contour, without focal abnormality. Thegallbladder is absent. No biliary ductal dilatation. The [...] 668.50 Trnscrpt: 04/06/2018 (1441) RosyAJP6 LUIS M Chawla NAME: DE[address] PHYS: Sheron Mills MD [place] [address] : 1965 AGE: 52 SEX: M LOC: B.ERS PHONE #: [phone] EXAM DATE: 04/06/2018 STATUS: REG ER FAX #: [phone] RAD #: D/C DT PAGE 1 Signed Report Patient Name: JEOVANY BUCKLEY Unit No: [id number] EXAMS: CPT CODE: [id number] CT ABD PELVIS W/CONT 91193 <Continued> Orig Print D/T: S: 04/06/2018 (7404) [facility] JONATAN Chawla NAME: DE[address] PHYS: [facility] [address] : 1965 AGE: 52 SEX: M LOC: B.ERS PHONE #: [phone] EXAM DATE: 04/06/2018 STATUS: REG ER FAX #: [phone] RAD #: D/C DT PAGE 2 Signed ReportURINALYSIS [id number] 14:23:00 Test Item Value Reference Range Interpretation [...] = RARE /LPF NONE MUCU) HEPATIC FUNCTION [id number] 14:06:00 Test Item Value Reference Range Interpretation [...] <50 MG 1 NORMAL = LIPINDEX) Index/DL [id number] 14:06:00 Test Item Value Reference Range Interpretation Comments LIPASE (test code = LIP) 271 Unit/L 114-286 N [id number] 14:06:00 Test Item Value Reference Range Interpretation [...] change s in troponin levelscharacter istic of [place]. CBC W/O [id number] 13:47:00 Test Item Value Reference Range Interpretation [...] 10.0 fL 7.6-10.4 N MPV) CHEMISTRY 7 [id number] 13:39:00 Test Item Value Reference Range Interpretation [...] 56-130 L code = GFRBED) CHEMISTRY 7 [id number] 13:39:00 Test Item Value Reference Range Interpretation [...] code = GFRBED) - XR CHEST 1 [id number] 13:27:00 FAX: Sheron Garcia MD [phone] [place]: E St: PRE Patient Name: JEOVANY BUCKLEY Unit No: [id number] EXAMS: CPT CODE: [id number] XR CHEST 1 V 79718 - XR CHEST 1 V INDICATION:Abdominal pain, vomiting, headache LOCATION: T18 Partial inspiration. The lungs are clear. The cardiomediastinal silhouette is within normal limits. Oldleft rib fractures noted. IMPRESSION: Partial inspiration. No active disease. at 1327 Reported and signed by: Parminder Valencia D.O. CC: Sheron Couch MD Dictated Date/Time: 04/06/2018 (7552)Technologist: Jcarlos Merlos TranscribedDate/Time: 04/06/2018 (5592) By: Lyle Orig Print D/T: S: 04/06/2018 (7606) LUIS M Chawla NAME: DE[address] PHYS: TARIK. Sheron [place]ouch [place] [address] : 1965 AGE: 52 SEX: M LOC: B.ERS PHONE #: [phone] EXAM DATE: 04/06/2018 STATUS: PRE ER FAX #: [phone] RAD NO: DC Dt: PAGE 1 Signed [id number] 09:54:00 Test Item Value Reference Range Interpretation Comments AGAP (test code = AGAP) 8.5 10.0-20.0 [facility]mqfqmzBYWQRDBOOAFF5831-84-63 09:54:00 Test Item Value Reference Range Interpretation Comments eGFR (test code = eGFR) 42 [facility] HospitalDudhlodKFAUGDKIPDYI3684-85-97 09:54:00 Test Item Value Reference Range Interpretation Comments Calcium Lvl (test code = Calcium Lvl) 7.2 8.5-10.5 [facility] HospitalImswbssFWZXSEMVHHVP7807-61-85 09:54:00 Test Item Value Reference Range Interpretation Comments Creatinine Lvl (test code = Creatinine 1.85 0.50-1.40 Lvl) [facility] HospitalDconzhiQZKMBWPOISHE4613-67-62 09:54:00 Test Item Value Reference Range Interpretation Comments Sodium Lvl (test code = Sodium Lvl) 142 135-145 [facility] HospitalLdzufusQHETVDHKQTAX9261-24-61 09:54:00 Test Item Value Reference Range Interpretation Comments Potassium Lvl (test code = Potassium 3.5 3.5-5.1 Lvl) [facility] HospitalCoaymeeIXCEGEIWUCIG6843-24-06 09:54:00 Test Item Value Reference Range Interpretation Comments Chloride Lvl (test code = Chloride Lvl) 105 95-109 [facility] HospitalRyicacyICUIGTOKBDCU3334-73-50 09:54:00 Test Item Value Reference Range Interpretation Comments CO2 (test code = CO2) 32 24-32 [facility] HospitalDrjrixlKOTZFRAMEDNO9966-79-75 09:54:00 Test Item Value Reference Range Interpretation Comments Glucose Lvl (test code = Glucose Lvl) 90 70-99 [facility] HospitalRygmczeKJBPDSGBDVKW1564-13-41 09:54:00 Test Item Value Reference Range Interpretation Comments BUN (test code = BUN) 35 7-22 [facility] LancasterGkushcoFJFGWWCPIV8793-80-46 09:54:00 Test Item Value Reference Range Interpretation Comments Hct (test code = Hct) 28.7 42.0-54.0 [facility] LancasterJrwmuhoZWNMJKLIBX5050-93-35 09:54:00 Test Item Value Reference Range Interpretation Comments Hgb (test code = Hgb) 9.6 14.0-18.0 [facility] HospitalVdbocgqDFJGIYXDKJKI0806-91-32 09:54:00 Test Item Value Reference Range Interpretation Comments AGAP (test code = AGAP) 8.5 10.0-20.0 [facility] HospitalZoikjlnZBKNDZBGXZQC1444-86-58 09:54:00 Test Item Value Reference Range Interpretation Comments eGFR (test code = eGFR) 42 [facility] HospitalOjftbddEABNCJRNYTBX2695-85-96 09:54:00 Test Item Value Reference Range Interpretation Comments Calcium Lvl (test code = Calcium Lvl) 7.2 8.5-10.5 [facility] HospitalKrmpiseRKMNVGDSMDTD5903-99-49 09:54:00 Test Item Value Reference Range Interpretation Comments Creatinine Lvl (test code = Creatinine 1.85 0.50-1.40 Lvl) [facility] HospitalScvhboiZZQYSPUTVDKE6179-20-42 09:54:00 Test Item Value Reference Range Interpretation Comments Sodium Lvl (test code = Sodium Lvl) 142 135-145 [facility] HospitalEezgsiyMERREARTOUCB5476-84-99 09:54:00 Test Item Value Reference Range Interpretation Comments Potassium Lvl (test code = Potassium 3.5 3.5-5.1 Lvl) [facility] HospitalRkegigtTZGUDOSHHZME5334-33-52 09:54:00 Test Item Value Reference Range Interpretation Comments Chloride Lvl (test code = Chloride Lvl) 105 95-109 [facility] HospitalSjggdkhZYNUREUGEWFB2914-30-40 09:54:00 Test Item Value Reference Range Interpretation Comments CO2 (test code = CO2) 32 24-32 [facility] HospitalTzcajodPIVMYSINHEJH4933-11-18 09:54:00 Test Item Value Reference Range Interpretation Comments Glucose Lvl (test code = Glucose Lvl) 90 70-99 [facility] HospitalEarnmqdRPWREQSWEJCD7213-96-64 09:54:00 Test Item Value Reference Range Interpretation Comments BUN (test code = BUN) 35 7-22 [facility] HospitalMhdhxduSQXQBFYCUB3876-71-74 09:54:00 Test Item Value Reference Range Interpretation Comments Hct (test code = Hct) 28.7 42.0-54.0 [facility] HospitalWonhtbmESGFVSKOEM8563-54-02 09:54:00 Test Item Value Reference Range Interpretation Comments Hgb (test code = Hgb) 9.6 14.0-18.0 [facility] AND [id number] 02:28:00 Test Item Value Reference Range Interpretation Comments UA RBC (test code = 6 See_Comment [Automa maame message] The UA RBC) system which ge nerated this result transmit maame reference range : <=2. The reference range was not used to interpr et this result as aaliyah l/abnormal. [facility] TBAJR4824-70-08 02:28:00 Test Item Value Reference Range Interpretation Comments UA Mucus (test code = UA Mucus) Few /LPF [facility] AND [id number] 02:28:00 Test Item Value Reference Range Interpretation Comments UA WBC (test code = 1 See_Comment [Automa maame message] The UA WBC) system which ge nerated this result transmit maame reference range : <=5. The reference range was not used to interpr et this result as aaliyah l/abnormal. [facility] AND [id number] 02:28:00 Test Item Value Reference Range Interpretation Comments UA Sq Epi (test code = UA Sq Occasional /LPF Epi) [facility] CenterCulture: Ovlos6046-19-26 02:28:00 Test Item Value Reference Range Interpretation Comments Culture: Urine (test code = No Growth Culture: Urine) [facility] AND [id number] 02:28:00 Test Item Value Reference Range Interpretation Comments UA RBC (test code = 6 See_Comment [Automa maame message] The UA RBC) system which ge nerated this result transmit maame reference range : <=2. The reference range was not used to interpr et this result as aaliyah l/abnormal. [facility] AND [id number] 02:28:00 Test Item Value Reference Range Interpretation Comments UA Mucus (test code = UA Mucus) Few /LPF [facility] AND [id number] 02:28:00 Test Item Value Reference Range Interpretation Comments UA WBC (test code = 1 See_Comment [Automa maame message] The UA WBC) system which ge nerated this result transmit maame reference range : <=5. The reference range was not used to interpr et this result as aaliyah l/abnormal. [facility] AND [id number] 02:28:00 Test Item Value Reference Range Interpretation Comments UA Sq Epi (test code = UA Sq Occasional /LPF Epi) [id number] 02:28:00 Test Item Value Reference Range Interpretation Comments Culture: Urine (test code = No [facility]: U[facility]) [facility] [id number] 07:54:00 Test Item Value Reference Range Interpretation Comments Glucose Lvl (test code = Glucose Lvl) 161 70-99 [facility] [id number] 07:54:00 Test Item Value Reference Range Interpretation Comments Calcium Lvl (test code = Calcium Lvl) 7.4 8.5-10.5 [facility] [id number] 07:54:00 Test Item Value Reference Range Interpretation Comments eGFR (test code = eGFR) 27 [facility] [id number] 07:54:00 Test Item Value Reference Range Interpretation Comments CO2 (test code = CO2) 29 24-32 [facility] [id number] 07:54:00 Test Item Value Reference Range Interpretation Comments AGAP (test code = AGAP) 10.4 10.0-20.0 [facility] [id number] 07:54:00 Test Item Value Reference Range Interpretation Comments Chloride Lvl (test code = Chloride Lvl) 108 95-109 [facility]2018-10-22 07:54:00 Test Item Value Reference Range Interpretation Comments Sodium Lvl (test code = Sodium Lvl) 144 135-145 [facility]2018-10-22 07:54:00 Test Item Value Reference Range Interpretation Comments Potassium Lvl (test code = Potassium 3.4 3.5-5.1 Lvl) [facility]2018-10-22 07:54:00 Test Item Value Reference Range Interpretation Comments BUN (test code = BUN) 59 7-22 [facility]2018-10-22 07:54:00 Test Item Value Reference Range Interpretation Comments Creatinine Lvl (test code = Creatinine 2.64 0.50-1.40 Lvl) [id number] 07:54:00 Test Item Value Reference Range Interpretation Comments Hgb (test code = Hgb) 9.1 14.0-18.0 [facility] L[id number] 07:54:00 Test Item Value Reference Range Interpretation Comments Hct (test code = Hct) 27.0 42.0-54.0 [facility]2018-10-22 07:54:00 Test Item Value Reference Range Interpretation Comments Glucose Lvl (test code = Glucose Lvl) 161 70-99 [facility]2018-10-22 07:54:00 Test Item Value Reference Range Interpretation Comments Calcium Lvl (test code = Calcium Lvl) 7.4 8.5-10.5 [facility]2018-10-22 07:54:00 Test Item Value Reference Range Interpretation Comments eGFR (test code = eGFR) 27 [facility]2018-10-22 07:54:00 Test Item Value Reference Range Interpretation Comments CO2 (test code = CO2) 29 24-32 [facility]2018-10-22 07:54:00 Test Item Value Reference Range Interpretation Comments AGAP (test code = AGAP) 10.4 10.0-20.0 [facility]2018-10-22 07:54:00 Test Item Value Reference Range Interpretation Comments Chloride Lvl (test code = Chloride Lvl) 108 95-109 [facility]2018-10-22 07:54:00 Test Item Value Reference Range Interpretation Comments Sodium Lvl (test code = Sodium Lvl) 144 135-145 [facility]2018-10-22 07:54:00 Test Item Value Reference Range Interpretation Comments Potassium Lvl (test code = Potassium 3.4 3.5-5.1 Lvl) [facility]2018-10-22 07:54:00 Test Item Value Reference Range Interpretation Comments BUN (test code = BUN) 59 7-22 [facility]2018-10-22 07:54:00 Test Item Value Reference Range Interpretation Comments Creatinine Lvl (test code = Creatinine 2.64 0.50-1.40 Lvl) [id number] 07:54:00 Test Item Value Reference Range Interpretation Comments Hgb (test code = Hgb) 9.1 14.0-18.0 [facility] LancasterAjnazvcVXZJTEOAVD1656-10-14 07:54:00 Test Item Value Reference Range Interpretation Comments Hct (test code = Hct) 27.0 42.0-54.0 [facility] AND [id number] 22:05:00 Test Item Value Reference Range Interpretation Comments UA Urobilinogen (test code = UA <=1.0 mg/dL 0.1-1.0 Urobilinogen) [facility] AND [id number] 22:05:00 Test Item Value Reference Range Interpretation Comments UA Color (test code = Yellow *NA*(01/02/18 UA Color) 5:05 PM) [facility] AND [id number] 22:05:00 Test Item Value Reference Range Interpretation Comments UA Turbidity (test code = Clear (01/02/18 5:05 UA Turbidity) PM) [facility] AND [id number] 22:05:00 Test Item Value Reference Range Interpretation Comments UA Glucose (test code = UA Negative mg/dL Glucose) [facility] AND [id number] 22:05:00 Test Item Value Reference Range Interpretation Comments UA pH (test code = UA pH) 6.0 1 5.0-8.0 [facility] AND [id number] 22:05:00 Test Item Value Reference Range Interpretation Comments UA Protein (test code = UA Negative mg/dL Protein) [facility] AND [id number] 22:05:00 Test Item Value Reference Range Interpretation Comments UA Spec Grav (test code = UA Spec 1.006 1 Grav) [facility] AND [id number] 22:05:00 Test Item Value Reference Range Interpretation Comments UA Blood (test code = Large *ABN*(01/02/18 UA Blood) 5:05 PM) [facility] AND [id number] 22:05:00 Test Item Value Reference Range Interpretation Comments UA Nitrite (test code Negative (01/02/18 5:05 = UA Nitrite) PM) [facility] [id number] 22:05:00 Test Item Value Reference Range Interpretation Comments UA Ketones (test code = UA Negative mg/dL Ketones) [facility] AND [id number] 22:05:00 Test Item Value Reference Range Interpretation Comments UA Bili (test code = Negative *NA*(01/02/18 UA Bili) 5:05 PM) [facility] AND [id number] 22:05:00 Test Item Value Reference Range Interpretation Comments UA Mucus (test code = UA Mucus) Few /LPF [facility] AND [id number] 22:05:00 Test Item Value Reference Range Interpretation Comments UA RBC (test code = 29 See_Comment [Automa maame message] The UA RBC) system which ge nerated this result transmit maame reference range : <=2. The reference range was not used to interpr et this result as aaliyah l/abnormal. [facility] AND [id number] 22:05:00 Test Item Value Reference Range Interpretation Comments UA WBC (test code = no gt See_Comment [Automa maame message] The UA WBC) system which ge nerated this result transmit maame reference range : <=5. The reference range was not used to interpr et this result as aaliyah l/abnormal. [facility] AND [id number] 22:05:00 Test Item Value Reference Range Interpretation Comments UA Leuk Est (test Negative (01/02/18 5:05 code = UA Leuk Est) PM) [facility] AND [id number] 22:05:00 Test Item Value Reference Range Interpretation Comments UA Sq Epi (test code = UA Sq Occasional /LPF Epi) [facility] [id number] 22:05:00 Test Item Value Reference Range Interpretation Comments U Protein (test code = U Protein) 18.3 [facility]2018-10-21 22:05:00 Test Item Value Reference Range Interpretation Comments U Prot/Creat (test code = U 0.35 1 Prot/Creat) [facility]2018-10-21 22:05:00 Test Item Value Reference Range Interpretation Comments U Creatinine (test code = U Creatinine) 52.10 [facility]2018-10-21 22:05:00 Test Item Value Reference Range Interpretation Comments U Creatinine (test code = U Creatinine) 52.10 [facility]2018-10-21 22:05:00 Test Item Value Reference Range Interpretation Comments U Sodium (test code = U Sodium) 43 [facility] AND [id number] 22:05:00 Test Item Value Reference Range Interpretation Comments UA Urobilinogen (test code = UA <=1.0 mg/dL 0.1-1.0 Urobilinogen) [facility] AND [id number] 22:05:00 Test Item Value Reference Range Interpretation Comments UA Color (test code = Yellow *NA*(01/02/18 UA Color) 5:05 PM) [facility] AND [id number] 22:05:00 Test Item Value Reference Range Interpretation Comments UA Turbidity (test code = Clear (01/02/18 5:05 UA Turbidity) PM) [facility] AND [id number] 22:05:00 Test Item Value Reference Range Interpretation Comments UA Glucose (test code = UA Negative mg/dL Glucose) [facility] AND [id number] 22:05:00 Test Item Value Reference Range Interpretation Comments UA pH (test code = UA pH) 6.0 1 5.0-8.0 [facility] AND [id number] 22:05:00 Test Item Value Reference Range Interpretation Comments UA Protein (test code = UA Negative mg/dL Protein) [facility] AND [id number] 22:05:00 Test Item Value Reference Range Interpretation Comments UA Spec Grav (test code = UA Spec 1.006 1 Grav) [facility] AND [id number] 22:05:00 Test Item Value Reference Range Interpretation Comments UA Blood (test code = Large *ABN*(01/02/18 UA Blood) 5:05 PM) [facility] AND [id number] 22:05:00 Test Item Value Reference Range Interpretation Comments UA Nitrite (test code Negative (01/02/18 5:05 = UA Nitrite) PM) [facility] AND [id number] 22:05:00 Test Item Value Reference Range Interpretation Comments UA Ketones (test code = UA Negative mg/dL Ketones) [facility] AND [id number] 22:05:00 Test Item Value Reference Range Interpretation Comments UA Bili (test code = Negative *NA*(01/02/18 UA Bili) 5:05 PM) [facility] AND [id number] 22:05:00 Test Item Value Reference Range Interpretation Comments UA Mucus (test code = UA Mucus) Few /LPF [facility] AND [id number] 22:05:00 Test Item Value Reference Range Interpretation Comments UA RBC (test code = 29 See_Comment [Automa maame message] The UA RBC) system which ge nerated this result transmit maame reference range : <=2. The reference range was not used to interpr et this result as aaliyah l/abnormal. [facility] AND [id number] 22:05:00 Test Item Value Reference Range Interpretation Comments UA WBC (test code = no gt See_Comment [Automa maame message] The UA WBC) system which ge nerated this result transmit maame reference range : <=5. The reference range was not used to interpr et this result as aaliyah l/abnormal. [facility] AND [id number] 22:05:00 Test Item Value Reference Range Interpretation Comments UA Leuk Est (test Negative (01/02/18 5:05 code = UA Leuk Est) PM) [facility] AND [id number] 22:05:00 Test Item Value Reference Range Interpretation Comments UA Sq Epi (test code = UA Sq Occasional /LPF Epi) [facility]2018-10-21 22:05:00 Test Item Value Reference Range Interpretation Comments U Protein (test code = U Protein) 18.3 [facility]2018-10-21 22:05:00 Test Item Value Reference Range Interpretation Comments U Prot/Creat (test code = U 0.35 1 Prot/Creat) [facility] [id number] 22:05:00 Test Item Value Reference Range Interpretation Comments U Creatinine (test code = U Creatinine) 52.10 [facility] [id number] 22:05:00 Test Item Value Reference Range Interpretation Comments U Creatinine (test code = U Creatinine) 52.10 [facility] [id number] 22:05:00 Test Item Value Reference Range Interpretation Comments U Sodium (test code = U Sodium) 43 [facility] [id number] 09:50:00 Test Item Value Reference Range Interpretation Comments Vitamin B12 Lvl (test code = Vitamin 032 869-1189 B12 Lvl) [facility] [id number] 09:50:00 Test Item Value Reference Range Interpretation Comments % Satur Fe (test code = % Satur Fe) 38 12-57 [facility] [id number] 09:50:00 Test Item Value Reference Range Interpretation Comments TIBC (test code = TIBC) 244 228-428 [facility] [id number] 09:50:00 Test Item Value Reference Range Interpretation Comments Iron (test code = Iron) 92 45-160 [facility] [id number] 09:50:00 Test Item Value Reference Range Interpretation Comments UIBC (test code = UIBC) 152 110-370 [facility] [id number] 09:50:00 Test Item Value Reference Range Interpretation Comments Ferritin Lvl (test code = Ferritin Lvl) 48 22-275 [facility] [id number] 09:50:00 Test Item Value Reference Range Interpretation Comments Folate Lvl (test code = Folate Lvl) 2.9 [facility] [id number] 09:50:00 Test Item Value Reference Range Interpretation Comments Total CK (test code = Total CK) 86 12-191 [facility] [id number] 09:50:00 Test Item Value Reference Range Interpretation Comments eGFR (test code = eGFR) 25 [facility] [id number] 09:50:00 Test Item Value Reference Range Interpretation Comments BUN (test code = BUN) 79 7-22 [facility] [id number] 09:50:00 Test Item Value Reference Range Interpretation Comments Glucose Lvl (test code = Glucose Lvl) 91 70-99 [facility]2018-10-21 09:50:00 Test Item Value Reference Range Interpretation Comments Potassium Lvl (test code = Potassium 3.6 3.5-5.1 Lvl) [facility]2018-10-21 09:50:00 Test Item Value Reference Range Interpretation Comments Creatinine Lvl (test code = Creatinine 2.86 0.50-1.40 Lvl) [facility]2018-10-21 09:50:00 Test Item Value Reference Range Interpretation Comments Sodium Lvl (test code = Sodium Lvl) 145 135-145 [facility]2018-10-21 09:50:00 Test Item Value Reference Range Interpretation Comments Calcium Lvl (test code = Calcium Lvl) 7.7 8.5-10.5 [facility]2018-10-21 09:50:00 Test Item Value Reference Range Interpretation Comments AGAP (test code = AGAP) 11.6 10.0-20.0 [facility]2018-10-21 09:50:00 Test Item Value Reference Range Interpretation Comments Chloride Lvl (test code = Chloride Lvl) 114 95-109 [facility]2018-10-21 09:50:00 Test Item Value Reference Range Interpretation Comments CO2 (test code = CO2) 23 24-32 [facility] L[id number] 09:50:00 Test Item Value Reference Range Interpretation Comments Platelet (test code = Platelet) 136 133-450 [facility] LancasterUclnufsZGRORLREMI3834-06-17 09:50:00 Test Item Value Reference Range Interpretation Comments MPV (test code = MPV) 8.5 7.4-10.4 [facility] La[id number] 09:50:00 Test Item Value Reference Range Interpretation Comments RDW (test code = RDW) 15.7 11.5-14.5 [facility] La[id number] 09:50:00 Test Item Value Reference Range Interpretation Comments MCHC (test code = MCHC) 34.3 32.0-36.0 [facility] Lan[id number] 09:50:00 Test Item Value Reference Range Interpretation Comments WBC (test code = WBC) 5.8 3.7-10.4 [place] [id number] 09:50:00 Test Item Value Reference Range Interpretation Comments Hct (test code = Hct) 27.1 42.0-54.0 [facility] La[id number] 09:50:00 Test Item Value Reference Range Interpretation Comments MCV (test code = MCV) 87.5 80.0-94.0 [facility] LancasterAvjlwdoASBVTVUUDZ8563-31-57 09:50:00 Test Item Value Reference Range Interpretation Comments MCH (test code = MCH) 30.0 pg 27.0-31.0 [facility] LancasterNwrjmtlOWTDMDWVAS0427-62-72 09:50:00 Test Item Value Reference Range Interpretation Comments Hgb (test code = Hgb) 9.3 14.0-18.0 [facility] La[id number] 09:50:00 Test Item Value Reference Range Interpretation Comments RBC (test code = RBC) 3.10 4.70-6.10 [facility] LancasterSkuqzkrMOZJFJWRSF8865-73-66 09:50:00 Test Item Value Reference Range Interpretation Comments D-Dimer (test code = D-Dimer) 0.47 [facility]2018-10-21 09:50:00 Test Item Value Reference Range Interpretation Comments Vitamin B12 Lvl (test code = Vitamin 835 606-1662 B12 Lvl) [facility]2018-10-21 09:50:00 Test Item Value Reference Range Interpretation Comments % Satur Fe (test code = % Satur Fe) 38 12-57 [facility]2018-10-21 09:50:00 Test Item Value Reference Range Interpretation Comments TIBC (test code = TIBC) 244 228-428 [facility]2018-10-21 09:50:00 Test Item Value Reference Range Interpretation Comments Iron (test code = Iron) 92 45-160 [facility]2018-10-21 09:50:00 Test Item Value Reference Range Interpretation Comments UIBC (test code = UIBC) 152 110-370 [facility]2018-10-21 09:50:00 Test Item Value Reference Range Interpretation Comments Ferritin Lvl (test code = Ferritin Lvl) 48 22-275 [facility]2018-10-21 09:50:00 Test Item Value Reference Range Interpretation Comments Folate Lvl (test code = Folate Lvl) 2.9 [facility] [id number] 09:50:00 Test Item Value Reference Range Interpretation Comments Total CK (test code = Total CK) 86 12-191 [facility]2018-10-21 09:50:00 Test Item Value Reference Range Interpretation Comments eGFR (test code = eGFR) 25 [facility]2018-10-21 09:50:00 Test Item Value Reference Range Interpretation Comments BUN (test code = BUN) 79 7-22 [facility]2018-10-21 09:50:00 Test Item Value Reference Range Interpretation Comments Glucose Lvl (test code = Glucose Lvl) 91 70-99 [facility]2018-10-21 09:50:00 Test Item Value Reference Range Interpretation Comments Potassium Lvl (test code = Potassium 3.6 3.5-5.1 Lvl) [facility]2018-10-21 09:50:00 Test Item Value Reference Range Interpretation Comments Creatinine Lvl (test code = Creatinine 2.86 0.50-1.40 Lvl) [facility]2018-10-21 09:50:00 Test Item Value Reference Range Interpretation Comments Sodium Lvl (test code = Sodium Lvl) 145 135-145 [facility]2018-10-21 09:50:00 Test Item Value Reference Range Interpretation Comments Calcium Lvl (test code = Calcium Lvl) 7.7 8.5-10.5 [facility]2018-10-21 09:50:00 Test Item Value Reference Range Interpretation Comments AGAP (test code = AGAP) 11.6 10.0-20.0 [facility]2018-10-21 09:50:00 Test Item Value Reference Range Interpretation Comments Chloride Lvl (test code = Chloride Lvl) 114 95-109 [facility]2018-10-21 09:50:00 Test Item Value Reference Range Interpretation Comments CO2 (test code = CO2) 23 24-32 [facility]JlrwisgCOUNCHSSOP0233-20-61 09:50:00 Test Item Value Reference Range Interpretation Comments Platelet (test code = Platelet) 136 133-450 [facility]GSYQNKWQUY2242-[facility]-38 09:50:00 Test Item Value Reference Range Interpretation Comments MPV (test code = MPV) 8.5 7.4-10.4 [facility] LancasterCktppzsHPCDQLFFLU5714-25-77 09:50:00 Test Item Value Reference Range Interpretation Comments RDW (test code = RDW) 15.7 11.5-14.5 [facility] LancasterViswujzRZXGKBGCYH3505-27-02 09:50:00 Test Item Value Reference Range Interpretation Comments MCHC (test code = MCHC) 34.3 32.0-36.0 [facility] LancasterQfwicwsXTTAJVVJGU9314-34-75 09:50:00 Test Item Value Reference Range Interpretation Comments WBC (test code = WBC) 5.8 3.7-10.4 [facility] LancasterZuccvssIFZWFLVUIL7453-48-80 09:50:00 Test Item Value Reference Range Interpretation Comments Hct (test code = Hct) 27.1 42.0-54.0 [facility] LancasterIncmnlyIPFQHLEXTO5560-07-50 09:50:00 Test Item Value Reference Range Interpretation Comments MCV (test code = MCV) 87.5 80.0-94.0 [facility] LancasterSmxeiepBAAIQYUQPP1690-63-65 09:50:00 Test Item Value Reference Range Interpretation Comments MCH (test code = MCH) 30.0 pg 27.0-31.0 [facility] LancasterVnlcgncXGEIJTFRZJ4001-21-43 09:50:00 Test Item Value Reference Range Interpretation Comments Hgb (test code = Hgb) 9.3 14.0-18.0 [facility] LancasterXkbmiffMSJIEXNOGG8584-60-36 09:50:00 Test Item Value Reference Range Interpretation Comments RBC (test code = RBC) 3.10 4.70-6.10 [facility] LancasterQnyemxmMQTNINMZGC4892-98-47 09:50:00 Test Item Value Reference Range Interpretation Comments D-Dimer (test code = D-Dimer) 0.47 [facility] [id number] 13:10:00 Test Item Value Reference Range Interpretation Comments U Opiate Scr (test Positive *ABN*(01/01/18 code = U Opiate Scr) 8:10 AM) [facility] [id number] 13:10:00 Test Item Value Reference Range Interpretation Comments U Benzodiaz Scr (test Negative *NA*(01/01/18 code = U Benzodiaz Scr) 8:10 AM) [facility] [id number] 13:10:00 Test Item Value Reference Range Interpretation Comments U Cocaine Scr (test Negative *NA*(01/01/18 code = U Cocaine Scr) 8:10 AM) [facility] [id number] 13:10:00 Test Item Value Reference Range Interpretation Comments U Cannab Scr (test Negative *NA*(01/01/18 code = U Cannab Scr) 8:10 AM) [facility] [id number] 13:10:00 Test Item Value Reference Range Interpretation Comments U Kami Scr (test code Negative *NA*(01/01/18 = U Kami Scr) 8:10 AM) [facility] [id number] 13:10:00 Test Item Value Reference Range Interpretation Comments U Amph Scr (test code Negative *NA*(01/01/18 = U Amph Scr) 8:10 AM) [facility] [id number] 13:10:00 Test Item Value Reference Range Interpretation Comments U Phencyclidine Scr (test Negative code = U Phencyclidine *NA*(01/01/18 8:10 Scr) AM) [facility] [id number] 13:10:00 Test Item Value Reference Range Interpretation Comments UDS Note (test code = See Note (01/01/18 8:10 UDS Note) AM) [facility] [id number] 13:10:00 Test Item Value Reference Range Interpretation Comments U Opiate Scr (test Positive *ABN*(01/01/18 code = U Opiate Scr) 8:10 AM) [facility] [id number] 13:10:00 Test Item Value Reference Range Interpretation Comments U Benzodiaz Scr (test Negative *NA*(01/01/18 code = U Benzodiaz Scr) 8:10 AM) [facility] [id number] 13:10:00 Test Item Value Reference Range Interpretation Comments U Cocaine Scr (test Negative *NA*(01/01/18 code = U Cocaine Scr) 8:10 AM) [facility] [id number] 13:10:00 Test Item Value Reference Range Interpretation Comments U Cannab Scr (test Negative *NA*(01/01/18 code = U Cannab Scr) 8:10 AM) [facility] [id number] 13:10:00 Test Item Value Reference Range Interpretation Comments U Kami Scr (test code Negative *NA*(01/01/18 = U Kami Scr) 8:10 AM) [facility] [employer] [id number] 13:10:00 Test Item Value Reference Range Interpretation Comments U Amph Scr (test code Negative *NA*(01/01/18 = U Amph Scr) 8:10 AM) [facility] [id number] 13:10:00 Test Item Value Reference Range Interpretation Comments U Phencyclidine Scr (test Negative code = U Phencyclidine *NA*(01/01/18 8:10 Scr) AM) [facility] [id number] 13:10:00 Test Item Value Reference Range Interpretation Comments UDS Note (test code = See Note (01/01/18 8:10 UDS Note) AM) [facility] [employer] [id number] 09:35:00 Test Item Value Reference Range Interpretation Comments Hgb A1C (test code = Hgb A1C) 5.4 [facility] [employer] [id number] 09:35:00 Test Item Value Reference Range Interpretation Comments Hgb A1C (test code = Hgb A1C) 5.4 [facility] [employer] [id number] 09:32:00 Test Item Value Reference Range Interpretation Comments Phosphorus (test code = Phosphorus) 5.3 2.5-4.5 [facility] [employer] [id number] 09:32:00 Test Item Value Reference Range Interpretation Comments Total Protein (test code = Total 6.2 6.4-8.4 Protein) [facility] [employer] [id number] 09:32:00 Test Item Value Reference Range Interpretation Comments B/C Ratio (test code = B/C Ratio) 20 1 6-25 [facility] [employer] [id number] 09:32:00 Test Item Value Reference Range Interpretation Comments Bili Total (test code = Bili Total) 0.2 0.2-1.3 [facility] [employer] [id number] 09:32:00 Test Item Value Reference Range Interpretation Comments Alk Phos (test code = Alk Phos) 94 39-136 [facility] [employer] [id number] 09:32:00 Test Item Value Reference Range Interpretation Comments AST (test code = AST) 10 See_Comment [Auto mated message] The system which ge nerated this result transmit maame reference range : <=37. The reference range was not used to interpr et this result as aaliyah l/abnormal. [id number] 09:32:00 Test Item Value Reference Range Interpretation Comments ALT (test code = ALT) 17 See_Comment [Auto mated message] The system which ge nerated this result transmit maame reference range : <=65. The reference range was not used to interpr et this result as aaliyah l/abnormal. [place] [id number] 09:32:00 Test Item Value Reference Range Interpretation Comments A/G Ratio (test code = A/G Ratio) 1.0 1 0.7-1.6 [place] [id number] 09:32:00 Test Item Value Reference Range Interpretation Comments Globulin (test code = Globulin) 3.1 2.7-4.2 [place] [id number] 09:32:00 Test Item Value Reference Range Interpretation Comments Albumin Lvl (test code = Albumin Lvl) 3.1 3.5-5.0 [facility]2018-10-20 09:32:00 Test Item Value Reference Range Interpretation Comments Phosphorus (test code = Phosphorus) 5.3 2.5-4.5 [place] [id number] 09:32:00 Test Item Value Reference Range Interpretation Comments Total Protein (test code = Total 6.2 6.4-8.4 Protein) [place] [id number] 09:32:00 Test Item Value Reference Range Interpretation Comments B/C Ratio (test code = B/C Ratio) 20 1 6-25 [place] [id number] 09:32:00 Test Item Value Reference Range Interpretation Comments Bili Total (test code = Bili Total) 0.2 0.2-1.3 [place] 175328-10-20 09:32:00 Test Item Value Reference Range Interpretation Comments Alk Phos (test code = Alk Phos) 94 39-136 [facility]2018-10-20 09:32:00 Test Item Value Reference Range Interpretation Comments AST (test code = AST) 10 See_Comment [Auto mated message] The system which ge nerated this result transmit maame reference range : <=37. The reference range was not used to interpr et this result as aaliyah l/abnormal. [facility] [employer] [id number] 09:32:00 Test Item Value Reference Range Interpretation Comments ALT (test code = ALT) 17 See_Comment [Auto mated message] The system which ge nerated this result transmit maame reference range : <=65. The reference range was not used to interpr et this result as aaliyah l/abnormal. [facility] [employer] [id number] 09:32:00 Test Item Value Reference Range Interpretation Comments A/G Ratio (test code = A/G Ratio) 1.0 1 0.7-1.6 [facility] [id number] 09:32:00 Test Item Value Reference Range Interpretation Comments Globulin (test code = Globulin) 3.1 2.7-4.2 [facility] [id number] 09:32:00 Test Item Value Reference Range Interpretation Comments Albumin Lvl (test code = Albumin Lvl) 3.1 3.5-5.0 [facility] [id number] 04:17:00 Test Item Value Reference Range Interpretation Comments Lactic Acid Lvl (test code = Lactic 0.4 0.5-2.2 Acid Lvl) [facility] [id number] 04:17:00 Test Item Value Reference Range Interpretation Comments Lactic Acid Lvl (test code = Lactic 0.4 0.5-2.2 Acid Lvl) [facility] HospitalModastic GroupeAC [id number] 01:20:00 Test Item Value Reference Range Interpretation Comments Total CK (test code = Total CK) 206 191 [facility] GroupeAC [id number] 01:20:00 Test Item Value Reference Range Interpretation Comments Total CK (test code = Total CK) 206 191 [facility] AND [id number] 00:53:00 Test Item Value Reference Range Interpretation Comments UA Urobilinogen (test code = UA <=1.0 mg/dL 0.1-1.0 Urobilinogen) [facility] AND [id number] 00:53:00 Test Item Value Reference Range Interpretation Comments UA Ketones (test code = UA Negative mg/dL Ketones) [facility] AND [id number] 00:53:00 Test Item Value Reference Range Interpretation Comments UA Glucose (test code = UA Negative mg/dL Glucose) [facility] AND [id number] 00:53:00 Test Item Value Reference Range Interpretation Comments UA Blood (test code = Small *ABN*(12/31/17 UA Blood) 7:53 PM) [facility] AND [id number] 00:53:00 Test Item Value Reference Range Interpretation Comments UA Bili (test code = Negative *NA*(12/31/17 UA Bili) 7:53 PM) [facility] AND [id number] 00:53:00 Test Item Value Reference Range Interpretation Comments UA Nitrite (test code Negative (12/31/17 7:53 = UA Nitrite) PM) [facility] AND [id number] 00:53:00 Test Item Value Reference Range Interpretation Comments UA Sq Epi (test code = UA Sq Occasional /LPF Epi) [facility] AND [id number] 00:53:00 Test Item Value Reference Range Interpretation Comments UA Leuk Est (test Negative (12/31/17 7:53 code = UA Leuk Est) PM) [facility] AND [id number] 00:53:00 Test Item Value Reference Range Interpretation Comments UA RBC (test code = 2 See_Comment [Automa maame message] The UA RBC) system which ge nerated this result transmit maame reference range : <=2. The reference range was not used to interpr et this result as aaliyah l/abnormal. [facility] AND [id number] 00:53:00 Test Item Value Reference Range Interpretation Comments UA WBC (test code = 3 See_Comment [Automa maame message] The UA WBC) system which ge nerated this result transmit maame reference range : <=5. The reference range was not used to interpr et this result as aaliyah l/abnormal. [facility] AND [id number] 00:53:00 Test Item Value Reference Range Interpretation Comments UA Mucus (test code = UA Mucus) Few /LPF [facility] AND [id number] 00:53:00 Test Item Value Reference Range Interpretation Comments UA pH (test code = UA pH) 5.0 1 5.0-8.0 [facility] AND [id number] 00:53:00 Test Item Value Reference Range Interpretation Comments UA Color (test code = Yellow *NA*(12/31/17 UA Color) 7:53 PM) [facility] AND [id number] 00:53:00 Test Item Value Reference Range Interpretation Comments UA Spec Grav (test code = UA Spec 1.010 1 Grav) [facility] AND [id number] 00:53:00 Test Item Value Reference Range Interpretation Comments UA Turbidity (test code = Clear (12/31/17 7:53 UA Turbidity) PM) [facility] AND [id number] 00:53:00 Test Item Value Reference Range Interpretation Comments UA Protein (test code = UA Negative mg/dL Protein) [facility] AND [id number] 00:53:00 Test Item Value Reference Range Interpretation Comments UA Urobilinogen (test code = UA <=1.0 mg/dL 0.1-1.0 Urobilinogen) [facility] AND [id number] 00:53:00 Test Item Value Reference Range Interpretation Comments UA Ketones (test code = UA Negative mg/dL Ketones) [facility] AND [id number] 00:53:00 Test Item Value Reference Range Interpretation Comments UA Glucose (test code = UA Negative mg/dL Glucose) [facility] AND [id number] 00:53:00 Test Item Value Reference Range Interpretation Comments UA Blood (test code = Small *ABN*(12/31/17 UA Blood) 7:53 PM) [facility] AND [id number] 00:53:00 Test Item Value Reference Range Interpretation Comments UA Bili (test code = Negative *NA*(12/31/17 UA Bili) 7:53 PM) [facility] AND [id number] 00:53:00 Test Item Value Reference Range Interpretation Comments UA Nitrite (test code Negative (12/31/17 7:53 = UA Nitrite) PM) [facility] AND [id number] 00:53:00 Test Item Value Reference Range Interpretation Comments UA Sq Epi (test code = UA Sq Occasional /LPF Epi) [facility] AND [id number] 00:53:00 Test Item Value Reference Range Interpretation Comments UA Leuk Est (test Negative (12/31/17 7:53 code = UA Leuk Est) PM) [facility] [id number] 00:53:00 Test Item Value Reference Range Interpretation Comments UA RBC (test code = 2 See_Comment [Automa maame message] The UA RBC) system which ge nerated this result transmit maame reference range : <=2. The reference range was not used to interpr et this result as aaliyah l/abnormal. [facility] [id number] 00:53:00 Test Item Value Reference Range Interpretation Comments UA WBC (test code = 3 See_Comment [Automa maame message] The UA WBC) system which ge nerated this result transmit maame reference range : <=5. The reference range was not used to interpr et this result as aaliyah l/abnormal. [facility] [id number] 00:53:00 Test Item Value Reference Range Interpretation Comments UA Mucus (test code = UA Mucus) Few /LPF [facility] [id number] 00:53:00 Test Item Value Reference Range Interpretation Comments UA pH (test code = UA pH) 5.0 1 5.0-8.0 [facility] [id number] 00:53:00 Test Item Value Reference Range Interpretation Comments UA Color (test code = Yellow *NA*(12/31/17 UA Color) 7:53 PM) [facility] [id number] 00:53:00 Test Item Value Reference Range Interpretation Comments UA Spec Grav (test code = UA Spec 1.010 1 Grav) [facility] [id number] 00:53:00 Test Item Value Reference Range Interpretation Comments UA Turbidity (test code = Clear (12/31/17 7:53 UA Turbidity) PM) [facility] [id number] 00:53:00 Test Item Value Reference Range Interpretation Comments UA Protein (test code = UA Negative mg/dL Protein) [facility] [id number] 00:48:00 Test Item Value Reference Range Interpretation Comments Troponin-I (test code no gt See_Comment [Auto mated message] The = Troponin-I) system which g enerated this result transmit maame reference range : <=0.40. The reference r ashley was not used to interpr et this result as aaliyah l/abnormal. [facility] [id number] 00:48:00 Test Item Value Reference Range Interpretation Comments Lipase Lvl (test code = Lipase Lvl) 205 73-393 [facility]2018-10-20 00:48:00 Test Item Value Reference Range Interpretation Comments Bili Total (test code = Bili Total) 0.3 0.2-1.3 [facility]2018-10-20 00:48:00 Test Item Value Reference Range Interpretation Comments Alk Phos (test code = Alk Phos) 125 39-136 [facility]2018-10-20 00:48:00 Test Item Value Reference Range Interpretation Comments Albumin Lvl (test code = Albumin Lvl) 3.9 3.5-5.0 [facility]2018-10-20 00:48:00 Test Item Value Reference Range Interpretation Comments Total Protein (test code = Total 7.9 6.4-8.4 Protein) [facility]2018-10-20 00:48:00 Test Item Value Reference Range Interpretation Comments AST (test code = AST) 15 See_Comment [Auto mated message] The system which ge nerated this result transmit maame reference range : <=37. The reference range was not used to interpr et this result as aaliyah l/abnormal. [facility]2018-10-20 00:48:00 Test Item Value Reference Range Interpretation Comments ALT (test code = ALT) 21 See_Comment [Auto mated message] The system which ge nerated this result transmit maame reference range : <=65. The reference range was not used to interpr et this result as aaliyah l/abnormal. [facility]2018-10-20 00:48:00 Test Item Value Reference Range Interpretation Comments A/G Ratio (test code = A/G Ratio) 1.0 1 0.7-1.6 [facility]2018-10-20 00:48:00 Test Item Value Reference Range Interpretation Comments Globulin (test code = Globulin) 4.0 2.7-4.2 [facility]2018-10-20 00:48:00 Test Item Value Reference Range Interpretation Comments B/C Ratio (test code = B/C Ratio) 16 1 6-25 [facility] LancasterRmrmfplIEXIGMMRGR9422-13-69 00:48:00 Test Item Value Reference Range Interpretation Comments MCV (test code = MCV) 88.4 80.0-94.0 [facility] LancasterHuwkvqjKKJUSKJLUU6343-22-27 00:48:00 Test Item Value Reference Range Interpretation Comments MCH (test code = MCH) 29.1 pg 27.0-31.0 [facility] LancasterVlstsxzZURSMKXWBC3097-72-61 00:48:00 Test Item Value Reference Range Interpretation Comments MCHC (test code = MCHC) 32.9 32.0-36.0 [facility] LancasterBpmhmdaRZZUYPFIQS5045-66-89 00:48:00 Test Item Value Reference Range Interpretation Comments RDW (test code = RDW) 15.7 11.5-14.5 [facility] Lanc[id number] 00:48:00 Test Item Value Reference Range Interpretation Comments WBC (test code = WBC) 7.2 3.7-10.4 [facility] LancasterSnucuhgUHGDMIOTIF3943-09-24 00:48:00 Test Item Value Reference Range Interpretation Comments RBC (test code = RBC) 4.16 4.70-6.10 [facility] LancasterFqntfcpSETGZGCRAD7294-77-24 00:48:00 Test Item Value Reference Range Interpretation Comments MPV (test code = MPV) 8.6 7.4-10.4 [facility] Lan[id number] 00:48:00 Test Item Value Reference Range Interpretation Comments Platelet (test code = Platelet) 175 133-450 [facility] LancasterDpyizteVCAUMJOZEU0261-67-16 00:48:00 Test Item Value Reference Range Interpretation Comments Monocytes (test code = Monocytes) 5.8 2.0-12.0 [facility] LancasterBpaeflsBHNAJBXUCF2127-84-39 00:48:00 Test Item Value Reference Range Interpretation Comments Eosinophils (test code = 3.0 See_Comment [A utomated message] The Eosinophils) system which ge nerated this result tra nsmitted reference range : <=4.0. The reference r ashley was not used to int erpret this result as normal/abnormal . [facility] LancasterPlljtadEOHMFISQPM0930-73-14 00:48:00 Test Item Value Reference Range Interpretation Comments Lymphocytes (test code = Lymphocytes) 28.2 20.0-40.0 [facility] LancasterBvedpsuSQMWFBUSIR3409-65-28 00:48:00 Test Item Value Reference Range Interpretation Comments Segs (test code = Segs) 62.4 45.0-75.0 [facility]UxjhtyuHEACAKHATL9362-65-00 00:48:00 Test Item Value Reference Range Interpretation Comments Monocytes # (test code 0.4 See_Comment [Aut omated message] The = Monocytes #) system which generated this result tra nsmitted reference range : <=0.8. The reference r ashley was not used to int erpret this result as normal/abnormal . [facility] LancasterNndqmttMEPDVVYUZH1557-93-59 00:48:00 Test Item Value Reference Range Interpretation Comments Eosinophils # (test code 0.2 See_Comment [A utomated message] The = Eosinophils #) system whic h generated this result tra nsmitted reference range : <=0.5. The reference r ashley was not used to int erpret this result as normal/abnormal . [facility] LancasterBnrjlleLHEQQLEAZX2281-56-96 00:48:00 Test Item Value Reference Range Interpretation Comments Basophils (test code = 0.6 See_Comment [Aut omated message] The Basophils) system which ge nerated this result tra nsmitted reference range : <=1.0. The reference r ashley was not used to int erpret this result as normal/abnormal . [facility] LancasterGpxvtsySQUAGIAZZX0160-63-42 00:48:00 Test Item Value Reference Range Interpretation Comments Neutrophils # (test code = Neutrophils 4.5 1.5-8.1 #) [facility] HospitalEzvgwdvBPXMBJZXKB8114-19-61 00:48:00 Test Item Value Reference Range Interpretation Comments Lymphocytes # (test code = Lymphocytes 2.0 1.0-5.5 #) [facility] [id number]:48:00 Test Item Value Reference Range Interpretation Comments Troponin-I (test code no gt See_Comment [Auto mated message] The = Troponin-I) system which g enerated this result transmit maame reference range : <=0.40. The reference r ashley was not used to interpr et this result as aaliyah l/abnormal. [facility] [id number] 00:48:00 Test Item Value Reference Range Interpretation Comments Lipase Lvl (test code = Lipase Lvl) 205 73-393 [facility] [id number] 00:48:00 Test Item Value Reference Range Interpretation Comments Bili Total (test code = Bili Total) 0.3 0.2-1.3 [facility]2018-10-20 00:48:00 Test Item Value Reference Range Interpretation Comments Alk Phos (test code = Alk Phos) 125 39-136 [facility]2018-10-20 00:48:00 Test Item Value Reference Range Interpretation Comments Albumin Lvl (test code = Albumin Lvl) 3.9 3.5-5.0 [facility]2018-10-20 00:48:00 Test Item Value Reference Range Interpretation Comments Total Protein (test code = Total 7.9 6.4-8.4 Protein) [facility]2018-10-20 00:48:00 Test Item Value Reference Range Interpretation Comments AST (test code = AST) 15 See_Comment [Auto mated message] The system which ge nerated this result transmit maame reference range : <=37. The reference range was not used to interpr et this result as aaliyah l/abnormal. [facility]2018-10-20 00:48:00 Test Item Value Reference Range Interpretation Comments ALT (test code = ALT) 21 See_Comment [Auto mated message] The system which ge nerated this result transmit maame reference range : <=65. The reference range was not used to interpr et this result as aaliyah l/abnormal. [facility]2018-10-20 00:48:00 Test Item Value Reference Range Interpretation Comments A/G Ratio (test code = A/G Ratio) 1.0 1 0.7-1.6 [facility]2018-10-20 00:48:00 Test Item Value Reference Range Interpretation Comments Globulin (test code = Globulin) 4.0 2.7-4.2 [facility]2018-10-20 00:48:00 Test Item Value Reference Range Interpretation Comments B/C Ratio (test code = B/C Ratio) 16 1 6-25 [facility] LancasterIyjywtoBBKANQFNXN4842-47-86 00:48:00 Test Item Value Reference Range Interpretation Comments MCV (test code = MCV) 88.4 80.0-94.0 [facility] LancasterDqqvxvdXFPIXPMCZY1476-37-43 00:48:00 Test Item Value Reference Range Interpretation Comments MCH (test code = MCH) 29.1 pg 27.0-31.0 [facility] LancasterGbhlholZQHDMLZKEJ3726-19-28 00:48:00 Test Item Value Reference Range Interpretation Comments MCHC (test code = MCHC) 32.9 32.0-36.0 [facility] LancasterWcumkvlSQDACBGSKY1813-49-21 00:48:00 Test Item Value Reference Range Interpretation Comments RDW (test code = RDW) 15.7 11.5-14.5 [facility] LancasterYzkejrvIWRKVJLGHM5532-65-08 00:48:00 Test Item Value Reference Range Interpretation Comments WBC (test code = WBC) 7.2 3.7-10.4 [facility] LancasterJdufsiaJBRYQYIYNU1947-50-19 00:48:00 Test Item Value Reference Range Interpretation Comments RBC (test code = RBC) 4.16 4.70-6.10 [facility] LancasterXoalxttAKIGZYJLPY4277-96-84 00:48:00 Test Item Value Reference Range Interpretation Comments MPV (test code = MPV) 8.6 7.4-10.4 [facility] LancasterFaiqoaaCOWEEJZXMZ7459-67-28 00:48:00 Test Item Value Reference Range Interpretation Comments Platelet (test code = Platelet) 175 133-450 [facility] LancasterQqchsjiBYWVQDVHOW0958-75-69 00:48:00 Test Item Value Reference Range Interpretation Comments Monocytes (test code = Monocytes) 5.8 2.0-12.0 [facility] LancasterEzsmqanYKGVZBEBLR3555-56-45 00:48:00 Test Item Value Reference Range Interpretation Comments Eosinophils (test code = 3.0 See_Comment [A utomated message] The Eosinophils) system which ge nerated this result tra nsmitted reference range : <=4.0. The reference r ashley was not used to int erpret this result as normal/abnormal . [facility] LancasterYtdhuynHUDTFWTGJD4155-27-66 00:48:00 Test Item Value Reference Range Interpretation Comments Lymphocytes (test code = Lymphocytes) 28.2 20.0-40.0 [facility] LancasterCnqiejsDBVPPUQIVO1364-72-34 00:48:00 Test Item Value Reference Range Interpretation Comments Segs (test code = Segs) 62.4 45.0-75.0 [facility] LancasterXvvpehlLKODBOSFRD9389-50-83 00:48:00 Test Item Value Reference Range Interpretation Comments Monocytes # (test code 0.4 See_Comment [Aut omated message] The = Monocytes #) system which generated this result tra nsmitted reference range : <=0.8. The reference r ashley was not used to int erpret this result as normal/abnormal . [facility] LancasterYsfdclcGMQTFIIZQU0102-67-65 00:48:00 Test Item Value Reference Range Interpretation Comments Eosinophils # (test code 0.2 See_Comment [A utomated message] The = Eosinophils #) system whic h generated this result tra nsmitted reference range : <=0.5. The reference r ashley was not used to int erpret this result as normal/abnormal . [facility] LancasterMaqtxjhWFRKJYCJYD4460-75-39 00:48:00 Test Item Value Reference Range Interpretation Comments Basophils (test code = 0.6 See_Comment [Aut omated message] The Basophils) system which ge nerated this result tra nsmitted reference range : <=1.0. The reference r ashley was not used to int erpret this result as normal/abnormal . [facility] LancasterFrdpmivATZACIGBOK3415-04-81 00:48:00 Test Item Value Reference Range Interpretation Comments Neutrophils # (test code = Neutrophils 4.5 1.5-8.1 #) [facility] LancasterDwfcpjzVLKHFGYKIU0586-42-62 00:48:00 Test Item Value Reference Range Interpretation Comments Lymphocytes # (test code = Lymphocytes 2.0 1.0-5.5 #) [facility]YLVCGTRWDXU3715[facility]-77 09:54:00 Test Item Value Reference Range Interpretation Comments AGAP (test code = AGAP) 10.7 10.0-20.0 [facility]NtybkvyYQSAGXTKFFBF4458-42-35 09:54:00 Test Item Value Reference Range Interpretation Comments eGFR (test code = eGFR) 41 [facility] HospitalEceylrnNTZHLXWNTAJX9062-54-28 09:54:00 Test Item Value Reference Range Interpretation Comments CO2 (test code = CO2) 23 24-32 [facility]jjgnrjEJZFFJDTRQUJ5608-32-84 09:54:00 Test Item Value Reference Range Interpretation Comments Calcium Lvl (test code = Calcium Lvl) 8.2 8.5-10.5 [facility]TaafhvpCXKVCHJAGIBO5735-72-77 09:54:00 Test Item Value Reference Range Interpretation Comments Chloride Lvl (test code = Chloride Lvl) 112 95-109 [facility]QsqexqyXZUSZORZXZLA6591-95-56 09:54:00 Test Item Value Reference Range Interpretation Comments Potassium Lvl (test code = Potassium 4.7 3.5-5.1 Lvl) [facility] HospitalNkhsuszPKPWQFUFTRJL1765-45-24 09:54:00 Test Item Value Reference Range Interpretation Comments BUN (test code = BUN) 43 7-22 [facility]ZtwgvyjNTBKSDVRGALN9637-09-57 09:54:00 Test Item Value Reference Range Interpretation Comments Creatinine Lvl (test code = Creatinine 1.88 0.50-1.40 Lvl) [facility]HpwhpkiLDFFAMTQHJSQ3856-86-22 09:54:00 Test Item Value Reference Range Interpretation Comments Sodium Lvl (test code = Sodium Lvl) 141 135-145 [facility]CednqvdHPDBPDMXYDWI0128-22-32 09:54:00 Test Item Value Reference Range Interpretation Comments Glucose Lvl (test code = Glucose Lvl) 84 70-99 [facility]TnmurxmCJEZXKSGKZ9429-81-06 09:54:00 Test Item Value Reference Range Interpretation Comments RDW (test code = RDW) 14.9 11.5-14.5 [facility] LancasterHcnceasESRGFGZCYN4656-37-81 09:54:00 Test Item Value Reference Range Interpretation Comments Platelet (test code = Platelet) 226 133-450 [facility] LancasterBqrttgfFOPIHSLHGD8509-11-48 09:54:00 Test Item Value Reference Range Interpretation Comments MPV (test code = MPV) 7.2 7.4-10.4 [facility] LancasterKudmxcvYEKNMHGLHM7716-56-70 09:54:00 Test Item Value Reference Range Interpretation Comments MCHC (test code = MCHC) 33.7 32.0-36.0 [facility] LancasterSkwqksaSEHDNVFMEJ4262-39-64 09:54:00 Test Item Value Reference Range Interpretation Comments MCH (test code = MCH) 30.0 pg 27.0-31.0 [facility] LancasterSyxgjwwPWMDQCCDGI6400-48-53 09:54:00 Test Item Value Reference Range Interpretation Comments MCV (test code = MCV) 89.2 80.0-94.0 [facility] LancasterHnqocqrESVLEIUOWL0486-42-52 09:54:00 Test Item Value Reference Range Interpretation Comments Hct (test code = Hct) 32.9 42.0-54.0 [facility] LancasterPgaysxtYPOXONFSYW0862-43-52 09:54:00 Test Item Value Reference Range Interpretation Comments RBC (test code = RBC) 3.69 4.70-6.10 [facility] LancasterAaejcvoQBNVHMAZFK1485-54-17 09:54:00 Test Item Value Reference Range Interpretation Comments WBC (test code = WBC) 7.4 3.7-10.4 [facility] LancasterKzltrukBGRQNEODXY4674-91-24 09:54:00 Test Item Value Reference Range Interpretation Comments Hgb (test code = Hgb) 11.1 14.0-18.0 [facility] LancasterZznrtxkWMFCXWOUSO2845-10-20 09:54:00 Test Item Value Reference Range Interpretation Comments Monocytes # (test code 0.5 See_Comment [Aut omated message] The = Monocytes #) system which generated this result tra nsmitted reference range : <=0.8. The reference r ashley was not used to int erpret this result as normal/abnormal . [facility] LancasterHogwjcgIDOCHYKWUE0029-11-39 09:54:00 Test Item Value Reference Range Interpretation Comments Lymphocytes # (test code = Lymphocytes 3.1 1.0-5.5 #) [facility] LancasterFwxdtfeNNUQHWYEUK2238-72-52 09:54:00 Test Item Value Reference Range Interpretation Comments Neutrophils # (test code = Neutrophils 3.4 1.5-8.1 #) [facility] LancasterSynsjqdIAGJPYYBZP1379-61-03 09:54:00 Test Item Value Reference Range Interpretation Comments Eosinophils # (test code 0.3 See_Comment [A utomated message] The = Eosinophils #) system whic h generated this result tra nsmitted reference range : <=0.5. The reference r ashley was not used to int erpret this result as normal/abnormal . [facility] LancasterNbduqarOWWIRBIERJ7931-89-38 09:54:00 Test Item Value Reference Range Interpretation Comments Lymphocytes (test code = Lymphocytes) 42.4 20.0-40.0 [facility] LancasterPwjbjzmYYPAPBILVR2819-88-88 09:54:00 Test Item Value Reference Range Interpretation Comments Segs (test code = Segs) 46.4 45.0-75.0 [facility] LancasterVrseoxjRJQBOUHENZ3627-61-83 09:54:00 Test Item Value Reference Range Interpretation Comments Monocytes (test code = Monocytes) 6.5 2.0-12.0 [facility] LancasterZmiaqcrWUIUSCQBSP9221-26-31 09:54:00 Test Item Value Reference Range Interpretation Comments Basophils (test code = 0.5 See_Comment [Aut omated message] The Basophils) system which ge nerated this result tra nsmitted reference range : <=1.0. The reference r ashley was not used to int erpret this result as normal/abnormal . [facility] LancasterWnnionyITDBARCRMV6490-87-45 09:54:00 Test Item Value Reference Range Interpretation Comments Eosinophils (test code = 4.2 See_Comment [A utomated message] The Eosinophils) system which ge nerated this result tra nsmitted reference range : <=4.0. The reference r ashley was not used to int erpret this result as normal/abnormal . [facility] HospitalCqnhupaRSRZLYPFGDCU3610-04-59 09:54:00 Test Item Value Reference Range Interpretation Comments AGAP (test code = AGAP) 10.7 10.0-20.0 [facility] HospitalHgykzkjIOXJKTZPNDZC1182-55-83 09:54:00 Test Item Value Reference Range Interpretation Comments eGFR (test code = eGFR) 41 [facility]VodkvslTRKBBETSMMIS1087-04-44 09:54:00 Test Item Value Reference Range Interpretation Comments CO2 (test code = CO2) 23 24-32 [facility]KzlbbyvOXHNTVMYVHHF6982-33-65 09:54:00 Test Item Value Reference Range Interpretation Comments Calcium Lvl (test code = Calcium Lvl) 8.2 8.5-10.5 [facility] HospitalRrqhnqqWKNARVXUCPTQ4348-73-95 09:54:00 Test Item Value Reference Range Interpretation Comments Chloride Lvl (test code = Chloride Lvl) 112 95-109 [facility] HospitalYmgjaubPKWPPMLLJZDV2908-05-00 09:54:00 Test Item Value Reference Range Interpretation Comments Potassium Lvl (test code = Potassium 4.7 3.5-5.1 Lvl) [facility] HospitalWtnhwykLGOSYHJGQNWU4043-92-46 09:54:00 Test Item Value Reference Range Interpretation Comments BUN (test code = BUN) 43 7-22 [facility] HospitalOmqomaxSJARRMFYWSMF9920-37-46 09:54:00 Test Item Value Reference Range Interpretation Comments Creatinine Lvl (test code = Creatinine 1.88 0.50-1.40 Lvl) [facility] HospitalUyfvwwxDOQBWBRPHJEI9957-99-66 09:54:00 Test Item Value Reference Range Interpretation Comments Sodium Lvl (test code = Sodium Lvl) 141 135-145 [facility]PajrwhkOJHFEFQSWSZW2735-26-21 09:54:00 Test Item Value Reference Range Interpretation Comments Glucose Lvl (test code = Glucose Lvl) 84 70-99 [facility] LancasterZjmgzslSMOSHBEBBV4473-72-28 09:54:00 Test Item Value Reference Range Interpretation Comments RDW (test code = RDW) 14.9 11.5-14.5 [facility] LancasterKkcswpmMOBVWSFMMN9011-78-79 09:54:00 Test Item Value Reference Range Interpretation Comments Platelet (test code = Platelet) 226 133-450 [facility] LancasterAodxbwpGIOXIKCHJF7511-58-28 09:54:00 Test Item Value Reference Range Interpretation Comments MPV (test code = MPV) 7.2 7.4-10.4 [facility] LancasterBnjvbmtEMSSNJAWTT0097-76-09 09:54:00 Test Item Value Reference Range Interpretation Comments MCHC (test code = MCHC) 33.7 32.0-36.0 [facility] LancasterSknbsqxGCIGXWUCJC1463-44-90 09:54:00 Test Item Value Reference Range Interpretation Comments MCH (test code = MCH) 30.0 pg 27.0-31.0 [facility] LancasterRybghqvFJUOYZPNNQ1678-04-33 09:54:00 Test Item Value Reference Range Interpretation Comments MCV (test code = MCV) 89.2 80.0-94.0 [facility] LancasterGhmpxlqGGSPOLGHEP7556-22-39 09:54:00 Test Item Value Reference Range Interpretation Comments Hct (test code = Hct) 32.9 42.0-54.0 [facility] LancasterOinxtptJCGFFVEUDZ8882-64-18 09:54:00 Test Item Value Reference Range Interpretation Comments RBC (test code = RBC) 3.69 4.70-6.10 [facility] LancasterQfthpgqXJUHXSVRDC6629-45-76 09:54:00 Test Item Value Reference Range Interpretation Comments WBC (test code = WBC) 7.4 3.7-10.4 [facility] LancasterYpmsxrySICLFUAITJ5577-96-92 09:54:00 Test Item Value Reference Range Interpretation Comments Hgb (test code = Hgb) 11.1 14.0-18.0 [facility] LancasterPcqdskgXSRWGOERHC1364-14-53 09:54:00 Test Item Value Reference Range Interpretation Comments Monocytes # (test code 0.5 See_Comment [Aut omated message] The = Monocytes #) system which generated this result tra nsmitted reference range : <=0.8. The reference r ashley was not used to int erpret this result as normal/abnormal . [facility] LancasterHtutshkTXTLBGHLMC0027-13-74 09:54:00 Test Item Value Reference Range Interpretation Comments Lymphocytes # (test code = Lymphocytes 3.1 1.0-5.5 #) [facility] LancasterLsvqqejWTYSHYBITU3664-87-57 09:54:00 Test Item Value Reference Range Interpretation Comments Neutrophils # (test code = Neutrophils 3.4 1.5-8.1 #) [facility] LancasterUgjeurmQANYZMCZDT3933-76-13 09:54:00 Test Item Value Reference Range Interpretation Comments Eosinophils # (test code 0.3 See_Comment [A utomated message] The = Eosinophils #) system whic h generated this result tra nsmitted reference range : <=0.5. The reference r ashley was not used to int erpret this result as normal/abnormal . [facility] LancasterYfpwtpbPMCTUADACE5503-54-86 09:54:00 Test Item Value Reference Range Interpretation Comments Lymphocytes (test code = Lymphocytes) 42.4 20.0-40.0 [facility] LancasterIrzrtsuSKVICXDCSY8004-39-17 09:54:00 Test Item Value Reference Range Interpretation Comments Segs (test code = Segs) 46.4 45.0-75.0 [facility] LancasterKccwuefTCIFREJBAL0214-45-64 09:54:00 Test Item Value Reference Range Interpretation Comments Monocytes (test code = Monocytes) 6.5 2.0-12.0 [facility] LancasterEvovxwtWLAPMQIRLC6249-84-63 09:54:00 Test Item Value Reference Range Interpretation Comments Basophils (test code = 0.5 See_Comment [Aut omated message] The Basophils) system which ge nerated this result tra nsmitted reference range : <=1.0. The reference r ashley was not used to int erpret this result as normal/abnormal . [facility] LancasterKivnszrIZAACYVBBM1932-54-70 09:54:00 Test Item Value Reference Range Interpretation Comments Eosinophils (test code = 4.2 See_Comment [A utomated message] The Eosinophils) system which ge nerated this result tra nsmitted reference range : <=4.0. The reference r ashley was not used to int erpret this result as normal/abnormal . [facility]2018-10-01 01:22:00 Test Item Value Reference Range Interpretation Comments Lactic Acid Lvl (test code = Lactic 0.5 0.5-2.2 Acid Lvl) [facility]2018-10-01 01:22:00 Test Item Value Reference Range Interpretation Comments Lactic Acid Lvl (test code = Lactic 0.5 0.5-2.2 Acid Lvl) [facility] AND [id number] 22:31:00 Test Item Value Reference Range Interpretation Comments UA Sq Epi (test code = UA Sq Epi) None Seen [facility] AND [id number] 22:31:00 Test Item Value Reference Range Interpretation Comments UA Color (test code = UA Color) STRAW [facility] AND [id number] 22:31:00 Test Item Value Reference Range Interpretation Comments UA Urobilinogen (test code = UA <=1.0 mg/dL 0.1-1.0 Urobilinogen) [facility] AND [id number] 22:31:00 Test Item Value Reference Range Interpretation Comments UA Leuk Est (test Negative (12/12/17 5:31 code = UA Leuk Est) PM) [facility] AND [id number] 22:31:00 Test Item Value Reference Range Interpretation Comments UA Nitrite (test code Negative (12/12/17 5:31 = UA Nitrite) PM) [facility] AND [id number] 22:31:00 Test Item Value Reference Range Interpretation Comments UA Blood (test code = Negative (12/12/17 5:31 UA Blood) PM) [facility] AND [id number] 22:31:00 Test Item Value Reference Range Interpretation Comments UA Bili (test code = Negative *NA*(12/12/17 UA Bili) 5:31 PM) [facility] AND [id number] 22:31:00 Test Item Value Reference Range Interpretation Comments UA pH (test code = UA pH) 6.0 1 5.0-8.0 [facility] AND [id number] 22:31:00 Test Item Value Reference Range Interpretation Comments UA Glucose (test code = UA Negative mg/dL Glucose) [facility] AND [id number] 22:31:00 Test Item Value Reference Range Interpretation Comments UA Protein (test code = UA Negative mg/dL Protein) [facility] AND [id number] 22:31:00 Test Item Value Reference Range Interpretation Comments UA Spec Grav (test code = UA Spec 1.006 1 Grav) [facility] AND [id number] 22:31:00 Test Item Value Reference Range Interpretation Comments UA Ketones (test code = UA Negative mg/dL Ketones) [facility] AND [id number] 22:31:00 Test Item Value Reference Range Interpretation Comments UA Turbidity (test code = Clear (12/12/17 5:31 UA Turbidity) PM) [facility] AND [id number] 22:31:00 Test Item Value Reference Range Interpretation Comments UA Sq Epi (test code = UA Sq Epi) None Seen [facility] AND [id number] 22:31:00 Test Item Value Reference Range Interpretation Comments UA Color (test code = UA Color) STRAW [facility] AND [id number] 22:31:00 Test Item Value Reference Range Interpretation Comments UA Urobilinogen (test code = UA <=1.0 mg/dL 0.1-1.0 Urobilinogen) [facility] AND [id number] 22:31:00 Test Item Value Reference Range Interpretation Comments UA Leuk Est (test Negative (12/12/17 5:31 code = UA Leuk Est) PM) [facility] AND [id number] 22:31:00 Test Item Value Reference Range Interpretation Comments UA Nitrite (test code Negative (12/12/17 5:31 = UA Nitrite) PM) [facility] AND [id number] 22:31:00 Test Item Value Reference Range Interpretation Comments UA Blood (test code = Negative (12/12/17 5:31 UA Blood) PM) [facility] AND [id number] 22:31:00 Test Item Value Reference Range Interpretation Comments UA Bili (test code = Negative *NA*(12/12/17 UA Bili) 5:31 PM) [facility] AND [id number] 22:31:00 Test Item Value Reference Range Interpretation Comments UA pH (test code = UA pH) 6.0 1 5.0-8.0 [facility] AND [id number] 22:31:00 Test Item Value Reference Range Interpretation Comments UA Glucose (test code = UA Negative mg/dL Glucose) [facility] AND [id number] 22:31:00 Test Item Value Reference Range Interpretation Comments UA Protein (test code = UA Negative mg/dL Protein) [facility] AND [id number] 22:31:00 Test Item Value Reference Range Interpretation Comments UA Spec Grav (test code = UA Spec 1.006 1 Grav) [facility] AND [id number] 22:31:00 Test Item Value Reference Range Interpretation Comments UA Ketones (test code = UA Negative mg/dL Ketones) [facility] AND [id number] 22:31:00 Test Item Value Reference Range Interpretation Comments UA Turbidity (test code = Clear (12/12/17 5:31 UA Turbidity) PM) [facility] LancasterSefslegJBUFOMIUVJ7914-84-89 21:59:00 Test Item Value Reference Range Interpretation Comments Monocytes (test code = Monocytes) 5.2 2.0-12.0 [facility] LancasterVsvgethSHZFEPLKYY6181-95-29 21:59:00 Test Item Value Reference Range Interpretation Comments Lymphocytes (test code = Lymphocytes) 35.2 20.0-40.0 [facility] LancasterJhrjqoiWTYUIMHQVQ6186-15-61 21:59:00 Test Item Value Reference Range Interpretation Comments Neutrophils # (test code = Neutrophils 4.5 1.5-8.1 #) [facility] LancasterHkfojzvKYUBBIUAOV4313-07-09 21:59:00 Test Item Value Reference Range Interpretation Comments Basophils (test code = 0.4 See_Comment [Aut omated message] The Basophils) system which ge nerated this result tra nsmitted reference range : <=1.0. The reference r ashley was not used to int erpret this result as normal/abnormal . [facility] LancasterWrxuvyqPUVMLDKLLP0063-61-65 21:59:00 Test Item Value Reference Range Interpretation Comments Lymphocytes # (test code = Lymphocytes 2.8 1.0-5.5 #) [facility] LancasterLbeialhSLKSAPWUUG8632-60-87 21:59:00 Test Item Value Reference Range Interpretation Comments Eosinophils # (test code 0.2 See_Comment [A utomated message] The = Eosinophils #) system whic h generated this result tra nsmitted reference range : <=0.5. The reference r ashley was not used to int erpret this result as normal/abnormal . [facility] LancasterTidbpjbFBJRTICCTA2743-29-76 21:59:00 Test Item Value Reference Range Interpretation Comments Eosinophils (test code = 3.0 See_Comment [A utomated message] The Eosinophils) system which ge nerated this result tra nsmitted reference range : <=4.0. The reference r ashley was not used to int erpret this result as normal/abnormal . [facility] LancasterKflcqskWZJBKNGIDY4819-52-44 21:59:00 Test Item Value Reference Range Interpretation Comments Monocytes # (test code 0.4 See_Comment [Aut omated message] The = Monocytes #) system which generated this result tra nsmitted reference range : <=0.8. The reference r ashley was not used to int erpret this result as normal/abnormal . [facility] LancasterBsapjirPSOHTDBBKR5823-57-80 21:59:00 Test Item Value Reference Range Interpretation Comments Platelet (test code = Platelet) 232 133-450 [facility] LancasterQdpipwuOUIKHSNCLK4089-74-74 21:59:00 Test Item Value Reference Range Interpretation Comments MPV (test code = MPV) 7.3 7.4-10.4 [facility] LancasterVkyoarcQXHNBHRDIE1708-95-60 21:59:00 Test Item Value Reference Range Interpretation Comments RBC (test code = RBC) 3.65 4.70-6.10 [facility] LancasterOjlefnnZLIGYOCUNI7104-87-19 21:59:00 Test Item Value Reference Range Interpretation Comments WBC (test code = WBC) 7.9 3.7-10.4 [facility] LancasterDopdyqsKKUMCDAGPH8080-21-38 21:59:00 Test Item Value Reference Range Interpretation Comments Hgb (test code = Hgb) 11.1 14.0-18.0 [facility] LancasterDrpxuyiTKGUBYGDMI2166-64-27 21:59:00 Test Item Value Reference Range Interpretation Comments MCHC (test code = MCHC) 34.2 32.0-36.0 [facility] LancasterWdfhtlhHCFNIKEMQC5879-82-25 21:59:00 Test Item Value Reference Range Interpretation Comments MCH (test code = MCH) 30.5 pg 27.0-31.0 [facility] LancasterCgktxqkIMXBIXNIBV9793-01-12 21:59:00 Test Item Value Reference Range Interpretation Comments Hct (test code = Hct) 32.5 42.0-54.0 [facility] LancasterGnsyfxwFTAVSRKQUI2187-55-99 21:59:00 Test Item Value Reference Range Interpretation Comments MCV (test code = MCV) 89.1 80.0-94.0 [facility] LancasterKcqhbiuMYIBQVNWUM8245-76-42 21:59:00 Test Item Value Reference Range Interpretation Comments RDW (test code = RDW) 14.8 11.5-14.5 [facility] LancasterFhsbvoyMNUWELORWV1196-01-27 21:59:00 Test Item Value Reference Range Interpretation Comments PT (test code = PT) 12.0 s 12.0-14.7 [facility] LancasterAdndmxeSXIVZQPNAR7809-06-46 21:59:00 Test Item Value Reference Range Interpretation Comments INR (test code = INR) 0.89 1 0.85-1.17 [facility] LancasterZqwtfupWDXKQBTDCA3352-61-41 21:59:00 Test Item Value Reference Range Interpretation Comments PTT (test code = PTT) 28.5 s 22.9-35.8 [facility]2018-09-30 21:59:00 Test Item Value Reference Range Interpretation Comments Lipase Lvl (test code = Lipase Lvl) 224 73-393 [facility]2018-09-30 21:59:00 Test Item Value Reference Range Interpretation Comments Glucose Lvl (test code = Glucose Lvl) 102 70-99 [facility]2018-09-30 21:59:00 Test Item Value Reference Range Interpretation Comments BUN (test code = BUN) 48 7-22 [facility]2018-09-30 21:59:00 Test Item Value Reference Range Interpretation Comments Bili Total (test code = Bili Total) 0.2 0.2-1.3 [facility]2018-09-30 21:59:00 Test Item Value Reference Range Interpretation Comments Alk Phos (test code = Alk Phos) 109 39-136 [facility]2018-09-30 21:59:00 Test Item Value Reference Range Interpretation Comments Calcium Lvl (test code = Calcium Lvl) 8.4 8.5-10.5 [facility]2018-09-30 21:59:00 Test Item Value Reference Range Interpretation Comments Total Protein (test code = Total 7.0 6.4-8.4 Protein) [facility]2018-09-30 21:59:00 Test Item Value Reference Range Interpretation Comments Albumin Lvl (test code = Albumin Lvl) 3.3 3.5-5.0 [facility]2018-09-30 21:59:00 Test Item Value Reference Range Interpretation Comments AST (test code = AST) 14 See_Comment [Auto mated message] The system which ge nerated this result transmit maame reference range : <=37. The reference range was not used to interpr et this result as aaliyah l/abnormal. [facility]2018-09-30 21:59:00 Test Item Value Reference Range Interpretation Comments ALT (test code = ALT) 17 See_Comment [Auto mated message] The system which ge nerated this result transmit maame reference range : <=65. The reference range was not used to interpr et this result as aaliyah l/abnormal. [facility]2018-09-30 21:59:00 Test Item Value Reference Range Interpretation Comments Sodium Lvl (test code = Sodium Lvl) 140 135-145 [facility]2018-09-30 21:59:00 Test Item Value Reference Range Interpretation Comments Chloride Lvl (test code = Chloride Lvl) 108 95-109 [facility]2018-09-30 21:59:00 Test Item Value Reference Range Interpretation Comments Potassium Lvl (test code = Potassium 4.7 3.5-5.1 Lvl) [facility]2018-09-30 21:59:00 Test Item Value Reference Range Interpretation Comments CO2 (test code = CO2) 26 24-32 [facility]2018-09-30 21:59:00 Test Item Value Reference Range Interpretation Comments Creatinine Lvl (test code = Creatinine 2.02 0.50-1.40 Lvl) [facility]2018-09-30 21:59:00 Test Item Value Reference Range Interpretation Comments eGFR (test code = eGFR) 37 [facility]2018-09-30 21:59:00 Test Item Value Reference Range Interpretation Comments AGAP (test code = AGAP) 10.7 10.0-20.0 [facility]2018-09-30 21:59:00 Test Item Value Reference Range Interpretation Comments Globulin (test code = Globulin) 3.7 2.7-4.2 [facility]2018-09-30 21:59:00 Test Item Value Reference Range Interpretation Comments B/C Ratio (test code = B/C Ratio) 24 1 6-25 [facility]2018-09-30 21:59:00 Test Item Value Reference Range Interpretation Comments A/G Ratio (test code = A/G Ratio) 0.9 1 0.7-1.6 [facility] LancasterZnjnuupLXIWKXNQPX3507-41-16 21:59:00 Test Item Value Reference Range Interpretation Comments Segs (test code = Segs) 56.2 45.0-75.0 [facility] LancasterRkvrujuGEZIQOWQUI1697-54-00 21:59:00 Test Item Value Reference Range Interpretation Comments Monocytes (test code = Monocytes) 5.2 2.0-12.0 [facility] LancasterKvebhvnSGLPCPAYAW4261-84-97 21:59:00 Test Item Value Reference Range Interpretation Comments Lymphocytes (test code = Lymphocytes) 35.2 20.0-40.0 [facility] LancasterAxvqhmeRSGAUZQQFM7878-36-55 21:59:00 Test Item Value Reference Range Interpretation Comments Neutrophils # (test code = Neutrophils 4.5 1.5-8.1 #) [facility] LancasterDuokmltFVZBXXMLTB9181-14-36 21:59:00 Test Item Value Reference Range Interpretation Comments Basophils (test code = 0.4 See_Comment [Aut omated message] The Basophils) system which ge nerated this result tra nsmitted reference range : <=1.0. The reference r ashley was not used to int erpret this result as normal/abnormal . [facility]LizszzrGHWJEZCBTH0743-50-65 21:59:00 Test Item Value Reference Range Interpretation Comments Lymphocytes # (test code = Lymphocytes 2.8 1.0-5.5 #) [facility] LancasterYjivcwfOJNIUMTTXH5425-75-04 21:59:00 Test Item Value Reference Range Interpretation Comments Eosinophils # (test code 0.2 See_Comment [A utomated message] The = Eosinophils #) system [facility] generated this result tra nsmitted reference range : <=0.5. The reference r ashley was not used to int erpret this result as normal/abnormal . [facility] LancasterKmkkkrbITASGCXOOV4052-24-48 21:59:00 Test Item Value Reference Range Interpretation Comments Eosinophils (test code = 3.0 See_Comment [A utomated message] The Eosinophils) system which ge nerated this result tra nsmitted reference range : <=4.0. The reference r ashley was not used to int erpret this result as normal/abnormal . [facility] LancasterGxgfdzfLNDHDWMSBA6678-18-88 21:59:00 Test Item Value Reference Range Interpretation Comments Monocytes # (test code 0.4 See_Comment [Aut omated message] The = Monocytes #) system which generated this result tra nsmitted reference range : <=0.8. The reference r ashley was not used to int erpret this result as normal/abnormal . [facility] LancasterKvdkrsiJYOOJPPRKI9014-10-49 21:59:00 Test Item Value Reference Range Interpretation Comments Platelet (test code = Platelet) 232 133-450 [facility] LancasterAcfycjvFESAXIVQKY5928-62-19 21:59:00 Test Item Value Reference Range Interpretation Comments MPV (test code = MPV) 7.3 7.4-10.4 [facility] LancasterVuffwrnKUYSKCTRXU6688-54-73 21:59:00 Test Item Value Reference Range Interpretation Comments RBC (test code = RBC) 3.65 4.70-6.10 [facility] LancasterSssmmtvSLAPSQXYHH6108-73-98 21:59:00 Test Item Value Reference Range Interpretation Comments WBC (test code = WBC) 7.9 3.7-10.4 [facility] LancasterYjbihsaSWIDGTBZJT0824-41-62 21:59:00 Test Item Value Reference Range Interpretation Comments Hgb (test code = Hgb) 11.1 14.0-18.0 [facility] LancasterIfngxxyCLOUZZGNEP2293-94-78 21:59:00 Test Item Value Reference Range Interpretation Comments MCHC (test code = MCHC) 34.2 32.0-36.0 [facility] LancasterRkqkffuBBZAXJTMEC6171-39-93 21:59:00 Test Item Value Reference Range Interpretation Comments MCH (test code = MCH) 30.5 pg 27.0-31.0 [facility] LancasterUoiwvneXSIBMOMQWK6098-09-95 21:59:00 Test Item Value Reference Range Interpretation Comments Hct (test code = Hct) 32.5 42.0-54.0 [facility] LancasterTuxhusrYOUWQKRDXY1986-38-93 21:59:00 Test Item Value Reference Range Interpretation Comments MCV (test code = MCV) 89.1 80.0-94.0 [facility] LancasterDehqhafSCLCSVPBET6533-76-18 21:59:00 Test Item Value Reference Range Interpretation Comments RDW (test code = RDW) 14.8 11.5-14.5 [facility] LancasterZobpnkvWCANHSJFNN5751-92-50 21:59:00 Test Item Value Reference Range Interpretation Comments PT (test code = PT) 12.0 s 12.0-14.7 [facility] LancasterJimpfpwRIWQJSLRSI6155-44-91 21:59:00 Test Item Value Reference Range Interpretation Comments INR (test code = INR) 0.89 1 0.85-1.17 [facility] LancasterJqatjuzBOPJHVGMFJ8422-53-06 21:59:00 Test Item Value Reference Range Interpretation Comments PTT (test code = PTT) 28.5 s 22.9-35.8 [facility]2018-09-30 21:59:00 Test Item Value Reference Range Interpretation Comments Lipase Lvl (test code = Lipase Lvl) 224 73-393 [facility]2018-09-30 21:59:00 Test Item Value Reference Range Interpretation Comments Glucose Lvl (test code = Glucose Lvl) 102 70-99 [facility]2018-09-30 21:59:00 Test Item Value Reference Range Interpretation Comments BUN (test code = BUN) 48 7-22 [facility]2018-09-30 21:59:00 Test Item Value Reference Range Interpretation Comments Bili Total (test code = Bili Total) 0.2 0.2-1.3 [facility]2018-09-30 21:59:00 Test Item Value Reference Range Interpretation Comments Alk Phos (test code = Alk Phos) 109 39-136 [facility]2018-09-30 21:59:00 Test Item Value Reference Range Interpretation Comments Calcium Lvl (test code = Calcium Lvl) 8.4 8.5-10.5 [facility]2018-09-30 21:59:00 Test Item Value Reference Range Interpretation Comments Total Protein (test code = Total 7.0 6.4-8.4 Protein) [facility]2018-09-30 21:59:00 Test Item Value Reference Range Interpretation Comments Albumin Lvl (test code = Albumin Lvl) 3.3 3.5-5.0 [place] 175328-09-30 21:59:00 Test Item Value Reference Range Interpretation Comments AST (test code = AST) 14 See_Comment [Auto mated message] The system which ge nerated this result transmit maame reference range : <=37. The reference range was not used to interpr et this result as aaliyah l/abnormal. [facility]2018-09-30 21:59:00 Test Item Value Reference Range Interpretation Comments ALT (test code = ALT) 17 See_Comment [Auto mated message] The system which ge nerated this result transmit maame reference range : <=65. The reference range was not used to interpr et this result as aaliyah l/abnormal. [facility]2018-09-30 21:59:00 Test Item Value Reference Range Interpretation Comments Sodium Lvl (test code = Sodium Lvl) 140 135-145 [facility]2018-09-30 21:59:00 Test Item Value Reference Range Interpretation Comments Chloride Lvl (test code = Chloride Lvl) 108 95-109 [facility]2018-09-30 21:59:00 Test Item Value Reference Range Interpretation Comments Potassium Lvl (test code = Potassium 4.7 3.5-5.1 Lvl) [facility]2018-09-30 21:59:00 Test Item Value Reference Range Interpretation Comments CO2 (test code = CO2) 26 24-32 [facility]2018-09-30 21:59:00 Test Item Value Reference Range Interpretation Comments Creatinine Lvl (test code = Creatinine 2.02 0.50-1.40 Lvl) [facility]2018-09-30 21:59:00 Test Item Value Reference Range Interpretation Comments eGFR (test code = eGFR) 37 [facility]2018-09-30 21:59:00 Test Item Value Reference Range Interpretation Comments AGAP (test code = AGAP) 10.7 10.0-20.0 [facility]2018-09-30 21:59:00 Test Item Value Reference Range Interpretation Comments Globulin (test code = Globulin) 3.7 2.7-4.2 [facility]2018-09-30 21:59:00 Test Item Value Reference Range Interpretation Comments B/C Ratio (test code = B/C Ratio) 24 1 6-25 [facility]2018-09-30 21:59:00 Test Item Value Reference Range Interpretation Comments A/G Ratio (test code = A/G Ratio) 0.9 1 0.7-1.6 [facility] LancasterMghmyikVQERESMDOL8028-72-66 21:59:00 Test Item Value Reference Range Interpretation Comments Segs (test code = Segs) 56.2 45.0-75.0 [facility]2018-09-19 09:51:00 Test Item Value Reference Range Interpretation Comments Magnesium Lvl (test code = Magnesium 1.8 1.8-2.4 Lvl) [place] 175328-09-19 09:51:00 Test Item Value Reference Range Interpretation Comments eGFR (test code = eGFR) 40 [place] 175328-09-19 09:51:00 Test Item Value Reference Range Interpretation Comments Globulin (test code = Globulin) 3.4 2.7-4.2 [place] 175328-09-19 09:51:00 Test Item Value Reference Range Interpretation Comments A/G Ratio (test code = A/G Ratio) 1.0 1 0.7-1.6 [place] 175328-09-19 09:51:00 Test Item Value Reference Range Interpretation Comments AGAP (test code = AGAP) 13.4 10.0-20.0 [facility]2018-09-19 09:51:00 Test Item Value Reference Range Interpretation Comments B/C Ratio (test code = B/C Ratio) 11 1 6-25 [place] 175328-09-19 09:51:00 Test Item Value Reference Range Interpretation Comments Alk Phos (test code = Alk Phos) 102 39-136 [facility]2018-09-19 09:51:00 Test Item Value Reference Range Interpretation Comments Bili Total (test code = Bili Total) 0.2 0.2-1.3 [facility]2018-09-19 09:51:00 Test Item Value Reference Range Interpretation Comments AST (test code = AST) 33 See_Comment [Auto mated message] The system which ge nerated this result transmit maame reference range : <=37. The reference range was not used to interpr et this result as aaliyah l/abnormal. [place] 175328-09-19 09:51:00 Test Item Value Reference Range Interpretation Comments ALT (test code = ALT) 34 See_Comment [Auto mated message] The system which ge nerated this result transmit maame reference range : <=65. The reference range was not used to interpr et this result as aaliyah l/abnormal. [place] 175328-09-19 09:51:00 Test Item Value Reference Range Interpretation Comments Albumin Lvl (test code = Albumin Lvl) 3.5 3.5-5.0 [facility]2018-09-19 09:51:00 Test Item Value Reference Range Interpretation Comments CO2 (test code = CO2) 20 24-32 [facility]2018-09-19 09:51:00 Test Item Value Reference Range Interpretation Comments Calcium Lvl (test code = Calcium Lvl) 8.2 8.5-10.5 [facility]2018-09-19 09:51:00 Test Item Value Reference Range Interpretation Comments Total Protein (test code = Total 6.9 6.4-8.4 Protein) [facility]2018-09-19 09:51:00 Test Item Value Reference Range Interpretation Comments Potassium Lvl (test code = Potassium 4.4 3.5-5.1 Lvl) [facility]2018-09-19 09:51:00 Test Item Value Reference Range Interpretation Comments Sodium Lvl (test code = Sodium Lvl) 140 135-145 [facility]2018-09-19 09:51:00 Test Item Value Reference Range Interpretation Comments Chloride Lvl (test code = Chloride Lvl) 111 95-109 [facility]2018-09-19 09:51:00 Test Item Value Reference Range Interpretation Comments Creatinine Lvl (test code = Creatinine 1.89 0.50-1.40 Lvl) [facility]2018-09-19 09:51:00 Test Item Value Reference Range Interpretation Comments Glucose Lvl (test code = Glucose Lvl) 98 70-99 [facility]2018-09-19 09:51:00 Test Item Value Reference Range Interpretation Comments BUN (test code = BUN) 20 7-22 [facility] LancasterYktlnvhRRGOLFHSMC3219-57-42 09:51:00 Test Item Value Reference Range Interpretation Comments MCV (test code = MCV) 92.1 80.0-94.0 [facility] LancasterOsmwceyUBGLETQSKL3752-19-12 09:51:00 Test Item Value Reference Range Interpretation Comments Hct (test code = Hct) 33.5 42.0-54.0 [facility] LancasterUpvhfujUNZJANSVIB4516-69-25 09:51:00 Test Item Value Reference Range Interpretation Comments MCH (test code = MCH) 30.4 pg 27.0-31.0 [facility] LancasterCfztgupXZUQSQWOYH4065-36-35 09:51:00 Test Item Value Reference Range Interpretation Comments MCHC (test code = MCHC) 33.0 32.0-36.0 [facility] LancasterWiqarqeWPWNBFESII3709-23-57 09:51:00 Test Item Value Reference Range Interpretation Comments Hgb (test code = Hgb) 11.1 14.0-18.0 [facility] LancasterRqyfkshMIUYKBKAUU2227-23-83 09:51:00 Test Item Value Reference Range Interpretation Comments MPV (test code = MPV) 8.0 7.4-10.4 [facility] LancasterLwegwytPTLILFSUMM3874-37-89 09:51:00 Test Item Value Reference Range Interpretation Comments Platelet (test code = Platelet) 165 133-450 [facility] LancasterVvxpnvrSXDOOSFDNJ2129-08-94 09:51:00 Test Item Value Reference Range Interpretation Comments RDW (test code = RDW) 15.0 11.5-14.5 [facility] LancasterPunjlrnKOBPJOISHF4369-40-21 09:51:00 Test Item Value Reference Range Interpretation Comments WBC (test code = WBC) 11.1 3.7-10.4 [facility] LancasterCqoklxlCOQWYURVDP3791-97-91 09:51:00 Test Item Value Reference Range Interpretation Comments RBC (test code = RBC) 3.64 4.70-6.10 [facility]2018-09-19 09:51:00 Test Item Value Reference Range Interpretation Comments Magnesium Lvl (test code = Magnesium 1.8 1.8-2.4 Lvl) [facility]2018-09-19 09:51:00 Test Item Value Reference Range Interpretation Comments eGFR (test code = eGFR) 40 [facility]2018-09-19 09:51:00 Test Item Value Reference Range Interpretation Comments Globulin (test code = Globulin) 3.4 2.7-4.2 [facility]2018-09-19 09:51:00 Test Item Value Reference Range Interpretation Comments A/G Ratio (test code = A/G Ratio) 1.0 1 0.7-1.6 [facility]2018-09-19 09:51:00 Test Item Value Reference Range Interpretation Comments AGAP (test code = AGAP) 13.4 10.0-20.0 [facility]2018-09-19 09:51:00 Test Item Value Reference Range Interpretation Comments B/C Ratio (test code = B/C Ratio) 11 1 6-25 [facility]2018-09-19 09:51:00 Test Item Value Reference Range Interpretation Comments Alk Phos (test code = Alk Phos) 102 39-136 [facility]2018-09-19 09:51:00 Test Item Value Reference Range Interpretation Comments Bili Total (test code = Bili Total) 0.2 0.2-1.3 [facility]2018-09-19 09:51:00 Test Item Value Reference Range Interpretation Comments AST (test code = AST) 33 See_Comment [Auto mated message] The system which ge nerated this result transmit maame reference range : <=37. The reference range was not used to interpr et this result as aaliyah l/abnormal. [facility]2018-09-19 09:51:00 Test Item Value Reference Range Interpretation Comments ALT (test code = ALT) 34 See_Comment [Auto mated message] The system which ge nerated this result transmit maame reference range : <=65. The reference range was not used to interpr et this result as aaliyah l/abnormal. [facility]2018-09-19 09:51:00 Test Item Value Reference Range Interpretation Comments Albumin Lvl (test code = Albumin Lvl) 3.5 3.5-5.0 [facility]2018-09-19 09:51:00 Test Item Value Reference Range Interpretation Comments CO2 (test code = CO2) 20 24-32 [facility]2018-09-19 09:51:00 Test Item Value Reference Range Interpretation Comments Calcium Lvl (test code = Calcium Lvl) 8.2 8.5-10.5 [facility]2018-09-19 09:51:00 Test Item Value Reference Range Interpretation Comments Total Protein (test code = Total 6.9 6.4-8.4 Protein) [facility]2018-09-19 09:51:00 Test Item Value Reference Range Interpretation Comments Potassium Lvl (test code = Potassium 4.4 3.5-5.1 Lvl) [facility]2018-09-19 09:51:00 Test Item Value Reference Range Interpretation Comments Sodium Lvl (test code = Sodium Lvl) 140 135-145 [facility]2018-09-19 09:51:00 Test Item Value Reference Range Interpretation Comments Chloride Lvl (test code = Chloride Lvl) 111 95-109 [facility]2018-09-19 09:51:00 Test Item Value Reference Range Interpretation Comments Creatinine Lvl (test code = Creatinine 1.89 0.50-1.40 Lvl) [facility]2018-09-19 09:51:00 Test Item Value Reference Range Interpretation Comments Glucose Lvl (test code = Glucose Lvl) 98 70-99 [facility]2018-09-19 09:51:00 Test Item Value Reference Range Interpretation Comments BUN (test code = BUN) 20 7-22 [facility] LancasterLdokrcjBVOCDZFQQQ4304-92-66 09:51:00 Test Item Value Reference Range Interpretation Comments MCV (test code = MCV) 92.1 80.0-94.0 [facility] LancasterPdrzwijBHYMZRAEKP0578-68-23 09:51:00 Test Item Value Reference Range Interpretation Comments Hct (test code = Hct) 33.5 42.0-54.0 [facility] LancasterThfcoroKIMJVQNCPR2091-71-13 09:51:00 Test Item Value Reference Range Interpretation Comments MCH (test code = MCH) 30.4 pg 27.0-31.0 [facility] LancasterYyudqfyDOMTCZWMOP5554-91-35 09:51:00 Test Item Value Reference Range Interpretation Comments MCHC (test code = MCHC) 33.0 32.0-36.0 [facility] LancasterBejnkpmRJZEKCFNNG0303-02-71 09:51:00 Test Item Value Reference Range Interpretation Comments Hgb (test code = Hgb) 11.1 14.0-18.0 [facility] LancasterQbzbgpsPSKREWQKSI1474-81-98 09:51:00 Test Item Value Reference Range Interpretation Comments MPV (test code = MPV) 8.0 7.4-10.4 [facility] LancasterKywfashIXPUBFPKAL3090-21-12 09:51:00 Test Item Value Reference Range Interpretation Comments Platelet (test code = Platelet) 165 133-450 [facility] LancasterWalswfaZHFBNZRGWM0475-48-13 09:51:00 Test Item Value Reference Range Interpretation Comments RDW (test code = RDW) 15.0 11.5-14.5 [facility] LancasterDpmaxnkVJLEMCYADW5666-47-64 09:51:00 Test Item Value Reference Range Interpretation Comments WBC (test code = WBC) 11.1 3.7-10.4 [facility]EV[facility]ABKQD8513[facility]35-88 09:51:00 Test Item Value Reference Range Interpretation Comments RBC (test code = RBC) 3.64 4.70-6.10 [facility]2018-09-18 09:05:00 Test Item Value Reference Range Interpretation Comments Phosphorus (test code = Phosphorus) 3.9 2.5-4.5 [facility]2018-09-18 09:05:00 Test Item Value Reference Range Interpretation Comments eGFR (test code = eGFR) 40 [facility]2018-09-18 09:05:00 Test Item Value Reference Range Interpretation Comments Bili Total (test code = Bili Total) 0.2 0.2-1.3 [facility]2018-09-18 09:05:00 Test Item Value Reference Range Interpretation Comments Alk Phos (test code = Alk Phos) 98 39-136 [facility]2018-09-18 09:05:00 Test Item Value Reference Range Interpretation Comments Sodium Lvl (test code = Sodium Lvl) 144 135-145 [facility]2018-09-18 09:05:00 Test Item Value Reference Range Interpretation Comments Chloride Lvl (test code = Chloride Lvl) 115 95-109 [facility]2018-09-18 09:05:00 Test Item Value Reference Range Interpretation Comments Potassium Lvl (test code = Potassium 4.2 3.5-5.1 Lvl) [facility]2018-09-18 09:05:00 Test Item Value Reference Range Interpretation Comments Creatinine Lvl (test code = Creatinine 1.92 0.50-1.40 Lvl) [facility]2018-09-18 09:05:00 Test Item Value Reference Range Interpretation Comments CO2 (test code = CO2) 23 24-32 [facility]2018-09-18 09:05:00 Test Item Value Reference Range Interpretation Comments Albumin Lvl (test code = Albumin Lvl) 3.3 3.5-5.0 [facility]2018-09-18 09:05:00 Test Item Value Reference Range Interpretation Comments Total Protein (test code = Total 6.4 6.4-8.4 Protein) [facility]2018-09-18 09:05:00 Test Item Value Reference Range Interpretation Comments Calcium Lvl (test code = Calcium Lvl) 8.1 8.5-10.5 [facility]2018-09-18 09:05:00 Test Item Value Reference Range Interpretation Comments ALT (test code = ALT) 17 See_Comment [Auto mated message] The system which ge nerated this result transmit maame reference range : <=65. The reference range was not used to interpr et this result as aaliyah l/abnormal. [facility]2018-09-18 09:05:00 Test Item Value Reference Range Interpretation Comments AST (test code = AST) 19 See_Comment [Auto mated message] The system which ge nerated this result transmit maame reference range : <=37. The reference range was not used to interpr et this result as aaliyah l/abnormal. [place] 175328-09-18 09:05:00 Test Item Value Reference Range Interpretation Comments BUN (test code = BUN) 25 7-22 [facility]2018-09-18 09:05:00 Test Item Value Reference Range Interpretation Comments Glucose Lvl (test code = Glucose Lvl) 73 70-99 [facility]2018-09-18 09:05:00 Test Item Value Reference Range Interpretation Comments A/G Ratio (test code = A/G Ratio) 1.1 1 0.7-1.6 [facility]2018-09-18 09:05:00 Test Item Value Reference Range Interpretation Comments B/C Ratio (test code = B/C Ratio) 13 1 6-25 [facility]2018-09-18 09:05:00 Test Item Value Reference Range Interpretation Comments AGAP (test code = AGAP) 10.2 10.0-20.0 [facility]2018-09-18 09:05:00 Test Item Value Reference Range Interpretation Comments Globulin (test code = Globulin) 3.1 2.7-4.2 [place] 175328-09-18 09:05:00 Test Item Value Reference Range Interpretation Comments Magnesium Lvl (test code = Magnesium 1.8 1.8-2.4 Lvl) [facility] LancasterMfzxckjVIKOFPHJDO5693-11-97 09:05:00 Test Item Value Reference Range Interpretation Comments Hct (test code = Hct) 31.8 42.0-54.0 [facility] LancasterJbwmnhuVJYGQYMDUD5009-54-91 09:05:00 Test Item Value Reference Range Interpretation Comments MCV (test code = MCV) 90.5 80.0-94.0 [facility] LancasterEubekjfXIDXEBXMTS3561-39-56 09:05:00 Test Item Value Reference Range Interpretation Comments WBC (test code = WBC) 7.8 3.7-10.4 [facility] LancasterDhoowmwJOBVXOHQKT5046-99-87 09:05:00 Test Item Value Reference Range Interpretation Comments RBC (test code = RBC) 3.51 4.70-6.10 [facility] LancasterUjmeuueYMRFLZUITS7593-73-85 09:05:00 Test Item Value Reference Range Interpretation Comments Hgb (test code = Hgb) 10.9 14.0-18.0 [facility] LancasterKixybkaFEUWFWRUVQ6205-23-71 09:05:00 Test Item Value Reference Range Interpretation Comments MCH (test code = MCH) 30.9 pg 27.0-31.0 [facility] LancasterAwbogocYUPSXCZTDD1911-77-14 09:05:00 Test Item Value Reference Range Interpretation Comments MCHC (test code = MCHC) 34.2 32.0-36.0 [facility] LancasterWhquhgeVGYKWEFABS8041-27-49 09:05:00 Test Item Value Reference Range Interpretation Comments MPV (test code = MPV) 7.7 7.4-10.4 [facility] LancasterFbcgbmhBITXXNJSIF0882-72-37 09:05:00 Test Item Value Reference Range Interpretation Comments RDW (test code = RDW) 14.9 11.5-14.5 [facility] LancasterZthghfzYQYGWQNRWM8546-73-54 09:05:00 Test Item Value Reference Range Interpretation Comments Platelet (test code = Platelet) 176 133-450 [facility] LancasterSsstdgkWPJAJYRXBT7943-67-92 09:05:00 Test Item Value Reference Range Interpretation Comments Neutrophils # (test code = Neutrophils 3.7 1.5-8.1 #) [facility] LancasterNostjayNMJVTXGBKW5133-47-16 09:05:00 Test Item Value Reference Range Interpretation Comments Lymphocytes # (test code = Lymphocytes 3.4 1.0-5.5 #) [facility] LancasterPzbhjjhNDZYOYAJCW3002-53-77 09:05:00 Test Item Value Reference Range Interpretation Comments Basophils (test code = 0.2 See_Comment [Aut omated message] The Basophils) system which ge nerated this result tra nsmitted reference range : <=1.0. The reference r ashley was not used to int erpret this result as normal/abnormal . [facility] LancasterDkqqryhVUFGHXIGNC5383-26-40 09:05:00 Test Item Value Reference Range Interpretation Comments Monocytes # (test code 0.5 See_Comment [Aut omated message] The = Monocytes #) system which generated this result tra nsmitted reference range : <=0.8. The reference r ashley was not used to int erpret this result as normal/abnormal . [facility] LancasterKrmozzuHPRKUWMCBO5374-70-38 09:05:00 Test Item Value Reference Range Interpretation Comments Eosinophils # (test code 0.3 See_Comment [A utomated message] The = Eosinophils #) system whic h generated this result tra nsmitted reference range : <=0.5. The reference r ashley was not used to int erpret this result as normal/abnormal . [facility] LancasterOjkdmcmKCVEVGIWPY9567-91-99 09:05:00 Test Item Value Reference Range Interpretation Comments Lymphocytes (test code = Lymphocytes) 43.4 20.0-40.0 [facility] LancasterMxiyxeaRYJTOPVBWJ1575-92-59 09:05:00 Test Item Value Reference Range Interpretation Comments Segs (test code = Segs) 46.7 45.0-75.0 [facility] LancasterKympbxmPHPHQNLCBH4526-32-45 09:05:00 Test Item Value Reference Range Interpretation Comments Monocytes (test code = Monocytes) 6.0 2.0-12.0 [facility] LancasterGribcgsWCKSECRPPZ0424-87-53 09:05:00 Test Item Value Reference Range Interpretation Comments Eosinophils (test code = 3.7 See_Comment [A utomated message] The Eosinophils) system which ge nerated this result tra nsmitted reference range : <=4.0. The reference r ashley was not used to int erpret this result as normal/abnormal . [facility] [id number] 09:05:00 Test Item Value Reference Range Interpretation Comments Phosphorus (test code = Phosphorus) 3.9 2.5-4.5 [facility] [id number] 09:05:00 Test Item Value Reference Range Interpretation Comments eGFR (test code = eGFR) 40 [facility] [id number] 09:05:00 Test Item Value Reference Range Interpretation Comments Bili Total (test code = Bili Total) 0.2 0.2-1.3 [facility]2018-09-18 09:05:00 Test Item Value Reference Range Interpretation Comments Alk Phos (test code = Alk Phos) 98 39-136 [facility]2018-09-18 09:05:00 Test Item Value Reference Range Interpretation Comments Sodium Lvl (test code = Sodium Lvl) 144 135-145 [facility]2018-09-18 09:05:00 Test Item Value Reference Range Interpretation Comments Chloride Lvl (test code = Chloride Lvl) 115 95-109 [facility]2018-09-18 09:05:00 Test Item Value Reference Range Interpretation Comments Potassium Lvl (test code = Potassium 4.2 3.5-5.1 Lvl) [facility]2018-09-18 09:05:00 Test Item Value Reference Range Interpretation Comments Creatinine Lvl (test code = Creatinine 1.92 0.50-1.40 Lvl) [facility]2018-09-18 09:05:00 Test Item Value Reference Range Interpretation Comments CO2 (test code = CO2) 23 24-32 [facility]2018-09-18 09:05:00 Test Item Value Reference Range Interpretation Comments Albumin Lvl (test code = Albumin Lvl) 3.3 3.5-5.0 [facility]2018-09-18 09:05:00 Test Item Value Reference Range Interpretation Comments Total Protein (test code = Total 6.4 6.4-8.4 Protein) [facility]2018-09-18 09:05:00 Test Item Value Reference Range Interpretation Comments Calcium Lvl (test code = Calcium Lvl) 8.1 8.5-10.5 [facility]2018-09-18 09:05:00 Test Item Value Reference Range Interpretation Comments ALT (test code = ALT) 17 See_Comment [Auto mated message] The system which ge nerated this result transmit maame reference range : <=65. The reference range was not used to interpr et this result as aaliyah l/abnormal. [facility]2018-09-18 09:05:00 Test Item Value Reference Range Interpretation Comments AST (test code = AST) 19 See_Comment [Auto mated message] The system which ge nerated this result transmit maame reference range : <=37. The reference range was not used to interpr et this result as aaliyah l/abnormal. [facility]2018-09-18 09:05:00 Test Item Value Reference Range Interpretation Comments BUN (test code = BUN) 25 7-22 [facility]2018-09-18 09:05:00 Test Item Value Reference Range Interpretation Comments Glucose Lvl (test code = Glucose Lvl) 73 70-99 [facility]2018-09-18 09:05:00 Test Item Value Reference Range Interpretation Comments A/G Ratio (test code = A/G Ratio) 1.1 1 0.7-1.6 [facility]2018-09-18 09:05:00 Test Item Value Reference Range Interpretation Comments B/C Ratio (test code = B/C Ratio) 13 1 6-25 [facility]2018-09-18 09:05:00 Test Item Value Reference Range Interpretation Comments AGAP (test code = AGAP) 10.2 10.0-20.0 [facility]2018-09-18 09:05:00 Test Item Value Reference Range Interpretation Comments Globulin (test code = Globulin) 3.1 2.7-4.2 [facility]2018-09-18 09:05:00 Test Item Value Reference Range Interpretation Comments Magnesium Lvl (test code = Magnesium 1.8 1.8-2.4 Lvl) [id number] 09:05:00 Test Item Value Reference Range Interpretation Comments Hct (test code = Hct) 31.8 42.0-54.0 [facility] LancasterHkihlbhLUPJPVXMCG7996-96-89 09:05:00 Test Item Value Reference Range Interpretation Comments MCV (test code = MCV) 90.5 80.0-94.0 [facility] LancasterQokotjzLMJDSVBHLM2030-88-22 09:05:00 Test Item Value Reference Range Interpretation Comments WBC (test code = WBC) 7.8 3.7-10.4 [place] [id number] 09:05:00 Test Item Value Reference Range Interpretation Comments RBC (test code = RBC) 3.51 4.70-6.10 [facility] LancasterUwcbckzIIXVPQCPUH2157-74-02 09:05:00 Test Item Value Reference Range Interpretation Comments Hgb (test code = Hgb) 10.9 14.0-18.0 [facility] LancasterXktkqhvRVFYRBBFPE9317-42-27 09:05:00 Test Item Value Reference Range Interpretation Comments MCH (test code = MCH) 30.9 pg 27.0-31.0 [facility] LancasterThoqopjBJIRDAOISU2309-09-37 09:05:00 Test Item Value Reference Range Interpretation Comments MCHC (test code = MCHC) 34.2 32.0-36.0 [facility] LancasterPzvxlteSDBWRVGFVI5268-50-62 09:05:00 Test Item Value Reference Range Interpretation Comments MPV (test code = MPV) 7.7 7.4-10.4 [facility] LancasterFrvcwtmPXBPCNVFVX8437-04-38 09:05:00 Test Item Value Reference Range Interpretation Comments RDW (test code = RDW) 14.9 11.5-14.5 [facility] LancasterRbzodpsUTDFLYXKLZ5216-41-97 09:05:00 Test Item Value Reference Range Interpretation Comments Platelet (test code = Platelet) 176 133-450 [facility] LancasterMkslbqzUKIRHJKXXM9091-54-07 09:05:00 Test Item Value Reference Range Interpretation Comments Neutrophils # (test code = Neutrophils 3.7 1.5-8.1 #) [facility] LancasterGggayrlENYXWFTWVY1516-62-58 09:05:00 Test Item Value Reference Range Interpretation Comments Lymphocytes # (test code = Lymphocytes 3.4 1.0-5.5 #) [facility] LancasterMmsgdhdOGVUAQCLOM3503-39-26 09:05:00 Test Item Value Reference Range Interpretation Comments Basophils (test code = 0.2 See_Comment [Aut omated message] The Basophils) system which ge nerated this result tra nsmitted reference range : <=1.0. The reference r ashley was not used to int erpret this result as normal/abnormal . [facility] LancasterBevmfxhTTDUIUSOKR2772-60-23 09:05:00 Test Item Value Reference Range Interpretation Comments Monocytes # (test code 0.5 See_Comment [Aut omated message] The = Monocytes #) system which generated this result tra nsmitted reference range : <=0.8. The reference r ashley was not used to int erpret this result as normal/abnormal . [facility] LancasterAfwtufxZWSLWDJSYM1573-29-99 09:05:00 Test Item Value Reference Range Interpretation Comments Eosinophils # (test code 0.3 See_Comment [A utomated message] The = Eosinophils #) system whic h generated this result tra nsmitted reference range : <=0.5. The reference r ashley was not used to int erpret this result as normal/abnormal . [facility] LancasterWqkjxqyEUKTUQUONT2330-68-01 09:05:00 Test Item Value Reference Range Interpretation Comments Lymphocytes (test code = Lymphocytes) 43.4 20.0-40.0 [facility] LancasterQtukqtiTDDKMAIVMU3892-48-77 09:05:00 Test Item Value Reference Range Interpretation Comments Segs (test code = Segs) 46.7 45.0-75.0 [facility] LancasterQkwyctrFYCZLMQUWM0531-60-21 09:05:00 Test Item Value Reference Range Interpretation Comments Monocytes (test code = Monocytes) 6.0 2.0-12.0 [facility] LancasterRvshoomVRKFRMLIBQ9879-45-31 09:05:00 Test Item Value Reference Range Interpretation Comments Eosinophils (test code = 3.7 See_Comment [A utomated message] The Eosinophils) system which ge nerated this result tra nsmitted reference range : <=4.0. The reference r ashley was not used to int erpret this result as normal/abnormal . [facility]2018-09-17 17:39:00 Test Item Value Reference Range Interpretation Comments U Phencyclidine Scr (test Negative code = U Phencyclidine *NA*(11/29/17 12:39 Scr) PM) [facility]2018-09-17 17:39:00 Test Item Value Reference Range Interpretation Comments U Opiate Scr (test Negative *NA*(11/29/17 code = U Opiate Scr) 12:39 [facility]) [facility] [id number]:39:00 Test Item Value Reference Range Interpretation Comments U Benzodiaz Scr (test Negative *NA*(11/29/17 code = U Benzodiaz Scr) 12:39 PM) [facility] [id number] 17:39:00 Test Item Value Reference Range Interpretation Comments U Cocaine Scr (test Negative *NA*(11/29/17 code = U Cocaine Scr) 12:39 PM) [facility]2018-09-17 17:39:00 Test Item Value Reference Range Interpretation Comments U Cannab Scr (test Negative *NA*(11/29/17 code = U Cannab Scr) 12:39 PM) [facility] [id number] 17:39:00 Test Item Value Reference Range Interpretation Comments UDS Note (test code = See Note (11/29/17 12:39 UDS Note) PM) [facility] [id number] 17:39:00 Test Item Value Reference Range Interpretation Comments U Kami Scr (test code Negative *NA*(11/29/17 = U Kami Scr) 12:39 PM) [facility] [id number] 17:39:00 Test Item Value Reference Range Interpretation Comments U Amph Scr (test code Negative *NA*(11/29/17 = U Amph Scr) 12:39 PM) [facility] [id number] 17:39:00 Test Item Value Reference Range Interpretation Comments UA Urobilinogen (test code = UA <=1.0 mg/dL 0.1-1.0 Urobilinogen) [facility] [id number] 17:39:00 Test Item Value Reference Range Interpretation Comments UA Sq Epi (test code = UA Sq Epi) None [facility]en [facility] [id number] 17:39:00 Test Item Value Reference Range Interpretation Comments UA Leuk Est (test Negative (11/29/17 12:39 code = UA Leuk Est) PM) [facility] [id number] 17:39:00 Test Item Value Reference Range Interpretation Comments UA Nitrite (test code Negative (11/29/17 12:39 = UA Nitrite) PM) [facility] [id number] 17:39:00 Test Item Value Reference Range Interpretation Comments UA Blood (test code = Negative (11/29/17 12:39 UA Blood) PM) [facility] [id number] 17:39:00 Test Item Value Reference Range Interpretation Comments UA Bili (test code = Negative *NA*(11/29/17 UA Bili) 12:39 PM) [facility] [id number] 17:39:00 Test Item Value Reference Range Interpretation Comments UA Ketones (test code = UA Negative mg/dL Ketones) [facility] [id number] 17:39:00 Test Item Value Reference Range Interpretation Comments UA Protein (test code = UA Negative mg/dL Protein) [facility] [id number] 17:39:00 Test Item Value Reference Range Interpretation Comments UA Glucose (test code = UA Negative mg/dL Glucose) [facility] [id number] 17:39:00 Test Item Value Reference Range Interpretation Comments UA pH (test code = UA pH) 6.0 1 5.0-8.0 [facility] [id number] 17:39:00 Test Item Value Reference Range Interpretation Comments UA Bacteria (test code = UA Occasional /HPF Bacteria) [facility] [id number] 17:39:00 Test Item Value Reference Range Interpretation Comments UA RBC (test code = 1 See_Comment [Automa maame message] The UA RBC) system which ge nerated this result transmit maame reference range : <=2. The reference range was not used to interpr et this result as aaliyah l/abnormal. [facility] AND [id number] 17:39:00 Test Item Value Reference Range Interpretation Comments UA WBC (test code = no gt See_Comment [Automa maame message] The UA WBC) system which ge nerated this result transmit maame reference range : <=5. The reference range was not used to interpr et this result as aaliyah l/abnormal. [facility] [id number] 17:39:00 Test Item Value Reference Range Interpretation Comments UA Spec Grav (test code = UA Spec 1.002 1 Grav) [facility] AND [id number] 17:39:00 Test Item Value Reference Range Interpretation Comments UA Turbidity (test code = Clear (11/29/17 12:39 UA Turbidity) PM) [facility] AND [id number] 17:39:00 Test Item Value Reference Range Interpretation Comments UA Color (test code = Colorless *NA*(11/29/17 UA Color) 12:39 PM) [facility] [id number] 17:39:00 Test Item Value Reference Range Interpretation Comments U Phencyclidine Scr (test Negative code = U Phencyclidine *NA*(11/29/17 12:39 Scr) PM) [facility] [id number] 17:39:00 Test Item Value Reference Range Interpretation Comments U Opiate Scr (test Negative *NA*(11/29/17 code = U Opiate Scr) 12:39 PM) [facility] [id number] 17:39:00 Test Item Value Reference Range Interpretation Comments U Benzodiaz Scr (test Negative *NA*(11/29/17 code = U Benzodiaz Scr) 12:39 PM) [facility] [id number] 17:39:00 Test Item Value Reference Range Interpretation Comments U Cocaine Scr (test Negative *NA*(11/29/17 code = U Cocaine Scr) 12:39 PM) [facility] [id number] 17:39:00 Test Item Value Reference Range Interpretation Comments U Cannab Scr (test Negative *NA*(11/29/17 code = U Cannab Scr) 12:39 PM) [facility] [id number] 17:39:00 Test Item Value Reference Range Interpretation Comments UDS Note (test code = See Note (11/29/17 12:39 UDS Note) PM) [facility] [id number] 17:39:00 Test Item Value Reference Range Interpretation Comments U Kami Scr (test code Negative *NA*(11/29/17 = U Kami Scr) 12:39 PM) [facility] [id number] 17:39:00 Test Item Value Reference Range Interpretation Comments U Amph Scr (test code Negative *NA*(11/29/17 = U Amph Scr) 12:39 PM) [facility] [id number] 17:39:00 Test Item Value Reference Range Interpretation Comments UA Urobilinogen (test code = UA <=1.0 mg/dL 0.1-1.0 Urobilinogen) [facility] [id number] 17:39:00 Test Item Value Reference Range Interpretation Comments UA Sq Epi (test code = UA Sq Epi) None [facility]en [facility] [id number] 17:39:00 Test Item Value Reference Range Interpretation Comments UA Leuk Est (test Negative (11/29/17 12:39 code = UA Leuk Est) PM) [facility] [id number] 17:39:00 Test Item Value Reference Range Interpretation Comments UA Nitrite (test code Negative (11/29/17 12:39 = UA Nitrite) PM) [facility] [id number] 17:39:00 Test Item Value Reference Range Interpretation Comments UA Blood (test code = Negative (11/29/17 12:39 UA Blood) PM) [facility] AND [id number] 17:39:00 Test Item Value Reference Range Interpretation Comments UA Bili (test code = Negative *NA*(11/29/17 UA Bili) 12:39 PM) [facility] AND [id number] 17:39:00 Test Item Value Reference Range Interpretation Comments UA Ketones (test code = UA Negative mg/dL Ketones) [facility] AND [id number] 17:39:00 Test Item Value Reference Range Interpretation Comments UA Protein (test code = UA Negative mg/dL Protein) [facility] AND [id number] 17:39:00 Test Item Value Reference Range Interpretation Comments UA Glucose (test code = UA Negative mg/dL Glucose) [facility] AND [id number] 17:39:00 Test Item Value Reference Range Interpretation Comments UA pH (test code = UA pH) 6.0 1 5.0-8.0 [facility] AND [id number] 17:39:00 Test Item Value Reference Range Interpretation Comments UA Bacteria (test code = UA Occasional /HPF Bacteria) [facility] AND [id number] 17:39:00 Test Item Value Reference Range Interpretation Comments UA RBC (test code = 1 See_Comment [Automa maame message] The UA RBC) system which ge nerated this result transmit maame reference range : <=2. The reference range was not used to interpr et this result as aaliyah l/abnormal. [facility] AND [id number] 17:39:00 Test Item Value Reference Range Interpretation Comments UA WBC (test code = no gt See_Comment [Automa maame message] The UA WBC) system which ge nerated this result transmit maame reference range : <=5. The reference range was not used to interpr et this result as aaliyah l/abnormal. [facility] AND [id number] 17:39:00 Test Item Value Reference Range Interpretation Comments UA Spec Grav (test code = UA Spec 1.002 1 Grav) [facility] AND [id number] 17:39:00 Test Item Value Reference Range Interpretation Comments UA Turbidity (test code = Clear (11/29/17 12:39 UA Turbidity) PM) [facility] [id number] 17:39:00 Test Item Value Reference Range Interpretation Comments UA Color (test code = Colorless *NA*(11/29/17 UA Color) 12:39 PM) [facility]annCARDIAC [id number] 16:38:00 Test Item Value Reference Range Interpretation Comments Troponin-I (test code no gt See_Comment [Auto mated message] The = Troponin-I) system which g enerated this result transmit maame reference range : <=0.40. The reference r ashley was not used to interpr et this result as aaliyah l/abnormal. [facility] HospitalBirchboxAC [id number] 16:38:00 Test Item Value Reference Range Interpretation Comments Total CK (test code = Total CK) 367 12-191 [facility] [employer] K[employer] [id number] 16:38:00 Test Item Value Reference Range Interpretation Comments B/C Ratio (test code = B/C Ratio) 13 1 6-25 [facility] [employer] [id number] 16:38:00 Test Item Value Reference Range Interpretation Comments Globulin (test code = Globulin) 3.2 2.7-4.2 [facility] [employer] [id number] 16:38:00 Test Item Value Reference Range Interpretation Comments A/G Ratio (test code = A/G Ratio) 1.2 1 0.7-1.6 [facility] [employer] [id number] 16:38:00 Test Item Value Reference Range Interpretation Comments AGAP (test code = AGAP) 11.1 10.0-20.0 [facility] [employer] [id number] 16:38:00 Test Item Value Reference Range Interpretation Comments eGFR (test code = eGFR) 31 [facility] [employer] [id number] 16:38:00 Test Item Value Reference Range Interpretation Comments Total Protein (test code = Total 7.2 6.4-8.4 Protein) [facility] [id number] 16:38:00 Test Item Value Reference Range Interpretation Comments Calcium Lvl (test code = Calcium Lvl) 8.3 8.5-10.5 [facility] GetGoingAtrium [id number] 16:38:00 Test Item Value Reference Range Interpretation Comments Chloride Lvl (test code = Chloride Lvl) 108 95-109 [facility]2018-09-17 16:38:00 Test Item Value Reference Range Interpretation Comments CO2 (test code = CO2) 23 24-32 [place] [id number] 16:38:00 Test Item Value Reference Range Interpretation Comments Creatinine Lvl (test code = Creatinine 2.34 0.50-1.40 Lvl) [facility]2018-09-17 16:38:00 Test Item Value Reference Range Interpretation Comments Sodium Lvl (test code = Sodium Lvl) 138 135-145 [place] [id number] 16:38:00 Test Item Value Reference Range Interpretation Comments BUN (test code = BUN) 31 7-22 [facility]2018-09-17 16:38:00 Test Item Value Reference Range Interpretation Comments AST (test code = AST) 21 See_Comment [Auto mated message] The system which ge nerated this result transmit maame reference range : <=37. The reference range was not used to interpr et this result as aaliyah l/abnormal. [facility]2018-09-17 16:38:00 Test Item Value Reference Range Interpretation Comments Bili Total (test code = Bili Total) 0.3 0.2-1.3 [facility]2018-09-17 16:38:00 Test Item Value Reference Range Interpretation Comments Alk Phos (test code = Alk Phos) 106 39-136 [facility]2018-09-17 16:38:00 Test Item Value Reference Range Interpretation Comments Albumin Lvl (test code = Albumin Lvl) 4.0 3.5-5.0 [facility]2018-09-17 16:38:00 Test Item Value Reference Range Interpretation Comments ALT (test code = ALT) 21 See_Comment [Auto mated message] The system which ge nerated this result transmit maame reference range : <=65. The reference range was not used to interpr et this result as aaliyah l/abnormal. [facility]2018-09-17 16:38:00 Test Item Value Reference Range Interpretation Comments Potassium Lvl (test code = Potassium 4.1 3.5-5.1 Lvl) [facility]2018-09-17 16:38:00 Test Item Value Reference Range Interpretation Comments Glucose Lvl (test code = Glucose Lvl) 89 70-99 [facility] LancasterLpjaxhyAPIPUFHMOL0608-21-17 16:38:00 Test Item Value Reference Range Interpretation Comments MCH (test code = MCH) 30.3 pg 27.0-31.0 [facility] LancasterZyhsawlQAOKQNOQUL6695-83-29 16:38:00 Test Item Value Reference Range Interpretation Comments MCV (test code = MCV) 89.7 80.0-94.0 [facility] LancasterTlzwfsvWRKITNWLFT5239-33-10 16:38:00 Test Item Value Reference Range Interpretation Comments Platelet (test code = Platelet) 181 133-450 [facility] La[id number] 16:38:00 Test Item Value Reference Range Interpretation Comments RDW (test code = RDW) 14.8 11.5-14.5 [facility] LancasterQitzlwuTPPBMFMDRI2783-41-14 16:38:00 Test Item Value Reference Range Interpretation Comments MCHC (test code = MCHC) 33.8 32.0-36.0 [facility] Lanc[id number] 16:38:00 Test Item Value Reference Range Interpretation Comments MPV (test code = MPV) 7.6 7.4-10.4 [facility] LancasterFmllcrgINXLPGXYOL0999-87-17 16:38:00 Test Item Value Reference Range Interpretation Comments WBC (test code = WBC) 10.2 3.7-10.4 [facility] Lanc[id number] 16:38:00 Test Item Value Reference Range Interpretation Comments Hgb (test code = Hgb) 11.4 14.0-18.0 [facility] [id number] 16:38:00 Test Item Value Reference Range Interpretation Comments RBC (test code = RBC) 3.77 4.70-6.10 [facility] La[id number] 16:38:00 Test Item Value Reference Range Interpretation Comments Hct (test code = Hct) 33.8 42.0-54.0 [facility] LancasterXqvwwrkSVIEBAAKXW2355-17-01 16:38:00 Test Item Value Reference Range Interpretation Comments Neutrophils # (test code = Neutrophils 6.1 1.5-8.1 #) [facility] LancasterTvduuxxPQVPFTJTEE8449-85-31 16:38:00 Test Item Value Reference Range Interpretation Comments Eosinophils # (test code 0.3 See_Comment [A utomated message] The = Eosinophils #) system whic h generated this result tra nsmitted reference range : <=0.5. The reference r ashley was not used to int erpret this result as normal/abnormal . [facility] LancasterFcoelgrBEWFAMYWAI1493-48-80 16:38:00 Test Item Value Reference Range Interpretation Comments Monocytes # (test code 0.8 See_Comment [Aut omated message] The = Monocytes #) system which generated this result tra nsmitted reference range : <=0.8. The reference r ashley was not used to int erpret this result as normal/abnormal . [facility] LancasterWvgvtmdSAXVTURDDZ6300-74-16 16:38:00 Test Item Value Reference Range Interpretation Comments Lymphocytes # (test code = Lymphocytes 3.0 1.0-5.5 #) [facility] LancasterRoopyruDZWEMUXRNK0907-47-23 16:38:00 Test Item Value Reference Range Interpretation Comments Monocytes (test code = Monocytes) 8.0 2.0-12.0 [facility] LancasterYyztyzaNLOQRBIEJN1419-24-01 16:38:00 Test Item Value Reference Range Interpretation Comments Basophils (test code = 0.4 See_Comment [Aut omated message] The Basophils) system which ge nerated this result tra nsmitted reference range : <=1.0. The reference r ashley was not used to int erpret this result as normal/abnormal . [facility] LancasterLqpmtmcKNOBQJNUXK3009-56-71 16:38:00 Test Item Value Reference Range Interpretation Comments Eosinophils (test code = 2.5 See_Comment [A utomated message] The Eosinophils) system which ge nerated this result tra nsmitted reference range : <=4.0. The reference r ashley was not used to int erpret this result as normal/abnormal . [facility] LancasterBhbritzRANSBVKIVP7026-84-91 16:38:00 Test Item Value Reference Range Interpretation Comments Segs (test code = Segs) 59.7 45.0-75.0 [facility] LancasterJhvhovaFIBXXZFZDA2487-29-34 16:38:00 Test Item Value Reference Range Interpretation Comments Lymphocytes (test code = Lymphocytes) 29.4 20.0-40.0 [facility]DIASC[facility]PITALHRSRMWP3062-22-58 16:38:00 Test Item Value Reference Range Interpretation Comments Troponin-I (test code no gt See_Comment [Auto mated message] The = Troponin-I) system which g enerated this result transmit maame reference range : <=0.40. The reference r ashley was not used to interpr et this result as aaliyah l/abnormal. [facility] HospitalInteRNA TechnologiesCARDIAC [id number] 16:38:00 Test Item Value Reference Range Interpretation Comments Total CK (test code = Total CK) 367 12-191 [facility] [employer] [id number] 16:38:00 Test Item Value Reference Range Interpretation Comments B/C Ratio (test code = B/C Ratio) 13 1 6-25 [facility] [employer] [id number] 16:38:00 Test Item Value Reference Range Interpretation Comments Globulin (test code = Globulin) 3.2 2.7-4.2 [facility] [employer] [id number] 16:38:00 Test Item Value Reference Range Interpretation Comments A/G Ratio (test code = A/G Ratio) 1.2 1 0.7-1.6 [facility] [employer] [id number] 16:38:00 Test Item Value Reference Range Interpretation Comments AGAP (test code = AGAP) 11.1 10.0-20.0 [facility] [employer] [id number] 16:38:00 Test Item Value Reference Range Interpretation Comments eGFR (test code = eGFR) 31 [facility] [employer] [id number] 16:38:00 Test Item Value Reference Range Interpretation Comments Total Protein (test code = Total 7.2 6.4-8.4 Protein) [facility] [employer] [id number] 16:38:00 Test Item Value Reference Range Interpretation Comments Calcium Lvl (test code = Calcium Lvl) 8.3 8.5-10.5 [facility] [employer] [id number] 16:38:00 Test Item Value Reference Range Interpretation Comments Chloride Lvl (test code = Chloride Lvl) 108 95-109 [facility] [employer] [id number] 16:38:00 Test Item Value Reference Range Interpretation Comments CO2 (test code = CO2) 23 24-32 [facility] [employer] [id number] 16:38:00 Test Item Value Reference Range Interpretation Comments Creatinine Lvl (test code = Creatinine 2.34 0.50-1.40 Lvl) [facility]2018-09-17 16:38:00 Test Item Value Reference Range Interpretation Comments Sodium Lvl (test code = Sodium Lvl) 138 135-145 [facility]2018-09-17 16:38:00 Test Item Value Reference Range Interpretation Comments BUN (test code = BUN) 31 7-22 [facility]2018-09-17 16:38:00 Test Item Value Reference Range Interpretation Comments AST (test code = AST) 21 See_Comment [Auto mated message] The system which ge nerated this result transmit maame reference range : <=37. The reference range was not used to interpr et this result as aaliyah l/abnormal. [place] [id number] 16:38:00 Test Item Value Reference Range Interpretation Comments Bili Total (test code = Bili Total) 0.3 0.2-1.3 [facility]2018-09-17 16:38:00 Test Item Value Reference Range Interpretation Comments Alk Phos (test code = Alk Phos) 106 39-136 [facility]2018-09-17 16:38:00 Test Item Value Reference Range Interpretation Comments Albumin Lvl (test code = Albumin Lvl) 4.0 3.5-5.0 [facility]2018-09-17 16:38:00 Test Item Value Reference Range Interpretation Comments ALT (test code = ALT) 21 See_Comment [Auto mated message] The system which ge nerated this result transmit maame reference range : <=65. The reference range was not used to interpr et this result as aaliayh l/abnormal. [facility]2018-09-17 16:38:00 Test Item Value Reference Range Interpretation Comments Potassium Lvl (test code = Potassium 4.1 3.5-5.1 Lvl) [facility]2018-09-17 16:38:00 Test Item Value Reference Range Interpretation Comments Glucose Lvl (test code = Glucose Lvl) 89 70-99 [facility] LancasterHscbgwsBUYQOUQFMB9647-11-74 16:38:00 Test Item Value Reference Range Interpretation Comments MCH (test code = MCH) 30.3 pg 27.0-31.0 [facility] LancasterNghzdobWCWOVJPKHK5504-65-58 16:38:00 Test Item Value Reference Range Interpretation Comments MCV (test code = MCV) 89.7 80.0-94.0 [facility] LancasterMkynpbiMEULJLHABT5086-49-96 16:38:00 Test Item Value Reference Range Interpretation Comments Platelet (test code = Platelet) 181 133-450 [facility] LancasterRkzglqjGLSSSYTIPT5830-08-47 16:38:00 Test Item Value Reference Range Interpretation Comments RDW (test code = RDW) 14.8 11.5-14.5 [facility] LancasterMvbxpjpUFNPGRCGUD1210-04-34 16:38:00 Test Item Value Reference Range Interpretation Comments MCHC (test code = MCHC) 33.8 32.0-36.0 [facility] LancasterKitlrdvQBTXCFKVBP7264-14-98 16:38:00 Test Item Value Reference Range Interpretation Comments MPV (test code = MPV) 7.6 7.4-10.4 [facility] LancasterLyvpdsjSMBPEHZTUK5143-69-18 16:38:00 Test Item Value Reference Range Interpretation Comments WBC (test code = WBC) 10.2 3.7-10.4 [facility] LancasterJxvwvmdHOMEMSBRQS8393-13-12 16:38:00 Test Item Value Reference Range Interpretation Comments Hgb (test code = Hgb) 11.4 14.0-18.0 [facility] LancasterKtphhuqVLKYYWWNBB5379-46-56 16:38:00 Test Item Value Reference Range Interpretation Comments RBC (test code = RBC) 3.77 4.70-6.10 [facility] LancasterKfjmhcsSQYCCAGZOY2949-44-33 16:38:00 Test Item Value Reference Range Interpretation Comments Hct (test code = Hct) 33.8 42.0-54.0 [facility] LancasterNzshfwnDKYCZIYQSF8305-27-36 16:38:00 Test Item Value Reference Range Interpretation Comments Neutrophils # (test code = Neutrophils 6.1 1.5-8.1 #) [facility] LancasterJtjrjxsAZAJETFRIT0309-28-08 16:38:00 Test Item Value Reference Range Interpretation Comments Eosinophils # (test code 0.3 See_Comment [A utomated message] The = Eosinophils #) system whic h generated this result tra nsmitted reference range : <=0.5. The reference r ashley was not used to int erpret this result as normal/abnormal . [facility] LancasterXafugpePXDXEQYKHR2977-97-93 16:38:00 Test Item Value Reference Range Interpretation Comments Monocytes # (test code 0.8 See_Comment [Aut omated message] The = Monocytes #) system which generated this result tra nsmitted reference range : <=0.8. The reference r ashley was not used to int erpret this result as normal/abnormal . [facility] LancasterNrdrvqoRWMWXCFSUG9287-20-48 16:38:00 Test Item Value Reference Range Interpretation Comments Lymphocytes # (test code = Lymphocytes 3.0 1.0-5.5 #) [facility] LancasterKcujuxfHCRIAUQXJW2501-92-08 16:38:00 Test Item Value Reference Range Interpretation Comments Monocytes (test code = Monocytes) 8.0 2.0-12.0 [facility] LancasterSgjuasgXTNMHXBZFV5231-61-66 16:38:00 Test Item Value Reference Range Interpretation Comments Basophils (test code = 0.4 See_Comment [Aut omated message] The Basophils) system which ge nerated this result tra nsmitted reference range : <=1.0. The reference r ashley was not used to int erpret this result as normal/abnormal . [facility] LancasterLmtqjcpCTDQTLSSNL1266-21-11 16:38:00 Test Item Value Reference Range Interpretation Comments Eosinophils (test code = 2.5 See_Comment [A utomated message] The Eosinophils) system which ge nerated this result tra nsmitted reference range : <=4.0. The reference r ashley was not used to int erpret this result as normal/abnormal . [facility] LancasterOwdqkjkBJHPEVHPNG4141-61-09 16:38:00 Test Item Value Reference Range Interpretation Comments Segs (test code = Segs) 59.7 45.0-75.0 [facility] LancasterIgidlatWOEGPVVURV6791-13-86 16:38:00 Test Item Value Reference Range Interpretation Comments Lymphocytes (test code = Lymphocytes) 29.4 20.0-40.0 [facility]2018-09-17 16:07:00 Test Item Value Reference Range Interpretation Comments Lipase Lvl (test code = Lipase Lvl) 300 73-393 [facility]2018-09-17 16:07:00 Test Item Value Reference Range Interpretation Comments Lipase Lvl (test code = Lipase Lvl) 300 73-393 [facility]2018-09-16 23:58:00 Test Item Value Reference Range Interpretation Comments Calcium Lvl (test code = Calcium Lvl) 7.7 8.5-10.5 [facility]2018-09-16 23:58:00 Test Item Value Reference Range Interpretation Comments Potassium Lvl (test code = Potassium 4.4 3.5-5.1 Lvl) [facility]2018-09-16 23:58:00 Test Item Value Reference Range Interpretation Comments CO2 (test code = CO2) 23 24-32 [facility]2018-09-16 23:58:00 Test Item Value Reference Range Interpretation Comments AGAP (test code = AGAP) 11.4 10.0-20.0 [facility]2018-09-16 23:58:00 Test Item Value Reference Range Interpretation Comments Chloride Lvl (test code = Chloride Lvl) 113 95-109 [facility]2018-09-16 23:58:00 Test Item Value Reference Range Interpretation Comments Sodium Lvl (test code = Sodium Lvl) 143 135-145 [facility]2018-09-16 23:58:00 Test Item Value Reference Range Interpretation Comments Glucose Lvl (test code = Glucose Lvl) 111 70-99 [facility]2018-09-16 23:58:00 Test Item Value Reference Range Interpretation Comments BUN (test code = BUN) 32 7-22 [facility]2018-09-16 23:58:00 Test Item Value Reference Range Interpretation Comments Creatinine Lvl (test code = Creatinine 2.36 0.50-1.40 Lvl) [facility]2018-09-16 23:58:00 Test Item Value Reference Range Interpretation Comments eGFR (test code = eGFR) 31 [facility]2018-09-16 23:58:00 Test Item Value Reference Range Interpretation Comments Calcium Lvl (test code = Calcium Lvl) 7.7 8.5-10.5 [facility]2018-09-16 23:58:00 Test Item Value Reference Range Interpretation Comments Potassium Lvl (test code = Potassium 4.4 3.5-5.1 Lvl) [facility]2018-09-16 23:58:00 Test Item Value Reference Range Interpretation Comments CO2 (test code = CO2) 23 24-32 [facility]2018-09-16 23:58:00 Test Item Value Reference Range Interpretation Comments AGAP (test code = AGAP) 11.4 10.0-20.0 [facility]2018-09-16 23:58:00 Test Item Value Reference Range Interpretation Comments Chloride Lvl (test code = Chloride Lvl) 113 95-109 [facility]2018-09-16 23:58:00 Test Item Value Reference Range Interpretation Comments Sodium Lvl (test code = Sodium Lvl) 143 135-145 [facility]2018-09-16 23:58:00 Test Item Value Reference Range Interpretation Comments Glucose Lvl (test code = Glucose Lvl) 111 70-99 [facility]2018-09-16 23:58:00 Test Item Value Reference Range Interpretation Comments BUN (test code = BUN) 32 7-22 [facility]2018-09-16 23:58:00 Test Item Value Reference Range Interpretation Comments Creatinine Lvl (test code = Creatinine 2.36 0.50-1.40 Lvl) [facility]2018-09-16 23:58:00 Test Item Value Reference Range Interpretation Comments eGFR (test code = eGFR) 31 [facility]2018-09-16 09:28:00 Test Item Value Reference Range Interpretation Comments Phosphorus (test code = Phosphorus) 4.1 2.5-4.5 [facility]2018-09-16 09:28:00 Test Item Value Reference Range Interpretation Comments Magnesium Lvl (test code = Magnesium 1.9 1.8-2.4 Lvl) [facility]2018-09-16 09:28:00 Test Item Value Reference Range Interpretation Comments eGFR (test code = eGFR) 37 [facility]2018-09-16 09:28:00 Test Item Value Reference Range Interpretation Comments Glucose Lvl (test code = Glucose Lvl) 136 70-99 [facility]2018-09-16 09:28:00 Test Item Value Reference Range Interpretation Comments Alk Phos (test code = Alk Phos) 110 39-136 [facility]2018-09-16 09:28:00 Test Item Value Reference Range Interpretation Comments Bili Total (test code = Bili Total) 0.2 0.2-1.3 [facility]2018-09-16 09:28:00 Test Item Value Reference Range Interpretation Comments AST (test code = AST) 17 See_Comment [Auto mated message] The system which ge nerated this result transmit maame reference range : <=37. The reference range was not used to interpr et this result as aaliyah l/abnormal. [facility]2018-09-16 09:28:00 Test Item Value Reference Range Interpretation Comments Albumin Lvl (test code = Albumin Lvl) 3.6 3.5-5.0 [facility]2018-09-16 09:28:00 Test Item Value Reference Range Interpretation Comments ALT (test code = ALT) 18 See_Comment [Auto mated message] The system which ge nerated this result transmit maame reference range : <=65. The reference range was not used to interpr et this result as aaliyah l/abnormal. [facility]2018-09-16 09:28:00 Test Item Value Reference Range Interpretation Comments Total Protein (test code = Total 6.7 6.4-8.4 Protein) [facility]2018-09-16 09:28:00 Test Item Value Reference Range Interpretation Comments CO2 (test code = CO2) 19 24-32 [place] 175328-09-16 09:28:00 Test Item Value Reference Range Interpretation Comments Calcium Lvl (test code = Calcium Lvl) 8.2 8.5-10.5 [facility]2018-09-16 09:28:00 Test Item Value Reference Range Interpretation Comments Chloride Lvl (test code = Chloride Lvl) 114 95-109 [facility]2018-09-16 09:28:00 Test Item Value Reference Range Interpretation Comments Potassium Lvl (test code = Potassium 5.2 3.5-5.1 Lvl) [facility]2018-09-16 09:28:00 Test Item Value Reference Range Interpretation Comments Sodium Lvl (test code = Sodium Lvl) 141 135-145 [facility]2018-09-16 09:28:00 Test Item Value Reference Range Interpretation Comments BUN (test code = BUN) 35 7-22 [facility]2018-09-16 09:28:00 Test Item Value Reference Range Interpretation Comments Creatinine Lvl (test code = Creatinine 2.03 0.50-1.40 Lvl) [facility]2018-09-16 09:28:00 Test Item Value Reference Range Interpretation Comments AGAP (test code = AGAP) 13.2 10.0-20.0 [facility]2018-09-16 09:28:00 Test Item Value Reference Range Interpretation Comments A/G Ratio (test code = A/G Ratio) 1.2 1 0.7-1.6 [facility]2018-09-16 09:28:00 Test Item Value Reference Range Interpretation Comments Globulin (test code = Globulin) 3.1 2.7-4.2 [facility]2018-09-16 09:28:00 Test Item Value Reference Range Interpretation Comments B/C Ratio (test code = B/C Ratio) 17 1 6-25 [facility] LancasterXhrbnarKPUPHDAOBK1902-65-21 09:28:00 Test Item Value Reference Range Interpretation Comments Monocytes # (test code 0.3 See_Comment [Aut omated message] The = Monocytes #) system which generated this result tra nsmitted reference range : <=0.8. The reference r ashley was not used to int erpret this result as normal/abnormal . [facility] LancasterXsftpykNYUVCTKOJS9561-44-61 09:28:00 Test Item Value Reference Range Interpretation Comments Lymphocytes # (test code = Lymphocytes 1.3 1.0-5.5 #) [facility] LancasterUdgxxkrAQPDJSZTJE3662-29-87 09:28:00 Test Item Value Reference Range Interpretation Comments Segs (test code = Segs) 80.6 45.0-75.0 [place] 847898-09-16 09:28:00 Test Item Value Reference Range Interpretation Comments Neutrophils # (test code = Neutrophils 6.8 1.5-8.1 #) [facility] LancasterLgapzljUJGRTSKJQW4813-54-83 09:28:00 Test Item Value Reference Range Interpretation Comments Lymphocytes (test code = Lymphocytes) 15.4 20.0-40.0 [place] [address]-09-16 09:28:00 Test Item Value Reference Range Interpretation Comments Monocytes (test code = Monocytes) 3.7 2.0-12.0 [place] [address]-09-16 09:28:00 Test Item Value Reference Range Interpretation Comments Eosinophils (test code = 0.1 See_Comment [A utomated message] The Eosinophils) system which ge nerated this result tra nsmitted reference range : <=4.0. The reference r ashley was not used to int erpret this result as normal/abnormal . [facility] LancasterOhtinuiBILIDUEMZC1072-71-87 09:28:00 Test Item Value Reference Range Interpretation Comments Basophils (test code = 0.2 See_Comment [Aut omated message] The Basophils) system which ge nerated this result tra nsmitted reference range : <=1.0. The reference r ashley was not used to int erpret this result as normal/abnormal . [facility] LancasterDpqwrmyAWWYJFYBME8762-19-41 09:28:00 Test Item Value Reference Range Interpretation Comments Hct (test code = Hct) 34.7 42.0-54.0 [facility] LancasterEblzncmUDKSAPXPNB3311-17-25 09:28:00 Test Item Value Reference Range Interpretation Comments MCHC (test code = MCHC) 33.4 32.0-36.0 [facility] LancasterTtjdxmgBLUXRQORFT4250-66-47 09:28:00 Test Item Value Reference Range Interpretation Comments RBC (test code = RBC) 3.83 4.70-6.10 [facility] LancasterHgzweeyLUFUBOUWXZ8141-70-00 09:28:00 Test Item Value Reference Range Interpretation Comments Hgb (test code = Hgb) 11.6 14.0-18.0 [facility] LancasterKelujrwVVXACCNZZR0693-25-86 09:28:00 Test Item Value Reference Range Interpretation Comments Platelet (test code = Platelet) 171 133-450 [facility] LancasterFhnzgyxVSJHDZOZVB1949-33-37 09:28:00 Test Item Value Reference Range Interpretation Comments MPV (test code = MPV) 7.8 7.4-10.4 [facility] LancasterRtthnihWUTWHWMIZY6496-61-81 09:28:00 Test Item Value Reference Range Interpretation Comments RDW (test code = RDW) 14.8 11.5-14.5 [facility] LancasterTjsfkzsNXLIKQHBBD3724-93-20 09:28:00 Test Item Value Reference Range Interpretation Comments MCV (test code = MCV) 90.7 80.0-94.0 [facility] LancasterFtfsqjhXSIGLPQQDP3394-57-67 09:28:00 Test Item Value Reference Range Interpretation Comments MCH (test code = MCH) 30.3 pg 27.0-31.0 [facility] LancasterMmpknfdWCMMEENRJK7004-40-69 09:28:00 Test Item Value Reference Range Interpretation Comments WBC (test code = WBC) 8.4 3.7-10.4 [facility]2018-09-16 09:28:00 Test Item Value Reference Range Interpretation Comments Phosphorus (test code = Phosphorus) 4.1 2.5-4.5 [facility]2018-09-16 09:28:00 Test Item Value Reference Range Interpretation Comments Magnesium Lvl (test code = Magnesium 1.9 1.8-2.4 Lvl) [place] 175328-09-16 09:28:00 Test Item Value Reference Range Interpretation Comments eGFR (test code = eGFR) 37 [facility]2018-09-16 09:28:00 Test Item Value Reference Range Interpretation Comments Glucose Lvl (test code = Glucose Lvl) 136 70-99 [facility]2018-09-16 09:28:00 Test Item Value Reference Range Interpretation Comments Alk Phos (test code = Alk Phos) 110 39-136 [facility]2018-09-16 09:28:00 Test Item Value Reference Range Interpretation Comments Bili Total (test code = Bili Total) 0.2 0.2-1.3 [place] 175328-09-16 09:28:00 Test Item Value Reference Range Interpretation Comments AST (test code = AST) 17 See_Comment [Auto mated message] The system which ge nerated this result transmit maame reference range : <=37. The reference range was not used to interpr et this result as aaliyah l/abnormal. [facility]2018-09-16 09:28:00 Test Item Value Reference Range Interpretation Comments Albumin Lvl (test code = Albumin Lvl) 3.6 3.5-5.0 [facility]2018-09-16 09:28:00 Test Item Value Reference Range Interpretation Comments ALT (test code = ALT) 18 See_Comment [Auto mated message] The system which ge nerated this result transmit maame reference range : <=65. The reference range was not used to interpr et this result as aaliyah l/abnormal. [place] 175328-09-16 09:28:00 Test Item Value Reference Range Interpretation Comments Total Protein (test code = Total 6.7 6.4-8.4 Protein) [facility]2018-09-16 09:28:00 Test Item Value Reference Range Interpretation Comments CO2 (test code = CO2) 19 24-32 [place] [address]-09-16 09:28:00 Test Item Value Reference Range Interpretation Comments Calcium Lvl (test code = Calcium Lvl) 8.2 8.5-10.5 [facility]2018-09-16 09:28:00 Test Item Value Reference Range Interpretation Comments Chloride Lvl (test code = Chloride Lvl) 114 95-109 [facility]2018-09-16 09:28:00 Test Item Value Reference Range Interpretation Comments Potassium Lvl (test code = Potassium 5.2 3.5-5.1 Lvl) [facility]2018-09-16 09:28:00 Test Item Value Reference Range Interpretation Comments Sodium Lvl (test code = Sodium Lvl) 141 135-145 [facility]2018-09-16 09:28:00 Test Item Value Reference Range Interpretation Comments BUN (test code = BUN) 35 7-22 [facility]2018-09-16 09:28:00 Test Item Value Reference Range Interpretation Comments Creatinine Lvl (test code = Creatinine 2.03 0.50-1.40 Lvl) [facility]2018-09-16 09:28:00 Test Item Value Reference Range Interpretation Comments AGAP (test code = AGAP) 13.2 10.0-20.0 [facility]2018-09-16 09:28:00 Test Item Value Reference Range Interpretation Comments A/G Ratio (test code = A/G Ratio) 1.2 1 0.7-1.6 [place] 175328-09-16 09:28:00 Test Item Value Reference Range Interpretation Comments Globulin (test code = Globulin) 3.1 2.7-4.2 [facility]2018-09-16 09:28:00 Test Item Value Reference Range Interpretation Comments B/C Ratio (test code = B/C Ratio) 17 1 6-25 [facility] LancasterSpkirigEVIEWVAUGQ2207-78-10 09:28:00 Test Item Value Reference Range Interpretation Comments Monocytes # (test code 0.3 See_Comment [Aut omated message] The = Monocytes #) system which generated this result tra nsmitted reference range : <=0.8. The reference r ashley was not used to int erpret this result as normal/abnormal . [facility] LancasterVujdffxZWGMCBEFBR4205-15-65 09:28:00 Test Item Value Reference Range Interpretation Comments Lymphocytes # (test code = Lymphocytes 1.3 1.0-5.5 #) [facility] LancasterVhhtzybUCZFNRCCLD5231-35-93 09:28:00 Test Item Value Reference Range Interpretation Comments Segs (test code = Segs) 80.6 45.0-75.0 [facility] LancasterQouudgdHEAXMDUXUL6462-10-87 09:28:00 Test Item Value Reference Range Interpretation Comments Neutrophils # (test code = Neutrophils 6.8 1.5-8.1 #) [facility] LancasterKmxwudmQVAMPSAXTB1477-41-40 09:28:00 Test Item Value Reference Range Interpretation Comments Lymphocytes (test code = Lymphocytes) 15.4 20.0-40.0 [facility] LancasterFyqccreODXUIFFONQ5518-85-61 09:28:00 Test Item Value Reference Range Interpretation Comments Monocytes (test code = Monocytes) 3.7 2.0-12.0 [facility] LancasterGbxxylrHSMOWSQYOW4594-51-44 09:28:00 Test Item Value Reference Range Interpretation Comments Eosinophils (test code = 0.1 See_Comment [A utomated message] The Eosinophils) system which ge nerated this result tra nsmitted reference range : <=4.0. The reference r ashley was not used to int erpret this result as normal/abnormal . [facility]QzaiqshBNZUTXCOCM6513-51-82 09:28:00 Test Item Value Reference Range Interpretation Comments Basophils (test code = 0.2 See_Comment [Aut omated message] The Basophils) system which ge nerated this result tra nsmitted reference range : <=1.0. The reference r ashley was not used to int erpret this result as normal/abnormal . [facility] LancasterGtddzzdNXMRROSUUR2112-46-98 09:28:00 Test Item Value Reference Range Interpretation Comments Hct (test code = Hct) 34.7 42.0-54.0 [facility] LancasterFzaidfxQMKQYDUEPI4488-59-34 09:28:00 Test Item Value Reference Range Interpretation Comments MCHC (test code = MCHC) 33.4 32.0-36.0 [facility] LancasterUslgdhkUDCKDEZKWQ0922-89-62 09:28:00 Test Item Value Reference Range Interpretation Comments RBC (test code = RBC) 3.83 4.70-6.10 [facility] LancasterIsrkujkRNRXIETNZJ2662-76-89:28:00 Test Item Value Reference Range Interpretation Comments Hgb (test code = Hgb) 11.6 14.0-18.0 [facility] LancasterReclapjZMXYKZTAIN0402-99-01 09:28:00 Test Item Value Reference Range Interpretation Comments Platelet (test code = Platelet) 171 133-450 [facility] LancasterBhpbwgeDZOZMEEIVW6019-56-89 09:28:00 Test Item Value Reference Range Interpretation Comments MPV (test code = MPV) 7.8 7.4-10.4 [facility] LancasterOwlaruvQUPQKKUKLW7324-76-74 09:28:00 Test Item Value Reference Range Interpretation Comments RDW (test code = RDW) 14.8 11.5-14.5 [facility] LancasterKnpxudvKBOOVXLFRS5290-19-11 09:28:00 Test Item Value Reference Range Interpretation Comments MCV (test code = MCV) 90.7 80.0-94.0 [facility] LancasterVotpxcnPBLTLHQSUL9025-82-65 09:28:00 Test Item Value Reference Range Interpretation Comments MCH (test code = MCH) 30.3 pg 27.0-31.0 [facility] LancasterWstxvjoVEAIBPVXLI7797-83-29 09:28:00 Test Item Value Reference Range Interpretation Comments WBC (test code = WBC) 8.4 3.7-10.4 [facility] AND [id number] 11:55:00 Test Item Value Reference Range Interpretation Comments Occult Bld Stl (test Positive *ABN*(11/27/17 code = Occult Bld Stl) 6:55 AM) [facility] AND [id number] 11:55:00 Test Item Value Reference Range Interpretation Comments Occult Bld Stl (test Positive *ABN*(11/27/17 code = Occult Bld Stl) 6:55 AM) [facility] AND [id number] 07:33:00 Test Item Value Reference Range Interpretation Comments UA Color (test code = UA Color) STRAW [facility] AND [id number] 07:33:00 Test Item Value Reference Range Interpretation Comments UA Urobilinogen (test code = UA <=1.0 mg/dL 0.1-1.0 Urobilinogen) [facility] AND [id number] 07:33:00 Test Item Value Reference Range Interpretation Comments UA Nitrite (test code Negative (11/27/17 2:33 = UA Nitrite) AM) [facility] AND [id number] 07:33:00 Test Item Value Reference Range Interpretation Comments UA Leuk Est (test Negative (11/27/17 2:33 code = UA Leuk Est) AM) [facility] AND [id number] 07:33:00 Test Item Value Reference Range Interpretation Comments UA Sq Epi (test code = UA Sq Occasional /LPF Epi) [facility] AND [id number] 07:33:00 Test Item Value Reference Range Interpretation Comments UA RBC (test code = 1 See_Comment [Automa maame message] The UA RBC) system which ge nerated this result transmit maame reference range : <=2. The reference range was not used to interpr et this result as aaliyah l/abnormal. [facility] AND [id number] 07:33:00 Test Item Value Reference Range Interpretation Comments UA WBC (test code = no gt See_Comment [Automa maame message] The UA WBC) system which ge nerated this result transmit maame reference range : <=5. The reference range was not used to interpr et this result as aaliyah l/abnormal. [facility] AND [id number] 07:33:00 Test Item Value Reference Range Interpretation Comments UA Blood (test code = Negative (11/27/17 2:33 UA Blood) AM) [facility] AND [id number] 07:33:00 Test Item Value Reference Range Interpretation Comments UA Protein (test code = UA Negative mg/dL Protein) [facility] [id number] 07:33:00 Test Item Value Reference Range Interpretation Comments UA pH (test code = UA pH) 6.0 1 5.0-8.0 [facility] AND [id number] 07:33:00 Test Item Value Reference Range Interpretation Comments UA Bili (test code = Negative *NA*(11/27/17 UA Bili) 2:33 AM) [facility] AND [id number] 07:33:00 Test Item Value Reference Range Interpretation Comments UA Ketones (test code = UA Negative mg/dL Ketones) [facility] [id number] 07:33:00 Test Item Value Reference Range Interpretation Comments UA Turbidity (test code = Clear (11/27/17 2:33 UA Turbidity) AM) [facility] AND [id number] 07:33:00 Test Item Value Reference Range Interpretation Comments UA Spec Grav (test code = UA Spec 1.004 1 Grav) [facility] AND [id number] 07:33:00 Test Item Value Reference Range Interpretation Comments UA Glucose (test code = UA Negative mg/dL Glucose) [facility] [id number] 07:33:00 Test Item Value Reference Range Interpretation Comments UA Color (test code = UA Color) STRAW [facility] [id number] 07:33:00 Test Item Value Reference Range Interpretation Comments UA Urobilinogen (test code = UA <=1.0 mg/dL 0.1-1.0 Urobilinogen) [facility] [id number] 07:33:00 Test Item Value Reference Range Interpretation Comments UA Nitrite (test code Negative (11/27/17 2:33 = UA Nitrite) AM) [facility] [id number] 07:33:00 Test Item Value Reference Range Interpretation Comments UA Leuk Est (test Negative (11/27/17 2:33 code = UA Leuk Est) AM) [facility] [id number] 07:33:00 Test Item Value Reference Range Interpretation Comments UA Sq Epi (test code = UA Sq Occasional /LPF Epi) [facility] [id number] 07:33:00 Test Item Value Reference Range Interpretation Comments UA RBC (test code = 1 See_Comment [Automa maame message] The UA RBC) system which ge nerated this result transmit maame reference range : <=2. The reference range was not used to interpr et this result as aaliyah l/abnormal. [facility] AND [id number] 07:33:00 Test Item Value Reference Range Interpretation Comments UA WBC (test code = no gt See_Comment [Automa maame message] The UA WBC) system which ge nerated this result transmit maame reference range : <=5. The reference range was not used to interpr et this result as aaliyah l/abnormal. [facility] [id number] 07:33:00 Test Item Value Reference Range Interpretation Comments UA Blood (test code = Negative (11/27/17 2:33 UA Blood) AM) [facility] [id number] 07:33:00 Test Item Value Reference Range Interpretation Comments UA Protein (test code = UA Negative mg/dL Protein) [facility] [id number] 07:33:00 Test Item Value Reference Range Interpretation Comments UA pH (test code = UA pH) 6.0 1 5.0-8.0 [facility] [id number] 07:33:00 Test Item Value Reference Range Interpretation Comments UA Bili (test code = Negative *NA*(11/27/17 UA Bili) 2:33 AM) [facility] [id number] 07:33:00 Test Item Value Reference Range Interpretation Comments UA Ketones (test code = UA Negative mg/dL Ketones) [facility] [id number] 07:33:00 Test Item Value Reference Range Interpretation Comments UA Turbidity (test code = Clear (11/27/17 2:33 UA Turbidity) AM) [facility] AND [id number] 07:33:00 Test Item Value Reference Range Interpretation Comments UA Spec Grav (test code = UA Spec 1.004 1 Grav) [facility] [id number] 07:33:00 Test Item Value Reference Range Interpretation Comments UA Glucose (test code = UA Negative mg/dL Glucose) [facility]2018-09-15 06:50:00 Test Item Value Reference Range Interpretation Comments Lipase Lvl (test code = Lipase Lvl) 360 73393 [facility]2018-09-15 06:50:00 Test Item Value Reference Range Interpretation Comments Albumin Lvl (test code = Albumin Lvl) 4.1 3.5-5.0 [facility]2018-09-15 06:50:00 Test Item Value Reference Range Interpretation Comments Total Protein (test code = Total 7.6 6.4-8.4 Protein) [facility]2018-09-15 06:50:00 Test Item Value Reference Range Interpretation Comments Calcium Lvl (test code = Calcium Lvl) 8.3 8.5-10.5 [facility]2018-09-15 06:50:00 Test Item Value Reference Range Interpretation Comments eGFR (test code = eGFR) 35 [facility]2018-09-15 06:50:00 Test Item Value Reference Range Interpretation Comments Alk Phos (test code = Alk Phos) 115 39-136 [facility]2018-09-15 06:50:00 Test Item Value Reference Range Interpretation Comments AST (test code = AST) 21 See_Comment [Auto mated message] The system which ge nerated this result transmit maame reference range : <=37. The reference range was not used to interpr et this result as aaliyah l/abnormal. [facility]2018-09-15 06:50:00 Test Item Value Reference Range Interpretation Comments ALT (test code = ALT) 18 See_Comment [Auto mated message] The system which ge nerated this result transmit maame reference range : <=65. The reference range was not used to interpr et this result as aaliyah l/abnormal. [id number] 06:50:00 Test Item Value Reference Range Interpretation Comments Bili Total (test code = Bili Total) 0.2 0.2-1.3 [facility]2018-09-15 06:50:00 Test Item Value Reference Range Interpretation Comments BUN (test code = BUN) 44 7-22 [place] 175328-09-15 06:50:00 Test Item Value Reference Range Interpretation Comments Glucose Lvl (test code = Glucose Lvl) 90 70-99 [facility]2018-09-15 06:50:00 Test Item Value Reference Range Interpretation Comments Chloride Lvl (test code = Chloride Lvl) 106 95-109 [facility]2018-09-15 06:50:00 Test Item Value Reference Range Interpretation Comments Creatinine Lvl (test code = Creatinine 2.11 0.50-1.40 Lvl) [facility]2018-09-15 06:50:00 Test Item Value Reference Range Interpretation Comments Sodium Lvl (test code = Sodium Lvl) 136 135-145 [facility]2018-09-15 06:50:00 Test Item Value Reference Range Interpretation Comments Potassium Lvl (test code = Potassium 4.9 3.5-5.1 Lvl) [facility]2018-09-15 06:50:00 Test Item Value Reference Range Interpretation Comments CO2 (test code = CO2) 20 24-32 [place] 175328-09-15 06:50:00 Test Item Value Reference Range Interpretation Comments AGAP (test code = AGAP) 14.9 10.0-20.0 [facility]2018-09-15 06:50:00 Test Item Value Reference Range Interpretation Comments B/C Ratio (test code = B/C Ratio) 21 1 6-25 [facility]2018-09-15 06:50:00 Test Item Value Reference Range Interpretation Comments Globulin (test code = Globulin) 3.5 2.7-4.2 [facility]2018-09-15 06:50:00 Test Item Value Reference Range Interpretation Comments A/G Ratio (test code = A/G Ratio) 1.2 1 0.7-1.6 [facility] La[id number] 06:50:00 Test Item Value Reference Range Interpretation Comments MCH (test code = MCH) 30.2 pg 27.0-31.0 [facility] LancasterZohamyzREYZIRHNYH0299-94-04 06:50:00 Test Item Value Reference Range Interpretation Comments MCHC (test code = MCHC) 33.7 32.0-36.0 [facility] LancasterDuzsjoeEKMCTMACLB0549-71-52 06:50:00 Test Item Value Reference Range Interpretation Comments Hct (test code = Hct) 36.8 42.0-54.0 [facility] LancasterSiwuvagUVODQXGZHW7210-70-37 06:50:00 Test Item Value Reference Range Interpretation Comments MCV (test code = MCV) 89.7 80.0-94.0 [facility] LancasterXxqfdkzKLDNMAZEJT5712-49-02 06:50:00 Test Item Value Reference Range Interpretation Comments RDW (test code = RDW) 14.9 11.5-14.5 [facility] LancasterDzjismvQWQVPLKTIJ7516-01-13 06:50:00 Test Item Value Reference Range Interpretation Comments Platelet (test code = Platelet) 202 133-450 [facility] LancasterCmlxngfORCSZFXDOD3523-80-57 06:50:00 Test Item Value Reference Range Interpretation Comments MPV (test code = MPV) 7.6 7.4-10.4 [facility] LancasterQqqedboMKGJHHYAFQ9012-30-02 06:50:00 Test Item Value Reference Range Interpretation Comments WBC (test code = WBC) 14.9 3.7-10.4 [facility] LancasterTamqnjxMTSTBSLEWI0934-06-42 06:50:00 Test Item Value Reference Range Interpretation Comments RBC (test code = RBC) 4.10 4.70-6.10 [facility] LancasterUqjjgzeANWSWLAUXO5599-07-14 06:50:00 Test Item Value Reference Range Interpretation Comments Hgb (test code = Hgb) 12.4 14.0-18.0 [facility] LancasterHclidziJZDWLPTERU3954-18-10 06:50:00 Test Item Value Reference Range Interpretation Comments Basophils (test code = 0.3 See_Comment [Aut omated message] The Basophils) system which ge nerated this result tra nsmitted reference range : <=1.0. The reference r ashley was not used to int erpret this result as normal/abnormal . [facility] LancasterNntsruuLIWZWBFLPH3823-59-56 06:50:00 Test Item Value Reference Range Interpretation Comments Neutrophils # (test code = Neutrophils 9.2 1.5-8.1 #) [facility] LancasterWrotptqAILNJJQXEO3684-75-87 06:50:00 Test Item Value Reference Range Interpretation Comments Lymphocytes # (test code = Lymphocytes 4.2 1.0-5.5 #) [facility] LancasterSddctvyVXMMJOAPKH9749-21-32 06:50:00 Test Item Value Reference Range Interpretation Comments Monocytes # (test code 1.1 See_Comment [Aut omated message] The = Monocytes #) system which generated this result tra nsmitted reference range : <=0.8. The reference r ashley was not used to int erpret this result as normal/abnormal . [facility] LancasterBksuyarPAUKTKGDPT2422-53-49 06:50:00 Test Item Value Reference Range Interpretation Comments Eosinophils # (test code 0.3 See_Comment [A utomated message] The = Eosinophils #) system whic h generated this result tra nsmitted reference range : <=0.5. The reference r ashley was not used to int erpret this result as normal/abnormal . [facility] LancasterPjtrclvMPUZRTNMDC4387-68-06 06:50:00 Test Item Value Reference Range Interpretation Comments Segs (test code = Segs) 61.6 45.0-75.0 [facility] LancasterOigvwvgMZDBNGXSWN1567-59-40 06:50:00 Test Item Value Reference Range Interpretation Comments Lymphocytes (test code = Lymphocytes) 28.6 20.0-40.0 [facility] LancasterJovijmiBCWYAJMLWG4743-29-19 06:50:00 Test Item Value Reference Range Interpretation Comments Monocytes (test code = Monocytes) 7.4 2.0-12.0 [facility]NKJ[facility]998[facility] 06:50:00 Test Item Value Reference Range Interpretation Comments Eosinophils (test code = 2.1 See_Comment [A utomated message] The Eosinophils) system which ge nerated this result tra nsmitted reference range : <=4.0. The reference r ashley was not used to int erpret this result as normal/abnormal . [facility]2018-09-15 06:50:00 Test Item Value Reference Range Interpretation Comments Lipase Lvl (test code = Lipase Lvl) 360 73-393 [facility]2018-09-15 06:50:00 Test Item Value Reference Range Interpretation Comments Albumin Lvl (test code = Albumin Lvl) 4.1 3.5-5.0 [place] 175328-09-15 06:50:00 Test Item Value Reference Range Interpretation Comments Total Protein (test code = Total 7.6 6.4-8.4 Protein) [facility]2018-09-15 06:50:00 Test Item Value Reference Range Interpretation Comments Calcium Lvl (test code = Calcium Lvl) 8.3 8.5-10.5 [facility]2018-09-15 06:50:00 Test Item Value Reference Range Interpretation Comments eGFR (test code = eGFR) 35 [facility]2018-09-15 06:50:00 Test Item Value Reference Range Interpretation Comments Alk Phos (test code = Alk Phos) 115 39-136 [facility]2018-09-15 06:50:00 Test Item Value Reference Range Interpretation Comments AST (test code = AST) 21 See_Comment [Auto mated message] The system which ge nerated this result transmit maame reference range : <=37. The reference range was not used to interpr et this result as aaliyah l/abnormal. [facility]2018-09-15 06:50:00 Test Item Value Reference Range Interpretation Comments ALT (test code = ALT) 18 See_Comment [Auto mated message] The system which ge nerated this result transmit maame reference range : <=65. The reference range was not used to interpr et this result as aaliyah l/abnormal. [facility]2018-09-15 06:50:00 Test Item Value Reference Range Interpretation Comments Bili Total (test code = Bili Total) 0.2 0.2-1.3 [facility]2018-09-15 06:50:00 Test Item Value Reference Range Interpretation Comments BUN (test code = BUN) 44 7-22 [facility]2018-09-15 06:50:00 Test Item Value Reference Range Interpretation Comments Glucose Lvl (test code = Glucose Lvl) 90 70-99 [facility]2018-09-15 06:50:00 Test Item Value Reference Range Interpretation Comments Chloride Lvl (test code = Chloride Lvl) 106 95-109 [facility]2018-09-15 06:50:00 Test Item Value Reference Range Interpretation Comments Creatinine Lvl (test code = Creatinine 2.11 0.50-1.40 Lvl) [facility]2018-09-15 06:50:00 Test Item Value Reference Range Interpretation Comments Sodium Lvl (test code = Sodium Lvl) 136 135-145 [facility]2018-09-15 06:50:00 Test Item Value Reference Range Interpretation Comments Potassium Lvl (test code = Potassium 4.9 3.5-5.1 Lvl) [facility]2018-09-15 06:50:00 Test Item Value Reference Range Interpretation Comments CO2 (test code = CO2) 20 24-32 [facility]2018-09-15 06:50:00 Test Item Value Reference Range Interpretation Comments AGAP (test code = AGAP) 14.9 10.0-20.0 [facility]2018-09-15 06:50:00 Test Item Value Reference Range Interpretation Comments B/C Ratio (test code = B/C Ratio) 21 1 6-25 [facility]2018-09-15 06:50:00 Test Item Value Reference Range Interpretation Comments Globulin (test code = Globulin) 3.5 2.7-4.2 [facility]2018-09-15 06:50:00 Test Item Value Reference Range Interpretation Comments A/G Ratio (test code = A/G Ratio) 1.2 1 0.7-1.6 [facility] LancasterCpozcxlMRTBCUIVVO3764-21-15 06:50:00 Test Item Value Reference Range Interpretation Comments MCH (test code = MCH) 30.2 pg 27.0-31.0 [facility] LancasterWnjexuwNVCMUDQKCJ6207-48-05 06:50:00 Test Item Value Reference Range Interpretation Comments MCHC (test code = MCHC) 33.7 32.0-36.0 [facility] LancasterTkwvzcsIUUVVIUXPN1081-96-59 06:50:00 Test Item Value Reference Range Interpretation Comments Hct (test code = Hct) 36.8 42.0-54.0 [facility] LancasterEidipvnIJIRSRYXBS2538-40-78 06:50:00 Test Item Value Reference Range Interpretation Comments MCV (test code = MCV) 89.7 80.0-94.0 [facility] LancasterQhnoaujGCKTFSMBSR7789-21-18 06:50:00 Test Item Value Reference Range Interpretation Comments RDW (test code = RDW) 14.9 11.5-14.5 [facility] LancasterXtpzosuOTHZZRDYFQ5315-28-55 06:50:00 Test Item Value Reference Range Interpretation Comments Platelet (test code = Platelet) 202 133-450 [facility] LancasterDizsftuRILEJBNYCI3137-10-01 06:50:00 Test Item Value Reference Range Interpretation Comments MPV (test code = MPV) 7.6 7.4-10.4 [facility] LancasterFezsideVVHJHZARZW0885-03-06 06:50:00 Test Item Value Reference Range Interpretation Comments WBC (test code = WBC) 14.9 3.7-10.4 [facility] LancasterDdzprkpKJEEZDWZYP0832-61-95 06:50:00 Test Item Value Reference Range Interpretation Comments RBC (test code = RBC) 4.10 4.70-6.10 [facility] LancasterOusmkjbWMFGQEXDFH2143-48-53 06:50:00 Test Item Value Reference Range Interpretation Comments Hgb (test code = Hgb) 12.4 14.0-18.0 [facility] LancasterYbdpvfjOSDXSVCHSE5065-03-74 06:50:00 Test Item Value Reference Range Interpretation Comments Basophils (test code = 0.3 See_Comment [Aut omated message] The Basophils) system which ge nerated this result tra nsmitted reference range : <=1.0. The reference r ashley was not used to int erpret this result as normal/abnormal . [facility] LancasterOsyvrsfRVYEPNJFFK5656-27-10 06:50:00 Test Item Value Reference Range Interpretation Comments Neutrophils # (test code = Neutrophils 9.2 1.5-8.1 #) [facility] LancasterBfelsenFDCMPOGCWI3249-62-89 06:50:00 Test Item Value Reference Range Interpretation Comments Lymphocytes # (test code = Lymphocytes 4.2 1.0-5.5 #) [facility] LancasterVfxghicAXKGCKOQZZ8032-57-42 06:50:00 Test Item Value Reference Range Interpretation Comments Monocytes # (test code 1.1 See_Comment [Aut omated message] The = Monocytes #) system which generated this result tra nsmitted reference range : <=0.8. The reference r ashley was not used to int erpret this result as normal/abnormal . [facility] LancasterSpxrnleYAFPISIDHQ2899-83-68 06:50:00 Test Item Value Reference Range Interpretation Comments Eosinophils # (test code 0.3 See_Comment [A utomated message] The = Eosinophils #) system whic h generated this result tra nsmitted reference range : <=0.5. The reference r ashley was not used to int erpret this result as normal/abnormal . [facility] LancasterDptzmnqLELBYFDXUX5026-89-96 06:50:00 Test Item Value Reference Range Interpretation Comments Segs (test code = Segs) 61.6 45.0-75.0 [facility] LancasterIptvxqnEYSERVVWEW6021-62-02 06:50:00 Test Item Value Reference Range Interpretation Comments Lymphocytes (test code = Lymphocytes) 28.6 20.0-40.0 [facility] LancasterAxzmhvxEVFUQAQDBE1979-01-66 06:50:00 Test Item Value Reference Range Interpretation Comments Monocytes (test code = Monocytes) 7.4 2.0-12.0 [facility] LancasterWyushqpOEXTULRBXI6486-08-76 06:50:00 Test Item Value Reference Range Interpretation Comments Eosinophils (test code = 2.1 See_Comment [A utomated message] The Eosinophils) system which ge nerated this result tra nsmitted reference range : <=4.0. The reference r ashley was not used to int erpret this result as normal/abnormal . [facility] AND [id number] 04:57:11 Test Item Value Reference Range Interpretation Comments UA Hyal Cast 0-2 (05/23/17 See_Comment [Automated mes tita] (test code = UA 11:57 PM) The system w hich Hyal Cast) generated this result transmitted ref erence range: <=2. The reference range was not used to int erpret this result as normal/abnormal . [facility] AND [id number] 04:57:11 Test Item Value Reference Range Interpretation Comments UA RBC (test None Seen See_Comment [Automated mes tita] code = UA RBC) (05/23/17 11:57 The system which PM) generated this result transmitted ref erence range: <=2. The reference range was not used to int erpret this result as normal/abnormal . [facility] AND [id number] 04:57:11 Test Item Value Reference Range Interpretation Comments UA WBC (test code = UA None Seen (05/23/17 WBC) 11:57 PM) [facility] AND [id number] 04:57:11 Test Item Value Reference Range Interpretation Comments UA Nitrite (test code Negative (05/23/17 11:57 = UA Nitrite) PM) [facility] AND [id number] 04:57:11 Test Item Value Reference Range Interpretation Comments UA Sq Epi (test code = UA Sq Epi) Few /LPF [facility] AND [id number] 04:57:11 Test Item Value Reference Range Interpretation Comments UA Leuk Est (test Negative (05/23/17 11:57 code = UA Leuk Est) PM) [facility] AND [id number] 04:57:11 Test Item Value Reference Range Interpretation Comments UA Spec Grav (test *NA*(05/23/17 11:57 PM) code = UA Spec Grav) [facility] AND [id number] 04:57:11 Test Item Value Reference Range Interpretation Comments UA Protein (test code Negative (05/23/17 11:57 = UA Protein) PM) [facility] AND [id number] 04:57:11 Test Item Value Reference Range Interpretation Comments UA Turbidity (test code = Clear (05/23/17 11:57 UA Turbidity) PM) [facility] AND [id number] 04:57:11 Test Item Value Reference Range Interpretation Comments UA Color (test code = Yellow *NA*(05/23/17 UA Color) 11:57 PM) [facility] AND [id number] 04:57:11 Test Item Value Reference Range Interpretation Comments UA pH (test code = UA pH) 6.5 1 5.0-8.0 [facility] AND [id number] 04:57:11 Test Item Value Reference Range Interpretation Comments UA Urobilinogen (test code = UA 0.2 0.1-1.0 Urobilinogen) [facility] [id number] 04:57:11 Test Item Value Reference Range Interpretation Comments UA Blood (test code = Negative (05/23/17 11:57 UA Blood) PM) [facility] [id number] 04:57:11 Test Item Value Reference Range Interpretation Comments UA Glucose (test code Negative (05/23/17 11:57 = UA Glucose) PM) [facility] AND [id number] 04:57:11 Test Item Value Reference Range Interpretation Comments UA Bili (test code = Negative *NA*(05/23/17 UA Bili) 11:57 PM) [facility] [id number] 04:57:11 Test Item Value Reference Range Interpretation Comments UA Ketones (test code Negative *NA*(05/23/17 = UA Ketones) 11:57 PM) [facility] AND [id number] 04:57:11 Test Item Value Reference Range Interpretation Comments UA Hyal Cast 0-2 (05/23/17 See_Comment [Automated mes tita] (test code = UA 11:57 PM) The system w [facility] Hyal Cast) generated this result transmitted ref erence range: <=2. The reference range was not used to int erpret this result as normal/abnormal . [facility] [id number] 04:57:11 Test Item Value Reference Range Interpretation Comments UA RBC (test None Seen See_Comment [Automated mes tita] code = UA RBC) (05/23/17 11:57 The system which PM) generated this result transmitted ref erence range: <=2. The reference range was not used to int erpret this result as normal/abnormal . [facility] [id number] 04:57:11 Test Item Value Reference Range Interpretation Comments UA WBC (test code = UA None Seen (05/23/17 WBC) 11:57 PM) [facility] AND [id number] 04:57:11 Test Item Value Reference Range Interpretation Comments UA Nitrite (test code Negative (05/23/17 11:57 = UA Nitrite) PM) [facility] AND [id number] 04:57:11 Test Item Value Reference Range Interpretation Comments UA Sq Epi (test code = UA Sq Epi) Few /LPF [facility] AND [id number] 04:57:11 Test Item Value Reference Range Interpretation Comments UA Leuk Est (test Negative (05/23/17 11:57 code = UA Leuk Est) PM) [facility] AND [id number] 04:57:11 Test Item Value Reference Range Interpretation Comments UA Spec Grav (test *NA*(05/23/17 11:57 PM) code = UA Spec Grav) [facility] AND [id number] 04:57:11 Test Item Value Reference Range Interpretation Comments UA Protein (test code Negative (05/23/17 11:57 = UA Protein) PM) [facility] AND [id number] 04:57:11 Test Item Value Reference Range Interpretation Comments UA Turbidity (test code = Clear (05/23/17 11:57 UA Turbidity) PM) [facility] AND [id number] 04:57:11 Test Item Value Reference Range Interpretation Comments UA Color (test code = Yellow *NA*(05/23/17 UA Color) 11:57 PM) [facility] AND [id number] 04:57:11 Test Item Value Reference Range Interpretation Comments UA pH (test code = UA pH) 6.5 1 5.0-8.0 [facility] AND [id number] 04:57:11 Test Item Value Reference Range Interpretation Comments UA Urobilinogen (test code = UA 0.2 0.1-1.0 Urobilinogen) [facility] AND [id number] 04:57:11 Test Item Value Reference Range Interpretation Comments UA Blood (test code = Negative (05/23/17 11:57 UA Blood) PM) [facility] AND [id number] 04:57:11 Test Item Value Reference Range Interpretation Comments UA Glucose (test code Negative (05/23/17 11:57 = UA Glucose) PM) [facility] AND [id number] 04:57:11 Test Item Value Reference Range Interpretation Comments UA Bili (test code = Negative *NA*(3/11/18 UA Bili) 11:57 PM) [facility] [id number] 04:57:11 Test Item Value Reference Range Interpretation Comments UA Ketones (test code Negative *NA*(05/23/17 = UA Ketones) 11:57 PM) [facility] [id number] 02:37:00 Test Item Value Reference Range Interpretation Comments Troponin-I (test code no gt See_Comment [Auto mated message] The = Troponin-I) system which g enerated this result transmit maame reference range : <=0.40. The reference r ashley was not used to interpr et this result as aaliyah l/abnormal. [facility] [employer] [id number] 02:37:00 Test Item Value Reference Range Interpretation Comments Lactic Acid Lvl (test code = Lactic 0.8 0.5-2.2 Acid Lvl) [facility] [id number] 02:37:00 Test Item Value Reference Range Interpretation Comments Globulin (test code = Globulin) 3.1 2.7-4.2 [facility] [id number] 02:37:00 Test Item Value Reference Range Interpretation Comments A/G Ratio (test code = A/G Ratio) 0.9 1 0.7-1.6 [facility] [id number] 02:37:00 Test Item Value Reference Range Interpretation Comments Alk Phos (test code = Alk Phos) 103 39-136 [facility] [id number] 02:37:00 Test Item Value Reference Range Interpretation Comments AST (test code = AST) 21 See_Comment [Auto mated message] The system which ge nerated this result transmit maame reference range : <=37. The reference range was not used to interpr et this result as aaliyah l/abnormal. [facility] [employer] [id number] 02:37:00 Test Item Value Reference Range Interpretation Comments Bili Direct (test code 0.1 See_Comment [Aut omated message] The = Bili Direct) system which generated this result tra nsmitted reference range : <=0.3. The reference r ashley was not used to int erpret this result as aaliyah l/abnormal. [facility] [employer] [id number] 02:37:00 Test Item Value Reference Range Interpretation Comments Bili Total (test code = Bili Total) 0.1 0.2-1.3 [facility]2018-03-12 02:37:00 Test Item Value Reference Range Interpretation Comments Albumin Lvl (test code = Albumin Lvl) 2.9 3.5-5.0 [facility]2018-03-12 02:37:00 Test Item Value Reference Range Interpretation Comments ALT (test code = ALT) 23 See_Comment [Auto mated message] The system which ge nerated this result transmit maame reference range : <=65. The reference range was not used to interpr et this result as aaliyah l/abnormal. [id number] 02:37:00 Test Item Value Reference Range Interpretation Comments Total Protein (test code = Total 6.0 6.4-8.4 Protein) [facility]2018-03-12 02:37:00 Test Item Value Reference Range Interpretation Comments Bili Indirect (test 0.0 See_Comment [Automa maame message] The code = Bili Indirect) system which generated this result tra nsmitted reference range : <=1.0. The reference r ashley was not used to int erpret this result as normal/abnormal . [facility]2018-03-12 02:37:00 Test Item Value Reference Range Interpretation Comments eGFR (test code = eGFR) 43 [facility]2018-03-12 02:37:00 Test Item Value Reference Range Interpretation Comments Sodium Lvl (test code = Sodium Lvl) 138 135-145 [facility]2018-03-12 02:37:00 Test Item Value Reference Range Interpretation Comments Chloride Lvl (test code = Chloride Lvl) 108 95-109 [facility]2018-03-12 02:37:00 Test Item Value Reference Range Interpretation Comments Potassium Lvl (test code = Potassium 4.5 3.5-5.1 Lvl) [facility]2018-03-12 02:37:00 Test Item Value Reference Range Interpretation Comments Creatinine Lvl (test code = Creatinine 1.82 0.50-1.40 Lvl) [place] [id number] 02:37:00 Test Item Value Reference Range Interpretation Comments Calcium Lvl (test code = Calcium Lvl) 8.1 8.5-10.5 [facility]2018-03-12 02:37:00 Test Item Value Reference Range Interpretation Comments CO2 (test code = CO2) 23 24-32 [facility]2018-03-12 02:37:00 Test Item Value Reference Range Interpretation Comments BUN (test code = BUN) 16 7-22 [facility]2018-03-12 02:37:00 Test Item Value Reference Range Interpretation Comments Glucose Lvl (test code = Glucose Lvl) 94 70-99 [facility]2018-03-12 02:37:00 Test Item Value Reference Range Interpretation Comments AGAP (test code = AGAP) 11.5 10.0-20.0 [facility] La[id number] 02:37:00 Test Item Value Reference Range Interpretation Comments Basophils (test code = 1.1 See_Comment [Aut omated message] The Basophils) system which ge nerated this result tra nsmitted reference range : <=1.0. The reference r ashley was not used to int erpret this result as normal/abnormal . [facility] LancasterCmubrifCZTCQEMZKT0898-28-31 02:37:00 Test Item Value Reference Range Interpretation Comments Eosinophils (test code = 2.8 See_Comment [A utomated message] The Eosinophils) system which ge nerated this result tra nsmitted reference range : <=4.0. The reference r ashley was not used to int erpret this result as normal/abnormal . [facility] LancasterFspimywKFDODVQMFS0495-09-13 02:37:00 Test Item Value Reference Range Interpretation Comments Segs (test code = Segs) 50.8 45.0-75.0 [facility] LancasterOhexccvJZIHLYBSUW2748-46-24 02:37:00 Test Item Value Reference Range Interpretation Comments Basophils # (test code 0.1 See_Comment [Aut omated message] The = Basophils #) system which generated this result tra nsmitted reference range : <=0.2. The reference r ashley was not used to int erpret this result as normal/abnormal . [place] [id number] 02:37:00 Test Item Value Reference Range Interpretation Comments Eosinophils # (test code 0.3 See_Comment [A utomated message] The = Eosinophils #) system whic h generated this result tra nsmitted reference range : <=0.5. The reference r ashley was not used to int erpret this result as normal/abnormal . [facility] LancasterXsmsmndZUEPHCOLGA0263-24-52 02:37:00 Test Item Value Reference Range Interpretation Comments Monocytes # (test code 0.6 See_Comment [Aut omated message] The = Monocytes #) system which generated this result tra nsmitted reference range : <=0.8. The reference r ashley was not used to int erpret this result as normal/abnormal . [facility] LancasterFrzvoetIKHPEOODXS8806-55-51 02:37:00 Test Item Value Reference Range Interpretation Comments Lymphocytes # (test code = Lymphocytes 3.5 1.0-5.5 #) [facility] La[id number] 02:37:00 Test Item Value Reference Range Interpretation Comments Segs-Bands # (test code = Segs-Bands #) 4.6 1.5-8.1 [facility] LancasterGnhwwffYPFKIZFCTZ1715-60-02 02:37:00 Test Item Value Reference Range Interpretation Comments Monocytes (test code = Monocytes) 7.0 2.0-12.0 [facility] LancasterNzvluifPBVARSCVFZ0687-52-73 02:37:00 Test Item Value Reference Range Interpretation Comments Lymphocytes (test code = Lymphocytes) 38.3 20.0-40.0 [facility] LancasterDkqeosuAUHIEDBGOW3011-75-39 02:37:00 Test Item Value Reference Range Interpretation Comments Hgb (test code = Hgb) 8.5 14.0-18.0 [facility] LancasterWextloyQLKUUQAPMV0318-63-66 02:37:00 Test Item Value Reference Range Interpretation Comments Hct (test code = Hct) 26.0 42.0-54.0 [facility] LancasterIllolaxVGUOPJVYOW8607-32-11 02:37:00 Test Item Value Reference Range Interpretation Comments RBC (test code = RBC) 3.28 4.70-6.10 [facility] LancasterMbcadqqRZMDIMFFCG4123-32-09 02:37:00 Test Item Value Reference Range Interpretation Comments WBC (test code = WBC) 9.0 3.7-10.4 [facility] LancasterJmincwrXDDDSIJQCH7233-13-52 02:37:00 Test Item Value Reference Range Interpretation Comments MCHC (test code = MCHC) 32.7 32.0-36.0 [facility] LancasterDeorvtbWCYUZXIIJO1749-39-79 02:37:00 Test Item Value Reference Range Interpretation Comments MCV (test code = MCV) 79.4 80.0-94.0 [facility]EpugubhZYARCZUWTX3857-20-18 02:37:00 Test Item Value Reference Range Interpretation Comments MCH (test code = MCH) 26.0 pg 27.0-31.0 [facility] LancasterDdeygkoBZMTIFPCCT1267-95-42 02:37:00 Test Item Value Reference Range Interpretation Comments MPV (test code = MPV) 7.3 7.4-10.4 [facility] HospitalUwwwjsbMXWQOFPCHV0559-02-09 02:37:00 Test Item Value Reference Range Interpretation Comments Platelet (test code = Platelet) 207 133-450 [facility] HospitalUkhnsuzNUILOHVTQX8811-98-91 02:37:00 Test Item Value Reference Range Interpretation Comments RDW (test code = RDW) 20.1 11.5-14.5 [facility] LancasterGvdpqvlNALXRCPIFZ5209-74-59 02:37:00 Test Item Value Reference Range Interpretation Comments INR (test code = INR) 0.89 1 0.85-1.17 [facility] HospitalUjalvlpSULBPNXMJE5481-56-04 02:37:00 Test Item Value Reference Range Interpretation Comments PT (test code = PT) 12.0 s 12.0-14.7 [facility] HospitalTofqjxnOYQDVTDRAN6236-06-46 02:37:00 Test Item Value Reference Range Interpretation Comments PTT (test code = PTT) 24.1 s 22.9-35.8 [facility] [id number] 02:37:00 Test Item Value Reference Range Interpretation Comments Troponin-I (test code no gt See_Comment [Auto mated message] The = Troponin-I) system which g enerated this result transmit maame reference range : <=0.40. The reference r ashley was not used to interpr et this result as aaliyah l/abnormal. [facility] [id number] 02:37:00 Test Item Value Reference Range Interpretation Comments Lactic Acid Lvl (test code = Lactic 0.8 0.5-2.2 Acid Lvl) [facility] [id number] 02:37:00 Test Item Value Reference Range Interpretation Comments Globulin (test code = Globulin) 3.1 2.7-4.2 [facility] [id number] 02:37:00 Test Item Value Reference Range Interpretation Comments A/G Ratio (test code = A/G Ratio) 0.9 1 0.7-1.6 [place] 175328-03-12 02:37:00 Test Item Value Reference Range Interpretation Comments Alk Phos (test code = Alk Phos) 103 39-136 [place] 175328-03-12 02:37:00 Test Item Value Reference Range Interpretation Comments AST (test code = AST) 21 See_Comment [Auto mated message] The system which ge nerated this result transmit maame reference range : <=37. The reference range was not used to interpr et this result as aaliyah l/abnormal. [place] 175328-03-12 02:37:00 Test Item Value Reference Range Interpretation Comments Bili Direct (test code 0.1 See_Comment [Aut omated message] The = Bili Direct) system which generated this result tra nsmitted reference range : <=0.3. The reference r ashley was not used to int erpret this result as aaliyah l/abnormal. [place] 175328-03-12 02:37:00 Test Item Value Reference Range Interpretation Comments Bili Total (test code = Bili Total) 0.1 0.2-1.3 [place] 175328-03-12 02:37:00 Test Item Value Reference Range Interpretation Comments Albumin Lvl (test code = Albumin Lvl) 2.9 3.5-5.0 [place] 175328-03-12 02:37:00 Test Item Value Reference Range Interpretation Comments ALT (test code = ALT) 23 See_Comment [Auto mated message] The system which ge nerated this result transmit maame reference range : <=65. The reference range was not used to interpr et this result as aaliyah l/abnormal. [place] 175328-03-12 02:37:00 Test Item Value Reference Range Interpretation Comments Total Protein (test code = Total 6.0 6.4-8.4 Protein) [place] 175328-03-12 02:37:00 Test Item Value Reference Range Interpretation Comments Bili Indirect (test 0.0 See_Comment [Automa maame message] The code = Bili Indirect) system which generated this result tra nsmitted reference range : <=1.0. The reference r ashley was not used to int erpret this result as normal/abnormal . [facility]2018-03-12 02:37:00 Test Item Value Reference Range Interpretation Comments eGFR (test code = eGFR) 43 [facility]2018-03-12 02:37:00 Test Item Value Reference Range Interpretation Comments Sodium Lvl (test code = Sodium Lvl) 138 135-145 [facility]2018-03-12 02:37:00 Test Item Value Reference Range Interpretation Comments Chloride Lvl (test code = Chloride Lvl) 108 95-109 [facility]2018-03-12 02:37:00 Test Item Value Reference Range Interpretation Comments Potassium Lvl (test code = Potassium 4.5 3.5-5.1 Lvl) [facility]2018-03-12 02:37:00 Test Item Value Reference Range Interpretation Comments Creatinine Lvl (test code = Creatinine 1.82 0.50-1.40 Lvl) [facility]2018-03-12 02:37:00 Test Item Value Reference Range Interpretation Comments Calcium Lvl (test code = Calcium Lvl) 8.1 8.5-10.5 [place] 175328-03-12 02:37:00 Test Item Value Reference Range Interpretation Comments CO2 (test code = CO2) 23 24-32 [place] 175328-03-12 02:37:00 Test Item Value Reference Range Interpretation Comments BUN (test code = BUN) 16 7-22 [facility]2018-03-12 02:37:00 Test Item Value Reference Range Interpretation Comments Glucose Lvl (test code = Glucose Lvl) 94 70-99 [facility]2018-03-12 02:37:00 Test Item Value Reference Range Interpretation Comments AGAP (test code = AGAP) 11.5 10.0-20.0 [facility] LancasterEsdpwudOVMGCICPHH4415-21-77 02:37:00 Test Item Value Reference Range Interpretation Comments Basophils (test code = 1.1 See_Comment [Aut omated message] The Basophils) system which ge nerated this result tra nsmitted reference range : <=1.0. The reference r ashley was not used to int erpret this result as normal/abnormal . [facility] LancasterKibqucpGHSIPUKJVZ7582-99-86 02:37:00 Test Item Value Reference Range Interpretation Comments Eosinophils (test code = 2.8 See_Comment [A utomated message] The Eosinophils) system which ge nerated this result tra nsmitted reference range : <=4.0. The reference r ashley was not used to int erpret this result as normal/abnormal . [facility] LancasterBvtvtnyWQPEFBSQLU5830-21-06 02:37:00 Test Item Value Reference Range Interpretation Comments Segs (test code = Segs) 50.8 45.0-75.0 [facility] LancasterZuupmllMJTWJIREWH0193-05-94 02:37:00 Test Item Value Reference Range Interpretation Comments Basophils # (test code 0.1 See_Comment [Aut omated message] The = Basophils #) system which generated this result tra nsmitted reference range : <=0.2. The reference r ashley was not used to int erpret this result as normal/abnormal . [facility] LancasterWyeilmsRURSEWHNDS1161-30-63 02:37:00 Test Item Value Reference Range Interpretation Comments Eosinophils # (test code 0.3 See_Comment [A utomated message] The = Eosinophils #) system whic h generated this result tra nsmitted reference range : <=0.5. The reference r ashley was not used to int erpret this result as normal/abnormal . [facility] LancasterShylwhxPDUIQSKTED6160-23-54 02:37:00 Test Item Value Reference Range Interpretation Comments Monocytes # (test code 0.6 See_Comment [Aut omated message] The = Monocytes #) system which generated this result tra nsmitted reference range : <=0.8. The reference r ashley was not used to int erpret this result as normal/abnormal . [facility] LancasterTuiizviAVYAZGJVJC3846-96-01 02:37:00 Test Item Value Reference Range Interpretation Comments Lymphocytes # (test code = Lymphocytes 3.5 1.0-5.5 #) [facility] LancasterHlvzdlyKFXDEFOZWE5539-81-55 02:37:00 Test Item Value Reference Range Interpretation Comments Segs-Bands # (test code = Segs-Bands #) 4.6 1.5-8.1 [facility] LancasterIjgdhxbKAFXBTKJSW3140-23-20 02:37:00 Test Item Value Reference Range Interpretation Comments Monocytes (test code = Monocytes) 7.0 2.0-12.0 [facility] LancasterTypltmtKGMHQVGBCI3220-57-48 02:37:00 Test Item Value Reference Range Interpretation Comments Lymphocytes (test code = Lymphocytes) 38.3 20.0-40.0 [facility] LancasterIgdmqskTBYYJRCYBL1161-54-82 02:37:00 Test Item Value Reference Range Interpretation Comments Hgb (test code = Hgb) 8.5 14.0-18.0 [facility] LancasterYwzlurhHMGIMTOKFN5664-69-00 02:37:00 Test Item Value Reference Range Interpretation Comments Hct (test code = Hct) 26.0 42.0-54.0 [facility] LancasterErrktyyDJTQYFDYZJ5258-60-57 02:37:00 Test Item Value Reference Range Interpretation Comments RBC (test code = RBC) 3.28 4.70-6.10 [facility] LancasterBqvjseiDRFVWNBEDE9822-27-76 02:37:00 Test Item Value Reference Range Interpretation Comments WBC (test code = WBC) 9.0 3.7-10.4 [facility] LancasterDxmqqhwVZVUCIVUSG4961-02-70 02:37:00 Test Item Value Reference Range Interpretation Comments MCHC (test code = MCHC) 32.7 32.0-36.0 [facility] LancasterOcppokyCXBPRWOLFM3401-75-46 02:37:00 Test Item Value Reference Range Interpretation Comments MCV (test code = MCV) 79.4 80.0-94.0 [facility] LancasterBrfnoswSTLLVATAMK6535-53-61 02:37:00 Test Item Value Reference Range Interpretation Comments MCH (test code = MCH) 26.0 pg 27.0-31.0 [facility] LancasterPuxdmoaGSVBYYGGLE5826-36-91 02:37:00 Test Item Value Reference Range Interpretation Comments MPV (test code = MPV) 7.3 7.4-10.4 [facility] LancasterQspmpdkQDZEHYCVMX8650-13-16 02:37:00 Test Item Value Reference Range Interpretation Comments Platelet (test code = Platelet) 207 133-450 [facility] LancasterGanlstgDSHURHIVCC2359-86-52 02:37:00 Test Item Value Reference Range Interpretation Comments RDW (test code = RDW) 20.1 11.5-14.5 [facility] LancasterNghyhrmCJFPTZDVHC1617-04-86 02:37:00 Test Item Value Reference Range Interpretation Comments INR (test code = INR) 0.89 1 0.85-1.17 [facility] LancasterHxnbbyuVLHFWERSQB9806-22-16 02:37:00 Test Item Value Reference Range Interpretation Comments PT (test code = PT) 12.0 s 12.0-14.7 [facility]QgkiwknOVXBLAYXRX3411-43-87 02:37:00 Test Item Value Reference Range Interpretation Comments PTT (test code = PTT) 24.1 s 22.9-35.8 [facility] Notes Date/Time Note Provider Source 2018-07-22 [facility] 15:42:00-00:00 [facility] ([facility] Discharge Summary REPORT#:[id number] REPORT STATUS: Signed DATE:07/22/18 TIME: 1541 PATIENT: JEOVANY BUCKLEY UNIT #: [id number] ROOM/BED: [address] : 69 AGE: 52 SEX: M ATTEND: Norma Nicolas MD ADM AUTHOR: Seda Quinones MD * ALL edits or amendments must be made on the [employer]/computer document * PCP PCP Discharge to: home General Information Problem List/A P: 1. Intractable abdominal pain 2. Left flank pain Date of admission: Observation Start Date: 07/21/18 Date of admission: 07/21/18 Date of discharge: 07/22/18 Admission diagnosis: Abdominal pain Discharge diagnosis: Abdominal pain Hospital course: 52M with PMH of Bipolar, Kaveh's, CKD3b, hx of DVT, hx of kidney stones presents with 6 day hx of L flank pain r adiating down towards the front across the lower abdomen. Admitted for intractable flan k/abdominal pain. On arrival, patient was afebrile, BP125/83, P77, R16, 98%RA. A CT without contrast read as viral enterocolitis versus ileu s with mildly fluid-filled distention of small bowel loops and R colon, Mil d renal atrophy-no stones documented. UA was normal, showing no signs of i nfection. Patient was kept on NPO for bowel rest, mIVFs D5 1/2NS @ 125cc/hr, a nd Tramadol given for pain control. Patient's comorbities include Bipolar/Hu [place]ting[place] (continued on home Quetapine, Buspar, Lexapro, Trazadone), CKD3 (stable Cr on admission 2.22 with home Lisinopril held), hx of DVT (continued on home Eliquis 5 bid), and tobacco use ( given nicotine patch). Patient's diet advanced on hospital day #2 to fu ll liquid, which he tolerated well. Patient was discharged to home with zofran and carafate with normal vital signs, breathing well on room air, ambulating in dependently. Instructed to advance diet slowly at home. Follow up with PCP as soon as possible. Pt. condition on discharge: improved, stable Med Rec Med Rec Discharge meds: Continue taking these medications: QUEtiapine (SEROquel) 400 MG TAB 200 MILLIGRAM ORAL TWICE DAILY. traZODone (DESYREL) 100 MG TAB 100 MILLIGRAM ORAL BEDTIME. ZOLPIDEM (AMBIEN) 10 MG TAB 10 MILLIGRAM ORAL BEDTIME. ESCITALOPRAM (LEXAPRO) 20 MG TAB 20 MILLIGRAM ORAL TWICE DAILY. LISINOPRIL (ZESTRIL) 5 MG TAB 5 MILLIGRAM ORAL DAILY. busPIRone (BUSPAR) 15 MG TAB 5 MILLIGRAM ORAL DAILY. APIXABAN (ELIQUIS) 5 MG TAB 5 MILLIGRAM ORAL TWICE DAILY. ESOMEPRAZOLE MAG DR (NexIUM) 40 MG CAP.DR 40 MILLIGRAM ORAL DAILY. traMADol (ULTRAM) 50 MG TAB 50 MILLIGRAM ORAL EVERY 6 HOURS. Start taking the following new medications: ONDANSETRON (ZOFRAN) 4 MG TAB 4 MILLIGRAM ORAL EVERY 8 HR NEEDED. as neede d for Nausea/Vomiting Qty = 20 No Refills Comments: Hospital discharge med SUCRALFATE (CARAFATE) 1 GM TAB 1 GRAM ORAL EVERY 6 HOURS NEEDED. as needed for Abdominal pain Qty = 20 No Refills Instructions: Take 1 hour before eating Comments: Hospital discharge med Discharge Instructions Diet: bland, full liquid Activity: Advance diet slowly, start with liquid s and bland foods. Return to work/school: Yes Date to return: 07/23/18 Restrictions upon return: No Follow-up Appointments PCP: PCP: No Primary or Family Physician Attending Physician: Attending Physician: Kaiden Nicolas MD Electronically Signed by Seda Quinones MD on 0 07/22/18 at 8[address] [facility] #:[id number] END OF REPORT 2018-07-22 [facility] 05:35:00-00:00 [facility] Progress Note REPORT#:[id number] REPORT STATUS: Signed DATE:07/22/18 TIME: 05 PATIENT: JEOVANY BUCKLEY UNIT #: [id number] ROOM/BED: [address] : 69 AGE: 52 SEX: M ATTEND: Norma Nicolas MD ADM AUTHOR: Raven Fajardo MD R1 * ALL edits or amendments must be made on the [employer]/computer document * Subjective Chief Complaint: L flank pain, abdominal pain HPI: Patient seen resting in bed. L flank and abdomin al pain not improved. Patient continues to complain of nausea. Review of Systems Constitutional: Denies: chills, fatigue, fever. Respiratory: Denies: ANGULO (dyspnea on exertion), SOB, wheezing . Cardiovascular: Denies: chest pain, edema, orthopnea, palpitatio ns. GI: Reports: abdominal pain, constipation, nausea. D enies: diarrhea, melena, vomiting. : Reports: flank pain, hematuria. Denies: urgency, urinary retention. Musculoskeletal: Denies: lumbar pain, myalgias. Objective Physical Exam VS/I O: 24 hour I O ending at 0700: 07/22 0700 07/21 1900 Intake Total 375.00 Output Total 800 Balance -425.00 Intake, IV 375.00 Output, Emesis Output, Urine 800 Patient 84.091 kg Weight Weight Bed scale Measurement Method Vital Signs: Date Time Temp Pulse Resp B/P B/P Pulse O2 O2 F low FiO2 Mean Ox Delivery Rate 07/22 0231 97.9 70 18 139/86 103.7 97 07/21 2354 98.1 72 16 134/87 102.7 98 07/21 2135 97.9 77 16 125/83 97 98 07/21 1846 76 16 134/76 95 99 07/21 1742 92 16 130/74 92 98 07/21 1644 98.6 104 18 135/81 99 98 Room air Medications: Active Meds + DC'd Last 24 Hrs Trazodone HCl 100 MG BEDTIME PO Buspirone HCl 15 MG DAILY PO Citalopram Hydrobromide 40 MG DAILY PO Nicotine 14 MG DAILY TRANSDERM Quetiapine Fumarate 400 MG DAILY PO Pantoprazole 40 MG AC BK PO Tramadol HCl 50 MG Q6H PRN PRN PO Acetaminophen 650 MG Q4H PRN PRN PO Acetaminophen 650 MG Q4H PRN PRN PO Apixaban 5 MG BID PO Dextrose/Sodium Chloride 1,000 ML .Q8H IV Docusate Sodium 100 MG BID PRN PRN PO Hydralazine HCl 10 MG Q4H PRN PRN IV Promethazine HCl 25 MG Q6H PRN PRN IV Sodium Chloride 250 ML ASDIR PRN IV Morphine Sulfate 4 MG Q6H PRN PRN IV (DC) Diatrizoate Meglum/Diatrizoate Sod [address] A PO (DC) Hydrocodone Bitart/Acetaminophen 1 TAB X1ED STA PO (DC) Morphine Sulfate 4 MG X1ED STA IV (DC) Ondansetron HCl 4 MG X1ED STA IV (DC) General appearance: alert, awake, conversational , mental status normal Cardiovascular: normal heart sounds, normal S1/S 2, regular rate rhythm Respiratory: aerating well, clear to auscultatio n, no distress Abdomen: normal bowel sounds, soft, no distentio n, no guarding, no rebound, mildly tender to palpation in lower quadrants Results Findings/Data: Laboratory Tests 07/21 1705 Chemistry Sodium (133 - 144 mmol/L) 137.0 Potassium (3.5 - 5.1 mmol/L) 3.6 Chloride (95 - 105 mmol/L) 107 H Carbon Dioxide (21 - 32 mmol/L) 23 Anion Gap (4.0 - 15.0 GAP calc) 7.0 BUN (7 - 18 MG/DL) 15 Creatinine (0.55 - 1.30 MG/DL) 2.22 H Glomerular Filtr Rate (>60 estGFR) 32 L Glucose (70 - 110 MG/DL) 87 Calcium (8.5 - 10.1 MG/DL) 8.4 L Total Bilirubin (0.00 - 1.00 MG/DL) 0.23 Direct Bilirubin (0.00 - 0.30 MG/DL) < 0.10 Indirect Bilirubin (0.2 - 1.3 MG/DL) 0.23 AST (15 - 37 Unit/L) 19 ALT (12 - 78 Unit/L) 23 Total Alk Phosphatase (45 - 117 Unit/L) 146 H Troponin I (0.000 - 0.045 NG/ML) < 0.015 Total Protein (6.4 - 8.2 G/DL) 7.4 Albumin (3.4 - 5.0 G/DL) 3.7 Albumin/Globulin Ratio (1.2 - 2.2 RATIO) 1.0 L Lipase (114 - 286 Unit/L) 121 Specimen Appearance (1 NORMAL Index/DL) 1 AALIYAH L <2 MG Specimen Hemolysis (1 NORMAL Index/DL) 1 NORMAL <10 MG Laboratory Tests 07/21 1705 Hematology WBC (4.1 - 12.1 K/mm3) 8.8 RBC (3.8 - 5.5 M/mm3) 4.49 Hgb (10.6 - 15.8 G/DL) 12.6 Hct (36.0 - 47.4 %) 39.0 MCV (80.1 - 101.1 fL) 86.9 MCH (25.3 - 35.3 pg) 28.1 MCHC (32.7 - 35.1 G/DL) 32.3 L RDW (12.2 - 16.4 %) 14.5 Plt Count (155 - 337 K/mm3) 203 MPV (7.6 - 10.4 fL) 9.7 Gran % (37.8 - 82.6 %) 49.7 Lymph % (Auto) (14.1 - 45.4 %) 40.8 [place] % (Auto) (2.5 - 11.7 %) 6.0 Eos % (Auto) (0.0 - 6.2 %) 3.1 Baso % (Auto) (0.0 - 2.6 %) 0.2 Gran # (2.0 - 13.7 k/mm3) 4.39 Lymph # (Auto) (0.6 - 3.8 K/mm3) 3.60 [place] # (Auto) (0.11 - 0.59 K/mm3) 0.53 Eos # (Auto) (0.0 - 0.4 K/mm3) 0.27 Baso # (Auto) (0.0 - 0.1 K/mm3) 0.02 Immature Gran % (0.0 - 2.0 %) 0.2 Nucleated RBC % (0.0 - 1.0 /100WBC%) 0.0 Nucleated RBCs # (0.00 - 0.05 K/mm3) 0.00 Laboratory Tests 07/22 0200 Urines Urine Color (YELLOW DESCRIPT) COLORLESS Urine Appearance (CLEAR DESCRIPT) CLEAR Urine pH (4.6 - 8.0 pH UNITS) 6.0 Ur Specific [place] (1.001 - 1.035 SG) 1.002 Urine Protein (<30 (1+) mg/dL) NEGATIVE (0) Urine Glucose (UA) ((NEG) 0 mg/dL) NEGATIVE (0) Urine Ketones ((NEG) 0 mg/dL) 0 (NEG) Urine Blood ((NEG) 0 mg/DL) NEGATIVE (0) Urine Nitrite (NEG SCREEN) NEGATIVE (0) Urine Bilirubin ((NEG) 0 mg/dL) NEGATIVE (0) Urine Urobilinogen (<2.0 (1+) mg/dL) NORMAL (0) Ur Leukocyte Esterase ((NEG) 0 Leuk/mcL) NEGATI VE (0) Urine RBC (0 - 3 #RBC/HPF) NONE Urine WBC (0 - 3 #WBC/HPF) 0-3 Diagnosis, Assessment Plan Hospital course to date: 52M with PMH of Bipolar, Goshen's, CKD3b, hx of DVT, hx of kidney stones presents with 6 day hx of L flank pain r adiating down towards the front across the lower abdomen. Admitted for intractable flan k/abdominal pain. On arrival, patient was afebrile, BP125/83, P77, R16, 98%RA. A CT without contrast read as viral enterocolitis versus ileu s with mildly fluid-filled distention of small bowel loops and R colon, Mil d renal atrophy-no stones documented. UA was normal, showing no signs of i nfection. Patient was kept on NPO for bowel rest, mIVFs D5 1/2NS @ 125cc/hr, a nd Tramadol given for pain control. Patient's comorbities include Bipolar/Hu ntington (continued on home Quetapine, Buspar, Lexapro, Trazadone), CKD3 (stable Cr on admission 2.22 with home Lisinopril held), hx of DVT (continued on home Eliquis 5 bid), and tobacco use ( given nicotine patch). Problem List/A P: 1. Intractable abdominal pain 2. Left flank pain Free Text A P: 52M with PMH of Bipolar, Goshen's, CKD3b, hx of DVT, hx of kidney stones presents with 6 day hx of L flank pain r adiating down towards the front across the lower abdomen. Admitted for intractable flan k/abdominal pain. 1. Flank/Abdominal Pain -afebrile, BP139/89, P70, R18, 97%RA -CT without contrast: viral enterocolitis versus ileus with mildly fluid-filled distention of small bowel loops and R colon, Mil d renal atrophy -UA wnl-no signs of infection -treatment: NPO for bowel rest, mIVFs D5 1/2NS @ 125cc/hr, pain control with home Tramadol 50 q6h prn dispo: keep NPO, monitor cli nical improvement, consider surgery consult if pain continues to not improve Electronically Signed by Raven Fajardo MD R1 on 12/31 at 0552 RPT #:[id number] END OF REPORT 2018-07-22 [facility] 05:35:00-00:00 [facility] Progress Note REPORT#:[id number] REPORT STATUS: Signed DATE:07/22/18 TIME: 05 PATIENT: JEOVANY BUCKLEY UNIT #: [id number] ROOM/BED: [address] : 69 AGE: 52 SEX: M ATTEND: Norma Nicolas MD ADM AUTHOR: Raven Fajardo MD R1 * ALL edits or amendments must be made on the [employer]/computer document * Raven Fajardo 07/22/18 0535: Subjective Chief Complaint: L flank pain, abdominal pain HPI: Patient seen resting in bed. L flank and abdomin al pain not improved. Patient continues to complain of nausea. Review of Systems Constitutional: Denies: chills, fatigue, fever. Respiratory: Denies: ANGULO (dyspnea on exertion), SOB, wheezing . Cardiovascular: Denies: chest pain, edema, orthopnea, palpitatio ns. GI: Reports: abdominal pain, constipation, nausea. D enies: diarrhea, melena, vomiting. : Reports: flank pain, hematuria. Denies: urgency, urinary retention. Musculoskeletal: Denies: lumbar pain, myalgias. Objective Physical Exam VS/I O: 24 hour I O ending at 0700: 07/22 0700 07/21 1900 Intake Total 375.00 Output Total 800 Balance -425.00 Intake, IV 375.00 Output, Emesis Output, Urine 800 Patient 84.091 kg Weight Weight Bed scale Measurement Method Vital Signs: Date Time Temp Pulse Resp B/P B/P Pulse O2 O2 F low FiO2 Mean Ox Delivery Rate 07/22 0231 97.9 70 18 139/86 103.7 97 07/21 2354 98.1 72 16 134/87 102.7 98 07/21 2135 97.9 77 16 125/83 97 98 07/21 1846 76 16 134/76 95 99 07/21 1742 92 16 130/74 92 98 07/21 1644 98.6 104 18 135/81 99 98 Room air Medications: Active Meds + DC'd Last 24 Hrs Trazodone HCl 100 MG BEDTIME PO Buspirone HCl 15 MG DAILY PO Citalopram Hydrobromide 40 MG DAILY PO Nicotine 14 MG DAILY TRANSDERM Quetiapine Fumarate 400 MG DAILY PO Pantoprazole 40 MG AC BK PO Tramadol HCl 50 MG Q6H PRN PRN PO Acetaminophen 650 MG Q4H PRN PRN PO Acetaminophen 650 MG Q4H PRN PRN PO Apixaban 5 MG BID PO Dextrose/Sodium Chloride 1,000 ML .Q8H IV Docusate Sodium 100 MG BID PRN PRN PO Hydralazine HCl 10 MG Q4H PRN PRN IV Promethazine HCl 25 MG Q6H PRN PRN IV Sodium Chloride 250 ML ASDIR PRN IV Morphine Sulfate 4 MG Q6H PRN PRN IV (DC) Diatrizoate Meglum/Diatrizoate Sod [address] A PO (DC) Hydrocodone Bitart/Acetaminophen 1 TAB X1ED STA PO (DC) Morphine Sulfate 4 MG X1ED STA IV (DC) Ondansetron HCl 4 MG X1ED STA IV (DC) General appearance: alert, awake, conversational , mental status normal Cardiovascular: normal heart sounds, normal S1/S 2, regular rate rhythm Respiratory: aerating well, clear to auscultatio n, no distress Abdomen: normal bowel sounds, soft, no distentio n, no guarding, no rebound, mildly tender to palpation in lower quadrants Results Findings/Data: Laboratory Tests 07/21 1704 Chemistry Sodium (133 - 144 mmol/L) 137.0 Potassium (3.5 - 5.1 mmol/L) 3.6 Chloride (95 - 105 mmol/L) 107 H Carbon Dioxide (21 - 32 mmol/L) 23 Anion Gap (4.0 - 15.0 GAP calc) 7.0 BUN (7 - 18 MG/DL) 15 Creatinine (0.55 - 1.30 MG/DL) 2.22 H Glomerular Filtr Rate (>60 estGFR) 32 L Glucose (70 - 110 MG/DL) 87 Calcium (8.5 - 10.1 MG/DL) 8.4 L Total Bilirubin (0.00 - 1.00 MG/DL) 0.23 Direct Bilirubin (0.00 - 0.30 MG/DL) < 0.10 Indirect Bilirubin (0.2 - 1.3 MG/DL) 0.23 AST (15 - 37 Unit/L) 19 ALT (12 - 78 Unit/L) 23 Total Alk Phosphatase (45 - 117 Unit/L) 146 H Troponin I (0.000 - 0.045 NG/ML) < 0.015 Total Protein (6.4 - 8.2 G/DL) 7.4 Albumin (3.4 - 5.0 G/DL) 3.7 Albumin/Globulin Ratio (1.2 - 2.2 RATIO) 1.0 L Lipase (114 - 286 Unit/L) 121 Specimen Appearance (1 NORMAL Index/DL) 1 AALIYAH L <2 MG Specimen Hemolysis (1 NORMAL Index/DL) 1 NORMAL <10 MG Laboratory Tests 07/21 1704 Hematology WBC (4.1 - 12.1 K/mm3) 8.8 RBC (3.8 - 5.5 M/mm3) 4.49 Hgb (10.6 - 15.8 G/DL) 12.6 Hct (36.0 - 47.4 %) 39.0 MCV (80.1 - 101.1 fL) 86.9 MCH (25.3 - 35.3 pg) 28.1 MCHC (32.7 - 35.1 G/DL) 32.3 L RDW (12.2 - 16.4 %) 14.5 Plt Count (155 - 337 K/mm3) 203 MPV (7.6 - 10.4 fL) 9.7 Gran % (37.8 - 82.6 %) 49.7 Lymph % (Auto) (14.1 - 45.4 %) 40.8 [place] % (Auto) (2.5 - 11.7 %) 6.0 Eos % (Auto) (0.0 - 6.2 %) 3.1 Baso % (Auto) (0.0 - 2.6 %) 0.2 Gran # (2.0 - 13.7 k/mm3) 4.39 Lymph # (Auto) (0.6 - 3.8 K/mm3) 3.60 [place] # (Auto) (0.11 - 0.59 K/mm3) 0.53 Eos # (Auto) (0.0 - 0.4 K/mm3) 0.27 Baso # (Auto) (0.0 - 0.1 K/mm3) 0.02 Immature Gran % (0.0 - 2.0 %) 0.2 Nucleated RBC % (0.0 - 1.0 /100WBC%) 0.0 Nucleated RBCs # (0.00 - 0.05 K/mm3) 0.00 Laboratory Tests 07/22 0200 Urines Urine Color (YELLOW DESCRIPT) COLORLESS Urine Appearance (CLEAR DESCRIPT) CLEAR Urine pH (4.6 - 8.0 pH UNITS) 6.0 Ur Specific [place] (1.001 - 1.035 SG) 1.002 Urine Protein (<30 (1+) mg/dL) NEGATIVE (0) Urine Glucose (UA) ((NEG) 0 mg/dL) NEGATIVE (0) Urine Ketones ((NEG) 0 mg/dL) 0 (NEG) Urine Blood ((NEG) 0 mg/DL) NEGATIVE (0) Urine Nitrite (NEG SCREEN) NEGATIVE (0) Urine Bilirubin ((NEG) 0 mg/dL) NEGATIVE (0) Urine Urobilinogen (<2.0 (1+) mg/dL) NORMAL (0) Ur Leukocyte Esterase ((NEG) 0 Leuk/mcL) NEGATI VE (0) Urine RBC (0 - 3 #RBC/HPF) NONE Urine WBC (0 - 3 #WBC/HPF) 0-3 Diagnosis, Assessment Plan Hospital course to date: 52M with PMH of Bipolar, Goshen's, CKD3b, hx of DVT, hx of kidney stones presents with 6 day hx of L flank pain r adiating down towards the front across the lower abdomen. Admitted for intractable flan k/abdominal pain. On arrival, patient was afebrile, BP125/83, P77, R16, 98%RA. A CT without contrast read as viral enterocolitis versus ileu s with mildly fluid-filled distention of small bowel loops and R colon, Mil d renal atrophy-no stones documented. UA was normal, showing no signs of i nfection. Patient was kept on NPO for bowel rest, mIVFs D5 1/2NS @ 125cc/hr, a nd Tramadol given for pain control. Patient's comorbities include Bipolar/Hu ntington (continued on home Quetapine, Buspar, Lexapro, Trazadone), CKD3 (stable Cr on admission 2.22 with home Lisinopril held), hx of DVT (continued on home Eliquis 5 bid), and tobacco use ( given nicotine patch). Problem List/A P: 1. Intractable abdominal pain 2. Left flank pain Free Text A P: 52M with PMH of Bipolar, Goshen's, CKD3b, hx of DVT, hx of kidney stones presents with 6 day hx of L flank pain r adiating down towards the front across the lower abdomen. Admitted for intractable flan k/abdominal pain. 1. Flank/Abdominal Pain -afebrile, BP139/89, P70, R18, 97%RA -CT without contrast: viral enterocolitis versus ileus with mildly fluid-filled distention of small bowel loops and R colon, Mil d renal atrophy -UA wnl-no signs of infection -treatment: NPO for bowel rest, mIVFs D5 1/2NS @ 125cc/hr, pain control with home Tramadol 50 q6h prn dispo: keep NPO, monitor cli nical improvement, consider surgery consult if pain continues to not improve Kaiden Nicolas 07/22/18 1241: Diagnosis, Assessment Plan Additional comments: Late entry note: Pertinent histories and examina tion findings, labs/imaging reports were reviewed with t kasi resident physician on my rounds earlier today. I saw the patient in person. I agree with assessme nt and plan as above. Monitor for improvement and advance diet as tolerated. Electronically Signed by Raven Fajardo MD R1 on 12/31 at 9524 RPT #:[id number] END OF REPORT 2018-07-22 [facility] 05:35:00-00:00 [facility] ([facility] Progress Note REPORT#:[id number] REPORT STATUS: Signed DATE:07/22/18 TIME: 05 PATIENT: JEOVANY BUCKLEY UNIT #: [id number] ROOM/BED: [address] : 69 AGE: 52 SEX: M ATTEND: Norma Nicolas MD ADM AUTHOR: Raven Fajardo MD R1 * ALL edits or amendments must be made on the [employer]/computer document * Raven Fajardo 07/22/18 0535: Subjective Chief Complaint: L flank pain, abdominal pain HPI: Patient seen resting in bed. L flank and abdomin al pain not improved. Patient continues to complain of nausea. Review of Systems Constitutional: Denies: chills, fatigue, fever. Respiratory: Denies: ANGULO (dyspnea on exertion), SOB, wheezing . Cardiovascular: Denies: chest pain, edema, orthopnea, palpitatio ns. GI: Reports: abdominal pain, constipation, nausea. D enies: diarrhea, melena, vomiting. : Reports: flank pain, hematuria. Denies: urgency, urinary retention. Musculoskeletal: Denies: lumbar pain, myalgias. Objective Physical Exam VS/I O: 24 hour I O ending at 0700: 07/22 0700 07/21 1900 Intake Total 375.00 Output Total 800 Balance -425.00 Intake, IV 375.00 Output, Emesis Output, Urine 800 Patient 84.091 kg Weight Weight Bed scale Measurement Method Vital Signs: Date Time Temp Pulse Resp B/P B/P Pulse O2 O2 F low FiO2 Mean Ox Delivery Rate 07/22 0231 97.9 70 18 139/86 103.7 97 07/21 2354 98.1 72 16 134/87 102.7 98 07/21 2135 97.9 77 16 125/83 97 98 07/21 1846 76 16 134/76 95 99 07/21 1742 92 16 130/74 92 98 07/21 1644 98.6 104 18 135/81 99 98 Room air Medications: Active Meds + DC'd Last 24 Hrs Trazodone HCl 100 MG BEDTIME PO Buspirone HCl 15 MG DAILY PO Citalopram Hydrobromide 40 MG DAILY PO Nicotine 14 MG DAILY TRANSDERM Quetiapine Fumarate 400 MG DAILY PO Pantoprazole 40 MG AC BK PO Tramadol HCl 50 MG Q6H PRN PRN PO Acetaminophen 650 MG Q4H PRN PRN PO Acetaminophen 650 MG Q4H PRN PRN PO Apixaban 5 MG BID PO Dextrose/Sodium Chloride 1,000 ML .Q8H IV Docusate Sodium 100 MG BID PRN PRN PO Hydralazine HCl 10 MG Q4H PRN PRN IV Promethazine HCl 25 MG Q6H PRN PRN IV Sodium Chloride 250 ML ASDIR PRN IV Morphine Sulfate 4 MG Q6H PRN PRN IV (DC) Diatrizoate Meglum/Diatrizoate Sod [address] A PO (DC) Hydrocodone Bitart/Acetaminophen 1 TAB X1ED STA PO (DC) Morphine Sulfate 4 MG X1ED STA IV (DC) Ondansetron HCl 4 MG X1ED STA IV (DC) General appearance: alert, awake, conversational , mental status normal Cardiovascular: normal heart sounds, normal S1/S 2, regular rate rhythm Respiratory: aerating well, clear to auscultatio n, no distress Abdomen: normal bowel sounds, soft, no distentio n, no guarding, no rebound, mildly tender to palpation in lower quadrants Results Findings/Data: Laboratory Tests 07/21 1705 Chemistry Sodium (133 - 144 mmol/L) 137.0 Potassium (3.5 - 5.1 mmol/L) 3.6 Chloride (95 - 105 mmol/L) 107 H Carbon Dioxide (21 - 32 mmol/L) 23 Anion Gap (4.0 - 15.0 GAP calc) 7.0 BUN (7 - 18 MG/DL) 15 Creatinine (0.55 - 1.30 MG/DL) 2.22 H Glomerular Filtr Rate (>60 estGFR) 32 L Glucose (70 - 110 MG/DL) 87 Calcium (8.5 - 10.1 MG/DL) 8.4 L Total Bilirubin (0.00 - 1.00 MG/DL) 0.23 Direct Bilirubin (0.00 - 0.30 MG/DL) < 0.10 Indirect Bilirubin (0.2 - 1.3 MG/DL) 0.23 AST (15 - 37 Unit/L) 19 ALT (12 - 78 Unit/L) 23 Total Alk Phosphatase (45 - 117 Unit/L) 146 H Troponin I (0.000 - 0.045 NG/ML) < 0.015 Total Protein (6.4 - 8.2 G/DL) 7.4 Albumin (3.4 - 5.0 G/DL) 3.7 Albumin/Globulin Ratio (1.2 - 2.2 RATIO) 1.0 L Lipase (114 - 286 Unit/L) 121 Specimen Appearance (1 NORMAL Index/DL) 1 AALIYAH L <2 MG Specimen Hemolysis (1 NORMAL Index/DL) 1 NORMAL <10 MG Laboratory Tests 07/21 1705 Hematology WBC (4.1 - 12.1 K/mm3) 8.8 RBC (3.8 - 5.5 M/mm3) 4.49 Hgb (10.6 - 15.8 G/DL) 12.6 Hct (36.0 - 47.4 %) 39.0 MCV (80.1 - 101.1 fL) 86.9 MCH (25.3 - 35.3 pg) 28.1 MCHC (32.7 - 35.1 G/DL) 32.3 L RDW (12.2 - 16.4 %) 14.5 Plt Count (155 - 337 K/mm3) 203 MPV (7.6 - 10.4 fL) 9.7 Gran % (37.8 - 82.6 %) 49.7 Lymph % (Auto) (14.1 - 45.4 %) 40.8 [place] % (Auto) (2.5 - 11.7 %) 6.0 Eos % (Auto) (0.0 - 6.2 %) 3.1 Baso % (Auto) (0.0 - 2.6 %) 0.2 Gran # (2.0 - 13.7 k/mm3) 4.39 Lymph # (Auto) (0.6 - 3.8 K/mm3) 3.60 [place] # (Auto) (0.11 - 0.59 K/mm3) 0.53 Eos # (Auto) (0.0 - 0.4 K/mm3) 0.27 Baso # (Auto) (0.0 - 0.1 K/mm3) 0.02 Immature Gran % (0.0 - 2.0 %) 0.2 Nucleated RBC % (0.0 - 1.0 /100WBC%) 0.0 Nucleated RBCs # (0.00 - 0.05 K/mm3) 0.00 Laboratory Tests 07/22 0200 Urines Urine Color (YELLOW DESCRIPT) COLORLESS Urine Appearance (CLEAR DESCRIPT) CLEAR Urine pH (4.6 - 8.0 pH UNITS) 6.0 Ur Specific [place] (1.001 - 1.035 SG) 1.002 Urine Protein (<30 (1+) mg/dL) NEGATIVE (0) Urine Glucose (UA) ((NEG) 0 mg/dL) NEGATIVE (0) Urine Ketones ((NEG) 0 mg/dL) 0 (NEG) Urine Blood ((NEG) 0 mg/DL) NEGATIVE (0) Urine Nitrite (NEG SCREEN) NEGATIVE (0) Urine Bilirubin ((NEG) 0 mg/dL) NEGATIVE (0) Urine Urobilinogen (<2.0 (1+) mg/dL) NORMAL (0) Ur Leukocyte Esterase ((NEG) 0 Leuk/mcL) NEGATI VE (0) Urine RBC (0 - 3 #RBC/HPF) NONE Urine WBC (0 - 3 #WBC/HPF) 0-3 Diagnosis, Assessment Plan Hospital course to date: 52M with PMH of Bipolar, Goshen's, CKD3b, hx of DVT, hx of kidney stones presents with 6 day hx of L flank pain r adiating down towards the front across the lower abdomen. Admitted for intractable flan k/abdominal pain. On arrival, patient was afebrile, BP125/83, P77, R16, 98%RA. A CT without contrast read as viral enterocolitis versus ileu s with mildly fluid-filled distention of small bowel loops and R colon, Mil d renal atrophy-no stones documented. UA was normal, showing no signs of i nfection. Patient was kept on NPO for bowel rest, mIVFs D5 1/2NS @ 125cc/hr, a nd Tramadol given for pain control. Patient's comorbities include Bipolar/Hu ntington (continued on home Quetapine, Buspar, Lexapro, Trazadone), CKD3 (stable Cr on admission 2.22 with home Lisinopril held), hx of DVT (continued on home Eliquis 5 bid), and tobacco use ( given nicotine patch). Problem List/A P: 1. Intractable abdominal pain 2. Left flank pain Free Text A P: 52M with PMH of Bipolar, [place]'s, CKD3b, hx of DVT, hx of kidney stones presents with 6 day hx of L flank pain r adiating down towards the front across the lower abdomen. Admitted for intractable flan k/abdominal pain. 1. Flank/Abdominal Pain -afebrile, BP139/89, P70, R18, 97%RA -CT without contrast: viral enterocolitis versus ileus with mildly fluid-filled distention of small bowel loops and R colon, Mil d renal atrophy -UA wnl-no signs of infection -treatment: NPO for bowel rest, mIVFs D5 1/2NS @ 125cc/hr, pain control with home Tramadol 50 q6h prn dispo: keep NPO, monitor cli nical improvement, consider surgery consult if pain continues to not improve Kaiden Nicolas 07/22/18 1241: Diagnosis, Assessment Plan Additional comments: Late entry note: Pertinent histories and examina tion findings, labs/imaging reports were reviewed with enio villaseñor resident physician on my rounds earlier today. I saw the patient in person. I agree with assessme nt and plan as above. Monitor for improvement and advance diet as tolerated. Electronically Signed by Raven Fajardo MD R1 on 12/31 at 0552 Electronically Signed by Kaiden Nicolas MD on at 1246 RPT #:[id number] END OF REPORT 2018-07-21 [facility] 21:33:00-00:00 [facility] ([facility]) History Physical - Adult REPORT#:[id number] REPORT STATUS: Signed DATE:07/21/18 TIME: 2132 PATIENT: JEOVANY BUCKLEY UNIT #: [id number] ROOM/BED: [address] : [birth year] AGE: 52 SEX: M ATTEND: Norma Nicolas MD ADM AUTHOR: Raven Fajardo MD R1 * ALL edits or amendments must be made on the [employer]/computer document * History of Present Illness HPI Chief complaint: R flank and abdominal pain HPI: 52M with PMH of Bipolar, Goshen's, CKD3b, hx of DVT, hx of kidney stones presents with 6 day hx of L flank pain r adiating down towards the front across the lower abdomen. Pain is described as dull ach e that comes and goes and gradually worsening. Associated with [place] , nausea, and vomiting. Patient states that he's been unable to keep any food down for the past 4 days. Additionally patient's fiance states that he's been having bl ood in his urine. Denies fevers, constipation, diarrhea, s training to urinate, dysuria, CP, SOB. Informant/historian: patient, family/other at be dside History Past medical history: Reports: Kidney disease/stones. Additional medical history: Bipolar disorder, CKD Additional surgical history: None Additional family history: None Alcohol use: Denies EtOH use Drug use: Denies recreational drugs Smoking status for patients 13 years old or olde r: Current every day smoker Other social history: Homeless Medication/Allergy-Vaccine Hx Allergies: Coded Allergies: Penicillins (UNKNOWN 07/21/18) Sulfa (Sulfonamide Antibiotics) (UNKNOWN 9) Review of Systems Constitutional: Denies: chills, fever. Respiratory: Denies: ANGULO (dyspnea on exertion), non productiv e cough, SOB, wheezing. Cardiovascular: Denies: chest pain, edema, orthopnea, palpitatio ns. GI: Reports: abdominal pain, anorexia, nausea, vomit ing. Denies: diarrhea, dysphagia, GERD, hematemesis, melena. : Reports: flank pain, hematuria. Denies: dysuria, frequency, urgency. Musculoskeletal: Denies: extremity pain, extremity swelling. Neuro: Reports: headache. Denies: dizziness, vision marky nge. Physical Exam VS/I O Vital Signs: Date Time Temp Pulse Resp B/P B/P Pulse O2 O2 F low FiO2 Mean Ox Delivery Rate 07/21 2135 97.9 77 16 125/83 97 98 07/21 1846 76 16 134/76 95 99 07/21 1742 92 16 130/74 92 98 07/21 1644 98.6 104 18 135/81 99 98 Room air General appearance: alert, awake, oriented, no a cute distress, pleasant, conversational, mental status normal, no respira tory distress Head/Eyes: atraumatic ENT: moist mucosal membranes Neck: full range of motion, non-tender Cardiovascular: normal capillary refill, regular rate rhythm, normal heart sounds Respiratory: clear to auscultation, no distress, no tenderness Abdomen/GI: active bowel sounds, soft, no guardi ng, no rebound Abdomen quadrants: LLQ normal bowel sounds, LLQ tenderness, LUQ nor mal bowel sounds, RLQ normal bowel sounds, RLQ tenderness, RUQ normal bowel s ounds Extremities: moves all, no edema-all extremities Musculoskeletal: CVA tendern ess (left), full range of motion, normal inspection Neuro/SOIL BIOLOGY TEACHER: alert, oriented X 3 Results Findings/Data: Laboratory Tests: 07/21 1705 Chemistry Sodium (133 - 144 mmol/L) 137.0 Potassium (3.5 - 5.1 mmol/L) 3.6 Chloride (95 - 105 mmol/L) 107 H Carbon Dioxide (21 - 32 mmol/L) 23 Anion Gap (4.0 - 15.0 GAP calc) 7.0 BUN (7 - 18 MG/DL) 15 Creatinine (0.55 - 1.30 MG/DL) 2.22 H Glomerular Filtr Rate (>60 estGFR) 32 L Glucose (70 - 110 MG/DL) 87 Calcium (8.5 - 10.1 MG/DL) 8.4 L Total Bilirubin (0.00 - 1.00 MG/DL) 0.23 Direct Bilirubin (0.00 - 0.30 MG/DL) < 0.10 Indirect Bilirubin (0.2 - 1.3 MG/DL) 0.23 AST (15 - 37 Unit/L) 19 ALT (12 - 78 Unit/L) 23 Total Alk Phosphatase (45 - 117 Unit/L) 146 H Troponin I (0.000 - 0.045 NG/ML) < 0.015 Total Protein (6.4 - 8.2 G/DL) 7.4 Albumin (3.4 - 5.0 G/DL) 3.7 Albumin/Globulin Ratio (1.2 - 2.2 RATIO) 1.0 L Lipase (114 - 286 Unit/L) 121 Specimen Appearance (1 NORMAL Index/DL) 1 AALIYAH L <2 MG Specimen Hemolysis (1 NORMAL Index/DL) 1 NORMAL <10 MG Hematology WBC (4.1 - 12.1 K/mm3) 8.8 RBC (3.8 - 5.5 M/mm3) 4.49 Hgb (10.6 - 15.8 G/DL) 12.6 Hct (36.0 - 47.4 %) 39.0 MCV (80.1 - 101.1 fL) 86.9 MCH (25.3 - 35.3 pg) 28.1 MCHC (32.7 - 35.1 G/DL) 32.3 L RDW (12.2 - 16.4 %) 14.5 Plt Count (155 - 337 K/mm3) 203 MPV (7.6 - 10.4 fL) 9.7 Gran % (37.8 - 82.6 %) 49.7 Lymph % (Auto) (14.1 - 45.4 %) 40.8 [place] % (Auto) (2.5 - 11.7 %) 6.0 Eos % (Auto) (0.0 - 6.2 %) 3.1 Baso % (Auto) (0.0 - 2.6 %) 0.2 Gran # (2.0 - 13.7 k/mm3) 4.39 Lymph # (Auto) (0.6 - 3.8 K/mm3) 3.60 [place] # (Auto) (0.11 - 0.59 K/mm3) 0.53 Eos # (Auto) (0.0 - 0.4 K/mm3) 0.27 Baso # (Auto) (0.0 - 0.1 K/mm3) 0.02 Immature Gran % (0.0 - 2.0 %) 0.2 Nucleated RBC % (0.0 - 1.0 /100WBC%) 0.0 Nucleated RBCs # (0.00 - 0.05 K/mm3) 0.00 Radiology data: Recent Impressions: CAT SCAN - CT ABD PELVIS W/O CONT 07/21 1950 Report Impression - Status: SIGNED Entered: 07/21/20182008 IMPRESSION: Findings suggestive of viral enterocolitis versu s ileus with mildly fluid-filled distention of small bowel loops and of the right side of the colon without associated wall thickening Mild renal atrophy Impression By: Radha - Heather abraham M.D. Diagnosis, Assessment Plan Problem List/A P: 1. Intractable abdominal pain 2. Left flank pain Free Text DxA P Notes Free Text DxA P Notes: 52M with PMH of Bipolar, Kaveh's, CKD3b, hx of DVT, hx of kidney stones presents with 6 day hx of L flank pain r adiating down towards the front across the lower abdomen. Admitted for intractable flan k/abdominal pain. 1. Flank/Abdominal Pain -afebrile, BP125/83, P77, R16, 98%RA -CT without contrast: viral enterocolitis versus ileus with mildly fluid-filled distention of small bowel loops and r colon, Mil d renal atrophy -UA pending -NPO -mIVFs D5 1/2NS @ 125cc/hr -pain control: Tramadol 50 q6h prn Comorbities: Bipolar/Goshen's: continue home Quetapine, B uspar, Lexapro, Trazadone CKD3: stable Cr on admission 2.22 (baseline Cr 2.16), holding home Lisinopril, F /U AM labs hx of DVT: continue on home Eliquis 5 bid tobacco use: nicotine patch FEN: mIVFs @ 125, NPO PPX: SCDs and Nexium dispo: F/U UA for infection, keep NPO, monitor c linical improvement Plan discussed with Dr. Jackson Electronically Signed by Raven Fajardo MD R1 on 12/01 at 2344 RPT #:[id number] END OF REPORT 2018-07-21 [facility] 21:33:00-00:00 [facility] ([facility]) History Physical - Adult REPORT#:[id number] REPORT STATUS: Signed DATE:07/21/18 TIME: 2132 PATIENT: JEOVANY BUCKLEY UNIT #: [id number] ROOM/BED: [address] : [birth year] AGE: 52 SEX: M ATTEND: Norma Nicolas MD ADM AUTHOR: Raven Fajardo MD R1 * ALL edits or amendments must be made on the [employer]computer document * Raven Fajardo 07/21/182132: History of Present Illness HPI Chief complaint: R flank and abdominal pain HPI: 52M with PMH of Bipolar, Goshen's, CKD3b, hx of DVT, hx of kidney stones presents with 6 day hx of L flank pain r adiating down towards the front across the lower abdomen. Pain is described as dull ach e that comes and goes and gradually worsening. Associated with [place], nausea, and vomiting. Patient states that he's been unable to keep any food down for the past 4 days. Additionally patient's fiance states that he's been having bl ood in his urine. Denies fevers, constipation, diarrhea, s training to urinate, dysuria, CP, SOB. Informant/historian: patient, family/other at be dside History Past medical history: Reports: Kidney disease/stones. Additional medical history: Bipolar disorder, CKD Additional surgical history: None Additional family history: None Alcohol use: Denies EtOH use Drug use: Denies recreational drugs Smoking status for patients 13 years old or olde r: Current every day smoker Other social history: Homeless Medication/Allergy-Vaccine Hx Allergies: Coded Allergies: Penicillins (UNKNOWN 07/21/18) Sulfa (Sulfonamide Antibiotics) (UNKNOWN 9) Review of Systems Constitutional: Denies: chills, fever. Respiratory: Denies: ANGULO (dyspnea on exertion), non productiv e cough, SOB, wheezing. Cardiovascular: Denies: chest pain, edema, orthopnea, palpitatio ns. GI: Reports: abdominal pain, anorexia, nausea, vomit ing. Denies: diarrhea, dysphagia, GERD, hematemesis, melena. : Reports: flank pain, hematuria. Denies: dysuria, frequency, urgency. Musculoskeletal: Denies: extremity pain, extremity swelling. Neuro: Reports: headache. Denies: dizziness, vision marky nge. Physical Exam VS/I O Vital Signs: Date Time Temp Pulse Resp B/P B/P Pulse O2 O2 F low FiO2 Mean Ox Delivery Rate 07/21 2135 97.9 77 16 125/83 97 98 07/21 1846 76 16 134/76 95 99 07/21 1742 92 16 130/74 92 98 07/21 1644 98.6 104 18 135/81 99 98 Room air General appearance: alert, awake, oriented, no a cute distress, pleasant, conversational, mental status normal, no respira tory distress Head/Eyes: atraumatic ENT: moist mucosal membranes Neck: full range of motion, non-tender Cardiovascular: normal capillary refill, regular rate rhythm, normal heart sounds Respiratory: clear to auscultation, no distress, no tenderness Abdomen/GI: active bowel sounds, soft, no guardi ng, no rebound Abdomen quadrants: LLQ normal bowel sounds, LLQ tenderness, LUQ nor mal bowel sounds, RLQ normal bowel sounds, RLQ tenderness, RUQ normal bowel s ounds Extremities: moves all, no edema-all extremities Musculoskeletal: CVA tendern ess (left), full range of motion, normal inspection Neuro/SOIL BIOLOGY TEACHER: alert, oriented X 3 Results Findings/Data: Laboratory Tests: 07/21 1705 Chemistry Sodium (133 - 144 mmol/L) 137.0 Potassium (3.5 - 5.1 mmol/L) 3.6 Chloride (95 - 105 mmol/L) 107 H Carbon Dioxide (21 - 32 mmol/L) 23 Anion Gap (4.0 - 15.0 GAP calc) 7.0 BUN (7 - 18 MG/DL) 15 Creatinine (0.55 - 1.30 MG/DL) 2.22 H Glomerular Filtr Rate (>60 estGFR) 32 L Glucose (70 - 110 MG/DL) 87 Calcium (8.5 - 10.1 MG/DL) 8.4 L Total Bilirubin (0.00 - 1.00 MG/DL) 0.23 Direct Bilirubin (0.00 - 0.30 MG/DL) < 0.10 Indirect Bilirubin (0.2 - 1.3 MG/DL) 0.23 AST (15 - 37 Unit/L) 19 ALT (12 - 78 Unit/L) 23 Total Alk Phosphatase (45 - 117 Unit/L) 146 H Troponin I (0.000 - 0.045 NG/ML) < 0.015 Total Protein (6.4 - 8.2 G/DL) 7.4 Albumin (3.4 - 5.0 G/DL) 3.7 Albumin/Globulin Ratio (1.2 - 2.2 RATIO) 1.0 L Lipase (114 - 286 Unit/L) 121 Specimen Appearance (1 NORMAL Index/DL) 1 AALIYAH L <2 MG Specimen Hemolysis (1 NORMAL Index/DL) 1 NORMAL <10 MG Hematology WBC (4.1 - 12.1 K/mm3) 8.8 RBC (3.8 - 5.5 M/mm3) 4.49 Hgb (10.6 - 15.8 G/DL) 12.6 Hct (36.0 - 47.4 %) 39.0 MCV (80.1 - 101.1 fL) 86.9 MCH (25.3 - 35.3 pg) 28.1 MCHC (32.7 - 35.1 G/DL) 32.3 L RDW (12.2 - 16.4 %) 14.5 Plt Count (155 - 337 K/mm3) 203 MPV (7.6 - 10.4 fL) 9.7 Gran % (37.8 - 82.6 %) 49.7 Lymph % (Auto) (14.1 - 45.4 %) 40.8 [place] % (Auto) (2.5 - 11.7 %) 6.0 Eos % (Auto) (0.0 - 6.2 %) 3.1 Baso % (Auto) (0.0 - 2.6 %) 0.2 Gran # (2.0 - 13.7 k/mm3) 4.39 Lymph # (Auto) (0.6 - 3.8 K/mm3) 3.60 [place] # (Auto) (0.11 - 0.59 K/mm3) 0.53 Eos # (Auto) (0.0 - 0.4 K/mm3) 0.27 Baso # (Auto) (0.0 - 0.1 K/mm3) 0.02 Immature Gran % (0.0 - 2.0 %) 0.2 Nucleated RBC % (0.0 - 1.0 /100WBC%) 0.0 Nucleated RBCs # (0.00 - 0.05 K/mm3) 0.00 Radiology data: Recent Impressions: CAT SCAN - CT ABD PELVIS W/O CONT 07/21 1949 Report Impression - Status: SIGNED Entered: 07/21/20182008 IMPRESSION: Findings suggestive of viral enterocolitis versu s ileus with mildly fluid-filled distention of small bowel loops and of the right side of the colon without associated wall thickening Mild renal atrophy Impression By: [email or web address] - Heather abraham M.D. Diagnosis, Assessment Plan Problem List/A P: 1. Intractable abdominal pain 2. Left flank pain Free Text DxA P Notes Free Text DxA P Notes: 52M with PMH of Bipolar, Kaveh's, CKD3b, hx of DVT, hx of kidney stones presents with 6 day hx of L flank pain r adiating down towards the front across the lower abdomen. Admitted for intractable flan k/abdominal pain. 1. Flank/Abdominal Pain -afebrile, BP125/83, P77, R16, 98%RA -CT without contrast: viral enterocolitis versus ileus with mildly fluid-filled distention of small bowel loops and r colon, Mil d renal atrophy -UA pending -NPO -mIVFs D5 1/2NS @ 125cc/hr -pain control: Tramadol 50 q6h prn Comorbities: Bipolar/Goshen's: continue home Quetapine, B uspar, Lexapro, Trazadone CKD3: stable Cr on admission 2.22 (baseline Cr 2.16), holding home Lisinopril, F /U AM labs hx of DVT: continue on home Eliquis 5 bid tobacco use: nicotine patch FEN: mIVFs @ 125, NPO PPX: SCDs and Nexium dispo: F/U UA for infection, keep NPO, monitor c linical improvement Plan discussed with Dr. Everardo Mai 07/22/18 0014: Diagnosis, Assessment Plan Free Text DxA P Notes Free Text DxA P Notes: Pt seen independently of Dr. Fajardo. 52M with PMH of Bipolar, Goshen's, CKD3b, hx of DVT, hx of kidney stones admitted for intr actable abdominal and flank pain. Pt reports that it hurts to breathe and th at pain is localized to left flank and radiates to the front of his lower abd . VSS. When first seeing the patient, he was playing games with his fiance on her cell phone and did not appear to be in distress. Mildly tender on exam. no CVA tenderness. No stone seen on CT. Will check UA. NPO overnight for bow el rest for colitis Electronically Signed by Raven Fajardo MD R1 on 12/01 at 1872 at 0018 RPT #:[id number] END OF REPORT 2018-07-21 [facility] 21:33:00-00:00 [facility] ([facility]) History Physical - Adult REPORT#:[id number] REPORT STATUS: Signed DATE:07/21/18 TIME: 2132 PATIENT: JEOVANY BUCKLEY UNIT #: [id number] ROOM/BED: [address] : [birth year] AGE: 52 SEX: M ATTEND: Norma Nicolas MD ADM AUTHOR: Raven Fajardo MD R1 * ALL edits or amendments must be made on the [employer]/computer document * Raven Fajardo 07/21/182132: History of Present Illness HPI Chief complaint: R flank and abdominal pain HPI: 52M with PMH of Bipolar, Goshen's, CKD3b, hx of DVT, hx of kidney stones presents with 6 day hx of L flank pain r adiating down towards the front across the lower abdomen. Pain is described as dull ach e that comes and goes and gradually worsening. Associated with [place], nausea, and vomiting. Patient states that he's been unable to keep any food down for the past 4 days. Additionally patient's fiance states that he's been having bl ood in his urine. Denies fevers, constipation, diarrhea, s training to urinate, dysuria, CP, SOB. Informant/historian: patient, family/other at be dside History Past medical history: Reports: Kidney disease/stones. Additional medical history: Bipolar disorder, CKD Additional surgical history: None Additional family history: None Alcohol use: Denies EtOH use Drug use: Denies recreational drugs Smoking status for patients 13 years old or olde r: Current every day smoker Other social history: Homeless Medication/Allergy-Vaccine Hx Allergies: Coded Allergies: Penicillins (UNKNOWN 07/21/18) Sulfa (Sulfonamide Antibiotics) (UNKNOWN 9) Review of Systems Constitutional: Denies: chills, fever. Respiratory: Denies: ANGULO (dyspnea on exertion), non productiv e cough, SOB, wheezing. Cardiovascular: Denies: chest pain, edema, orthopnea, palpitatio ns. GI: Reports: abdominal pain, anorexia, nausea, vomit ing. Denies: diarrhea, dysphagia, GERD, hematemesis, melena. : Reports: flank pain, hematuria. Denies: dysuria, frequency, urgency. Musculoskeletal: Denies: extremity pain, extremity swelling. Neuro: Reports: headache. Denies: dizziness, vision marky nge. Physical Exam VS/I O Vital Signs: Date Time Temp Pulse Resp B/P B/P Pulse O2 O2 F low FiO2 Mean Ox Delivery Rate 07/215 97.9 77 16 125/83 97 98 07/21 1846 76 16 134/76 95 99 07/21 1742 92 16 130/74 92 98 07/21 1644 98.6 104 18 135/81 99 98 Room air General appearance: alert, awake, oriented, no a cute distress, pleasant, conversational, mental status normal, no respira tory distress Head/Eyes: atraumatic ENT: moist mucosal membranes Neck: full range of motion, non-tender Cardiovascular: normal capillary refill, regular rate rhythm, normal heart sounds Respiratory: clear to auscultation, no distress, no tenderness Abdomen/GI: active bowel sounds, soft, no guardi ng, no rebound Abdomen quadrants: LLQ normal bowel sounds, LLQ tenderness, LUQ nor mal bowel sounds, RLQ normal bowel sounds, RLQ tenderness, RUQ normal bowel s ounds Extremities: moves all, no edema-all extremities Musculoskeletal: CVA tendern ess (left), full range of motion, normal inspection Neuro/SOIL BIOLOGY TEACHER: alert, oriented X 3 Results Findings/Data: Laboratory Tests: 07/21 1705 Chemistry Sodium (133 - 144 mmol/L) 137.0 Potassium (3.5 - 5.1 mmol/L) 3.6 Chloride (95 - 105 mmol/L) 107 H Carbon Dioxide (21 - 32 mmol/L) 23 Anion Gap (4.0 - 15.0 GAP calc) 7.0 BUN (7 - 18 MG/DL) 15 Creatinine (0.55 - 1.30 MG/DL) 2.22 H Glomerular Filtr Rate (>60 estGFR) 32 L Glucose (70 - 110 MG/DL) 87 Calcium (8.5 - 10.1 MG/DL) 8.4 L Total Bilirubin (0.00 - 1.00 MG/DL) 0.23 Direct Bilirubin (0.00 - 0.30 MG/DL) < 0.10 Indirect Bilirubin (0.2 - 1.3 MG/DL) 0.23 AST (15 - 37 Unit/L) 19 ALT (12 - 78 Unit/L) 23 Total Alk Phosphatase (45 - 117 Unit/L) 146 H Troponin I (0.000 - 0.045 NG/ML) < 0.015 Total Protein (6.4 - 8.2 G/DL) 7.4 Albumin (3.4 - 5.0 G/DL) 3.7 Albumin/Globulin Ratio (1.2 - 2.2 RATIO) 1.0 L Lipase (114 - 286 Unit/L) 121 Specimen Appearance (1 NORMAL Index/DL) 1 AALIYAH L <2 MG Specimen Hemolysis (1 NORMAL Index/DL) 1 NORMAL <10 MG Hematology WBC (4.1 - 12.1 K/mm3) 8.8 RBC (3.8 - 5.5 M/mm3) 4.49 Hgb (10.6 - 15.8 G/DL) 12.6 Hct (36.0 - 47.4 %) 39.0 MCV (80.1 - 101.1 fL) 86.9 MCH (25.3 - 35.3 pg) 28.1 MCHC (32.7 - 35.1 G/DL) 32.3 L RDW (12.2 - 16.4 %) 14.5 Plt Count (155 - 337 K/mm3) 203 MPV (7.6 - 10.4 fL) 9.7 Gran % (37.8 - 82.6 %) 49.7 Lymph % (Auto) (14.1 - 45.4 %) 40.8 [place] % (Auto) (2.5 - 11.7 %) 6.0 Eos % (Auto) (0.0 - 6.2 %) 3.1 Baso % (Auto) (0.0 - 2.6 %) 0.2 Gran # (2.0 - 13.7 k/mm3) 4.39 Lymph # (Auto) (0.6 - 3.8 K/mm3) 3.60 [place] # (Auto) (0.11 - 0.59 K/mm3) 0.53 Eos # (Auto) (0.0 - 0.4 K/mm3) 0.27 Baso # (Auto) (0.0 - 0.1 K/mm3) 0.02 Immature Gran % (0.0 - 2.0 %) 0.2 Nucleated RBC % (0.0 - 1.0 /100WBC%) 0.0 Nucleated RBCs # (0.00 - 0.05 K/mm3) 0.00 Radiology data: Recent Impressions: CAT SCAN - CT ABD PELVIS W/O CONT 07/21 1949 Report Impression - Status: SIGNED Entered: 07/21/20182008 IMPRESSION: Findings suggestive of viral enterocolitis versu s ileus with mildly fluid-filled distention of small bowel loops and of the right side of the colon without associated wall thickening Mild renal atrophy Impression By: Radha - Heather abraham M.D. Diagnosis, Assessment Plan Problem List/A P: 1. Intractable abdominal pain 2. Left flank pain Free Text DxA P Notes Free Text DxA P Notes: 52M with PMH of Bipolar, Goshen's, CKD3b, hx of DVT, hx of kidney stones presents with 6 day hx of L flank pain r adiating down towards the front across the lower abdomen. Admitted for intractable flan k/abdominal pain. 1. Flank/Abdominal Pain -afebrile, BP125/83, P77, R16, 98%RA -CT without contrast: viral enterocolitis versus ileus with mildly fluid-filled distention of small bowel loops and r colon, Mil d renal atrophy -UA pending -NPO -mIVFs D5 1/2NS @ 125cc/hr -pain control: Tramadol 50 q6h prn Comorbities: Bipolar/Kaveh's: continue home Quetapine, B uspar, Lexapro, Trazadone CKD3: stable Cr on admission 2.22 (baseline Cr 2.16), holding home Lisinopril, F /U AM labs hx of DVT: continue on home Eliquis 5 bid tobacco use: nicotine patch FEN: mIVFs @ 125, NPO PPX: SCDs and Nexium dispo: F/U UA for infection, keep NPO, monitor c linical improvement Plan discussed with Dr. Everardo Mai 07/22/18 0014: Diagnosis, Assessment Plan Free Text DxA P Notes Free Text DxA P Notes: Pt seen independently of Dr. Fajardo. 52M with PMH of Bipolar, Kaveh's, CKD3b, hx of DVT, hx of kidney stones admitted for intr actable abdominal and flank pain. Pt reports that it hurts to breathe and th at pain is localized to left flank and radiates to the front of his lower abd . VSS. When first seeing the patient, he was playing games with his fiance on her cell phone and did not appear to be in distress. Mildly tender on exam. no CVA tenderness. No stone seen on CT. Will check UA. NPO overnight for bow el rest for colitis Electronically Signed by Raven Fajardo MD R1 on 12/01 at 2344 at 0018 Electronically Signed by Michelle Jackson MD o n 07/26/18 at 0938 RPT #:[id number] END OF REPORT 2018-07-21 [facility] 16:51:00-00:00 [facility] ([facility]) EMERGENCY PROVIDER REPORT REPORT#:[id number] REPORT STATUS: Signed DATE:07/21/18 TIME: 1650 PATIENT: JEOVANY BUCKLEY UNIT #: [id number] ROOM/BED: [address] AGE: 52 SEX: M PCP PHYS: No Primary or Family Ph ysician SERVICE AUTHOR: Paula Mandel NP * ALL edits or amendments must be made on the [employer] document * HPI-Abd Pain M 40 and Over General Confirmed Patient Yes Patient Type New patient Initial Greet Date/Time 07/21/18 1647 Presentation Chief Complaint Abdominal pain Hx Obtained From Patient Sudden in Onset? No Onset Occurred Days ago (6) Symptom Duration Since onset Progression since Onset Gradually worsening Caused by No trauma by history Location Flank left, LEFT FLANK MASS Quality Painful Radiation No: Does not radiate. Severity: Current No pain currently Exacerbated by Palpation Context Recent Healthcare No recent doctor visit, No rec ent hospitalization Free Text HPI Notes Free Text HPI Notes 52 y.o male with pmh of kidn ey disease presents to the er for complaints of left flank pain with palpable mass x 6 days..pt state s no over the counter medications taken for discom fort and states pain is gradually worsened prompting his ER visit.. Patient denie s trauma , chest pain, shortness of breath, nausea, vomiting, diarrhea and fever.. Risk-Abd Pain M 40 and Over )( Abdominal Aortic Aneurysm Risk factors review ed Review of Systems Focused Review of Systems Constitutional Denies: Fever. Respiratory Denies: Cough, non-productive, Cough, productive , Dyspnea on exertion, Hemoptysis, Parox nocturnal dyspnea, Pleuritic p ain, Shortness of breath, Wheezing. Cardiovascular Denies: Chest pain, Dyspnea on exertion, Edema, Orthopnea, Palpitations, Parox nocturnal dyspnea, Syncope. GI Reports: Abdominal pain. Denies: Diarrhea, Nause a, Vomiting. Male Denies: Dysuria, Flank pain, Hematuria, Incontinence, Nocturia, Penile discharge , Penile lesion, Scrotal swe lling, Testicular pain, Testicular swelling, Urinary frequency, Urinary urgency, Urination decreased, Urination increased. Musculoskeletal Denies: Extremity pain, Extremity swelling. Additional Review of Systems Eyes Denies: Eye pain R, Eye pain L, Redness R, Redne ss L. Skin Denies: Rash. Neurologic Denies: Headache. Psychiatric Denies: Homicidal ideation, Suicidal ideation. Past Medical History - Adult Stated Complaint ABDOMINAL PAIN Allergies Coded Allergies: Penicillins (UNKNOWN 06/23/18) Sulfa (Sulfonamide Antibiotics) (UNKNOWN 9) Home Medications Reported Medications QUEtiapine (SEROquel) 400 MG PO DAILY traZODone (DESYREL) 100 MG PO BEDTIME ZOLPIDEM (AMBIEN) 10 MG PO BEDTIME ESCITALOPRAM (LEXAPRO) 20 MG PO BID LISINOPRIL (ZESTRIL) 5 MG PO DAILY busPIRone (BUSPAR) 15 MG PO DAILY APIXABAN (ELIQUIS) 5 MG PO BID ESOMEPRAZOLE MAG DR (NexIUM) 40 MG PO DAILY Past Medical History: Reports: Kidney disease/stones. Additional Medical History Bipolar disorder, CKD Physical Exam Vital Signs Vital Signs First Documented: Result Date Time Pulse Ox 98 07/21 164 B/P 135/81 07/21 164 B/P Mean 99 07/22 1643 O2 Delivery Room air 07/22 1643 Temp 98.6 07/22 1643 Pulse 104 07/22 1643 Resp 18 07/22 1643 Last Documented: Result Date Time Pulse Ox 98 07/21 2134 B/P 125/83 07/21 2134 B/P Mean 97 07/21 2134 Temp 97.9 07/21 2134 Pulse 77 07/21 2134 Resp 16 07/21 2134 O2 Delivery Room air 07/21 1644 Review of Vital Signs Reviewed Focused PE General/Const General/Const Awake, Alert, No acute di stress, Well appearing, Well developed , Well hydrated, Well nourished, Cooperative, No t toxic appearing MS Head Head Atraumatic, Normocephalic Eyes Eyes Atraumatic, PERRL, EOMI Ears/Nose/Throat Ears/Nose/Throat Atraumatic, Airway patent, Muc ous membranes moist, Pharynx NL Resp/Chest Respiratory/Chest Atraumatic, Breath sounds NL, Breath sounds = bilat, No respiratory distress, No rales, No rhonchi, No w heezing, No retractions Cardiovascular Cardiovascular Heart rate NL, Regular rhythm, H eart sounds NL, No murmurs Abdomen/GI Abdomen/GI Atraumatic, Soft, No rebound, BS nor moactive, No distention, No hernia, No palpable mass, No pulsatile mass Tenderness/Guarding/Rebound Tender LUQ, Tender flank L ( WITH PALPABLE MASS ). MS Back Back Atraumatic, Inspection NL, Full range of m otion, Painless range of motion Flank/Spine/Paraspinal Flank tender L. Skin Skin Atraumatic, Color NL, No rash, War m, Dry, Intact, Turgor NL, No swelling Genitourinary General Exam deferred Neurologic Neurologic Oriented X3, Speech NL, No motor def icits, No sensory deficits, Gait NL Additional PE MS Neck Neck Atraumatic, Supple, No meningismus , Full range of motion, No adenopathy, No swelling, Non-tender, No midline vertebral te nd Lymphatic Lymphatic No gross adenopathy MS Upper Extrem Upper Extremity/MS Atraumatic, Inspection NL MS Lower Extrem Lower Ext/Pelvis/MS Atraumatic, Inspection NL, Full range of motion, No swelling, Non-tender, No erythema, No deformity, Neurologic intact, Gait NL, Pelvis stable, Pelvis non-tender Psychiatric Psychiatric Affect NL, Mood NL, Not suicidal, N ot homicidal, Thought content NL Interpretation Diagnostics Lab Results Interpretation Results Laboratory Tests 07/21/181704: [Embedded Image Not Available] Laboratory Tests: 07/21 1704 Chemistry Sodium (133 - 144 mmol/L) 137.0 Potassium (3.5 - 5.1 mmol/L) 3.6 Chloride (95 - 105 mmol/L) 107 H Carbon Dioxide (21 - 32 mmol/L) 23 Anion Gap (4.0 - 15.0 GAP calc) 7.0 BUN (7 - 18 MG/DL) 15 Creatinine (0.55 - 1.30 MG/DL) 2.22 H Glomerular Filtr Rate (>60 estGFR) 32 L Glucose (70 - 110 MG/DL) 87 Calcium (8.5 - 10.1 MG/DL) 8.4 L Total Bilirubin (0.00 - 1.00 MG/DL) 0.23 Direct Bilirubin (0.00 - 0.30 MG/DL) < 0.10 Indirect Bilirubin (0.2 - 1.3 MG/DL) 0.23 AST (15 - 37 Unit/L) 19 ALT (12 - 78 Unit/L) 23 Total Alk Phosphatase (45 - 117 Unit/L) 146 H Troponin I (0.000 - 0.045 NG/ML) < 0.015 Total Protein (6.4 - 8.2 G/DL) 7.4 Albumin (3.4 - 5.0 G/DL) 3.7 Albumin/Globulin Ratio (1.2 - 2.2 RATIO) 1.0 L Lipase (114 - 286 Unit/L) 121 Specimen Appearance (1 NORMAL Index/DL) 1 AALIYAH L <2 MG Specimen Hemolysis (1 NORMAL Index/DL) 1 NORMAL <10 MG Hematology WBC (4.1 - 12.1 K/mm3) 8.8 RBC (3.8 - 5.5 M/mm3) 4.49 Hgb (10.6 - 15.8 G/DL) 12.6 Hct (36.0 - 47.4 %) 39.0 MCV (80.1 - 101.1 fL) 86.9 MCH (25.3 - 35.3 pg) 28.1 MCHC (32.7 - 35.1 G/DL) 32.3 L RDW (12.2 - 16.4 %) 14.5 Plt Count (155 - 337 K/mm3) 203 MPV (7.6 - 10.4 fL) 9.7 Gran % (37.8 - 82.6 %) 49.7 Lymph % (Auto) (14.1 - 45.4 %) 40.8 [place] % (Auto) (2.5 - 11.7 %) 6.0 Eos % (Auto) (0.0 - 6.2 %) 3.1 Baso % (Auto) (0.0 - 2.6 %) 0.2 Gran # (2.0 - 13.7 k/mm3) 4.39 Lymph # (Auto) (0.6 - 3.8 K/mm3) 3.60 [place] # (Auto) (0.11 - 0.59 K/mm3) 0.53 Eos # (Auto) (0.0 - 0.4 K/mm3) 0.27 Baso # (Auto) (0.0 - 0.1 K/mm3) 0.02 Immature Gran % (0.0 - 2.0 %) 0.2 Nucleated RBC % (0.0 - 1.0 /100WBC%) 0.0 Nucleated RBCs # (0.00 - 0.05 K/mm3) 0.00 Recent Impressions: CAT SCAN - CT ABD PELVIS W/O CONT 07/21 1950 Report Impression - Status: SIGNED Entered: 07/21/20182008 IMPRESSION: Findings suggestive of viral enterocolitis versu s ileus with mildly fluid-filled distention of small bowel loops and of the right side of the colon without associated wall thickening Mild renal atrophy Impression By: Radha - Heather abraham M.D. Re-Evaluation [facility] )( Re-Evaluation/Progress #1 Text/Dict Note ordered ct abdomen pelvis with po contra st as pt creatinine is elevated due to kidney disease..norco ordered due to pain not re solved by morphine Time of Re-Eval 1819 Re-Evaluation/Progress #2 Text/Dict Note Patient reports he still experiencing abdominal discomfort.. Will admit for intractable abdominal pain versus ileus.. Discus sed admission plan of care patient verbalized understanding and agrees.. Time of Eval 2056 ED Course Medication(s) Ordered Medication(s) Ordered: Central Nervous System Agents Sig/Melany Start time Last Medication Dose Route Stop Time Status Admin Morphine Sulfate 4 MG Q6H PRN PRN 07/215 AC IV Hydrocodone Bitart/ 1 TAB X1ED STA 07/21 181 D C 07/21 Acetaminophen PO 07/21 1812 1831 Morphine Sulfate 4 MG X1ED STA 07/21 1650 DC IV 07/21 1651 1701 Diagnostic Agents Sig/Melany Start time Last Medication Dose Route Stop Time Status Admin Diatrizoate Meglum/ 30 ML X1ED STA 07/21 1819 D C 07/21 Diatrizoate Sod PO 07/21 1820 1831 Gastrointestinal Drugs Sig/Melany Start time Last Medication Dose Route Stop Time Status Admin Ondansetron HCl 4 MG X1ED STA 07/21 1650 DC IV 07/21 1651 1701 Patient Discharge Departure Vital Signs/Condition Vital Signs First Documented: Result Date Time Pulse Ox 98 07/21 1644 B/P 135/81 07/21 1644 B/P Mean 99 07/21 1644 O2 Delivery Room air 07/22 1643 Temp 98.6 07/21 164 Pulse 104 07/21 1644 Resp 18 07/21 1644 Last Documented: Result Date Time Pulse Ox 98 07/21 2134 B/P 125/83 07/21 2134 B/P Mean 97 07/21 2134 Temp 97.9 07/21 2134 Pulse 77 07/21 2134 Resp 16 07/21 2134 O2 Delivery Room air 07/22 1643 All vital signs available at the time of this en try have been reviewed. Clinical Impression Clinical Impression Primary Impression: Intractable abdominal pain Disposition Decision Admit Request Time 2101 Request Date 07/21/18 )( Admission Accepts Yes )( Accepted Time 2101 )( Accepted Date 07/21/18 Call Information will see patient, consulted wi th Dr. Fajardo who accepts admission and states they will add their own con sults and to admit to Dr. Nicolas. Discharge/Care Plan Counseled Regarding Diagnosis, Imaging studies, Need for admission Admit Note I have spoken with the patie nt and/or caregivers. I have explained the patient's condition, diagnoses and chris atment plan based on the information available to me at this time. I have answered the patient's and/ or caregiver's questions and addressed any concerns. The patient and/or careg maria eugenia have as good an understanding of the patient 's diagnosis, condition and treatment plan as can be expected at this point. The patient has been stabilized within the capability of the emergency department. The patient wi ll be transported for further care and management or will be moved to an observation or inpatient service. I have communicated with the staff or medical p romeoer taking over this patient's care. Electronically Signed by Paula Mandel NP on 12/01 at 2316 [facility] #:[id number] END OF REPORT 2018-07-21 [facility] 16:51:00-00:00 [facility] ([facility]) EMERGENCY PROVIDER REPORT REPORT#:[id number] REPORT STATUS: Signed DATE:07/21/18 TIME: 1650 PATIENT: JEOVANY BUCKLEY UNIT #: [id number] [facility]GE[facility] 52 SEX: M PCP PHYS: No Primary or Family P hysician SERVICE AUTHOR: Paula Mandel WILDERNESS GUIDE * ALL edits or amendments must be made on the [employer] document * Paula Mandel N. 07/21/18 1651: HPI-Abd Pain M 40 and Over General Confirmed Patient Yes Patient Type New patient Presentation Chief Complaint Abdominal pain Hx Obtained From Patient Sudden in Onset? No Onset Occurred Days ago (6) Symptom Duration Since onset Progression since Onset Gradually worsening Caused by No trauma by history Location Flank left, LEFT FLANK MASS Quality Painful Radiation No: Does not radiate. Severity: Current No pain currently Exacerbated by Palpation Context Recent Healthcare No recent doctor visit, No rec ent hospitalization Free Text HPI Notes Free Text HPI Notes 52 y.o male with pmh of kidn ey disease presents to the er for complaints of left flank pain with palpable mass x 6 days..pt state s no over the counter medications taken for discom fort and states pain is gradually worsened prompting his ER visit.. Patient denie s trauma , chest pain, shortness of breath, nausea, vomiting, diarrhea and fever.. Risk-Abd Pain M 40 and Over )( Abdominal Aortic Aneurysm Risk factors review ed Review of Systems Focused Review of Systems Constitutional Denies: Fever. Respiratory Denies: Cough, non-productive, Cough, productive , Dyspnea on exertion, Hemoptysis, Parox nocturnal dyspnea, Pleuritic p ain, Shortness of breath, Wheezing. Cardiovascular Denies: Chest pain, Dyspnea on exertion, Edema, Orthopnea, Palpitations, Parox nocturnal dyspnea, Syncope. GI Reports: Abdominal pain. Denies: Diarrhea, Nause a, Vomiting. Male Denies: Dysuria, Flank pain, Hematuria, Incontinence, Nocturia, Penile discharge , Penile lesion, Scrotal swe lling, Testicular pain, Testicular swelling, Urinary frequency, Urinary urgency, Urination decreased, Urination increased. Musculoskeletal Denies: Extremity pain, Extremity swelling. Additional Review of Systems Eyes Denies: Eye pain R, Eye pain L, Redness R, Redne ss L. Skin Denies: Rash. Neurologic Denies: Headache. Psychiatric Denies: Homicidal ideation, Suicidal ideation. Past Medical History - Adult Stated Complaint ABDOMINAL PAIN Past Medical History: Reports: Kidney disease/stones. Additional Medical History Bipolar disorder, CKD Physical Exam Vital Signs Vital Signs First Documented: Result Date Time Pulse Ox 98 07/22 1643 B/P 135/81 07/22 1643 B/P Mean 99 07/22 1643 O2 Delivery Room air 07/22 1643 Temp 98.6 07/22 1643 Pulse 104 07/22 1643 Resp 18 07/22 1643 Last Documented: Result Date Time Pulse Ox 98 07/21 2134 B/P 125/83 07/21 2134 B/P Mean 97 07/21 2134 Temp 97.9 07/21 2134 Pulse 77 07/21 2134 Resp 16 07/21 2134 O2 Delivery Room air 07/22 1643 Review of Vital Signs Reviewed Focused PE General/Const General/Const Awake, Alert, No acute di stress, Well appearing, Well developed , Well hydrated, Well nourished, Cooperative, No t toxic appearing MS Head Head Atraumatic, Normocephalic Eyes Eyes Atraumatic, PERRL, EOMI Ears/Nose/Throat Ears/Nose/Throat Atraumatic, Airway patent, Muc ous membranes moist, Pharynx NL Resp/Chest Respiratory/Chest Atraumatic, Breath sounds NL, Breath sounds = bilat, No respiratory distress, No rales, No rhonchi, No w heezing, No retractions Cardiovascular Cardiovascular Heart rate NL, Regular rhythm, H eart sounds NL, No murmurs Abdomen/GI Abdomen/GI Atraumatic, Soft, No rebound, BS nor moactive, No distention, No hernia, No palpable mass, No pulsatile mass Tenderness/Guarding/Rebound Tender LUQ, Tender flank L ( WITH PALPABLE MASS ). MS Back Back Atraumatic, Inspection NL, Full range of m otion, Painless range of motion Flank/Spine/Paraspinal Flank tender L. Skin Skin Atraumatic, Color NL, No rash, War m, Dry, Intact, Turgor NL, No swelling Genitourinary General Exam deferred Neurologic Neurologic Oriented X3, Speech NL, No motor def icits, No sensory deficits, Gait NL Additional PE MS Neck Neck Atraumatic, Supple, No meningismus , Full range of motion, No adenopathy, No swelling, Non-tender, No midline vertebral te nd Lymphatic Lymphatic No gross adenopathy MS Upper Extrem Upper Extremity/MS Atraumatic, Inspection NL MS Lower Extrem Lower Ext/Pelvis/MS Atraumatic, Inspection NL, Full range of motion, No swelling, Non-tender, No erythema, No deformity, Neurologic intact, Gait NL, Pelvis stable, Pelvis non-tender Psychiatric Psychiatric Affect NL, Mood NL, Not suicidal, N ot homicidal, Thought content NL Interpretation Diagnostics Lab Results Interpretation Results Laboratory Tests 07/21/181704: [Embedded Image Not Available] Laboratory Tests: 07/21 1704 Chemistry Sodium (133 - 144 mmol/L) 137.0 Potassium (3.5 - 5.1 mmol/L) 3.6 Chloride (95 - 105 mmol/L) 107 H Carbon Dioxide (21 - 32 mmol/L) 23 Anion Gap (4.0 - 15.0 GAP calc) 7.0 BUN (7 - 18 MG/DL) 15 Creatinine (0.55 - 1.30 MG/DL) 2.22 H Glomerular Filtr Rate (>60 estGFR) 32 L Glucose (70 - 110 MG/DL) 87 Calcium (8.5 - 10.1 MG/DL) 8.4 L Total Bilirubin (0.00 - 1.00 MG/DL) 0.23 Direct Bilirubin (0.00 - 0.30 MG/DL) < 0.10 Indirect Bilirubin (0.2 - 1.3 MG/DL) 0.23 AST (15 - 37 Unit/L) 19 ALT (12 - 78 Unit/L) 23 Total Alk Phosphatase (45 - 117 Unit/L) 146 H Troponin I (0.000 - 0.045 NG/ML) < 0.015 Total Protein (6.4 - 8.2 G/DL) 7.4 Albumin (3.4 - 5.0 G/DL) 3.7 Albumin/Globulin Ratio (1.2 - 2.2 RATIO) 1.0 L Lipase (114 - 286 Unit/L) 121 Specimen Appearance (1 NORMAL Index/DL) 1 AALIYAH L <2 MG Specimen Hemolysis (1 NORMAL Index/DL) 1 NORMAL <10 MG Hematology WBC (4.1 - 12.1 K/mm3) 8.8 RBC (3.8 - 5.5 M/mm3) 4.49 Hgb (10.6 - 15.8 G/DL) 12.6 Hct (36.0 - 47.4 %) 39.0 MCV (80.1 - 101.1 fL) 86.9 MCH (25.3 - 35.3 pg) 28.1 MCHC (32.7 - 35.1 G/DL) 32.3 L RDW (12.2 - 16.4 %) 14.5 Plt Count (155 - 337 K/mm3) 203 MPV (7.6 - 10.4 fL) 9.7 Gran % (37.8 - 82.6 %) 49.7 Lymph % (Auto) (14.1 - 45.4 %) 40.8 [place] % (Auto) (2.5 - 11.7 %) 6.0 Eos % (Auto) (0.0 - 6.2 %) 3.1 Baso % (Auto) (0.0 - 2.6 %) 0.2 Gran # (2.0 - 13.7 k/mm3) 4.39 Lymph # (Auto) (0.6 - 3.8 K/mm3) 3.60 [place] # (Auto) (0.11 - 0.59 K/mm3) 0.53 Eos # (Auto) (0.0 - 0.4 K/mm3) 0.27 Baso # (Auto) (0.0 - 0.1 K/mm3) 0.02 Immature Gran % (0.0 - 2.0 %) 0.2 Nucleated RBC % (0.0 - 1.0 /100WBC%) 0.0 Nucleated RBCs # (0.00 - 0.05 K/mm3) 0.00 Recent Impressions: CAT SCAN - CT ABD PELVIS W/O CONT 07/21 1949 Report Impression - Status: SIGNED Entered: 07/21/20182008 IMPRESSION: Findings suggestive of viral enterocolitis versu s ileus with mildly fluid-filled distention of small bowel loops and of the right side of the colon without associated wall thickening Mild renal atrophy Impression By: RosyDASKam abraham M.D. Re-Evaluation [facility] )( Re-Evaluation/Progress #1 Text/Dict Note ordered ct abdomen pelvis with po contra st as pt creatinine is elevated due to kidney disease..norco ordered due to pain not re solved by morphine Time of Re-Eval 1819 Re-Evaluation/Progress #2 Text/Dict Note Patient reports he still experiencing abdominal discomfort.. Will admit for intractable abdominal pain versus ileus.. Discus sed admission plan of care patient verbalized understanding and agrees.. Time of Eval 2056 ED Course Medication(s) Ordered Medication(s) Ordered: Central Nervous System Agents Sig/Melany Start time Last Medication Dose Route Stop Time Status Admin Morphine Sulfate 4 MG Q6H PRN PRN 07/21 2114 AC IV Hydrocodone Bitart/ 1 TAB X1ED STA 07/21 181 D C 07/21 Acetaminophen PO 07/21 1812 1831 Morphine Sulfate 4 MG X1ED STA 07/21 1650 DC IV 07/21 1651 1701 Diagnostic Agents Sig/Melany Start time Last Medication Dose Route Stop Time Status Admin Diatrizoate Meglum/ 30 ML X1ED STA 07/21 1819 D C 07/21 Diatrizoate Sod PO 07/21 1820 1831 Gastrointestinal Drugs Sig/Melany Start time Last Medication Dose Route Stop Time Status Admin Ondansetron HCl 4 MG X1ED STA 07/21 1650 DC / IV 07/21 1651 1701 Patient Discharge Departure Vital Signs/Condition Vital Signs First Documented: Result Date Time Pulse Ox 98 07/21 1644 B/P 135/81 07/21 1644 B/P Mean 99 07/21 1644 O2 Delivery Room air 07/21 1644 Temp 98.6 07/21 1644 Pulse 104 07/21 1644 Resp 18 07/21 1644 Last Documented: Result Date Time Pulse Ox 98 07/21 2134 B/P 125/83 07/21 2134 B/P Mean 97 07/21 2134 Temp 97.9 07/21 2134 Pulse 77 07/21 2134 Resp 16 07/21 2134 O2 Delivery Room air 07/21 1644 All vital signs available at the time of this en try have been reviewed. Clinical Impression Clinical Impression Primary Impression: Intractable abdominal pain Disposition Decision Admit Request Time 2101 Request Date 07/21/18 )( Admission Accepts Yes )( Accepted Time 2101 )( Accepted Date 07/21/18 Call Information will see patient, consulted wi th Dr. Fajardo who accepts admission and states they will add their own con sults and to admit to Dr. Nicolas. Discharge/Care Plan Counseled Regarding Diagnosis, Imaging studies, Need for admission Admit Note I have spoken with the patie nt and/or caregivers. I have explained the patient's condition, diagnoses and chris atment plan based on the information available to me at this time. I have answered the patient's and/ or caregiver's questions and addressed any concerns. The patient and/or careg maria eugenia have as good an understanding of the patient 's diagnosis, condition and treatment plan as can be expected at this point. The patient has been stabilized within the capability of the emergency department. The patient wi ll be transported for further care and management or will be moved to an observation or inpatient service. I have communicated with the staff or medical p katrina taking over this patient's care. Russell Ji 07/24/18 0907: HPI-Abd Pain M 40 and Over General Initial Greet Date/Time 07/21/18 1647 Past Medical History - Adult Allergies Coded Allergies: Penicillins (UNKNOWN 07/21/18) Sulfa (Sulfonamide Antibiotics) (UNKNOWN 9) Home Medications Reported Medications QUEtiapine (SEROquel) 200 MG PO BID busPIRone (BUSPAR) 5 MG PO DAILY traMADol (ULTRAM) 50 MG PO Q6H traZODone (DESYREL) 100 MG PO BEDTIME ZOLPIDEM (AMBIEN) 10 MG PO BEDTIME ESCITALOPRAM (LEXAPRO) 20 MG PO BID LISINOPRIL (ZESTRIL) 5 MG PO DAILY APIXABAN (ELIQUIS) 5 MG PO BID ESOMEPRAZOLE MAG DR (NexIUM) 40 MG PO DAILY Physical Exam Vital Signs Vital Signs Interpretation Diagnostics Lab Results Interpretation Results Patient Discharge Departure Vital Signs/Condition Vital Signs Supervising Physician Note MidLv Saw Pt Alone I have reviewed the PA/WILDERNESS GUIDE's note and plan of talon bobo. I was available for consultation as needed at al l times during the patient's visit in the emergency department. I agree with the clinical impression , plan and disposition. Electronically Signed by Paula Mandel NP on 12/01 at 2316 at 0914 [facility] #:[id number] END OF REPORT 2018-06-23 [facility] 14:36:00-00:00 [facility] ([facility]) EMERGENCY PROVIDER REPORT REPORT#:[id number] REPORT STATUS: Signed DATE:06/23/18 TIME: 143 PATIENT: JEOVANY BUCKLEY UNIT #: [id number] ROOM/BED: AGE: 52 SEX: M PCP PHYS: No Primary or Family Ph ysician SERVICE AUTHOR: Marge Walden * ALL edits or amendments must be made on the [employer] document * HPI- Male General Confirmed Patient Yes Initial Greet Date/Time 06/23/18 1344 Assumed Care at Time 1436 Date 06/23/18 PCP none. Presentation Chief Complaint Flank pain R, Flank pain L Hx Obtained From Patient Onset Occurred Days ago (3-4 days ) Symptom Duration Since onset Progression since Onset Constant Context of Onset Spontaneous Caused by No trauma by history Location Flank R, Flank L Quality Painful, Sharp Radiation No: Does not radiate. Severity: Current Pain level 7 out of 10 Associated with Reports: Fever, Nausea. Denies: Constipa tion, Hematemesis, Laceration, Loss of consciousness, Vomiting. Associated Other diarrhea x yesterday x 4, none today. Exacerbated by Nothing Relieved by Nothing Context Immunization Status General Unknown Recent Healthcare No recent doctor visit, No rec ent hospitalization Similar Sx Previous Yes, hx renal calculi, and C KD Free Text HPI Notes Free Text HPI Notes 52-year-old male with past medical history of bi polar distal disorder, Goshen's chorea, CKD, liver damage, presents to the ER complaining of bilateral flank pain that st arted about 3-4 days ago associated with nausea, and fevers, he has had a T-max o f 102 last night he took ibuprofen, no fevers since this morning. The patient has had 4 episodes of diarrhea yeste rday, none today. The patient states that he does have renal calcu li in the past, currently he denies any UTI symptoms, burning or any hematuri a. The patient denies any chills, vomiting. 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 Risk- Male Risk Stratification Torsion Risk factors reviewed Review of Systems ROS Statements All systems rev neg except as marked. Focused Review of Systems Constitutional Reports: Fever. Denies: Chills. GI Reports: Diarrhea, Nausea. Denies: Abdominal karlene n, Vomiting. Male Reports: Flank pain. Denies: Dysuria, Hematuria, Incontinence, Nocturia, Penile discharge, Penile lesion, Sc rotal swelling, Testicular pain, Testicular swelling , Urinary frequency, Urinary urgency, Urination decreased, Urination increased. Musculoskeletal Denies: Joint pain, Joint swelling. Skin Denies: Erythema, Swelling. Past Medical History - Adult Stated Complaint KIDNEY STONES Allergies Coded Allergies: Penicillins (UNKNOWN 06/23/18) Sulfa (Sulfonamide Antibiotics) (UNKNOWN 9) Home Medications Reported Medications QUEtiapine (SEROquel) 400 MG PO DAILY traZODone (DESYREL) 100 MG PO BEDTIME ZOLPIDEM (AMBIEN) 10 MG PO BEDTIME ESCITALOPRAM (LEXAPRO) 20 MG PO BID LISINOPRIL (ZESTRIL) 5 MG PO DAILY busPIRone (BUSPAR) 15 MG PO DAILY APIXABAN (ELIQUIS) 5 MG PO BID ESOMEPRAZOLE MAG DR (NexIUM) 40 MG PO DAILY Review of Nursing Notes reviewed. Past Medical History: Reports: Kidney disease/stones. Additional Medical History Bipolar disorder, CKD Additional Surgical History None Additional Family History None Alcohol Use Denies EtOH use Drug Use Denies recreational drugs Smoking status for patients 13 years old or olde r: Current every day smoker Pack years (pk/d)*(yrs): 37 Date last smoked: still smoking Other Social History Homeless Physical Exam Vital Signs Vital Signs First Documented: Result Date Time Pulse Ox 96 06/23 1344 B/P 126/63 06/23 1344 B/P Mean 84 06/23 1344 O2 Delivery Room air 06/23 1344 Temp 98.0 06/23 1344 Pulse 110 06/23 1344 Resp 18 06/23 1344 Last Documented: Result Date Time Pulse Ox 97 06/23 1620 B/P 124/60 06/23 1620 B/P Mean 81 06/23 1620 Temp 98.0 06/23 1620 Pulse 74 04/11 1620 Resp 16 06/23 1620 O2 Delivery Room air 06/23 1344 Review of Vital Signs Reviewed Focused PE General/Const General/Const Awake, Alert, No acute di stress, Well appearing, Well developed , Well hydrated, Well nourished, Cooperative, No t toxic appearing Abdomen/GI Tenderness/Guarding/Rebound Tender flank R, Tender flank L. Skin Skin Atraumatic, Color NL, No rash, War m, Dry, Intact, Turgor NL, No swelling Genitourinary General Exam deferred Additional PE MS Head Head Normocephalic Ears/Nose/Throat Ears/Nose/Throat Atraumatic, Airway patent, Muc ous membranes moist MS Neck Neck Atraumatic, Supple, No meningismus , Full range of motion, No adenopathy, No swelling, Non-tender, No midline vertebral te nd Resp/Chest Respiratory/Chest Atraumatic, Breath sounds NL, Breath sounds = bilat, No respiratory distress, No rales, No rhonchi, No w heezing, No retractions Cardiovascular Cardiovascular Regular rhythm, Heart sounds NL, No murmurs, Cap refill not delayed Heart Rate/Rhythm Tachycardia. MS Back Flank/Spine/Paraspinal Flank tender bilateral. MS Lower Extrem Lower Ext/Pelvis/MS Atraumatic, Inspection NL, Full range of motion, No swelling, Non-tender, No erythema, No deformity, Neurologic intact, Vascular intact, No ligamentous injury, Tendon fu nction NL, No compartment syndrome, No circumferential injury, No edema, Gait NL, Pelvi s stable, Pelvis non-tender Neurologic Neurologic Oriented X3, Speech NL, No motor def icits, Memory NL, Gait NL Psychiatric Psychiatric Affect NL, Mood NL Interpretation Diagnostics Lab Results Interpretation Considerations Independ review imaging Results Laboratory Tests 06/23/18 1440: [Embedded Image Not Available] Laboratory Tests: 06/23 06/23 1440 1345 Chemistry Sodium (133 - 144 mmol/L) 144.0 Potassium (3.5 - 5.1 mmol/L) 3.7 Chloride (95 - 105 mmol/L) 112 H Carbon Dioxide (21 - 32 mmol/L) 23 Anion Gap (4.0 - 15.0 GAP calc) 9.0 BUN (7 - 18 MG/DL) 14 Creatinine (0.55 - 1.30 MG/DL) 2.16 H Glomerular Filtr Rate (>60 estGFR) 33 L Glucose (70 - 110 MG/DL) 79 Calcium (8.5 - 10.1 MG/DL) 8.3 L Total Bilirubin (0.00 - 1.00 MG/DL) 0.15 Direct Bilirubin (0.00 - 0.30 MG/DL) < 0.10 Indirect Bilirubin (0.2 - 1.3 MG/DL) CALC AUBREY L AST (15 - 37 Unit/L) 12 L ALT (12 - 78 Unit/L) 14 Total Alk Phosphatase (45 - 117 Unit/L) 123 H Total Protein (6.4 - 8.2 G/DL) 6.4 Albumin (3.4 - 5.0 G/DL) 3.3 L Albumin/Globulin Ratio (1.2 - 2.2 RATIO) 1.1 L Lipase (114 - 286 Unit/L) 134 Specimen Appearance (1 NORMAL Index/DL) 1 AALIYAH L <2 MG Specimen Hemolysis (1 NORMAL Index/DL) 1 NORMAL <10 MG Hematology WBC (4.1 - 12.1 K/mm3) 12.0 RBC (3.8 - 5.5 M/mm3) 3.99 Hgb (10.6 - 15.8 G/DL) 11.2 Hct (36.0 - 47.4 %) 36.1 MCV (80.1 - 101.1 fL) 90.5 MCH (25.3 - 35.3 pg) 28.1 MCHC (32.7 - 35.1 G/DL) 31.0 L RDW (12.2 - 16.4 %) 14.5 Plt Count (155 - 337 K/mm3) 175 MPV (7.6 - 10.4 fL) 9.7 Gran % (37.8 - 82.6 %) 70.3 Lymph % (Auto) (14.1 - 45.4 %) 21.3 [place] % (Auto) (2.5 - 11.7 %) 5.9 Eos % (Auto) (0.0 - 6.2 %) 1.8 Baso % (Auto) (0.0 - 2.6 %) 0.3 Gran # (2.0 - 13.7 k/mm3) 8.42 Lymph # (Auto) (0.6 - 3.8 K/mm3) 2.55 [place] # (Auto) (0.11 - 0.59 K/mm3) 0.70 H Eos # (Auto) (0.0 - 0.4 K/mm3) 0.21 Baso # (Auto) (0.0 - 0.1 K/mm3) 0.03 Immature Gran % (0.0 - 2.0 %) 0.4 Nucleated RBC % (0.0 - 1.0 /100WBC%) 0.0 Nucleated RBCs # (0.00 - 0.05 K/mm3) 0.00 Urines Urine Color (YELLOW DESCRIPT) YELLOW Urine Appearance (CLEAR DESCRIPT) CLEAR Urine pH (4.6 - 8.0 pH UNITS) 6.0 Ur Specific [place] (1.001 - 1.035 SG) 1.010 Urine Protein (<30 (1+) mg/dL) NEGATIVE (0) Urine Glucose (UA) ((NEG) 0 mg/dL) NEGATIVE (0) Urine Ketones ((NEG) 0 mg/dL) 0 (NEG) Urine Blood ((NEG) 0 mg/DL) NEGATIVE (0) Urine Nitrite (NEG SCREEN) NEGATIVE (0) Urine Bilirubin ((NEG) 0 mg/dL) NEGATIVE (0) Urine Urobilinogen (<2.0 (1+) mg/Dl) NORMAL (0) Ur Leukocyte Esterase ((NEG) 0 Leuk/mcL) NEGATI VE (0) Urine RBC (0 - 3 #RBC/HPF) NONE Urine WBC (0 - 3 #WBC/HPF) 0-3 Urine Mucus (NONE /LPF) RARE Recent Impressions: CAT SCAN - CT ABD PELVIS W/O CONT 06/23 1450 Report Impression - Status: SIGNED Entered: 06/23/2018 1541 IMPRESSION: No nephrolithiasis, hydronephrosis or acute find ing. Minimal uncomplicated sigmoid colon diverticulosis is no maame. Impression By: Kajal Russell M.D. Lab Imaging Statement Laboratory radiographic studies reviewed and con sidered in the medical decision-making. ecent Impressions: CAT SCAN - CT ABD PELVIS W/O CONT 06/23 145 Report Impression - Status: SIGNED Entered: 06/23/2018 1541 IMPRESSION: No nephrolithiasis, hydronephrosis or acute find ing. Minimal uncomplicated sigmoid colon diverticulosis is no maame. Impression By: Kajal Hilluj Isidro Russell Point of Care Testing Urinalysis Interpretation Urinalysis NL Pulse Oximetry Pulse Ox % 96 On: Room air Interpretation Interpreted by me, Pulse oximetr y normal Time 1436 Lab Studies CBC Interpretation CBC NL BMP/CMP Interpretation BMP/CMP normal except, Cr eatinine elevated Re-Evaluation MDM Re-Evaluation/Progress Re-Evaluation/Progress 1 Time of Re-Eval 1518 Re-Eval Status Improved Plan Post Re-Eval awaiting ct scan results. Re-Evaluation/Progress 2 Text/Dict Note The patient sitting in the ER room, he is playin [employer] games on his phone, reports that he still has the same pain, after t he morphine it helped a little but now his pain is returning back. Reviewed the patient's previous creatinine level s, which have been anywhere between 1.86-12.08, today hi s creatinine is 2.16, as he has a history of chronic kidney disease this is possibly his baseline. The patient appears well, nontoxic, his CBC and UA are negative, his CT scan reveals no acute findings. He does have divertic ulosis, advised to increase fiber in his diet. We will discharge the patient to follow-up with the drug room clerk. Will discharge him on tramadol. Time of Re-Eval 1551 Re-Eval Status Unchanged Plan Post Re-Eval Plan discharge ED Course Medication(s) Ordered Medication(s) Ordered: Central Nervous System Agents Sig/Melany Start time Last Medication Dose Route Stop Time Status Admin Morphine Sulfate 4 MG X1ED STA 06/23 1347 DC IV 06/23 1348 1448 Electrolytic, Caloric, And Maxim Sig/Melany Start time Last Medication Dose Route Stop Time Status Admin Sodium Chloride 1,000 ML X1ED STA 06/23 1347 DC 06/23 IV 06/23 1446 1450 Gastrointestinal Drugs Sig/Melany Start time Last Medication Dose Route Stop Time Status Admin Ondansetron HCl 4 MG X1ED STA 06/23 1444 DC IV 06/23 1445 1450 Patient Discharge Departure Vital Signs/Condition Vital Signs First Documented: Result Date Time Pulse Ox 96 06/23 1344 B/P 126/63 06/23 1344 B/P Mean 84 06/23 1344 O2 Delivery Room air 06/23 1344 Temp 98.0 06/23 1344 Pulse 110 06/23 1344 Resp 18 06/23 1344 Last Documented: Result Date Time Pulse Ox 97 06/23 1620 B/P 124/60 06/23 1620 B/P Mean 81 06/23 1620 Temp 98.0 06/23 1620 Pulse 74 04 1620 Resp 16 06/23 1620 O2 Delivery Room air 06/23 1344 All vital signs available at the time of this en try have been reviewed. Condition Stable Clinical Impression Clinical Impression Primary Impression: Flank pain Secondary Impressions: CKD (chronic kidney disea se), Diverticulosis Disposition Decision Discharge )( Discharged to Home Yes )( Time 1556 )( Date 06/23/18 Discharge/Care Plan Counseled Regarding Diagnosi s, Lab results, Imaging studies, Prescriptions, Need for follow-up, Smoking cessation, When to return to ED Prescriptions tramadol Prescriptions Reviewed Risks, Benefits, Alternat noy treatment Discharge Note I have spoken with the patie nt and/or caregivers. I have explained the patient's condition, diagnoses and chris atment plan based on the information available to me at this time. I have answered the patient's and/ or caregiver's questions and addressed any concerns. The patient and/or careg maria eugenia have as good an understanding of the patient 's diagnosis, condition and treatment plan as can be expected at this point. The vital signs have bee n stable. The patient's condition is stable and appr opriate for discharge from the emergency department. The patient will pursue further outpatient evalu ation with the primary care physician or other designated or consulting phys ician as outlined in the discharge instructions. The patient and/or caregivers are agreeable to this plan of care and follow-up instructions have been exp lained in detail. The patient and/or caregivers have received these instructio ns in written format and have expressed an understanding of the discharge inst ructions. The patient and/or caregivers are aware that any significant change in condition or worsening of symptoms should prompt an immediate return to [facility] or the closest emergency department or a call to 911. Quality Measures BP F/U for HTN BP in normal range Tobacco Screening/Cessation 18 years or older, T obacco user, Counseled 3-10 minutes Electronically Signed by Marge Walden on 06/13 04/02 at 2328 RPT #:[id number] END OF REPORT 2018-06-23 [facility] 14:36:00-00:00 [facility] ([facility]) EMERGENCY PROVIDER REPORT REPORT#:[id number] REPORT STATUS: Signed DATE:06/23/18 TIME: 1435 PATIENT: JEOVANY BUCKLEY UNIT #: [id number] ROOM/BED: AGE: 52 SEX: M PCP PHYS: No Primary or Family Ph ysician SERVICE AUTHOR: Marge Walden * ALL edits or amendments must be made on the [employer]/computer document * Marge Walden 06/23/18 1436: HPI- Male General Confirmed Patient Yes Assumed Care at Time 1436 Date 06/23/18 PCP none. Presentation Chief Complaint Flank pain R, Flank pain L Hx Obtained From Patient Onset Occurred Days ago (3-4 days ) Symptom Duration Since onset Progression since Onset Constant Context of Onset Spontaneous Caused by No trauma by history Location Flank R, Flank L Quality Painful, Sharp Radiation No: Does not radiate. Severity: Current Pain level 7 out of 10 Associated with Reports: Fever, Nausea. Denies: Constipa tion, Hematemesis, Laceration, Loss of consciousness, Vomiting. Associated Other diarrhea x yesterday x 4, none today. Exacerbated by Nothing Relieved by Nothing Context Immunization Status General Unknown Recent Healthcare No recent doctor visit, No rec ent hospitalization Similar Sx Previous Yes, hx renal calculi, and C KD Free Text HPI Notes Free Text HPI Notes 52-year-old male with past medical history of bi polar distal disorder, Goshen's chorea, CKD, liver damage, presents to the ER complaining of bilateral flank pain that st arted about 3-4 days ago associated with nausea, and fevers, he has had a T-max o f 102 last night he took ibuprofen, no fevers since this morning. The patient has had 4 episodes of diarrhea yeste rday, none today. The patient states that he does have renal calcu li in the past, currently he denies any UTI symptoms, burning or any hematuri a. The patient denies any chills, vomiting. 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 Risk- Male Risk Stratification Torsion Risk factors reviewed Review of Systems ROS Statements All systems rev neg except as marked. Focused Review of Systems Constitutional Reports: Fever. Denies: Chills. GI Reports: Diarrhea, Nausea. Denies: Abdominal karlene n, Vomiting. Male Reports: Flank pain. Denies: Dysuria, Hematuria, Incontinence, Nocturia, Penile discharge, Penile lesion, Sc rotal swelling, Testicular pain, Testicular swelling , Urinary frequency, Urinary urgency, Urination decreased, Urination increased. Musculoskeletal Denies: Joint pain, Joint swelling. Skin Denies: Erythema, Swelling. Past Medical History - Adult Stated Complaint KIDNEY STONES Allergies Coded Allergies: Penicillins (UNKNOWN 06/23/18) Sulfa (Sulfonamide Antibiotics) (UNKNOWN 9) Home Medications Reported Medications QUEtiapine (SEROquel) 400 MG PO DAILY traZODone (DESYREL) 100 MG PO BEDTIME ZOLPIDEM (AMBIEN) 10 MG PO BEDTIME ESCITALOPRAM (LEXAPRO) 20 MG PO BID LISINOPRIL (ZESTRIL) 5 MG PO DAILY busPIRone (BUSPAR) 15 MG PO DAILY APIXABAN (ELIQUIS) 5 MG PO BID ESOMEPRAZOLE MAG DR (NexIUM) 40 MG PO DAILY Review of Nursing Notes reviewed. Past Medical History: Reports: Kidney disease/stones. Additional Medical History Bipolar disorder, CKD Additional Surgical History None Additional Family History None Alcohol Use Denies EtOH use Drug Use Denies recreational drugs Smoking status for patients 13 years old or olde r: Current every day smoker Pack years (pk/d)*(yrs): 37 Date last smoked: still smoking Other Social History Homeless Physical Exam Vital Signs Vital Signs First Documented: Result Date Time Pulse Ox 96 06/23 1344 B/P 126/63 06/23 1344 B/P Mean 84 06/23 1344 O2 Delivery Room air 06/23 1344 Temp 98.0 06/23 1344 Pulse 110 06/23 1344 Resp 18 06/23 1344 Last Documented: Result Date Time Pulse Ox 97 06/23 1620 B/P 124/60 06/23 1620 B/P Mean 81 06/23 1620 Temp 98.0 06/23 1620 Pulse 74 06/23 1620 Resp 16 06/23 1620 O2 Delivery Room air 06/23 1344 Review of Vital Signs Reviewed Focused PE General/Const General/Const Awake, Alert, No acute di stress, Well appearing, Well developed , Well hydrated, Well nourished, Cooperative, No t toxic appearing Abdomen/GI Tenderness/Guarding/Rebound Tender flank R, Tender flank L. Skin Skin Atraumatic, Color NL, No rash, War m, Dry, Intact, Turgor NL, No swelling Genitourinary General Exam deferred Additional PE MS Head Head Normocephalic Ears/Nose/Throat Ears/Nose/Throat Atraumatic, Airway patent, Muc ous membranes moist MS Neck Neck Atraumatic, Supple, No meningismus , Full range of motion, No adenopathy, No swelling, Non-tender, No midline vertebral te nd Resp/Chest Respiratory/Chest Atraumatic, Breath sounds NL, Breath sounds = bilat, No respiratory distress, No rales, No rhonchi, No w heezing, No retractions Cardiovascular Cardiovascular Regular rhythm, Heart sounds NL, No murmurs, Cap refill not delayed Heart Rate/Rhythm Tachycardia. MS Back Flank/Spine/Paraspinal Flank tender bilateral. MS Lower Extrem Lower Ext/Pelvis/MS Atraumatic, Inspection NL, Full range of motion, No swelling, Non-tender, No erythema, No deformity, Neurologic intact, Vascular intact, No ligamentous injury, Tendon fu nction NL, No compartment syndrome, No circumferential injury, No edema, Gait NL, Pelvi s stable, Pelvis non-tender Neurologic Neurologic Oriented X3, Speech NL, No motor def icits, Memory NL, Gait NL Psychiatric Psychiatric Affect NL, Mood NL Interpretation Diagnostics Lab Results Interpretation Considerations Independ review imaging Results Laboratory Tests 06/23/18 1440: [Embedded Image Not Available] Laboratory Tests: 06/23 06/23 1440 1345 Chemistry Sodium (133 - 144 mmol/L) 144.0 Potassium (3.5 - 5.1 mmol/L) 3.7 Chloride (95 - 105 mmol/L) 112 H Carbon Dioxide (21 - 32 mmol/L) 23 Anion Gap (4.0 - 15.0 GAP calc) 9.0 BUN (7 - 18 MG/DL) 14 Creatinine (0.55 - 1.30 MG/DL) 2.16 H Glomerular Filtr Rate (>60 estGFR) 33 L Glucose (70 - 110 MG/DL) 79 Calcium (8.5 - 10.1 MG/DL) 8.3 L Total Bilirubin (0.00 - 1.00 MG/DL) 0.15 Direct Bilirubin (0.00 - 0.30 MG/DL) < 0.10 Indirect Bilirubin (0.2 - 1.3 MG/DL) CALC AUBREY L AST (15 - 37 Unit/L) 12 L ALT (12 - 78 Unit/L) 14 Total Alk Phosphatase (45 - 117 Unit/L) 123 H Total Protein (6.4 - 8.2 G/DL) 6.4 Albumin (3.4 - 5.0 G/DL) 3.3 L Albumin/Globulin Ratio (1.2 - 2.2 RATIO) 1.1 L Lipase (114 - 286 Unit/L) 134 Specimen Appearance (1 NORMAL Index/DL) 1 AALIYAH L <2 MG Specimen Hemolysis (1 NORMAL Index/DL) 1 NORMAL <10 MG Hematology WBC (4.1 - 12.1 K/mm3) 12.0 RBC (3.8 - 5.5 M/mm3) 3.99 Hgb (10.6 - 15.8 G/DL) 11.2 Hct (36.0 - 47.4 %) 36.1 MCV (80.1 - 101.1 fL) 90.5 MCH (25.3 - 35.3 pg) 28.1 MCHC (32.7 - 35.1 G/DL) 31.0 L RDW (12.2 - 16.4 %) 14.5 Plt Count (155 - 337 K/mm3) 175 MPV (7.6 - 10.4 fL) 9.7 Gran % (37.8 - 82.6 %) 70.3 Lymph % (Auto) (14.1 - 45.4 %) 21.3 [place] % (Auto) (2.5 - 11.7 %) 5.9 Eos % (Auto) (0.0 - 6.2 %) 1.8 Baso % (Auto) (0.0 - 2.6 %) 0.3 Gran # (2.0 - 13.7 k/mm3) 8.42 Lymph # (Auto) (0.6 - 3.8 K/mm3) 2.55 [place] # (Auto) (0.11 - 0.59 K/mm3) 0.70 H Eos # (Auto) (0.0 - 0.4 K/mm3) 0.21 Baso # (Auto) (0.0 - 0.1 K/mm3) 0.03 Immature Gran % (0.0 - 2.0 %) 0.4 Nucleated RBC % (0.0 - 1.0 /100WBC%) 0.0 Nucleated RBCs # (0.00 - 0.05 K/mm3) 0.00 Urines Urine Color (YELLOW DESCRIPT) YELLOW Urine Appearance (CLEAR DESCRIPT) CLEAR Urine pH (4.6 - 8.0 pH UNITS) 6.0 Ur Specific [place] (1.001 - 1.035 SG) 1.010 Urine Protein (<30 (1+) mg/dL) NEGATIVE (0) Urine Glucose (UA) ((NEG) 0 mg/dL) NEGATIVE (0) Urine Ketones ((NEG) 0 mg/dL) 0 (NEG) Urine Blood ((NEG) 0 mg/DL) NEGATIVE (0) Urine Nitrite (NEG SCREEN) NEGATIVE (0) Urine Bilirubin ((NEG) 0 mg/dL) NEGATIVE (0) Urine Urobilinogen (<2.0 (1+) mg/Dl) NORMAL (0) Ur Leukocyte Esterase ((NEG) 0 Leuk/mcL) NEGATI VE (0) Urine RBC (0 - 3 #RBC/HPF) NONE Urine WBC (0 - 3 #WBC/HPF) 0-3 Urine Mucus (NONE /LPF) RARE Recent Impressions: CAT SCAN - CT ABD PELVIS W/O CONT 06/23 1450 Report Impression - Status: SIGNED Entered: 06/23/2018 154 IMPRESSION: No nephrolithiasis, hydronephrosis or acute find ing. Minimal uncomplicated sigmoid colon diverticulosis is no maame. Impression By: Kajal Russell M.D. Lab Imaging Statement Laboratory radiographic studies reviewed and con sidered in the medical decision-making. ecent Impressions: CAT SCAN - CT ABD PELVIS W/O CONT 06/23 1450 Report Impression - Status: SIGNED Entered: 06/23/2018 1541 IMPRESSION: No nephrolithiasis, hydronephrosis or acute find ing. Minimal uncomplicated sigmoid colon diverticulosis is no maame. Impression By: Kajal Russell M.D. Point of Care Testing Urinalysis Interpretation Urinalysis NL Pulse Oximetry Pulse Ox % 96 On: Room air Interpretation Interpreted by me, Pulse oximetr y normal Time 1436 Lab Studies CBC Interpretation CBC NL BMP/CMP Interpretation BMP/CMP normal except, Cr eatinine elevated Re-Evaluation MDM Re-Evaluation/Progress Re-Evaluation/Progress 1 Time of Re-Eval 1518 Re-Eval Status Improved Plan Post Re-Eval awaiting ct scan results. Re-Evaluation/Progress 2 Text/Dict Note The patient sitting in the ER room, he is playin g games on his phone, reports that he still has the same pain, after t he morphine it helped a little but now his pain is returning back. Reviewed the patient's previous creatinine level s, which have been anywhere between 1.86-12.08, today hi s creatinine is 2.16, as he has a history of chronic kidney disease this is possibly his baseline. The patient appears well, nontoxic, his CBC and UA are negative, his CT scan reveals no acute findings. He does have divertic ulosis, advised to increase fiber in his diet. We will discharge the patient to follow-up with the drug room clerk. Will discharge him on tramadol. Time of Re-Eval 1551 Re-Eval Status Unchanged Plan Post Re-Eval Plan discharge ED Course Medication(s) Ordered Medication(s) Ordered: Electrolytic, Caloric, And Maxim Sig/Melany Start time Last Medication Dose Route Stop Time Status Admin Sodium Chloride 1,000 ML X1ED STA 06/23 1347 DC 06/23 IV 06/23 1446 1450 Gastrointestinal Drugs Sig/Melany Start time Last Medication Dose Route Stop Time Status Admin Ondansetron HCl 4 MG X1ED STA 06/23 1444 DC IV 06/23 1445 1450 Patient Discharge Departure Vital Signs/Condition Vital Signs First Documented: Result Date Time Pulse Ox 96 06/23 1344 B/P 126/63 06/23 1344 B/P Mean 84 06/23 1344 O2 Delivery Room air 06/23 1344 Temp 98.0 06/23 1344 Pulse 110 06/23 1344 Resp 18 06/23 1344 Last Documented: Result Date Time Pulse Ox 97 06/23 1620 B/P 124/60 06/23 1620 B/P Mean 81 06/23 1620 Temp 98.0 06/23 1620 Pulse 74 06/23 1620 Resp 16 06/23 1620 O2 Delivery Room air 06/23 1344 All vital signs available at the time of this en try have been reviewed. Condition Stable Clinical Impression Clinical Impression Primary Impression: Flank pain Secondary Impressions: CKD (chronic kidney disea se), Diverticulosis Disposition Decision Discharge )( Discharged to Home Yes )( Time 1556 )( Date 06/23/18 Discharge/Care Plan Counseled Regarding Diagnosi s, Lab results, Imaging studies, Prescriptions, Need for follow-up, Smoking cessation, When to return to ED Prescriptions tramadol Prescriptions Reviewed Risks, Benefits, Alternat noy treatment Discharge Note I have spoken with the patie nt and/or caregivers. I have explained the patient's condition, diagnoses and chris atment plan based on the information available to me at this time. I have answered the patient's and/ or caregiver's questions and addressed any concerns. The patient and/or careg maria eugenia have as good an understanding of the patient 's diagnosis, condition and treatment plan as can be expected at this point. The vital signs have bee n stable. The patient's condition is stable and appr opriate for discharge from the emergency department. The patient will pursue further outpatient evalu ation with the primary care physician or other designated or consulting phys ician as outlined in the discharge instructions. The patient and/or caregivers are agreeable to this plan of care and follow-up instructions have been exp lained in detail. The patient and/or caregivers have received these instructio ns in written format and have expressed an understanding of the discharge inst ructions. The patient and/or caregivers are aware that any significant change in condition or worsening of symptoms should prompt an immediate return to [facility] or the closest emergency department or a call to 911. Quality Measures BP F/U for HTN BP in normal range Tobacco Screening/Cessation 18 years or older, T obacco user, Counseled 3-10 minutes Cabrera Masters 06/24/18 1419: HPI- Male General Initial Greet Date/Time 06/23/18 1344 Physical Exam Vital Signs Vital Signs Interpretation Diagnostics Lab Results Interpretation Results Re-Evaluation MDM ED Course Medication(s) Ordered Patient Discharge Departure Vital Signs/Condition Vital Signs Supervising Physician Note MidLv Saw Pt Alone I have reviewed the PA/WILDERNESS GUIDE's note and plan of car e. I was available for consultation as needed at al l times during the patient's visit in the emergency department. I agree with the clinical impression , plan and disposition. Electronically Signed by Marge Walden on 06/13 04/02 at 2328 Electronically Signed by Cabrera Masters MD on at 1418 RPT #:[id number] END OF REPORT 2018-04-19 [facility] 23:52:00-00:00 [facility] ([facility]) EMERGENCY PROVIDER REPORT REPORT#:[id number] REPORT STATUS: Signed DATE:04/19/18 TIME: 2351 PATIENT: JEOVANY BUCKLEY UNIT #: [id number] ROOM/BED: AGE: 52 SEX: M PCP PHYS: No Primary or Family Ph ysician SERVICE AUTHOR: Josr Sanchez WILDERNESS GUIDE * ALL edits or amendments must be made on the [employer] document * HPI- Male General Confirmed Patient Yes Initial Greet Date/Time 04/19/18 2331 Provider in Triage Greet Note I have greeted and performed a focused rapid initial assessment of this patient. A comprehensive ED assessment and evaluation of the patient, analysis of all test results, and completion of the medical deci nahum-making process will be conducted by additional ED providers. Presentation Chief Complaint Flank pain R, Flank pain L Free Text HPI Notes Free Text HPI Notes 52 Y/O MALE WITH HX OF RENAL DISEASE, AND LIVER DISEASE PRESENTS WITH BILATERAL FLANK PAIN THAT BEGAN 2 WEEKS AGO, WAS SEEN AT [facility] AND GIVEN TRAMADOL FOR PAIN, PT DOES NOT WANT TO TAKE IT FOR FEAR OF BE COMING ADDICTED. PT HAS NOT FOLLOWED UP. ALLERGY TO PCN, AND SULFA. Review of Systems Basic Review of Systems Basic ROS EYES: No redness, ENT: No sore throat, RESP: No SOB, CV: No chest pain , HEM: No bleeding/bruising, NEURO: No change MS, NEURO: No focal deficit, PSYCH : NL thought content Focused Review of Systems Constitutional Denies: Chills, Fever, Lethargy. GI Denies: Abdominal pain, Diarrhea, Nausea, Vomiti ng. Male Reports: Flank pain. Musculoskeletal Denies: Back pain, Extremity pain. Skin Denies: Diaphoresis, Rash. Past Medical History - Adult Stated Complaint ABDOMINAL PAIN Allergies Coded Allergies: Penicillins (UNKNOWN 10/22/17) Sulfa (Sulfonamide Antibiotics) (UNKNOWN 8) Home Medications Reported Medications QUEtiapine (SEROquel) 400 MG PO DAILY traZODone (DESYREL) 100 MG PO BEDTIME ZOLPIDEM (AMBIEN) 10 MG PO BEDTIME ESCITALOPRAM (LEXAPRO) 20 MG PO BID LISINOPRIL (ZESTRIL) 5 MG PO DAILY busPIRone (BUSPAR) 15 MG PO DAILY APIXABAN (ELIQUIS) 5 MG PO BID ESOMEPRAZOLE MAG DR (NexIUM) 40 MG PO DAILY Past Medical History: Reports: Kidney disease/stones. Additional Medical History Bipolar disorder, CKD Additional Surgical History None Additional Family History None Alcohol Use Denies EtOH use Drug Use Denies recreational drugs Other Social History Homeless Physical Exam Vital Signs Vital Signs First Documented: Result Date Time Pulse Ox 99 04/20 0024 B/P 124/85 / 0024 B/P Mean 98 04/20 0024 Temp 98.1 04/20 0024 Pulse 101 04/20 0024 Resp 15 04/20 0024 Last Documented: Result Date Time Pulse Ox 99 04/20 0024 B/P 124/85 04/20 0024 B/P Mean 98 04/20 0024 Temp 98.1 04/20 0024 Pulse 101 04/20 0024 Resp 15 04/20 0024 Review of Vital Signs Reviewed Focused PE General/Const General/Const Awake, Alert, No acute distress Skin Skin Atraumatic, Color NL Genitourinary General Exam deferred Additional PE Neurologic Neurologic Oriented X3, Speech NL Psychiatric Psychiatric Affect NL, Mood NL Interpretation Diagnostics Lab Results Interpretation Results Laboratory Tests 04/20/1849: [Embedded Image Not Available] Laboratory Tests: 04/20 49 Coagulation INR 0.9 PTT ([place]) (23.4 - 37.0 SECONDS) 24.5 PT Patient/Control Mix (9.2 - 12.1 SECONDS) 9.7 Hematology WBC (5.0 - 12.0 x10 3/uL) 13.3 H RBC (4.70 - 6.10 x10 6/uL) 4.11 L Hgb (14.0 - 18.0 g/dL) 11.5 L Hct (37.0 - 49.0 %) 37.1 MCV (80 - 94 fL) 90 MCH (27 - 31 pg) 28.0 MCHC (33 - 37 g/dL) 31.0 L RDW (11.5 - 15.5 %) 14.8 Plt Count (130 - 400 x10 3/uL) 198 MPV (9.4 - 16.4 fL) 10.1 Neut % (Auto) (43 - 65 %) 65.3 H Lymph % (Auto) (20.5 - 45.5 %) 24.1 [place] % (Auto) (5.5 - 11.7 %) 7.6 Eos % (Auto) (0.9 - 2.9 %) 2.2 Baso % (Auto) (0.2 - 1.0 %) 0.2 Neut # (Auto) (2.2 - 4.8 x10 3/uL) 8.66 H Lymph # (Auto) (1.3 - 2.9 x10 3/uL) 3.20 H [place] # (Auto) (0.3 - 0.8 x10 3/uL) 1.01 H Eos # (Auto) (0.0 - 0.2 x10 3/uL) 0.29 H Baso # (Auto) (0.0 - 0.1 x10 3/uL) 0.03 Immature Gran % (0.0 - 2.0 %) 0.6 Nucleated RBC % (0 - 1.0 %) 0.0 Urines Urine Color (Yellow) Colorless Urine Appearance (Clear) Clear Urine pH (5.0 - 8.0) 6.0 Ur Specific [place] (<1.030) 1.002 Urine Protein (Negative mg/dL) NEGATIVE Urine Glucose (UA) (Negative) Negative Urine Ketones (Negative mg/dL) Negative Urine Blood (Negative) 1+ H Urine Nitrite (Negative) Negative Urine Bilirubin (Negative) Negative Urine Urobilinogen (Negative mg/dL) Negative Ur Leukocyte Esterase (Negative) TRACE H Urine RBC (<4 - 5 /HPF) 0-3 Urine WBC (<4 - 5 /HPF) 0-3 Ur Squamous Epith Cells (0 - 5 (RARE) /HPF) 0-5 (RARE) Recent Impressions: CAT SCAN - CT ABD PELVIS W/O CONT 04/20 0001 Report Impression - Status: SIGNED Entered: 04/20/2018 0026 IMPRESSION: No acute abnormality in the abdomen or pelvis. N o nephrolithiasis or hydronephrosis. LOCATION: B2 This CT exam was performed according to our depa rtmental dose optimization program, which includes automated e xposure control, adjustment of the mA and or kV according to hayder ent size and/or use of iterative reconstruction technique. Impression By: Jill Jean MD Point of Care Testing Pulse Oximetry Pulse Ox % 99 On: Room air Interpretation Interpreted by me, Pulse oximetr y normal Re-Evaluation MDM Free Text MDM Notes Free Text MDM Notes PT LEFT ED WITHOUT NOTIFYING STAFF. Patient Discharge Departure Vital Signs/Condition Vital Signs First Documented: Result Date Time Pulse Ox 99 / 0024 B/P 124/85 02/06 0024 B/P Mean 98 02/06 0024 Temp 98.1 02/06 0024 Pulse 101 02/06 0024 Resp 15 / 0024 Last Documented: Result Date Time Pulse Ox 99 02/ 0024 B/P 124/85 02/06 0024 B/P Mean 98 02/06 0024 Temp 98.1 02/06 0024 Pulse 101 02/06 0024 Resp 15 / 0024 All vital signs available at the time of this en try have been reviewed. Clinical Impression Clinical Impression Primary Impression: Left against medical advice Secondary Impressions: Eloped from emergency dep artment Disposition Decision Other )( Time 0230 )( Date 04/20/18 Electronically Signed by Josr Sanchez NP on at 0348 RPT #:[id number] END OF REPORT 2018-04-19 [facility] 23:52:00-00:00 [facility] ([facility]) EMERGENCY PROVIDER REPORT REPORT#:[id number] REPORT STATUS: Signed DATE:04/19/18 TIME: 2351 PATIENT: JEOVANY BUCKLEY UNIT #: [id number] ROOM/BED: AGE: 52 SEX: M PCP PHYS: No Primary or Family Ph ysician SERVICE AUTHOR: Josr Sanchez NP * ALL edits or amendments must be made on the el [employer]/computer document * HPI- Male General Confirmed Patient Yes Initial Greet Date/Time 04/19/18 2336 Provider in Triage Greet Note I have greeted and performed a focused rapid initial assessment of this patient. A comprehensive ED assessment and evaluation of the patient, analysis of all test results, and completion of the medical deci nahum-making process will be conducted by additional ED providers. Presentation Chief Complaint Flank pain R, Flank pain L Free Text HPI Notes Free Text HPI Notes 52 Y/O MALE WITH HX OF RENAL DISEASE, AND LIVER DISEASE PRESENTS WITH BILATERAL FLANK PAIN THAT BEGAN 2 WEEKS AGO, WAS SEEN AT [facility] AND GIVEN TRAMADOL FOR PAIN, PT DOES NOT WANT TO TAKE IT FOR FEAR OF BE COMING ADDICTED. PT HAS NOT FOLLOWED UP. ALLERGY TO PCN, AND SULFA. Review of Systems Basic Review of Systems Basic ROS EYES: No redness, ENT: No sore throat, RESP: No SOB, CV: No chest pain , HEM: No bleeding/bruising, NEURO: No change MS, NEURO: No focal deficit, PSYCH : NL thought content Focused Review of Systems Constitutional Denies: Chills, Fever, Lethargy. GI Denies: Abdominal pain, Diarrhea, Nausea, Vomiti ng. Male Reports: Flank pain. Musculoskeletal Denies: Back pain, Extremity pain. Skin Denies: Diaphoresis, Rash. Past Medical History - Adult Stated Complaint ABDOMINAL PAIN Allergies Coded Allergies: Penicillins (UNKNOWN 10/22/17) Sulfa (Sulfonamide Antibiotics) (UNKNOWN 8) Home Medications Reported Medications QUEtiapine (SEROquel) 400 MG PO DAILY traZODone (DESYREL) 100 MG PO BEDTIME ZOLPIDEM (AMBIEN) 10 MG PO BEDTIME ESCITALOPRAM (LEXAPRO) 20 MG PO BID LISINOPRIL (ZESTRIL) 5 MG PO DAILY busPIRone (BUSPAR) 15 MG PO DAILY APIXABAN (ELIQUIS) 5 MG PO BID ESOMEPRAZOLE MAG DR (NexIUM) 40 MG PO DAILY Past Medical History: Reports: Kidney disease/stones. Additional Medical History Bipolar disorder, CKD Additional Surgical History None Additional Family History None Alcohol Use Denies EtOH use Drug Use Denies recreational drugs Other Social History Homeless Physical Exam Vital Signs Vital Signs First Documented: Result Date Time Pulse Ox 99 04/20 0024 B/P 124/85 04/20 0024 B/P Mean 98 04/20 0024 Temp 98.1 04/20 0024 Pulse 101 04/20 0024 Resp 15 04/204 Last Documented: Result Date Time Pulse Ox 99 04/20 0024 B/P 124/85 02/06 0024 B/P Mean 98 04/20 23 Temp 98.1 04/20 23 Pulse 101 04/20 23 Resp 15 04/20 23 Review of Vital Signs Reviewed Focused PE General/Const General/Const Awake, Alert, No acute distress Skin Skin Atraumatic, Color NL Genitourinary General Exam deferred Additional PE Neurologic Neurologic Oriented X3, Speech NL Psychiatric Psychiatric Affect NL, Mood NL Interpretation Diagnostics Lab Results Interpretation Results Laboratory Tests 04/20/1849: [Embedded Image Not Available] Laboratory Tests: 04/20 49 Coagulation INR 0.9 PTT (Eddie) (23.4 - 37.0 SECONDS) 24.5 PT Patient/Control Mix (9.2 - 12.1 SECONDS) 9.7 Hematology WBC (5.0 - 12.0 x10 3/uL) 13.3 H RBC (4.70 - 6.10 x10 6/uL) 4.11 L Hgb (14.0 - 18.0 g/dL) 11.5 L Hct (37.0 - 49.0 %) 37.1 MCV (80 - 94 fL) 90 MCH (27 - 31 pg) 28.0 MCHC (33 - 37 g/dL) 31.0 L RDW (11.5 - 15.5 %) 14.8 Plt Count (130 - 400 x10 3/uL) 198 MPV (9.4 - 16.4 fL) 10.1 Neut % (Auto) (43 - 65 %) 65.3 H Lymph % (Auto) (20.5 - 45.5 %) 24.1 [place] % (Auto) (5.5 - 11.7 %) 7.6 Eos % (Auto) (0.9 - 2.9 %) 2.2 Baso % (Auto) (0.2 - 1.0 %) 0.2 Neut # (Auto) (2.2 - 4.8 x10 3/uL) 8.66 H Lymph # (Auto) (1.3 - 2.9 x10 3/uL) 3.20 H [place] # (Auto) (0.3 - 0.8 x10 3/uL) 1.01 H Eos # (Auto) (0.0 - 0.2 x10 3/uL) 0.29 H Baso # (Auto) (0.0 - 0.1 x10 3/uL) 0.03 Immature Gran % (0.0 - 2.0 %) 0.6 Nucleated RBC % (0 - 1.0 %) 0.0 Urines Urine Color (Yellow) Colorless Urine Appearance (Clear) Clear Urine pH (5.0 - 8.0) 6.0 Ur Specific [place] (<1.030) 1.002 Urine Protein (Negative mg/dL) NEGATIVE Urine Glucose (UA) (Negative) Negative Urine Ketones (Negative mg/dL) Negative Urine Blood (Negative) 1+ H Urine Nitrite (Negative) Negative Urine Bilirubin (Negative) Negative Urine Urobilinogen (Negative mg/dL) Negative Ur Leukocyte Esterase (Negative) TRACE H Urine RBC (<4 - 5 /HPF) 0-3 Urine WBC (<4 - 5 /HPF) 0-3 Ur Squamous Epith Cells (0 - 5 (RARE) /HPF) 0- 5 (RARE) Recent Impressions: CAT SCAN - CT ABD PELVIS W/O CONT 04/20 0001 Report Impression - Status: SIGNED Entered: 04/20/2018 0026 IMPRESSION: No acute abnormality in the abdomen or pelvis. N o nephrolithiasis or hydronephrosis. LOCATION: B2 This CT exam was performed according to our depa rtmental dose optimization program, which includes automated e xposure control, adjustment of the mA and or kV according to hayder ent size and/or use of iterative reconstruction technique. Impression By: 16 - Dahse, Jill BARDALES Point of Care Testing Pulse Oximetry Pulse Ox % 99 On: Room air Interpretation Interpreted by me, Pulse oximetr y normal Re-Evaluation MDM Free Text MDM Notes Free Text MDM Notes PT LEFT ED WITHOUT NOTIFYING STAFF. Patient Discharge Departure Vital Signs/Condition Vital Signs First Documented: Result Date Time Pulse Ox 99 04/20 0024 B/P 124/85 04/20 0024 B/P Mean 98 04/20 0024 Temp 98.1 04/20 0024 Pulse 101 04/20 0024 Resp 15 04/20 23 Last Documented: Result Date Time Pulse Ox 99 04/20 0024 B/P 124/85 04/20 0024 B/P Mean 98 04/20 0024 Temp 98.1 04/20 0024 Pulse 101 04/20 0024 Resp 15 04/20 0024 All vital signs available at the time of this en try have been reviewed. Clinical Impression Clinical Impression Primary Impression: Left against medical advice Secondary Impressions: Eloped from emergency dep artment Disposition Decision Other )( Time 0230 )( Date 04/20/18 Electronically Signed by Josr Sanchez NP on at 0348 RPT #:[id number] END OF REPORT 2018-04-19 [facility] 23:52:00-00:00 [facility] ([facility]) EMERGENCY PROVIDER REPORT REPORT#:[id number] REPORT STATUS: Signed DATE:04/19/18 TIME: 2351 PATIENT: JEOVANY BUCKLEY UNIT #: [id number] ROOM/BED: AGE: 52 SEX: M PCP PHYS: No Primary or Family P hysician SERVICE AUTHOR: Josr Sanchez WILDERNESS GUIDE * ALL edits or amendments must be made on the el [employer]/computer document * Josr Sanchez 04/19/182351: HPI- Male General Confirmed Patient Yes Provider in Triage Greet Note I have greeted and performed a focused rapid initial assessment of this patient. A comprehensive ED assessment and evaluation of the patient, analysis of all test results, and completion of the medical deci nahum-making process will be conducted by additional ED providers. Presentation Chief Complaint Flank pain R, Flank pain L Free Text HPI Notes Free Text HPI Notes 52 Y/O MALE WITH HX OF RENAL DISEASE, AND LIVER DISEASE PRESENTS WITH BILATERAL FLANK PAIN THAT BEGAN 2 WEEKS AGO, WAS SEEN AT [facility] AND GIVEN TRAMADOL FOR PAIN, PT DOES NOT WANT TO TAKE IT FOR FEAR OF BE COMING ADDICTED. PT HAS NOT FOLLOWED UP. ALLERGY TO PCN, AND SULFA. Review of Systems Basic Review of Systems Basic ROS EYES: No redness, ENT: No sore throat, RESP: No SOB, CV: No chest pain , HEM: No bleeding/bruising, NEURO: No change MS, NEURO: No focal deficit, PSYCH : NL thought content Focused Review of Systems Constitutional Denies: Chills, Fever, Lethargy. GI Denies: Abdominal pain, Diarrhea, Nausea, Vomiti ng. Male Reports: Flank pain. Musculoskeletal Denies: Back pain, Extremity pain. Skin Denies: Diaphoresis, Rash. Past Medical History - Adult Stated Complaint ABDOMINAL PAIN Allergies Coded Allergies: Penicillins (UNKNOWN 10/22/17) Sulfa (Sulfonamide Antibiotics) (UNKNOWN 8) Home Medications Reported Medications QUEtiapine (SEROquel) 400 MG PO DAILY traZODone (DESYREL) 100 MG PO BEDTIME ZOLPIDEM (AMBIEN) 10 MG PO BEDTIME ESCITALOPRAM (LEXAPRO) 20 MG PO BID LISINOPRIL (ZESTRIL) 5 MG PO DAILY busPIRone (BUSPAR) 15 MG PO DAILY APIXABAN (ELIQUIS) 5 MG PO BID ESOMEPRAZOLE MAG DR (NexIUM) 40 MG PO DAILY Past Medical History: Reports: Kidney disease/stones. Additional Medical History Bipolar disorder, CKD Additional Surgical History None Additional Family History None Alcohol Use Denies EtOH use Drug Use Denies recreational drugs Other Social History Homeless Physical Exam Vital Signs Vital Signs First Documented: Result Date Time Pulse Ox 99 04/20 0024 B/P 124/85 04/20 0024 B/P Mean 98 04/20 0024 Temp 98.1 04/20 0024 Pulse 101 04/20 0024 Resp 15 04/20 0024 Last Documented: Result Date Time Pulse Ox 99 04/20 0024 B/P 124/85 04/20 0024 B/P Mean 98 04/20 0024 Temp 98.1 04/20 0024 Pulse 101 04/20 0024 Resp 15 04/20 0024 Review of Vital Signs Reviewed Focused PE General/Const General/Const Awake, Alert, No acute distress Skin Skin Atraumatic, Color NL Genitourinary General Exam deferred Additional PE Neurologic Neurologic Oriented X3, Speech NL Psychiatric Psychiatric Affect NL, Mood NL Interpretation Diagnostics Lab Results Interpretation Results Laboratory Tests 04/20/18 0050: [Embedded Image Not Available] Laboratory Tests: 04/20 49 Coagulation INR 0.9 PTT (Eddie) (23.4 - 37.0 SECONDS) 24.5 PT Patient/Control Mix (9.2 - 12.1 SECONDS) 9.7 Hematology WBC (5.0 - 12.0 x10 3/uL) 13.3 H RBC (4.70 - 6.10 x10 6/uL) 4.11 L Hgb (14.0 - 18.0 g/dL) 11.5 L Hct (37.0 - 49.0 %) 37.1 MCV (80 - 94 fL) 90 MCH (27 - 31 pg) 28.0 MCHC (33 - 37 g/dL) 31.0 L RDW (11.5 - 15.5 %) 14.8 Plt Count (130 - 400 x10 3/uL) 198 MPV (9.4 - 16.4 fL) 10.1 Neut % (Auto) (43 - 65 %) 65.3 H Lymph % (Auto) (20.5 - 45.5 %) 24.1 [place] % (Auto) (5.5 - 11.7 %) 7.6 Eos % (Auto) (0.9 - 2.9 %) 2.2 Baso % (Auto) (0.2 - 1.0 %) 0.2 Neut # (Auto) (2.2 - 4.8 x10 3/uL) 8.66 H Lymph # (Auto) (1.3 - 2.9 x10 3/uL) 3.20 H [place] # (Auto) (0.3 - 0.8 x10 3/uL) 1.01 H Eos # (Auto) (0.0 - 0.2 x10 3/uL) 0.29 H Baso # (Auto) (0.0 - 0.1 x10 3/uL) 0.03 Immature Gran % (0.0 - 2.0 %) 0.6 Nucleated RBC % (0 - 1.0 %) 0.0 Urines Urine Color (Yellow) Colorless Urine Appearance (Clear) Clear Urine pH (5.0 - 8.0) 6.0 Ur Specific [place] (<1.030) 1.002 Urine Protein (Negative mg/dL) NEGATIVE Urine Glucose (UA) (Negative) Negative Urine Ketones (Negative mg/dL) Negative Urine Blood (Negative) 1+ H Urine Nitrite (Negative) Negative Urine Bilirubin (Negative) Negative Urine Urobilinogen (Negative mg/dL) Negative Ur Leukocyte Esterase (Negative) TRACE H Urine RBC (<4 - 5 /HPF) 0-3 Urine WBC (<4 - 5 /HPF) 0-3 Ur Squamous Epith Cells (0 - 5 (RARE) /HPF) 0-5 (RARE) Recent Impressions: CAT SCAN - CT ABD PELVIS W/O CONT 04/20 0001 Report Impression - Status: SIGNED Entered: 04/20/2018 0026 IMPRESSION: No acute abnormality in the abdomen or pelvis. N o nephrolithiasis or hydronephrosis. LOCATION: B2 This CT exam was performed according to our depa rtmental dose optimization program, which includes automated e xposure control, adjustment of the mA and or kV according to hayder ent size and/or use of iterative reconstruction technique. Impression By: Shree Keating, Jill BARDALES Point of Care Testing Pulse Oximetry Pulse Ox % 99 On: Room air Interpretation Interpreted by me, Pulse oximetr y normal Re-Evaluation MDM Free Text MDM Notes Free Text MDM Notes PT LEFT ED WITHOUT NOTIFYING STAFF. Patient Discharge Departure Vital Signs/Condition Vital Signs First Documented: Result Date Time Pulse Ox 99 04/20 0024 B/P 124/85 02/ 0024 B/P Mean 98 02/ 0024 Temp 98.1 02/ 0024 Pulse 101 02/06 0024 Resp 15 02/ 0024 Last Documented: Result Date Time Pulse Ox 99 / 0024 B/P 124/85 02/06 0024 B/P Mean 98 02/06 0024 Temp 98.1 02/ 0024 Pulse 101 02/06 0024 Resp 15 02/06 0024 All vital signs available at the time of this en try have been reviewed. Clinical Impression Clinical Impression Primary Impression: Left against medical advice Secondary Impressions: Eloped from emergency dep artment Disposition Decision Other )( Time 0230 )( Date 04/20/18 Eitan Emanuel 04/22/18 1507: HPI- Male General Initial Greet Date/Time 04/19/18 2336 Physical Exam Vital Signs Vital Signs Interpretation Diagnostics Lab Results Interpretation Results Patient Discharge Departure Vital Signs/Condition Vital Signs Supervising Physician Note MidLv Saw Pt Alone I have reviewed the PA/WILDERNESS GUIDE's note and plan of car e. I was available for consultation as needed at al l times during the patient's visit in the emergency department. I agree with the clinical impression , plan and disposition. Electronically Signed by Josr Sanchez NP on at 0348 at 1501 RPT #:[id number] END OF REPORT 2018-04-06 [facility] 13:04:00-00:00 [facility]) EMERGENCY PROVIDER REPORT REPORT#:[id number] REPORT STATUS: Signed DATE:04/06/18 TIME: 1304 PATIENT: JEOVANY BUCKLEY UNIT #: [id number] ROOM/BED: AGE: 52 SEX: M PCP PHYS: No Primary or Family Ph ysician SERVICE AUTHOR: Sheron Couch MD * ALL edits or amendments must be made on the [employer]/computer document * HPI-Back Pain 40 and Over General Confirmed Patient Yes Initial Greet Date/Time 04/06/18 1300 Presentation Chief Complaint Pain, flank bilat Hx Obtained From Patient Sudden in Onset? No Onset Occurred Weeks ago Symptom Duration Since onset Progression since Onset Unchanged Caused by No trauma by history Location Flank bilat Quality Painful Radiation Does not radiate. Migration/Movement None Severity: Onset Moderate Severity: Current Moderate Associated with Reports: Abdominal pain, Hematuria. Associated Other headache Exacerbated by Nothing Relieved by Nothing Free Text HPI Notes Free Text HPI Notes 52 y/o M presents to the ED with a CC bilateral flank pain that started a couple of months ago. Pt reports a headache and hematuria. Pt came to the ED at the end of February for similar symptoms. Pt states he h as not followed up with a primary care physician yet. PMHx kidney failure. Portions of this section were scribed by Ese Bassett on 04/06/18 at 1505 Risk-Back Pain 40 and Over Risk Stratification )( Abdominal Aortic Aneurysm Risk factors review ed, No risk factors )( Thoracic Aortic Dissection Risk factors revie wed, No risk factors Portions of this section were scribed by Ese Bassett on 04/06/18 at 1304 Review of Systems ROS Statements All systems rev neg except as marked. Focused Review of Systems Constitutional Denies: Chills, Fatigue, Fever. Respiratory Denies: Cough, non-productive, Cough, productive , Shortness of breath. Cardiovascular Denies: Chest pain, Palpitations. GI Reports: Abdominal pain. Denies: Diarrhea. Male Reports: Hematuria. Denies: Dysuria. Musculoskeletal Reports: Back pain. Denies: Extremity pain. Neurologic Denies: Change LOC, Confusion. Additional Review of Systems Eyes Denies: Discharge bilat, Redness bilat. Ears/Nose/Throat Denies: Nose bleeding, Sore throat. Skin Denies: Diaphoresis, Laceration. Portions of this section were scribed by Ese Bassett on 04/06/18 at 1304 Past Medical History - Adult Stated Complaint BACK PAIN, HEAD ACHE, VOMITING Allergies Coded Allergies: Penicillins (UNKNOWN 10/22/17) Sulfa (Sulfonamide Antibiotics) (UNKNOWN 8) Home Medications Reported Medications QUEtiapine (SEROquel) 400 MG PO DAILY traZODone (DESYREL) 100 MG PO BEDTIME ZOLPIDEM (AMBIEN) 10 MG PO BEDTIME ESCITALOPRAM (LEXAPRO) 20 MG PO BID LISINOPRIL (ZESTRIL) 5 MG PO DAILY busPIRone (BUSPAR) 15 MG PO DAILY APIXABAN (ELIQUIS) 5 MG PO BID ESOMEPRAZOLE MAG DR (NexIUM) 40 MG PO DAILY Pt reports no significant: P ast surgical history, Family history, Social history Past Medical History: Reports: Kidney disease/stones. Portions of this section were scribed by Ese Bassett on 04/06/18 at 1304 Physical Exam Vital Signs Vital Signs First Documented: Result Date Time Pulse Ox 99 04/06 1252 B/P 125/61 04/06 1252 B/P Mean 82 04/06 1252 O2 Delivery Room air 04/06 1252 Temp 98.0 04/06 1252 Pulse 90 04/06 1252 Resp 18 04/06 1252 Last Documented: Result Date Time Pulse Ox 98 04/06 1522 B/P 118/74 04/06 1522 B/P Mean 88 04/06 1522 Pulse 89 04/06 1522 Resp 14 04/06 1522 O2 Delivery Room air 04/06 1252 Temp 98.0 04/06 1252 Review of Vital Signs Reviewed Focused PE General/Const General/Const Awake, Alert, No acute distress MS Neck Neck Atraumatic, Supple, No meningismus, Full r ashley of motion, Non-tender Resp/Chest Respiratory/Chest Breath sounds NL, Breath soun ds = bilat, No respiratory distress Cardiovascular Cardiovascular Heart rate NL, Regular rhythm, H eart sounds NL Abdomen/GI Abdomen/GI Atraumatic, Soft, BS normoactive, No distention Tenderness/Guarding/Rebound Tender diffuse (mild). MS Back Back Atraumatic, Inspection NL, No midline vert ebral tend MS Lower Extrem Lower Ext/Pelvis/MS Inspection NL, Full range o f motion, Non-tender Text/Dict Notes 5 out of 5 strength Skin Skin Atraumatic, Color NL, Warm, Dry, Intact Neurologic Neurologic Oriented X3, Speech NL, No motor def icits, No sensory deficits Text/Dict Notes no incontinence Sensory Deficit Negative: Saddle anesthesia. Additional PE MS Head Head Atraumatic, Normocephalic Eyes Eyes Atraumatic, PERRL, EOMI Ears/Nose/Throat Ears/Nose/Throat Airway patent, Mucous membrane s moist, Pharynx NL MS Upper Extrem Upper Extremity/MS Inspection NL, Full range of motion, Non-tender Psychiatric Psychiatric Affect NL, Mood NL Portions of this section were scribed by Ese Bassett on 04/06/18 at 1505 Interpretation Diagnostics Lab Results Interpretation Results Laboratory Tests 04/06/18 1330: [Embedded Image Not Available] Laboratory Tests: 04/06 04/06 1410 1335 Blood Gas VBG Total CO2 (21 - 32 MMOL/L) 25 Ionized Calcium (1.13 - 1.32 mmol/L) 1.24 Instrument (Specimen Descript) VENOUS SPECIMEN Chemistry POC Sodium (135 - 148 MMOL/L) 138 POC Potassium (3.5 - 5.9 MMOL/L) 5.4 POC Chloride (98 - 106 MMOL/L) 107 H Anion Gap (10 - 20 MEQ/L) 13.0 POC BUN (8 - 28 MG/DL) 26 POC Creatinine (0.6 - 1.2 MG/DL) 2.0 H Estimated GFR (MDRD) (56 - 130) 36 L POC Glucose (70 - 119 MG/DL) 76 Urines Urine Color (YELLOW DESCRIPT) COLORLESS Urine Appearance (CLEAR DESCRIPT) CLEAR Urine pH (4.6 - 8.0 pH UNITS) 7.0 Ur Specific [place] (1.001 - 1.035 SG) 1.004 Urine Protein (<30 (1+) mg/dL) NEGATIVE (0) Urine Glucose (UA) ((NEG) 0 mg/dL) NEGATIVE (0) Urine Ketones ((NEG) 0 mg/dL) 0 (NEG) Urine Blood ((NEG) 0 mg/DL) NEGATIVE (0) Urine Nitrite (NEG SCREEN) NEGATIVE (0) Urine Bilirubin ((NEG) 0 mg/dL) NEGATIVE (0) Urine Urobilinogen (<2.0 (1+) mg/Dl) NORMAL (0) Ur Leukocyte Esterase ((NEG) 0 Leuk/mcL) NEGATI VE (0) Urine RBC (0 - 3 #RBC/HPF) NONE Urine WBC (0 - 3 #WBC/HPF) 0-3 Urine Bacteria (NONE - FEW /HPF) TRACE >0 Urine Mucus (NONE /LPF) RARE 04/06 1330 Chemistry Total Bilirubin (0.00 - 1.00 MG/DL) 0.14 Direct Bilirubin (0.00 - 0.30 MG/DL) < 0.10 Indirect Bilirubin (0.2 - 1.3 MG/DL) 0.14 L AST (15 - 37 Unit/L) 19 ALT (12 - 78 Unit/L) 18 Total Alk Phosphatase (45 - 117 Unit/L) 127 H Troponin I (0.000 - 0.045 NG/ML) < 0.015 Total Protein (6.4 - 8.2 G/DL) 6.7 Albumin (3.4 - 5.0 G/DL) 3.4 Lipase (114 - 286 Unit/L) 271 Specimen Appearance (1 NORMAL Index/DL) 1 AALIYAH L <2 MG Specimen Hemolysis (1 NORMAL Index/DL) 3 SMALL 25-50 MG Hematology WBC (4.1 - 12.1 K/mm3) 8.7 RBC (3.8 - 5.5 M/mm3) 3.88 Hgb (10.6 - 15.8 G/DL) 11.3 Hct (36.0 - 47.4 %) 35.9 L MCV (80.1 - 101.1 fL) 92.5 MCH (25.3 - 35.3 pg) 29.1 MCHC (32.7 - 35.1 G/DL) 31.5 L RDW (12.2 - 16.4 %) 15.3 Plt Count (155 - 337 K/mm3) 198 MPV (7.6 - 10.4 fL) 10.0 Recent Impressions: RADIOLOGY - XR CHEST 1 V 04/06 1314 Report Impression - Status: SIGNED Entered: 04/06/2018 1330 IMPRESSION: Partial inspiration. No active disea se. Impression By: Lyle - Mili Mata CAT SCAN - CT ABD PELVIS W/CONT 04/06 1415 Report Impression - Status: SIGNED Entered: 04/06/2018 1444 IMPRESSION: Questionable relative wall thickening and faint fat stranding at the terminal ileum, otherwise no significant finding . No nephrolithiasis or hydronephrosis. Impression By: [email or web address] - Erichsharon Russell M.D. Point of Care Testing Pulse Oximetry Pulse Ox % 99 On: Room air Interpretation Interpreted by me, Pulse oximetr y normal Time 1252 Portions of this section were scribed by Ese Bassett on 04/06/18 at 1459 Re-Evaluation MDM Free Text MDM Notes Free Text MDM Notes On 03/03/18 Pt was seen in the ED for fl ank pain, labs showed creatine of 1.86 with hx of CKD. CT, chest xray, and urine were n egative. Re-Evaluation/Progress #1 Text/Dict Note Pt re-evaluated. Pt's sympto ms have improved. Discussed significant lab findings , imaging results, and plans for discharge. Pt given strict at home instructions and return precautions. Pt is comfortable with p [facility] care. All concerns addressed. Time of Re-Eval 1459 ED Course Medication(s) Ordered Medication(s) Ordered: Central Nervous System Agents Sig/Melany Start time Last Medication Dose Route Stop Time Status Admin Hydrocodone Bitart/ 1 TAB X1ED STA 04/06 1508 D C Acetaminophen PO 04/06 1509 Morphine Sulfate 4 MG X1ED STA 04/06 1308 DC IV 04/06 1309 1325 Gastrointestinal Drugs Sig/Melany Start time Last Medication Dose Route Stop Time Status Admin Ondansetron HCl 4 MG X1ED PRN PRN 04/06 1315 D C 04/06 IV 1324 Portions of this section were scribed by Ese Bassett on 04/06/18 at 1459 Patient Discharge Departure Vital Signs/Condition Vital Signs First Documented: Result Date Time Pulse Ox 99 04/06 1252 B/P 125/61 04/06 1252 B/P Mean 82 04/06 1252 O2 Delivery Room air 04/06 1252 Temp 98.0 04/06 1252 Pulse 90 04/06 1252 Resp 18 04/06 1252 Last Documented: Result Date Time Pulse Ox 98 04/06 1522 B/P 118/74 01/23 1522 B/P Mean 88 04/06 1522 Pulse 89 04/06 1522 Resp 14 04/06 1522 O2 Delivery Room air 04/06 1252 Temp 98.0 04/06 1252 All vital signs available at the time of this en try have been reviewed. Condition Improved Clinical Impression Clinical Impression Primary Impression: Bilateral flank pain Disposition Decision Discharge )( Discharged to Home Yes )( Time 1500 )( Date 04/06/18 Free Text Depart Notes Free Text Depart Notes 52 yo M p/w flank and abd pa in for months, seem for same in feb, ct non con neg, labs neg, never got f/u though he has access (me dicare). pt wants to do a ct with con, we discussed risks of contrast, he understands, will go ahead. ct with pos sinflamm near ileium, discussed. req pain me d. plan: outpt follow up and close retunr precautions. Supervising Physician Note Scribe Statement Ese Bassett, 04/06/18 1 309, scribing for and in the presence of [Sheron Couch]. Signed By: Ese Bassett, 04/06/18 1309 Provider Scribed Statement I personally performed the s ervices described in this documentation and reviewed the documentation that was dictated to the scrib e(s) in my presence, and it accurately records my words and actions. Oscar Couch, 04/06/18 Portions of this section were scribed by Ese Bassett on 04/06/18 at 1505 Electronically Signed by Sheron Couch MD on at 1525 RPT #:[id number] END OF REPORT 2018-01-03 Patient Name: JEOVANY BUCKLEY [facility] 14:59:00-00:00 : 1965; Age: 52 years y/o Male MR: [id number] Study: Ext Lower Venous Doppler Bilat US [...] junction is unremarkable. IMPRESSION: No DVT SL: OLIVIER 2018-01-03 Patient Name: JEOVANY BUCKLEY [facility] 14:59:00-00:00 : 1965; Age: 52 years y/o Male MR: [id number] Study: Ext Lower Venous Doppler Bilat US [...] junction is unremarkable. IMPRESSION: No DVT SL: [email or web address] 2017-12-31 Clinical Indication: Left knee pain for 2 to 3 w eeks with vomiting. [facility] 21:04:00-00:00 Comparison: CT of the abdomen and pelvis [...] 2. No evidence of obstructive uropathy. Left igor al cyst. 3. Evidence of prior cholecystectomy. 4. Small hiatal hernia. SL: EVITA 2017-12-31 Clinical Indication: Left knee pain for 2 to 3 w eeks with vomiting. [facility] 21:04:00-00:00 Comparison: CT of the abdomen and pelvis [...] 2. No evidence of obstructive uropathy. Left igor al cyst. 3. Evidence of prior cholecystectomy. 4. Small hiatal hernia. SL: EVITA 2017-12-12 Clinical Indication: - Post Noemi fluid accumula tion. [facility] 19:45:00-00:00 Comparison: CT abdomen pelvis 12/12/2017 TECHNIQUE: Hepatobiliary scan is perfor med using 5 mCi of Tc-99m Choletec, [...] evidence of bile leak status post cholecystectomy : [id number] 2017-12-12 Clinical Indication: - Post Noemi fluid accumula tion. [facility] 19:45:00-00:00 Comparison: CT abdomen pelvis 12/12/2017 TECHNIQUE: Hepatobiliary scan is perfor med using 5 mCi of Tc-99m Choletec, [...] of bile leak status post cholecystectomy SL: [id number] 2017-12-12 Clinical indication: - flank pain [facility] 16:13:00-00:00 Comparison: CT abdomen pelvis 11/27/2017 TECHNIQUE: Volumetric [...] umbilicus. IMPRESSION: 1. Post surgical change of c holecystectomy with a 2.8 x 3 x 3.7 cm fluid collection in the cholecystectomy bed containing a small locule of air. Differential considerations include hematoma or biloma. Superimposed infection cannot be excluded. 2. Atrophic bilateral kidney s with left renal cyst and too small to characterize renal hypodensities. 3. Small hiatal hernia. KIKA: NENA 2017-12-12 Clinical indication: - flank pain [facility] 16:13:00-00:00 Comparison: CT abdomen pelvis 11/27/2017 TECHNIQUE: Volumetric [...] umbilicus. IMPRESSION: 1. Post surgical change of c holecystectomy with a 2.8 x 3 x 3.7 cm fluid collection in the cholecystectomy bed containing a small locule of air. Differential considerations include hematoma or biloma. Superimposed infection cannot be excluded. 2. Atrophic bilateral kidney s with left renal cyst and too small to characterize renal hypodensities. 3. Small hiatal hernia. SL: NENA 2017-11-30 Clinical Indication: - Gallstones [facility] 13:38:00-00:00 Comparison: CT and ultrasound performed 11/28/19 FINDINGS: [...] Fluoroscopic images from cholangiogram, as noted above. : [id number] 2017-11-30 Clinical Indication: - Gallstones [facility] 13:38:00-00:00 Comparison: CT and ultrasound performed 11/28/19 FINDINGS: [...] Fluoroscopic images from cholangiogram, as noted above. : [id number] 2017-11-30 Clinical Indication: Renal i nsufficiency - EVAL FOR MEDICO RENAL DISEASE [facility] 10:17:00-00:00 Comparison: None TECHNIQUE: Multiple longitudinal and tr [...] is maintained. There is no hydronephrosis, nephrolithiasis, o r abnormal perinephric colle ctions. There is increased parenchymal echogenicity of the right kidney. BLADDER: Scanning through the pelvis reveals the bladder to be partially distended with anechoic urine. AORTA AND IVC: The visualized portions appe ar unremarkable. The common iliac arteries are not well visualized due to overlying bowel gas. ASCITES: No ascites noted. IMPRESSION: 1. Nonvisualized left kidney due to overlying meenakshi wel gas. 2. Increased parenchymal ech ogenicity of the right kidney suggesting medical renal disease. : [id number] 2017-11-30 Clinical Indication: Renal i nsufficiency - EVAL FOR MEDICO RENAL DISEASE [facility] 10:17:00-00:00 Comparison: None TECHNIQUE: Multiple longitudinal and tr [...] is maintained. There is no hydronephrosis, nephrolithiasis, o r abnormal perinephric colle ctions. There is increased parenchymal echogenicity of the right kidney. BLADDER: Scanning through the pelvis reveals the bladder to be partially distended with anechoic urine. AORTA AND IVC: The visualized portions appe ar unremarkable. The common iliac arteries are not well visualized due to overlying bowel gas. ASCITES: No ascites noted. IMPRESSION: 1. Nonvisualized left kidney due to overlying meenakshi wel gas. 2. Increased parenchymal ech ogenicity of the right kidney suggesting medical renal disease. SL: [id number] 2017-11-29 EXAM: VQ scan [facility] 13:19:00-00:00 HISTORY: Chest pain, history of pulmonary emboli sm COMPARISON: Chest radiograph same day TECHNIQUE: 10 [...] in both lungs may reflect COPD. SL: [id number] 2017-11-29 EXAM: VQ scan [facility] 13:19:00-00:00 HISTORY: Chest pain, history of pulmonary emboli sm COMPARISON: Chest radiograph same day TECHNIQUE: 10 [...] in both lungs may reflect COPD. SL: [id number] 2017-11-29 Clinical Indication: - chest pain [facility] 11:07:00-00:00 Comparison: 05/23/2017 FINDINGS: The frontal chest radiograph shows normal lung volumes without interstitial or airspace opacities, pleural effusions or pneumothorax. The cardiomediastinal contours are normal. The t rachea is midline. There are no clinically significant osseous abno rmalities noted. IMPRESSION: No chest radiographic evidence of acute cardiopu lmonary disease. SL: [id number] 2017-11-29 Clinical Indication: - chest pain [facility] 11:07:00-00:00 Comparison: 05/23/2017 FINDINGS: The frontal chest radiograph shows normal lung volumes without interstitial or airspace opacities, pleural effusions or pneumothorax. The cardiomediastinal contours are normal. The t rachea is midline. There are no clinically significant osseous abno rmalities noted. IMPRESSION: No chest radiographic evidence of acute cardiopu lmonary disease. SL: [id number] 2017-11-27 Clinical Indication: - R scar ed abd pain, elevated wbc, possible cholecystitis clinically [facility] 07:37:00-00:00 Comparison: None TECHNIQUE: Helical imaging w as [...] colonic stool burden. The abdominal aorta is aaliyah l in course without focal aneurysmal dilation. Mild to moderate atherosclerotic calcifications present at the abdominal aorta. The lumbosacral spine appears intact. IMPRESSION: 1. Mild gallbladder distenti on, measuring up to 8.5 cm in diameter with a gallstone dependently in the gallbladder lumen no overt gallbladder wall thickening or pericholecystic fluid identified on this examination. If there is per sistent clinical concern for acute cholecystitis, may consider clinical history medicine HIDA scan for further evaluation. 2. Mild to moderate atrophic changes of the bilateral kidneys, suggesting sequela of chronic renal disease. 3. No bowel obstruction. Nonvisualization of the appendix. 4. Small, sliding hiatal hernia. 5. Trace subsegmental atelec tasis versus scarring present at the dependent aspect of the right lower lobe. SL: [id number] 2017-11-27 Clinical Indication: - R scar ed abd pain, elevated wbc, possible cholecystitis clinically [facility] 07:37:00-00:00 Comparison: None TECHNIQUE: Helical imaging w as [...] colonic stool burden. The abdominal aorta is aaliyah l in course without focal aneurysmal dilation. Mild to moderate atherosclerotic calcifications present at the abdominal aorta. The lumbosacral spine appears intact. IMPRESSION: 1. Mild gallbladder distenti on, measuring up to 8.5 cm in diameter with a gallstone dependently in the gallbladder lumen no overt gallbladder wall thickening or pericholecystic fluid identified on this examination. If there is per sistent clinical concern for acute cholecystitis, may consider clinical history medicine HIDA scan for further evaluation. 2. Mild to moderate atrophic changes of the bilateral kidneys, suggesting sequela of chronic renal disease. 3. No bowel obstruction. Nonvisualization of the appendix. 4. Small, sliding hiatal hernia. 5. Trace subsegmental atelec tasis versus scarring present at the dependent aspect of the right lower lobe. SL: [id number] 2017-11-27 Abdominal Ultrasound Limited [facility] 04:57:00-00:00 HISTORY: - ruq pain. Nausea and vomiting. [...] caliber. Limited evaluation of the pancreas. SL: CARLITOS 2017-11-27 Abdominal Ultrasound Limited [facility] 04:57:00-00:00 HISTORY: - ruq pain. Nausea and vomiting. [...] caliber. Limited evaluation of the pancreas. SL: [id number] 2017-05-23 EXAM: US RIGHT LOWER EXTREMITY VENOUS DOPPLER [facility] 22:40:00-00:00 DATE: 05/23/2017 9:07 PM T [facility] er INDICATION: - RLE pain and [...] at 2302 hours by telephone. [place] SECTION: [facility] 2017-05-23 EXAM: US RIGHT LOWER EXTREMITY VENOUS DOPPLER [facility] 22:40:00-00:00 DATE: 05/23/2017 9:07 PM T [facility] er INDICATION: - RLE pain and [...] at 2302 hours by telephone. [place] SECTION: [facility] 2017-05-23 EXAM: XR CHEST 1 VIEW [facility] 21:37:00-00:00 DATE: 05/23/2017 at 2137 hours Ce nter [...] abnormality is identified. IMPRESSION: No acute cardiopulmonary abnormality . 2017-05-23 EXAM: XR CHEST 1 VIEW [facility] 21:37:00-00:00 DATE: 05/23/2017 at 2137 hours Ce nter [...]
--- NOTE | 2022-11-06 12:23 | ER ---
Nurse's Notes [facility] Name: Jeovany Buckley Age: 57 yrs Sex: Male : 1965 Arrival Date: 11/06/2022 Time: 11:57 Bed 13 Private MD: Diagnosis: Hiatal hernia Presentation: 11/06 12:14 Chief complaint: Brought in custody of [place] equal opportunity officer, needs clearance for hb transfer to [facility], pt reports "hernia in chest" while pointing to abdomen. Coronavirus screen: At this time, the client does not indicate any symptoms associated with coronavirus-19. Ebola Screen: No symptoms or risks identified at this time. Initial Sepsis Screen: Does the patient meet any 2 criteria? No. Patient's initial sepsis screen is negative. Does the patient have a suspected source of infection? No. Patient's initial sepsis screen is negative. Risk Assessment: Do you want to hurt yourself or someone else? Patient reports no desire to harm self or others. Onset of symptoms is unknown. 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 - Family history:: not pertinent. - Social history:: Smoking status: unknown. - Hospitalizations: : No recent hospitalization is reported. Screenin:30 [facility] ED Fall Risk Assessment (Adult) History of falling in the last 3 months, db including since admission No falls in past 3 months (0 pts) Confusion or Disorientation No (0 pts) Intoxicated or Sedated No (0 pts) Impaired Gait No (0 pts) Mobility Assist Device Used No (0 pt) Altered Elimination No (0 pt) Score/Fall Risk Level 0 - 2 = Low Risk Oriented to surroundings, Maintained a safe environment. Abuse screen: Denies threats or abuse. Denies injuries from another. Nutritional screening: No deficits noted. Tuberculosis screening: No symptoms or risk factors identified. Assessment: 12:47 Reassessment: Patient appears in no apparent distress at this time. Patient and/or db family updated on plan of care and expected duration. Pain level reassessed. Patient is alert, oriented x 3, equal unlabored respirations, skin warm/dry/pink. General: Appears in no apparent distress. Behavior is anxious. Pain: Denies pain. Neuro: Level of Consciousness is awake, alert, obeys commands, Oriented to person, place, time, situation. Vital Signs: 12:14 BP 143 / 85; Pulse 88; Resp 16; Temp 98; Pulse Ox 97% on R/A; Pain 0/10; hb 12:30 BP 106 / 88; Pulse 78; Resp 16; Pulse Ox 100% on R/A; db 12:14 Pain Scale: Adult hb ED Course: 11:59 Patient arrived in ED. rg4 12:07 Ciro Delgado MD is Attending Physician. rn 12:15 Triage completed. hb 12:16 Arm band placed on. hb 12:22 Octavio Madrigal MD is Referral Physician. rn 12:30 Patient has correct armband on for positive identification. Bed in low position. Call db light in reach. Side rails up X 1. Provided Education on: DISCHARGE IN POLICE CUSTODY. 12:30 No provider procedures requiring assistance completed. Patient did not have IV access db during this emergency room visit. 12:34 Pari Shen, RN is Primary Nurse. db Administered Medications: No medications were administered Medication: 12:30 VIS not applicable for this client. db Outcome: 12:22 Discharge ordered by . rn 12:30 Discharged to Law Enforcement db 12:30 Condition: stable 12:30 Discharge instructions given to police. 13:07 Patient left the ED. db Signatures: Ciro Delgado MD MD rn Baxter, Heather, RN RN hb Garcia, Rubi rg4 Pari Shen RN RN db
--- NOTE | 2022-11-06 12:23 | EDPHYS ---
Physician Documentation [facility] Name: Jeovany Buckley Age: 57 yrs Sex: Male : 1965 Arrival Date: 11/06/2022 Time: 11:57 Bed 13 Private MD: ED Physician Ciro Delgado HPI: 11/06 12:19 This 57 yrs old Male presents to ER via Law Enforcement with complaints of rn Hernia/Medical Clearance. 12:19 Pt arrested today, told police has abdominal hernia, so brought here for medical rn clearance. Patient denies any new symptoms. Reports told to f/u with specialist in [place], sounds like hiatal hernia, no vomiting, having bowel movements. No acute changes. Reports takes famotidine. No GI bleeding. . Severity of symptoms: At their worst the symptoms were mild in the emergency department the symptoms are unchanged. The patient has experienced similar episodes in the past, chronically. The patient has not recently seen a physician. Historical: - Allergies: 12:15 PENICILLINS; hb 12:15 Sulfa (Sulfonamide Antibiotics); hb - PMHx: 12:15 Kaveh's Disease; DVT; RLE; Hypertension; liver damage; Renal Disease; Bipolar hb disorder; - Immunization history:: Adult Immunizations unknown. - Family history:: not pertinent. - Social history:: Smoking status: unknown. - Hospitalizations: : No recent hospitalization is reported. ROS: 12:19 Constitutional: Negative for fever, chills, and weight loss, Cardiovascular: Negative rn for chest pain, palpitations, and edema, Respiratory: Negative for shortness of breath, cough, wheezing, and pleuritic chest pain, Abdomen/GI: + upper abdominal aching and acid reflux. MS/Extremity: Negative for injury and deformity, Skin: Negative for injury, rash, and discoloration, Neuro: Negative for headache, weakness, numbness, tingling, and seizure. Exam: 12:19 Constitutional: Thin male, no acute distress, pressured speech. Cardiovascular: rn Regular rate and rhythm. No pulse deficits. Abdomen/GI: soft, no focal tenderness, no distension, no hernias of umbilical or inguinal regions. Vital Signs: 12:14 BP 143 / 85; Pulse 88; Resp 16; Temp 98; Pulse Ox 97% on R/A; Pain 0/10; hb 12:30 BP 106 / 88; Pulse 78; Resp 16; Pulse Ox 100% on R/A; db 12:14 Pain Scale: Adult hb MDM: 12:07 Patient medically screened. rn 12:23 Differential Diagnosis hiatal hernia. Data reviewed: vital signs, nurses notes, and as rn a result, I will discharge patient. Counseling: I had a detailed discussion with the patient and/or guardian regarding the historical points, exam findings, and any diagnostic results supporting the discharge/admit diagnosis, the need for outpatient follow up, to return to the emergency department if symptoms worsen or persist or if there are any questions or concerns that arise at home. ED course: Patient without acute complaints, no indication for emergent imaging. Patient medically cleared. Given return precautions. . Administered Medications: No medications were administered Disposition Summary: 11/06/22 12:22 Discharge Ordered Location: Home rn Problem: chronic rn Symptoms: are unchanged rn Condition: Stable rn Diagnosis - Hiatal hernia rn Followup: rn - With: Octavio Madrigal MD - When: As needed - Reason: Recheck today's complaints, Re-evaluation by your physician Discharge Instructions: - Discharge Summary Sheet rn - Hiatal Hernia rn Forms: - Medication Reconciliation Form rn - Thank You Letter rn - Antibiotic wax pattern repairer - Prescription Opioid Use rn - Patient Portal Instructions rn - Leadership Thank You Letter rn Signatures: Ciro Delgado MD MD rn Baxter, Heather, RN RN hb Benton, Danielle RN RN db
[2022-11-06 13:35] VITALS: BP 143/85; TEMP 98; O2SAT 97
== END 2022-11-06 13:07 | disposition home or self-care (01) ==
LOC: ER 11:57
DX: K44.9 Diaphragmatic hernia without obstruction or gangrene (principal); Z88.0 Allergy status to penicillin; Z88.2 Allergy status to sulfonamides
CPT/HCPCS: 99282

== ENCOUNTER 2024-05-15 01:09 | Emergency (ER) | payer OTHER ==
[2024-05-15 01:58] LABS: Absolute Eosinophils 0.2 K/uL (0-0.5); Absolute Lymphocytes (CBC) 1.8 K/uL (0.7-4.9); Absolute Monocytes 0.7 K/uL (0.1-1.3); Basophils % 0.4 % (0-1.3); Eosinophils % 1.7 % (0-4.4); Hematocrit 27.7 % (39.6-49.0); Hemoglobin 9.1 g/dL (13.6-17.9); Lymphocytes % 18.9 % (15.3-44.8); MCH 29.6 pg (27.0-35.0); MCHC 32.9 g/dL (32.0-36.0); MCV 89.9 fL (80-100); MPV 6.6 fL (7.6-11.3); Monocytes % 6.7 % (3.3-12.3); Neutrophils % 72.3 % (41.7-73.7); Nucleated Red Blood Cells % 0.1 % (0-0); Platelets 243 thou/uL (152-406); RBC Red Blood Cell Count 3.08 M/uL (4.33-5.43); Red Cell Distribution Width 22.5 % (12.1-15.2)
[2024-05-15 02:14] LABS: PT Prothrombin Time 12.7 SECONDS (10.0-13.0); Protime INR 1.12
[2024-05-15 02:21] LABS: ALT/SGPT < 14 U/L (16-61); AST/SGOT 13 U/L (15-37); Albumin 3.3 g/dL (3.4-5.0); Albumin/Globulin Ratio 0.9 (1.1-1.8); Alkaline Phosphatase 140 U/L (45-117); Anion Gap 9.5 mEq/L (5.0-15.0); BUN Blood Urea Nitrogen 16 mg/dL (7-18); Bicarbonate 20 mEq/L (21-32); Bilirubin Direct < 0.2 mg/dL (0-0.2); Bilirubin Indirect, Calculated 0.1 mg/dL (0.2-0.8); Bilirubin Total 0.3 mg/dL (0.2-1.0); Globulin 3.5 g/dL (2.3-3.5); Glomerular Filtration Rate 28 ml/min (=/>90); Glucose Level 140 mg/dL (74-106); Magnesium 1.7 mg/dL (1.6-2.4); NT PRO-BNP 401 pg/mL (<125); Potassium 3.5 mEq/L (3.5-5.1); Protein, Total 6.8 g/dL (6.4-8.2); Sodium Level 136 mEq/L (136-145); Troponin High Sensitivity 7.9 pg/mL (<58.9)
[2024-05-15 02:46] LABS: Anisocytosis 2+; Blood Morphology Comment NOTED (NOT SEEN); Ovalocytes 2+; Platelet Estimate ADEQ; White Blood Cell Scan OK (OK)
--- NOTE | 2024-05-15 03:31 | RAD REPORT ---
PROCEDURE: US EXTREMITY VEINS UNILATERAL INDICATION: Pain. COMPARISON: None. TECHNIQUE: Grayscale, color and spectral Doppler ultrasound evaluation of left lower extremity veins was performed. FINDINGS: Common femoral vein: Compressible, normal phasic waveform, color flow with augmentation. Femoral vein: Compressible, normal phasic waveform, color flow with augmentation. Popliteal vein: Noncompressible. Echogenic thrombus is present. No flow on Doppler imaging. Minimal s pectral Doppler waveform is detected. Posterior tibial vein: Partially compressible. Echogenic thrombus is present. There is no color flow and minimal spectral waveform on Doppler interrogation. Great saphenous vein/Saphenofemoral junction: Compressible, normal phasic waveform. IMPRESSION: Occlusive deep venous thrombosis in left popliteal and posterior tibial veins. Electronically signed by: Karen Canseco MD 05/15/2024 03:28 AM [facility] Due to temporary technical issues with the PACS/Pricing Assistant scribe reporting system, reports are being signed by the in-house radiologist without review as a courtesy to ensure prompt reporting the interpreting radiologist is fully responsible for the content of the report. Transcribed Date/Time: 05/15/2024 3:31 AM
--- NOTE | 2024-05-15 03:45 | RAD REPORT ---
ADDENDUM #1 THIS REPORT CONTAINS FINDINGS THAT MAY BE CRITICAL TO PATIENT CARE: The findings were verbally discus sed via telephone conference with Dr. Eric Russell at 3:46 AM REPEAT PHOTOCOMPOSING MACHINE OPERATOR on 05/15/2024. Electronically signed by: Bhavin Villanueva MD 05/15/2024 03:50 AM REPEAT PHOTOCOMPOSING MACHINE OPERATOR End of Addendum EXAM DESCRIPTION: Chest For Pe Angio 05/15/2024 3:38 AM REPEAT PHOTOCOMPOSING MACHINE OPERATOR CLINICAL HISTORY: 58 years, Male, CHEST PAIN COMPARISON: None TECHNIQUE: Multiple transaxial tomograms of the chest were obtained from the lung apices through the lung bases after the administration of large bolus of IV contrast for complete opacification of the pulmonary arteries. Subsequent to 2-D and 3-D multiplanar reformats and maximum intensity projection images were generate d in the sagittal and coronal planes. An individualized dose optimization technique, Automated Exposure Control, was utilized for the perfo rmed procedure. Contrast: Intravenous contrast was administered. FINDINGS: Neck base: Visualized thyroid gland and soft tissues are normal. No adenopathy. CTA: Diagnostic quality: Adequate for assessment of the subsegmental pulmonary arteries. The pulmonary arteries are adequately opacified. There is partial filling defects within the right lower pulmonary artery extending into the posterior segment proximal segmental right lower lobe on axial image [id number] pulmonary embolus. The right upper lobe and left lung demonstrate to be unremarkable with no filling defects. No evidence for righ t ventricular strain. No acute finding in the thoracic aorta. CHEST: Lungs: The lung parenchyma demonstrate to be clear. No significant pulmonary nodules, masses and/or c onsolidations. Airways: The trachea mainstem bronchus demonstrate to be within normal limits. Pleura: No evidence for significant pleural effusions. The diaphragms are well positioned. There is n o evidence for pneumothorax. Mediastinum and isaiah: There is no significant mediastinal and/or hilar lymphadenopathy. The axillary regions demonstrate to be clear. Heart: Normal size. No pericardial thickening or effusion. Vessels: Coronary: No significant coronary artery calcifications. Aorta: The thoracic aorta demonstrate to be within normal limits. No evidence for aneurysm. Other: Several partial filling defects corresponding to pulmonary embolus. See above Osseous structures: The thoracic spine demonstrate to be within normal limits. No evidence for compre ssion deformities and/or significant skeletal lesions. Musculoskeletal: No soft tissue and/or musculoskeletal abnormality. Visualized upper abdomen: The visualized portions of the upper abdomen demonstrate status post cholec ystectomy. Distended fluid-filled stomach. IMPRESSION: Partial filling defects within the right lower pulmonary artery extending into the posterior segment proximal segmental right lower lobe pulmonary embolus. No evidence for right ventricular strain. Electronically signed by: Bhavin Villanueva MD 05/15/2024 03:41 AM [facility] Due to temporary technical issues with the PACS/Favim reporting system, reports are being drew d by the in-house radiologist without review as a courtesy to ensure prompt reporting the interpreting radiologist is fully responsible for the content of the report. Transcribed Date/Time: 05/15/2024 3:53 AM
[2024-05-15] MEDS ORDERED: HEPARIN/D5W 0 UNIT/0 ML BAG IV ONE (03:55)
[2024-05-15] MEDS ORDERED: HEPARIN 5000 UNIT/ML 1 ML VIAL ONE (03:55)
--- NOTE | 2024-05-15 03:58 | EDPHYS ---
Physician Documentation [facility] Name: Jeovany Buckley Age: 58 yrs Sex: Male : 1965 Arrival Date: 05/15/2024 Time: 01:09 Bed 8 Private MD: ED Physician Eric Russell HPI: 05/15 01:48 This 58 yrs old Male presents to ER via Wheelchair with complaints of Leg Pain, sp3 Nausea/Vomiting. 01:48 58-year-old male with a history of prior DVT, hypertension, bipolar disease, sp3 Kaveh's disease presents to the ED with left lower extremity calf pain started insidiously over the last 24 hours. States the pain radiates up into his abdomen and chest. No history of prior PE. He denies any substernal chest pain, shortness of breath, back pain, or any other signs or symptoms on ROS at this time.. Historical: - Allergies: 01:29 PENICILLINS; ha1 01:29 Sulfa (Sulfonamide Antibiotics); ha1 - Home Meds: 01:29 lisinopril 5 mg Oral tab 1 tab once daily [Active]; Eliquis 2.5 mg Oral tab 1 tab once ha1 a day [Active]; Stool Softener 50 mg Oral cap 1 cap once daily [Active]; rosuvastatin 20 mg Oral cpSP 1 cap once daily [Active]; Multivitamin 50 Plus Oral tab [Active]; escitalopram oxalate 20 mg Oral tab 1 tab once daily [Active]; trazodone 100 mg Oral tab 1 tab once daily [Active]; quetiapine 400 mg Oral tab 1 tab 2 times per day [Active]; buspirone 10 mg Oral tab 1 tab [Active]; - PMHx: 01:29 Bipolar disorder; DVT; RLE; Kaveh's Disease; Hypertension; liver damage; Renal ha1 Disease; - Immunization history:: Client reports having NOT received the Covid vaccine. Flu vaccine is not up to date. - Infectious Disease History:: Denies. - Social history:: Smoking status: Patient reports the use of cigarette tobacco products, smokes one-half pack cigarettes per day. ROS: 01:49 Constitutional: Negative for fever, chills, and weight loss, Eyes: Negative for injury, sp3 pain, redness, and discharge, Neck: Negative for injury, pain, and swelling, Cardiovascular: Negative for chest pain, palpitations, and edema, Respiratory: Negative for shortness of breath, cough, wheezing, and pleuritic chest pain, Abdomen/GI: Negative for abdominal pain, nausea, vomiting, diarrhea, and constipation, Skin: Negative for injury, rash, and discoloration, Neuro: Negative for headache, weakness, numbness, tingling, and seizure, Psych: Negative for depression, anxiety, suicide ideation, homicidal ideation, and hallucinations, Allergy/Immunology: Negative for hives, rash, and allergies, Endocrine: Negative for neck swelling, polydipsia, polyuria, polyphagia, and marked weight changes, 01:49 All other systems are negative, Exam: 01:49 Constitutional: This is a well developed, well nourished patient who is awake, alert, sp3 and in no acute distress. Head/Face: Normocephalic, atraumatic. Eyes: Pupils equal round and reactive to light, extra-ocular motions intact. Lids and lashes normal. Conjunctiva and sclera are non-icteric and not injected. Cornea within normal limits. Periorbital areas with no swelling, redness, or edema. Neck: Trachea midline, no thyromegaly or masses palpated, and no cervical lymphadenopathy. Supple, full range of motion without nuchal rigidity, or vertebral point tenderness. No Meningismus. Chest/axilla: Normal chest wall appearance and motion. Nontender with no deformity. No lesions are appreciated. Cardiovascular: Regular rate and rhythm with a normal S1 and S2. No gallops, murmurs, or rubs. Normal PMI, no JVD. No pulse deficits. Respiratory: Lungs have equal breath sounds bilaterally, clear to auscultation and percussion. No rales, rhonchi or wheezes noted. No increased work of breathing, no retractions or nasal flaring. Abdomen/GI: Soft, non-tender, with normal bowel sounds. No distension or tympany. No guarding or rebound. No evidence of tenderness throughout. Back: No spinal tenderness. No costovertebral tenderness. Full range of motion. Skin: Warm, dry with normal turgor. Normal color with no rashes, no lesions, and no evidence of cellulitis. Neuro: Awake and alert, GCS 15, oriented to person, place, time, and situation. Cranial nerves II-XII grossly intact. Motor strength 5/5 in all extremities. Sensory grossly intact. Cerebellar exam normal. Normal gait. Psych: Awake, alert, with orientation to person, place and time. Behavior, mood, and affect are within normal limits. 01:49 Musculoskeletal/extremity: Pain to palpation left calf. Distal neurovascular exam normal.. 02:38 ECG was reviewed by the Attending Physician. EKG demonstrates normal sinus rhythm at 98 sp3 bpm with first-degree AV block with NJ interval 216, QTc 428, leftward axis, normal QRS and nonspecific diffuse ST/T changes without evidence of acute ischemia. Vital Signs: 01:29 BP 111 / 82; Pulse 110; Resp 20; Temp 98.2(O); Pulse Ox 100% on R/A; Weight 62.6 kg; ha1 Height 5 ft. 10 in. ; 02:58 BP 112 / 84; Pulse 95; Resp 18; Temp 98.2; Pulse Ox 100% ; Pain 0/10; bm8 04:01 BP 117 / 75; Pulse 107; Resp 19 S; Pulse Ox 99% on R/A; ha1 04:36 bm8 01:29 Body Mass Index 19.80 (62.60 kg, 177.8 cm) ha1 02:58 Pain Scale: Adult bm8 04:36 PT DECLINED LAST VITALS bm8 Kristina Coma Score: 02:58 Eye Response: spontaneous(4). Motor Response: obeys commands(6). Verbal Response: bm8 oriented(5). Total: 15. 04:36 Eye Response: spontaneous(4). Motor Response: obeys commands(6). Verbal Response: bm8 oriented(5). Total: 15. MDM: 01:32 Medical Screening Exam initiated sp3 01:49 Data reviewed: vital signs, nurses notes, old medical records, lab test result(s), EKG, sp3 radiologic studies. ED course: 58-year-old male with left calf pain then radiating "up his body". Differential diagnosis includes DVT, electrolyte abnormality, musculoskeletal pain, PE, ACS, among others. Patient is tachycardic. Will obtain ultrasound of the left lower extremity, CT chest PE protocol, labs, EKG and general supportive care. Disposition pending workup patient course.. 03:55 ED course: Patient with positive DVT and positive PE without right heart strain. sp3 Heparin drip started IV and patient will be admitted.. 04:35 ED course: Patient is leaving AGAINST MEDICAL ADVICE secondary to his service dog. We sp3 have reiterated to him that his risks of leaving include , disability, pain and suffering, loss of life and limb, and patient still wants to leave. We have urged him to return. He says he will be back after he takes care of his dog. Patient is not suicidal, homicidal or appear to be responding to internal stimuli or psychosis. Both me, patient's nurse and charge nurse have been in the room and pleaded with him to stay. He does not meet criteria for SHAYLA. Patient leaving as we speak. Heparin drip not started.. 05/15 01:17 Order name: CBC with Diff; Complete Time: 02:59 sp3 05/15 01:46 Order name: Basic Metabolic Panel; Complete Time: 02:59 sp3 05/15 01:46 Order name: LFT's; Complete Time: 02:59 sp3 05/15 01:46 Order name: Magnesium; Complete Time: 02:59 sp3 05/15 01:46 Order name: NT PRO-BNP; Complete Time: 02:59 sp3 05/15 01:46 Order name: PT-INR; Complete Time: 14:29 sp3 05/15 01:46 Order name: Troponin HS; Complete Time: 02:59 sp3 05/15 02:04 Order name: CBC Smear Scan; Complete Time: 02:59 EDMS 05/15 04:00 Order name: PTT, Activated Partial Thromb; Complete Time: 14:29 EDMS 05/15 01:46 Order name: US Extremity Venous Unilateral Ltd; Complete Time: 14:29 sp3 05/15 01:46 Order name: CT Chest For PE Angio; Complete Time: 14:29 sp3 05/15 01:17 Order name: Labs collected and sent; Complete Time: 02:20 sp3 05/15 01:46 Order name: Cardiac monitoring; Complete Time: 02:12 sp3 05/15 01:46 Order name: EKG - Nurse/Tech; Complete Time: 02:20 sp3 05/15 01:46 Order name: IV Saline Lock; Complete Time: 02:12 sp3 05/15 01:46 Order name: Labs collected and sent; Complete Time: 02:12 sp3 05/15 01:46 Order name: O2 Per Protocol; Complete Time: 02:12 sp3 05/15 01:46 Order name: O2 Sat Monitoring; Complete Time: 02:12 sp3 Administered Medications: 01:22 CANCELLED (error): morphineor iv 4 mg IVP once over 4 mins sp3 01:22 CANCELLED (error): ondansetron 4 mg IVP once; over 2 minutes sp3 04:39 Not Given (Patient Refused): Heparin (DVT/PE- Bolus per protocol) - [id number] units/kg bm8 IVP once; Max 8,000 units 04:39 Not Given (Patient Refused): Heparin (DVT/PE Drip) - ([id number] units, [id number] ml) 18 bm8 units/kg/hr IV at calculated rate Per protocol; Max initial rate 1800 units/hr Disposition Summary: 05/15/24 04:37 Left Against Medical Advice Notes: Location: Home(05/15/24 04:37) sp3 Problem: new(05/15/24 04:37) sp3 Symptoms: have worsened(05/15/24 04:37) sp3 Condition: Undetermined(05/15/24 04:37) sp3 Diagnosis - Pulmonary embolism, DVT sp3 Followup: sp3 - With: Emergency Department - When: Upon discharge from the Emergency Department - Reason: Critical care time excluding procedures: 03:56 Critical care time: Bedside Care: 20 minutes, Consultation: 10 minutes. Total time: 30 sp3 minutes Signatures: Dispatcher [employer] EDMS Emilio Rivera DO DO ms3 Eric Russell MD MD sp3 Nicole Saunders RN RN vc1 Maribell Quintanilla RN RN ha1 Pedro Baldwin RN bm8 Corrections: (The following items were deleted from the chart) 01:17 01:17 Head C Spine Cap Wo Con+CT.RAD.BRZ ordered. EDMS EDMS 01:17 01:17 CBC+H.LAB.BRZ ordered. EDMS EDMS 01:22 01:17 morphine IVP or IV 4 mg IVP once over 4 mins ordered. sp3 sp3 01:22 01:17 Ondansetron IVP 4 mg IVP once; over 2 minutes ordered. sp3 sp3 01:47 01:46 BASIC METABOLIC PANEL+C.LAB.BRZ ordered. EDMS EDMS 01:47 01:46 HEPATIC FUNCTION+C.LAB.BRZ ordered. EDMS EDMS 01:47 01:46 MAGNESIUM+C.LAB.BRZ ordered. EDMS EDMS 01:47 01:46 PROBNP+C.LAB.BRZ ordered. EDMS EDMS 01:47 01:46 PROTIME (+INR)+COAG.LAB.BRZ ordered. EDMS EDMS 01:47 01:46 Troponin High Sensitivity+C.LAB.BRZ ordered. EDMS EDMS 01:47 01:47 Extremity Venous Uni Ltd+US.RAD.BRZ ordered. EDMS EDMS 01:47 01:47 Chest For PE Angio+CT.RAD.BRZ ordered. EDMS EDMS 02:05 01:17 BASIC METABOLIC PANEL+C.LAB.BRZ ordered. EDMS EDMS 02:05 01:46 CBC+H.LAB.BRZ ordered. EDMS EDMS 03:57 03:55 PTT, ACTIVATED+COAG.LAB.BRZ ordered. EDMS EDMS 04:36 03:57 Inpatient Admission sp3 sp3 04:36 03:57 ngozitimmy Lonny sp3 sp3 04:36 03:57 Telemetry/MedSurg (Inpatient) sp3 sp3 04:36 03:57 Stable sp3 sp3 04:36 03:57 an acute exacerbation sp3 sp3 04:36 03:57 have worsened sp3 sp3 04:36 03:57 Standard sp3 sp3 04:36 03:57 sp3 sp3 04:36 03:57 Pulmonary embolism, DVT sp3 sp3
--- NOTE | 2024-05-15 03:58 | ER ---
Nurse's Notes [facility] Name: Jeovany Buckley Age: 58 yrs Sex: Male : 1965 Arrival Date: 05/15/2024 Time: : Bed 8 Private MD: Diagnosis: Pulmonary embolism, DVT Presentation: 05/15 01:29 Chief complaint: Patient states: CRAMP ON MY LEFT CALF. PAIN RADIATES TO MY BACK. PAIN ha1 IS CAUSING NAUSEA AND VOMITING. : Coronavirus screen: Client denies travel out of the [place] in the last 14 days. Ebola ha1 Screen: No symptoms or risks identified at this time. Initial Sepsis Screen: Does the patient meet any 2 criteria? No. Patient's initial sepsis screen is negative. Does the patient have a suspected source of infection? No. Patient's initial sepsis screen is negative. Risk Assessment: Do you want to hurt yourself or someone else? Patient reports no desire to harm self or others. Onset of symptoms was May 15, 2024. : Method Of Arrival: Wheelchair ha1 :29 Acuity: JED 3 ha1 Triage Assessment: 01:48 General: Appears in no apparent distress. slender, unkempt, Behavior is calm, vc1 cooperative, appropriate for age. Pain: Complains of pain in right leg and left leg. EENT: No deficits noted. No signs and/or symptoms were reported regarding the EENT system. Neuro: Level of Consciousness is awake, alert, obeys commands, Oriented to person, place, time, situation, Appropriate for age. Cardiovascular: Capillary refill < 3 seconds Patient's skin is warm and dry. Respiratory: Airway is patent Respiratory effort is even, unlabored, Respiratory pattern is regular, symmetrical, Breath sounds are clear bilaterally. GI: Reports nausea. : No deficits noted. No signs and/or symptoms were reported regarding the genitourinary system. Derm: Skin is intact, is healthy with good turgor, Skin is dry, Skin is normal, Skin temperature is warm. Musculoskeletal: Circulation, motion, and sensation intact. Range of motion: intact in all extremities. Historical: - Allergies: : PENICILLINS; ha1 : Sulfa (Sulfonamide Antibiotics); ha1 - Home Meds: :29 lisinopril 5 mg Oral tab 1 tab once daily [Active]; Eliquis 2.5 mg Oral tab 1 tab once ha1 a day [Active]; Stool Softener 50 mg Oral cap 1 cap once daily [Active]; rosuvastatin 20 mg Oral cpSP 1 cap once daily [Active]; Multivitamin 50 Plus Oral tab [Active]; escitalopram oxalate 20 mg Oral tab 1 tab once daily [Active]; trazodone 100 mg Oral tab 1 tab once daily [Active]; quetiapine 400 mg Oral tab 1 tab 2 times per day [Active]; buspirone 10 mg Oral tab 1 tab [Active]; - PMHx: 01:29 Bipolar disorder; DVT; RLE; Middle Bass's Disease; Hypertension; liver damage; Renal ha1 Disease; - Immunization history:: Client reports having NOT received the Covid vaccine. Flu vaccine is not up to date. - Infectious Disease History:: Denies. - Social history:: Smoking status: Patient reports the use of cigarette tobacco products, smokes one-half pack cigarettes per day. Screenin:47 [facility] ED Fall Risk Assessment (Adult) History of falling in the last 3 months, vc1 including since admission No falls in past 3 months (0 pts) Confusion or Disorientation No (0 pts) Intoxicated or Sedated No (0 pts) Impaired Gait No (0 pts) Mobility Assist Device Used No (0 pt) Altered Elimination No (0 pt) Score/Fall Risk Level 0 - 2 = Low Risk Oriented to surroundings, Maintained a safe environment, Educated pt \T\ family on fall prevention, incl call for assistance when getting out of bed. Abuse screen: Denies threats or abuse. Nutritional screening: No deficits noted. Tuberculosis screening: No symptoms or risk factors identified. Assessment: 01:29 General: Appears uncomfortable, Behavior is calm, cooperative. Pain: Complains of pain ha1 in left calf Pain radiates to back Pain currently is 9 out of 10 on a pain scale. Quality of pain is described as throbbing. Neuro: Level of Consciousness is awake, alert, obeys commands, Oriented to person, place, time, situation. Cardiovascular: Capillary refill < 3 seconds Patient's skin is warm and dry. Respiratory: No deficits noted. Airway is patent Respiratory effort is even, unlabored, Respiratory pattern is regular, symmetrical. GI: Abdomen is round non-distended, Reports nausea. : No signs and/or symptoms were reported regarding the genitourinary system. Derm: No signs and/or symptoms reported regarding the dermatologic system. Skin is pink, warm \T\ dry. Musculoskeletal: Circulation, motion, and sensation intact. Range of motion: intact in all extremities. 02:50 Reassessment: Patient appears in no apparent distress at this time. No changes from bm8 previously documented assessment. Patient and/or family updated on plan of care and expected duration. Pain level reassessed. Patient is alert, oriented x 3, equal unlabored respirations, skin warm/dry/pink. 02:58 General: pt back from ct. GI: Patient currently denies nausea, vomiting. bm8 04:36 Reassessment: AFTER THIS NURSE, THE CHARGE NURSE AND THE PROVIDER ATTEMPTED TO EXPLAIN bm8 TO PT THAT HE IS AT SERIOUS RISK OF DUE TO HIS NEWLY DIAGNOSED DVT PT STILL DECIDED TO LEAVE AMA. FORM IS SIGNED AND PT IS AWARE OF RISKS. Vital Signs: 01:29 BP 111 / 82; Pulse 110; Resp 20; Temp 98.2(O); Pulse Ox 100% on R/A; Weight 62.6 kg; ha1 Height 5 ft. 10 in. ; 02:58 BP 112 / 84; Pulse 95; Resp 18; Temp 98.2; Pulse Ox 100% ; Pain 0/10; bm8 04:01 BP 117 / 75; Pulse 107; Resp 19 S; Pulse Ox 99% on R/A; ha1 04:36 bm8 01:29 Body Mass Index 19.80 (62.60 kg, 177.8 cm) ha1 02:58 Pain Scale: Adult bm8 04:36 PT DECLINED LAST VITALS bm8 Kristina Coma Score: 02:58 Eye Response: spontaneous(4). Motor Response: obeys commands(6). Verbal Response: bm8 oriented(5). Total: 15. 04:36 Eye Response: spontaneous(4). Motor Response: obeys commands(6). Verbal Response: bm8 oriented(5). Total: 15. ED Course: 01:11 Patient arrived in ED. [id number] 01:14 Eric Russell MD is Attending Physician. sp3 01:35 Maribell Quintanilla RN is Primary Nurse. ha1 01:41 Triage completed. ha1 01:47 Arm band placed on right wrist. vc1 01:48 Patient has correct armband on for positive identification. Bed in low position. Pulse vc1 ox on. NIBP on. 02:18 US Extremity Venous Unilateral Ltd In Process Unspecified. EDMS 02:20 No provider procedures requiring assistance completed. Initial lab(s) drawn, by me, bm8 sent to lab. EKG done, by ED staff, reviewed by Eric Russell MD. Inserted saline lock: 20 gauge in right in left forearm, using aseptic technique. Blood collected. Flushed with 10 mL NS. Patient maintains SpO2 saturation greater than 95% on room air. 02:51 CT Chest For PE Angio In Process Unspecified. EDMS 03:56 Prince Castorena MD is Hospitalizing Provider. sp3 04:36 Provided Education on: ama AND TO RETURN SOON POSSIBLE. bm8 04:36 IV discontinued, intact, bleeding controlled, No redness/swelling at site. Pressure bm8 dressing applied, X2. Administered Medications: 01:22 CANCELLED (error): morphineor iv 4 mg IVP once over 4 mins sp3 01:22 CANCELLED (error): ondansetron 4 mg IVP once; over 2 minutes sp3 04:39 Not Given (Patient Refused): Heparin (DVT/PE- Bolus per protocol) - [id number] units/kg bm8 IVP once; Max 8,000 units 04:39 Not Given (Patient Refused): Heparin (DVT/PE Drip) - ([id number] units, [id number] ml) 18 bm8 units/kg/hr IV at calculated rate Per protocol; Max initial rate 1800 units/hr Medication: 01:48 VIS not applicable for this client. vc1 Outcome: 03:57 Decision to Hospitalize by Provider. sp3 04:36 AMA AMA form signed bm8 04:36 Condition: unchanged 04:36 Discharge instructions given to patient, Instructed on follow up and referral plans. safety practices, Demonstrated understanding of instructions, follow-up care, medications, 04:40 Patient left the ED. bm8 Signatures: Dispatcher [employer] Eric Rivera MD MD sp3 Tori [email or web address] Nicole Saunders RN RN vc1 Maribell Quintanilla RN RN ha1 Pedro Baldwin RN RN bm8 Corrections: (The following items were deleted from the chart) 02:59 02:51 GI: Reports nausea, bm8 bm8
[2024-05-15 04:44] VITALS: TEMP 98.2
[2024-05-15 04:47] VITALS: BP 117/75; O2SAT 99
--- NOTE | 2024-05-15 12:02 | EKG ---
Test Date: 2024-05-15 Test Time: 02:15:55 Set Up And Lay Out Inspector: AF MEASUREMENT RESULTS: Intervals: Rate: 98 MS: 216 QRSD: 82 QT: 336 QTc: 428 [place]ord: P: 41 MS: 216 QRS: -56 T: 61 INTERPRETIVE STATEMENTS: Sinus rhythm with 1st degree AV block Left axis deviation Possible Lateral infarct, age undetermined Inferior infarct, age undetermined Abnormal ECG Compared to ECG 03/21/2021 07:37:08 No significant changes Electronically Signed On 05-15-24 12:01:29 CHIEF DIGITAL MEDIA OFFICER by Leon Hall
== END 2024-05-15 04:40 | disposition left against medical advice (07) ==
LOC: ER 01:09
DX: I26.99 Other pulmonary embolism without acute cor pulmonale (principal); I82.4Z2 Acute embolism and thrombosis of unspecified deep veins of left distal lower extremity; Z86.718 Personal history of other venous thrombosis and embolism; Z86.711 Personal history of pulmonary embolism; Z79.01 Long term (current) use of anticoagulants; I10 Essential (primary) hypertension; F17.210 Nicotine dependence, cigarettes, uncomplicated
CPT/HCPCS: 93005; 85025; 80048; 36415; 83735; 85610; 80076; 85730; 84484; 83880; 71275; 93971; 99284; Q9967; J1644

== ENCOUNTER 2024-05-15 14:53 | Inpatient (IN) | payer OTHER ==
--- NOTE | 2024-05-15 15:43 | EDPHYS ---
Physician Documentation [facility] Name: Jeovany Buckley Age: 58 yrs Sex: Male : 1965 Arrival Date: 05/15/2024 Time: 14:53 Bed 7 Private MD: ED Physician Emilio Rivera HPI: 05/15 16:01 This 58 yrs old Male presents to ER via EMS with complaints of shortness of breath. ms3 16:01 58-year-old male with past medical history of bipolar disorder, DVT, hypertension, ms3 liver damage, renal disease, [place]'s disease presents to the emergency department for shortness of breath. Patient states he was seen in the emergency department last night and diagnosed with DVT and pulmonary embolism and left against medical advice. Patient endorses vomiting. Patient denies chest pain.. Historical: - Allergies: 15:10 PENICILLINS; jb4 15:10 Sulfa (Sulfonamide Antibiotics); jb4 - Home Meds: 15:10 Eliquis 2.5 mg Oral tab 1 tab once a day [Active]; buspirone 10 mg Oral tab 1 tab jb4 [Active]; escitalopram oxalate 20 mg Oral tab 1 tab once daily [Active]; lisinopril 5 mg Oral tab 1 tab once daily [Active]; quetiapine 400 mg Oral tab 1 tab 2 times per day [Active]; Multivitamin 50 Plus Oral tab [Active]; rosuvastatin 20 mg Oral cpSP 1 cap once daily [Active]; Stool Softener 50 mg Oral cap 1 cap once daily [Active]; trazodone 100 mg Oral tab 1 tab once daily [Active]; - PMHx: 15:10 Bipolar disorder; DVT; RLE; Hypertension; liver damage; Renal Disease; Kaveh's jb4 Disease; - Immunization history:: Adult Immunizations up to date. - Infectious Disease History:: Denies. - Social history:: Smoking status: Patient denies any tobacco usage or history of. ROS: 16:01 Constitutional: Negative for fever, and chills. Cardiovascular: Negative for chest ms3 pain, and palpitations. 16:01 Respiratory: Positive for shortness of breath, 16:01 MS/extremity: Positive for Left posterior leg pain, Exam: 16:01 Constitutional: This is a well developed, well nourished patient who is awake, alert, ms3 and in no acute distress. Cardiovascular: Regular rate and rhythm with a normal S1 and S2. No gallops, murmurs, or rubs. Normal PMI, no JVD. No pulse deficits. Respiratory: Lungs have equal breath sounds bilaterally, clear to auscultation and percussion. No rales, rhonchi or wheezes noted. No increased work of breathing, no retractions or nasal flaring. Abdomen/GI: Soft, non-tender, with normal bowel sounds. No distension or tympany. No guarding or rebound. No evidence of tenderness throughout. Skin: Warm, dry with normal turgor. Normal color with no rashes, no lesions, and no evidence of cellulitis. MS/ Extremity: Pulses equal, no cyanosis. Neurovascular intact. Full, normal range of motion. Vital Signs: 15:07 BP 108 / 82; Pulse 94; Resp 16; Temp 97.3(O); Pulse Ox 100% on R/A; Weight 65.77 kg; jb4 Height 5 ft. 10 in. (R); Pain 0/10; 15:48 Weight 68.49 kg (M); jb4 16:30 BP 115 / 91; Pulse 93; Resp 16; Pulse Ox 100% on R/A; jb4 18:00 BP 125 / 89; Pulse 86; Resp 16; Pulse Ox 100% on R/A; jb4 15:07 Body Mass Index 20.81 (68.49 kg, 177.8 cm) jb4 15:07 Pain Scale: Adult jb4 MDM: 15:26 Medical Screening Exam initiated ms3 16:01 Differential diagnosis: pulmonary edema, DVT. Data reviewed: vital signs, nurses notes, ms3 lab test result(s), radiologic studies, CT scan, ultrasound, and as a result, I will admit patient. Consideration of Admission/Observation Patient was admitted/placed on observation. Management of patient was discussed with the following: Hospitalist: Dr. Delgado. I considered the following discharge prescriptions or medication management in the emergency department Medications were administered in the Emergency Department. See MAR. External Records Reviewed: ED record from last night reviewed showing DVT and PE without heart strain. Counseling: I had a detailed discussion with the patient and/or guardian regarding the historical points, exam findings, and any diagnostic results supporting the discharge/admit diagnosis, lab results, the need for further work-up and treatment in the hospital. ED course: Discussed treatment plan and hospitalization with patient. He understands agrees with plan.. 05/15 15:26 Order name: CBC with Diff; Complete Time: 16:04 ms3 05/15 15:26 Order name: CMP; Complete Time: 16:13 ms3 05/15 15:26 Order name: PT-INR; Complete Time: 16:04 ms3 05/15 18:09 Order name: CBC with Automated Diff EDMS 05/15 18:09 Order name: CBC with Automated Diff EDMS 05/15 18:09 Order name: Comprehensive Metabolic Panel EDMS 05/15 18:09 Order name: Comprehensive Metabolic Panel EDMS 05/15 18:09 Order name: Magnesium EDMS 05/15 18:09 Order name: Magnesium EDMS 05/15 18:11 Order name: PTT, Activated Partial Thromb EDMS 05/15 18:11 Order name: PTT, Activated Partial Thromb EDMS 05/15 18:11 Order name: PTT, Activated Partial Thromb EDMS 05/15 18:11 Order name: PTT, Activated Partial Thromb EDMS 05/15 18:11 Order name: PTT, Activated Partial Thromb EDMS 05/15 18:12 Order name: CBC without Diff EDMS 05/15 18:09 Order name: Physical Therapy Consult EDMS Administered Medications: 16:04 Drug: Heparin (DVT/PE Drip) 18 units/kg/hr - ([place] [address] units, D5W IV 500 ml) IV jb4 at calculated rate Per protocol; Max initial rate 1800 units/hr {Co-Signature: gaye (Toya Rider RN).} Route: IV; Rate: calculated rate; Site: right forearm; 19:20 Follow up: IV Status: Infusion continued upon admission jb4 16:09 Drug: Heparin (DVT/PE- Bolus per protocol) - HEParin IVP 80 units/kg IVP once; Max jb4 8,000 units {Co-Signature: gaye (Toya Rider RN).} Route: IVP; Site: right antecubital; 19:21 Follow up: Response: No adverse reaction jb4 Disposition: 16:01 Critical Care:. ms3 Disposition Summary: 05/15/24 15:42 Hospitalization Ordered Notes: Hospitalization Status: Observation ms3 Provider: Demond Delgado ms3 Location: Telemetry/MedSurg (observation) ms3 Condition: Stable ms3 Problem: new ms3 Symptoms: are unchanged ms3 Bed/Room Type: Standard ms3 Room Assignment: 223(05/15/24 18:13) [facility] Diagnosis - Left leg DVT ms3 - Other pulmonary embolism without acute cor pulmonale ms3 - Shortness of breath ms3 Forms: - Medication Reconciliation Form ms3 - SBAR form ms3 - Leadership Thank You Letter ms3 Critical care time excluding procedures: 16:01 Critical care time: Bedside Care: 30 minutes, Consultation: 5 minutes. Total time: 35 ms3 minutes Signatures: Dispatcher [employer] EDMS Josr Ospina RN RN jb4 Heri Quinn RN RN ja1 Emilio Rivera DO DO ms3 Toay Rider RN ss Corrections: (The following items were deleted from the chart) 16:02 16:01 58-year-old male with past medical history of bipolar disorder, DVT, ms3 hypertension, liver damage, renal disease, Kaveh's disease presents to the emergency department for shortness of breath. Patient states he was seen in the emergency department last night and diagnosed with DVT and pulmonary embolism and left AGAINST MEDICAL ADVICE. Patient endorses vomiting. Patient denies chest pain.. ms3 18:09 15:42 ms3 ja1 18:13 18:11 PTT, Activated Partial Thromb ordered. EDTX EDMS 18:13 18:09 416 ja1 ja1
--- NOTE | 2024-05-15 15:43 | ER ---
Nurse's Notes [facility] Name: Jeovany Buckley Age: 58 yrs Sex: Male : 1965 Arrival Date: 05/15/2024 Time: 14:53 Bed 7 Private MD: Diagnosis: Left leg DVT;Other pulmonary embolism without acute cor pulmonale;Shortness of breath Presentation: 05/15 15:07 Chief complaint: EMS states: Pt was to be admitted last night for blood clots in the jb4 left leg and chest but had to go home to take care of his service dog, is coming back today to be admitted. Coronavirus screen: At this time, the client does not indicate any symptoms associated with coronavirus-19. Ebola Screen: No symptoms or risks identified at this time. Initial Sepsis Screen: Does the patient meet any 2 criteria? HR > 90 bpm. Yes Does the patient have a suspected source of infection? No. Patient's initial sepsis screen is negative. Risk Assessment: Do you want to hurt yourself or someone else? Patient reports no desire to harm self or others. Onset of symptoms was May 15, 2024. Transition of care: patient was not received from another setting of care. 15:07 Method Of Arrival: EMS: [facility] jb4 15:07 Acuity: JED 3 jb4 Historical: - Allergies: 15:10 PENICILLINS; jb4 15:10 Sulfa (Sulfonamide Antibiotics); jb4 - Home Meds: 15:10 Eliquis 2.5 mg Oral tab 1 tab once a day [Active]; buspirone 10 mg Oral tab 1 tab jb4 [Active]; escitalopram oxalate 20 mg Oral tab 1 tab once daily [Active]; lisinopril 5 mg Oral tab 1 tab once daily [Active]; quetiapine 400 mg Oral tab 1 tab 2 times per day [Active]; Multivitamin 50 Plus Oral tab [Active]; rosuvastatin 20 mg Oral cpSP 1 cap once daily [Active]; Stool Softener 50 mg Oral cap 1 cap once daily [Active]; trazodone 100 mg Oral tab 1 tab once daily [Active]; - PMHx: 15:10 Bipolar disorder; DVT; RLE; Hypertension; liver damage; Renal Disease; [place]'s jb4 Disease; - Immunization history:: Adult Immunizations up to date. - Infectious Disease History:: Denies. - Social history:: Smoking status: Patient denies any tobacco usage or history of. Screenin:12 [facility] ED Fall Risk Assessment (Adult) History of falling in the last 3 months, jb4 including since admission No falls in past 3 months (0 pts) Confusion or Disorientation No (0 pts) Intoxicated or Sedated No (0 pts) Impaired Gait No (0 pts) Mobility Assist Device Used No (0 pt) Altered Elimination No (0 pt) Score/Fall Risk Level 0 - 2 = Low Risk Oriented to surroundings, Maintained a safe environment. Abuse screen: Denies threats or abuse. Nutritional screening: No deficits noted. Tuberculosis screening: No symptoms or risk factors identified. Assessment: 15:12 General: Appears in no apparent distress. comfortable, Behavior is calm, cooperative, jb4 appropriate for age. Pain: Denies pain. Neuro: Level of Consciousness is awake, alert, obeys commands, Oriented to person, place, time, situation. Cardiovascular: Patient's skin is warm and dry. Respiratory: Airway is patent Respiratory effort is even, unlabored, Respiratory pattern is regular, symmetrical. Derm: Skin is intact, Skin is pink, warm \T\ dry. Musculoskeletal: Circulation, motion, and sensation intact. Range of motion: intact in all extremities. 16:15 Reassessment: Patient appears in no apparent distress at this time. Patient and/or jb4 family updated on plan of care and expected duration. Pain level reassessed. Patient is alert, oriented x 3, equal unlabored respirations, skin warm/dry/pink. 17:15 Reassessment: Patient appears in no apparent distress at this time. Patient and/or jb4 family updated on plan of care and expected duration. Pain level reassessed. Patient is alert, oriented x 3, equal unlabored respirations, skin warm/dry/pink. 18:11 Reassessment: Patient appears in no apparent distress at this time. Patient and/or jb4 family updated on plan of care and expected duration. Pain level reassessed. Patient is alert, oriented x 3, equal unlabored respirations, skin warm/dry/pink. Vital Signs: 15:07 BP 108 / 82; Pulse 94; Resp 16; Temp 97.3(O); Pulse Ox 100% on R/A; Weight 65.77 kg; jb4 Height 5 ft. 10 in. (R); Pain 0/10; 15:48 Weight 68.49 kg (M); jb4 16:30 BP 115 / 91; Pulse 93; Resp 16; Pulse Ox 100% on R/A; jb4 18:00 BP 125 / 89; Pulse 86; Resp 16; Pulse Ox 100% on R/A; jb4 15:07 Body Mass Index 20.81 (68.49 kg, 177.8 cm) jb4 15:07 Pain Scale: Adult jb4 ED Course: 15:04 Patient arrived in ED. ld1 15:06 Emilio Rivera DO is Attending Physician. ms3 15:10 Triage completed. jb4 15:10 Arm band placed on right wrist. jb4 15:12 Patient has correct armband on for positive identification. Bed in low position. Call jb4 light in reach. Side rails up X 1. Provided Education on: plan of care. 15:34 Inserted saline lock: 20 gauge in right forearm, using aseptic technique. Blood jb4 collected. 15:40 PT-INR Sent. jb4 15:40 CMP Sent. jb4 15:40 CBC with Diff Sent. jb4 15:42 Demond Delgado MD is Hospitalizing Provider. ms3 19:19 No provider procedures requiring assistance completed. Patient admitted, IV remains in jb4 place. Administered Medications: 16:04 Drug: Heparin (DVT/PE Drip) 18 units/kg/[place] - ([place] [address] units, D5W IV 500 ml) IV jb4 at calculated rate Per protocol; Max initial rate 1800 units/hr {Co-Signature: gaye (Toya Rider RN).} Route: IV; Rate: calculated rate; Site: right forearm; 19:20 Follow up: IV Status: Infusion continued upon admission jb4 16:09 Drug: Heparin (DVT/PE- Bolus per protocol) - HEParin IVP 80 units/kg IVP once; Max jb4 8,000 units {Co-Signature: gaye (Toya Rider RN).} Route: IVP; Site: right antecubital; 19:21 Follow up: Response: No adverse reaction jb4 Medication: 15:12 VIS not applicable for this client. jb4 Outcome: 15:42 Decision to Hospitalize by Provider. ms3 19:19 Admitted to Med/surg accompanied by tech, room 223, jb4 19:19 Condition: stable 19:19 Discharge instructions given to patient, Instructed on the need for admit, Demonstrated understanding of instructions, 19:20 Patient left the ED. jb4 Signatures: Josr Ospina, RN RN jb4 Emilio Rivera DO DO ms3 Bobbi Rivera RN RN ld1 Toya Rider RN ss
[2024-05-15 15:51] LABS: Absolute Eosinophils 0.1 K/uL (0-0.5); Absolute Monocytes 0.9 K/uL (0.1-1.3); Absolute Neutrophil 5.9 K/uL (1.8-8.0); Basophils % 0.5 % (0-1.3); Eosinophils % 1.3 % (0-4.4); Hematocrit 24.7 % (39.6-49.0); Hemoglobin 8.1 g/dL (13.6-17.9); Lymphocytes % 21.8 % (15.3-44.8); MCH 29.5 pg (27.0-35.0); MCHC 32.9 g/dL (32.0-36.0); MCV 89.6 fL (80-100); MPV 6.7 fL (7.6-11.3); Neutrophils % 66.4 % (41.7-73.7); Nucleated Red Blood Cells % 0.1 % (0-0); Platelets 196 thou/uL (152-406); RBC Red Blood Cell Count 2.76 M/uL (4.33-5.43); Red Cell Distribution Width 23.4 % (12.1-15.2)
[2024-05-15 15:52] LABS: PT Prothrombin Time 11.8 SECONDS (10.0-13.0); Protime INR 1.04
[2024-05-15] MEDS ORDERED: HEPARIN/D5W 25,000 UNIT/500 ML BAG IV ONE (15:59)
[2024-05-15 16:03] LABS: Albumin 2.8 g/dL (3.4-5.0); Albumin/Globulin Ratio 0.9 (1.1-1.8); Alkaline Phosphatase 121 U/L (45-117); Anion Gap 7.1 mEq/L (5.0-15.0); BUN Blood Urea Nitrogen 19 mg/dL (7-18); Bicarbonate 22 mEq/L (21-32); Bilirubin Total 0.2 mg/dL (0.2-1.0); Globulin 3.2 g/dL (2.3-3.5); Glomerular Filtration Rate 32 ml/min (=/>90); Glucose Level 79 mg/dL (74-106); Potassium 4.1 mEq/L (3.5-5.1); Sodium Level 136 mEq/L (136-145)
[2024-05-15 16:05] LABS: ALT/SGPT < 14 U/L (16-61); AST/SGOT < 10 U/L (15-37)
[2024-05-15] MEDS ORDERED: HEPARIN 5000 UNIT/ML 1 ML VIAL ONE (16:05)
[2024-05-15] MEDS ORDERED: ONDANSETRON 4 MG/2 ML VIAL IV PRN (18:06)
[2024-05-15] MEDS ORDERED: SODIUM CHLORIDE 0.9% 10ML INJ IV PRN (18:09)
--- NOTE | 2024-05-15 18:31 | P.HP ---
Certification for Inpatient Patient admitted to: Observation With expected LOS: <2 Midnights Practitioner: I am a practitioner with admitting privileges, knowledge of patient current condition, hospital course, and medical plan of care. Services: Services provided to patient in accordance with Admission requirements found in Title 42 Section 412.3 of the Code of Federal Regulations Patient History Date of Service: 05/15/24 Reason for admission: acute dvt/pe History of Present Illness: 58yo M, presents to ED due to few days progressively worsening left lower extremity pain with exertion slight swelling, and some dyspnea with exertion. He was seen in the ED earlier today and found to have left lower extremity DVT and PE. He was recommended to be admitted for further management but he decided to leave AGAINST MEDICAL ADVICE due to having to find care for his dog. Once he was able to drop his dog off, he decided to come back to the ER. He reports having an DVT in his right ankle area about 4-5 years ago, and states he thinks he was only needed to take Eliquis for 6 months. He does not seem to be the best historian. He was living in [place] for the last 4 months and recently moved back 2 weeks ago, and traveled via train. Lab work notable for anemia, he is currently 98-100% on room air, vital stable. On review of systems he does state that he has been having a slight flareup of his chronic gastritis/reflux. Over the last week or so, feeling some upper abdominal discomfort when he starts eating, and burping/gas. He states he has been having dark stool, does not describe it as black and tarry, but does say it is "dark". This stools a different color than his usual and has been ongoing for the last ~5 days Discussed he has several risk factors and the dark stool could be a sign of upper GI bleed. Discussed if he were to start bleeding while on anticoagulation as treatment for his PE/DVT, we would have to initiate transfer to tertiary care hospital since we do not currently have GI services. Discussed if it was even more obvious that he was having an upper GI bleed we would be discussing needing to transfer to a tertiary care center from the ER and not admitted at this facility. Patient states he does not have any transportation to get back to the area, and does not want to be admitted to another hospital at this time. He understands the risks of staying here and being started on blood thinners, and in the event he does believe that we may not have GI services which could lead to a delay in his care. Given the patient's vitals are relatively stable, denies any clarke black/tarry stool, and declines transfer, but admits to her facility on a heparin drip, and repeat H/H in a few hours. Allergies Penicillins Adverse Reaction (Severe, Verified 09/08/17 09:27) Anaphylaxis Sulfa (Sulfonamide Antibiotics) Adverse Reaction (Severe, Verified 09/08/17 09:27) Anaphylaxis Home Medications: Escitalopram [Lexapro*] 20 mg PO BID 06/17/17 Esomeprazole Mag Trihydrate [Nexium] 40 mg PO DAILY 06/17/17 Quetiapine [Seroquel*] 400 mg PO BID 06/17/17 Trazodone HCl [Desyrel] 100 mg PO BEDTIME 06/17/17 traMADol HCL [Ultram*] 50 mg PO Q8H PRN 06/17/17 Ferrous Sulfate [Iron] 325 mg PO BID #60 tablet 06/18/17 - Past Medical/Surgical History Diabetic: No -: Bipolar Disorder -: Renal Disease -: Salem's Disease -: Hypertension -: hyperlipidemia -: RLE DVT Past Surgical History: Reviewed- Non-Contributory - Family History Family History: Reviewed- Non-Contributory - Family History Father -: Heart disease - Social History Smoking Status: Current every day smoker Alcohol use: No CD- Drugs: No Caffeine use: Yes Review of Systems 10-point ROS is otherwise unremarkable Physical Examination - Physical Exam General: Alert, In no apparent distress, Oriented x3 HEENT: EOMI, Sclerae nonicteric Neck: Supple, No LAD Respiratory: Clear to auscultation bilaterally, Normal air movement Cardiovascular: Regular rate/rhythm, No murmurs Gastrointestinal: Soft and benign, Non-distended, No tenderness Integumentary: No significant lesion, No tenderness/swelling Neurological: Normal speech, Normal strength at 5/5 x4 extr - Studies Laboratory Data (last 24 hrs) 05/15/24 05/15/24 05/15/24 15:34 15:34 15:34 WBC 8.90 Hgb 8.1 L D Hct 24.7 L Plt Count 196 PT 11.8 INR 1.04 Sodium 136 Potassium 4.1 D BUN 19 H Creatinine 2.32 H Glucose 79 Total Bilirubin 0.2 AST < 10 L ALT < 14 L Alkaline Phosphatase 121 H Assessment and Plan - Advance Directives Does patient have a Living Will: No Does patient have a Durable POA for Healthcare: No Physician Review Additional Text: Problem list Acute PE and acute LLE DVT, ? Provoked History of prior right lower extremity DVT (~5 years ago) Salem's disease Bipolar CKD Acute PE/DVT LLE DVT, and PE noted in ER today Patient states he is having several days of left lower extremity/calf pain after ambulating short distances Last few days having some shortness of breath/dyspnea on exertion as well He reports a previous right lower extremity DVT -he states he thinks he was only supposed to be on Eliquis for 6 months but denies any particular risk factors that would correlate with a provoked DVT He is not hypoxic, blood pressure stable, CT does not note any right heart strain Left lower extremity without any evidence of critical limb ischemia, it is tender and mildly edematous, no change in sensation His hemoglobin is 8, and was 9 earlier, and previous seem to be around 8-9 He denies any bleeding He does report long history of acid reflux/gastritis, denies any prior stomach ulcers or bleeding ulcers, does also report having several polyps on colonoscopy He does also endorse some darker/(kind of black) but not sticky or tarry stool over the last week Also having some brief epigastric/abdominal pain when he starts eating All concerning for gastritis/gastric ulcer, and a potential bleed if started on anticoagulation For this reason he was started on a heparin drip in the ED, and we will continue heparin drip and closely monitor him overnight Repeat CBC later this evening Will need to confirm his home medications and restart his bipolar medications Uncertain what his baseline renal function is Code: Full Dispo: Home pending improvement of symptoms and stable hemoglobin, ~24 to 48 hours Critical Care: No Time Spent Managing Pts Care (In Minutes): 75
[2024-05-15] MEDS: PANTOPRAZOLE 40 MG INJ IVP SCH (20:49)
[2024-05-15 21:30] LABS: Ferritin 17.1 ng/mL (26-388)
[2024-05-15 23:01] LABS: Hematocrit 24.9 % (39.6-49.0); Hemoglobin 8.2 g/dL (13.6-17.9); MCH 28.9 pg (27.0-35.0); MCV 87.6 fL (80-100); MPV 6.9 fL (7.6-11.3); Platelets 219 thou/uL (152-406); RBC Red Blood Cell Count 2.85 M/uL (4.33-5.43); Red Cell Distribution Width 22.7 % (12.1-15.2)
[2024-05-15 23:30] VITALS: BMI 21.7
[2024-05-16 07:23] LABS: Absolute Basophils 0.1 K/uL (0-0.5); Absolute Eosinophils 0.3 K/uL (0-0.5); Absolute Lymphocytes (CBC) 2.5 K/uL (0.7-4.9); Absolute Monocytes 0.7 K/uL (0.1-1.3); Absolute Neutrophil 5.8 K/uL (1.8-8.0); Eosinophils % 2.9 % (0-4.4); Hematocrit 25.2 % (39.6-49.0); Hemoglobin 8.3 g/dL (13.6-17.9); Lymphocytes % 26.3 % (15.3-44.8); MCH 28.9 pg (27.0-35.0); MCV 87.8 fL (80-100); MPV 6.8 fL (7.6-11.3); Monocytes % 7.8 % (3.3-12.3); Platelets 229 thou/uL (152-406); RBC Red Blood Cell Count 2.88 M/uL (4.33-5.43); Red Cell Distribution Width 22.3 % (12.1-15.2)
[2024-05-16 07:25] LABS: Anisocytosis 2+; Blood Morphology Comment NOTED (NOT SEEN); Platelet Estimate ADEQ; White Blood Cell Scan OK (OK)
[2024-05-16 07:41] LABS: AST/SGOT 12 U/L (15-37); Albumin 2.7 g/dL (3.4-5.0); Albumin/Globulin Ratio 0.8 (1.1-1.8); Alkaline Phosphatase 119 U/L (45-117); BUN Blood Urea Nitrogen 18 mg/dL (7-18); Bicarbonate 21 mEq/L (21-32); Bilirubin Total 0.2 mg/dL (0.2-1.0); Globulin 3.4 g/dL (2.3-3.5); Glomerular Filtration Rate 36 ml/min (=/>90); Glucose Level 97 mg/dL (74-106); Magnesium 1.8 mg/dL (1.6-2.4); Protein, Total 6.1 g/dL (6.4-8.2); Sodium Level 137 mEq/L (136-145)
[2024-05-16 07:53] LABS: ALT/SGPT < 14 U/L (16-61)
[2024-05-16 08:30] VITALS: O2SAT 98
[2024-05-16] MEDS ORDERED: HOME MED 1 EA UNK (Esomeprazole Mag Trihydrate [Nexium] 40 MG Capsule.Dr) PO SCH (10:44)
[2024-05-16] MEDS: QUETIAPINE 100MG TAB PO SCH (11:06)
[2024-05-16 16:46] LABS: Hematocrit 23.8 % (39.6-49.0); Hemoglobin 7.8 g/dL (13.6-17.9)
[2024-05-16] MEDS: HEPARIN/D5W 25,000 UNIT/500 ML BAG IV PRN (17:33)
--- NOTE | 2024-05-16 17:38 | P.PN ---
Subjective Date of Service: 05/16/24 Chief Complaint: acute dvt/pe Patient reports significant improvement in his left calf pain. He was able to ambulate with a walker. He denies any shortness of breath No recorded fever. Physical Examination - Vital Signs Temperature: 98.5 F Blood Pressure: 99/69 Pulse: 88 Respirations: 18 Pulse Ox (%): 98 Assessment And Plan - Plan Physical examination General: Alert and oriented x3, NAD, HEENT: Conjunctiva not pale, anicteric sclera Neck: Supple, no elevated JVD Heart: Heart sounds 1 and 2 normal, regular rhythm, normal rate, no pedal edema Lungs: Clear to auscultation bilaterally, adequate breath sounds bilaterally, no rhonchi or crackles. Abdomen: Soft, nondistended, nontender, normal bowel sounds. Extremities: No tenderness, no deformity Skin: Normal skin turgor, no rash, no nodules or ulcers. Neuro: No focal motor deficit. Normal speech. Psychiatry: Normal mood, no agitation. Diagnosis Acute PE and acute LLE DVT, ? Provoked History of prior right lower extremity DVT (~5 years ago) [place]'s disease Bipolar CKD Acute PE Acute left lower extremity DVT History of Right lower extremity DVT Patient denies shortness of breath, left calf pain significantly improved. History of noncompliance with Eliquis and recent prolonged period of immobility. He denies any bleeding. Patient reports recent history of dark color stool. There is concern for GI bleed with anticoagulation in the context of significant anemia. Continue heparin drip aspirin monitor H&H. Obtain echocardiogram Transition heparin drip to renally dosed Eliquis if hemoglobin remains stable. Recommending follow-up with GI as an outpatient for evaluation for GI bleed. Chronic kidney disease stage III Stable Monitor renal failure. Essential hypertension Patient has soft BP today. Hold lisinopril, monitor BP. Advanced directive: Full code
[2024-05-16] MEDS: BUSPIRONE HCL 5 MG TABLET PO SCH (20:38)
[2024-05-16] MEDS: TRAZODONE 50 MG TABLET PO SCH (20:38)
[2024-05-16] MEDS: ESCITALOPRAM 20 MG TAB PO SCH (20:39)
[2024-05-16] MEDS: ROSUVASTATIN 10 MG TAB PO SCH (20:39)
[2024-05-16] MEDS ORDERED: lisinopriL 5 MG TAB PO SCH (21:00)
[2024-05-17 05:55] LABS: Hematocrit 23.8 % (39.6-49.0)
[2024-05-17 06:09] LABS: Anion Gap 8.2 mEq/L (5.0-15.0); Magnesium 1.5 mg/dL (1.6-2.4); Potassium 4.2 mEq/L (3.5-5.1)
[2024-05-17] MEDS: Magnesium Sulfate 2gm IVPB 2 G/50 ML BAG IV ONE (06:20)
[2024-05-17] MEDS: MULTIVITAMIN TAB PO SCH (08:01)
[2024-05-17] MEDS: DOCUSATE NA 50 MG/5 ML UCUP PO SCH (08:01)
[2024-05-17] MEDS: APIXABAN 2.5 MG TABLET PO SCH (08:48)
[2024-05-17] MEDS: ACETAMINOPHEN 325 MG TABLET PO PRN (09:44)
[2024-05-17] MEDS ORDERED: APIXABAN 2.5 MG TABLET PO ONE (13:21)
--- NOTE | 2024-05-17 13:24 | P.DS ---
Admission Date: 05/16/24 Discharge Date: 05/17/24 Disposition: ROUTINE DISCHARGE Discharge Condition: FAIR Reason for Admission: acute dvt/pe Brief History of Present Illness: 58yo M, presents to ED due to few days progressively worsening left lower extremity pain with exertion, swelling, and some dyspnea with exertion. He was seen in the ED earlier today and found to have left lower extremity DVT and PE. He was recommended to be admitted for further management but he decided to leave AGAINST MEDICAL ADVICE due to having to find care for his dog. Once he was able to drop his dog off, he decided to come back to the ER. He reports having an DVT in his right ankle area about 4-5 years ago, and states he thinks he was only needed to take Eliquis for 6 months. He was living in [place] for the last 4 months and recently moved back 2 weeks ago, and traveled via train. Patient reports history of gastritis for which he takes Nexium. Patient reports that some dark stool, however did not describe it as black and tarry. He states that his current stool is not dark. Patient was admitted for further management. Hospital Course: Diagnosis Acute PE and acute LLE DVT, ? Provoked History of prior right lower extremity DVT (~5 years ago) [place]'s disease Bipolar CKD Patient admitted to the medical floor and the following medical problems addressed: Acute PE Acute left lower extremity DVT History of Right lower extremity DVT Patient denies shortness of breath, left calf pain and swelling significantly improved. History of noncompliance with Eliquis and recent prolonged period of immobility. He denies any bleeding. No recent melena. There was concern for GI bleed with anticoagulation in the context of significant anemia. Patient was kept on heparin drip for couple of days without any GI bleed. Heparin drip transition to oral Eliquis-renally dose to 5 mg twice daily. Echocardiogram was done which was unremarkable, no RV strain I discussed with patient follow-up with GI as an outpatient for evaluation for GI bleed AMINTA and referred him to Dr. Luna. Patient was informed to follow-up with a PCP to check his CBC within 1 week. He is also informed he needs refill of his Eliquis from his PCP. Chronic kidney disease stage III Stable Essential hypertension Patient BP was soft so his lisinopril was held and discontinued on discharge. H Vital Signs/Physical Exam: Temp Pulse Resp BP Pulse Ox 98.1 F 101 H 18 112/71 98 05/17/24 12:00 05/17/24 12:00 05/17/24 12:00 05/17/24 12:00 05/17/24 12:00 General: Alert, In no apparent distress, Oriented x3 HEENT: Mucous membr. moist/pink Neck: JVD not distended Respiratory: Clear to auscultation bilaterally, Normal air movement Cardiovascular: No edema, Regular rate/rhythm, Normal S1 S2 Gastrointestinal: Soft and benign, Non-distended, No tenderness Musculoskeletal: No swelling Integumentary: No rashes, No cyanosis Neurological: Normal strength at 5/5 x4 extr Laboratory Data at Discharge: WBC 9.40 thou/uL (4.3-10.9) 05/16/24 07:12 Hgb 8.0 g/dL (13.6-17.9) L 05/17/24 05:40 Hct 23.8 % (39.6-49.0) L 05/17/24 05:40 Plt Count 229 thou/uL (152-406) 05/16/24 07:12 PT 11.8 SECONDS (10.0-13.0) 05/15/24 15:34 INR 1.04 05/15/24 15:34 APTT 58.5 SECONDS (24.3-36.9) H 05/17/24 05:40 Sodium 139 mEq/L (136-145) 05/17/24 05:40 Potassium 4.2 mEq/L (3.5-5.1) 05/17/24 05:40 BUN 18 mg/dL (7-18) 05/17/24 05:40 Creatinine 1.92 mg/dL (0.70-1.30) H 05/17/24 05:40 Glucose 92 mg/dL (74-106) 05/17/24 05:40 Magnesium 2.1 mg/dL (1.6-2.4) 05/17/24 12:53 Total Bilirubin 0.2 mg/dL (0.2-1.0) 05/16/24 07:12 AST 12 U/L (15-37) L 05/16/24 07:12 ALT < 14 U/L (16-61) L 05/16/24 07:12 Alkaline Phosphatase 119 U/L (45-117) H 05/16/24 07:12 Home Medications: Escitalopram [Lexapro*] 20 mg PO BEDTIME 06/17/17 Quetiapine [Seroquel*] 400 mg PO BID 06/17/17 Trazodone HCl [Desyrel] 100 mg PO BEDTIME 06/17/17 Buspirone HCl [Buspar] 10 mg PO BEDTIME 05/15/24 Docusate Sodium [Stool Softener] 50 mg PO DAILY 05/15/24 Multivitamin 1 each PO DAILY 05/15/24 Rosuvastatin Calcium 20 mg PO BEDTIME 05/15/24 Apixaban [Eliquis] 5 mg PO BID #60 tab 05/17/24 Esomeprazole Mag Trihydrate [Nexium] 40 mg PO BID #60 tab 05/17/24 New Medications: Apixaban [Eliquis] 5 mg PO BID #60 tab Esomeprazole Mag Trihydrate [Nexium] 40 mg PO BID #60 tab Physician Discharge Instructions: Please follow-up with your PCP to have your CBC checked within 1 week. Your PCP also needs a refill of your Eliquis. Diet: AHA Activity: Fall precautions Followup: NONE,NONE [Primary Care Provider] - Harjit Luna MD [ACTIVE - CAN ADMIT] - 1 Week (History of GI bleed) Time spent managing pt's care (in minutes): 40
[2024-05-17] MEDS: APIXABAN 2.5 MG TABLET PO ONE (13:34)
--- NOTE | 2024-05-17 14:27 | ECHO ---
HEIGHT: 5 ft 10 in WEIGHT: 151 lb 0 oz DATE OF STUDY: 05/17/[address]: Maximiliano Purcell MD 2-DIMENSIONAL: YES M.MODE: YES DOPPLER: YES COLOR FLOW: YES TDS: PORTABLE: DEFINITY: BUBBLE STUDY: DIAGNOSIS: PULMONARY EMBOLISM CARDIAC HISTORY: CATHERIZATION: SURGERY: PROSTHETIC VALVE: PACEMAKER: MEASUREMENTS (cm) DIASTOLIC (NORMALS) SYSTOLIC (NORMALS) IVSd 0.9 (0.6-1.2) LA Diam 2.4 (1.9-4.0) LVEF 60-65% LVIDd 4.5 (3.5-5.7) LVIDs 2.4 (2.0-3.5) %FS LVPWd 1.0 (0.6-1.2) Ao Diam 3.0 (2.0-3.7) 2 DIMENSIONAL ASSESSMENT: RIGHT ATRIUM: NORMAL LEFT ATRIUM: NORMAL RIGHT VENTRICLE: NORMAL LEFT VENTRICLE: NORMAL TRICUSPID VALVE: NORMAL MITRAL VALVE: NORMAL PULMONIC VALVE: NORMAL AORTIC VALVE: NORMAL PERICARDIAL EFFUSION: NONE AORTIC ROOT: NORMAL LEFT VENTRICULAR WALL MOTION: NORMAL DOPPLER/COLOR FLOW: NORMAL COMMENTS: 1. NORMAL LEFT VENTRICULAR SYSTOLIC FUNCTION, EJECTION FRACTION 60-65%, NORMAL WALL MOTION 2. NORMAL DIASTOLIC FUNCTION TECHNOLOGIST: CARLYN LEWIS
[2024-05-17 16:38] VITALS: BP 107/65; TEMP 98
[2024-05-17] MEDS ORDERED: APIXABAN 2.5 MG TABLET PO SCH (21:00)
[2024-05-17] MEDS ORDERED: APIXABAN 5 MG TABLET PO SCH (21:00)
== END 2024-05-17 16:53 | disposition home or self-care (01) | DRG 299 ==
LOC: ER 14:53 → ERHOLD 18:05 → 2ND 18:39 → OBSVTOIN 05-16 17:45
PROVIDERS: ADMIT Hospitalist; ATTEND Internal Medicine
DX: I82.4Z2 Acute embolism and thrombosis of unspecified deep veins of left distal lower extremity (principal); I26.99 Other pulmonary embolism without acute cor pulmonale; G10 Huntington's disease; I12.9 Hypertensive chronic kidney disease with stage 1 through stage 4 chronic kidney disease, or unspecified chronic kidney disease; N18.30 Chronic kidney disease, stage 3 unspecified; D63.1 Anemia in chronic kidney disease; F31.9 Bipolar disorder, unspecified; K21.9 Gastro-esophageal reflux disease without esophagitis; F17.200 Nicotine dependence, unspecified, uncomplicated; Z88.0 Allergy status to penicillin; Z88.2 Allergy status to sulfonamides; Z79.01 Long term (current) use of anticoagulants; Z79.899 Other long term (current) drug therapy; Z86.711 Personal history of pulmonary embolism; Z86.718 Personal history of other venous thrombosis and embolism; Z91.148 Patient's other noncompliance with medication regimen for other reason
CPT/HCPCS: 36415; 71275; 80048; 80053; 80076; 82607; 82728; 83540; 83735; 83880; 84466; 84484; 85014; 85018; 85025; 85027; 85610; 85730; 93005; 93306; 93971; 94760; 96365; 96366; 97116; 97161; 99284; 99285; G0378; J1644; J2470; J3475; Q9967

== ENCOUNTER 2024-12-22 11:41 | Emergency (ER) | payer SELFPAY ==
--- NOTE | 2024-12-22 12:26 | ER ---
Nurse's Notes [facility] Ese Name: Lucy Patient Age: 89 yrs Sex: Male : 03/15/1898 Arrival Date: 12/22/2024 Time: 11:41 Bed [id number] Private MD: Diagnosis: Altered mental status, unspecified Presentation: 12/22 11:43 Chief complaint: EMS states: found by PD laying on steps outside, pt altered, AOX0, BGL af3 66, other VSS. Coronavirus screen: At this time, the client does not indicate any symptoms associated with coronavirus-19. Ebola Screen: No symptoms or risks identified at this time. Initial Sepsis Screen: Does the patient meet any 2 criteria? No. Patient's initial sepsis screen is negative. Does the patient have a suspected source of infection? No. Patient's initial sepsis screen is negative. Risk Assessment: Do you want to hurt yourself or someone else? Unable to obtain. Onset of symptoms was December 22, 2024. 11:43 Method Of Arrival: EMS: [facility] af3 11:43 Acuity: JED 2 af3 Triage Assessment: 11:45 General: Appears in no apparent distress. comfortable, unkempt, emaciated, af3 malnourished, Behavior is cooperative, agitated. Pain: Unable to use pain scale. Patient is disoriented. Neuro: Level of Consciousness is awake, alert, obeys commands, confused, Oriented to none. Cardiovascular: Patient's skin is warm and dry. Respiratory: Airway is patent Respiratory effort is even, unlabored, Respiratory pattern is regular, symmetrical. GI: No signs and/or symptoms were reported involving the gastrointestinal system. : No signs and/or symptoms were reported regarding the genitourinary system. Derm: No signs and/or symptoms reported regarding the dermatologic system. Musculoskeletal: No signs and/or symptoms reported regarding the musculoskeletal system. Historical: - Allergies: 11:45 Unable to obtain; af3 - Home Meds: 11:45 Unable to obtain [Active]; af3 - PMHx: 11:45 Unable to Obtain; af3 - PSHx: 11:45 Unable to Obtain; af3 - Immunization history:: Adult Immunizations unknown. - Infectious Disease History:: unable to obtain . - Social history:: Smoking status: unknown. Screenin:48 [facility] ED Fall Risk Assessment (Adult) History of falling in the last 3 months, af3 including since admission Yes- single mechanical fall (1 pt) Confusion or Disorientation Yes (5 pts) Intoxicated or Sedated No (0 pts) Impaired Gait Yes (1 pt) Mobility Assist Device Used No (0 pt) Altered Elimination Yes (1 pt) Score/Fall Risk Level 3 or more points = High Risk Maintained a safe environment, Hourly rounding (assess needs \T\ fall precautionary measures) done. Abuse screen: Denies threats or abuse. Denies injuries from another. Nutritional screening: No deficits noted. Tuberculosis screening: No symptoms or risk factors identified. Assessment: 11:48 General: see triage assessmenrt . af3 Vital Signs: 11:43 BP 114 / 84; Pulse 80; Resp 18; Temp 97.8; Pulse Ox 100% on R/A; Weight 58.97 kg; af3 Height 6 ft. 0 in. ; 11:43 Body Mass Index 17.63 (58.97 kg, 182.88 cm) af3 ED Course: 11:43 Patient arrived in ED. af3 11:45 Triage completed. af3 11:45 Arm band placed on. af3 11:48 Patient has correct armband on for positive identification. Bed in low position. Call af3 light in reach. 11:48 No provider procedures requiring assistance completed. af3 11:50 Gloria Mcneal, RN is Primary Nurse. af3 12:12 Initial lab(s) drawn, by pr, sent to lab. Inserted saline lock: 20 gauge in left af3 antecubital area, using aseptic technique. Blood collected. Flushed with 10 mL NS. Administered Medications: No medications were administered Medication: 11:48 VIS not applicable for this client. af3 Outcome: 12:25 Discharge ordered by . kb3 12:26 Patient left the ED. kb3 Signatures: Mae Stephenson RN RN kb3 Gloria Mcneal RN RN af3 Corrections: (The following items were deleted from the chart) 11:46 11:45 Allergies: No Known Allergies; af3 af3
[2024-12-22 12:36] VITALS: BP 114/84; TEMP 97.8; O2SAT 100
== END 2024-12-22 12:26 | disposition home or self-care (01) ==
LOC: EDBD → ER 11:41 → MERGE 11:41 → ER 12:26
DX: R41.82 Altered mental status, unspecified (principal)
CPT/HCPCS: 99283

== ENCOUNTER 2024-12-22 11:48 | Inpatient (IN) | payer OTHER ==
[2024-12-22 12:18] LABS: Absolute Lymphocytes (CBC) 1.0 K/uL (0.7-4.9); Hematocrit 28.6 % (39.6-49.0); Hemoglobin 9.1 g/dL (13.6-17.9); MCH 29.1 pg (27.0-35.0); MCHC 31.8 g/dL (32.0-36.0); MCV 91.4 fL (80-100); MPV 7.5 fL (7.6-11.3); Nucleated RBC Absolute Count 0.0 (0-0); Nucleated Red Blood Cells % 0.1 % (0-0); RBC Red Blood Cell Count 3.13 M/uL (4.33-5.43); White Blood Count 9.20 thou/uL (4.3-10.9)
[2024-12-22] MEDS ORDERED: MULTIVITAMINS 10 ML VIAL (INJ) IV ONE (12:22)
[2024-12-22] MEDS ORDERED: FAMOTIDINE 20 MG/2 ML VIAL IV ONE (12:22)
[2024-12-22] MEDS ORDERED: THIAMINE 200 MG/2 ML INJ ONE (12:22)
[2024-12-22] MEDS ORDERED: NA CHLORIDE 0.9% 2,000 ML ONE (12:23)
--- NOTE | 2024-12-22 12:26 | RAD REPORT ---
EXAMINATION: Head C Spine Mpr Wo Con CLINICAL INDICATION: Male, 59 years old. Mental status change;Trauma TECHNIQUE: Axial CT images from the skull base to the vertex without intravenous contrast. Axial CT i mages through the cervical spine were obtained without intravenous contrast. Sagittal and coronal reformatted images were created from the data set. Coronal and sagittal reformatted images were creat ed from the data set. One or more of the following dose reduction techniques were used: Automated exposure control, adjustment of the mA and/or kV according to patient size, and/or iterative reconstr uction. Unless otherwise specified, incidental findings do not require dedicated imaging follow-up. [id number]. COMPARISON: No prior exams FINDINGS: Head: INTRACRANIAL: No acute intracranial hemorrhage. No acute large vascular territory infarct. No hydro cephalus. No mass effect or midline shift. No significant white matter disease. VASCULATURE: No visualized abnormalities in the arteries or dural venous sinuses. SCALP/SKULL: No calvarial fracture identified. No acute soft tissue abnormality. SINUSES: The visualized paranasal sinuses are mostly clear. No significant mastoid fluid. Cervical spine: ALIGNMENT: The cervical spine has normal alignment without scoliosis or spondylolisthesis. BONE: Vertebral body heights are maintained. No aggressive osseous lesions. DEGENERATIVE: No significant focal degenerative changes. SOFT TISSUE: No significant abnormalities in the soft tissue of the neck. The visualized lung apices are clear. IMPRESSION: No acute intracranial abnormality. No acute fracture or traumatic malalignment of the cervical spine.
[2024-12-22 12:29] LABS: PT Prothrombin Time 11.6 SECONDS (10-13.0); PTT, Activated Partial Thromb 25.8 SECONDS (27.2-37.4); Protime INR 1.03
--- NOTE | 2024-12-22 12:35 | RAD REPORT ---
EXAM: Chest Single View HISTORY: 59 years Male COUGH COMPARISON: 03/21/2021 FINDINGS: LUNGS/PLEURA: The lungs are clear. No pleural effusions or pneumothorax. No pulmonary edema. CARDIAC/MEDIASTINUM: The cardiac silhouette is within normal limits. UPPER ABDOMEN: No significant abnormality. BONES: No acute abnormality. LINES/TUBES/OTHER: N/A IMPRESSION: No evidence of acute cardiopulmonary disease.
--- NOTE | 2024-12-22 12:35 | RAD REPORT ---
EXAM: Chest Abd Pelvis Wo Con CLINICAL INDICATION: Male, 59 years old mental status change, trauma TECHNIQUE: CT chest, abdomen and pelvis was performed, without IV contrast, as per department protoco l. Axial, sagittal and coronal reconstructions were obtained. One or more of the following dose reduction techniques were used: Automated exposure control, adjustment of the mA and/or kV according to the patient size, and/or iterative reconstruction. Unless otherwise specified, incidental findings do not require dedicated imaging follow-up. [id number]. COMPARISON: Chest CT 05/15/2024 FINDINGS: The lack of intravenous contrast limits the sensitivity of this exam for evaluation of solid visceral organs, vascular structures, and retroperitoneum. ---THORAX--- LOWER NECK AND CHEST WALL: Visualized thyroid gland and soft tissues are normal. MEDIASTINUM AND LYMPH NODES: No mediastinal mass or fluid collection. Normal size mediastinal, hilar, and axillary lymph nodes. Mild distal esophageal thickening. THORACIC AORTA: No thoracic aortic aneurysm. PULMONARY ARTERIES: Caliber is within normal limits. Unable to assess for pulmonary emboli without IV contrast. HEART: Normal heart size. No coronary calcifications. No significant pericardial effusion. LUNGS AND AIRWAYS: Airways are clear. No evidence of airspace or interstitial process. No suspicious and/or stable pulmonary nodules. PLEURA: No pleural effusion. No pneumothorax. ---ABDOMEN/PELVIS--- UPPER GI: Possible gastric wall thickening but not well assessed. LIVER: No significant focal abnormality. GALLBLADDER/BILE DUCTS: Cholecystectomy? PANCREAS: No mass, ductal dilation, or donavon-pancreatic fluid. SPLEEN: Unremarkable. ADRENALS: No adrenal masses. KIDNEYS AND URETERS: No hydronephrosis.Low density and/or too small to characterize renal lesions whi ch are statistically benign.No renal calculi. No ureteral calculi. ABDOMINAL AORTA AND OTHER VESSELS: Mild atherosclerotic changes. 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 PERITONEUM: No abnormal free fluid. No free air. LYMPH NODES: No pathologic lymphadenopathy. ABDOMINAL WALL: Unremarkable SMALL BOWEL/COLON: Mild diffuse colonic wall thickening versus underdistention. Normal appendix. URINARY BLADDER: Underdistended but grossly unremarkable. REPRODUCTIVE ORGANS: No pathologic process. ---COMBINED--- MUSCULOSKELETAL: No acute or suspicious osseous abnormality. Remote rib fractures. ADDITIONAL FINDINGS: None. IMPRESSION: No acute findings within the chest, abdomen, or pelvis. Incidental findings as noted above,
[2024-12-22 12:44] LABS: ALT/SGPT 49 U/L (16-61); AST/SGOT 48 U/L (15-37); Albumin 3.7 g/dL (3.4-5.0); Albumin/Globulin Ratio 1.1 (1.1-1.8); Alkaline Phosphatase 71 U/L (45-117); Anion Gap 20.4 mEq/L (5.0-15.0); BUN Blood Urea Nitrogen 41 mg/dL (7-18); Bilirubin Indirect, Calculated 0.4 mg/dL (0.2-0.8); Globulin 3.3 g/dL (2.3-3.5); Glucose Level 55 mg/dL (74-106); Magnesium 2.0 mg/dL (1.6-2.4); NT PRO-BNP 2498 pg/mL (<125); Potassium 4.4 mEq/L (3.5-5.1); Troponin High Sensitivity 26.0 pg/mL (<58.9)
[2024-12-22 12:47] LABS: C-Reactive Protein < 2.90 mg/L (<3.00)
[2024-12-22 13:17] LABS: Anisocytosis 1+; Blood Morphology Comment NOTED (NOT SEEN); Burr Cells FEW; Macrocytosis SLIGHT; Microcytosis 1+; Ovalocytes 1+; Poikilocytosis 2+; Teardrop Cell FEW; White Blood Cell Scan OK (OK)
[2024-12-22] MEDS ORDERED: D5W 0 ML IV ONE (13:44)
[2024-12-22] MEDS ORDERED: D50W 25 GM/50 ML SYRINGE IV ONE (13:44)
[2024-12-22] MEDS ORDERED: D5 0.45 NS 1,000 ML IV ONE (13:46)
--- NOTE | 2024-12-22 15:43 | EDPHYS ---
Physician Documentation [facility] Name: Jeovany Buckley Age: 59 yrs Sex: Male : 1965 Arrival Date: 12/22/2024 Time: 11:48 Bed 13 Private MD: ED Physician Kevin Mojica HPI: 12/22 15:31 This 59 yrs old Male presents to ER via EMS with complaints of Altered Mental marky Status. 15:31 The patient presents with agitation, confusion, decreased mental status, decreased marky responsiveness, trouble concentrating. Onset: The symptoms/episode began/occurred 2 hour(s) ago. Possible causes: CVA or TIA, drug use, alcohol, low blood sugar, seizure, sepsis, unknown. Associated signs and symptoms: Pertinent positives:. Current symptoms: In the emergency department the patient's symptoms have improved, mildly, moderately. Patient's baseline: Neuro:. The patient has experienced similar episodes in the past, multiple times. Historical: - Allergies: 13:31 PENICILLINS; ph 13:31 Sulfa (Sulfonamide Antibiotics); ph - PMHx: 13:31 Bipolar disorder; DVT; RLE; [place]'s Disease; Hypertension; liver damage; Renal ph Disease; - Immunization history:: Adult Immunizations. - Infectious Disease History:: unable to obtain. - Family history:: not pertinent. - Social history:: Smoking status: unknown. ROS: 15:32 Constitutional: Negative for fever, chills, and weight loss, Eyes: Negative for injury, marky pain, redness, and discharge, ENT: Negative for injury, pain, and discharge, Neck: Negative for injury, pain, and swelling, Cardiovascular: Negative for chest pain, palpitations, and edema, Respiratory: Negative for shortness of breath, cough, wheezing, and pleuritic chest pain, Abdomen/GI: Negative for abdominal pain, nausea, vomiting, diarrhea, and constipation, Back: Negative for injury and pain, : Negative for injury, bleeding, discharge, and swelling, MS/Extremity: Negative for injury and deformity, Skin: Negative for injury, rash, and discoloration, Psych: Negative for depression, anxiety, suicide ideation, homicidal ideation, and hallucinations, Allergy/Immunology: Negative for hives, rash, and allergies, Endocrine: Negative for neck swelling, polydipsia, polyuria, polyphagia, and marked weight changes, Hematologic/Lymphatic: Negative for swollen nodes, abnormal bleeding, and unusual bruising, 15:32 Neuro: Positive for altered mental status, dizziness, weakness, Exam: 15:32 Constitutional: This is a well developed, well nourished patient who is awake, alert, marky and in no acute distress. Head/Face: Normocephalic, atraumatic. Eyes: Pupils equal round and reactive to light, extra-ocular motions intact. Lids and lashes normal. Conjunctiva and sclera are non-icteric and not injected. Cornea within normal limits. Periorbital areas with no swelling, redness, or edema. ENT: Nares patent. No nasal discharge, no septal abnormalities noted. Tympanic membranes are normal and external auditory canals are clear. Oropharynx with no redness, swelling, or masses, exudates, or evidence of obstruction, uvula midline. Mucous membranes moist. Neck: Trachea midline, no thyromegaly or masses palpated, and no cervical lymphadenopathy. Supple, full range of motion without nuchal rigidity, or vertebral point tenderness. No Meningismus. Chest/axilla: Normal chest wall appearance and motion. Nontender with no deformity. No lesions are appreciated. Cardiovascular: Regular rate and rhythm with a normal S1 and S2. No gallops, murmurs, or rubs. Normal PMI, no JVD. No pulse deficits. Respiratory: Lungs have equal breath sounds bilaterally, clear to auscultation and percussion. No rales, rhonchi or wheezes noted. No increased work of breathing, no retractions or nasal flaring. Abdomen/GI: Soft, non-tender, with normal bowel sounds. No distension or tympany. No guarding or rebound. No evidence of tenderness throughout. Back: No spinal tenderness. No costovertebral tenderness. Full range of motion. Male : Normal genitalia with no discharge or lesions. Skin: Warm, dry with normal turgor. Normal color with no rashes, no lesions, and no evidence of cellulitis. MS/ Extremity: Pulses equal, no cyanosis. Neurovascular intact. Full, normal range of motion., bilateral aka Psych: Awake, alert, with orientation to person, place and time. Behavior, mood, and affect are within normal limits. 15:32 Neuro: Orientation: to person, place, Not oriented to time, situation, Mentation: slow to respond, Cranial nerves: grossly normal, is grossly normal based on the patient's age, no acute changes, Cerebellar function: no acute changes, Gait: not tested. 15:46 ECG was reviewed by the Attending Physician. [facility] Vital Signs: 11:50 BP 119 / 83; Pulse 81; Resp 18; Temp 98.4; Pulse Ox 99% ; Weight 58.97 kg; Height 6 ft. ph 0 in. ; 13:35 BP 121 / 76; Pulse 82; Resp 18; Pulse Ox 98% on R/A; ph 14:14 BP 112 / 80; Pulse 86; Pulse Ox 98% on R/A; af3 15:29 BP 122 / 85; Pulse 73; Resp 18; Pulse Ox 96% on R/A; af3 11:50 Body Mass Index 17.63 (58.97 kg, 182.88 cm) ph NIH Stroke Scale Scores: 15:32 NIHSS Score: 0 marky MDM: 11:51 Medical Screening Exam initiated marky 15:34 Differential Diagnosis: CVA, electrolyte abnormality, alcohol intoxication, marky hypoglycemia, intracranial bleed, meningitis, overdose, pneumonia, seizure, sepsis, volume depletion. Data reviewed: vital signs, nurses notes, lab test result(s), EKG, radiologic studies. Consideration of Admission/Observation Patient was admitted/placed on observation. Escalation of care including admission/observation considered. I considered the following discharge prescriptions or medication management in the emergency department Medications were administered in the Emergency Department. See MAR. Independent interpretation of the following test(s) in the Emergency Department EKG: See my EKG interpretation above. Test considered but Not performed: Ultrasound NO 2 D ECHO. Historians other than the Patient: EMS: EMS WELL INFORMED. Care significantly affected by the following chronic conditions: Hypertension, Chronic Kidney Disease, BIPOLAR, DVT, PHIL'S DISEASE, LIVER DISEASE. 12/22 11:59 Order name: Basic Metabolic Panel; Complete Time: 13:32 [facility] 12/22 11:59 Order name: CBC with Diff; Complete Time: 13:32 [facility] 12/22 11:59 Order name: LFT's; Complete Time: 13:32 marky 12/22 11:59 Order name: Magnesium; Complete Time: 13:32 [facility] 12/22 11:59 Order name: NT PRO-BNP; Complete Time: 13:32 [facility] 12/22 11:59 Order name: PT-INR; Complete Time: 13:32 [facility] 12/22 11:59 Order name: Troponin HS; Complete Time: 13:32 [facility] 12/22 11:59 Order name: Blood Culture Adult (2) [facility] 12/22 11:59 Order name: Lactate w/ 2H reflex if indic.; Complete Time: 13:32 [facility] 12/22 11:59 Order name: UA Rfx Sabino Cult if indicated [facility] 12/22 11:59 Order name: CRP; Complete Time: 13:32 [facility] 12/22 11:59 Order name: Acetaminophen; Complete Time: 13:32 [facility] 12/22 11:59 Order name: ETOH Level; Complete Time: 13:32 [facility] 12/22 11:59 Order name: Ptt, Activated; Complete Time: 13:32 [facility] 12/22 11:59 Order name: Salicylate; Complete Time: 13:32 [facility] 12/22 11:59 Order name: Urine Drug Screen [facility] 12/22 11:59 Order name: AMMONIA; Complete Time: 13:32 [facility] 12/22 12:22 Order name: CBC Smear Scan; Complete Time: 13:32 EDMS 12/22 15:10 Order name: Glucose, Ancillary Testing; Complete Time: 15:22 EDMS 12/22 15:42 Order name: [place] [facility] 12/22 16:45 Order name: UA Rfx Sabino Cult if indicated EDDE 12/22 16:45 Order name: CBC with Automated Diff EDMS 12/22 16:45 Order name: CBC with Automated Diff EDMS 12/22 16:45 Order name: CBC with Automated Diff EDMS 12/22 16:45 Order name: Comprehensive Metabolic Panel EDMS 12/22 16:45 Order name: Comprehensive Metabolic Panel EDMS 12/22 16:45 Order name: Comprehensive Metabolic Panel EDMS 12/22 16:45 Order name: Magnesium EDMS 12/22 16:45 Order name: Magnesium EDMS 12/22 16:45 Order name: Phosphorus EDMS 12/22 16:45 Order name: Phosphorus EDMS 12/22 17:14 Order name: Basic Metabolic Panel EDMS 12/22 11:59 Order name: XRAY Chest (1 view); Complete Time: 13:32 [facility] 12/22 12:04 Order name: Chest Abd Pelvis Wo Con; Complete Time: 13:32 EDMS 12/22 12:05 Order name: Head C Spine Mpr Wo Con; Complete Time: 13:32 EDMS 12/22 11:59 Order name: EKG; Complete Time: 12:00 [facility] 12/22 11:59 Order name: Cardiac monitoring; Complete Time: 12:26 [facility] 12/22 11:59 Order name: EKG - Nurse/Tech; Complete Time: 12:26 [facility] 12/22 11:59 Order name: IV Saline Lock; Complete Time: 12: [facility] 12/22 11:59 Order name: Labs collected and sent; Complete Time: 12: [facility] 12/22 11:59 Order name: O2 Per Protocol; Complete Time: 12: [facility] 12/22 11:59 Order name: O2 Sat Monitoring; Complete Time: 12: [facility] EC:46 Rate is 85 beats/min. Rhythm is regular. QRS [place] is Normal. [place] interval is normal. QRS [place] interval is normal. QT interval is normal. No Q waves. T waves are Normal. No ST changes noted. Clinical impression: NSR w/ Non-specific ST/T Changes and No evidence of ischemia. Interpreted by me. Reviewed by me. Administered Medications: 15:30 Discontinued: d5-1/2 [id number] ml IV at 100 ml/hr continuous marky 12:41 Drug: NS 0.9% IV 1000 ml IV at 1 bolus Per protocol; to be given as a bolus over 60 af3 minutes Route: IV; Rate: 1 bolus; Site: left antecubital; 14:16 Follow up: Response: No adverse reaction; IV Status: Completed infusion; IV Intake: af3 1000ml 12:41 Drug: Thiamine IV 100 mg IV at bolus once Route: IV; Rate: bolus; Site: left af3 antecubital; 14:16 Follow up: Response: No adverse reaction; IV Status: Completed infusion af3 12:41 Drug: Banana Bag - (Multivitamin IV 1 amp, NS 0.9% IV 1000 ml, Thiamine IV 100 mg, af3 foLIC Acid IVPB 1 mg) IV at 500 ml/hr once Route: IV; Rate: 500 ml/hr; Site: left antecubital; 14:16 Follow up: Response: No adverse reaction; IV Status: Completed infusion; IV Intake: af3 1000ml 12:41 Drug: Famotidine IVP 20 mg IVP once; dilute with 10 mL 0.9% NaCl; give over 2 minutes af3 Route: IVP; Site: left antecubital; 14:16 Follow up: Response: No adverse reaction af3 13:54 Drug: D50W IVP 50 ml IVP once; (1 amp) Route: IVP; Site: left antecubital; af3 14:41 Follow up: Response: No adverse reaction ph 13:54 Drug: D5-1/2 NS IV 1000 ml IV at 100 ml/hr continuous Route: IV; Rate: 100 ml/hr; Site: af3 left antecubital; 14:42 Follow up: Response: No adverse reaction; IV Status: Completed infusion ph 18:51 Follow up: Response: No adverse reaction; IV Status: Order to discontinue infusion af3 17:51 Not Given (Other Intervention Used): [id number] ml, sodium bicarbonate ivp 100 meq IV at af3 125 ml/hr continuous Disposition: 15:34 Critical Care:. marky Disposition Summary: 12/22/24 15:42 Hospitalization Ordered Notes: Hospitalization Status: Inpatient Admission marky Provider: Demond Delgado cha Location: Telemetry/[facility] (Inpatient) marky Condition: Fair marky Problem: new marky Symptoms: have improved marky Bed/Room Type: Standard marky Room Assignment: 204(12/22/24 18:18) eb Diagnosis - Altered mental status, unspecified marky - Dehydration marky - Acute kidney failure, unspecified - ON CHRONIC marky - Alcohol abuse marky - Bipolar disorder, unspecified marky Forms: - Medication Reconciliation Form marky - SBAR form marky - Leadership Thank You Letter marky Critical care time excluding procedures: 15:34 Critical care time: Bedside Care: 35 minutes, Consultation: 10 minutes, Family marky Intervention: 5 minutes. Total time: 50 minutes NIH Stroke Scale - NIH Stroke Score Date: 12/22/2024 Time: 15:32 Total Score = 0 10. Dysarthria (speech clarity - read or repeat words) - 0(Normal) 11. Extinction and Inattention (visual/tactile/auditory/spatial/personal) - 0(No abnormality) 1a. Level of Consciousness (LOC) - 0(Alert) 1b. Level of Consciousness (LOC) (Month \T\ Age) - 0(Both) 1c. LOC Commands (Open \T\ Closes Eyes/Final [employer]isher Forging Dies) - 0(Both) 2. Best Gaze (Lateral Gaze Paresis) - 0(Normal) 3. Visual Field Loss - 0(No visual loss) 4. Facial Palsy - 0(Normal) 5a. Left Arm: Motor (10-second hold) - 0(No drift) 5b. Right Arm: Motor (10-second hold) - 0(No drift) 6a. Left Leg: Motor (5-second hold - always test supine) - 0(No drift) 6b. Right Leg: Motor (5-second hold - always test supine) - 0(No drift) 7. Limb Ataxia (finger/nose \T\ heel/celis - test with eyes open) - 0(Absent) 8. Sensory Loss (pinprick arms/legs/face) - 0(Normal) 9. Best Language: Aphasia (description/naming/reading) - 0(No aphasia) Initials: marky Signatures: Dispatcher [employer] EDMS Kevin Mojica MD MD cha Hall, Patricia, RN RN Tri Tejada Ashley, RN RN af3 Corrections: (The following items were deleted from the chart) 12:03 12:00 Head C Spine Cap Wo Con+CT.RAD.BRZ ordered. EDMS EDMS 18:18 15:42 marky awad
--- NOTE | 2024-12-22 15:43 | ER ---
Nurse's Notes [facility] Name: Jeovany Buckley Age: 59 yrs Sex: Male : 1965 Arrival Date: 12/22/2024 Time: 11:48 Bed 13 Private MD: Diagnosis: Altered mental status, unspecified;Dehydration;Acute kidney failure, unspecified-ON CHRONIC;Alcohol abuse;Bipolar disorder, unspecified Presentation: 12/22 11:50 Chief complaint: EMS states: Found by PD lying on steps outdoors, pt A\T\O x 0, BGL 66, ph other VSS. Coronavirus screen: At this time, the client does not indicate any symptoms associated with coronavirus-19. Ebola Screen: No symptoms or risks identified at this time. Initial Sepsis Screen: Does the patient meet any 2 criteria? No. Patient's initial sepsis screen is negative. Does the patient have a suspected source of infection? No. Patient's initial sepsis screen is negative. Risk Assessment: Do you want to hurt yourself or someone else? Patient reports no desire to harm self or others. Onset of symptoms was December 22, 2024. 11:50 Method Of Arrival: EMS: [facility] ph 11:50 Acuity: JED 2 ph Historical: - Allergies: 13:31 PENICILLINS; ph 13:31 Sulfa (Sulfonamide Antibiotics); ph - PMHx: 13:31 Bipolar disorder; DVT; RLE; [place]'s Disease; Hypertension; liver damage; Renal ph Disease; - Immunization history:: Adult Immunizations. - Infectious Disease History:: unable to obtain. - Family history:: not pertinent. - Social history:: Smoking status: unknown. Screenin:33 [facility] ED Fall Risk Assessment (Adult) History of falling in the last 3 months, ph including since admission Yes- single mechanical fall (1 pt) Confusion or Disorientation Yes (5 pts) Intoxicated or Sedated No (0 pts) Impaired Gait No (0 pts) Mobility Assist Device Used No (0 pt) Altered Elimination No (0 pt) Score/Fall Risk Level 3 or more points = High Risk Oriented to surroundings, Maintained a safe environment, Hourly rounding (assess needs \T\ fall precautionary measures) done, Used ambulatory aids as needed (educated on \T\ assisted with). Abuse screen: Denies threats or abuse. Denies injuries from another. Nutritional screening: No deficits noted. Tuberculosis screening: No symptoms or risk factors identified. Assessment: 00:00 Reassessment: Patient appears in no apparent distress at this time. No changes from af3 previously documented assessment. Patient and/or family updated on plan of care and expected duration. Pain level reassessed. 12:15 General: Appears in no apparent distress. comfortable, unkempt, emaciated, malnourished.af3 12:15 Pain: Unable to use pain scale. Patient is disoriented. Neuro: Level of Consciousness af3 is awake, alert, obeys commands, confused, Oriented to none. Cardiovascular: Patient's skin is warm and dry. Respiratory: Airway is patent Respiratory effort is even, unlabored, Respiratory pattern is regular, symmetrical. GI: No signs and/or symptoms were reported involving the gastrointestinal system. : No signs and/or symptoms were reported regarding the genitourinary system. EENT: No signs and/or symptoms were reported regarding the EENT system. Derm: No signs and/or symptoms reported regarding the dermatologic system. Musculoskeletal: No signs and/or symptoms reported regarding the musculoskeletal system. 13:15 Reassessment: Patient appears in no apparent distress at this time. No changes from af3 previously documented assessment. Patient and/or family updated on plan of care and expected duration. Pain level reassessed. 14:12 Reassessment: Patient appears in no apparent distress at this time. No changes from af3 previously documented assessment. Patient and/or family updated on plan of care and expected duration. Pain level reassessed. Vital Signs: 11:50 BP 119 / 83; Pulse 81; Resp 18; Temp 98.4; Pulse Ox 99% ; Weight 58.97 kg; Height 6 ft. ph 0 in. ; 13:35 BP 121 / 76; Pulse 82; Resp 18; Pulse Ox 98% on R/A; ph 14:14 BP 112 / 80; Pulse 86; Pulse Ox 98% on R/A; af3 15:29 BP 122 / 85; Pulse 73; Resp 18; Pulse Ox 96% on R/A; af3 11:50 Body Mass Index 17.63 (58.97 kg, 182.88 cm) ph NIH Stroke Scale Scores: 15:32 NIHSS Score: 0 marky ED Course: 11:50 Patient arrived in ED. eb 11:50 Mcneal, Gloria, JOSSELINE is Primary Nurse. af3 11:51 Kevin Mojica MD is Attending Physician. marky 11:51 Kevin Mojica MD is Attending Physician. marky 12:11 Head C Spine Mpr Wo Con In Process Unspecified. EDMS 12:16 Chest Abd Pelvis Wo Con In Process Unspecified. EDMS 12:27 XRAY Chest (1 view) In Process Unspecified. EDMS 13:31 Triage completed. ph 13:32 Arm band placed on Patient placed in an exam room. ph 13:34 Patient has correct armband on for positive identification. Bed in low position. Call ph light in reach. Side rails up X2. environmental monitoring specialist on. Pulse ox on. NIBP on. Door closed. Noise minimized. Warm blanket given. 15:40 Demond Delgado MD is Hospitalizing Provider. marky 18:06 Urine collected: clean catch specimen, sent to lab. ts3 Administered Medications: 15:30 Discontinued: d5-1/2 [id number] ml IV at 100 ml/hr continuous marky 12:41 Drug: NS 0.9% IV 1000 ml IV at 1 bolus Per protocol; to be given as a bolus over 60 af3 minutes Route: IV; Rate: 1 bolus; Site: left antecubital; 14:16 Follow up: Response: No adverse reaction; IV Status: Completed infusion; IV Intake: af3 1000ml 12:41 Drug: Thiamine IV 100 mg IV at bolus once Route: IV; Rate: bolus; Site: left af3 antecubital; 14:16 Follow up: Response: No adverse reaction; IV Status: Completed infusion af3 12:41 Drug: Banana Bag - (Multivitamin IV 1 amp, NS 0.9% IV 1000 ml, Thiamine IV 100 mg, af3 foLIC Acid IVPB 1 mg) IV at 500 ml/hr once Route: IV; Rate: 500 ml/hr; Site: left antecubital; 14:16 Follow up: Response: No adverse reaction; IV Status: Completed infusion; IV Intake: af3 1000ml 12:41 Drug: Famotidine IVP 20 mg IVP once; dilute with 10 mL 0.9% NaCl; give over 2 minutes af3 Route: IVP; Site: left antecubital; 14:16 Follow up: Response: No adverse reaction af3 13:54 Drug: D50W IVP 50 ml IVP once; (1 amp) Route: IVP; Site: left antecubital; af3 14:41 Follow up: Response: No adverse reaction ph 13:54 Drug: D5-1/2 NS IV 1000 ml IV at 100 ml/hr continuous Route: IV; Rate: 100 ml/hr; Site: af3 left antecubital; 14:42 Follow up: Response: No adverse reaction; IV Status: Completed infusion ph 18:51 Follow up: Response: No adverse reaction; IV Status: Order to discontinue infusion af3 17:51 Not Given (Other Intervention Used): [id number] ml, sodium bicarbonate ivp 100 meq IV at af3 125 ml/hr continuous Medication: 13:33 VIS not applicable for this client. ph Intake: 14:16 IV: 1000ml; Total: 1000ml. af3 14:16 IV: 1000ml; Total: 2000ml. af3 Outcome: 15:42 Decision to Hospitalize by Provider. marky 19:40 Patient left the ED. kt5 NIH Stroke Scale - NIH Stroke Score Date: 12/22/2024 Time: 15:32 Total Score = 0 10. Dysarthria (speech clarity - read or repeat words) - 0(Normal) 11. Extinction and Inattention (visual/tactile/auditory/spatial/personal) - 0(No abnormality) 1a. Level of Consciousness (LOC) - 0(Alert) 1b. Level of Consciousness (LOC) (Month \T\ Age) - 0(Both) 1c. LOC Commands (Open \T\ Closes Eyes/Nuclear Security Officer) - 0(Both) 2. Best Gaze (Lateral Gaze Paresis) - 0(Normal) 3. Visual Field Loss - 0(No visual loss) 4. Facial Palsy - 0(Normal) 5a. Left Arm: Motor (10-second hold) - 0(No drift) 5b. Right Arm: Motor (10-second hold) - 0(No drift) 6a. Left Leg: Motor (5-second hold - always test supine) - 0(No drift) 6b. Right Leg: Motor (5-second hold - always test supine) - 0(No drift) 7. Limb Ataxia (finger/nose \T\ heel/celis - test with eyes open) - 0(Absent) 8. Sensory Loss (pinprick arms/legs/face) - 0(Normal) 9. Best Language: Aphasia (description/naming/reading) - 0(No aphasia) Initials: [facility] Signatures: Dispatcher [employer] Kevin Aguilar MD MD cha Hall, Patricia, RN RN Tri Tejada Ashley, RN RN af3 Cuate, Monica [email or web address] Conchita Moreno, RN RN kt5
[2024-12-22] MEDS: D5W 1,000 ML with NA BICARB 8.4% 100 MEQ IV SCH (16:00)
[2024-12-22] MEDS ORDERED: ONDANSETRON 4 MG/2 ML VIAL IV PRN (16:41)
[2024-12-22] MEDS: HEPARIN 5000 UNIT/ML 1 ML VIAL SQ SCH (17:00)
--- NOTE | 2024-12-22 17:19 | P.HP ---
Certification for Inpatient Patient admitted to: Observation With expected LOS: <2 Midnights Patient will require the following post-hospital care: None Practitioner: I am a practitioner with admitting privileges, knowledge of patient current condition, hospital course, and medical plan of care. Services: Services provided to patient in accordance with Admission requirements found in Title 42 Section 412.3 of the Code of Federal Regulations Patient History Date of Service: 12/22/24 Reason for admission: Acute toxic encephalopathy secondary to alcohol consumption History of Present Illness: Patient is a 59-year-old male currently altered and poor historian however based off chart review patient has past medical history of bipolar, Kaveh's, h ypertension, hyperlipidemia, and renal disease who reports to the ED with altered mental status and hypoglycemia secondary to alcohol use. CT of head and chest x-ray completed while in the ED with no acute findings. Patient was hypoglycemic with blood glucose of 55, creatinine 3.64, BNP 2498, CO2 15, and anion gap 20.4. Patient was started on sodium bicarb drip while in the ED and is now being admitted for EtOH due to alcohol intoxication. Allergies Penicillins Adverse Reaction (Severe, Verified 05/15/24 23:15) Anaphylaxis Sulfa (Sulfonamide Antibiotics) Adverse Reaction (Severe, Verified 05/15/24 23:15) Anaphylaxis Home medications list reviewed: Yes Home Medications: Escitalopram [Lexapro*] 20 mg PO BEDTIME 06/17/17 Quetiapine [Seroquel*] 400 mg PO BID 06/17/17 Trazodone HCl [Desyrel] 100 mg PO BEDTIME 06/17/17 Buspirone HCl [Buspar] 10 mg PO BEDTIME 05/15/24 Docusate Sodium [Stool Softener] 50 mg PO DAILY 05/15/24 Multivitamin 1 each PO DAILY 05/15/24 Rosuvastatin Calcium 20 mg PO BEDTIME 05/15/24 Apixaban [Eliquis] 5 mg PO BID #60 tab 05/17/24 Esomeprazole Mag Trihydrate [Nexium] 40 mg PO BID #60 tab 05/17/24 - Past Medical/Surgical History Diabetic: No -: Bipolar Disorder -: Renal Disease -: Branch's Disease -: Hypertension -: hyperlipidemia -: RLE DVT - Family History Father -: Heart disease - Social History Smoking Status: Unknown if ever smoked Alcohol use: No CD- Drugs: No Caffeine use: No Place of Residence: Home Review of Systems Neurological: Confusion Physical Examination - Physical Exam General: In no apparent distress (Smells of alcohol ), Confused HEENT: Atraumatic, PERRLA, Mucous membr. moist/pink, EOMI, Sclerae nonicteric Neck: Supple, 2+ carotid pulse no bruit, No LAD, Without JVD or thyroid abnormality Respiratory: Diminished Cardiovascular: Regular rate/rhythm, Normal S1 S2 Capillary refill: <2 Seconds Gastrointestinal: Normal bowel sounds, No tenderness Musculoskeletal: No tenderness Integumentary: No rashes Neurological: Normal speech External genitalia: Deferred Rectal: Deferred - Studies Laboratory Data (last 24 hrs) 12/22/24 12/22/24 12/22/24 12:06 12:06 12:06 WBC 9.20 Hgb 9.1 L Hct 28.6 L Plt Count 287 PT 11.6 INR 1.03 APTT 25.8 L Sodium 145 Potassium 4.4 BUN 41 H Creatinine 3.64 H Glucose 55 L Magnesium 2.0 Total Bilirubin 0.6 AST 48 H ALT 49 Alkaline Phosphatase 71 Assessment and Plan - Plan Patient is a 59-year-old male currently altered and poor historian however based off chart review patient has past medical history of bipolar, Branch's, hypertension,hyperlipidemia, and renal disease who reports to the ED with altered mental status and hypoglycemia secondary to alcohol use. Acute toxic encephalopathy secondary to alcohol consumption Alcohol intoxication Alcohol withdrawal syndrome - Ethanol level on admission 300. - CIWA protocol ordered, will monitor. - Continue folic acid 1 mg once daily. - Continue thiamine 200 mg once daily. - Fall/aspiration/seizure precaution in place. - Monitor serum electrolytes and replete as needed - Will provide counseling and resources by the executive secretary social welfare if patient is interested. - CT of head/brain without acute findings - Chest x-ray without acute finding - Urinalysis ordered, pending result and needs follow-up - Consider escalation to ICU if patient has CIWA score greater than 8 or frequent utilization of Ativan Hypoglycemia - BG 55 while in ED - BG monitoring q4h and PRN for now - Received Dextrose while in the ED Acute on chronic renal failure - Most likely due to dehydration/EtOH - unknown baseline kidney function - Current creat 3.64, co2 15 and anion gap 20.4, continue to monitor - NS @125mL/hr for now - Consider nephrology consult if worsening Hx of HTN Hx of HLD - Monitor blood pressure per unit protocol - Continue home medications once verified and appropriate Hx of bipolar - Continue home medications once verified and appropriate DVT Ppx: Heparin GI Ppx: Protonix Code Status: Presumed Full Code Discharge Plan: Home Plan to discharge in: 48 Hours - Advance Directives Does patient have a Living Will: No Does patient have a Durable POA for Healthcare: No - Code Status/Comfort Care Code Status Assessed: Yes (Presumed full code) Critical Care: No Time Spent Managing Pts Care (In Minutes): 41
[2024-12-22 18:22] LABS: METHAMPHETAM NEGATIVE (NEGATIVE); Sqamous Epithelial <5 /HPF (None Seen); THC Cannibis POSITIVE (NEGATIVE); Urine Culture Reflex Order NOT NEEDED; Urine Microscopic Reflex YN ORDER UMIC
[2024-12-22 19:39] VITALS: BMI 16.1
[2024-12-22 20:04] VITALS: O2SAT 96
[2024-12-22] MEDS: LORazepam 2 MG/ML VIAL IV PRN (21:12)
[2024-12-22] MEDS: NA CHLORIDE 0.9% 1,000 ML IV SCH (21:47)
[2024-12-23] MEDS: PANTOPRAZOLE 40MG TABLET PO SCH (09:23)
[2024-12-23] MEDS ORDERED: HOME MED 1 EA UNK (Trazodone Hcl [Desyrel] 100 MG Tablet) PO PRN (10:25)
--- NOTE | 2024-12-23 10:40 | P.PN ---
Subjective Date of Service: 12/23/24 Chief Complaint: Acute toxic encephalopathy secondary to alcohol consumption Subjective: No new changes, Tolerating diet Patient was examined while sitting in bed during breakfast. Patient with slight improvement on mentation and able to carry on more conversation today compared to previous day. No overnight events reported. Review of Systems 10-point ROS is otherwise unremarkable Neurological: Confusion Physical Examination - Vital Signs Temperature: 97.5 F Blood Pressure: 114/79 Pulse: 70 Respirations: 18 Pulse Ox (%): 100 - Physical Exam General: Cooperative, Confused HEENT: Atraumatic, PERRLA, EOMI Neck: Supple, JVD not distended Respiratory: Clear to auscultation bilaterally, Normal air movement Cardiovascular: Regular rate/rhythm, Normal S1 S2 Capillary refill: <2 Seconds Gastrointestinal: Normal bowel sounds, No tenderness Musculoskeletal: No tenderness Integumentary: No rashes Neurological: Normal speech, Normal tone, Normal affect - Studies Laboratory Data (last 24 hrs) 12/22/24 12/22/24 12/22/24 12:06 12:06 12:06 WBC 9.20 Hgb 9.1 L Hct 28.6 L Plt Count 287 PT 11.6 INR 1.03 APTT 25.8 L Sodium 145 Potassium 4.4 BUN 41 H Creatinine 3.64 H Glucose 55 L Magnesium 2.0 Total Bilirubin 0.6 AST 48 H ALT 49 Alkaline Phosphatase 71 Assessment And Plan - Plan Patient is a 59-year-old male currently altered and poor historian however based off chart review patient has past medical history of bipolar, depression, anxiety, [place]'s, hypertension,hyperlipidemia, DVT/PE, and renal disease who reports to the ED with altered mental status and hypoglycemia secondary to alcohol use. Acute toxic encephalopathy secondary to alcohol consumption Alcohol intoxication Alcohol withdrawal syndrome - Ethanol level on admission 300. - CIWA protocol ordered, will monitor. - Continue folic acid 1 mg once daily - Continue thiamine 100 mg once daily - Fall/aspiration/seizure precaution in place. - Monitor serum electrolytes and replete as needed - Will provide counseling and resources by the social work assistant if patient is interested. - CT of head/brain without acute findings - Chest x-ray without acute finding - Urinalysis ordered, pending result and needs follow-up - Consider escalation to ICU if patient has CIWA score greater than 8 or frequent utilization of Ativan - PT and CM consults ordered. Patient may need placement Hypoglycemia - BG 55 while in ED - BG monitoring q4h and PRN for now - Received Dextrose while in the ED Acute on chronic renal failure - Most likely due to dehydration/EtOH - Per chart review, previous baseline kidney function creat of 1.5 - Current creat 3.64, co2 15 and anion gap 20.4, continue to monitor - NS @125mL/hr for now - Consider nephrology consult if worsening Hx of HTN Hx of HLD - Monitor blood pressure per unit protocol - Continue home medication Rosuvastatin - Discussed with pharmacy, and no recent antihypertensives were prescribed or filled Hx of bipolar Hx of Depression Hx of Anxiety - Continue home medications Buspar/Lexapro - Continue Trazodone PRN at bedtime Hx of DVT/PE - Per chart review, 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
[2024-12-23] MEDS: THIAMINE HCL 100 MG TABLET PO SCH (11:00)
[2024-12-23] MEDS: FOLIC ACID 1 MG TABLET PO SCH (11:00)
[2024-12-23 14:40] LABS: Absolute Lymphocytes (CBC) 2.3 K/uL (0.7-4.9); Hematocrit 26.7 % (39.6-49.0); Hemoglobin 8.6 g/dL (13.6-17.9); MCH 28.6 pg (27.0-35.0); MCHC 32.0 g/dL (32.0-36.0); MCV 89.4 fL (80-100); MPV 7.4 fL (7.6-11.3); Nucleated RBC Absolute Count 0.0 (0-0); Nucleated Red Blood Cells % 0.1 % (0-0); RBC Red Blood Cell Count 2.99 M/uL (4.33-5.43); White Blood Count 7.90 thou/uL (4.3-10.9)
[2024-12-23 16:07] LABS: ALT/SGPT 46.0 U/L (16-61); AST/SGOT 30.0 U/L (15-37); Albumin 3.1 g/dL (3.4-5.0); Albumin/Globulin Ratio 1.1 (1.1-1.8); Alkaline Phosphatase 56.0 U/L (45-117); Anion Gap 9.9 mEq/L (5.0-15.0); BUN Blood Urea Nitrogen 30.0 mg/dL (7-18); Globulin 2.7 g/dL (2.3-3.5); Glucose Level 108.0 mg/dL (74-106); Magnesium 1.8 mg/dL (1.6-2.4); Potassium 3.9 mEq/L (3.5-5.1)
[2024-12-23 16:47] LABS: Base Excess, VBG -2.7 mmol/L (-2.0-3.0); HCO3, Venous Blood Gas 24.0 mmol/L (21.0-29.0); O2 Saturation, VBG 88.0 % (40.0-70.0); PCO2, Venous Blood Gas 51 mmHg (41-51); PH, Venous Blood Gas 7.28 (7.32-7.42); PO2, Venous Blood Gas 62 mmHg (25-40)
[2024-12-23] MEDS: MAGNESIUM SULFATE 1 gm IVPB 1 GM/100 ML BAG IV ONE (17:12)
[2024-12-23] MEDS: BUSPIRONE HCL 5 MG TABLET PO SCH (20:16)
[2024-12-23] MEDS: APIXABAN 5 MG TABLET PO SCH (20:17)
[2024-12-23] MEDS: ESCITALOPRAM 20 MG TAB PO SCH (20:17)
[2024-12-23] MEDS: ROSUVASTATIN 10 MG TAB PO SCH (20:17)
[2024-12-23] MEDS: TRAZODONE 50 MG TABLET PO PRN (20:18)
[2024-12-23] MEDS ORDERED: HOME MED 1 EA UNK (Buspirone Hcl [Buspar] 10 MG Tablet) PO SCH (21:00)
[2024-12-23] MEDS ORDERED: HOME MED 1 EA UNK (Rosuvastatin Calcium [Rosuvastatin Calcium] 20 MG Tablet) PO SCH (21:00)
[2024-12-23] MEDS: LORAZEPAM 0.5 MG TABLET PO PRN (21:25)
[2024-12-24] MEDS: LORazepam 2 MG/ML VIAL ONE (00:22)
[2024-12-24] MEDS: LORazepam 2 MG/ML VIAL IV ONE ×2 (00:29→15:45)
[2024-12-24] MEDS ORDERED: HOME MED 1 EA UNK (Docusate Sodium [Stool Softener] 50 MG Capsule) PO SCH (09:00)
[2024-12-24] MEDS: DOCUSATE NA 100 MG CAP PO SCH (09:02)
--- NOTE | 2024-12-24 10:53 | P.PN ---
Subjective Date of Service: 12/24/24 Chief Complaint: Acute toxic encephalopathy secondary to alcohol consumption Subjective: No new changes, Improving Patient was examined while sitting in bed during breakfast. Patient continues to progress with improved mentation. Discussed the need for morning labs to be drawn with bedside RN. No overnight events reported Review of Systems 10-point ROS is otherwise unremarkable Neurological: Confusion Physical Examination - Vital Signs Temperature: 98.2 F Blood Pressure: 100/60 Pulse: 75 Respirations: 18 Pulse Ox (%): 99 - Physical Exam General: Alert, In no apparent distress, Confused (improved from previous day) HEENT: Atraumatic, PERRLA, EOMI Neck: Supple Respiratory: Clear to auscultation bilaterally, Normal air movement Cardiovascular: Regular rate/rhythm, Normal S1 S2 Capillary refill: <2 Seconds Gastrointestinal: Normal bowel sounds Musculoskeletal: No tenderness Integumentary: No rashes Neurological: Normal speech, Normal tone, Normal affect External genitalia: No edema Rectal: Deferred - Studies Laboratory Data (last 24 hrs) 12/23/24 12/23/24 12/23/24 Unknown 14:32 14:32 WBC 7.90 Hgb 8.6 L Hct 26.7 L Plt Count 246 Sodium 144 Potassium 3.9 BUN 30 H Creatinine 2.58 H Glucose 108 H Phosphorus 2.5 Magnesium Cancelled 1.8 Total Bilirubin 0.3 AST 30 ALT 46 Alkaline Phosphatase 56 D Assessment And Plan - Plan Patient is a 59-year-old male currently altered and poor historian however based off chart review patient has past medical history of bipolar, depression, anxiety, Kaveh's, hypertension,hyperlipidemia, DVT/PE, and renal disease who reports to the ED with altered mental status and hypoglycemia secondary to alcohol use. Acute toxic encephalopathy secondary to alcohol consumption Alcohol intoxication Alcohol withdrawal syndrome - Ethanol level on admission 300. - CIWA protocol ordered, will monitor. - Continue folic acid 1 mg once daily - Continue thiamine 100 mg once daily - Fall/aspiration/seizure precaution in place. - Monitor serum electrolytes and replete as needed - Will provide counseling and resources by the director of social work if patient is interested. - CT of head/brain without acute findings - Chest x-ray without acute finding - Urinalysis ordered, pending result and needs follow-up - Consider escalation to ICU if patient has CIWA score greater than 8 or frequent utilization of Ativan - PT and CM consults ordered. Patient may need placement. Hypoglycemia, resolved - BG 55 while in ED - BG monitoring q4h and PRN for now - Received Dextrose while in the ED - Continue to encourage oral intake Acute on chronic renal failure - Most likely due to dehydration/EtOH - Per chart review, previous baseline kidney function creat of 1.5 - Initial creat 3.64, co2 15 and anion gap 20.4, trending down - NS @125mL/hr for now - Consider nephrology consult if worsening Hx of HTN Hx of HLD - Monitor blood pressure per unit protocol - Continue home medication Rosuvastatin - Discussed with pharmacy, and no recent antihypertensives were prescribed or filled Hx of bipolar Hx of Depression Hx of Anxiety - Continue home medications Buspar/Lexapro - Continue Trazodone PRN at bedtime Hx of DVT/PE - Per chart review, 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
[2024-12-24 16:39] LABS: Absolute Lymphocytes (CBC) 2.0 K/uL (0.7-4.9); Hematocrit 25.2 % (39.6-49.0); Hemoglobin 7.7 g/dL (13.6-17.9); MCH 28.3 pg (27.0-35.0); MCHC 30.4 g/dL (32.0-36.0); MCV 93.1 fL (80-100); MPV 7.8 fL (7.6-11.3); Nucleated RBC Absolute Count 0.0 (0-0); Nucleated Red Blood Cells % 0.2 % (0-0); RBC Red Blood Cell Count 2.71 M/uL (4.33-5.43); White Blood Count 6.70 thou/uL (4.3-10.9)
[2024-12-24 16:40] LABS: Base Excess, VBG -3.0 mmol/L (-2.0-3.0); HCO3, Venous Blood Gas 23.9 mmol/L (21.0-29.0); PCO2, Venous Blood Gas 52.0 mmHg (41-51); PH, Venous Blood Gas 7.27 (7.32-7.42); PO2, Venous Blood Gas 66.0 mmHg (25-40)
[2024-12-24 16:41] LABS: Blood Gas Inspired Oxygen, VBG 100.0 %; O2 Saturation, VBG 89.6 % (40.0-70.0)
[2024-12-24 16:52] LABS: Anion Gap 7.9 mEq/L (5.0-15.0); BUN Blood Urea Nitrogen 25.0 mg/dL (7-18); Glucose Level 99.0 mg/dL (74-106); Magnesium 2.0 mg/dL (1.6-2.4); Potassium 3.9 mEq/L (3.5-5.1)
[2024-12-24] MEDS: Ringers Lactate 1,000 ML IV SCH (17:45)
[2024-12-24 17:57] VITALS: BP 92/57; TEMP 98
[2024-12-24] MEDS ORDERED: HALOPERIDOL LACT 5 MG/ML INJ IM PRN (19:09)
--- NOTE | 2024-12-24 19:48 | P.PN ---
Date of Service: 12/24/24 Patient had a code crystal called on him this evening, I responded and had a lengthy conversation with the patient approximately 35 minutes on the importance of his health, his kidneys, and explained to him that he still needed some more medical treatment, but he was very adamant that he has to leave. Patient states he felt much better compared to when he came into the ER and got admitted, and states nothing will make him stay he has to go home. Patient refused staying in the hospital for the night and states if he is not discharged he is going to leave AGAINST MEDICAL ADVICE which he did. Order some medication to help him relax but he refused. Patient was very coherent, he was able to to give his address where he lives, he knew the month of the year and the date, and president of the country. There was nothing else I could do.
== END 2024-12-24 20:00 | disposition left against medical advice (07) | DRG 92 ==
LOC: ER 11:48 → 2ND 16:40 → OBSVTOIN 12-24 06:48
PROVIDERS: ADMIT Internal Medicine; ATTEND Hospitalist
DX: G92.8 Other toxic encephalopathy (principal); F10.239 Alcohol dependence with withdrawal, unspecified; N17.9 Acute kidney failure, unspecified; F10.229 Alcohol dependence with intoxication, unspecified; I12.9 Hypertensive chronic kidney disease with stage 1 through stage 4 chronic kidney disease, or unspecified chronic kidney disease; N18.9 Chronic kidney disease, unspecified; E86.0 Dehydration; E16.1 Other hypoglycemia; E78.5 Hyperlipidemia, unspecified; F31.9 Bipolar disorder, unspecified; Z88.2 Allergy status to sulfonamides; Z88.0 Allergy status to penicillin; Z79.01 Long term (current) use of anticoagulants; Z53.29 Procedure and treatment not carried out because of patient's decision for other reasons; Z79.899 Other long term (current) drug therapy; Z86.718 Personal history of other venous thrombosis and embolism; Y90.0 Blood alcohol level of less than 20 mg/100 ml
CPT/HCPCS: 36415; 70450; 71045; 71250; 72125; 74176; 80048; 80053; 80076; 80143; 80178; 80179; 80307; 81001; 82077; 82140; 82803; 82947; 83605; 83735; 83880; 84100; 84443; 84484; 85025; 85610; 85730; 86140; 87040; 93005; 96365; 96366; 96368; 96375; 99284; G0378; J1644; J3411; J3475; J7030; J7120; J7799